=== PATIENT | female | born 1955 | race Caucasian/White ===

== ENCOUNTER 2017-11-06 10:49 | Outpatient (CLI) | payer MEDICARE, MEDICAID, SELFPAY ==
[2017-11-06 11:24] LABS: Abs Immature Grans 0.01 k/cumm (0.0-0.09); Absolute Basophil Count 0.03 k/cumm (0.0-0.2); Absolute Eosinophil Count 0.11 k/cumm (0.0-0.7); Absolute Lymphocyte Count 1.47 k/cumm (1.2-3.4); Absolute Monocyte Count 0.36 k/cumm (0.11-0.7); Absolute Neutrophil Count 2.53 k/cumm (1.2-6.7); Basophils % 0.7; Eosinophils % 2.4; HCT 40.4 % (36.0-46.0); HGB 14.1 g/dL (12.0-15.5); Immature Grans % 0.2; Lymphocytes % 32.6; Mean Corp. HGB Concentration 34.9 g/dL (32.0-36.0); Mean Corpuscular Hemoglobin 35.5 pg (27.0-33.0); Mean Corpuscular Volume 101.8 fL (80-95); Mean Platelet Volume 8.1 fL (8.0-11.0); Neutrophils % 56.1; Platelet Count 237 x1000/uL (130-400); RBC 3.97 m/cumm (4.00-5.20); RBC Distribution Width 12.7 % (11.7-14.6); White Blood Cell Count 4.51 k/cumm (4.4-10.8)
[2017-11-06 12:22] LABS: ALT 20 U/L (12-78); AST 15 U/L (15-37); Albumin 3.5 g/dL (3.4-5.0); Alkaline Phosphatase 80 U/L (46-116); Anion Gap 6.2 mmol/L (3-11); BUN 8 mg/dL (7-18); Bilirubin, Total 0.4 mg/dL (0.2-1.0); CO2 30.8 mmol/L (21.0-32.0); CREATININE 0.75 mg/dL (0.55-1.02); Calcium 8.7 mg/dL (8.5-10.1); Chloride 103 mmol/L (98-107); Glucose 96 mg/dL (70-100); PHOSPHORUS 4.1 mg/dL (2.6-4.7); Sodium 140 mmol/L (136-145); Total Protein 7.1 g/dL (6.4-8.2)
[2017-11-08 08:46] LABS: CD3 93 % (62-87); CD4 10 % (35-63); CD8 84 % (10-35)
[2017-11-09 14:49] LABS: HIV-1 RNA Quantification <20 copies/mL (UNDECT)
== END 2017-11-06 11:09 ==
PROVIDERS: Nurse Practitioner Family; PCP Internal Medicine Sleep Medicine; Visit Provider Internal Medicine Infectious Disease
DX: B20 Human immunodeficiency virus [HIV] disease (principal); Z79.899 Other long term (current) drug therapy
CPT/HCPCS: 36415; 80053; 87536; 84100; 85025; 86359; 86360

== ENCOUNTER 2018-04-12 09:10 | Outpatient (CLI) | payer MEDICARE, MEDICAID, SELFPAY ==
[2018-04-12 10:02] LABS: Abs Immature Grans 0.02 k/cumm (0.0-0.09); Absolute Basophil Count 0.02 k/cumm (0.0-0.2); Absolute Eosinophil Count 0.11 k/cumm (0.0-0.7); Absolute Lymphocyte Count 1.29 k/cumm (1.2-3.4); Absolute Neutrophil Count 3.23 k/cumm (1.2-6.7); Basophils % 0.4; Eosinophils % 2.2; HCT 39.4 % (36.0-46.0); HGB 13.7 g/dL (12.0-15.5); Immature Grans % 0.4; Mean Corp. HGB Concentration 34.8 g/dL (32.0-36.0); Mean Corpuscular Hemoglobin 33.8 pg (27.0-33.0); Mean Corpuscular Volume 97.3 fL (80-95); Mean Platelet Volume 8.8 fL (8.0-11.0); Platelet Count 207 x1000/uL (130-400); RBC 4.05 m/cumm (4.00-5.20); RBC Distribution Width 11.9 % (11.7-14.6); White Blood Cell Count 4.97 k/cumm (4.4-10.8)
[2018-04-12 10:45] LABS: ALT 32 U/L (12-78); AST 37 U/L (15-37); Albumin 3.2 g/dL (3.4-5.0); Alkaline Phosphatase 72 U/L (46-116); Anion Gap 10.6 mmol/L (3-11); BUN 5 mg/dL (7-18); Bilirubin, Total 0.4 mg/dL (0.2-1.0); CO2 27.4 mmol/L (21.0-32.0); CREATININE 0.88 mg/dL (0.55-1.02); Chloride 98 mmol/L (98-107); Cholesterol 184 mg/dL (50-200); Glucose 95 mg/dL (70-100); HDL Cholesterol 49 mg/dL (40-60); LDL CHOLESTEROL 117 mg/dL (<100); Potassium 4.5 mmol/L (3.5-5.1); Sodium 136 mmol/L (136-145); Total Protein 7.5 g/dL (6.4-8.2); Triglyceride 78 mg/dL (30-150)
[2018-04-13 15:39] LABS: CD3 92 % (62-87); CD4 8 % (35-63); CD8 83 % (10-35)
[2018-04-16 15:27] LABS: HIV-1 RNA Quantification 89 copies/mL (UNDECT)
== END 2018-04-12 09:30 ==
PROVIDERS: PCP Internal Medicine Infectious Disease; Visit Provider Internal Medicine Infectious Disease
DX: B20 Human immunodeficiency virus [HIV] disease (principal); Z79.899 Other long term (current) drug therapy
CPT/HCPCS: 36415; 80053; 80061; 83721; 87536; 85025; 86359; 86360

== ENCOUNTER 2018-04-16 14:43 | Outpatient (CLI) | payer MEDICARE, MEDICAID, SELFPAY | END 2018-04-16 15:03 | PROVIDERS: PCP Internal Medicine Infectious Disease; Referring Provider Nurse Practitioner Family; Visit Provider Internal Medicine Infectious Disease | DX: B20 Human immunodeficiency virus [HIV] disease (principal); Z79.899 Other long term (current) drug therapy | CPT/HCPCS: 99215 ==

== ENCOUNTER 2018-06-20 00:47 | Outpatient (CLI) | payer MEDICARE, MEDICAID, SELFPAY ==
--- NOTE | 2018-06-20 13:09 | DI.MAMMO_ITS ---
SYMPTOMS/DIAGNOSIS: SCREENING, Z12.31 MAMMOGRAMS: Mammograms were interpreted according to the usual protocol including computer analysis with CAD system, tomosynthesis and C view imaging. The breast tissue is predominantly of fatty radiodensity. There is no mass. There are no suspicious calcifications and there has been no significant interval change when compared with prior images. SUMMARY: No evidence of malignancy, category 1. Yearly screening mammography is recommended. Breast density category A. MQSA ASSESSMENT OF FINDINGS: Negative. Category 1. Patient will receive a letter notifying them of these results. BI-RAD category A. The breasts are almost entirely fatty.
== END 2018-06-20 01:07 ==
PROVIDERS: PCP Nurse Practitioner; Visit Provider Nurse Practitioner
DX: Z12.31 Encounter for screening mammogram for malignant neoplasm of breast (principal)
CPT/HCPCS: 77063; 77067

== ENCOUNTER 2018-06-26 14:19 | Outpatient (REF) | payer MEDICARE, MEDICAID, SELFPAY ==
--- NOTE | 2018-06-26 13:30 | PAPFT_PTH ---
PATIENT: Josiane Pacheco LOC: [facility] U#:[id number] AGE/SX: 62/F ROOM: RE06/26/[address]: Sarah Alejo APRN : 1955 BED: DIS: 06/26/2018 SPEC #: [id number] RECD: 06/26/18 18:04 STATUS: IVANNA STAPLES #: [id number] STEPH: 06/26/18 13:[address]: Sarah Alejo DEPT: [facility] Cytology RECD BY: Meg Rivera Tissues: 1 - CX/ENDOCX FOR PAP SMEARS Procedures: PAP THIN PREP/UVM Screening HPV DNA PROBE Comments: [id number]
== END 2018-06-26 14:39 ==
LOC: LBN 14:19
PROVIDERS: PCP Nurse Practitioner; Visit Provider Nurse Practitioner
DX: Z12.4 Encounter for screening for malignant neoplasm of cervix (principal); Z11.51 Encounter for screening for human papillomavirus (HPV)
CPT/HCPCS: 88142; 87624

== ENCOUNTER → 2018-08-02 10:17 | Outpatient (BNVA) | payer MEDICARE, MEDICAID, SELFPAY | PROVIDERS: PCP Nurse Practitioner; Referring Provider Nurse Practitioner; Visit Provider Psychiatry & Neurology Neurology | DX: G40.119 Localization-related (focal) (partial) symptomatic epilepsy and epileptic syndromes with simple partial seizures, intractable, without status epilepticus (principal); R51 Headache; G43.109 Migraine with aura, not intractable, without status migrainosus; G44.40 Drug-induced headache, not elsewhere classified, not intractable; G47.00 Insomnia, unspecified | CPT/HCPCS: 99205; 99215 ==

== ENCOUNTER 2018-09-19 09:23 | Outpatient (CLI) | payer MEDICARE, MEDICAID, SELFPAY ==
[2018-09-19 10:12] LABS: HCT 40.4 % (36.0-46.0); HGB 14.5 g/dL (12.0-15.5); Mean Corp. HGB Concentration 35.9 g/dL (32.0-36.0); Mean Corpuscular Hemoglobin 35.2 pg (27.0-33.0); Mean Corpuscular Volume 98.1 fL (80-95); Mean Platelet Volume 9.2 fL (8.0-11.0); Platelet Count 121 x1000/uL (130-400); RBC 4.12 m/cumm (4.00-5.20); RBC Distribution Width 12.3 % (11.7-14.6); White Blood Cell Count 3.28 k/cumm (4.4-10.8)
[2018-09-19 10:29] LABS: Absolute Neutrophil Count 1.54 k/cumm (1.2-6.7); Atypical Lymphocytes % 3
[2018-09-19 10:30] LABS: Absolute Basophil Count 0.03 k/cumm (0.0-0.2); Absolute Eosinophil Count 0.03 k/cumm (0.0-0.7); Absolute Lymphocyte Count 1.41 k/cumm (1.2-3.4); Absolute Monocyte Count 0.26 k/cumm (0.11-0.7); Diff Comment Manual Differential; RBC Morphology Normal
[2018-09-19 11:05] LABS: ALT 74 U/L (12-78); AST 56 U/L (15-37); Albumin 3.6 g/dL (3.4-5.0); Alkaline Phosphatase 73 U/L (46-116); Anion Gap 10.5 mmol/L (3-11); BUN 9 mg/dL (7-18); Bilirubin, Total 0.5 mg/dL (0.2-1.0); CO2 24.5 mmol/L (21.0-32.0); CREATININE 0.85 mg/dL (0.55-1.02); Calculated LDL 100 mg/dL; Chloride 99 mmol/L (98-107); Cholesterol 180 mg/dL (50-200); Glucose 96 mg/dL (70-100); HDL Cholesterol 70 mg/dL (40-60); Potassium 4.3 mmol/L (3.5-5.1); Sodium 134 mmol/L (136-145); Total Protein 7.1 g/dL (6.4-8.2); Triglyceride 53 mg/dL (30-150)
[2018-09-19 11:24] LABS: Calcium 8.6 mg/dL (8.5-10.1)
[2018-09-20 16:17] LABS: HIV-1 RNA Quantification 3109 copies/mL (UNDECT)
[2018-09-21 07:41] LABS: CD3 92 % (62-87); CD4 5 % (35-63); CD8 85 % (10-35)
== END 2018-09-19 09:43 ==
PROVIDERS: PCP Nurse Practitioner; Referring Provider Nurse Practitioner Family; Visit Provider Internal Medicine Infectious Disease
DX: B20 Human immunodeficiency virus [HIV] disease (principal); Z79.899 Other long term (current) drug therapy
CPT/HCPCS: 36415; 80053; 80061; 83721; 87536; 85025; 86359; 86360

== ENCOUNTER 2018-09-24 09:49 | Outpatient (CLI) | payer MEDICARE, MEDICAID, SELFPAY | END 2018-09-24 10:09 | PROVIDERS: PCP Nurse Practitioner; Referring Provider Nurse Practitioner Family; Visit Provider Internal Medicine Infectious Disease | DX: B20 Human immunodeficiency virus [HIV] disease (principal); Z79.899 Other long term (current) drug therapy | CPT/HCPCS: 99215 ==

== ENCOUNTER 2018-10-01 08:41 | Outpatient (CLI) | payer MEDICARE, MEDICAID, SELFPAY ==
[2018-10-06 15:35] LABS: Emitricitabine RESIST; HIV-1 Genotypic PR-RT Drug Res INTERP; Lopinavir and Ritonavir SUSC; Tipranavir andRitonavir SUSC
== END 2018-10-01 09:01 ==
PROVIDERS: PCP Nurse Practitioner; Visit Provider Nurse Practitioner Family
DX: B20 Human immunodeficiency virus [HIV] disease (principal); Z79.899 Other long term (current) drug therapy
CPT/HCPCS: 36415; 87901

== ENCOUNTER 2018-10-15 11:06 | Outpatient (CLI) | payer MEDICARE, MEDICAID, SELFPAY | END 2018-10-15 11:26 | PROVIDERS: PCP Nurse Practitioner; Referring Provider Nurse Practitioner Family; Visit Provider Nurse Practitioner Family | DX: B20 Human immunodeficiency virus [HIV] disease (principal); Z79.899 Other long term (current) drug therapy; R13.10 Dysphagia, unspecified | CPT/HCPCS: 99215 ==

== ENCOUNTER → 2018-11-15 14:09 | Outpatient (BNVA) | payer MEDICARE, MEDICAID, SELFPAY | PROVIDERS: PCP Nurse Practitioner; Visit Provider Psychiatry & Neurology Neurology | DX: G40.119 Localization-related (focal) (partial) symptomatic epilepsy and epileptic syndromes with simple partial seizures, intractable, without status epilepticus (principal); G43.109 Migraine with aura, not intractable, without status migrainosus; G44.40 Drug-induced headache, not elsewhere classified, not intractable; G31.84 Mild cognitive impairment of uncertain or unknown etiology | CPT/HCPCS: 99215 ==

== ENCOUNTER 2019-03-27 10:53 | Outpatient (CLI) | payer MEDICARE, MEDICAID, SELFPAY ==
[2019-03-27 11:36] LABS: Absolute Basophil Count 0.01 k/cumm (0.0-0.2); Absolute Eosinophil Count 0.06 k/cumm (0.0-0.7); Absolute Lymphocyte Count 1.04 k/cumm (1.2-3.4); Absolute Monocyte Count 0.22 k/cumm (0.11-0.7); Absolute Neutrophil Count 1.63 k/cumm (1.2-6.7); Basophils % 0.3; HGB 14.3 g/dL (12.0-15.5); Lymphocytes % 35.1; Mean Corp. HGB Concentration 34.9 g/dL (32.0-36.0); Mean Corpuscular Volume 100.2 fL (80-95); Mean Platelet Volume 8.9 fL (8.0-11.0); Monocytes % 7.4; Neutrophils % 55.2; Platelet Count 128 x1000/uL (130-400); RBC 4.09 m/cumm (4.00-5.20); RBC Distribution Width 13.3 % (11.7-14.6); White Blood Cell Count 2.96 k/cumm (4.4-10.8)
[2019-03-27 12:41] LABS: ALT 33 U/L (14-59); AST 31 U/L (15-37); Albumin 3.5 g/dL (3.4-5.0); Alkaline Phosphatase 65 U/L (46-116); Anion Gap 8.1 mmol/L (3-11); BUN 9 mg/dL (7-18); Bilirubin, Total 0.5 mg/dL (0.2-1.0); CO2 26.9 mmol/L (21.0-32.0); CREATININE 0.94 mg/dL (0.55-1.02); Calcium 8.6 mg/dL (8.5-10.1); Chloride 105 mmol/L (98-107); Glucose 108 mg/dL (74-106); Sodium 140 mmol/L (136-145); Total Protein 6.6 g/dL (6.4-8.2)
[2019-03-28 15:56] LABS: HIV-1 RNA Quantification 3939 copies/mL (Undetected)
[2019-03-28 16:52] LABS: CD3 92 % (62-87); CD4 6 % (35-63); CD8 85 % (10-35)
== END 2019-03-27 11:13 ==
PROVIDERS: PCP Nurse Practitioner; Visit Provider Internal Medicine Infectious Disease
DX: B20 Human immunodeficiency virus [HIV] disease (principal); Z79.899 Other long term (current) drug therapy
CPT/HCPCS: 36415; 80053; 87536; 85025; 86359; 86360

== ENCOUNTER 2019-04-01 09:45 | Outpatient (CLI) | payer MEDICARE, MEDICAID, SELFPAY | END 2019-04-01 10:05 | PROVIDERS: PCP Nurse Practitioner; Referring Provider Nurse Practitioner Family; Visit Provider Internal Medicine Infectious Disease | DX: B20 Human immunodeficiency virus [HIV] disease (principal); Z79.899 Other long term (current) drug therapy | CPT/HCPCS: 99215 ==

== ENCOUNTER → 2019-04-22 14:52 | Outpatient (BNVA) | payer MEDICARE, MEDICAID, SELFPAY | PROVIDERS: PCP Nurse Practitioner; Referring Provider Nurse Practitioner; Visit Provider Psychiatry & Neurology Neurology | DX: G40.119 Localization-related (focal) (partial) symptomatic epilepsy and epileptic syndromes with simple partial seizures, intractable, without status epilepticus (principal); G43.109 Migraine with aura, not intractable, without status migrainosus; G44.40 Drug-induced headache, not elsewhere classified, not intractable; G47.00 Insomnia, unspecified; G31.84 Mild cognitive impairment of uncertain or unknown etiology | CPT/HCPCS: 99214 ==

== ENCOUNTER 2019-08-29 02:12 | Outpatient (CLI) | payer MEDICARE, MEDICAID, SELFPAY ==
[2019-08-29 10:07] LABS: Absolute Basophil Count 0.01 k/cumm (0.0-0.2); Absolute Eosinophil Count 0.04 k/cumm (0.0-0.7); Absolute Lymphocyte Count 1.26 k/cumm (1.2-3.4); Absolute Monocyte Count 0.22 k/cumm (0.11-0.7); Absolute Neutrophil Count 2.41 k/cumm (1.2-6.7); Basophils % 0.3; HCT 39.1 % (36.0-46.0); HGB 13.4 g/dL (12.0-15.5); Mean Corp. HGB Concentration 34.3 g/dL (32.0-36.0); Mean Corpuscular Hemoglobin 34.8 pg (27.0-33.0); Mean Corpuscular Volume 101.6 fL (80-95); Mean Platelet Volume 9.7 fL (8.0-11.0); Monocytes % 5.6; Neutrophils % 61.1; Platelet Count 136 x1000/uL (130-400); RBC 3.85 m/cumm (4.00-5.20); RBC Distribution Width 13.4 % (11.7-14.6); White Blood Cell Count 3.94 k/cumm (4.4-10.8)
[2019-08-29 11:07] LABS: ALT 32 U/L (14-59); AST 47 U/L (15-37); Albumin 3.3 g/dL (3.4-5.0); Alkaline Phosphatase 69 U/L (46-116); Anion Gap 11.1 mmol/L (3-11); BUN 6 mg/dL (7-18); Bilirubin, Total 0.5 mg/dL (0.2-1.0); CO2 24.9 mmol/L (21.0-32.0); CREATININE 1.04 mg/dL (0.55-1.02); Calcium 8.9 mg/dL (8.5-10.1); Chloride 105 mmol/L (98-107); Estimated GFR 53.69 (mL/min/1.73m2); Glucose 95 mg/dL (74-106); Potassium 3.8 mmol/L (3.5-5.1); Sodium 141 mmol/L (136-145); Total Protein 6.4 g/dL (6.4-8.2)
[2019-08-29 11:12] LABS: Vitamin D 25 Total 7.1 ng/ml (30-100)
[2019-08-29 11:13] LABS: Folate 2.6 ng/mL (8.6-20.0); TSH (W/Ref FT4) 2.06 uIU/mL (0.36-3.74); Vitamin B12 243 pg/mL (193-986)
[2019-08-31 12:11] LABS: CD3 90 % (62-87); CD4 4 % (35-63); CD8 86 % (10-35)
[2019-09-02 14:31] LABS: HIV 1 RNA Qualitative Detected (Undetected); HIV 1 RNA Quantitative 28814 copies/mL (Undetected)
[2019-09-03 09:11] LABS: Methylmalonic Acid 0.34 nmol/mL (<=0.40)
== END 2019-08-29 02:32 ==
PROVIDERS: Psychiatry & Neurology Neurology; PCP Nurse Practitioner; Visit Provider Nurse Practitioner Family
DX: B20 Human immunodeficiency virus [HIV] disease; Z79.899 Other long term (current) drug therapy; F32.9 Major depressive disorder, single episode, unspecified; G40.119 Localization-related (focal) (partial) symptomatic epilepsy and epileptic syndromes with simple partial seizures, intractable, without status epilepticus; G31.84 Mild cognitive impairment of uncertain or unknown etiology
CPT/HCPCS: 36415; 80053; 80186; 82306; 87536; 82607; 82746; 84443; 85025; 86359; 86360

== ENCOUNTER 2019-11-08 15:51 | Outpatient (CLI) | payer MEDICARE, MEDICAID, SELFPAY ==
--- NOTE | 2019-11-08 16:46 | CCCE_ITS ---
Date of service: 11/08/19 Time of Service: 15:46 Comprehensive Care Clinic Note Note: [facility] [address] [place] [address] [facility] Visit for Medical Follow Up Name: Josiane Pacheco Medical Record [id number] Date of : 1955 Primary Care Provider: MAURICIO Date of Service: 11/08/2019 SUBJECTIVE CC/ HPI: Josiane has been HIV positive since 1990 and on numerous medication regimens with switches done, not for resistance reasons, but interactions with her seizure medications. On a few occasions she has have drug resistance testing done due to an increasing viral load. There would be no resistances? and the assumption was that she was not taking the meds as prescribed. She says she has had years of difficulty swallowing pills, this is a long standing problem and has not been able to swallow the medications consistently once again for over a year. This severe dysphasia has been present since her craniotomy years ago done to help control a severe seizure disorder. She has seen GI and has had 2 esophageal dilatations done, both of which she feels made it worse. In 2017, Dr. Hopkins switched her medications from large tablets to smaller tablets (dolutegravir 50mg/d & tenofovir alafenamide 25 mg/d) and liquid ( lamuvadine 10mg/ml, 15 ml/d) combination. In the beginning she was able to take these and she had an undetectable viral load. For the past year her viral load has been increasing. Dr. Myers wants to switch her to an all liquid regimen but she needs to have blood work done prior to this. Special testing has been set up between [facility] lab and [facility] lab so processing of the specimens can be done properly. Josiane also needs an influenza vaccine administered today and she is up to date with other vaccines. ROS She states she is tired a lot of the time but otherwise feels well. She does not think she has lost any more weight. She denies fever, chills, night sweats, and anorexia. States she frequently vomits back up the pills and other food too ?if I don?t drink something first and wait to be sure it is going to go down. Then sometimes it comes back up anyway.? She also is having some ongoing weakness in her legs, denies falling. Allergies/Sensitivities: NKDA Current Medications: As in HPI and her seizure medications. She says she is starting an antidepressant through her PCP. Family History Update: Nothing new Immunization to be given today ? flu vaccine Health Maintenance: seeing PCP regularly now OBJECTIVE Weight: 171# at PCP on 10/30/2019, Temp: 98.0, Pulse: 78, Resp: 14, Blood Pressure: 122/78 General: Well appearing, moving with ease Skin: WD, clear Eyes: non icteric Psychiatric: - appearance: well kempt - eye contact: good - attitude: cooperative - speech: clear with usual halting aki - affect: normal - mood: depressed - memory: grossly intact - motor activity: no tremor, gait steady - orientation: intact - attention: good ASSESSMENT/PLAN HIV/AIDS ? inconsistent medication administration due to severe dysphagia - e sophageal stricture vs. impaired motility syndrome S/P craniotomy MD visit scheduled: will be in November but medication change may take place before that. Lab work ordered: HIV viral Load, Integrase Inhibitor genotype and tropism assay (to see if Maraviroc liquid can be taken) The [facility] lab has been contacted by the [facility] lab and knows the proper processing for these tests. Josiane has an appointment for 11/12/2019 at 2:30pm for the blood draw. [facility] is aware to be on the lookout for these samples to be packaged and sent to [place] and [place]. Provider of Care: Brittanie Pina, MSN, C[employer] ON DELIVERY CLERK
== END 2019-11-08 16:11 ==
PROVIDERS: PCP Nurse Practitioner; Visit Provider Nurse Practitioner Family
DX: B20 Human immunodeficiency virus [HIV] disease (principal); R13.10 Dysphagia, unspecified

== ENCOUNTER 2019-11-12 03:09 | Outpatient (CLI) | payer MEDICARE, MEDICAID, SELFPAY ==
[2019-11-14 15:27] LABS: HIV 1 RNA Qualitative Detected copies/mL (Undetected); HIV 1 RNA Quantitative 18437 copies/mL (Undetected)
[2019-11-27 09:48] LABS: Misc Referral (MAYO) See Comments
[2019-12-09 10:22] LABS: Activity of CCR5 antag anticp? No
== END 2019-11-12 03:29 ==
PROVIDERS: PCP Nurse Practitioner; Visit Provider Internal Medicine Infectious Disease
DX: B20 Human immunodeficiency virus [HIV] disease (principal)
CPT/HCPCS: 36415; 87536; 87906; 87999

== ENCOUNTER → 2019-12-17 09:50 | Outpatient (BNVA) | payer MEDICARE, MEDICAID, SELFPAY | PROVIDERS: PCP Nurse Practitioner; Referring Provider Nurse Practitioner; Visit Provider Psychiatry & Neurology Neurology | DX: G40.119 Localization-related (focal) (partial) symptomatic epilepsy and epileptic syndromes with simple partial seizures, intractable, without status epilepticus (principal); G43.109 Migraine with aura, not intractable, without status migrainosus; G44.40 Drug-induced headache, not elsewhere classified, not intractable; G47.00 Insomnia, unspecified; G31.84 Mild cognitive impairment of uncertain or unknown etiology; R13.10 Dysphagia, unspecified | CPT/HCPCS: 99214 ==

== ENCOUNTER → 2020-01-20 09:09 | Outpatient (BNVA) | payer MEDICARE, MEDICAID, SELFPAY | PROVIDERS: PCP Nurse Practitioner; Referring Provider Nurse Practitioner; Visit Provider Psychiatry & Neurology Neurology | DX: G40.119 Localization-related (focal) (partial) symptomatic epilepsy and epileptic syndromes with simple partial seizures, intractable, without status epilepticus (principal); G43.109 Migraine with aura, not intractable, without status migrainosus; G44.40 Drug-induced headache, not elsewhere classified, not intractable; G31.84 Mild cognitive impairment of uncertain or unknown etiology; R13.10 Dysphagia, unspecified; G47.00 Insomnia, unspecified | CPT/HCPCS: 99213; 99442 ==

== ENCOUNTER 2020-03-11 12:41 | Observation (INO) | payer MEDICARE, MEDICAID, SELFPAY ==
[2020-03-11] VITALS (18 sets, daily range): BP systolic 96–130; BP diastolic 60–91; PULSE 62–78; RESP 11–25; TEMP 36–37.5; O2SAT 94–100
--- NOTE | 2020-03-11 12:30 | RT.EKG_ITS ---
APPROVED REPORT Exam: Resting ECG Patient Location: E HR:68 bpm ECG Measurements Heart Rate 68 AXIS IL 146 P 38 QRSd 98 QRS 6 QT 422 T 46 QTc 450 Conclusion Sinus rhythm. Low voltage Nonspecific ST changes
--- NOTE | 2020-03-11 12:45 | DI.CT_ITS ---
EXAM: CT CHEST/ABD/PEL W CLINICAL HISTORY: Weakness, Cough, abd pain. TECHNIQUE: Imaging Protocol: Axial computed tomography images with coronal and sagittal reformatted images were created and reviewed CONTRAST MATERIAL: Intravenous: Omnipaque 350 Contrast volume:100 ml Oral: None COMPARISON: No exams were available for comparison FINDINGS: CHEST: LUNGS: No infiltrates nor pleural effusions. No ominous pulmonary nodules.. MEDIASTINUM: There is no hilar nor mediastinal adenopathy. Visualized thyroid unremarkable. CARDIAC: Heart size is normal. There is no pericardial effusion.Caliber of the thoracic aorta is wit hin normal limits. OSSEOUS: No significant osseous lesions.. ABDOMEN: There is no ascites. LIVER: There are no focal hepatic lesions nor dilatation of intrahepatic ducts. GALLBLADDER/BILIARY: Gallbladder surgically absent CBD is not dilated. PANCREAS: No evidence of pancreatic mass nor dilatation of the pancreatic duct. SPLEEN: Spleen is not enlarged. There are no intrasplenic lesions. Splenic and portal veins are hatfield nt. ADRENALS: There are no significant adrenal masses. KIDNEYS: Left kidney is unremarkable.. There is an exophytic cyst off the inferior pole of right kidn ey which measures 2.4 by 1.5 centimetres. ABDOMINAL AORTA: Abdominal aorta is not enlarged and there is no [id number]-[id number] adenopat hy. ABDOMINAL WALL/GI: No evidence of significant anterior abdominal wall hernia. No bowel obstruction. PELVIS: LYMPH NODES: There is no intrapelvic nor inguinal adenopathy. GI: There is evidence of right hemicolectomy.There is extensive sigmoid diverticulosis. There is also abnormal circumferential thickening of the rectosigmoid with wall thickness 1 centimeter. Either melia plastic versus inflammatory. This is over a length of bowel approximately 6 centimetres. URINARY BLADDER: There is air seen in the urinary bladder. REPRODUCTIVE: Age-appropriate OSSEOUS: No significant osseous lesions. There is degenerative anterolisthesis of L4 upon L5 by approximately 1 centimeter slippage anterior L 4 upon L5 IMPRESSION: 1. There has been previous right hemicolectomy. 2. There is abnormal thickening of the recto sigmoid wall over distance of approximately 6 centimeter s. This is in addition to extensive sigmoid diverticulosis. Possibly superimposed colitis pattern alka kelton neoplasm in addition to extensive diverticulosis. 3. Gallbladder surgically absent. Biliary tree is not dilated. 4. 2.4 centimeters cyst in the right kidney exophytic off the inferior pole. RADIATION DOSE DELIVERED: 851.67mGy.cm Total DLP DATA REPOSITORY: All CT scans at this facility are submitted to the National Radiology Data Registry (NRDR) Dose Index Registry (DIR) with the [employer] (ACR). RADIATION OPTIMIZATION: All CT scans at this facility use at least one of these dose optimization te chniques: automated exposure control; mA and/or kV adjustment per patient size (includes targeted exa ms where dose is matched to clinical indication); or iterative reconstruction.
--- NOTE | 2020-03-11 12:58 | ED.GENADUL_ITS ---
Discharge Plan Disposition Patient Disposition: [facility] INPATIENT Condition: Stable Discharge Details Clinical Impression: Electrolyte depletion, Pancytopenia, Colitis, acute Admit Date/Time: 03/11/20 15:24 Admit Provider: Fabio Curiel Attending Provider: Fabio Curiel Primary Care Provider: Sarah Alejo ED Provider: Bhumi Rodríguez Medical Decision Making 64-year-old female presents to the ED via EMS with a chief complaint of increased weakness, diarrhea and vomiting. She has progressive difficulty performing ADLs due to the weakness. Patient does have a past medical history of HIV, migraine, hyperlipidemia, esophageal strictures, depression, seizures and anxiety. Patient reports being incontinent of stool, watery diarrhea. She reports that her whole body hurts. She does endorse abdominal pain and knee pain. She states that she has intermittent shortness of breath and a cough with productive clarke phlegm. She denies being on any antibiotics in the last 3 months. On initial exam she is alert and oriented, she does appear sickly but nonseptic. 1330: Critical potassium level obtained from lab, serum Potassium is 2.7. CBC shows pancytopenia which has been new since last 6 months. Her white blood cell count is 2.11, RBCs 2.55 hemoglobin is 9.0, hematocrit 20.4 platelets are 110. Lactate is 1.6, sodium 140, potassium 2.7, anion gap 11.2 magnesium is 1.5 urine shows trace protein trace ketones and small bilirubin. No leukocytes or nitrites. Culture is pending at this time. 1 g magnesium and 20 mEq potassium ordered IV piggyback. Patient has received 1 L of lactated Ringer's and normal saline at 250 an hour to go with the potassium infusion. CT chest abdomen pelvis with contrast: IMPRESSION: 1. There has been previous right hemicolectomy. 2. There is abnormal thickening of the recto sigmoid wall over distance of approximately 6 centimeters. This is in addition to extensive sigmoid diverticulosis. Possibly superimposed colitis pattern versus neoplasm in addition to extensive diverticulosis. 3. Gallbladder surgically absent. Biliary tree is not dilated. 4. 2.4 centimeters cyst in the right kidney exophytic off the inferior pole. Discussed CT results with patient and plan for admission she verbalized understanding and is agreeable with the plan of care. She does not feel well enough at this time to go home. Only abdominal surgery that patient reports is a cholecystectomy. No history in medical records found for a colectomy. 1510: Hospitalist paged. 1520: Spoke with Dr. Curiel who agrees to accept patient for admission. Patient hemodynamically stable at the time of this dictation. HPI General Mode of arrival: EMS . Date/Time Provider Initiated Documentation: 03/11/20 12:43 . Limitations to Documentation: no limitations . Information obtained by: patient . HPI Narrative: 64-year-old female presents to the ED via EMS with a chief complaint of increased weakness, diarrhea and vomiting. She has progressive difficulty performing ADLs due to the weakness. Patient does have a past medical history of HIV, migraine, hyperlipidemia, esophageal strictures, depression, seizures and anxiety. Patient reports being incontinent of stool, watery diarrhea. She reports that her whole body hurts. She does endorse abdominal pain and knee pain. She states that she has intermittent shortness of breath and a cough with productive clarke phlegm. She denies being on any antibiotics in the last 3 months. On initial exam she is alert and oriented, she does appear sickly but nonseptic. Related Data Home Medications Medication Instructions Recorded Confirmed lamivudine 10 mg/mL oral solution 150 mg PO BID ml 01/20/20 03/11/20 multivitamin with iron 1 tab PO DAILY 01/20/20 03/11/20 omeprazole 20 mg capsule,delayed 20 mg PO DAILY 01/20/20 03/11/20 release sulfamethoxazole 200 10 ml PO DAILY ml 01/20/20 03/11/20 mg-trimethoprim 40 mg/5 mL oral suspension tenofovir alafenamide 25 mg tablet 25 mg PO DAILY 01/20/20 03/11/20 clonazepam 1 mg disintegrating 1 mg PO BID #60 tab NS 02/24/20 03/11/20 tablet hydroxyzine HCl 25 mg PO TID 03/11/20 03/11/20 lacosamide [Vimpat] 50 mg PO BID 03/11/20 03/11/20 Previous Rx's Medication Instructions Recorded clonazepam 1 mg disintegrating 1 mg PO BID #60 tab NS 02/24/20 tablet Allergies Allergy/AdvReac Type Severity Reaction Status Date / Time topiramate Allergy Intermediate rash, Verified 03/11/20 12:44 itching lamotrigine [From Lamictal] AdvReac Intermediate dizzy, Verified 03/11/20 12:44 double vision General Stated Complaint: Nausea/Vomit/Diar FANNY: 3 Review of Systems Narrative: Constitutional: alert and oriented, well groomed, thin body habitus, appears sickly. HEENT: Denies trauma, headaches, blurry vision, nasal discharge, sore throat, trouble swallowing. Chest: Denies chest pain, palpitations, irregular rhythm, hypertension. Respiratory: Denies hemoptysis. Positive shortness of breath and cough. GI: Denies constipation. Positive abdominal pain, nausea vomiting, incontinent of stool with diarrhea. : Denies dysuria, hematuria, flank pain, rectal bleeding. Neuro: Denies dizziness, blurry vision, syncope, headache or facial numbness. Hematologic: Denies easy bruising, intolerance to heat or cold, hair loss. [facility] Medical History Anxiety Chronic headache Colon polyposis Depression Focal epilepsy with impairment of consciousness, intractable Gastroesophageal reflux disease with esophagitis (02/10/12) LA grade D esophagitis Upper GI ednoscopy 06/23/15 at [facility] 07/31/15-[facility] upper GI endoscopy-benign appearing esophageal stenosis 01/14/20-Upper GI endoscopy-biopsies taken HH (hiatus hernia) (10/16/15) Dr Ramesh Johnson, [facility] 02/05/20 [facility] 4 cm by UGI Human immunodeficiency virus infection (02/26/90) Dr. Antony Myers, DO, [facility] Hx of meningitis Hyperlipidemia Hyperlipidemia (02/10/12) Insomnia Medication overuse headache Migraine headache with aura Pruritus Rosacea (07/17/12) dr lopez Seizures, generalized convulsive Temporal sclerosis Vitamin D deficiency Surgical History Colonoscopy - MAC (12/09/13) per Dr. Wren , hemorroids banded, 3 polyps biopsied Endoscopy (10/16/15) Dr Ramesh Johnson [facility] S/P brain surgery Family History Sister Headache Social History Smoking/Tobacco Use Status: Current every day Tobacco Type: cigarettes Tobacco: How many years used: 45 Smoking risk assessment performed?: Yes Alcohol Intake: former Details: 2-3 beers a week, when socializing Drug use: Never Substance use type: does not use Details: smokes 4 packs per week no alcohol for over 3 months Household members: none and other Details: Number of Children: 1 current occupation: disabled Sexually active: Yes Do you think of yourself as: straight/heterosexual What type of physical activity do you participate in: walking and weight lifting Seatbelt use: always Helmet use: Yes Drive intox or ride w/intox light truck driver: No Water heater temp set <120 deg: Yes Working smoke detector in home: Yes Fire extinguisher in home: Yes Carbon monox detector in home: Yes Firearms in home: No Do you feel safe at home: No Do you feel safe in your relationship?: Yes Additional Social history: lives alone on the 3rd floor - unable to navigate stairs due to weakness and legs hurt and are wobbly Exam Narrative Exam Narrative: Constitutional: Alert and oriented x3. Appears older than stated age. Skin body habitus. Appears dry and sickly. Head: Normocephalic, no trauma. Eyes: Pupils PERRLA, Red reflex noted, EOM's intact. Eyelids symmetrical without lesions, discharge, or swelling. ENT: Bilateral TM's WNL, External ear normal to inspection, no mastoid TTP, swelling, or erythema, Nasal turbinates WNL, no nasal discharge. Normal dentition, Posterior pharynx WNL, no exudate. Smooth tongue. No lesions. Chest: RRR, Normal S1, S2, distal pulses intact. Resp: Lungs clear to auscultation bilaterally, no wheezes, rales, or rhonchi. Abdomen: Soft, nondistended generalized tenderness all 4 quadrants. Musculoskeletal: Unable to assess gait. No focal neuro deficits noted. Skin: Capillary refill less than 2 sec. no edema noted to bilateral lower extremities. Neurologic: Cranial nerves II-XII intact. Alert and oriented x 3. DTR's intact. Hematologic/Lymphatic: No ecchymosis, no lymphadenopathy. Course Vital Signs Vital signs: Vital Signs Temperature 36.7 C 03/11/20 12:37 Pulse 78 03/11/20 12:37 Blood Pressure 113/69 03/11/20 12:37 Pulse Oximetry 100 03/11/20 12:37 Temperature 36.7 C 03/11/20 12:37 Temperature Source Skin 03/11/20 12:37 Pulse 78 03/11/20 12:37 Blood Pressure 113/69 03/11/20 12:37 Blood Pressure Position Supine 03/11/20 12:37 Pulse Oximetry 100 03/11/20 12:37 Oxygen Delivery Method Room Air 03/11/20 12:37 Oxygen Flow Rate 0 03/11/20 12:37 Pain Level 9 03/11/20 12:37 Procedures Stool Hemoccult Procedural Steps Taken: stool placed in appropriate test area, developer placed on stool and control areas and controls appropriately positive and negative Hemoccult result: negative
[2020-03-11] MEDS: Normal Saline Flush 10 ML SYR IVP ×2 (13:00→15:37)
[2020-03-11 13:04] LABS: Lactate 1.6 mmol/L (0.6-1.4)
[2020-03-11 13:06] LABS: Abs Immature Grans 0.01 10^3/uL (0.0-0.06); Absolute Eosinophil Count 0.01 10^3/uL (0.0-0.7); Absolute Lymphocyte Count 0.37 10^3/uL (1.2-3.4); Absolute Monocyte Count 0.17 10^3/uL (0.1-0.8); Absolute Neutrophil Count 1.55 10^3/uL (1.2-6.7); Eosinophils % 0.5; HCT 26.4 % (36.0-46.0); Immature Grans % 0.5; Lymphocytes % 17.5; MCH 35.3 pg (27.0-33.0); MCHC 34.1 % (32.0-36.0); MCV 103.5 fL (80-95); Monocytes % 8.1; Neutrophils % 73.4; Nucleated RBC 0 %; Platelet Count 110 10^3/uL (130-400); RBC 2.55 10^6/uL (3.93-5.22); RDW 17.1 % (11.7-14.6); RDW-SD 65.8 fL; WBC 2.11 10^3/uL (4.4-10.8)
[2020-03-11] MEDS: Lactated Ringers 1,000 ML 1000 ML IV (13:10)
[2020-03-11 13:25] LABS: ALT 20 U/L (14-59); AST 25 U/L (15-37); Albumin 2.5 g/dL (3.4-5.0); Alkaline Phosphatase 42 U/L (46-116); Anion Gap 11.2 mmol/L (3-11); BUN 10 mg/dL (7-18); Bilirubin, Total 0.6 mg/dL (0.2-1.0); CO2 26.8 mmol/L (21.0-32.0); CREATININE 0.94 mg/dL (0.55-1.02); Calcium 8.5 mg/dL (8.5-10.1); Chloride 102 mmol/L (98-107); Glucose 88 mg/dL (74-106); Magnesium 1.5 mg/dL (1.8-2.4); Sodium 140 mmol/L (136-145); Total Protein 5.7 g/dL (6.4-8.2)
[2020-03-11 13:29] LABS: Troponin I < 0.05 ng/mL (<0.06)
[2020-03-11 13:30] LABS: Potassium 2.7 mmol/L (3.5-5.1)
[2020-03-11] MEDS: Omnipaque 350 MG/ML 100 ML BTL IJ (13:51)
[2020-03-11 13:52] LABS: Bilirubin Small (Negative); Blood Negative (Negative); Clarity Clear (Clear); Glucose Negative (Negative); Ketones Trace mg/dL (Negative); Leukocyte Esterase Negative (Negative); Nitrite Negative (Negative); Specific Gravity 1.015 (1.005-1.025); Urobilinogen 0.2 EU/dL (Up TO 0.2)
[2020-03-11 13:59] LABS: Bacteria Few HPF (Negative); Casts Negative LPF (Negative); Crystals Negative HPF (Negative); Epithelial Cells Rare HPF (Negative); Mucus Trace (Negative); RBC 0-2 HPF (0-2)
[2020-03-11 14:00] LABS: C & S Indicated? Yes; WBC 0-2 HPF (0-5)
[2020-03-11] MEDS: Normal Saline - Diluent 50 ML VIAL IV (14:01)
[2020-03-11] MEDS: MAGNESIUM SULFATE 1 GM/100 ML BAG IVPB (14:25)
[2020-03-11] MEDS: Normal Saline 1,000 ML 1000 ML IV (14:30)
[2020-03-11] MEDS: POTASSIUM CHLORIDE 20 MEQ/100 ML BAG 50 MEQ IVPB (15:25)
--- NOTE | 2020-03-11 15:27 | W.PM.HP.N ---
Date of service: 03/11/20 Time of Service: 15:27 Assessment and Plan Assessment and plan (1) Electrolyte depletion: Status: Acute Assessment and plan: refer to observation. from GI losses. replete and follow stool sampling ordered surgical consult placed (2) Pancytopenia: Status: Acute Assessment and plan: new since August 2019. (3) Human immunodeficiency virus infection: Status: Acute Assessment and plan: continue home medication, after pharmacy review patient has not been filling prescription over the past month. is followed by Dr Antony Myers [phone] (4) Focal epilepsy with impairment of consciousness, intractable: Status: Chronic Assessment and plan: stable, continue home medication discussed with DR Curiel History of Present Illness History of Present Illness Chief Complaint: generalized weakness Narrative: presents to ED by EMS for months of chronic nausea, diarrhea and weakness worsening. work up shows hypokalemia, hypomagnesiumia, pancytopenia and CT shows thickening of the rectosigmoid. she is being referred to observation for electrolyte replacement Review of Systems All systems reviewed & are unremarkable except as noted in HPI and below Constitutional Constitutional: Reports anorexia, Reports malaise, Reports poor appetite and Reports weakness ENT Ears, Nose, Mouth, and Throat: Reports dysphagia Cardiovascular Cardiovascular: Denies chest pain and Denies dyspnea Respiratory Respiratory: Denies cough and Denies dyspnea Gastrointestinal Gastrointestinal: Reports abdominal pain, Reports dysphagia, Reports diarrhea, Reports nausea and Reports vomiting Genitourinary Genitourinary: Reports difficulty voiding Integumentary/Breasts Skin/Breast: Denies rash Neurologic Neurologic: Reports weakness [facility] Medical History Anxiety Chronic headache Colon polyposis Depression Focal epilepsy with impairment of consciousness, intractable Gastroesophageal reflux disease with esophagitis (02/10/12) [place] grade D esophagitis [place]oscopy 06/23/15 [place] [facility] [place] [place] GI endoscopy-benign appearing esophageal stenosis 01/14/20-Upper GI endoscopy-biopsies taken HH (hiatus hernia) (10/16/15) Dr Ramesh Johnson, [facility] [place]05[place]20 [facility] [place] [facility] [place] 4 cm by UGI Human immunodeficiency virus infection (02/26/90) Dr. Antony Myers, DO, [facility] ID Hx of meningitis Hyperlipidemia Hyperlipidemia (02/10/12) Insomnia Medication overuse headache Migraine headache with aura Pruritus Rosacea (07/17/12) dr lopez Seizures, generalized convulsive Temporal sclerosis Vitamin D deficiency Surgical History Colonoscopy - MAC (12/09/13) per Dr. Wren , hemorroids banded, 3 polyps biopsied Endoscopy (10/16/15) Dr Ramesh Johnson [facility] [place] S/P brain surgery Family History Sister Headache Social History Smoking/Tobacco Use Status: Current every day Tobacco Type: cigarettes Tobacco: How many years used: 45 Smoking risk assessment performed?: Yes Alcohol Intake: former Details: 2-3 beers a week, when socializing Drug use: Never Substance use type: does not use Details: smokes 4 packs per week no alcohol for over 3 months Household members: none and other Details: Number of Children: 1 current occupation: disabled Sexually active: Yes Do you think of yourself as: straight/heterosexual What type of physical activity do you participate in: walking and weight lifting Seatbelt use: always Helmet use: Yes Drive intox or ride w/intox box truck 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: No Water heater temp set <120 deg: Yes Working smoke detector in home: Yes Fire extinguisher in home: Yes Carbon monox detector in home: Yes Firearms in home: No Do you feel safe at home: No Do you feel safe in your relationship?: Yes Additional Social history: lives alone on the 3rd floor - unable to navigate stairs due to weakness and legs hurt and are wobbly Meds Home Medications and Allergies Home Medications Medication Instructions Recorded Confirmed Type lamivudine 10 mg/mL oral solution 150 mg PO BID ml 01/20/20 03/11/20 History multivitamin with iron 1 tab PO DAILY 01/20/20 03/11/20 History omeprazole 20 mg capsule,delayed 20 mg PO DAILY 01/20/20 03/11/20 History release sulfamethoxazole 200 10 ml PO DAILY ml 01/20/20 03/11/20 History mg-trimethoprim 40 mg/5 mL oral suspension clonazepam 1 mg disintegrating 1 mg PO BID #60 tab NS 02/24/20 03/11/20 Rx tablet hydroxyzine HCl 25 mg PO TID 03/11/20 03/11/20 History lacosamide [Vimpat] 50 mg PO BID 03/11/20 03/11/20 History dolutegravir [Tivicay] 50 mg PO BID 03/12/20 03/12/20 History tenofovir alafenamide [Vemlidy] 25 mg PO DAILY 03/12/20 03/12/20 History Allergies Allergy/AdvReac Type Severity Reaction Status Date / Time topiramate Allergy Intermediate rash, Verified 03/11/20 12:44 itching lamotrigine [From Lamictal] AdvReac Intermediate dizzy, Verified 03/11/20 12:44 double vision Exam Const General: cooperative, comfortable, no acute distress, disheveled, frail appearing and ill appearing chronically Nutritional Appearance: average body habitus Orientation: alert, awake, oriented x3 and other (poor historian) [facility] Head: normal to inspection, normocephalic and atraumatic Resp Effort & Inspection: normal respiratory effort Auscultation: clear to auscultation bilaterally and diminished lung sounds bilaterally (bases) Cardio Rate: regular rate Rhythm: regular rhythm Heart Sounds: no murmurs GI Inspection: normal to inspection and non-distended Palpation: soft, not firm, no guarding, no masses, not rigid and tender in the RLQ and in the RUQ Auscultation: normal bowel sounds Skin General skin exam: rashes and/or lesions noted Neuro General: patient alert, patient awake, patient oriented x3, moves all extremities and no focal motor deficits Cranial Nerves: CN's II-XI intact bilaterally Extrem General: normal to inspection, full ROM and no pedal edema Results Labs Result diagrams: 03/13/20 06:14 03/13/20 06:14 Labs: Laboratory Results - last 24 hr 03/11/20 03/11/20 03/11/20 13:00 13:00 13:00 WBC 2.11 L RBC 2.55 L Hgb 9.0 L Hct 26.4 L MCV 103.5 H MCH 35.3 H MCHC 34.1 RDW 17.1 H Plt Count 110 L MPV 10.0 Immature Gran % 0.5 Neutrophils % 73.4 Lymphocytes % 17.5 Monocytes % 8.1 Eosinophils % 0.5 Basophils % 0.0 Nucleated RBC % 0 Absolute Neutrophils 1.55 Absolute Lymphocytes 0.37 L Absolute Monocytes 0.17 Absolute Eosinophils 0.01 Absolute Basophils 0.00 VBG Lactate 1.6 H Sodium 140 Potassium 2.7 L* Chloride 102 Carbon Dioxide 26.8 Anion Gap 11.2 H BUN 10 Creatinine 0.94 Estimated GFR/1.73 m2 >= 60.00 Glucose 88 Calcium 8.5 Magnesium 1.5 L Total Bilirubin 0.6 AST 25 ALT 20 Alkaline Phosphatase 42 L Troponin I < 0.05 Total Protein 5.7 L Albumin 2.5 L Urine Color Urine Clarity Urine pH Ur Specific [place] Urine Protein Urine Ketones Urine Blood Urine Nitrite Urine Bilirubin Urine Urobilinogen Ur Leukocyte Esterase Urine RBC Urine WBC Ur Epithelial Cells Urine Crystals Urine Bacteria Urine Casts Urine Mucus Ur Culture Indicated? Urine Glucose 03/11/20 13:40 WBC RBC Hgb Hct MCV MCH MCHC RDW Plt Count MPV Immature Gran % Neutrophils % Lymphocytes % Monocytes % Eosinophils % Basophils % Nucleated RBC % Absolute Neutrophils Absolute Lymphocytes Absolute Monocytes Absolute Eosinophils Absolute Basophils VBG Lactate Sodium Potassium Chloride Carbon Dioxide Anion Gap BUN Creatinine Estimated GFR/1.73 m2 Glucose Calcium Magnesium Total Bilirubin AST ALT Alkaline Phosphatase Troponin I Total Protein Albumin Urine Color Yellow Urine Clarity Clear Urine pH 6.0 Ur Specific [place] 1.015 Urine Protein Trace H Urine Ketones Trace H Urine Blood Negative Urine Nitrite Negative Urine Bilirubin Small H Urine Urobilinogen 0.2 Ur Leukocyte Esterase Negative Urine RBC 0-2 Urine WBC 0-2 Ur Epithelial Cells Rare Urine Crystals Negative Urine Bacteria Few Urine Casts Negative Urine Mucus Trace Ur Culture Indicated? Yes Urine Glucose Negative Last Vital Signs Temp 36.7 C 03/11/20 12:37 Pulse 78 03/11/20 12:37 BP 113/69 03/11/20 12:37 Pulse Ox 100 03/11/20 12:37 COVID-19 Screening Have you, or household traveled for leisure in last 14 days?: No Had IN PERSON contact w/suspected or confirmed C-19 person: No
[2020-03-11 15:57] LABS: Reticulocyte 2.4 % (0.5-2.4)
[2020-03-11 16:15] LABS: INR 1.1 (0.9-1.1); Prothrombin Time 10.7 sec (9.3-11.0)
[2020-03-11 16:56] LABS: Folate 3.5 ng/mL (8.6-20.0); Vitamin B12 387 pg/mL (193-986)
[2020-03-11 18:08] LABS: Troponin I < 0.05 ng/mL (<0.06)
[2020-03-11] MEDS: POTASSIUM CHLORIDE/D5-0.45NACL 1,000 ML 100 MEQ IV (18:31)
[2020-03-11 23:28] LABS: C Diff PCR Negative (Negative)
[2020-03-11 23:58] LABS: COVID-19 RT-PCR UVMMC Result Negative (Negative)
[2020-03-12] VITALS (8 sets, daily range): BP systolic 93–116; BP diastolic 65–79; PULSE 58–85; RESP 17–20; TEMP 35.5–37.4; O2SAT 96–99
--- NOTE | 2020-03-12 | DI.US_ITS ---
EXAM: US RENAL CLINICAL HISTORY: Evaluate exophytic renal cyst TECHNIQUE: Ultrasound performed using standard protocol. COMPARISON: CT CT CHEST/ABD/PEL W from 03/11/2020 FINDINGS: Renal ultrasound was performed to evaluate a homogeneous right lower pole renal mass measuring about 24 millimeters in diameter seen on prior CT of March 11. The attenuation of this lesion was appr oximately 40-50 Hounsfield units. On today's ultrasound examination, the mass is not ideally evaluated, internal echogenicity not exclu ded. The mass appears avascular as visualized. No other renal mass, hydronephrosis, or nephrolithia sis seen. Urinary bladder contains a Fofana catheter and is empty. IMPRESSION: Indeterminate ultrasound and CT findings regarding a hyperdense right lower pole renal mass, likely c yst. Neoplastic disease is not excluded and renal protocol MRI including pre and post contrast exami nation is recommended. DATA REPOSITORY:
--- NOTE | 2020-03-12 | DI.RAD_ITS ---
EXAM: XR KNEE LT 4V AP,LAT,ARACELIS,PAT CLINICAL HISTORY: Knee pain, frequent falls TECHNIQUE: COMPARISON: No exams were available for comparison FINDINGS: Five views were obtained. There may be a small knee joint effusion. Cartilaginous joint spaces appe ar fairly well maintained. Mild marginal osteophyte formation noted involving all 3 joints of the kn ee. IMPRESSION: Mild degenerative changes. Probable small joint effusion. RADIATION DOSE DELIVERED: Total DLP
[2020-03-12] MEDS: POTASSIUM CHLORIDE/D5-0.45NACL 1,000 ML 100 MEQ IV ×2 (04:21→19:48)
[2020-03-12 07:01] LABS: Absolute Eosinophil Count 0.03 10^3/uL (0.0-0.7); Absolute Lymphocyte Count 0.46 10^3/uL (1.2-3.4); Absolute Monocyte Count 0.14 10^3/uL (0.1-0.8); Absolute Neutrophil Count 1.25 10^3/uL (1.2-6.7); Eosinophils % 1.6; HCT 23.3 % (36.0-46.0); HGB 7.8 g/dL (11.2-15.7); Lymphocytes % 24.5; MCH 35.5 pg (27.0-33.0); MCHC 33.5 % (32.0-36.0); MCV 105.9 fL (80-95); MPV 10.9 fL (8.0-11.0); Monocytes % 7.4; Neutrophils % 66.5; Nucleated RBC 0 %; Platelet Count 103 10^3/uL (130-400); RDW 17.2 % (11.7-14.6); RDW-SD 66.4 fL
[2020-03-12 07:04] LABS: WBC 1.88 10^3/uL (4.4-10.8)
[2020-03-12 07:18] LABS: ALT 14 U/L (14-59); AST 18 U/L (15-37); Alkaline Phosphatase 33 U/L (46-116); Anion Gap 7.5 mmol/L (3-11); BUN 6 mg/dL (7-18); Bilirubin, Total 0.3 mg/dL (0.2-1.0); CO2 26.5 mmol/L (21.0-32.0); CREATININE 0.73 mg/dL (0.55-1.02); Calcium 7.5 mg/dL (8.5-10.1); Chloride 106 mmol/L (98-107); Glucose 109 mg/dL (74-106); Magnesium 1.9 mg/dL (1.8-2.4); Potassium 3.1 mmol/L (3.5-5.1); Sodium 140 mmol/L (136-145); Total Protein 4.5 g/dL (6.4-8.2)
[2020-03-12 07:22] LABS: Anisocytosis 1+; Diff Comment RBC Morph Reviewed; Macrocytosis 1+
--- NOTE | 2020-03-12 08:39 | PGE_ITS ---
Date of Service Date of service: 03/12/20 Time of Service: 08:40 Assessment and Plan Assessment and plan (1) Electrolyte depletion: Status: Acute Assessment and plan: Probably combination of poor nutrition and chronic GI losses. Potassium is only come up to 3.1 from 2.7 on admission. Magnesium is currently normal at 1.9. Started on Reglan to treat her postprandial nausea and vomiting. Also give her as needed Zofran. I requested surgical consult to evaluate her abnormal CT scan. (2) Pancytopenia: Status: Acute Assessment and plan: new since August 2019. Pancytopenia appears to be getting worse. White count is now down to 1880 and her ANC is 1250. SARS-CoV-2 PCR test was negative. I will obtain HIV viral load as I suspect that she has worsening of her HIV due to lack of her antiretroviral medications. (3) Human immunodeficiency virus infection: Status: Acute Assessment and plan: continue home medication is followed by Dr Antony Myers [phone] Myers this morning and discuss her case. We will also obtain an HIV viral load. Also check her CD4 count Qualifiers: HIV symptom status: symptomatic Qualified Code(s): B20 - Human immunodeficiency virus [HIV] disease (4) Focal epilepsy with impairment of consciousness, intractable: Status: Chronic Assessment and plan: stable, continue home medication (5) Abnormal CT of the abdomen: Status: Acute Assessment and plan: Patient has a 1 cm abnormal thickening of the rectosigmoid colon extends for about 6 cm. I have requested that her CT studies be sent to [facility] and I have called the transfer center to request a consult with Dr. Johan Ovalle her GI specialist. Consult has also been placed from our surgeons to review her findings and to evaluate her abdominal pain. (6) Renal cyst: Status: Acute Assessment and plan: CT scan of her abdomen pelvis identified 2.4 cm exophytic cyst off the inferior pole of the right kidney. I will get an ultrasound to try to clarify the cyst. (7) Weight loss: Status: Acute (8) Gastroesophageal reflux disease with esophagitis: Status: Acute Assessment and plan: We will place her on IV Protonix and transition over to oral PPI once she is able to tolerate an oral diet. Qualifiers: Esophagitis bleeding: without hemorrhage Qualified Code(s): K21.00 - Gastro-esophageal reflux disease with esophagitis, without bleeding (9) Diarrhea: Status: Acute Assessment and plan: Stool studies are pending at this time including stool pathogens however her lactoferrin test was negative. Stool for occult blood was negative. This may be a functional diarrhea or related to one of her medications. The other concern is that she may have colon cancer given the abnormal CT findings at the rectosigmoid junction. Qualifiers: Diarrhea type: unspecified type Qualified Code(s): R19.7 - Diarrhea, unspecified Subjective Subjective Interval history since last seen: Patient admitted last night for complaints of abdominal pain nausea and vomiting and diarrhea. Nausea and vomiting and diarrhea have been going on for at least a couple of months. Patient has a history of known esophageal strictures and underwent EGD with esophageal dilatation on February 05, [address] Johan Ovalle from [facility]. In spite of that she says she has not been able to keep down her medications which she feels is the cause for not being able to take her HIV antiretroviral medications. She is pancytopenic and CT scan of her abdomen pelvis yesterday allegedly shows evidence of a hemicolectomy although the patient denies a history of the same. Abdominal scars only show right upper quadrant scar consistent with her history of cholecystectomy. CT scan also allegedly shows 6 cm length of 1 cm thickening of the rectosigmoid colon. Patient's been having liquid bowel movements. Stool studies are pending at this time. Patient states she is having abdominal pain 8 out of 10 in severity although she looks at me rather calmly and is watching TV and does not appear to be in any distress. Her abdominal exam is fairly benign with normal active bowel sounds soft and nondistended abdomen with no rebound tenderness or guarding. Exam Narrative Exam Narrative: Middle-age female who appears to be older than her stated age sitting up in bed calmly watching TV. She is alert and oriented. Lungs are clear to auscultation Heart regular rate and rhythm Abdomen there is a scar in the right upper quadrant along the costal margin consistent with prior cholecystectomy. Abdomen is nondistended. Normal active bowel sounds. Minimal tenderness. When I asked her where it hurts she points all over her abdomen. There is no rebound tenderness and no guarding. Objective Last Vital Signs Temp 36.9 C 03/12/20 03:30 Pulse 68 03/12/20 07:11 Resp 18 03/12/20 03:30 BP 108/73 03/12/20 03:30 Pulse Ox 97 03/12/20 03:30 Laboratory Results - last 24 hr 03/11/20 03/11/20 03/11/20 13:00 13:00 13:00 WBC 2.11 L RBC 2.55 L Hgb 9.0 L Hct 26.4 L MCV 103.5 H MCH 35.3 H MCHC 34.1 RDW 17.1 H Plt Count 110 L MPV 10.0 Reticulocyte % (Auto) Immature Gran % 0.5 Neutrophils % 73.4 Lymphocytes % 17.5 Monocytes % 8.1 Eosinophils % 0.5 Basophils % 0.0 Nucleated RBC % 0 Absolute Neutrophils 1.55 Absolute Lymphocytes 0.37 L Absolute Monocytes 0.17 Absolute Eosinophils 0.01 Absolute Basophils 0.00 RBC Morphology Anisocytosis Macrocytosis PT INR VBG Lactate 1.6 H Sodium 140 Potassium 2.7 L* Chloride 102 Carbon Dioxide 26.8 Anion Gap 11.2 H BUN 10 Creatinine 0.94 Estimated GFR/1.73 m2 >= 60.00 Glucose 88 Calcium 8.5 Magnesium 1.5 L Total Bilirubin 0.6 AST 25 ALT 20 Alkaline Phosphatase 42 L Troponin I < 0.05 Total Protein 5.7 L Albumin 2.5 L Vitamin B12 Folate Urine Color Urine Clarity Urine pH Ur Specific [place] Urine Protein Urine Ketones Urine Blood Urine Nitrite Urine Bilirubin Urine Urobilinogen Ur Leukocyte Esterase Urine RBC Urine WBC Ur Epithelial Cells Urine Crystals Urine Bacteria Urine Casts Urine Mucus Ur Culture Indicated? Urine Glucose Stl C.difficile Tox PCR SARS-CoV-2 (PCR) Nasopharyn COVID-19 PCR Ref Test Perform Site Patient ABO/Rh Antibody Screen 03/11/20 03/11/20 03/11/20 13:00 13:00 13:00 WBC RBC Hgb Hct MCV MCH MCHC RDW Plt Count MPV Reticulocyte % (Auto) 2.4 Immature Gran % Neutrophils % Lymphocytes % Monocytes % Eosinophils % Basophils % Nucleated RBC % Absolute Neutrophils Absolute Lymphocytes Absolute Monocytes Absolute Eosinophils Absolute Basophils RBC Morphology Anisocytosis Macrocytosis PT 10.7 INR 1.1 VBG Lactate Sodium Potassium Chloride Carbon Dioxide Anion Gap BUN Creatinine Estimated GFR/1.73 m2 Glucose Calcium Magnesium Total Bilirubin AST ALT Alkaline Phosphatase Troponin I Total Protein Albumin Vitamin B12 387 Folate 3.5 L Urine Color Urine Clarity Urine pH Ur Specific [place] Urine Protein Urine Ketones Urine Blood Urine Nitrite Urine Bilirubin Urine Urobilinogen Ur Leukocyte Esterase Urine RBC Urine WBC Ur Epithelial Cells Urine Crystals Urine Bacteria Urine Casts Urine Mucus Ur Culture Indicated? Urine Glucose Stl C.difficile Tox PCR SARS-CoV-2 (PCR) Nasopharyn COVID-19 PCR Ref Test Perform Site Patient ABO/Rh Antibody Screen 03/11/20 03/11/20 03/11/20 13:40 15:25 15:45 WBC RBC Hgb Hct MCV MCH MCHC RDW Plt Count MPV Reticulocyte % (Auto) Immature Gran % Neutrophils % Lymphocytes % Monocytes % Eosinophils % Basophils % Nucleated RBC % Absolute Neutrophils Absolute Lymphocytes Absolute Monocytes Absolute Eosinophils Absolute Basophils RBC Morphology Anisocytosis Macrocytosis PT INR VBG Lactate Sodium Potassium Chloride Carbon Dioxide Anion Gap BUN Creatinine Estimated GFR/1.73 m2 Glucose Calcium Magnesium Total Bilirubin AST ALT Alkaline Phosphatase Troponin I Total Protein Albumin Vitamin B12 Folate Urine Color Yellow Urine Clarity Clear Urine pH 6.0 Ur Specific [place] 1.015 Urine Protein Trace H Urine Ketones Trace H Urine Blood Negative Urine Nitrite Negative Urine Bilirubin Small H Urine Urobilinogen 0.2 Ur Leukocyte Esterase Negative Urine RBC 0-2 Urine WBC 0-2 Ur Epithelial Cells Rare Urine Crystals Negative Urine Bacteria Few Urine Casts Negative Urine Mucus Trace Ur Culture Indicated? Yes Urine Glucose Negative Stl C.difficile Tox PCR SARS-CoV-2 (PCR) Negative Nasopharyn COVID-19 PCR Not Applicable Ref Test Perform Site [facility] lab Patient ABO/Rh O Positive Antibody Screen Negative 03/11/20 03/11/20 03/12/20 17:35 17:50 06:25 WBC RBC Hgb Hct MCV MCH MCHC RDW Plt Count MPV Reticulocyte % (Auto) Immature Gran % Neutrophils % Lymphocytes % Monocytes % Eosinophils % Basophils % Nucleated RBC % Absolute Neutrophils Absolute Lymphocytes Absolute Monocytes Absolute Eosinophils Absolute Basophils RBC Morphology Anisocytosis Macrocytosis PT INR VBG Lactate Sodium 140 Potassium 3.1 L Chloride 106 Carbon Dioxide 26.5 Anion Gap 7.5 BUN 6 L Creatinine 0.73 Estimated GFR/1.73 m2 >= 60.00 Glucose 109 H Calcium 7.5 L Magnesium 1.9 Total Bilirubin 0.3 AST 18 ALT 14 Alkaline Phosphatase 33 L Troponin I < 0.05 Total Protein 4.5 L Albumin 2.0 L Vitamin B12 Folate Urine Color Urine Clarity Urine pH Ur Specific [place] Urine Protein Urine Ketones Urine Blood Urine Nitrite Urine Bilirubin Urine Urobilinogen Ur Leukocyte Esterase Urine RBC Urine WBC Ur Epithelial Cells Urine Crystals Urine Bacteria Urine Casts Urine Mucus Ur Culture Indicated? Urine Glucose Stl C.difficile Tox PCR Negative SARS-CoV-2 (PCR) Nasopharyn COVID-19 PCR Ref Test Perform Site Patient ABO/Rh Antibody Screen 03/12/20 06:25 WBC 1.88 L* RBC 2.20 L Hgb 7.8 L Hct 23.3 L MCV 105.9 H MCH 35.5 H MCHC 33.5 RDW 17.2 H Plt Count 103 L MPV 10.9 Reticulocyte % (Auto) Immature Gran % 0.0 Neutrophils % 66.5 Lymphocytes % 24.5 Monocytes % 7.4 Eosinophils % 1.6 Basophils % 0.0 Nucleated RBC % 0 Absolute Neutrophils 1.25 Absolute Lymphocytes 0.46 L Absolute Monocytes 0.14 Absolute Eosinophils 0.03 Absolute Basophils 0.00 RBC Morphology See below Anisocytosis 1+ Macrocytosis 1+ PT INR VBG Lactate Sodium Potassium Chloride Carbon Dioxide Anion Gap BUN Creatinine Estimated GFR/1.73 m2 Glucose Calcium Magnesium Total Bilirubin AST ALT Alkaline Phosphatase Troponin I Total Protein Albumin Vitamin B12 Folate Urine Color Urine Clarity Urine pH Ur Specific [place] Urine Protein Urine Ketones Urine Blood Urine Nitrite Urine Bilirubin Urine Urobilinogen Ur Leukocyte Esterase Urine RBC Urine WBC Ur Epithelial Cells Urine Crystals Urine Bacteria Urine Casts Urine Mucus Ur Culture Indicated? Urine Glucose Stl C.difficile Tox PCR SARS-CoV-2 (PCR) Nasopharyn COVID-19 PCR Ref Test Perform Site Patient ABO/Rh Antibody Screen
[2020-03-12] MEDS: Normal Saline Flush 10 ML SYR IVP ×5 (08:52→16:20)
[2020-03-12] MEDS: Ketorolac 15 MG/ML VIAL IVP ×2 (08:52→15:26)
[2020-03-12] MEDS: Normal Saline 500 ML 30 ML IVPB (09:21)
[2020-03-12] MEDS: POTASSIUM CHLORIDE 20 MEQ/100 ML BAG 50 MEQ IVPB ×2 (09:22→11:26)
[2020-03-12] MEDS: Pantoprazole 40 MG VIAL IVP (09:44)
--- NOTE | 2020-03-12 10:00 | PT.INIE ---
Date of service: 03/12/20 Time of Service: 10:00 PT Notes Visit Reasons: HYPOKALEMIA, NAUSEA VOMITING Physical Therapy Inpatient Initial Evaluation Date: 03/12/2020 Referring Doctor: Fabio Jarrell MD PT Orders: PT CONSULT: Exacerbation of chronic cond Precautions: Fall. Standard universal precautions for HIV. Activity as tolerated. Patient Profile/Admitting Diagnosis: Josiane is a 65-year-old female who presented to the ED on 03/11/2020 with complaints of nausea, vomiting, and diarrhea associated with abdominal pain and increasing weakness resulting to difficulty with performing activities of daily living at home. She is diagnosed with electrolyte depletion, pansensitive cytopenia, HIV, focal epilepsy with impairment of consciousness, abdominal CT of the abdomen, renal cyst, weight loss, GERD, and diarrhea. PMHX: Medical History Anxiety Chronic headache Colon polyposis Depression Focal epilepsy with impairment of consciousness, intractable Gastroesophageal reflux disease with esophagitis (02/10/12) LA grade D esophagitis [place] [facility] [place] [place]-benign appearing esophageal stenosis 01/14/20-Upper GI endoscopy-biopsies taken HH (hiatus hernia) (10/16/15) [place] [facility] [place] [facility] [place] 4 [place] by [place]GI Human immunodeficiency virus infection (02/26/90) Dr. Antony Myers, , [facility] Hx of meningitis Hyperlipidemia Hyperlipidemia (02/10/12) Insomnia Medication overuse headache Migraine headache with aura Pruritus Rosacea (07/17/12) dr lopez Seizures, generalized convulsive Temporal sclerosis Vitamin D deficiency Surgical History Colonoscopy - MAC (12/09/13) per Dr. Wren , hemorroids banded, 3 polyps biopsied Endoscopy (10/16/15) Dr Ramesh Johnson [facility] [place] Social History/Home Situation: Lives alone on the third floor of an apartment building with 30 steps to enter with a rail on 1 side. Josiane has not been going out of the house and has had her downstairs neighbor help out with all her outdoor errands for the past 4 weeks due to increasing weakness. Has been using a long umbrella as her cane when she is ambulating inside the house. Equipment Owned/DME: None Subjective: Agreeable e to PT consult. Pleasant and cooperative. Complains of a 10/10 pain in the left knee with weight bearing. Reports abdominal and anal area pain at 6-7/10. States that she has been having diarrhea episodes since admission. Denies headache, chest pain, and dizziness throughout session. Objective: General Observation: Supine in bed. HIV in the right ureter. Bilateral TDS on. Antithromboembolic pumps on. Fofana catheter in place. Telemetry monitoring in place. Mental Status: Alert and oriented x4 Pain: 10 out of 10 pain in the left knee with weight bearing 6?7/10 pain in the abdominal and anal area ROM: Right Upper Extremity: Shoulder Flexion WFL. Shoulder abduction WFL. Elbow flexion WFL. Wrist flexion WFL. Opening and closing of hand WFL. Left Upper Extremity: Shoulder Flexion WFL. Shoulder abduction WFL. Elbow flexion WFL. Wrist flexion WFL. Opening and closing of hand WFL. Right Lower Extremity: Hip flexion WFL. Hip abduction WFL. Knee flexion WFL. Ankle dorsiflexion WFL. Ankle plantarflexion WFL. Left Lower Extremity: Hip flexion WFL. Hip abduction WFL. Knee flexion WFL. Ankle dorsiflexion WFL. Ankle plantarflexion WFL. Strength: Right Upper Extremity: Shoulder flexors 4-/5. Shoulder abductors 4-/5. Elbow flexors 4-/5. Elbow extensors 4-/5. Tube Washer strong. Left Upper Extremity: Shoulder flexors 4-/5. Shoulder abductors 4-/5. Elbow flexors 4-/5. Elbow extensors 4-/5. Tube Washer strong. Right Lower Extremity: Hip flexors 4-/5. Hip abductors 4-/5. Knee flexors 4-/5. Knee extensors 3+/5. Ankle dorsiflexors 4-/5. Ankle plantarflexors 4-/5. Left Lower Extremity: Hip flexors 4-/5. Hip abductors 4-/5. Knee flexors 4-/5. Knee extensors 3+/5. Ankle dorsiflexors 4-/5. Ankle plantarflexors 4-/5. Sensation: Intact as to pain and pressure on bilateral lower extremities. Bed Mobility/Transfers: Supine to sit SBA with HOB at 30 degrees Sit to supine contact-guard assist Sit to stand contact-guard assist Stand to sit contact-guard assist Bed to chair contact-guard assist Gait: Guided patient through level surface ambulation of up to 45 feet using a front wheeled walker with weightbearing as tolerated on bilateral lower extremities with contact-guard assist and IV pole management of PT with wheelchair follow of VICKI Vázquez. Josiane demonstrates minimal weightbearing placed on the left LE with just the toes touching the floor and the left heel elevated due to 10/10 pain complaint. Reports fatigue as well as abdominal and anal pain with movement and weight bearing. Balance: Static Sitting: Normal Dynamic Sitting: Normal Static Standing: Fair Dynamic Standing: Fair Special Tests: Mobility Limitations Standardized Measure [facility] AM-PAC 6 clicks Basic Mobility Inpatient Short Form: Raw Score: 14 CMS Score: 61% deficit Informed Consent/Education: Patient instructed in purpose of PT consult and plan of care. Assessment: Josiane demonstrates the need for the use of a front wheeled walker for all mobility ADL performance to offload the left knee and reduce fall risk, walking, impairment generalized weakness, and increased risk for falls which limited ability to thrive at home alone. She will benefit from chcf facility placement in order to gradually progress strength, balance, and activity tolerance prior to discharge to home. Patient presents with clinical signs and symptoms consistent with current/admitting diagnoses that have resulted to mobility limitations, gait instability, generalized weakness, and impairment of motor control as demonstrated by the following impairment level findings: 1. Decreased strength to B UE/LE major muscle groups 2. Impaired sitting/standing balance 3. Impaired activity tolerance 4. Easy fatigability 5. Left knee pain at 10/10 Impairments are contributing to the following functional limitations: 1. Increased dependence with transfers 2. Inability to safely ambulate without assistive device and physical assistance 3. Increase completion time for mobility ADL performance 4. Increased fall risk 5. Inability to negotiate steps alone safely Patient is assessed as a 51043 high complexity based on the following: History: 64 [id number] with impairment level findings, functional limitations, and past medical history as indicated above Examination: Demonstrable impairment in strength, balance, and mobility level with underlying impairments and functional limitations as documented above Presentation: Evolving Decision Makin high complexity Goals: Goals X1 week 1. Supine-Sit independent 2. Sit-Supine independent 3. Sit-Stand independent 4. Stand-Sit independent 5. Bed-Chair independent 6. Chair-Bed independent 7. Independent gait on level surface with use of front wheeled walker for at least 300 feet without report of pain nor dyspnea 8. Independent stair negotiation while holding onto unilateral rail plus SPC for at least 30 steps without report of pain nor dyspnea 9. Good static and dynamic standing balance/tolerance Plan of Care/Treatment Plan: 1-2x/day, 7 days/week x 1 week. Plan of care has been reviewed with the VAC PRESS OPERATOR providing the service under Physical Therapy direction. Initiate Physical Therapy intervention for strengthening, bed mobility, transfers, gait, stairs, balance training, use of assistive device. DISCHARGE RECOMMENDATIONS: Patient will benefit from chcf facility placement for continued skilled physical therapy services in order to progress mobility level, strength, and balance in preparation for a safe discharge to home. Will benefit from the use of a front wheeled walker. TREATMENT CODE/TIME: 69552 x 30 minutes, 24925 x 14 minutes beginning at 10:00 AM. Thank you for the opportunity to participate in the care of this patient. Satcy Dalal PT, DPT, CLT [facility] [place], [place]
--- NOTE | 2020-03-12 10:38 | PDOC.CMIN ---
- If Service Date Differs Date of service: 03/12/20 Time of Service: 10:59 Care Management Initial Assess REASON FOR HOSPITALIZATION:: Hypokalemia, N/V PAST MEDICAL HISTORY/PAST SURGICAL HISTORY:: Anxiety, Chronic headache, Colon polyposis, Depression, Focal epilepsy with impairment of consciousness, intractable, Gastroesophageal reflux disease with esophagitis, HH, Human immunodeficiency virus infection (02/26/90), Hx of meningitis, Insomnia, Medication overuse headache, Migraine headache with aura, Pruritus, Rosacea, Seizures, generalized convulsive, Temporal sclerosis, Vitamin D deficiency, Colonoscopy, Endoscopy, S/P brain surgery PREVIOUS FUNCTIONAL STATUS/SOCIAL/FAMILY SUPPORTS:: Josiane resides in [facility], in an apartment on the third floor. Due to increased weakness, she was unable to ambulate and came to the ED, she was admitted observation for electrolyte repletion. She has a neighbor who has been helping by bringing her food. She does not identify additional local natural supports. Josiane feels she will be able to return home, once she is back to baseline. CURRENT FUNCTIONAL STATUS:: Josiane was quite pleasant in interaction. She shared gratitude for her care and reported working with PT. She continues to feel weak at this time, but did state she was feeling better. She reported being agreeable to SNF short rehab stay prior to returning home and requested referral coordination with [facility] and the [facility]. ADVANCE DIRECTIVES:: None on file at [facility]. Has patient been provided with info about the portal/API?: Yes Did the patient sign up for the portal?: No CODE STATUS:: Full Code INSURANCE COVERAGE / FINANCIAL ISSUES:: [facility]. [facility] PRIMARY CARE PHYSICIAN:: Sarah Alejo POTENTIAL DISCHARGE NEEDS:: Evaluations for further needs, possible SNF placement. PATIENT/FAMILY EDUCATION NEEDS:: Review of discharge instructions, discuss Ask Me Three. ANTICIPATED BARRIERS TO DISCHARGE:: None identified. TRANSPORTATION:: TBD by mobility and disposition. PLAN:: Josiane continues to be closely monitored. She was evaluated by PT who recommended SNF placement. Due to observation status, [facility] will not cover SNF, but Josiane does have [facility] which will provide 30 days of rehab coverage, WHITNEY reviewed this information with Josiane. WHITNEY faxed referrals to [facility] and the [facility], at Josiane's request. WHITNEY continues to follow.
[2020-03-12] MEDS: Acetaminophen 325 MG TAB 650 MG PO ×2 (11:37→15:26)
[2020-03-12] MEDS: Metoclopramide 10 MG/2 ML VIAL IVP ×3 (11:38→22:33)
--- NOTE | 2020-03-12 12:26 | PHA.REVIEW ---
Pharmacy Admission Review - Admission Clinical Review (Last Reviewed 03/11/20 @ 13:02 by Bhumi Rodríguez) Diarrhea (Acute) Renal cyst (Acute) Abnormal CT of the abdomen (Acute) Electrolyte depletion (Acute) Pancytopenia (Acute) Colitis, acute (Acute) Weight loss (Acute) Gastroesophageal reflux disease with esophagitis (Acute 02/10/12) Human immunodeficiency virus infection (Acute 02/26/90) topiramate Allergy (Intermediate, Verified 03/11/20 12:44) rash, itching lamotrigine [From Lamictal] Adverse Reaction (Intermediate, Verified 03/11/20 12:44) dizzy, double vision Height 5 ft 6.54 in Weight 62.2 kg - Renal Dosing Renal Dosing: BUN 6 mg/dL (7-18) L 03/12/20 06:25 Creatinine 0.73 mg/dL (0.55-1.02) 03/12/20 06:25 Medications needing adjustments: Reviewed List of meds needing interventions: eCrCl 68.25 ml/min - Anticoagulation Anticoagulation: Hgb 7.8 g/dL (11.2-15.7) L 03/12/20 06:25 Hct 23.3 % (36.0-46.0) L 03/12/20 06:25 Plt Count 103 10^3/uL (130-400) L 03/12/20 06:25 INR 1.1 (0.9-1.1) 03/11/20 13:00 Creatinine 0.73 mg/dL (0.55-1.02) 03/12/20 06:25 DVT Prohphylaxis: N/A Therapeutic Anticoagulation: N/A - Opiate Usage Evaluate Pain Scale/Pains Meds: N/A - Relevant Labs Sodium 140 mmol/L (136-145) 03/12/20 06:25 Potassium 3.1 mmol/L (3.5-5.1) L 03/12/20 06:25 Chloride 106 mmol/L (98-107) 03/12/20 06:25 Magnesium 1.9 mg/dL (1.8-2.4) 03/12/20 06:25 Electrolytes, C-Reactive P, ESR: Reviewed (Potassium is being replaced with 40 meq IV plus 20meq PO TID) - DM Control DM Control: Glucose 109 mg/dL (74-106) H 03/12/20 06:25 Insulin Dosing: N/A - Heart Failure/FL Heart Failure/FL: Troponin I < 0.05 ng/mL (<0.06) 03/11/20 17:35 EF%, JOSE's, B-Blockers, Diuretics: Reviewed - BP Control BP Control: Blood Pressure 93/65 Blood Pressure 103/65 Blood Pressure 108/73 If elevated: Reviewed - Qtc Review If Elevated: Reviewed List meds needing interventions: QTc 450 on admission - IV to PO Switch IV Medications: Reviewed - Home Meds Home Med List reviewed: Intervened Relevent Home Meds Not ordered & why?: All ordered -- several are entered as pt's own as they are non-formulary but they have no been brought in yet, will keep checking with nursing; Much confusion about current HIV regimen... after speaking with patient's pharmacy directly she has not been filling her 3 HIV meds regularly since June of last year. Lamivudine LF 01/16/20 for 30 days, Vemlidy LF 07/25/19 for 30 days and Tividay last filled 07/24/19 for 30 days -- two of these were dc'd on her home med list but I reactivated them because it is more likely this is an issue of non-compliance and after reading most recent notes from her providers none of these were DC'd by them (typical HIV regimens include at least [address] Myers had plans to change her to completely liquid regimen but required blood work before this which was planned 11/12/19. Per pharmacy record there were no new scripts for HIV medications in liquid form sent to them, only the lamivudine filled on 01/12/20 prescribed by Brittanie Pina. - Current meds Current Medication Order Review: Reviewed (Ketorlac should be used with caution in patient's with low platelet counts -- spoke to both nursing and the ordering provider about this.) - Comments Comments/Follow Ups: Continue to monitor vitals, BMP, CBC, med changes
[2020-03-12] MEDS: Potassium Chloride Liquid 20 MEQ PKT PO ×2 (14:00→19:48)
[2020-03-12] MEDS: Multivitamin TAB 1 TAB PO (14:03)
[2020-03-12] MEDS: Thiamine 100 MG TAB PO (14:03)
--- NOTE | 2020-03-12 14:32 | CHAPLAIN ---
Josiane was in bed when I visited. She was very soft spoken. She thanked me for introducing myself to her. She said she has not family to be in touch with. I will continue to visit.
[2020-03-12] MEDS: Ondansetron 4 MG/2 ML VIAL IVP (15:27)
--- NOTE | 2020-03-12 16:46 | SCONE_ITS ---
Date of service: 03/12/20 Time of Service: 16:47 Assessment and Plan Assessment and plan (1) Diarrhea: Status: Acute Qualifiers: Diarrhea type: unspecified type Qualified Code(s): R19.7 - Diarrhea, unspecified (2) Pancytopenia: Status: Acute (3) Esophagitis determined by biopsy: Status: Chronic (4) Gastroesophageal reflux disease with esophagitis: Status: Acute Qualifiers: Esophagitis bleeding: without hemorrhage Qualified Code(s): K21.00 - Gastro-esophageal reflux disease with esophagitis, without bleeding (5) HH (hiatus hernia): Status: Acute (6) Human immunodeficiency virus infection: Status: Acute Qualifiers: HIV symptom status: symptomatic Qualified Code(s): B20 - Human immunodeficiency virus [HIV] disease (7) Nicotine dependence: Status: Acute (8) Tubular adenoma of colon: Status: Acute (9) Colon polyposis: Status: Chronic (10) Anal fissure: Status: Chronic (11) Dysphagia: Status: Chronic (12) Depression: Status: Chronic Qualifiers: Depression Type: unspecified Qualified Code(s): F32.9 - Major depressive disorder, single episode, unspecified (13) Esophageal stricture: Status: Acute (14) Weight loss: Status: Acute (15) Diverticula of colon: Status: Acute (16) Colonic thickening: Status: Acute Assessment and plan: -I did review her CT today. I also reviewed her previous colonoscopies. Her CT says that she has had a right hemicolectomy. Dr. Wren did not mention any prior history of the right hemicolectomy in her notes and at the time of colonoscopy in 2013 she still had her ileocecal valve. I did look through her chart [facility] and from what I can see from [facility] in the re is no mention of any right hemicolectomy. If this is true as she no longer has an ileocecal valve, is that she is going to have functional diarrhea, and have multiple bowel movements a day especially after eating that we had the of the looser consistency. -I did review her CT. She certainly could have some type of malignant process. Sure her last colonoscopy was 2013. She was was never been repeat in 2019. She has a history of noncompliance. She also has severe depression and other social issues that compromise her care. Her last colonoscopy was done at [facility] and she had no problems with anesthesia. - Her lactoferrin and C. difficile are negative. Stool cultures are pending. She does have HIV and is very noncompliant with her medication. So have her having some unusual type of infection could certainly be possible. - Unfortunately her white count and had absolute neutrophil count were exceedingly low right now. Whether this is from her not taking her RV meds or because of lab absorption is undetermined at this time. CD for count is pending. Currently it is not safe for her to have a colonoscopy. - I did discuss this with Dr. Moisés altamirano. She has been seeing GI down to [facility] now. And I did review their notes and they said they would scope her on an outpatient basis when she is more stable, and when her white count has improved. History of Present Illness Narrative: I did review the pt chart and d/w the case w/ Dr. Curiel Pt does have a Hx of HIV. She has not been taking her retrovirals due to N/V. So this may impact her WBC/CD4 #'s. (CD4 is pd at this time) please see labs in [facility]. I did review the results of her EGD Dr. Ovalle on 01/14/20. She has a hiatal hernia, Esophagitis (active esophagitis on Bx) and duodenitis. Moderate distal esophageal stenosis that was dilated to 15mm. I did reviewed her notes from her ID Dr at [facility] from 10/21/19. There is question if she is taking her retroviral triad b/c of the swallowing issues. When she was seeing ID [place] [facility], they questioned compliance b/c of the wild types of virus noted. Compliance and follow through, as well depression/transportation have been significant barriers to care for her. Notes from Dr. Shedlon reviewed as well. Her last CE w/ Dr. Wren was in 2013 adn she did have Adenomatous polyps. She was suppose to have had a repeat CE in 2019. She did not follow up from that. - FOB was neg/Lactoferrin was neg. Stool cults are pd. C. diff was neg. CHEST: LUNGS: No infiltrates nor pleural effusions. No ominous pulmonary nodules.. MEDIASTINUM: There is no hilar nor mediastinal adenopathy. Visualized thyroid unremarkable. CARDIAC: Heart size is normal. There is no pericardial effusion.Caliber of the thoracic aorta is within normal limits. OSSEOUS: No significant osseous lesions.. ABDOMEN: There is no ascites. LIVER: There are no focal hepatic lesions nor dilatation of intrahepatic ducts. GALLBLADDER/BILIARY: Gallbladder surgically absent CBD is not dilated. PANCREAS: No evidence of pancreatic mass nor dilatation of the pancreatic duct. SPLEEN: Spleen is not enlarged. There are no intrasplenic lesions. Splenic and portal veins are patent. ADRENALS: There are no significant adrenal masses. KIDNEYS: Left kidney is unremarkable.. There is an exophytic cyst off the inferior pole of right kidney which measures 2.4 by 1.5 centimetres. ABDOMINAL AORTA: Abdominal aorta is not enlarged and there is no [id number] adenopathy. ABDOMINAL WALL/GI: No evidence of significant anterior abdominal wall hernia. No bowel obstruction. PELVIS: LYMPH NODES: There is no intrapelvic nor inguinal adenopathy. GI: There is evidence of right hemicolectomy.There is extensive sigmoid diverticulosis. There is also abnormal circumferential thickening of the rectosigmoid with wall thickness 1 centimeter. Either neoplastic versus inflammatory. This is over a length of bowel approximately 6 centimetres. URINARY BLADDER: There is air seen in the urinary bladder. REPRODUCTIVE: Age-appropriate OSSEOUS: No significant osseous lesions. There is degenerative anterolisthesis of L4 upon L5 by approximately 1 centimeter slippage anterior L4 upon L5 IMPRESSION: 1. There has been previous right hemicolectomy. 2. There is abnormal thickening of the recto sigmoid wall over distance of approximately 6 centimeters. This is in addition to extensive sigmoid diverticulosis. Possibly superimposed colitis pattern versus neoplasm in addition to extensive diverticulosis. 3. Gallbladder surgically absent. Biliary tree is not dilated. 4. 2.4 centimeters cyst in the right kidney exophytic off the inferior pole. fter informed consent was obtained, the patient was taken to the endoscopy suite and placed in left decubitus position, monitors were applied, and a time-out was done. The patient was then placed under MAC anesthesia, and once sedated and comfortable, the colonoscope was introduced and retroflexed. Internal hemor rhoids were noted. The scope was straightened and slowly advanced to the cecum. There was moderate diverticulosis of the sigmoid and descending colon. The scope was advanced all the way to the cecum. The taenia and appendiceal orifice were identified. The scope was then slowly retracted into the ascending colon where two polyps were identified and removed with forceps. The scope was retracted into the rectum where another polyp was identified and removed with forceps. The scope was then removed. The anoscope was introduced and the two larger hemorrhoids were banded. Consults Consult date: 03/12/20 Requesting physician: Fabio Curiel [facility] Medical History Anxiety Chronic headache Colon polyposis Depression Focal epilepsy with impairment of consciousness, intractable Gastroesophageal reflux disease with esophagitis (02/10/12) LA grade D esophagitis [place] GI [place]oscopy 06/23/15 [place] [facility] [place] [place] GI endoscopy-benign appearing esophageal stenosis 01/14/20-Upper GI endoscopy-biopsies taken HH (hiatus hernia) (10/16/15) Dr Ramesh Johnson, [facility] 02/05/20 [facility] Endo 4 cm by UGI Human immunodeficiency virus infection (02/26/90) Dr. Antony Myers, DO, [facility] ID Hx of meningitis Hyperlipidemia Hyperlipidemia (02/10/12) Insomnia Medication overuse headache Migraine headache with aura Pruritus Rosacea (07/17/12) dr lopez Seizures, generalized convulsive Temporal sclerosis Vitamin D deficiency Surgical History Colonoscopy - MAC (12/09/13) per Dr. Wren , hemorroids banded, 3 polyps biopsied Endoscopy (10/16/15) Dr Ramesh Johnson [facility] [place] brain surgery Family History Sister Headache Social History Smoking/Tobacco Use Status: Current every day Tobacco Type: cigarettes Tobacco: How many years used: 45 Smoking risk assessment performed?: Yes Alcohol Intake: former Details: 2-3 beers a week, when socializing Drug use: Never Substance use type: does not use Details: smokes 4 packs per week no alcohol for over 3 months Household members: none and other Details: Number of Children: 1 current occupation: disabled Sexually active: Yes Do you think of yourself as: straight/heterosexual What type of physical activity do you participate in: walking and weight lifting Seatbelt use: always Helmet use: Yes Drive intox or ride w/intox clamp truck driver: No Water heater temp set <120 deg: Yes Working smoke detector in home: Yes Fire extinguisher in home: Yes Carbon monox detector in home: Yes Firearms in home: No Do you feel safe at home: No Do you feel safe in your relationship?: Yes Additional Social history: lives alone on the 3rd floor - unable to navigate stairs due to weakness and legs hurt and are wobbly Results Last Vital Signs Temp 36.5 C 03/12/20 15:37 Pulse 67 03/12/20 15:37 Resp 18 03/12/20 15:37 BP 110/74 03/12/20 15:37 Pulse Ox 96 03/12/20 15:37 Labs Result diagrams: 03/12/20 06:25 03/12/20 06:25 Labs: Laboratory Results - last 24 hr 03/11/20 03/11/20 03/11/20 13:00 15:45 15:56 WBC RBC Hgb Hct MCV MCH MCHC RDW Plt Count MPV Immature Gran % Neutrophils % Lymphocytes % Monocytes % Eosinophils % Basophils % Nucleated RBC % Absolute Neutrophils Absolute Lymphocytes Absolute Monocytes Absolute Eosinophils Absolute Basophils RBC Morphology Anisocytosis Macrocytosis Sodium Potassium Chloride Carbon Dioxide Anion Gap BUN Creatinine Estimated GFR/1.73 m2 Glucose Calcium Magnesium Total Bilirubin AST ALT Alkaline Phosphatase Troponin I Total Protein Albumin Vitamin B12 387 Folate 3.5 L Stl C.difficile Tox PCR SARS-CoV-2 (PCR) Negative Nasopharyn COVID-19 PCR Not Applicable Pathology Consult Spec Cancelled Ref Test Perform Site [place] [facility] 03/11/20 03/11/20 03/12/20 17:35 17:50 06:25 WBC RBC Hgb Hct MCV MCH MCHC RDW Plt Count MPV Immature Gran % Neutrophils % Lymphocytes % Monocytes % Eosinophils % Basophils % Nucleated RBC % Absolute Neutrophils Absolute Lymphocytes Absolute Monocytes Absolute Eosinophils Absolute Basophils RBC Morphology Anisocytosis Macrocytosis Sodium 140 Potassium 3.1 L Chloride 106 Carbon Dioxide 26.5 Anion Gap 7.5 BUN 6 L Creatinine 0.73 Estimated GFR/1.73 m2 >= 60.00 Glucose 109 H Calcium 7.5 L Magnesium 1.9 Total Bilirubin 0.3 AST 18 ALT 14 Alkaline Phosphatase 33 L Troponin I < 0.05 Total Protein 4.5 L Albumin 2.0 L Vitamin B12 Folate Stl C.difficile Tox PCR Negative SARS-CoV-2 (PCR) Nasopharyn COVID-19 PCR Pathology Consult Spec Ref Test Perform Site 03/12/20 06:25 WBC 1.88 L* RBC 2.20 L Hgb 7.8 L Hct 23.3 L MCV 105.9 H MCH 35.5 H MCHC 33.5 RDW 17.2 H Plt Count 103 L MPV 10.9 Immature Gran % 0.0 Neutrophils % 66.5 Lymphocytes % 24.5 Monocytes % 7.4 Eosinophils % 1.6 Basophils % 0.0 Nucleated RBC % 0 Absolute Neutrophils 1.25 Absolute Lymphocytes 0.46 L Absolute Monocytes 0.14 Absolute Eosinophils 0.03 Absolute Basophils 0.00 RBC Morphology See below Anisocytosis 1+ Macrocytosis 1+ Sodium Potassium Chloride Carbon Dioxide Anion Gap BUN Creatinine Estimated GFR/1.73 m2 Glucose Calcium Magnesium Total Bilirubin AST ALT Alkaline Phosphatase Troponin I Total Protein Albumin Vitamin B12 Folate Stl C.difficile Tox PCR SARS-CoV-2 (PCR) Nasopharyn COVID-19 PCR Pathology Consult Spec Ref Test Perform Site
--- NOTE | 2020-03-12 17:23 | W.PALLCONSUL ---
History of Present Illness History of Present Illness Chief Complaint: help with goals of care in pt with pancytopenia and poss colon cancer Narrative: I was asked to meet with Josiane by Dr Curiel, hospitalist. He is trying to verify that she wants to pursue her 2 newly identified problems of pancytopenia and a suspicious lesion in her colon. She is weak, in bed, nauseated. She does not feel well. She has known HIV with AIDS. Her white count has been dropping x several months. She now has low platelets and low H/H. Imaging showed thickening of her rectum. She sees Brittanie Pina, [employer] and Dr Myers, Infectious Disease from [facility] to treat her HIV/AIDS. She sees GI, Dr Ovalle, at [facility] to treat her GI issues, including a recent esophageal stricture stretching. She is VERY worried about her weight loss of 70 lbs or more in the last year. This is unintentional. Consults Consult date: 03/12/20 Requesting physician: Fabio Curiel Assessment and Plan Assessment and plan (1) Palliative care patient: Status: Chronic Assessment and plan: will continue to follow once she gets home again (2) Abnormal CT of the abdomen: Status: Chronic Assessment and plan: wants to pursue any potential cancers aggressively (3) Pancytopenia: Status: Acute Assessment and plan: could be due to her end-stage HIV./AIDS needs hematology work up (4) Weight loss: Status: Chronic Assessment and plan: severe could be due to AIDS could be due to suspected cancer (5) Human immunodeficiency virus infection: Status: Chronic Assessment and plan: CD4 count <50 not absorbing her HIV medications well ID worried about her they have been working with her for years and she has never been this ill unclear if she would qualify for aggressive treatment of any kind Qualifiers: HIV symptom status: symptomatic Qualified Code(s): B20 - Human immunodeficiency virus [HIV] disease (6) Full code status: Status: Chronic (7) Goals of care, counseling/discussion: Status: Acute Assessment and plan: Josiane was very clear that she wants full treatment, as aggressive as possible not ready to consider comfort measures or hospice (8) Chronic diarrhea: Status: Chronic Assessment and plan: concerning for being linked colon cancer or to a chronic infection linked to her HIV NEEDS FURTHER WORK UP bloody, per pt Review of Systems Narrative: Constitutional: alert and oriented, thin body habitus, appears sickly. HEENT: Denies trauma, headaches, blurry vision, nasal discharge, sore throat, trouble swallowing. Chest: Denies chest pain, palpitations, irregular rhythm, hypertension. Respiratory: Denies hemoptysis. Positive shortness of breath and cough. GI: Denies constipation. Positive abdominal pain, nausea vomiting, incontinent of stool with diarrhea. : Denies dysuria, hematuria, flank pain, rectal bleeding. Neuro: Denies dizziness, blurry vision, syncope, headache or facial numbness. Hematologic: easy bruising, Constitutional Constitutional: Reports fatigue Psychiatric Psychiatric: Reports depression, Reports difficulty concentrating and Reports anhedonia Endocrine Endocrine: Reports fatigue Hematologic/Lymphatic Hematologic/Lymphatic: Reports easy bruising [facility] Medical History (Updated 03/15/20 @ 17:36 by Josiane Ovalle MD) Anxiety Chronic diarrhea stool reported as either bloody or black in color Chronic headache Colon polyposis Depression Focal epilepsy with impairment of consciousness, intractable Full code status wants aggressive treatment for all health issues Gastroesophageal reflux disease with esophagitis (02/10/12) LA grade D esophagitis Upper GI ednoscopy 06/23/15 at [facility] 07/31/15-[facility] upper GI endoscopy-benign appearing esophageal stenosis 01/14/20-Upper GI endoscopy-biopsies taken Goals of care, counseling/discussion wants aggressive care would want chemo and surgery HH (hiatus hernia) (10/16/15) Dr Ramesh Johnson, [facility] 02/05/20 [facility] [place]o 4 cm by UGI Human immunodeficiency virus infection (02/26/90) Dr. Antony Myers, , [facility] ID Hx of meningitis Hyperlipidemia Hyperlipidemia (02/10/12) Insomnia Medication overuse headache Migraine headache with aura Palliative care patient Pruritus Rosacea (07/17/12) dr lopez Seizure disorder treated with craniotomy Seizures, generalized convulsive Temporal sclerosis Vitamin D deficiency Surgical History Colonoscopy - MAC (12/09/13) per Dr. Wren , hemorroids banded, 3 polyps biopsied Endoscopy (10/16/15) Dr Ramesh Johnson [facility] S/P brain surgery Family History (Updated 03/15/20 @ 17:30 by Josiane Ovalle MD) Sister Headache Family estrangement Mother , age 87 from lung cancer Lung cancer Father Parent-child estrangement nec Son Parent-child estrangement nec Social History (Updated 03/15/20 @ 17:33 by Josiane Ovalle MD) Smoking/Tobacco Use Status: Current every day Tobacco Type: cigarettes Tobacco: How many years used: 45 Smoking risk assessment performed?: Yes Alcohol Intake: former Year quit: 2019 Counseling provided: provider counseling Details: 2-3 beers a week, when socializing Drug use: Never Substance use type: does not use Details: smokes 4 packs per week no alcohol for over 3 months Caregiver/Support person: No Household members: none Housing: apartment Number of Children: 1 Education Level: high school Do you need help understanding health information?: Always current occupation: disabled Sexually active: Yes Do you think of yourself as: straight/heterosexual What is your relationship status?: How often do you talk on the phone with friends or family?: never How often do you get together with friends or relatives?: never Panel score (0-1 are the most socially isolated patients): 0 What type of physical activity do you participate in: none, sedentary lifestyle and additional Details: too weak to walk Feb 2020 Special kingsley needs: No Agree to transfusion: Yes Seatbelt use: always Helmet use: Yes Drive intox or ride w/intox mobile lounge driver or operator: No Water heater temp set <120 deg: Yes Working smoke detector in home: Yes Fire extinguisher in home: Yes Carbon monox detector in home: Yes Firearms in home: No In current or past relationships, have you been: made to feel afraid Do you feel safe at home: No Do you feel safe in your relationship?: Yes Additional Social history: lives alone on the 3rd floor - unable to navigate stairs due to weakness and legs hurt and are wobbly cut off from son and sister; father unknown no friends she can list as DPOA Exam Const General: cooperative, comfortable, no acute distress, frail appearing and ill appearing chronically Nutritional Appearance: average body habitus Orientation: alert, awake, oriented x3 and other (poor historian) HENMT Head: normal to inspection, normocephalic and atraumatic Resp Effort & Inspection: normal respiratory effort Auscultation: clear to auscultation bilaterally and diminished lung sounds bilaterally (bases) Cardio Rate: regular rate Rhythm: regular rhythm Heart Sounds: no murmurs GI Inspection: normal to inspection and non-distended Palpation: soft, not firm, no guarding, no masses, not rigid and tender in the RLQ and in the RUQ Auscultation: normal bowel sounds Skin General skin exam: rashes and/or lesions noted Neuro General: patient alert, patient awake, patient oriented x3, moves all extremities and no focal motor deficits Cranial Nerves: CN's II-XI intact bilaterally Extrem General: normal to inspection, full ROM and no pedal edema Psych Mental Status: mental status grossly normal Speech and Movement: speech and movement normal Mood: congruent mood Affect: normal affect Results Last Vital Signs Temp 97.7 F 03/12/20 15:37 Pulse 67 03/12/20 15:37 Resp 18 03/12/20 15:37 BP 110/74 03/12/20 15:37 Pulse Ox 96 03/12/20 15:37 Labs Result diagrams: 03/13/20 06:14 03/13/20 06:14 Labs: Laboratory Results - last 24 hr 03/11/20 03/11/20 03/11/20 15:45 15:56 17:35 WBC RBC Hgb Hct MCV MCH MCHC RDW Plt Count MPV Immature Gran % Neutrophils % Lymphocytes % Monocytes % Eosinophils % Basophils % Nucleated RBC % Absolute Neutrophils Absolute Lymphocytes Absolute Monocytes Absolute Eosinophils Absolute Basophils RBC Morphology Anisocytosis Macrocytosis Sodium Potassium Chloride Carbon Dioxide Anion Gap BUN Creatinine Estimated GFR/1.73 m2 Glucose Calcium Magnesium Total Bilirubin AST ALT Alkaline Phosphatase Troponin I < 0.05 Total Protein Albumin Stl C.difficile Tox PCR SARS-CoV-2 (PCR) Negative Nasopharyn COVID-19 PCR Not Applicable Pathology Consult Spec Cancelled Ref Test Perform Site [place] [facility] 03/11/20 03/12/20 03/12/20 17:50 06:25 06:25 WBC 1.88 L* RBC 2.20 L Hgb 7.8 L Hct 23.3 L MCV 105.9 H MCH 35.5 H MCHC 33.5 RDW 17.2 H Plt Count 103 L MPV 10.9 Immature Gran % 0.0 Neutrophils % 66.5 Lymphocytes % 24.5 Monocytes % 7.4 Eosinophils % 1.6 Basophils % 0.0 Nucleated RBC % 0 Absolute Neutrophils 1.25 Absolute Lymphocytes 0.46 L Absolute Monocytes 0.14 Absolute Eosinophils 0.03 Absolute Basophils 0.00 RBC Morphology See below Anisocytosis 1+ Macrocytosis 1+ Sodium 140 Potassium 3.1 L Chloride 106 Carbon Dioxide 26.5 Anion Gap 7.5 BUN 6 L Creatinine 0.73 Estimated GFR/1.73 m2 >= 60.00 Glucose 109 H Calcium 7.5 L Magnesium 1.9 Total Bilirubin 0.3 AST 18 ALT 14 Alkaline Phosphatase 33 L Troponin I Total Protein 4.5 L Albumin 2.0 L Stl C.difficile Tox PCR Negative SARS-CoV-2 (PCR) Nasopharyn COVID-19 PCR Pathology Consult Spec Ref Test Perform Site
[2020-03-12] MEDS: Protein Nutritional Supplement 16 GM 1 OUNCE PACKET PO (19:47)
[2020-03-12] MEDS: Folic Acid 1 MG TAB PO (19:48)
[2020-03-13] MEDS: Ketorolac 15 MG/ML VIAL IVP ×2 (00:24→09:38)
[2020-03-13] MEDS: Ondansetron 4 MG/2 ML VIAL IVP ×2 (00:24→09:38)
[2020-03-13 03:22] VITALS: BP 103/68; PULSE 64; RESP 18; TEMP 36; O2SAT 96
[2020-03-13] MEDS: POTASSIUM CHLORIDE/D5-0.45NACL 1,000 ML 100 MEQ IV (05:21)
[2020-03-13 06:27] LABS: Abs Immature Grans 0.01 10^3/uL (0.0-0.06); Absolute Basophil Count 0.01 10^3/uL (0.0-0.2); Absolute Eosinophil Count 0.03 10^3/uL (0.0-0.7); Absolute Lymphocyte Count 0.47 10^3/uL (1.2-3.4); Absolute Monocyte Count 0.11 10^3/uL (0.1-0.8); Basophils % 0.4; Eosinophils % 1.1; HCT 27.2 % (36.0-46.0); Immature Grans % 0.4; Lymphocytes % 17.2; MCH 35.6 pg (27.0-33.0); MCHC 33.1 % (32.0-36.0); MCV 107.5 fL (80-95); MPV 10.6 fL (8.0-11.0); Neutrophils % 76.9; Nucleated RBC 0 %; RBC 2.53 10^6/uL (3.93-5.22); RDW 17.4 % (11.7-14.6); WBC 2.73 10^3/uL (4.4-10.8)
[2020-03-13 06:43] LABS: ALT 19 U/L (14-59); AST 23 U/L (15-37); Albumin 2.4 g/dL (3.4-5.0); Alkaline Phosphatase 41 U/L (46-116); Anion Gap 6.6 mmol/L (3-11); BUN 10 mg/dL (7-18); Bilirubin, Total 0.5 mg/dL (0.2-1.0); CO2 24.4 mmol/L (21.0-32.0); CREATININE 0.78 mg/dL (0.55-1.02); Calcium 7.7 mg/dL (8.5-10.1); Chloride 108 mmol/L (98-107); Glucose 110 mg/dL (74-106); Potassium 4.3 mmol/L (3.5-5.1); Sodium 139 mmol/L (136-145); Total Protein 5.4 g/dL (6.4-8.2)
[2020-03-13 07:05] LABS: Anisocytosis 1+; Diff Comment Agrees w/ Instrument; Macrocytosis 1+; Platelet Count 114 10^3/uL (130-400); Poikilocytes 1+
[2020-03-13 07:22] VITALS: BP 103/66; PULSE 76; RESP 17; TEMP 36.6; O2SAT 92
[2020-03-13] MEDS: Normal Saline Flush 10 ML SYR IVP ×3 (08:56→09:39)
[2020-03-13] MEDS: Metoclopramide 10 MG/2 ML VIAL IVP (08:56)
[2020-03-13] MEDS: Folic Acid 1 MG TAB PO (08:57)
[2020-03-13] MEDS: Multivitamin TAB 1 TAB PO (08:57)
[2020-03-13] MEDS: Thiamine 100 MG TAB PO (08:57)
[2020-03-13] MEDS: Pantoprazole 40 MG VIAL IVP (08:57)
[2020-03-13] MEDS: Acetaminophen 325 MG TAB 650 MG PO (09:38)
--- NOTE | 2020-03-13 10:24 | DSE_ITS ---
Date of service: 03/13/20 Time of Service: 10:24 DS: Diagnosis Discharge Diagnosis (1) Electrolyte depletion: Status: Acute (2) Pancytopenia: Status: Acute (3) Human immunodeficiency virus infection: Status: Acute (4) Focal epilepsy with impairment of consciousness, intractable: Status: Chronic Discharge Plan Disposition Patient Disposition: SNF (LEVEL 1) [facility] Condition: Stable Discharge Details Reason For Visit: HYPOKALEMIA, NAUSEA VOMITING Admit Date/Time: 03/11/20 15:24 Admit Provider: Fabio Sigala Attending Provider: Fabio Sigala Primary Care Provider: Sarah Alejo Hospital Course Hospital Course: Patient was admitted after presenting to the ED for complaints of abdominal pain nausea and vomiting and diarrhea. Nausea and vomiting and diarrhea have been going on for at least a couple of months. She was found to have hypokalemia and hypomagnesemia which were repleted. Patient has a history of known esophageal strictures and underwent EGD with esophageal dilatation on February 05, [address] Johan Ovalle from [facility]. In spite of that she says she has not been able to keep down her medications which she feels is the cause for not being able to take her HIV antiretroviral medications, which she has not filled since December. She is pancytopenic and CT scan of her abdomen pelvis yesterday allegedly shows evidence of a hemicolectomy although the patient denies a history of the same. Abdominal scars only show right upper quadrant scar consistent with her history of cholecystectomy. CT scan also allegedly shows 6 cm length of 1 cm thickening of the rectosigmoid colon. Her case was discussed with with her infectious diseases provider, Dr Myers, who recommended checking viral load which is still pending. also she should be ref erred outpatient to GI for further workup regarding CT findings. she also had a renal ultrasound which does recommend MRI follow up. IMPRESSION: Indeterminate ultrasound and CT findings regarding a hyperdense right lower pole renal mass, likely cyst. Neoplastic disease is not excluded and renal protocol MRI including pre and post contrast examination is recommended. Her electrolytes has been replaced. She remains too weak to safely return home and case management has secured a bed at [facility] and rehab for further rehabilitation. discussed with DR Sigala. Home Meds and New Rx's Prescriptions: New Phlexy-Vits Packet 1 oz PO TID Qty: 0 RF: 0 thiamine mononitrate (vit B1) [Vitamin B-1 (mononitrate)] 100 mg Tablet 100 mg PO DAILY 30 Days Qty: 30 RF: 0 potassium chloride 20 mEq Packet 20 meq PO DAILY Qty: 30 RF: 0 folic acid 1 mg Tablet 1 mg PO BID Qty: 60 RF: 0 Continued lamivudine 10 mg/mL solution 150 mg PO BID RF: 0 multivitamin with iron Tablet 1 tab PO DAILY RF: 0 omeprazole 20 mg capsule,delayed release(DR/EC) 20 mg PO DAILY RF: 0 clonazepam 1 mg tablet,disintegrating 1 mg PO BID Qty: 60 RF: 0 hydroxyzine HCl 10 mg/5 mL solution 25 mg PO TID RF: 0 Vimpat 10 mg/mL solution 50 mg PO BID RF: 0 Vemlidy 25 mg tablet 25 mg PO DAILY RF: 0 Tivicay 50 mg tablet 50 mg PO BID RF: 0 Discontinued sulfamethoxazole-trimethoprim [Sulfatrim] 200-40 mg/5 mL suspension 10 ml PO DAILY RF: 0 Discharge Instructions Instructions: Hypokalemia (DC), AIDS (DC) Additional Instructions: take all medication as prescribed. routine rehabilitation schedule Stand Alone Forms: Nursing Discharge Form Referrals: Sarah Alejo NP [Primary Care Provider] - (on discharge from rehab) Antony Myers DO [OSTEOPATHIC DOCTOR] - (on discharge from rehab ) Activity:: Activity as Tolerated Equipment/Supplies:: Walker Diet:: As Tolerated Discharge Orders Discharge Orders: Discharge Order (Routine); Ordered 03/13/20 Ordered By: Suri Ballard DS: Summary Status at Discharge Functional status at discharge: uses cane/walker Overall status at discharge: patient is not back to baseline Mental Status: mental status grossly normal Speech and Movement: speech and movement normal Mood: congruent mood Affect: normal affect Exam Const General: cooperative, comfortable, no acute distress, frail appearing and ill appearing chronically Nutritional Appearance: average body habitus Orientation: alert, awake, oriented x3 and other (poor historian) HENUT Head: normal to inspection, normocephalic and atraumatic Resp Effort & Inspection: normal respiratory effort Auscultation: clear to auscultation bilaterally and diminished lung sounds bilaterally (bases) Cardio Rate: regular rate Rhythm: regular rhythm Heart Sounds: no murmurs GI Inspection: normal to inspection and non-distended Palpation: soft, not firm, no guarding, no masses, not rigid and tender in the RLQ and in the RUQ Auscultation: normal bowel sounds Skin General skin exam: rashes and/or lesions noted Neuro General: patient alert, patient awake, patient oriented x3, moves all extremities and no focal motor deficits Cranial Nerves: CN's II-XI intact bilaterally Extrem General: normal to inspection, full ROM and no pedal edema Psych Mental Status: mental status grossly normal Speech and Movement: speech and movement normal Mood: congruent mood Affect: normal affect DS: Data Vitals/I&O Vitals and I&O: Vital Signs Temperature 36.6 C 03/13/20 07:22 Temperature Source Tympanic 03/13/20 07:22 Pulse 76 03/13/20 07:22 Pulse Rhythm Regular 03/13/20 01:09 Pulse 78 03/11/20 16:01 Respiratory Rate 17 03/13/20 07:22 Respiratory Effort Non-Labored 03/13/20 01:09 Respiratory Depth Normal 03/13/20 01:09 Respiratory Pattern Normal 03/13/20 01:09 Blood Pressure 103/66 03/13/20 07:22 Blood Pressure Mean 73 03/11/20 16:01 Blood Pressure Position Supine 03/11/20 12:37 Pulse Oximetry 92 03/13/20 07:22 Oxygen Delivery Method Room Air 03/13/20 07:22 Oxygen Flow Rate 0 03/13/20 07:22 Pain Level 9 03/13/20 09:38 Comment 03/12/20 11:32 Intake & Output 03/12/20 03/12/20 03/13/20 11:59 23:59 11:59 Intake Total 2077.500 / 3705.833 1628.333 / 3705.833 1155 / 1155 Output Total 450 / 725 275 / 725 425 / 425 Balance 1627.500 / 2980.833 1353.333 / 2980.833 730 / 730 Intake: IV 1657.500 / 2925.833 1268.333 / 2925.833 955 / 955 Oral 420 / 780 360 / 780 200 / 200 Output: Urine 450 / 725 275 / 725 425 / 425 Other: Urine Color Straw Straw Light Deidre Light Deidre Urine Appearance Clear Cloudy Sediment Stool Occult Blood Negative Positive Stool Size Small Small Stool Characteristics Soft Liquid Liquid Black Brown Data Completed and Pending Labs on day of discharge: Labs from last 24 hours 03/13/20 03/13/20 03/12/20 06:14 06:14 10:45 WBC 2.73 L D RBC 2.53 L Hgb 9.0 L Hct 27.2 L MCV 107.5 H MCH 35.6 H MCHC 33.1 RDW 17.4 H Plt Count 114 L MPV 10.6 Immature Gran % 0.4 Neutrophils % 76.9 Lymphocytes % 17.2 Monocytes % 4.0 Eosinophils % 1.1 Basophils % 0.4 Nucleated RBC % 0 Absolute Neutrophils 2.10 Absolute Lymphocytes 0.47 L Absolute Monocytes 0.11 Absolute Eosinophils 0.03 Absolute Basophils 0.01 RBC Morphology See below Poikilocytosis 1+ Anisocytosis 1+ Macrocytosis 1+ Sodium 139 Potassium 4.3 D Chloride 108 H Carbon Dioxide 24.4 Anion Gap 6.6 BUN 10 Creatinine 0.78 Estimated GFR/1.73 m2 >= 60.00 Glucose 110 H Calcium 7.7 L Total Bilirubin 0.5 AST 23 ALT 19 Alkaline Phosphatase 41 L Total Protein 5.4 L Albumin 2.4 L % CD3 Cells Pending % CD4 Cells Pending Absolute CD4 Count Pending % CD8 Cells Pending Pathology Consult Spec 03/12/20 03/11/20 06:25 15:56 WBC RBC Hgb Hct MCV MCH MCHC RDW Plt Count MPV Immature Gran % Neutrophils % Lymphocytes % Monocytes % Eosinophils % Basophils % Nucleated RBC % Absolute Neutrophils Absolute Lymphocytes Absolute Monocytes Absolute Eosinophils Absolute Basophils RBC Morphology Poikilocytosis Anisocytosis Macrocytosis Sodium Potassium Chloride Carbon Dioxide Anion Gap BUN Creatinine Estimated GFR/1.73 m2 Glucose Calcium Total Bilirubin AST ALT Alkaline Phosphatase Total Protein Albumin % CD3 Cells % CD4 Cells Absolute CD4 Count % CD8 Cells Pathology Consult Spec Cancelled Preliminary micro results at discharge 03/11/20 13:40 Urine Culture - Preliminary Urine - Reflex from [facility] Medical History Anxiety Chronic headache Colon polyposis Depression Focal epilepsy with impairment of consciousness, intractable Gastroesophageal reflux disease with esophagitis (02/10/12) LA grade D esophagitis Upper GI ednoscopy 06/23/15 at [facility] 07/31/15-[facility] upper GI endoscopy-benign appearing esophageal stenosis 01/14/20-Upper GI endoscopy-biopsies taken HH (hiatus hernia) (10/16/15) Dr Ramesh Johnson, [facility] 02/05/[place] [facility] [place] 4 cm by UGI Human immunodeficiency virus infection (02/26/90) Dr. Antony Myers, DO, [facility] ID Hx of meningitis Hyperlipidemia Hyperlipidemia (02/10/12) Insomnia Medication overuse headache Migraine headache with aura Pruritus Rosacea (07/17/12) dr lopez Seizures, generalized convulsive Temporal sclerosis Vitamin D deficiency Surgical History Colonoscopy - MAC (12/09/13) per Dr. Wren , hemorroids banded, 3 polyps biopsied Endoscopy (10/16/15) Dr Ramesh Jonhson [facility] S/P brain surgery Family History Sister Headache Social History Smoking/Tobacco Use Status: Current every day Tobacco Type: cigarettes Tobacco: How many years used: 45 Smoking risk assessment performed?: Yes Alcohol Intake: former Details: 2-3 beers a week, when socializing Drug use: Never Substance use type: does not use Details: smokes 4 packs per week no alcohol for over 3 months Household members: none and other Details: Number of Children: 1 current occupation: disabled Sexually active: Yes Do you think of yourself as: straight/heterosexual What type of physical activity do you participate in: walking and weight lifting Seatbelt use: always Helmet use: Yes Drive intox or ride w/intox regional dedicated truck driver: No Water heater temp set <120 deg: Yes Working smoke detector in home: Yes Fire extinguisher in home: Yes Carbon monox detector in home: Yes Firearms in home: No Do you feel safe at home: No Do you feel safe in your relationship?: Yes Additional Social history: lives alone on the 3rd floor - unable to navigate stairs due to weakness and legs hurt and are wobbly
[2020-03-13 11:30] VITALS: BP 116/71; PULSE 66; RESP 16; TEMP 36.4; O2SAT 99
--- NOTE | 2020-03-13 11:41 | CMDISCH_ITS ---
LACE Index Scoring Tool - Questions: Length of Stay (in days): 2 Acuity (Admit via E.D.?): Yes Comorbidities: AIDS E.D. Visits: 1 - Answers: Total Score: 11 Risk of Readmission: High Risk Care Management Discharge Reason for Hospitalization: Hypokalemia, N/V Discharge Plan: Josiane will be discharged to [facility] for a short rehab stay prior to returning home. She will transport via the facility's W/C van. [facility] will manage her further needs. Patient/Family Education Needs: Review discharge instructions, discuss Ask Me Three. Services Needed at Discharge: Senior Living Facility ([facility])
--- NOTE | 2020-03-13 12:49 | PT.INDS ---
Date of service: 03/13/20 Time of Service: 12:49 PT Notes Visit Reasons: HYPOKALEMIA, NAUSEA VOMITING Physical Therapy Inpatient Discharge Summary Date: 03/13/2020 Date of service: 03/12/2020 only This is a clinical summary of care provided on the duration of dates listed above. No charge was made in the completion of this documentation. Referring Doctor: Fabio Jarrell MD PT Orders: PT CONSULT: Exacerbation of chronic cond Precautions: Fall. Standard universal precautions for HIV. Activity as tolerated. Patient Profile/Admitting Diagnosis: Josiane is a 65-year-old female who presented to the ED on 03/11/2020 with complaints of nausea, vomiting, and diarrhea associated with abdominal pain and increasing weakness resulting to difficulty with performing activities of daily living at home. She is diagnosed with electrolyte depletion, pansensitive cytopenia, HIV, focal epilepsy with impairment of consciousness, abdominal CT of the abdomen, renal cyst, weight loss, GERD, and diarrhea. PMHX: Medical History Anxiety Chronic headache Colon polyposis Depression Focal epilepsy with impairment of consciousness, intractable Gastroesophageal reflux disease with esophagitis (02/10/12) LA grade D esophagitis Upper GI ednoscopy 06/23/15 at [facility] 07/31/15-[facility] upper GI endoscopy-benign appearing esophageal stenosis 01/14/20-Upper GI endoscopy-biopsies taken HH (hiatus hernia) (10/16/15) Dr Ramesh Johnson, [facility] 02/05/20 [facility] [place] 4 cm by UGI Human immunodeficiency virus infection (02/26/90) Dr. Antony Myers, DO, [facility] ID Hx of meningitis Hyperlipidemia Hyperlipidemia (02/10/12) Insomnia Medication overuse headache Migraine headache with aura Pruritus Rosacea (07/17/12) dr lopez Seizures, generalized convulsive Temporal sclerosis Vitamin D deficiency Surgical History Colonoscopy - MAC (12/09/13) per Dr. Wren , hemorroids banded, 3 polyps biopsied Endoscopy (10/16/15) Dr Ramesh Johnson [facility] S/P brain surgery Social History/Home Situation: Lives alone on the third floor of an apartment building with 30 steps to enter with a rail on 1 side. Josiane has not been going out of the house and has had her downstairs neighbor help out with all her outdoor errands for the past 4 weeks due to increasing weakness. Has been using a long umbrella as her cane when she is ambulating inside the house. Equipment Owned/DME: None Subjective: NT. See most recent BILLET INSPECTOR notes. Objective: General Observation: NT. See most recent BILLET INSPECTOR notes. Mental Status: NT. See most recent BILLET INSPECTOR notes. Pain: NT. See most recent BILLET INSPECTOR notes. ROM: Right Upper Extremity: Shoulder Flexion WFL. Shoulder abduction WFL. Elbow flexion WFL. Wrist flexion WFL. Opening and closing of hand WFL. Left Upper Extremity: Shoulder Flexion WFL. Shoulder abduction WFL. Elbow flexion WFL. Wrist flexion WFL. Opening and closing of hand WFL. Right Lower Extremity: Hip flexion WFL. Hip abduction WFL. Knee flexion WFL. Ankle dorsiflexion WFL. Ankle plantarflexion WFL. Left Lower Extremity: Hip flexion WFL. Hip abduction WFL. Knee flexion WFL. Ankle dorsiflexion WFL. Ankle plantarflexion WFL. Strength: Right Upper Extremity: Shoulder flexors 4-/5. Shoulder abductors 4-/5. Elbow flexors 4-/5. Elbow extensors 4-/5. Heavy Duty Truck Mechanic strong. Left Upper Extremity: Shoulder flexors 4-/5. Shoulder abductors 4-/5. Elbow flexors 4-/5. Elbow extensors 4-/5. Heavy Duty Truck Mechanic strong. Right Lower Extremity: Hip flexors 4-/5. Hip abductors 4-/5. Knee flexors 4-/5. Knee extensors 3+/5. Ankle dorsiflexors 4-/5. Ankle plantarflexors 4-/5. Left Lower Extremity: Hip flexors 4-/5. Hip abductors 4-/5. Knee flexors 4-/5. Knee extensors 3+/5. Ankle dorsiflexors 4-/5. Ankle plantarflexors 4-/5. Sensation: Intact as to pain and pressure on bilateral lower extremities. Bed Mobility/Transfers: Supine to sit SBA with HOB at 30 degrees Sit to supine contact-guard assist Sit to stand contact-guard assist Stand to sit contact-guard assist Bed to chair contact-guard assist Gait: Guided patient through level surface ambulation of up to 45 feet using a front wheeled walker with weightbearing as tolerated on bilateral lower extremities with contact-guard assist and IV pole management of PT with wheelchair follow of VICKI Vázquez. Josiane demonstrates minimal weightbearing placed on the left LE with just the toes touching the floor and the left heel elevated due to 10/10 pain complaint. Reports fatigue as well as abdominal and anal pain with movement and weight bearing. Balance: Static Sitting: Normal Dynamic Sitting: Normal Static Standing: Fair Dynamic Standing: Fair Assessment: Josiane continues to demonstrate the need for the use of a front wheeled walker for all mobility ADL performance to offload the left knee and reduce fall risk, walking, impairment generalized weakness, and increased risk for falls which limited ability to thrive at home alone. She will benefit from shelter facility placement in order to gradually progress strength, balance, and activity tolerance prior to discharge to home. Patient continues to present with clinical signs and symptoms consistent with current/admitting diagnoses that have resulted to mobility limitations, gait instability, generalized weakness, and impairment of motor control as demonstrated by the following impairment level findings: 1. Decreased strength to B UE/LE major muscle groups 2. Impaired sitting/standing balance 3. Impaired activity tolerance 4. Easy fatigability 5. Left knee pain at 10/10 Impairments are continuing to contribute to the following functional limitations: 1. Increased dependence with transfers 2. Inability to safely ambulate without assistive device and physical assistance 3. Increase completion time for mobility ADL performance 4. Increased fall risk 5. Inability to negotiate steps alone safely Goals: Goals X1 week 1. Supine-Sit independent NOT MET 2. Sit-Supine independent NOT MET 3. Sit-Stand independent NOT MET 4. Stand-Sit independent NOT MET 5. Bed-Chair independent NOT MET 6. Chair-Bed independent NOT MET 7. Independent gait on level surface with use of front wheeled walker for at least 300 feet without report of pain nor dyspnea NOT MET 8. Independent stair negotiation while holding onto unilateral rail plus SPC for at least 30 steps without report of pain nor dyspnea NOT MET 9. Good static and dynamic standing balance/tolerance NOT MET DISCHARGE RECOMMENDATIONS: Patient will benefit from shelter facility placement for continued skilled physical therapy services in order to progress mobility level, strength, and balance in preparation for a safe discharge to home. Will benefit from the use of a front wheeled walker. TREATMENT CODE/TIME: [place] Thank you for the opportunity to participate in the care of this patient. Stacy Dalal PT, DPT, CLT [facility] [place], [place]
[2020-03-16 15:00] LABS: HIV 1 RNA Qualitative Detected copies/mL (Undetected); HIV 1 RNA Quantitative 10069 copies/mL (Undetected)
[2020-03-16 16:11] LABS: CD3 86 % (62-87); CD4 6 % (35-63); CD8 81 % (10-35)
== END 2020-03-13 12:46 | disposition skilled nursing facility (03) ==
LOC: ER 15:46 → MS 16:19
PROVIDERS: Nurse Practitioner Acute Care; Admitting Provider Internal Medicine; Emergency Provider Registered Nurse Emergency; PCP Nurse Practitioner; Visit Provider Internal Medicine
DX: E87.6 Hypokalemia (principal); D61.818 Other pancytopenia; R19.7 Diarrhea, unspecified; K64.8 Other hemorrhoids; K63.5 Polyp of colon; R53.1 Weakness; G43.909 Migraine, unspecified, not intractable, without status migrainosus; E78.5 Hyperlipidemia, unspecified; K22.2 Esophageal obstruction; F32.9 Major depressive disorder, single episode, unspecified; F41.9 Anxiety disorder, unspecified; B20 Human immunodeficiency virus [HIV] disease; E55.9 Vitamin D deficiency, unspecified; G40.119 Localization-related (focal) (partial) symptomatic epilepsy and epileptic syndromes with simple partial seizures, intractable, without status epilepticus; E83.42 Hypomagnesemia; R93.3 Abnormal findings on diagnostic imaging of other parts of digestive tract; R63.4 Abnormal weight loss; Z68.21 Body mass index [BMI] 21.0-21.9, adult; K21.00 Gastro-esophageal reflux disease with esophagitis, without bleeding; K57.30 Diverticulosis of large intestine without perforation or abscess without bleeding; Z98.0 Intestinal bypass and anastomosis status; Z11.52 Encounter for screening for COVID-19
CPT/HCPCS: 36415; 74177; 76770; 80053; 86850; 86900; 86901; 87493; 87505; 87536; 93005; 96361; 96365; 96367; 97163; 97530; 99217; 99220; 99233; 99255; 99285; U0003; 71260; 73564; 81003; 81015; 82270; 82607; 82746; 83605; 83630; 83735; 84484; 85025; 85045; 85610; 86359; 86360; 87086; 93010; 99218; 99226; G0378; J1885; J2405; J2765; J3475; J3480; J3490

== ENCOUNTER 2020-03-13 17:54 | Outpatient (REF) | payer MEDICARE, MEDICAID, SELFPAY ==
[2020-03-16 12:50] LABS: COVID-19 RT-PCR UVMMC Result Negative (Negative)
== END 2020-03-13 18:14 ==
LOC: LBN 17:54
PROVIDERS: PCP Nurse Practitioner; Visit Provider Nurse Practitioner Adult Health
DX: Z11.52 Encounter for screening for COVID-19 (principal)
CPT/HCPCS: U0003

== ENCOUNTER 2020-03-14 18:52 | Outpatient (REF) | payer MEDICARE, MEDICAID, SELFPAY ==
[2020-03-14 19:38] LABS: Absolute Basophil Count 0.01 10^3/uL (0.0-0.2); Absolute Eosinophil Count 0.05 10^3/uL (0.0-0.7); Absolute Monocyte Count 0.16 10^3/uL (0.1-0.8); Absolute Neutrophil Count 1.97 10^3/uL (1.2-6.7); Basophils % 0.3; Eosinophils % 1.6; HCT 30.1 % (36.0-46.0); HGB 9.7 g/dL (11.2-15.7); Lymphocytes % 31.3; MCH 35.4 pg (27.0-33.0); MCHC 32.2 % (32.0-36.0); MCV 109.9 fL (80-95); MPV 10.8 fL (8.0-11.0); Neutrophils % 61.8; Nucleated RBC 0 %; Platelet Count 138 10^3/uL (130-400); RBC 2.74 10^6/uL (3.93-5.22); RDW 17.5 % (11.7-14.6); WBC 3.19 10^3/uL (4.4-10.8)
[2020-03-14 19:46] LABS: Anion Gap 5.2 mmol/L (3-11); BUN 8 mg/dL (7-18); CO2 26.8 mmol/L (21.0-32.0); CREATININE 0.89 mg/dL (0.55-1.02); Calcium 8.4 mg/dL (8.5-10.1); Chloride 107 mmol/L (98-107); Glucose 74 mg/dL (74-106); Magnesium 1.9 mg/dL (1.8-2.4); Potassium 4.5 mmol/L (3.5-5.1); Sodium 139 mmol/L (136-145)
[2020-03-14 19:56] LABS: Diff Comment RBC Morph Reviewed
[2020-03-14 19:57] LABS: Macrocytosis 2+
== END 2020-03-14 19:12 ==
LOC: LBN 18:52
PROVIDERS: PCP Nurse Practitioner; Visit Provider Family Medicine
DX: D72.9 Disorder of white blood cells, unspecified (principal)
CPT/HCPCS: 80048; 83735; 85025

== ENCOUNTER → 2020-03-24 07:55 | Outpatient (BNVA) | payer MEDICARE, MEDICAID, SELFPAY | PROVIDERS: PCP Family Medicine; Referring Provider Nurse Practitioner; Visit Provider Psychiatry & Neurology Neurology | DX: G40.119 Localization-related (focal) (partial) symptomatic epilepsy and epileptic syndromes with simple partial seizures, intractable, without status epilepticus (principal); G43.109 Migraine with aura, not intractable, without status migrainosus; G44.40 Drug-induced headache, not elsewhere classified, not intractable; G31.84 Mild cognitive impairment of uncertain or unknown etiology; R13.10 Dysphagia, unspecified; G47.00 Insomnia, unspecified | CPT/HCPCS: 99443 ==

== ENCOUNTER 2020-03-27 16:30 | Outpatient (REF) | payer MEDICARE, MEDICAID, SELFPAY ==
[2020-03-27 18:41] LABS: Abs Immature Grans 0.01 10^3/uL (0.0-0.06); Absolute Basophil Count 0.02 10^3/uL (0.0-0.2); Absolute Eosinophil Count 0.05 10^3/uL (0.0-0.7); Absolute Lymphocyte Count 1.23 10^3/uL (1.2-3.4); Absolute Neutrophil Count 2.72 10^3/uL (1.2-6.7); Basophils % 0.5; Eosinophils % 1.2; HCT 32.1 % (36.0-46.0); HGB 10.4 g/dL (11.2-15.7); Immature Grans % 0.2; Lymphocytes % 28.4; MCH 35.3 pg (27.0-33.0); MCHC 32.4 % (32.0-36.0); MCV 108.8 fL (80-95); MPV 9.6 fL (8.0-11.0); Monocytes % 6.9; Neutrophils % 62.8; Nucleated RBC 0 %; Platelet Count 238 10^3/uL (130-400); RBC 2.95 10^6/uL (3.93-5.22); RDW 14.9 % (11.7-14.6); RDW-SD 60.1 fL; WBC 4.33 10^3/uL (4.4-10.8)
[2020-03-27 18:53] LABS: Anion Gap 4.2 mmol/L (3-11); BUN 14 mg/dL (7-18); CO2 28.8 mmol/L (21.0-32.0); CREATININE 0.7 mg/dL (0.55-1.02); Calcium 8.8 mg/dL (8.5-10.1); Chloride 104 mmol/L (98-107); Glucose 90 mg/dL (74-106); Potassium 4.1 mmol/L (3.5-5.1); Sodium 137 mmol/L (136-145)
== END 2020-03-27 16:50 ==
LOC: LBN 16:30
PROVIDERS: PCP Family Medicine; Visit Provider Nurse Practitioner
DX: B20 Human immunodeficiency virus [HIV] disease (principal); D61.818 Other pancytopenia
CPT/HCPCS: 80048; 85025

== ENCOUNTER 2020-04-29 15:20 | Outpatient (CLI) | payer MEDICARE, MEDICAID, SELFPAY ==
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
== END 2020-04-29 15:21 | disposition home or self-care (01) ==
LOC: CCC 15:29
PROVIDERS: PCP Nurse Practitioner; Visit Provider Nurse Practitioner Family
DX: B20 Human immunodeficiency virus [HIV] disease (principal); R41.82 Altered mental status, unspecified; G40.909 Epilepsy, unspecified, not intractable, without status epilepticus; Z79.899 Other long term (current) drug therapy; R63.4 Abnormal weight loss
CPT/HCPCS: 99214

== ENCOUNTER → 2020-06-02 08:38 | Outpatient (BNVA) | payer MEDICARE, MEDICAID, SELFPAY | PROVIDERS: PCP Nurse Practitioner; Referring Provider Family Medicine; Visit Provider Psychiatry & Neurology Neurology | DX: G40.119 Localization-related (focal) (partial) symptomatic epilepsy and epileptic syndromes with simple partial seizures, intractable, without status epilepticus (principal); G43.109 Migraine with aura, not intractable, without status migrainosus; G31.84 Mild cognitive impairment of uncertain or unknown etiology; R13.10 Dysphagia, unspecified; G47.00 Insomnia, unspecified; B20 Human immunodeficiency virus [HIV] disease | CPT/HCPCS: 99215 ==

== ENCOUNTER 2020-06-10 12:27 | Outpatient (CLI) | payer MEDICARE, MEDICAID, SELFPAY ==
--- NOTE | 2020-06-10 13:29 | CCCE_ITS ---
Date of service: 06/10/20 Time of Service: 12:40 Comprehensive Care Clinic Note Note: [facility] [address] [place] [address] [facility] Visit for Medical Follow Up Name: Josiane Pacheco Medical Record [id number] Date of : 1955 Primary Care Provider: Sarah Alejo NP, KIM Date of Service: 06/10/2020 SUBJECTIVE CC: Home visit for advanced AIDS w wasting, weight loss and diarrhea, blood draw for specialty testing and medication adherence concerns HPI: Josiane states she has been feeling markedly improved now that she has been eating regularly for well over a month now and has gained 10 more pounds since I last saw her about 5 -6 weeks ago. She states she has a little better appetite and has been eating 3 meals a day, some of the [id number] food and some she is cooking herself. She prepares fish and vegetables for herself most nights. She has been weighing herself daily and this morning was 148#, about 10# more than she was when I last saw her. She states she has not missed any of her medication doses for over a month and agrees to have her blood drawn for a HIV PCR viral load and CD4 % and absolute count as requested by her ID specialist, Dr. Myers. She also said that if the results indicated she needed further studies, she felt she may be strong enough to go to the hospital lab for it but if not that I could return to draw more blood if needed. She stated that having Dr. Ovalle of palliative care and I visit her and expressing care for her wellbeing is good for her mental health. She recently saw her neurologist in [facility] and has an appointment with her PCP next week for a check in and to request her neurological care be returned [place] [facility] as she wants to see Dr. Hughes again even though it will mean a longer RCT ride for appointments. She has not run out of her anti-seizure medication and is measuring it with a medicine cup to get the exact amount/dose. ROS Constitutional: Improving energy ? she went for a 2 block walk yesterday, ?It was slow but felt good?; appetite is better, sleep OK. Weight is up which makes her feel ?less hollow?. Skin: Denies rash Head: Denies trauma, head pain Eyes: Denies visual disturbance, has reading glasses Ear/Nose/Throat: Negative Mouth/Teeth: Needs dental Neck: No pain or stiffness CV: Denies chest pain, pressure, palpitations Respiratory: Some smokers cough in the morning, denies dyspnea, hemoptysis GI: No N/V/D/C ? so happy the diarrhea has resolved and not returned, nor rectal bleeding : Negative Musculoskeletal: Denies joint or back pain Endocrine: No polyuria, polydipsia; heat or cold intolerance Lymphatic: Has not noted any enlarged nodes Hematologic: No unusual bleeding, bruising Immunologic: CD4 count is very low 0 last measured 26 - risk for OI Psychiatric: Denies worsening of Anxiety & Depression ? actually feel this is better, bought herself a new air-fryer and is happy with how it cooks ? ?This works great and lifts my spirits. My old one was too big and I could never use it. It also looked like Katina Gallagher?s head.? No SI/HI Allergies/Sensitivities: NKDA Current Medications: Clonazepam 1 mg bid dolutegravir 50 mg daily hydroxyzine 25 mg bid lamuvidine 10 mg/ml solution ? 15 ml bid meloxicam 7.5 mg daily prn sulfamethoxazole-trimethoprim 200-40/ml suspension ? 10 ml daily tenofovir alafenamide 25 mg daily Vimpat 200mg bid Medical / Surgical History Update: No return to ER, no readmit to hospital, had 1st Maderna Covid Vaccine on 06/08/20 and has second scheduled for 07/01/20 Psychiatric History Update: Anxiety less prominent, depression seems improved, feels more engaged in life Social History Update: her 6 yo next door neighbor brings her ?gifts? every day ? usually something she has colored. ?This really lifts my spirits.? Employment: Disabled Health Insurance: Medicare/Medicaid Substance Use: Tobacco: smokes a ?few? cigarettes a day ETOH: none Drug Use: none Family History Update: Nothing new, still hopes to hear from her son one day. Immunization Needed? UTD Health Maintenance: Sees PCP regularly OBJECTIVE Weight: 148#, Temp: 97.4, Pulse: 88, Respirations: 16, Blood Pressure: 118/70 General: AINAD, her face has filled out and eyes are not so sunken, posture is upright Skin: clear, good turgor Head: NCAT Eyes: non-icteric Lungs: clear CV: RRR, No MCRG Psychiatric: - appearance: well kempt - eye contact: good - attitude: cooperative - speech: clear, coherent, normal pressure - affect: normal - mood: euthymic - memory: intact ? 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 Advanceed AIDS w wasting syndrome which has improved and actually may have gained some muscle. AIDS diarrhea has resolved and she is eating regularly and has gained weight. No change in her medications. Will ask the RD to contact her to concratualte her and reinforce her good choices for food. She is swallowing so much better since her esophageal dilitation by GI at [facility]. 2. Seizure disorder on medication with no further seizures this month. Discuss the switch back to [facility] w her PCP where she says she thinks she will be heard better. 3. - Keep 2nd Maderna vaccine appointment in June. MD visit scheduled: for June clinic Lab work ordered: HIV, RNA, PCR Quantitative and a CD4 immunodeficiency panel Provider of Care: Brittanie Pina, MSN, PRODUCE TEAM LEAD
== END 2020-06-10 12:28 | disposition home or self-care (01) ==
LOC: CCC 12:30
PROVIDERS: PCP Nurse Practitioner; Visit Provider Nurse Practitioner Family
DX: B20 Human immunodeficiency virus [HIV] disease (principal); Z79.899 Other long term (current) drug therapy; R64 Cachexia; R19.7 Diarrhea, unspecified
CPT/HCPCS: 36415; 99214

== ENCOUNTER 2020-06-10 15:24 | Outpatient (REF) | payer MEDICARE, MEDICAID, SELFPAY ==
[2020-06-10 13:46] LABS: Abs Immature Grans 0.01 10^3/uL (0.0-0.06); Absolute Basophil Count 0.04 10^3/uL (0.0-0.2); Absolute Eosinophil Count 0.06 10^3/uL (0.0-0.7); Absolute Lymphocyte Count 2.15 10^3/uL (1.2-3.4); Absolute Monocyte Count 0.47 10^3/uL (0.1-0.8); Absolute Neutrophil Count 2.48 10^3/uL (1.2-6.7); Basophils % 0.8; Eosinophils % 1.2; HCT 40.5 % (36.0-46.0); HGB 13.8 g/dL (11.2-15.7); Immature Grans % 0.2; Lymphocytes % 41.3; MCH 34.3 pg (27.0-33.0); MCHC 34.1 % (32.0-36.0); MCV 100.7 fL (80-95); MPV 9.1 fL (8.0-11.0); Neutrophils % 47.5; Nucleated RBC 0 %; Platelet Count 167 10^3/uL (130-400); RBC 4.02 10^6/uL (3.93-5.22); RDW 11.8 % (11.7-14.6); RDW-SD 43.8 fL; WBC 5.21 10^3/uL (4.4-10.8)
[2020-06-11 14:51] LABS: HIV 1 RNA Qualitative Detected copies/mL (Undetected); HIV 1 RNA Quantitative 1007 copies/mL (Undetected)
[2020-06-11 17:24] LABS: CD3 90 % (62-87); CD4 8 % (35-63); CD8 82 % (10-35)
== END 2020-06-10 15:25 | disposition home or self-care (01) ==
LOC: LBN 15:24
PROVIDERS: PCP Nurse Practitioner; Visit Provider Internal Medicine Infectious Disease
DX: B20 Human immunodeficiency virus [HIV] disease (principal); Z79.899 Other long term (current) drug therapy
CPT/HCPCS: 87536; 85025; 86359; 86360

== ENCOUNTER 2020-08-26 16:06 | Outpatient (CLI) | payer MEDICARE, MEDICAID, SELFPAY ==
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
== END 2020-08-26 16:07 | disposition home or self-care (01) ==
LOC: CCC 16:07
PROVIDERS: PCP Nurse Practitioner; Visit Provider Nurse Practitioner Family
DX: B20 Human immunodeficiency virus [HIV] disease (principal); Z79.899 Other long term (current) drug therapy; F32.9 Major depressive disorder, single episode, unspecified
CPT/HCPCS: 99215

== ENCOUNTER → 2020-09-07 08:12 | Outpatient (BNVA) | payer MEDICARE, MEDICAID, SELFPAY | PROVIDERS: PCP Nurse Practitioner; Referring Provider Nurse Practitioner; Visit Provider Psychiatry & Neurology Neurology | DX: R69 Illness, unspecified (principal) ==

== ENCOUNTER 2020-10-28 09:24 | Outpatient (CLI) | payer MEDICARE, MEDICAID, SELFPAY ==
--- NOTE | 2020-10-28 13:13 | W.CCNOTE ---
Date of service: 10/28/20 Time of Service: 10:00 Comprehensive Care Clinic Note Note: [facility] [address] [place] [address] [facility] of [facility] Visit for Medical Follow Up Name: Josiane Pacheco Medical Record M [id number] Date of : 1955 Primary Care Provider: Elly Alejo NP Date of Service: 10/28/2020 SUBJECTIVE CC: This is a Home Visit medical Follow Up for HIV/Advanced AIDS w recent H/O weight loss and wasting. Josiane is qualified for the Moderna 3rd shot booster based on her immuno-compromised status and her last injection to complete the initial 2 injection series was greater than 28 days ago. Moderna #1 inj ? 06/08/2020, #2 inj ? 07/06/2020 HPI: Josiane has been taking her medications regularly and has had no return of the dysphasia that for so long interfered with her swallowing medications without having them not pass through her esophagus and eventually she would vomit them up. She had the same issue with food and over 2018 and 2019 she had about a 100# weight loss and developed profound AIDS wasting due to extremely low T cell count and chronic diarrhea. Her lowest CD4 was 27 w a WBC% of 6 eight months ago. Since then she had a dilatation of her esophagus which has helped tremendously. She has gained some weight back and feels good at her current weight. She says she is eating well balanced meals. She has not missed any of her HIV medications this past month nor for a few months now. She is due to have blood work this month and she says she will be going to the lab next week after she sees her PCP at [facility] by the hospital. Last month she returned to [facility] for her Seizure disorder care with Dr. Wills. She says she feels more comfortable in his care. She has not missed taking any of her seizure medications as well. She denies any seizure activity since this past winter. She had blood work done at [facility] after her visit with Dr. Wills and we will get those results. ROS Constitutional: ?Pretty good? energy, ?ok? appetite, sleep the same ?as it has been for years?. Weight is stable now. Skin: Denies new rash, Has some fungal spots on her arms without change Head: Denies trauma, head pain Eyes: Denies visual disturbance, has reading glasses Ear/Nose/Throat: Negative Mouth/Teeth: Behind on dental care since Covid Neck: No pain or stiffness CV: Denies chest pain, pressure, palpitations Respiratory: Some smokers cough in the morning, denies dyspnea, hemoptysis GI: No N/V/D/C or rectal bleeding : Negative Musculoskeletal: Some achy joint & back pain ? nothing new Endocrine: No polyuria, polydipsia; heat or cold intolerance Lymphatic: Has not noted any enlarged nodes Hematologic: No unusual bleeding, bruising Immunologic: Severely compromised, due for CD4 and Viral Load labs Psychiatric: Some worsening Anxiety/ Depression due to her displeasure with her apartment in a building that has poor maintenance, denies SI/HI Allergies/Sensitivities: NKDA Current Medications: Vimpat, hydroxyzine, clonazepam, dolutegravir, lamuvidine, tenoforvir alafenamide, sulfamethoxzole-trimethaprim Medical / Surgical History Update: Neurology care now at [facility] ? no change in medications. Had both of the initial Moderna Covid vaccine and today due for the 3rd one for a booster. Psychiatric History Update: Has had worsening concerns about her living situation now not only because the apartment building is in disrepair but she has learned that no one in the other 9 apartments in the building are vaccinated. Social History Update: Would like to move but the housing situation now is tight. Employment: Disabled Health Insurance: Medicare/Medicaid ? both active Substance Use: Tobacco: 4-5 cigarettes/day ETOH: Denies any Drug Use: Some pot Family History Update: Nothing new Immunization Needed? Covid booster Health Maintenance: Seeing her PCP next week. She has been UTD w screenings OBJECTIVE Weight: 160# Temp: 97.8 Pulse: 78 Respirations: 16 Blood Pressure: 110/80 General: AINAD, Gait strong and steady Skin: She has a scatter of pin head size white crusty cutaneous lesions on her arms, no erythema Eyes: non icteric, pupils 5mm round w symmetry Gait strong and steady going up and down stairs and on the flat No edema No tremor Psychiatric: - appearance: well groomed - eye contact: good - attitude: cooperative - speech: normal with less hesitations than usual - affect: appropriate - mood: euthymic, mildly anxious - memory: short term intact, extermination supervisor intact - motor activity: normal - orientation: intact - attention: intact ASSESSMENT/PLAN HIV/AIDS - AIDS Wasting resolving, a encouraging sign that her immune status is improving - weight stabilizing as well - Josiane is to continue the HIV medications as she has been taking them on a daily basis and will get follow up lab work done next week after her PCP visit. Continue her well balanced diet and daily exercise is encouraged. I think she would get out more and be more active in another living setting such as the [facility] and we discussed this today. She will contemplate all this. MD visit scheduled: November 20, 2020 Lab work ordered: today to have done within the next couple weeks for - CD4 and HIV PCR Viral Load HM - She needs the Moderna Covid booster as she fits the profile of an immuno-compromised patient. Today we drove to the [facility] in [place] where she had it administered. She will let her PCP know this was done. Provider of Care: Brittanie Pina, MSN, BILLET HEATER OPERATOR
== END 2020-10-28 09:25 | disposition home or self-care (01) ==
LOC: CCC 09:27
PROVIDERS: PCP Nurse Practitioner; Visit Provider Nurse Practitioner Family
DX: B20 Human immunodeficiency virus [HIV] disease (principal); Z79.899 Other long term (current) drug therapy; R64 Cachexia
CPT/HCPCS: 99215

== ENCOUNTER 2020-12-28 14:01 | Outpatient (CLI) | payer MEDICARE, MEDICAID, SELFPAY ==
--- NOTE | 2020-12-29 14:46 | W.CCNOTE ---
Date of service: 12/28/20 Time of Service: 14:00 Comprehensive Care Clinic Note Note: [facility] [address] [place] [address] [facility] of [facility] Visit for Medical Follow Up Name: Josiane Pacheco Medical Record# [id number] Date of : 1955 Primary Care Provider: Elly Alejo NP Date of Service: 12/28/2020 SUBJECTIVE CC: Home Visit for F/U, Risk Reduction, Immunization administration and blood draw. HPI: Josiane has advanced AIDS and earlier this year had 4 months of pronounced daily diarrhea, wasting and a CD4 count of 24 with a high detectable viral load because she had not been able to consistently swallow the HIV medications due to esophageal dysfunction. She was hospitalized for this as she had a 70# weight loss and was failing to thrive. She was rehydrated and had electrolyte replacement as well as an appointment with GI at [facility] where she had an esophageal dilatation. Since that time she has been able to consistently swallow all of her medications. She had lapse in the availability of the HIV meds due to an error at the pharmacy as Dr. Myers had electronically sent over refills for her HIV medications at the end of September but the pharmacy did not find these when she was due in October and she went without medication for about 10 days. She restarted them about 5-6 weeks ago and has not missed any since. She is also taking her anti-seizure medication as ordered and saw Dr. Wills last week at [facility]. After that appointment she had lab work drawn, the results of which are not available to this provider. She states that all last week she had some watery diarrhea but it resolved and she had no other symptoms with it including not feeling like she had fever. She had the third in the Moderna SARS CoV2 vaccine series for those who are severely immunocompromised and that was back in August. She would be due to get a booster soon. ROS Constitutional: Fair energy, appetite is back to being good after last week not wanting to eat much due to stimulating diarrhea every time she would eat, sleep is unchanged. Weight is stable as she does not think she has lost any weight. Skin: Denies rash Head: Denies trauma, head pain Eyes: Denies visual disturbance, has reading glasses Ear/Nose/Throat: Negative Mouth/Teeth: UTD w dental Neck: No pain or stiffness CV: Denies chest pain, pressure, palpitations Respiratory: Some smokers cough in the morning, denies dyspnea, hemoptysis GI: No N/V/D/C or rectal bleeding now that last week?s diarrhea has resolved. : Negative Musculoskeletal: Denies joint or back pain Endocrine: No polyuria, polydipsia; heat or cold intolerance Lymphatic: Has not noted any enlarged nodes Hematologic: No unusual bleeding, bruising Immunologic: CD4 count has been below 200 for a long time and she is at risk for OI Psychiatric: Suffers some Anxiety & Depression but it is better this week Allergies/Sensitivities: NKDA Current Medications: clonazepam 1mg po bid ? Neuro dolutegravir (Tivacay) 50 mg po daily hydroxyzine 25 mg po bid ? Neuro lamivudine (Epivir) 10mg/ml take 15 cc po bid meloxicam 7.5 mg po daily prn pain - PCP sulfamethoxazole-trimethoprim (Bactrim) 200mg-40mg/5ml take 10 cc po daily tenofovir alafenomide (Vemlidy) 25 mg po daily lacosamide (Vimpat) 200 mg po q 12 hours - Neuro Medical / Surgical History Update: Rare breakthrough seizure lately. She is happy to be getting her neurology care at [facility] with Dr. Wills, who she says knows her well. Psychiatric History Update: Feeling less Depressed this week since the diarrhea has resolved. Social History Update: Still in the third floor apartment and says she will still move if an apartment comes available for her to move. It is difficult due to Covid. Employment: Disabled Health Insurance: Medicare and Medicaid Substance Use: Tobacco: smoking a few cigarettes a day she says ETOH: None Drug Use: rare pot Family History Update: Nothing new Immunization Needed? Flu vaccine and sign up for the Covid Booster Health Maintenance: UTD w PCP OBJECTIVE Weight: 160# Temp: 97.5 Pulse: 78 Respirations: 16 Blood Pressure: 124/70 General: WDWNL, AINAD, answered the door with no delay of difficulty Skin: W/D, no rash or lesions noted Head: NCAT Eyes: non icteric Ears, Nose, Mouth: NE due to masking Teeth: NE Neck: Supple, Thyroid non palp, no swelling Chest: Full, equal expansion, Lungs clear on all lobes CV: RRR, No MCRG, extremity pulses 2/4 w symmetry Abdomen: NABS, ND, NT, No OGM or masses felt, No Bruits : NE Neuro: Gait strong and steady, No tics or tremor, Strength 5/5 all extremities, DTRs 2/4 Lymphatic: No palpable enlarged nodes Ortho: FROM all joints w/o swelling or erythema Psychiatric: - appearance: well groomed - eye contact: good - attitude: cooperative - speech: normal - affect: appropriate - mood: euthymic - memory: short term intact, buttermaker continuous churn intact - self-perception: WNL - motor activity: normal - orientation: intact - attention: intact - thought process: logical - thought content: normal - perceptions: WNL - judgement: intact - insight: good ASSESSMENT/PLAN 1. HIV/AIDS ? has been back to taking the medications consistently for over a month and so the blood work drawn today should reflect the current status of her viral load and CD4 count. No change in medications to this date. She is not eligible for the new injectable HIV medication due to such buttermaker continuous churn detectible viral load. At some point if her viral load remained undetectable for the needed amount of time, perhaps she could be a candidate although she would need some oral medications as well. She is encouraged to ask Dr. Myers about this next visit with him. 2. Wasting Syndrome ? She has gained weight and maintained it even with last week?s recurrent bout of diarrhea. She is encouraged to continue the regular diet and stay hydrated. 3. Health maintenance ? Flu vaccine administered today IM in her left arm w/o adverse reaction of observation for 20 minutes due the visit. She is encouraged to call her pharmacy and schedule a Covid booster shot which she says she will do. MD visit scheduled: January Lab work ordered: CBCD, CMP, CD4, PCR Provider of Care: Brittanie Pina, MSN, VIRTUALIZATION ARCHITECT
== END 2020-12-28 14:02 | disposition home or self-care (01) ==
LOC: CCC 12-29 14:03
PROVIDERS: PCP Nurse Practitioner; Visit Provider Nurse Practitioner Family
DX: B20 Human immunodeficiency virus [HIV] disease (principal); R64 Cachexia; Z79.899 Other long term (current) drug therapy
CPT/HCPCS: 99203

== ENCOUNTER 2020-12-28 15:57 | Outpatient (REF) | payer MEDICARE, MEDICAID, SELFPAY ==
[2020-12-28 20:01] LABS: Abs Immature Grans 0.01 10^3/uL (0.0-0.06); Absolute Basophil Count 0.03 10^3/uL (0.0-0.2); Absolute Eosinophil Count 0.14 10^3/uL (0.0-0.7); Absolute Lymphocyte Count 1.17 10^3/uL (1.2-3.4); Absolute Monocyte Count 0.37 10^3/uL (0.1-0.8); Absolute Neutrophil Count 2.54 10^3/uL (1.2-6.7); Basophils % 0.7; Eosinophils % 3.3; HCT 39.4 % (36.0-46.0); HGB 13.1 g/dL (11.2-15.7); Immature Grans % 0.2; Lymphocytes % 27.5; MCH 34.3 pg (27.0-33.0); MCHC 33.2 % (32.0-36.0); MCV 103.1 fL (80-95); MPV 8.9 fL (8.0-11.0); Monocytes % 8.7; Neutrophils % 59.6; Nucleated RBC 0 %; Platelet Count 207 10^3/uL (130-400); RBC 3.82 10^6/uL (3.93-5.22); RDW 13.1 % (11.7-14.6); RDW-SD 49.7 fL; WBC 4.26 10^3/uL (4.4-10.8)
[2020-12-28 20:15] LABS: ALT 35 U/L (14-59); AST 30 U/L (15-37); Albumin 3.5 g/dL (3.4-5.0); Alkaline Phosphatase 75 U/L (46-116); Anion Gap 8.5 mmol/L (3-11); BUN 12 mg/dL (7-18); Bilirubin, Total 0.2 mg/dL (0.2-1.0); CO2 27.5 mmol/L (21.0-32.0); CREATININE 1.1 mg/dL (0.55-1.02); Calcium 8.7 mg/dL (8.5-10.1); Chloride 107 mmol/L (98-107); Estimated GFR 50.17 (mL/min/1.73m2); Glucose 71 mg/dL (74-106); Potassium 4.6 mmol/L (3.5-5.1); Sodium 143 mmol/L (136-145); Total Protein 6.9 g/dL (6.4-8.2)
[2020-12-30 15:42] LABS: 4/8 Ratio 0.07 (>=0.90); Absolute CD3 1133 Cells/uL (840-2,669); Absolute CD8 1052 Cells/uL (154-1,097); CD3 90 % (56-84); CD4 6 % (31-64); CD8 83 % (9-39)
[2020-12-31 14:50] LABS: HIV 1 RNA Qualitative Detected copies/mL (Undetected); HIV 1 RNA Quantitative 56400 copies/mL (Undetected)
== END 2020-12-28 15:58 | disposition home or self-care (01) ==
LOC: LBN 15:57
PROVIDERS: PCP Nurse Practitioner; Visit Provider Nurse Practitioner Family
DX: B20 Human immunodeficiency virus [HIV] disease (principal); Z79.899 Other long term (current) drug therapy
CPT/HCPCS: 80053; 87536; 85025; 86359; 86360

== ENCOUNTER 2021-02-16 17:19 | Outpatient (REF) | payer MEDICARE, MEDICAID, SELFPAY ==
[2021-02-18 14:21] LABS: HIV 1 RNA Qualitative Detected copies/mL (Undetected); HIV 1 RNA Quantitative 25 copies/mL (Undetected)
== END 2021-02-16 17:20 | disposition home or self-care (01) ==
LOC: LBN 17:19
PROVIDERS: PCP Nurse Practitioner; Visit Provider Nurse Practitioner Family
DX: B20 Human immunodeficiency virus [HIV] disease (principal); Z79.899 Other long term (current) drug therapy
CPT/HCPCS: 87536

== ENCOUNTER 2021-03-31 15:13 | Outpatient (REF) | payer MEDICARE, MEDICAID, SELFPAY ==
[2021-03-31 16:02] LABS: ALT 28 U/L (14-59); AST 21 U/L (15-37); Albumin 3.7 g/dL (3.4-5.0); Alkaline Phosphatase 75 U/L (46-116); Anion Gap 12.4 mmol/L (3-11); BUN 11 mg/dL (7-18); Bilirubin, Total 0.3 mg/dL (0.2-1.0); CO2 24.6 mmol/L (21.0-32.0); Chloride 103 mmol/L (98-107); Glucose 75 mg/dL (74-106); Potassium 4.4 mmol/L (3.5-5.1); Sodium 140 mmol/L (136-145); Total Protein 7.5 g/dL (6.4-8.2)
[2021-03-31 16:05] LABS: Abs Immature Grans 0.01 10^3/uL (0.0-0.06); Absolute Basophil Count 0.05 10^3/uL (0.0-0.2); Absolute Eosinophil Count 0.07 10^3/uL (0.0-0.7); Absolute Monocyte Count 0.36 10^3/uL (0.1-0.8); Absolute Neutrophil Count 2.43 10^3/uL (1.2-6.7); Eosinophils % 1.4; HCT 40.6 % (36.0-46.0); HGB 13.7 g/dL (11.2-15.7); Immature Grans % 0.2; Lymphocytes % 41.8; MCH 34.9 pg (27.0-33.0); MCHC 33.7 % (32.0-36.0); MCV 103.6 fL (80-95); MPV 8.4 fL (8.0-11.0); Monocytes % 7.2; Neutrophils % 48.4; Nucleated RBC 0 %; Platelet Count 222 10^3/uL (130-400); RBC 3.92 10^6/uL (3.93-5.22); RDW 13.2 % (11.7-14.6); RDW-SD 50.7 fL; WBC 5.02 10^3/uL (4.4-10.8)
[2021-04-02 14:24] LABS: 4/8 Ratio 0.07 (>=0.90); Absolute CD3 2165 Cells/uL (840-2,669); Absolute CD8 2015 Cells/uL (154-1,097); CD3 90 % (56-84); CD4 6 % (31-64); CD8 84 % (9-39)
[2021-04-05 15:01] LABS: HIV 1 RNA Qualitative Detected copies/mL (Undetected); HIV 1 RNA Quantitative <20 copies/mL (Undetected)
== END 2021-03-31 15:14 | disposition home or self-care (01) ==
LOC: LBN 15:13
PROVIDERS: PCP Nurse Practitioner; Visit Provider Nurse Practitioner Family
DX: B20 Human immunodeficiency virus [HIV] disease (principal); Z79.899 Other long term (current) drug therapy
CPT/HCPCS: 80053; 87536; 85025; 86359; 86360

== ENCOUNTER 2021-07-12 13:53 | Outpatient (REF) | payer OTHER, MEDICAID, SELFPAY ==
[2021-07-12 15:43] LABS: Abs Immature Grans 0.02 10^3/uL (0.0-0.06); Absolute Basophil Count 0.04 10^3/uL (0.0-0.2); Absolute Lymphocyte Count 1.75 10^3/uL (1.2-3.4); Absolute Monocyte Count 0.36 10^3/uL (0.1-0.8); Absolute Neutrophil Count 2.98 10^3/uL (1.2-6.7); Basophils % 0.8; Eosinophils % 1.9; HCT 38.6 % (36.0-46.0); HGB 13.3 g/dL (11.2-15.7); Immature Grans % 0.4; Lymphocytes % 33.3; MCH 34.1 pg (27.0-33.0); MCHC 34.5 % (32.0-36.0); MCV 99 fL (80-95); Monocytes % 6.9; Neutrophils % 56.7; Platelet Count 176 10^3/uL (130-400); RDW 11.8 % (11.7-14.6); RDW-SD 42.4 fL; WBC 5.25 10^3/uL (4.4-10.8)
[2021-07-12 16:06] LABS: ALT 38 U/L (14-59); AST 38 U/L (15-37); Albumin 4.1 g/dL (3.4-5.0); Alkaline Phosphatase 66 U/L (46-116); Anion Gap 10.9 mmol/L (3-11); BUN 9 mg/dL (7-18); Bilirubin, Total 0.4 mg/dL (0.2-1.0); CO2 24.1 mmol/L (21.0-32.0); CREATININE 1.1 mg/dL (0.55-1.02); Calcium 8.7 mg/dL (8.5-10.1); Chloride 103 mmol/L (98-107); Estimated GFR 50.17 (mL/min/1.73m2); Glucose 83 mg/dL (74-106); Potassium 4.7 mmol/L (3.5-5.1); Sodium 138 mmol/L (136-145); Total Protein 7.8 g/dL (6.4-8.2)
[2021-07-13 15:13] LABS: 4/8 Ratio 0.08 (>=0.90); Absolute CD3 1802 Cells/uL (840-2,669); Absolute CD8 1664 Cells/uL (154-1,097); CD3 90 % (56-84); CD4 7 % (31-64); CD8 83 % (9-39)
[2021-07-15 15:14] LABS: HIV 1 RNA Qualitative Undetected copies/mL (Undetected)
== END 2021-07-12 13:54 | disposition home or self-care (01) ==
LOC: LBN 13:53
PROVIDERS: PCP Nurse Practitioner; Visit Provider Nurse Practitioner Family
DX: B20 Human immunodeficiency virus [HIV] disease (principal); Z79.899 Other long term (current) drug therapy
CPT/HCPCS: 80053; 87536; 85025; 86359; 86360

== ENCOUNTER 2022-01-12 14:50 | Outpatient (CLI) | payer OTHER, MEDICAID, SELFPAY | END 2022-01-12 14:51 | disposition home or self-care (01) | LOC: CCC 01-13 14:53 | PROVIDERS: PCP Nurse Practitioner; Visit Provider Nurse Practitioner Family ==

== ENCOUNTER 2022-01-12 17:29 | Outpatient (REF) | payer OTHER, MEDICAID, SELFPAY ==
[2022-01-12 17:15] LABS: Absolute Basophil Count 0.06 10^3/uL (0.0-0.2); Absolute Eosinophil Count 0.13 10^3/uL (0.0-0.7); Absolute Monocyte Count 0.27 10^3/uL (0.1-0.8); Absolute Neutrophil Count 1.94 10^3/uL (1.2-6.7); Basophils % 1.6; Eosinophils % 3.5; HCT 40.6 % (36.0-46.0); HGB 14.1 g/dL (11.2-15.7); Lymphocytes % 35.1; MCH 36.4 pg (27.0-33.0); MCHC 34.7 % (32.0-36.0); MCV 105 fL (80-95); MPV 8.7 fL (8.0-11.0); Monocytes % 7.3; Neutrophils % 52.5; Platelet Count 169 10^3/uL (130-400); RBC 3.87 10^6/uL (3.93-5.22); RDW 13.7 % (11.7-14.6); RDW-SD 52.7 fL
[2022-01-12 17:26] LABS: ALT 37 U/L (14-59); AST 30 U/L (15-37); Albumin 3.7 g/dL (3.4-5.0); Alkaline Phosphatase 56 U/L (46-116); Anion Gap 7.6 mmol/L (3-11); BUN 11 mg/dL (7-18); Bilirubin, Total 0.4 mg/dL (0.2-1.0); CO2 27.4 mmol/L (21.0-32.0); CREATININE 1.2 mg/dL (0.55-1.02); Chloride 103 mmol/L (98-107); Estimated GFR 50.55 (mL/min/1.73m2); Glucose 88 mg/dL (74-106); Potassium 4.3 mmol/L (3.5-5.1); Sodium 138 mmol/L (136-145); Total Protein 7.3 g/dL (6.4-8.2)
[2022-01-14 13:46] LABS: Absolute CD3 1289 Cells/uL (840-2669); Absolute CD8 1155 Cells/uL (154-1097); CD3 87 % (56-84); CD4 8 % (31-64); CD8 78 % (9-39)
[2022-01-17 12:33] LABS: HIV 1 RNA Qualitative Undetected copies/mL (Undetected)
--- NOTE | 2022-01-19 13:28 | CCCE_ITS ---
Date of service: 01/12/22 Time of Service: 14:00 Comprehensive Care Clinic Note Note: [facility] [address] [place], [place]? [address] [facility] of [facility] Visit for Medical Follow Up Name: Josiane Pacheco ? Medical Record [id number] Date of :? 1955? Primary Care Provider:Jayda Alejo Date of Service: 01/12/2022 SUBJECTIVE CC: HOME VISIT ? F/U for HIV/AIDS w H/O wasting unable to swallow pills. After a series of esophageal dilatations she has been able to take the antiretroviral meds regularly and states she has not missed any medication doses. She is overdue for blood work as she was unsuccessful in getting to the hospital lab for blood draw. She has not had a flu shot yet not the next Covid Booster and we will discuss this today. HPI: Josiane has been feeling physically well and is taking her medications regularly. She has not missed any doses. She has mail order pharmacy services through [facility] specialty pharmacy. She has a 4 dose a day weekly pill box and uses it to fill up 2 weeks? worth of medications. She is glad for it because it keeps her on track. She has all her other medications and has not missed any of those either. She has not had any seizure activity. She will be seeing Dr. Wills, her neurologist, early next month. She has not seen her PCP as of late. Josiane is more depressed again due to isolation, feeling persecuted and ripped off by her neighbors and feeling like she can?t move because there is such a shortage of housing and she says ?I have a place?. She admits she is surrounded by ?drug dealers and thieves? who steal her packages when she orders anything. The post man will not come up the steps because of the neighbor?s drug activity. She does have her meds delivered to her door on the third floor. Her nurse case manager from [facility] has been out sick for 2 months and recently contacted her stating she was going to get her a [place] from [employer] for her Thanksgiving. Josiane says she has no one to have Thanksgiving with and remembers when long ago [place] [employer] would have Thanksgiving dinner for the people they served and also other social activities. Since the pandemic a lot of in person social activities have still not resumed. ROS Constitutional: denies fever, chills, night sweats, states she is frequently lethargic from inactivity ? she sits and watches TV a lot, appetite is good and she has gained a lot of weight, sleep is disturbed for a number of reasons ? mostly her noisy down stairs neighbor. Weight is up above 200# - back to what it was before she had acute weight loos 2 years ago due to AIDS wasting w diarrhea for which she was admitted. Skin: Denies rash Head: Denies trauma, head pain ? last head trauma was with seizure over 4 months ago Eyes: Denies visual disturbance, has reading glasses Ear/Nose/Throat: Negative Mouth/Teeth: Needs dental work as she has some fractured teeth from seizures in the past. States she has no cavities. Has DCAP but no appointments w dental. Neck: No pain or stiffness CV: Denies chest pain, pressure, palpitations Respiratory: Some smokers cough in the morning, denies dyspnea, hemoptysis GI: No N/V/D/C or rectal bleeding : Negative Musculoskeletal: Some joint and back pain without swelling Endocrine: No polyuria, polydipsia; heat or cold intolerance Lymphatic: Has not noted any enlarged nodes Hematologic: No unusual bleeding, bruising Immunologic: CD4 count has been in the single digits in the past and last was in the 130s w a undetectable VL, + risk of OI and takes the liquid Bactrim Neurological: No seizures for over 4 months, Denies tics or tremor Psychiatric: Has some Anxiety, + Depression, some SI stating she wishes ?it was over? but has not plan nor any weapons, denies HI. Allergies/Sensitivities: NKDA Current Medications: dolutegravir 50 mg bid (bid due to anti-seizure meds may lower levels) 3TC 150 mg bid TAF 25 mg daily Bactrim Suspension 10cc daily for PJP prophylaxis Other meds: Neuro- Clonazepam 1 mg bid ? seizure prevention hydroxyzine 25 mg bid Vimpat 200mg q 12 hours PCP- Meloxicam 7.5 mg / day prn Medical / Surgical History Update: Nothing new ? She thinks she had Covid when the pandemic first started as the cause of her weight loss and diarrhea but she was very immunocompromised at the time consistent with AIDS wasting and an 80# weight loss which she has gained back no that she is back on antiretroviral meds and last blood draw her viral load was undetectable with an increase in her CD4 T cells to 137 from a low of 27 Psychiatric History Update: States she is feel like she wants to give up but commits to continuing to take her medications. Does not have counseling or psych care and does not feel her PCPs office helps her. They do have behavioral health through the PCP but the question is would Josiane accept this. It may be worth the PCP asking if she would with an offer to connect her. Social History Update: Isolated. She would do better if she could move to a [facility] living situation like [facility]. Employment:? No Health Insurance: Medicare, Medicaid, [employer] Substance Use: ? Tobacco: smoke some each day - <1/2 ppd ? ETOH: Denies ? Drug Use: Denies Family History Update: ?Nothing new Immunization Needed? Yes influenza vaccine and the newest Covid Booster Health Maintenance: UTD OBJECTIVE Temp: 97.6, Pulse: 100, Respirations: 14, Blood Pressure: 124/74 General: ?WDWNL ? Obese at this point and says she is over 200#, AINAD Skin: ?W/D, no rash or lesions noted Head: ?NCAT Eyes: non icteric Ears, Nose, Mouth: NE due to masking Teeth: Good repair, no erythema or gingival swelling or tenderness noted Neck: Supple, Thyroid non palp, no swelling/crepitus Chest: Full, equal expansion, Lungs clear on all lobes CV: RRR, No MCRG, extremity pulses 2/4 w symmetry Abdomen: NABS, ND, NT, No OGM or masses felt, No Bruits : NE Neuro: Gait strong and steady, No tics or tremor, Strength 5/5 all extremities, DTRs 2/4 Lymphatic: No palpable enlarged nodes Ortho: FROM all joints w/o swelling or erythema Psychiatric: - appearance: well groomed, - eye contact: ?fair - attitude: cooperative - speech: normal for her with a slight halting at times (since S/P craniotomy) - affect: ?flat - mood: depressed - memory: short term intact, extermination supervisor intact - self-perception: WNL - motor activity: normal - orientation: intact - attention: intact - thought process: logical - thought content: normal - perceptions: WNL, no evidence of hallucinations - judgement: intact - insight: ?good ASSESSMENT/PLAN MD visit scheduled: February 07, 2022 Lab work ordered: ?Drawn today for CBCD, CMP, Lipids, HIV PCR quantitative CD4 count absolute and percent Home visit in 1-2 weeks to administer Flu vaccine and take Josiane for a Covid Booster at [facility]. Provider of Care:? Brittanie Pina, MSN, HAIR DESIGNER
== END 2022-01-12 17:30 | disposition home or self-care (01) ==
LOC: LBN 17:29
PROVIDERS: PCP Nurse Practitioner; Visit Provider Nurse Practitioner Family
DX: B20 Human immunodeficiency virus [HIV] disease (principal); Z79.899 Other long term (current) drug therapy
CPT/HCPCS: 80053; 87536; 85025; 86359; 86360

== ENCOUNTER 2022-04-06 10:24 | Outpatient (CLI) | payer OTHER, MEDICAID, SELFPAY | END 2022-04-06 10:25 | disposition home or self-care (01) | LOC: CCC 10:27 | PROVIDERS: PCP Nurse Practitioner; Visit Provider Nurse Practitioner Family | DX: B20 Human immunodeficiency virus [HIV] disease (principal); Z79.899 Other long term (current) drug therapy; F32.A Depression, unspecified | CPT/HCPCS: 99214 ==

== ENCOUNTER 2022-04-06 12:58 | Outpatient (REF) | payer OTHER, MEDICAID, SELFPAY ==
[2022-04-06 13:21] LABS: Abs Immature Grans 0.02 10^3/uL (0.0-0.06); Absolute Basophil Count 0.08 10^3/uL (0.0-0.2); Absolute Eosinophil Count 0.15 10^3/uL (0.0-0.7); Absolute Lymphocyte Count 3.28 10^3/uL (1.2-3.4); Absolute Monocyte Count 0.47 10^3/uL (0.1-0.8); Absolute Neutrophil Count 3.47 10^3/uL (1.2-6.7); Basophils % 1.1; HCT 47.8 % (36.0-46.0); HGB 16.4 g/dL (11.2-15.7); Immature Grans % 0.3; Lymphocytes % 43.9; MCH 36.1 pg (27.0-33.0); MCHC 34.3 % (32.0-36.0); MCV 105 fL (80-95); MPV 8.8 fL (8.0-11.0); Monocytes % 6.3; Neutrophils % 46.4; Platelet Count 220 10^3/uL (130-400); RBC 4.54 10^6/uL (3.93-5.22); RDW 12.6 % (11.7-14.6); RDW-SD 48.8 fL; WBC 7.47 10^3/uL (4.4-10.8)
[2022-04-06 13:45] LABS: ALT 27 U/L (14-59); AST 23 U/L (15-37); Albumin 3.8 g/dL (3.4-5.0); Alkaline Phosphatase 67 U/L (46-116); Anion Gap 11.1 mmol/L (3-11); BUN 7 mg/dL (7-18); Bilirubin, Total 0.4 mg/dL (0.2-1.0); CO2 27.9 mmol/L (21.0-32.0); CREATININE 1.3 mg/dL (0.55-1.02); Calcium 9.3 mg/dL (8.5-10.1); Chloride 103 mmol/L (98-107); Estimated GFR 45.92 (mL/min/1.73m2); Glucose 95 mg/dL (74-106); Potassium 3.8 mmol/L (3.5-5.1); Sodium 142 mmol/L (136-145); Total Protein 7.6 g/dL (6.4-8.2)
[2022-04-07 13:06] LABS: 4/8 Ratio 0.07 (>=0.90); Absolute CD3 3319 Cells/uL (840-2669); CD3 90 % (56-84); CD4 6 % (31-64); CD8 83 % (9-39)
[2022-04-07 14:42] LABS: HIV 1 RNA Qualitative Detected copies/mL (Undetected); HIV 1 RNA Quantitative 88 copies/mL (Undetected)
== END 2022-04-06 12:59 | disposition home or self-care (01) ==
LOC: LBN 12:58
PROVIDERS: PCP Nurse Practitioner; Visit Provider Nurse Practitioner Family
DX: B20 Human immunodeficiency virus [HIV] disease (principal); Z79.899 Other long term (current) drug therapy
CPT/HCPCS: 80053; 87536; 85025; 86359; 86360

== ENCOUNTER 2022-07-27 10:59 | Outpatient (REF) | payer OTHER, MEDICAID, SELFPAY ==
[2022-07-28 11:44] LABS: HIV 1 RNA Qualitative Detected copies/mL (Undetected); HIV 1 RNA Quantitative 1280 copies/mL (Undetected)
== END 2022-07-27 11:00 | disposition home or self-care (01) ==
LOC: LBN 10:59
PROVIDERS: PCP Nurse Practitioner; Visit Provider Nurse Practitioner Family
DX: B20 Human immunodeficiency virus [HIV] disease (principal); Z79.899 Other long term (current) drug therapy
CPT/HCPCS: 87536

== ENCOUNTER 2022-07-27 11:32 | Outpatient (CLI) | payer OTHER, MEDICAID, SELFPAY ==
--- NOTE | 2022-07-27 11:38 | CCCE_ITS ---
Comprehensive Care Clinic Note Note: [facility] [address] [place]? [address] [facility]] of [facility] Visit for Medical Follow Up Name: Josiane Pacheco ? Date of :? 1955? Primary Care Provider: [facility] Hernandez Date of Service: - HOME VISIT SUBJECTIVE CC: Home Visit ? status check for 2 consecutive cancelled in person visits and blood draw for HIV pcr Viral Load HPI: Josiane is seen today for a status check as she has cancelled 2 visits in a row, although las one on July 21, she did not recall cancelling and was waiting for a phone call. This was an appointment that was scheduled to be in the office for a weight check, vital signs and a brief physical along with a Zoom telehealth visit with Dr. Myers. She called and told me she did not think she needed to come in, that she had appointments at [facility] and would be available for an appointment with [facility]] in the summer. She apparently did not recall this. It had been reported to this office that she did purchase ETOH at least on occasion and she does have a H/O ETOH heavy consumption in the past denying it is a problem now. She has mentioned that her finances are tight now that some of the extra Covid money has been reduced. She states that she has been taking her medications as RX?d and has not missed any. She has not had seizure activity recently ? ?Not like the past?. She is seeing Dr. Wills at [facility] neurology. There have been no changes in her medications. She is using the pills box to keep track. ROS Constitutional: denies fever, chills, night sweats. She thinks she has gained some more weight. Skin: Denies rash Head: Denies trauma, head pain Eyes: Denies visual disturbance, has reading glasses Ear/Nose/Throat: Negative Mouth/Teeth: Complains bitterly about the state of her teeth and she cannot get any ting done with them. She was advised to have them removed and has been resistant to that. Neck: No pain or stiffness CV: Denies chest pain, pressure, palpitations Respiratory: denies dyspnea, hemoptysis GI: She is having some increasing S&S of reoccurring esophageal stricture. No N/V/D/C or rectal bleeding : Negative Musculoskeletal: Denies joint and back pain Endocrine: No polyuria, polydipsia; heat or cold intolerance Lymphatic: Has not noted any enlarged nodes Hematologic: No unusual bleeding, bruising Immunologic: Her last HIV RNA PCR QUANT was 88. The CD4 was 228 with a % of 6. Neurological: No seizures. Denies tics or tremor Psychiatric: She admit to being depressed and isolating not trusting others. She has had numerous opportunities to move from the 3rd floor apartment in a building with drug activity and stealing of mail, packages and other items. She denies HI/SI but does state if she became homeless she would ?find a gun? but no plans of such things now. She is making friends on line in a music group but does not give out personal information. Allergies/Sensitivities: NKDA Current Medications: lamuvadine solution 10mg/1ml ? 150mg (15 ml) bid Tivicay 50 mg tab ? 1 tab bid Vemlidy 25 mg tab ? 1 tab daily sulfamethoxazole/trimethoprim 200mg/40mg/5ml ? 400/80mg (10 ml) daily Neuro meds: Vimpat 10mg/1ml ? 150mg (15 ml) bid clonazepam 1 mg tab ? 1 tab bid hydroxyzine 10mg/5ml ? 12.5 ml (125 mg) tid prn anxiety Medical / Surgical History Update: Nothing new Psychiatric History Update: Does not see a counselor or psychiatric provider. Social History Update: Lives in a 3rd floor apartment that makes it difficult for her to get groceries up the steps, etc. The building has issues but she says the roof does not leak anymore. She does not want to move although she has had numerous offers to help her get better housing. She gets meals on wheels. She could call [facility] to transport her not only to medical appointments but also for grocery and pharmacy shopping. Employment: Disabled Health Insurance: Medicare and Medicaid, [place] Substance Use: ? Tobacco: smokes about ? ppd ? ETOH: Denies but there are reports of purchases of ETOH ? Drug Use: Denies, says rare some pot Family History Update: ?Nothing new. No contact with her son. Immunization Needed? In the fall Health Maintenance: Has an appt with her PCP OBJECTIVE Weight: 214# Height: 5?6? Temp: 97.8, Pulse: 80, Respirations: 14, Blood Pressure: 118/70 General: ?WDWNL Skin: ?W/D, no rash or lesions noted Head: ?NCAT Eyes: non icteric Ears, Nose, Mouth: clear Teeth: Good repair, no erythema or gingival swelling or tenderness noted Neck: Supple, Thyroid non palp, no swelling/crepitus Chest: Full, equal expansion, Lungs clear on all lobes CV: RRR, No MCRG, extremity pulses 2/4 w symmetry Abdomen: NABS, ND, NT, No OGM or masses felt, No Bruits : NE Neuro: Gait strong and steady, No tics or tremor, Strength 5/5 all extremities, DTRs 2/4 Lymphatic: No palpable enlarged nodes Ortho: FROM all joints w/o swelling or erythema Psychiatric: Mood depressed, affect at time buoyant when talking of some health maintenance visits coming up that she is planning to keep ? mammograms, etc. ASSESSMENT/PLAN MD visit scheduled: 08/08/22 @ 1:30 pm at clinic in person Lab work ordered: Drawn today is a HIV RNA PCR Quantitative and if over 1000 copies, reflex to genotypic testing She has an appointment with her PCP soon and will discuss her depression and isolation. I will also mention this to her test case developer who states she has tried to contact Josiane but never gets a return call. Provider of Care:? Brittanie Pina, MSN, SAND CLEANING MACHINE OPERATOR
== END 2022-07-27 11:33 | disposition home or self-care (01) ==
LOC: CCC 11:36
PROVIDERS: PCP Nurse Practitioner; Visit Provider Nurse Practitioner Family
DX: B20 Human immunodeficiency virus [HIV] disease (principal); Z79.899 Other long term (current) drug therapy; F32.A Depression, unspecified
CPT/HCPCS: 99213

== ENCOUNTER 2022-10-25 18:35 | Outpatient (REF) | payer OTHER, MEDICAID, SELFPAY ==
[2022-10-25 16:34] LABS: Abs Immature Grans 0.01 10^3/uL (0.0-0.06); Absolute Basophil Count 0.02 10^3/uL (0.0-0.2); Absolute Eosinophil Count 0.01 10^3/uL (0.0-0.7); Absolute Lymphocyte Count 1.76 10^3/uL (1.2-3.4); Absolute Monocyte Count 0.19 10^3/uL (0.1-0.8); Absolute Neutrophil Count 1.63 10^3/uL (1.2-6.7); Basophils % 0.6; Eosinophils % 0.3; HCT 33.7 % (36.0-46.0); HGB 11.7 g/dL (11.2-15.7); Immature Grans % 0.3; Lymphocytes % 48.6; MCH 37.3 pg (27.0-33.0); MCHC 34.7 % (32.0-36.0); MCV 107 fL (80-95); MPV 10.4 fL (8.0-11.0); Monocytes % 5.2; Platelet Count 105 10^3/uL (130-400); RBC 3.14 10^6/uL (3.93-5.22); RDW 12.6 % (11.7-14.6); RDW-SD 48.5 fL; WBC 3.62 10^3/uL (4.4-10.8)
[2022-10-25 16:58] LABS: ALT 50 U/L (14-59); AST 53 U/L (15-37); Alkaline Phosphatase 60 U/L (46-116); Anion Gap 9.4 mmol/L (3-11); BUN 7 mg/dL (7-18); Bilirubin, Total 0.8 mg/dL (0.2-1.0); CO2 27.6 mmol/L (21.0-32.0); Calcium 7.7 mg/dL (8.5-10.1); Chloride 106 mmol/L (98-107); Estimated GFR 62.52 (mL/min/1.73m2); GGT 81 U/L (5-55); Glucose 98 mg/dL (74-106); LDH 180 U/L (81-234); Magnesium 1.1 mg/dL (1.8-2.4); PHOSPHORUS < 2.0 mg/dL (2.6-4.7); Sodium 143 mmol/L (136-145); Total Protein 6.6 g/dL (6.4-8.2)
[2022-10-25 17:26] LABS: Diff Comment RBC Morph Reviewed
[2022-10-25 17:27] LABS: Microcytosis 1+
[2022-10-25 17:45] LABS: Potassium 2.9 mmol/L (3.5-5.1)
[2022-10-26 14:36] LABS: 4/8 Ratio 0.06 (>=0.90); Absolute CD3 1652 Cells/uL (840-2669); Absolute CD8 1554 Cells/uL (154-1097); CD3 90 % (56-84); CD4 5 % (31-64); CD8 84 % (9-39)
== END 2022-10-25 18:36 | disposition home or self-care (01) ==
LOC: LBN 18:35
PROVIDERS: PCP Nurse Practitioner; Visit Provider Nurse Practitioner Family
DX: B20 Human immunodeficiency virus [HIV] disease (principal); Z79.899 Other long term (current) drug therapy
CPT/HCPCS: 80053; 82977; 83615; 83735; 84100; 85025; 86359; 86360

== ENCOUNTER 2022-11-02 13:15 | Outpatient (CLI) | payer OTHER, MEDICAID, SELFPAY ==
--- NOTE | 2022-11-02 13:22 | W.CCNOTE ---
Comprehensive Care Clinic Note Note: [facility] [address] [place]? [address] [facility] of [facility] Visit for Medical Follow Up Name: Josiane Pacheco ? Date of : 1955 ? Primary Care Provider: [facility] Date of Service: 11/02/2022 SUBJECTIVE CC: Home visit for status check and go over blood work. HPI: Josiane cancelled last week's in person visit here at [facility] as she had a F/U visit with her Neurologist, Dr. Wills, @ [facility] and was also hoping to be able to see GI as she is once again having intermittent dysphagia and some of the HIV meds are not going down. This has been going on for over a month. She says she has only been able to eat soft foods and does not think she has lost weight but now is having diarrhea. She also has a red dot rash on her arms and legs. She says she is increasingly depressed, hates where she lives because of all the drug users and dealers around her and wishes she had moved before the pandemic. (Note she did not want to move then to [facility] or another assisted situation) ROS Constitutional: Feels fatigued a lot of the time, some loss of appetite, sleep. Weight is perhaps up. Skin: C/O a ?red dot? rash on her arms. Legs and trunk Head: Denies trauma, head pain Eyes: Denies visual disturbance, has reading glasses Ear/Nose/Throat: Negative Mouth/Teeth: C/O needing dental work as she has lost some teeth Neck: No pain or stiffness CV: Denies chest pain, pressure, palpitations Respiratory: Some smokers cough in the morning, denies dyspnea, hemoptysis GI: Denies nausea but will have some vomiting up food and pills with cocking due to esophageal strictures having returned, + diarrhea, denies rectal bleeding : Negative Musculoskeletal: Denies joint pain has some back pain Endocrine: No polyuria, polydipsia; heat or cold intolerance Lymphatic: Has not noted any enlarged nodes Hematologic: Denies bleeding such as epistaxis, has had some increased bruising Immunologic: snf AIDS w CD4 below 200 Neurological: Has had 2 seizures and attributes this to not swallowing all her pills Psychiatric: + Anxiety, Depression, has had wished to be but denies active suicidal planning Allergies/Sensitivities: NKDA Current HIV Medications: lamuvadine solution 10mg/1ml ? 150 mg (15 ml) bid Tivicay (dolutegravir) 50 mg tab daily Vemlidy (tenofovir alafenamide) 25 mg tab daily sulfamethozole/trimethoprim 200 mg/40 mg/ 5 ml ? 400/80 mg (10ml) daily Neurology medications Vimpat 10 mg/1 ml ? 150 mg (15 ml) bid Clonazepam 1 mg tab bid Hydroxyzine 10 mg/ 5 ml ? 12.5 ml (125 mg) tid prn anxiety Medical / Surgical History Update: Needs [facility] follow up and esophageal dilatation Psychiatric History Update: Does not see a counselor, or have depression Tx. Social History Update: Remains very isolated Employment: Disabled Health Insurance: Medicare and Medicaid Substance Use: ? Tobacco: Some smoking cigarettes ? ETOH: Says she has not had ETOH for some weeks now ? Drug Use: Denies Family History Update: ?Nothing new, still no contact with her son Immunization Needed? Will need flu and next generation Covid immunization Health Maintenance: Is up to date with her PCP OBJECTIVE Height: 5? 6? Weight: 210# Temp: 97.9, Pulse: 76, Respirations: 14, Blood Pressure: 104/70 General: ?Obese, WDWNL, AINAD Skin: ?W/D, petechial type rash noted on arms and thighs Head: ?NCAT Eyes: non icteric Neck: Supple, Thyroid non palp, no swelling/crepitus Chest: Full, equal expansion, Lungs clear on all lobes CV: RRR, No MCRG, extremity pulses 2/4 w symmetry Abdomen: NABS, ND, NT, No OGM noted ? abdomen obese : NE Neuro: Gait strong and steady, No tics or tremor, Strength 5/5 all extremities, DTRs 2/4 Lymphatic: No palpable enlarged nodes Ortho: FROM all joints w/o swelling or erythema Psychiatric: - appearance: well groomed - eye contact: ?fair - attitude: cooperative - speech: normal for her with some interrupted hesitations ? nothing new, no slurring - affect: restricted - mood: depressed, anxious, irritable, tearful at times - memory: short term intact, parts counterman intact - self-perception: mostly WNL, some self-deprecating - motor activity: normal - orientation: intact - attention: intact - thought process: logical - thought content: normal - perceptions: WNL - judgement: seemingly intact, perhaps some impaired minimally - insight: fair ASSESSMENT/PLAN MD visit scheduled: For Clinic Lab work ordered: ?HIV 1 RNA, PRC Quantitative w reflex to genotypic testing - to be drawn 11/07/22. Provider of Care:? Brittanie Pina, MSN, NAILING MACHINE OPERATOR AUTOMATIC Discussed resules of Lab work drawn 10/25/22: (Results also faxed to Dr. Myers with above note.) WBC 3.62, platelets 105, K+ 2.9, Ca+ 7.7, PO4 <2, Mg 1.1, AST 53, ALT 50, GGT 81, Albumin 3.0.??CD4 86 w a % of 5, HIV 1 RNA, PCR was not done due to Lab mishandling and needs to be redrawn with a reflex to genotypic testing. Scheduled for 11/07/22 @ 11am for home visit redraw. I think she is a good candidate for IM HIV medication but her viral load needs to be undetectable to start it. Spoke with Dr. Wills who will discuss esophageal dilatation w Dr. Cordova of GI at [facility] Inpatient?
== END 2022-11-02 13:16 | disposition home or self-care (01) ==
LOC: CCC 13:19
PROVIDERS: PCP Nurse Practitioner; Visit Provider Nurse Practitioner Family
DX: B20 Human immunodeficiency virus [HIV] disease (principal); Z79.899 Other long term (current) drug therapy; R21 Rash and other nonspecific skin eruption; R19.7 Diarrhea, unspecified; R11.10 Vomiting, unspecified
CPT/HCPCS: 99214

== ENCOUNTER 2022-11-07 15:16 | Outpatient (REF) | payer OTHER, MEDICAID, SELFPAY ==
[2022-11-07 14:15] LABS: Iron 162 ug/dL (50-170); Total Iron Binding Capacity 219 ug/dL (250-450); Transferrin Sat 74 % (15-50)
[2022-11-17 10:09] LABS: HIV 1 RNA Qualitative Detected (Undetected)
[2022-11-17 10:10] LABS: HIV 1 RNA Quantitative 65200 (Undetected); HIV-1 group M subtype B
[2022-11-17 10:11] LABS: Atazanavir + Ritonavir SUSC; Darunavir + Ritonavir SUSC; Doravirine SUSC; Fosamprenavir + Ritonavir SUSC; Indinavir + Ritonavir SUSC; Lopinavir + Ritonavir SUSC
[2022-11-17 10:12] LABS: Bictegravir SUSC; Cabotegravir SUSC; Dolutegravir SUSC; Elvitegravir SUSC; Raltegravir SUSC; Saquinavir + Ritonavir SUSC; Tipranavir + Ritonavir SUSC
[2022-11-17 10:13] LABS: HIV Genotypic Drug Resistance INTERP
[2022-11-17 10:14] LABS: HIV RNA copies/mL <30 days = See Comments
== END 2022-11-07 15:17 | disposition home or self-care (01) ==
LOC: LBN 15:16
PROVIDERS: PCP Nurse Practitioner; Visit Provider Nurse Practitioner Family
DX: B20 Human immunodeficiency virus [HIV] disease (principal); Z79.899 Other long term (current) drug therapy
CPT/HCPCS: 87536; 83540; 83550; 87901

== ENCOUNTER 2022-11-16 13:07 | Outpatient (CLI) | payer OTHER, MEDICAID, MEDICARE, SELFPAY ==
--- NOTE | 2022-11-16 14:04 | W.CCNOTE ---
Comprehensive Care Clinic Note Note: [facility] [address] [place]? [address] [facility]3] of [facility] Visit for Medical Follow Up Name: Josiane Pacheco ? Medical Record [id number] Date of :? 1955? 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 She says she has not had a seizure this week. She tell me that Dr. Cordova has scheduled an endoscopic procedure for her this coming 11/22/22, and will do a dilatation of her esophagus based on his findings. She is in the process of securing a ride with [employer]. She continues to have diarrhea although it has slowed a little today. Her K+ was 2.9 on recent lab work and KCL liquid was ordered. She started is yesterday and is tolerating it and keeping it down. A repeat set of electrolytes will be done in 2 weeks. She is back to taking the Bactrim liquid daily once her low T cell count was reported. She had been above 200 for a time and stopped it. They are now in the 80?s with a viral load of over 65,000. It is critical that she be able to swallow the HIV medications as well as her anti-seizure medication. Since we had a conversation with Dr. Wills and he said she may crush her Vimpat tabs, she has been trying to do so without much success as she does not have a pill ceramics instructor. One will be provided for her through this clinic. It is stressed to her to take all her medications to stop seizures so she does not have one during the procedure on Monday. She thinks she will be able to do this now that they can be crushed. ROS Constitutional: Easily fatigued, loss of appetite, interrupted sleep. Weight down but she does not feel like she has lost weight. Skin: + on arms, trunk and legs, no much puretic Head: Denies trauma, Has an intermittent frontal area Pressure headache. Eyes: Denies visual disturbance, has reading glasses Ear/Nose/Throat: +Rhinorrhea ? clear, frequent nose blowing, Mouth/Teeth: Missing teeth and needs dental attention at some point Neck: No pain or stiffness CV: Denies chest pain or pressure, gets palpitations with exertion Respiratory: Some smokers cough in the morning, + dyspnea w exertion, frequently will have to sit down if she does stair climbing, denies hemoptysis GI: + N/V/D, no rectal bleeding : Mild burning with urination, no frequency, thinks she is urinating lower amount given her PO fluid intake Musculoskeletal: Denies joint or back pain Endocrine: No polyuria, polydipsia; Has both heat and cold intolerance Lymphatic: Has not noted any enlarged nodes Hematologic: No unusual bleeding, bruising Immunologic: CD4 count has been below 200 numerous times and is again, + risk for OI Psychiatric: + Anxiety, Depression, Denies SI/HI Allergies/Sensitivities: NKDA Current Medications: (reconciliation done today ? she is not consistently keeping these down other than the liquids. lamuvdine solution 10 mg/ 1 ml ? 15 ml (150 mg) po bid Tivicay (dolutegravir) 50 mg po daily Vemlidy (tenofovir alafenamide) 25 mg po daily Sulfametethozole 200 mg/40 mg/5 ml ? 400/800 mg (1o ml) daily KCL liquid 200 meq po bid ? started yesterday 11/15/2022 Neurology meds lacosamide (Vimpat) 100 mg q AM, 200mg q PM Clonazepam 1 mg bid Hydroxizine 10 mg/ 5 ml ? 12.5 ml (125 mg) tid prn anxiety meloxicam 7.5 mg bid Medical / Surgical History Update: She now has an appointment at [facility] for endoscopic exam 11/22/22 Psychiatric History Update: Chronic depression ? today she says she feels more hopeful Social History Update: Wants to move and will work with social research assistant to accomplish this, hopefully before winter Employment:? Disabled Health Insurance: [facility], Medicare and Medicaid Substance Use: ? Tobacco: few cigarettes a day ? ETOH: Denies now ? Drug Use: Never Family History Update: ?Nothing new Immunization Needed? She is UTD at present and will need flu and Covid booster in November Health Maintenance: UTD w PCP OBJECTIVE Height: 5?6?Weight: 200 Temp:99.5 F ?Pulse: 110 Respirations: 14 @ rest ? Blood Pressure: 104/70, Ambulatory SAO2% 93, @ rest is 94% General: ?WDWNL, Ambulatory w dyspnea and slight audible wheeze Skin: ?W/D, nodular, fungal type rash on arms, trunk and legs, no petechial rash noted today Head: ?NCAT Eyes: non icteric Ears, Nose, Mouth: NE due to masking Sinuses: Tender frontal facial sinus area w/o boggy feel, maxillary neg. Teeth: NE Neck: Supple, Thyroid non palp, no swelling/crepitus Chest: Full, equal expansion, some scattered wheezes on expiration and diminished breath sounds in the right base CV: RRR, No MCRG, extremity pulses 2/4 w symmetry Abdomen: NABS, ND, NT, No OGM or masses felt, No Bruits : NE Neuro: Gait strong and steady, No tics or tremor, Strength 5/5 all extremities, DTRs 2/4 Lymphatic: No palpable enlarged nodes Ortho: FROM all joints w/o swelling or erythema Psychiatric: - appearance: well groomed - eye contact: fair - attitude: cooperative - speech: normal for her usual aki - affect: appropriate - mood: depressed - memory: short term intact, rat exterminator intact - self-perception: WNL - motor activity: normal - orientation: intact - attention: intact - thought process: logical - thought content: normal - perceptions: WNL - judgement: intact - insight: good ASSESSMENT/PLAN MD visit scheduled: 11/21/22 @ 10:30 am, [facility] - 11/22/22 Lab work ordered: ?UTD at present, will be due for electrolytes check in 2 weeks, awaiting HIV1 genotypic testing results. Provider of Care:? Brittanie Pina, MSN, ANTHROPOLOGIST
== END 2022-11-16 13:08 | disposition home or self-care (01) ==
LOC: CCC 13:11
PROVIDERS: PCP Nurse Practitioner; Visit Provider Nurse Practitioner Family
DX: B20 Human immunodeficiency virus [HIV] disease (principal); Z79.899 Other long term (current) drug therapy; E88.89 Other specified metabolic disorders
CPT/HCPCS: 99214

== ENCOUNTER 2022-12-06 14:31 | Outpatient (REF) | payer OTHER, MEDICAID, MEDICARE, SELFPAY ==
[2022-12-06 15:45] LABS: Anion Gap 8.3 mmol/L (3-11); CO2 27.7 mmol/L (21.0-32.0); Chloride 107 mmol/L (98-107); Potassium 4.2 mmol/L (3.5-5.1); Sodium 143 mmol/L (136-145)
== END 2022-12-06 14:32 | disposition home or self-care (01) ==
LOC: LBN 14:31
PROVIDERS: PCP Nurse Practitioner; Visit Provider Nurse Practitioner Family
DX: B20 Human immunodeficiency virus [HIV] disease (principal); E87.6 Hypokalemia; Z79.899 Other long term (current) drug therapy
CPT/HCPCS: 80051

== ENCOUNTER 2023-01-25 14:12 | Outpatient (REF) | payer OTHER, MEDICAID, MEDICARE, SELFPAY ==
[2023-01-25 15:07] LABS: MCV 107 fL (80-95); MPV 11.6 fL (8.0-11.0); RBC 1.88 10^6/uL (3.93-5.22); RDW 18.1 % (11.7-14.6); RDW-SD 67.3 fL
[2023-01-25 15:40] LABS: ALT 40 U/L (14-59); AST 47 U/L (15-37); Albumin 3.3 g/dL (3.4-5.0); Alkaline Phosphatase 54 U/L (46-116); Anion Gap 11.5 mmol/L (3-11); BUN 23 mg/dL (7-18); Bilirubin, Total 1.5 mg/dL (0.2-1.0); CO2 25.5 mmol/L (21.0-32.0); CREATININE 1.4 mg/dL (0.55-1.02); Calcium 9.1 mg/dL (8.5-10.1); Chloride 98 mmol/L (98-107); Estimated GFR 41.75 (mL/min/1.73m2); Glucose 120 mg/dL (74-106); Potassium 3.3 mmol/L (3.5-5.1); Sodium 135 mmol/L (136-145); Total Protein 6.7 g/dL (6.4-8.2)
--- NOTE | 2023-01-25 15:47 | CCCE_ITS ---
Comprehensive Care Clinic Note Note: [facility] [address] [place]? [address] [facility] of [facility] Visit for Medical Follow Up Name: Josiane Pacheco ? Medical Record [id number] Date of : 1955 ? Primary Care Provider: [facility] Date of Service: 01/25/2023 SUBJECTIVE CC: ?This is a home visit status check and blood draw for 3 month CD4 and HIV Viral Load check after restarting her HIV antivirals after having the esophageal dilatation done at the end of October. HPI: After restarting all of her medications, Josiane was able to swallow them without vomiting and this continued for a few weeks. Unfortunately Josiane again started to have vomiting with swallowing, even water, in a little over a month ago and did not reach out to let any of her providers know this was reoccurring. She states she has not been able to keep many of the doses of her medications down. And is eating very little stating, ?I know I?m losing weight but my scale is broken.? She is having trouble getting to the grocery store but the drug sto re delivers to her. She also is C/O dizziness with extended standing. She fell 2 days ago hitting her coffee table and bruising her left hand and right knee. She does not describe loss of consciousness nor seizure activity. She does not think she has had a seizure. She says she has F/U with her neurologist, Dr. Wills, on 02/28/23. Some of her anti-seizure meds are staying down but not all the time. ROS Constitutional: Diminished energy & appetite, restless sleep. Weight loss and signs of wasting with ?I?m losing muscle?. Skin: Denies rash but skin is dry Head: Denies head trauma, off and on headaches Eyes: Denies visual disturbance Ear/Nose/Throat: C/O lots of mucus Mouth/Teeth: has tooth loss and dental gum disease Neck: No pain or stiffness CV: Denies chest pain, pressure, palpitations Respiratory: Some smokers cough in the morning, denies dyspnea, hemoptysis GI: ?+ N/V/D, denies rectal bleeding but her stool is watery black at times then orange in color the rest of the time : Negative Musculoskeletal: Has rib tenderness to touch since fall 2 days ago Endocrine: No polyuria Lymphatic: Has not noted any enlarged nodes Hematologic: + ease of bruising, C/O black stool diarrhea off and on Immunologic: + AIDS & CD4 count was down in September (see obj) Psychiatric: periods of Anxiety, + chronic Depression, sometimes thinks she would be better ? no active SI Allergies/Sensitivities: NKDA Current Medications: (many she is not keeping down) lamuvidine solution 10 mg/ 1 ml ? 15 ml (150 mg) po Tivicay )dolutegravir) 50 mg po Vemlidy (tenofovir alafenamide_ 25 mg po daily Sulfametethozole 200mg/40mg/5ml ? 10 ML daily to = 400/800 mg KCL 200meq liquid po daily Neuro meds lacosamide (Vimpat) 100mg q AM, 200 mg q PM Clonazepam 1mg bid Hydroxizine 10 mg/ 5 ml ? 12.5 ml (125) tid prn anxiety meloxicam 7.5 mg bid Medical / Surgical History Update: She had her fourth esophageal [place] [facility] [place] was able to swallow well for a few weeks until the stricture symptoms returned. Psychiatric History Update: Chronic depression remains Social History Update: No change, she is isolated, on a list for an apartment at [facility] and other elderly apartment housing but housing now is very tight Employment:? Disabled Health Insurance: [employer] [place], Medicaid, Medicare A&B Substance Use: ? Tobacco: smoker ? ETOH: Denies now ? Drug Use: Denies, has smoker MJ in the past to control vomiting Family History Update: ?Nothing new Immunization Needed? YES ? went to [facility] for flu and Covid vaccine and told she didn?t have an appointment, her insurance provided transportation and the ride took her home. After home for a few minutes, [facility] called stating she did have an appointment and could come back. Too late, the ride was gone. OBJECTIVE Weight: her scale is broken, Temp: 98.1, Pulse: 92, Respirations: 14, Blood Pressure: 120/80 both sitting and standing, 104/60 p 2 min General: pale, cachectic in appearance, muscle wasting in arms and legs Skin: ?W/D, no rash or lesions noted, turgor fair Head: ?NCAT Eyes: non icteric Ears, Nose, Mouth: NE due to masking Teeth: NE Neck: Supple, Thyroid non palp, no swelling/crepitus Chest: Chest wall tenderness with palpation anterior left lower ribs, movement with symmetry with expansion, Full, equal expansion, Lungs clear on all lobes CV: RRR, No MCRG, extremity pulses 2/4 w symmetry Abdomen: NABS, ND, NT, No OGM or masses felt, No Bruits : NE Neuro: Gait slow but strong and steady, No tics or tremor Lymphatic: No palpable enlarged nodes Ortho: FROM all joints w/o swelling or erythema Psychiatric: - appearance: well groomed - eye contact: good - attitude: cooperative - speech: normal - affect: appropriate - mood: depressed - memory: short term intact, vessel slagman intact - self-perception: @ times self-deprecating - motor activity: normal - orientation: intact - attention: intact - thought process: logical - thought content: normal - perceptions: WNL ASSESSMENT/PLAN HIV/AIDS - wasting N/V/D MD visit scheduled: 02/13/2023 Lab work ordered: ?CBCD, CMP, CD4 immunodeficiency panel, HIV RNA PCR Quantitative Provider of Care:? Brittanie Pina, MSN, UPHOLSTERY CUTTER Lab results of 2022: ? 04/06/22 ? 07/27/22? 10/25/22? 12/06/22 H&H? 16.4/47.8? 14.9/46/1? 11.7/33.7 WBC? 7.47? 6.78? 3.62 CD4 absolute 228? 236? 86 CD4%? 6? 7? 5 HIV VL? 88? 1280? 65,200 K+? 3.8? 2.9? 4.2
[2023-01-25 18:53] LABS: Absolute Eosinophil Count 0.03 10^3/uL (0.0-0.7); Absolute Lymphocyte Count 1.12 10^3/uL (1.2-3.4); Absolute Monocyte Count 0.08 10^3/uL (0.1-0.8); Atypical Lymphocytes % 2
[2023-01-25 18:54] LABS: Diff Comment Diff Reviewed
[2023-01-25 18:55] LABS: Anisocytosis 1+; Hypochromasia 2+; Macrocytosis 2+; Polychromasia Present
[2023-01-25 19:10] LABS: Absolute Neutrophil Count 0.41 10^3/uL (1.2-6.7); WBC 1.64 10^3/uL (4.4-10.8)
[2023-01-25 19:12] LABS: Platelet Count 61 10^3/uL (130-400)
[2023-01-25 22:14] LABS: HCT 20.2 % (36.0-46.0)
[2023-01-26 13:15] LABS: HIV 1 RNA Qualitative Detected copies/mL (Undetected); HIV 1 RNA Quantitative 867 copies/mL (Undetected)
[2023-01-27 11:41] LABS: 4/8 Ratio 0.04 (>=0.90); Absolute CD3 1176 Cells/uL (840-2669); Absolute CD8 1133 Cells/uL (154-1097); CD3 93 % (56-84); CD4 4 % (31-64); CD8 89 % (9-39)
== END 2023-01-25 14:13 | disposition home or self-care (01) ==
LOC: LBN 14:12
PROVIDERS: PCP Nurse Practitioner; Visit Provider Nurse Practitioner Family
DX: B20 Human immunodeficiency virus [HIV] disease (principal)
CPT/HCPCS: 80053; 87536; 85025; 86359; 86360

== ENCOUNTER 2023-01-25 14:21 | Outpatient (CLI) | payer OTHER, MEDICAID, SELFPAY | END 2023-01-25 14:22 | disposition home or self-care (01) | LOC: CCC 14:39 | PROVIDERS: PCP Nurse Practitioner; Visit Provider Nurse Practitioner Family | DX: B20 Human immunodeficiency virus [HIV] disease (principal); Z79.899 Other long term (current) drug therapy; R11.2 Nausea with vomiting, unspecified; R19.7 Diarrhea, unspecified; I95.1 Orthostatic hypotension | CPT/HCPCS: 99214 ==

== ENCOUNTER 2023-04-12 17:58 | Outpatient (REF) | payer OTHER, MEDICAID, SELFPAY ==
[2023-04-13 12:16] LABS: HIV 1 RNA Qualitative Detected copies/mL (Undetected); HIV 1 RNA Quantitative <20 copies/mL (Undetected)
== END 2023-04-12 17:59 | disposition home or self-care (01) ==
LOC: LBN 17:58
PROVIDERS: PCP Nurse Practitioner; Visit Provider Nurse Practitioner Family
DX: B20 Human immunodeficiency virus [HIV] disease (principal); Z79.899 Other long term (current) drug therapy
CPT/HCPCS: 87536

== ENCOUNTER 2023-06-26 13:12 | Outpatient (CLI) | payer OTHER, MEDICAID, SELFPAY ==
--- NOTE | 2023-06-26 13:17 | CCCE_ITS ---
Comprehensive Care Clinic Note Note: Josiane is here today for follow up for starting a new HIV medication regimen with Carbenuva injectable on May 29, 2023 after achieving an undetectable HIV viral load so this could be started. Today she has received the second in the double injection doses and from here will go to every 8 week injections. She has had no adverse side effects and states that the injection areas were sore for a few days and after this she had no uncomfortable sensations in the bilateral vent gluteus. She states over all she is feeling well. She ia able to swallow her other medications and has not missed any doses. She is eating regularly and is maintaining her weight. She has not had any febrile illness since last month and the diarrhea is minimal. She is not vomiting. She has a rare cigarette and is not drinking ETOH. ROS: Denies fever, chills, night sweats, rash, sleep disturbance, dusphagia, N/V/D, swelling, cough or dyspnea and is maintaining her weight. She denies recent seizure activity. There have been no changes in her other medications and she had F/U w her neurologist this month and he was pleased with her progress. Psychiatric: She states she has not had anxiety this past month and feels her chronic depression is remaining better now that she is not vomiting every day. She remains lonely without family contact amd living alone in her apartment in a building that isolates her. We discussed again moving and she continues to contemplate this as perhaps a better option for her but there is housing shortages and she knows she will have to wait for housing to open up. She denies HI/SI. OBJ: VS: 98.2, 78, 14, 124,70, weight 204# AINAD, gait strong and steady Skin clear EYES: Nonicteric ENT: Clear, uvula midline LUNGS: Clear in all lobes CV: RRR, No MCRG Abd: Obese, soft ND, NT, No palpable OGM Neuro: No tremor, tics LE w/o edema Psych Mood euthymic, Affect normal, eye contact good A/P HIV/AIDS w H/O wasting and very low T cell count w OIs due to esophageal stricture and inability to consistently swallow pills and keep them down. A F/U phone check in will be made jessica week or so. She is to call or go to the ER if she has any adverse reaction. Continue the Carbenuva injections as ordered and F/U in 2 months with blood work and MD visit as well as 3rd in the Carbenuva series. Brittanie Pina FRAME SAMPLE AND PATTERN SUPERVISOR
== END 2023-06-26 13:13 | disposition home or self-care (01) ==
LOC: CCC 13:14
PROVIDERS: PCP Nurse Practitioner; Visit Provider Nurse Practitioner Family
DX: B20 Human immunodeficiency virus [HIV] disease (principal); Z79.899 Other long term (current) drug therapy
CPT/HCPCS: 99214

== ENCOUNTER 2023-07-31 15:09 | Outpatient (REF) | payer OTHER, MEDICAID, SELFPAY ==
[2023-07-31 18:58] LABS: Abs Immature Grans 0.01 10^3/uL (0.0-0.06); Absolute Basophil Count 0.08 10^3/uL (0.0-0.2); Absolute Eosinophil Count 0.12 10^3/uL (0.0-0.7); Absolute Lymphocyte Count 1.99 10^3/uL (1.2-3.4); Absolute Monocyte Count 0.29 10^3/uL (0.1-0.8); Basophils % 1.7 %; Eosinophils % 2.6 %; HCT 39.7 % (36.0-46.0); HGB 13.5 g/dL (11.2-15.7); Immature Grans % 0.2 %; Lymphocytes % 43.4 %; MCH 38.8 pg (27.0-33.0); MCV 114 fL (80-95); MPV 8.6 fL (8.0-11.0); Monocytes % 6.3 %; Neutrophils % 45.8 %; Platelet Count 253 10^3/uL (130-400); RBC 3.48 10^6/uL (3.93-5.22); RDW 14.6 % (11.7-14.6); RDW-SD 62.4 fL; WBC 4.59 10^3/uL (4.4-10.8)
[2023-07-31 19:41] LABS: Diff Comment RBC Morph Reviewed; Macrocytosis 2+
--- NOTE | 2023-08-02 13:05 | CCCE_ITS ---
Comprehensive Care Clinic Note Note: Name: Josiane Pacheco ?Medical Record [id number] Date of : 1955 ?PCP: [facility] Date of Service: 07/31/2023 SUBJECTIVE CC: ?This is a home visit status check and blood draw for 2 month CD4 and HIV Viral Load check after the start of injectable HIV antivirals, Cabanuva (Cabotegravir & Rilpivirine), on 05/29/2023. She had an undetectable HIV viral load after a restart of the oral HIV antivirals, lamuvidine solution 10 mg/ 1 ml ? 15 ml (150 mg) po, Tivicay (dolutegravir) 50 mg po, & Vemlidy (tenofovir alafenamide) [TAF] 25 mg po daily after having the esophageal dilatation done at the end of October,. Prior to the repeat procedure, she was unable to swallow any of her medications consistently and her VL increased to 65,200 w a drop in her CD4 from 228 in 03/2022 to 86 in 09/2022.She had restarted PCP prophylaxis then w Sulfametethozole 200mg/40mg/5ml ? 10 ML daily to = 400/800 mg. HPI: This home visit is for a status check in her home environment and a blood draw as it is now 1 month after the second injections of the Cabanuva administered on 06/26/23 in both vent gluteus muscles. Josiane states that she had n o adverse reaction to this set of injections just like when she had the first set on 05/29/23. She had soreness in the muscle for about 3 days but this was not interfering. She continues to take her other medications as prescribed and is not having any swallowing difficulty reoccurring. She is not able to get out to do shopping and is having some assistance from her neighbors. She also says that [employer] is bringing her mid-day meals. [facility] sends her food cards. ROS Constitutional: Still fatigues easily but over all states her energy level is ok as well as appetite, sleep is always restless but she is not being awakened with diarrhea. Skin: Denies rash but skin is dry Head: Denies head trauma, rarely has an off and on headache Eyes: Denies visual disturbance Ear/Nose/Throat: C/O lots of mucus Mouth/Teeth: has tooth loss and dental gum disease Neck: No pain or stiffness CV: Denies chest pain, pressure, palpitations Respiratory: Some smokers cough in the morning, denies dyspnea, hemoptysis GI: ?No N/V, rare D : Negative Musculoskeletal: Bruised her left knee during a seizure a few weeks ago Endocrine: No polyuria Lymphatic: Has not noted any enlarged nodes Hematologic: + ease of bruising which is not new Immunologic: + AIDS ? assisted Psychiatric: periods of Anxiety, + chronic Depression, no active SI Allergies/Sensitivities: NKDA Current Medications: Cabotegravir 600mg/3ml IM vent gluteal Rilpivirine 900mg/3ml IM vent gluteal Sulfametethozole 200mg/40mg/5ml ? 10 ML daily to = 400/800 mg KCL 200meq liquid po daily Neuro meds lacosamide (Vimpat) 100mg q AM, 200 mg q PM Clonazepam 1mg bid Hydroxizine 10 mg/ 5 ml ? 12.5 ml (125) tid prn anxiety meloxicam 7.5 mg bid Medical / Surgical History Update: She had her fourth [place] [facility] [place] was able to swallow well for a few weeks until the stricture symptoms returned. This was then repeated in December, and she has had patent esophageal function since. Psychiatric History Update: Chronic depression remains Social History Update: No change, she is isolated, on a list for an apartment at [facility] and other elderly apartment housing but housing now is very tight and she says she is satisfied staying where she is for now. Employment:? Disabled Health Insurance: [employer], Medicaid, Medicare A&B Substance Use: ? Tobacco: smoker ? ETOH: Denies now ? Drug Use: Denies, has smoked MJ in the past to control vomiting Family History Update: ?Nothing new Immunization Needed? YES ?in the fall OBJECTIVE Weight: her scale is broken, Temp: 98.8, Pulse: 82, Respirations: 16, Blood Pressure: 108/70 General: remains pale, AINAD, no cachectic appearance remains Skin: W/D, no rash or lesions noted, turgor good Head:?NCAT Eyes: non icteric Ears, Nose, Mouth: clear Teeth: Missing many teeth Neck: Supple, Thyroid non palp, no swelling/crepitus Chest: movement with symmetry with expansion, Full, equal expansion Lungs: clear on all lobes CV: RRR, No MCRG, extremity pulses 2/4 w symmetry Abdomen: NABS, ND, NT, No OGM or masses felt, No Bruits : NE Neuro: Gait slow but strong and steady, No tics or tremor Lymphatic: No palpable enlarged nodes Ortho: FROM all joints w/o swelling or erythema Psychiatric: - appearance: well groomed - eye contact: good - attitude: cooperative - speech: normal - affect: appropriate - mood: depressed - memory: short term intact, rodent exterminator intact - self-perception: @ times self-deprecating - motor activity: normal - orientation: intact - attention: intact - thought process: logical - thought content: normal - perceptions: WNL ASSESSMENT/PLAN HIV/AIDS - wasting N/V/DNext administration of IM Carbenuva due the end of July and she will remain on an eight week cycle at this point as long as the HIV Viral Load is remaining undetectable. MD visit scheduled: Monday, August. Blood drawn from left antecubital - Lab work ordered: ?CBCD, CD4 immunodeficiency panel, HIV RNA PCR Quantitative. Provider of Care:? Brittanie Pina, MSN, PRECISION ASSEMBLY INSPECTOR
[2023-08-03 11:47] LABS: HIV 1 RNA Qualitative Detected copies/mL (Undetected); HIV 1 RNA Quantitative <20 copies/mL (Undetected)
== END 2023-07-31 15:10 | disposition home or self-care (01) ==
LOC: LBN 15:09
PROVIDERS: PCP Nurse Practitioner; Referring Provider Internal Medicine Infectious Disease; Visit Provider Nurse Practitioner Family
DX: B20 Human immunodeficiency virus [HIV] disease (principal)
CPT/HCPCS: 87536; 85025; 86359; 86360

== ENCOUNTER 2023-10-25 13:00 | Outpatient (CLI) | payer OTHER, MEDICAID, SELFPAY ==
--- NOTE | 2023-10-25 13:42 | W.CCNOTE ---
Comprehensive Care Clinic Note Note: Josiane Pacheco, 1955, has a home visit today and F/U of HIV/AIDS and injections of Cabenuva (Cabotegravir 600mg/3ml extended release/Rilpivirine 900mg/3ml extended release). HPI: ROS: PMH: PSH: Allergies: Medications: Social HX: OBJ: A/P: 1. HIV/AIDS doing well with the injectable ART and has had a sustained undetectable viral load. WIll be due for lab work in 2 months and F/U with DR. Myers. 2. Esophageal stricture with multiple reoccurrences after dilatation by [facility]. Symptoms have abated with the most recent one on
== END 2023-10-25 13:01 | disposition home or self-care (01) ==
LOC: CCC 13:41
PROVIDERS: PCP Nurse Practitioner; Visit Provider Nurse Practitioner Family
DX: B20 Human immunodeficiency virus [HIV] disease (principal); Z79.899 Other long term (current) drug therapy
CPT/HCPCS: 99214

== ENCOUNTER 2023-12-04 15:09 | Outpatient (CLI) | payer OTHER, MEDICAID, SELFPAY ==
--- NOTE | 2023-12-04 15:12 | W.CCNOTE ---
Comprehensive Care Clinic Note Note: 12/04/2023 HOME VISIT XXXXX
== END 2023-12-04 15:10 | disposition home or self-care (01) ==
LOC: CCC 15:10
PROVIDERS: PCP Nurse Practitioner; Visit Provider Nurse Practitioner Family
DX: B20 Human immunodeficiency virus [HIV] disease (principal); Z79.899 Other long term (current) drug therapy
CPT/HCPCS: 99214

== ENCOUNTER 2023-12-04 16:26 | Outpatient (REF) | payer OTHER, MEDICAID, SELFPAY ==
--- OUTSIDE RECORDS SUMMARY | 2023-12-04 16:28 | XMS_ITS | Clinical Summary ---
Author Organization [facility] Address [facility] [place] [address] Care Team Providers Care Livestock Auctioneer Name Role Phone Melo Sarah Nancy MUNGUIA Primary Care Provider [phone] Allergies Active Allergy Reactions Criticality Noted Date Comments Lamotrigine 12/05/2012 Per patient very dizzy, double vision, and hard to keep walking. Topiramate Itching Medications Medication Sig Dispensed Refills Start Date End Date Status cyanocobalamin, Vitamin B-12, (Vitamin B-12) 1,000 mcg tablet Take 1 tablet by mouth Daily at Noon. 01/12/2023 Active Cabenuva 600 mg/3 mL- 900 mg/3 mL IM injection Inject 6 mLs into the muscle Every 8 Weeks. 07/03/2023 Active lacosamide (Vimpat) 200 mg tabletIndications:Parti al epilepsy with impairment of consciousness, intractable Take 1 tablet by mouth 2 times daily. 60 tablet 5 09/14/2023 Active clonazePAM (KlonoPIN) 1 mg disintegrating tabletIndications:Parti al epilepsy with impairment of consciousness, intractable,Anxiety disorder, unspecified type Take 1 tablet by mouth 2 times daily. 60 tablet 5 10/02/2023 Active meloxicam (Mobic) 7.5 mg tablet Take 1 tablet by mouth 2 times daily as needed for Pain. 180 tablet 1 10/02/2023 Active hydrOXYzine (Atarax) 10 mg/5 mL SolutionIndications:Par tial epilepsy with impairment of consciousness, intractable,Anxiety disorder, unspecified type Take 5 mLs by mouth 3 times daily. 450 mL 5 10/02/2023 Active Active Problems Problem Noted Date Diagnosed Date AIDS 09/08/2020 Anxiety 09/08/2020 Bacterial pneumonia 09/08/2020 Dysphagia 09/08/2020 Family estrangement 09/08/2020 Electrolyte depletion 09/08/2020 Herpes zoster 09/08/2020 History of alcohol abuse 09/08/2020 Prolapsed external hemorrhoids 09/08/2020 Renal cyst 09/08/2020 Status post cholecystectomy 09/08/2020 Status post colonoscopy with polypectomy 021 Subdural hematoma without coma 09/08/2020 Vitamin D deficiency 09/08/2020 Migraine with aura 09/08/2020 Dermatitis 03/07/2017 Pruritus 03/07/2017 ETOH abuse 04/11/2016 Overview (04/11/2016): intermittent Now in remission Colon polyps 04/11/2016 Overview (04/11/2016): Has had colonoscopy Elevated liver enzymes 04/11/2016 Overview (04/11/2016): Attributed to medications and alcohol. Doing well at present Hiatal hernia 10/16/2015 Gastro-esophageal reflux disease with esophagiti s 06/30/2015 Overview (04/11/2016): Has had dilatation of stricture Nicotine dependence 10/15/2013 Fissure in ano 07/12/2013 Overview (04/11/2016): Treated topically Hemorrhoids 07/12/2013 Rosacea 07/17/2012 Hyperlipidemia 02/10/2012 Migraine 04/25/2011 Overview (04/11/2016): Chronic headaches of various kinds, never fully controlled. Multiple imaging studies of the brain and lumbar punctures unrevealing Obesity 04/25/2011 Depression, recurrent 04/25/2011 HIV disease 05/28/2010 Dyslipidemia 05/28/2010 Partial epilepsy with impair ment of consciousness, intractable 05/18/2010 Overview (04/11/2016): Intractable epilepsy. Status post temporal lobectomy with persistent seizures. Tubular adenoma of colon 05/08/2010 Encounters Date Type Department Care Team Description 10/02/2023 [place] [address] Satya Wills MD Partial epilepsy with impairment of consciousness, intractable; Anxiety disorder, unspecified type 10/02/2023 Refill Neurology [place] [facility] [place] [address] Satya Wills MD 10/02/2023 [place] [address] Satya Wills MD Partial epilepsy with impairment of consciousness, intractable; Anxiety disorder, unspecified type 09/28/2023 11:48 AM EDT Anesthesia [place] [address] Ruben Gregory MD Hartmann, Patrick R, MD 09/28/2023 11:00 AM EDT - 09/28/2023 11:30 AM EDT [place] [address] Johan Ovalle MD EGD, UPPER GI ENDOSCOPY (WRVU 2.09) 09/28/2023 9:38 AM EDT - 09/28/2023 1:34 PM EDT Hospital En[place] [address] Johan Ovalle MD Discharge Disposition: Home 09/14/2023 [place] [address] Satya Wills MD Partial epilepsy with impairment of consciousness, intractable 09/07/2023 [place] [address] Serena Lopez 09/04/2023 1:00 PM EDT Office Visit [place]rology [place] [facility] [place] [address] Satya Wills MD Partial epilepsy with impairment of consciousness, intractable; Esophageal stricture 09/04/2023 8:41 AM EDT - 09/04/2023 11:59 PM EDT Hospital Encounter Laboratory [place] [address] Discharge Disposition: Home 09/04/2023 Travel from Last 3 Months Immunizations Name Administration Dates Next Due Hepatitis B Unspecified Formulation 12/25/2002,0 06/17/2002 Influenza PF, Split 02/28/2016,03/28/2014 Influenza Quadrivalent, Pres ervative Free (6-35 Mos) 10/06/2016 Influenza Vaccine, Whole 12/16/2009,12/29,12/25/2005,02/15,12/25/2002 Pneumococcal Conjugate (Prevnar 13) 03/02/2012 Pneumococcal Polysaccharide (Pneumovax 23) 09/16/2009,02/27/2003 Tdap 10/03/2008 Social History Tobacco Use Types Packs/Day Years Used Date Smoking Tobacco: Former Cigarettes Q uit: 08/27/1987 Smokeless Tobacco: Never Tobacco Cessation:Counseling Given: Not Answered Comments:occasionally Alcohol Use Standard Drinks/Week Comments Not Currently 0 (1 standard drink = 0.6 oz pur e alcohol) occasionally Overall Financial Resource Strain (CARDIA) Answe r Date Recorded How hard is it for you to pa y for the very basics like food, housing, medical care, and heating? Somewhat hard 10/24/2022 Hunger Vital Sign Answer Date Recorded Within the past 12 months, y ou worried that your food would run out before you got the money to buy more. Often true 10/25/19 23 Ran Out of Food in the Last Year Not on file 10/24/2022 PRAPARE - Transportation Answer Date Re corded In the past 12 months, has l ack of transportation kept you from medical appointments or from getting medications? Yes 09/28 In the past 12 months, has l ack of transportation kept you from meetings, work, or from getting things needed for daily living? Yes 10/24/2022 Housing Stability Vital Sign Answer Gerardo e Recorded In the last 12 months, was t here a time when you were not able to pay the mortgage or rent on time? No 10/24/2022 In the last 12 months, how many places have you lived? 1 10/24/2022 In the last 12 months, was t here a time when you did not have a steady place to sleep or slept in a snf (including now)? No 10/24/2022 Education Answer Date Recorded What is the highest level of school you have completed or the highest degree you have received? Some college, no degree 10/24/2022 Sex and Gender Information Value Date Recorded Sex Assigned at Not on file Gender Identity Not on file Sexual Orientation Not on file Last Filed Vital Signs Vital Sign Reading Time Taken Comments Blood Pressure 126/90 09/28/2023 12:50 PM EDT Pulse 68 09/28/2023 10:04 AM EDT Temperature 36 ??C (96.8 ??F) 03/03/2023 12:05 PM EST Respiratory Rate 18 09/28/2023 12:50 PM EDT Oxygen Saturation 92% 09/28/2023 12:55 PM EDT Inhaled Oxygen Concentration - - Weight 81.6 kg (180 lb) 09/04/2023 12:33 PM EDT Height 168.9 cm (5' 6.5) 03/02/2023 3:11 PM EST Body Mass Index 28.62 03/02/2023 3:11 PM EST Plan of Treatment Upcoming Encounters Date Type Department Care Team (Late st Contact Info) Description 03/06/2024 1:30 PM EST [place] [address] Satya Wills MD [facility] [place] [address] Health Maintenance Due Date Last Done Comments CT Colonography 1955 FIT DNA 1955 FIT 1955 Sigmoidoscopy 1955 Meningococcal ACWY Vaccine ( 1 - Risk 2-dose series) 08/04/1959 Zoster vaccine (1 of 2) 1976 Breast Cancer Share Decision Needed 1997 Advance Directive 2012 Chlamydia Screening 03/04/2014 03/04/2013 Gonorrhea Screening 03/04/2014 03/04/2013 Breast Cancer screening 09/12/2015 09/11/2013, 06/14 HPV test 03/04/2016 03/04/2013, 03/02/2012 PAP Smear 03/04/2016 03/04/2013, 05/2012, 08/11/2010 Syphilis Screening 12/13/2016 12/14/2015, 1 , 03/02/2012, Additional history exists Tetanus/Diphtheria/Pertussis Vaccines (2 - Td or Tdap) 10/03/2018 10/03/2008 Bone Density Scan 2022 Pneumoccocal Vaccine: 65+ (4 of 4 - PPSV23 or PCV20) 2022 03/02/2012, 09/16/2009, 02/27/2003 Colonoscopy 04/21/2023 04/21/2020, 03/31, 04/28/2010 (See prior EHR), Additional history exists Colorectal Cancer Screening 04/21/2023 Covid-19 Vaccine (2022-2 4 season) 2023 07/06/2020, 06/08/2020 Influenza (Flu) vaccine (1 o f 1 - Influenza standard series) 10/29/2023 10/06/2016, 02/28/2016, 03/28/2014, Additional history exists Diabetes Screening (HgbA1C o r Glucose) 09/03/2026 09/04/2023, 10/24/2022, 04/20/2022, Additional history exists Sigmoidoscopy (10 year) with FIT yearly 04/21/2030 04/21/2020, 04/21/2020 Hepatitis B Screening Completed 07/15/2014 , 02/08/2013, 02/08/2013 Hepatitis C Screening Completed 07/15/2014, 013 Procedures Procedure Name Priority Date/Time Associated Diagnosis Comments Up Gi Endoscopy, Dilatn W Guide (60937) 09/28/2023 11:50 AM EDT Peptic stricture of esophagus Upper GI Endoscopy, Diagnostic (14135) 09/28/2023 11:50 AM EDT Peptic stricture of esophagus UPPER GI ENDOSCOPY Routine 09/28/2023 11 :36 AM EDT [facility] SINGH TEST-SINGH Routine 09/04/2023 2 :28 PM EDT SCAN, PERIPHERAL BLOOD Routine 09/04/2023 2:28 PM EDT DIFFERENTIAL, AUTOMATED Routine 09/04/2023 2:28 PM EDT Partial epilepsy with impairment of consciousness, intractable HEMOGRAM Routine 09/04/2023 2:28 PM EDT Partial epilepsy with impairment of consciousness, intractable HEPATIC FUNCTION PANEL Routine 09/04/2023 2:28 PM EDT Partial epilepsy with impairment of consciousness, intractable BASIC METABOLIC PANEL Routine 09/04/2023 2:28 PM EDT Partial epilepsy with impairment of consciousness, intractable CBC (WITH DIFF) Routine 09/04/2023 2:28 PM EDT Partial epilepsy with impairment of consciousness, intractable LACOSAMIDE LEVEL Routine 09/04/2023 2:28 PM EDT Partial epilepsy with impairment of consciousness, intractable MISCELLANEOUS LAB REQUEST Routine 09/04/2023 2:28 PM EDT Partial epilepsy with impairment of consciousness, intractable COLONOSCOPY Routine 04/21/2020 12:22 PM EST SYPHILIS ANTIBODY SCREEN WITH REFLEX Routine 12/14/2015 12:18 PM EDT Human immunodeficiency virus (HIV) disease HEPATITIS B SURFACE ANTIGEN Routine 07/15/2014 12:14 PM EDT Human immunodeficiency virus (HIV) disease Transaminitis HEPATITIS C ANTIBODY Routine 07/15/2014 12:14 PM EDT Human immunodeficiency virus (HIV) disease Transaminitis MAMMO SCREENING CAD BILATERAL Routine 09/11/2013 1:35 PM EDT GC/CHLAM Routine 03/04/2013 4:00 PM EST Screening examination for sexually transmitted disease PHOTOGRAPHIC REPRODUCTION TECHNICIAN MOLECULAR GENETICS REPORT Routine 03/04/2013 2:15 PM EST PHOTOGRAPHIC REPRODUCTION TECHNICIAN CYTOLOGY FINAL REPORT Routine 03/04/2013 2:15 PM EST from Last 3 Months or Most Recently Relevant to Health Maintenance Results * UPPER GI ENDOSCOPY (09/28/2023 11:36 AM EDT) Pathologist [facility] UPPER GI ENDOSCOPY [facility] Endoscopy Procedure Date: 09/28/2023 11:36 AM ? Patient Name: Josiane Pacheco ? Date of : 1955 ? Age: 68 ? Order #: [id number] ? Instrument Name: [id number] ? Procedure: ? Upper GI endoscopy Indications: ? Dysphagia, dilation of recurrent ? esophageal strictures Providers: ? Johan Ovalle MD, Emerita ? Willy Matthews, Mary Ellen ? Marlyn Goodrich Referring : ?Sarah Alejo Medicines: ? Monitored Anesthesia Care Procedure: ? The procedure, indications, ? benefits, risks and alternatives ? were explained to the patient. ? Specifically discussed were ? potential complications including, ? but not limited to, bleeding, ? perforation, infection, missing a ? cancer, and adverse medication ? reactions. The Endoscope was ? introduced through the mouth, and ? advanced to the second part of ? duodenum The upper GI endoscopy was ? accomplished without difficulty. ? The patient tolerated the procedure ? well. ? Findings: ? A few benign-appearing, intrinsic moderate ? stenoses/rings were found throughout the entire ? esophagus. The stenoses were traversed with tightest ? at the GE Jct with mild resistance. A guidewire was ? placed and the scope was withdrawn. Dilation was ? performed with a Savary dilator with mild resistance ? at 11 mm. Subsequent dilations were done at 12.8mm ? and 14mm. Followup exam showed multiple rents in the ? esophagus. ? A small hiatal hernia was present. ? The exam of the stomach was otherwise normal. ? Localized mildly erythematous mucosa without active ? bleeding and with no stigmata of bleeding was found ? in the duodenal bulb. ? Moderate Sedation: ? Not applicable - See Anesthesia documentation Impression: ?- Benign-appearing esophageal ? stenoses. Dilated to 14 mm. ? - Small hiatal hernia. ? - Erythematous duodenopathy. ? - No specimens collected. Recommendation: ?- Repeat upper endoscopy PRN for ? retreatment. ? - Consider PPI therapy given ? duodenopathy and esophagal ? strictures. ? - The attending physician listed ? above was present for the entire ? procedure. ? Attending Participation: ? I was present and participated during the entire ? procedure, including non-baldwin portions. ? __ Johan Ovalle MD 09/28/2023 12:38:37 PM This report has been signed electronically. Number of Addenda: 0 Note Initiated On: 09/28/2023 11:36 AM PROVATION 09/28/2023 11:3 6 AM EDT Sarah Alejo CLIENT TECHNICAL PROFESSIONAL GENERAL SURGICAL ORD ERABLES PROVATION * Miscellaneous Lab request (09/04/2023 2:28 PM EDT) Label Request received in lab. [facility] Blood 09/04/2023 2:28 PM EDT 09/04/2023 2:42 PM EDT Narrative Resulting Agency Comment Spec In Lab Satya Wills MD LAB SEND OUT ORDERAB LES [facility] [place] [address] * [facility] Singh Test-Singh (09/04/2023 2:28 PM EDT) Misc Singh Test ? Result ? Flag ??Unit ?? RefValue ------- Clonazepam and Metabolite, S ??Clonazepam ? 11 ? ng/mL ?Reporting Limit: 2.0 ng/mL ?Synonym(s): Klonopin(R) ?Therapeutic range: 10-75 ng/mL. ?Toxic: Greater than 100 ng/mL. ?Analysis by High Performance Liquid Chromatography/ ?Tandem Mass Spectrometry (LC-MS/MS) ??7-Amino Clonazepam ? 15 ? ng/mL ?Reporting Limit: 5.0 ng/mL ?Synonym(s): Clonazepam Metabolite ?Plasma concentrations following chronic therapy with 6 ?mg/day of Clonazepam: 20-140 ng/mL. ?Analysis by High Performance Liquid Chromatography/ ?Tandem Mass Spectrometry (LC-MS/MS) ?This test was developed and its performance ?characteristics determined by [facility]. ??It has not ?been cleared or approved by the US Food and Drug ?Administration. ?Digital data review may have taken place remotely by ?qualified [facility] staff utilizing a secure VPN connection ?for some or all of the reported results. This is in ?accordance with and follows CLIA regulations. ?Test Performed by: ?[facility] ?[address] ?[place] ??[id number] [facility] Blood Venous Draw / Unknown 09/04/2023 2:28 PM EDT 09/20/2023 2:52 PM EDT Narrative Resulting Agency Comment Spec In Lab Satya Wills MD LAB SEND OUT ORDERAB LES [facility] [place] [address] * Lacosamide Level (09/04/2023 2:28 PM EDT) Lacosamide Level (JUNE) 4.5 1.0 - 10.0 mcg/mL [facility] Comment: ADDITIONAL INFORMATION This test was developed and its performance characteristics determined by [facility] in a manner consistent with CLIA requirements. This test has not been cleared or approved by the U.S. Food and Drug Administration. Test Performed by: [facility] - [address] [address] Global Safety Officer: Lorri Kate Ph.D.; CLIA# [id number] Blood 09/04/2023 2:28 PM EDT 09/05/2023 8:40 AM EDT Narrative Resulting Agency Comment Spec In Lab Satya Wills MD LAB SEND OUT ORDERAB LES [facility] [place] [address] * Scan, Peripheral Blood (09/04/2023 2:28 PM EDT) Pathologist [facility] Plat estimate Normal [facility] RBC Morphology Abnormal [facility] Macrocyte 6-10 /HPF [facility] Blood 09/04/2023 2:28 PM EDT 09/04/2023 2:55 PM EDT Narrative Resulting Agency Comment Spec In Lab Satya Wills MD HEMATOLOGY ORDERABLE S [facility] [place] [address] * (ABNORMAL) Hemogram (09/04/2023 2:28 PM EDT) [facility] White Blood Cell 4.7 4.0 - 9.5 x10(3)/mc L [facility] Red Blood Cell 3.68(L) 4.00 - 5.21 x10(6)/mc L [facility] Hemoglobin 14.3 11.7 - 15.5 g/dL [facility] Hematocrit 40.4 35.7 - 45.8 % [facility] Mean Cell Volume 109.8(H) 82.6 - 94.4 fL [facility] Mean Cell Hemoglobin 38.9(H) 27.1 - 32.0 pg [facility] Mean Cell Hemoglobin Concentration 35.4(H) 31.7 - 35.0 g/dL [facility] Platelet 224 145 - 357 x10(3)/mc L [facility] RDW Standard Deviation 59.6(H) 37.0 - 46.0 fL [facility] RDW coefficient of variation 14.6(H) 11.5 - 14.1 % [facility] Mean Platelet Volume 8.6 7.6 - 12.9 fL [facility] NRBC% auto 0.0 % [facility] NRBC Absolute 0.000 0.000 - 0.000 x10(3)/ L [facility] Blood 09/04/2023 2:28 PM EDT 09/04/2023 2:55 PM EDT Narrative Resulting Agency Comment Spec In Lab Satya Wills MD HEMATOLOGY ORDERABLE S Performing Organization Address City/State/[facility] Co de Phone Number [facility] [place] [address] * Differential, Automated (09/04/2023 2:28 PM EDT) Neutrophil % 44.2 % [facility] Neutrophil Absolute 2.07 1.70 - 6.10 x10(3)/[facility] Lymph % 45.5 % [facility] Lymphocytes Abs 2.1 0.9 - 3.2 x10(3)/[facility] Monocyte % 6.2 % [facility] Monocyte Abs 0.3 0.3 - 0.9 x10(3)/[facility] Eos % 2.6 % [facility] Eosinophils Abs 0.1 0.0 - 0.4 x10(3)/[facility] Basophil % 1.3 % [facility] Baso Absolute 0.1 0.0 - 0.1 x10(3)/[facility] Immature Gran % 0.20 % [facility] Comment: Immature granulocytes(IG's)percentage and absolute count will include metamyelocytes, myelocytes, and promyelocytes. Blood smears from CBCs yielding IG's will be scanned manually for concordance. If this scan disagrees with the automated IG or if promyelocytes are noted, a manual differential will be performed. Immature Gran Absolute 0.01 0.00 - 0.04 x10(3)/mcL [facility] Blood 09/04/2023 2:28 PM EDT 09/04/2023 2:55 PM EDT Narrative Resulting Agency Comment Spec In Lab Satya Wills MD HEMATOLOGY ORDERABLE S Performing Organization Address [facility] Co de Phone Number [facility] [place] [address] * (ABNORMAL) Hepatic Function Panel (09/04/2023 2:28 PM EDT) Pathologist [facility] Protein, Total 7.6 6.1 - 8.0 g/dL [facility] Albumin 4.1 3.2 - 5.2 g/dL [facility] Aspartate Aminotransferase 36(H) 0 - 30 unit/L [facility] Alanine Aminotransferase 17 0 - 30 unit/L [facility] Alkaline Phosphatase 78 35 - 105 unit/L [facility] Bilirubin, Total 0.5 0.2 - 1.3 mg/dL [facility] Bilirubin, Direct 0.1 0.0 - 0.3 mg/dL [facility] Blood 09/04/2023 2:28 PM EDT 09/04/2023 2:55 PM EDT Narrative Resulting Agency Comment Spec In Lab Satya Wills MD CHEMISTRY ORDERABLES Performing Organization Address [facility] Co de Phone Number [facility] [place] [address] * Basic Metabolic Panel (non-fasting) (09/04/2023 2:28 PM EDT) Pathologist [facility] Glucose 88 65 - 199 mg/dL [facility] Comment:Diabetes: >=200 mg/d L plus symptoms Blood Urea Nitrogen 9 8 - 18 mg/dL [facility] Creatinine 0.97 0.70 - 1.20 mg/dL [facility] Sodium 139 135 - 145 mmol/L [facility] Potassium 3.9 3.5 - 5.0 mmol/L [facility] Comment: Please note: ??Patients with WBC >100,000 may have falsely elevated Potassium levels. ??For accurate Potassium quantification in these patients send serum separator tube (gold top) for subsequent determinations. ??Contact the Clinical Chemistry Laboratory if there are any questions. Chloride 101 98 - 107 mmol/L [facility] Carbon Dioxide 25 22 - 31 mmol/L [facility] Anion Gap 13 5 - 15 mmol/L [facility] Calcium 9.5 8.5 - 10.5 mg/dL [facility] Est Glomerular Filtration Rate 64 >=60 mL/min/1. 73 m?? [facility] Comment: This patient's estimated GFR was calculated using the 2020 CKD-EPI equation. The estimated GFR can vary from the measured GFR by up to 30% in the absence of rapidly changing kidney function. Assessment of the estimated GFR is not appropriate when creatinine concentrations are rapidly changing. For clinical situations in which a more precise estimate of GFR is necessary, consider alternative methods of GFR estimation such as a 24-hour urine creatinine clearance. Assignment of CKD stage 1-5 for patients with an eGFR near the transition point between stages may be based on clinical assessment of muscle mass and symptoms in addition to eGFR. Blood 09/04/2023 2:28 PM EDT 09/04/2023 2:55 PM EDT Narrative Resulting Agency Comment Spec In Lab Satya Wills MD CHEMISTRY ORDERABLES [facility] [place] [address] * COLONOSCOPY (04/21/2020 12:22 PM EST) [facility] Signature COLONOSCOPY [facility] Endoscopy Procedure Date: 04/21/2020 12:22 PM ? Patient Name: Josiane Pacheco ? Date of : 1955 ? Age: 64 ? Order #: [id number] ? Instrument Name: [id number] ? Procedure: ? Colonoscopy Indications: ? High risk colon cancer surveillance: ? Personal history of colonic polyps Providers: ? Antony Cordova MD, Juan Calloway ? Kait Blanchard, ? Wastewater Analyst Lab Analyst Referring : ?Sarah Alejo Medicines: ? Monitored Anesthesia Care Complications: ? No immediate complications. Procedure: ? Pre-Anesthesia Assessment: ? - Prior to the procedure, a History ? and Physical was performed, and ? patient medications and allergies ? were reviewed. The patient is ? competent. The risks and benefits of ? the procedure and the sedation ? options and risks were discussed with ? the patient. All questions were ? answered and informed consent was ? obtained. Patient identification and ? proposed procedure were verified by ? the physician in the pre-procedure ? area. Mental Status Examination: ? alert and oriented. Airway ? Examination: normal oropharyngeal ? airway and neck mobility. Respiratory ? Examination: clear to auscultation. ? CV Examination: normal. Prophylactic ? Antibiotics: The patient does not ? require prophylactic antibiotics. ? Prior Anticoagulants: The patient has ? taken no previous anticoagulant or ? antiplatelet agents. ASA Grade ? Assessment: III - A patient with ? severe systemic disease. After ? reviewing the risks and benefits, the ? patient was deemed in satisfactory ? condition to undergo the procedure. ? The anesthesia plan was to use ? monitored anesthesia care (MAC). ? Immediately prior to administration ? of medications, the patient was ? re-assessed for adequacy to receive ? sedatives. The heart rate, ? respiratory rate, oxygen saturations, ? blood pressure, adequacy of pulmonary ? ventilation, and response to care ? were monitored throughout the ? procedure. The physical status of the ? patient was re-assessed after the ? procedure. ? The procedure, indications, benefits, ? risks and alternatives were explained ? to the patient. Specifically ? discussed were potential ? complications including, but not ? limited to, bleeding, perforation, ? infection, missing a cancer, and ? adverse medication reactions. The ? patient was placed in the left ? lateral decubitus position, and a ? digital rectal exam was performed. ? The Colonoscope was inserted in the ? anus and under direct visualization, ? advanced to the cecum, identified by ? appendiceal orifice and ileocecal ? valve. Careful inspection was made as ? the colonoscope was withdrawn. The ? colonoscopy was performed without ? difficulty. The patient tolerated the ? procedure well. The quality of the ? bowel preparation was good. ? Findings: ? The perianal and digital rectal examinations were ? normal. ? Six sessile polyps were found in the descending ? colon, transverse colon and ascending colon. The ? polyps were 3-5 mm in size. These polyps were removed ? with a cold snare. Resection and retrieval were ? complete. Withdrawal time 17 minutes. ? Moderate Sedation: ? Not applicable - See Anesthesia documentation Impression: ?- Six 3-5 mm polyps in the descending ? colon, in the transverse colon and in ? the ascending colon, removed with a ? cold snare. Resected and retrieved. Recommendation: ?- Await pathology results to ? determine surveillance interval ? Attending Participation: ? I was present and participated during the entire ? procedure, including non-baldwin portions. ? ___ Antony Cordova MD 04/21/2020 1:30:21 PM This report has been signed electronically. Number of Addenda: 0 Note Initiated On: 04/21/2020 12:22 PM PROVATION 04/21/2020 12:2 2 PM EST Sarah Alejo APRN GENERAL SURGICAL ORD ERABLES PROVATION * Syphilis Antibody, IgG (12/14/2015 12:18 PM EDT) Syphilis IgG Neg Neg [facility] Blood specimen (specimen) 12/14/2015 12:18 PM EDT 12/15/2015 8:01 AM EDT Narrative Resulting Agency Comment Spec In Lab Drew Heaton MD CHEMISTRY ORDERABLES Performing Organization Address City/[facility] Co de Phone Number [facility] [place] [address] * Hepatitis C Antibody (07/15/2014 12:14 PM EDT) Hepatitis C Antibody Negative Negative [facility] Blood specimen (specimen) 07/15/2014 12:14 PM EDT 07/15/2014 12:21 PM EDT Narrative Resulting Agency Comment Spec In Lab Drew Heaton MD CHEMISTRY ORDERABLES Performing Organization Address [facility] de Phone Number CHIARA CLIFFORD * Hepatitis B Surface Antigen (07/15/2014 12:14 PM EDT) Hepatitis B Surface Antigen Negative Negative CHIARA CLIFFORD Blood specimen (specimen) 07/15/2014 12:14 PM EDT 07/15/2014 12:21 PM EDT Narrative Resulting Agency Comment Spec In Lab Drew Heaton MD CHEMISTRY ORDERABLES Performing Organization Address [facility] Co de Phone Number CHIARA CLIFFORD * Mammo digital bilateral Screening with CAD (09/11/2013 1:35 PM EDT) Anatomical Region Laterality Modality Breast Bilateral Mammography 09/11/2013 1:35 PM EDT Narrative 09/12/2013 11:18 AM EDT Reason for Exam: Screening ?? Technique: Craniocaudal (CC) and Medio-lateral Oblique (MLO) views of both breasts obtained with direct digital capture. ?? The exam was evaluated by CAD version 8.3.17. ?? Findings: ?? This is a negative mammogram (ACR Category 1). There is a stable fibroglandular pattern without significant change from prior studies. There is no mammographic evidence of cancer. The breasts are predominately fatty. ?? CONCLUSION: This is a NEGATIVE mammogram (ACR Category 1). ?? Routine screening mammography is recommended with the frequency dependent upon the patients age and breast cancer risk factors. ?? A letter has been sent to this patient by the breast imaging center. Procedure Note Ramesh Alvarado MD - 09/12/2013 Reason for Exam: Screening Technique: Craniocaudal (CC) and Medio-lateral Oblique (MLO) views of both breasts obtained with direct digital capture. The exam was evaluated by CAD version 8.3.17. Findings: This is a negative mammogram (ACR Category 1). There is a stablefibroglandular pattern without significant change from prior studies. There is no mammographic evidence of cancer. The breasts are predominately fatty. CONCLUSION: This is a NEGATIVE mammogram (ACR Category 1). Routine screening mammography is recommended with the frequency dependentupon the patients age and breast cancer risk factors. A letter has been sent to this patient by the breast imaging center. Drew Heaton MD IMG MAMMO ORDERABLES * GC/Chlam (03/04/2013 4:00 PM EST) Pathologist [facility] GC Gene Amp Negative Negative CERNER MILLENNIUM Comment: The only FDA approved specimen types for this assay are cervix, vagina, urethra and urine. ??The sensitivity and specificity of the assay for other specimen types has not been determined. GC Source Cervical CERNER MILLENNIUM Chlamydia Gene Amp Negative Negative CERNER MILLENNIUM Comment: The only FDA approved specimen types for this assay are cervix, vagina, urethra and urine. ??The sensitivity and specificity of the assay for other specimen types has not been determined. Chlm Source Cervical CERNER MILLENNIUM Specimen of unknown material (specimen) 03/04/2013 4:00 PM EST 03/04/2013 4:00 PM EST Narrative Resulting Agency Comment Spec In Lab Serena Rangel MD MICROBIOLOGY - GENE [facility] ORDERABLES [facility] * PHOTOGRAPHIC REPRODUCTION TECHNICIAN Molecular Genetics Report (03/04/2013 2:15 PM EST) Pathologist [facility] PHOTOGRAPHIC REPRODUCTION TECHNICIAN Molecular Genetics Report ? [facility] ? Provider: ?? LICHA ORELLANA ?? Pt. Name: ?? JOSIANE PACHECO ? Acc #: ?[id number] ?Pt. ? Col Date: ?? 03/04/2013 ?/Sex: ?1955,(57 years),Female ? Rec Date: ?? 03/04/2013 ?LOC: ?5L ? MOLECULAR GENETIC STUDIES ? ---REPORT OF DNA ANALYSIS--- ? Rashad Wilton?? HPV test ? NEGATIVE for high-risk HPV *. ? It is recommended that patients with ASCUS cytology and a negative test for ? high-risk HPV undergo further evaluation according to current practice ? guidelines. ??* Testing negative for high risk HPV means that the specimen ? is negative for the following 14 types tested: ??types 16, 18, 31, 33, 35, ? 39, 45, 51, 52, 56, 58, 59, 66, and 68. ??The test is not intended to detect ? low risk HPV types. ? Specimen: HPV Testing - Cytology Liquid Based Prep ? Reviewed by: ??Elizabeth Pro ? A ? NANY Cerv-Endocerv LBP ? B ? HPVDO Do HPV Testing ? ``` ? Verified date: ??03/06/13 ??ABH ? Verified by: ?Lab Review, Molecular Genetics ? (Electronic Signature) CHIARA CLIFFORD 03/04/2013 2:15 PM EST Licha Orellana CLIENT TECHNICAL PROFESSIONAL PATHOLOGY/CYTOLOGY ORDERABLES CHIARA SEBASTIANIUM * Industrial Cafeteria Manager Cytology Final Report (03/04/2013 2:15 PM EST) Industrial Cafeteria Manager Cytology Final Report ? [facility] ? Provider: ?? LICHA ORELLANA ?? Pt. Name: ?? JOSIANE PACHECO ? Acc #: ?[id number] ?Pt. ? Col Date: ?? 03/04/2013 ?/Sex: ?1955,(57 years),Female ? Rec Date: ?? 03/04/2013 ?LOC: ?5L ? CYTOPATHOLOGY: ??PHOTOGRAPHIC REPRODUCTION TECHNICIAN ? ---Adequacy--- ? Specimen submitted is satisfactory for evaluation. ??No endocervical ? component present . ? Note: ??Initial cross-sectional studies suggested that JACQUELINE cells were more ? commonly identified when an endocervical component was present, however ? subsequent longitudinal studies fail to show that women lacking an ? endocervical component in a Pap smear are at increased risk for JACQUELINE. ? ---Cytopathologic Diagnosis--- ? NORMAL ? Negative for Intraepithelial Lesion or Malignancy (NILM). ? 03/07/13 ?? Screened by: ??SLA ? 03/07/13 ?? Verified by: ??JOHNIE Multani(ASCP), Brittanie Santiago ? Floral Design Teacher ? ---Comment--- ? Predominance of coccobacilli consistent with shift in vaginal shine. ? Please also see concurrent HPV test result. ? ---Clinical Information--- ? HPV Option: ? Concurrent HPV ? Preparation: ?Liquid Based Pap ? Specimen Source: ?Cervical Endocervical LBP ? LMP: ?molasses preparer ? Hormones?: ?No ? Hysterectomy?: ?No ?: ?No ?: ?No ? I.U.D.?: ?No ? Pelvic Radiation: ? No ? Prior PHOTOGRAPHIC REPRODUCTION TECHNICIAN Therapy?: ? No ? Hist Abnl Pap/Biopsy?: ??Yes, history of previous abnormal Pap ? Hist of HPV Vaccine?: ?? No ? Hist of Smoking?: ? Yes ? Hist of LUANNE exposure?: ??No ? Clinical Data, Significant Therapy and Clinical Impression: ?_ ? [facility] ? Provider: ?? LICHA ORELLANA ?? Pt. Name: ?? JOSIANE PACHECO ? Acc #: ?[id number] ?Pt. ? Col Date: ?? 03/04/2013 ?/Sex: ?1955,(57 years),Female ? Rec Date: ?? 03/04/2013 ?LOC: ?5L ? CYTOPATHOLOGY: ??PHOTOGRAPHIC REPRODUCTION TECHNICIAN ? This Pap Test has been evaluated with the assistance of the ThinPrep Pap ? Test Imaging System. ? Note: ? The Pap test is a screening test for cervical cancer with an inherent ? false-negative rate dependent upon several variables. ??For further ? information please contact the [facility]. ? Reference: ??Geetha BOLAÑOS. ??Publications Editor of Pap Smear Results. ??In: ? Keenan BS, James HH, ed. ??The Pap Smear. ??[place]: ??Shaw, 2002: ? 71-77. CHIARA ARAYAENNIUM 03/04/2013 2:15 PM EST Licha Orellana CLIENT TECHNICAL PROFESSIONAL PATHOLOGY/CYTOLOGY ORDERABLES CHIARA SEBASTIANIUM from Last 3 Months or Most Recently Relevant to Health Maintenance Advance Directives * Full Code (Latest Code Status on File) Date Activated Date Inactivated Comments 01/08/2016 9:11 AM 01/08/2016 1:17 PM Question Answer Comments Does patient have capacity to make decision: Yes Care Teams Livestock Auctioneer Relationship Specialty Start Date End Date Sarah Alejo APRN [address] [place] [address] PCP - General Internal Medicine 11/06/19
--- OUTSIDE RECORDS SUMMARY | 2023-12-04 16:28 | XMS_ITS | Encounter Summary ---
Author Organization [facility] Address [facility] [place] [address] Care Team Providers Care Deputy Director Of Nursing Name Role Phone Sarah Alejo EZRA Primary Care Provider [phone] Reason for Visit * Reason Onset Date Comments Medication Refill 10/02/2023 Encounter Details Date Type Department Care Team (Late st Contact Info) Description 10/02/2023 [place] [address] Satya Wills MD [facility] [place] [address] Partial epilepsy with impairment of consciousness, intractable; Anxiety disorder, unspecified type Social History Tobacco Use Types Packs/Day Years Used Date Smoking Tobacco: Former Cigarettes Q uit: 08/27/1987 Smokeless Tobacco: Never Comments:occasionally Alcohol Use Standard Drinks/Week Comments Not [...] place to sleep or slept in a retirement (including now)? No 10/24/2022 Education Answer Date Recorded What is the highest level of school you have completed or the highest degree you have received? Some college, no degree 10/24/2022 Sex and Gender Information Value Date Recorded Sex Assigned at Not on file Gender Identity Not on file Sexual Orientation Not on file documented as of this encounter Miscellaneous Notes * Telephone Encounter - Kaylan Verde CMA - 10/02/2023 12:41 PM EDT Prescription Renewal Request Name: Josiane Pacheco : 1955 Prescription(s) Requested: Requested Prescriptions Pending Prescriptions Disp Refills hydrOXYzine (Atarax) 10 mg/5 mL Solution 450 mL 5 Sig: Take 5 mLs by mouth 3 times daily. Date of Encounter last in This Dept (If need an appointment send to secretaries to schedule): 09/04/2023 with Satya Wills MD Next Encounter in This Dept: 03/06/2024 with Satya Wills MD Date of Last Refill (for each medication): hydrOXYzine (Atarax) 10 mg/5 mL Solution Take 5 mLs by mouth 3 times daily. Dispense: 473 mL, Refills: 5 ordered 03/02/2023 Status of request: Pended Allergies Allergen Reactions Lamictal [Lamotrigine] Per patient very dizzy, double vision, and hard to keep walking. Topiramate Itching Kaylan Verde CMA 10/02/23 12:42 PM * Telephone Encounter - Sheri Candelario - 10/02/2023 8:16 AM EDT Call Center / Manager Chemistry Message Prescription Refill Request Clinical [place] message Provider patient sees in Clinic: Dr. Wills Caller and relationship (if other than patient-full name): Josiane Pacheco Call back Number: [phone] Ok to leave a message: Yes. Any issues needing to be addressed prior to medication refill? (ex: dose increase, not at pharmacy): No. Name of Med: hydrOXYzine (Atarax) solution Strength of Pills: 10 mg/5 mL Dosing Directions: as prescribed. How Patient is Currently Taking Medication: Take 5 mLs by mouth 3 times daily. 30 or 90 Day Supply: 90 day supply Pharmacy: [id number] Last Appointment: 09/04/2023 Next Appointment: 03/06/2024 Is Patient out of Medication?: YES. Thank you. 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
--- OUTSIDE RECORDS SUMMARY | 2023-12-04 16:28 | XMS_ITS | Encounter Summary ---
Author Organization [facility] Address [facility] [place] [address] Care Team Providers Care Parasitologist Name Role Phone Sarah Alejo EZRA Primary Care Provider [phone] Reason for Visit * Reason Onset Date Comments Medication Refill 10/02/2023 Encounter Details Date Type Department Care Team (Late st Contact Info) Description 10/02/2023 [place] [address] Satya Wills MD [facility] [place] [address] Social History Tobacco Use Types Packs/Day Years [...] place to sleep or slept in a residential (including now)? No 10/24/2022 Education Answer Date [...] Encounter - Kaylan Verde CMA - 10/02/2023 12:38 PM EDT Prescription Renewal Request Name: Josiane Pacheco : 1955 Prescription(s) Requested: Requested Prescriptions Pending Prescriptions Disp Refills meloxicam (Mobic) 7.5 mg tablet 180 tablet 1 Sig: Take 1 tablet by mouth 2 times daily as needed for Pain. Date of Encounter last in This Dept (If need an appointment send to secretaries to schedule): 09/04/2023 with Satya Wills MD Next Encounter in This Dept: 03/06/2024 with Satya Wills MD Date of Last Refill (for each medication): meloxicam (Mobic) 7.5 mg tablet Take 1 tablet by mouth 2 times daily as needed for Pain. Dispense: 60 tablet, Refills: 5 ordered 03/02/2023 Status of request: Pended Allergies Allergen Reactions Lamictal [Lamotrigine] Per patient very dizzy, double vision, and hard to keep walking. Topiramate Itching Kaylan Verde CMA 10/02/23 12:38 PM * Telephone Encounter - Sheri Candelario - 10/02/2023 8:12 AM EDT Call Center / [employer] Message Prescription Refill Request Clinical [place] message Provider patient sees in Clinic: Dr. Wills Caller and relationship (if other than patient-full name): Josiane Pacheco Call back Number: [phone] Ok to leave a message: Yes Any issues needing to be addressed prior to medication refill? (ex: dose increase, not at pharmacy): No. Name of Med: meloxicam (Mobic) tablet Strength of Pills: 7.5 mg Dosing Directions: Take 1 tablet by mouth 2 times daily as needed for Pain. How Patient is Currently Taking Medication: as prescribed 30 or 90 Day Supply: 90 day supply Pharmacy: [id number] Last Appointment: 09/04/2023 Next Appointment: 03/06/2024 Is Patient out of Medication?: YES. Thank you. documented in this encounter Plan of Treatment Upcoming Encounters Date Type Department Care Team (Late st Contact Info) Description 03/06/2024 1:30 PM EST [place] [address] Satya Wills MD [facility] [place] [address] documented as of this encounter Visit Diagnoses Not on filedocumented in this encounter Care Teams Parasitologist Relationship Specialty Start Date End Date Sarah Alejo APRN [address] [place] [address] PCP - General Internal Medicine 11/06/19 documented as of this encounter
--- OUTSIDE RECORDS SUMMARY | 2023-12-04 16:28 | XMS_ITS | Encounter Summary ---
Author Organization [facility] [place] [address] Care Team Providers Care Endodontic Assistant Name Role Phone Sarah Alejo EZRA Primary Care Provider [phone] Reason for Visit * Auth/Cert (Routine) Specialty Diagnoses / Procedures Referred By Jin t Referred To Contact Diagnoses Peptic stricture of esophagus dysphagia with stricture; Repeat upper endoscopy PRN for retreatment Procedures PRO UPPER GI ENDOSCOPY, DIAGNOSTIC PRO UP GI ENDOSCOPY, DILATN W GUIDE PRO UP GI ENDOSCOPY, BALL DIL, 30MM PRO UPPER GI ENDOSCOPY, BIOPSY PRO UP GI ENDOSCOPY, REMV TUMOR, SNARE PRO ANES, UGI ENDOSCOPY NOS EGD, UPPER GI ENDOSCOPY (WRVU 2.09) Johan Ovalle MD [facility] [place] [address] [facility] Referral ID Status Reason Start Date Expiration Date Visits Re quested Visits Authorized [id number] 1 1 Encounter Details Date Type Department Care Team (Latest Contact Info) Description 09/28/2023 9:38 AM EDT - 09/28/2023 1:34 PM EDT Hospital En[place] [address] Johan Ovalle MD [facility] [place] [address] Discharge Disposition: Home Social History Tobacco Use Types Packs/Day Years [...] place to sleep or slept in a fdc (including now)? No 10/24/2022 Education Answer Date Recorded What is the highest level of school you have completed or the highest degree you have received? Some college, no degree 10/24/2022 Sex and Gender Information Value Date Recorded Sex Assigned at Not on file Gender Identity Not on file Sexual Orientation Not on file documented as of this encounter Last Filed Vital Signs Vital Sign Reading Time Taken Comments Blood Pressure 126/90 09/28/2023 12:50 PM EDT Pulse 68 09/28/2023 10:04 AM EDT Temperature - - Respiratory Rate 18 09/28/2023 12:50 PM EDT Oxygen Saturation 92% 09/28/2023 12:55 PM EDT Inhaled Oxygen Concentration - - Weight - - Height - - Body Mass Index - - documented in this encounter Discharge Instructions * Discharge Instructions* Marleny Bhatt LPN - 09/28/2023 12:17 PM EDT Esophageal Dilation: What to Expect at Home Your Recovery After you have esophageal dilation, you will be able to go home after your doctor or nurse checks to make sure you are not having any problems. This care sheet gives you a general idea about how long it will take for you to recover. But each person recovers at a different pace. Follow the steps below to get better as quickly as possible. How can you care for yourself at home? Activity Rest as much as you need to after you go home. You should be able to go back to your usual activities the day after the procedure. Diet Follow your doctor's directions for eating after the procedure. Clear Liquids Soft Diet Drink plenty of fluids (unless your doctor has told you not to). Do not drink alcohol. Medicines Your doctor will tell you if and when you can restart your medicines. He or she will also give you instructions about taking any new medicines. If you take aspirin or some other blood thinner, ask your doctor if and when to start taking it again. Make sure that you understand exactly what your doctor wants you to do. If you have a sore throat the day after the procedure, use an [id number]-[id number] spray to numb your throat. Sucking on throat lozenges and gargling with warm salt water may also help relieve your symptoms. Follow-up care is a baldwin part of your treatment and safety. Be sure to make and go to all appointments, and call your doctor if you are having problems. It's also a good idea to know your test resultsand keep a list of the medicines you take. Other instructions For your safety, do not drive or operate machinery until the day after your test. Do not sign legal documents or make major decisions until the day after your test. The anesthesia can make it hard for you to fully understand what you are agreeing to. Additional Information for Sedation Patients For patients who received sedation: You may have received medications before and/or during your procedure which effects your judgement and reaction time. Do not drive, operate machinery, drink alcoholic beverages or make important decisions for 24 hours. Be careful on stairs as you may be unsteady on your feet. Do not smoke if you are alone. IV site: Slight redness or tenderness is normal, you can use a warm compress if you would like. If tenderness and/or redness increase or if foul drainage occurs, please contact your Doctor. Please call [phone] before 8pm Mon-Fri with problems, questions or concerns. If you call after 8pm or on weekends, call the Hospital at [phone] and ask to speak to the Tool Repairer geospatial information scientist and the scalper operator will contact that person for you. When should you call for help? Call [phone] anytime you think you may need emergency care. For example, call if: You passed out (lost consciousness). You have trouble breathing. Your stools are maroon or very bloody. Call your doctor now or seek immediate medical care if: You have new or worse belly pain. You have a fever. You haveLI blood in your stools. You are sick to your stomach and cannot drink fluids. You cannot pass stools or gas. You have pain that does not get better after you take pain medicine. Watch closely for changes in your health, and be sure to contact your doctor if: Your throat still hurts after a day or two. You do not get better as expected. Where can you learn more? Visit our health information library at [email or web address] You can also view health information on [employer], your personal patient account. Log in or sign uptoday. Enter J014 in the search box to learn more about Esophageal Dilation: What to Expect at Home. Current as of: October 07, 2018Content Version: 12.4 ?? [id number] [employer]. Care instructions adapted under license by [facility]. If you have questions about a medical condition or this instruction, always ask your healthcare professional. [employer] disclaims any warranty or liability for your use of this information. documented in this encounter Medications at Time of Discharge Medication Sig Dispensed Refills Start Date End Date Cabenuva 600 mg/3 mL- 900 mg/3 mL IM injection Inject 6 mLs into the muscle Every 8 Weeks. 07/03/2023 lacosamide (Vimpat) 200 mg tabletIndications:Partial epilepsy with impairment of consciousness, intractable Take 1 tablet by mouth 2 times daily. 60 tablet 5 09/14/2023 cyanocobalamin, Vitamin B-12, (Vitamin B-12) 1,000 mcg tablet Take 1 tablet by mouth Daily at Noon. 01/12/2023 hydrOXYzine (Atarax) 10 mg/5 mL SolutionIndications:Partia l epilepsy with impairment of consciousness, intractable,Anxiety disorder, unspecified type Take 5 mLs by mouth 3 times daily. 473 mL 5 03/02/2023 10/02/2023 clonazePAM (KlonoPIN) 1 mg disintegrating tabletIndications:Partial epilepsy with impairment of consciousness, intractable,Anxiety disorder, unspecified type Take 1 tablet by mouth 2 times daily. 60 tablet 5 03/02/2023 10/02/2023 meloxicam (Mobic) 7.5 mg tablet Take 1 tablet by mouth 2 times daily as needed for Pain. 60 tablet 5 03/02/2023 10/02/2023 documented as of this encounter Progress Notes * Cherry Bell RN - 09/28/2023 1:09 PM EDT Patient alert and oriented, vital signs stable. Reviewed discharge instructions; patient and familyverbalized understanding. Copy of instruction sheet with contact numbers for questions/concerns. Pain assessment documented. Patient escorted out of department via wheelchair with family. * Linda Teague RN - 09/14/2023 3:51 PM EDT Left for a call back x1 Past Medical History: Cardiac History NA Diabetic History NA SARAH NA COPD/severe asthma NA Any concerns with the ability to lie flat with or without breathing difficulty Home Oxygen NA Psychological Anxiety, depression Co-morbidities partial epilepsy, Fissure in Ano, Gerd , colon polyps, Aids Dysphagia , H/O alcohol abuse, Renal cyst adenoma of colon Current height and weight see chat BMI > 40 [] IV Drug Abuse Alcohol drinks/week: Recommend IVCS or Anesthesia: MAC Review med instructions for procedure Anesthesia education If the patient is unable to self-consent, plan of action: Name of the person who can consent Phone number if person not present on the day of the procedure documented in this encounter H&P Notes * Marlyn Felipe MD - 09/28/2023 11:51 AM EDT Gastroenterology and Hepatology Pre-Procedure History and Physical Exam Procedure: EGD: Indication: benign esophageal stricture Patient Active Problem List Diagnosis Code Partial epilepsy with impairment of consciousness, intractable G40.219 HIV disease B20 Dyslipidemia E78.5 Migraine G43.909 Obesity E66.9 Depression, recurrent F33.9 Fissure in ano K60.2 Hemorrhoids K64.9 Gastro-esophageal reflux disease with esophagitis K21.00 ETOH abuse F10.10 Colon polyps K63.5 Elevated liver enzymes R74.8 Dermatitis L30.9 Pruritus L29.9 AIDS B20 Anxiety F41.9 Bacterial pneumonia J15.9 Dysphagia R13.10 Family estrangement Z63.5 Electrolyte depletion E87.8 Hiatal hernia K44.9 Herpes zoster B02.9 History of alcohol abuse F10.11 Hyperlipidemia E78.5 Nicotine dependence F17.200 Prolapsed external hemorrhoids K64.4 Renal cyst N28.1 Rosacea L71.9 Status post cholecystectomy Z90.49 Status post colonoscopy with polypectomy Z98.890 Subdural hematoma without coma S06.5XAA Tubular adenoma of colon D12.6 Vitamin D deficiency E55.9 Migraine with aura G43.109 EXAM: HEENT: Airway examined, oropharynx clear LUNGS: Clear to auscultation HEART: Regular rate and rhythm, normal S1, S2 ABDOMEN: Normal bowel sounds, soft, non tender, non distended, A/P Proceed with the planned endoscopic procedure. ASA 3 - Patient with moderate systemic disease with functional limitations Sedation Plan: anesthesia Risks and benefits of the procedure explained to the patient. Consent signed. documented in this encounter Plan of Treatment Upcoming Encounters Date Type Department Care Team (Late st Contact Info) Description 03/06/2024 1:30 PM EST [place] [id number] Satya Wills MD [facility] [place] [address] documented as of this encounter Procedures Procedure Name Priority Date/Time Associated Diagnosis Comments Up Gi Endoscopy, Dilatn W Guide (66241) 09/28/2023 11:50 AM EDT Peptic stricture of esophagus Upper GI Endoscopy, Diagnostic ([id number]) 09/28/2023 11:50 AM EDT Peptic stricture of esophagus UPPER GI ENDOSCOPY Routine 09/28/2023 11 :36 AM EDT documented in this encounter Results * UPPER GI ENDOSCOPY (09/28/2023 11:36 AM EDT) [facility] Signature UPPER GI ENDOSCOPY [facility] Endoscopy Procedure Date: 09/28/2023 11:36 AM ? Patient Name: Josiane Pacheco ? Date of : 1955 ? Age: 68 ? Order #: [id number] ? Instrument Name: [id number] ? Procedure: ? Upper GI endoscopy Indications: ? Dysphagia, dilation of recurrent ? esophageal strictures Providers: ? Johan Ovalle MD, Emerita ? Willy Matthews Autumn ? Marlyn Goodrich MD: ?Sarah Alejo Medicines: ? Monitored Anesthesia Care [...] were traversed with tightest ? at the Jct with mild resistance. A guidewire was [...] 09/28/2023 11:3 6 AM EDT Sarah Alejo APRN GENERAL SURGICAL ORD ERABLES Performing Organization Address City/State/[facility] Co de Phone Number [employer] documented in this encounter Visit Diagnoses Not on filedocumented in this encounter Administered Medications Inactive Administered Medications - up to 3 most recent administrations Medication Order MAR Action Action Date Dose Rate Site lactated ringers infusion 100 mL/hr, Intravenous, CONTINUOUS, Starting on Terra 09/28/23 at 1015, Until Terra 09/28/23 at 1309, Endoscopy (Day of Procedure) Restarted 09/28/2023 11:49 AM EDT New Bag 09/28/2023 10:21 AM EDT 100 mL/hr 100 mL/hr documented in this encounter Active and Recently Administered Medications Times are shown in EDT. Continuous Medication Order 09/26/2023 09/27/2023 09/28/2023 lactated ringers infusion (CANCELED) 100 mL/hr, Intravenous, CONTINUOUS, Starting on Terra 09/28/23 at 1015, Until Terra 09/28/23 at 1309, Endoscopy (Day of Procedure) 1021 (New Bag - Prov ider: Wendy Miranda RN)1148 (Paused - Provider: Deepti Gordon CRNA - Comment: Switch to gravity)1149 (Restarted - Provider: Deepti Gordon CRNA)1212 (Stopped - Provider: Deepti Gordon CRNA) documented in this encounter Care Teams Endodontic Assistant Relationship Specialty Start Date End Date Sarah Alejo APRN [address] [place] [address] PCP - General Internal Medicine 11/06/19 documented as of this encounter
--- OUTSIDE RECORDS SUMMARY | 2023-12-04 16:28 | XMS_ITS | Encounter Summary ---
Author Organization [facility] [place] [address] Care Team Providers Care Journalism Professor Name Role Phone Sarah Alejo EZRA Primary Care Provider [phone] Reason for Visit * Auth/Cert (Routine) Specialty Diagnoses / Procedures Referred By Jin hernandez Referred To Contact Diagnoses Peptic stricture of esophagus dysphagia with stricture; Repeat upper endoscopy PRN for retreatment Procedures PRO UPPER GI ENDOSCOPY, DIAGNOSTIC PRO UP GI ENDOSCOPY, DILATN W GUIDE PRO UP GI ENDOSCOPY, BALL DIL, 30MM PRO UPPER GI ENDOSCOPY, BIOPSY PRO UP GI ENDOSCOPY, REMV TUMOR, SNARE PRO ANES, UGI ENDOSCOPY NOS EGD, UPPER GI ENDOSCOPY (WRVU 2.09) Johan Ovalle MD [facility] [place] [address] [facility] Referral ID Status Reason Start Date Expiration Date Visits Re quested Visits Authorized [id number] 1 1 Encounter Details Date Type Department Care Team (Late st Contact Info) Description 09/28/2023 11:48 AM EDT Anesthesia Event [place] [address] Ruben Gregory MD [facility] [place] [address] Evan Trammell MD [facility] [place] [address] Anesthesia Record Procedure Summary Procedure Name Responsible Anesthesiologist Anesthesia Start Time Anesthesia Stop Time EGD, UPPER GI ENDOSCOPY (WRVU 2.09) (Trunk) Ruben Gregory MD 09/28/23 1148 09/28/23 1216 Events Date Time Event Comment 09/28/2023 1111 1148 AN Verify 1148 Start 1148 An Start Data 1148 Break/Relief In I assumed ca re for Break Relief before which we: 1. Identified the patient 2. Identified the responsible provider(s) 3. Reviewed the pertinent medical history 4. Discussed the surgical plan and course 5. Reviewed intra-op anesthesia management and issues during anesthesia 6. Set expectations for the relief (and/or post-procedure) period 7. Allowed opportunity for questions and acknowledgement of understanding Kareem Simon CRNA 1153 An Induction 1153 Anesthesia Ready 1212 an stop data 1216 Recovery or ICU Handoff Lida ent care was transferred to the destination unit staff after review of the patient's medical history, current anesthetic/surgical status and plan, according to the Provider Handoff Checklist. 1216 Stop Meds Name Total lidocaine IV 100 mg propofoL 140 mg propofol INF 248.88 mg dexmedeTOMIDine 4 mcg/mL 8 mcg lactated ringers infusion 400 mL * Agents Name O2 * Blood No blood administrations on file. Lines, Drains, and Airways Type Details Placement Removal PIV 09/28/23; 1020; [id number]-ght-rhjsxa catheter system; 20 gauge; median cubital vein (antecubital fossa), left; US Not Used; Wendy Valenzuela RN; distraction; 1; cephalic vein (lateral side of arm), right; 09/28/23; 1257 09/28/23 1020 by Wendy Miranda RN 09/28/23 1257 by Cherry Bell RN documented in this encounter Social History Tobacco Use Types Packs/Day Years [...] place to sleep or slept in a penitentiary (including now)? No 10/24/2022 Education Answer Date Recorded What is the highest level of school you have completed or the highest degree you have received? Some college, no degree 10/24/2022 Sex and Gender Information Value Date Recorded Sex Assigned at Not on file Gender Identity Not on file Sexual Orientation Not on file documented as of this encounter OR Notes * Anesthesia Postprocedure Evaluation - Ruben Gregory MD - 09/28/2023 7:29 PM EDT Department of Anesthesiology Post-procedure Note Patient: Josiane Pacheco Procedure Summary Date: 09/28/23 Room / Location: [facility] ENDO 2 / [facility]OSCOPY Anesthesia Start: 1148 Anesthesia Stop: 1216 Procedures: EGD, UPPER GI ENDOSCOPY (WRVU 2.09) (Trunk) EGD-ESOPHOGEAL DILATATION OVER GUIDE WIRE (WRVU 2.91) Diagnosis: Peptic stricture of esophagus (dysphagia with stricture; Repeat upper endoscopy PRN for retreatment) Surgeons: Johan Ovalle MD Responsible Provider: Ruben Gregory MD Anesthesia Type: MAC ASA Status: 3 All Anesthesia Providers: Anesthesiologist: Ruben Gregory MD WAX PATTERN REPAIRER: Deepti Gordon CRNA Vitals Value Taken Time BP 126/90 09/28/23 1250 Temp Pulse Resp 18 09/28/23 1250 SpO2 92 % 09/28/23 1255 Pain Level 0 08/01/24 1255 Patient Location: PACU/[facility] Level of Consciousness: Conscious but Sleepy Pain Management: Satisfactory Analgesia PONV: None Cardiovascular Status: At Baseline Respiratory Status: At Baseline Postoperative Fluid Status: Intravascular EUvolemia Possible Anesthetic Complications: NONE apparent at time of evaluation Final Primary Anesthesia Type: MAC (The anesthetic type performed was the same as planned.) Comments: * Anesthesia Preprocedure Evaluation - Ruben Gregory MD - 09/28/2023 11:00 AM EDT Images from the original note were not included. Pre-Anesthesia Evaluation for: Josiane Pacheco a 68 y.o. female. Procedure(s): EGD, [facility] Patient Active Problem List Diagnosis Date Noted ??? HIV disease 05/28/2010 ??? AIDS 09/08/2020 ??? Anxiety 09/08/2020 ??? Bacterial pneumonia 09/08/2020 ??? Dysphagia 09/08/2020 ??? Family estrangement 09/08/2020 ??? Electrolyte depletion 09/08/2020 ??? Herpes zoster 09/08/2020 ??? History of alcohol abuse 09/08/2020 ??? Prolapsed external hemorrhoids 09/08/2020 ??? Renal cyst 09/08/2020 ??? Status post cholecystectomy 09/08/2020 ??? Status post colonoscopy with polypectomy 09/08/2020 ??? Subdural hematoma without coma 09/08/2020 ??? Vitamin D deficiency 09/08/2020 ??? Migraine with aura 09/08/2020 ??? Dermatitis 03/07/2017 ??? Pruritus 03/07/2017 ??? ETOH abuse 04/11/2016 ??? Colon polyps 04/11/2016 ??? Elevated liver enzymes 04/11/2016 ??? Hiatal hernia 10/16/2015 ??? Gastro-esophageal reflux disease with esophagitis 06/30/2015 ??? Nicotine dependence 10/15/2013 ??? Fissure in ano 07/12/2013 ??? Hemorrhoids 07/12/2013 ??? Rosacea 07/17/2012 ??? Hyperlipidemia 02/10/2012 ??? Migraine 04/25/2011 ??? Obesity 04/25/2011 ??? Depression, recurrent 04/25/2011 ??? Dyslipidemia 05/28/2010 ??? Partial epilepsy with impairment of consciousness, intractable 05/18/2010 ??? Tubular adenoma of colon 05/08/2010 Past Medical History: Diagnosis Date ??? HIV disease 05/28/2010 Past Surgical History: Procedure Laterality Date ??? PRO COLONOSCOPY, DIAGNOSTIC N/A 04/21/2020 COLONOSCOPY, DIAGNOSTIC performed by Antony Cordova MD at [facility] ENDOSCOPY ??? PRO ESOPHAGOSCOPY RIGID TRANSORAL BALLOON DILATION N/A 07/31/2015 ESOPHAGOSCOPY, TRANSORAL; WITH BALLOON DILATION <30MM performed by Ramesh Johnson MD at [facility] ENDOSCOPY ??? PRO ESOPHAGOSCOPY RIGID TRANSORAL BALLOON DILATION N/A 10/16/2015 ESOPHAGOSCOPY, TRANSORAL; WITH BALLOON DILATION <30MM performed by Ramesh Johnson MD at [facility] ENDOSCOPY ??? PRO UP GI ENDOSCOPY, BALL DIL, 30MM N/A 01/08/2016 EGD,WITH DILATION ESOPHAGUS WITH BALLOON,< 30 MM performed by Ramesh Johnson MD at [facility] ENDOSCOPY ??? PRO UP GI ENDOSCOPY, BALL DIL, 30MM N/A 01/14/2020 EGD,WITH DILATION ESOPHAGUS WITH BALLOON,< 30 MM (WRVU 2.77) performed by Johan Ovalle MD at [facility] ENDOSCOPY ??? PRO UP GI ENDOSCOPY, BALL DIL, 30MM N/A 02/05/2020 EGD,WITH DILATION ESOPHAGUS WITH BALLOON,< 30 MM (WRVU 2.77) performed by Johan Ovalle MD at [facility] ENDOSCOPY ??? PRO UP GI ENDOSCOPY, BALL DIL, 30MM N/A 04/21/2020 EGD,WITH DILATION ESOPHAGUS WITH BALLOON,< 30 MM (WRVU 2.77) performed by Antony Cordova [facility] ENDOSCOPY ??? PRO UP GI ENDOSCOPY, BALL DIL, 30MM N/A 11/22/2022 EGD,WITH DILATION ESOPHAGUS WITH BALLOON,< 30 MM (WRVU 2.67) performed by Antony Cordova [facility] ENDOSCOPY ??? PRO UP GI ENDOSCOPY, DILATN W GUIDE N/A 03/03/2023 EGD-ESOPHOGEAL DILATATION OVER GUIDE WIRE (WRVU 2.91) performed by Madan Sheth MD at [facility] ENDOSCOPY ??? PRO UPPER GI ENDOSCOPY, BIOPSY N/A 10/16/2015 UPPER GASTROINTESTINAL ENDOSCOPY,WITH BIOPSY SINGLE OR MULTIPLE performed by Ramesh Johnson MD at [facility] ENDOSCOPY ??? PRO UPPER GI ENDOSCOPY, BIOPSY N/A 01/08/2016 EGD WITH BIOPSY performed by Ramesh Johnson MD at [facility] ENDOSCOPY ??? PRO UPPER GI ENDOSCOPY, BIOPSY N/A 01/14/2020 EGD WITH BIOPSY (WRVU 2.49) performed by Johan Ovalle MD at [facility] ENDOSCOPY ??? PRO UPPER GI ENDOSCOPY, BIOPSY N/A 03/03/2023 EGD WITH BIOPSY (WRVU 2.39) performed by Madan Sheth MD at [facility] ENDOSCOPY ??? PRO UPPER GI ENDOSCOPY, DIAGNOSTIC N/A 06/23/2015 EGD, UPPER GI ENDOSCOPY performed by Dejan Sykes MD at [facility] ENDOSCOPY Social History Tobacco Use ??? Smoking status: Former Current packs/day: 0.00 Types: Cigarettes Quit date: 08/27/1987 Years since quittin.1 ??? Smokeless tobacco: Never ??? Tobacco comments: occasionally Substance Use Topics ??? Alcohol use: Not Currently Comment: occasionally Social History Substance and Sexual Activity Drug Use No Allergies Allergen Reactions ??? Lamictal [Lamotrigine] Per patient very dizzy, double vision, and hard to keep walking. ??? Topiramate Itching Medications: MAR and/or home medications have been reviewed. Physical Exam: Preprocedure Vitals Current as of 09/28/23 1100 BP: 138/73 Pulse: 68 Resp: SpO2: 96 Temp: Height: Weight: BMI: IBW: Last edited 09/28/23 1004 by AA Airway Assessment: Mallampati: II TM distance: >3 FB Neck ROM: limited Cardiovascular Assessment: Rhythm: regular Rate: normal Pulmonary Assessment: breath sounds clear to auscultation Dental Assessment: Misc Assessment: Last Filed Perioperative Cognitive Screening None Anesthesia Plan: ASA 3 MAC, with a(n) intravenous induction Addendum 09/28/2023 (MD Bri): 68yo for EGD. Mult comorbid. No intervl change. Prior natural airway procedures w/o issue Region - Other Informed Consent: Anesthetic plan and risks discussed with patient. Plan discussed with WAX PATTERN REPAIRER. Anesthesia Screening documented in this encounter Plan of Treatment Upcoming Encounters Date Type Department Care Team (Late st Contact Info) Description 03/06/2024 1:30 PM EST Office [place] [address] Satya Wills MD [facility] [place] [address] documented as of this encounter Visit Diagnoses Not on filedocumented in this encounter Administered Medications Inactive Administered Medications - up to 3 most recent administrations Medication Order MAR Action Action Date Dose Rate Site dexmedeTOMIDine (Precedex) (4 mcg/mL) bolus injection (Anesthsia) Intravenous, PRN, Starting on Terra 09/28/23 at 1156, Until Terra 09/28/23 at 1216, Anesthesia Intra-op, Routine Given 09/28/2023 11:56 AM EDT 8 mcg lactated ringers infusion 100 mL/hr, Intravenous, CONTINUOUS, Starting on Terra 09/28/23 at 1015, Until Terra 09/28/23 at 1309, Endoscopy (Day of Procedure) Restarted 09/28/2023 11:49 AM EDT New Bag 09/28/2023 10:21 AM EDT 100 mL/hr 100 mL/hr lidocaine (pf) (Xylocaine) (20 mg/mL) 2% injection syringe Intravenous, PRN, Starting on Terra 8 at 1153, Until Terra 8 at 1216, Anesthesia Intra-op, Routine Given 09/28/2023 11:53 AM EDT 100 mg propofoL (Diprivan) (10 mg/mL) infusion Intravenous, CONTINUOUS PRN, Starting on Terra 09/28/23 at 1153, Until Terra 09/28/23 at 1216, Anesthesia Intra-op, Routine Rate/Dose Change 09/28/2023 12:01 PM EDT 200 mcg/kg/min 97.92 mL/hr Rate/Dose Change 09/28/2023 11:58 AM EDT 150 mcg/kg/min 73 .44 mL/hr New Bag 09/28/2023 11:53 AM EDT 200 mcg/kg/min 97.92 mL /hr propofoL (Diprivan) 10 mg/mL bolus injection (Anesthesia) Intravenous, PRN, Starting on Terra 09/28/23 at 1153, Until Terra 09/28/23 at 1216, Anesthesia Intra-op Given 09/28/2023 11:56 AM EDT 70 mg Given 09/28/2023 11:53 AM EDT 70 mg documented in this encounter Care Teams Journalism Professor Relationship Specialty Start Date End Date Sarah Alejo APRN [address] [place] [address] PCP - General Internal Medicine 11/06/19 documented as of this encounter
--- OUTSIDE RECORDS SUMMARY | 2023-12-04 16:28 | XMS_ITS | Encounter Summary ---
Author Organization [facility] Address [facility] [place] [address] Care Team Providers Care Legal Recovery Specialist Name Role Phone Sarah Alejo EZRA Primary Care Provider [phone] Encounter Details Date Type Department Care Team (Late st Contact Info) Description 09/14/2023 Orders [place] [address] Satya Wills MD [facility] [place] [place] [address] Partial epilepsy with impairment of consciousness, intractable Social History Tobacco Use Types Packs/Day Years [...] place to sleep or slept in a [facility] (including now)? No 10/24/2022 Education Answer Date Recorded What is the highest level of school you have completed or the highest degree you have received? Some college, no degree 10/24/2022 Sex and Gender Information Value Date Recorded Sex Assigned at Not on file Gender Identity Not on file Sexual Orientation Not on file documented as of this encounter Progress Notes * Satya Wills MD - 09/14/2023 1:02 PM EDT Neurology attending I spoke to the patient. Lacosamide level is relatively low at 4.5. I recommended increasing the dose from 200, 100 mg to 200 mg twice daily. I am rewriting the prescription. Satya Wills MD Professor of neurology, [employer] at [facility] Department of Neurology, [address] Pager: [phone], #[phone] Email: [email or web address] documented in this encounter Plan of Treatment Upcoming Encounters Date Type Department Care Team (Late st Contact Info) Description 03/06/2024 1:30 PM EST [place] [address] Satya Wills MD [facility] [place] [address] documented as of this encounter Visit Diagnoses Diagnosis Partial epilepsy with impairment of consciousness, intractable Localization-related (focal) (partial) epilepsy and epileptic syndromes with complex partial seizures, with intractable epilepsy documented in this encounter Care Teams Legal Recovery Specialist Relationship Specialty Start Date End Date Sarah Alejo, EZRA [address] [place] [address] PCP - General Internal Medicine 11/06/19 documented as of this encounter
--- OUTSIDE RECORDS SUMMARY | 2023-12-04 16:28 | XMS_ITS | Encounter Summary ---
Author Organization [facility] [place] [address] Care Team Providers Care Integration Assistant Name Role Phone Sarah Alejo EZRA Primary Care Provider [phone] Reason for Visit * Auth/Cert (Routine) Specialty [...] GI ENDOSCOPY (WRVU 2.09) Johan Ovalle MD [facility] [place] [address] [facility] Referral ID Status Reason Start Date Expiration Date Visits Re quested Visits Authorized [id number] 1 1 Encounter Details Date Type Department Care Team (Late st Contact Info) Description 09/28/2023 11:00 AM EDT - 09/28/2023 11:30 AM EDT [place] [address] Johan Ovalle MD [facility] [place] [address] EGD, UPPER GI ENDOSCOPY (WRVU 2.09) Social History Tobacco Use Types Packs/Day Years [...] place to sleep or slept in a prison (including now)? No 10/24/2022 Education Answer Date [...] Sign Reading Time Taken Comments Blood Pressure 138/73 09/28/2023 10:04 AM EDT Pulse 68 09/28/2023 10:04 AM EDT Temperature - - Respiratory Rate - - Oxygen Saturation 96% 09/28/2023 10:04 AM EDT Inhaled Oxygen Concentration - - Weight [...] the day after the procedure, use an xkuv-alj-nitrmqz spray to numb your throat. Sucking on [...] occurs, please contact your Doctor. Please call [phone] before 8pm Mon-Fri with problems, questions or concerns. If you call after 8pm or on weekends, call the Hospital at [phone] and ask to speak to the Licensed Nuclear Control Room Operator completion supervisor and the paper cup machine operator will contact that person for you. When should you call for help? Call 1 anytime you think you may need emergency [...] more? Visit our health information library at [email or web address] You can also view health information on [employer], your personal patient account. Log in or sign uptoday. Enter J014 in the search box to learn more about Esophageal Dilation: What to Expect at Home. Current as of: October 07, 2018Content Version: 12.4 ?? 0160-3001 [employer]. Care instructions adapted under license by [facility]. If you have questions about a medical condition or this instruction, always ask your healthcare professional. [employer] disclaims any warranty or liability for your [...] 1:30 PM EST [place] [address] Satya Wills MD [facility] [place] [address] documented as of this encounter Procedures Procedure Name Priority Date/Time Associated Diagnosis Comments Up Gi Endoscopy, Dilatn W Guide (52854) 09/28/2023 11:50 AM EDT Peptic stricture of esophagus Upper GI Endoscopy, Diagnostic (41412) 09/28/2023 11:50 AM EDT Peptic stricture of esophagus UPPER GI ENDOSCOPY Routine 09/28/2023 11 :36 AM EDT documented in this encounter Results * UPPER GI ENDOSCOPY (09/28/2023 11:36 AM EDT) [facility] Signature UPPER GI ENDOSCOPY [facility] Endoscopy Procedure Date: 09/28/2023 11:36 AM ? Patient Name: Josiane Pacheco ? Date of : 1955 ? Age: 68 ? Order #: [id number] ? Instrument Name: [id number] ? Procedure: ? Upper GI endoscopy Indications: [...] Alejo APRN GENERAL SURGICAL ORD ERABLES [employer] documented in this encounter Visit Diagnoses Diagnosis Peptic stricture of esophagus Stricture and stenosis of esophagus documented in this encounter Administered Medications Inactive Administered [...] CRNA) documented in this encounter Care Teams Integration Assistant Relationship Specialty Start Date End Date Sarah Alejo APRN [address] [place] [address] PCP - General Internal Medicine 11/06/19 documented as of this encounter
--- OUTSIDE RECORDS SUMMARY | 2023-12-04 16:28 | XMS_ITS | Encounter Summary ---
Author Organization [facility] Address [facility] [place] [address] Care Team Providers Care Certified Physician Assistant Name Role Phone Sarah Alejo EZRA Primary Care Provider [phone] Reason for Visit * Reason Onset Date Comments Medication Refill 10/02/2023 Encounter Details Date Type Department Care Team (Late st Contact Info) Description 10/02/2023 [place] [address] Satya Wills MD [facility] [place] [address] Partial epilepsy with impairment of consciousness, intractable; [...] encounter Miscellaneous Notes * Telephone Encounter - Alicia Velez RN - 10/02/2023 9:23 AM EDT Prescription Renewal Request Name: Josiane Pacheco : 1955 Prescription(s) Requested: Requested Prescriptions Pending Prescriptions Disp Refills clonazePAM (KlonoPIN) 1 mg disintegrating tablet 60 tablet 5 Sig: Take 1 tablet by mouth 2 times daily. Date of Last Encounter: 09/04/23 She had a temporal lobectomy for refractory epilepsy but from reliable descriptions she has continued to have complex partial seizures, and larger ones, probably secondarily generalized that cause falls and injuries. As noted earlier, we failed on 2 occasions in spite of extensive inpatient video- EEG recording to capture any seizures since she had surgery. This was in spite of taking her off of all antiepileptic medication. Next Encounter: 03/06/2024 Date of Last Refill: 03/02/23 Medication category requirements (labs etc): n/a Status of request: Pended Allergies Allergen Reactions Lamictal [Lamotrigine] Per patient very dizzy, double vision, and hard to keep walking. Topiramate Itching Alicia Velez RN 10/02/23 9:24 AM * Telephone Encounter - Sheri Candelario - 10/02/2023 8:07 AM EDT Call Center / [facility] Message Prescription Refill Request Clinical Mdm Sr message Provider patient sees in Clinic: Dr. Wills Caller and relationship (if other than patient-full name): Josiane Pacheco Call back Number: [phone] Ok to leave a message: Yes Any issues needing to be addressed prior to medication refill? (ex: dose increase, not at pharmacy): No. Name of Med: clonazePAM (KlonoPIN) disintegrating tablet Strength of Pills: 1 mg Dosing Directions: Take 1 tablet by mouth 2 times daily. How Patient is Currently Taking Medication: as prescribed 30 or 90 Day Supply: 90 day supply Pharmacy: [id number] Last Appointment: 09/04/2023 Next Appointment: 03/06/2024 Is Patient out of Medication?: YES. Thank you. documented in this encounter Plan of Treatment Upcoming Encounters Date Type Department Care Team (Late st Contact Info) Description 03/06/2024 1:30 PM EST [place] [address] Sayta Wills MD [facility] [place] [place] [address] documented as of this encounter Visit Diagnoses Diagnosis Partial epilepsy with impairment of consciousness, intractable Localization-related (focal) (partial) epilepsy and epileptic syndromes with complex partial seizures, with intractable epilepsy Anxiety disorder, unspecified type documented in this encounter Care Teams Certified Physician Assistant Relationship Specialty Start Date End Date Sarah Alejo APRN [address] [place] [address] PCP - General Internal Medicine 11/06/19 documented as of this encounter
--- OUTSIDE RECORDS SUMMARY | 2023-12-04 16:29 | XMS_ITS | Encounter Summary ---
Author Organization [facility] Address [facility] [place] [address] Care Team Providers Care Weaving Instructor Name Role Phone Sarah Alejo Nancy MUNGUIA Primary Care Provider [phone] Encounter Details Date Type Department Care Team (Late st Contact Info) Description 10/24/2022 2:30 PM EDT [place] [id number] Satya Wills MD [facility] [place] [address] Depression, recurrent; Partial epilepsy with impairment of consciousness, intractable Social History Tobacco Use Types Packs/Day Years Used Date Smoking Tobacco: Light Smoker Cigarettes Last attempted t o quit: 01/02/1985 Smokeless Tobacco: Never Comments:occasionally Alcohol Use Standard Drinks/Week Comments Yes 0 (1 standard drink = 0.6 oz [...] place to sleep or slept in a chcf (including now)? No 10/24/2022 Education Answer Date [...] Sign Reading Time Taken Comments Blood Pressure 125/78 10/24/2022 2:13 PM EDT Pulse 90 10/24/2022 2:13 PM EDT Temperature - - Respiratory Rate - - Oxygen Saturation - - Inhaled Oxygen Concentration - - Weight 89.8 kg (198 lb) 10/24/2022 2:13 PM EDT Height 168.9 cm (5' 6.5) 10/24/2022 2:13 PM EDT Body Mass Index 31.48 10/24/2022 2:13 PM EDT documented in this encounter Progress Notes * Satya Wills MD - 10/24/2022 2:30 PM EDT Neurology clinic note Chief Complaint: Epilepsy. History or Present Illness: The patient is seen in followup today. She came by herself to clinic As noted earlier The patient is a 45-year-old, right-handed woman. She thinks she has a normal and early development. She had Japanese measles at 5 months with high fever. This was associated with generalized tonic-clonic convulsions. She then started to have what sounded like complex partial seizures at about the age of 5 years. She describes being aware of an aura of kalyan vu, and then having loss of consciousness. She also describes sometimes having a sensation in her throat. She does not describe any lateralized hemisensory or adrien-motor symptoms. She complains of occasional tinnitus associated with the seizures, but does not describe any change in vision. She says that witnesses have described generalized tonic-clonicconvulsive seizures, as well as less severe ones with stiffening only. She does not give any clear account of automatisms. Initially seizures were happening about once every 2 weeks. She thinks that frequency has not changed much over the years, It is unclear whether she is having generalized seizures or severe complex partial seizures. She is a somewhat vague historian. She says she sometimes wakes up with her tongue b itten, and is sometimes incontinent. It sounds as though most of the convulsive seizures are happening at night, the complex partial ones more in the daytime. The patient has been evaluated with MRI scan which shows equivocal right mesial temporal sclerosis.EEG was reported to show right temporal slowing. The patient has been previously treated with phenobarbital, Dilantin, Tegretol, Topamax, Depakote. None of these really control her seizures. She was subsequently on a combination of Lamictal, Keppra, and Klonopin. In 2006 because she had refractory epilepsy, with some improvement but not seizure control on medications she was evaluated for epilepsy surgery. 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 After her viral load was 0, and her CSF was normal, she received a right temporal lobectomy. 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 Following right temporal lobectomy, unfortunately she continued to have seizures after the surgery although they are somewhat less frequent than before. We attempted to record more seizures, but in spite of 2 rounds of inpatient video EEG monitoring off all antiepileptic medication no seizures werecaptured. However, she suffered injuries from seizures at home, and her son gave a convincing description of witnessed complex partial and secondarily generalized seizure activity. As of 2016 additional medication adjustments have not been particularly helpful. More recently we have tried Aptiom, Vimpat and clobazam. She had an allergic reaction to clobazam. She was then lost to follow-up here and received care locally in [facility]. In 2020 the patient returned for neurological F/U at [facility]. She reported ongoing seizure activity with mostly nocturnal events happening every few weeks to months. She has sustained numerous injuries including a subdural hematoma. She continues to be treated for HIV infection with somewhat variable viral loads in [place]. She says her headaches are doing quite well with meloxicam. I arrange for her to be placed on a combination of lacosamide and clonazepam and on that she reports feelingbetter and having fewer seizures. In the last few months it seems that she has had about 1 event per month although the exact count is uncertain As of 2021 the patient appeared to be doing better. Dr. Myers who follows her for HIV infection at [facility] reported improved adherence with medication, decreased viral load and better mood. She is, as usual, vague about her seizure history, but denies having had serious accidents or injuries. It is not certain how frequently she is having minor events. She was on clonazepam and lacosamide, but something went wrong with the lacosamide prescription where they would no longer fill it in liquid form,and there was some breakdown in communication such that I was not aware of this problem, and so shehas not been taking it. She has had 3 seizures in the last few months. Her leg cramps are better improved hydration using tonic water. She is not complaining of difficulty with swallowing, which she did in the past Interval history: As of 2022 the patient is doing about the same. It seems that she has a major seizure every few months. She says she is adherent to her medications, but Vimpat level at her last visit was quite low. HIV infection seems to be doing quite well, but she is complaining of a rash.. She says she has not been drinking any significant amount of alcohol. She describes more difficultyswallowing. She would like to get another endoscopy. She continues to live by herself in [place]. Past medical history: Patient Active Problem List Diagnosis HIV disease AIDS Anxiety Bacterial pneumonia Dysphagia Family estrangement Electrolyte depletion Herpes zoster History of alcohol abuse Prolapsed external hemorrhoids Renal cyst Status post cholecystectomy Status post colonoscopy with polypectomy Subdural hematoma without coma Vitamin D deficiency Migraine with aura Dermatitis Pruritus ETOH abuse intermittent Now in remission Colon polyps Has had colonoscopy Elevated liver enzymes Attributed to medications and alcohol. Doing well at present Hiatal hernia Gastro-esophageal reflux disease with esophagitis Has had dilatation of stricture Nicotine dependence Fissure in ano Treated topically Hemorrhoids Rosacea Hyperlipidemia Migraine Chronic headaches of various kinds, never fully controlled. Multiple imaging studies of the brain and lumbar punctures unrevealing Obesity Depression Dyslipidemia Partial epilepsy with impairment of consciousness, intractable Intractable epilepsy. Status post temporal lobectomy with persistent seizures. Tubular adenoma of colon Review of systems: She is eating all right following esophageal dilatation. Sleep is disturbed by her bad dreams. Bowel and bladder function are unremarkable. Physical Examination: BP 125/78 (BP Location (NBP): Right arm, Patient Position: Sitting, BP Cuff Sizes: Adult (25-34 cm)) Pulse 90 Ht 168.9 cm (5' 6.5) Wt 89.8 kg (198 lb) LMP 11/26/2010 BMI 31.48 kg/m?? Head, eyes, ears, nose, and throat were normal. Lungs are noteworthy for some wheezing. Heart was normal. Extremities were unremarkable. There seem to be a variety of skin lesions including atopic dermatitis, what looked like viral warts, and some acneiform versus cellulitic lesions on the face. Her mood was good and her speech was normal. In 2020 she scored 29/30 on MMSE. At baseline her speech is little slow, and slightly pressured but I think it is normal for her. There was minimal external deviation of the right eye as previously noted. Cranial nerves were otherwise unremarkable. Strength was normal. There is some tightness of oral and oropharyngeal musculature giving her tightness around the mouth and slightly strained speech. Cerebellar coordination remains mildly impaired with somewhat abnormal rebound, that appears a little worse on the left. Reflexes were brisk, 2+. Babinski sign was previously absent. Sensation was normal to touch, and graphesthesia. Pin sensation appeared normal, but vibration sense was somewhat diminished at the ankles. Her gait was stable. Medications: Current Outpatient Medications Medication Sig Dispense Refill lacosamide (VIMPAT) 200 mg Tablet Take 1 tablet by mouth nightly. 30 tablet 5 lacosamide (Vimpat) 100 mg Tablet Take 1 tablet by mouth every morning. 30 tablet 5 clonazePAM (KlonoPIN) 1 mg Tablet, Rapid Dissolve Take 1 tablet by mouth 2 times daily. 60 tablet 5 folic acid (Folvite) 1 mg Tablet Take 1 tablet by mouth daily. 100 tablet 3 meloxicam (MOBIC) 7.5 mg Tablet Take 1 tablet by mouth 2 times daily as needed for Pain. 60 tablet 5 hydrOXYzine (Atarax) 10 mg/5 mL Solution Take 5 mLs by mouth 3 times daily. 473 mL 5 Multivitamins with Iron Tablet Take 1 tablet by mouth Daily. tenofovir alafenamide (Vemlidy) 25 mg Tablet Take 1 tablet by mouth daily. 30 tablet 0 dolutegravir (Tivicay) 50 mg Tablet Twice a day lamiVUDine (Epivir) 150 mg/15 mL Solution Take 150 mg by mouth 2 times daily. No current facility-administered medications for this visit. Laboratory Studies: Blood tests unremarkable in 2020 Lacosamide Level Hepatic Function Panel Basic Metabolic Panel (non-fasting) CBC (with Diff) TSH T4 Total Vitamin B12 Lyme IgG & IgM Antibody Hemogram Differential, Automated Lab tests unremarkable in 2020 except for borderline B12 level Procedures Basic Metabolic Panel (non-fasting) Hepatic Function Panel CBC (with Diff) Lacosamide Level Hemogram Differential, Automated Orders Placed This Encounter Procedures Hepatic Function Panel Basic Metabolic Panel (non-fasting) CBC (with Diff) Lacosamide Level Impression: The patient appears to be doing about the same 1. She had a temporal lobectomy for refractory epilepsy but from reliable descriptions she has continued to have complex partial seizures, and larger ones, probably secondarily generalized that causefalls and injuries. As noted earlier, we failed on 2 occasions in spite of extensive inpatient video- EEG recording to capture any seizures since she had surgery. This was in spite of taking her off of all antiepileptic medication. There was some doubt in my mind as to whether all the events that she was having were epileptic, although her son's description was very convincing. It is also possible that some of her seizures wererelated to alcohol withdrawal. She now seems to be having 1 seizure every few months, perhaps more when she misses medications. I recommended that she try increasing the dose of lacosamide from 100 mg twice daily to 100, 200 mg. I am making no other change. Her blood level of lacosamide was very low at her last visit. I am repeating that today. 2. Headaches seem somewhat improved . She is needing less meloxicam. I would do nothing further. 3. She does appear to have a peripheral neuropathy that now appears to be stable. Her vitamin B12 level was borderline. I recommended that she take 1 mg by mouth daily. I also recommended that she continue drinking 16 ounces of tonic water nightly for nocturnal cramps. She is noncompliant with vitamin B12, saying she has difficulty swallowing the pills. 4. Psychiatrically she looks somewhat better today, with less pressured speech and also somewhat more organized in her thinking. She scored 29/30 on the MMSE in 2021. 5. With regard to medical issues, she is complaining of increased dysphagia to the point that it isinterfering with medication adherence. She had abnormal upper endoscopy with esophagitis and rings requiring dilatation, and colonoscopy with colon polyps. I will speak with Dr. Cordova who did the procedure to decide how this should be handled. She has several different types of skin lesions, and I decided to put this on hold, as she is seeing Brittanie Pina APRN tomorrow, and I will defer to her in this regard. Thank you for this consultation. I will see her back in 6 months or sooner as needed. Satya Wills MD Department [place] [address] Pager: [phone], #[phone] Email: [email or web address]: Sarah Cordova documented in this encounter Plan of Treatment Upcoming Encounters Date Type Department Care Team (Late st Contact Info) Description 03/06/2024 1:30 PM EST [place] [phone] Satya Wills MD [facility] [place] [address] documented as of this encounter Procedures Procedure Name Priority Date/Time Associated Diagnosis Comments LACOSAMIDE LEVEL Routine 10/24/2022 3:48 PM EDT Partial epilepsy with impairment of consciousness, intractable HEMOGRAM Routine 10/24/2022 3:48 PM EDT Partial epilepsy with impairment of consciousness, intractable DIFFERENTIAL, AUTOMATED Routine 10/24/2022 3:48 PM EDT Partial epilepsy with impairment of consciousness, intractable CBC (WITH DIFF) Routine 10/24/2022 3:48 PM EDT Partial epilepsy with impairment of consciousness, intractable VITAMIN B12 Routine 10/24/2022 3:48 PM EDT Depression, recurrent Partial epilepsy with impairment of consciousness, intractable HEPATIC FUNCTION PANEL Routine 10/24/2022 3:48 PM EDT Partial epilepsy with impairment of consciousness, intractable BASIC METABOLIC PANEL Routine 10/24/2022 3:48 PM EDT Partial epilepsy with impairment of consciousness, intractable documented in this encounter Results * Differential, Automated (10/24/2022 3:48 PM EDT) Neutrophil % Clotted [facility] Comment: Specimen clotted. Corrected from 45.1 % [NA] on 10/24/22 17:09:22 EDT by Robe Oquendo. Neutrophil Absolute Clotted 1.70 - 6.10 [facility] Comment: Specimen clotted. Corrected from 2.28 x10(3)/mcL on 10/24/22 17:09:22 EDT by Robe Oquendo. Lymph % Clotted [facility] Comment: Specimen clotted. Corrected from 48.0 % [NA] on 10/24/22 17:09:22 EDT by Robe Oquendo. Lymphocytes Abs Clotted 0.9 - 3.2 [facility] Comment: Specimen clotted. Corrected from 2.4 x10(3)/mcL on 10/24/22 17:09:22 EDT by Robe Oquendo. Monocyte % Clotted [facility] Comment: Specimen clotted. Corrected from 5.9 % [NA] on 10/24/22 17:09:22 EDT by Robe Oquendo. Monocyte Abs Clotted 0.3 - 0.9 [facility] Comment: Specimen clotted. Corrected from 0.3 x10(3)/mcL on 10/24/22 17:09:22 EDT by Robe Oquendo. Eos % Clotted [facility] Comment: Specimen clotted. Corrected from 0.4 % [NA] on 10/24/22 17:09:22 EDT by Robe Oquendo. Eosinophils Abs Clotted 0.0 - 0.4 [facility] Comment: Specimen clotted. Corrected from 0.0 x10(3)/mcL on 10/24/22 17:09:22 EDT by Robe Oquendo. Basophil % Clotted [facility] Comment: Specimen clotted. Corrected from 0.4 % [NA] on 10/24/22 17:09:22 EDT by Robe Oquendo. Baso Absolute Clotted 0.0 - 0.1 [facility] Comment: Specimen clotted. Corrected from 0.0 x10(3)/mcL on 10/24/22 17:09:22 EDT by Robe Oquendo. Immature Gran % Clotted [facility] Comment: Immature granulocytes(IG's)percentage and absolute count will include metamyelocytes, myelocytes, and promyelocytes. Blood smears from CBCs yielding IG's will be scanned manually for concordance. If this scan disagrees with the automated IG or if promyelocytes are noted, a manual differential will be performed. Specimen clotted. Immature granulocytes(IG's)percentage and absolute count will include metamyelocytes, myelocytes, and promyelocytes. Blood smears from CBCs yielding IG's will be scanned manually for concordance. If this scan disagrees with the automated IG or if promyelocytes are noted, a manual differential will be performed. Corrected from 0.20 % [NA] on 10/24/22 17:09:22 EDT by Robe Oquendo. Immature Gran Absolute Clotted 0.00 - 0.04 [facility] Comment: Specimen clotted. Corrected from 0.01 x10(3)/mcL on 10/24/22 17:09:22 EDT by Robe Oquendo. Blood 10/24/2022 3:48 PM EDT 10/24/2022 3:52 PM EDT Narrative Resulting Agency Comment Spec In Lab Satya Wills MD HEMATOLOGY ORDERABLE S [facility] [place] [address] * Hemogram (10/24/2022 3:48 PM EDT) White Blood Cell Clotted 4.0 - 9.5 [facility] Comment: Specimen clotted. Corrected from 5.1 x10(3)/mcL on 10/24/22 17:09:22 EDT by Robe Oquendo. Red Blood Cell Clotted 4.00 - 5.21 [facility] Comment: Specimen clotted. Corrected from 3.45 x10(6)/mcL [LOW] on 10/24/22 17:09:22 EDT by Robe Oquendo. Hemoglobin Clotted 11.7 - 15.5 [facility] Comment: Specimen clotted. Corrected from 12.9 g/dL on 10/24/22 17:09:22 EDT by Robe Oquendo. Hematocrit Clotted 35.7 - 45.8 [facility] Comment: Specimen clotted. Corrected from 37.7 % on 10/24/22 17:09:22 EDT by Robe Oquendo. Mean Cell Volume Clotted 82.6 - 94.4 [facility] Comment: Specimen clotted. Corrected from 109.3 fL [HI] on 10/24/22 17:09:22 EDT by Robe Oquendo. Mean Cell Hemoglobin Clotted 27.1 - 32.0 [facility] Comment: Specimen clotted. Corrected from 37.4 pg [HI] on 10/24/22 17:09:22 EDT by Robe Oquendo. Mean Cell Hemoglobin Concentration Clotted 31.7 - 35.0 [facility] Comment: Specimen clotted. Corrected from 34.2 g/dL on 10/24/22 17:09:22 EDT by Robe Oquendo. Platelet Clotted 145 - 357 [facility] Comment: Specimen clotted. Corrected from 92 x10(3)/mcL [LOW] on 10/24/22 17:09:22 EDT by Robe Oquendo. RDW Standard Deviation Clotted 37.0 - 46.0 [facility] Comment: Specimen clotted. Corrected from 49.1 fL [HI] on 10/24/22 17:09:22 EDT by Robe Oquendo. RDW coefficient of variation Clotted 11.5 - 14.1 [facility] Comment: Specimen clotted. Corrected from 12.7 % on 10/24/22 17:09:22 EDT by Robe Oquendo. Mean Platelet Volume Clotted 7.6 - 12.9 [facility] Comment: Specimen clotted. Corrected from 9.9 fL on 10/24/22 17:09:22 EDT by Robe Oquendo. NRBC% auto Clotted [facility] Comment: Specimen clotted. Corrected from 0.0 % [NA] on 10/24/22 17:09:22 EDT by Robe Oquendo. NRBC Absolute Clotted 0.000 - 0.000 [facility] Comment: Specimen clotted. Corrected from 0.000 x10(3)/mcL on 10/24/22 17:09:22 EDT by Robe Oquendo. Blood 10/24/2022 3:48 PM EDT 10/24/2022 3:52 PM EDT Narrative Resulting Agency Comment Spec In Lab Satya Wills MD HEMATOLOGY ORDERABLE S Performing Organization Address City/[facility]/ZIP Co de Phone Number [facility] [place] [address] * Vitamin B12 (10/24/2022 3:48 PM EDT) Vitamin B12 484 232 - 1,245 pg/mL [facility] Blood 10/24/2022 3:48 PM EDT 10/24/2022 3:52 PM EDT Narrative Resulting Agency Comment Spec In Lab Satya Wills MD CHEMISTRY ORDERABLES Performing Organization Address City/[facility]/ZIP Co de Phone Number [facility] [place] [address] * Lacosamide Level (10/24/2022 3:48 PM EDT) Lacosamide Level (JUNE) 1.7 1.0 - 10.0 mcg/mL [facility] Comment: ADDITIONAL INFORMATION This test was developed and its performance characteristics determined by [facility] in a manner consistent with CLIA requirements. This test has not been cleared or approved by the U.S. Food and Drug Administration. Test Performed by: [facility] [address] [place] [address] Tape Deck Installer: Willy Khan M.D. Ph.D.; CLIA# [id number] Blood 10/24/2022 3:48 PM EDT 10/25/2022 11:16 AM EDT Narrative Resulting Agency Comment Spec In Lab Satya Wills MD LAB SEND OUT ORDERAB LES [facility] [place] [address] * (ABNORMAL) Basic Metabolic Panel (non-fasting) (10/24/2022 3:48 PM EDT) Glucose 108 65 - 199 mg/dL [facility] Comment:Diabetes: >=200 mg/d L plus symptoms Blood Urea Nitrogen 7(L) 8 - 18 mg/dL [facility] Creatinine 0.91 0.70 - 1.20 mg/dL [facility] Sodium 147(H) 135 - 145 mmol/L [facility] Potassium 3.3(L) 3.5 - 5.0 mmol/L [facility] Comment: Please note: ??Patients with WBC >100,000 may have falsely elevated Potassium levels. ??For accurate Potassium quantification in these patients send serum separator tube (gold top) for subsequent determinations. ??Contact the Clinical Chemistry Laboratory if there are any questions. Chloride 108(H) 98 - 107 mmol/L [facility] Carbon Dioxide 25 22 - 31 mmol/L [facility] Anion Gap 14 5 - 15 mmol/L [facility] Calcium 8.4(L) 8.5 - 10.5 mg/dL [facility] Est Glomerular Filtration Rate 70 >=60 mL/min/1. 73 m?? [facility] Comment: This patient's estimated GFR was [...] and symptoms in addition to eGFR. Blood 10/24/2022 3:48 PM EDT 10/24/2022 3:51 PM EDT Narrative Resulting Agency Comment Spec In Lab Satya Wills MD CHEMISTRY ORDERABLES Performing Organization Address [facility] Co de Phone Number [facility] [place] [address] * (ABNORMAL) Hepatic Function Panel (10/24/2022 3:48 PM EDT) Protein, Total 7.2 6.1 - 8.0 g/dL [facility] Albumin 3.9 3.2 - 5.2 g/dL [facility] Aspartate Aminotransferase 68(H) 0 - 30 unit/L [facility] Alanine Aminotransferase 51(H) 0 - 30 unit/L [facility] Alkaline Phosphatase 63 35 - 105 unit/L [facility] Bilirubin, Total 0.9 0.2 - 1.3 mg/dL [facility] Bilirubin, Direct 0.4(H) 0.0 - 0.3 mg/dL [facility] Blood 10/24/2022 3:48 PM EDT 10/24/2022 3:51 PM EDT Narrative Resulting Agency Comment Spec In Lab Satya Wills MD CHEMISTRY ORDERABLES Performing Organization Address [facility] Co de Phone Number [facility] [place] [address] documented in this encounter Visit Diagnoses Diagnosis Depression, recurrent Major depressive disorder, recurrent episode, unspecified Partial epilepsy with impairment of consciousness, intractable Localization-related (focal) (partial) epilepsy and epileptic syndromes with complex partial seizures, with intractable epilepsy documented in this encounter Care Teams Weaving Instructor Relationship Specialty Start Date End Date Sarah Alejo, OUTSIDE SALES [address] [place] [address] PCP - General Internal Medicine 11/06/19 documented as of this encounter
--- OUTSIDE RECORDS SUMMARY | 2023-12-04 16:29 | XMS_ITS | Encounter Summary ---
Author Organization Formerly [facility] [place] [address] Care Team Providers Care Dewer Name Role Phone Sarah Alejo EZRA Primary Care Provider [phone] Reason for Visit * Auth/Cert (Routine) Specialty Diagnoses / Procedures Referred By Jin t Referred To Contact Diagnoses Dysphagia, oral phase dysphagia Procedures PRO UPPER GI ENDOSCOPY, DIAGNOSTIC PRO UPPER GI ENDOSCOPY, BIOPSY PRO UP GI ENDOSCOPY, REMV TUMOR, SNARE PRO ANESTH, UGI ENDOSCOPY NOS PRO UP GI ENDOSCOPY, BALL DIL, 30MM EGD, UPPER GI ENDOSCOPY (WRVU 2.09) Antony Cordova MD [facility] [place] [address] [facility] Referral ID Status Reason Start Date Expiration Date Visits Re quested Visits Authorized [id number] 1 1 Encounter Details Date Type Department Care Team (Late st Contact Info) Description 11/22/2022 11:49 AM EDT Anesthesia [place] [phone] Yevgeniy Pacheco MD [facility] [place] [address] Anesthesia Record Procedure Summary Procedure Name Responsible Anesthesiologist Anesthesia Start Time Anesthesia Stop Time EGD,WITH DILATION ESOPHAGUS WITH BALLOON,< 30 MM (WRVU 2.67) (Trunk) Yevgeniy Pacheco MD 11/22/22 1149 11/22/22 1204 Events Date Time Event Comment 11/22/2022 0807 1149 AN Verify 1149 Start 1149 An Start Data 1152 An Induction 1152 Anesthesia Ready 1204 an stop data 1204 Recovery or ICU Handoff Lida ent care was transferred to the destination unit staff after review of the patient's medical history, current anesthetic/surgical status and plan, according to the Provider Handoff Checklist. 1204 Stop Meds Name Total Propofol 50 mg Propofol INF 161.64 mg lactated ringers infusion 400 mL * Agents Name O2 Air N2O O2 Auxiliary Flowmeter 1 * Blood No blood administrations on file. Lines, Drains, and Airways Type Details Placement Removal (RETIRED) Peripheral IV Line - Single Lumen 11/22/22; 1153; median cubital vein (antecubital fossa), left; 22 gauge; 11/22/22; 1256 11/22/22 1153 by Willy Bragg CRNA 11/22/22 1256 by Juan Blanchard RN documented in this encounter Social History [...] OR Notes * Anesthesia Postprocedure Evaluation - Yevgeniy Pacheco MD - 11/22/2022 12:19 PM EDT Department of Anesthesiology Post-procedure Note Patient: Josiane Pacheco Procedure Summary Date: 11/22/22 Room / Location: [facility] ENDO 2 / [facility] ENDOSCOPY Anesthesia Start: 1149 Anesthesia Stop: 1204 Procedure: EGD,WITH DILATION ESOPHAGUS WITH BALLOON,< 30 MM (WRVU 2.67) (Trunk) Diagnosis: Oral phase dysphagia (dysphagia) Surgeons: Antony Cordova MD Responsible Provider: Yevgeniy Pacheco MD Anesthesia Type: MAC ASA Status: 3 All Anesthesia Providers: Anesthesiologist: Yevgeniy Pacheco MD STACKER DRIVER: Willy Bragg CRNA Vitals Value Taken Time BP Temp Pulse Resp SpO2 Pain Level Patient Location: PACU/[facility] Level of Consciousness: Awake and Alert Pain Management: Satisfactory Analgesia PONV: None Cardiovascular Status: At Baseline and Hemodynamically Stable Respiratory Status: At Baseline and Room Air Postoperative Fluid Status: Intravascular EUvolemia Possible Anesthetic Complications: NONE apparent at time of evaluation Final Primary Anesthesia Type: MAC (The anesthetic type performed was the same as planned.) Comments: Yevgeniy Pacheco MD * Anesthesia Preprocedure Evaluation - Yevgeniy Pacheco MD - 11/22/2022 8:00 AM EDT Images from the original note were not included. Pre-Anesthesia Evaluation for: Josiane Pacheco a 67 y.o. female. Procedure(s): EGD, UPPER GI ENDOSCOPY COLONOSCOPY, DIAGNOSTIC Patient Active Problem List Diagnosis ??? HIV disease ??? AIDS ??? Anxiety ??? Bacterial pneumonia ??? Dysphagia ??? Family estrangement ??? Electrolyte depletion ??? Herpes zoster ??? History of alcohol abuse ??? Prolapsed external hemorrhoids ??? Renal cyst ??? Status post cholecystectomy ??? Status post colonoscopy with polypectomy ??? Subdural hematoma without coma ??? Vitamin D deficiency ??? Migraine with aura ??? Dermatitis ??? Pruritus ??? ETOH abuse intermittent Now in remission ??? Colon polyps Has had colonoscopy ??? Elevated liver enzymes Attributed to medications and alcohol. Doing well at present ??? Hiatal hernia ??? Gastro-esophageal reflux disease with esophagitis Has had dilatation of stricture ??? Nicotine dependence ??? Fissure in ano Treated topically ??? Hemorrhoids ??? Rosacea ??? Hyperlipidemia ??? Migraine Chronic headaches of various kinds, never fully controlled. Multiple imaging studies of the brain and lumbar punctures unrevealing ??? Obesity ??? Depression ??? Dyslipidemia ??? Partial epilepsy with impairment of consciousness, intractable Intractable epilepsy. Status post temporal lobectomy with persistent seizures. ??? Tubular adenoma of colon Past Medical History: Diagnosis Date ??? HIV disease 05/28/2010 Past Surgical History: Procedure Laterality Date ??? PRO COLONOSCOPY, DIAGNOSTIC N/A 04/21/2020 COLONOSCOPY, DIAGNOSTIC performed by Antony Cordova MD at [facility] ENDOSCOPY ??? PRO ESOPHAGOSCOPY RIGID TRANSORAL BALLOON DILATION N/A 07/31/2015 ESOPHAGOSCOPY, TRANSORAL; WITH BALLOON DILATION <30MM performed by Ramesh Johnson MD at [facility] ENDOSCOPY ??? PRO ESOPHAGOSCOPY RIGID TRANSORAL BALLOON DILATION N/A 10/16/2015 ESOPHAGOSCOPY, TRANSORAL; WITH BALLOON DILATION <30MM performed by Ramesh Johnson MD at [facility] ENDOSCOPY ??? PRO UP GI ENDOSCOPY, BALL DIL, 30MM N/A 01/08/2016 EGD,WITH DILATION ESOPHAGUS WITH BALLOON,< 30 MM performed by Ramesh Johnson MD at [facility] ENDOSCOPY ??? PRO UP GI ENDOSCOPY, BALL DIL, 30MM N/A 01/14/2020 EGD,WITH DILATION ESOPHAGUS WITH BALLOON,< 30 MM (WRVU 2.77) performed by Johan Ovalle MD at [facility] ENDOSCOPY ??? PRO UP GI ENDOSCOPY, BALL DIL, 30MM N/A 02/05/2020 EGD,WITH DILATION ESOPHAGUS WITH BALLOON,< 30 MM (WRVU 2.77) performed by Johan Ovalle MD at [facility] ENDOSCOPY ??? PRO UP GI ENDOSCOPY, BALL DIL, 30MM N/A 04/21/2020 EGD,WITH DILATION ESOPHAGUS WITH BALLOON,< 30 MM (WRVU 2.77) performed by Antony Cordova MDat [facility] END[facility] ??? PRO UPPER GI ENDOSCOPY, BIOPSY N/A 10/16/2015 UPPER GASTROINTESTINAL ENDOSCOPY,WITH BIOPSY SINGLE OR MULTIPLE performed by Ramesh Johnson MD at [facility] END[facility]COPY ??? PRO UPPER GI ENDOSCOPY, BIOPSY N/A 01/08/2016 EGD WITH BIOPSY performed by Ramesh Johnson MD at [facility] ENDOSCOPY ??? PRO UPPER GI ENDOSCOPY, BIOPSY N/A 01/14/2020 EGD WITH BIOPSY (WRVU 2.49) performed by Johan Ovalle MD at [facility] ENDOSCOPY ??? PRO UPPER GI ENDOSCOPY, DIAGNOSTIC N/A 06/23/2015 EGD, UPPER GI ENDOSCOPY performed by Dejan Sykes MD at [facility] Social History Tobacco Use ??? Smoking status: Light Smoker Packs/day: 0.00 Years: 35.00 Pack years: 0.00 Types: Cigarettes Last attempt to quit: 01/03/2020 Years since quittin.8 ??? Smokeless tobacco: Never ??? Tobacco comments: occasionally Substance Use Topics ??? Alcohol use: Yes Comment: occasionally Social History Substance and Sexual Activity Drug Use No Allergies Allergen Reactions ??? Lamictal [Lamotrigine] Per patient very dizzy, double vision, and hard to keep walking. ??? Topiramate Itching Medications: MAR and/or home medications have been reviewed. Physical Exam: No data found. There is no height or weight on file to calculate BMI. Airway Assessment: Mallampati: II TM distance: >3 FB Neck ROM: full Cardiovascular Assessment: Rhythm: regular Rate: normal Pulmonary Assessment: breath sounds clear to auscultation Dental Assessment: Misc Assessment: Patient is wearing No contact(s). IV access: Peripheral line Anesthesia Plan: ASA 3 MAC, with a(n) intravenous induction 67-year-old 89.8 kg F with PMH: Elevated BMI: 31.48 kg/m??, seizure disorder (lacosamide, clonazepam), HIV (tenofovir, dolutegravir, lamivudine) patient presents here today for EGD. Allergies: Lamictal [lamotrigine], topiramate NPO status: Appropriate Plan: MAC, PIV x1, standard ASA monitors ?? Region - Other Informed Consent: Anesthetic plan and risks discussed with patient. Plan discussed with attending and STACKER DRIVER. Anesthesia Screening documented in this encounter Plan of Treatment Upcoming Encounters Date Type Department Care Team (Late st Contact Info) Description 03/06/2024 1:30 PM EST [place] [address] Satya Wills MD [facility] [place] [address] documented as of this encounter Visit Diagnoses Not on filedocumented in this encounter Administered Medications Inactive Administered Medications - up to 3 most recent administrations Medication Order MAR Action Action Date Dose Rate Site lactated ringers infusion 100 mL/hr, Intravenous, CONTINUOUS, Starting on Mon11/22/22 at 1115, Until Mon11/22/22 at 1257, Endoscopy (Intra-Procedure) New Bag 11/22/2022 11:52 AM EDT propofoL (Diprivan) (10 mg/mL) infusion Intravenous, CONTINUOUS PRN, Starting on Mon11/22/22 at 1152, Until Mon11/22/22 at 1204, Anesthesia Intra-op, Routine New Bag 11/22/2022 11:52 AM EDT 150 mcg/kg/min 80.82 mL/hr propofoL (Diprivan) 10 mg/mL bolus injection (Anesthesia) Intravenous, PRN, Starting on Mon11/22/22 at 1152, Until Mon11/22/22 at 1204, Anesthesia Intra-op Given 11/22/2022 11:52 AM EDT 50 mg documented in this encounter Care Teams Dewer Relationship Specialty Start Date End Date Sarah Alejo APRN [address] [place] [address] PCP - General Internal Medicine 11/06/19 documented as of this encounter
--- OUTSIDE RECORDS SUMMARY | 2023-12-04 16:29 | XMS_ITS | Encounter Summary ---
Author Organization [facility] Address [facility] [place] [address] Care Team Providers Care Director Broadcast Name Role Phone Sarah Alejo EZRA Primary Care Provider [phone] Reason for Visit * Reason Comments Medication Refill Encounter Details Date Type Department Care Team (Late st Contact Info) Description 04/07/2023 [place] [phone] Satya Wills MD [facility] [place] [address] Social History Tobacco Use Types Packs/Day Years [...] place to sleep or slept in a longterm (including now)? No 10/24/2022 Education Answer Date Recorded What is the highest level of school you have completed or the highest degree you have received? Some college, no degree 10/24/2022 Sex and Gender Information Value Date Recorded Sex Assigned at Not on file Gender Identity Not on file Sexual Orientation Not on file documented as of this encounter Plan of Treatment Upcoming Encounters Date Type Department Care Team (Late st Contact Info) Description 03/06/2024 1:30 PM EST [place] [address] Satya Wills MD [facility] [place] [address] documented as of this encounter Visit Diagnoses Not on filedocumented in this encounter Care Teams Director Broadcast Relationship Specialty Start Date End Date Sarah Alejo APRN [address] [place] [address] PCP - General Internal Medicine 11/06/19 documented as of this encounter
--- OUTSIDE RECORDS SUMMARY | 2023-12-04 16:29 | XMS_ITS | Encounter Summary ---
Author Organization [facility] Address [facility] [place] [address] Care Team Providers Care Commercial Review Appraiser Name Role Phone Sarah Alejo EZRA Primary Care Provider [phone] Encounter Details Date Type Department Care Team (Late st Contact Info) Description 02/08/2023 Telephone Gastroenterology at [facility] [place] [phone] Christine Arredondo, RN Social History Tobacco Use Types Packs/Day Years [...] place to sleep or slept in a halfway (including now)? No 10/24/2022 Education Answer Date [...] encounter Miscellaneous Notes * Telephone Encounter - Christine Arredondo, RN - 02/08/2023 9:09 AM EST Incoming VM from Brittanie Camarena NP at [facility] in [facility] requesting to speak with Dr Cordova regarding Josiane. States Josiane had an esophageal dilation in late October and a couple weeks after that showed signsof stricture again with vomiting and not being able to keep food or pills down. Josiane is now anemic with black watery stools, pink foamy vomiting Brittanie is hoping to discuss what should be done for Josiane with Dr Cordova, she can be reached at [phone] Forwarded documented in this encounter Plan of Treatment Upcoming Encounters Date Type Department Care Team (Late Contact Info) Description 03/06/2024 1:30 PM EST Office [place] [address] Satya Wills MD [facility] [place] [address] documented as of this encounter Visit Diagnoses Not on filedocumented in this encounter Care Teams Commercial Review Appraiser Relationship Specialty Start Date End Date Sarah Alejo APRN [address] [place] [address] PCP - General Internal Medicine 11/06/19 documented as of this encounter
--- OUTSIDE RECORDS SUMMARY | 2023-12-04 16:29 | XMS_ITS | Encounter Summary ---
Author Organization [facility] Address [facility] [place] [address] Care Team Providers Care Hand Bunch Maker Name Role Phone Sarah Alejo Nancy MUNGUIA Primary Care Provider [phone] Reason for Visit * Reason Onset Date Comments Prior Authorization 03/24/2023 Hydroxyzine Encounter Details Date Type Department Care Team (Late st Contact Info) Description 03/24/2023 [place] [phone] Delilah Balderrama, [facility] Prior Authorization (Hydroxyzine) Social History Tobacco Use Types Packs/Day Years [...] place to sleep or slept in a group home (including now)? No 10/24/2022 Education Answer Date [...] encounter Miscellaneous Notes * Telephone Encounter - Delilah Balderrama CMA - 03/24/2023 10:48 AM EST Submitted Date: Submitted Date: 03/24/23 PA Outcome: PA Approval Medication Prior Authorization Approval Approved: hydrOXYzine HCl 10MG/5ML syrup Case/Reference #: [id number] Approved. This drug has been approved under the Member's Medicare Part D benefit for HYDROXYZINE HCL Syrup 10MG/5ML. Approved quantity: 473 per 30 day(s). You may fill up to a 90 day supply except for those on Specialty Tier 5, which can be filled up to a 30 day supply. Please call the pharmacy to process the prescription claim. * Telephone Encounter - Delilah Balderrama CMA - 03/24/2023 8:18 AM EST PA Submitted Submitted Date: Date Submitted: 03/24/23 Medication Prior Authorization Patient: Josiane Pacheco Patient : 1955 Insurance Company: [employer] Sent via: Your[employer] Angel: [id number] Physician: Satya Wills MD Medication Requested: hydrOXYzine (Atarax) 10 mg/5 mL Solution Frequency/Sig: Take 5 mLs by mouth 3 times daily. Disp: 473 ml Refills: 5 Currently taking: yes If yes, how lon Diagnosis for this medication: Partial epilepsy with impairment of consciousness, 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]; Anxiety disorder, unspecified type [F41.9] Prior medications trialed in this patient: Medication: Hydroxyzine capsule Approx Dates: 9407-9175 Outcome/Adverse Reactions: Inadequate response Medication: Clobazam Approx Dates: 2013 Outcome/Adverse Reactions: Inadequate response Medication: Clonazepam Approx Dates: 2013-current Outcome/Adverse Reactions: Inadequate response Medication: Vimpat Approx Dates: 2020-current Outcome/Adverse Reactions: inadequate response Additional Notes: Allergies Lamictal [Lamotrigine] Not Specified 12/05/2012 Past Updates Per patient very dizzy, double vision, and hard to keep walking. Topiramate Itching documented in this encounter Plan of Treatment Upcoming Encounters Date Type Department Care Team (Late st Contact Info) Description 03/06/2024 1:30 PM EST Office [place] [address] Satya Wills MD [facility] [place] [address] documented as of this encounter Visit Diagnoses Not on filedocumented in this encounter Care Teams Hand Bunch Maker Relationship Specialty Start Date End Date Sarah Alejo APRN [address] [place] [address] PCP - General Internal Medicine 11/06/19 documented as of this encounter
--- OUTSIDE RECORDS SUMMARY | 2023-12-04 16:29 | XMS_ITS | Encounter Summary ---
Author Organization [facility] Address [facility] [place] [address] Care Team Providers Care Supervisor Composing Room Name Role Phone Sarah Alejo EZRA Primary Care Provider [phone] Reason for Visit * Reason Comments Medication Refill Encounter Details Date Type Department Care Team (Late st Contact Info) Description 04/06/2023 Refill [place] [phone] Satya Wills MD [facility] [place] [address] Social History Tobacco Use Types Packs/Day Years [...] as of this encounter Miscellaneous Notes * Addendum Note - Lakshmi Purcell RN - 04/07/2023 10:39 AM ESTAddended by: LAKSHMI PURCELL on: 04/07/2023 10:39 AM Modules accepted: Orders * Telephone Encounter - Lakshmi Purcell RN - 04/07/2023 10:36 AM EST Unable to reach pt, message left documented in this encounter Plan of Treatment Upcoming Encounters Date Type Department Care Team (Late st Contact Info) Description 03/06/2024 1:30 PM EST Office [place] [address] Satya Wills MD [facility] [address] documented as of this encounter Visit Diagnoses Not on filedocumented in this encounter Care Teams Supervisor Composing Room Relationship Specialty Start Date End Date Sarah Alejo APRN [address] [place] [address] PCP - General Internal Medicine 11/06/19 documented as of this encounter
--- OUTSIDE RECORDS SUMMARY | 2023-12-04 16:29 | XMS_ITS | Encounter Summary ---
Author Organization [facility] Address [facility] [place] [address] Care Team Providers Care Television Agent Name Role Phone Sarah Alejo APRN Primary Care Provider [phone] Encounter Details Date Type Department Care Team (Late st Contact Info) Description 02/08/2023 Telephone Gastroenterology at [facility] [place] [phone] Fley Tomlinson Social History Tobacco Use Types Packs/Day Years [...] encounter Miscellaneous Notes * Telephone Encounter - Fely Tomlinson - 02/08/2023 11:57 AM EST Josiane Layton Pacheco [id number] Diagnosis/Indication: dysphagia Please review patient chart to confirm if previous Endoscopy procedure was performed within system. If yes, take note of Anesthesia type used. If previous procedure found, and with MAC/propofol Anesthesia support was used, schedule this procedure with Anesthesia and skip the Anesthesia portion of questions. If not performed within system, not performed at all, or performed with IVCS, ask Anesthesia questions. SCHEDULING QUESTIONS (ask all patient these questions) Have you ever had a/an Upper Endoscopy before? Yes: Date 11/22/22 If yes, did you have any problems with the procedure (such as waking up during the procedure, pain or difficulties afterwards, etc.)? No What type of sedation was used: General Anesthesia Do you take any blood thinners or have you been diagnosed with a bleeding disorder that increases your risk of bleeding with procedures? No Do you have a Pacemaker or Defibrillator device? If yes, send pool message to Cardiology with patient information and date or procedure. No Are you a diabetic? If yes, call PCP/managing provider to discuss use of prep and any questions or concerns related to. No Do you take any iron supplements or vitamins that contain iron? No Do you have a preference regarding the gender of your provider? No ANESTHESIA QUESTIONS (YES to any question, please book with Anesthesia support) Have you ever been diagnosed with Pulmonary Hypertension and/or Congential Heart Disease? No Have you been diagnosed with A-Fib (atrial fibrillation) that is NOT being well controled with medications? No Have you ever had an allergic or adverse reaction to Fentanyl or Versed? No Have you had a problem with sedation or anesthesia? (Waking up during procedure, extreme confusion after, etc.) No Do you have a diagnosis of Obstructive Sleep Apnea that requires the use of a c- pap machine? No Do you use an oxygen tank at home? No Do you use a rescue inhaler more than twice per day? (COPD, severe asthma) No Do you experience breathing problems when you lay flat for a period of time? No Do you take prescription narcotic pain medications, including suboxone or methodone? No SCHEDULING CONFIRMATIONS: Please note any and all parts of your conversation with the patient here. We offer all new patients an opportunity to have an appointment with one of our associate care providers to learn more about your upcoming procedure, ask questions and get answers. These appointmentsare offered via telehealth. Would you be interested in scheduling this appointment? (Only ask if NEW referral patient; skip this question if [facility] provider ordered the procedure.) No Is there any other information or concerns you would like to us to share with your care team in relation to your upcoming scheduled procedure? No You must have a responsible libertarian who will drive you to your procedure, stay on campus for the entire duration of your procedure, and drive you home from your procedure. Who will likely be your regional driver for the procedure? *Please Verify the height and weight, and adjust if height and/or weight have changed* Estimated body mass index is 31.48 kg/m?? as calculated from the following: Height as of 11/22/22: 168.9 cm (5' 6.5). Weight as of 11/22/22: 89.8 kg (198 lb). *Patient must be scheduled for Anesthesia support if BMI is 40 or above* Height: 5'6 Weight: 180 BMI: 29 Age:67 y.o. documented in this encounter Plan of Treatment Upcoming Encounters Date Type Department Care Team (Late st Contact Info) Description 03/06/2024 1:30 PM EST [place] [address] Satya Wills MD [facility] [place] [address] documented as of this encounter Visit Diagnoses Not on filedocumented in this encounter Care Teams Television Agent Relationship Specialty Start Date End Date Sarah Alejo APRN [address] [place] [address] PCP - General Internal Medicine 11/06/19 documented as of this encounter
--- OUTSIDE RECORDS SUMMARY | 2023-12-04 16:29 | XMS_ITS | Encounter Summary ---
Author Organization [facility] Address [facility] [place] [address] Care Team Providers Care Legal Instruments Examiner Name Role Phone Sarah Alejo EZRA Primary Care Provider [phone] Reason for Referral * Consultation (Routine) - Authorized Specialty Diagnoses / Procedures Referred By Contnate t Referred To Contact Gastroenterology Diagnoses Diarrhea, unspecified type Dysphagia, unspecified type Bloating HIV infection, unspecified symptom status diarrhea/dysphagia/bloati ng / hx HIV Suhail Padilla MD [facility] [place] [address] [facility] [address] Referral ID Status Reason Start Date Expiration Date Visits Requested Visits Authorized [id number] Authorized Consult, Test & Treat 03/03/2023 03/02/2024 1 1 Encounter Details Date Type Department Care Team (Late st Contact Info) Description 03/03/2023 Orders [place] [address] Suhail Padilla MD [facility] [place] [address] Diarrhea, unspecified type; Dysphagia, unspecified type; Bloating; HIV infection, unspecified symptom status Social History Tobacco Use Types Packs/Day Years [...] place to sleep or slept in a jail (including now)? No 10/24/2022 Education Answer Date [...] 1:30 PM EST [place] [address] Satya Wills MD [facility] [place] [address] Scheduled Referrals Name Type Priority Associated Diagnoses Order Schedule Referral to Gastroenterology Outpatient Referral Routine Diarrhea, unspecified type Dysphagia, unspecified type Bloating HIV infection, unspecified symptom status Ordered: 03/03/2023 documented as of this encounter Visit Diagnoses Diagnosis Diarrhea, unspecified type Dysphagia, unspecified type Bloating Flatulence, eructation, and gas pain HIV infection, unspecified symptom status documented in this encounter Care Teams Legal Instruments Examiner Relationship Specialty Start Date End Date Sarah Alejo APRN [address] [place] [address] PCP - General Internal Medicine 11/06/19 documented as of this encounter
--- OUTSIDE RECORDS SUMMARY | 2023-12-04 16:29 | XMS_ITS | Encounter Summary ---
Author Organization [facility] Address [facility] [place] [address] Care Team Providers Care 3D Designer Name Role Phone Gina Alejoyce Nancy MUNGUIA Primary Care Provider [phone] Encounter Details Date Type Department Care Team (Late st Contact Info) Description 03/02/2023 3:00 PM EST [place] [address] Satya Wills MD [facility] [place] [address] Partial epilepsy with impairment of consciousness, intractable; Subdural hematoma without coma with loss of consciousness, sequela; Depression, recurrent; Partial epilepsy with impairment of consciousness, intractable; [...] place to sleep or slept in a alf (including now)? No 10/24/2022 Education Answer Date [...] Sign Reading Time Taken Comments Blood Pressure 127/78 03/02/2023 3:11 PM EST Pulse 105 03/02/2023 3:11 PM EST Temperature - - Respiratory Rate - - Oxygen Saturation 98% 03/02/2023 3:11 PM EST Inhaled Oxygen Concentration - - Weight 81.6 kg (180 lb) 03/02/2023 3:11 PM EST Height 168.9 cm (5' 6.5) 03/02/2023 3:11 PM EST Body Mass Index 28.62 03/02/2023 3:11 PM EST documented in this encounter Progress Notes * Satya Wills MD - 03/02/2023 3:00 PM EST Neurology clinic note Chief Complaint: Epilepsy. History or Present Illness: The patient is seen in followup today. She came by herself to clinic As noted earlier The patient is a 45-year-old, right-handed woman. She thinks she has a normal and early development. She had Uz[place] measles at 5 months with high fever. [...] follow-up here and received care locally in [facility]. In 2020 the patient returned for neurological F/U at [facility]. She reported ongoing seizure activity with mostly nocturnal events happening every few weeks to months. She has sustained numerous injuries including a subdural hematoma. She continues to be treated for HIV infection with somewhat variable viral loads in [place]. She says her headaches are doing quite [...] who follows her for HIV infection at [facility] reported improved adherence with medication, decreased [...] swallowing, which she did in the past As of 2022 the patient is doing about the same. It seems that she has a major seizure every few months. She says she is adherent to her medications, but Vimpat level at her last visit was quite low. HIV infection seems to be doing quite well, but she is complaining of a rash. She says she has not been drinking any significant amount of alcohol. She describes more difficulty swallowing. She would like to get another endoscopy. She continues to live by herself in [place]. Interval history: As situation remains quite complex She continues to have about 1 seizure per month. This is by her own account. She is living alone. There is doubt as to adherence with her medical regimen. She had an upper endoscopy and esophageal dilatation procedure a few months ago. However she is still complaining of dysphagia. I spoke with Brittanie Pina APRN who provides infectious disease care for the patient. The patient has been significantly anemic. She declined acute hospitalization. There is concern for bleeding source. She is going to get an upper endoscopy tomorrow. Past medical history: Patient Active Problem List [...] bladder function are unremarkable. Physical Examination: BP 127/78 (BP Location (NBP): Right arm, Patient Position: Sitting, BP Cuff Sizes: Adult (25-34 cm)) Pulse (!) 105 Ht 168.9 cm (5' 6.5) Wt 81.6 kg (180 lb) LMP 11/26/2010 SpO2 98% BMI 28.62 kg/m?? Head, eyes, ears, nose, and throat [...] (with Diff) Lacosamide Level Hemogram Differential, Automated No orders of the defined types were placed in this encounter. Impression: The patient appears to be doing [...] seems to be having 1 seizure every 1-2 months, perhaps more when she misses medications. Think she should stay on her present regimen. Owing to her recent severe anemia, I am not getting any blood tests here today. 2. Headaches seem somewhat improved . [...] 29/30 on the MMSE in 2021. 5. It is unclear why she is still anemic. She is going to get an upper endoscopy tomorrow. I will speak with Brittanie Pina APRN in follow-up. Thank you for this consultation. I will see her back in 6 months or sooner as needed. Satya Wills [place] [address] Pager: [phone], #[phone] Email: [email or web address] CC: Sarah Sheth documented in this encounter Plan of Treatment Upcoming Encounters Date Type Department Care Team (Late st Contact Info) Description 03/06/2024 1:30 PM EST [place] [address] Satya Wills MD [facility] [place] [address] documented as of this encounter Visit Diagnoses Diagnosis Partial epilepsy with impairment of consciousness, intractable Localization-related (focal) (partial) epilepsy and epileptic syndromes with complex partial seizures, with intractable epilepsy Subdural hematoma without coma with loss of consciousness, sequela Depression, recurrent Major depressive disorder, recurrent episode, unspecified Anxiety disorder, unspecified type documented in this encounter Care Teams 3D Designer Relationship Specialty Start Date End Date Sarah Alejo APRN [address] [address] PCP - General Internal Medicine 11/06/19 documented as of this encounter
--- OUTSIDE RECORDS SUMMARY | 2023-12-04 16:29 | XMS_ITS | Encounter Summary ---
Author Organization [facility] Address [place] [address] Care Team Providers Care District Gauger Name Role Phone Sarah Alejo APRN Primary Care Provider [phone] Encounter Details Date Type Department Care Team (Latest Contact Info) Description 04/20/2022 Travel Social History Tobacco Use Types Packs/Day Years Used Date Smoking Tobacco: Light Smoker Cigarettes Last attempted t o quit: 01/02/1985 Smokeless Tobacco: Never Comments:occasionally Alcohol Use Standard Drinks/Week Comments Yes 0 (1 standard drink = 0.6 oz pur e alcohol) occasionally Sex and Gender Information Value Date Recorded Sex Assigned at Not on file Gender Identity Not on file Sexual Orientation Not on file documented as of this encounter Plan of Treatment Upcoming Encounters Date Type Department Care Team (Late st Contact Info) Description 03/06/2024 1:30 PM EST [place] [address] Satya Wills MD [facility] [place] [address] documented as of this encounter Visit Diagnoses Not on filedocumented in this encounter Care Teams District Gauger Relationship Specialty Start Date End Date Sarah Alejo APRN [address] [place] [address] PCP - General Internal Medicine 11/06/19 documented as of this encounter
--- OUTSIDE RECORDS SUMMARY | 2023-12-04 16:29 | XMS_ITS | Encounter Summary ---
Author Organization [facility] Address [facility] [place] [address] Care Team Providers Care Coconut Jelly Roller Name Role Phone Gina Alejoyce Nancy MUNGUIA Primary Care Provider [phone] Reason for Visit * Reason Onset Date Comments Prior Authorization 03/16/2023 hydroxyzine Encounter Details Date Type Department Care Team (Late st Contact Info) Description 03/16/2023 [place] [address] Mary Jo Mixon LNA Prior Authorization (hydroxyzine) Social History Tobacco Use Types Packs/Day Years [...] encounter Miscellaneous Notes * Telephone Encounter - Deidre Crawford - 03/23/2023 9:45 PM EST Images from the original note were not included. THIS IS NOT A DENIAL OFF A PA. THIS IS A NEW YEAR NOTIFICATION THAT IT USE TO BE COVERED AND IS NO LONGER COVERED. NOW A PA WILL NEED TO BE STARTED TO TRY TO GET IT COVERED. * Telephone Encounter - Mary Jo Mixon LNA - 03/16/2023 1:05 PM EST Received denial letter for a hydroxyzine. PA not submitted by our department. See Media. documented in this encounter Plan of Treatment Upcoming Encounters Date Type Department Care Team (Late st Contact Info) Description 03/06/2024 1:30 PM EST [place] [address] Satya Wills MD [facility] [place] [address] documented as of this encounter Visit Diagnoses Not on filedocumented in this encounter Care Teams Coconut Jelly Roller Relationship Specialty Start Date End Date Sarah Alejo APRN [address] [place] [address] PCP - General Internal Medicine 11/06/19 documented as of this encounter
--- OUTSIDE RECORDS SUMMARY | 2023-12-04 16:29 | XMS_ITS | Encounter Summary ---
Author Organization [facility] Address [facility] [place] [address] Care Team Providers Care Academic Support Coordinator Name Role Phone MeloSarah APRN Primary Care Provider [phone] Encounter Details Date Type Department Care Team (Latest Contact Info) Description 10/24/2022 Travel Social History Tobacco Use Types Packs/Day [...] place to sleep or slept in a [place] facility (including now)? No 10/24/2022 Education Answer Date [...] 1:30 PM EST Office [place] [address] Satya Wills MD [facility] [place] [address] documented as of this encounter Visit Diagnoses Not on filedocumented in this encounter Care Teams Academic Support Coordinator Relationship Specialty Start Date End Date Sarah Alejo APRN [address] [place] [address] PCP - General Internal Medicine 11/06/19 documented as of this encounter
--- OUTSIDE RECORDS SUMMARY | 2023-12-04 16:29 | XMS_ITS | Encounter Summary ---
Author Organization [facility] Address [facility] [place] [address] Care Team Providers Care Light Armored Reconnaissance Officer Name Role Phone Sarah Alejo APRN Primary Care Provider [phone] Reason for Visit * Reason Onset Date Comments Medication Refill 03/23/2022 Encounter Details Date Type Department Care Team (Late st Contact Info) Description 03/23/2022 [place] [address] Satya Wills MD [facility] [place] [address] Partial epilepsy with impairment of consciousness, intractable; [...] encounter Miscellaneous Notes * Telephone Encounter - Davon Quan - 03/23/2022 9:26 AM EST Call Center / [place] Message Prescription Refill Request Clinical [place] message Provider patient sees in Clinic: Satya Wills Caller and relationship (if other than patient-full name): Patient Call back Number: [phone] Ok to leave a message: Yes Any issues needing to be addressed prior to medication refill? (ex: dose increase, not at pharmacy): [place] of Med: clonazePAM (KlonoPIN) 1 mg Tablet, Rapid Dissolve Strength of Pills: 1 mg Dosing Directions: 1 tablet by mouth 2 times daily How Patient is Currently Taking Medication: As prescribed 30 or 90 Day Supply: 90 Pharmacy: [id number] - [facility], [place] - [address] [facility] [facility] [address] [facility] [facility] [facility] [facility], [facility] [address] ?? Last Appointment: 10/18/21 Next Appointment: (IF CALL IS FROM PATIENT/FAMILY AND THERE IS NO FOLLOW UP SCHEDULED REVIEW CHART TO SEE WHEN APPOINTMENT IS NEEDED AND SCHEDULE BEFORE SENDING MESSAGE) 04/20/22 Is Patient out of Medication?: YES documented in this encounter Plan of Treatment Upcoming Encounters Date Type Department Care Team (Late st Contact Info) Description 03/06/2024 1:30 PM EST Office [place] [address] Satya Wills MD [facility] [place] [address] documented as of this encounter Visit Diagnoses Diagnosis Partial epilepsy with impairment of consciousness, intractable Localization-related (focal) (partial) epilepsy and epileptic syndromes with complex partial seizures, with intractable epilepsy Anxiety disorder, unspecified type documented in this encounter Care Teams Light Armored Reconnaissance Officer Relationship Specialty Start Date End Date Sarah Alejo APRN [address] [place] [address] PCP - General Internal Medicine 11/06/19 documented as of this encounter
--- OUTSIDE RECORDS SUMMARY | 2023-12-04 16:29 | XMS_ITS | Encounter Summary ---
Author Organization [facility] Address [facility] [place] [address] Care Team Providers Care In Home Baby Sitter Name Role Phone MeloShayye Nancy MUNGUIA Primary Care Provider [phone] Reason for Visit * Reason Onset Date Comments Medication Refill 10/26/2022 Encounter Details Date Type Department Care Team (Late st Contact Info) Description 10/26/2022 Refill Neurology at [facility] [place] [place] [address] Thuy Fagan V, RN Partial epilepsy with impairment of consciousness, intractable; [...] 1:30 PM EST Office [place] [address] Satya Wills MD [facility] [place] [address] documented as of this encounter Visit Diagnoses Diagnosis Partial epilepsy with impairment of consciousness, intractable Localization-related (focal) (partial) epilepsy and epileptic syndromes with complex partial seizures, with intractable epilepsy Anxiety disorder, unspecified type documented in this encounter Care Teams In Home Baby Sitter Relationship Specialty Start Date End Date Sraah Alejo APRN [address] [place] [address] PCP - General Internal Medicine 11/06/19 documented as of this encounter
--- OUTSIDE RECORDS SUMMARY | 2023-12-04 16:29 | XMS_ITS | Encounter Summary ---
Author Organization [facility] Address [facility] [place] [address] Care Team Providers Care Pompom Maker Name Role Phone Sarah Alejo EZRA Primary Care Provider [phone] Encounter Details Date Type Department Care Team (Late st Contact Info) Description 02/08/2023 Orders Only Gastroenterology at [facility] [place] [address] Antony Cordova MD [facility] [place] [address] Peptic stricture of esophagus Social History Tobacco Use Types Packs/Day Years [...] place to sleep or slept in a correction (including now)? No 10/24/2022 Education Answer Date [...] 1:30 PM EST Office [place] [address] Satya Wills MD [facility] [place] [address] Scheduled Orders Name Type Priority Associated Diagnoses Orde r Schedule ENDOSCOPY CASE REQUEST: EGD, UPPER GI ENDOSCOPY (WRVU 2.09) Procedures Routine Peptic stricture of esophagus Ordered: 02/08/2023 documented as of this encounter Visit Diagnoses Diagnosis Peptic stricture of esophagus Stricture and stenosis of esophagus documented in this encounter Care Teams Pompom Maker Relationship Specialty Start Date End Date Sarah Alejo APRN [address] [place] [address] PCP - General Internal Medicine 11/06/19 documented as of this encounter
--- OUTSIDE RECORDS SUMMARY | 2023-12-04 16:29 | XMS_ITS | Encounter Summary ---
Author Organization [facility] Address [facility] [place] [address] Care Team Providers Care Broadcasting Equipment Mechanic Name Role Phone Sarah Alejo APRN Primary Care Provider [phone] Reason for Visit * Reason Onset Date Comments Medication Refill 04/22/2022 Encounter Details Date Type Department Care Team (Late st Contact Info) Description 04/22/2022 [place] [address] Satya Wills MD [facility] [place] [address] Social History Tobacco Use Types Packs/Day Years [...] Miscellaneous Notes * Telephone Encounter - Deidre Hatch RN - 04/22/2022 9:19 AM EST PA denied, insurance requiring two different prescriptions documented in this encounter Plan of Treatment Upcoming Encounters Date Type Department Care Team (Late st Contact Info) Description 03/06/2024 1:30 PM EST Office [place] [address] Satya Wills MD [facility] [place] [address] documented as of this encounter Visit Diagnoses Not on filedocumented in this encounter Care Teams Broadcasting Equipment Mechanic Relationship Specialty Start Date End Date Sarah Alejo APRN [address] [place] [address] PCP - General Internal Medicine 11/06/19 documented as of this encounter
--- OUTSIDE RECORDS SUMMARY | 2023-12-04 16:29 | XMS_ITS | Encounter Summary ---
Author Organization [facility] Address [facility] [place] [address] Care Team Providers Care Leather Polisher Name Role Phone Sarah Alejo EZRA Primary Care Provider [phone] Encounter Details Date Type Department Care Team (Late st Contact Info) Description 02/08/2023 Telephone [place] [address] Antony Cordova MD [facility] [place] [address] Social History Tobacco Use Types Packs/Day Years [...] place to sleep or slept in a [facility] (including now)? No 10/24/2022 Education Answer Date [...] encounter Miscellaneous Notes * Telephone Encounter - Antony Cordova MD - 02/08/2023 10:23 AM EST I spoke with her PCP today. Weeks of vomiting and dysphagia. HCT is 20. Will have her try and come for an EGD. documented in this encounter Plan of Treatment Upcoming Encounters Date Type Department Care Team (Late st Contact Info) Description 03/06/2024 1:30 PM EST Office [place] [address] Satya Wills MD [facility] [place] [address] documented as of this encounter Visit Diagnoses Not on filedocumented in this encounter Care Teams Leather Polisher Relationship Specialty Start Date End Date Sarah Alejo APRN [address] [place] [address] PCP - General Internal Medicine 11/06/19 documented as of this encounter
--- OUTSIDE RECORDS SUMMARY | 2023-12-04 16:29 | XMS_ITS | Encounter Summary ---
Author Organization [facility] Address [facility] [place] [address] Care Team Providers Care Hospice Volunteer Name Role Phone MeloSarah APRN Primary Care Provider [phone] Encounter Details Date Type Department Care Team (Latest Contact Info) Description 09/04/2023 8:41 AM EDT - 09/04/2023 11:59 PM EDT Hospital Encounter Laboratory [facility] [place] [address] Discharge Disposition: Home Social History Tobacco Use [...] place to sleep or slept in a [facility] (including now)? No 10/24/2022 Education Answer Date Recorded What is the highest level of school you have completed or the highest degree you have received? Some college, no degree 10/24/2022 Sex and Gender Information Value Date Recorded Sex Assigned at Not on file Gender Identity Not on file Sexual Orientation Not on file documented as of this encounter Medications at Time of Discharge Medication Sig Dispensed Refills Start Date End Date Cabenuva 600 mg/3 mL- 900 mg/3 mL IM injection Inject 6 mLs into the muscle Every 8 Weeks. 07/03/2023 cyanocobalamin, Vitamin B-12, (Vitamin B-12) 1,000 mcg [...] for Pain. 60 tablet 5 03/02/2023 10/02/2023 lacosamide (Vimpat) 100 mg tabletIndications:Partial epilepsy with impairment of consciousness, intractable Take 1 tablet by mouth daily. 30 tablet 5 03/02/2023 09/14/2023 lacosamide (Vimpat) 200 mg tabletIndications:Partial epilepsy with impairment of consciousness, intractable Take 1 tablet by mouth nightly. 30 tablet 5 03/02/2023 09/14/2023 documented as of this encounter Plan of Treatment Upcoming Encounters Date Type Department Care Team (Late st Contact Info) Description 03/06/2024 1:30 PM EST [place] [address] Satya Wills MD [facility] [place] [address] documented as of this encounter Visit Diagnoses Not on filedocumented in this encounter Care Teams Hospice Volunteer Relationship Specialty Start Date End Date Sarah Alejo APRN [address] [place] [address] PCP - General Internal Medicine 11/06/19 documented as of this encounter
--- OUTSIDE RECORDS SUMMARY | 2023-12-04 16:29 | XMS_ITS | Encounter Summary ---
Author Organization [facility] Address [facility] [place] [address] Care Team Providers Care Drawstring Knotter Name Role Phone Sarah Alejo Nancy MUNGUIA Primary Care Provider [phone] Reason for Visit * Auth/Cert (Routine) Specialty Diagnoses / Procedures Referred By Jin t Referred To Contact Diagnoses Dysphagia, unspecified dysphagia Procedures PRO UPPER GI ENDOSCOPY, DIAGNOSTIC PRO UPPER GI ENDOSCOPY, BIOPSY PRO UP GI ENDOSCOPY, REMV TUMOR, SNARE PRO ANES, UGI ENDOSCOPY NOS EGD, UPPER GI ENDOSCOPY (WRVU 2.09) Antony Cordova MD [facility] [address] [facility] Referral ID Status Reason Start Date Expiration Date Visits Re quested Visits Authorized [id number] 1 1 Encounter Details Date Type Department Care Team (Latest Contact Info) Description 03/03/2023 11:54 AM EST - 03/03/2023 2:33 PM EST Hospital En[place] [address] Madan Sheth MD [facility] [place] [address] Discharge Disposition: Home Social History Tobacco Use [...] Sign Reading Time Taken Comments Blood Pressure 119/65 03/03/2023 2:10 PM EST Pulse 84 03/03/2023 12:05 PM EST Temperature 36 ??C (96.8 ??F) 03/03/2023 12:05 PM EST Respiratory Rate 18 03/03/2023 2:10 PM EST Oxygen Saturation 97% 03/03/2023 2:10 PM EST Inhaled Oxygen Concentration - - Weight 77.1 kg (170 lb) 03/03/2023 12:05 PM EST Height - - Body Mass Index 27.03 03/02/2023 3:11 PM EST documented in this encounter Discharge Instructions * Discharge Instructions* Zeynep Piedra RN - 03/03/2023 2:00 PM EST Upper GI Endoscopy: What to Expect at Home Your Recovery You will be able to go home after your doctor or nurse checks to make sure you are not having any problems. You may have to stay overnight if you had treatment during the test. You may have a sore throat fora day or two after the test. This care sheet gives you a general idea about what to expect after the test. How can you care for yourself at home? Activity Rest when you feel tired. You can do your normal activities when it feels okay to do so. Diet Follow your doctor's directions for eating. Unless your doctor has told you not to, drink plenty of fluids. This helps to replace the fluids that were lost during the prep. Do not drink alcohol. Medicines Your doctor will tell you if and when you can restart your medicines. He or she will also give you instructions about taking any new medicines. If you take blood thinners, such as warfarin (Coumadin), clopidogrel (Plavix), or aspirin, be sure to talk to your doctor. He or she will tell you if and when to start taking those medicines again. Make sure that you understand exactly what your doctor wants you to do. If polyps were removed or a biopsy was done during the test, your doctor may tell you not to take aspirin or other anti-inflammatory medicines for a few days. These include ibuprofen (Advil, Motrin) and naproxen (Aleve). If you have a sore throat the day after the procedure, use an fzme-cbw-hrvlupa spray to numb your throat. Sucking on throat lozenges and gargling with warm salt water may also help relieve your symptoms. Other instructions For your safety, do not drive or operate machinery until the medicine wears off and you can think clearly. Your doctor may tell you not to drive or operate machinery until the day after your test. Do not sign legal documents or make major decisions until the medicine wears off and you can think clearly. The anesthesia can make it hard for [...] you may be unsteady on your feet. You may eat a regular diet as tolerated. Do not smoke if you are alone. IV site: Slight redness or tenderness is normal, you can use a warm compress if you would like. If tenderness and/or redness increase or if foul drainage occurs, please contact your Doctor. Please call [phone] before 8pm Mon-Fri with problems, questions or concerns. If you call after 8pm or on weekends, call the Hospital at [phone] and ask to speak to the [employer] Business [employer] Developer monogram machine operator and the microfiche camera operator will contact that person for you. When should you call for help? Call [phone] anytime you think you may need emergency care. For example, call if: You passed out (lost consciousness). You pass maroon or bloody stools. You have trouble breathing. Call your doctor now or seek immediate medical care if: You have pain that does not get better after you take pain medicine. You are sick to your stomach or cannot drink fluids. You have new or worse belly pain. You have blood in your stools. You have a fever. You cannot pass stools or gas. Watch closely for changes in your health, and be sure to contact your doctor if you have any problems. Where can you learn more? [facility] View your After Visit Summary and more online at [email or web address] If you would like to provide feedback about your hospital experience, please call the Office of Patient and Family Relations at . If you have received this After Visit Summary in error, please immediately return it in person to the department, or notify the [facility] Privacy Office by calling toll free at between the hours of 8AM and 5PM to arrange for our retrieval of the documents at no cost to you. Content Version: 12.2 ?? 5951-4654 [employer]. Care instructions adapted under license by [facility]. If you have questions about a medical condition or this instruction, always ask your healthcare professional. [employer] disclaims any warranty or liability for your use of this information.Upper GI Endoscopy: What to Expect at Home Your Recovery You will be able to go home after your doctor or nurse checks to make sure you are not having any problems. You may have to stay overnight if you had treatment during the test. You may have a sore throat fora day or two after the test. This care sheet gives you a general idea about what to expect after the test. How can you care for yourself at home? Activity Rest when you feel tired. You can do your normal activities when it feels okay to do so. Diet Follow your doctor's directions for eating. Unless your doctor has told you not to, drink plenty of fluids. This helps to replace the fluids that were lost during the prep. Do not drink alcohol. Medicines Your doctor will tell you if and when you can restart your medicines. He or she will also give you instructions about taking any new medicines. If you take blood thinners, such as warfarin (Coumadin), clopidogrel (Plavix), or aspirin, be sure to talk to your doctor. He or she will tell you if and when to start taking those medicines again. Make sure that you understand exactly what your doctor wants you to do. If polyps were removed or a biopsy was done during the test, your doctor may tell you not to take aspirin or other anti-inflammatory medicines for a few days. These include ibuprofen (Advil, Motrin) and naproxen (Aleve). If you have a sore throat the day after the procedure, use an dtwg-qfo-ycdzibk spray to numb your throat. Sucking on throat lozenges and gargling with warm salt water may also help relieve your symptoms. Other instructions For your safety, do not drive or operate machinery until the medicine wears off and you can think clearly. Your doctor may tell you not to drive or operate machinery until the day after your test. Do not sign legal documents or make major decisions until the medicine wears off and you can think clearly. The anesthesia can make it hard for [...] you may be unsteady on your feet. You may eat a regular diet as tolerated. Do not smoke if you are alone. IV site: Slight redness or tenderness is normal, you can use a warm compress if you would like. If tenderness and/or redness increase or if foul drainage occurs, please contact your Doctor. Please call [phone] before 8pm Mon-Fri with problems, questions or concerns. If you call after 8pm or on weekends, call the Hospital at [phone] and ask to speak to the [employer] Business Intelligence Developer monogram machine operator and the microfiche camera operator will contact that person for you. When should you call for help? Call 911 anytime you think you may need emergency care. For example, call if: You passed out (lost consciousness). You pass maroon or bloody stools. You have trouble breathing. Call your doctor now or seek immediate medical care if: You have pain that does not get better after you take pain medicine. You are sick to your stomach or cannot drink fluids. You have new or worse belly pain. You have blood in your stools. You have a fever. You cannot pass stools or gas. Watch closely for changes in your health, and be sure to contact your doctor if you have any problems. Where can you learn more? [facility] View your After Visit Summary and more online at [email or web address] If you would like to provide feedback about your hospital experience, please call the Office of Patient and Family Relations at . If you have received this After Visit Summary in error, please immediately return it in person to the department, or notify the [facility] Privacy Office by calling toll free at between the hours of 8AM and 5PM to arrange for our retrieval of the documents at no cost to you. Content Version: 12.2 ?? 5434-7133 [employer]ined. Care instructions adapted under license by [facility]. If you have questions about a medical condition or this instruction, always ask your healthcare professional. [employer] disclaims any warranty or liability for your use of this information. documented in this encounter Medications at Time of Discharge Medication Sig Dispensed Refills Start Date End Date cyanocobalamin, Vitamin B-12, (Vitamin B-12) 1,000 mcg tablet Take 1 tablet by mouth Daily at Noon. 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 473 mL 5 03/02/2023 10/02/2023 clonazePAM (KlonoPIN) 1 mg disintegrating tabletIndications:Partial epilepsy with impairment of consciousness, intractable,Anxiety disorder, unspecified type Take 1 tablet by mouth 2 times daily. 60 tablet 03/02/2023 10/02/2023 meloxicam (Mobic) 7.5 mg tablet [...] mouth nightly. 30 tablet 5 03/02/2023 09/14/2023 potassium chloride (Kayciel) 20 mEq/15 mL Liquid Take 10 mEq by mouth daily. 11/14/2022 09/04/2023 sulfamethoxazole-trimetho prim (Bactrim) 200-40 mg/5 mL Suspension Take 10 mLs by mouth daily. 11/08/2022 09/04/2023 folic acid (Folvite) 1 mg Tablet Take 1 tablet by mouth daily. 100 tablet 3 04/20/2022 04/07/2023 tenofovir alafenamide (Vemlidy) 25 mg Tablet Take 1 tablet by mouth daily. 30 tablet 04/20/2021 09/04/2023 dolutegravir (Tivicay) 50 mg Tablet Twice a day 08/02/2018 09/04/2023 lamiVUDine (Epivir) 150 mg/15 mL Solution Take 150 mg by mouth 2 times daily. 09/04/2023 documented as of this encounter H&P Notes * Suhail Padilla MD - 03/03/2023 12:56 PM EST Gastroenterology and Hepatology Pre-Procedure History and Physical Exam Procedure: EGD, dilatation Indication: benign esophageal stricture Patient Active Problem [...] G43.109 EXAM: HEENT: Airway examined, oropharynx clear Mallampati Score: per anesthesia LUNGS: Clear to auscultation HEART: Regular rate and rhythm, normal S1, S2 ABDOMEN: Normal bowel sounds, soft, non tender, non distended A/P: Proceed with the planned endoscopic procedure. ASA 3 - Patient with moderate systemic disease with functional limitations Sedation Plan: anesthesia Risks and benefits of the procedure explained to the patient. Consent form signed and included in the patient's chart. Suhail Padilla MD Advanced Endoscopy Fellow Gastroenterology & Hepatology documented in this encounter Miscellaneous Notes * Op Note - Madan Sheth MD - 03/03/2023 1:28 PM EST Operative Note Patient Name: Josiane Pacheco : [id number] MR#: [id number] Case Date: 03/03/2023 Surgeon: Surgeon(s) and Role: * Madan Sheth MD - Primary Procedure(s): EGD-ESOPHOGEAL DILATATION OVER GUIDE WIRE (WRVU 2.91) EGD WITH BIOPSY (WRVU 2.39) Please see Provation report for details. documented in this encounter Plan of Treatment Upcoming Encounters Date Type Department Care Team (Late st Contact Info) Description 03/06/2024 1:30 PM EST [place] [address] Satya Wills MD [facility] [place] [address] documented as of this encounter Procedures Procedure Name Priority Date/Time Associated Diagnosis Comments SPECIMEN TO PATHOLOGY Routine 03/03/2023 1:45 PM EST SURGICAL PATHOLOGY REPORT Routine 03/03/2023 1:36 PM EST Upper Gi Endoscopy, Biopsy ([id number]) 03/03/2023 1:19 PM EST Peptic stricture of esophagus Up Gi Endoscopy, Dilatn W Guide ([id number]) 03/03/2023 1:19 PM EST Peptic stricture of esophagus UPPER GI ENDOSCOPY Routine 03/03/2023 1: 08 PM EST documented in this encounter Results * Specimen to Pathology (03/03/2023 1:45 PM EST) AP Specimen 03/03/2023 1:45 PM EST 03/03/2023 1:45 PM EST Narrative [facility] - 03/03/2023 1:45 PM EST Specimen requisition ordered. ??Separate Pathology report to follow Madan Sheth MD PATHOLOGY/CYTOLOGY O RDERABLES [facility] [place] [address] * Surgical Pathology Report (03/03/2023 1:36 PM EST) Final Diagnosis [id number] ? Location: 4T; EA06; A The signing pathologist has (i) examined the relevant preparation(s) for the specimen(s) and (ii) rendered or confirmed the diagnosis(es). . ?Surgical Pathology DIAGNOSIS Mid esophagus r/o EoE, biopsy (Multiple): Esophageal squamous mucosa with reactive changes. Electronically signed by: ?Leonard HALL, Meghana Verified: ??03/14/2023 19:21 ??Pathologist Performed at: ??-[facility] Dept. of Pathology, [place] [address] Dentofacial Orthopedics Dentist: Seth Denis MD, FCAP, ??CLIA Certificate: [id number] SPECIMEN(S) SUBMITTED A - mid esophagus r/o EoE, biopsy (Multiple) CLINICAL INFORMATION 67-year-old female with dysphagia SPECIMEN PROCESSING A - Labeled/Fixativ e: Mid esophagus rule out EOE, formalin. Quantity/Size: Fragments, 0.2 to 0.3 cm. Tissue Description: Soft, wispy, argueta-white tissues. Sections/Proces sing: Submitted in toto ??in 1 cassette labeled A1. ??pps 03/14/2023 7:21 PM EST [facility] GI Biopsy 03/03/2023 1:36 PM EST 03/03/2023 1:36 PM EST Madan Sheth MD PATHOLOGY/CYTOLOGY O RDERABLES [facility] [place] [address] [facility] [place] [address] * UPPER GI ENDOSCOPY (03/03/2023 1:08 PM EST) UPPER GI ENDOSCOPY [facility] Endoscopy ___ Procedure Date: 03/03/2023 1:08 PM ? Patient Name: Josiane Pacheco ? Date of : 1955 ? Age: 67 ? Order #: [id number] ? Instrument Name: [id number] ? ___ Procedure: ? Upper GI endoscopy Indications: ? Dysphagia, esophageal strictured ? dilated to 12 mm 10/2022 Providers: ? Suhail Jewell ? Emerita Padilla James A. ? Daniel Referring MD: ?Sarah Alejo Medicines: ? Propofol per Anesthesia Complications: ? No immediate complications. ___ Procedure: ? Pre-Anesthesia Assessment: ? - Prior to the procedure, a History ? and Physical was performed, and ? patient medications and allergies ? were reviewed. The patient is ? competent. The risks and benefits ? of the procedure and the sedation ? options and risks were discussed ? with the patient. All questions ? were answered and informed consent ? was obtained. Patient ? identification and proposed ? procedure were verified by the ? physician in the pre-procedure ? area. Mental Status Examination: ? alert and oriented. Airway ? Examination: normal oropharyngeal ? airway and neck mobility. ? Respiratory Examination: clear to ? auscultation. CV Examination: ? normal. Prophylactic Antibiotics: ? The patient does not require ? prophylactic antibiotics. Prior ? Anticoagulants: The patient has ? taken no anticoagulant or ? antiplatelet agents. ASA Grade ? Assessment: III - A patient with ? severe systemic disease. After ? reviewing the risks and benefits, ? the patient was deemed in ? satisfactory condition to undergo ? the procedure. The anesthesia plan ? was to use monitored anesthesia ? care (MAC). Immediately prior to ? administration of medications, the ? patient was re-assessed for ? adequacy to receive sedatives. The ? heart rate, respiratory rate, ? oxygen saturations, blood pressure, ? adequacy of pulmonary ventilation, ? and response to care were monitored ? throughout the procedure. The ? physical status of the patient was ? re-assessed after the procedure. ? The procedure, indications, ? benefits, risks and alternatives ? were explained to the patient. ? Specifically discussed were ? potential complications including, ? but not limited to, bleeding, ? perforation, infection, missing a ? cancer, and adverse medication ? reactions. The Endoscope was ? introduced through the mouth, and ? advanced to the second part of ? duodenum The patient tolerated the ? procedure well. ? Findings: ? Mild but diffuse narrowing of the proximal through ? mid esophageal lumen with subtle mucosal rings. A ? more significant benign appearing stenosis was ? encountered in the distal esophagus traversed after ? dilation. A guidewire was placed and the scope was ? withdrawn. Dilation was performed with a Savary ? dilator with moderate resistance at 12.8 mm. ? Biopsies were taken with a cold forceps in the mid ? esophagus for histology. ? Esophagogastric landmarks were identified: the Z-line ? was found at 39 cm, the gastroesophageal junction was ? found at 39 cm and the site of hiatal narrowing was ? found at 41 cm from the incisors. ? A 2 cm hiatal hernia was present. ? The examined duodenum was normal. ? Moderate Sedation: ? Not applicable - See Anesthesia documentation Impression: ?- Mild diffuse narrowing of the ? esophageal lumen with a more ? significant stenosis encountered in ? the distal esophagus, traversed ? after Savary dilation to 12.8 mm ? - 2 cm hiatal hernia. ? - Normal examined duodenum. ? - Biopsies were taken with a cold ? forceps for histology in the mid ? esophagus. Recommendation: ?- Discharge patient to home. ? - Resume previous diet. ? - Await pathology results. ? - Repeat upper endoscopy PRN for ? retreatment. ? Procedure Code(s): ? --- Professional --- ? 58835, Esophagogastroduode noscopy, ? flexible, transoral; with insertion ? of guide wire followed by passage ? of dilator(s) through esophagus ? over guide wire ? 75682, 59, ? Esophagogastroduode noscopy, ? flexible, transoral; with biopsy, ? single or multiple Diagnosis Code(s): ? --- Professional --- ? R13.10, Dysphagia, unspecified ? K44.9, Diaphragmatic hernia without ? obstruction or gangrene ? K22.2, Esophageal obstruction CPT copyright 202 [employer]. All rights reserved. The codes documented in this report are preliminary and upon interdisciplinary professor review may be revised to meet current compliance requirements. Attending Participation: ? I was present and participated during the entire ? procedure, including non-baldwin portions. ? Madan Sheth, 03/03/2023 2:01:13 PM Number of Addenda: 0 Note Initiated On: 03/03/2023 1:08 PM PROVATION 03/03/2023 1:08 PM EST Sarah Alejo APRN GENERAL SURGICAL ORD ERABLES [employer]ATION documented in this encounter Visit Diagnoses Not on filedocumented in this encounter Administered Medications Inactive Administered Medications - up to 3 most recent administrations Medication Order MAR Action Action Date Dose Rate Site lactated ringers infusion 100 mL/hr, Intravenous, CONTINUOUS, Starting on Mon03/03/23 at 1230, Until Mon03/03/23 at 1425, Endoscopy (Day of Procedure) Restarted 03/03/2023 1:52 PM EST New Bag 03/03/2023 12:30 PM EST 100 mL/hr 100 mL/hr documented in this encounter Active and Recently Administered Medications Times are shown in EST. Continuous Medication Order 03/01/2023 03/02/2023 03/03/2023 lactated ringers infusion (CANCELED) 100 mL/hr, Intravenous, CONTINUOUS, Starting on Mon03/03/23 at 1230, Until Mon03/03/23 at 1425, Endoscopy (Day of Procedure) 1230 (New Bag - Prov ider: Shannen Stokes RN)1351 (Paused - Provider: Willy Bragg CRNA - Comment: Switch to gravity)1352 (Restarted - Provider: Willy Bragg CRNA) documented in this encounter Care Teams Drawstring Knotter Relationship Specialty Start Date End Date Sarah Alejo APRN [address] [facility] [place] [address] PCP - General Internal Medicine 11/06/19 documented as of this encounter
--- OUTSIDE RECORDS SUMMARY | 2023-12-04 16:29 | XMS_ITS | Encounter Summary ---
Author Organization [facility] Address [facility] [place] [address] Care Team Providers Care Counselor Manager Name Role Phone Sarah Alejo EZRA Primary Care Provider [phone] Reason for Visit * Auth/Cert (Routine) Specialty Diagnoses / Procedures Referred By Jin t Referred To Contact Diagnoses Dysphagia, oral phase dysphagia Procedures PRO UPPER GI ENDOSCOPY, DIAGNOSTIC PRO UPPER GI ENDOSCOPY, BIOPSY PRO UP GI ENDOSCOPY, REMV TUMOR, SNARE PRO ANESTH, UGI ENDOSCOPY NOS PRO UP GI ENDOSCOPY, BALL DIL, 30MM EGD, UPPER GI ENDOSCOPY (WRVU 2.09) Antony Cordova MD [facility] [place] [address] [facility] Referral ID Status Reason Start Date Expiration Date Visits Re quested Visits Authorized [id number] 1 1 Encounter Details Date Type Department Care Team (Latest Contact Info) Description 11/22/2022 10:19 AM EDT - 11/22/2022 1:47 PM EDT Hospital En[place] [address] Antony Cordova MD [facility] [place] [address] Discharge Disposition: Home Social History Tobacco Use [...] place to sleep or slept in a custodial (including now)? No 10/24/2022 Education Answer Date [...] Sign Reading Time Taken Comments Blood Pressure 140/106 11/22/2022 12:50 PM EDT Pulse 92 11/22/2022 11:00 AM EDT Temperature 36.5 ??C (97.7 ??F) 11/22/2022 11:00 AM E DT Respiratory Rate 18 11/22/2022 12:50 PM EDT Oxygen Saturation 97% 11/22/2022 12:50 PM EDT Inhaled Oxygen Concentration - - Weight 89.8 kg (198 lb) 11/22/2022 11:00 AM EDT Height 168.9 cm (5' 6.5) 11/22/2022 11:00 AM ED T Body Mass Index 31.48 11/22/2022 11:00 AM EDT documented in this encounter Discharge Instructions * Discharge Instructions* Zeynep Piedra, RN - 11/22/2022 12:23 PM EDT Upper GI Endoscopy: What to Expect at [...] the day after the procedure, use an [id number] spray to numb your throat. Sucking on [...] occurs, please contact your Doctor. Please call [phone] before 8pm Mon-Fri with problems, questions or concerns. If you call after 8pm or on weekends, call the Hospital at [phone] and ask to speak to the Director Service application technician and the brake machine operator will contact that person for you. When should you call for help? Call [phone] anytime you think you may need emergency [...] any problems. Where can you learn more? [facility] View your After Visit Summary and more online at [email or web address] If you would like to provide feedback about your hospital experience, please call the Office of Patient and Family Relations at . If you have received this After Visit Summary in error, please immediately return it in person to the department, or notify the [facility] Privacy Office by calling toll free at between the hours of 8AM and 5PM to arrange for our retrieval of the documents at no cost to you. Content Version: 12.2 ?? [id number] [email or web address]. Care instructions adapted under license by [facility]. If you have questions about a medical condition or this instruction, always ask your healthcare professional. [employer] disclaims any warranty or liability for your use of this information. documented in this encounter Medications at Time of Discharge Medication Sig Dispensed Refills Start Date End Date potassium chloride (Kayciel) 20 mEq/15 mL Liquid Take 10 mEq by mouth daily. 11/14/2022 09/04/2023 sulfamethoxazole-trimetho prim (Bactrim) 200-40 mg/5 mL Suspension Take 10 mLs by mouth daily. 11/08/2022 09/04/2023 lacosamide (Vimpat) 200 mg tabletIndications:Partial epilepsy with impairment of consciousness, intractable Take 1 tablet by mouth nightly. 30 tablet 5 10/26/2022 03/02/2023 lacosamide (Vimpat) 100 mg tabletIndications:Partial epilepsy with impairment of consciousness, intractable Take 1 tablet by mouth every morning. 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 473 mL 5 10/26/2022 03/02/2023 clonazePAM (KlonoPIN) 1 mg disintegrating tabletIndications:Partial epilepsy with impairment of consciousness, intractable,Anxiety disorder, unspecified type Take 1 tablet by mouth 2 times daily. 60 tablet 5 10/26/2022 03/02/2023 meloxicam (Mobic) 7.5 mg tablet Take 1 tablet by mouth 2 times daily as needed for Pain. 60 tablet 5 10/26/2022 03/02/2023 folic acid (Folvite) 1 mg Tablet Take [...] as of this encounter H&P Notes * Antony Cordova MD - 11/22/2022 11:45 AM EDT PROBLEM LIST Patient Active Problem List Diagnosis Code Partial epilepsy with impairment of consciousness, intractable G40.219 HIV disease B20 Dyslipidemia E78.5 Migraine G43.909 Obesity E66.9 Depression F32.A Fissure in ano K60.2 Hemorrhoids K64.9 Gastro-esophageal [...] D deficiency E55.9 Migraine with aura G43.109 HISTORY OF PRESENT ILLNESS Josiane Pacheco is a 67 y.o. y/o who presents for EGD for dysphagia - has a history of hiatal herniaand has had a dilation in the past. MEDICATIONS No current facility-administered medications on file prior to encounter. Current Outpatient Medications on File Prior to Encounter Medication Sig Dispense Refill potassium chloride (Kayciel) 20 mEq/15 mL Liquid Take 10 mEq by mouth daily. sulfamethoxazole-trimethoprim (Bactrim) 200-40 mg/5 mL Suspension Take 10 mLs by mouth daily. lacosamide (Vimpat) 200 mg tablet Take 1 tablet by mouth nightly. 30 tablet 5 lacosamide (Vimpat) 100 mg tablet Take 1 tablet by mouth every morning. 30 tablet 5 hydrOXYzine (Atarax) 10 mg/5 mL Solution Take 5 mLs by mouth 3 times daily. 473 mL 5 clonazePAM (KlonoPIN) 1 mg disintegrating tablet Take 1 tablet by mouth 2 times daily. 60 tablet 5 meloxicam (Mobic) 7.5 mg tablet Take 1 tablet by mouth 2 times daily as needed for Pain. 60 tablet 5 folic acid (Folvite) 1 mg Tablet Take 1 tablet by mouth daily. 100 tablet 3 tenofovir alafenamide (Vemlidy) 25 mg Tablet Take 1 tablet by mouth daily. 30 tablet 0 dolutegravir (Tivicay) 50 mg Tablet Twice a day lamiVUDine (Epivir) 150 mg/15 mL Solution Take 150 mg by mouth 2 times daily. [DISCONTINUED] Multivitamins with Iron Tablet Take 1 tablet by mouth Daily. PHYSICAL EXAM: Blood pressure 120/90, pulse 92, temperature 36.5 ??C (97.7 ??F), resp. rate 20, height 168.9 cm (5' 6.5), weight 89.8 kg (198 lb), last menstrual period 11/26/2010, SpO2 95 %. GEN: Alert, cooperative. Pleasant. In NAD MP I ASA II HEENT: No oropharyngeal lesions. Neck supple. No masses. Thyroid symmetric LUNGS: CTAB CARD: RRR without m/g/r RECENT LABS No results found for this or any previous visit (from the past 24 hour(s)). ASSESSMENT AND PLAN Josiane Pacheco is a 67 y.o. y/o who presents for endoscopic evaluation. Risks extensively discussedincluding bleeding, infection, reaction to anesthesia, perforation, pancreatitis (if applicable), bile duct injury (if applicable), missing a cancer (if applicable) and/or other unforseen complication. Consent signed and patient well informed of the risks of the procedure. documented in this encounter Plan of Treatment Upcoming Encounters Date Type Department Care Team (Late st Contact Info) Description 03/06/2024 1:30 PM EST [place] [address] Satya Wills MD [facility] [address] [place]UROLOG[place] [address] documented as of this encounter Procedures Procedure Name Priority Date/Time Associated Diagnosis Comments Up Gi Endoscopy, Paul Blake, 30Mm ([id number]) 11/22/2022 11:53 AM EDT Oral phase dysphagia UPPER GI ENDOSCOPY Routine 11/22/2022 11 :41 AM EDT documented in this encounter Results * UPPER GI ENDOSCOPY (11/22/2022 11:41 AM EDT) Pathologist [facility] UPPER GI ENDOSCOPY [facility] Endoscopy Procedure Date: 11/22/2022 11:41 AM ? Patient Name: Josiane Pacheco ? Date of : 1955 ? Age: 67 ? Order #: [id number] ? Instrument Name: [id number] ? Procedure: ? Upper GI endoscopy Indications: ? Dysphagia Providers: ? Antony Cordova MD, Rafael Flowers. ? MEIR Leon, Alessia Harris Referring : ?Sarah Alejo Medicines: ? Monitored [...] the mouth, and ? advanced to the third part of ? duodenum The upper GI endoscopy was ? accomplished without difficulty. ? The patient tolerated the procedure ? well. ? Findings: ? The esophagus had a lead-pipe appearance to the ? distal esophagus where there was a 1 cm peptic ? stricture superior to a 2 cm hiatal hernia. This was ? a dilated with a 10-11-12 cm TTS balloon with a rent ? present following dilation. ? The stomach was normal with the exception of mild ? portal hypertensive gastropathy. ? The examined duodenum was normal. ? Moderate Sedation: ? Not applicable - See Anesthesia documentation Impression: ?- Peptic stricture - dilated Recommendation: ?- Follow expectantly ? - Start Prilosec OTC 20 mg daily ? Attending Participation: ? I personally performed the entire procedure. ? ___ Antony Cordova MD 11/22/2022 12:08:55 PM This report has been signed electronically. Number of Addenda: 0 Note Initiated On: 11/22/2022 11:41 AM PROVATION 11/22/2022 11:4 1 AM EDT Sarah Alejo APRN GENERAL SURGICAL ORD ERABLES [employer]OVATION documented in this encounter Visit Diagnoses Not on filedocumented in this encounter Active and Recently Administered Medications Times are shown in EDT. Continuous Medication Order 11/20/2022 11/21/2022 11/22/2022 lactated ringers infusion (CANCELED) 100 mL/hr, Intravenous, CONTINUOUS, Starting on Mon11/22/22 at 1115, Until Tu11/22/22 at 1257, Endoscopy (Intra-Procedure) 1152 (New Bag - Prov ider: Willy F Bragg, REEL STRIPPER)1203 (Anesthesia Volume Adjustment - Provider: Willy Bragg CRNA) documented in this encounter Care Teams Counselor Manager Relationship Specialty Start Date End Date Sarah Alejo, SOUND CONTROLLER [address] [place] [address] PCP - General Internal Medicine 11/06/19 documented as of this encounter
--- OUTSIDE RECORDS SUMMARY | 2023-12-04 16:29 | XMS_ITS | Encounter Summary ---
Author Organization [facility] Address [facility] [place] [address] Care Team Providers Care Clergy Member Name Role Phone MeloSarah APRN Primary Care Provider [phone] Encounter Details Date Type Department Care Team (Latest Contact Info) Description 03/02/2023 Travel Social History Tobacco Use Types Packs/Day [...] place to sleep or slept in a half-way (including now)? No 10/24/2022 Education Answer Date [...] 1:30 PM EST Office [place] [address] Satya Wills MD [facility] [place] [address] documented as of this encounter Visit Diagnoses Not on filedocumented in this encounter Care Teams Clergy Member Relationship Specialty Start Date End Date Sarah Alejo APRN [address] [place] [address] PCP - General Internal Medicine 11/06/19 documented as of this encounter
--- OUTSIDE RECORDS SUMMARY | 2023-12-04 16:29 | XMS_ITS | Encounter Summary ---
Author Organization [facility] Address [facility] [place] [address] Care Team Providers Care Shanker Out Name Role Phone Sarah Alejo APRN Primary Care Provider [phone] Encounter Details Date Type Department Care Team (Late st Contact Info) Description 04/20/2022 10:00 AM EST Office [place] [address] Satya Wills MD [facility] [place] [address] Partial epilepsy with impairment of consciousness, intractable; Subdural hematoma without coma with loss of consciousness, sequela; Partial epilepsy with impairment of consciousness, intractable; [...] Sign Reading Time Taken Comments Blood Pressure 120/90 04/20/2022 9:55 AM EST Pulse 76 04/20/2022 9:55 AM EST Temperature - - Respiratory Rate - - Oxygen Saturation - - Inhaled Oxygen Concentration - - Weight 91.6 kg (202 lb) 04/20/2022 9:55 AM EST Height 168.9 cm (5' 6.5) 04/20/2022 9:55 AM EST Body Mass Index 32.12 04/20/2022 9:55 AM EST documented in this encounter Patient Instructions * Patient Instructions* Satya Wills MD - 04/20/2022 10:00 AM EST I think you are doing about the same overall I am not sure we can fully control seizures but I think it is reasonable to try and increase the dose of lacosamide (Vimpat) so that you will take 1 pill in the morning and 2 pills at night. I have rewritten all your prescriptions to the new pharmacy Please continue all the medications that are currently on your list Please get blood test done here today. I would like to see you back in 6 months or sooner if necessary. Satya Wills MD Professor of neurology, [employer] at [facility] Department of Neurology, [address] Pager: [phone], #[phone] Email: [email or web address] documented in this encounter Progress Notes * Satya Wills MD - 04/20/2022 10:00 AM EST Neurology clinic note Chief Complaint: Epilepsy. History or Present Illness: The patient is seen in followup today. She came by herself to clinic As noted earlier The patient is a 45-year-old, right-handed woman. She thinks she has a normal and early development. She had Maltese measles at 5 months with high fever. [...] follow-up here and received care locally in [facility]. In 2020 the patient returned for neurological F/U at [facility]. She reported ongoing seizure activity with mostly nocturnal events happening every few weeks to months. She has sustained numerous injuries including a subdural hematoma. She continues to be treated for HIV infection with somewhat variable viral loads in [place]. She says her headaches are doing quite [...] who follows her for HIV infection at [facility] reported improved adherence with medication, decreased viral [...] She says she is adherent to her medications. HIV infection seems to be doing quite well. She says she has not been drinking any significant amount of alcohol. She continues to live by herself in [place]. Past medical history: Patient Active Problem List Diagnosis ??? HIV [...] persistent seizures. ??? Tubular adenoma of colon Review of systems: She is eating all right following esophageal dilatation. Sleep is disturbed by her bad dreams. Bowel and bladder function are unremarkable. Physical Examination: BP 120/90 (BP Location (NBP): Right arm, Patient Position: Sitting, BP Cuff Sizes: Adult (25-34 cm)) Pulse 76 Ht 168.9 cm (5' 6.5) Wt 91.6 kg (202 lb) LMP 11/26/2010 BMI 32.12 kg/m?? Head, eyes, ears, nose, and throat were normal. Lungs are noteworthy for some wheezing. Heart was normal. Extremities were unremarkable. Various skin lesions noted previously have largely resolved Her mood was good and her speech [...] Current Outpatient Medications Medication Sig Dispense Refill ??? Multivitamins with Iron Tablet Take 1 tablet by mouth Daily. ??? tenofovir alafenamide (Vemlidy) 25 mg Tablet Take 1 tablet by mouth daily. 30 tablet 0 ??? dolutegravir (Tivicay) 50 mg Tablet Twice a day ??? lamiVUDine (Epivir) 150 mg/15 mL Solution Take 150 mg by mouth 2 times daily. ??? clonazePAM (KlonoPIN) 1 mg Tablet, Rapid Dissolve Take 1 tablet by mouth 2 times daily. 60 tablet 5 ??? cyanocobalamin, Vitamin B-12, (Vitamin B-12) 1,000 mcg Tablet Take 1 tablet by mouth daily. 100tablet 3 ??? folic acid (Folvite) 1 mg Tablet Take 1 tablet by mouth daily. 100 tablet 3 ??? lacosamide (Vimpat) 100 mg Tablet Take 1 pill in a.m. and 2 pills in p.m. 90 tablet 5 ??? meloxicam (MOBIC) 7.5 mg Tablet Take 1 tablet by mouth 2 times daily as needed for Pain. 60 tablet 5 ??? hydrOXYzine (Atarax) 10 mg/5 mL Solution Take 5 mLs by mouth 3 times daily. 473 mL 5 No current facility-administered medications for this visit. Laboratory Studies: Blood tests unremarkable in 2020 ??? Lacosamide Level ??? Hepatic Function Panel ??? Basic Metabolic Panel (non-fasting) ??? CBC (with Diff) ??? TSH ??? T4 Total ??? Vitamin B12 ? ? Lyme IgG & IgM Antibody ??? Hemogram ??? Differential, Automated Lab tests unremarkable in 2020 except for borderline B12 level Procedures ??? Basic Metabolic Panel (non-fasting) ??? Hepatic Function Panel ??? CBC (with Diff) ??? Lacosamide Level ??? Hemogram ??? Differential, Automated Impression: The patient appears to be doing reasonably well 1. She had a temporal lobectomy for [...] mg. I am making no other change. 2. Headaches seem somewhat improved . She is needing less meloxicam. I would do nothing further. 3. She does appear to have a peripheral neuropathy that now appears to be stable. Her vitamin B12 level was borderline. I recommended that she take 1 mg by mouth daily. I also recommended that she continue drinking 16 ounces of tonic water nightly for nocturnal cramps. 4. Psychiatrically she looks somewhat better today, with less pressured speech and also somewhat more organized in her thinking. She scored 29/30 on the MMSE in 2021. 5. Other medical issues including the HIV infection and the esophagitis with esophageal stricture appear stable at present. Thank you for this consultation. I will see her back in 6 months or sooner as needed. Satya Wills MD [place] [address] Pager: [phone], #[phone] Email: [email or web address] CC: Sarah Myers documented in this encounter Plan of Treatment Upcoming Encounters Date Type Department Care Team (Late st Contact Info) Description 03/06/2024 1:30 PM EST Office [place] [address] Satya Wills MD [facility] [place] [address] documented as of this encounter Procedures Procedure Name Priority Date/Time Associated Diagnosis Comments HC VENIPUNCTURE Routine 04/20/2022 11:49 AM EST Partial epilepsy with impairment of consciousness, intractable Anxiety disorder, unspecified type HEMOGRAM Routine 04/20/2022 11:49 AM EST Partial epilepsy with impairment of consciousness, intractable Anxiety disorder, unspecified type DIFFERENTIAL, AUTOMATED Routine 04/20/2022 11:49 AM EST Partial epilepsy with impairment of consciousness, intractable Anxiety disorder, unspecified type HC CBC,PLT & AUTO DIFF Routine 04/20/2022 11:49 AM EST Partial epilepsy with impairment of consciousness, intractable Anxiety disorder, unspecified type HC THYROID STIMULATING HORMONE, SERUM Routine 04/20/2022 11:49 AM EST Partial epilepsy with impairment of consciousness, intractable Anxiety disorder, unspecified type HC TOTAL T4 Routine 04/20/2022 11:49 AM EST Partial epilepsy with impairment of consciousness, intractable Anxiety disorder, unspecified type HC VITAMIN B12 SERUM Routine 04/20/2022 11:49 AM EST Partial epilepsy with impairment of consciousness, intractable Anxiety disorder, unspecified type HEPATIC FUNCTION PANEL Routine 04/20/2022 11:49 AM EST Partial epilepsy with impairment of consciousness, intractable Anxiety disorder, unspecified type BASIC METABOLIC PANEL Routine 04/20/2022 11:49 AM EST Partial epilepsy with impairment of consciousness, intractable Anxiety disorder, unspecified type documented in this encounter Results * Differential, Automated (04/20/2022 11:49 AM EST) Neutrophil % 47.5 % [facility] Neutrophil Absolute 2.23 1.70 - 6.10 x10(3)/[facility] Lymph % 42.9 % [facility] Lymphocytes Abs 2.0 0.9 - 3.2 x10(3)/[facility] Monocyte % 6.2 % [facility] Monocyte Abs 0.3 0.3 - 0.9 x10(3)/[facility] Eos % 2.1 % [facility] Eosinophils Abs 0.1 0.0 - 0.4 x10(3)/[facility] Basophil % 1.1 % [facility] Baso Absolute 0.0 0.0 - 0.1 x10(3)/[facility] Immature Gran % 0.20 % [facility] Comment: Immature granulocytes(IG's)percentage and absolute count will include metamyelocytes, myelocytes, and promyelocytes. Blood smears from CBCs yielding IG's will be scanned manually for concordance. If this scan disagrees with the automated IG or if promyelocytes are noted, a manual differential will be performed. Immature Gran Absolute 0.01 0.00 - 0.04 x10(3)/mcL [facility] Blood 04/20/2022 11:4 9 AM EST 04/20/2022 11:56 AM EST Narrative Resulting Agency Comment Spec In Lab Satya Wills MD HEMATOLOGY ORDERABLE S Performing Organization Address City/[facility]/ZIP Co de Phone Number [facility] [place] [address] * (ABNORMAL) Hemogram (04/20/2022 11:49 AM EST) White Blood Cell 4.7 4.0 - 9.5 x10(3)/mc L [facility] Red Blood Cell 4.07 4.00 - 5.21 x10(6)/mc L [facility] Hemoglobin 14.7 11.7 - 15.5 g/dL [facility] Hematocrit 42.1 35.7 - 45.8 % [facility] Mean Cell Volume 103.4(H) 82.6 - 94.4 fL [facility] Mean Cell Hemoglobin 36.1(H) 27.1 - 32.0 pg [facility] Mean Cell Hemoglobin Concentration 34.9 31.7 - 35.0 g/dL [facility] Platelet 132(L) 145 - 357 x10(3)/mc L [facility] RDW Standard Deviation 48.1(H) 37.0 - 46.0 fL [facility] RDW coefficient of variation 12.8 11.5 - 14.1 % [facility] Mean Platelet Volume 8.5 7.6 - 12.9 fL [facility] NRBC% auto 0.0 % [facility] NRBC Absolute 0.000 0.000 - 0.000 x10(3)/mc L [facility] Blood 04/20/2022 11:4 9 AM EST 04/20/2022 11:56 AM EST Narrative Resulting Agency Comment Spec In Lab Satya Wills MD HEMATOLOGY ORDERABLE S Performing Organization Address City/[facility]/ZIP Co de Phone Number [facility] [place] [address] * T4 Total (04/20/2022 11:49 AM EST) T4 Total 5.4 5.3 - 11.6 mcg/dL [facility] Comment: Reference Interval (mcg/dL): Females: ??First Trimester: 6.3-13.5 ??Second Trimester: 7.1-14.3 ??Third Trimester: 6.9-14.1 Blood 04/20/2022 11:4 9 AM EST 04/20/2022 11:56 AM EST Narrative Resulting Agency Comment Spec In Lab Satya Wills MD CHEMISTRY ORDERABLES [facility] [place] [address] * TSH (04/20/2022 11:49 AM EST) Thyroid Stimulating Hormone 2.72 0.27 - 4.20 mcIU/mL [facility] Comment: Reference Interval (mcIU/mL): Females: ??First Trimester: 0.23-3.88 ??Second Trimester: 0.22-3.90 ??Third Trimester: 0.44-4.66 Blood 04/20/2022 11:4 9 AM EST 04/20/2022 11:56 AM EST Narrative Resulting Agency Comment Spec In Lab Satya Wills MD CHEMISTRY ORDERABLES Performing Organization Address City/[facility]/ZIP Co de Phone Number [facility] [place] [address] * Vitamin B12 (04/20/2022 11:49 AM EST) Vitamin B12 283 232 - 1,245 pg/mL [facility] Blood 04/20/2022 11:4 9 AM EST 04/20/2022 11:56 AM EST Narrative Resulting Agency Comment Spec In Lab Satya Wills MD CHEMISTRY ORDERABLES [facility] [place] [address] * (ABNORMAL) Lacosamide Level (04/20/2022 11:49 AM EST) Lacosamide Level (JUNE) <0.5(L) 1.0 - 10.0 mcg/mL [facility] Comment: ADDITIONAL INFORMATION This test was developed and its performance characteristics determined by [facility] in a manner consistent with CLIA requirements. This test has not been cleared or approved by the U.S. Food and Drug Administration. Test Performed by: [facility] [address] [place] [address] School Bus Driver/Teacher Assistant: Willy Khan M.D. Ph.D.; CLIA# [id number] Blood 04/20/2022 11:4 9 AM EST 04/20/2022 2:48 PM EST Narrative Resulting Agency Comment Spec In Lab Satya Wills MD LAB SEND OUT ORDERAB LES [facility] [place] [address] * Basic Metabolic Panel (non-fasting) (04/20/2022 11:49 AM EST) Glucose 90 65 - 199 mg/dL [facility] Comment:Diabetes: >=200 mg/d L plus symptoms Blood Urea Nitrogen 8 8 - 18 mg/dL [facility] Creatinine 0.86 0.70 - 1.20 mg/dL [facility] Sodium 140 135 - 145 mmol/L [facility] Potassium 4.0 3.5 - 5.0 mmol/L [facility] Comment: Please note: ??Patients with WBC >100,000 may have falsely elevated Potassium levels. ??For accurate Potassium quantification in these patients send serum separator tube (gold top) for subsequent determinations. ??Contact the Clinical Chemistry Laboratory if there are any questions. Chloride 105 98 - 107 mmol/L [facility] Carbon Dioxide 22 22 - 31 mmol/L [facility] Anion Gap 13 5 - 15 mmol/L [facility] Calcium 8.8 8.5 - 10.5 mg/dL [facility] Est Glomerular Filtration Rate 75 >=60 mL/min/1. 73 m?? [facility] Comment: This patient's estimated GFR [...] and symptoms in addition to eGFR. Blood 04/20/2022 11:4 9 AM EST 04/20/2022 11:56 AM EST Narrative Resulting Agency Comment Spec In Lab Satya Wills MD CHEMISTRY ORDERABLES Performing Organization Address [facility] Co de Phone Number [facility] [place] [address] * (ABNORMAL) Hepatic Function Panel (04/20/2022 11:49 AM EST) Protein, Total 6.8 6.1 - 8.0 g/dL [facility] Albumin 4.1 3.2 - 5.2 g/dL [facility] Aspartate Aminotransferase 46(H) 0 - 30 unit/L [facility] Alanine Aminotransferase 37(H) 0 - 30 unit/L [facility] Alkaline Phosphatase 53 35 - 105 unit/L [facility] Bilirubin, Total 0.4 0.2 - 1.3 mg/dL [facility] Bilirubin, Direct 0.1 0.0 - 0.3 mg/dL [facility] Blood 04/20/2022 11:4 9 AM EST 04/20/2022 11:56 AM EST Narrative Resulting Agency Comment Spec In Lab Satya Wills MD CHEMISTRY ORDERABLES Performing Organization Address City/[facility]/ZIP Co de Phone Number [facility] [place] [address] documented in this encounter Visit Diagnoses Diagnosis Partial epilepsy with impairment of consciousness, intractable Localization-related (focal) (partial) epilepsy and epileptic syndromes with complex partial seizures, with intractable epilepsy Subdural hematoma without coma with loss of consciousness, sequela Anxiety disorder, unspecified type documented in this encounter Care Teams Shanker Out Relationship Specialty Start Date End Date Sarah Alejo APRN [address] [place] [address] PCP - General Internal Medicine 11/06/19 documented as of this encounter
--- OUTSIDE RECORDS SUMMARY | 2023-12-04 16:29 | XMS_ITS | Encounter Summary ---
Author Organization [facility] Address [facility] [place] [address] Care Team Providers Care Continuous Process Tanner Rotary Drum Name Role Phone Gina Alejoyce Nancy MUNGUIA Primary Care Provider [phone] Encounter Details Date Type Department Care Team (Late st Contact Info) Description 09/07/2023 Telephone Gastroenterology at [facility] [place] [id number] Serena Lopez Social History Tobacco Use Types Packs/Day Years [...] place to sleep or slept in a fci (including now)? No 10/24/2022 Education Answer Date [...] encounter Miscellaneous Notes * Telephone Encounter - Serena Lopez - 09/07/2023 1:28 PM EDT Josiane Kinjal Junior [id number] Diagnosis/Indication: Dysphagia, esophageal strictured Please review patient chart to confirm if [...] had a/an Upper Endoscopy before? Yes: Date 03/03/23 If yes, did you have any problems with the procedure (such as waking up during the procedure, pain or difficulties afterwards, etc.)? No What type of sedation was used: General Anesthesia (ASK ONLY FOR COLONOSCOPY PROCEDURES) Are you aware, or have you ever been told that you had a poor prep or failed prep with a previous colonoscopy? No If yes, assign the Extended MiraLAX Prep (ASK ONLY FOR COLONOSCOPY PROCEDURES) Do you have an ongoing history of constipation? (E.g., hard stools, >2 days without a bowel movement, straining or difficulty passing stool) No If yes, assign the Extended MiraLAX Prep Do you take any blood thinners or have you been diagnosed with a bleeding disorder that increases your risk of bleeding with procedures? No Do you have a Pacemaker or Defibrillator device? If yes, send pool message to Cardiology with patient information and date or procedure. No Do you have diabetes? If yes, call PCP/managing provider to discuss use of prep and any questions or concerns related to. No If yes, assign the Extended MiraLAX Prep Do you take any iron supplements or [...] a period of time? No Do you regularly take prescription opioid pain medications on a daily basis? (Includes oxycodone, Percocet, Suboxone, methadone, etc.) Yes Clonazepam If yes, assign the Extended MiraLAX Prep SCHEDULING CONFIRMATIONS: Please note any and all [...] NEW referral patient; skip this question if DH GI provider ordered the procedure.) No Is there any other information or concerns you would like to us to share with your care team in relation to your upcoming scheduled procedure? No You must have a responsible democrat who will drive you to your procedure, stay on campus for the entire duration of your procedure, and drive you home from your procedure. Who will likely be your otr refrigerated cdl truck driver for the procedure? Please Verify the height and weight, and adjust if height and/or weight have changed Estimated body mass index is 28.62 kg/m?? as calculated from the following: Height as of 03/02/23: 168.9 cm (5' 6.5). Weight as of 09/04/23: 81.6 kg (180 lb). Age:68 y.o. documented in this encounter Plan of Treatment Upcoming Encounters Date Type Department Care Team (Late st Contact Info) Description 03/06/2024 1:30 PM EST Office [place] [address] Satya Wills MD [facility] [place] [address] documented as of this encounter Visit Diagnoses Not on filedocumented in this encounter Care Teams Continuous Process Tanner Rotary Drum Relationship Specialty Start Date End Date Sarah Alejo APRN [address] [place] [address] PCP - General Internal Medicine 11/06/19 documented as of this encounter
--- OUTSIDE RECORDS SUMMARY | 2023-12-04 16:29 | XMS_ITS | Encounter Summary ---
Author Organization [facility] Address [facility] [place] [address] Care Team Providers Care Tool Filer Hand Name Role Phone Sarah Alejo EZRA Primary Care Provider [phone] Encounter Details Date Type Department Care Team (Late st Contact Info) Description 11/15/2022 Orders Only Gastroenterology at [facility] [place] [address] Antony Cordova MD [facility] [place] [address] Oral phase dysphagia Social History Tobacco Use Types Packs/Day Years [...] 1:30 PM EST Office [place] [address] Satya Wills MD [facility] [place] [address] Scheduled Orders Name Type Priority Associated Diagnoses Orde r Schedule ENDOSCOPY CASE REQUEST: EGD, UPPER GI ENDOSCOPY (WRVU 2.09) Procedures Routine Oral phase dysphagia Ordered: 11/15/2022 documented as of this encounter Visit Diagnoses Diagnosis Oral phase dysphagia Dysphagia, oral phase documented in this encounter Care Teams Tool Filer Hand Relationship Specialty Start Date End Date Sarah Alejo APRN [address] [facility] [place] [place] [address] PCP - General Internal Medicine 11/06/19 documented as of this encounter
--- OUTSIDE RECORDS SUMMARY | 2023-12-04 16:29 | XMS_ITS | Encounter Summary ---
Author Organization [facility] Address [facility] [place] [address] Care Team Providers Care Compliance Advisor Name Role Phone Sarah Alejo EZRA Primary Care Provider [phone] Reason for Visit * Auth/Cert (Routine) Specialty Diagnoses / Procedures Referred By Jin t Referred To Contact Diagnoses Dysphagia, unspecified dysphagia Procedures PRO UPPER GI ENDOSCOPY, DIAGNOSTIC PRO UPPER GI ENDOSCOPY, BIOPSY PRO UP GI ENDOSCOPY, REMV TUMOR, SNARE PRO ANES, UGI ENDOSCOPY NOS EGD, UPPER GI ENDOSCOPY (WRVU 2.09) Antony Cordova MD [facility] [place] [address] [facility] Referral ID Status Reason Start Date Expiration Date Visits Re quested Visits Authorized [id number] 1 1 Encounter Details Date Type Department Care Team (Late st Contact Info) Description 03/03/2023 1:17 PM EST Anesthesia [place] [address] Domo Shrestha MD [facility] [place] [address] Hector Aguiar MD [facility] [place] [address] Anesthesia Record Procedure Summary Procedure Name Responsible Anesthesiologist Anesthesia Start Time Anesthesia Stop Time EGD-ESOPHOGEAL DILATATION OVER GUIDE WIRE (WRVU 2.91) (Trunk) Domo Shrestha MD 03/03/23 1317 03/03/23 1354 Events Date Time Event Comment 03/03/2023 1227 1317 Start 1317 An Start Data 1317 An Induction 1320 Anesthesia Ready 1331 AN Verify 1354 an stop data 1354 Recovery or ICU Handoff Lida ent care was transferred to the destination unit staff after review of the patient's medical history, current anesthetic/surgical status and plan, according to the Provider Handoff Checklist. 1354 Stop Meds Name Total Midazolam 2 mg fentaNYL 100 mcg IV Lidocaine 50 mg Propofol 50 mg Propofol INF 339.24 mg lactated ringers infusion 600 mL * Agents Name O2 Air N2O O2 Auxiliary Flowmeter 1 * Blood No blood administrations on file. Lines, Drains, and Airways Type Details Placement Removal PIV 03/03/23; 1222; [id number] catheter system; 22 gauge; median cubital vein (antecubital fossa), left; k heidi; 03/03/23; 1426 03/03/23 1222 by Shannen Stokes RN 03/03/23 1426 by Zeynep Piedra RN documented in this encounter Social History [...] OR Notes * Anesthesia Postprocedure Evaluation - Domo Shrestha MD - 03/03/2023 2:04 PM EST Department of Anesthesiology Post-procedure Note Patient: Josiane Pacheco Procedure Summary Date: 03/03/23 Room / Location: [facility] ENDO 3 / [facility] ENDOSCOPY Anesthesia Start: 1317 Anesthesia Stop: 1354 Procedures: EGD-ESOPHOGEAL DILATATION OVER GUIDE WIRE (WRVU 2.91) (Trunk) EGD WITH BIOPSY (WRVU 2.39) (Trunk) Diagnosis: Peptic stricture of esophagus (dysphagia) Surgeons: Madan Sheth MD Responsible Provider: Domo Shrestha MD Anesthesia Type: MAC ASA Status: 3 All Anesthesia Providers: Anesthesiologist: Domo Shrestha MD MASTER SCHEDULER: Willy Bragg CRNA Vitals Value Taken Time BP 125/74 03/03/23 1400 Temp Pulse Resp 18 03/03/23 1350 SpO2 99 % 03/03/23 1404 Pain Level 0 03/03/23 1350 Vitals shown include unfiled device data. Patient Location: PACU/[facility] Level of Consciousness: Awake and Alert Pain Management: Satisfactory Analgesia PONV: None Cardiovascular Status: At Baseline Respiratory Status: At Baseline Postoperative Fluid Status: Intravascular EUvolemia Possible Anesthetic Complications: NONE apparent at time of evaluation Final Primary Anesthesia Type: MAC (The anesthetic type performed was the same as planned.) Comments: * Anesthesia Preprocedure Evaluation - Domo Shrestha MD - 03/02/2023 8:40 PM EST Pre-Anesthesia Evaluation for: Josiane Pacheco a 67 y.o. female. Procedure(s): EGD, UPPER GI ENDOSCOPY (WRVU 2.09) Patient Active Problem List Diagnosis Date [...] DIAGNOSTIC performed by Antony Cordova MD at [facility] ENDOSCOPY ??? PRO ESOPHAGOSCOPY RIGID TRANSORAL BALLOON DILATION N/A 07/31/2015 ESOPHAGOSCOPY, TRANSORAL; WITH BALLOON DILATION <30MM performed by Ramesh Johnson MD at [facility] ENDOSCOPY ??? PRO ESOPHAGOSCOPY RIGID TRANSORAL BALLOON DILATION N/A 10/16/2015 ESOPHAGOSCOPY, TRANSORAL; WITH BALLOON DILATION <30MM performed by Ramesh Johnson MD at [facility] ENDOSCOPY ??? PRO UP GI ENDOSCOPY, BALL DIL, 30MM N/A 01/08/2016 EGD,WITH DILATION ESOPHAGUS WITH BALLOON,< 30 MM performed by Ramesh Johnson MD at [facility] ENDOSCOPY ??? PRO UP GI ENDOSCOPY, BALL DIL, 30MM N/A 01/14/2020 EGD,WITH DILATION ESOPHAGUS WITH BALLOON,< 30 MM (WRVU 2.77) performed by Johan Ovalle MD at [facility] ENDOSCOPY ??? PRO UP GI ENDOSCOPY, BALL DIL, 30MM N/A 02/05/2020 EGD,WITH DILATION ESOPHAGUS WITH BALLOON,< 30 MM (WRVU 2.77) performed by Johan Ovalle MD at [facility] ENDOSCOPY ??? PRO UP GI ENDOSCOPY, BALL DIL, 30MM N/A 04/21/2020 EGD,WITH DILATION ESOPHAGUS WITH BALLOON,< 30 MM (WRVU 2.77) performed by Antony Cordova [facility] ENDOSCOPY ??? PRO UP GI ENDOSCOPY, BALL DIL, 30MM N/A 11/22/2022 EGD,WITH DILATION ESOPHAGUS WITH BALLOON,< 30 MM (WRVU 2.67) performed by Antony Cordova [facility] ENDOSCOPY ??? PRO UPPER GI ENDOSCOPY, BIOPSY N/A 10/16/2015 UPPER GASTROINTESTINAL ENDOSCOPY,WITH BIOPSY SINGLE OR MULTIPLE performed by Ramesh Johnson MD at [facility] ENDOSCOPY ??? PRO UPPER GI ENDOSCOPY, BIOPSY N/A 01/08/2016 EGD WITH BIOPSY performed by Ramesh Johnson MD at [facility] ENDOSCOPY ??? PRO UPPER GI ENDOSCOPY, BIOPSY N/A 01/14/2020 EGD WITH BIOPSY (WRVU 2.49) performed by Johan Ovalle MD at [facility] ENDOSCOPY ??? PRO UPPER GI ENDOSCOPY, DIAGNOSTIC N/A 06/23/2015 EGD, UPPER GI ENDOSCOPY performed by Dejan Sykes MD at [facility] ENDOSCOPY Social History Tobacco Use ??? Smoking status: Former Packs/day: 0.00 Years: 35.00 Additional pack years: 0.00 Total pack years: 0.00 Types: Cigarettes Quit date: 08/26/2022 Years since quittin.5 ??? Smokeless tobacco: Never ??? Tobacco comments: occasionally Substance Use Topics ??? Alcohol use: Not Currently Comment: occasionally Social History Substance and Sexual Activity Drug Use No Allergies Allergen Reactions ??? Lamictal [Lamotrigine] Per patient very dizzy, double vision, and hard to keep walking. ??? Topiramate Itching Medications: MAR and/or home medications have been reviewed. Physical Exam: Preprocedure Vitals Current as of 03/02/232039 No BP, pulse, respiration, SpO2, or temperature recorded. Height: Weight: BMI: IBW: Airway Assessment: Mallampati: II TM distance: >3 FB Neck ROM: full Cardiovascular Assessment: Rhythm: regular Rate: normal Pulmonary Assessment: (+) decreased breath sounds Dental Assessment: Comment: Multiple missing teeth Misc Assessment: Last Filed Perioperative Cognitive Screening None Anesthesia Plan: ASA 3 MAC, with a(n) intravenous induction 67 y.o. 82kg female smoker with HIV on ART, HLD, intractible epilepsy s/p temporal lobectomy, GERD,EtOH abuse scheduled for upper endoscopy. Poor dentition Anesthetic History: Tolerated propofol for EGD without issue 10/2022 Allergies reviewed Labs reviewed NPO Status: Appropriate Anesthetic Plan: Propofol MAC Standard ASA monitoring Adequate PIV access Hector Aguiar MD 03/02/2023 Region - Other Informed Consent: Anesthetic plan and risks discussed with patient. Plan discussed with MASTER SCHEDULER. Anesthesia Screening documented in this encounter Plan of Treatment Upcoming Encounters Date Type Department Care Team (Late st Contact Info) Description 03/06/2024 1:30 PM EST Office [place] [address] Satya Wills MD [facility] [place] [address] documented as of this encounter Visit Diagnoses Not on filedocumented in this encounter Administered Medications Inactive Administered Medications - up to 3 most recent administrations Medication Order MAR Action Action Date Dose Rate Site fentaNYL (pf) (50 mcg/mL) multi-dose injection Intravenous, PRN, Starting on Mon03/03/23 at 1340, Until Mon03/03/23 at 1354, Anesthesia Intra-op, Routine Given 03/03/2023 1:40 PM EST 50 mcg Given 03/03/2023 1:34 PM EST 50 mcg lactated ringers infusion 100 mL/hr, Intravenous, CONTINUOUS, Starting on Mon03/03/23 at 1230, Until Mon03/03/23 at 1425, Endoscopy (Day of Procedure) Restarted 03/03/2023 1:52 PM EST New Bag 03/03/2023 12:30 PM EST 100 mL/hr 100 mL/hr lidocaine (pf) (Xylocaine) (20 mg/mL) 2% injection syringe Intravenous, PRN, Starting on Mon03/03/23 at 1318, Until Mon03/03/23 at 1354, Anesthesia Intra-op, Routine Given 03/03/2023 1:18 PM EST 50 mg midazolam (pf) (Versed) (1 mg/mL) multi-dose injection Intravenous, PRN, Starting on Mon03/03/23 at 1318, Until Mon03/03/23 at 1354, Anesthesia Intra-op, Routine Given 03/03/2023 1:18 PM EST 2 mg propofoL (Diprivan) (10 mg/mL) infusion Intravenous, CONTINUOUS PRN, Starting on Mon03/03/23 at 1318, Until Mon03/03/23 at 1354, Anesthesia Intra-op, Routine Rate/Dose Change 03/03/2023 1:39 PM EST 100 mcg/kg/min 46.26 mL/hr New Bag 03/03/2023 1:18 PM EST 200 mcg/kg/min 92.52 mL/ hr propofoL (Diprivan) 10 mg/mL bolus injection (Anesthesia) Intravenous, PRN, Starting on Mon03/03/23 at 1318, Until Mon03/03/23 at 1354, Anesthesia Intra-op Given 03/03/2023 1:18 PM EST 50 mg documented in this encounter Care Teams Compliance Advisor Relationship Specialty Start Date End Date Melo, Sarah A, CANE P[employer]ER [address] [address] PCP - General Internal Medicine 11/06/19 documented as of this encounter
--- OUTSIDE RECORDS SUMMARY | 2023-12-04 16:29 | XMS_ITS | Encounter Summary ---
Author Organization [facility] Address [facility] [place] [address] Care Team Providers Care Car Stower Name Role Phone Sarah Alejo APRN Primary Care Provider [phone] Encounter Details Date Type Department Care Team (Late st Contact Info) Description 11/16/2022 Telephone Gastroenterology at [facility] [place] [place] [phone] Fely Tomlinson Social History Tobacco Use Types Packs/Day [...] * Telephone Encounter - Fely Tomlinson - 11/16/2022 9:36 AM EDT Josiane Layton Pacheco [id number] Diagnosis/Indication: dysphagia Please review patient chart to [...] had a/an Upper Endoscopy before? Yes: Date 04/21/20 If yes, did you have any problems [...] iron supplements or vitamins that contain iron? Yes Multi Do you have a preference regarding the gender of your provider? Yes Art ANESTHESIA QUESTIONS (YES to any question, please [...] NEW referral patient; skip this question if [facility] provider ordered the procedure.) No Is there any other information or concerns you would like to us to share with your care team in relation to your upcoming scheduled procedure? No You must have a responsible constitution party who will drive you to your procedure, stay on campus for the entire duration of your procedure, and drive you home from your procedure. Who will likely be your otr flatbed driver for the procedure? *Please Verify the height and weight, and adjust if height and/or weight have changed* Estimated body mass index is 31.48 kg/m?? as calculated from the following: Height as of 10/24/22: 168.9 cm (5' 6.5). Weight as of 10/24/22: 89.8 kg (198 lb). *Patient must be scheduled for Anesthesia support if BMI is 40 or above* Age:67 y.o. documented in this encounter Plan of Treatment Upcoming Encounters Date Type Department Care Team (Late st Contact Info) Description 03/06/2024 1:30 PM EST Office [place] [address] Satya Wills MD [facility] [place] [address] documented as of this encounter Visit Diagnoses Not on filedocumented in this encounter Care Teams Car Stower Relationship Specialty Start Date End Date Sarah Alejo APRN [address] [address] PCP - General Internal Medicine 11/06/19 documented as of this encounter
--- OUTSIDE RECORDS SUMMARY | 2023-12-04 16:29 | XMS_ITS | Encounter Summary ---
Author Organization [facility] [place] [address] Care Team Providers Care Seamless Tube Drawer Name Role Phone Sarah Alejo EZRA Primary Care Provider [phone] Reason for Visit * Auth/Cert (Routine) Specialty Diagnoses / Procedures Referred By Jin t Referred To Contact Diagnoses Dysphagia, oral phase dysphagia Procedures PRO UPPER GI ENDOSCOPY, DIAGNOSTIC PRO UPPER GI ENDOSCOPY, BIOPSY PRO UP GI ENDOSCOPY, REMV TUMOR, SNARE PRO ANESTH, UGI ENDOSCOPY NOS PRO UP GI ENDOSCOPY, BALL DIL, 30MM EGD, UPPER GI ENDOSCOPY (WRVU 2.09) Antony Cordova MD [facility] [place] [address] [facility] Referral ID Status Reason Start Date Expiration Date Visits Re quested Visits Authorized [id number] 1 1 Encounter Details Date Type Department Care Team (Late st Contact Info) Description 11/22/2022 11:45 AM EDT - 11/22/2022 12:15 PM EDT Surgery [place] [address] Antony Cordova MD [facility] [place] [address] EGD,WITH DILATION ESOPHAGUS WITH BALLOON,< 30 MM (WRVU 2.67) Social History Tobacco Use Types Packs/Day Years [...] Sign Reading Time Taken Comments Blood Pressure 116/54 11/22/2022 12:10 PM EDT Pulse 92 11/22/2022 11:00 AM EDT Temperature 36.5 ??C (97.7 ??F) 11/22/2022 11:00 AM E DT Respiratory Rate 18 11/22/2022 12:10 PM EDT Oxygen Saturation 100% 11/22/2022 12:15 PM EDT Inhaled Oxygen Concentration - - [...] the day after the procedure, use an icsa-swd-jiissqk spray to numb your throat. Sucking on [...] occurs, please contact your Doctor. Please call [phone] before 8pm Mon-Fri with problems, questions or concerns. If you call after 8pm or on weekends, call the Hospital at [phone] and ask to speak to the Car Electronics Installer education diagnostician and the positive printer operator will contact that person for you. When should you call for help? Call [phone] anytime you think you may need emergency [...] any problems. Where can you learn more? [facility] View your After Visit Summary and more online at [email or web address] If you would like to provide feedback about your hospital experience, please call the Office of Patient and Family Relations at . If you have received this After Visit Summary in error, please immediately return it in person to the department, or notify the [facility] Privacy Office by calling toll free at between the hours of 8AM and 5PM to arrange for our retrieval of the documents at no cost to you. Content Version: 12.2 ?? 4723-2330 [employer]. Care instructions adapted under license by [facility]. If you have questions about a medical condition or this instruction, always ask your healthcare professional. [employer] disclaims any warranty or liability for your [...] 1:30 PM EST Office [place] [phone] Satya Wills MD [facility] [place] [address] documented as of this encounter Procedures Procedure Name Priority Date/Time Associated Diagnosis Comments Up Gi Endoscopy, Paul Blake, 30Mm ([id number]) 11/22/2022 11:53 AM EDT Oral phase dysphagia UPPER GI ENDOSCOPY Routine 11/22/2022 11 :41 AM EDT documented in this encounter Results * UPPER GI ENDOSCOPY (11/22/2022 11:41 AM EDT) Pathologist [facility] UPPER GI ENDOSCOPY [facility] Endoscopy Procedure Date: 11/22/2022 11:41 AM ? Patient Name: Josiane Pacheco ? N: [id number] ? Date of : 1955 ? Age: 67 ? Order #: [id number] ? Instrument Name: [id number] ? Procedure: ? Upper GI endoscopy Indications: ? Dysphagia Providers: ? Antony Cordova MD, Rafael Flowers. ? MEIR Leon, Alessia Kaminski MD: ?Sarah Alejo Medicines: ? Monitored Anesthesia [...] documented in this encounter Visit Diagnoses Diagnosis Oral phase dysphagia Dysphagia, oral phase documented in this encounter Active and Recently Administered Medications Times are shown in EDT. Continuous Medication Order 11/20/2022 11/21/2022 11/22/2022 lactated ringers infusion (CANCELED) 100 mL/hr, Intravenous, CONTINUOUS, Starting on Mon11/22/22 at 1115, Until Mon11/22/22 at 1257, Endoscopy (Intra-Procedure) 1152 (New Bag - Prov ider: Willy Bragg CRNA)1203 (Anesthesia Volume Adjustment - Provider: Willy Bragg CRNA) documented in this encounter Care Teams Seamless Tube Drawer Relationship Specialty Start Date End Date Sarah Alejo APRN [address] [place] [address] PCP - General Internal Medicine 11/06/19 documented as of this encounter
--- OUTSIDE RECORDS SUMMARY | 2023-12-04 16:29 | XMS_ITS | Encounter Summary ---
Author Organization [facility] Address [facility] [place] [address] Care Team Providers Care Patient Transporter Name Role Phone Sarah Alejo APRN Primary Care Provider [phone] Reason for Visit * Reason Onset Date Comments Prior Authorization 04/20/2022 Lacosamide 1 00MG tablets Encounter Details Date Type Department Care Team (Late st Contact Info) Description 04/20/2022 [place] [phone] Mary Ann Strong CMA Prior Authorization (Lacosamide 100MG tablets) Social History Tobacco Use Types Packs/Day Years [...] encounter Miscellaneous Notes * Telephone Encounter - Gem Rob CMA - 04/21/2022 3:57 PM ESTSummary: Denial - Lacosamide Images from the original note were not included. PA Outcome: PA Denial [place] [address] DENIED: lacosamide (Vimpat) 100 mg Tablet Case/Reference #: [id number] Additional Information from Insurance: Please see reason for denial below. Denial letter in media tab. * Telephone Encounter - Gem Rob CMA - 04/21/2022 7:29 AM EST Faxed to [facility] at [phone] * Telephone Encounter - Gem Rob CMA - 04/21/2022 7:25 AM ESTSummarvalentin: GABBI additional information Images from the original note were not included. 04/20/2022 Neurology note: * Telephone Encounter - Mary Ann Strong CMA - 04/20/2022 1:24 PM EST Medication Prior Authorization Patient: Josiane Pacheco Patient : 1955 Insurance Company: [employer] Sent via: [facility] Angel: BEEGBGHG Physician: Satya Wills MD Medication Requested: lacosamide (Vimpat) 100 mg Tablet Frequency/Sig: Take 1 pill in a.m. and 2 pills in p.m. Disp: 90 Refills: 5 Currently taking: yes If yes, how lon Diagnosis for this medication: Partial epilepsy with impairment of consciousness, intractable G40.219 Prior medications trialed in this patient: Medication: clobazam Approx Dates: 2013 Outcome/Adverse Reactions: Inadequate response Medication: lamotrigine Approx Dates: 6749-0421 Outcome/Adverse Reactions: Inadequate response Additional Notes: documented in this encounter Plan of Treatment Upcoming Encounters Date Type Department Care Team (Late st Contact Info) Description 03/06/2024 1:30 PM EST [place] [address] Satya Wills MD [facility] [place] [address] documented as of this encounter Visit Diagnoses Not on filedocumented in this encounter Care Teams Patient Transporter Relationship Specialty Start Date End Date Sarah Alejo APRN [address] [address] PCP - General Internal Medicine 11/06/19 documented as of this encounter
--- OUTSIDE RECORDS SUMMARY | 2023-12-04 16:29 | XMS_ITS | Encounter Summary ---
Author Organization [facility] [place] [address] Care Team Providers Care Assistant Professor Of Music Name Role Phone Sarah Alejo EZRA Primary Care Provider [phone] Reason for Visit * Auth/Cert (Routine) Specialty Diagnoses / Procedures Referred By Jin t Referred To Contact Diagnoses Dysphagia, unspecified dysphagia Procedures PRO UPPER GI ENDOSCOPY, DIAGNOSTIC PRO UPPER GI ENDOSCOPY, BIOPSY PRO UP GI ENDOSCOPY, REMV TUMOR, SNARE PRO ANES, UGI ENDOSCOPY NOS EGD, UPPER GI ENDOSCOPY (WRVU 2.09) Antony Cordova MD [facility] [place] [address] RUST Referral ID Status Reason Start Date Expiration Date Visits Re quested Visits Authorized [id number] 1 1 Encounter Details Date Type Department Care Team (Late st Contact Info) Description 03/03/2023 1:00 PM EST - 03/03/2023 1:30 PM EST [place] [address] Madan Sheth MD [facility] [place] [address] EGD-ESOPHOGEAL DILATATION OVER GUIDE WIRE (WRVU 2.91) Social History Tobacco Use Types Packs/Day Years [...] place to sleep or slept in a long-term (including now)? No 10/24/2022 Education Answer Date [...] Sign Reading Time Taken Comments Blood Pressure 141/93 03/03/2023 12:05 PM EST Pulse 84 03/03/2023 12:05 PM EST Temperature 36 ??C (96.8 ??F) 03/03/2023 12:05 PM EST Respiratory Rate 18 03/03/2023 12:05 PM EST Oxygen Saturation 98% 03/03/2023 12:05 PM EST Inhaled Oxygen Concentration - - [...] the day after the procedure, use an gymg-ahs-etonqwd spray to numb your throat. Sucking on [...] occurs, please contact your Doctor. Please call [phone] before 8pm Mon-Fri with problems, questions or concerns. If you call after 8pm or on weekends, call the Hospital at [phone] and ask to speak to the Chiropractic Physician loom control chain builder and the seaming machine operator will contact that person for you. When should you call for help? Call [phone] anytime you think you may need emergency [...] any problems. Where can you learn more? [facility] View your After Visit Summary and more online at [email or web address] If you would like to provide feedback about your hospital experience, please call the Office of Patient and Family Relations at . If you have received this After Visit Summary in error, please immediately return it in person to the department, or notify the [facility] Privacy Office by calling toll free at between the hours of 8AM and 5PM to arrange for our retrieval of the documents at no cost to you. Content Version: 12.2 ?? [phone] [employer]. Care instructions adapted under license by [facility]. If you have questions about a medical condition or this instruction, always ask your healthcare professional. [employer] disclaims any warranty or liability for your [...] the day after the procedure, use an ztom-bnw-gripsja spray to numb your throat. Sucking on [...] occurs, please contact your Doctor. Please call [phone] before 8pm Mon-Fri with problems, questions or concerns. If you call after 8pm or on weekends, call the Hospital at [phone] and ask to speak to the Chiropractic Physician loom control chain builder and the seaming machine operator will contact that person for you. When should you call for help? Call [phone] anytime you think you may need emergency [...] any problems. Where can you learn more? [facility] View your After Visit Summary and more online at [email or web address] If you would like to provide feedback about your hospital experience, please call the Office of Patient and Family Relations at . If you have received this After Visit Summary in error, please immediately return it in person to the department, or notify the [facility] Privacy Office by calling toll free at between the hours of 8AM and 5PM to arrange for our retrieval of the documents at no cost to you. Content Version: 12.2 ?? [phone] [employer]. Care instructions adapted under license by [facility]. If you have questions about a medical condition or this instruction, always ask your healthcare professional. [employer] disclaims any warranty or liability for your [...] Sheth MD - 03/03/2023 1:28 PM EST DH Operative Note Patient Name: Josiane SULTANA: [id number] MR#: [id number] Case Date: 03/03/2023 Surgeon: Surgeon(s) and Role: * Madan Sheth MD - Primary Procedure(s): EGD-ESOPHOGEAL DILATATION OVER GUIDE WIRE (WRVU 2.91) EGD WITH BIOPSY (WRVU 2.39) Please see Provation report for details. documented in this encounter Plan of Treatment Upcoming Encounters Date Type Department Care Team (Late st Contact Info) Description 03/06/2024 1:30 PM EST [place] [address] Satya Wills MD [facility] [place] [address] documented as of this encounter Procedures Procedure Name Priority Date/Time Associated Diagnosis Comments SPECIMEN TO PATHOLOGY Routine 03/03/2023 1:45 PM EST SURGICAL PATHOLOGY REPORT Routine 03/03/2023 1:36 PM EST Upper Gi Endoscopy, Biopsy (17422) 03/03/2023 1:19 PM EST Peptic stricture of esophagus Up Gi Endoscopy, Dilatn W Guide (50914) 03/03/2023 1:19 PM EST Peptic stricture of esophagus UPPER GI ENDOSCOPY Routine 03/03/2023 1: 08 PM EST documented in this encounter Results * Specimen to Pathology (03/03/2023 1:45 PM EST) AP Specimen 03/03/2023 1:45 PM EST 03/03/2023 1:45 PM EST Narrative [facility] - 03/03/2023 1:45 PM EST Specimen requisition ordered. ??Separate Pathology report to follow Madan Sheth MD PATHOLOGY/CYTOLOGY O RDERABLES [facility] [place] [address] * Surgical Pathology Report (03/03/2023 1:36 PM EST) Final Diagnosis [id number] ? Location: 4T; EA06; A The signing pathologist has (i) examined the relevant preparation(s) for the specimen(s) and (ii) rendered or confirmed the diagnosis(es). . ?Surgical Pathology DIAGNOSIS Mid esophagus r/o EoE, biopsy (Multiple): Esophageal squamous mucosa with reactive changes. Electronically signed by: ?Meghana Valle MD Verified: ??03/14/2023 19:21 ??Pathologist Performed at: ??-[facility] Dept. of Pathology, [place] [address] Senior Strategy Analyst: Seth Denis MD, FCAP, ??CLIA Certificate: [id number] SPECIMEN(S) SUBMITTED A - mid esophagus r/o EoE, biopsy (Multiple) CLINICAL INFORMATION 67-year-old female with dysphagia SPECIMEN PROCESSING A - Labeled/Fixativ e: Mid esophagus rule out EOE, formalin. Quantity/Size: Fragments, 0.2 to 0.3 cm. Tissue Description: Soft, wispy, argueta-white tissues. Sections/Proces sing: Submitted in toto ??in 1 cassette labeled A1. ??pps 03/14/2023 7:21 PM EST [facility] GI Biopsy 03/03/2023 1:36 PM EST 03/03/2023 1:36 PM EST Madan Sheht MD PATHOLOGY/CYTOLOGY O RDERABLES [facility] [place] [id number] [facility] [place] [address] * UPPER GI ENDOSCOPY (03/03/2023 1:08 PM EST) UPPER GI ENDOSCOPY [facility] Endoscopy ___ Procedure Date: 03/03/2023 1:08 PM ? Patient Name: Josiane Pacheco ? Date of : 1955 ? Age: 67 ? Order #: [id number] ? Instrument Name: [id number] ? ___ Procedure: ? Upper GI endoscopy Indications: ? Dysphagia, esophageal strictured ? dilated to 12 mm 10/2022 Providers: ? Madan M. Domenic, Suhail S. ? Emerita Padilla James A. ? Daniel [...] Procedure Code(s): ? --- Professional --- ? 17285, Esophagogastroduode noscopy, ? flexible, transoral; with insertion ? of guide wire followed by passage ? of dilator(s) through esophagus ? over guide wire ? 05584, 59, ? Esophagogastroduode noscopy, ? flexible, transoral; with biopsy, ? single or multiple Diagnosis Code(s): ? --- Professional --- ? R13.10, Dysphagia, unspecified ? K44.9, Diaphragmatic hernia without ? obstruction or gangrene ? K22.2, Esophageal obstruction CPT copyright 202 [employer]. All rights reserved. The codes documented in this report are preliminary and upon vehicle sales professional review may be revised to meet current [...] CRNA) documented in this encounter Care Teams Assistant Professor Of Music Relationship Specialty Start Date End Date Sarah Alejo APRN [address] [place] [address] PCP - General Internal Medicine 11/06/19 documented as of this encounter
--- OUTSIDE RECORDS SUMMARY | 2023-12-04 16:29 | XMS_ITS | Encounter Summary ---
Author Organization [facility] Address [facility] [place] [address] Care Team Providers Care Fire Operations Forester Name Role Phone Sarah Alejo Nancy MUNGUIA Primary Care Provider [phone] Reason for Visit * Reason Onset Date Comments Prior Authorization 01/03/2023 lacosamide ( Vimpat) 100 mg tablet Encounter Details Date Type Department Care Team (Late st Contact Info) Description 01/03/2023 [place] [phone] Diamond Waller CMA Prior Authorization (lacosamide (Vimpat) 100 mg tablet) Social History Tobacco Use Types Packs/Day Years [...] place to sleep or slept in a fpc (including now)? No 10/24/2022 Education Answer Date [...] encounter Miscellaneous Notes * Telephone Encounter - Diamond Waller CMA - 01/03/2023 2:24 PM EST Summary: PA not required Images from the original note were not included. Submitted Date: 01/03/2023 PA Outcome: PA Not Needed Per [employer] Medicare insurance: No PA required at this time. Medication:Lacosamide 100MG tablets Angel # [id number] Case # [id number] * Telephone Encounter - Diamond Waller CMA - 01/03/2023 2:17 PM EST Summary: PA PA Submitted Submitted Date: Date Submitted: 01/03/2023 Medication Prior Authorization Patient: Josiane Pacheco Patient : 1955 Insurance Company: [employer] Medicare Sent via: [facility] Angel: [id number] Physician: Satya Wills MD Medication Requested: lacosamide (Vimpat) 100 mg tablet Frequency/Sig: Take 1 tablet by mouth daily AND 2 tablets nightly Disp: 90 Refills: 5 Currently taking: yes If yes, how lon Diagnosis for this medication: Partial epilepsy with impairment of consciousness, 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] Prior medications trialed in this patient: Medication: Atarax 10mg/5mL Approx Dates: 11/2019-current Outcome/Adverse Reactions: Inadequate response Medication: Clonazepam 1mg Approx Dates: 04/2010-current Outcome/Adverse Reactions: Inadequate response Medication: Lamictal 200mg Approx Dates: 04/2010-02/2013 Outcome/Adverse Reactions: Inadequate response Additional Notes: documented in this encounter Plan of Treatment Upcoming Encounters Date Type Department Care Team (Late st Contact Info) Description 03/06/2024 1:30 PM EST [place] [address] Satya Wills MD [facility] [place] [address] documented as of this encounter Visit Diagnoses Not on filedocumented in this encounter Care Teams Fire Operations Forester Relationship Specialty Start Date End Date Sarah Alejo APRN [address] [place] [address] PCP - General Internal Medicine 11/06/19 documented as of this encounter
--- OUTSIDE RECORDS SUMMARY | 2023-12-04 16:29 | XMS_ITS | Encounter Summary ---
Author Organization [facility] Address [facility] [place] [address] Care Team Providers Care Plastics Fabrication Supervisor Name Role Phone Sarah Alejo EZRA Primary Care Provider [phone] Reason for Referral * Consultation (Routine) - Authorized Specialty Diagnoses / Procedures Referred By Jin hernandez Referred To Contact Gastroenterology Diagnoses Esophageal stricture Patient needs repeat esophageal dilatation procedure. ??Has been seen here before Satya Wills MD [facility] [place] [address] [facility] Endoscopy [address] [place] [address] Referral ID Status Reason Start Date Expiration Date Visits Requested Visits Authorized [id number] Authorized Consult, Test & Treat 09/04/2023 09/03/2024 1 1 Encounter Details Date Type Department Care Team (Late st Contact Info) Description 09/04/2023 1:00 PM EDT [place] [address] Satya Wills MD [facility] [place] [address] Partial epilepsy with impairment of consciousness, intractable; Esophageal stricture Social History Tobacco Use Types Packs/Day Years [...] place to sleep or slept in a senior care (including now)? No 10/24/2022 Education Answer Date [...] Sign Reading Time Taken Comments Blood Pressure 122/76 09/04/2023 12:33 PM EDT Pulse 71 09/04/2023 12:33 PM EDT Temperature - - Respiratory Rate - - Oxygen Saturation 95% 09/04/2023 12:33 PM EDT Inhaled Oxygen Concentration - - Weight 81.6 kg (180 lb) 09/04/2023 12:33 PM EDT Height - - Body Mass Index 28.62 03/02/2023 3:11 PM EST documented in this encounter Patient Instructions * Patient Instructions* Satya Wills MD - 09/04/2023 1:00 PM EDT I think you are doing about the same overall I am not sure we can fully control seizures. Please get blood test done here today. Based on the numbers we can try to adjust your doses of medication. I will call you after we have the results and we will renew your prescriptions on that basis I would like to see you back in 6 months or sooner if necessary. Satya Wills MD Professor of neurology, [employer] at [facility] Department of Neurology, [address] Pager: [phone], #[phone] Email: [email or web address] documented in this encounter Progress Notes * Satya Wills MD - 09/04/2023 1:00 PM EDT Neurology clinic note Chief Complaint: Epilepsy. History or Present Illness: The patient is seen in followup today. She came by herself to clinic As noted earlier The patient is a 45-year-old, right-handed woman. She thinks she has a normal and early development. She had Portuguese measles at 5 months with high fever. [...] follow-up here and received care locally in [facility]. In 2020 the patient returned for neurological F/U at [facility]. She reported ongoing seizure activity with mostly nocturnal events happening every few weeks to months. She has sustained numerous injuries including a subdural hematoma. She continues to be treated for HIV infection with somewhat variable viral loads in [place]. She says her headaches are doing quite [...] who follows her for HIV infection at [facility] reported improved adherence with medication, decreased viral [...] She continues to live by herself in [place]. Interval history: As situation remains quite complex She continues to have about 1 seizure per month. This is by her own account. She is living alone. There is doubt as to adherence with her medical regimen. She has been switched over to monthly injections for her anti-HIV regimen She had an upper endoscopy and esophageal dilatation procedure a few months ago. However she is still complaining of dysphagia. I spoke with Brittanie Pina APRN who provides infectious disease care for the patient. The patient has been significantly anemic. She declined acute hospitalization. There is concern for bleeding source. She had upper endoscopy that showed esophageal stricture but no obvious bleeding source. Past medical history: Patient Active Problem List [...] adenoma of colon Review of systems: She was eating all right following esophageal dilatation, but complains of symptoms again. Sleep isdisturbed by her bad dreams. Bowel and bladder function are unremarkable. Physical Examination: BP 122/76 Pulse 71 Wt 81.6 kg (180 lb) LMP 11/26/2010 SpO2 95% BMI 28.62 kg/m?? Head, eyes, ears, nose, and throat were normal. Lungs are noteworthy for some wheezing. Heart was normal. Extremities were unremarkable. There seem to be a variety of skin lesions including atopic dermatitis, what looked like viral warts, and some acneiform versus cellulitic lesions on the face. Her mood was good and her speech was normal. In 2021 she scored 29/30 on MMSE. At baseline [...] Current Outpatient Medications Medication Sig Dispense Refill Cabenuva 600 mg/3 mL- 900 mg/3 mL IM injection Inject 6 mLs into the muscle Every 8 Weeks. hydrOXYzine (Atarax) 10 mg/5 mL Solution Take 5 mLs by mouth 3 times daily. 473 mL 5 clonazePAM (KlonoPIN) 1 mg disintegrating tablet Take 1 tablet by mouth 2 times daily. 60 tablet 5 meloxicam (Mobic) 7.5 mg tablet Take 1 tablet by mouth 2 times daily as needed for Pain. 60 tablet 5 lacosamide (Vimpat) 100 mg tablet Take 1 tablet by mouth daily. 30 tablet 5 lacosamide (Vimpat) 200 mg tablet Take 1 tablet by mouth nightly. 30 tablet 5 cyanocobalamin, Vitamin B-12, (Vitamin B-12) 1,000 mcg tablet Take 1 tablet by mouth Daily at Noon. No current facility-administered medications for this visit. [...] Panel (non-fasting) CBC (with Diff) Lacosamide Level Miscellaneous Lab request Referral to Gastroenterology Impression: The patient appears to be doing [...] perhaps more when she misses medications. I am checking blood tests here today. We may want to increase the dose of lacosamide. 2. Headaches seem somewhat improved . She uses meloxicam occasionally. I do not know if it is contributing to GI bleeding. I would do nothing further. 3. She does appear to have a peripheral neuropathy that now appears to be stable. Her vitamin B12 level was borderline. I also recommended that she continue drinking 16 ounces of tonic water nightly for nocturnal cramps. 4. Psychiatrically she looks somewhat better today, with less pressured speech and also somewhat more organized in her thinking. She scored 29/30 on the MMSE in 2021. 5. She continues to complain of difficulties with swallowing. I am referring her back to GI. She may well need more esophageal dilatation Thank you for this consultation. I will see her back in 6 months or sooner as needed. Satya Wills MD [place] [address] Pager: [phone], #[phone] Email: [email or web address] CC: Sarah Sheth documented in this encounter Plan of Treatment Upcoming Encounters Date Type Department Care Team (Late st Contact Info) Description 03/06/2024 1:30 PM EST [place] [id number] Satya Wills MD [facility] [place] [address] Scheduled Referrals Name Type Priority Associated Diagnoses Order Schedule Referral to Gastroenterology Outpatient Referral Routine Esophageal stricture Ordered: 09/04/2023 documented as of this encounter Procedures Procedure Name Priority Date/Time Associated Diagnosis Comments MISCELLANEOUS LAB REQUEST Routine 09/04/2023 2:28 PM EDT Partial epilepsy with impairment of consciousness, intractable [facility] TEST-SIMPSON Routine 09/04/2023 2 :28 PM EDT LACOSAMIDE LEVEL Routine 09/04/2023 2:28 PM EDT Partial epilepsy with impairment of consciousness, intractable SCAN, PERIPHERAL BLOOD Routine 2:28 PM EDT HEMOGRAM Routine 09/04/2023 2:28 PM EDT Partial epilepsy with impairment of consciousness, intractable DIFFERENTIAL, AUTOMATED Routine 09/04/2023 2:28 PM EDT Partial epilepsy with impairment of consciousness, intractable CBC (WITH DIFF) Routine 09/04/2023 2:28 PM EDT Partial epilepsy with impairment of consciousness, intractable HEPATIC FUNCTION PANEL Routine 2:28 PM EDT Partial epilepsy with impairment of consciousness, intractable BASIC METABOLIC PANEL Routine 09/04/2023 2:28 PM EDT Partial epilepsy with impairment of consciousness, intractable documented in this encounter Results * [facility] Test-[place] (09/04/2023 2:28 PM EDT) [facility] Test ? Result ? Flag ??Unit ?? [...] developed and its performance ?characteristics determined by [facility]. ??It has not ?been cleared or approved by the US Food and Drug ?Administration. ?Digital data review may have taken place remotely by ?qualified [facility] staff utilizing a secure VPN connection ?for some or all of the reported results. This is in ?accordance with and follows CLIA regulations. ?Test Performed by: ?[facility] ?[address] ?[place] ??[id number] [facility] Blood Venous Draw / Unknown 09/04/2023 2:28 PM EDT 09/20/2023 2:52 PM EDT Narrative Resulting Agency Comment Spec In Lab Satya Wills MD LAB SEND OUT ORDERAB LES Performing Organization Address City/[facility]/ZIP Co de Phone Number [facility] [place] [address] * Scan, Peripheral Blood (09/04/2023 2:28 PM EDT) Pathologist [facility] Plat estimate Normal [facility] RBC Morphology Abnormal [facility] Macrocyte 6-10 /HPF [facility] Blood 09/04/2023 2:28 PM EDT 09/04/2023 2:55 PM EDT Narrative Resulting Agency Comment Spec In Lab Satya Wills MD HEMATOLOGY ORDERABLE S Performing Organization Address City/[facility]/ZIP Co de Phone Number [facility] [place] [address] * Differential, Automated (09/04/2023 2:28 PM EDT) Pathologist [facility] Neutrophil % 44.2 % [facility] Neutrophil Absolute 2.07 1.70 - 6.10 x10(3)/mcL [facility] Lymph % 45.5 % [facility] Lymphocytes Abs 2.1 0.9 - 3.2 x10(3)/[facility] Monocyte % 6.2 % [facility] Monocyte Abs 0.3 0.3 - 0.9 x10(3)/[facility] Eos % 2.6 % [facility] Eosinophils Abs 0.1 0.0 - 0.4 x10(3)/[facility] Basophil % 1.3 % [facility] Baso Absolute 0.1 0.0 - 0.1 x10(3)/[facility] Immature Gran % 0.20 % [facility] Comment: Immature granulocytes(IG's)percentage and absolute count will include metamyelocytes, myelocytes, and promyelocytes. Blood smears from CBCs yielding IG's will be scanned manually for concordance. If this scan disagrees with the automated IG or if promyelocytes are noted, a manual differential will be performed. Immature Gran Absolute 0.01 0.00 - 0.04 x10(3)/[facility] Blood 09/04/2023 2:28 PM EDT 09/04/2023 2:55 PM EDT Narrative Resulting Agency Comment Spec In Lab Satya Wills MD HEMATOLOGY ORDERABLE S Performing Organization Address City/State/[facility] Co de Phone Number [facility] [place] [address] * (ABNORMAL) Hemogram (09/04/2023 2:28 PM EDT) White Blood Cell 4.7 4.0 - 9.5 x10(3)/mc L [facility] Red Blood Cell 3.68(L) 4.00 - 5.21 x10(6)/mc L [facility] Hemoglobin 14.3 11.7 - 15.5 g/dL [facility] Hematocrit 40.4 35.7 - 45.8 % [facility] Mean Cell Volume 109.8(H) 82.6 - 94.4 fL [facility] Mean Cell Hemoglobin 38.9(H) 27.1 - 32.0 pg [facility] Mean Cell Hemoglobin Concentration 35.4(H) 31.7 - 35.0 g/dL [facility] Platelet 224 145 - 357 x10(3)/mc L [facility] RDW Standard Deviation 59.6(H) 37.0 - 46.0 fL [facility] RDW coefficient of variation 14.6(H) 11.5 - 14.1 % [facility] Mean Platelet Volume 8.6 7.6 - 12.9 fL [facility] NRBC% auto 0.0 % [facility] NRBC Absolute 0.000 0.000 - 0.000 x10(3)/mc L [facility] Blood 09/04/2023 2:28 PM EDT 09/04/2023 2:55 PM EDT Narrative Resulting Agency Comment Spec In Lab Satya Wills MD HEMATOLOGY ORDERABLE S Performing Organization Address City/[facility]/ZIP Co de Phone Number [facility] [place] [address] * Miscellaneous Lab request (09/04/2023 2:28 PM EDT) Label Request received in lab. [facility] Blood 09/04/2023 2:28 PM EDT 09/04/2023 2:42 PM EDT Narrative Resulting Agency Comment Spec In Lab Satya Wills MD LAB SEND OUT ORDERAB LES [facility] [place] [address] * Lacosamide Level (09/04/2023 2:28 PM EDT) Lacosamide Level (JUNE) 4.5 1.0 - 10.0 mcg/mL [facility] Comment: ADDITIONAL INFORMATION This test was developed and its performance characteristics determined by [facility] in a manner consistent with CLIA requirements. This test has not been cleared or approved by the U.S. Food and Drug Administration. Test Performed by: [facility] [address] [place] [address] Clinical Provider Trainer: Lorri Kate Ph.D.; CLIA# [id number] Blood 09/04/2023 2:28 PM EDT 09/05/2023 8:40 AM EDT Narrative Resulting Agency Comment Spec In Lab Satya Wills MD LAB SEND OUT ORDERAB LES [facility] [place] [address] * Basic Metabolic Panel (non-fasting) (09/04/2023 2:28 PM EDT) [facility] Glucose 88 65 - 199 mg/dL [facility] Comment:Diabetes: >=200 mg/d L plus symptoms Blood Urea Nitrogen 9 8 - 18 mg/dL [facility] Creatinine 0.97 0.70 - 1.20 mg/dL [facility] Sodium 139 135 - 145 mmol/L [facility] Potassium 3.9 3.5 - 5.0 mmol/L [facility] Comment: Please note: ??Patients with WBC >100,000 may have falsely elevated Potassium levels. ??For accurate Potassium quantification in these patients send serum separator tube (gold top) for subsequent determinations. ??Contact the Clinical Chemistry Laboratory if there are any questions. Chloride 101 98 - 107 mmol/L [facility] Carbon Dioxide 25 22 - 31 mmol/L [facility] Anion Gap 13 5 - 15 mmol/L [facility] Calcium 9.5 8.5 - 10.5 mg/dL [facility] Est Glomerular Filtration Rate 64 >=60 mL/min/1. 73 m?? [facility] Comment: This patient's estimated [...] In Lab Satya Wills MD CHEMISTRY ORDERABLES [facility] [place] [address] * (ABNORMAL) Hepatic Function Panel (09/04/2023 2:28 PM EDT) Protein, Total 7.6 6.1 - 8.0 g/dL [facility] Albumin 4.1 3.2 - 5.2 g/dL [facility] Aspartate Aminotransferase 36(H) 0 - 30 unit/L [facility] Alanine Aminotransferase 17 0 - 30 unit/L [facility] Alkaline Phosphatase 78 35 - 105 unit/L [facility] Bilirubin, Total 0.5 0.2 - 1.3 mg/dL [facility] Bilirubin, Direct 0.1 0.0 - 0.3 mg/dL [facility] Blood 09/04/2023 2:28 PM EDT 09/04/2023 2:55 PM EDT Narrative Resulting Agency Comment Spec In Lab Satya Wills MD CHEMISTRY ORDERABLES [facility] [place] [place] [address] documented in this encounter Visit Diagnoses Diagnosis Partial epilepsy with impairment of consciousness, intractable Localization-related (focal) (partial) epilepsy and epileptic syndromes with complex partial seizures, with intractable epilepsy Esophageal stricture Stricture and stenosis of esophagus documented in this encounter Care Teams Plastics Fabrication Supervisor Relationship Specialty Start Date End Date Sarah Alejo APRN [address] [place] [place] [address] PCP - General Internal Medicine 11/06/19 documented as of this encounter
--- OUTSIDE RECORDS SUMMARY | 2023-12-04 16:29 | XMS_ITS | Encounter Summary ---
Author Organization [facility] Address [facility] [place] [address] Care Team Providers Care Seconds Inspector Name Role Phone Sarah Alejo EZRA Primary Care Provider [phone] Reason for Visit * Reason Onset Date Comments Medication Refill 01/03/2023 Encounter Details Date Type Department Care Team (Late st Contact Info) Description 01/03/2023 [place] [address] Satya Wills MD [facility] [place] [address] Partial epilepsy with impairment of consciousness, intractable [...] Telephone Encounter - Alicia Velez RN - 01/03/2023 12:34 PM EST Prescription Renewal Request Name: Josiane Pacheco : 1955 Prescription(s) Requested: Requested Prescriptions Pending Prescriptions Disp Refills lacosamide (Vimpat) 100 mg tablet 90 tablet 5 Sig: Take 1 tablet by mouth daily AND 2 tablets nightly. Date of Last Encounter: 10/24/22 I recommended that she try increasing the dose of lacosamide from 100 mg twice daily to 100, 200 mg. I am making no other change. Her blood level of lacosamide was very low at her last visit. I am repeating that today. Next Encounter: 03/02/2023 Date of Last Refill: 10/26/22 Medication category requirements (labs etc): n/a Status of request: Pended Allergies Allergen Reactions Lamictal [Lamotrigine] Per patient very dizzy, double vision, and hard to keep walking. Topiramate Itching Alicia Velez RN 01/03/23 12:40 PM documented in this encounter Plan of Treatment Upcoming Encounters Date Type Department Care Team (Late st Contact Info) Description 03/06/2024 1:30 PM EST [place] [address] Satya Wills MD [facility] [place] [address] documented as of this encounter Visit Diagnoses Diagnosis Partial epilepsy with impairment of consciousness, intractable Localization-related (focal) (partial) epilepsy and epileptic syndromes with complex partial seizures, with intractable epilepsy documented in this encounter Care Teams Seconds Inspector Relationship Specialty Start Date End Date Sarah Alejo APRN [address] [facility] [place] [address] PCP - General Internal Medicine 11/06/19 documented as of this encounter
--- OUTSIDE RECORDS SUMMARY | 2023-12-04 16:29 | XMS_ITS | Encounter Summary ---
Author Organization [facility] Address [facility] [place] [address] Care Team Providers Care Kitchen Steward Name Role Phone MeloSarah APRN Primary Care Provider [phone] Encounter Details Date Type Department Care Team (Latest Contact Info) Description 09/04/2023 Travel Social History Tobacco Use Types Packs/Day [...] 1:30 PM EST Office [place] [address] Satya Wills MD [facility] [place] [address] documented as of this encounter Visit Diagnoses Not on filedocumented in this encounter Care Teams Kitchen Steward Relationship Specialty Start Date End Date Sarah Alejo APRN [address] [place] [address] PCP - General Internal Medicine 11/06/19 documented as of this encounter
--- OUTSIDE RECORDS SUMMARY | 2023-12-04 16:30 | XMS_ITS | Encounter Summary ---
Author Organization [facility] Address [facility] [place] [address] Care Team Providers Care Diesel Mechanic Apprentice Name Role Phone Sarah Alejo APRN Primary Care Provider [phone] Encounter Details Date Type Department Care Team (Latest Contact Info) Description 04/20/2021 Travel Social History Tobacco Use Types Packs/Day [...] 1:30 PM EST [place] [address] Satya Wills MD [facility] [place] [address] documented as of this encounter Visit Diagnoses Not on filedocumented in this encounter Care Teams Diesel Mechanic Apprentice Relationship Specialty Start Date End Date Sarah Alejo APRN [address] [place] [address] PCP - General Internal Medicine 11/06/19 documented as of this encounter
--- OUTSIDE RECORDS SUMMARY | 2023-12-04 16:30 | XMS_ITS | Encounter Summary ---
Author Organization [facility] Address [facility] [place] [address] Care Team Providers Care Auto Painter Helper Name Role Phone Sarah Alejo EZRA Primary Care Provider [phone] Encounter Details Date Type Department Care Team (Late st Contact Info) Description 12/13/2019 Telephone [facility]ology at [facility] [place] [address] Nikky Carr Social History Tobacco Use Types Packs/Day Years Used Date Smoking Tobacco: Every Day Cigarettes Smokeless Tobacco: Never Comments:3-4/ day Alcohol Use Standard Drinks/Week Comments No 0 (1 standard drink = 0.6 oz pur e alcohol) Sex and Gender Information Value Date Recorded Sex Assigned at Not on file Gender Identity Not on file Sexual Orientation Not on file documented as of this encounter Miscellaneous Notes * Telephone Encounter - Nikky Carr - 12/13/2019 1:45 PM EDT Josiane Pacheco [id number] Diagnosis/Indication: dyspgahia with Weight Loss, hx of esophageal stenosis 1. Have you ever had a/an Upper Endoscopy before? Yes: Date 12/2015 If yes, did you have any problems with the procedure? No What type of sedation was used: General Anesthesia 2. Do you take any Blood Thinners? No 3. Do you have a Pacemaker or Defibrillator device? No 4. Are you a diabetic? No 5. Do you have any Allergies to Eggs, Latex or Medications? Yes: E-DH 6. Do you take any Oral Iron Supplements (Including multi-vitamins)? Yes (Multivitamin) 7. Do you have a history of three or more abdominal surgeries? No 8. Have you had a problem with sedation or anesthesia? No 9. Do you have a c-pap machine or oxygen tank? Neither 10. Do you take prescription narcotic pain medications, including suboxone or methodone? No 11. Do you have a preference regarding the gender of your provider? No Preference 12. Is there any other information you would like to give us to aid in scheduling? No 13. Say to patient: You must have a responsible green party who will drive you to your procedure, stay [place] for the entire duration of your procedure, and drive you home from your procedure? *Please Verify the height and weight, and adjust if height and/or weight have changed* Estimated body mass index is 30.94 kg/m?? as calculated from the following: Height as of 07/13/16: 168.9 cm (5' 6.5). Weight as of 07/13/16: 88.3 kg (194 lb 9.6 oz). *Delete if not needed* Height: 5' 6.5 Weight: 150 BMI: 23.8 Age:64 y.o. documented in this encounter Plan of Treatment Upcoming Encounters Date Type Department Care Team (Late st Contact Info) Description 03/06/2024 1:30 PM EST Office [place] [address] Satya Wills MD [facility] [place] [address] documented as of this encounter Visit Diagnoses Not on filedocumented in this encounter Care Teams Auto Painter Helper Relationship Specialty Start Date End Date Sarah Alejo APRN [address] [place] [address] PCP - General Internal Medicine 11/06/19 documented as of this encounter
--- OUTSIDE RECORDS SUMMARY | 2023-12-04 16:30 | XMS_ITS | Encounter Summary ---
Author Organization [facility] Address [facility] [place] [address] Care Team Providers Care Clean Rice Broker Name Role Phone Sarah Alejo APRN Primary Care Provider [phone] Encounter Details Date Type Department Care Team (Late st Contact Info) Description 12/09/2019 Telephone [place] [phone] Deidre Escobar, [place] Social History Tobacco Use Types Packs/Day Years [...] Miscellaneous Notes * Telephone Encounter - Deidre Escobar - 12/09/2019 2:34 PM EDT documented in this encounter Plan of Treatment Upcoming Encounters Date Type Department Care Team (Late st Contact Info) Description 03/06/2024 1:30 PM EST Office [place] [address] Satya Wills MD [facility] [address] documented as of this encounter Visit Diagnoses Not on filedocumented in this encounter Care Teams Clean Rice Broker Relationship Specialty Start Date End Date Sarah Alejo, SHAPER MACHINE HAND [address] [place] [address] PCP - General Internal Medicine 11/06/19 documented as of this encounter
--- OUTSIDE RECORDS SUMMARY | 2023-12-04 16:30 | XMS_ITS | Encounter Summary ---
Author Organization [facility] Address [facility] [place] [address] Care Team Providers Care Promotions Executive Producer Name Role Phone Sarah Alejo APRN Primary Care Provider [phone] Encounter Details Date Type Department Care Team (Latest Contact Info) Description 02/05/2020 1:32 PM EST - 02/05/2020 4:21 PM EST Hospital Encounter [place] [phone] Johan Ovalle MD [facility] [place] [address] Discharge Disposition: Home Social History Tobacco Use Types Packs/Day Years Used Date Smoking Tobacco: Former Cigarettes Q uit: 01/02/1985 Smokeless Tobacco: Never Comments:3-4/ day Alcohol Use Standard Drinks/Week Comments Yes 1 (1 standard drink = 0.6 oz pur e alcohol) Sex and Gender Information Value Date Recorded Sex Assigned at Not on file Gender Identity Not on file Sexual Orientation Not on file documented as of this encounter Last Filed Vital Signs Vital Sign Reading Time Taken Comments Blood Pressure 116/80 02/05/2020 3:55 PM EST Pulse 67 02/05/2020 3:24 PM EST Temperature 36.3 ??C (97.4 ??F) 02/05/2020 1:47 PM ES T Respiratory Rate 18 02/05/2020 3:45 PM EST Oxygen Saturation 98% 02/05/2020 3:55 PM EST Inhaled Oxygen Concentration - - Weight - - Height - - Body Mass Index - - documented in this encounter Discharge Instructions * Patient Instructions* Johan Ovalle MD - 02/05/2020 3:43 PM EST Please see Recommendations in the Provation procedure report which is documented in the procedural note in E-DH. * Attachments The following attachments cannot be sent through Care Everywhere. * EGD (UPPER ENDOSCOPY): POST-OP (SAUDI ARABIAN) documented in this encounter Medications at Time of Discharge Medication Sig Dispensed Refills Start Date End Date Multivitamins with Iron Tablet Take 1 tablet by mouth Daily. 01/20/2020 11/22/2022 dolutegravir (Tivicay) 50 mg Tablet Twice a day 08/02/2018 09/04/2023 Lacosamide 10 mg/mL Solution Take 50 mg by mouth 2 times daily. 09/08/2020 lamiVUDine (Epivir) 150 mg/15 mL Solution Take 150 mg by mouth 2 times daily. 09/04/2023 hydrOXYzine (Atarax) 10 mg/5 mL Solution Take 25 mg by mouth 3 times daily. 09/29/2020 sulfamethoxazole-trimet hoprim (Sulfatrim) 200-40 mg/5 mL Suspension Take 10 mLs by mouth daily. 09/08/2020 clonazePAM (KlonoPIN) 1 mg Tablet, Rapid Dissolve Take 1 mg by mouth 2 times daily as needed. 09/08/2020 omeprazole (PriLOSEC) 20 mg Capsule, Delayed Release(E.C.) Take 1 capsule by mouth daily. 30 capsule 3 01/14/2020 09/08/2020 documented as of this encounter H&P Notes * Kimberly Parikh MD - 02/05/2020 1:47 PM EST Patient Name: Josiane Pacheco Patient Age: 64 y.o. Birthdate: 1955 Admit date: 02/05/2020 Attending Physician: Johan Ovalle MD PROBLEM LIST Patient Active Problem List Diagnosis Code ??? Partial epilepsy with impairment of consciousness, intractable G40.219 ??? HIV disease B20 ??? Dyslipidemia E78.5 ??? Migraine G43.909 ??? Obesity E66.9 ??? Depression F32.9 ??? Fissure in ano K60.2 ??? Hemorrhoids K64.9 ??? Gastro-esophageal reflux disease with esophagitis K21.00 ??? ETOH abuse F10.10 ??? Colon polyps K63.5 ??? Elevated liver enzymes R74.8 ??? Dermatitis L30.9 ??? Pruritus L29.9 HISTORY OF PRESENT ILLNESS Josiane Pacheco is a 64 y.o. woman with PMHx of GERD, HLD who presents for EGD for dilation. MEDICATIONS No current facility-administered medications on file prior to encounter. Current Outpatient Medications on File Prior to Encounter Medication Sig Dispense Refill ??? Lacosamide 10 mg/mL Solution Take 50 mg by mouth 2 times daily. ??? lamiVUDine (Epivir) 150 mg/15 mL Solution Take 150 mg by mouth 2 times daily. ??? hydrOXYzine (Atarax) 10 mg/5 mL Solution Take 25 mg by mouth 3 times daily. ??? sulfamethoxazole-trimethoprim (Sulfatrim) 200-40 mg/5 mL Suspension Take 10 mLs by mouth daily. ??? clonazePAM (KlonoPIN) 1 mg Tablet, Rapid Dissolve Take 1 mg by mouth 2 times daily as needed. ??? omeprazole (PriLOSEC) 20 mg Capsule, Delayed Release(E.C.) Take 1 capsule by mouth daily. 30 capsule 3 PHYSICAL EXAM: Last menstrual period 11/26/2010. GEN: Alert, cooperative. Pleasant. In NAD MP I ASA II HEENT: NCAT. Neck supple. LUNGS: Breathing comfortably on RA ABD: soft, NT/ND RECENT LABS No results found for this or any previous visit (from the past 24 hour(s)). ASSESSMENT AND PLAN Josiane Pacheco is a 64 y.o. y/o who presents for endoscopic evaluation. Risks extensively discussedincluding bleeding, infection, reaction to anesthesia, perforation, pancreatitis (if applicable), bile duct injury (if applicable), missing a cancer (if applicable) and/or other unforseen complication. Consent signed and patient well informed of the risks of the procedure. documented in this encounter Miscellaneous Notes * Op Note - Johan Ovalle MD - 02/05/2020 3:43 PM EST [facility] Operative Note Patient Name: Josiane Pacheco : [id number] MR#: [id number] Case Date: 02/05/2020 Surgeon: Surgeon(s) and Role: * Johan Ovalle MD - Primary * Kimberly Parikh MD - Fellow Preoperative diagnosis: Repeat upper endoscopy in 2 weeks for retreatment. Vasquez Postoperative diagnosis: * No post-op diagnosis entered * Procedure(s) (LRB): EGD,WITH DILATION ESOPHAGUS WITH BALLOON,< 30 MM (WRVU 2.77) (N/A) Anesthesia: MAC Full procedure note is documented under the Procedure section of eDH. documented in this encounter Plan of Treatment Upcoming Encounters Date Type Department Care Team (Late st Contact Info) Description 03/06/2024 1:30 PM EST Office [place] [address] Satya Wills MD [facility] [place] [address] documented as of this encounter Procedures Procedure Name Priority Date/Time Associated Diagnosis Comments Up Gi Endoscopy, Paul Blake, 30Mm ([id number]) 02/05/2020 2:51 PM EST Repeat upper endoscopy in 2 weeks for retreatment. Vasquez UPPER GI ENDOSCOPY Routine 02/05/2020 12 :37 PM EST documented in this encounter Results * UPPER GI ENDOSCOPY (02/05/2020 12:37 PM EST) UPPER GI ENDOSCOPY [facility] Endoscopy Procedure Date: 02/05/2020 12:37 PM ? Patient Name: Josiane Pacheco ? Date of : 1955 ? Age: 64 ? Order #: [id number] ? Instrument Name: [id number] ? Procedure: ? Upper GI endoscopy Indications: ? For therapy of esophageal stenosis Providers: ? Johan Ovalle MD, Kimberly Parikh, ? Juan Delatorre ? Daniel Referring : ?Sarah Cruz. Melo Medicines: ? Monitored Anesthesia Care Complications: ? No immediate complications. Procedure: ? Pre-Anesthesia Assessment: ? - Largo Protocol: ? - Pre-procedure Verification: Prior ? to the procedure, the patient's ? identity was verified by full name, ? date of and medical record ? number. The patient's identity was ? verified on all pertinent medical ? records, including History and ? Physical, nursing assessment and ? pre-anesthesia assessment. Also prior ? to the procedure, a History and ? Physical was performed, and patient ? medications, allergies and ? sensitivities were reviewed. The ? patient's tolerance of previous ? anesthesia was reviewed. The risks ? and benefits of the procedure and the ? sedation options and risks were ? discussed with the patient. All ? questions were answered and informed ? consent was obtained. ? - Marking: The endoscopic procedure ? was visually marked on a patient ? wrist band delineating the patient ? name, proposed procedure and ? endoscopist's initials. ? - Time-Out: Prior to the start of the ? procedure, the patient's ? identification, proposed procedure, ? accurate signed consent, correctly ? labeled images and records, and need ? for prophylactic antibiotics were ? verified by the physician, the nurse, ? the tool designer apprentice and the geotechnical field technician in ? the procedure room. ? The procedure, indications, benefits, ? risks and alternatives were explained ? to the patient. Specifically ? discussed were potential ? complications including, but not ? limited to, bleeding, perforation, ? infection, missing a cancer, and ? adverse medication reactions. The ? Endoscope was introduced through the ? mouth, and advanced to the second ? part of duodenum. The patient ? tolerated the procedure well. The ? upper GI endoscopy was accomplished ? without difficulty. The patient ? tolerated the procedure well. ? Findings: ? Benign-appearing, intrinsic moderate stenosis was ? found secondary to series of rings/webs from 25-36 cm ? with spontaneous mucosal sloughing. There wasn't much ? resistance to scope passage until the GE junction. ? The stenosis could not be traversed with the scope ? initially. The stenosis was traversed after dilation. ? A TTS dilator was passed through the scope. Dilation ? with a 12-13.5-15 mm balloon dilator was performed to ? 15 mm. There was an expected mucosal disruption ? without evidence of a perforation. ? A 4 cm hiatal hernia was present. ? The entire examined stomach was normal. ? Mild inflammation characterized by erythema was found ? in the duodenal bulb. ? The second portion of the duodenum was normal. ? Moderate Sedation: ? Not applicable - See Anesthesia documentation Impression: ?- Moderate distal esophageal stenosis ? secondary to a series of rings/webs ? s/p balloon dilation to 15mm. ? - 4 cm hiatal hernia. ? - Mild duodenitis. Recommendation: ?- Clear liquid diet today then ? advance to soft diet as tolerated. ? - Repeat EGD in 6 months or sooner ? prn. ? - The attending physician listed ? above was present for the entire ? procedure. ? Procedure Code(s): ?? --- Professional --- ? 02050, Esophagogastroduod enoscopy, ? flexible, transoral; with ? transendoscopic balloon dilation of ? esophagus (less than 30 mm diameter) Diagnosis Code(s): ?? --- Professional --- ? K22.2, Esophageal obstruction ? K29.80, Duodenitis without bleeding ? --- Technical --- ? K22.2, Esophageal obstruction ? K29.80, Duodenitis without bleeding CPT copyright 2019 [employer]. All rights reserved. The codes documented in this report are preliminary and upon chemistry quality control technician review may be revised to meet current compliance requirements. Attending Participation: ? I was present and participated during the entire ? procedure, including non-baldwin portions. ? _ Johan Ovalle MD 02/05/2020 3:42:45 PM This report has been signed electronically. Number of Addenda: 0 Note Initiated On: 02/05/2020 12:37 PM PROVATION 02/05/2020 12:3 7 PM EST Sarah Alejo APRN GENERAL SURGICAL ORD ERABLES PROVATION documented in this encounter Visit Diagnoses Not on filedocumented in this encounter Administered Medications Inactive Administered Medications - up to 3 most recent administrations Medication Order MAR Action Action Date Dose Rate Site lactated ringers infusion 100 mL/hr, Intravenous, CONTINUOUS, Starting on Mon02/05/20 at 1400, Until Mon02/05/20 at 1601, Endoscopy (Day of Procedure) New Bag 02/05/2020 2:12 PM EST 100 mL/hr 100 mL/hr documented in this encounter Active and Recently Administered Medications Times are shown in EST. Continuous Medication Order 02/03/2020 02/04/2020 02/05/2020 lactated ringers infusion (CANCELED) 100 mL/hr, Intravenous, CONTINUOUS, Starting on Mon02/05/20 at 1400, Until Mon02/05/20 at 1601, Endoscopy (Day of Procedure) 1412 (New Bag - Prov ider: Gene Nieves RN)1517 (Anesthesia Volume Adjustment - Provider: Kait Murguia CRNA) documented in this encounter Care Teams Promotions Executive Producer Relationship Specialty Start Date End Date Sarah Alejo APRN [address] [place] [address] PCP - General Internal Medicine 11/06/19 documented as of this encounter
--- OUTSIDE RECORDS SUMMARY | 2023-12-04 16:30 | XMS_ITS | Encounter Summary ---
Author Organization [facility] [place] [address] Care Team Providers Care Boot Turner Name Role Phone Sarah Alejo APRN Primary Care Provider [phone] Encounter Details Date Type Department Care Team (Late Contact Info) Description 04/06/2020 Telephone [place] [address] Alem Manuel Social History Tobacco Use Types Packs/Day Years [...] encounter Miscellaneous Notes * Telephone Encounter - Alem Manuel - 04/06/2020 3:12 PM EST Called pt to schedule a procedure. No answer so left a vm. If pt calls back please put to me. documented in this encounter Plan of Treatment Upcoming Encounters Date Type Department Care Team (Late st Contact Info) Description 03/06/2024 1:30 PM EST Office [place] [address] Satya Wills MD [facility] [place] [place] [address] documented as of this encounter Visit Diagnoses Not on filedocumented in this encounter Care Teams Boot Turner Relationship Specialty Start Date End Date Sarah Alejo, EZRA [address] [address] PCP - General Internal Medicine 11/06/19 documented as of this encounter
--- OUTSIDE RECORDS SUMMARY | 2023-12-04 16:30 | XMS_ITS | Encounter Summary ---
Author Organization [facility] Address [facility] [place] [address] Care Team Providers Care Seo Coordinator Name Role Phone Sarah Alejo APRN Primary Care Provider [phone] Encounter Details Date Type Department Care Team (Late st Contact Info) Description 01/14/2020 12:11 PM EST Anesthesia Event [place] [address] Noe Phipps MD [facility] [place] [address] Sierra Red CRNA [facility] [place] [address] Anesthesia Record Procedure Summary Procedure Name Responsible Anesthesiologist Anesthesia Start Time Anesthesia Stop Time EGD WITH BIOPSY (WRVU 2.39) (Trunk) Noe Phipps MD 01/14/20 1211 01/14/20 1245 Events Date Time Event Comment 01/14/2020 1211 1211 AN Verify 1211 Start 1211 An Start Data 1215 An Induction 1221 Anesthesia Ready 1245 an stop data 1245 Recovery or ICU Handoff Lida ent care was transferred to the destination unit staff after review of the patient's medical history, current anesthetic/surgical status and plan, according to the Provider Handoff Checklist. 1245 Stop Meds Name Total IV Lidocaine 60 mg Propofol 40 mg Propofol INF 211.37 mg Dexmedetomidine 4 mcg lactated ringers infusion 800 mL * Agents Name O2 Air N2O O2 Auxiliary Flowmeter 1 * Blood No blood administrations on file. Lines, Drains, and Airways Type Details Placement Removal (RETIRED) Peripheral IV Line - Single Lumen 01/14/20; 1058; median cubital vein (antecubital fossa), left; aist-bhf-svxlup catheter system; 22 gauge; Ester Cisse RN; appears comfortable; no longer indicated; 01/14/20; 1332 01/14/20 1058 by Gene Nieves RN 01/14/20 1332 by Rafael Leon RN documented in this encounter Social History [...] OR Notes * Anesthesia Postprocedure Evaluation - Noe Phipps MD - 01/14/2020 2:50 PM EST Department of Anesthesiology Post-procedure Note Patient: Josiane Pacheco Procedure Summary Date: 01/14/20 Room / Location: [facility] END[facility] 3 / [facility] Anesthesia Start: 1211 Anesthesia Stop: 1245 Procedures: EGD WITH BIOPSY (WRVU 2.49) (N/A Trunk) EGD,WITH DILATION ESOPHAGUS WITH BALLOON,< 30 MM (WRVU 2.77) (N/A ) Diagnosis: (Gastro-esophageal reflux disease with esophagitis, Esophageal obstruction) Surgeon: Johan Ovalle MD Responsible Provider: Noe Phipps MD Anesthesia Type: MAC ASA Status: 3 All Anesthesia Providers: Anesthesiologist: Noe Phipps MD CAFETERIA FOOD SERVER: Sierra Red CRNA Vitals Value Taken Time BP 98/68 01/14/20 1310 Temp Pulse Resp 19 01/14/20 1310 SpO2 100 % 01/14/20 1318 Pain Level 0 01/14/20 1310 Vitals shown include unvalidated device data. Patient Location: PACU/[facility] Level of Consciousness: Awake and Alert Pain Management: Satisfactory Analgesia PONV: None Cardiovascular Status: At Baseline and Hemodynamically Stable Respiratory Status: At Baseline and Room Air Postoperative Fluid Status: Intravascular EUvolemia Possible Anesthetic Complications: NONE apparent at time of evaluation Final Primary Anesthesia Type: MAC (The anesthetic type performed was the same as planned.) Comments: * Anesthesia Preprocedure Evaluation - Noe Phipps MD - 01/14/2020 7:31 AM EST Images from the original note were not included. Pre-Anesthesia Evaluation for: Josiane Pacheco a 64 y.o. female. Procedure(s): EGD, UPPER GI ENDOSCOPY Patient Active Problem List Diagnosis ??? HIV disease ??? Dermatitis ??? Pruritus ??? ETOH abuse intermittent Now in remission ??? Colon polyps Has had colonoscopy ??? Elevated liver enzymes Attributed to medications and alcohol. Doing well at present ??? Gastro-esophageal reflux disease with esophagitis Has had dilatation of stricture ??? Fissure in ano Treated topically ??? Hemorrhoids ??? Migraine Chronic headaches of various kinds, never fully controlled. Multiple imaging studies of the brain and lumbar punctures unrevealing ??? Obesity ??? Depression ??? Dyslipidemia ??? Partial epilepsy with impairment of consciousness, intractable Intractable epilepsy. Status post temporal lobectomy with persistent seizures. Past Medical History: Diagnosis Date ??? HIV disease 05/28/2010 Past Surgical History: Procedure Laterality Date ??? PRO ESOPHAGOSCOPY RIGID TRANSORAL BALLOON DILATION N/A 07/31/2015 ESOPHAGOSCOPY, TRANSORAL; WITH BALLOON DILATION <30MM performed by Ramesh Johnson MD at [facility] ENDOSCOPY ??? PRO ESOPHAGOSCOPY RIGID TRANSORAL BALLOON DILATION N/A 10/16/2015 ESOPHAGOSCOPY, TRANSORAL; WITH BALLOON DILATION <30MM performed by Ramesh Johnson MD at [facility] END[facility]COPY ??? PRO UP GI ENDOSCOPY, BALL DIL, 30MM N/A 01/08/2016 EGD,WITH DILATION ESOPHAGUS WITH BALLOON,< 30 MM performed by Ramesh Johnson MD at [facility] END[facility]COPY ??? PRO UPPER GI ENDOSCOPY, BIOPSY N/A 10/16/2015 UPPER GASTROINTESTINAL ENDOSCOPY,WITH BIOPSY SINGLE OR MULTIPLE performed by Ramesh Johnson MD at [facility] END[facility]COPY ??? PRO UPPER GI ENDOSCOPY, BIOPSY N/A 01/08/2016 EGD WITH BIOPSY performed by Ramesh Johnson MD at [facility] END[facility]COPY ??? PRO UPPER GI ENDOSCOPY, DIAGNOSTIC N/A 06/23/2015 EGD, UPPER GI ENDOSCOPY performed by Dejan Sykes MD at [facility] Social History Tobacco Use ??? Smoking status: Current Every Day Smoker Packs/day: 0.00 Years: 35.00 Pack years: 0.00 Types: Cigarettes ??? Smokeless tobacco: Never Used ??? Tobacco comment: 3-4/ day Substance Use Topics ??? Alcohol use: No Social History Substance and Sexual Activity Drug [...] >3 FB Neck ROM: full Cardiovascular Assessment: system normal Pulmonary Assessment: unlabored breathing Dental Assessment: - normal exam Misc Assessment: IV access: Peripheral line Anesthesia Plan: ASA 3 MAC, with a(n) intravenous induction 64 year old woman with a PMH of obesity, HLD, seizures, HIV, GERD and depression who presents for EGD for f/u from previous dilations Tolerated prior procedure with propofol sedation. Allergy: -- Lamictal (Lamotrigine) -- Per patient very dizzy, double vision, and hard to keep walking. -- Topiramate -- Itching BP Readings from Last 3 Encounters: 07/13/16 : 140/90 04/11/16 : 155/82 03/14/16 : 137/83 Labs: Lab Results Component Value Date WBC 4.32 (ExtL) 09/02/2016 HGB 13.4 09/02/2016 HCT 37.2 09/02/2016 MCV 100.8 (ExtH) 09/02/2016 PLATELET 145 09/02/2016 Lab Results Component Value Date NA 133 (ExtL) 09/02/2016 K 3.5 09/02/2016 CL 98 09/02/2016 CO2 23 09/02/2016 BUN 7 09/02/2016 CREATININE 0.75 09/02/2016 GLUCOSE 96 03/14/2016 CALCIUM 8.6 09/02/2016 ESTGFR >60 03/14/2016 Lab Results Component Value Date ALT 42 09/02/2016 AST 39 (ExtH) 09/02/2016 ALKPHOS 64 09/02/2016 BILITOT 0.37 09/02/2016 BILIDIR 0.1 03/14/2016 ALBUMIN 3.8 09/02/2016 PROT 7.8 09/02/2016 Lab Results Component Value Date TSH 2.56 08/27/2014 TT4 5.4 11/10/2015 No results found for: HA1C Glucose Lvl Date Value Ref Range Status 03/14/2016 96 65 - 199 mg/dL Final Comment: Diabetes: >=200 mg/dL plus symptoms NPO >4 METS No active GERD Plan: MAC with PIV access and standard ASA monitors. The patient was informed of the risks, benefits and alternatives of anesthesia. These risks included, but were not limited to, post-operative nausea and/or vomiting, pain, sore throat, dental/lip trauma, and other rare but serious complications such as major organ damage, awareness, severe allergicreactions, position-related nerve injuries, corneal abrasion/blindness and need blood transfusions.All questions were sought and answered. Consent was signed and placed in chart. Region - Other Informed Consent: Anesthetic plan and risks discussed with patient. Plan discussed with CAFETERIA FOOD SERVER. PAT Clinic Note documented in this encounter Plan of Treatment Upcoming Encounters Date Type Department Care Team (Late st Contact Info) Description 03/06/2024 1:30 PM EST Office [place] [address] Satya Wills MD [facility] [place] [place] [address] documented as of this encounter Visit Diagnoses Not on filedocumented in this encounter Administered Medications Inactive Administered Medications - up to 3 most recent administrations Medication Order MAR Action Action Date Dose Rate Site dexmedetomidine (PRECEDEX) injection PRN, Starting on Mon01/14/20 at 1221, Until Mon01/14/20 at 1245, Anesthesia Intra-op, Routine Given 01/14/2020 12:21 PM EST 4 mcg lidocaine (PF) (XYLOCAINE) 100 mg/5 mL (2 %) injection PRN, Starting on Mon01/14/20 at 1215, Until Mon01/14/20 at 1245, Anesthesia Intra-op, Routine Given 01/14/2020 12:15 PM EST 60 mg propofoL (Diprivan) 10 mg/mL bolus injection (Anesthesia) PRN, Starting on Mon01/14/20 at 1215, Until Mon01/14/20 at 1245, Anesthesia Intra-op Given 01/14/2020 12:15 PM EST 40 mg propofoL (Diprivan) infusion CONTINUOUS PRN, Starting on Mon01/14/20 at 1216, Until Mon01/14/20 at 1245, Anesthesia Intra-op, Routine New Bag 01/14/2020 12:16 PM EST 175 mcg/kg/min 70.5 mL/hr documented in this encounter Care Teams Seo Coordinator Relationship Specialty Start Date End Date Sarah Alejo, EZRA [address] [address] PCP - General Internal Medicine 11/06/19 documented as of this encounter
--- OUTSIDE RECORDS SUMMARY | 2023-12-04 16:30 | XMS_ITS | Encounter Summary ---
Author Organization [facility] Address [facility] [place] [address] Care Team Providers Care Barrel Roller Operator Name Role Phone Sarah Alejo EZRA Primary Care Provider [phone] Encounter Details Date Type Department Care Team (Latest Contact Info) Description 01/14/2020 1:46 PM EST - 01/14/2020 11:59 PM EST Hospital Encounter XRay at [address] [place] [address] Kimberly Parikh MD [facility] [place] [address] Chronic cough Discharge Disposition: Home Social History Tobacco Use [...] Sig Dispensed Refills Start Date End Date dolutegravir (Tivicay) 50 mg Tablet Twice a [...] 01/14/2020 09/08/2020 documented as of this encounter Plan of Treatment Upcoming Encounters Date Type Department Care Team (Late st Contact Info) Description 03/06/2024 1:30 PM EST [place] [address] Satya Wills MD [facility] [place] [address] documented as of this encounter Procedures Procedure Name Priority Date/Time Associated Diagnosis Comments XR CHEST PA AND LATERAL Routine 01/14/2020 2:19 PM EST Chronic cough documented in this encounter Results * XR Chest PA & Lateral (Generic) (01/14/2020 2:19 PM EST) Anatomical Region Laterality Modality Chest N/A Digital Radiogra phy Impressions 01/14/2020 3:29 PM EST No active cardiopulmonary bulge identified. If symptoms continue, with concern for radiographically occult pathology, consider more sensitive evaluation with CT. I have personally reviewed the image(s) and the resident's interpretation and agree with the findings, Vero Levin MD at 01/14/2020 3:29 PM Thank you for letting us participate in the care of this patient. For questions regarding this report, please contact the number below. ? Electronically signed by: Vero Levin MD, [facility] ([phone]), at 01/14/2020 3:29 PM Narrative 01/14/2020 3:29 PM EST EXAMINATION: XR CHEST PA AND LATERAL (GENERIC) CLINICAL HISTORY: Chronic cough TECHNIQUE: PA and lateral views of the chest COMPARISON: X-ray chest 06/09/2008 FINDINGS: Bilateral lungs are clear. Sharply marginated faint circular opacity projecting over the upper right hemithorax on the frontal view is consistent with a lead attachment site on the anterior chest wall, visible on the lateral projection. The cardiac silhouette, esperanza, pleura and pulmonary vasculature are within normal limits. No acute osseous process. Procedure Note Vero Levin MD - 01/14/2020 EXAMINATION: XR CHEST PA AND LATERAL (GENERIC) CLINICAL HISTORY: Chronic cough TECHNIQUE: PA and lateral views of the chest COMPARISON: X-ray chest 06/09/2008 FINDINGS: Bilateral lungs are clear. Sharply marginated faint circular opacityprojecting over the upper right hemithorax on the frontal view is consistent with alead attachment site on the anterior chest wall, visible on the lateralprojection. The cardiac silhouette, esperanza, pleura and pulmonary vasculature are withinnormal limits. No acute osseous process. IMPRESSION No active cardiopulmonary bulge identified. If symptoms continue, withconcern for radiographically occult pathology, consider more sensitive evaluationwith CT. I have personally reviewed the image(s) and the resident's interpretationand agree with the findings, Vero Levin MD at 01/14/2020 3:29 PM Thank you for letting us participate in the care of this patient. Forquestions regarding this report, please contact the number below. Electronically signed by: Vero Levin MD, [facility]([phone]), at 01/14/2020 3:29 PM Kimberly Parikh MD IMG DX ORDERABLES documented in this encounter Visit Diagnoses Diagnosis Chronic cough Cough documented in this encounter Care Teams Barrel Roller Operator Relationship Specialty Start Date End Date Sarah Alejo APRN [address] [place] [address] PCP - General Internal Medicine 11/06/19 documented as of this encounter
--- OUTSIDE RECORDS SUMMARY | 2023-12-04 16:30 | XMS_ITS | Encounter Summary ---
Author Organization [facility] Address [facility] [place] [address] Care Team Providers Care Rail Transportation Operator Name Role Phone Sarah Alejo APRN Primary Care Provider [phone] Encounter Details Date Type Department Care Team (Late st Contact Info) Description 02/05/2020 2:30 PM EST - 02/05/2020 3:30 PM EST Surgery [place] [phone] Johan Ovalle MD [facility] [place] [address] EGD,WITH DILATION ESOPHAGUS WITH BALLOON,< 30 MM [...] Sign Reading Time Taken Comments Blood Pressure 118/86 02/05/2020 3:30 PM EST Pulse 67 02/05/2020 3:24 PM EST Temperature 36.3 ??C (97.4 ??F) 02/05/2020 1:47 PM ES T Respiratory Rate 18 02/05/2020 3:30 PM EST Oxygen Saturation 99% 02/05/2020 3:30 PM EST Inhaled Oxygen Concentration - - [...] Care Everywhere. * EGD (UPPER ENDOSCOPY): POST-OP (PARAGUAYAN) documented in this encounter Medications at Time [...] Ovalle MD - 02/05/2020 3:43 PM EST [facility] [place] Patient Name: Josiane Pacheco : [id number] MR#: [id number] Case Date: 02/05/2020 Surgeon: Surgeon(s) and Role: [...] 1:30 PM EST Office [place] [address] Satya Wills MD [facility] [place] [address] documented as of this encounter Procedures Procedure Name Priority Date/Time Associated Diagnosis Comments Up Gi Endoscopy, Ball Dil, 30Mm ([id number]) 02/05/2020 2:51 PM EST Repeat upper endoscopy in 2 weeks for retreatment. Vasquez UPPER GI ENDOSCOPY Routine 02/05/2020 12 :37 PM EST documented in this encounter Results * UPPER GI ENDOSCOPY (02/05/2020 12:37 PM EST) UPPER GI ENDOSCOPY [facility] Endoscopy Procedure Date: 02/05/2020 12:37 PM ? Patient Name: Josiane Pacheco ? Date of : 1955 ? Age: 64 ? Order #: [id number] ? Instrument Name: [id number] ? Procedure: ? Upper GI endoscopy Indications: ? For therapy of esophageal stenosis Providers: ? Johan Ovalle MD, Kimberly Parikh, ? Juan Delatorre ? Daniel Kaminski MD: ?Sarah Alejo Medicines: ? Monitored Anesthesia Care Complications: ? No immediate complications. Procedure: ? Pre-Anesthesia Assessment: ? - Tippo Protocol: ? - Pre-procedure Verification: Prior ? [...] by the physician, the nurse, ? the nurse administrator and the x ray electronics wiring technician in ? the procedure room. ? [...] Procedure Code(s): ?? --- Professional --- ? 18253, Esophagogastroduod enoscopy, ? flexible, transoral; with ? transendoscopic balloon dilation of ? esophagus (less than 30 mm diameter) Diagnosis Code(s): ?? --- Professional --- ? K22.2, Esophageal obstruction ? K29.80, Duodenitis without bleeding ? --- Technical --- ? K22.2, Esophageal obstruction ? K29.80, Duodenitis without bleeding CPT copyright 2019 [employer]. All rights reserved. The codes documented in this report are preliminary and upon director of workforce development review may be revised to meet current compliance requirements. Attending Participation: ? I was present and participated during the entire ? procedure, including non-baldwin portions. ? _ Johan R Vasquez, MD 02/05/2020 3:42:45 PM This report has [...] CRNA) documented in this encounter Care Teams Rail Transportation Operator Relationship Specialty Start Date End Date Sarah Alejo APRN [address] [place] [address] PCP - General Internal Medicine 11/06/19 documented as of this encounter
--- OUTSIDE RECORDS SUMMARY | 2023-12-04 16:30 | XMS_ITS | Encounter Summary ---
Author Organization [facility] Address [facility] [place] [address] Care Team Providers Care Medical Secretary Teacher Name Role Phone Sarah Alejo EZRA Primary Care Provider [phone] Encounter Details Date Type Department Care Team (Latest Contact Info) Description 04/21/2020 10:20 AM EST - 04/21/2020 2:21 PM EST Hospital Encounter [place] [address] Antony Codrova MD [facility] [place] [address] Discharge Disposition: Home Social History Tobacco Use Types Packs/Day Years Used Date Smoking Tobacco: Former Cigarettes Q uit: 01/02/1985 Smokeless Tobacco: Never Comments:3-4/ day Alcohol Use Standard Drinks/Week Comments Not Currently 0 (1 standard drink = 0.6 oz pur e alcohol) Sex and Gender Information Value Date Recorded Sex Assigned at Not on file Gender Identity Not on file Sexual Orientation Not on file documented as of this encounter Last Filed Vital Signs Vital Sign Reading Time Taken Comments Blood Pressure 104/68 04/21/2020 2:00 PM EST Pulse 85 04/21/2020 10:41 AM EST Temperature 36.3 ??C (97.4 ??F) 04/21/2020 10:[address] Respiratory Rate 18 04/21/2020 2:00 PM EST Oxygen Saturation 99% 04/21/2020 2:00 PM EST Inhaled Oxygen Concentration - - Weight 61.2 kg (135 lb) 04/21/2020 10:41 AM EST Height - - Body Mass Index 21.46 01/14/2020 10:48 AM EST documented in this encounter Discharge Instructions * Attachments The following attachments cannot be sent through Care Everywhere. * EGD (Upper Endoscopy): Post-op (Maltese) * Colonoscopy: Post-op (Maltese) documented in this encounter Medications at Time of Discharge Medication Sig Dispensed Refills Start Date End Date Multivitamins with Iron Tablet Take 1 tablet by mouth Daily. 01/20/2020 11/22/2022 dolutegravir (Tivicay) 50 mg Tablet Twice a day 08/02/2018 09/04/2023 UNABLE TO FIND Med Name: vemlidy 25mg once daily 12/15/2020 UNABLE TO FIND Med Name: tivicay 50mg twice daily 09/08/2020 meloxicam (MOBIC) 7.5 mg Tablet Take 7.5 mg by mouth daily. 10/18/2021 folic acid (Folvite) 1 mg Tablet Take 1 mg by mouth daily. 04/20/2022 Lacosamide 10 mg/mL Solution Take 50 mg [...] H&P Notes * Kimberly Parikh MD - 04/21/2020 12:24 PM EST Patient Name: Josiane Pacheco Patient Age: 64 y.o. Birthdate: 1955 Admit date: 04/21/2020 Attending Physician: Antony Cordova MD PROBLEM LIST Patient Active Problem List [...] ILLNESS Josiane Pacheco is a 64 y.o. with hx of HIV, depression, GERD who presents for EGD/colo for esophageal dilation and polyp surveillance. MEDICATIONS No current facility-administered medications on file prior to encounter. Current Outpatient Medications on File Prior to Encounter Medication Sig Dispense Refill ??? UNABLE TO FIND Med Name: vemlidy 25mg once daily ??? UNABLE TO FIND Med Name: tivicay 50mg twice daily ??? meloxicam (MOBIC) 7.5 mg Tablet Take 7.5 mg by mouth daily. ??? folic acid (Folvite) 1 mg Tablet Take 1 mg by mouth daily. ??? Lacosamide 10 mg/mL Solution Take 50 mg by mouth 2 times daily. ??? lamiVUDine (Epivir) 150 mg/15 mL Solution Take 150 mg by mouth 2 times daily. ??? hydrOXYzine (Atarax) 10 mg/5 mL Solution Take 25 mg by mouth 3 times daily. ??? clonazePAM (KlonoPIN) 1 mg Tablet, Rapid Dissolve Take 1 mg by mouth 2 times daily as needed. ??? omeprazole (PriLOSEC) 20 mg Capsule, Delayed Release(E.C.) Take 1 capsule by mouth daily. 30 capsule 3 ??? sulfamethoxazole-trimethoprim (Sulfatrim) 200-40 mg/5 mL Suspension Take 10 mLs by mouth daily. PHYSICAL EXAM: Blood pressure 149/85, pulse 85, temperature 36.3 ??C (97.4 ??F), temperature source Temporal, weight 61.2 kg (135 lb), last menstrual period 11/26/2010, SpO2 98 %. GEN: Alert, cooperative. Pleasant. In NAD MP I ASA II HEENT: NCAT. NEck supple. LUNGS: breathing comfortably on RA ABD: soft, NT/ND RECENT [...] 1:30 PM EST [place] [address] Satya Wills MD [facility] [place] [address] documented as of this encounter Procedures Procedure Name Priority Date/Time Associated Diagnosis Comments SPECIMEN TO PATHOLOGY Routine 04/21/2020 1:32 PM EST SPECIMEN TO PATHOLOGY Routine 04/21/2020 1:32 PM EST SPECIMEN TO PATHOLOGY Routine 04/21/2020 1:32 PM EST SURGICAL PATHOLOGY REPORT Routine 04/21/2020 1:17 PM EST Colonoscopy, Diagnostic ([id number]) 04/21/2020 12:37 PM EST For therapy of esophageal stenosis Can you set her up for outpatient EGD/colo in next few weeks for n/v/diarrhea and abnormal CT scan? Up Gi Endoscopy, Paul Blake, 30Mm ([id number]) 04/21/2020 12:37 PM EST For therapy of esophageal stenosis Can you set her up for outpatient EGD/colo in next few weeks for n/v/diarrhea and abnormal CT scan? COLONOSCOPY Routine 04/21/2020 12:22 PM EST UPPER GI ENDOSCOPY Routine 04/21/2020 12 :21 PM EST documented in this encounter Results * Specimen to Pathology (04/21/2020 1:32 PM EST) AP Specimen 04/21/2020 1:32 PM EST 04/21/2020 1:32 PM EST Narrative [facility] - 04/21/2020 1:32 PM EST Specimen requisition ordered. ??Separate Pathology report to follow Antony Cordova MD PATHOLOGY/CYTOLOGY ORDERABLES Performing Organization Address City/[facility]/[place] [address] * Specimen to Pathology (04/21/2020 1:32 PM EST) AP Specimen 04/21/2020 1:32 PM EST 04/21/2020 1:32 PM EST Narrative [facility] - 04/21/2020 1:32 PM EST Specimen requisition ordered. ??Separate Pathology report to follow Antony Cordova MD PATHOLOGY/CYTOLOGY ORDERABLES Performing Organization Address [facility]/[place] [address] * Specimen to Pathology (04/21/2020 1:32 PM EST) AP Specimen 04/21/2020 1:32 PM EST 04/21/2020 1:32 PM EST Narrative [facility] - 04/21/2020 1:32 PM EST Specimen requisition ordered. ??Separate Pathology report to follow Antony Cordova MD PATHOLOGY/CYTOLOGY ORDERABLES Performing Organization Address City/[facility]/[place] [address] * Surgical Pathology Report (04/21/2020 1:17 PM EST) Final Diagnosis [id number] ? Location: 4T; EA09; A The signing pathologist has (i) examined the relevant preparation(s) for the specimen(s) and (ii) rendered or confirmed the diagnosis(es). . ?Surgical Pathology DIAGNOSIS A - Ascending colon, ?? polypectomy: Fragments of tubular adenoma(s). B - Transverse colon, polypectomy: Fragments of tubular adenoma(s). C - Descending colon, polypectomy: Tubular adenoma. [id number] Electronically signed by: ??Guille HALL PhD, Cheryl Verified: ??04/27/2020 ?Pathologist Performed at: ??-[facility] [place], [place], [place] SPECIMEN(S) SUBMITTED A - ascending colon polyps, excision (3) B - transverse colon polyps, excision (2) C - descending colon polyp, excision (1) CLINICAL INFORMATION 64 year-old female/EGD/colon oscopy for esophageal dilation and polyp surveillance SPECIMEN PROCESSING A - Labeled/Fixative : Ascending colon polyps, formalin. Quantity/Size: ??Five, 0.4-1.2 cm. Tissue Description: Soft, irregular to polypoid argueta-pink tissue fragments with colonic debris. Sections/Process ing: Entirely submitted in 5 cassettes as follows: ?A1-A5: ??Individually submitted fragments, the larger fragments inked and sectioned B - Labeled/Fixative : Transverse colon polyps, formalin. Quantity/Size: ??Two, averaging 0.6 cm. Tissue Description: Soft argueta-pink tissue fragments. Sections/Process ing: Entirely submitted in 2 cassettes as follows: ?B1: ??Single fragment, inked and bisected ?B2: ??Single fragment, inked and trisected C - Labeled/Fixative : Descending colon polyp, formalin. Quantity/Size: Single, 0.3 cm. Tissue Description: Soft, argueta-pink tissue. Sections/Process ing: Submitted en toto ??in 1 cassette labeled C1. ??caroline 04/27/2020 3:51 PM [facility] GI Biopsy 04/21/2020 1:17 PM EST 04/21/2020 1:17 PM EST GI Biopsy 04/21/2020 1:17 PM EST 04/21/2020 1:17 PM EST GI Biopsy 04/21/2020 1:17 PM EST 04/21/2020 1:17 PM EST Antony Cordova MD PATHOLOGY/CYTOLOGY ORDERABLES [facility] [place] [address] * COLONOSCOPY (04/21/2020 12:22 PM EST) COLONOSCOPY [facility] Endoscopy Procedure Date: 04/21/2020 12:22 PM ? Patient Name: Josiane aPcheco ? Date of : 1955 ? Age: 64 ? Order #: [id number] ? Instrument Name: -[id number] ? Procedure: ? Colonoscopy Indications: ? High risk colon cancer surveillance: ? Personal history of colonic polyps Providers: ? Antony Cordova MD, Juan Calloway ? Kait Blanchard, ? Glass Blowing Lathe Operator Referring MD: ?Sarah Wagner: ? Monitored Anesthesia Care Complications: ? No [...] APRN GENERAL SURGICAL ORD ERABLES PROVATION * UPPER GI ENDOSCOPY (04/21/2020 12:21 PM EST) UPPER GI ENDOSCOPY [facility] Endoscopy Procedure Date: 04/21/2020 12:21 PM ? Patient Name: Josiane Pacheco ? Date of : 1955 ? Age: 64 ? Order #: [id number] ? Instrument Name: [id number] ? Procedure: ? Upper GI endoscopy Indications: ? Dysphagia Providers: ? Antony Cordova MD, Juan Calloway ? Kait Blanchard, ? Glass Blowing Lathe Operator Referring MD: ?Sarah Alejo Medicines: ? Monitored Anesthesia [...] the ? mouth, and advanced to the third part ? of duodenum. The patient tolerated ? the procedure well. The upper GI ? endoscopy was accomplished without ? difficulty. The patient tolerated the ? procedure well. ? Findings: ? The esophagus had a crepe paper appearance throughout ? its entire length. There was some narrowing at the ? distal esophagus with 2-3 rings present, although the ? scope was able to be advanced to the stomach. We ? decided to dilate using the TTS dilator and dilated ? from 12-13.5-15 mm without difficulty and with ? several mucosal rents following dilation. There was a ? 2 cm hiatal hernia from 39-41 cm. ? The stomach was normal. ? The duodenum was normal. ? Moderate Sedation: ? Not applicable - See Anesthesia documentation Impression: ?- Crepe per esophagus with distal ? wrings s/p dilation to 15 mm. Recommendation: ?- Follow expectantly ? - Continue Protonix ? Attending Participation: ? I was present and participated during the entire ? procedure, including non-baldwin portions. ? ___ Antony Cordova MD 04/21/2020 1:01:08 PM This report has been signed electronically. Number of Addenda: 0 Note Initiated On: 04/21/2020 12:21 PM PROVATION 04/21/2020 12:2 1 PM EST Sarah Alejo APRN GENERAL SURGICAL ORD ERABLES [employer]OVATION documented in this encounter Visit Diagnoses Not on filedocumented in this encounter Active and Recently Administered Medications Care Teams Medical Secretary Teacher Relationship Specialty Start Date End Date Sarah Alejo APRN [address] [place] [address] PCP - General Internal Medicine 11/06/19 documented as of this encounter
--- OUTSIDE RECORDS SUMMARY | 2023-12-04 16:30 | XMS_ITS | Encounter Summary ---
Author Organization [facility] Address [facility] [place] [address] Care Team Providers Care Electrician Station Assistant Name Role Phone Sarah Alejo EZRA Primary Care Provider [phone] Encounter Details Date Type Department Care Team (Late st Contact Info) Description 04/07/2020 Telephone [facility]ology at [facility] [place] [address] Alem Manuel Social History Tobacco Use Types [...] * Telephone Encounter - Alem Manuel - 04/07/2020 10:10 AM EST Josiane Pacheco [id number] Diagnosis/Indication: [place] 1. Have you ever had a/an Colonoscopy before? Yes: Date In [facility] yrs ago If yes, did you have any problems with the procedure? No What type of sedation was used: Other: Unknown 2. Do you take any Blood Thinners? No 3. Do you have a Pacemaker or Defibrillator device? No 4. Are you a diabetic? No 5. Do you have any Allergies to Eggs, Latex or Medications? No 6. Do you take any Oral Iron Supplements (Including multi-vitamins)? No 7. Do you have a history of three or more abdominal surgeries? No 8. Have you had a problem with sedation or anesthesia? No 9. Do you have a c-pap machine or oxygen tank? Neither 10. Do you take prescription narcotic pain medications, including suboxone or methodone? Yes 11. Do you have a preference regarding the gender of your provider? No Preference 12. Is there any other information you would like to give us to aid in scheduling? No 13. Say to patient: You must have a responsible libertarian who will drive you to your procedure, stay oncampus for the entire duration of your procedure, and drive you home from your procedure? *Please Verify the height and weight, and adjust if height and/or weight have changed* Estimated body mass index is 23.53 kg/m?? as calculated from the following: Height as of 01/14/20: 168.9 cm (5' 6.5). Weight as of 01/14/20: 67.1 kg (148 lb). *Delete if not needed* Height: 5'6 Weight: 130 BMI: 21 Age:64 y.o. documented in this encounter Plan of Treatment Upcoming Encounters Date Type Department Care Team (Late st Contact Info) Description 03/06/2024 1:30 PM EST Office [place] [address] Satya Wills MD [facility] [place] [address] documented as of this encounter Visit Diagnoses Not on filedocumented in this encounter Care Teams Electrician Station Assistant Relationship Specialty Start Date End Date Sarah Alejo APRN [address] [place] [address] PCP - General Internal Medicine 11/06/19 documented as of this encounter
--- OUTSIDE RECORDS SUMMARY | 2023-12-04 16:30 | XMS_ITS | Encounter Summary ---
Author Organization [facility] Address [facility] [place] [address] Care Team Providers Care Barrel Washer Machine Name Role Phone Sarah Alejo APRN Primary Care Provider [phone] Encounter Details Date Type Department Care Team (Late st Contact Info) Description 01/14/2020 11:45 AM EST - 01/14/2020 12:15 PM EST [place] [id number] Johan Ovalle MD [facility] [place] [address] EGD WITH BIOPSY (WRVU 2.39) Social History Tobacco Use Types Packs/Day Years [...] Sign Reading Time Taken Comments Blood Pressure 132/80 01/14/2020 10:48 AM EST Pulse 76 01/14/2020 10:48 AM EST Temperature 36.1 ??C (97 ??F) 01/14/2020 10:48 AM EST Respiratory Rate 18 01/14/2020 10:48 AM EST Oxygen Saturation 99% 01/14/2020 10:48 AM EST Inhaled Oxygen Concentration - - Weight 67.1 kg (148 lb) 01/14/2020 10:48 AM EST Height 168.9 cm (5' 6.5) 01/14/2020 10:48 AM ESTEPHANIA T Body Mass Index 23.53 01/14/2020 10:48 AM EST documented in this encounter Discharge Instructions * Discharge Instructions* Rafael eLon RN - 01/14/2020 12:45 PM EST Upper GI Endoscopy: What to [...] home? Activity Rest when you feel tired. ?? You can do your normal activities when it feels okay to do so. Diet ?? Follow your doctor's directions for eating. ?? Unless your doctor has told you not to, drink plenty of fluids. This helps to replace the fluidsthat were lost during the prep. ?? Do not drink alcohol. Medicines ?? Your doctor will tell you if and when you can restart your medicines. He or she will also give you instructions about taking any new medicines. ?? If you take blood thinners, such as warfarin (Coumadin), clopidogrel (Plavix), or aspirin, be sure to talk to your doctor. He or she will tell you if and when to start taking those medicines again. Make sure that you understand exactly what your doctor wants you to do. ?? If polyps were removed or a biopsy was done during the test, your doctor may tell you not to take aspirin or other anti-inflammatory medicines for a few days. These include ibuprofen (Advil, Motrin) and naproxen (Aleve). ?? If you have a sore throat the day after the procedure, use an [id number]-bnx-[id number] spray to numb your throat. Sucking on throat lozenges and gargling with warm salt water may also help relieve your symptoms. Other instructions ?? For your safety, do not drive or operate machinery until the medicine wears off and you can think clearly. Your doctor may tell you not to drive or operate machinery until the day after your test. ?? Do not sign legal documents or make major decisions until the medicine wears off and you can think clearly. The anesthesia can make it hard for you to fully understand what you are agreeing to. Additional Information for Sedation Patients For patients who received sedation: ?? You may have received medications before and/or during your procedure which effects your judgement and reaction time. ?? Do not drive, operate machinery, drink alcoholic beverages or make important decisions for 24 hours. ?? Be careful on stairs as you may be unsteady on your feet. ?? You may eat a regular diet as tolerated. ?? Do not smoke if you are alone. ?? IV site: Slight redness or tenderness is normal, you can use a warm compress if you would like. If tenderness and/or redness increase or if foul drainage occurs, please contact your Doctor. Please call [phone] before 8pm Mon-Fri with problems, questions or concerns. If you call after 8pm or on weekends, call the Hospital at [phone] and ask to speak to the Stereoptic Pro[employer]ographer administrative assistant receptionist and the curling machine operator will contact that person for you. When should you call for help? Call [phone] anytime you think you may need emergency care. For example, call if: ?? You passed out (lost consciousness). ?? You pass maroon or bloody stools. ?? You have trouble breathing. Call your doctor now or seek immediate medical care if: ?? You have pain that does not get better after you take pain medicine. ?? You are sick to your stomach or cannot drink fluids. ?? You have new or worse belly pain. ?? You have blood in your stools. ?? You have a fever. ?? You cannot pass stools or gas. Watch closely for changes in your health, and be sure to contact your doctor if you have any problems. Where can you learn more? [facility]- View your After Visit Summary and more online at [email or web address] If you would like to provide feedback about your hospital experience, please call the Office of Patient and Family Relations at . If you have received this After Visit Summary in error, please immediately return it in person to the department, or notify the [facility] Privacy Office by calling toll free at between the hours of 8AM and 5PM to arrange for our retrieval of the documents at no cost to you. Content Version: 12.2 ?? [phone] [employer]. Care instructions adapted under license by [facility]. If you have questions about a medical condition or this instruction, always ask your healthcare professional. [employer] disclaims any warranty or liability for your use of this information. * Patient Instructions* Johan Ovalle MD - 01/14/2020 1:10 PM EST Please see Recommendations in the Provation procedure report which is documented in the procedural note in [facility]. documented in this encounter Medications at Time [...] H&P Notes * Kimberly Parikh MD - 01/14/2020 12:01 PM EST Patient Name: Josiane Pacheco Patient Age: 64 y.o. Birthdate: 1955 Admit date: 01/14/2020 Attending Physician: Johan Ovalle MD PROBLEM LIST [...] a 64 y.o. woman with PMHx of HIV, HLD, GERD who presents for EGD with dilatation. MEDICATIONS No current facility-administered medications on file [...] mouth 2 times daily as needed. ??? [DISCONTINUED] clonazePAM (KLONOPIN) 1 mg Tablet TAKE 1 TABLET BY MOUTH EVERY MORNING AND 2 TABLETS EVERY EVENING. (Patient taking differently: 2 times daily.) 90 tablet 5 ??? [DISCONTINUED] triamcinolone (KENALOG) 0.1 % Cream Apply to itchy skin all over body twice daily 453.6 g 1 ??? [DISCONTINUED] hydrOXYzine (VISTARIL) 25 mg Capsule take 1 capsule by mouth twice a day. 60 capsule 5 ??? [DISCONTINUED] abacavir-lamiVUDine (EPZICOM) 600-300 mg Tablet take 1 tablet by mouth once daily 30 tablet 1 ??? [DISCONTINUED] REYATAZ 300 mg Capsule take 1 capsule by mouth once daily 30 capsule 1 ??? [DISCONTINUED] meloxicam (MOBIC) 7.5 mg Tablet take 1 tablet by mouth daily as needed. 30 tablet 5 ??? [DISCONTINUED] lacosamide (VIMPAT) 200 mg Tablet take 1 tablet by mouth twice a day. 60 tablet 5 ??? [DISCONTINUED] VIREAD 300 mg Tablet take 1 tablet by mouth once daily 30 tablet 5 ??? [DISCONTINUED] RITONAVIR 100 mg Tablet take 1 tablet by mouth once daily 30 tablet 5 ??? [DISCONTINUED] eslicarbazepine (APTIOM) 400 mg Tablet Take 2 tablets (800MG) by mouth once daily. 60 tablet 11 ??? [DISCONTINUED] darunavir (PREZISTA) 800 mg Tablet Take 1 tablet by mouth daily. 30 tablet 3 ??? [DISCONTINUED] PHENADOZ [address] 25 mg rectally as needed. Reported on ??? [DISCONTINUED] hydrocortisone 2.5 % Cream Apply topically 2 times daily. 30 g 3 ??? [DISCONTINUED] naproxen sodium (ANAPROX) 550 mg Tablet Take 550 mg by mouth 2 times daily as needed. ??? [DISCONTINUED] prochlorperazine (COMPAZINE) 10 mg Tablet Take 1 tablet by mouth 3 times daily as needed. 15 tablet 3 ??? [DISCONTINUED] albuterol (PROVENTIL HFA;VENTOLIN HFA) 90 mcg/Actuation inhaler Inhale 2 puffs into the lungs every 4 hours as needed. Use with spacer ??? [DISCONTINUED] polyethylene glycol (MIRALAX) 17 gram/dose powder Take 17 g by mouth as needed. ??? [DISCONTINUED] Multivitamins with Iron Tab Take 1 tablet by mouth daily. 30 tablet 11 PHYSICAL EXAM: Blood pressure 132/80, pulse 76, temperature 36.1 ??C (97 ??F), temperature source Temporal, resp. rate 18, height 168.9 cm (5' 6.5), weight 67.1 kg (148 lb), last menstrual period 11/26/2010, SpO2 99 %. GEN: Alert, cooperative. Pleasant. In NAD MP I ASA II HEENT: NCAT. Neck supple. LUNGS: Breathing comfortably on RA ABD: Soft, NT/ND RECENT LABS No results found for this or any previous visit (from the past 24 hour(s)). ASSESSMENT AND PLAN Josiane M Pacheco is a 64 y.o. y/o who presents for endoscopic evaluation. Risks extensively discussedincluding bleeding, infection, reaction to anesthesia, perforation, pancreatitis (if applicable), bile duct injury (if applicable), missing a cancer (if applicable) and/or other unforseen complication. Consent signed and patient well informed of the risks of the procedure. documented in this encounter Miscellaneous Notes * Op Note - Johan Ovalle MD - 01/14/2020 1:09 PM EST [facility] Operative Note Patient Name: Josiane Pacheco : [id number] MR#: [id number] Case Date: 01/14/2020 Surgeon: Surgeon(s) and Role: * Johan Ovalle MD - Primary * Kimberly Parikh MD - Fellow Preoperative diagnosis: Gastro-esophageal reflux disease with esophagitis, Esophageal obstruction Postoperative diagnosis: * No post-op diagnosis entered * Procedure(s) (LRB): EGD WITH BIOPSY (WRVU 2.49) (N/A) EGD,WITH DILATION ESOPHAGUS WITH BALLOON,< 30 MM (WRVU 2.77) (N/A) Anesthesia: MAC Full procedure note is documented under the Procedure section of eD. documented in this encounter Plan of Treatment Upcoming Encounters Date Type Department Care Team (Late st Contact Info) Description 03/06/2024 1:30 PM EST [place] [phone] Satya Wills MD [facility] [place] [address] documented as of this encounter Procedures Procedure Name Priority Date/Time Associated Diagnosis Comments SPECIMEN TO PATHOLOGY Routine 01/14/2020 12:33 PM EST SURGICAL PATHOLOGY REPORT Routine 01/14/2020 12:31 PM EST Up Gi Endoscopy, Ball Dil, 30Mm ([id number]) 01/14/2020 12:11 PM EST Gastro-esophageal reflux disease with esophagitis, Esophageal obstruction Upper Gi Endoscopy, Biopsy ([id number]) 01/14/2020 12:11 PM EST Gastro-esophageal reflux disease with esophagitis, Esophageal obstruction UPPER GI ENDOSCOPY Routine 01/14/2020 11 :55 AM EST documented in this encounter Results * XR [...] report, please contact the number below. ? Narrative 01/14/2020 3:29 PM EST EXAMINATION: XR [...] this report, please contact the number below. Kimberly Parikh MD IMG DX ORDERABLES * Specimen to Pathology (01/14/2020 12:33 PM EST) AP Specimen 01/14/2020 12:3 3 PM EST 01/14/2020 12:34 PM EST Narrative [facility] - 01/14/2020 12:34 PM EST Specimen requisition ordered. ??Separate Pathology report to follow Johan Ovalle MD PATHOLOGY/CYTOLOGY O RDERABLES [facility] [place] [address] * Surgical Pathology Report (01/14/2020 12:31 PM EST) Final Diagnosis [id number] ? Location: 4T; EA10; A The signing pathologist has (i) examined the relevant preparation(s) for the specimen(s) and (ii) rendered or confirmed the diagnosis(es). . ?Surgical Pathology DIAGNOSIS Esophagus, ??biopsy: - ??Active esophagitis with neutrophils and increased lymphocytes. Electronically signed by: ??Tre Jose MD Verified: ??01/21/2020 ?Pathologist Performed at: ??-[facility] Dept. of [place]ology, [place], [place] SPECIMEN(S) SUBMITTED A - esophagus r/o eoe or other, biopsy (Multiple) CLINICAL INFORMATION Esophageal strictures SPECIMEN PROCESSING A - Labeled/Fixativ e: Esophagus R/O EOE or other, formalin. Quantity/Size: Four, 0.2-0.4 cm. Tissue Description: Soft, pink-white tissues. Sections/Proces sing: Submitted en toto ??in 1 cassette labeled A1. ??ajw 01/21/2020 3:19 PM EST [facility] GI Biopsy 01/14/2020 12:3 1 PM EST 01/14/2020 12:31 PM EST Johan Ovalle MD PATHOLOGY/CYTOLOGY O RDERABLES [facility] [place] [address] * UPPER GI ENDOSCOPY (01/14/2020 11:55 AM EST) UPPER GI ENDOSCOPY [facility] Endoscopy Procedure Date: 01/14/2020 11:55 AM ? Patient Name: Josiane Pacheco ? Date of : 1955 ? Age: 64 ? Order #: [id number] ? Instrument Name: [id number] ? Procedure: ? Upper GI endoscopy Indications: ? Dysphagia Providers: ? Johan Ovalle MD, Christine Arredondo, ? Aviva Story, Vp Legal Affairs, ? Kimberly Kaminski MD: ?Sarah Alejo Medicines: ? Monitored Anesthesia Care Complications: ? No immediate complications. Procedure: ? Pre-Anesthesia Assessment: ? - [place] Protocol: ? - Pre-procedure Verification: Prior ? [...] by the physician, the nurse, ? the well service floorperson and the electronics engineering technician in ? the procedure room. ? [...] well. ? Findings: ? Benign-appearing, intrinsic moderate stenoses as a ? series of rings/webs was found 34-36 cm from the ? incisors. The stenoses were traversed after dilation. ? A TTS dilator was passed through the scope. Dilation ? with a 12-13.5-15 mm balloon dilator was performed to ? 12 mm with mucosal disruption post dilation with self ? limited bleeding. Biopsies were taken with a cold ? forceps for histology from the mid-esophagus to rule ? out EOE. ? A 4 cm hiatal hernia was present. ? Inflammation characterized by erosions and erythema ? was found in the gastric antrum. ? The examined duodenum was normal. ? Moderate Sedation: ? Not applicable - See Anesthesia documentation Impression: ?- Moderate distal esophageal stenoses ? as a series of rings/webs-s/p balloon ? dilation to 12mm with mucosal ? disruption. This may represent ? EOE-biopsies taken. ? - 4cm hiatal hernia. Recommendation: ?- Repeat upper endoscopy in 2 weeks ? for retreatment. ? - Start omeprazole 20 mg daily. ? - Await pathology results. ? - The attending physician listed ? above was present for the entire ? procedure. ? Procedure Code(s): ?? --- Professional --- ? 10336, Esophagogastroduod enoscopy, ? flexible, transoral; with ? transendoscopic balloon dilation of ? esophagus (less than 30 mm diameter) Diagnosis Code(s): ?? --- Professional --- ? K22.2, Esophageal obstruction ? K29.70, Gastritis, unspecified, ? without bleeding ? R13.10, Dysphagia, unspecified CPT copyright 2019 [employer]. All rights reserved. The codes documented in this report are preliminary and upon midlevel provider review may be revised to meet current compliance requirements. Attending Participation: ? I was present and participated during the entire ? procedure, including non-baldwin portions. ? _ Johan Ovalle MD 01/14/2020 1:13:56 PM This report has been signed electronically. Number of Addenda: 0 Note Initiated On: 01/14/2020 11:55 AM PROVATION 01/14/2020 11:5 5 AM EST Sarah Alejo APRN GENERAL SURGICAL ORD ERABLES [employer]OVATION documented in this encounter Visit Diagnoses Not on filedocumented in this encounter Administered Medications Inactive Administered Medications - up to 3 most recent administrations Medication Order MAR Action Action Date Dose Rate Site lactated ringers infusion 100 mL/hr, Intravenous, CONTINUOUS, Starting on Mon01/14/20 at 1100, Until Mon01/14/20 at 1334, Endoscopy (Day of Procedure) New Bag 01/14/2020 11:05 AM EST 100 mL/hr 100 mL/hr documented in this encounter Active and Recently Administered Medications Times are shown in EST. Continuous Medication Order 01/12/2020 01/13/2020 01/14/2020 lactated ringers infusion (CANCELED) 100 mL/hr, Intravenous, CONTINUOUS, Starting on Mon01/14/20 at 1100, Until Mon01/14/20 at 1334, Endoscopy (Day of Procedure) 1105 (New Bag - Prov ider: Gene Nieves RN)1245 (Stopped - Provider: Yevgeniy Sandoval CRNA) documented in this encounter Care Teams Barrel Washer Machine Relationship Specialty Start Date End Date Sarah Alejo APRN [address] [place] [address] PCP - General Internal Medicine 11/06/19 documented as of this encounter
--- OUTSIDE RECORDS SUMMARY | 2023-12-04 16:30 | XMS_ITS | Encounter Summary ---
Author Organization [facility] Address [facility] [place] [address] Care Team Providers Care Skate Hop Name Role Phone Sarah Alejo CONTACT WORKER Primary Care Provider + [phone] Reason for Visit * Consultation (Routine) - Closed Specialty Diagnoses / Procedures Referred By Jin hernandez Referred To Contact Neurology Diagnoses Epilepsy, unspecified, not intractable, without status epilepticus Migraine with aura, not intractable, without status migrainosus Sarah Alejo, EZRA [address] [place] [address] [facility] Neurology [address] [place] [phone] Referral ID Status Reason Start Date Expiration Date V isits Requested Visits Authorized [id number] Closed Consult, Test & Treat Connection Center PCP Updated and/or Approved 06/22/2020 06/22/2021 6 6 Encounter Details Date Type Department Care Team (Late st Contact Info) Description 09/08/2020 1:00 PM EDT Office [place] [phone] [facility] [place] [address] Partial epilepsy with impairment of [...] Sign Reading Time Taken Comments Blood Pressure 128/94 09/08/2020 12:45 PM EDT Pulse 65 09/08/2020 12:45 PM EDT Temperature - - Respiratory Rate - - Oxygen Saturation - - Inhaled Oxygen Concentration - - Weight 76.7 kg (169 lb) 09/08/2020 12:45 PM EDT Height 167.6 cm (5' 6) 09/08/2020 12:45 PM EDT reported Body Mass Index 27.28 09/08/2020 12:45 PM EDT documented in this encounter Patient Instructions * Patient Instructions* Satya Wills MD - 09/08/2020 1:00 PM EDT It is not really clear what is going on with your seizures. It seems that you are having them every few weeks to months Your doses of antiepileptic medication labs and when I last saw you. I would like to check blood levels today and then decide what to do. I will my nurse will call you next week when we have the results of that test done today You may continue to use the meloxicam as needed for headache I would like to see you back in about 3 months or sooner if necessary Satya Wills MD Department [place] [address] Email: [email or web address] documented in this encounter Progress Notes * Satya Wills MD - 09/08/2020 1:00 PM EDT Neurology clinic note Chief Complaint: Epilepsy. History or Present Illness: The patient is seen in followup today. She came by herself to clinic As noted earlier The patient is a 45-year-old, right-handed woman. She thinks she has a normal and early development. She had English measles at 5 months with high fever. [...] clobazam. She had an allergic reaction to clobazam Interval history: The patient was lost to follow-up for several years and was seen locally in [place]. She reports ongoing seizure activity with mostly nocturnal events happening every few weeks to months. Joannahas sustained numerous injuries including a subdural hematoma. She continues to be treated for HIV infection with somewhat variable viral loads in [place]. She says her headaches are doing quite well with meloxicam. Past medical history: Patient Active Problem List [...] bladder function are unremarkable. Physical Examination: BP (!) 128/94 Pulse 65 Ht 167.6 cm (5' 6) Comment: reported Wt 76.7 kg (169 lb) LMP 11/26/2010 BMI 27.28 kg/m?? Head, eyes, ears, nose, and throat were normal. Lungs are noteworthy for some wheezing. Heart was normal. Extremities were unremarkable. Various lesions noted previously have largely resolved Her mood was good and her speech was normal. She scored 29/30 on MMSE. At baseline her speech is little slow, and slightly pressured but I think it is normal for her. There was minimal external deviation of the right eye as previously noted. Cranial nerves were otherwise unremarkable. Strength was normal. There is some tightness of oral and oropharyngeal musculature giving her tightness around the mouth and slightly strained speech. Coordination remains mildly impaired. Reflexes were brisk, 2+. Babinski sign was previously absent but not checked today. Sensation was normal to touch vibration and graphesthesia. Her gait was stable. Medications: Current Outpatient Medications Medication Sig Dispense Refill ??? clonazePAM (KlonoPIN) 1 mg Tablet, Rapid Dissolve Take 1 tablet by mouth 2 times daily. 60 tablet 5 ??? dolutegravir (Tivicay) 50 mg Tablet Twice a day ??? UNABLE TO FIND Med Name: vemlidy 25mg once daily ??? meloxicam (MOBIC) 7.5 mg Tablet Take 7.5 mg by mouth daily. ??? lamiVUDine (Epivir) 150 mg/15 mL Solution Take 150 mg by mouth 2 times daily. ??? hydrOXYzine (Atarax) 10 mg/5 mL Solution Take 25 mg by mouth 3 times daily. ??? Lacosamide (Vimpat) 10 mg/mL Solution 10 ml (=100 mg ) twice a day. 465 mL 5 ??? folic acid (Folvite) 1 mg Tablet Take 1 mg by mouth daily. No current facility-administered medications for this visit. Laboratory Studies: Orders Placed This Encounter Procedures ??? Lacosamide Level ??? Hepatic Function Panel ??? Basic Metabolic Panel (non-fasting) ??? CBC (with Diff) ??? TSH ??? T4 Total ??? Vitamin B12 ? ? Lyme IgG & IgM Antibody ??? Hemogram ??? Differential, Automated Impression: The situation is rather puzzling and unsatisfactory. 1. She had a temporal lobectomy for [...] of her seizures wererelated to alcohol withdrawal. At present I am uncertain as to what should be done with her antiepileptic regimen. There is therapy is alone and in combination have not worked. I am tracking lacosamide level today. I think the simplest and most reasonable measure at present is to increase the dose based on the level. I will speak with her next week. 2. Headaches seem somewhat improved on meloxicam. I would do nothing further. 4. Psychiatrically she looks somewhat better today, with less pressured speech and also somewhat more organized in her thinking. She scored 29/30 on the MMSE. 5. Other medical issues including the HIV infection and the esophagitis appears stable at present. Thank you for this consultation. I will see her back in 3 monthsor sooner as needed. Satya Wills MD Department [place] [address] Pager: [phone], #[phone] Email: [email or web address] CC: Sarah Myers documented in this encounter Plan of Treatment Upcoming Encounters Date Type Department Care Team (Late st Contact Info) Description 03/06/2024 1:30 PM EST Office [place] [address] [facility] [place] [address] documented as of this encounter Procedures Procedure Name Priority Date/Time Associated Diagnosis Comments HC VENIPUNCTURE Routine 09/08/2020 2:51 PM EDT Partial epilepsy with impairment of consciousness, intractable HC PCH LACOSAMIDE Routine 09/08/2020 2:5 1 PM EDT Partial epilepsy with impairment of consciousness, intractable HEMOGRAM Routine 09/08/2020 2:51 PM EDT Partial epilepsy with impairment of consciousness, intractable DIFFERENTIAL, AUTOMATED Routine 09/08/2020 2:51 PM EDT Partial epilepsy with impairment of consciousness, intractable HC CBC,PLT & AUTO DIFF Routine 09/08/2020 2:51 PM EDT Partial epilepsy with impairment of consciousness, intractable HC THYROID STIMULATING HORMONE, SERUM Routine 09/08/2020 2:51 PM EDT Partial epilepsy with impairment of consciousness, intractable Anxiety disorder, unspecified type HC TOTAL T4 Routine 09/08/2020 2:51 PM EDT Partial epilepsy with impairment of consciousness, intractable Anxiety disorder, unspecified type HC VITAMIN B12 SERUM Routine 09/08/2020 2:51 PM EDT Partial epilepsy with impairment of consciousness, intractable HEPATIC FUNCTION PANEL Routine 09/08/2020 2:51 PM EDT Partial epilepsy with impairment of consciousness, intractable BASIC METABOLIC PANEL Routine 09/08/2020 2:51 PM EDT Partial epilepsy with impairment of consciousness, intractable documented in this encounter Results * Differential, Automated (09/08/2020 2:51 PM EDT) Neutrophil % 54.5 % [facility] Neutrophil Absolute 2.74 1.70 - 6.10 x10(3)/[facility] Lymph % 34.9 % [facility] Lymphocytes Abs 1.8 0.9 - 3.2 x10(3)/[facility] Monocyte % 7.8 % [facility] Monocyte Abs 0.4 0.3 - 0.9 x10(3)/[facility] Eos % 2.2 % [facility] Eosinophils Abs 0.1 0.0 - 0.4 x10(3)/[facility] Basophil % 0.4 % [facility] Baso Absolute 0.0 0.0 - 0.1 x10(3)/[facility] Immature Gran % 0.20 % [facility] Comment: Immature granulocytes(IG's)percentage and absolute count will include metamyelocytes, myelocytes, and promyelocytes. Blood smears from CBCs yielding IG's will be scanned manually for concordance. If this scan disagrees with the automated IG or if promyelocytes are noted, a manual differential will be performed. Immature Gran Absolute 0.01 0.00 - 0.04 x10(3)/[facility] Blood 09/08/2020 2:51 PM EDT 09/08/2020 3:17 PM EDT Narrative Resulting Agency Comment Spec In Lab Satya Wills MD HEMATOLOGY ORDERABLE S [facility] [place] [address] * (ABNORMAL) Hemogram (09/08/2020 2:51 PM EDT) White Blood Cell 5.0 4.0 - 9.5 x10(3)/mc L [facility] Red Blood Cell 3.87(L) 4.00 - 5.21 x10(6)/mc L [facility] Hemoglobin 13.2 11.7 - 15.5 gm/dL [facility] Hematocrit 39.0 35.7 - 45.8 % [facility] Mean Cell Volume 100.8(H) 82.6 - 94.4 fL [facility] Mean Cell Hemoglobin 34.1(H) 27.1 - 32.0 pg [facility] Mean Cell Hemoglobin Concentration 33.8 31.7 - 35.0 gm/dL [facility] Platelet 220 145 - 357 x10(3)/mc L [facility] RDW Standard Deviation 50.2(H) 37.0 - 46.0 fL [facility] RDW coefficient of variation 13.3 11.5 - 14.1 % [facility] Mean Platelet Volume 8.6 7.6 - 12.9 fL [facility] NRBC% auto 0.0 % [facility] NRBC Absolute 0.000 0.000 - 0.000 x10(3)/mc L [facility] Blood 09/08/2020 2:51 PM EDT 09/08/2020 3:17 PM EDT Narrative Resulting Agency Comment Spec In Lab Satya Wills MD HEMATOLOGY ORDERABLE S Performing Organization Address City/[facility]/ZIP Co de Phone Number [facility] [place] [address] * Lyme IgG & IgM Antibody (09/08/2020 2:51 PM EDT) Lyme Antibody Neg Neg [facility] Blood 09/08/2020 2:51 PM EDT 09/08/2020 11:32 PM EDT Narrative Resulting Agency Comment Spec In Lab Satya Wills MD IMMUNOLOGY ORDERABLE S Performing Organization Address City/[facility]/ZIP Co de Phone Number [facility] [place] [address] * Vitamin B12 (09/08/2020 2:51 PM EDT) Vitamin B12 275 232 - 1,245 pg/mL [facility] Blood 09/08/2020 2:51 PM EDT 09/08/2020 3:17 PM EDT Narrative Resulting Agency Comment Spec In Lab Satya Wills MD CHEMISTRY ORDERABLES Performing Organization Address City/[facility]/ZIP Co de Phone Number [facility] [place] [address] * T4 Total (09/08/2020 2:51 PM EDT) T4 Total 5.5 5.3 - 11.6 mcg/dL [facility] Comment: Reference Range: Females: First Trimester: 6.2-13.3 mcg/dL Second Trimester: 7.0-14.7 mcg/dL Third Trimester: 7.0-14.7 mcg/dL Blood 09/08/2020 2:51 PM EDT 09/08/2020 3:17 PM EDT Narrative Resulting Agency Comment Spec In Lab Satya Wills MD CHEMISTRY ORDERABLES Performing Organization Address [facility] Co de Phone Number [facility] [place] [address] * TSH (09/08/2020 2:51 PM EDT) Thyroid Stimulating Hormone 2.26 0.27 - 4.20 mcIU/mL [facility] Blood 09/08/2020 2:51 PM EDT 09/08/2020 3:17 PM EDT Narrative Resulting Agency Comment Spec In Lab Satya Wills MD CHEMISTRY ORDERABLES Performing Organization Address [facility] Co de Phone Number [facility] [place] [address] * Basic Metabolic Panel (non-fasting) (09/08/2020 2:51 PM EDT) Glucose 94 65 - 199 mg/dL [facility] Comment:Diabetes: >=200 mg/d L plus symptoms Blood Urea Nitrogen 14 8 - 18 mg/dL [facility] Creatinine 0.91 0.70 - 1.20 mg/dL [facility] Sodium 142 135 - 145 mmol/L [facility] Potassium 4.1 3.5 - 5.0 mmol/L [facility] Comment: Please note: ??Patients with WBC >100,000 may have falsely elevated Potassium levels. ??For accurate Potassium quantification in these patients send serum separator tube (gold top) for subsequent determinations. ??Contact the Clinical Chemistry Laboratory if there are any questions. Chloride 104 98 - 107 mmol/L [facility] Carbon Dioxide 25 22 - 31 mmol/L [facility] Anion Gap 13 5 - 15 mmol/L [facility] Calcium 9.6 8.5 - 10.5 mg/dL [facility] Est Glomerular Filtration Rate 67 >=60 mL/min/1. 73 m?? [facility] Comment: This patient? s estimated glomerular filtration rate (eGFR) is between 67 mL/min/1.73 m2 (patients with less muscle mass) and 78 mL/min/1.73 m2 (patients with more muscle mass) as determined by the CKD-EPI equation. Assessment of eGFR is not appropriate when creatinine concentrations are rapidly changing. For clinical decisions where creatinine clearance will affect therapy, a 24-hour urine creatinine clearance may be advised. Assignment of CKD stage 1 - 5 for patients with an eGFR near the transition point between stages may be based on clinical assessment of muscle mass and symptoms in addition to eGFR. Blood 09/08/2020 2:51 PM EDT 09/08/2020 3:17 PM EDT Narrative Resulting Agency Comment Spec In Lab Satya Wills MD CHEMISTRY ORDERABLES [facility] [place] [address] * Hepatic Function Panel (09/08/2020 2:51 PM EDT) Protein, Total 7.7 6.1 - 8.0 gm/dL [facility] Albumin 4.5 3.2 - 5.2 gm/dL [facility] Aspartate Aminotransferase 24 0 - 30 unit/L [facility] Alanine Aminotransferase 16 0 - 30 unit/L [facility] Alkaline Phosphatase 70 35 - 105 unit/L [facility] Bilirubin, Total 0.4 0.2 - 1.3 mg/dL [facility] Bilirubin, Direct 0.1 0.0 - 0.3 mg/dL [facility] Blood 09/08/2020 2:51 PM EDT 09/08/2020 3:17 PM EDT Narrative Resulting Agency Comment Spec In Lab Satya Wills MD CHEMISTRY ORDERABLES Performing Organization Address [facility] Co de Phone Number [facility] [place] [address] * Lacosamide Level (09/08/2020 2:51 PM EDT) Lacosamide Level (JUNE) 5.7 1.0 - 10.0 mcg/mL [facility] Comment: ADDITIONAL INFORMATION This test was developed and its performance characteristics determined by [facility] in a manner consistent with CLIA requirements. This test has not been cleared or approved by the U.S. Food and Drug Administration. Test Performed by: [facility] [place] [address] Management Sme: Willy Khan M.D. Ph.D.; CLIA# [id number] Blood 09/08/2020 2:51 PM EDT 09/09/2020 8:20 AM EDT Narrative Resulting Agency Comment Spec In Lab Satya Wills MD LAB SEND OUT ORDERAB LES Performing Organization Address City/[facility]/ZIP Co de Phone Number [facility] [place] [address] documented in this encounter Visit Diagnoses Diagnosis Partial epilepsy with impairment of consciousness, intractable Localization-related (focal) (partial) epilepsy and epileptic syndromes with complex partial seizures, with intractable epilepsy Anxiety disorder, unspecified type documented in this encounter Care Teams Skate Hop Relationship Specialty Start Date End Date Sarah Alejo APRN [address] [place] [address] PCP - General Internal Medicine 11/06/19 documented as of this encounter
--- OUTSIDE RECORDS SUMMARY | 2023-12-04 16:30 | XMS_ITS | Encounter Summary ---
Author Organization [facility] Address [facility] [place] [address] Care Team Providers Care Varnish Finisher Name Role Phone Sarah Alejo APRN Primary Care Provider [phone] Encounter Details Date Type Department Care Team (Late st Contact Info) Description 04/20/2021 10:00 AM EST [place] [address] Satya Wills MD [facility] [place] [address] Partial epilepsy with impairment of consciousness, intractable; Subdural hematoma without coma with loss of consciousness, sequela Social History Tobacco Use Types Packs/Day Years [...] Sign Reading Time Taken Comments Blood Pressure 134/84 04/20/2021 9:54 AM EST Pulse 85 04/20/2021 9:54 AM EST Temperature - - Respiratory Rate - - Oxygen Saturation - - Inhaled Oxygen Concentration - - Weight 82.6 kg (182 lb) 04/20/2021 9:54 AM EST Height 168.9 cm (5' 6.5) 04/20/2021 9:54 AM EST Body Mass Index 28.94 04/20/2021 9:54 AM EST documented in this encounter Patient Instructions * Patient Instructions* Satya Wills MD - 04/20/2021 10:39 AM EST I think you are doing reasonably well, Seizure control appears improved. Your neurological exam is substantially normal. You do have a relatively mild peripheral neuropathy, that is to say damage to the nerves in your legs. This could be part of your underlying HIV illness, but could also be a side effect of some of the medications you have been on over of the years At this point I recommend that you take vitamin B12 1 pill daily. It is a small easily swallowed pill that can also be crushed. For cramps at night I suggest you take tonic water. Drink 16 ounces nightly. Be sure to get the bottle with the yellow label that contains some quinine. It says so on the label in small print. I would like to see you back in 6 months or sooner if necessary. Satya Wills MD Professor of neurology, [facility] [employer] [facility] Department of Neurology, [address] Pager: [phone], #[phone] Email: [email or web address] documented in this encounter Progress Notes * Satya Wills MD - 04/20/2021 10:00 AM EST Neurology clinic note Chief [...] follow-up here and received care locally in [facility]. In 2020 the patient returned for neurological F/U at [facility]. She reported ongoing seizure activity with mostly nocturnal events happening every few weeks to months. She has sustained numerous injuries including a subdural hematoma. She continues to be treated for HIV infection with somewhat variable viral loads in [place]. She says her headaches are doing quite well with meloxicam. I arrange for her to be placed on a combination of lacosamide and clonazepam and on that she reports feelingbetter and having fewer seizures. In the last few months it seems that she has had about 1 event per month although the exact count is uncertain Interval history: As of 2021 the patient appears to be doing better. [facility] improved adherence with medication, decreased viral load and better mood. She is, as usual, vague about her seizure history, but unlike at previous visits denies having had serious accidents or injuries. It is not certain how frequently she is having minor events. She remains on clonazepam and lacosamide. She does complain of leg cramps at night, and is concerned about peripheral neuropathy. She is not complaining of difficulty with swallowing, which she did in the past Past medical history: Patient Active Problem List [...] bladder function are unremarkable. Physical Examination: BP 134/84 Pulse 85 Ht 168.9 cm (5' 6.5) Wt 82.6 kg (182 lb) LMP 11/26/2010 BMI 28.94 kg/m?? Head, eyes, ears, nose, and throat [...] Outpatient Medications Medication Sig Dispense Refill ??? hydrOXYzine (Atarax) 10 mg/5 mL Solution Take 12.5 mLs by mouth 3 times daily. 1125 mL 3 ??? Lacosamide (Vimpat) 10 mg/mL Solution 15 ml (=150 mg ) twice a day. 465 mL 5 ??? clonazePAM (KlonoPIN) 1 mg Tablet, Rapid Dissolve Take 1 tablet by mouth 2 times daily. 60 tablet 5 ??? dolutegravir (Tivicay) 50 mg Tablet Twice a day ??? meloxicam (MOBIC) 7.5 mg Tablet Take 7.5 mg by mouth daily. ??? folic acid (Folvite) 1 mg Tablet Take 1 mg by mouth daily. ??? lamiVUDine (Epivir) 150 mg/15 mL Solution Take 150 mg by mouth 2 times daily. ??? tenofovir alafenamide (Vemlidy) 25 mg Tablet Take 25 mg by mouth daily. 30 tablet 0 No current facility-administered medications for this visit. [...] Impression: The patient appears to be doing well the better 1. She had a temporal lobectomy for [...] withdrawal. She now seems to be having about 1 event per month, but seems to have had fewer in the last several months.. At present I think we should leave things alone. The level of the torsemide is in the therapeutic range. She has been intolerant of other medications in the past. If seizures causing accidental injury recur, I would give consideration to a trial of the new antiepileptic drug cenobamate. I 2. Headaches seem somewhat improved . She is needing less meloxicam. I would do nothing further. 3. She does appear to have a peripheral neuropathy that is perhaps a little worse than before. Her vitamin B12 level was borderline. I recommended that she take 1 mg by mouth daily. This is a very small pill that can be easily kraft or swallowed. I also recommended that she drink 15 ounces of tonicwater nightly for nocturnal cramps. 4. Psychiatrically she looks somewhat better today, with less pressured speech and also somewhat more organized in her thinking. She scored 29/30 on the MMSE a few months ago. 5. Other medical issues including the HIV infection and the esophagitis with esophageal stricture appear stable at present. Thank you for this consultation. I will see her back in 6 months or sooner as needed. Satya Wills [place] [address] Pager: [phone], #[phone] Email: [email or web address] CC: Sarah Myers documented in this encounter Plan of Treatment Upcoming Encounters Date Type Department Care Team (Late st Contact Info) Description 03/06/2024 1:30 PM EST Office Visit Neurology at [place] [phone] Satya Wills MD [facility] [place] [address] documented as of this encounter Visit Diagnoses Diagnosis Partial epilepsy with impairment of consciousness, intractable Localization-related (focal) (partial) epilepsy and epileptic syndromes with complex partial seizures, with intractable epilepsy Subdural hematoma without coma with loss of consciousness, sequela documented in this encounter Care Teams Varnish Finisher Relationship Specialty Start Date End Date Sarah Alejo APRN [address] [place] [address] PCP - General Internal Medicine 11/06/19 documented as of this encounter
--- OUTSIDE RECORDS SUMMARY | 2023-12-04 16:30 | XMS_ITS | Encounter Summary ---
Author Organization [facility] Address [facility] [place] [address] Care Team Providers Care Survey And Mapping Technician Name Role Phone Sarah Alejo APRN Primary Care Provider [phone] Encounter Details Date Type Department Care Team (Late st Contact Info) Description 04/21/2020 12:37 PM EST Anesthesia [place] [phone] Crow Kilgore MD [facility] [place] [address] Anesthesia Record Procedure Summary Procedure Name Responsible Anesthesiologist Anesthesia Start Time Anesthesia Stop Time EGD,WITH DILATION ESOPHAGUS WITH BALLOON,< 30 MM (WRVU 2.67) (Trunk) Crow Kilgore MD 04/21/20 1237 04/21/20 1332 Events Date Time Event Comment 04/21/2020 1137 1237 AN Verify 1237 Start 1237 An Start Data 1241 An Induction 1241 Anesthesia Ready 1332 an stop data 1332 Recovery or ICU Handoff Lida ent care was transferred to the destination unit staff after review of the patient's medical history, current anesthetic/surgical status and plan, according to the Provider Handoff Checklist. 1332 Stop Meds Name Total IV Lidocaine 100 mg Propofol 150 mg Propofol INF 394.74 mg Lactated Ringers 650 mL * Agents Name O2 Air N2O O2 Auxiliary Flowmeter 1 * Blood No blood administrations on file. Lines, Drains, and Airways Type Details Placement Removal (RETIRED) Peripheral IV Line - Single Lumen 04/21/20; 1056; median cubital vein (antecubital fossa), left; 22 gauge; P [place]; distraction, intradermal injection; median vein (underside of arm), right; 04/21/20; 1406 04/21/20 1056 by Ester Cisse RN 04/21/20 1406 by Gene Nieves RN documented in this encounter Social History [...] OR Notes * Anesthesia Postprocedure Evaluation - Crow Kilgore MD - 04/21/2020 2:58 PM EST Department of Anesthesiology Post-procedure Note Patient: Josiane Pacheco Procedure Summary Date: 04/21/20 Room / Location: [facility] ENDO 2 / [facility] ENDOSCOPY Anesthesia Start: 1237 Anesthesia Stop: 1332 Procedures: EGD,WITH DILATION ESOPHAGUS WITH BALLOON,< 30 MM (WRVU 2.77) (N/A Trunk) COLONOSCOPY, DIAGNOSTIC (N/A Trunk) Diagnosis: (For therapy of esophageal stenosis) (Can you set her up for outpatient EGD/colo in next few weeks for n/v/diarrhea and abnormal CT scan?) Surgeons: Antony Cordova MD Responsible Provider: Crow Kilgore MD Anesthesia Type: MAC ASA Status: 3 All Anesthesia Providers: Anesthesiologist: Crow Kilgore MD BOND MANAGER: Madan Moore CRNA Vitals Value Taken Time BP 104/68 04/21/20 1400 Temp Pulse Resp 18 04/21/20 1400 SpO2 99 % 04/21/20 1401 Pain Level 0 04/21/20 1400 Vitals shown include unvalidated device data. Patient Location: PACU/[facility] Level of Consciousness: Awake and Alert Pain Management: Satisfactory Analgesia PONV: None Cardiovascular Status: At Baseline Respiratory Status: At Baseline Postoperative Fluid Status: Intravascular EUvolemia Possible Anesthetic Complications: NONE apparent at time of evaluation Final Primary Anesthesia Type: MAC (The anesthetic type performed was the same as planned.) Comments: * Anesthesia Preprocedure Evaluation - Crow Kilgore MD - 04/21/2020 11:29 AM EST Images from the original note [...] <30MM performed by Ramesh Johnson MD at [facility] ENDOSCOPY ??? PRO ESOPHAGOSCOPY RIGID TRANSORAL BALLOON DILATION N/A 10/16/2015 ESOPHAGOSCOPY, TRANSORAL; WITH BALLOON DILATION <30MM performed by Ramesh Johnson MD at [facility] ENDOSCOPY ??? PRO UP GI ENDOSCOPY, BALL DIL, 30MM N/A 01/08/2016 EGD,WITH DILATION ESOPHAGUS WITH BALLOON,< 30 MM performed by Ramesh Johnson MD at [facility] ENDOSCOPY ??? PRO UP GI ENDOSCOPY, BALL DIL, 30MM N/A 01/14/2020 EGD,WITH DILATION ESOPHAGUS WITH BALLOON,< 30 MM (WRVU 2.77) performed by Johan Ovalle MD at [facility] ENDOSCOPY ??? PRO UP GI ENDOSCOPY, BALL DIL, 30MM N/A 02/05/2020 EGD,WITH DILATION ESOPHAGUS WITH BALLOON,< 30 MM (WRVU 2.77) performed by Johan Ovalle MD at [facility] ENDOSCOPY ??? PRO UPPER GI ENDOSCOPY, BIOPSY N/A 10/16/2015 UPPER GASTROINTESTINAL ENDOSCOPY,WITH BIOPSY SINGLE OR MULTIPLE performed by Ramesh Johnson MD at [facility] ENDOSCOPY ??? PRO UPPER GI ENDOSCOPY, BIOPSY N/A 01/08/2016 EGD WITH BIOPSY performed by Ramesh Johnson MD at [facility] ENDOSCOPY ??? PRO UPPER GI ENDOSCOPY, BIOPSY N/A 01/14/2020 EGD WITH BIOPSY (WRVU 2.49) performed by Johan Ovalle MD at [facility] ENDOSCOPY ??? PRO UPPER GI ENDOSCOPY, DIAGNOSTIC N/A 06/23/2015 EGD, UPPER GI ENDOSCOPY performed by Dejan Sykes MD at [facility] ENDOSCOPY Social History Tobacco Use ??? Smoking status: Former Smoker Packs/day: 0.00 Years: 35.00 Pack years: 0.00 Types: Cigarettes Quit date: 01/03/2020 Years since quittin.2 ??? Smokeless tobacco: Never Used ??? Tobacco comment: 3-4/ day Substance Use Topics ??? Alcohol use: Not Currently Social History Substance and Sexual Activity Drug Use No Allergies Allergen Reactions ??? Lamictal [Lamotrigine] Per patient very dizzy, double vision, and hard to keep walking. ??? Topiramate Itching Medications: MAR and/or home medications have been reviewed. Physical Exam: Patient Vitals for the past 24 hrs: Temp Pulse BP SpO2 O2 Device 04/21/20 1041 36.3 ??C (97.4 ??F) 85 149/85 98 % RA Body mass index is 21.46 kg/m??. Weight: 61.2 kg (135 lb) Airway Assessment: Mallampati: II TM distance: >3 FB Neck ROM: full Cardiovascular Assessment: Rhythm: regular Rate: normal Pulmonary Assessment: breath sounds clear to auscultation Dental Assessment: Misc Assessment: Patient is wearing No contact(s). IV access: Peripheral line Anesthesia Plan: ASA 3 MAC, with a(n) intravenous induction 64 year old woman with a PMH of HLD, seizures, HIV, GERD and depression, previous esophageal dilations who presents for EGD for workup N/V. NPO ?? Region - Other Informed Consent: Anesthetic plan and risks discussed with patient. Plan discussed with attending. PAT Clinic Note documented in this encounter Plan of Treatment Upcoming Encounters Date Type Department Care Team (Late st Contact Info) Description 03/06/2024 1:30 PM EST [place] [address] Satya Wills MD [facility] [place] [address] documented as of this encounter Visit Diagnoses Not on filedocumented in this encounter Administered Medications Inactive Administered Medications - up to 3 most recent administrations Medication Order MAR Action Action Date Dose Rate Site lactated ringers infusion Intravenous, CONTINUOUS PRN, Starting on Mon04/21/20 at 1237, Until Mon04/21/20 at 1332, Anesthesia Intra-op New Bag 04/21/2020 12:37 PM EST lidocaine (pf) (Xylocaine) (20 mg/mL) 2% injection syringe Intravenous, PRN, Starting on Mon04/21/20 at 1241, Until 04/21/20 at 1332, Anesthesia Intra-op, Routine Given 04/21/2020 12:41 PM EST 100 mg propofoL (Diprivan) 10 mg/mL bolus injection (Anesthesia) Intravenous, PRN, Starting on Mon04/21/20 at 1241, Until 04/21/20 at 1332, Anesthesia Intra-op Given 04/21/2020 12:41 PM EST 150 mg propofoL (Diprivan) infusion Intravenous, CONTINUOUS PRN, Starting on Mon04/21/20 at 1241, Until 04/21/20 at 1332, Anesthesia Intra-op, Routine New Bag 04/21/2020 12:41 PM EST 150 mcg/kg/min 55.08 mL/hr documented in this encounter Care Teams Survey And Mapping Technician Relationship Specialty Start Date End Date Sarah Alejo APRN [address] [place] [address] PCP - General Internal Medicine 9/9/20 documented as of this encounter
--- OUTSIDE RECORDS SUMMARY | 2023-12-04 16:30 | XMS_ITS | Encounter Summary ---
Author Organization [facility] Address [facility] [place] [address] Care Team Providers Care Baler Name Role Phone Sarah Alejo APRN Primary Care Provider [phone] Encounter Details Date Type Department Care Team (Late st Contact Info) Description 09/11/2020 [place] [address] [facility] [place] [address] Social History Tobacco Use Types Packs/Day Years [...] encounter Miscellaneous Notes * Telephone Encounter - Joellen Ho RN - 09/11/2020 3:23 PM EDT Spoke to patient. Made aware that per Dr. Wills: Please give this patient a call, and tell her to increase her dose of lacosamide from 100 mg twice daily to 150 mg twice daily. ??She uses the liquid, so she should increase from 10 mL to 15 mL twice a day. ??I can see her back in a couple of months. Patient advised to call back after 1 week to give update. Patient was able to repeat back instructions. Patient advised to call for any other concerns. Patient in agreement and verbalized understanding of the plan. documented in this encounter Plan of Treatment Upcoming Encounters Date Type Department Care Team (Late st Contact Info) Description 03/06/2024 1:30 PM EST [place] [address] [facility] [place] [address] documented as of this encounter Visit Diagnoses Not on filedocumented in this encounter Care Teams Baler Relationship Specialty Start Date End Date Sarah Alejo APRN [address] [place] [address] PCP - General Internal Medicine 11/06/19 documented as of this encounter
--- OUTSIDE RECORDS SUMMARY | 2023-12-04 16:30 | XMS_ITS | Encounter Summary ---
Author Organization [facility] Address [facility] [place] [address] Care Team Providers Care Manufacturing Engineer Machining Name Role Phone Sarah Alejo APRN Primary Care Provider [phone] Encounter Details Date Type Department Care Team (Late st Contact Info) Description 12/15/2020 5:00 PM EDT [place] [phone] Satya Wills MD [facility] [place] [address] Partial epilepsy with impairment of consciousness, intractable; [...] Sign Reading Time Taken Comments Blood Pressure - - Pulse - - Temperature - - Respiratory Rate - - Oxygen Saturation - - Inhaled Oxygen Concentration - - Weight 78 kg (172 lb) 12/15/2020 5:05 PM EDT Height 158.8 cm (5' 2.5) 12/15/2020 5:05 PM EDT Body Mass Index 30.96 12/15/2020 5:05 PM EDT documented in this encounter Patient Instructions * Patient Instructions* Satya Wills MD - 12/15/2020 5:00 PM EDT I think you are doing reasonably well. Seizure control seems somewhat better than before, with fewer side effects of medications At this point I do not see basis for making any change in your medications. Please get blood test done here today. After we have the results of blood tests, if any adjustmentsneed to be made in your medications my office will contact you My office will contact you for follow-up appointment in about 3 months. Please call with any problems in the meantime. Satya Wills MD Professor of neurology, [employer] at [facility] Department of Neurology, [address] Pager: [phone], #[phone] Email: [email or web address] documented in this encounter Progress Notes * Satya Wills MD - 12/15/2020 5:00 PM EDT Neurology clinic note Chief Complaint: Epilepsy. History or Present Illness: The patient is seen in followup today. She came by herself to clinic As noted earlier The patient is a 45-year-old, right-handed woman. She thinks she has a normal and early development. She had [place] measles at 5 months with high fever. [...] received care locally in [facility]. Interval history: In 2020 the patient returned for neurological catheter [facility]. She reported ongoing seizure activity with mostly nocturnal events happening every few weeks to months. She has sustained numerous injuries including a subdural hematoma. She continues to be treated for HIV infection with somewhat variable viral loads in [place]. She says her headaches are doing quite well with meloxicam. I arrange for her to be placed on a combination of lacosamide and clonazepam and on that she reports feeling better and having fewer seizures. In the last few months it seems that she has had about 1event per month although the exact count is uncertain Past medical history: Patient Active Problem List [...] and bladder function are unremarkable. Physical Examination: Ht 158.8 cm (5' 2.5) Wt 78 kg (172 lb) LMP 11/26/2010 BMI 30.96 kg/m?? Head, eyes, ears, nose, and throat [...] not checked today. Sensation was normal to touch, vibration and graphesthesia. Her gait was stable. [...] IgM Antibody ??? Hemogram ??? Differential, Automated Orders Placed This Encounter Procedures ??? Basic Metabolic Panel (non-fasting) ??? Hepatic Function Panel ??? CBC (with Diff) ??? Lacosamide Level ??? Hemogram ??? Differential, Automated Impression: The situation remains rather puzzling and unsatisfactory. 1. She had [...] to be having about 1 event per month. At present I think we should leave things alone. I am checking the level of lacosamide today. Depending on the numbers we may wish to increase the dose a little. 2. Headaches seem somewhat improved on meloxicam. [...] I will see her back in 3 months or sooner as needed. Satya Wills [place] [address] Pager: [phone], #[phone] Email: [email or web address] CC: Sarah Myers documented in this encounter Plan of Treatment Upcoming Encounters Date Type Department Care Team (Late st Contact Info) Description 03/06/2024 1:30 PM EST [place] [address] Satya Wills MD [facility] [place] [address] documented as of this encounter Procedures Procedure Name Priority Date/Time Associated Diagnosis Comments HC PCH LACOSAMIDE Routine 12/15/2020 5:4 5 PM EDT Partial epilepsy with impairment of consciousness, intractable HEMOGRAM Routine 12/15/2020 5:45 PM EDT Partial epilepsy with impairment of consciousness, intractable DIFFERENTIAL, AUTOMATED Routine 12/15/2020 5:45 PM EDT Partial epilepsy with impairment of consciousness, intractable HC CBC,PLT & AUTO DIFF Routine 12/15/2020 5:45 PM EDT Partial epilepsy with impairment of consciousness, intractable HEPATIC FUNCTION PANEL Routine 12/15/2020 5:45 PM EDT Partial epilepsy with impairment of consciousness, intractable BASIC METABOLIC PANEL Routine 12/15/2020 5:45 PM EDT Partial epilepsy with impairment of consciousness, intractable documented in this encounter Results * Differential, Automated (12/15/2020 5:45 PM EDT) Neutrophil % 47.7 % [facility] Neutrophil Absolute 2.70 1.70 - 6.10 x10(3)/[facility] Lymph % 38.6 % [facility] Lymphocytes Abs 2.2 0.9 - 3.2 x10(3)/[facility] Monocyte % 11.6 % [facility] Monocyte Abs 0.7 0.3 - 0.9 x10(3)/[facility] Eos % 1.2 % [facility] Eosinophils Abs 0.1 0.0 - 0.4 x10(3)/[facility] Basophil % 0.5 % [facility] Baso Absolute 0.0 0.0 - 0.1 x10(3)/[facility] Immature Gran % 0.40 % [facility] Comment: Immature granulocytes(IG's)percentage and absolute count will include metamyelocytes, myelocytes, and promyelocytes. Blood smears from CBCs yielding IG's will be scanned manually for concordance. If this scan disagrees with the automated IG or if promyelocytes are noted, a manual differential will be performed. Immature Gran Absolute 0.02 0.00 - 0.04 x10(3)/[facility] Blood 12/15/2020 5:45 PM EDT 12/15/2020 6:45 PM EDT Narrative Resulting Agency Comment Spec In Lab Satya Wills MD HEMATOLOGY ORDERABLE S [facility] [place] [address] * (ABNORMAL) Hemogram (12/15/2020 5:45 PM EDT) White Blood Cell 5.7 4.0 - 9.5 x10(3)/mc L [facility] Red Blood Cell 4.31 4.00 - 5.21 x10(6)/mc L [facility] Hemoglobin 14.9 11.7 - 15.5 g/dL [facility] Hematocrit 43.6 35.7 - 45.8 % [facility] Mean Cell Volume 101.2(H) 82.6 - 94.4 fL [facility] Mean Cell Hemoglobin 34.6(H) 27.1 - 32.0 pg [facility] Mean Cell Hemoglobin Concentration 34.2 31.7 - 35.0 g/dL [facility] Platelet 199 145 - 357 x10(3)/[facility] RDW Standard Deviation 47.0(H) 37.0 - 46.0 [facility] RDW coefficient of variation 12.6 11.5 - 14.1 % [facility] Mean Platelet Volume 9.4 7.6 - 12.9 fL [facility] NRBC% auto 0.0 % [facility] NRBC Absolute 0.000 0.000 - 0.000 x10(3)/ L [facility] Blood 12/15/2020 5:45 PM EDT 12/15/2020 6:45 PM EDT Narrative Resulting Agency Comment Spec In Lab Satya Wills MD HEMATOLOGY ORDERABLE S [facility] [place] [address] * Lacosamide Level (12/15/2020 5:45 PM EDT) Pathologist [facility] Lacosamide Level (JUNE) 5.6 1.0 - 10.0 mcg/mL [facility] Comment: ADDITIONAL INFORMATION This test was developed and its performance characteristics determined by [facility] in a manner consistent with CLIA requirements. This test has not been cleared or approved by the U.S. Food and Drug Administration. Test Performed by: [facility] [address] [place] [address] Tax Attorney: Willy Khan M.D. Ph.D.; CLIA# [id number] Blood 12/15/2020 5:45 PM EDT 12/16/2020 9:27 AM EDT Narrative Resulting Agency Comment Spec In Lab Satya Wills MD LAB SEND OUT ORDERAB LES Performing Organization Address City/[facility]/ZIP Co de Phone Number [facility] [place] [address] * (ABNORMAL) Hepatic Function Panel (12/15/2020 5:45 PM EDT) Protein, Total 8.2(H) 6.1 - 8.0 g/dL [facility] Albumin 4.7 3.2 - 5.2 g/dL [facility] Aspartate Aminotransferase 45(H) 0 - 30 unit/L [facility] Alanine Aminotransferase 37(H) 0 - 30 unit/L [facility] Alkaline Phosphatase 101 35 - 105 unit/L [facility] Bilirubin, Total 0.5 0.2 - 1.3 mg/dL [facility] Bilirubin, Direct 0.1 0.0 - 0.3 mg/dL [facility] Blood 12/15/2020 5:45 PM EDT 12/15/2020 6:45 PM EDT Narrative Resulting Agency Comment Spec In Lab Satya Wills MD CHEMISTRY ORDERABLES Performing Organization Address City/[facility]/ZIP Co de Phone Number [facility] [place] [address] * (ABNORMAL) Basic Metabolic Panel (non-fasting) (12/15/2020 5:45 PM EDT) Glucose 95 65 - 199 mg/dL [facility] Comment:Diabetes: >=200 mg/d L plus symptoms Blood Urea Nitrogen 12 8 - 18 mg/dL [facility] Creatinine 1.07 0.70 - 1.20 mg/dL [facility] Sodium 139 135 - 145 mmol/L [facility] Potassium 4.0 3.5 - 5.0 mmol/L [facility] Comment: Please note: ??Patients with WBC >100,000 may have falsely elevated Potassium levels. ??For accurate Potassium quantification in these patients send serum separator tube (gold top) for subsequent determinations. ??Contact the Clinical Chemistry Laboratory if there are any questions. Chloride 100 98 - 107 mmol/L [facility] Carbon Dioxide 26 22 - 31 mmol/L [facility] Anion Gap 13 5 - 15 mmol/L [facility] Calcium 9.9 8.5 - 10.5 mg/dL [facility] Est Glomerular Filtration Rate 55(L) >=60 mL/min/1. 73 m?? [facility] Comment: This patient? s estimated glomerular filtration rate (eGFR) is between 55 mL/min/1.73 m2 (patients with less muscle mass) and 64 mL/min/1.73 m2 (patients with more muscle mass) [...] and symptoms in addition to eGFR. Blood 12/15/2020 5:45 PM EDT 12/15/2020 6:45 PM EDT Narrative Resulting Agency Comment Spec In Lab Satya M Thadani MD CHEMISTRY ORDERABLES [facility] [place] [address] documented in this encounter Visit Diagnoses Diagnosis Partial epilepsy with impairment of consciousness, intractable Localization-related (focal) (partial) epilepsy and epileptic syndromes with complex partial seizures, with intractable epilepsy Subdural hematoma without coma with loss of consciousness, sequela documented in this encounter Care Teams Manufacturing Engineer Machining Relationship Specialty Start Date End Date Sarah Alejo, PARK AIDE [address] [place] [address] PCP - General Internal Medicine 11/06/19 documented as of this encounter
--- OUTSIDE RECORDS SUMMARY | 2023-12-04 16:30 | XMS_ITS | Encounter Summary ---
Author Organization [facility] Address [facility] [place] [address] Care Team Providers Care Social Work Instructor Name Role Phone Sarah Alejo APRN Primary Care Provider [phone] Reason for Visit * Reason Comments Medication Refill Encounter Details Date Type Department Care Team (Late Contact Info) Description 10/02/2021 [place] [phone] Satya Wills MD [facility] [place] [address] Partial epilepsy with impairment of consciousness, intractable; [...] 1:30 PM EST [place] [address] Satya Wills MD [facility] [place] [address] documented as of this encounter Visit Diagnoses Diagnosis Partial epilepsy with impairment of consciousness, intractable Localization-related (focal) (partial) epilepsy and epileptic syndromes with complex partial seizures, with intractable epilepsy Anxiety disorder, unspecified type documented in this encounter Care Teams Social Work Instructor Relationship Specialty Start Date End Date Sarah Alejo APRN [address] [place] [address] PCP - General Internal Medicine 11/06/19 documented as of this encounter
--- OUTSIDE RECORDS SUMMARY | 2023-12-04 16:30 | XMS_ITS | Encounter Summary ---
Author Organization [facility] Address [facility] [place] [address] Care Team Providers Care Sales Property Manager Name Role Phone Sarah Alejo APRN Primary Care Provider [phone] Reason for Visit * Reason Onset Date Comments Medication Refill 09/29/2020 Encounter Details Date Type Department Care Team (Late st Contact Info) Description 09/29/2020 Ref[place] [address] Satya Wills MD [facility] [place] [address] Social History Tobacco Use Types Packs/Day Years [...] encounter Miscellaneous Notes * Telephone Encounter - Donna Ascencio CMA - 09/29/2020 5:52 PM EDT Surescript request for : hydroxyzine 10 mg/5mL Last rx: 01/14/20 Quantity: 12.5 Refills: Historic From last note: hydrOXYzine (Atarax) 10 mg/5 mL Solution Take 25 mg by mouth 3 times daily. Last appt:09/08/20 Next appt: 12/15/20 documented in this encounter Plan of Treatment Upcoming Encounters Date Type Department Care Team (Late st Contact Info) Description 03/06/2024 1:30 PM EST Office [place] [address] Satya Wills MD [facility] [place] [address] documented as of this encounter Visit Diagnoses Not on filedocumented in this encounter Care Teams Sales Property Manager Relationship Specialty Start Date End Date Sarah Alejo APRN [address] [facility] [address] [place] [address] PCP - General Internal Medicine 11/06/19 documented as of this encounter
--- OUTSIDE RECORDS SUMMARY | 2023-12-04 16:30 | XMS_ITS | Encounter Summary ---
Author Organization [facility] Address [facility] [place] [address] Care Team Providers Care Water Server Name Role Phone Sarah Alejo APRN Primary Care Provider [phone] Encounter Details Date Type Department Care Team (Late st Contact Info) Description 03/12/2020 Telephone [place] [address] Johan Ovalle MD [facility] [place] [address] Social History Tobacco Use Types Packs/Day Years [...] encounter Miscellaneous Notes * Telephone Encounter - Johan Ovalle MD - 03/12/2020 9:37 AM EST In local ED with several months of n/v and diarrhea. CT shows rectosigmoid thickening. Has hx of polyps, last colos 2010 and 2013. Will arrange outpatient EGD/colonoscopy. documented in this encounter Plan of Treatment Upcoming Encounters Date Type Department Care Team (Late st Contact Info) Description 03/06/2024 1:30 PM EST [place] [address] Satya Wills MD [facility] [place] [address] documented as of this encounter Visit Diagnoses Not on filedocumented in this encounter Care Teams Water Server Relationship Specialty Start Date End Date Sarah Alejo APRN [address] [place] [address] PCP - General Internal Medicine 11/06/19 documented as of this encounter
--- OUTSIDE RECORDS SUMMARY | 2023-12-04 16:30 | XMS_ITS | Encounter Summary ---
Author Organization [facility] Address [facility] [place] [address] Care Team Providers Care Metal Extrusion Supervisor Name Role Phone Sarah Alejo APRN Primary Care Provider [phone] Encounter Details Date Type Department Care Team (Latest Contact Info) Description 01/14/2020 10:30 AM EST - 01/14/2020 1:50 PM EST Hospital Encounter [place] [phone] Johan Ovalle MD [facility] [place] [address] Chronic cough Discharge Disposition: Home Social History [...] Sign Reading Time Taken Comments Blood Pressure 98/68 01/14/2020 1:10 PM EST Pulse 76 01/14/2020 10:48 AM EST Temperature 36.1 ??C (97 ??F) 01/14/2020 10:48 AM EST Respiratory Rate 19 01/14/2020 1:10 PM EST Oxygen Saturation 100% 01/14/2020 1:10 PM EST Inhaled Oxygen Concentration - - Weight 67.1 kg (148 lb) 01/14/2020 10:48 AM EST Height 168.9 cm (5' 6.5) 01/14/2020 10:48 AM ES T Body Mass Index 23.53 01/14/2020 10:48 AM EST documented in this encounter Discharge Instructions * Discharge Instructions* Rafael Leon RN - 01/14/2020 12:45 PM EST Upper [...] the day after the procedure, use an hmmk-jzz-moygbgy spray to numb your throat. Sucking on [...] occurs, please contact your Doctor. Please call [phone] before 8pm Mon-Fri with problems, questions or concerns. If you call after 8pm or on weekends, call the Hospital at [phone] and ask to speak to the [employer] paper cone machine operator and the processing operator will contact that person for you. When should you call for help? Call 230 anytime you think you may need emergency [...] any problems. Where can you learn more? [facility] View your After Visit Summary and more online at [email or web address] If you would like to provide feedback about your hospital experience, please call the Office of Patient and Family Relations at . If you have received this After Visit Summary in error, please immediately return it in person to the department, or notify the [facility] Privacy Office by calling toll free at between the hours of 8AM and 5PM to arrange for our retrieval of the documents at no cost to you. Content Version: 12.2 ?? [id number] [employer]. Care instructions adapted under license by [facility]. If you have questions about a medical condition or this instruction, always ask your healthcare professional. [employer] disclaims any warranty or liability for your [...] Ovalle MD - 01/14/2020 1:09 PM EST [facility] Operative Note Patient Name: Josiane Pacheco : [id number] MR#: [id number] Case Date: 01/14/2020 Surgeon: Surgeon(s) and Role: [...] 1:30 PM EST [place] [phone] Satya Wills MD [facility] [place] [address] documented as of this encounter Procedures Procedure Name Priority Date/Time Associated Diagnosis Comments SPECIMEN TO PATHOLOGY Routine 01/14/2020 12:33 PM EST SURGICAL PATHOLOGY REPORT Routine 01/14/2020 12:31 PM EST Up Gi Endoscopy, Ball Dil, 30Mm ([id number]) 01/14/2020 12:11 PM EST Gastro-esophageal reflux disease with esophagitis, Esophageal obstruction Upper Gi Endoscopy, Biopsy ([id number]) 01/14/2020 12:11 PM EST Gastro-esophageal reflux disease [...] ? Electronically signed by: Vero Levin MD, [facility] ([phone]), at 01/14/2020 3:29 PM Narrative 01/14/2020 3:29 [...] the number below. Electronically signed by: Vero Leivn MD, [facility]([phone]), at 01/14/2020 3:29 PM Kimberly Parikh MD IMG DX ORDERABLES * Specimen to Pathology (01/14/2020 12:33 PM EST) AP Specimen 01/14/2020 12:3 3 PM EST 01/14/2020 12:34 PM EST Narrative [facility] - 01/14/2020 12:34 PM EST Specimen requisition ordered. ??Separate Pathology report to follow Johan Ovalle MD PATHOLOGY/CYTOLOGY O RDERABLES [facility] [place] [place] [address] * Surgical Pathology Report (01/14/2020 12:31 PM EST) Final Diagnosis [id number] ? Location: 4T; EA10; A The signing pathologist has (i) examined the relevant preparation(s) for the specimen(s) and (ii) rendered or confirmed the diagnosis(es). . ?Surgical Pathology DIAGNOSIS Esophagus, ??biopsy: - ??Active esophagitis with neutrophils and increased lymphocytes. Electronically signed by: ??Tre Jose MD Verified: ??01/21/2020 ?Pathologist Performed at: ??-[facility] Dept. of Pathology, [place], [place] SPECIMEN(S) SUBMITTED A - esophagus r/o eoe or other, biopsy (Multiple) CLINICAL INFORMATION Esophageal strictures SPECIMEN PROCESSING A - Labeled/Fixativ e: Esophagus R/O EOE or other, formalin. Quantity/Size: Four, 0.2-0.4 cm. Tissue Description: Soft, pink-white tissues. Sections/Proces sing: Submitted en toto ??in 1 cassette labeled A1. ??ajw 01/21/2020 3:19 PM EST [facility] GI Biopsy 01/14/2020 12:3 1 PM EST 01/14/2020 12:31 PM EST Johan Ovalle MD PATHOLOGY/CYTOLOGY O RDERABLES [facility] [place] [place] [address] * UPPER GI ENDOSCOPY (01/14/2020 11:55 AM EST) UPPER GI ENDOSCOPY [facility] Endoscopy Procedure Date: 01/14/2020 11:55 AM ? Patient Name: Josiane Pacheco ? Date of : 1955 ? Age: 64 ? Order #: [id number] ? Instrument Name: [id number] ? Procedure: ? Upper GI endoscopy Indications: ? Dysphagia Providers: ? Johan Ovalle MD, Christine Arredondo, ? Aviva Story, Brokerage Purchase And Sale Clerk, ? Kimberly Kaminski MD: ?Sarah Alejo Medicines: ? Monitored Anesthesia Care Complications: ? No immediate complications. Procedure: ? Pre-Anesthesia Assessment: ? - [place] Protocol: ? - Pre-procedure Verification: Prior ? [...] by the physician, the nurse, ? the project scientist and the welding technician in ? the procedure room. ? [...] Procedure Code(s): ?? --- Professional --- ? 73207, Esophagogastroduod enoscopy, ? flexible, transoral; with ? transendoscopic balloon dilation of ? esophagus (less than 30 mm diameter) Diagnosis Code(s): ?? --- Professional --- ? K22.2, Esophageal obstruction ? K29.70, Gastritis, unspecified, ? without bleeding ? R13.10, Dysphagia, unspecified CPT copyright 2019 [employer]. All rights reserved. The codes documented in this report are preliminary and upon mine production engineer review may be revised to meet current [...] encounter Visit Diagnoses Diagnosis Chronic cough Cough Chronic cough Cough documented in this encounter Administered Medications Inactive [...] CRNA) documented in this encounter Care Teams Metal Extrusion Supervisor Relationship Specialty Start Date End Date Sarah Alejo APRN [address] [place] [address] PCP - General Internal Medicine 11/06/19 documented as of this encounter
--- OUTSIDE RECORDS SUMMARY | 2023-12-04 16:30 | XMS_ITS | Encounter Summary ---
Author Organization [facility] Address [facility] [place] [address] Care Team Providers Care Chief Marketing Officer Name Role Phone Sarah Alejo EZRA Primary Care Provider [phone] Encounter Details Date Type Department Care Team (Late st Contact Info) Description 04/21/2020 12:00 PM EST - 04/21/2020 1:00 PM EST Surgery [place] [phone] Antony Cordova MD [facility] [place] [address] EGD,WITH DILATION ESOPHAGUS WITH BALLOON,< 30 MM [...] Sign Reading Time Taken Comments Blood Pressure 149/85 04/21/2020 10:41 AM EST Pulse 85 04/21/2020 10:41 AM EST Temperature 36.3 ??C (97.4 ??F) 04/21/2020 10:[address] Respiratory Rate - - Oxygen Saturation 98% 04/21/2020 10:41 AM EST Inhaled Oxygen Concentration - - Weight 61.2 kg (135 lb) 04/21/2020 10:41 AM EST Height - - Body Mass Index 21.46 01/14/2020 10:48 AM EST documented in this encounter Discharge Instructions * Attachments The following attachments cannot be sent through Care Everywhere. * EGD (Upper Endoscopy): Post-op (Gibraltarian) * Colonoscopy: Post-op (Gibraltarian) documented in this encounter Medications at Time [...] 1:30 PM EST Office [place] [address] Satya Wills MD [facility] [place] [address] documented as of this encounter Procedures Procedure Name Priority Date/Time Associated Diagnosis Comments SPECIMEN TO PATHOLOGY Routine 04/21/2020 1:32 PM EST SPECIMEN TO PATHOLOGY Routine 04/21/2020 1:32 PM EST SPECIMEN TO PATHOLOGY Routine 04/21/2020 1:32 PM EST SURGICAL PATHOLOGY REPORT Routine 04/21/2020 1:17 PM EST Colonoscopy, Diagnostic ([id number]) 04/21/2020 12:37 PM EST For therapy of esophageal stenosis Can you set her up for outpatient EGD/colo in next few weeks for n/v/diarrhea and abnormal CT scan? Up Gi Endoscopy, Paul Blake, 30Mm ([id number]) 04/21/2020 12:37 PM EST For therapy of [...] PM EST 04/21/2020 1:32 PM EST Narrative [facility] - 04/21/2020 1:32 PM EST Specimen requisition ordered. ??Separate Pathology report to follow Antony Cordova MD PATHOLOGY/[place] [address] * Specimen to Pathology (04/21/2020 1:32 PM EST) AP Specimen 04/21/2020 1:32 PM EST 04/21/2020 1:32 PM EST Narrative [facility] - 04/21/2020 1:32 PM EST Specimen requisition ordered. ??Separate Pathology report to follow Antony Cordova MD PATHOLOGY/CYTOLOGY ORDERABLES Performing Organization Address City/[facility]/[place] [address] * Specimen to Pathology (04/21/2020 1:32 PM EST) AP Specimen 04/21/2020 1:32 PM EST 04/21/2020 1:32 PM EST Narrative [facility] - 04/21/2020 1:32 PM EST Specimen requisition ordered. ??Separate Pathology report to follow Antony Cordova MD PATHOLOGY/CYTOLOGY ORDERABLES Performing Organization Address City/[facility]/[place] [address] * Surgical Pathology Report (04/21/2020 1:17 PM EST) Final Diagnosis [id number] ? Location: 4T; EA09; A The signing [...] PhD, Cheryl Verified: ??04/27/2020 ?Pathologist Performed at: ??-[facility] Dept. of Pathology, [place], [place] SPECIMEN(S) SUBMITTED A - ascending colon [...] cassette labeled C1. ??caroline 04/27/2020 3:51 PM EST [facility] GI Biopsy 04/21/2020 1:17 PM EST 04/21/2020 1:17 PM EST GI Biopsy 04/21/2020 1:17 PM EST 04/21/2020 1:17 PM EST GI Biopsy 04/21/2020 1:17 PM EST 04/21/2020 1:17 PM EST Antony Cordova MD PATHOLOGY/CYTOLOGY ORDERABLES Performing Organization Address [facility]/State/ZIP Co de Phone Number [facility] [place] [place] [address] * COLONOSCOPY (04/21/2020 12:22 PM EST) COLONOSCOPY [facility] Endoscopy Procedure Date: 04/21/2020 12:22 PM ? Patient Name: Josiane Pacheco ? Date of : 1955 ? Age: 64 ? Order #: [id number] ? Instrument Name: -[id number] ? Procedure: ? Colonoscopy Indications: ? High risk colon cancer surveillance: ? Personal history of colonic polyps Providers: ? Antony Cordova MD, Juan Calloway ? Kait Blanchard, ? Scrum Master Referring MD: ?Sarah Alejo Medicines: ? Monitored [...] 12:21 PM EST) UPPER GI ENDOSCOPY [facility] Endoscopy Procedure Date: 04/21/2020 12:21 PM ? Patient Name: Josiane Pacheco ? Date of : 1955 ? Age: 64 ? Order #: [id number] ? Instrument Name: [id number] ? Procedure: ? Upper GI endoscopy Indications: ? Dysphagia Providers: ? Antony Cordova MD, Juan Calloway ? Kait Blanchard, ? Scrum Master Referring : ?Sarah Alejo Medicines: ? Monitored [...] Active and Recently Administered Medications Care Teams Chief Marketing Officer Relationship Specialty Start Date End Date Sarah Alejo APRN [address] [place] [address] PCP - General Internal Medicine 11/06/19 documented as of this encounter
--- OUTSIDE RECORDS SUMMARY | 2023-12-04 16:30 | XMS_ITS | Encounter Summary ---
Author Organization [facility] Address [facility] [place] [address] Care Team Providers Care Director Community Health Nursing Name Role Phone Bryce Dobbins DO Primary Care Provider [phone] Encounter Details Date Type Department Care Team (Late st Contact Info) Description 12/07/2017 [place] [address] Nikky Nguyễn Social History Tobacco Use Types Packs/Day Years [...] 1:30 PM EST [place] [address] Satya Wills MD [facility] [place] [address] documented as of this encounter Visit Diagnoses Not on filedocumented in this encounter Care Teams Director Community Health Nursing Relationship Specialty Start Date End Date Bryce Dobbins DO PCP - General General Internal Medicine 01/23/1711/04 documented as of this encounter
--- OUTSIDE RECORDS SUMMARY | 2023-12-04 16:30 | XMS_ITS | Encounter Summary ---
Author Organization [facility] Address [facility] [place] [address] Care Team Providers Care Newspaper Photojournalist Name Role Phone Sarah Alejo APRN Primary Care Provider [phone] Encounter Details Date Type Department Care Team (Late st Contact Info) Description 10/18/2021 3:30 PM EDT Office [place] [phone] Satya Wills MD [facility] [place] [address] Partial epilepsy with impairment of consciousness, intractable; [...] Sign Reading Time Taken Comments Blood Pressure 151/84 10/18/2021 3:07 PM EDT Pulse 68 10/18/2021 3:07 PM EDT Temperature - - Respiratory Rate - - Oxygen Saturation - - Inhaled Oxygen Concentration - - Weight 90.7 kg (200 lb) 10/18/2021 3:07 PM EDT Height 168.9 cm (5' 6.5) 10/18/2021 3:07 PM EDT Body Mass Index 31.8 10/18/2021 3:07 PM EDT documented in this encounter Patient Instructions * Patient Instructions* Satya Wills MD - 10/18/2021 3:30 PM EDT I think you are doing about the same I need you to go back on Vimpat as your principal seizure medication. I have rewritten the prescription in a form that I hope will be paid for If it is not paid for, please call me personally. I do not know what went wrong when you called theoffice Please continue the medications that are currently on your list I would like to see you back in 6 months or sooner if necessary. Satya Wills MD Professor of neurology, [employer] [employer] at [facility] Department of Neurology, [address] Pager: [phone], #[phone] Email: [email or web address] documented in this encounter Progress Notes * Satya Wills MD - 10/18/2021 3:30 PM EDT Neurology clinic note Chief Complaint: Epilepsy. History or Present Illness: The patient is seen in followup today. She came by herself to clinic As noted earlier The patient is a 45-year-old, right-handed woman. She thinks she has a normal and early development. She had Georgian measles at 5 months with high fever. [...] follow-up here and received care locally in [facility]. In 2020 the patient returned for neurological F/U at [facility]. She reported ongoing seizure activity with mostly nocturnal events happening every few weeks to months. She has sustained numerous injuries including a subdural hematoma. She continues to be treated for HIV infection with somewhat variable viral loads in [place]. She says her headaches are doing quite [...] [facility] adherence with [facility], decreased viral load and better mood. She is, as usual, vague about her seizure history, but denies having had serious accidents or injuries. It is not certain how frequently she is having minor events. She was on clonazepam and lacosamide, but something went wrong with the lacosamide prescription where they would no longer fill it in liquid form, and there was some breakdown in communication such that I was not aware of this problem, and so she has not been taking it. She has had 3 seizures in the last few months. Her leg cramps are better improved hydration using tonic water She is not complaining of difficulty with [...] bladder function are unremarkable. Physical Examination: BP 151/84 Pulse 68 Ht 168.9 cm (5' 6.5) Wt 90.7 kg (200 lb) LMP 11/26/2010 BMI 31.80 kg/m?? Head, eyes, ears, nose, and throat [...] 2 times daily. 60 tablet 5 ??? Multivitamins with Iron Tablet Take 1 tablet by mouth Daily. ??? tenofovir alafenamide (Vemlidy) 25 mg Tablet Take 1 tablet by mouth daily. 30 tablet 0 ??? cyanocobalamin, Vitamin B-12, (Vitamin B-12) 1,000 mcg Tablet Take 1 tablet by mouth daily. 100tablet 3 ??? dolutegravir (Tivicay) 50 mg Tablet Twice a day ??? lamiVUDine (Epivir) 150 mg/15 mL Solution Take 150 mg by mouth 2 times daily. ??? hydrOXYzine (Atarax) 10 mg/5 mL Solution Take 12.5 mLs by mouth 3 times daily. 1125 mL 5 ??? lacosamide (Vimpat) 100 mg Tablet Take 1 tablet by mouth 2 times daily. 60 tablet 5 ??? meloxicam (MOBIC) 7.5 mg Tablet Take 1 tablet by mouth daily. 30 tablet 11 ??? folic acid (Folvite) 1 mg Tablet [...] be having about 1 event per month, perhaps more when she misses medications. I am trying to get her back on her regular prescription of lacosamide. I have given her my personalcell phone #[phone] to call if she cannot get it. There is only so much I can do regarding breakdowns of communication in the office. 2. Headaches seem somewhat improved . She [...] on the MMSE a few months ago. It is somewhat bizarre that she allowed herself to run out of essential antiepileptic medication, but a large part of that problem may have been with me and my office. 5. Other medical issues including the HIV infection and the esophagitis with esophageal stricture appear stable at present. Thank you for this consultation. I will see her back in 6 months or sooner as needed. Satya Wills MD [place] [address] Pager: [phone], #[phone] Email: [email or web address] CC: Sarah Myers documented in this encounter Plan of Treatment Upcoming Encounters Date Type Department Care Team (Late st Contact Info) Description 03/06/2024 1:30 PM EST Office [place] [address] Satya Wills MD [facility] [place] [address] documented as of this encounter Visit Diagnoses Diagnosis Partial epilepsy with impairment of consciousness, intractable Localization-related (focal) (partial) epilepsy and epileptic syndromes with complex partial seizures, with intractable epilepsy Anxiety disorder, unspecified type documented in this encounter Care Teams Newspaper Photojournalist Relationship Specialty Start Date End Date Sarah Alejo APRN [address] [place] [address] PCP - General Internal Medicine 11/06/19 documented as of this encounter
--- OUTSIDE RECORDS SUMMARY | 2023-12-04 16:30 | XMS_ITS | Encounter Summary ---
Author Organization [facility] Address [facility] [place] [address] Care Team Providers Care Government Professor Name Role Phone Sarah Alejo APRN Primary Care Provider [phone] Reason for Visit * Reason Onset Date Comments Medication Refill 10/13/2020 Encounter Details Date Type Department Care Team (Late st Contact Info) Description 10/13/2020 [place] [phone] Satya Wills MD [facility] [place] [address] Social History Tobacco Use Types Packs/Day Years [...] 1:30 PM EST [place] [address] Satya Wills MD [facility] [place] [address] documented as of this encounter Visit Diagnoses Not on filedocumented in this encounter Care Teams Government Professor Relationship Specialty Start Date End Date Sarah Alejo APRN [address] [place] [address] PCP - General Internal Medicine 11/06/19 documented as of this encounter
--- OUTSIDE RECORDS SUMMARY | 2023-12-04 16:30 | XMS_ITS | Encounter Summary ---
Author Organization [facility] Address [facility] [place] [address] Care Team Providers Care Geological Technical Officer Name Role Phone Sarah Alejo APRN Primary Care Provider [phone] Reason for Visit * Reason Comments Medication Refill Encounter Details Date Type Department Care Team (Late st Contact Info) Description 01/30/2022 Refill [place] [phone] Satya Wills MD [facility] [place] [address] Partial epilepsy with impairment of consciousness, intractable; [...] Telephone Encounter - Deidre Hatch RN - 02/01/2022 11:10 AM EST Surescript request for : hydroxazine Last rx: 10/18/2021 Quantity: Refills: 5 From last note: She had a temporal lobectomy for refractory epilepsy but from reliable descriptionsshe has continued to have complex partial seizures, and larger ones, probably secondarily generalized that cause falls and injuries. As noted earlier, we failed on 2 occasions in spite of extensive inpatient video- EEG recording to capture any seizures since she had surgery. This was in spite of taking her off of all antiepileptic medication. ?? There was some doubt in my mind as to whether all the events that she was having were epileptic, although her son's description was very convincing. It is also possible that some of her seizures wererelated to alcohol withdrawal. She now seems to be having about 1 event per month, perhaps more when she misses medications. ?? I am trying to get her back on her regular prescription of lacosamide. I have given her my personalcell phone #[phone] to call if she cannot get it. There is only so much I can do regarding breakdowns of communication in the office. Last appt: 10/18/2021 Next appt: 04/20/2021 documented in this encounter Plan of Treatment Upcoming Encounters Date Type Department Care Team (Late st Contact Info) Description 03/06/2024 1:30 PM EST Office Visit [place] [address] Satya Wills MD [facility] [place] [address] documented as of this encounter Visit Diagnoses Diagnosis Partial epilepsy with impairment of consciousness, intractable Localization-related (focal) (partial) epilepsy and epileptic syndromes with complex partial seizures, with intractable epilepsy Anxiety disorder, unspecified type documented in this encounter Care Teams Geological Technical Officer Relationship Specialty Start Date End Date Sarah Alejo APRN [address] [place] [address] PCP - General Internal Medicine 11/06/19 documented as of this encounter
--- OUTSIDE RECORDS SUMMARY | 2023-12-04 16:30 | XMS_ITS | Encounter Summary ---
Author Organization [facility] Address [facility] [place] [address] Care Team Providers Care Soil Science Technical Officer Name Role Phone Sarah Alejo APRN Primary Care Provider [phone] Reason for Visit * Reason Comments Medication Refill Encounter Details Date Type Department Care Team (Late Contact Info) Description 09/27/2018 Refill [place] [phone] Drew Heaton MD [facility] [place] [address] Human immunodeficiency virus (HIV) disease Social History Tobacco Use Types Packs/Day Years [...] 1:30 PM EST Office [place] [address] Satya Wills MD [facility] [place] [address] documented as of this encounter Visit Diagnoses Diagnosis Human immunodeficiency virus (HIV) disease Human immunodeficiency virus [HIV] disease documented in this encounter Care Teams Soil Science Technical Officer Relationship Specialty Start Date End Date Sarah Alejo APRN [address] [place] [address] PCP - General Internal Medicine 11/06/19 documented as of this encounter
--- OUTSIDE RECORDS SUMMARY | 2023-12-04 16:30 | XMS_ITS | Encounter Summary ---
Author Organization [facility] Address [facility] [place] [address] Care Team Providers Care Plating And Point Assembly Supervisor Name Role Phone Sarah Alejo APRN Primary Care Provider [phone] Encounter Details Date Type Department Care Team (Late st Contact Info) Description 02/05/2020 2:52 PM EST Anesthesia Event [place] [address] Noe Phipps MD [facility] [place] [address] Kait Honeycutt CRNA [facility] DR ANESTHES[place]OLOGY [place] [address] Anesthesia Record Procedure Summary Procedure Name Responsible Anesthesiologist Anesthesia Start Time Anesthesia Stop Time EGD,WITH DILATION ESOPHAGUS WITH BALLOON,< 30 MM (WRVU 2.67) (Trunk) Noe Phipps MD 02/05/20 1452 02/05/20 1523 Events Date Time Event Comment 02/05/2020 1408 1452 AN Verify 1452 Start 1452 An Start Data 1456 An Induction 1457 Anesthesia Ready 1500 Procedure Start 1511 Procedure Stop 1517 an stop data 1522 Recovery or ICU Handoff Lida ent care was transferred to the destination unit staff after review of the patient's medical history, current anesthetic/surgical status and plan, according to the Provider Handoff Checklist. 1523 Stop Meds Name Total IV Lidocaine 60 mg Propofol 50 mg Propofol INF 201.3 mg Dexmedetomidine 12 mcg lactated ringers infusion 800 mL * Agents Name O2 Air N2O O2 Auxiliary Flowmeter 1 * Blood No blood administrations on file. Lines, Drains, and Airways Type Details Placement Removal (RETIRED) Peripheral IV Line - Single Lumen 02/05/20; 1411; median cubital vein (antecubital fossa), left; [id number] catheter system; 22 gauge; Fabio Nieves RN; tolerated well, appears comfortable; 1; median vein (underside of arm), right; no longer indicated; 02/05/20; 1600 02/05/20 1411 by Gene Nieves RN 02/05/20 1600 by Antony Zamarripa RN documented in this encounter Social History [...] Postprocedure Evaluation - Noe Phipps MD - 02/05/2020 9:52 PM EST Department of Anesthesiology Post-procedure Note Patient: Josiane Pacheco Procedure Summary Date: 02/05/20 Room / Location: [facility] 2 / [facility] Anesthesia Start: 1452 Anesthesia Stop: 1523 Procedure: EGD,WITH DILATION ESOPHAGUS WITH BALLOON,< 30 MM (WRVU 2.77) (N/A Trunk) Diagnosis: (Repeat upper endoscopy in 2 weeks for retreatment. Vasquez) Surgeon: Johan Ovalle MD Responsible Provider: Noe Phipps MD Anesthesia Type: MAC ASA Status: 3 All Anesthesia Providers: Anesthesiologist: Noe Phipps MD TALENT ACQUISITION LEAD: Kait Mruguia CRNA Vitals Value Taken Time BP 116/80 02/05/20 1555 Temp Pulse 67 02/05/20 1524 Resp 18 02/05/20 1545 SpO2 98 % 02/05/20 1556 Pain Level 0 02/05/20 1545 Vitals shown include unvalidated device data. Patient Location: PACU/[facility] Level of Consciousness: Awake and Alert Pain [...] Preprocedure Evaluation - Noe Phipps MD - 02/05/2020 8:39 AM EST Images from the original note [...] <30MM performed by Ramesh Johnson MD at [facility] ??? PRO ESOPHAGOSCOPY RIGID TRANSORAL BALLOON DILATION N/A 10/16/2015 ESOPHAGOSCOPY, TRANSORAL; WITH BALLOON DILATION <30MM performed by Ramesh Johnson MD at [facility] ??? PRO UP GI ENDOSCOPY, BALL DIL, 30MM N/A 01/08/2016 EGD,WITH DILATION ESOPHAGUS WITH BALLOON,< 30 MM performed by Ramesh Johnson MD at [facility] ??? PRO UP GI ENDOSCOPY, BALL DIL, 30MM N/A 01/14/2020 EGD,WITH DILATION ESOPHAGUS WITH BALLOON,< 30 MM (WRVU 2.77) performed by Johan Ovalle MD at [facility] ??? PRO UPPER GI ENDOSCOPY, BIOPSY N/A 10/16/2015 UPPER GASTROINTESTINAL ENDOSCOPY,WITH BIOPSY SINGLE OR MULTIPLE performed by Ramesh Johnson MD at [facility] ??? PRO UPPER GI ENDOSCOPY, BIOPSY N/A 01/08/2016 EGD WITH BIOPSY performed by Ramesh Johnson MD at [facility] ??? PRO UPPER GI ENDOSCOPY, BIOPSY N/A 01/14/2020 EGD WITH BIOPSY (WRVU 2.49) performed by Johan Ovalle MD at [facility] ??? PRO UPPER GI ENDOSCOPY, DIAGNOSTIC N/A 06/23/2015 EGD, UPPER GI ENDOSCOPY performed by Dejan Sykes MD at [facility] Social History Tobacco Use ??? Smoking status: Former Smoker Packs/day: 0.00 Years: 35.00 Pack years: 0.00 Types: Cigarettes Quit date: 01/03/2020 Years since quittin.0 ??? Smokeless tobacco: Never Used ??? Tobacco comment: 3-4/ day Substance Use Topics ??? Alcohol use: Yes Alcohol/week: 1.0 standard drinks Types: 1 Cans of beer per week Social History Substance and Sexual Activity Drug [...] PMH of HLD, seizures, HIV, GERD and depression who presents for EGD for f/u from previous dilations Tolerated prior procedure with propofol sedation. Allergy: -- Lamictal (Lamotrigine) -- Per patient very dizzy, double vision, and hard to keep walking. -- Topiramate -- Itching BP Readings from Last 3 Encounters: 07/13/16 : 140/90 02/13/17 : 155/82 03/14/16 : 137/83 Labs: Lab [...] risks discussed with patient. Plan discussed with TALENT ACQUISITION LEAD. PAT Clinic Note documented in this encounter Plan of Treatment Upcoming Encounters Date Type Department Care Team (Late st Contact Info) Description 03/06/2024 1:30 PM EST Office [place] [address] Satya Wills MD [facility] [place] [address] documented as of this encounter Visit Diagnoses Not on filedocumented in this encounter Administered Medications Inactive Administered Medications - up to 3 most recent administrations Medication Order MAR Action Action Date Dose Rate Site dexmedetomidine (Precedex) (4 mcg/mL) bolus injection (Anesthsia) PRN, Starting on Mon02/05/20 at 1502, Until Mon02/05/20 at 1524, Anesthesia Intra-op, Routine Given 02/05/2020 3:04 PM EST 6 mcg Given 02/05/2020 3:02 PM EST 6 mcg lidocaine (pf) (Xylocaine) (20 mg/mL) 2% injection syringe PRN, Starting on Mon02/05/20 at 1456, Until Mon02/05/20 at 1524, Anesthesia Intra-op, Routine Given 02/05/2020 2:56 PM EST 60 mg propofoL (Diprivan) 10 mg/mL bolus injection (Anesthesia) PRN, Starting on Mon02/05/20 at 1456, Until Mon02/05/20 at 1524, Anesthesia Intra-op Given 02/05/2020 2:56 PM EST 50 mg propofoL (Diprivan) infusion CONTINUOUS PRN, Starting on Mon02/05/20 at 1456, Until Mon02/05/20 at 1524, Anesthesia Intra-op, Routine New Bag 02/05/2020 2:56 PM EST 200 mcg/kg/min 80.5 mL/hr documented in this encounter Care Teams Plating And Point Assembly Supervisor Relationship Specialty Start Date End Date Sarah Alejo, COMPLIANCE AIDE [address] [address] PCP - General Internal Medicine 11/06/19 documented as of this encounter
--- OUTSIDE RECORDS SUMMARY | 2023-12-04 16:30 | XMS_ITS | Encounter Summary ---
Author Organization [facility] Address [facility] [place] [address] Care Team Providers Care Mirror Fabrication Supervisor Name Role Phone Sarah Alejo APRN Primary Care Provider [phone] Reason for Visit * Reason Comments Medication Refill Encounter Details Date Type Department Care Team (Late Contact Info) Description 04/10/2021 [place] [phone] Satya Wills MD [facility] [place] [address] Social History Tobacco Use Types Packs/Day Years [...] 1:30 PM EST Office [place] [phone] Satya Wills MD [facility] [place] [address] documented as of this encounter Visit Diagnoses Not on filedocumented in this encounter Care Teams Mirror Fabrication Supervisor Relationship Specialty Start Date End Date Sarah Alejo APRN [address] [address] PCP - General Internal Medicine 11/06/19 documented as of this encounter
--- OUTSIDE RECORDS SUMMARY | 2023-12-04 16:30 | XMS_ITS | Encounter Summary ---
Author Organization [facility] Address [facility] [place] [address] Care Team Providers Care Automatic Shirring Machine Operator Name Role Phone Sarah Alejo APRN Primary Care Provider [phone] Reason for Visit * Reason Onset Date Comments Medication Refill 03/09/2021 Encounter Details Date Type Department Care Team (Late st Contact Info) Description 03/09/2021 Ref[place] [address] Satya Wills MD [facility] [place] [address] Social History Tobacco Use Types Packs/Day Years [...] encounter Miscellaneous Notes * Telephone Encounter - Zeynep Syed RN - 03/09/2021 2:13 PM EST Rx line request for renewal of medications Meds due or soon due for renewal Hydroxyzine ( last rx 11/17 1 mo and 3 RF) lacosamide ( last rx 08/2020 1 mo and 5 RF) Clonazepam (last rx 08/2020 1 mo and 5 RF0 Last appt 11/2020 FUV due now - no pending appts - msg to trade union secretary documented in this encounter Plan of Treatment Upcoming Encounters Date Type Department Care Team (Late st Contact Info) Description 03/06/2024 1:30 PM EST Office [place] [address] Satya Wills MD [facility] [place] [place] [address] documented as of this encounter Visit Diagnoses Not on filedocumented in this encounter Care Teams Automatic Shirring Machine Operator Relationship Specialty Start Date End Date Sarah Alejo APRN [address] [facility] [place] [address] PCP - General Internal Medicine 11/06/19 documented as of this encounter
--- OUTSIDE RECORDS SUMMARY | 2023-12-04 16:30 | XMS_ITS | Encounter Summary ---
Author Organization [facility] Address [facility] [place] [address] Care Team Providers Care Blending Tank Tender Name Role Phone Sarah Alejo APRN Primary Care Provider [phone] Reason for Visit * Reason Onset Date Comments Medication Refill 11/06/2020 Encounter Details Date Type Department Care Team (Late st Contact Info) Description 11/06/2020 [place] [address] Satya Wills MD [facility] [place] [address] Social History Tobacco Use Types Packs/Day Years [...] Telephone Encounter - Joellen Ho RN - 11/06/2020 12:16 PM EDT Hydroxyzine rx updated for 30 day supply. Prescription request sent to Dr. Wills for approval. * Telephone Encounter - Jenelle Carr - 11/06/2020 11:03 AM EDT Call Center / Mold Laminator Message Prescription Refill Request Clinical Mold Laminator message Provider patient sees in Clinic: Elma Caller and relationship (if other than patient-full name): Self Call back Number: [phone] Ok to leave a message: yes Any issues needing to be addressed prior to medication refill? (ex: dose increase, not at pharmacy): Pharmacy is giving you enough for about 6 days, patient is running out quickly. Name of Med: hydrOXYzine (Atarax) 10 mg/5 mL Solution Strength of Pills: 25 mg Dosing Directions: Take 12.5 mLs by mouth 3 times daily. How Patient is Currently Taking Medication: Take 12.5 mLs by mouth 3 times daily. 30 or 90 Day Supply: 90 Pharmacy: [facility] [place], [place] Last Appointment: 09/25/2020 Next Appointment: (IF CALL IS FROM PATIENT/FAMILY AND THERE IS NO FOLLOW UP SCHEDULED REVIEW CHART TO SEE WHEN APPOINTMENT IS NEEDED AND SCHEDULE BEFORE SENDING MESSAGE) 12/15/2020 Is Patient out of Medication?: yes documented in this encounter Plan of Treatment Upcoming Encounters Date Type Department Care Team (Late st Contact Info) Description 03/06/2024 1:30 PM EST Office [place] [address] Satya Wills MD [facility] [place] [address] documented as of this encounter Visit Diagnoses Not on filedocumented in this encounter Care Teams Blending Tank Tender Relationship Specialty Start Date End Date Sarah Alejo APRN [address] [place] [address] PCP - General Internal Medicine 11/06/19 documented as of this encounter
--- OUTSIDE RECORDS SUMMARY | 2023-12-04 16:30 | XMS_ITS | Encounter Summary ---
Author Organization [facility] Address [facility] [place] [address] Care Team Providers Care Area Director Name Role Phone Sarah Alejo EZRA Primary Care Provider [phone] Reason for Visit * Reason Onset Date Comments Other 09/18/2020 Encounter Details Date Type Department Care Team (Late st Contact Info) Description 09/18/2020 [place] [address] Satya Wills MD [facility] [place] [address] Other Social History Tobacco Use Types Packs/Day Years [...] encounter Miscellaneous Notes * Telephone Encounter - Jenelle Carr Sendy - 09/18/2020 1:28 PM EDT Call Center / [facility] Message - General Issue Call Provider patient sees in Clinic: Elma Caller and relationship (if other than patient-full name): Self Call back number: [phone] Ok to leave a message: yes Reason for call: Patient called to let us know that she's been feeling good after the medication change so far, and has not had any seizures. FYI. Disposition of Call (choose one and remove others): ??? Routine Message sent to the Nurse: X Nurse/[facility] contacted via: Message: y Call: y Pager: n documented in this encounter Plan of Treatment Upcoming Encounters Date Type Department Care Team (Late st Contact Info) Description 03/06/2024 1:30 PM EST [place] [address] Satya Wills MD [facility] [place] [place] [address] documented as of this encounter Visit Diagnoses Not on filedocumented in this encounter Care Teams Area Director Relationship Specialty Start Date End Date Sarah Alejo APRN [address] [place] [address] PCP - General Internal Medicine 11/06/19 documented as of this encounter
--- OUTSIDE RECORDS SUMMARY | 2023-12-04 16:30 | XMS_ITS | Encounter Summary ---
Author Organization [facility] Address [facility] [place] [address] Care Team Providers Care Business Insurance Agent Name Role Phone Sarah Alejo APRN Primary Care Provider [phone] Reason for Visit * Reason Onset Date Comments Medication Refill 09/01/2021 Encounter Details Date Type Department Care Team (Late st Contact Info) Description 09/01/2021 [place] [address] Satya Wills MD [facility] [place] [place] [address] Partial epilepsy with impairment of consciousness, intractable; [...] encounter Miscellaneous Notes * Telephone Encounter - Maxine Austin - 09/01/2021 12:40 PM EDT Call Center / Printing Press Machinist Message Prescription Refill Request Clinical Marsing message Provider patient sees in Clinic: Satya Wills MD Caller and relationship (if other than patient-full name): Josiane Call back Number: [phone] Ok to leave a message: yes Any issues needing to be addressed prior to medication refill? (ex: dose increase, not at pharmacy): she would like to change this from the liquid to the tablets since the insurance company will not pay for the liquid but will pay for the tablets. Name of Med: Lacosamide (Vimpat) 10 mg/mL Solution Strength of Pills: 10 mg Dosing Directions: 15 ml ??(=150 mg ) twice a day How Patient is Currently Taking Medication: by mouth 30 or 90 Day Supply: Pharmacy: [facility] Last Appointment: 04/20/21 Next Appointment: (IF CALL IS FROM PATIENT/FAMILY AND THERE IS NO FOLLOW UP SCHEDULED REVIEW CHART TO SEE WHEN APPOINTMENT IS NEEDED AND SCHEDULE BEFORE SENDING MESSAGE) 10/18/21 Is Patient out of Medication?: yes Call Center / Printing Press Machinist Message Prescription Refill Request Clinical Marsing message Provider patient sees in Clinic: Satya Wills MD Caller and relationship (if other than patient-full name): Josiane Call back Number: [phone] Ok to leave a message: yes Any issues needing to be addressed prior to medication refill? (ex: dose increase, not at pharmacy): Name of Med: clonazePAM (KlonoPIN) 1 mg Tablet, Rapid Dissolve Strength of Pills: 1 mg Dosing Directions: Take 1 tablet by mouth 2 times daily How Patient is Currently Taking Medication: by mouth 30 or 90 Day Supply: Pharmacy: [facility] Last Appointment: 04/20/21 Next Appointment: (IF CALL IS FROM PATIENT/FAMILY AND THERE IS NO FOLLOW UP SCHEDULED REVIEW CHART TO SEE WHEN APPOINTMENT IS NEEDED AND SCHEDULE BEFORE SENDING MESSAGE) 10/18/21 Is Patient out of Medication?: no Call Center / Printing Press Machinist Message Prescription Refill Request Clinical Marsing message Provider patient sees in Clinic: Satya Wills MD Caller and relationship (if other than patient-full name): Josiane Call back Number: [phone] Ok to leave a message: yes Any issues needing to be addressed prior to medication refill? (ex: dose increase, not at pharmacy): Name of Med: hydrOXYzine (Atarax) 10 mg/5 mL Solution Strength of Pills: 10 mg/5 mL Dosing Directions: Take 12.5 mLs by mouth 3 times daily How Patient is Currently Taking Medication: by mouth 30 or 90 Day Supply: Pharmacy: [facility] Last Appointment: 04/20/21 Next Appointment: (IF CALL IS FROM PATIENT/FAMILY AND THERE IS NO FOLLOW UP SCHEDULED REVIEW CHART TO SEE WHEN APPOINTMENT IS NEEDED AND SCHEDULE BEFORE SENDING MESSAGE) 10/18/21 Is Patient out of Medication?: no documented in this encounter Plan of Treatment Upcoming Encounters Date Type Department Care Team (Late st Contact Info) Description 03/06/2024 1:30 PM EST [place] [address] Satya Wills MD 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
--- OUTSIDE RECORDS SUMMARY | 2023-12-04 16:30 | XMS_ITS | Encounter Summary ---
Author Organization [facility] Address [facility] [place] [address] Care Team Providers Care City Carrier Name Role Phone Sarah Alejo EZRA Primary Care Provider [phone] Encounter Details Date Type Department Care Team (Late st Contact Info) Description 01/16/2020 Telephone Gastroenterology at [facility] [place] [address] Alem Manuel Social History Tobacco Use Types [...] * Telephone Encounter - Alem Manuel - 01/16/2020 3:47 PM EST Josiane Pacheco [id number] Diagnosis/Indication: EGD 1. Have you ever had a/an Upper Endoscopy before? Yes: Date 01/14/20 If yes, did you have any problems [...] as of 01/14/20: 67.1 kg (148 lb). Age:64 y.o. documented in this encounter Plan of Treatment Upcoming Encounters Date Type Department Care Team (Late st Contact Info) Description 03/06/2024 1:30 PM EST Office [place] [address] Satya Wills MD [facility] [place] [address] documented as of this encounter Visit Diagnoses Not on filedocumented in this encounter Care Teams City Carrier Relationship Specialty Start Date End Date Sarah Alejo APRN [address] [place] [address] PCP - General Internal Medicine 11/06/19 documented as of this encounter
--- OUTSIDE RECORDS SUMMARY | 2023-12-04 16:30 | XMS_ITS | Encounter Summary ---
Author Organization [facility] [place] [address] Care Team Providers Care Tester Operator Helper Name Role Phone Sarah Alejo MILL HAND PLATE MILL Primary Care Provider [phone] Encounter Details Date Type Department Care Team (Late Contact Info) Description 03/11/2020 Ancillary Procedure Radiology Library at [facility], [place], [facility] [place] [facility] [address] Sarah Alejo, MILL HAND PLATE MILL [address], [place] [id number] Social History Tobacco Use Types Packs/Day Years [...] 1:30 PM EST [place] [address] Satya Wills MD [facility] [place] [address] documented as of this encounter Procedures Procedure Name Priority Date/Time Associated Diagnosis Comments FILM LIBRARY STORAGE ONLY CT CHEST ABDOMEN PELVIS Routine 03/11/2020 12:00 AM EST documented in this encounter Results * Film Library- Storage Only CT Chest Abdomen Pelvis (03/11/2020 12:00 AM EST) Narrative BRIDGET - 03/12/2020 9:47 AM EST This exam is auto-finalizing. It's purpose is for storage only. Sarah Alejo APRN IMG FILM LIBRARY ORD ERABLES [place], [place] documented in this encounter Visit Diagnoses Not on filedocumented in this encounter Care Teams Tester Operator Helper Relationship Specialty Start Date End Date Sarah Alejo APRN [address] [place] [address] PCP - General Internal Medicine 11/06/19 documented as of this encounter
--- OUTSIDE RECORDS SUMMARY | 2023-12-04 16:30 | XMS_ITS | Encounter Summary ---
Author Organization [facility] [place] [address] Care Team Providers Care Server Systems Administrator Name Role Phone Sarah Alejo APRN Primary Care Provider [phone] Encounter Details Date Type Department Care Team (Late Contact Info) Description 12/09/2019 Telephone [place] [address] [facility] Escobar, [facility] Social History Tobacco Use Types Packs/Day Years [...] Telephone Encounter - Deidre Escobar - 12/09/2019 2:41 PM EDT Called to schedule EGD needs parker left VM documented in this encounter Plan of Treatment Upcoming Encounters Date Type Department Care Team (Late st Contact Info) Description 03/06/2024 1:30 PM EST [place] [address] Satya Wills MD [facility] [place] [address] documented as of this encounter Visit Diagnoses Not on filedocumented in this encounter Care Teams Server Systems Administrator Relationship Specialty Start Date End Date Sarah Alejo, EZRA [address] [place] [address] PCP - General Internal Medicine 11/06/19 documented as of this encounter
--- OUTSIDE RECORDS SUMMARY | 2023-12-04 16:31 | XMS_ITS | Encounter Summary ---
Author Organization Formerly [facility], [facility] Address [facility] [place] [address] Care Team Providers Care Frothing Machine Operator Name Role Phone Husam Rosas MD Primary Care Provider [phone] Encounter Details Date Type Department Care Team (Late st Contact Info) Description 01/08/2016 10:00 AM EST - 01/08/2016 10:30 AM EST [place] [phone] Ramesh Johnson MD [facility] [place] [address] EGD WITH BIOPSY (WRVU 2.39) Social History Tobacco Use Types Packs/Day Years Used Date Smoking Tobacco: Every Day Cigarettes Smokeless Tobacco: Never Comments:1 a week Alcohol Use Standard Drinks/Week Comments No 0 (1 standard drink = 0.6 oz pur e alcohol) occasional Sex and Gender Information Value Date Recorded Sex Assigned at Not on file Gender Identity Not on file Sexual Orientation Not on file documented as of this encounter Last Filed Vital Signs Vital Sign Reading Time Taken Comments Blood Pressure 136/77 01/08/2016 9:15 AM EST Pulse 75 01/08/2016 9:15 AM EST Temperature - - Respiratory Rate 16 01/08/2016 9:15 AM EST Oxygen Saturation 95% 01/08/2016 9:15 AM EST Inhaled Oxygen Concentration - - Weight - - Height - - Body Mass Index - - documented in this encounter Discharge Instructions * Discharge Instructions* Camila Theodore RN - 01/08/2016 10:47 AM EST UPPER GI ENDOSCOPY WHAT TO EXPECT AFTER THE PROCEDURE After the test you may feel a little more gassy or bloated than usual, this is normal. ACTIVITY Because of the sedation that you received Your judgement and reaction time are affected ?? Go home and rest quietly for the remainder of the day. You may resume your normal activities tomorrow. ?? Change from one position to the next slowly. You may lose your balance unexpectedly Be careful on stairs, as you may be unsteady on your feet. FOR THE NEXT 24 HRS ?? DO NOT DRIVE OR OPERATE ANY MACHINERY ?? DO NOT DRINK ALCOHOLIC BEVERAGES ?? DO NOT SIGN LEGAL DOCUMENTS ?? If you are a smoker: DO NOT SMOKE WHILE YOU ARE ALONE Diet ?? Start by eating small portions of foods that ordinarily will not upset your stomach. Be gentle with what you choose to start with. ?? Drink plenty of fluids ( unless otherwise told not to) Medications You may have a mild sore throat. Ice chips, popsicles, over the counter throat lozenges or spray may help numb your throat. This procedure should not cause a fever. IV SITE-- slight redness or tenderness is normal, you can use warm compresses if you get concerned.If the tenderness +/or redness increases or foul drainage and a red streak occurs, please contact your PCP immediately. WHEN SHOULD YOU CALL FOR HELP? Call 911 anytime you think that you need emergency care. For example, call if: You passed out (lost consciousness). You cough up blood. You vomit blood or what looks like coffee grounds. You pass maroon or very bloody stools. Call your healthcare provider or seek immediate medical attention if: You have trouble swallowing. You have belly pain. Your stools are black or tarlike or have streaks of blood. You are sick to your stomach or cannot keep fluids down. Watch closely for changes in your health, and be sure to contact your doctor IF Your throat still hurts after a day or two You do not get better as expected. Monday-Monday Same Day Endo [phone] [id number]-[id number] Otherwise contact [phone] and ask to speak to the tattoo artist environmental programs manager Follow-up care is a baldwin part of your treatment and safety. Be sure to make and go to all appointments, and call your doctor if you are having problems. Instructions have been reviewed and patient expresses understanding documented in this encounter Medications at Time of Discharge Medication Sig Dispensed Refills Start Date End Date PHENADOZ [address] 25 mg rectally as needed. Reported on 07/13/2016 0 06/01/2015 01/14/2020 hydrOXYzine (VISTARIL) 25 mg Capsule take 1 capsule by mouth twice a day 60 capsule 5 10/12/2015 05/16/2016 meloxicam (MOBIC) 7.5 mg Tablet take 1 tablet by mouth daily 30 tablet 5 10/12/2015 04/07/2016 EPZICOM 600-300 mg TabletIndications:Human immunodeficiency virus (HIV) disease take 1 tablet by mouth daily 30 tablet 5 10/12/2015 03/14/2016 clonazePAM (KLONOPIN) 1 mg Tablet TAKE 1 TABLET BY MOUTH EVERY MORNING AND 2 TABLETS EVERY EVENING 90 tablet 5 08/17/2015 02/07/2016 VIMPAT 200 mg Tablet TAKE 1 TABLET BY MOUTH 2 TIMES A DAY 60 tablet 5 08/10/2015 02/07/2016 darunavir (PREZISTA) 800 mg TabletIndications:HIV disease Take 1 tablet by mouth daily. 30 tablet 3 07/08/2015 02/08/2016 omeprazole (PRILOSEC) 20 mg Capsule, Delayed Release(E.C.)Indications :Gastro-esophageal reflux disease with esophagitis,S/P balloon dilatation of esophageal stricture Take 2 capsules by mouth daily. 60 capsule 11 06/30/2015 06/29/2016 APTIOM 400 mg Tablet take 2 tablets (800MG) by mouth once daily 60 tablet 11 04/13/2015 04/07/2016 triamcinolone (KENALOG) 0.1 % OintmentIndications:Derm atitis Apply to affected areas on the trunk and extremities twice a day as needed for itching. 454 g 1 03/06/2015 03/07/2017 hydrocortisone 2.5 % Cream Apply topically 2 times daily. 30 g 3 02/10/2015 01/14/2020 naproxen sodium (ANAPROX) 550 mg Tablet Take 550 mg by mouth 2 times daily as needed. 01/14/2020 prochlorperazine (COMPAZINE) 10 mg TabletIndications:Drug-i nduced nausea and vomiting Take 1 tablet by mouth 3 times daily as needed. 15 tablet 3 03/28/2014 01/14/2020 albuterol (PROVENTIL HFA;VENTOLIN HFA) 90 mcg/Actuation inhaler Inhale 2 puffs into the lungs every 4 hours as needed. Use with spacer 01/14/2020 polyethylene glycol (MIRALAX) 17 gram/dose powder Take 17 g by mouth as needed. 01/14/2020 Multivitamins with Iron TabIndications:HIV disease Take 1 tablet by mouth daily. 30 tablet 11 06/04/2010 01/14/2020 documented as of this encounter H&P Notes * Ramesh Johnson MD - 01/08/2016 10:09 AM EST Gastroenterology and Hepatology Pre-Procedure History and Physical Exam Procedure: EGD: Indication: esophageal stricture dilate Patient Active Problem List Diagnosis Code ??? Localization-related (focal) (partial) epilepsy and epileptic syndromes with complex partial seizures, with intractable epilepsy G40.219 ??? HIV disease B20 ??? Dyslipidemia E78.5 ??? Migraine G43.909 ??? Obesity E66.9 ??? Depression F32.9 ??? Fissure in ano K60.2 ??? Hemorrhoids K64.9 ??? Gastro-esophageal reflux disease with esophagitis K21.0 EXAM: HEENT: Airway examined, oropharynx clear Mallampati Score: II (soft palate, uvula, fauces visible) LUNGS: Clear to auscultation HEART: Regular rate [...] 1:30 PM EST [place] [address] Satya Wills MD [facility] [place] [address] documented as of this encounter Procedures Procedure Name Priority Date/Time Associated Diagnosis Comments SURGICAL PATHOLOGY REPORT Routine 01/08/2016 10:40 AM EST SPECIMEN TO PATHOLOGY Routine 01/08/2016 10:40 AM EST EGD,WITH DILATION ESOPHAGUS WITH BALLOON,< 30 MM (WRVU 2.67) 01/08/2016 10:20 AM EST 8 week repeat EGD for retreatment Dilation EGD WITH BIOPSY (WRVU 2.39) 01/08/2016 10:20 AM EST 8 week repeat EGD for retreatment Dilation UPPER GI ENDOSCOPY Routine 01/08/2016 10 :14 AM EST documented in this encounter Results * Surgical Pathology Report (01/08/2016 10:40 AM EST) Final Diagnosis [id number] ?Location: 4T; EA09; A The signing pathologist has (i) examined the relevant preparation(s) for the specimen(s) and (ii) rendered or confirmed the diagnosis(es). . ? Addendum ADDENDUM DISCUSSION Negative for H. pylori on immunostain. Electronically signed by: ??Meghana Valle MD Verified: ??01/18/2016 ?Pathologist ?Surgical Pathology DIAGNOSIS Antrum, ??biopsy: Gastric antral mucosa with active chronic inflammation, focal erosion, and reactive epithelial changes. Immunostain of H. pylori will be performed and the result will be reported in an addendum. Electronically signed by: ??Meghana Valle MD Verified: ??01/12/2016 ?Pathologist ADDITIONAL STUDIES Immunohistochemistry Studies: Formalin-fixed, paraffin-embedded tissue sections are studied using the polymer technique with appropriate positive and negative controls. ?These IHC studies provide the pathologist with adjunctive diagnostic information. Antibody specificity has been verified by testing antibodies on a series of in-house tissues with known immunohistochemical performance characteristics. The clinical interpretation of any antibody positive staining or its absence is evaluated within the context of clinical presentation, morphology, histopathological criteria and other diagnostic tests. Block ? Antibody ?Result (Positive/Negative) A1 ? H. pylori ?Will be performed and the result will be ? reported in an addendum. CLINICAL INFORMATION Specimen Submitted: A - Superficial linear erosions antrum Clinical History: Gastritis Clinical Diagnosis: Same SPECIMEN PROCESSING A - Labeled/Fixative: Superficial linear erosions antrum, formalin. Quantity/Size: Four, 0.3-0.6 cm. Tissue Description: ??Soft, sanabria-white tissue ??. Sections/Processing: (T1) ??ejr 01/18/2016 9:33 AM EST [facility] GI Biopsy 01/08/2016 10:4 0 AM EST 01/08/2016 10:40 AM EST Ramesh Johnson MD PATHOLOGY/CYTOLOGY O NANCY Performing Organization Address [facility] Co de Phone Number [facility] [place] [address] * Specimen to Pathology (surgical or derm) (01/08/2016 10:40 AM EST) AP Specimen 01/08/2016 10:4 0 AM EST 01/08/2016 10:40 AM EST Narrative [facility] - 01/08/2016 10:40 AM EST Specimen requisition ordered. ??Separate Pathology report to follow Ramesh Johnson MD PATHOLOGY/CYTOLOGY O NANCY Performing Organization Address [facility] Co [place] [address] * UPPER GI ENDOSCOPY (01/08/2016 10:14 AM EST) UPPER GI ENDOSCOPY [facility] Endoscopy ___ Procedure Date: 01/08/2016 10:14 AM ? Patient Name: Annie Pacheco ? Date of : 1955 ? Age: 60 ? Order #: [id number] ? Instrument Name: [id number] ? ___ Procedure: ? Upper GI endoscopy Indications: ? Dysphagia, H/o esophageal stenosis, ? sx improved after dilation to 16 mm ? in September 2015 Providers: ? Ramesh Johnson MD, Nikki York, ? RN, Paty Kaminski MD: ?Husam Rosas MD Medicines: ? Propofol per Anesthesia Complications: ? No immediate complications. ___ Procedure: ? The procedure, indications, benefits, ? risks [...] ? procedure well. ? Findings: ? The Z-line was regular and was found 38 cm from the ? incisors. ? A mild Schatzki ring (acquired) was found at the ? gastroesophageal junction. A TTS dilator was passed ? through the scope. Dilation with a 16-17 mm balloon ? (to a maximum balloon size of 17 mm) dilator was ? performed. ? This created a confined mucosal disruption (dilation) ? Hiatal hernia from 38-40 cm. ? Localized moderate inflammation characterized by ? linear erosions was found in the gastric antrum. ? Biopsies were taken with a cold forceps for histology. ? The examined duodenum was normal. ? Impression: ?- Z-line regular, 38 cm from the ? incisors. ? - Mild Schatzki ring. Dilated. ? - Gastritis. Biopsied. ? - Normal examined duodenum. Recommendation: ?- Await pathology results. ? Dilate PRN ? Continue bid PPI ? Attending Participation: ? I personally performed the entire procedure. ? Ramesh Johnson MD 01/08/2016 10:49:12 AM This report has been signed electronically. Number of Addenda: 0 Note Initiated On: 01/08/2016 10:14 AM PROVATION 01/08/2016 10:1 4 AM EST Husam Rosas MD GENERAL SURGICAL ORDERABLES PROVATION documented in this encounter Visit Diagnoses Not on filedocumented in this encounter Active and Recently Administered Medications Times are shown in EST. Continuous Medication Order 01/06/2016 01/07/2016 01/08/2016 lactated ringers infusion (CANCELED) 100 mL/hr, Intravenous, CONTINUOUS, Starting on Mon01/08/16 at 0930, Until Mon01/08/16 at 1107, Endoscopy (Day of Procedure) 1021 (New Bag - Prov ider: Tyrese Mendoza CRNA) documented in this encounter Care Teams Frothing Machine Operator Relationship Specialty Start Date End Date Husam Rosas MD [address] [facility] [address] [place] [address] PCP - General 01/19/10 01/22/17 documented as of this encounter
--- OUTSIDE RECORDS SUMMARY | 2023-12-04 16:31 | XMS_ITS | Encounter Summary ---
Author Organization [facility] [address] Care Team Providers Care Director Of Aviation Name Role Phone Husam Rosas MD Primary Care Provider [phone] Reason for Visit * Reason Onset Date Comments Medication Refill 11/03/2016 Encounter Details Date Type Department Care Team (Late Contact Info) Description 11/03/2016 Ref[place] [address] Satya Wills MD [facility] [place] [address] Social History Tobacco Use Types Packs/Day Years [...] 1:30 PM EST Office [place] [address] Satya Wills MD [facility] [place] [address] documented as of this encounter Visit Diagnoses Not on filedocumented in this encounter Care Teams Director Of Aviation Relationship Specialty Start Date End Date Husam Rosas MD [address] [place] [address] PCP - General 01/19/10 01/22/17 documented as of this encounter
--- OUTSIDE RECORDS SUMMARY | 2023-12-04 16:31 | XMS_ITS | Encounter Summary ---
Author Organization [facility] [place] [address] Care Team Providers Care Technical Project Coordinator Name Role Phone Husam Rosas MD Primary Care Provider [phone] Encounter Details Date Type Department Care Team (Late st Contact Info) Description 10/06/2016 Telephone [place] [id number] Fely Wong RN [facility] [place] [address] Social History Tobacco Use Types Packs/Day Years [...] Miscellaneous Notes * Telephone Encounter - Fely Wong RN - 10/06/2016 12:18 PM EDT Multiple phone messages left for Josiane Wanting to check in on her Follow up on ER visit (very highETOH levels), worries about adherence and that she needs labs done Will await call back documented in this encounter Plan of Treatment Upcoming Encounters Date Type Department Care Team (Late st Contact Info) Description 03/06/2024 1:30 PM EST Office [place] [address] Satya Wills MD [facility] [place] [address] documented as of this encounter Visit Diagnoses Not on filedocumented in this encounter Care Teams Technical Project Coordinator Relationship Specialty Start Date End Date Husam Rosas MD [address] [place] [address] PCP - General 01/19/10 01/22/17 documented as of this encounter
--- OUTSIDE RECORDS SUMMARY | 2023-12-04 16:31 | XMS_ITS | Encounter Summary ---
Author Organization [facility] [place] [address] Care Team Providers Care Golf Course Assistant Name Role Phone Husam Rosas MD Primary Care Provider [phone] Encounter Details Date Type Department Care Team (Late st Contact Info) Description 07/14/2016 Telephone [place] [address] Giuliana Fofana LICSW [facility] [place] [address] Social History Tobacco Use Types Packs/Day Years [...] encounter Miscellaneous Notes * Telephone Encounter - Giuliana Barrera LICSW - 07/14/2016 8:54 AM EDT TELEPHONE MESSAGE: This marketing copywriter attempted to reach pt by phone to follow up after encounter yesterday concerning to marketing copywriter for SI. In voicemail message left for pt this morning, marketing copywriter advised of care and concern for pt, and confirmed that marketing copywriter will attempt to reach pt again Monday morning as planned. Cargo Supervisor reminded pt of emergency services contact available to her, an information card marketing copywriter gave to pt yesterday. ALONSO Graham 07/14/16 8:55 documented in this encounter Plan of Treatment Upcoming Encounters Date Type Department Care Team (Late st Contact Info) Description 03/06/2024 1:30 PM EST [place] [address] Satya Wills MD [facility] [address] NEUROLOGY [place] [address] documented as of this encounter Visit Diagnoses Not on filedocumented in this encounter Care Teams Golf Course Assistant Relationship Specialty Start Date End Date Husam Rosas MD [address] [place] [address] PCP - General 01/19/10 01/22/17 documented as of this encounter
--- OUTSIDE RECORDS SUMMARY | 2023-12-04 16:31 | XMS_ITS | Encounter Summary ---
Author Organization [facility] Address [facility] [place] [address] Care Team Providers Care Macaroni Maker Name Role Phone Sarah Alejo APRN Primary Care Provider [phone] Reason for Visit * Reason Comments Medication Refill Encounter Details Date Type Department Care Team (Late Contact Info) Description 02/07/2016 [place]ill [place] [address] Drew Heaton MD [facility] [address] [place] [address] Human immunodeficiency virus (HIV) disease Social History [...] 1:30 PM EST [place] [address] Satya Wills MD [facility] [place] [address] documented as of this encounter Visit Diagnoses Diagnosis Human immunodeficiency virus (HIV) disease Human immunodeficiency virus [HIV] disease documented in this encounter Care Teams Macaroni Maker Relationship Specialty Start Date End Date Sarah Alejo APRN [address] [place] [address] PCP - General Internal Medicine 11/06/19 documented as of this encounter
--- OUTSIDE RECORDS SUMMARY | 2023-12-04 16:31 | XMS_ITS | Encounter Summary ---
Author Organization [facility] Address [facility] [place] [address] Care Team Providers Care Servicenow Administrator Developer Name Role Phone Husam Rosas MD Primary Care Provider [phone] Encounter Details Date Type Department Care Team (Latest Contact Info) Description 07/13/2016 3:30 PM EDT Office Visit Infectious Disease at [facility] [address] Drew Heaton MD [facility] [place] [address] Human immunodeficiency virus (HIV) disease (Primary Dx) Social History Tobacco Use Types Packs/Day Years [...] as of this encounter Progress Notes * Drew Heaton MD - 07/13/2016 3:30 PM EDT This is a scheduled appointment for an HIV infected woman last seen by me in clinic four months ago. At that time she had been doing unusually well for a number of months (viral load undetectable twice in a row), but more recently she has had an emotionally challenging time subsequent to the of her mother; and as a result she is now poorly adherent to therapy. She does though say that she hasn't resumed drinking alcohol. She had undergone two dilatations of gastric stricture in the summerof 2015 and her problem with vomiting remains dramatically improved. Last menstrual period 11/26/2010. Overweight woman in no apparent distress, though with flat affect. NC/AT. EOMI. Skin with diffuse rash, scattered excoriated papules, but better than previously. Throat benign. Heart RRR no m/r/g. Lungs CTA. Abdomen benign. Neuro. grossly nonfocal. Assessment and Plan: 1. HIV. She continues a long term acute care registered nurse pattern of brief periods of relatively suppressed HIV with longerperiods of increased viral loads during which time she claimed excellent adherence but with resistance tests showing no mutations. Most recently in 9079-2054 her viral load had remained +/-20k and her CD4 had been dropping,actually into the AIDS range. We had been challenged to engage Josiane in better understanding this, but it now seems that the problem at least in part had been problems keeping the pills down because of the gastric stricture, though also clearly challenged by alcohol use. I will thus recheck CD4 and PCR this week (she doesn't have time today so will do locally with orders I have provided) and every 3-4 months (given prior poor adherence) and base further decisions thereon. 2. Adherence. She previously stated that she has been 100% adherent, though today admits to poor adherence - I reinforced the importance of resuming better adherence, especially given her AIDS range CD4. 3. Chemoprophylaxis. None previously indicated by CD4, but she will need Bactrim if repeat CD4 today is still low. 4. Immunoprophylaxis. Up to date. 5. Risk reduction. Not sexually active since last seen - she has previously said that she is alwayssafe. 6. Seizure disorder/headaches. She is under the care of Dr. Wills. 7. Psychiatric. Her mood is down again secondary to the of her mother. She did meet Alix Dixon at the end of the clinic today. 8. 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 Pap smear February 2013 was normal and will try to reschedule to coordinate with next appointment (was to happen at prior appointments, but didn't get scheduled). 9. Obesity. Not addressed today. 10. Hyperlipidemia. Not addressed today. 11. Smoking. Had stopped smoking in February, but resumed and was barely contemplative about stopping at my last appointment. She did though stop over the holidays, 2013 in conjunction with [facility] but again started and doesn't feel that she can address this at this time. 12. Rectal bleeding. Better after treatment with nitroglycerin, and now s/p banding in December 2013. 13. General health care. Mammogram February 2014. Colonoscopy 04/28/10 revealed multiple polyps and repeat in December 2013 revealed three - f/u in ? Years. She also underwent hemorrhoid banding at the same time.. 14. Transaminitis. Significantly worse in 2012, but it turns out she was drinking fairly significantly and normalized when she stopped; but now consistently markedly abnormal. Recheck of HBV sAg and HCV Ab negative in 2014 so it would seem most likely this is ethanol. Recheck today now that she says she has markedly reduced alcohol use. 15. Rash. Improved. 16. Odynophagia/gastric stricture. Much improved after dilatation. 25 minutes [id number] time spent with the patient, 20 minutes of which was in discussion and counseling. Follow-up in 3-4 months. documented in this encounter Plan of Treatment Upcoming Encounters Date Type Department Care Team (Late st Contact Info) Description 03/06/2024 1:30 PM EST [place] [address] Satya Wills MD [facility] [place] [address] documented as of this encounter Visit Diagnoses Diagnosis Human immunodeficiency virus (HIV) disease- Primary Human immunodeficiency virus [HIV] disease documented in this encounter Care Teams Servicenow Administrator Developer Relationship Specialty Start Date End Date Husam Rosas MD [address] [place] [address] PCP - General 01/19/10 01/22/17 documented as of this encounter
--- OUTSIDE RECORDS SUMMARY | 2023-12-04 16:31 | XMS_ITS | Encounter Summary ---
Author Organization [facility] [place] [address] Care Team Providers Care Tobacco Cloth Reclaimer Name Role Phone Husam Rosas MD Primary Care Provider [phone] Encounter Details Date Type Department Care Team (Late Contact Info) Description 07/14/2016 Telephone [place] [address] Giuliana Fofana LICSW [facility] [place] [address] Social History Tobacco Use Types Packs/Day Years [...] Telephone Encounter - Giuliana Barrera LICSW - 07/15/2016 10:29 AM EDT BEHAVIORAL HEALTH CONSULT/ TELEPHONE MESSAGE: This senior underwriter retrieved a voicemail message from pt left after 3pm, very garbled, slurred, and difficult to decipher. Pt did say that she really needs to speak w senior underwriter. Facilities Locator and pt previously agreed to phone call the morning of 07/15. ALONSO Graham 07/15/16 10:31 documented in this encounter Plan of Treatment Upcoming Encounters Date Type Department Care Team (Late st Contact Info) Description 03/06/2024 1:30 PM EST Office [place] [address] Satya Wills MD [facility] [address] [place] [address] documented as of this encounter Visit Diagnoses Not on filedocumented in this encounter Care Teams Tobacco Cloth Reclaimer Relationship Specialty Start Date End Date Husam Rosas MD [address] [facility] [place] [address] PCP - General 01/19/10 01/22/17 documented as of this encounter
--- OUTSIDE RECORDS SUMMARY | 2023-12-04 16:31 | XMS_ITS | Encounter Summary ---
Author Organization [facility] Address [facility] [place] [address] Care Team Providers Care Cyber Security Consultant Name Role Phone Husam Rosas MD Primary Care Provider [phone] Reason for Visit * Reason Comments Medication Refill Encounter Details Date Type Department Care Team (Late st Contact Info) Description 02/07/2016 [place] [id number] Satya Wills MD [facility] [place] [address] Social History Tobacco Use Types Packs/Day Years [...] encounter Miscellaneous Notes * Telephone Encounter - Jose Delgado RN - 02/08/2016 11:56 AM EST Script faxed to the pharmacy. Jose * Telephone Encounter - Jose Delgado RN - 02/08/2016 9:08 AM EST Pharmacy requesting medication refill for patient. Last appt 11/17 Next appt 04/11 documented in this encounter Plan of Treatment Upcoming Encounters Date Type Department Care Team (Late st Contact Info) Description 03/06/2024 1:30 PM EST Office [place] [address] Satya Wills MD [facility] [place] [address] documented as of this encounter Visit Diagnoses Not on filedocumented in this encounter Care Teams Cyber Security Consultant Relationship Specialty Start Date End Date Husam Rosas MD [address] [place] [address] PCP - General 01/19/10 01/22/17 documented as of this encounter
--- OUTSIDE RECORDS SUMMARY | 2023-12-04 16:31 | XMS_ITS | Encounter Summary ---
Author Organization [facility] [place] [address] Care Team Providers Care Software Quality Assurance Engineer Name Role Phone Husam Rosas MD Primary Care Provider [phone] Encounter Details Date Type Department Care Team (Late st Contact Info) Description 07/18/2016 Telephone [place] [address] Giuliana Fofana LICSW [facility] [place] [address] Social History Tobacco Use Types Packs/Day Years [...] Telephone Encounter - Giuliana Barrera LICSW - 07/18/2016 4:12 PM EDT BEHAVIORAL HEALTH CONSULT/ Telephone message: This policy writer sales attempted to reach pt by phone, but could only leave message, expressing concern for ptand eagerness to connect. Recycling Coordinator gave contact info and days/times available to reach, and said that policy writer sales will attempt to reach pt again in the week. ALONSO Graham 07/18/16 16:13 documented in this encounter Plan of Treatment Upcoming Encounters Date Type Department Care Team (Late st Contact Info) Description 03/06/2024 1:30 PM EST [place] [address] Satya Wills MD [facility] [place] [address] documented as of this encounter Visit Diagnoses Not on filedocumented in this encounter Care Teams Software Quality Assurance Engineer Relationship Specialty Start Date End Date Husam Rosas MD [address] [facility] [place] [address] PCP - General 01/19/10 01/22/17 documented as of this encounter
--- OUTSIDE RECORDS SUMMARY | 2023-12-04 16:31 | XMS_ITS | Encounter Summary ---
Author Organization [facility] [place] [address] Care Team Providers Care Deep Sea Diver Name Role Phone Husam Rosas MD Primary Care Provider [phone] [phone] Encounter Details Date Type Department Care Team (Late st Contact Info) Description 04/08/2016 Telephone Infectious Disease at [facility] [place] [address] Suzie Mars RN Social History Tobacco Use Types Packs/Day Years Used Date Smoking Tobacco: Former Cigarettes Smokeless Tobacco: Never Comments:quit around 2015 Alcohol Use Standard Drinks/Week Comments No 0 (1 standard drink = 0.6 oz pur e alcohol) occasional Sex and Gender Information Value Date Recorded Sex Assigned at Not on file Gender Identity Not on file Sexual Orientation Not on file documented as of this encounter Miscellaneous Notes * Telephone Encounter - Suzie Mars RN - 04/08/2016 4:09 PM EST TC to Shayla on 03/30/16 to relay most recent labs. She was very happy to hear the news that she was undetectable. She had previously told me when I had seen her at her clinic visit that we were all going to be pleasantly surprised. At that visit I introduced her to ALONSO Graham. When I spoke to Shayla she was slightly slurring her words; expressing great concern over her family bickering over her mother, who was hospitalized in [place]; shayla feeling she should make arrangements to take a bus to [place] to visit her mom and to straighten this family out Today Shayla calls me to ask for her most recent labs; she had no recollection that I had called on 03/30/16 with lab results. Speech clear today, no slurring today Alix GUPTA had called Shayla last week ; Shayla was very grateful for this and found Alix's advice quite helpful. Shayla did not get on the bus to [place]; she did tell herself she was not at fault for her messed up family and that Shayla can not fixed the patterns and cycles that have been in place for many years . Shayla is proud she is learning new skills documented in this encounter Plan of Treatment Upcoming Encounters Date Type Department Care Team (Late st Contact Info) Description 03/06/2024 1:30 PM EST Office [place] [address] Satya Wills MD [facility] [place] [address] documented as of this encounter Visit Diagnoses Not on filedocumented in this encounter Care Teams Deep Sea Diver Relationship Specialty Start Date End Date Husam Rosas MD [address] [facility] [place] [address] PCP - General 01/19/10 01/22/17 documented as of this encounter
--- OUTSIDE RECORDS SUMMARY | 2023-12-04 16:31 | XMS_ITS | Encounter Summary ---
Author Organization [facility] [place] [address] Care Team Providers Care Manager Battery Name Role Phone Husam Rosas MD Primary Care Provider [phone] [phone] Reason for Visit * Reason Onset Date Comments Medical Care Coordination 09/29/2016 Encounter Details Date Type Department Care Team (Late st Contact Info) Description 09/29/2016 Telephone [place] [address] Alida Francisco, RN Medical Care Coordination Social History Tobacco Use Types Packs/Day Years [...] encounter Miscellaneous Notes * Telephone Encounter - Alida Francisco RN - 09/29/2016 9:07 AM EDT Call placed to patient to discuss over due lab test. We have received CBC and CMP. Spoke with [facility].They have no recent HIV or CD4 results. Call placed to Josiane. Message left asking her to complete those test at [facility] with slips mailed to her on 08/31 by Shireen or to please have labs drawn prior to 10/17appointment with Dr Heaton documented in this encounter Plan of Treatment Upcoming Encounters Date Type Department Care Team (Late st Contact Info) Description 03/06/2024 1:30 PM EST [place] [address] Satya Wills MD [facility] [place] [address] documented as of this encounter Visit Diagnoses Not on filedocumented in this encounter Care Teams Manager Battery Relationship Specialty Start Date End Date Husam Rosas MD [address] [place] [address] PCP - General 01/19/10 01/22/17 documented as of this encounter
--- OUTSIDE RECORDS SUMMARY | 2023-12-04 16:31 | XMS_ITS | Encounter Summary ---
Author Organization [facility] Address [facility] [place] [address] Care Team Providers Care Color Mixer Name Role Phone Husam Rosas MD Primary Care Provider [phone] Reason for Visit * Reason Comments Medication Refill Encounter Details Date Type Department Care Team (Late Contact Info) Description 01/08/2016 Ref[place] [address] [facility] [place] [address] HIV disease; Human immunodeficiency virus (HIV) disease Social History [...] 1:30 PM EST [place] [address] [facility] [place] [address] documented as of this encounter Visit Diagnoses Diagnosis HIV disease Human immunodeficiency virus [HIV] disease Human immunodeficiency virus (HIV) disease Human immunodeficiency virus [HIV] disease documented in this encounter Care Teams Color Mixer Relationship Specialty Start Date End Date Husam Rosas MD [address] [place] [address] PCP - General 01/19/10 01/22/17 documented as of this encounter
--- OUTSIDE RECORDS SUMMARY | 2023-12-04 16:31 | XMS_ITS | Encounter Summary ---
Author Organization [facility] Address [facility] [place] [address] Care Team Providers Care Solidworks Drafter Name Role Phone Husam Rosas MD Primary Care Provider [phone] Encounter Details Date Type Department Care Team (Late st Contact Info) Description 04/11/2016 2:00 PM EST Office [place] [address] Satya Wills MD [facility] [place] [address] Gastro-esophageal reflux disease with esophagitis; Fissure in ano; ETOH abuse; Elevated liver enzymes; Partial epilepsy with impairment of consciousness, intractable [...] Sign Reading Time Taken Comments Blood Pressure 155/82 04/11/2016 1:36 PM EST Pulse 68 04/11/2016 1:36 PM EST Temperature - - Respiratory Rate - - Oxygen Saturation - - Inhaled Oxygen Concentration - - Weight 82.6 kg (182 lb) 04/11/2016 1:36 PM EST r eported Height 168.9 cm (5' 6.5) 04/11/2016 1:36 PM EST reported Body Mass Index 28.94 04/11/2016 1:36 PM EST documented in this encounter Patient Instructions * Patient Instructions* Satya Wills MD - 04/11/2016 2:00 PM EST I think you're doing reasonably well. Seizure control is not complete but probably as good as we can achieve now For headaches you may occasionally use the meloxicam, but not more than 2 days in a week. Also you should make an appointment to see Dr. Allen . Otherwise you appear to be in good health. I would like to see you back in about 3 months, and we will coordinate that with infectious disease Satya Wills MD Department of Neurology [facility] [address], [place] [address] Pager: [phone], #[phone] Email: [email or web address] documented in this encounter Progress Notes * Satya Wills MD - 04/11/2016 2:00 PM EST Neurology clinic note Chief Complaint: Epilepsy. History or Present Illness: The patient is seen in followup today. 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 She continued to have seizures after the surgery although they are somewhat less frequent than before. Interval history: The patient seems to be doing reasonably well. 1. She was apparently seizure-free for several months on the combination of lacosamide and Aptiom, but then reported that she is having seizures. She appears to be having nocturnal convulsive events about once every 2 months.. She thinks she is still getting auras with a gastric/thoracic sensation. 2. She continues to have daily chronic headaches with daily sharp shooting pains on the right, and intermittent nausea she was seen in headache clinic by Dr. Allen who did Botox injections. The patientseems somewhat improved 3. She developed new skin lesions all over her arms the cause of which is at present unclear. She was seen in dermatology and no specific diagnosis was established. She is better with some triamcinolone cream, but skin lesions are still apparent. 4. She has had esophageal dilatation with improvement in swallowing. 5. Says she is compliant with her medications including anti-HIV medications and denies alcohol abuse Past medical history: Patient Active Problem List Diagnosis Code ??? 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 HIV disease 042 ??? Dyslipidemia 272.4 ??? Migraine 346.90 ??? Obesity 278.00 ??? Depression 311 ??? Fissure in ano 565.0 ??? Hemorrhoids 455.6 Review of systems: She is eating all right. Sleep is disturbed by her bad dreams. Bowel and bladder function are unremarkable. Physical Examination: Ht 168.9 cm (5' 6.5) Comment: reported Wt 90 kg (198 lb 6.4 oz) LMP 11/26/2010 BMI 31.54 kg/m2 Head, eyes, ears, nose, and throat were normal. Lungs are noteworthy for some wheezing. Heart was normal. Extremities were noteworthy for lesions on her arms that are scaling papules with exacerbation by excoriation. This is less apparent than before Her mood was good and her speech was normal. At baseline her speech is little slow, and slightly pressured but I think it is normal for her. There was minimal external deviation of the right eye as previously noted. Cranial nerves were otherwise unremarkable. Strength was normal. There is some tightness of oral and oropharyngeal musculature giving her tightness around the mouth and slightly strained speech. Coordination remains mildly impaired. Reflexes were brisk. Sensation was normal. Her gait was stable. Medications: Current Outpatient Prescriptions Medication Sig Dispense Refill ??? abacavir-lamiVUDine (EPZICOM) 600-300 mg Tablet take 1 tablet by mouth daily 30 tablet 5 ??? eslicarbazepine (APTIOM) 400 mg Tablet Take 2 tablets (800MG) by mouth once daily. 60 tablet 11 ??? meloxicam (MOBIC) 7.5 mg Tablet take 1 tablet by mouth daily as needed. 30 tablet 5 ??? clonazePAM (KLONOPIN) 1 mg Tablet TAKE 1 TABLET BY MOUTH EVERY MORNING AND 2 TABLETS EVERY EVENING 90 tablet 5 ??? VIMPAT 200 mg Tablet take 1 tablet by mouth twice a day 60 tablet 5 ??? darunavir (PREZISTA) 800 mg Tablet Take 1 tablet by mouth daily. 30 tablet 3 ??? VIREAD 300 mg Tablet take 1 tablet by mouth once daily 30 tablet 5 ??? RITONAVIR 100 mg Tablet take 1 tablet by mouth once daily 30 tablet 5 ??? PHENADOZ [address] 25 mg rectally as needed. 0 ??? hydrOXYzine (VISTARIL) 25 mg Capsule take 1 capsule by mouth twice a day 60 capsule 5 ??? omeprazole (PRILOSEC) 20 mg Capsule, Delayed Release(E.C.) Take 2 capsules by mouth daily. 60 capsule 11 ??? triamcinolone (KENALOG) 0.1 % Ointment Apply to affected areas on the trunk and extremities twice a day as needed for itching. 454 g 1 ??? hydrocortisone 2.5 % Cream Apply topically 2 times daily. 30 g 3 ??? naproxen sodium (ANAPROX) 550 mg Tablet Take 550 mg by mouth 2 times daily as needed. ??? prochlorperazine (COMPAZINE) 10 mg Tablet Take 1 tablet by mouth 3 times daily as needed. 15 tablet 3 ??? albuterol (PROVENTIL HFA;VENTOLIN HFA) 90 mcg/Actuation inhaler Inhale 2 puffs into the lungs every 4 hours as needed. Use with spacer ??? polyethylene glycol (MIRALAX) 17 gram/dose powder Take 17 g by mouth as needed. ??? Multivitamins with Iron Tab Take 1 tablet by mouth daily. 30 tablet 11 No current facility-administered medications for this visit. Laboratory Studies: None today. Recently CBC chemistry and liver profile are normal. HIV load is essentially 0. CD 4 count is satisfactory Impression: The patient is doing reasonably well at the moment. 1. She had a temporal lobectomy for refractory epilepsy but she continued to have complex partial seizures, and larger ones that caused falls and injuries. As noted earlier, we [...] of her seizures wererelated to alcohol withdrawal. The trial of clobazam unfortunately resulted in an allergic reaction. She did not tolerate a re-trial of Lamictal. On a combination of Aptiom, Vimpat and Klonopin she seems to be doing better with seizures substantially controlled. As I don't know what is really going on, I'm not going to make any changes. Anticonvulsant levels have been in a low therapeutic range. 2. Headaches seem somewhat improved with Botox injection. I would defer to Dr. Allen with regard to headache management.. 3. The skin rash remains mysterious. It seems better with steroid cream, but is still quite obviouson her arms.. 4. Psychiatrically she looks somewhat better today, with less pressured speech and also somewhat more organized in her thinking. 5. Other medical issues appear to be stable. She is swallowing better since her esophageal dilatation. She has careful follow-up in ID here with Dr. hernandez Thank you for this consultation. I will see her back in 3-6 months in coordination with ID, or sooner as needed. Satya Wills MD [place] [address] Pager: [phone], #[phone] Email: [email or web address] cc: ROSA Allen MD documented in this encounter Plan of Treatment Upcoming Encounters Date Type Department Care Team (Late st Contact Info) Description 03/06/2024 1:30 PM EST Office [place] [address] Satya Wills MD [facility] [place] [address] documented as of this encounter Visit Diagnoses Diagnosis Gastro-esophageal reflux disease with esophagitis Reflux esophagitis Fissure in ano Anal fissure ETOH abuse Alcohol abuse, unspecified Elevated liver enzymes Nonspecific elevation of levels of transaminase or lactic acid dehydrogenase (LDH) Partial epilepsy with impairment of consciousness, intractable Localization-related (focal) (partial) epilepsy and epileptic syndromes with complex partial seizures, with intractable epilepsy documented in this encounter Care Teams Solidworks Drafter Relationship Specialty Start Date End Date Husam Rosas MD [address] [place] [address] PCP - General 01/19/10 01/22/17 documented as of this encounter
--- OUTSIDE RECORDS SUMMARY | 2023-12-04 16:31 | XMS_ITS | Encounter Summary ---
Author Organization [facility] Address [facility] [place] [address] Care Team Providers Care Resolution Manager Name Role Phone Husam Rosas MD Primary Care Provider [phone] Reason for Visit * Reason Onset Date Comments Medication Refill 02/08/2016 Encounter Details Date Type Department Care Team (Late st Contact Info) Description 02/08/2016 Refill [place] [address] Drew Heaton MD [facility] [address] [place] [address] HIV disease Social History Tobacco Use Types Packs/Day [...] encounter Miscellaneous Notes * Telephone Encounter - Rubina Bray RN - 02/08/2016 10:09 AM EST Atazanavir was changed to darunavir in 06/2015. Per pharmacy, both were dispensed in 07/2015 then atazanavir was continued. Spoke with Dr. Heaton. Stop atazanavir and re-start darunavir. Phone message left for pt. Pt needs to reschedule today's appt also. Will follow up. documented in this encounter Plan of Treatment Upcoming Encounters Date Type Department Care Team (Late st Contact Info) Description 03/06/2024 1:30 PM EST Office [place] [address] Satya Wills MD [facility] [place] [address] documented as of this encounter Visit Diagnoses Diagnosis HIV disease Human immunodeficiency virus [HIV] disease documented in this encounter Care Teams Resolution Manager Relationship Specialty Start Date End Date Husam Rosas MD [address] [place] [address] PCP - General 01/19/10 01/22/17 documented as of this encounter
--- OUTSIDE RECORDS SUMMARY | 2023-12-04 16:31 | XMS_ITS | Encounter Summary ---
Author Organization [facility] [place] [address] Care Team Providers Care Automatic Print Developer Name Role Phone Husam Rosas MD Primary Care Provider [phone] Reason for Visit * Reason Onset Date Comments Medication Refill 08/05/2016 Encounter Details Date Type Department Care Team (Late Contact Info) Description 08/05/2016 [place] [address] Satya Wills MD [facility] [place] [address] HIV disease Social History Tobacco Use Types [...] 1:30 PM EST Office [place] [address] Satya Wills MD [facility] [place] [address] documented as of this encounter Visit Diagnoses Diagnosis HIV disease Human immunodeficiency virus [HIV] disease documented in this encounter Care Teams Automatic Print Developer Relationship Specialty Start Date End Date Husam Rosas MD [address] [address] PCP - General 01/19/10 01/22/17 documented as of this encounter
--- OUTSIDE RECORDS SUMMARY | 2023-12-04 16:31 | XMS_ITS | Encounter Summary ---
Author Organization [facility] [place] [address] Care Team Providers Care Nursing Program Director Name Role Phone Husam Rosas MD Primary Care Provider [phone] Reason for Visit * Reason Comments Medication Refill Encounter Details Date Type Department Care Team (Late Contact Info) Description 02/07/2016 Ref[place] [address] Jayla Angel APRN [facility] [place] [address] Social History Tobacco Use Types Packs/Day Years [...] encounter Miscellaneous Notes * Telephone Encounter - Shannen Thurston RN - 02/08/2016 11:59 AM EST rx faxed to pharmacy after provider signature. documented in this encounter Plan of Treatment Upcoming Encounters Date Type Department Care Team (Late Contact Info) Description 03/06/2024 1:30 PM EST Office [place] [address] Satya Wills MD [facility] [place] [address] documented as of this encounter Visit Diagnoses Not on filedocumented in this encounter Care Teams Nursing Program Director Relationship Specialty Start Date End Date Husam Rosas MD [address] [facility] [facility] [facility] [address] [place] [address] PCP - General 01/19/10 01/22/17 documented as of this encounter
--- OUTSIDE RECORDS SUMMARY | 2023-12-04 16:31 | XMS_ITS | Encounter Summary ---
Author Organization [facility] Address [facility] [place] [address] Care Team Providers Care Petroleum Transport Driver Name Role Phone Husam Rosas MD Primary Care Provider [phone] Reason for Visit * Reason Onset Date Comments Other 02/10/2016 Encounter Details Date Type Department Care Team (Late st Contact Info) Description 02/10/2016 [place]phone [place] [address] Alicia Allen MD [facility] [place] [address] Other Social History Tobacco Use Types Packs/Day [...] encounter Miscellaneous Notes * Telephone Encounter - Elva Monroe RN - 02/10/2016 2:29 PM EST Called and spoke with patient and let her know that Dr. Allen could see her on Monday for a follow upappointment. I also let her know twice that Dr. Allen is booking out very far and it may be difficultto rescheduled for a time in the near future. Patient states she understands this but does not wantto come on Monday. I again told her that we are booking out really far and just wanted to make sureshe was aware of this before simply cancelling her appointment. She states she understands. * Telephone Encounter - Elva Monroe RN - 02/10/2016 1:30 PM EST Please call patient back immediately and suggest she keep her apt for follow up with Dr. Aleln to review her tx plan. She doesn't have to have botox if she decides not to. * Telephone Encounter - Althea Heaton - 02/10/2016 1:09 PM EST Reason for call: patient called. She cancelled her appointment on Monday for Botox. She has a very bad cold but she also feels the botox is not working for her. She wanted Dr. Allen to know. documented in this encounter Plan of Treatment Upcoming Encounters Date Type Department Care Team (Late st Contact Info) Description 03/06/2024 1:30 PM EST Office [place] [address] Satya Wills MD [facility] [place] [address] documented as of this encounter Visit Diagnoses Not on filedocumented in this encounter Care Teams Petroleum Transport Driver Relationship Specialty Start Date End Date Husam Rosas MD [address] [place] [address] PCP - General 01/19/10 01/22/17 documented as of this encounter
--- OUTSIDE RECORDS SUMMARY | 2023-12-04 16:31 | XMS_ITS | Encounter Summary ---
Author Organization [facility] Address [facility] [place] [address] Care Team Providers Care Machine Silver Stripper Name Role Phone Husam Rosas MD Primary Care Provider [phone] Encounter Details Date Type Department Care Team (Late st Contact Info) Description 07/21/2016 Telephone [place] [address] Fely Wong RN [facility] [place] [address] Social History Tobacco Use Types Packs/Day Years [...] Telephone Encounter - Fely Wong RN - 07/21/2016 11:40 AM EDT Several phone messages left for Shayla to follow up on her last donald tiwt Dr. Heaton She was to have gotten labs done in her community after. Also received word from her case finisher that she is worried about Shayla. Says she has talked to herseveral times when Shayla's speech was quite slurred and she was concerned about her. [facility] documented in this encounter Plan of Treatment Upcoming Encounters Date Type Department Care Team (Late st Contact Info) Description 03/06/2024 1:30 PM EST [place] [address] Satya Wills MD [facility] [place] [address] documented as of this encounter Visit Diagnoses Not on filedocumented in this encounter Care Teams Machine Silver Stripper Relationship Specialty Start Date End Date Husam Rosas MD [address] [place] [address] PCP - General 01/19/10 01/22/17 documented as of this encounter
--- OUTSIDE RECORDS SUMMARY | 2023-12-04 16:31 | XMS_ITS | Encounter Summary ---
Author Organization [facility] Address [facility] [place] [address] Care Team Providers Care Dishroom Attendant Name Role Phone Husam Rosas MD Primary Care Provider [phone] Encounter Details Date Type Department Care Team (Late st Contact Info) Description 10/24/2016 Telephone [place] [address] Fely Wong, RN [facility] [place] [address] Social History Tobacco Use Types Packs/Day Years [...] Telephone Encounter - Fely Wong RN - 10/24/2016 11:47 AM EDT Folow up phone call with Josiane We had talked briefly last week and she had questions about transferring all her medical care to [place], [place]. Her speech is slow, soft and at times, but not always, has some slurring. (some of this is present at baseline) I told her I was not aware of Infectious Disease specialty services there. She was having difficulty in the conversation and we agreed to talk alter. Today she reports that she has started the process to transfer medical records. SHe thinks that Dr. Desai will be her PCP. She intends to call (and has number) the [facility], with Dr. Josiane Hopkins for her HIV specialty care She will look into neurology referrals. She describes several issues that have led her to this. She doesn't feel like she gets answers to her questions (including wanting to talk about risk of alzheimers because both parents had it). That at her last appt with both Elma and Sudarshan she had to wait for a long time before the provider came it. She relates that she relies on [facility] for transport and when she is delayed it causes otherpeople to wait what she feels like unreasonable about of time for her, both the drivers and other patients who are being transported. She feels that appts get scheduled and changed and then letter come with a different time/date and it is confusing. She is upset that the police were called to check on her and she needed to spend the night in [facility] because she was intoxicated and they didn't think she was safe at home alone. The fact that she is alone is upsetting to her. She does not want to talk to the mental health provider, she doesn't find it helpful. Transport to appts is difficult. She has not been getting much support from [facility] (though I know that the case management director tisha tried to reach out to her and has been in touch with our office about concerns). She says they only get in touch during re-enrollment. A: Josiane was very clear about her disappointments and frustration with they system and would like toget care elsewhere.. Her voice was slurred, quiet and hard to understand at time, but she was articulating a consistent message. She agrees to let us know if she is not going to keep her 12/09 appts. With Florentin Heaton and Elma. She is handling release of records through [facility] office. documented in this encounter Plan of Treatment Upcoming Encounters Date Type Department Care Team (Late st Contact Info) Description 03/06/2024 1:30 PM EST Office [place] [address] Satya Wills MD [facility] [address] documented as of this encounter Visit Diagnoses Not on filedocumented in this encounter Care Teams Dishroom Attendant Relationship Specialty Start Date End Date Husam Rosas MD [address] [place] [address] PCP - General 01/19/10 01/22/17 documented as of this encounter
--- OUTSIDE RECORDS SUMMARY | 2023-12-04 16:31 | XMS_ITS | Encounter Summary ---
Author Organization [facility] Address [facility] [place] [address] Care Team Providers Care Costume Rental Clerk Name Role Phone Bryce Dobbins Primary Care Provider [phone] Encounter Details Date Type Department Care Team (Latest Contact Info) Description 03/07/2017 9:27 PM EST - 03/07/2017 11:59 PM EST Hospital [place] [id number] Discharge Disposition: Home Social History Tobacco Use [...] Sig Dispensed Refills Start Date End Date triamcinolone (KENALOG) 0.1 % Cream Apply to itchy skin all over body twice daily 453.6 g 1 03/07/2017 01/14/2020 hydrOXYzine (VISTARIL) 25 mg Capsule take 1 capsule by mouth twice a day. 60 capsule 5 11/03/2016 01/14/2020 abacavir-lamiVUDine (EPZICOM) 600-300 mg TabletIndications:Human immunodeficiency virus (HIV) disease take 1 tablet by mouth once daily 30 tablet 1 10/06/2016 01/14/2020 REYATAZ 300 mg CapsuleIndications:Human immunodeficiency virus (HIV) disease take 1 capsule by mouth once daily 30 capsule 1 10/06/2016 01/14/2020 meloxicam (MOBIC) 7.5 mg Tablet take 1 tablet by mouth daily as needed. 30 tablet 5 10/05/2016 01/14/2020 lacosamide (VIMPAT) 200 mg Tablet take 1 tablet by mouth twice a day. 60 tablet 5 08/05/2016 01/14/2020 clonazePAM (KLONOPIN) 1 mg Tablet TAKE 1 TABLET BY MOUTH EVERY MORNING AND 2 TABLETS EVERY EVENING. 90 tablet 5 08/05/2016 01/14/2020 VIREAD 300 mg TabletIndications:HIV disease take 1 tablet by mouth once daily 30 tablet 5 07/07/2016 01/14/2020 RITONAVIR 100 mg TabletIndications:HIV disease take 1 tablet by mouth once daily 30 tablet 5 07/07/2016 01/14/2020 eslicarbazepine (APTIOM) 400 mg Tablet Take 2 tablets (800MG) by mouth once daily. 60 tablet 11 04/07/2016 01/14/2020 darunavir (PREZISTA) 800 mg TabletIndications:HIV disease Take 1 tablet by mouth daily. 30 tablet 3 02/08/2016 01/14/[address] 25 mg rectally as needed. Reported on 07/13/2016 0 06/01/2015 01/14/2020 hydrocortisone 2.5 % Cream Apply topically 2 times daily. 30 g 3 02/10/2015 01/14/2020 naproxen sodium (ANAPROX) 550 mg Tablet Take 550 mg by mouth 2 times daily as needed. 01/14/2020 prochlorperazine (COMPAZINE) 10 mg TabletIndications:Drug-in duced nausea and vomiting Take 1 tablet by [...] 06/04/2010 01/14/2020 documented as of this encounter Plan of Treatment Upcoming Encounters Date Type Department Care Team (Late st Contact Info) Description 03/06/2024 1:30 PM EST Office [place] [address] Satya Wills MD [facility] [place] [address] documented as of this encounter Procedures Procedure Name Priority Date/Time Associated Diagnosis Comments SURGICAL PATHOLOGY REPORT Routine 03/07/2017 12:00 PM EST documented in this encounter Results * Surgical Pathology Report (03/07/2017 12:00 PM EST) Final Diagnosis [id number] ? Location: OPW The signing pathologist has (i) examined the relevant preparation(s) for the specimen(s) and (ii) rendered or confirmed the diagnosis(es). . ?Surgical Pathology DIAGNOSIS Skin, left arm, punch ?? biopsy: ?Ulcer with mixed inflammation (see discussion). Electronically signed by: ??Kwesi HALL, PhD, [place] Verified: ??03/13/2017 ?Dermatopatholo gist Performed at: ??-[facility] Dept. of Pathology, [place], [place] DISCUSSION The biopsy shows an ulcer with mixed infiltrate of neutrophils, lymphocytes and rare esoinophils. The presence of rare eosinophils raises the possibility of underlying ??hypersensitivi ty reaction with excoriation but the number of eosinopils is sparse. ?? Overall the etiology of ulcer is not clear in the biopsy. ??Clinicopatholo gic correlation is recommended. ADDITIONAL STUDIES Special stains are performed. ?? Block ? Stain ?Result ( Positive / Negative ) ??A1 ?PAS/F ? Negative for fungi CLINICAL INFORMATION Specimen Submitted: A - Skin, L arm Clinical History: Pruritic generalized dermatitis x6 months in HIV patient Clinical Diagnosis: Symptomatic dermatitis versus? Referring Identifier: ?? (not provided) SPECIMEN PROCESSING A - Labeled/Fixative : patient ??'s name and MRN, ??formalin. Quantity/Size: Single, ??0.4 cmdiameter; excised to ??0.4 cm . Tissue Description: Punch biopsy of ??wrinkled, white skin and subcutaneous tissue. Sections/Process ing: Bisected. (T1) ??shb 03/13/2017 3:11 PM EST [facility] SPECIMEN FROM SKIN / Unknown 03/07/2017 12:00 PM EST 03/07/2017 12:00 PM EST Alexis Teixeira MD PATHOLOGY/CYTOLOGY O NANCY [facility] [place] [address] documented in this encounter Visit Diagnoses Not on filedocumented in this encounter Care Teams Costume Rental Clerk Relationship Specialty Start Date End Date Bryce Dobbins DO PCP - General General Internal Medicine 01/23/1711/04 documented as of this encounter
--- OUTSIDE RECORDS SUMMARY | 2023-12-04 16:31 | XMS_ITS | Encounter Summary ---
[facility] [place] [address] Care Team Providers Care Hand Splitter Name Role Phone Husam Rosas MD Primary Care Provider [phone] Encounter Details Date Type Department Care Team (Late st Contact Info) Description 08/04/2016 Telephone [place] [address] Rachna Liang RN Social History Tobacco Use Types Packs/Day [...] encounter Miscellaneous Notes * Telephone Encounter - Rachna Liang RN - 08/04/2016 9:29 AM EDT Patient calls the office leaving a message on the RN voicemail requesting a prescription from Dr. Sykes for her Omeprazole. Unable to reach patient by phone, left message on voicemail asking patient to request this renewal from her PCP as she has not seen anyone in our clinic, has only been seen for procedures in Endoscopy. documented in this encounter Plan of Treatment Upcoming Encounters Date Type Department Care Team (Late st Contact Info) Description 03/06/2024 1:30 PM EST [place] [address] Satya Wills MD [facility] [place] [address] documented as of this encounter Visit Diagnoses Not on filedocumented in this encounter Care Teams Hand Splitter Relationship Specialty Start Date End Date Husam Rosas MD [address] [facility] [place] [address] PCP - General 01/19/10 01/22/17 documented as of this encounter
--- OUTSIDE RECORDS SUMMARY | 2023-12-04 16:31 | XMS_ITS | Encounter Summary ---
Author Organization [facility] [place] [address] Care Team Providers Care Research Group Director Name Role Phone Husam Rosas MD Primary Care Provider [phone] Encounter Details Date Type Department Care Team (Latest Contact Info) Description 07/13/2016 Unscheduled Encounter [place] [address] Giuliana Fofana, [facility] [place] [address] Individual counseling encounter Social History Tobacco Use Types Packs/Day [...] as of this encounter Progress Notes * Giuliana Barrera, [facility] - 07/13/2016 4:49 PM EDT BEHAVIORAL HEALTH CONSULT: This grant writer met briefly w pt in exam room following office visit w Dr. Heaton. Discussed last contact (phone), and pt said she'd left further messages for grant writer, but that writerdidn't respond. Molding Sander said that grant writer had attempted to reach her multiple times to no avail, but apologized for missed contact. Pt presented w flat affect saying she's never felt this before; I'm not myself. When asked about SI, but said, this may sound bad, but I wouldn't tell you. Molding Sander acknowledged pt must be in a great amount of pain and normalized despair and thoughts she may be having. Pt amenable to phone contact/follow up w grant writer this July 15 between 8-12. Molding Sander asked if pt had or would consider admission to the hospital; pt referenced previous hospitalization 25 years ago, and said she wouldn't besure how she would get to the hospital, then identified someone who could get her there if needed. Molding Sander gave pt emergency information card and said they would come get her if she decided she neededto come to the hospital, and that she would be helped while inpatient. Pt exhibited flat response, and spoke of disappointment in [facility]: I called to see if they could help me, but they never got back to me. I guess they don't care about patients any more. Pt said she was looking forward to getting home and said she needed to get to hallway, as she is uncertain who is comingto transport her today. Pt asked if grant writer could schedule next ID appointment for her, but grant writer said she could not. Molding Sander will follow up w pt Mon.July 15 morning by phone. ALONSO Graham 07/13/16 16:57 documented in this encounter Plan of Treatment Upcoming Encounters Date Type Department Care Team (Late st Contact Info) Description 03/06/2024 1:30 PM EST [place] [address] Satya Wills MD [facility] [place] [address] documented as of this encounter Visit Diagnoses Diagnosis Individual counseling encounter documented in this encounter Care Teams Research Group Director Relationship Specialty Start Date End Date Husam Rosas MD [address] [place] [address] PCP - General 01/19/10 01/22/17 documented as of this encounter
--- OUTSIDE RECORDS SUMMARY | 2023-12-04 16:31 | XMS_ITS | Encounter Summary ---
Author Organization [facility] Address [facility] [place] [address] Care Team Providers Care Cost Control Supervisor Name Role Phone Husam Rosas MD Primary Care Provider [phone] [phone] Reason for Visit * Reason Comments Medication Refill Encounter Details Date Type Department Care Team (Late Contact Info) Description 03/08/2016 Refill [place] [address] Drew Heaton MD [facility] DR [place] [address] Human immunodeficiency virus (HIV) disease Social History [...] 1:30 PM EST [place] [address] Satya Wills MD [facility] [place] [address] documented as of this encounter Visit Diagnoses Diagnosis Human immunodeficiency virus (HIV) disease Human immunodeficiency virus [HIV] disease documented in this encounter Care Teams Cost Control Supervisor Relationship Specialty Start Date End Date Husam Rosas MD [address] [place] [address] PCP - General 01/19/10 01/22/17 documented as of this encounter
--- OUTSIDE RECORDS SUMMARY | 2023-12-04 16:31 | XMS_ITS | Encounter Summary ---
Author Organization [facility] [place] [address] Care Team Providers Care Stock Room Manager Name Role Phone Husam Rosas MD Primary Care Provider [phone] Reason for Visit * Reason Onset Date Comments Follow-up 03/11/2016 Encounter Details Date Type Department Care Team (Late st Contact Info) Description 03/11/2016 Telephone Infectious [place] [address] Rubina Bray, RN Follow-up Social History Tobacco Use Types Packs/Day Years [...] Telephone Encounter - Rubina Bray RN - 03/11/2016 5:17 PM EST Received an alert from [facility] due to the interaction between Reyataz and omeprazole. Reyataz was changed to darunavir in 06/2015 but script for Reyataz was renewed on 03/08/2016. Called pharmacy. They dispensed the darunavir in 01/2016 and then two days ago they dispensed the Reyataz. Again script was canceled. Called pt. She recognized the error and said she did not take the Reyataz. She will take the Reyataz back to the pharmacy and meat pickler the darunavir. Please note. Pt's voice was very slurred on the phone. documented in this encounter Plan of Treatment Upcoming Encounters Date Type Department Care Team (Late st Contact Info) Description 03/06/2024 1:30 PM EST Office Visit [place] [address] Satya Wills MD [facility] [place] [address] documented as of this encounter Visit Diagnoses Not on filedocumented in this encounter Care Teams Stock Room Manager Relationship Specialty Start Date End Date Husam Rosas MD [address] [place] [address] PCP - General 01/19/10 01/22/17 documented as of this encounter
--- OUTSIDE RECORDS SUMMARY | 2023-12-04 16:31 | XMS_ITS | Encounter Summary ---
Author Organization [facility] Address [facility] [place] [address] Care Team Providers Care Photovoltaic Solar Cell Designer Name Role Phone Husam Rosas MD Primary Care Provider [phone] [phone] Reason for Visit * Reason Onset Date Comments Other 07/14/2016 Encounter Details Date Type Department Care Team (Late st Contact Info) Description 07/14/2016 Telephone [place] [phone] Satya Wills MD [facility] [place] [address] Other Social History Tobacco Use Types Packs/Day [...] Telephone Encounter - Jose Delgado RN - 07/15/2016 8:48 AM EDT Returned call to patient, her speech was very slurred and incoherent. I asked if she had been drinking, her answer was incoherent. The message said she had fallen hit the table eye was swollen. Reviewed with Dr. Wills per his suggestion, I called [facility] PD to check on the patient. Dispatchconfirmed they would be sending someone to check on the patient. Jose WORLEY * Telephone Encounter - Althea Heaton David - 07/14/2016 3:27 PM EDT Caller: Josiane Best time to reach caller: After 230 pm (if not red arrow message) - Informed caller that if the nurse does not call back by the end of the day they will be called tomorrow AM Best number to reach caller: [phone] Reason for call: patient called. Last night she had a seizure. She lost conscienceness. She lost control of her bladder. She hurt the side of her eye. Right below her eye is swollen because she hit the table. Please call to discuss. documented in this encounter Plan of Treatment Upcoming Encounters Date Type Department Care Team (Late st Contact Info) Description 03/06/2024 1:30 PM EST Office [place] [address] Satya Wills MD [facility] [place] [address] documented as of this encounter Visit Diagnoses Not on filedocumented in this encounter Care Teams Photovoltaic Solar Cell Designer Relationship Specialty Start Date End Date Husam Rosas MD [address] [place] [address] PCP - General 01/19/10 01/22/17 documented as of this encounter
--- OUTSIDE RECORDS SUMMARY | 2023-12-04 16:31 | XMS_ITS | Encounter Summary ---
Author Organization [facility] [place] [address] Care Team Providers Care Excelsior Machine Feeder Name Role Phone Husam Rosas MD Primary Care Provider [phone] [phone] Reason for Visit * Reason Onset Date Comments Medication Refill 10/05/2016 Encounter Details Date Type Department Care Team (Late st Contact Info) Description 10/05/2016 [place] [address] Satya Wills MD [facility] [place] [address] Social History Tobacco Use Types Packs/Day Years [...] Telephone Encounter - Jose Delgado RN - 10/05/2016 10:40 AM EDT Pharmacy requesting medication refill for patient. Last appt 07/10 Next appt 10/17 documented in this encounter Plan of Treatment Upcoming Encounters Date Type Department Care Team (Late st Contact Info) Description 03/06/2024 1:30 PM EST [place] [address] Satya Wills MD [facility] [place] [address] documented as of this encounter Visit Diagnoses Not on filedocumented in this encounter Care Teams Excelsior Machine Feeder Relationship Specialty Start Date End Date Husam Rosas MD [address] [facility] [place] [address] PCP - General 01/19/10 01/22/17 documented as of this encounter
--- OUTSIDE RECORDS SUMMARY | 2023-12-04 16:31 | XMS_ITS | Encounter Summary ---
Author Organization [facility] Address [facility] [place] [address] Care Team Providers Care Kiosk Sales Representative Name Role Phone Husam Rosas MD Primary Care Provider [phone] [phone] Reason for Visit * Reason Comments Medication Refill Encounter Details Date Type Department Care Team (Late Contact Info) Description 10/04/2016 Ref[place] [address] Drew Heaton MD [facility] [place] [address] Human immunodeficiency virus (HIV) disease Social History [...] 1:30 PM EST [place] [address] Satya Wills MD [facility] [place] [address] documented as of this encounter Visit Diagnoses Diagnosis Human immunodeficiency virus (HIV) disease Human immunodeficiency virus [HIV] disease documented in this encounter Care Teams Kiosk Sales Representative Relationship Specialty Start Date End Date Husam Rosas MD [address] [place] [address] PCP - General 01/19/10 01/22/17 documented as of this encounter
--- OUTSIDE RECORDS SUMMARY | 2023-12-04 16:31 | XMS_ITS | Encounter Summary ---
Author Organization [facility] Address [facility] [place] [address] Care Team Providers Care Jackspooler Name Role Phone Husam Rosas MD Primary Care Provider [phone] [phone] Encounter Details Date Type Department Care Team (Latest Contact Info) Description 01/08/2016 9:00 AM EST - 01/08/2016 11:17 AM EST Hospital Encounter [place] [address] Ramesh Johnson MD [facility] [place] [address] Discharge Disposition: Home Social History Tobacco Use [...] 16 01/08/2016 9:15 AM EST Oxygen Saturation 96% 01/08/2016 10:45 AM EST Inhaled Oxygen Concentration - - [...] better as expected. Monday-Monday Same Day Endo [phone] [id number] Otherwise contact [phone] and ask to speak to the procurement clerk regional director Follow-up care is a [place] part of [...] 1:30 PM EST Office [place] [address] Satya Wills MD [facility] [place] [address] documented as of this encounter Procedures Procedure [...] Report (01/08/2016 10:40 AM EST) Final Diagnosis [id number] ?Location: ; 09; A The signing pathologist has (i) examined [...] Sections/Processing: (T1) ??ejr 01/18/2016 9:33 AM EST [facility] GI Biopsy 01/08/2016 10:4 0 AM EST 01/08/2016 10:40 AM EST Ramesh Johnson MD PATHOLOGY/CYTOLOGY O NANCY Performing Organization Address [facility] Co de Phone Number [place] [address] * Specimen to Pathology (surgical or derm) (01/08/2016 10:40 AM EST) AP Specimen 01/08/2016 10:4 0 AM EST 01/08/2016 10:40 AM EST Narrative [facility] - 01/08/2016 10:40 AM EST Specimen requisition ordered. ??Separate Pathology report to follow Ramesh Johnson MD PATHOLOGY/CYTOLOGY O NANCY Performing Organization Address City/[facility]/ZIP Co de Phone Number [place] [address] * UPPER GI ENDOSCOPY (01/08/2016 10:14 AM EST) UPPER GI ENDOSCOPY [facility] Endoscopy ___ Procedure Date: 01/08/2016 10:14 AM ? Patient Name: Josiane Pacheco ? Date of : 1955 ? Age: 60 ? Order #: [id number] ? Instrument Name: [id number] ? ___ Procedure: ? Upper GI endoscopy [...] CRNA) documented in this encounter Care Teams Jackspooler Relationship Specialty Start Date End Date Husam Rosas MD [address] [place] [address] PCP - General 01/19/10 01/22/17 documented as of this encounter
--- OUTSIDE RECORDS SUMMARY | 2023-12-04 16:31 | XMS_ITS | Encounter Summary ---
Author Organization [facility] [place] [address] Care Team Providers Care Drywall Taper Helper Name Role Phone Husam Rosas MD Primary Care Provider [phone] [phone] Encounter Details Date Type Department Care Team (Late st Contact Info) Description 09/05/2016 External Results [place] [address] Alida Francisco, RN Social History Tobacco Use Types Packs/Day [...] 1:30 PM EST [place] [address] Satya Wills MD [facility] [place] [address] documented as of this encounter Procedures Procedure Name Priority Date/Time Associated Diagnosis Comments EXTERNAL LAB CMP RESULTS [facility] Routine 09/02/2016 CBC (WITH DIFF) Routine 09/02/2016 ETHANOL LEVEL Routine 09/02/2016 documented in this encounter Results * (ABNORMAL) CBC (with Diff) (09/02/2016) White Blood Cell 4.32(ExtL) Red Blood Cell 3.69 Hemoglobin 13.4 Hematocrit 37.2 Mean Cell Volume 100.8(ExtH ) Mean Cell Hemoglobin 36.3(ExtH) Platelet 145 Blood specimen (specimen) 09/02/2016 Historical Provider HEMATOLOGY ORDERA BLES * Ethanol Level (09/02/2016) Ethanol 215.6 mg/dl Blood specimen (specimen) 09/02/2016 Historical Provider CHEMISTRY ORDERAB LES * (ABNORMAL) CMP External Results - [facility] (09/02/2016) Glucose 87 Blood Urea Nitrogen 7 Creatinine 0.75 Sodium 133(ExtL) Potassium 3.5 Chloride 98 Carbon Dioxide 23 Calcium 8.6 Protein, Total 7.8 Albumin 3.8 Aspartate Aminotransferase 39(ExtH) Alanine Aminotransferase 42 Alkaline Phosphatase 64 Bilirubin, Total 0.37 09/02/2016 Historical Provider POINT OF CARE WILTON T ORDERABLES documented in this encounter Visit Diagnoses Not on filedocumented in this encounter Care Teams Drywall Taper Helper Relationship Specialty Start Date End Date Husam Rosas MD [address] [place] [address] PCP - General 01/19/10 01/22/17 documented as of this encounter
--- OUTSIDE RECORDS SUMMARY | 2023-12-04 16:31 | XMS_ITS | Encounter Summary ---
Author Organization [facility] Address [facility] [place] [address] Care Team Providers Care Financial Compliance Examiner Name Role Phone Husam Rosas MD Primary Care Provider [phone] Encounter Details Date Type Department Care Team (Late st Contact Info) Description 01/08/2016 10:21 AM EST Anesthesia Event [place] [address] Leif Calderon MD [facility] [place] [address] Anesthesia Record Procedure Summary Procedure Name Responsible Anesthesiologist Anesthesia Start Time Anesthesia Stop Time EGD WITH BIOPSY (WRVU 2.39) (Trunk) Leif Calderon MD 01/08/16 1021 01/08/16 1041 Events Date Time Event Comment 01/08/2016 0951 1021 AN Verify 1021 Start 1021 An Start Data 1024 An Induction 1041 Stop 1041 an stop data 1041 Recovery or ICU Handoff Lida ent care was transferred to the destination unit staff after review of the patient's medical history, current anesthetic/surgical status and plan, according to the Provider Handoff Checklist. Meds Name Total IV Lidocaine 40 mg Propofol 150 mg Propofol INF 198.24 mg lactated ringers infusion 0 mL * Agents Name O2 * Blood No blood administrations on file. Lines, Drains, and Airways Type Details Placement Removal (RETIRED) Peripheral IV Line - Single Lumen 01/08/16; 0958; metacarpal vein (top of hand), right; 22 gauge; metacarpal vein (top of hand), right; 06/12/17 (Auto removal via utility); 09 (Auto removal via utility) 01/08/16 0958 by Linda Pantoja RN 06/12/17 0921 by [employer] ([employer]), User documented in this encounter Social History Tobacco [...] OR Notes * Anesthesia Postprocedure Evaluation - Leif Calderon - 01/09/2016 10:12 AM EST [facility] [place]esthesiology Post-procedure Note Patient: Josiane Pacheco Procedure Summary Date Anesthesia Start Anesthesia Stop Room / Location 01/08/16 1021 1041 [facility] 6 / [facility] Procedure Diagnosis Surgeon Responsible Provider EGD WITH BIOPSY (N/A Trunk); EGD,WITH DILATION ESOPHAGUS WITH BALLOON,< 30 MM (N/A ) (8 week repeat EGD for retreatment ; Dilation) Ramesh Johnson MD [place], [place], MD All Anesthesia Providers: Anesthesiologist: Leif Calderon MD SHREDDING MACHINE KNIFE CHANGER: Tyrese Mendoza CRNA Last (1hr) Vitals: BP Temp Pulse Resp SpO2 Patient Location: PACU/[facility] Level of Consciousness: Awake and Alert Pain Management: Satisfactory Analgesia PONV: None Cardiovascular Status: At Baseline Respiratory Status: At Baseline Postoperative Fluid Status: Intravascular EUvolemia Possible Anesthetic Complications: NONE apparent at time of evaluation Final Primary Anesthesia Type: MAC (The anesthetic type performed was the same as planned.) Comments: * Anesthesia Preprocedure Evaluation - Leif Calderon - 01/08/2016 9:50 AM EST Pre-Anesthesia Evaluation for: Josiane Pacheco a 60 y.o. female. Procedure(s): EGD, UPPER GI ENDOSCOPY Patient Active Problem List Diagnosis ??? Gastro-esophageal reflux disease with esophagitis ??? Fissure in ano ??? Hemorrhoids ??? Migraine ??? Obesity ??? Depression ??? HIV disease ??? Dyslipidemia ??? Localization-related (focal) (partial) epilepsy and epileptic syndromes with complex partial seizures, with intractable epilepsy Past Medical History Diagnosis Date ??? HIV disease 05/28/2010 Past Surgical History Procedure Laterality Date ??? Pro upper gi endoscopy, diagnostic N/A 06/23/2015 EGD, UPPER GI ENDOSCOPY performed by Dejan Sykes MD at [facility] ENDOSCOPY ??? Pro esophagoscopy rigid transoral balloon dilation N/A 07/31/2015 ESOPHAGOSCOPY, TRANSORAL; WITH BALLOON DILATION <30MM performed by Ramesh Johnson MD at [facility] ENDOSCOPY ??? Pro upper gi endoscopy, biopsy N/A 10/16/2015 UPPER GASTROINTESTINAL ENDOSCOPY,WITH BIOPSY SINGLE OR MULTIPLE performed by Ramesh Johnson MD at [facility] ENDOSCOPY ??? Pro esophagoscopy rigid transoral balloon dilation N/A 10/16/2015 ESOPHAGOSCOPY, TRANSORAL; WITH BALLOON DILATION <30MM performed by Ramesh Johnson MD at [facility] ENDOSCOPY Social History Substance Use Topics ??? Smoking status: Current Every Day Smoker Packs/day: 0.00 Years: 35.00 Types: Cigarettes ??? Smokeless tobacco: Never Used Comment: 1 a week ??? Alcohol use No Comment: occasional History Drug Use No Allergies Allergen Reactions ??? Lamictal [Lamotrigine] Per patient very dizzy, double vision, and hard to keep walking. ??? Topiramate Itching Medications: MAR and/or home medications have been reviewed. Physical Exam: Vitals: 01/08/16 0915 BP: 136/77 Pulse: 75 Resp: 16 There is no height or weight on file to calculate BMI. Airway Assessment: Mallampati: II TM distance: >3 FB Neck ROM: full Cardiovascular Assessment: Pulmonary Assessment: Dental Assessment: - normal exam Misc Assessment: IV access: Peripheral line Anesthesia Plan: ASA 3 MAC, with a(n) intravenous induction 60 y/o woman with a PMH of obesity, HLD, seizures, GERD and depression who presents for EGD for f/ufrom dilation in 07/2015 and 09/2015. Sz HIV positive Tolerated prior procedure with propofol sedation. Plan for MAC. Region - Other Informed Consent: Anesthetic plan and risks discussed with patient. Plan discussed with SHREDDING MACHINE KNIFE CHANGER. PAT Staff Note documented in this encounter Plan of Treatment Upcoming Encounters Date Type Department Care Team (Late st Contact Info) Description 03/06/2024 1:30 PM EST Office [place] [address] Satya Wills MD [facility] [place] [address] documented as of this encounter Visit Diagnoses Not on filedocumented in this encounter Administered Medications Inactive Administered Medications - up to 3 most recent administrations Medication Order MAR Action Action Date Dose Rate Site lactated ringers infusion 100 mL/hr, Intravenous, CONTINUOUS, Starting on Mon01/08/16 at 0930, Until Mon01/08/16 at 1107, Endoscopy (Day of Procedure) New Bag 01/08/2016 10:21 AM EST lidocaine (PF) (XYLOCAINE) 100 mg/5 mL (2 %) injection PRN, Starting on Mon01/08/16 at 1024, Until Mon01/08/16 at 1050, Anesthesia Intra-op, Routine Given 01/08/2016 10:24 AM EST 40 mg propofol (DIPRIVAN) 10 mg/mL bolus injection (Anesthesia) PRN, Starting on Mon01/08/16 at 1024, Until Mon01/08/16 at 1049, Anesthesia Intra-op Given 01/08/2016 10:28 AM EST 50 mg Given 01/08/2016 10:25 AM EST 50 mg Given 01/08/2016 10:24 AM EST 50 mg propofol (DIPRIVAN) infusion CONTINUOUS PRN, Starting on Mon01/08/16 at 1024, Until Mon01/08/16 at 1050, Anesthesia Intra-op, Routine New Bag 01/08/2016 10:24 AM EST 200 mcg/kg/min 99.1 mL/hr documented in this encounter Care Teams Financial Compliance Examiner Relationship Specialty Start Date End Date Husam Rosas MD [address] [place] [address] PCP - General 01/19/10 01/22/17 documented as of this encounter
--- OUTSIDE RECORDS SUMMARY | 2023-12-04 16:31 | XMS_ITS | Encounter Summary ---
Author Organization [facility] [place] [address] Care Team Providers Care Cashier Payments Received Name Role Phone Husam Rosas MD Primary Care Provider [phone] Reason for Visit * Reason Onset Date Comments Medication Refill 05/16/2016 Encounter Details Date Type Department Care Team (Late Contact Info) Description 05/16/2016 [place] [address] Satya Wills MD [facility] [place] [address] Social History Tobacco Use Types Packs/Day Years [...] 1:30 PM EST Office [place] [address] Satya Wills MD [facility] [place] [address] documented as of this encounter Visit Diagnoses Not on filedocumented in this encounter Care Teams Cashier Payments Received Relationship Specialty Start Date End Date Husam Rosas MD [address] [place] [address] PCP - General 01/19/10 01/22/17 documented as of this encounter
--- OUTSIDE RECORDS SUMMARY | 2023-12-04 16:31 | XMS_ITS | Encounter Summary ---
Author Organization [facility] [place] [address] Care Team Providers Care Conveyor System Dispatcher Name Role Phone Husam Rosas MD Primary Care Provider [phone] Encounter Details Date Type Department Care Team (Late st Contact Info) Description 07/20/2016 Telephone [place] [address] [facility] [place] [address] Social History Tobacco Use Types Packs/Day Years [...] Telephone Encounter - Giuliana Barrera LICSW - 07/20/2016 3:17 PM EDT BEHAVIORAL HEALTH CONSULT/ telephone message: This typewriter aligner again attempted to reach pt by phone but could only leave message. Farm Crew Leader left contact information and encouraged pt to call her as indicated. ALONSO Graham 07/20/16 15:19 documented in this encounter Plan of Treatment Upcoming Encounters Date Type Department Care Team (Late st Contact Info) Description 03/06/2024 1:30 PM EST [place] [address] Satya Wills MD [facility] [place] [place] [address] documented as of this encounter Visit Diagnoses Not on filedocumented in this encounter Care Teams Conveyor System Dispatcher Relationship Specialty Start Date End Date Husam Rosas MD [address] [place] [address] PCP - General 01/19/10 01/22/17 documented as of this encounter
--- OUTSIDE RECORDS SUMMARY | 2023-12-04 16:31 | XMS_ITS | Encounter Summary ---
[facility] Address [facility] [place] [address] Care Team Providers Care Centralized Traffic Control Operator Name Role Phone Sarah Alejo APRN Primary Care Provider [phone] Reason for Visit * Reason Comments Medication Refill Encounter Details Date Type Department Care Team (Late Contact Info) Description 01/02/2017 Refill [place] [address] Drew Heaton MD [facility] [place] [address] HIV disease; Human immunodeficiency virus (HIV) disease [...] 1:30 PM EST [place] [phone] Satya Wills MD [facility] [place] [address] documented as of this encounter Visit Diagnoses Diagnosis HIV disease Human immunodeficiency virus [HIV] disease Human immunodeficiency virus (HIV) disease Human immunodeficiency virus [HIV] disease documented in this encounter Care Teams Centralized Traffic Control Operator Relationship Specialty Start Date End Date Sarah Alejo, PHOTO SPECIALIST [address] [place] [address] PCP - General Internal Medicine 11/06/19 documented as of this encounter
--- OUTSIDE RECORDS SUMMARY | 2023-12-04 16:31 | XMS_ITS | Encounter Summary ---
Author Organization [facility] [place] [address] Care Team Providers Care Pipe Line Inspector Name Role Phone Husam Rosas MD Primary Care Provider [phone] Encounter Details Date Type Department Care Team (Late st Contact Info) Description 07/15/2016 Telephone [place] [address] Giuliana Fofana LICSW [facility] [place] [address] Social History Tobacco Use Types Packs/Day Years [...] Encounter - Giuliana Barrera LICSW - 07/15/2016 10:34 AM EDT BEHAVIORAL HEALTH CONSULT: telephone message This technical writer attempted to reach pt at 10:30am today as previously scheduled, but could only leave message w technical writer contact information and best day/time to reach technical writer; technical writer advised that technical writer will attempt to reach pt again 07/18 if no contact today. Map Maker reminded pt of psychiatric emergency card w number on it that technical writer gave to pt earlier this week, and encouraged pt to call if necessar y. ALONSO Graham 07/15/16 10:36 documented in this encounter Plan of Treatment Upcoming Encounters Date Type Department Care Team (Late st Contact Info) Description 03/06/2024 1:30 PM EST Office [place] [address] Satya Wills MD [facility] [place] [address] documented as of this encounter Visit Diagnoses Not on filedocumented in this encounter Care Teams Pipe Line Inspector Relationship Specialty Start Date End Date Husam Rosas MD [address] [place] [address] PCP - General 01/19/10 01/22/17 documented as of this encounter
--- OUTSIDE RECORDS SUMMARY | 2023-12-04 16:31 | XMS_ITS | Encounter Summary ---
Author Organization [facility] Address [facility] [place] [address] Care Team Providers Care Navy Seal Name Role Phone Husam Rosas MD Primary Care Provider [phone] Reason for Visit * Reason Comments Follow-up Encounter Details Date Type Department Care Team (Latest Contact Info) Description 03/14/2016 12:00 PM EST Office Visit [place] [address] Drew Heaton MD [facility] [place] [address] Human immunodeficiency virus (HIV) disease (Primary Dx); Chronic abdominal pain Social History Tobacco Use Types Packs/Day Years [...] Sign Reading Time Taken Comments Blood Pressure 137/83 03/14/2016 12:20 PM EST Pulse 95 03/14/2016 12:20 PM EST Temperature 36.3 ??C (97.3 ??F) 03/14/2016 1 2:20 PM EST Respiratory Rate 20 03/14/2016 12:2 0 PM EST Oxygen Saturation - - Inhaled Oxygen Concentration - - Weight 82.9 kg (182 lb 12.8 oz) 017 12:20 PM EST Height - - Body Mass Index 29.06 11/18/2015 3:23 PM EDT documented in this encounter Progress Notes * rDew Heaton MD - 03/14/2016 12:00 PM EST This is a scheduled appointment for an HIV infected woman last seen by me in clinic three months ago, since when she has continued to do welol. Prior to the last appointment in October of 2015 she had undergone two dilatations of gastric stricture and her problem with vomiting is dramatically improved; and has thus been much more adherent to ART. Seizures are also much less frequent. She has also much reduced alcohol use. Last menstrual period 11/26/2010. Overweight woman in no apparent distress. NC/AT. EOMI. Skin with diffuse rash, scattered excoriated papules, but better than previously. Throat benign. Heart RRR no m/r/g. Lungs CTA. Abdomen benign. Neuro. grossly nonfocal. Baseline Data Serologies/Screening: Monitoring HIV DX: CDQ : 12/31/2010 Family Planning: Routine nutritional eval: Ophtho exam: Dental eval: Adherence score: Hep A IgG: Hep B sAb: 02/08/2013 Neg Hep B cAb: (IgG): Hep B sA07/15/2014 Neg eAg: eAb: DNA PCR: Hep C Ig07/15/2014 Neg Genotype: Viral load: Anyt hx rx? : Y/N free text dates AFP: U/S: Liver Study: Toxo Ig12/14/2015 Pos CMV Ig12/14/2015 Pos RPR Titers: 12/31/2010 03/05/2008 10/31/2003 PPD: 03/02/2012 neg CXR: Rx status: Cervical pap: 03/04/2013 Normal 03/02/2012 Normal 08/11/2010 Normal Vag colpo: Last pelvic: [employer] exam: 05/27/2009 Anal pap: Rectal colpo: CD4: 03/14/2016 12/14/2015 152 10 11/10/2015 85 8 Chris: 03/14/2016 VL: 03/14/2016 12/14/2015 <20 11/10/2015 22,948 Max VL: 04/30/2003 28,700 Resist assays: 02/08/2013 no resistance mutations 07/26/2011 no resistance mutations 10/01/2010 no resistance Weights: 12/31/2010 97.977 12/16/2009 91.17 05/27/2009 83.91 Lipids: Total chol: 01/16/2009 207 LDL: 01/16/2009 115 HDL: 01/16/2009 68 Tri01/16/2009 121 Vaccines Influenza: 02/28/2016 Pneumovax: 09/16/2009 08/17/2001 Td: Tdap: 10/03/2008 HepA: HepB 20: 12/25/2002 HepB 40: HPV: Twinrix: Assessment and Plan: 1. HIV. She continues a group home pattern of brief periods of relatively suppressed HIV with longerperiods of increased viral loads during which time she claims excellent adherence but with resistance tests showing no mutations. Most recently in 3370-1996 her viral load had remained +/-20k and herCD4 had been dropping,actually into the AIDS range. We have been challenged to engage Josiane in better understanding this, but it now seems that the problem at least in part has been problems keeping the pills down because of the gastric stricture. I will thus recheck CD4 and PCR today and every 3-4 months (given prior poor adherence) and base further decisions thereon. 2. Adherence. She regularly states that she has been 100% adherent, and I reinforced the importanceof remaining so, but - as above - this clearly was far from accurate. 3. Chemoprophylaxis. None previously indicated by CD4, but she will need Bactrim if repeat CD4 today is still low. 4. Immunoprophylaxis. Up to date including flu vaccine locally. 5. Risk reduction. Not sexually active since last seen - she has previously said that she is alwayssafe. 6. Seizure disorder/headaches. She is under the care of Dr. Wills. 7. Psychiatric. Her mood is significantly better. She did meet Alix Barrera at the end of the clinic today. 8. Abnormal pap smear/educational advisor. Pap smear February 2013 was normal and will reschedule to coordinate withnext appointment (was to happen at the last appointment, but didn't get scheduled). 9. Obesity. Not addressed today. 10. Hyperlipidemia. Not addressed today. 11. Smoking. Had stopped smoking in February, but resumed and was barely contemplative about stopping at my last appointment. She did though stop over the holidays, 2013 [facility] but again started and doesn't feel that [...] stricture. Much improved after dilatation. 25 minutes [id number] time spent with the patient, 20 minutes of which was in discussion and counseling. Follow-up in 3-4 months. documented in this encounter Plan of Treatment Upcoming Encounters Date Type Department Care Team (Late st Contact Info) Description 03/06/2024 1:30 PM EST [place] [address] Satya Wills MD [facility] [place] [address] documented as of this encounter Procedures Procedure Name Priority Date/Time Associated Diagnosis Comments CD4 Routine 03/14/2016 1:07 PM EST Human immunodeficiency virus (HIV) disease HEMOGRAM Routine 03/14/2016 1:07 PM EST Human immunodeficiency virus (HIV) disease DIFFERENTIAL, AUTOMATED Routine 03/14/2016 1:07 PM EST Human immunodeficiency virus (HIV) disease HIV-1 RNA, QUANTITATIVE, PCR Routine 03/14/2016 1:07 PM EST Human immunodeficiency virus (HIV) disease CBC (WITH DIFF) Routine 03/14/2016 1:07 PM EST Human immunodeficiency virus (HIV) disease LIPASE Routine 03/14/2016 1:07 PM EST Chronic abdominal pain COMPREHENSIVE METABOLIC PANEL Routine 03/14/2016 1:07 PM EST Human immunodeficiency virus (HIV) disease documented in this encounter Results * Differential, Automated (03/14/2016 1:07 PM EST) Neutrophil % 48.4 % [facility] Neutrophil Absolute 2.10 1.70 - 6.10 x10(3)/[facility] Lymph % 39.9 % [facility] Lymphocytes Abs 1.7 0.9 - 3.2 x10(3)/[facility] Monocyte % 8.5 % [facility] Monocyte Abs 0.4 0.3 - 0.9 x10(3)/[facility] Eos % 2.3 % [facility] Eosinophils Abs 0.1 0.0 - 0.4 x10(3)/[facility] Basophil % 0.7 % [facility] Baso Absolute 0.0 0.0 - 0.1 x10(3)/[facility] Immature Gran % 0.20 % [facility] Comment: Immature granulocytes(IG's)percentage and absolute count will include metamyelocytes, myelocytes, and promyelocytes. Blood smears from CBCs yielding IG's will be scanned manually for concordance. If this scan disagrees with the automated IG or if promyelocytes are noted, a manual differential will be performed. Immature Gran Absolute 0.01 0.00 - 0.04 x10(3)/[facility] Blood specimen (specimen) 03/14/2016 1:07 PM EST 03/14/2016 1:23 PM EST Narrative Resulting Agency Comment Spec In Lab Drew Heaton MD HEMATOLOGY ORDERABLE S [facility] [place] [address] * (ABNORMAL) Hemogram (03/14/2016 1:07 PM EST) White Blood Cell 4.3 4.0 - 9.5 x10(3)/[facility] Red Blood Cell 4.30 4.00 - 5.21 x10(6)/[facility] Hemoglobin 15.2 11.7 - 15.5 gm/dL [facility] Hematocrit 43.3 35.7 - 45.8 % [facility] Mean Cell Volume 100.7(H) 82.6 - 94.4 fL [facility] Mean Cell Hemoglobin 35.3(H) 27.1 - 32.0 pg [facility] Mean Cell Hemoglobin Concentration 35.1(H) 31.7 - 35.0 gm/dL [facility] Platelet 166 145 - 357 x10(3)/[facility] RDW Standard Deviation 45.8 37.0 - 46.0 [facility] RDW coefficient of variation 12.2 11.5 - 14.1 % [facility] Mean Platelet Volume 8.7 7.6 - 12.9 [facility] NRBC% auto 0.0 % [facility] NRBC Absolute 0.000 0.000 - 0.000 x10(3)/[facility] Blood specimen (specimen) 03/14/2016 1:07 PM EST 03/14/2016 1:23 PM EST Narrative Resulting Agency Comment Spec In Lab Drew Heaton MD HEMATOLOGY ORDERABLE S [facility] [place] [address] * Lipase (03/14/2016 1:07 PM EST) Lipase 37 0 - 60 unit/L [facility] Blood specimen (specimen) 03/14/2016 1:07 PM EST 03/14/2016 1:23 PM EST Narrative Resulting Agency Comment Spec In Lab Drew Heaton MD CHEMISTRY ORDERABLES [facility] [place] [address] * (ABNORMAL) Comprehensive metabolic panel (non-fasting) (03/14/2016 1:07 PM EST) Glucose 96 65 - 199 mg/dL [facility] Comment:Diabetes: >=200 mg/d L plus symptoms Blood Urea Nitrogen 14 8 - 18 mg/dL [facility] Creatinine 0.85 0.70 - 1.20 mg/dL [facility] Comment: Please note that the pediatric reference intervals supplied above were not validated at [facility]. Results from pediatric patients should be interpreted in conjunction to the patient's age, height and muscle mass. Sodium 139 135 - 145 mmol/L [facility] Potassium 4.3 3.5 - 5.0 mmol/L [facility] Comment: Please note: ??Patients with WBC >100,000 may have falsely elevated Potassium levels. ??For accurate Potassium quantification in these patients send serum separator tube (gold top) for subsequent determinations. ??Contact the Clinical Chemistry Laboratory if there are any questions. Chloride 99 98 - 107 mmol/L [facility] Carbon Dioxide 25 22 - 31 mmol/L [facility] Anion Gap 15 5 - 15 mmol/L [facility] Calcium 10.0 8.5 - 10.5 mg/dL [facility] Protein, Total 8.3(H) 6.1 - 8.0 gm/dL [facility] Albumin 4.6 3.2 - 5.2 gm/dL [facility] Aspartate Aminotransferase 20 0 - 30 unit/L [facility] Alanine Aminotransferase 12 0 - 30 unit/L [facility] Alkaline Phosphatase 59 40 - 104 unit/L [facility] Bilirubin, Total 0.7 0.2 - 1.3 mg/dL [facility] Bilirubin, Direct 0.1 0.0 - 0.3 mg/dL [facility] Est Glomerular Filtration Rate >60 >=60 [facility] Comment: This estimated GFR (eGFR) value was calculated using the MDRD equation which has been validated on patients between the ages of 18 and 70. The MDRD should not be used to assess kidney function in patients < 18 years of age or in patients with extremes of body mass, or in patients with acute kidney failure. This value should be multiplied by 1.2 for patients. For further information please copy and paste the following links into your internet browser. http://InstaGIS/DHnkdep [email or web address]://[email or web address] Blood specimen (specimen) 03/14/2016 1:07 PM EST 03/14/2016 1:23 PM EST Narrative Resulting Agency Comment Spec In Lab Drew Heaton MD CHEMISTRY ORDERABLES [facility] [place] [address] * HIV-1 RNA, quantitative, PCR (03/14/2016 1:07 PM EST) HIV Viral Load Result (Qualitative) * RESULT: <20 copies/mL * (but detected) INDICATION FOR STUDY: HIV-1 Infection ANALYSIS: A real time PCR amplification assay was performed on extracted viral RNA for the purpose of quantification. SAMPLE: serum/plasma (1.0 mL minimum) METHOD: ORLIN?? AmpliPrep / ORLIN?? TaqMan?? HIV-1 Test v.2.0 LINEAR RANGE: 20 copies/mL ? 10,000,000 copies/mL plasma NOTE: The ORLIN?? AmpliPrep / ORLIN?? TaqMan?? HIV-1 Test v.2.0 has been approved by the U.S. Food and Drug Administration. Robert Fuentes, Ph.D. Director, Molecular Pathology [facility] Comment: [VERIFIED DATE]03.21.16 Verified By:Kiara Miranda (Electronic Signature) Blood specimen (specimen) 03/14/2016 1:07 PM EST 03/17/2016 9:09 AM EST Narrative Resulting Agency Comment Spec In Lab Drew Heaton MD MOLECULAR ORDERABLES Performing Organization Address City/[facility]/ZIP Co de Phone Number [facility] [place] [address] * (ABNORMAL) CD4 (03/14/2016 1:07 PM EST) CD3% 91(H) 55 - 82 % [facility] CD3 ABS 1,562 731 - 2,438 /[facility] LAB[facility] CD 4% 10(L) 35 - 61 % [facility] CD 4ABS 169(L) 503 - 1,736 /[facility] Comment: This assay is a dual platform determination. ??The PERCENTAGE of lymphocytes bearing the CD3 and CD4 antigens is determined using flow cytometry immunophenotyping. ??The ABSOULTE COUNT of CD3- and CD4-lymphocytes is determined by multiplying the percentages by the absolute lymphocyte count obtained from the concurrent CBC. Note that information about other lymphocyte subsets can only be inferred from the results of this test. ??If indicated, results for other subsets (percentage and absolute counts) may be obtained by ordering additional alternative tests, as outlined in the Laboratory Handbook: *CD19 B-cell count by flow cytometry *T-cell lymphocyte subsets by flow cytometry (CD3, CD4, CD8) * Lymphocyte subsets by flow cytometry (CD3, CD4, CD8, CD19, CD16+56) White Blood Cell 4.3 4.0 - 9.5 x10(3)/[facility] Lymph % 39.9 % [facility] Lymphocytes Abs 1.7 0.9 - 3.2 x10(3)/[facility] Blood specimen (specimen) 03/14/2016 1:07 PM EST 03/14/2016 1:23 PM EST Narrative Resulting Agency Comment Spec In Lab Drew Heaton MD HEMATOLOGY ORDERABLE S Performing Organization Address City/[facility]/ZIP Co de Phone Number [facility] [place] [address] documented in this encounter Visit Diagnoses Diagnosis Human immunodeficiency virus (HIV) disease- Primary Human immunodeficiency virus [HIV] disease Chronic abdominal pain Abdominal pain, unspecified site documented in this encounter Care Teams Navy Seal Relationship Specialty Start Date End Date uHsam Rosas MD [address] [place] [address] PCP - General 01/19/10 01/22/17 documented as of this encounter
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
--- OUTSIDE RECORDS SUMMARY | 2023-12-04 16:31 | XMS_ITS | Encounter Summary ---
Author Organization [facility] Address [facility] [place] [address] Care Team Providers Care Housekeeping Worker Name Role Phone Sarah Alejo APRN Primary Care Provider [phone] Reason for Visit * Reason Comments Medication Refill Encounter Details Date Type Department Care Team (Late Contact Info) Description 12/03/2016 Refill [place] [phone] Drew Heaton MD [facility] [place] [address] Human immunodeficiency virus (HIV) disease Social History [...] 1:30 PM EST [place] [address] Satya Wills MD [facility] [place] [place] [address] documented as of this encounter Visit Diagnoses Diagnosis Human immunodeficiency virus (HIV) disease Human immunodeficiency virus [HIV] disease documented in this encounter Care Teams Housekeeping Worker Relationship Specialty Start Date End Date Sarah Alejo APRN [address] [place] [address] PCP - General Internal Medicine 11/06/19 documented as of this encounter
--- OUTSIDE RECORDS SUMMARY | 2023-12-04 16:31 | XMS_ITS | Encounter Summary ---
Author Organization [facility] [address] Care Team Providers Care Consumer Advocate Name Role Phone Bryce Dobbins DO Primary Care Provider [phone] Encounter Details Date Type Department Care Team (Late st Contact Info) Description 03/14/2017 Telephone Dermatology at [address] [phone] Riri Pack LPN Social History Tobacco Use Types Packs/Day Years [...] encounter Miscellaneous Notes * Telephone Encounter - Riri Pack LPN - 03/14/2017 10:46 AM EST Nurse reviewed biopsy results with patient; 03/07/17 left arm, punch biopsy; non- specific, no infection/no cancer. Rash is better. It's itchy but not bad. Cream is working good. Nurse encouraged patient to call office in two weeks with update. If any changes for the worse call sooner. Patient agrees with plan and confirmed will update in two weeks. documented in this encounter Plan of Treatment Upcoming Encounters Date Type Department Care Team (Late st Contact Info) Description 03/06/2024 1:30 PM EST [place] [phone] Satya Wills MD [facility] [place] [address] documented as of this encounter Visit Diagnoses Not on filedocumented in this encounter Care Teams Consumer Advocate Relationship Specialty Start Date End Date Bryce Dobbins DO PCP - General General Internal Medicine 01/23/1711/04 documented as of this encounter
--- OUTSIDE RECORDS SUMMARY | 2023-12-04 16:31 | XMS_ITS | Encounter Summary ---
Author Organization [facility] Address [facility] [place] [address] Care Team Providers Care Electrical Parts Reconditioner Name Role Phone Husam Rosas MD Primary Care Provider [phone] Reason for Referral * High Dollar Medication (Routine) - Specialty Diagnoses / Procedures Referred By Contac t Referred To Contact Neurology Diagnoses Chronic migraine without aura with status migrainosus, not intractable Procedures Auth Request for Medication Alicia Allen MD [facility] [place] [address] [facility] [address] [place] [address] Referral ID Status Reason Start Date Expiration Date V isits Requested Visits Authorized [id number] Consult, Test & Treat 01/22/2016 01/21/2017 4 4 Encounter Details Date Type Department Care Team (Late st Contact Info) Description 01/22/2016 Orders [place] [phone] Alicia Allen MD [facility] [place] [place] [address] Chronic migraine without aura with status migrainosus, not intractable Social History Tobacco Use Types Packs/Day [...] 1:30 PM EST Office [place] [address] Satya Wills MD [facility] [place] [place] [address] documented as of this encounter Visit Diagnoses Diagnosis Chronic migraine without aura with status migrainosus, not intractable Chronic migraine without aura, without mention of intractable migraine with status migrainosus documented in this encounter Care Teams Electrical Parts Reconditioner Relationship Specialty Start Date End Date Husam Rosas MD [address] [place] [address] PCP - General 01/19/10 01/22/17 documented as of this encounter
--- OUTSIDE RECORDS SUMMARY | 2023-12-04 16:31 | XMS_ITS | Encounter Summary ---
Author Organization [facility] Address [facility] [place] [address] Care Team Providers Care Scientific Editor Name Role Phone Bryce Dobbins DO Primary Care Provider [phone] Reason for Visit * Reason Comments Skin Check * Consultation (Routine) - Closed Specialty Diagnoses / Procedures Referred By Contac t Referred To Contact Dermatology Diagnoses Please evaluate and make treatment recommendations for dry and scaling skin with punctate white lesions that are very pruritic. Bryce Dobbins DO [address] [place] [address] Alexis Teixeira MD [address] [place] [address], [place] [address] Referral ID Status Reason Start Date Expiration Date V isits Requested Visits Authorized [id number] Closed Consult, Test & Treat [facility] 01/24/2017 01/24/2018 1 1 Encounter Details Date Type Department Care Team (Late st Contact Info) Description 03/07/2017 8:45 AM EST Office Visit Dermatology at [address] [address] Alexis Teixeira MD [address] [place] [address], [facility] [place], [place] [id number] Dermatitis; Pruritus Social History Tobacco Use Types Packs/Day Years [...] as of this encounter Progress Notes * Alexis Teixeira MD - 03/07/2017 8:45 AM EST PROBLEM: 1. Pruritus. 2. History of HIV positive. Josiane follows up after last seeing me in 06/2012 for rosacea. For the last 6 months she has been having problems with diffuse itching on the arms and legs. She lives alone in an apartment where she has been for about the last year. She wonders whether this could be a reaction to dust mites. She says the water in her apartment comes out at times brown. She lives in [facility]. None of her acquaintances have any itching. She states that a woman in an apartment next to her is also itching. She states there has been no change in her medications. Everything is stable, unchanged since her last visit. There has been no change in her medications for more than a year. She has no history of atopy, no history of allergies to cats, dogs, pollens, hay fever, and/or asthma. 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 The patient has used Morris butter as an emollient cream. Physical examination reveals a pleasant 61-year-old woman who has diffuse pruritus and excoriations widely over the arms and the legs. There are no scabetic lesions on the dorsal hands or in the finger web spaces. There is relative sparing of the chest and back and the face, although she complains of itching in her ears. A/P: Diffuse generalized pruritus in an HIV-positive woman of 6 months' duration. a. Today, punch biopsy obtained from the left arm. b. Check CMP and CBC. c. Begin triamcinolone 0.1% cream, apply on a b.i.d. basis to affected skin. One-pound jar dispensed with 1 refill. This will be called into [facility] [facility] in [facility]. d. We will notify the patient of biopsy results in 1 week. Suture removal at her request will be done by the patient herself in 10-14 days. e. May need to consider a prophylactic course of ivermectin or permethrin cream. f. May also need to recommend more aggressive emolliation therapy with CeraVe cream. NOTE: Half an hour was spent with patient, more than half in counseling. documented in this encounter Plan of Treatment Upcoming Encounters Date Type Department Care Team (Late st Contact Info) Description 03/06/2024 1:30 PM EST Office Visit [place] [address] Satya Wills MD [facility] [place] [address] documented as of this encounter Visit Diagnoses Diagnosis Dermatitis Contact dermatitis and other eczema, due to unspecified cause Pruritus Unspecified pruritic disorder documented in this encounter Care Teams Scientific Editor Relationship Specialty Start Date End Date Bryce Dobbins DO PCP - General General Internal Medicine 01/23/1711/04 documented as of this encounter
--- OUTSIDE RECORDS SUMMARY | 2023-12-04 16:31 | XMS_ITS | Encounter Summary ---
Author Organization [facility] [place] [address] Care Team Providers Care Trip Motor Operator Name Role Phone Husam Rosas MD Primary Care Provider [phone] Reason for Visit * Reason Comments Medication Refill Encounter Details Date Type Department Care Team (Late Contact Info) Description 04/07/2016 Refill [place] [address] Drew Heaton MD [facility] [place] [address] Human immunodeficiency virus (HIV) disease Social History [...] Telephone Encounter - Suzie Mars RN - 04/07/2016 5:01 PM EST Clarissa Hodge in [facility] called to request a new prescription for Epzicom and Reyataz; will forwardprescription to Dr Heaton documented in this encounter Plan of Treatment Upcoming Encounters Date Type Department Care Team (Late Contact Info) Description 03/06/2024 1:30 PM EST [place] [phone] Satya Wills MD [facility] [place] [address] documented as of this encounter Visit Diagnoses Diagnosis Human immunodeficiency virus (HIV) disease Human immunodeficiency virus [HIV] disease documented in this encounter Care Teams Trip Motor Operator Relationship Specialty Start Date End Date Husam Rosas MD [address] [facility] [place] [address] PCP - General 01/19/10 01/22/17 documented as of this encounter
--- OUTSIDE RECORDS SUMMARY | 2023-12-04 16:31 | XMS_ITS | Encounter Summary ---
Author Organization [facility] Address [facility] [place] [address] Care Team Providers Care Revising Clerk Name Role Phone Husam Rosas MD Primary Care Provider [phone] Reason for Visit * Reason Comments Medication Refill Encounter Details Date Type Department Care Team ([facility] Contact Info) Description 07/06/2016 Ref[place] [phone] Drew Heaton MD [facility] [place] [address] HIV disease Social History Tobacco Use Types [...] 1:30 PM EST [place] [address] Satya Wills MD [facility] [place] [address] documented as of this encounter Visit Diagnoses Diagnosis HIV disease Human immunodeficiency virus [HIV] disease documented in this encounter Care Teams Revising Clerk Relationship Specialty Start Date End Date Husam Rosas MD [address] [facility] [place] [address] PCP - General 01/19/10 01/22/17 documented as of this encounter
--- OUTSIDE RECORDS SUMMARY | 2023-12-04 16:31 | XMS_ITS | Encounter Summary ---
Author Organization [place] [address] Care Team Providers Care Whiteprinting Machine Operator Name Role Phone Husam Rosas MD Primary Care Provider [phone] Reason for Visit * Reason Onset Date Comments Medication Refill 04/07/2016 Encounter Details Date Type Department Care Team (Late Contact Info) Description 04/07/2016 [place] [address] Satya Wills MD [facility] [place] [place] [address] Social History Tobacco Use Types Packs/Day Years [...] 1:30 PM EST [place] [address] Satya Wills MD [facility] [place] [place] [address] documented as of this encounter Visit Diagnoses Not on filedocumented in this encounter Care Teams Whiteprinting Machine Operator Relationship Specialty Start Date End Date Husam Rosas MD [address] [place] [address] PCP - General 01/19/10 01/22/17 documented as of this encounter
--- OUTSIDE RECORDS SUMMARY | 2023-12-04 16:31 | XMS_ITS | Encounter Summary ---
Author Organization [facility] Address [facility] [place] [address] Care Team Providers Care Civil Clerk Name Role Phone Husam Rosas MD Primary Care Provider [phone] Encounter Details Date Type Department Care Team (Late st Contact Info) Description 07/13/2016 2:30 PM EDT [place] [address] Satya Wills MD [facility] [place] [address] Partial symptomatic epilepsy with complex partial seizures, intractable, without status epilepticus Social History Tobacco Use Types Packs/Day Years [...] Sign Reading Time Taken Comments Blood Pressure 140/90 07/13/2016 1:56 PM EDT Pulse 78 07/13/2016 1:56 PM EDT Temperature - - Respiratory Rate - - Oxygen Saturation - - Inhaled Oxygen Concentration - - Weight 88.3 kg (194 lb 9.6 oz) 07/13/2016 1:56 P M EDT Height 168.9 cm (5' 6.5) 07/13/2016 1:56 PM EDT reported Body Mass Index 30.94 07/13/2016 1:56 PM EDT documented in this encounter Progress Notes * Satya Wills MD - 07/13/2016 2:30 PM EDT Neurology clinic note Chief [...] they are somewhat less frequent than before. She was apparently seizure-free for several months on the combination of lacosamide and Aptiom, seth reported that she is having seizures. She appears to be having nocturnal convulsive events about once every 2 months.. She thinks she is still getting auras with a gastric/thoracic sensation. She developed new skin lesions all over her arms the cause of which is at present unclear. She was seen in dermatology and no specific diagnosis was established. She is better with some triamcinolonecream, but skin lesions are still apparent. She continues to have daily chronic headaches with daily sharp shooting pains on the right, and intermittent nausea Interval history: The patient has had a very stressful time because her mother , and going to a quadruple with her sister she was not able to attend the 1. Owing to recent stresses she has had more than her usual number of seizures in the last few months. She thinks she may have had several in a month. 2. Headaches remain problematic. 5. She says she is compliant with her medications including anti-HIV medications and denies alcoholabuse. Past medical history: Patient Active Problem List [...] bladder function are unremarkable. Physical Examination: BP 140/90 (BP Location (NBP): Left arm, Patient Position: Sitting, BP Cuff Sizes: Adult (25-34 cm)) Pulse 78 Ht 168.9 cm (5' 6.5) Comment: reported Wt 88.3 kg (194 lb 9.6 oz) LMP 11/26/2010 BMI 30.94 kg/m2 Head, eyes, ears, nose, and throat [...] I think it is normal for her. she is more depressed than usual. There was minimal external deviation of the [...] facility-administered medications for this visit. Laboratory Studies: To be done in ID clinic Impression: The patient is doing somewhat worse at the moment. 1. She had a [...] combination of Aptiom, Vimpat and Klonopin she seemed to be doing better with seizures substantially controlled. As I don't know what is really going on, I'm not going to make anychanges. the present exacerbation of seizures seems related to stresses associated with her mother's . I will wait for things to settle down before reassessing the situation 2. Headaches seemed somewhat improved with Botox injection, but she has not followed through with this. I would do nothing further at this time 3. The skin rash remains mysterious. It seems better with steroid cream, 4. Psychiatrically she looks bad today, At that time to stand up and given what she describes with regard to her mother's . 5. Other medical issues appear to be stable. She is swallowing better since her esophageal dilatation. She has careful follow-up in ID here with Dr. Heaton Thank you for this consultation. I will see her back in 3-6 months in coordination with ID, or sooner as needed. Satya Wills MD Department [place] [address] Pager: [phone], #[phone] Email: [email or web address] cc: ROSA Allen MD documented in this encounter Plan of Treatment Upcoming Encounters Date Type Department Care Team (Late st Contact Info) Description 03/06/2024 1:30 PM EST [place] [address] Satya Wills MD [facility] [place] [address] documented as of this encounter Visit Diagnoses Diagnosis Partial symptomatic epilepsy with complex partial seizures, intractable, without status epilepticus documented in this encounter Care Teams Civil Clerk Relationship Specialty Start Date End Date Husam Rosas MD [address] [place] [address] PCP - General 01/19/10 01/22/17 documented as of this encounter
--- OUTSIDE RECORDS SUMMARY | 2023-12-04 16:31 | XMS_ITS | Encounter Summary ---
Author Organization [facility] Address [facility] [place] [address] Care Team Providers Care Water Softener Servicer And Installer Name Role Phone Bryce Dobbins DO Primary Care Provider [phone] Encounter Details Date Type Department Care Team (Late st Contact Info) Description 03/07/2017 Refill Dermatology at [address] [place] [address] Riri Pack, RCP Social History Tobacco Use Types Packs/Day Years [...] 1:30 PM EST Office [place] [address] Satya Wills MD [facility] [place] [address] documented as of this encounter Visit Diagnoses Not on filedocumented in this encounter Care Teams Water Softener Servicer And Installer Relationship Specialty Start Date End Date Bryce Dobbins DO PCP - General General Internal Medicine 01/23/1711/04 documented as of this encounter
--- OUTSIDE RECORDS SUMMARY | 2023-12-04 16:31 | XMS_ITS | Encounter Summary ---
Author Organization [facility] Address [facility] [place] [address] Care Team Providers Care Taxation Consultant Name Role Phone Husam Rosas MD Primary Care Provider [phone] Reason for Visit * Reason Onset Date Comments Follow-up 08/31/2016 Encounter Details Date Type Department Care Team (Late st Contact Info) Description 08/31/2016 Telephone Infectious Disease at [facility] [place] [address] Rubina Bray, RN Follow-up Social History Tobacco [...] Telephone Encounter - Rubina Bray RN - 08/31/2016 5:47 PM EDT Called pt to follow up on lab orders. Dr. Heaton ordered labs on 07/13/2016 and pt did not have labs drawn. Pt's speech was very slurred on the phone today and it was very hard to follow the conversation. She said that she was very angry with [facility]. She has a long ride to [facility], there are long waits and then she has only a few minutes with the doctors, and she doesn't get the answers she needs. When I asked her about what answers she was seeking she could not tell me clearly tell me what they were. Pt did say she may have gotten the labs drawn on 07/14/2016 at [facility] in [facility]. Called and requested the results ([phone]). Pt did agree to have labs drawn if there were no results at [facility]. Will mail her a the lab orders. documented in this encounter Plan of Treatment Upcoming Encounters Date Type Department Care Team (Late st Contact Info) Description 03/06/2024 1:30 PM EST [place] [address] Satya Wills MD [facility] [place] [address] documented as of this encounter Visit Diagnoses Not on filedocumented in this encounter Care Teams Taxation Consultant Relationship Specialty Start Date End Date Husam Rosas MD [address] [place] [address] PCP - General 01/19/10 01/22/17 documented as of this encounter
--- OUTSIDE RECORDS SUMMARY | 2023-12-04 16:32 | XMS_ITS | Encounter Summary ---
Author Organization [facility] Address [facility] [place] [address] Care Team Providers Care Assistant Professor Of German Name Role Phone Husam Rosas MD Primary Care Provider [phone] Encounter Details Date Type Department Care Team (Late Contact Info) Description 06/30/2015 Orders [place] [address] Dejan Sykes MD [facility] [place] [address] Gastro-esophageal reflux disease with esophagitis; S/P balloon dilatation of esophageal stricture Social History Tobacco Use Types Packs/Day Years Used Date Smoking Tobacco: Former Cigarettes Smokeless Tobacco: Never Alcohol Use Standard Drinks/Week Comments Yes 0 (1 standard drink = 0.6 oz pur e alcohol) occasional Sex and Gender Information Value Date Recorded Sex Assigned at Not on file Gender Identity Not on file Sexual Orientation Not on file documented as of this encounter Progress Notes * Dejan Sykes MD - 06/30/2015 7:17 PM EDT Waiting to hear back from ID team re: PPI with Atazanavir. I have sent a prescription for Omeprazole 40 mg (once daily in AM before breakfast) for now. Ideally would be twice daily while we pursue serial EGD with balloon dilation but risk of interaction and reduced effectiveness with Atazanavir is high. Dejan Sykes MD [facility] Gastroenterology documented in this encounter Plan of Treatment Upcoming Encounters Date Type Department Care Team (Late Contact Info) Description 03/06/2024 1:30 PM EST Office [place] [address] Satya Wills MD [facility] [place] [address] documented as of this encounter Visit Diagnoses Diagnosis Gastro-esophageal reflux disease with esophagitis Reflux esophagitis S/P balloon dilatation of esophageal stricture Other postprocedural status documented in this encounter Care Teams Assistant Professor Of German Relationship Specialty Start Date End Date Husam Rosas MD [address] [facility] [address] PCP - General 01/19/10 01/22/17 documented as of this encounter
--- OUTSIDE RECORDS SUMMARY | 2023-12-04 16:32 | XMS_ITS | Encounter Summary ---
Author Organization [facility] Address [facility] [place] [address] Care Team Providers Care Public Health Officer Name Role Phone Husam Rosas MD Primary Care Provider [phone] Reason for Visit * Reason Onset Date Comments Medication Refill 07/07/2015 Encounter Details Date Type Department Care Team (Late st Contact Info) Description 07/07/2015 Refill [place] [address] Drew Heaton MD [facility] [place] [address] HIV disease Social History Tobacco Use Types [...] Telephone Encounter - Suzie Mars RN - 07/07/2015 4:45 PM EDT Josiane returned telephone call today; recently seen by Dr Abimael Sykes in GI who asked about adding PPI as Josiane taking atazanavir Dr Heaton will prescribe darunavir 800 mg once daily and delete atazanavir We have been waiting to hear from Josiane to discuss with her She agrees, although does state confusion about all meds (brand name vs generic name) Reviewed all HIV meds and how to take; will forward prescription request to Dr Sudarshan Joshua mainly focused the conversation on discomfort during recent procedure; she didn't feel she hadadequate sedation; This is being addressed by for next procedure, scheduled for early July. Josiane states she is relieved to know this documented in this encounter Plan of Treatment Upcoming Encounters Date Type Department Care Team (Late st Contact Info) Description 03/06/2024 1:30 PM EST Office [place] [address] Satya Wills MD [facility] [place] [address] documented as of this encounter Visit Diagnoses Diagnosis HIV disease Human immunodeficiency virus [HIV] disease documented in this encounter Care Teams Public Health Officer Relationship Specialty Start Date End Date Husam Rosas MD [address] [place] [address] PCP - General 01/19/10 01/22/17 documented as of this encounter
--- OUTSIDE RECORDS SUMMARY | 2023-12-04 16:32 | XMS_ITS | Encounter Summary ---
Author Organization [facility] [place] [address] Care Team Providers Care Wire Steward Name Role Phone Husam Rosas MD Primary Care Provider [phone] Reason for Referral * Consultation (Routine) - Closed Specialty Diagnoses / Procedures Referred By iJn hernandez Referred To Contact Gastroenterology Diagnoses Dysphagia, unspecified type Mitch Neal MD [facility] [place] [address] [facility] Endoscopy [address] [place] [address] Referral ID Status Reason Start Date Expiration Date V isits Requested Visits Authorized [id number] Closed Consult, Test & Treat 06/01/2015 05/31/2016 1 1 Encounter Details Date Type Department Care Team (Late st Contact Info) Description 06/01/2015 8:30 AM EDT [place] [phone] Mitch Neal MD [facility] [place] [address] Partial symptomatic epilepsy with complex partial seizures, intractable, without status epilepticus; Dysphagia, unspecified type Social History Tobacco Use Types Packs/Day Years Used Date Smoking Tobacco: Some Days Cigarettes 0.5 35 Smokeless Tobacco: Never Alcohol Use Standard Drinks/Week Comments Yes 0 (1 standard drink = 0.6 oz pur e alcohol) occasional Sex and Gender Information Value Date Recorded Sex Assigned at Not on file Gender Identity Not on file Sexual Orientation Not on file documented as of this encounter Last Filed Vital Signs Vital Sign Reading Time Taken Comments Blood Pressure 148/88 06/01/2015 8:25 AM EDT Pulse 70 06/01/2015 8:25 AM EDT Temperature - - Respiratory Rate - - Oxygen Saturation - - Inhaled Oxygen Concentration - - Weight 90.7 kg (200 lb) 06/01/2015 8:25 AM EDT Height 168.9 cm (5' 6.5) 06/01/2015 8:25 AM EDT Body Mass Index 31.8 06/01/2015 8:25 AM EDT documented in this encounter Patient Instructions * Patient Instructions* Mitch Neal MD - 06/01/2015 9:40 AM EDT I will arrange for you to be seen in infectious diseases and gastroenterology. Seizures are doing about the same. Please stay on the same medications. We will see you back in 3 months. Mitch Neal [place] [address] Pager: [phone], #[phone] Email: [email or web address] documented in this encounter Progress Notes * Mitch Neal MD - 06/01/2015 9:13 AM EDT Neurology clinic note Chief Complaint: Epilepsy. [...] less frequent than before. Interval history: The picture is very confusing. 1. She was apparently seizure-free for several months on the combination of lacosamide and Aptiom, but now reports that she is having seizures. However the evidence for this is somewhat unclear. She has had some unexplained injuries. Seizures have not been observed. 2. She continues to have daily chronic headaches with daily sharp shooting pains on the right, and intermittent nausea she was seen in headache clinic by Dr. Allen who attempted Botox injections and prescribed naproxen and hydroxyzine for symptomatic relief as well as basis and the nightmares. It is uncertain whether this has had an impact. 3. She developed new skin lesions all over her arms the cause of which is at present unclear. She was seen in dermatology and no specific diagnosis was established. She is better with some triamcinolone cream. 4. She continues to complain about difficulty with swallowing. 5. She has had somewhat in irregular follow-up in infectious diseases, owing to difficulty with keeping appointments, and there is concern that she may not be compliant with her anti-HIV regimen Past medical history: Patient Active Problem List [...] bladder function are unremarkable. Physical Examination: BP 148/88 mmHg Pulse 70 Ht 168.9 cm (5' 6.5) Wt 90.719 kg (200 lb) BMI 31.80 kg/m2 LMP 11/26/2010 Head, eyes, ears, nose, and throat were normal. Her throat is somewhat erythematous Lungs are noteworthy for some wheezing. Heart was normal. Extremities were noteworthy for lesions on her arms that are erythematous papules with exacerbationby excoriation. It looks now more like atopic dermatitis Her mood was good and her speech [...] Current Outpatient Prescriptions Medication Sig Dispense Refill ? ? clonazePAM (KLONOPIN) 1 mg Tablet Take 1 tab by mouth in am & 2 tabs in pm on daily 90 tablet 5 ??? lacosamide (VIMPAT) 200 mg Tablet Take 1 tablet by mouth 2 times daily. 60 tablet 5 ??? RITONAVIR 100 mg Tablet TAKE 1 TABLET BY MOUTH ONCE A DAY 30 tablet 5 ??? VIREAD 300 mg Tablet take 1 tablet by mouth once daily 30 tablet 5 ??? meloxicam (MOBIC) 7.5 mg Tablet take 1 tablet by mouth once daily 30 tablet 5 ??? hydrOXYzine (VISTARIL) 25 mg Capsule take 1 capsule by mouth twice a day 60 capsule 5 ??? REYATAZ 300 mg Capsule take 1 capsule by mouth once daily 30 capsule 5 ??? EPZICOM 600-300 mg Tablet TAKE 1 TABLET BY MOUTH DAILY 30 tablet 5 ??? naproxen sodium (ANAPROX) 550 mg Tablet Take 550 mg by mouth 2 times daily as needed. ??? prochlorperazine (COMPAZINE) 10 mg Tablet Take 1 tablet by mouth 3 times daily as needed. 15 tablet 3 ??? eslicarbazepine (APTIOM) 800 mg Tablet Take 800 mg by mouth daily. 30 tablet 11 ??? albuterol (PROVENTIL HFA;VENTOLIN HFA) 90 mcg/Actuation inhaler Inhale 2 puffs into the lungs every 4 hours as needed. Use with spacer ??? polyethylene glycol (MIRALAX) 17 gram/dose powder Take 17 g by mouth as needed. ??? Multivitamins with Iron Tab Take 1 tablet by mouth daily. 30 tablet 11 ??? hydrocortisone 2.5 % Cream Apply topically 2 times daily. 30 g 3 No current facility-administered medications for this visit. Laboratory Studies: None today Impression: The situation is puzzling and unsatisfactory. 1. She had a [...] combination of Aptiom, Vimpat and Klonopin she was seizure free for some monthsbut now appears to have relapsed. As I don't know what really going on, I'm not going to make any changes. Anticonvulsant levels have been in a low therapeutic range 2. Headaches are still not doing well. We have not done well with multiple attempts at prophylacticand symptomatic treatment. I am inclined to just leave her on hydroxyzine and meloxicam for now. She will have a follow-up appointment with Dr. Allen. An initial round of Botox injections and trial of prazozin and does not seem to have produced much improvement. 3. The skin rash remains mysterious. It seems better with steroid cream. 4. Psychiatrically she looks somewhat better today, with less pressured speech and also somewhat more organized in her thinking. 5. I did not address the infectious disease issues today but will arrange a follow-up appointment with Dr. hernandez and ID. 6. She says she is having a lot of difficulty swallowing and there had been discussion in the past about arranging for upper endoscopy, and I'm working on that. We will try to coordinate this with her follow-up visits here. Thank you for this consultation. I will see her back in 3 months, and we will coordinate with the ID clinic. Mitch Neal MD Department [place] [address] Pager: [phone], #[phone] Email: [email or web address] cc: ROSA Allen MD documented in this encounter Miscellaneous Notes * Addendum Note - Mitch Neal MD - 06/01/2015 9:46 AM EDTAddended by: MITCH NEAL on: 06/01/2015 09:46 AM Modules accepted: Orders documented in this encounter Plan of Treatment Upcoming Encounters Date Type Department Care Team (Late st Contact Info) Description 03/06/2024 1:30 PM EST [place] [address] Mitch Neal MD [facility] [place] [address] Scheduled Referrals Name Type Priority Associated Diagnoses Order Schedule Referral to Gastroenterology Outpatient Referral Routine Dysphagia, unspecified type Ordered: 06/01/2015 documented as of this encounter Visit Diagnoses Diagnosis Partial symptomatic epilepsy with complex partial seizures, intractable, without status epilepticus Dysphagia, unspecified type documented in this encounter Care Teams Wire Steward Relationship Specialty Start Date End Date Husam Rosas MD [address] [place] [address] PCP - General 01/19/10 01/22/17 documented as of this encounter
--- OUTSIDE RECORDS SUMMARY | 2023-12-04 16:32 | XMS_ITS | Encounter Summary ---
Author Organization [facility] Address [facility] [place] [address] Care Team Providers Care Purification Director Name Role Phone Husam Rosas MD Primary Care Provider [phone] Reason for Visit * Reason Comments Medication Refill Encounter Details Date Type Department Care Team (Late Contact Info) Description 07/12/2015 Refill [place] [phone] [facility] [place] [address] HIV disease Social History Tobacco Use Types [...] Telephone Encounter - Suzie Mars RN - 07/13/2015 3:09 PM EDT [facility] in [facility] sends a request for prescription renewal for Viread and ritonavir. Will forward request to Dr Heaton. documented in this encounter Plan of Treatment Upcoming Encounters Date Type Department Care Team (Late Contact Info) Description 03/06/2024 1:30 PM EST [place] [address] [facility] [place] [address] documented as of this encounter Visit Diagnoses Diagnosis HIV disease Human immunodeficiency virus [HIV] disease documented in this encounter Care Teams Purification Director Relationship Specialty Start Date End Date Husam Rosas MD [address] [place] [address] PCP - General 01/19/10 01/22/17 documented as of this encounter
--- OUTSIDE RECORDS SUMMARY | 2023-12-04 16:32 | XMS_ITS | Encounter Summary ---
Author Organization [facility] Address [facility] [place] [address] Care Team Providers Care Customer Solutions Supervisor Name Role Phone Husam Rosas MD Primary Care Provider [phone] Encounter Details Date Type Department Care Team (Latest Contact Info) Description 10/16/2015 1:14 PM EDT - 10/16/2015 3:14 PM EDT Hospital Encounter [place] [address] Ramesh Johnson MD [facility] [place] [address] Discharge Disposition: Home Social History Tobacco Use Types Packs/Day Years Used Date Smoking Tobacco: Former Cigarettes Smokeless Tobacco: Never Alcohol Use Standard Drinks/Week Comments No 0 (1 standard drink = 0.6 oz pur e alcohol) occasional Sex and Gender Information Value Date Recorded Sex Assigned at Not on file Gender Identity Not on file Sexual Orientation Not on file documented as of this encounter Last Filed Vital Signs Vital Sign Reading Time Taken Comments Blood Pressure 160/45 10/16/2015 2:20 PM EDT Pulse 89 10/16/2015 2:20 PM EDT Temperature - - Respiratory Rate 16 10/16/2015 2:20 PM EDT Oxygen Saturation 96% 10/16/2015 2:20 PM EDT Inhaled Oxygen Concentration - - Weight - - Height - - Body Mass Index - - documented in this encounter Discharge Instructions * Discharge Instructions* Kumar Skinner RN - 10/16/2015 2:24 PM EDT You may have received medication before and/or during your procedure which effects judgement and reaction time. Do not drive, operate machinery, drink alcoholic beverages, or make important decisions for 24 hours. Be careful on stairs, as you may be unsteady on your feet. You may eat a regular diet as tolerated. Do not smoke if you are alone. IV site -- slight redness or tenderness is normal. You may use a warm compress. If tenderness and redness increases or foul drainage occurs please contact your M.D. Please call [phone] before 5 pm with problems, questions or concerns. After 5pm call [phone] and ask to speak with the federal mediator corporate vp advertising & online. Discharge instructions reviewed with patient who expresses understanding. * Attachments The following attachments cannot be sent through Care Everywhere. * EGD (UPPER ENDOSCOPY) : POST-OP (MACEDONIAN) * ESOPHAGEAL DILATION : POST-OP (MACEDONIAN) documented in this encounter Medications at Time [...] 1 tablet by mouth daily 30 tablet 10/12/2015 04/07/2016 EPZICOM 600-300 mg TabletIndications:Human immunodeficiency virus (HIV) disease take 1 tablet by mouth daily 30 tablet 5 10/12/2015 03/14/2016 REYATAZ 300 mg Capsule Take 1 capsule by mouth daily. 0 09/12/2015 11/09/2015 clonazePAM (KLONOPIN) 1 mg Tablet TAKE 1 TABLET BY MOUTH EVERY MORNING AND 2 TABLETS EVERY EVENING 90 tablet 5 08/17/2015 02/07/2016 VIMPAT 200 mg Tablet TAKE 1 TABLET BY MOUTH 2 TIMES A DAY 60 tablet 08/10/2015 02/07/2016 VIREAD 300 mg TabletIndications:HIV disease take 1 tablet by mouth once daily 30 tablet 5 07/14/2015 01/08/2016 RITONAVIR 100 mg TabletIndications:HIV disease take 1 tablet by mouth once daily 30 tablet 07/14/2015 01/08/2016 darunavir (PREZISTA) 800 mg TabletIndications:HIV disease Take [...] H&P Notes * Ramesh Johnson MD - 10/16/2015 1:42 PM EDT Gastroenterology and Hepatology Pre-Procedure History and Physical Exam Procedure: EGD: Indication: dilation stricture Patient Active Problem List Diagnosis Code ??? [...] Proceed with the planned endoscopic procedure. ASA 2 - Patient with mild systemic disease with no functional limitations Sedation Plan: moderate (conscious sedation) Risks and benefits of the procedure explained to the patient. Consent signed. documented in this encounter Plan of Treatment Upcoming Encounters Date Type Department Care Team (Late st Contact Info) Description 03/06/2024 1:30 PM EST [place] [address] Satya Wills MD [facility] [place] [address] documented as of this encounter Procedures Procedure Name Priority Date/Time Associated Diagnosis Comments SURGICAL PATHOLOGY REPORT Routine 10/16/2015 2:20 PM EDT SPECIMEN TO PATHOLOGY Routine 10/16/2015 2:20 PM EDT ESOPHAGOSCOPY, TRANSORAL; WITH BALLOON DILATION <30MM (WRVU 3.07) 10/16/2015 1:59 PM EDT Repeat EGD 1-2 months repeat dilation per bensen CONSULT UPPER GASTROINTESTINAL ENDOSCOPY,WITH BIOPSY SINGLE OR MULTIPLE (WRVU 2.39) 10/16/2015 1:59 PM EDT Repeat EGD 1-2 months repeat dilation per bensen CONSULT UPPER GI ENDOSCOPY Routine 10/16/2015 1: 48 PM EDT documented in this encounter Results * Surgical Pathology Report (10/16/2015 2:20 PM EDT) Final Diagnosis [id number] ? Location: 4T; EA07; A The signing pathologist has (i) examined the relevant preparation(s) for the specimen(s) and (ii) rendered or confirmed the diagnosis(es). . ?Surgical Pathology DIAGNOSIS Esophagus, ??biopsy: Active chronic nonspecific esophagitis with scattered apoptotic keratinocytes. No intraepithelial eosinophil is identified. GMS stain is negative. Electronically signed by: ??Seth Denis MD Verified: ??10/23/2015 ?Pathologist ADDITIONAL STUDIES Immunohistochemistry Studies: Formalin-fixed, paraffin-embedded [...] Block ? Antibody ?Result (Positive/Negative) A1 ? HSV1 ?Negative ? HSV2 ?Negative CLINICAL INFORMATION Specimen Submitted: A - Bx of esophagus Clinical History: Patient with history of severe esophagitis now on treatment, superficial sloughing of esophageal mucosa Clinical Diagnosis: Rule out EoE SPECIMEN PROCESSING A - Labeled/Fixative: BX of esophagus, formalin. Quantity/Size: Four, ranging from 0.1-0.5 cm. Tissue Description: Polypoid to partially flattened argueta soft tissues. Sections/Processing: (T1) ??shb 10/23/2015 8:30 AM EDT [facility] GI Biopsy 10/16/2015 2:20 PM EDT 10/16/2015 2:20 PM EDT Ramesh Johnson MD PATHOLOGY/CYTOLOGY O NANCY Performing Organization Address [facility] [place] [address] * Specimen to Pathology (surgical or derm) (10/16/2015 2:20 PM EDT) AP Specimen 10/16/2015 2:20 PM EDT 10/16/2015 2:20 PM EDT Narrative [facility] - 10/16/2015 2:20 PM EDT Specimen requisition ordered. ??Separate Pathology report to follow Ramesh Johnson MD PATHOLOGY/CYTOLOGY O NANCY Performing Organization Address [facility] [place] [address] * UPPER GI ENDOSCOPY (10/16/2015 1:48 PM EDT) UPPER GI ENDOSCOPY [facility] Endoscopy Procedure Date: 10/16/2015 1:48 PM ? Patient Name: Josiane Pacheco ? N: [id number] ? Date of : 1955 ? Age: 60 ? Order #: [id number] ? Instrument Name: [id number] ? Procedure: ? Upper GI endoscopy Indications: ? H/o severe esophagitis and stenosis, ? now on PPI, f/u dilation # 2. last ? dilated to 14 mm Providers: ? Ramesh Johnson MD, Alexy Garcia, ? RN, Kristine Machado RN Referring : ?Husam Rosas MD Medicines: ? Propofol per Anesthesia Complications: ? No immediate complications. Procedure: ? The procedure, indications, benefits, ? [...] the ? procedure well. ? Findings: ? A small hiatus hernia was present from 39-41 cm. ? The Z-line was regular and was found 39 cm from the ? incisors. ? One moderate benign-appearing, intrinsic stenosis was ? found 34 to 39 cm from the incisors. This measured 5 ? cm (in length) and was traversed without resistance. ? A TTS dilator was passed through the scope. Dilation ? with a 14-16 mm balloon (to a maximum balloon size of ? 16 mm) dilator was performed. The dilation site was ? examined and showed moderate improvement in luminal ? narrowing. There was a confined mucosal disruption. ? There was no esophagitis, there was however ? superficial sloughing of the mucosa throughout ? esophagus. This was biopsied to r/o EoE ? The stomach was normal. ? The examined duodenum was normal. ? Impression: ?- Small hiatus hernia. ? - Z-line regular, 39 cm from the ? incisors. ? - Benign-appearing 5 cm esophageal ? stenosis involving distal esophagus. ? Dilated to 16 mm. ? Superficial mucosal sloughing of ? mucosa biopsied ? - Normal stomach. ? - Normal examined duodenum. ? - No specimens collected. Recommendation: ?- Await pathology results. ? - Repeat the upper endoscopy in 8 ? weeks for retreatment. ? Continue Bid PPI ? __ Ramesh Johnson MD 10/16/2015 2:24:56 PM This report has been signed electronically. Number of Addenda: 0 Note Initiated On: 10/16/2015 1:48 PM PROVATION 10/16/2015 1:48 PM EDT Husam Rosas MD GENERAL SURGICAL ORDERABLES PROVATION documented in this encounter Visit Diagnoses Not on filedocumented in this encounter Administered Medications Inactive Administered Medications - up to 3 most recent administrations Medication Order MAR Action Action Date Dose Rate Site lactated ringers infusion 100 mL/hr, Intravenous, CONTINUOUS, Starting on Mon10/16/15 at 1345, Until Mon10/16/15 at 1456, Endoscopy (Day of Procedure) New Bag 10/16/2015 1:59 PM EDT New Bag 10/16/2015 1:45 PM EDT 100 mL/hr 100 mL/hr documented in this encounter Active and Recently Administered Medications Times are shown in EDT. Continuous Medication Order 10/14/2015 10/15/2015 10/16/2015 lactated ringers infusion (CANCELED) 100 mL/hr, Intravenous, CONTINUOUS, Starting on Mon10/16/15 at 1345, Until Mon10/16/15 at 1456, Endoscopy (Day of Procedure) 1345 (New Bag - Prov ider: Linda Pantoja RN)1359 (New Bag - Provider: Deidre Bhatt CRNA)1416 (Stopped - Provider: Deidre Bhatt CRNA) documented in this encounter Care Teams Customer Solutions Supervisor Relationship Specialty Start Date End Date Husam Rosas MD [address] [place] [address] PCP - General 01/19/10 01/22/17 documented as of this encounter
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
--- OUTSIDE RECORDS SUMMARY | 2023-12-04 16:32 | XMS_ITS | Encounter Summary ---
Author Organization [facility] Address [facility] [address] Care Team Providers Care Liaison Inspection Laboratory Assistant Name Role Phone Husam Rosas MD Primary Care Provider [phone] [phone] Encounter Details Date Type Department Care Team (Late st Contact Info) Description 07/31/2015 2:30 PM EDT - 07/31/2015 3:00 PM EDT [place] [address] Ramesh Johnson MD [facility] [place] [address] ESOPHAGOSCOPY, TRANSORAL; WITH BALLOON DILATION <30MM (WRVU 3.07) Social History Tobacco Use Types Packs/Day Years [...] Sign Reading Time Taken Comments Blood Pressure 122/74 07/31/2015 3:47 PM EDT Pulse 81 07/31/2015 3:47 PM EDT Temperature - - Respiratory Rate 18 07/31/2015 3:47 PM EDT Oxygen Saturation 96% 07/31/2015 3:47 PM EDT Inhaled Oxygen Concentration - - Weight - - Height - - Body Mass Index - - documented in this encounter Discharge Instructions * Attachments The following attachments cannot be sent through Care Everywhere. * EGD (UPPER ENDOSCOPY) : POST-OP (KYRGYZ) documented in this encounter Medications at Time of Discharge Medication Sig Dispensed Refills Start Date End Date PHENADOZ [address] 25 mg rectally as needed. Reported on 07/13/2016 0 06/01/2015 01/14/2020 VIREAD 300 mg TabletIndications:HIV disease take 1 tablet by mouth once daily 30 tablet 5 07/14/2015 01/08/2016 RITONAVIR 100 mg TabletIndications:HIV disease take 1 tablet by mouth once daily 30 tablet 5 07/14/2015 01/08/2016 darunavir (PREZISTA) 800 mg TabletIndications:HIV disease Take 1 tablet by mouth daily. 30 tablet 3 07/08/2015 02/08/2016 omeprazole (PRILOSEC) 20 mg Capsule, Delayed Release(E.C.)Indications :Gastro-esophageal reflux disease with esophagitis,S/P balloon dilatation of esophageal stricture Take 2 capsules by mouth daily. 60 capsule 11 06/30/2015 06/29/2016 hydrOXYzine (VISTARIL) 25 mg Capsule take 1 capsule by mouth twice a day 60 capsule 5 05/13/2015 10/10/2015 meloxicam (MOBIC) 7.5 mg Tablet take 1 tablet by mouth once daily 30 tablet 5 05/13/2015 10/10/2015 APTIOM 400 mg Tablet take 2 tablets (800MG) by mouth once daily 60 tablet 11 04/13/2015 04/07/2016 abacavir-lamiVUDine (EPZICOM) 600-300 mg TabletIndications:Human immunodeficiency virus (HIV) disease Take 1 tablet by mouth daily. 30 tablet 5 04/13/2015 10/10/2015 triamcinolone (KENALOG) 0.1 % OintmentIndications:Derm atitis Apply to affected areas on the trunk and extremities twice a day as needed for itching. 454 g 1 03/06/2015 03/07/2017 clonazePAM (KLONOPIN) 1 mg Tablet Take 1 tab by mouth in am & 2 tabs in pm on daily 90 tablet 5 02/10/2015 08/15/2015 lacosamide (VIMPAT) 200 mg Tablet Take 1 tablet by mouth 2 times daily. 60 tablet 5 02/10/2015 08/08/2015 hydrocortisone 2.5 % Cream Apply topically 2 [...] H&P Notes * Ramesh Johnson MD - 07/31/2015 2:57 PM EDT Gastroenterology and Hepatology Pre-Procedure History and Physical Exam Procedure: EGD: Indication: dilation peptic stricture Patient Active Problem List Diagnosis Code [...] disease with no functional limitations Sedation Plan: anesthesia Risks and benefits of the procedure explained to the patient. Consent signed. documented in this encounter Plan of Treatment Upcoming Encounters Date Type Department Care Team (Late st Contact Info) Description 03/06/2024 1:30 PM EST [place] [address] Satya Wills MD [facility] [place] [address] documented as of this encounter Procedures Procedure Name Priority Date/Time Associated Diagnosis Comments SURGICAL PATHOLOGY REPORT Routine 07/31/2015 3:44 PM EDT SPECIMEN TO PATHOLOGY Routine 07/31/2015 3:44 PM EDT ESOPHAGOSCOPY, TRANSORAL; WITH BALLOON DILATION <30MM (WRVU 3.07) 07/31/2015 3:08 PM EDT Repeat EGD 3-4 weeks from 06/23/15 for retreatment with balloon dilation and with Anesthesia to allow for dilation and biopsies.-per Onel CONSULT UPPER GI ENDOSCOPY Routine 07/31/2015 3: 02 PM EDT documented in this encounter Results * Surgical Pathology Report (07/31/2015 3:44 PM EDT) Final Diagnosis [id number] ? Location: 4T; 06; A The signing pathologist has (i) examined the relevant preparation(s) for the specimen(s) and (ii) rendered or confirmed the diagnosis(es). . ?Surgical Pathology DIAGNOSIS Esophagus, ??biopsy: - Active esophagitis with increased lymphocytes ?(see Note). Note: Immunohistochemistry for CD4 and CD8 lymphocytes was evaluated for final diagnosis. 08/03/15 AAY 08/04/15 Verified by: ? Tre Jose MD ?Pathologist ?(Electronic Signature) The attending pathologist whose signature appears on this report has reviewed all diagnostic slides and has edited the gross and/or microscopic portion of the report in rendering the final pathologic diagnosis. ADDITIONAL STUDIES Immunohistochemistry Studies: Formalin-fixed, paraffin-embedded tissue [...] Block ? Antibody ?Result (Positive/Negative) A1 ? CD4 and CD8 ?CD8-predominant intraepithelial lymphocytes CLINICAL INFORMATION Specimen Submitted: A - Bx of esophagus Clinical History: Patient with esophageal Ring, rule out EOE Clinical Diagnosis: Same SPECIMEN PROCESSING A - Labeled/Fixative: Biopsy of esophagus, formalin. Quantity/Size: Three, 0.2 x 0.1 cm. Tissue Description: Soft, argueta-pink tissue, wispy. Sections/Processing: (T1) ??pps 08/04/2015 3:13 PM EDT [facility] GI Biopsy 07/31/2015 3:44 PM EDT 07/31/2015 3:44 PM EDT Ramesh Johnson MD PATHOLOGY/CYTOLOGY O NANCY Performing Organization Address [facility] Co de Phone Number [facility] [place] [address] * Specimen to Pathology (surgical or derm) (07/31/2015 3:44 PM EDT) AP Specimen 07/31/2015 3:44 PM EDT 07/31/2015 3:44 PM EDT Narrative [facility] - 07/31/2015 3:44 PM EDT Specimen requisition ordered. ??Separate Pathology report to follow Ramesh Johnson MD PATHOLOGY/CYTOLOGY O NANCY Performing Organization Address [facility]/State/ZIP Co de Phone Number [facility] [address] * UPPER GI ENDOSCOPY (07/31/2015 3:02 PM EDT) UPPER GI ENDOSCOPY [facility] Endoscopy Patient Name: Annie Pacheco ? Procedure Date: 07/31/2015 3:02 PM ? Date of : 1955 ? Age: 59 ? Order #: [id number] ? Procedure: ? Upper GI endoscopy Indications: ? Dysphagia, Pt with known esophageal ? stricture and severe esophagitis, now ? on PPI, f/u EGD and dilation Providers: ? Ramesh Johnson MD, Darrell Bates, ? RN, Vy Kaminski MD: ?Husam Rosas MD Medicines: ? [...] ? procedure well. ? Findings: ? The esophagitis has healed. ? One moderate benign-appearing, intrinsic stenosis was ? found 36 to 39 cm from the incisors. This measured 3 ? cm (in length) and was traversed with mild ? resistance. Passing the scope dilated it slightly. A ? TTS dilator was passed through the scope. Dilation ? with a 12-14 mm balloon (to a maximum balloon size of ? 14 mm) dilator was performed. This dilated the ? stenosis creating a confined mucosal disruption. ? Biopsies were taken with a cold forceps for histology ? of the mid esophagus. Estimated blood loss was ? minimal. ? The stomach was normal. ? The examined duodenum was normal. ? Impression: ?- Benign-appearing esophageal ? stenosis. Dilated to 14 mm. ? Esophagus Biopsied. ? - Normal stomach. ? - Normal examined duodenum. Recommendation: ?- Repeat the upper endoscopy in 1-2 ? months repeat dilation ? Continue PPI ? __ Ramesh Johnson MD 07/31/2015 3:36:39 PM This report has been signed electronically. Number of Addenda: 0 Note Initiated On: 07/31/2015 3:02 PM PROVATION 07/31/2015 3:02 PM EDT Husam Rosas MD GENERAL SURGICAL ORDERABLES PROVATION documented in this encounter Visit Diagnoses Not on filedocumented in this encounter Administered Medications Inactive Administered Medications - up to 3 most recent administrations Medication Order MAR Action Action Date Dose Rate Site ondansetron (ZOFRAN) injection 4 mg 4 mg, Intravenous, EVERY 8 HOURS PRN, Starting on 07/31/15 at 1549, Until Mon07/31/15 at 1622, Nausea, Endoscopy (Recovery-Hospital Unit) Given 07/31/2015 3:50 PM EDT 4 mg documented in this encounter Active and Recently Administered Medications Times are shown in EDT. PRN Medication Order 07/29/2015 07/30/2015 07/31/2015 ondansetron (ZOFRAN) injection 4 mg (CANCELED) 4 mg, Intravenous, EVERY 8 HOURS PRN, Starting on 07/31/15 at 1549, Until 07/31/15 at 1622, Nausea, Endoscopy (Recovery-Hospital Unit) 1550 (Given - Provid er: Rafael Leon RN) documented in this encounter Care Teams Liaison Inspection Laboratory Assistant Relationship Specialty Start Date End Date Husam Rosas MD [address] [place] [address] PCP - General 01/19/10 01/22/17 documented as of this encounter
--- OUTSIDE RECORDS SUMMARY | 2023-12-04 16:32 | XMS_ITS | Encounter Summary ---
Author Organization [facility] Address [facility] [place] [address] Care Team Providers Care Staffing Branch Manager Name Role Phone Husam Rosas MD Primary Care Provider [phone] Encounter Details Date Type Department Care Team (Latest Contact Info) Description 12/14/2015 11:00 AM EDT Office Visit Infectious Disease at [facility] [place] [address] Drew Heaton MD [facility] [place] [address] Human immunodeficiency virus (HIV) disease (Primary Dx); HIV disease Social History Tobacco Use Types [...] Sign Reading Time Taken Comments Blood Pressure 126/85 12/14/2015 11:07 AM EDT Pulse 71 12/14/2015 11:07 AM EDT Temperature 36.8 ??C (98.3 ??F) 12/14/2015 11:07 AM E DT Respiratory Rate 20 12/14/2015 11:07 AM EDT Oxygen Saturation - - Inhaled Oxygen Concentration - - Weight 82.6 kg (182 lb) 12/14/2015 11:07 AM EDT Height - - Body Mass Index 28.94 11/18/2015 3:23 PM EDT documented in this encounter Progress Notes * Drew Heaton MD - 12/14/2015 11:00 AM EDT This is a scheduled appointment for an HIV infected woman last seen by me in clinic nine months ago, since when she has done better. She has now undergone two dilatations of gastric styricture and her problem with vomiting is much improved; and has thus been much more adherent to ART. Seizures are also much less frequent. She has also much reduced alcohol use. Blood pressure 126/85, pulse 71, temperature 36.8 ??C (98.3 ??F), resp. rate 20, weight 82.6 kg (182 lb), last menstrual period 11/26/2010. Overweight woman in no apparent distress. NC/AT. EOMI. Skin with diffuse rash, scattered excoriated papules, but better than previously. Throat benign. Heart RRR no m/r/g. Lungs CTA. Abdomen benign. Neuro. grossly nonfocal. Baseline Data Serologies/Screening: Monitoring HIV DX: /1990 CDQ : 12/31/2010 Family Planning: Routine nutritional eval: Ophtho exam: Dental eval: Adherence score: Hep A IgG: Hep B sAb: 02/08/2013 Neg Hep B cAb: (IgG): Hep B sA07/15/2014 Neg eAg: eAb: DNA PCR: Hep C Ig07/15/2014 Neg Genotype: Viral load: Anyt hx rx? : Y/N free text dates AFP: U/S: Liver Study: Toxo IgG: CMV IgG: RPR Titers: 12/31/2010 03/05/2008 10/31/2003 PPD: 03/02/2012 neg CXR: Rx status: Cervical pap: 03/04/2013 Normal 03/02/2012 Normal 08/11/2010 Normal Vag colpo: Last pelvic: [place] exam: 05/27/2009 Anal pap: Rectal colpo: CD4: 12/14/2015 11/10/2015 85 8 02/10/2015 195 8 Chris: 12/14/2015 VL: 12/14/2015 11/10/2015 22,948 02/10/2015 18,582 Max VL: 04/30/2003 28,700 Resist assays: 02/08/2013 no resistance mutations 07/26/2011 no resistance mutations 10/01/2010 no resistance Weights: 12/31/2010 97.977 12/16/2009 91.17 05/27/2009 83.91 Lipids: Total chol: 01/16/2009 207 LDL: 01/16/2009 115 HDL: 01/16/2009 68 Tri01/16/2009 121 Vaccines Influenza: 11/27/2014 Pneumovax: 09/16/2009 08/17/2001 Td: Tdap: 10/03/2008 HepA: 04/06/2001 HepB 20: 12/25/2002 HepB 40: HPV: Twinrix: Assessment and Plan: 1. HIV. She continues a penitentiary pattern of brief periods of relatively suppressed HIV with longerperiods of increased viral loads during which time she claims excellent adherence but with resistance tests showing no mutations. Most recently her viral load has remained +/-20k and her CD4 has beendropping, now even farther into the AIDS range. We have been challenged to engage Josiane in better understanding this, but it now seems that the problem at least in part has been problems keepoing the pills down because of the gastric stricture. I will thus check CD4, PCR and genotype and base further decisions thereon. 2. Adherence. She regularly states that she is been 100% adherent, and I reinforced the importance of remaining so, but - as above - this clearly is far from accurate. 3. Chemoprophylaxis. None previously indicated by CD4, but she will need Bactrim if repeat CD4 today is still low. 4. Immunoprophylaxis. Up to date save declines flu vaccine. 5. Risk reduction. Not sexually active since last seen - she has previously said that she is alwayssafe. 6. Seizure disorder/headaches. She is under the care of Dr. Wills. 7. Psychiatric. Her mood is significantly better. 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 Pap smear February 2013 was normal and [...] the holidays, 2013 in conjunction with neighboring tennants but again started and doesn't feel that [...] 16. Odynophagia/gastric stricture. Much improved after dilatation. 30 minutes [id number] time spent with the patient, 20 minutes of which was in discussion and counseling. Follow-up in 2 months. documented in this encounter Plan of Treatment Upcoming Encounters Date Type Department Care Team (Late st Contact Info) Description 03/06/2024 1:30 PM EST Office [place] [address] Satya Wills MD [facility] [place] [address] Pending Results Name Type Priority Associated Diagnoses Date /Time HIV-1 RNA, quantitative, PCR Lab Routine Human immunodeficiency virus (HIV) disease 12/14/2015 12:34 PM EDT Scheduled Orders Name Type Priority Associated Diagnoses Orde r Schedule CBC (with Diff) Lab Routine Human immunodeficiency virus (HIV) disease Expected: 12/14/2015 (Approximate), Expires: 01/13/2016 HIV-1 RNA, quantitative, PCR Lab Routine Human immunodeficiency virus (HIV) disease Expected: 12/14/2015 (Approximate), Expires: 01/13/2016 Comprehensive metabolic panel (non-fasting) Lab Routine Human immunodeficiency virus (HIV) disease Expected: 12/14/2015 (Approximate), Expires: 01/13/2016 documented as of this encounter Procedures Procedure Name Priority Date/Time Associated Diagnosis Comments HIV QUANT Routine 12/14/2015 12:18 PM EDT HIV disease SCAN, PERIPHERAL BLOOD Routine 12/14/2015 12:18 PM EDT CD4 Routine 12/14/2015 12:18 PM EDT HIV disease HEMOGRAM Routine 12/14/2015 12:18 PM EDT HIV disease DIFFERENTIAL, AUTOMATED Routine 12/14/2015 12:18 PM EDT HIV disease SYPHILIS ANTIBODY SCREEN WITH REFLEX Routine 12/14/2015 12:18 PM EDT Human immunodeficiency virus (HIV) disease HIV-1 RNA, QUANTITATIVE, PCR Routine 12/14/2015 12:18 PM EDT HIV disease TOXOPLASMA ANTIBODY, IGG Routine 12/14/2015 12:18 PM EDT Human immunodeficiency virus (HIV) disease CMV ANTIBODY, IGG Routine 12/14/2015 12: 18 PM EDT Human immunodeficiency virus (HIV) disease CBC (WITH DIFF) Routine 12/14/2015 12:18 PM EDT HIV disease COMPREHENSIVE METABOLIC PANEL Routine 12/14/2015 12:18 PM EDT HIV disease documented in this encounter Results * Scan, Peripheral Blood (12/14/2015 12:18 PM EDT) Pathologist [facility] Plat estimate Normal [facility] RBC Morphology Abnormal [facility] Macrocyte 1-5 /HPF [facility] Blood specimen (specimen) 12/14/2015 12:18 PM EDT 12/14/2015 12:32 PM EDT Narrative Resulting Agency Comment Spec In Lab Drew Heaton MD HEMATOLOGY ORDERABLE S [facility] [place] [address] * HIV Quant (12/14/2015 12:18 PM EDT) HIV Viral Load Result (Qualitative) * RESULT: <20 copies/mL * (But Detected) INDICATION FOR STUDY: HIV-1 Infection ANALYSIS: A [...] Administration. Robert Fuentes, Ph.D. Director, Molecular Pathology [facility] Comment: [VERIFIED DATE]12.17.15 Verified By:Paty Kaur (Electronic Signature) Blood specimen (specimen) 12/14/2015 12:18 PM EDT 12/16/2015 11:16 AM EDT Narrative Resulting Agency Comment Spec In Lab Drew Heaton MD HEMATOLOGY ORDERABLE S [facility] [place] [address] * Differential, Automated (12/14/2015 12:18 PM EDT) Neutrophil % 45.5 % [facility] Neutrophil Absolute 1.77 1.70 - 6.10 x10(3)/[facility] Lymph % 41.1 % [facility] Lymphocytes Abs 1.6 0.9 - 3.2 x10(3)/[facility] Monocyte % 7.7 % [facility] Monocyte Abs 0.3 0.3 - 0.9 x10(3)/[facility] Eos % 4.4 % [facility] Eosinophils Abs 0.2 0.0 - 0.4 x10(3)/[facility] Basophil % 1.0 % [facility] Baso Absolute 0.0 0.0 - 0.1 x10(3)/[facility] Immature Gran % 0.30 % [facility] Comment: Immature granulocytes(IG's)percentage and absolute count will include metamyelocytes, myelocytes, and promyelocytes. Blood smears from CBCs yielding IG's will be scanned manually for concordance. If this scan disagrees with the automated IG or if promyelocytes are noted, a manual differential will be performed. Immature Gran Absolute 0.01 0.00 - 0.04 x10(3)/[facility] Blood specimen (specimen) 12/14/2015 12:18 PM EDT 12/14/2015 12:32 PM EDT Narrative Resulting Agency Comment Spec In Lab Drew Heaton MD HEMATOLOGY ORDERABLE S [facility] [place] [address] * (ABNORMAL) Hemogram (12/14/2015 12:18 PM EDT) White Blood Cell 3.9(L) 4.0 - 9.5 x10(3)/[facility] Red Blood Cell 4.08 4.00 - 5.21 x10(6)/ L [facility] Hemoglobin 14.2 11.7 - 15.5 gm/dL [facility] Hematocrit 40.0 35.7 - 45.8 % [facility] Mean Cell Volume 98.0(H) 82.6 - 94.4 fL [facility] Mean Cell Hemoglobin 34.8(H) 27.1 - 32.0 pg [facility] Mean Cell Hemoglobin Concentration 35.5(H) 31.7 - 35.0 gm/dL [facility] Platelet 197 145 - 357 x10(3)/ L [facility] RDW Standard Deviation 44.4 37.0 - 46.0 fL [facility] RDW coefficient of variation 12.2 11.5 - 14.1 % [facility] Mean Platelet Volume 9.4 7.6 - 12.9 fL [facility] NRBC% auto 0.0 % [facility] NRBC Absolute 0.000 0.000 - 0.000 x10(3)/mc L [facility] Blood specimen (specimen) 12/14/2015 12:18 PM EDT 12/14/2015 12:32 PM EDT Narrative Resulting Agency Comment Spec In Lab Drew Heaton MD HEMATOLOGY ORDERABLE S [facility] [place] [address] * (ABNORMAL) Comprehensive metabolic panel (non-fasting) (12/14/2015 12:18 PM EDT) Glucose 97 65 - 199 mg/dL [facility] Comment:Diabetes: >=200 mg/d L plus symptoms Blood Urea Nitrogen 7(L) 8 - 18 mg/dL [facility] Creatinine 0.81 0.70 - 1.20 mg/dL [facility] Comment: Please note that the pediatric reference intervals supplied above were not validated at [facility] [place], [place]. Results from pediatric patients should be interpreted in conjunction to the patient's age, height and muscle mass. Sodium 135 135 - 145 mmol/L [facility] Potassium 3.8 3.5 - 5.0 mmol/L [facility] Comment: Please note: ??Patients with WBC >100,000 may have falsely elevated Potassium levels. ??For accurate Potassium quantification in these patients send serum separator tube (gold top) for subsequent determinations. ??Contact the Clinical Chemistry Laboratory if there are any questions. Chloride 98 98 - 107 mmol/L [facility] Carbon Dioxide 21(L) 22 - 31 mmol/L [facility] Anion Gap 16(H) 5 - 15 mmol/L [facility] Calcium 10.5 8.5 - 10.5 mg/dL [facility] Protein, Total 8.2(H) 6.1 - 8.0 gm/dL [facility] Albumin 4.5 3.2 - 5.2 gm/dL [facility] Aspartate Aminotransferase 42(H) 0 - 30 unit/L [facility] Alanine Aminotransferase 31(H) 0 - 30 unit/L [facility] Alkaline Phosphatase 55 40 - 104 unit/L [facility] Bilirubin, Total 0.6 0.2 - 1.3 mg/dL [facility] Bilirubin, Direct 0.2 0.0 - 0.3 mg/dL [facility] Est Glomerular Filtration Rate >60 >=60 [facility] Comment: This estimated GFR (eGFR) value [...] the following links into your internet browser. [email or web address] Blood specimen (specimen) 12/14/2015 12:18 PM EDT 12/14/2015 12:32 PM EDT Narrative Resulting Agency Comment Spec In Lab Drew Heaton MD CHEMISTRY ORDERABLES [facility] [place] [address] * (ABNORMAL) CD4 (12/14/2015 12:18 PM EDT) CD3% 90(H) 55 - 82 % [facility] CD3 ABS 1,435 731 - 2,438 /[facility] CD 4% 10(L) 35 - 61 % [facility] CD 4ABS 152(L) 503 - 1,736 /[facility] Comment: This assay is a [...] CD4, CD8, CD19, CD16+56) White Blood Cell 3.9(L) 4.0 - 9.5 x10(3)/[facility] Lymph % 41.1 % [facility] Lymphocytes Abs 1.6 0.9 - 3.2 x10(3)/[facility] Blood specimen (specimen) 12/14/2015 12:18 PM EDT 12/14/2015 12:32 PM EDT Narrative Resulting Agency Comment Spec In Lab Drew Heaton MD HEMATOLOGY ORDERABLE S [facility] [place] [address] * Syphilis Antibody, IgG (12/14/2015 12:18 PM EDT) Syphilis IgG Neg Neg [facility] Blood specimen (specimen) 12/14/2015 12:18 PM EDT 12/15/2015 8:01 AM EDT Narrative Resulting Agency Comment Spec In Lab Drew Heaton MD CHEMISTRY ORDERABLES Performing Organization Address City/[facility]/ZIP Co de Phone Number [facility] [place] [address] * (ABNORMAL) CMV Antibody, IgG (12/14/2015 12:18 PM EDT) CMV IgG Pos(A) Neg [facility] Blood specimen (specimen) 12/14/2015 12:18 PM EDT 12/15/2015 8:01 AM EDT Narrative Resulting Agency Comment Spec In Lab Drew Heaton MD IMMUNOLOGY ORDERABLE S [facility] [place] [address] * (ABNORMAL) Toxoplasma Antibody, IgG (12/14/2015 12:18 PM EDT) Toxoplasma Antibody IgG Pos(A) Neg [facility] Blood specimen (specimen) 12/14/2015 12:18 PM EDT 12/15/2015 8:01 AM EDT Narrative Resulting Agency Comment Spec In Lab Drew Heaton MD IMMUNOLOGY ORDERABLE S Performing Organization Address City/[facility] Co de Phone Number [facility] [place] [address] documented in this encounter Visit Diagnoses Diagnosis Human immunodeficiency virus (HIV) disease- Primary Human immunodeficiency virus [HIV] disease HIV disease Human immunodeficiency virus [HIV] disease documented in this encounter Care Teams Staffing Branch Manager Relationship Specialty Start Date End Date Husam Rosas MD [address] [place] [address] PCP - General 01/19/10 01/22/17 documented as of this encounter
--- OUTSIDE RECORDS SUMMARY | 2023-12-04 16:32 | XMS_ITS | Encounter Summary ---
Author Organization [facility] Address [facility] [place] [address] Care Team Providers Care Financial Reporting Director Name Role Phone Husam Rosas MD Primary Care Provider [phone] Reason for Visit * Reason Comments Migraine Encounter Details Date Type Department Care Team (Late st Contact Info) Description 06/01/2015 11:30 AM EDT Office [place] [phone] Alicia Allen MD [facility] [place] [address] Chronic migraine without aura with status migrainosus, [...] Time Taken Comments Blood Pressure 148/88 06/01/2015 8:31 AM EDT Pulse 70 06/01/2015 8:31 AM EDT Temperature - - Respiratory Rate - - Oxygen Saturation - - Inhaled Oxygen Concentration - - Weight 90.7 kg (200 lb) 06/01/2015 8:31 AM EDT Height 167.6 cm (5' 6) 06/01/2015 8:31 AM EDT Body Mass Index 32.28 06/01/2015 8:31 AM EDT documented in this encounter Patient Instructions * Patient Instructions* Alicia Allen MD - 06/01/2015 11:32 AM EDT Images from the original note were not included. Office Number: (Jeanne - Lavina) Clinic nurse number for most issues and prescription refills (Kareem) (Zoraida) (Elva) Please call for refills when you have one month left on your medication, we have 48 hours from the time you call to get the medication refill placed. Please call the clinic rather then using [employer] or e-mail, as the communication is better [...] sodium 550mg twice a day as needed - For rescue Phenergan 25mg -50mg suppository Tests: MRI brain with and without contrast Follow-up with Dr. Allen in 12 weeks for Botox Clinic [facility] Migraine Headache: After Your Visit Your Care Instructions Migraines are painful, throbbing headaches that often start on one side of the head. They may causenausea and vomiting and make you sensitive to light, sound, or smell. Without treatment, migraines can last from 4 hours to a few days. Medicines can help prevent migraines or stop them after they have started. Your doctor can help you find which ones work best for you. Follow-up care is a baldwin part of your treatment and safety. Be sure to make and go to all appointments, and call your doctor if you are having problems. It's also a good idea to know your test resultsand keep a list of the medicines you take. How can you care for yourself at home? ?? Do not drive if you have taken a prescription pain medicine. ?? Rest in a quiet, dark room until your headache is gone. Close your eyes, and try to relax or go to sleep. Don't watch TV or read. ?? Put a cold, moist cloth or cold pack on the painful area for 10 to 20 minutes at a time. Put a thin cloth between the cold pack and your skin. ?? Use a warm, moist towel or a heating pad set on low to relax tight shoulder and neck muscles. ?? Have someone gently massage your neck and shoulders. ?? Take your medicines exactly as prescribed. Call your doctor if you think you are having a problem with your medicine. You will get more details on the specific medicines your doctor prescribes. ?? Be careful not to take pain medicine more often than the instructions allow. You could get worseor more frequent headaches when the medicine wears off. To prevent migraines ?? Keep a headache diary so you can figure out what triggers your headaches. Avoiding triggers may help you prevent headaches. Record when each headache began, how long it lasted, and what the pain was like. (Was it throbbing, aching, stabbing, or dull?) Write down any other symptoms you had with the headache, such as nausea, flashing lights or dark spots, or sensitivity to bright light or loud noise. Note if the headache occurred near your period. List anything that might have triggered the headache. Triggers may include certain foods (chocolate, cheese, wine) or odors, smoke, bright light, stress, or lack of sleep. ?? If your doctor has prescribed medicine for your migraines, take it as directed. You may have medicine that you take only when you get a migraine and medicine that you take all the time to help prevent migraines. ?? If your doctor has prescribed medicine for when you get a headache, take it at the first sign ofa migraine, unless your doctor has given you other instructions. ?? If your doctor has prescribed medicine to prevent migraines, take it exactly as prescribed. Callyour doctor if you think you are having a problem with your medicine. ?? Find healthy ways to deal with stress. Migraines are most common during or right after stressfultimes. Take time to relax before and after you do something that has caused a migraine in the past. ?? Try to keep your muscles relaxed by keeping good posture. Check your jaw, face, neck, and shoulder muscles for tension. Try to relax them. When you sit at a desk, change positions often. And make sure to stretch for 30 seconds each hour. ?? Get plenty of sleep and exercise. ?? Eat meals on a regular schedule. Avoid foods and drinks that often trigger migraines. These include chocolate, alcohol (especially red wine and port), aspartame, monosodium glutamate (MSG), and some additives found in foods (such as hot dogs, mcgovern, cold cuts, aged cheeses, and pickled foods). ?? Limit caffeine. Don't drink too much coffee, tea, or soda. But don't quit caffeine suddenly. That can also give you migraines. ?? Do not smoke or allow others to smoke around you. If you need help quitting, talk to your doctorabout stop-smoking programs and medicines. These can increase your chances of quitting for good. ?? If you are taking control pills or hormone therapy, talk to your doctor about whether theyare triggering your migraines. When should you call for help? Call 911 anytime you think you may need emergency care. For example, call if: ?? You have signs of a stroke. These may include: ?? Sudden numbness, paralysis, or weakness in your face, arm, or leg, especially on only one side of your body. ?? Sudden vision changes. ?? Sudden trouble speaking. ?? Sudden confusion or trouble understanding simple statements. ?? Sudden problems with walking or balance. ?? A sudden, severe headache that is different from past headaches. Call your doctor now or seek immediate medical care if: ?? You have new or worse nausea and vomiting. ?? You have a new or higher fever. ?? Your headache gets much worse. Watch closely for changes in your health, and be sure to contact your doctor if: ?? You are not getting better after 2 days (48 hours). Where can you learn more? Visit our health information library at [email or web address] Technologiesinfo You can also view health information on [email or web address], your personal patient account. Log in or sign up today. Enter U690 in the search box to learn more about Migraine Headache: After Your Visit. ?? 1482-2002 [employer]. Care instructions adapted under license by [facility]. This care instruction is for use with your licensed healthcare professional. If you have questions about a medical condition or this instruction, always ask your healthcare professional. [employer] disclaims any warranty or liability for your use of this information. Content Version: 10.4.414149; Current as of: May 08, 2013 documented in this encounter Progress Notes * Alicia Allen MD - 06/01/2015 10:46 AM EDT Neurology Headache Clinic Follow-up Patient Name: Josiane Pacheco Patient ID: Josiane Pacheco is a 59 y.o. right handed female with PMH HIV, [...] epileptic seizures. She was diagnosed in [place] with petit mall seizures the progress to grand mal seizures later in life. 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 In college the patient recalls that her [...] the preempt protocol 08/27/[address] Alejandro Waters (SE itching) Lamictal for seizures Naproxen sodium Vistaril Percocet Tylenol ASA Excedrin Migraine Vistaril - SE palpitations, dizziness Prazosin SE dizziness Current Medications: Naproxen sodium No h/o renal stones Has h/o asthma Interval History: Patient had single Botox injection 08/28/2015 per the PREEMPT protocol She left in January without getting her injections She is returning to f/u today after Dr. Wills's evaluation int epilepsy clinic Patient reports that she was unable to make her ride stay in January She reports that she does have 2-3 DINERO days free per week Then she will have a DINERO in the morning when she is waking up or when she is sitting around She has associated Nausea vomiting, photophobia and phonophobia occasionally feel like my scalp is shrinking She is not taking the Vistaril because she had Palpitations - dizziness as well as shortness of breath therefore she is not taking the medication any more She is taking the naproxen sodium once a day - when having DINERO It can take away the DINERO for a while She has not received the recommended phenergan suppositories She has not been keeping a DINERO calender recently - has in the past She reports no change in DINERO after first set of Botox injections but did nt get the second set of injections due to care/ride trouble Patient missed her MRI brain appt in October 2014 TSH is normal and reported above Medications: Current Outpatient Prescriptions Medication Sig Dispense Refill ??? hydrOXYzine (VISTARIL) 25 mg Capsule take 1 capsule by mouth twice a day 60 capsule 5 ??? meloxicam (MOBIC) 7.5 mg Tablet take 1 tablet by mouth once daily 30 tablet 5 ??? APTIOM 400 mg Tablet take 2 tablets (800MG) by mouth once daily 60 tablet 11 ??? abacavir-lamiVUDine (EPZICOM) 600-300 mg Tablet Take 1 tablet by mouth daily. 30 tablet 5 ??? atazanavir (REYATAZ) 300 mg Capsule Take 1 capsule by mouth daily. 30 capsule 5 ??? triamcinolone (KENALOG) 0.1 % Ointment Apply to affected areas on the trunk and extremities twice a day as needed for itching. 454 g 1 ? ? clonazePAM (KLONOPIN) 1 mg Tablet Take 1 tab by mouth in am & 2 tabs in pm on daily 90 tablet 5 ??? lacosamide (VIMPAT) 200 mg Tablet Take 1 tablet by mouth 2 times daily. 60 tablet 5 ??? hydrocortisone 2.5 % Cream Apply topically 2 times daily. 30 g 3 ??? RITONAVIR 100 mg Tablet TAKE 1 TABLET BY MOUTH ONCE A DAY 30 tablet 5 ??? VIREAD 300 mg Tablet take 1 tablet by mouth once daily 30 tablet 5 ??? naproxen sodium (ANAPROX) [...] facility-administered medications for this visit. Physical Exam: Filed Vitals: 06/01/15 0831 BP: 148/88 Pulse: 70 Constitutional: Patient of apparent stated age, no [...] Assessment and Plan: Josiane Pacheco is a 59 y.o. right handed female with PMH HIV, HIV meningitis, epilepsy s/p right temporal lobectomy 11/2006( by Dr. Ryan), anxiety, depression, asthma with DINERO that are most consistent with a chronic migraine without aura. Patient is continuing to have very frequent headaches, reports to 3 headache free days per week. She is not been maintaining a journal. I've asked her to maintain a headache calendar to keep better accounted for her headaches. During the course of evaluation she contradicts herself many times and at times says that she has a daily headache. It is unclear if the first set of Botox injections was helpful, however we need to set of injections 12 weeks apart to determine whether or not this is ineffective course of management. The dosing is cumulative and may not help the first time she gets it. I would like to repeat these injections today. Patient to sign a new consent form and is agreeable to this. For mild to moderate headache symptoms I recommend that she continues using naproxen sodium.For severe exacerbations and rescue she will have Phenergan suppositories available. She reports that she was not able to obtain them last time. I'm sending a new prescription.DHE is contraindicated in this patient with her anti-viral regimen. We can consider the use of Thorazine suppositories in the future depending on how her headaches respond to the above management. We also discussed the importance of addressing psychiatric co-morbidities in the management of headaches. If anxiety, depression and PTSD are not being appropriately managed then it makes the headaches more difficult if not impossible to manage. She is no longer taking the prazosin for her nightmares. She reports that she has not made plans to have a psychiatry evaluation. She has a psychiatry referral pending. I think this would be a very useful evaluation for her. She also never underwent the MRI brain that I recommended when I first met her. She had hip appointment scheduled in October did not show up. Patient appeared surprised when I told her about this during the clinic appointment. I will reorder the imaging to rule out other secondary causes for her headache. # Chronic Migraine without aura - Keep Headache diary - MRI brain with and without contrast - External Psychiatry referral - Prazosin for the management of nightmares - For Headache Prevention: Botox Injection now and every 3 months - For mild to moderate DINERO Naproxen sodium 550mg twice a day as needed Vistaril 25mg twice a day as needed - For rescue Phenergan 25mg -50mg suppository Follow-up with Dr. Allen in 12 weeks for Botox clinic Alicia Allen MD [facility] Neurology This note was created using [employer] speech recognition software. Please pardon any errors. documented in this encounter Procedure Notes * Alicia Allen MD - 06/01/2015 11:24 AM EDTAssociated Order(s): CHEMODENERVATION, MEDICAL Neurology Procedure note Date: 06/01/2015 Patient: Josiane Pacheco : 1955 Procedure: Botox injections (PREEMPT protocol) Indications: Chronic Migraine without aura Date Procedure MIDAS 08/27/2014 Botox # 1 80, 85/90 DINERO days and 7/10 intensity 06/01/2015 Botox # 1 5, 60/90 Dinero days, 7/10 Intensity Risk and benefits were explained to the patient Written consent was obtained - 06/01/2015 Time out was preformed OnabotulinumtoxinA was reconstituted with 0.9% NaCl to create a dilution of 5 units per 0.1mL. Each injection site was sterilized with 70% isopropyl alcohol. Injections were administered with a 30 gauge, 1/2 needle. Injections administered as follows and performed bilaterally with injections split equally except for procerus: 20 units divided between 4 sites in the frontalis muscle, 10 units divided between 2 sites in the banking consultant muscles, 5 units into 1 site in the procerus muscle, 40 units divided between 8 sites in the temporalis muscles, 30 units divided between 6 sites in the suboccipital region, 20 units divided between 4 sites in the cervical paraspinal musculature, and 30 units divided between 6 sites in the trapezii. Total units used= 155. Total injection sites=31. Patient was injected with 155 units and 45 units were wasted/disgarded The patient tolerated the procedure without any immediate complications. Alicia Allen MD [facility] Neurology Migraine Disability Assessment # of days in [...] social / leisure activities because of DINERO 5 Total 5 MIDAS grade (use total of Q1 to 5) I: 0-5, little to no disability II: 6-10, mild disability III: 11-20, moderate disability IV: 21+, severe disability A. # of days in the last 3 months with a DINERO (count each day if DINERO lasted > 1 day) 60 B. Average DINERO intensity (0-10) 7 documented in this encounter Plan of Treatment Upcoming Encounters Date Type Department Care Team (Late st Contact Info) Description 03/06/2024 1:30 PM EST Office [place] [address] Satya Wills MD [facility] [place] [address] documented as of this encounter Procedures Procedure Name Priority Date/Time Associated Diagnosis Comments CHEMODENERVATION, MEDICAL Routine 06/01/2015 11:29 AM EDT documented in this encounter Results * Chemodenervation, medical (06/01/2015 11:29 AM EDT) Narrative Alicia Allen MD - 06/01/2015 11:29 AM EDT Alicia Allen MD ? 06/01/2015 11:29 AM Neurology Procedure note Date: 06/01/2015 Patient: Josiane Pacheco : ??1955 Procedure: Botox injections (PREEMPT protocol) Indications: Chronic Migraine without aura Date ??Procedure ?? MIDAS 08/27/2014 Botox # 1 ?? 80, 85/90 DINERO days and 7/10 intensity ? 06/01/2015 ??Botox # 1 ??5, 60/90 Dinero days, 7/10 Intensity ?? Risk and benefits were explained to the patient Written consent was obtained - 06/01/2015 Time out was preformed OnabotulinumtoxinA was reconstituted with 0.9% NaCl to create a dilution of 5 units per 0.1mL. Each injection site was sterilized with 70% isopropyl alcohol. Injections were administered with a 30 gauge, 1/2 needle. Injections administered as follows and performed bilaterally with injections split equally except for procerus: 20 units divided between 4 sites in the frontalis muscle, 10 units divided between 2 sites in the banking consultant muscles, 5 units into 1 site in the procerus muscle, 40 units divided between 8 sites in the temporalis muscles, 30 units divided between 6 sites in the suboccipital region, 20 units divided between 4 sites in the cervical paraspinal musculature, and 30 units divided between 6 sites in the trapezii. Total units used= 155. Total injection sites=31. Patient was injected with 155 units and 45 units were wasted/disgarded The patient tolerated the procedure without any immediate complications. Alicia Allen MD [facility] Neurology Migraine Disability Assessment # of days in [...] social / leisure activities because of DINERO 5 Total 5 MIDAS grade (use total of Q1 to 5) I: 0-5, little to no disability II: 6-10, mild disability III: 11-20, moderate disability IV: 21+, severe disability A. # of days in the last 3 months with a DINERO (count each day if DINERO lasted > 1 day) 60 B. Average DINERO intensity (0-10) 7 Alicia Allen MD PROCEDURE/MINOR SURG ICAL ORDERABLES documented in this encounter Visit Diagnoses Diagnosis Chronic migraine [...] 200 Units, Intramuscular, ONCE, 1 dose, On Mon06/01/15 at 1145, For Chronic Migraine - PREEMPT Trial, Routine Given 06/01/2015 11:29 AM EDT 200 Units documented in this encounter Care Teams Financial Reporting Director Relationship Specialty Start Date End Date Husam Rosas MD [address] [place] [address] PCP - General 01/19/10 01/22/17 documented as of this encounter
--- OUTSIDE RECORDS SUMMARY | 2023-12-04 16:32 | XMS_ITS | Encounter Summary ---
Author Organization [facility] Address [facility] [place] [address] Care Team Providers Care Boiler Operator Name Role Phone Husam Rosas MD Primary Care Provider [phone] Reason for Visit * Reason Onset Date Comments Medication Refill 08/25/2015 Encounter Details Date Type Department Care Team (Late st Contact Info) Description 08/25/2015 Telephone [place] [address] Drew Heaton MD [facility] [place] [address] Medication Refill Social History Tobacco Use Types Packs/Day Years [...] Telephone Encounter - Suzie Mars RN - 08/27/2015 10:58 AM EDT TC to Josiane today to let her know of MD appointment with Dr Heaton on 10/16/15 at 1 PM and to also lether know this may need to be changed. She is aware orders have been placed for labs and will have these drawn on 09/01/15 when in for a procedure. We have canceled the 09/04/15 donald't at her request * Telephone Encounter - Suzie Mars RN - 08/25/2015 5:00 PM EDT Josiane would like to cancel September [address] Heaton and reschedule for October 15, the sameday she is having a procedure. Dr Heaton will put her in his schedule for 1 PM on the . Josiane will be here on August 31 for another service and will have labs (ordered by Dr Heaton) on that day documented in this encounter Plan of Treatment Upcoming Encounters Date Type Department Care Team (Late st Contact Info) Description 03/06/2024 1:30 PM EST [place] [phone] Satya Wills MD [facility] [place] [address] documented as of this encounter Results * (ABNORMAL) CD4 (12/14/2015 12:18 PM EDT) CD3% 90(H) 55 - 82 % [facility] CD3 ABS 1,435 731 - 2,438 /[facility] CD 4% 10(L) 35 - 61 % [facility] CD 4ABS 152(L) 503 - 1,736 /[facility] Comment: This assay is a dual [...] White Blood Cell 3.9(L) 4.0 - 9.5 x10(3)/[facility] Lymph % 41.1 % [facility] Lymphocytes Abs 1.6 0.9 - 3.2 x10(3)/[facility] Blood specimen (specimen) 12/14/2015 12:18 PM EDT 12/14/2015 12:32 PM EDT Narrative Resulting Agency Comment Spec In Lab Drew Heaton MD HEMATOLOGY ORDERABLE S [facility] [place] [address] * (ABNORMAL) Comprehensive metabolic panel (non-fasting) (12/14/2015 12:18 PM EDT) Glucose 97 65 - 199 mg/dL [facility] Comment:Diabetes: >=200 mg/d L plus symptoms Blood Urea Nitrogen 7(L) 8 - 18 mg/dL [facility] Creatinine 0.81 0.70 - 1.20 mg/dL [facility] Comment: Please note that the pediatric reference intervals supplied above were not validated at [facility]. Results from pediatric patients should be interpreted in conjunction to the patient's age, height and muscle mass. Sodium 135 135 - 145 mmol/L [facility] Potassium 3.8 3.5 - 5.0 mmol/L [facility] Comment: Please note: ??Patients with WBC >100,000 may have falsely elevated Potassium levels. ??For accurate Potassium quantification in these patients send serum separator tube (gold top) for subsequent determinations. ??Contact the Clinical Chemistry Laboratory if there are any questions. Chloride 98 98 - 107 mmol/L [facility] Carbon Dioxide 21(L) 22 - 31 mmol/L [facility] Anion Gap 16(H) 5 - 15 mmol/L [facility] Calcium 10.5 8.5 - 10.5 mg/dL [facility] Protein, Total 8.2(H) 6.1 - 8.0 gm/dL [facility] Albumin 4.5 3.2 - 5.2 gm/dL [facility] Aspartate Aminotransferase 42(H) 0 - 30 unit/L [facility] Alanine Aminotransferase 31(H) 0 - 30 unit/L [facility] Alkaline Phosphatase 55 40 - 104 unit/L [facility] Bilirubin, Total 0.6 0.2 - 1.3 mg/dL [facility] Bilirubin, Direct 0.2 0.0 - 0.3 mg/dL [facility] Est Glomerular Filtration Rate >60 >=60 [facility] Comment: This estimated GFR (eGFR) [...] the following links into your internet browser. [email or web address] Blood specimen (specimen) 12/14/2015 12:18 PM EDT 12/14/2015 12:32 PM EDT Narrative Resulting Agency Comment Spec In Lab Drew Heaton MD CHEMISTRY ORDERABLES Performing Organization Address City/State/[facility] Co de Phone Number [facility] [place] [address] documented in this encounter Visit Diagnoses Diagnosis HIV disease Human immunodeficiency virus [HIV] disease documented in this encounter Care Teams Boiler Operator Relationship Specialty Start Date End Date Husam Rosas MD [address] [place] [address] PCP - General 01/19/10 01/22/17 documented as of this encounter
--- OUTSIDE RECORDS SUMMARY | 2023-12-04 16:32 | XMS_ITS | Encounter Summary ---
Author Organization [facility] [place] [address] Care Team Providers Care Train Operations Manager Name Role Phone Husam Rosas MD Primary Care Provider +1 -[phone] Encounter Details Date Type Department Care Team (Late Contact Info) Description 04/01/2015 Telephone Dermatology at [facility] [address] [place] [address] Idris Guevara MD [address] [facility] [place] [address] Social History Tobacco Use Types Packs/Day Years [...] encounter Miscellaneous Notes * Telephone Encounter - Josie Kline LPN - 04/01/2015 4:02 PM EST error documented in this encounter Plan of Treatment Upcoming Encounters Date Type Department Care Team (Late Contact Info) Description 03/06/2024 1:30 PM EST [place] [address] Satya Wills MD [facility] [place] [address] documented as of this encounter Visit Diagnoses Not on filedocumented in this encounter Care Teams Train Operations Manager Relationship Specialty Start Date End Date Husam Rosas MD [address] [place] [address] PCP - General 01/19/10 01/22/17 documented as of this encounter
--- OUTSIDE RECORDS SUMMARY | 2023-12-04 16:32 | XMS_ITS | Encounter Summary ---
Author Organization [facility] Address [facility] [place] [address] Care Team Providers Care Education Instructor Name Role Phone Husam Rosas MD Primary Care Provider +1 -[phone] Encounter Details Date Type Department Care Team (Late st Contact Info) Description 06/01/2015 [place] [address] April Lambert Social History Tobacco Use Types Packs/Day Years [...] 1:30 PM EST [place] [address] Satya Wills MD [facility] [place] [address] documented as of this encounter Visit Diagnoses Not on filedocumented in this encounter Care Teams Education Instructor Relationship Specialty Start Date End Date Husam Rosas MD [address] [place] [address] PCP - General 01/19/10 01/22/17 documented as of this encounter
--- OUTSIDE RECORDS SUMMARY | 2023-12-04 16:32 | XMS_ITS | Encounter Summary ---
Author Organization [facility] Address [facility] [place] [address] Care Team Providers Care Senior Production Planner Name Role Phone Husam Rosas MD Primary Care Provider +1 [phone] Reason for Visit * Reason Comments Medication Refill Encounter Details Date Type Department Care Team (Late Contact Info) Description 08/15/2015 [place] [address] Satya Wills MD [facility] [place] [place] [address] Social History Tobacco Use Types Packs/Day Years [...] 1:30 PM EST Office [place] [address] Satya Wills MD [facility] [place] [place] [address] documented as of this encounter Visit Diagnoses Not on filedocumented in this encounter Care Teams Senior Production Planner Relationship Specialty Start Date End Date Husam Rosas MD [address] [place] [address] PCP - General 01/19/10 01/22/17 documented as of this encounter
--- OUTSIDE RECORDS SUMMARY | 2023-12-04 16:32 | XMS_ITS | Encounter Summary ---
Author Organization [facility] Address [facility] [place] [address] Care Team Providers Care Merchandising Execution Manager Name Role Phone Husam Rosas MD Primary Care Provider +1 -[phone] Reason for Visit * Reason Comments Medication Refill Encounter Details Date Type Department Care Team (Late Contact Info) Description 10/10/2015 Refill [place] [address] Drew Heaton MD [facility] [place] [address] Human immunodeficiency virus (HIV) disease Social History [...] 1:30 PM EST [place] [address] Satya Wills MD [facility] [place] [address] documented as of this encounter Visit Diagnoses Diagnosis Human immunodeficiency virus (HIV) disease Human immunodeficiency virus [HIV] disease documented in this encounter Care Teams Merchandising Execution Manager Relationship Specialty Start Date End Date Husam Rosas MD [address] [place] [address] PCP - General 01/19/10 01/22/17 documented as of this encounter
--- OUTSIDE RECORDS SUMMARY | 2023-12-04 16:32 | XMS_ITS | Encounter Summary ---
Author Organization [facility] Address [facility] [place] [address] Care Team Providers Care Sales Account Manager Name Role Phone Husam Rosas MD Primary Care Provider +1 -[phone] Reason for Visit * Reason Comments Medication Refill Encounter Details Date Type Department Care Team ([facility] Contact Info) Description 11/09/2015 Refill Infectious Disease at [facility] [place] [address] Drew Heaton MD [facility] DR [place] [address] Human immunodeficiency virus (HIV) disease Social History [...] Telephone Encounter - Fely Wong RN - 11/09/2015 10:33 AM EDT PHone call to shayla She needs refill of atazanavir She agrees to getting labs done in [facility] tomorrow. Will schedule her with Dr. Heaton for 12/13 at 11:00 She understands that we won't be able to renew meds for more than this month if she doesn't get labs done. Has had many family stressors. documented in this encounter Plan of Treatment Upcoming Encounters Date Type Department Care Team (Late st Contact Info) Description 03/06/2024 1:30 PM EST [place] [address] Satya Wills MD [facility] [place] [address] documented as of this encounter Visit Diagnoses Diagnosis Human immunodeficiency virus (HIV) disease Human immunodeficiency virus [HIV] disease documented in this encounter Care Teams Sales Account Manager Relationship Specialty Start Date End Date Husam Rosas MD [address] [place] [address] PCP - General 01/19/10 01/22/17 documented as of this encounter
--- OUTSIDE RECORDS SUMMARY | 2023-12-04 16:32 | XMS_ITS | Encounter Summary ---
Author Organization [facility] Address [facility] [place] [address] Care Team Providers Care Heel Varnisher Name Role Phone Husam Rosas MD Primary Care Provider +1 -[phone] Reason for Visit * Reason Comments Botox Injection Encounter Details Date Type Department Care Team (Late st Contact Info) Description 09/11/2015 1:30 PM EDT Office [place] [address] Alicia Allen MD [facility] [place] [address] Chronic migraine without aura with status migrainosus, [...] Sign Reading Time Taken Comments Blood Pressure 139/88 09/11/2015 1:18 PM EDT Pulse 88 09/11/2015 1:18 PM EDT Temperature - - Respiratory Rate - - Oxygen Saturation - - Inhaled Oxygen Concentration - - Weight 88.5 kg (195 lb) 09/11/2015 1:18 PM EDT Height 168.9 cm (5' 6.5) 09/11/2015 1:18 PM EDT Body Mass Index 31 09/11/2015 1:18 PM EDT documented in this encounter Procedure Notes * Alicia Allen MD - 09/11/2015 1:30 PM EDTAssociated Order(s): CHEMODENERVATION, MEDICAL Neurology Procedure note Date: 09/11/2015 Patient: Josiane Pacheco : 1955 Procedure: Botox injections (PREEMPT protocol) Indications: Chronic Migraine without aura Date Procedure MIDAS 08/27/2014 Botox # 1 80, 85/90 DINERO days and 7/10 intensity 06/01/2015 Botox # 1 5, 60/90 Dinero days, 7/10 Intensity 09/11/2015 Botox # 2 75, 40/90 DINERO days, 9/10 DINERO intensity Patient reports that the Botox is working - she feels that the headaches are less frequent Still has really bad headaches that she is laying down with She reports that she can not take the Phenergan suppositories Will have her call when she needs rescue and we can try to arrange with PCP for Toradol and or Phenergan injections Risk and benefits were explained to the [...] units divided between 2 sites in the software test automation engineer muscles, 5 units into 1 site in [...] without any immediate complications. Alicia Allen MD [facility] [place] Migraine Disability Assessment # of days in the past 3 months 1. Missed work / school because of DINERO 0 2. Productivity at work / school reduced by > half because of DINERO (do not count days from Q.1) 0 3. Did not do housework because of DINERO 30 4. Productivity in household work reduced by > half because of DINERO (do not count days from Q.3) 30 5. Missed family / social / leisure activities because of DINERO 15 Total 75 MIDAS grade (use total of Q1 to 5) I: 0-5, little to no disability II: 6-10, mild disability III: 11-20, moderate disability IV: 21+, severe disability A. # of days in the last 3 months with a DINERO (count each day if DINERO lasted > 1 day) 40 B. Average DINERO intensity (0-10) 9 documented in this encounter Plan of Treatment Upcoming Encounters Date Type Department Care Team (Late st Contact Info) Description 03/06/2024 1:30 PM EST Office [place] [address] Satya Wills MD [facility] [place] [address] documented as of this encounter Procedures Procedure Name Priority Date/Time Associated Diagnosis Comments CHEMODENERVATION, MEDICAL Routine 09/11/2015 1:49 PM EDT documented in this encounter Results * Chemodenervation, medical (09/11/2015 1:49 PM EDT) Narrative Alicia Allen MD - 09/11/2015 1:49 PM EDT Alicia Allen MD ? 09/11/2015 ??1:49 PM Neurology Procedure note Date: 09/11/2015 Patient: Josiane Pacheco : ??1955 Procedure: Botox injections (PREEMPT protocol) Indications: Chronic Migraine without aura Date ??Procedure ?? MIDAS 08/27/2014 Botox # 1 ?? 80, 85/90 DINERO days and 7/10 intensity ? 06/01/2015 ??Botox # 1 ??5, 60/90 Dinero days, 7/10 Intensity ?? 09/11/2015 ??Botox # 2 ??75, 40/90 DINERO days, 9/10 DINERO intensity ?? Patient reports that the Botox is working - she feels that the headaches are less frequent Still has really bad headaches that she is laying down with She reports that she can not take the Phenergan suppositories Will have her call when she needs rescue and we can try to arrange with PCP for Toradol and or Phenergan injections Risk and benefits were explained to the [...] units divided between 2 sites in the software test automation engineer muscles, 5 units into 1 site in [...] without any immediate complications. Alicia Allen MD [facility] [place] Neurology Migraine Disability Assessment # of days in the past 3 months 1. Missed work / school because of DINERO 0 2. Productivity at work / school reduced by > half because of DINERO (do not count days from Q.1) 0 3. Did not do housework because of DINERO 30 4. Productivity in household work reduced by > half because of DINERO (do not count days from Q.3) 30 5. Missed family / social / leisure activities because of DINERO 15 Total 75 MIDAS grade (use total of Q1 to 5) I: 0-5, little to no disability II: 6-10, mild disability III: 11-20, moderate disability IV: 21+, severe disability A. # of days in the last 3 months with a DINERO (count each day if DINERO lasted > 1 day) 40 B. Average DINERO intensity (0-10) 9 Alicia Allen MD PROCEDURE/MINOR SURG ICAL ORDERABLES [...] 200 Units, Intramuscular, ONCE, 1 dose, On Mon09/11/15 at 1400, Routine Given 09/11/2015 1:50 PM EDT 200 Units documented in this encounter Care Teams Heel Varnisher Relationship Specialty Start Date End Date Husam Rosas MD [address] [place] [address] PCP - General 01/19/10 01/22/17 documented as of this encounter
--- OUTSIDE RECORDS SUMMARY | 2023-12-04 16:32 | XMS_ITS | Encounter Summary ---
Author [facility] Address [facility] [place] [address] Care Team Providers Care Torch Solderer Name Role Phone Husam Rosas MD Primary Care Provider +1 -[phone] Encounter Details Date Type Department Care Team (Late st Contact Info) Description 07/31/2015 3:07 PM EDT Anesthesia [place] [address] Charles Lawson MD [facility] [place] [address] Heath Ladd CRNA [facility] [place] [address] Anesthesia Record Procedure Summary Procedure Name Responsible Anesthesiologist Anesthesia Start Time Anesthesia Stop Time ESOPHAGOSCOPY, TRANSORAL; WITH BALLOON DILATION <30MM (WRVU 3.07) (Trunk) Charles Lawson MD 07/31/15 1507 07/31/15 1532 Events Date Time Event Comment 07/31/2015 1407 1506 AN Verify 1507 Start 1507 An Start Data 1511 An Induction 1511 Anesthesia Ready 1530 an stop data 1532 an stop data 1532 Recovery or ICU Handoff Lida ent care was transferred to the destination unit staff after review of the patient's medical history, current anesthetic/surgical status and plan, according to the Provider Handoff Checklist. 1532 Stop Meds Name Total IV Lidocaine 100 mg Propofol 120 mg * Agents Name O2 * Blood No blood administrations on file. Lines, Drains, and Airways Type Details Placement Removal (RETIRED) Peripheral IV Line - Single Lumen 07/31/15; 1304; median vein right (underside of arm); atwz-gee-wzqjpk catheter system; 22 gauge, 1 in length; intradermal injection; 07/31/15; 1622 07/31/15 1304 by Brittanie Juarez RN 07/31/15 1622 by Rafael Leon RN documented in this [...] OR Notes * Anesthesia Postprocedure Evaluation - Charles Lawson MD - 07/31/2015 5:17 PM EDT [facility] [place] Department of Anesthesiology Post-procedure Note Patient: Josiane Pacheco Procedure Summary Date Anesthesia Start Anesthesia Stop Room / Location 07/31/15 1507 1532 [facility] 6 / [facility] Procedure Diagnosis Surgeon Responsible Provider ESOPHAGOSCOPY, TRANSORAL; WITH BALLOON DILATION <30MM (N/A Trunk) (Repeat EGD 3- 4 weeks from 06/23/15 for retreatment with balloon dilation and with Anesthesia to allow for dilation and biopsies.-per Onel; CONSULT) Ramesh Johnson MD Nguyen, Tung T, MD All Anesthesia Providers: Anesthesiologist: Charles Lawson MD INTERNAL COMBUSTION ENGINE ASSEMBLER: Heath Ladd CRNA Last (1hr) Vitals: BP Temp Pulse Resp SpO2 Patient Location: [facility] Level of Consciousness: Awake and Alert Pain Management: Satisfactory Analgesia PONV: None Cardiovascular Status: At Baseline Respiratory Status: At Baseline Postoperative Fluid Status: Intravascular EUvolemia Possible Anesthetic Complications: NONE apparent at time of evaluation Final Primary Anesthesia Type: MAC (The anesthetic type performed was the same as planned.) Comments: * Anesthesia Preprocedure Evaluation - Charles Lawson MD - 07/31/2015 12:56 PM EDT Images from the original note were not included. Pre-Anesthesia Evaluation for: Josiane Pacheco a 59 y.o. female. Procedure(s): EGD, UPPER GI ENDOSCOPY [...] ENDOSCOPY performed by Dejan Sykes MD at [facility] History Substance Use Topics ??? Smoking status: Former Smoker Packs/day: 0.00 Years: 35.00 ??? Smokeless tobacco: Never Used ??? Alcohol use: Yes Comment: occasional History Drug Use No Allergies Allergen Reactions ??? Lamictal [Lamotrigine] Per patient very dizzy, double vision, and hard to keep walking. ??? Topiramate Itching Medications: MAR and/or home medications have been reviewed. Physical Exam: Vitals: 07/31/15 1253 BP: 123/86 Pulse: 76 Resp: 18 There is no height or weight on file to calculate BMI. Airway Assessment: Mallampati: II TM distance: >3 FB Neck ROM: full Cardiovascular Assessment: Rhythm: regular Rate: normal Pulmonary Assessment: breath sounds clear to auscultation Dental Assessment: Misc Assessment: Patient is wearing No contact(s). IV access: Peripheral line Anesthesia Plan: ASA 3 MAC, with a(n) intravenous induction Attending NOTE Brief HPI: 59 y.o. with gerd/dysphagia to OR for egd Patient Active Problem List: Epilepsy : last seizure 10 days ago, gets seizures about twice/month, no recent medication changes HIV disease Dyslipidemia Obesity Depression GERD / esophagitis METS:>4 Cardiac Symptoms: denies LABS: Lab Results Component Value Date HGB 15.5 02/10/2015 PLATELET 116 (L) 02/10/2015 NA 142 02/10/2015 NA 142 02/10/2015 K 4.0 02/10/2015 K 4.0 02/10/2015 CREATININE 0.73 02/10/2015 CREATININE 0.73 02/10/2015 Type and Screen: No results found for: ABORH Past anesthetic problems: denies Last anesthetic record (on eDH): none NPO status: Reviewed and appropriate Anesthetic Plan: MAC Monitoring: Standard ASA monitors Region - Other Informed Consent: Anesthetic plan and risks discussed with patient. PAT Staff Note documented in this encounter Plan of Treatment Upcoming Encounters Date Type Department Care Team (Late st Contact Info) Description 03/06/2024 1:30 PM EST [place] [address] Satya Wills MD [facility] [place] [address] documented as of this encounter Visit Diagnoses Not on filedocumented in this encounter Administered Medications Inactive Administered Medications - up to 3 most recent administrations Medication Order MAR Action Action Date Dose Rate Site lidocaine (PF) (XYLOCAINE) 100 mg/5 mL (2 %) injection PRN, Starting on Mon07/31/15 at 1511, Until Mon07/31/15 at 1637, Anesthesia Intra-op, Routine Given 07/31/2015 3:11 PM EDT 100 mg propofol (DIPRIVAN) 10 mg/mL bolus injection (Anesthesia) PRN, Starting on Mon07/31/15 at 1511, Until Mon07/31/15 at 1637, Anesthesia Intra-op Given 07/31/2015 3:13 PM EDT 40 mg Given 07/31/2015 3:11 PM EDT 80 mg documented in this encounter Care Teams Torch Solderer Relationship Specialty Start Date End Date Husam Rosas MD [address] [place] [address] PCP - General 01/19/10 01/22/17 documented as of this encounter
--- OUTSIDE RECORDS SUMMARY | 2023-12-04 16:32 | XMS_ITS | Encounter Summary ---
Author Organization [facility] [place] [address] Care Team Providers Care District Sales Coordinator Name Role Phone Husam Rosas MD Primary Care Provider +1 -[phone] Encounter Details Date Type Department Care Team (Late Contact Info) Description 07/07/2015 Telephone [place] [address] Suzie Mars RN Social History Tobacco Use [...] Encounter - Suzie Mars RN - 07/07/2015 5:00 PM EDT Encounter opened in error documented in this encounter Plan of Treatment Upcoming Encounters Date Type Department Care Team (Late st Contact Info) Description 03/06/2024 1:30 PM EST Office [place] [address] Satya Wills MD [facility] [place] [address] documented as of this encounter Visit Diagnoses Not on filedocumented in this encounter Care Teams District Sales Coordinator Relationship Specialty Start Date End Date Husam Rosas MD [address] [place] [address] PCP - General 01/19/10 01/22/17 documented as of this encounter
--- OUTSIDE RECORDS SUMMARY | 2023-12-04 16:32 | XMS_ITS | Encounter Summary ---
Author Organization [facility] Address [facility] [place] [address] Care Team Providers Care Leather Carver Name Role Phone Husam Rosas MD Primary Care Provider +1 -[phone] Reason for Visit * Reason Comments Medication Refill Encounter Details Date Type Department Care Team (Late Contact Info) Description 08/08/2015 [place] [address] Satya Wills MD [facility] [place] [address] Social History Tobacco Use Types Packs/Day Years [...] Office [place] [address] Satya Wills MD [facility] [place] [address] documented as of this encounter Visit Diagnoses Not on filedocumented in this encounter Care Teams Leather Carver Relationship Specialty Start Date End Date Husam Rosas MD [address] [place] [address] PCP - General 01/19/10 01/22/17 documented as of this encounter
--- OUTSIDE RECORDS SUMMARY | 2023-12-04 16:32 | XMS_ITS | Encounter Summary ---
Author Organization [facility] Address [facility] [place] [address] Care Team Providers Care Fashion Design Professor Name Role Phone Husam Rosas MD Primary Care Provider +1 -[phone] Reason for Visit * Reason Comments Medication Refill Encounter Details Date Type Department Care Team ([facility] Contact Info) Description 04/13/2015 [place] [address] Satya Wills MD [facility] [place] [address] Social History Tobacco Use Types Packs/Day Years [...] Upcoming Encounters Date Type Department Care Team ([facility] Contact Info) Description 03/06/2024 1:30 PM EST Office [place] [address] Satya Wills MD [facility] [place] [address] documented as of this encounter Visit Diagnoses Not on filedocumented in this encounter Care Teams Fashion Design Professor Relationship Specialty Start Date End Date Husam Rosas MD [address] [place] [address] PCP - General 01/19/10 01/22/17 documented as of this encounter
--- OUTSIDE RECORDS SUMMARY | 2023-12-04 16:32 | XMS_ITS | Encounter Summary ---
Author Organization [facility] Address [facility] [place] [address] Care Team Providers Care Investigative Writer Name Role Phone Husam Rosas MD Primary Care Provider +1 [phone] Encounter Details Date Type Department Care Team (Latest Contact Info) Description 07/31/2015 12:29 PM EDT - 07/31/2015 4:46 PM EDT Hospital En[place] [phone] Ramesh Johnson MD [facility] [place] [address] Discharge Disposition: Home Social History Tobacco Use [...] Everywhere. * EGD (UPPER ENDOSCOPY) : POST-OP (MONTENEGRIN) documented in this encounter Medications at Time [...] 1:30 PM EST Office [place] [address] Satya Wills MD [facility] [place] [address] documented as of this encounter Procedures Procedure [...] Report (07/31/2015 3:44 PM EDT) Final Diagnosis [id number] ? Location: 4T; 06; A The signing [...] Sections/Processing: (T1) ??pps 08/04/2015 3:13 PM EDT [facility] GI Biopsy 07/31/2015 3:44 PM EDT 07/31/2015 3:44 PM EDT Ramesh Johnson MD PATHOLOGY/CYTOLOGY O NANCY Performing Organization Address [facility] Co de Phone Number [facility] [place] [address] * Specimen to Pathology (surgical or derm) (07/31/2015 3:44 PM EDT) AP Specimen 07/31/2015 3:44 PM EDT 07/31/2015 3:44 PM EDT Narrative [facility] - 07/31/2015 3:44 PM EDT Specimen requisition ordered. ??Separate Pathology report to follow Ramesh Johnson MD PATHOLOGY/CYTOLOGY O NANCY Performing Organization Address [facility] Co de Phone Number [place] [address] * UPPER GI ENDOSCOPY (07/31/2015 3:02 PM EDT) UPPER GI ENDOSCOPY [facility] Endoscopy Patient Name: Annie Pacheco ? Procedure Date: 07/31/2015 3:02 PM ? Date of : 1955 ? Age: 59 ? Order #: [id number] ? Procedure: ? Upper GI endoscopy Indications: [...] EDT Husam Rosas MD GENERAL SURGICAL ORDERABLES Performing Organization Address City/State/[facility] Co de Phone Number [employer] documented in this encounter Visit Diagnoses Not on filedocumented in this encounter Administered Medications Inactive Administered Medications - up to 3 most recent administrations Medication Order MAR Action Action Date Dose Rate Site ondansetron (ZOFRAN) injection 4 mg 4 mg, Intravenous, EVERY 8 HOURS PRN, Starting on Mon07/31/15 at 1549, Until Mon07/31/15 at 1622, Nausea, Endoscopy (Recovery-Hospital Unit) Given 07/31/2015 3:50 PM EDT 4 mg documented in this encounter Active and Recently Administered Medications Times are shown in EDT. PRN Medication Order 07/29/2015 07/30/2015 07/31/2015 ondansetron (ZOFRAN) injection 4 mg (CANCELED) 4 mg, Intravenous, EVERY 8 HOURS PRN, Starting on Mon07/31/15 at 1549, Until 07/31/15 at 1622, Nausea, Endoscopy (Recovery-Hospital Unit) 1550 (Given - Provid er: Rafael Leon RN) documented in this encounter Care Teams Investigative Writer Relationship Specialty Start Date End Date Husam Rosas MD [address] [place] [address] PCP - General 01/19/10 01/22/17 documented as of this encounter
--- OUTSIDE RECORDS SUMMARY | 2023-12-04 16:32 | XMS_ITS | Encounter Summary ---
Author Organization [facility] Address [facility] [place] [address] Care Team Providers Care Quill Fixer Name Role Phone Husam Rosas MD Primary Care Provider +1 [phone] Reason for Visit * Reason Comments Medication Refill Encounter Details Date Type Department Care Team ([facility] Contact Info) Description 12/09/2015 Ref[place] [phone] Drew Heaton MD [facility] [place] [address] Human immunodeficiency virus (HIV) disease Social History [...] Upcoming Encounters Date Type Department Care Team ([facility] Contact Info) Description 03/06/2024 1:30 PM EST [place] [address] Satya Wills MD [facility] [place] [address] documented as of this encounter Visit Diagnoses Diagnosis Human immunodeficiency virus (HIV) disease Human immunodeficiency virus [HIV] disease documented in this encounter Care Teams Quill Fixer Relationship Specialty Start Date End Date Husam Rosas MD [address] [address] PCP - General 01/19/10 01/22/17 documented as of this encounter
--- OUTSIDE RECORDS SUMMARY | 2023-12-04 16:32 | XMS_ITS | Encounter Summary ---
Author Organization [facility] Address [facility] [place] [address] Care Team Providers Care Pipe Straightener Name Role Phone Husam Rosas MD Primary Care Provider [phone] [phone] Encounter Details Date Type Department Care Team (Late st Contact Info) Description 06/23/2015 8:55 AM EDT - 06/23/2015 1:37 PM EDT Hospital Encounter Gastroenterology at [facility] [place] [address] Dejan Sykes MD [facility] [place] [address] Discharge Disposition: Home Social History Tobacco Use [...] Sign Reading Time Taken Comments Blood Pressure 132/71 06/23/2015 12:09 PM EDT Pulse 76 06/23/2015 12:09 PM EDT Temperature - - Respiratory Rate 16 06/23/2015 12:09 PM EDT Oxygen Saturation 94% 06/23/2015 12:09 PM EDT Inhaled Oxygen Concentration - - Weight - - Height - - Body Mass Index - - documented in this encounter Discharge Instructions * Discharge Instructions* Kumar Skinner, MEIR - 06/23/2015 12:10 PM EDT You may have received medication [...] occurs please contact your M.D. Please call [phone] before 5 pm with problems, questions or concerns. After 5pm call [phone] and ask to speak with the human resources operations manager education department chair. Discharge instructions reviewed with patient who expresses understanding. * Attachments The following attachments cannot be sent through Care Everywhere. * EGD (UPPER ENDOSCOPY) : POST-OP (GREEK) documented in this encounter Medications at Time [...] mouth daily. 30 tablet 5 04/13/2015 10/10/2015 atazanavir (REYATAZ) 300 mg CapsuleIndications:Human immunodeficiency virus (HIV) disease Take 1 capsule by mouth daily. 30 capsule 5 04/13/2015 07/07/2015 triamcinolone (KENALOG) 0.1 % OintmentIndications:Derm atitis Apply [...] times daily. 30 g 3 02/10/2015 01/14/2020 RITONAVIR 100 mg TabletIndications:HIV disease TAKE 1 TABLET BY MOUTH ONCE A DAY 30 tablet 5 01/13/2015 07/12/2015 VIREAD 300 mg TabletIndications:HIV disease take 1 tablet by mouth once daily 30 tablet 5 01/13/2015 07/12/2015 naproxen sodium (ANAPROX) 550 mg Tablet Take [...] as of this encounter H&P Notes * Dejan Sykes MD - 06/23/2015 11:04 AM EDT Patient Name: Josiane Pacheco Patient Age: 59 y.o. Birthdate: 1955 Admit date: 06/23/2015 Attending Physician: Dejan Sykes MD Gastroenterology & Hepatology Pre-Procedure History and Physical Planned Procedure: EGD: Indication: dysphagia, regurgitation Patient Active Problem List Diagnosis Code ??? 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 HIV disease B20 ??? Dyslipidemia E78.5 ??? Migraine G43.909 ??? Obesity E66.9 ??? Depression F32.9 ??? Fissure in ano K60.2 ??? Hemorrhoids K64.9 Medications: Reviewed in EDH Allergies Allergen Reactions ??? Lamictal [Lamotrigine] Per patient very dizzy, double vision, and hard to keep walking. ??? Topiramate Itching Social History/Family History: Reviewed in EDH. No changes Exam: Filed Vitals: 06/23/15 1008 BP: 152/87 Pulse: 78 GEN: NAD, AAOX3 HEENT: NC/AT dryMM, anicteric Chest: CTAB Heart: RRR, nl s1, s2 Abdomen: normal bowel sounds, soft, non tender Assessment and Plan: Proceed with EGD: ASA Grade: ASA 2 - Patient with mild systemic disease with no functional limitations Mallampati: I (soft palate, uvula, fauces, tonsillar pillars visible) Sedation plan: Moderate Conscious sedation Risks and benefits of the procedure were discussed with the patient. Consent has been signed. documented in this encounter Plan of Treatment Upcoming Encounters Date Type Department Care Team (Late st Contact Info) Description 03/06/2024 1:30 PM EST Office [place] [address] Satya Wills MD [facility] [place] [place] [address] documented as of this encounter Procedures Procedure Name Priority Date/Time Associated Diagnosis Comments EGD, UPPER GI ENDOSCOPY (WRVU 2.09) 06/23/2015 11:21 AM EDT dysphagia UPPER GI ENDOSCOPY Routine 06/23/2015 10 :45 AM EDT documented in this encounter Results * UPPER GI ENDOSCOPY (06/23/2015 10:45 AM EDT) UPPER GI ENDOSCOPY [facility] Endoscopy Patient Name: Josiane Pacheco ? Procedure Date: 06/23/2015 10:45 AM ? Date of : 1955 ? Age: 59 ? Order #: [id number] ? Procedure: ? Upper GI endoscopy Indications: ? Dysphagia, Suspected esophageal reflux Providers: ? Kristine Garrison ? MEIR Machado, Tarun Lunsford, ? Subgrade Roller Operator, Kailyn Chatman Referring MD: ?Husam Rosas MD Medicines: ? Midazolam 6 mg IV, Fentanyl 250 ? micrograms IV Complications: ? No immediate complications. Procedure: ? [...] proposed procedure were verified by ? the physician, the nurse and the ? psychiatric technician in the pre-procedure area ? in the procedure room. Mental Status ? Examination: normal. Airway ? Examination: normal oropharyngeal ? airway and neck mobility. Respiratory ? Examination: clear to auscultation. ? CV Examination: normal. Prophylactic ? Antibiotics: The patient does not ? require prophylactic antibiotics. ? Prior Anticoagulants: The patient has ? taken no previous anticoagulant or ? antiplatelet agents. ASA Grade ? Assessment: II - A patient with mild ? systemic disease. After reviewing the ? risks and benefits, the patient was ? deemed in satisfactory condition to ? undergo the procedure. The anesthesia ? plan was to use moderate sedation / ? analgesia (conscious sedation). ? Immediately prior to administration ? of [...] well. The upper GI ? endoscopy was performed with moderate ? difficulty due to ineffective ? sedation. Successful completion of ? the procedure was aided by increasing ? the dose of sedation medication. The ? patient tolerated the procedure. ? Findings: ? LA Grade D (one or more mucosal breaks involving at ? least 75% of esophageal circumference) esophagitis ? with no bleeding was found 34 to 39 cm from the ? incisors. ? A benign-appearing, intrinsic moderate ? (circumferential scarring or stenosis; an endoscope ? may pass) stenosis measuring 3 cm (in length) x 8 mm ? (inner diameter) was found 36 to 39 cm from the ? incisors and was traversed with the endoscope but ? required some pressure to pass the endoscope. This ? caused a partial dilation at the GE junction with two ? superficial mucosal rents from passage of the ? endoscope alone. No further dilation with a balloon ? was attempted. ? The entire examined stomach was normal. ? The examined duodenum was normal. ? Impression: ?- LA Grade D esophagitis. This was ? biopsied as the patient was not ? adequately sedated and there was ? already dilation with mucosal rents ? at the GE junction. ? - Benign-appearing esophageal ? stricture. Will need biopsies at ? subsequent endoscopy. ? - Normal stomach. ? - Normal examined duodenum. ? - No specimens collected. Recommendation: ?- Follow an antireflux regimen. This ? includes: ? - Do not lie down for at least 3 to 4 ? hours after meals. ? - Raise the head of the bed 4 to 6 ? inches. ? - Decrease excess weight. ? - Avoid citrus juices and other ? acidic foods, alcohol, chocolate, ? mints, coffee and other caffeinated ? beverages, carbonated beverages, ? fatty and fried foods. ? - Avoid tight-fitting clothing. ? - Avoid cigarettes and other tobacco ? products. ? - Use a proton pump inhibitor (such ? as Prilosec/Nexium) PO BID (oral acid ? keith before breakfast and dinner). ? - Repeat the upper endoscopy in 3-4 ? weeks for retreatment (EGD with ? balloon dilation) with Monitored ? Anesthesia Care for adequate sedation ? to allow for dilation and biopsies ? given ineffective moderate conscious ? sedation . ? - Soft diet, liquids, chew food very ? well. ? Attending Participation: ? I personally performed the entire procedure. ? _ Dejan Onel, 06/23/2015 12:54 PM Number of Addenda: 0 Note Initiated On: 06/23/2015 10:45 AM [place]ATION 06/23/2015 10:4 5 AM EDT Husam Rosas MD GENERAL SURGICAL ORDERABLES [employer] documented in this encounter Visit Diagnoses Not on filedocumented in this encounter Administered Medications Inactive Administered Medications - up to 3 most recent administrations Medication Order MAR Action Action Date Dose Rate Site lactated ringers infusion 100 mL/hr, Intravenous, CONTINUOUS, Starting on Mon06/23/15 at 1115, Until Mon06/23/15 at 1303, Endoscopy (Day of Procedure) New Bag 06/23/2015 11:15 AM EDT 100 mL/hr 100 mL/hr documented in this encounter Active and Recently Administered Medications Times are shown in EDT. Continuous Medication Order 06/21/2015 06/22/2015 06/23/2015 lactated ringers infusion (CANCELED) 100 mL/hr, Intravenous, CONTINUOUS, Starting on e 06/23/15 at 1115, Until 06/23/15 at 1303, Endoscopy (Day of Procedure) 1115 (New Bag - Prov ider: Linda Pantoja RN) PRN Medication Order 06/21/2015 06/22/2015 06/23/2015 fentaNYL 50 mcg/mL multi-dose injection (CANCELED) ONCE PRN, Starting on Mon06/23/15 at 1131, Until Mon06/23/15 at 1303, Intra-Operative (Intra-Procedure), Routine 1131 (Given - Provid er: Kristine Machado RN)1134 (Given - Provider: Kristine Machado RN)1136 (Given - Provider: Kristine Machado RN)1139 (Given - Provider: Kristine Machado RN)1142 (Given - Provider: Kristine Machado RN)1145 (Given - Provider: Kristine Machado RN) midazolam (PF) (VERSED) 1 mg/mL multi-dose injection (CANCELED) ONCE PRN, Starting on Mon06/23/15 at 1131, Until Mon06/23/15 at 1303, Intra-Operative (Intra-Procedure), Routine 1131 (Given - Provid er: Kristine Machado RN)1134 (Given - Provider: Kristine Machado RN)1136 (Given - Provider: Kristine Machado RN)1139 (Given - Provider: Kristine Machado RN)1142 (Given - Provider: Kristine Machado RN)1145 (Given - Provider: Kristine Machado RN)1150 (Given - Provider: Kristine Machado RN) documented in this encounter Care Teams Pipe Straightener Relationship Specialty Start Date End Date Husam Rosas MD [address] [place] [address] PCP - General 01/19/10 01/22/17 documented as of this encounter
--- OUTSIDE RECORDS SUMMARY | 2023-12-04 16:32 | XMS_ITS | Encounter Summary ---
Author Organization [facility] Address [facility] [place] [address] Care Team Providers Care Pattern Room Attendant Name Role Phone Husam Rosas MD Primary Care Provider [phone] [phone] Reason for Visit * Reason Onset Date Comments Medication Refill 04/13/2015 Encounter Details Date Type Department Care Team (Late Contact Info) Description 04/13/2015 Refill [place] [address] Drew Heaton MD [facility] [place] [address] Human immunodeficiency virus (HIV) disease Social History [...] Telephone Encounter - Suzie Mars RN - 04/13/2015 1:17 PM EST Clarissa Hodge in [facility] sends a request for renewal prescriptions for reyataz, epzicom I did call the pharmacy to determine if refills needed for ritonavir, and Viread (both have 3 refills) I will forward request to Dr Heaton documented in this encounter Plan of Treatment Upcoming Encounters Date Type Department Care Team (Late Contact Info) Description 03/06/2024 1:30 PM EST Office [place] [address] Satya Wills MD [facility] [place] [address] documented as of this encounter Visit Diagnoses Diagnosis Human immunodeficiency virus (HIV) disease Human immunodeficiency virus [HIV] disease documented in this encounter Care Teams Pattern Room Attendant Relationship Specialty Start Date End Date Husam Rosas MD [address] [address] PCP - General 01/19/10 01/22/17 documented as of this encounter
--- OUTSIDE RECORDS SUMMARY | 2023-12-04 16:32 | XMS_ITS | Encounter Summary ---
Author Organization [facility] Address [facility] [place] [address] Care Team Providers Care Agile Test Lead Name Role Phone Husam Rosas MD Primary Care Provider [phone] [phone] Encounter Details Date Type Department Care Team (Late st Contact Info) Description 10/09/2015 9:30 AM EDT Office [place] [address] Satya Wills MD [facility] [place] [place] [address] Partial symptomatic epilepsy with complex partial seizures, [...] Sign Reading Time Taken Comments Blood Pressure 117/84 10/09/2015 9:42 AM EDT Pulse 81 10/09/2015 9:42 AM EDT Temperature - - Respiratory Rate - - Oxygen Saturation - - Inhaled Oxygen Concentration - - Weight 90 kg (198 lb 6.4 oz) 10/09/2015 9:42 AM EDT Height 168.9 cm (5' 6.5) 10/09/2015 9:42 AM EDT reported Body Mass Index 31.54 10/09/2015 9:42 AM EDT documented in this encounter Progress Notes * Satya Wills MD - 10/09/2015 9:30 AM EDT Neurology clinic note Chief Complaint: [...] then reported that she is having seizures. However the evidence for this is somewhat unclear. She had some unexplained injuries. Seizures have not been observed. At present she says that she has not had a major motor seizure for some time. She thinks she is still getting auras with a gastric/thoracic sensation. 2. She continues to have daily chronic headaches with daily sharp shooting pains on the right, and intermittent nausea she was seen in headache clinic by Dr. Allen who is doing Botox injections. The patient seems somewhat improved 3. She developed new skin lesions all over her arms the cause of which is at present unclear. She was seen in dermatology and no specific diagnosis was established. She is better with some triamcinolone cream, but skin lesions are still apparent. 4. She continues to complain about difficulty with swallowing, and escape scheduled for a GI evaluation with upper endoscopy. 5. Says she is compliant with her [...] Dispense Refill ??? REYATAZ 300 mg Capsule Take 1 capsule by mouth daily. 0 ??? clonazePAM (KLONOPIN) 1 mg Tablet TAKE [...] by mouth daily. 60 capsule 11 ??? hydrOXYzine (VISTARIL) 25 mg Capsule take [...] by mouth daily. 30 tablet 5 ??? triamcinolone (KENALOG) 0.1 % Ointment [...] by mouth daily. 30 tablet 11 ??? promethazine (PHENERGAN) [address] 1-2 suppositories rectally every 6 hours as needed (Nausea with headache). (Patient not taking: Reported on 10/09/2015) 15 suppository 5 No current facility-administered medications for this [...] substantially controlled. As I don't know what really going on, I'm not going to make any changes. Anticonvulsant levels have been in a low therapeutic range. 2. Headaches seem somewhat improved with Botox injection. I would defer to Dr. lAlen with regard to headache management.. 3. The skin rash remains mysterious. It seems better with steroid cream, but is still quite obviouson her arms and chest.. 4. Psychiatrically she looks somewhat better today, with less pressured speech and also somewhat more organized in her thinking. 5. I did not address the infectious disease issues today, except inquired about medication compliance, but she has a follow-up appointment with Dr. Heaton in [place]. 6. She is going to get an upper endoscopy here soon. Thank you for this consultation. I will see her back in 6 months, or sooner as needed. Satya Wills MD [place] [address] Pager: [phone], #[phone] Email: [email or web address] cc: ROSA Allen MD documented in this encounter Plan of Treatment Upcoming Encounters Date Type Department Care Team (Late st Contact Info) Description 03/06/2024 1:30 PM EST Office [place] [address] Satya Wills MD [facility] [place] [place] [address] documented as of this encounter Visit Diagnoses Diagnosis Partial symptomatic epilepsy with complex partial seizures, intractable, without status epilepticus documented in this encounter Care Teams Agile Test Lead Relationship Specialty Start Date End Date Husam Rosas MD [address] [place] [address] PCP - General 01/19/10 01/22/17 documented as of this encounter
--- OUTSIDE RECORDS SUMMARY | 2023-12-04 16:32 | XMS_ITS | Encounter Summary ---
Author Organization [facility] [place] [address] Care Team Providers Care Associate Juvenile Court Judge Name Role Phone Husam Rosas MD Primary Care Provider [phone] [phone] Reason for Visit * Reason Onset Date Comments Medication Refill 08/10/2015 Encounter Details Date Type Department Care Team (Late Contact Info) Description 08/10/2015 [place] [address] Sada Hurtado CMA Medication Refill Social History Tobacco Use Types [...] encounter Miscellaneous Notes * Telephone Encounter - Sada Hurtado CMA - 08/10/2015 4:31 PM EDT New RX for Vimpat 200 MG tablets faxed to requested pharmacy, [id number] [place], [place] - [address] [facility]. documented in this encounter Plan of Treatment Upcoming Encounters Date Type Department Care Team (Late Contact Info) Description 03/06/2024 1:30 PM EST [place] [address] Satya Wills MD [facility] [place] [address] documented as of this encounter Visit Diagnoses Not on filedocumented in this encounter Care Teams Associate Juvenile Court Judge Relationship Specialty Start Date End Date Husam Rosas MD [address] [address] PCP - General 01/19/10 01/22/17 documented as of this encounter
--- OUTSIDE RECORDS SUMMARY | 2023-12-04 16:32 | XMS_ITS | Encounter Summary ---
Author Organization [facility] [place] [address] Care Team Providers Care Pickling Solution Maker Name Role Phone Husam Rosas MD Primary Care Provider [phone] [phone] Reason for Visit * Reason Onset Date Comments Medication Refill 08/17/2015 Encounter Details Date Type Department Care Team (Late Contact Info) Description 08/17/2015 [place] [address] Sada Hurtado CMA Medication Refill [...] Telephone Encounter - Sada Hurtado CMA - 08/17/2015 3:08 PM EDT New RX for Klonopin 1 Mg tablets faxed to requested pharmacy, [id number] [place], [place] - [address] [place] [address]. documented in this encounter Plan of Treatment Upcoming Encounters Date Type Department Care Team (Late Contact Info) Description 03/06/2024 1:30 PM EST [place] [address] Satya Wills MD [facility] [place] [address] documented as of this encounter Visit Diagnoses Not on filedocumented in this encounter Care Teams Pickling Solution Maker Relationship Specialty Start Date End Date Husam Rosas MD [address] [address] PCP - General 01/19/10 01/22/17 documented as of this encounter
--- OUTSIDE RECORDS SUMMARY | 2023-12-04 16:32 | XMS_ITS | Encounter Summary ---
Author Organization [facility] Address [facility] [place] [address] Care Team Providers Care Waterproofing Supervisor Name Role Phone Husam Rosas MD Primary Care Provider [phone] [phone] Reason for Visit * Reason Comments Dermatitis * Consultation (Routine) - Closed Specialty Diagnoses / Procedures Referred By Contac t Referred To Contact Dermatology Diagnoses Partial symptomatic epilepsy with complex partial seizures, intractable, without status epilepticus Satya Wills MD [facility] [place] [address] [facility] Dermatology [address] [place] [address] Referral ID Status Reason Start Date Expiration Date V isits Requested Visits Authorized [id number] Closed Consult, Test & Treat 02/10/2015 02/10/2016 1 1 Encounter Details Date Type Department Care Team (Late st Contact Info) Description 03/06/2015 2:00 PM EST Office Visit Dermatology at [facility] [address] [place] [address] Idris Guevara MD [address] [facility] [address] Dermatitis (Primary Dx) Social History Tobacco Use Types [...] on file documented as of this encounter Patient Instructions * Patient Instructions* Meg Hinds - 03/06/2015 2:14 PM EST Post-Biopsy Wound Care Instructions You have just had a skin biopsy. Wound care will be important to prevent infection and minimize scarring. ??? If there are sutures, do not get the wound soaking wet - e.g., immersed in a bath or swimming pool - for 96 hours. ??? Return to clinic for suture removal in 14 days. ??? Keep the wound clean. You may wash the wound with soapy water running over the wound. Do not scrub. ??? Apply antibiotic ointment - e.g., polysporin, neosporin, bacitracin or bactroban - or clean vaseline to the wound and cover with a bandaid 1-2 times a day. ??? Keep the wound dressed this way 24h a day until healed - typically 7-14 days, though healing times may vary depending on the size of the wound and the location. ??? Do not let the wound scab over or dry up, which may delay wound healing and more likely producea more apparent scar than will already be formed. ??? The site may be itchy for up to several weeks. ??? If you notice redness spreading out from the wound, thick white or yellow drainage, increased swelling, tenderness at the wound or have any other questions or problems about the biopsy, please contact the clinic immediately. If you have any questions, please contact the clinic during the day at . In the case of urgency after 5PM and on weekends, please call the hospital number and ask for the Program Or Project Administrator dirt contractor. Pathology results may take 5-14 days depending on the number of stains that must be performed. If you do not hear back within 3 weeks of the biopsy, contact the clinic nurse or front office developer during normal business hours for the results. documented in this encounter Progress Notes * Deborah Kline LPN - 04/03/2015 2:24 PM AGUILARQuick Note: Left message for patient to call clinic, ask for Deborah * Deborah Kline LPN - 04/01/2015 4:06 PM AGUILARQuick Note: Spoke to patient regarding pathology results. She states her arms are improving with triamcinolone though she has a hard time reaching to apply it everywhere as she lives alone. I went through her med list and it is accurate with the exception of: albuterol, used prn rarely, compazine used prn rarely, and she has not yet started vipmat. She has used Tide laundry detergent for about 25 years, Ivory soap also been using for several years, and Gold Sanders Ultra moisturizer. I talked with her brieflyabout patch testing and she is not against it, though she has concerns because she [place] far away. I told her I would speak with Dr. Guevara and we would get back to her to discuss the next steps. * Meg Hinds - 03/06/2015 3:25 PM EST Images from the original note were not included. Figure A Photos obtained and charted with patient's consent for documentation purposes. * Deborah Kline LPN - 03/06/2015 1:35 PM EST Patient is established to this clinic, but new to me. Chief Complaint: rash f/u - worsening History of Present Illness Josiane Pacheco is a 59 y.o. female with a history of severely pruritic red, scaly dermatitis that started on the right arm and spread to the trunk and extremities. No known triggers. No new medications in the last year. Taken naproxen for years. Currently using hydrocortisone 2% who reports worsening. Never been treated or biopsied. History of HIV. Interval Changes in Medications and Medical, Surgical Family, and Social Histories Since Last Visit07/09/2012: No significant and pertinent interval changes. Allergies Allergies Allergen Reactions ??? Lamictal [Lamotrigine] Per patient very dizzy, double vision, and hard to keep walking. ??? Topiramate Itching Medications clonazePAM (KLONOPIN) 1 mg Tablet; lacosamide (VIMPAT) 200 mg Tablet; hydrocortisone 2.5 % Cream; RITONAVIR 100 mg Tablet; VIREAD 300 mg Tablet; meloxicam (MOBIC) 7.5 mg Tablet; hydrOXYzine (VISTARIL) 25 mg Capsule; REYATAZ 300 mg Capsule; EPZICOM 600-300 mg Tablet; naproxen sodium (ANAPROX) 550 mg Tablet; prochlorperazine (COMPAZINE) 10 mg Tablet; eslicarbazepine (APTIOM) 800 mg Tablet albuterol (PROVENTIL HFA;VENTOLIN HFA) 90 mcg/Actuation inhaler; polyethylene glycol (MIRALAX) 17 gram/dose powder; Multivitamins with Iron Tab Social History Tobacco use - Current smoker Alcohol use - Occasionally Review of Systems Significant for no fevers, chills, night sweats, or fatigue and no other pertinent and acute changes in constitutional, other skin, HEENT, gastrointestinal, respiratory, musculoskeletal, allergy/immunology systems upon specific queries. Examination Standby: Meg Hinds, Clinical Scribe Pain 0/10. Mood is appropriate. Well developed, well-nourished in no apparent distress, alert and oriented to time, person, place and situation. Skin Type: II. Examination of the head - including the scalp, face, ears, nose, eyelids - neck, chest, abdomen, back, axillae, upper extremities and thighs/legs significant for the following: ?? Diffuse, pink, slightly lichenified plaques with hemorrhagic crusted papules on the dorsum/sun-exposed forearms and distal arms (stops at wrist); hemorrhagic crusted papules or eroded papules and pink papules on the back, sun-exposed chest, legs/ankles; pink patches on the knees and ankles. No involvement of the hands, palms and soles. Normal nail plates. Spares volar wrists ?? Red patch on the sun-exposed face Procedure DELVIN testing of the skin scraping was negative for HIFi and Scabies Punch Procedure Discussed with patient diagnostic options, including the risks and benefits of observation, empirictreatment, and biopsy, including but not limited to recurrence, cosmesis (scar, dyspigmentation, scar spread), pain, keloid/hypertrophic scar, bleeding, infection, hematoma, nerve damage, and bruising. Patient verbally understands and elects biopsy. Allergies See above or Breast Feeding Denies Defibrillator or Pacemaker No Time Out Performed: Full Name, , and site(s) confirmed with patient Procedure (s) A. Punch Location (s) A. Right forearm Pre-Operative Diagnosis A. ACD v photo drug v drug v psoriasis v scabies Anesthesia: 1% lidocaine+1:100,000 epinephrine Sterile Prep Alcohol Lesion biopsied with punch technique using a 4 mm punch. Wound edges approximated with simple interrupted 5-0 prolene. <1ml blood loss. No complications. Specimen(s): Placed in formalin and sent to Pathology for histologic examination. Post-op care: Vaseline, Pressure Dressing Post-operative pain: 0/10 Assessment and Plan Dermatitis Wound care instructions provided. No soaking baths or swimming for 96h. Wound care: Vaseline or antibiotic ointment, bandaid every 12-24h. Remove sutures in 14 days Counseled: Ddx ACD v photo drug v drug v psoriasis v scabies; negative for HIFi and Scabies. Proceeded with biopsy at Patient's request. Counseled biopsy to identify etiology, and removal options. Handout given. Plan based on pathology results. Patient can be reached at [phone] and results may be left on voicemail. Start Triamcinolone 0.1% ointment D - 1 lb jar, R - 1; bid prn itching to trunk and extremities Counseled: risks of topical steroids, including but not limited to atrophy, dyspigmentation. Continue Hydroxyzine q6h prn itching. Discontinue Hydrocortisone cream Follow-up: Based on pathology results. Suture removal in 14 days. Patient will be contacted by telephone (see above). She will call with questions or concerns, or if changes/symptoms in new or existing lesions develop. I am documenting this encounter acting as the scribe for and in the presence of Dr. Guevara: DEBORAH CARRION LPN and Meg Hinds, Clinical Scribe I performed the above scribed service and agree with the accuracy of the documentation in this encounter. Idris Guevara MD FAAD Section of Dermatology [facility] documented in this encounter Plan of Treatment Upcoming Encounters Date Type Department Care Team (Late st Contact Info) Description 03/06/2024 1:30 PM EST [place] [address] Satya Wills MD [facility] [place] [address] documented as of this encounter Procedures Procedure Name Priority Date/Time Associated Diagnosis Comments SPECIMEN TO PATHOLOGY (NON-OR) Routine 03/06/2015 3:04 PM EST Dermatitis SURGICAL PATHOLOGY REPORT Routine 03/06/2015 3:04 PM EST documented in this encounter Results * Surgical Pathology Report (03/06/2015 3:04 PM EST) Final Diagnosis [id number] ?Location: [facility] The signing pathologist has (i) examined the relevant preparation(s) for the specimen(s) and (ii) rendered or confirmed the diagnosis(es). . ?Surgical Pathology DIAGNOSIS Skin, right forearm, punch biopsy: - SPONGIOTIC DERMATITIS WITH EOSINOPHILS (SEE DISCUSSION) 03/09/15 BJM 03/09/15 Verified by: ? Mohini HALL, [place] ?Dermatopatholog ist ?(Electronic Signature) The attending pathologist whose signature appears on this report has reviewed all diagnostic slides and has edited the gross and/or microscopic portion of the report in rendering the final pathologic diagnosis. DISCUSSION The biopsy reveals spongiosis with a brisk accompanying superficial dermal perivascular lymphocytic infiltrate. Scattered eosinophils are identified. These changes could be compatible with clinically considered allergic contact dermatitis or a photoallergic photosensitivity eruption induced by an exogenous agent. The findings provide less support for psoriasis. PASd staining fails to reveal fungal organisms and deep step- leveled sections real no features to support mite infestation. CLINICAL INFORMATION Specimen Submitted: A - Skin, right forearm, Punch, (1) Clinical History: 59 year-old with HIV with no new medications and four month history of dermatitis. Diffuse pink slightly lichenified plaques and hemorrhagic crusted papules and erosions on the dorsum forearms and distal arms (stops at wrist); hemorrhagic crusted papules on the arms and dorsum forearms, lower extremities, and back; pink poorly demarcated patches on the knees; spares volar wrist, hands and feet. Scabies and tinea prep negative. Clinical Diagnosis: Photodrug/contact vs. drug vs. ACD vs. psoriasis vs. scabies SPECIMEN PROCESSING A - Labeled/Fixative: Right forearm, formalin. Quantity/Size: Single, 0.4 cm punch. Tissue Description: Punch of pale argueta-white skin. Sections/Processi ng: Dissected. (T1) ??pps 03/09/2015 6:50 PM EST [facility] SPECIMEN FROM SKIN / Unknown 03/06/2015 3:04 PM EST 03/06/2015 3:04 PM EST Idris Guevara MD PATHOLOGY/CYTOLOGY O NANCY Performing Organization Address [facility] Co de Phone Number [facility] [place] [address] * Specimen to Pathology (NON-OR) (03/06/2015 3:04 PM EST) AP Specimen 03/06/2015 3:04 PM EST 03/06/2015 6:17 PM EST Narrative [facility] 6[facility]17 PM EST Specimen requisition ordered. ??Separate Pathology report to follow Resulting Agency Comment Spec In Lab Idris Guevara MD PATHOLOGY/CYTOLOGY O NANCY Performing Organization Address [facility] Co de Phone Number [facility] documented in this encounter Visit Diagnoses Diagnosis Dermatitis- Primary Contact dermatitis and other eczema, due to unspecified cause documented in this encounter Care Teams Waterproofing Supervisor Relationship Specialty Start Date End Date Husam Rosas MD [address] [place] [address] PCP - General 01/19/10 01/22/17 documented as of this encounter
--- OUTSIDE RECORDS SUMMARY | 2023-12-04 16:32 | XMS_ITS | Encounter Summary ---
Author Organization [facility] Address [facility] [address] Care Team Providers Care Gun Number Name Role Phone Husam Rosas MD Primary Care Provider [phone] [phone] Reason for Visit * Reason Comments Medication Refill Encounter Details Date Type Department Care Team ([facility] Contact Info) Description 05/13/2015 [place] [address] Satya Wills MD [facility] [place] [address] Social History Tobacco Use Types Packs/Day Years [...] Upcoming Encounters Date Type Department Care Team ([facility] Contact Info) Description 03/06/2024 1:30 PM EST [place] [address] Satya Wills MD [facility] [place] [address] documented as of this encounter Visit Diagnoses Not on filedocumented in this encounter Care Teams Gun Number Relationship Specialty Start Date End Date Husam Rosas MD [address] [place] [address] PCP - General 01/19/10 01/22/17 documented as of this encounter
--- OUTSIDE RECORDS SUMMARY | 2023-12-04 16:32 | XMS_ITS | Encounter Summary ---
Author Organization [facility] Address [facility] [place] [address] Care Team Providers Care Market Research Senior Project Manager Name Role Phone Husam Rosas MD Primary Care Provider +1 [phone] Encounter Details Date Type Department Care Team (Late st Contact Info) Description 10/16/2015 2:30 PM EDT - 10/16/2015 3:00 PM EDT [place] [address] Ramesh Johnson MD [facility] [place] [address] UPPER GASTROINTESTINAL ENDOSCOPY,WITH BIOPSY SINGLE OR MULTIPLE (WRVU 2.39) Social History Tobacco Use Types [...] occurs please contact your M.D. Please call [phone] before 5 pm with problems, questions or concerns. After 5pm call [phone] and ask to speak with the children's book author optimization specialist. Discharge instructions reviewed with patient who expresses understanding. * Attachments The following attachments cannot be sent through Care Everywhere. * EGD (UPPER ENDOSCOPY) : POST-OP (TRINIDADIAN) * ESOPHAGEAL DILATION : POST-OP (TRINIDADIAN) documented in this encounter Medications at Time [...] A DAY 60 tablet 5 08/10/2015 02/07/2016 VIREAD 300 mg TabletIndications:HIV disease [...] 1:30 PM EST [place] [address] Satya Wills MD [facility] [place] [address] documented as of this encounter Procedures Procedure [...] Report (10/16/2015 2:20 PM EDT) Final Diagnosis [id number] ? Location: 4T; EA07; A The signing [...] Sections/Processing: (T1) ??shb 10/23/2015 8:30 AM EDT [facility] GI Biopsy 10/16/2015 2:20 PM EDT 10/16/2015 2:20 PM EDT Ramesh Johnson MD PATHOLOGY/CYTOLOGY O NANCY Performing Organization Address City/[facility] [place] [address] * Specimen to Pathology (surgical or derm) (10/16/2015 2:20 PM EDT) AP Specimen 10/16/2015 2:20 PM EDT 10/16/2015 2:20 PM EDT Narrative [facility] - 10/16/2015 2:20 PM EDT Specimen requisition ordered. ??Separate Pathology report to follow Ramesh Johnson MD PATHOLOGY/CYTOLOGY O NANCY Performing Organization Address City/[facility] [place] [address] * UPPER GI ENDOSCOPY (10/16/2015 1:48 PM EDT) UPPER GI ENDOSCOPY [facility] Endoscopy Procedure Date: 10/16/2015 1:48 PM ? Patient Name: Josiane Pacheco ? N: [id number] ? Date of : 1955 ? Age: 60 ? Order #: [id number] ? Instrument Name: [id number] ? Procedure: ? Upper GI endoscopy Indications: ? H/o severe esophagitis and stenosis, ? now on PPI, f/u dilation # 2. last ? dilated to 14 mm Providers: ? Ramesh Johnson MD, Alexy Garcia, ? RN, Kristine Machado RN Referring MD: ?Husam Rosas MD Medicines: ? Propofol [...] CRNA) documented in this encounter Care Teams Market Research Senior Project Manager Relationship Specialty Start Date End Date Husam Rosas MD [address] [place] [address] PCP - General 01/19/10 01/22/17 documented as of this encounter
--- OUTSIDE RECORDS SUMMARY | 2023-12-04 16:32 | XMS_ITS | Encounter Summary ---
Author Organization [facility] Address [facility] [place] [address] Care Team Providers Care Department Of Mathematics Chair Name Role Phone Husam Rosas MD Primary Care Provider +1 [phone] Encounter Details Date Type Department Care Team (Late st Contact Info) Description 06/23/2015 10:30 AM EDT - 06/23/2015 11:30 AM EDT Surgery [place] [phone] Dejan Sykes MD [facility] DR [place]STRO[place] [address] EGD, UPPER GI ENDOSCOPY (WRVU 2.09) Social [...] Sign Reading Time Taken Comments Blood Pressure 124/60 06/23/2015 11:30 AM EDT Pulse 66 06/23/2015 11:30 AM EDT Temperature - - Respiratory Rate 20 06/23/2015 11:30 AM EDT Oxygen Saturation 96% 06/23/2015 11:30 AM EDT Inhaled Oxygen Concentration - - Weight - - Height - - Body Mass Index - - documented in this encounter Discharge Instructions * Discharge Instructions* Kumar Skinner RN - 06/23/2015 12:10 PM EDT You may [...] occurs please contact your M.D. Please call [phone] before 5 pm with problems, questions or concerns. After 5pm call [phone] and ask to speak with the tunneller saxophone assembler. Discharge instructions reviewed with patient who expresses [...] 1:30 PM EST [place] [address] Satya Wills MD [facility] DR [place]OLOG[place] [address] documented as of this encounter Procedures Procedure Name Priority Date/Time Associated Diagnosis Comments EGD, UPPER GI ENDOSCOPY (WRVU 2.09) 06/23/2015 11:21 AM EDT dysphagia UPPER GI ENDOSCOPY Routine 06/23/2015 10 :45 AM EDT documented in this encounter Results * UPPER GI ENDOSCOPY (06/23/2015 10:45 AM EDT) [facility] Signature UPPER GI ENDOSCOPY [facility] Endoscopy Patient Name: Josiane Pacheco ? Procedure Date: 06/23/2015 10:45 AM ? Date of : 1955 ? Age: 59 ? Order #: [id number] ? Procedure: ? Upper GI endoscopy Indications: ? Dysphagia, Suspected esophageal reflux Providers: ? Kristine Garrison ? MEIR Machado, Tarun Lunsford, ? Diesel Powerplant Supervisor, Kailyn Chatman Referring : ?Husam Rosas MD Medicines: ? Midazolam 6 [...] the physician, the nurse and the ? plastics technician in the pre-procedure area ? in [...] MD GENERAL SURGICAL ORDERABLES Performing Organization Address City/State/[facility] Co de Phone Number [employer] documented in this encounter Visit Diagnoses Not on filedocumented in this encounter Administered Medications Inactive Administered Medications - up to 3 most recent administrations Medication Order MAR Action Action Date Dose Rate Site fentaNYL 50 mcg/mL multi-dose injection ONCE PRN, Starting on Mon06/23/15 at 1131, Until Mon06/23/15 at 1303, Intra-Operative (Intra-Procedure), Routine Given 06/23/2015 11:45 AM EDT 25 mcg Given 06/23/2015 11:42 AM EDT 50 mcg Given 06/23/2015 11:39 AM EDT 50 mcg lactated ringers infusion 100 mL/hr, Intravenous, CONTINUOUS, Starting on e 06/23/15 at 1115, Until Mon06/23/15 at 1303, Endoscopy (Day of Procedure) New Bag 06/23/2015 11:15 AM EDT 100 mL/hr 100 mL/hr midazolam (PF) (VERSED) 1 mg/mL multi-dose injection ONCE PRN, Starting on e 06/23/15 at 1131, Until Mon06/23/15 at 1303, Intra-Operative (Intra-Procedure), Routine Given 06/23/2015 11:50 AM EDT 0.5 mg Given 06/23/2015 11:45 AM EDT 1 mg Given 06/23/2015 11:42 AM EDT 1 mg documented in this encounter Active and Recently Administered Medications Times are shown in EDT. Continuous Medication Order 06/21/2015 06/22/2015 06/23/2015 lactated ringers infusion (CANCELED) 100 mL/hr, Intravenous, CONTINUOUS, Starting on Mon06/23/15 at 1115, Until Mon06/23/15 at 1303, Endoscopy (Day of Procedure) 1115 [...] RN) documented in this encounter Care Teams Department Of Mathematics Chair Relationship Specialty Start Date End Date Husam Rosas MD [address] [place] [address] PCP - General 01/19/10 01/22/17 documented as of this encounter
--- OUTSIDE RECORDS SUMMARY | 2023-12-04 16:32 | XMS_ITS | Encounter Summary ---
Author Organization [facility] Address [facility] [place] [address] Care Team Providers Care Senior Sas Developer Name Role Phone Husam Rosas MD Primary Care Provider [phone] [phone] Reason for Visit * Reason Onset Date Comments Medication Refill 03/27/2015 Encounter Details Date Type Department Care Team (Late Contact Info) Description 03/27/2015 Refill [place] [address] Drew Heaton MD [facility] [place] [address] Nicotine dependence, uncomplicated, unspecified nicotine product type Social History Tobacco Use Types Packs/Day [...] Telephone Encounter - Suzie Mars RN - 03/27/2015 1:22 PM EST Josiane requests a smoking patch; I have attempted to reach Josiane by phone, but no response and no return call (x2) Discussed with Dr Heaton; he will order 21 mg patches for a two week period of time I will continue to try to reach Josiane to discuss her strategy for quitting; assess readiness, provide resources documented in this encounter Plan of Treatment Upcoming Encounters Date Type Department Care Team (Late Contact Info) Description 03/06/2024 1:30 PM EST Office [place] [address] Satya Wills MD [facility] [place] [address] documented as of this encounter Visit Diagnoses Diagnosis Nicotine dependence, uncomplicated, unspecified nicotine product type documented in this encounter Care Teams Senior Sas Developer Relationship Specialty Start Date End Date Husam Rosas MD [address] [place] [address] PCP - General 01/19/10 01/22/17 documented as of this encounter
--- OUTSIDE RECORDS SUMMARY | 2023-12-04 16:32 | XMS_ITS | Encounter Summary ---
Author Organization Formerly [facility] Address [facility] [place] [address] Care Team Providers Care Editor Managing Newspaper Name Role Phone Husam Rosas MD Primary Care Provider +1 [phone] Encounter Details Date Type Department Care Team (Late st Contact Info) Description 10/16/2015 1:59 PM EDT Anesthesia [place] [address] Crow Gama MD [facility] [place] [address] Deidre Bhatt CRNA [facility] [place] [address] Anesthesia Record Procedure Summary Procedure Name Responsible Anesthesiologist Anesthesia Start Time Anesthesia Stop Time UPPER GASTROINTESTINAL ENDOSCOPY,WITH BIOPSY SINGLE OR MULTIPLE (WRVU 2.39) (Trunk) Crow Gama MD 10/16/15 1359 10/16/15 1416 Events Date Time Event Comment 10/16/2015 1335 1359 AN Verify 1359 Start 1359 An Start Data 1403 An Induction 1403 Anesthesia Ready 1416 an stop data 1416 Recovery or ICU Handoff Lida ent care was transferred to the destination unit staff after review of the patient's medical history, current anesthetic/surgical status and plan, according to the Provider Handoff Checklist. 1416 Stop Meds Name Total Propofol 140 mg Propofol INF 108 mg lactated ringers infusion 200 mL * Agents Name O2 * Blood No blood administrations on file. Lines, Drains, and Airways Type Details Placement Removal (RETIRED) Peripheral IV Line - Single Lumen 10/16/15; 1400; metacarpal vein left (top of hand); 24 gauge; 10/16/15; 1456 10/16/15 1400 by Linda Pantoja RN 10/16/15 1456 by Kumar Skinner RN documented in this encounter Social History [...] Notes * Anesthesia Postprocedure Evaluation - Crow Gama MD - 10/16/2015 2:35 PM EDT [facility] Department of Anesthesiology Post-procedure Note Patient: Josiane Pacheco Procedure Summary Date Anesthesia Start Anesthesia Stop Room / Location 10/16/15 1359 1416 [facility] 6 / [facility] Procedure Diagnosis Surgeon Responsible Provider UPPER GASTROINTESTINAL ENDOSCOPY,WITH BIOPSY SINGLE OR MULTIPLE (N/A Trunk); ESOPHAGOSCOPY, TRANSORAL; WITH BALLOON DILATION <30MM (N/A Esophagus) (Repeat EGD 1-2 months repeat dilation per Arelis) Ramesh Johnson MD Pouliot, Ryan C, MD All Anesthesia Providers: Anesthesiologist: Crow Gama MD STEEL BOX TOE INSERTER: Deidre Bhatt CRNA Last (1hr) Vitals: BP 160/45 (10/16/15 1420) Temp Pulse 89 (10/16/15 1420) Resp 16 (10/16/15 1420) SpO2 96 % (10/16/15 1420) Patient Location: PACU/[facility] Level of Consciousness: Awake and Alert Pain Management: Satisfactory Analgesia PONV: None Cardiovascular Status: Hemodynamically Stable and At Baseline Respiratory Status: Room Air and At Baseline Postoperative Fluid Status: Intravascular EUvolemia Possible Anesthetic Complications: NONE apparent at time of evaluation Final Primary Anesthesia Type: MAC (The anesthetic type performed was the same as planned.) Comments: * Anesthesia Preprocedure Evaluation - Crow Gama MD - 10/16/2015 7:37 AM EDT Pre-Anesthesia Evaluation for: Josiane Pacheco a 60 [...] ENDOSCOPY performed by Dejan Sykes MD at [facility] ??? Pro esophagoscopy rigid transoral balloon dilation N/A 07/31/2015 ESOPHAGOSCOPY, TRANSORAL; WITH BALLOON DILATION <30MM performed by Ramesh Johnson MD at [facility] Social History Substance Use Topics ??? Smoking status: Former Smoker Packs/day: 0.00 Years: 35.00 Types: Cigarettes ??? Smokeless tobacco: Never Used ??? Alcohol use Yes Comment: occasional History Drug Use No Allergies Allergen Reactions ??? Lamictal [Lamotrigine] Per patient very dizzy, double vision, and hard to keep walking. ??? Topiramate Itching Medications: MAR and/or home medications have been reviewed. Physical Exam: There were no vitals filed for this visit. There is no height or weight on [...] presents for EGD for f/ufrom dilation in 07/2015. Tolerated prior procedure with propofol sedation. Plan for MAC. Region - Other Informed Consent: Anesthetic plan and risks discussed with patient. Plan discussed with STEEL BOX TOE INSERTER. PAT Staff Note documented in this encounter Plan of Treatment Upcoming Encounters Date Type Department Care Team (Late st Contact Info) Description 03/06/2024 1:30 PM EST Office [place] [address] Satya Wills MD [facility] [place] [address] documented as of this encounter Visit Diagnoses [...] 1:45 PM EDT 100 mL/hr 100 mL/hr propofol (DIPRIVAN) 10 mg/mL bolus injection (Anesthesia) PRN, Starting on Mon10/16/15 at 1403, Until Mon10/16/15 at 1416, Anesthesia Intra-op Given 10/16/2015 2:05 PM EDT 40 mg Given 10/16/2015 2:03 PM EDT 100 mg propofol (DIPRIVAN) infusion CONTINUOUS PRN, Starting on Mon10/16/15 at 1403, Until Mon10/16/15 at 1416, Anesthesia Intra-op, Routine New Bag 10/16/2015 2:03 PM EDT 150 mcg/kg/m in 81 mL/hr documented in this encounter Care Teams Editor Managing Newspaper Relationship Specialty Start Date End Date Husam Rosas MD [address] [place] [address] PCP - General 01/19/10 01/22/17 documented as of this encounter
--- OUTSIDE RECORDS SUMMARY | 2023-12-04 16:32 | XMS_ITS | Encounter Summary ---
Author Organization [facility] Address [facility] [place] [address] Care Team Providers Care Event Attendant Name Role Phone Husam Rosas MD Primary Care Provider [phone] [phone] Reason for Visit * Reason Comments Medication Refill Encounter Details Date Type Department Care Team (Late Contact Info) Description 10/10/2015 [place] [address] Satya Wills MD [facility] [place] [address] Social History Tobacco Use Types Packs/Day Years [...] 1:30 PM EST [place] [address] Satya Wills MD [facility] [place] [address] documented as of this encounter Visit Diagnoses Not on filedocumented in this encounter Care Teams Event Attendant Relationship Specialty Start Date End Date Husam Rosas MD [address] [place] [address] PCP - General 01/19/10 01/22/17 documented as of this encounter
--- OUTSIDE RECORDS SUMMARY | 2023-12-04 16:32 | XMS_ITS | Encounter Summary ---
Author Organization Formerly [facility] [place] [address] Care Team Providers Care Sap Fico Architect Name Role Phone Husam Rosas MD Primary Care Provider [phone] [phone] Encounter Details Date Type Department Care Team (Late Contact Info) Description 11/17/2015 External Results [place] [address] Drew Heaton MD [facility] [place] [address] Social History Tobacco Use Types Packs/Day Years [...] 1:30 PM EST [place] [address] Satya Wills MD [facility] [place] [address] documented as of this encounter Procedures Procedure Name Priority Date/Time Associated Diagnosis Comments EXTERNAL LAB CBC CMP THYROID RESULTS PANEL Routine 11/10/2015 EXTERNAL LAB INFECTIOUS DISEASE RESULTS PANEL Routine 11/10/2015 documented in this encounter Results * (ABNORMAL) CBC / CMP / Thyroid External Results (11/10/2015) Sodium 141(Exter nal Lab) 137 - 147 Potassium 3.6 3.4 - 5.3 Chloride 103 99 - 108 Carbon Dioxide 27 22 - 29 Blood Urea Nitrogen 12(Plastic Design Applier al Lab) Creatinine 0.63 Glucose 90 Calcium 9.0 8.7 - 10.7 Protein, Total 7.2 6.4 - 8.2 Albumin 3.6 3.5 - 5.0 Bilirubin, Total 1.26 Alkaline Phosphatase 56 Aspartate Aminotransferase 35 13 - 35 Alanine Aminotransferase 28 7 - 35 T4 Total 5.4 11/10/2015 Historical Provider EXTERNAL LAB PARUL CHAVARRIA * (ABNORMAL) Infectious Disease External Results (11/10/2015) White Blood Cell 2.61(Exter nal Lab) Hemoglobin 13.9 12.0 - 16.0 Hematocrit 39.9 36.0 - 46.0 Platelet 145 CD 4% 8 HIV Viral Load Result (Qualitative) 22,948 11/10/2015 Historical Provider POINT OF CARE WILTON T ORDERABLES documented in this encounter Visit Diagnoses Not on filedocumented in this encounter Care Teams Sap Fico Architect Relationship Specialty Start Date End Date Husam Rosas MD [address] [place] [address] PCP - General 01/19/10 01/22/17 documented as of this encounter
--- OUTSIDE RECORDS SUMMARY | 2023-12-04 16:32 | XMS_ITS | Encounter Summary ---
Author Organization Formerly [facility] Address [facility] [place] [address] Care Team Providers Care Assurance Analyst Name Role Phone Husam Rosas MD Primary Care Provider [phone] [phone] Encounter Details Date Type Department Care Team (Latest Contact Info) Description 03/06/2015 11:00 AM EST Office Visit Infectious Disease at [facility] [place] [address] Drew Heaton MD [facility] [place] [address] Human immunodeficiency virus (HIV) disease (Primary Dx) [...] Sign Reading Time Taken Comments Blood Pressure 143/83 03/06/2015 10:55 AM EST Pulse 71 03/06/2015 10:55 AM EST Temperature 36.7 ??C (98.1 ??F) 03/06/2015 10:[address] Respiratory Rate - - Oxygen Saturation 98% 03/06/2015 10:55 AM EST Inhaled Oxygen Concentration - - Weight 95.7 kg (211 lb) 03/06/2015 10:55 AM EST Height 168.9 cm (5' 6.5) 03/06/2015 10:55 AM ES T Body Mass Index 33.55 03/06/2015 10:55 AM EST documented in this encounter Progress Notes * Drew Heaton MD - 03/06/2015 11:23 AM EST This is a scheduled appointment for an HIV infected woman last seen by me in clinic seven months ago, since when she has had a tough time in many ways. She has been very stressed by her move to a [facility] [place], operated by [facility] in July; and complains now primarily of a diffuse pruritic rash, difficulty swallowing both solid and liquid, and intermittent vomiting. She also continues to have occasional seizures. Blood pressure 143/83, pulse 71, temperature 36.7 ??C (98.1 ??F), temperature source Oral, height 168.9 cm (5' 6.5), weight 95.709 kg (211 lb), last menstrual period 11/26/2010, SpO2 98 %. Overweight woman in no apparent distress. NC/AT. EOMI. Skin with diffuse rash, worst on her arms - multiple excoriated papules. Throat benign. Heart RRR no m/r/g. Lungs CTA. Abdomen benign. Neuro. grossly nonfocal. aBaseline Data Serologies/Screening: Monitoring HIV DX: /1990 CDQ : 12/31/2010 Family Planning: Routine nutritional eval: Ophtho exam: Dental eval: 12/25/2012 Adherence score: 10/22/2009 16 Hep A IgG: Hep B sAb: 02/08/2013 [...] Normal 08/11/2010 Normal Vag colpo: Last pelvic: [employer] Sander exam: 05/27/2009 Anal pap: Rectal colpo: CD4: 02/10/2015 195 8 07/15/2014 235 10 03/28/2014 248 10 Chris: 06/04/2010 82 VL: 02/10/2015 18,582 07/15/2014 28,213 03/28/2014 7,328 Max VL: 04/30/2003 28,700 Resist assays: 02/08/2013 no resistance mutations 07/26/2011 no resistance mutations 10/01/2010 no resistance Weights: 12/31/2010 97.977 12/16/2009 91.17 05/27/2009 83.91 Lipids: Total chol: 01/16/2009 207 LDL: 01/16/2009 115 HDL: 01/16/2009 68 Tri01/16/2009 121 Vaccines Influenza: 11/27/2014 Pneumovax: 09/16/2009 08/17/2001 Td: Tdap: 10/03/2008 HepA: 02/17/2000 HepB 20: 12/25/2002 HepB 40: HPV: Twinrix: Assessment and Plan: 1. HIV. 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 Most recently her viral load has remained +/-20k and her CD4 has beendropping, now again into the AIDS range. We have been challenged to engage Josiane in better understanding this, and she is now most preoccupied with the rash and difficulty swallowing. I will thus defer any changes for the moment while we try to address these problems. 2. Adherence. She regularly states that she is been 100% adherent, and I reinforced the importance of remaining so, but - as above - this clearly is far from accurate. 3. Chemoprophylaxis. None indicated by CD4. 4. Immunoprophylaxis. Up to date. 5. Risk reduction. Not sexually active since last seen - she has previously said that she is alwayssafe. 6. Seizure disorder/headaches. She is under the care of Dr. Wills. 7. Psychiatric. Her mood is down again. She is again seeing a therapist. 8. 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 Pap smear February 2013 was normal will reschedule to coordinate with next appointment (was to happen at the last appointment, but didn't get scheduled). 9. Obesity. Not addressed today. 10. Hyperlipidemia. Not addressed today. 11. Smoking. Had stopped smoking in February, but resumed and was barely contemplative about stopping at my last appointment. She did though stop over the holidays, 2013 [facility] but has again started and doesn't feel that she can address this until she is feeling better. 12. Rectal bleeding. Better after treatment with [...] of HBV sAg and HCV Ab negative at last appointment; so it would seem most likely this is ethanol. 15. Rash. She has an appointment in Dermatology today. 16. Odynophagia. We discussed referral to GI for possible endoscopy, but she would like to defer for a couple of months and coordinate with a future appointment. I wondered about thrush, but don't see any in her mouth today. 30 minutes [id number] time spent with the patient, 20 minutes of which was in discussion and counseling. Follow-up in 3-4 months. documented in this encounter Plan of Treatment Upcoming Encounters Date Type Department Care Team (Late st Contact Info) Description 03/06/2024 1:30 PM EST Office [place] [address] Satya Wills MD [facility] [place] [place] [address] documented as of this encounter Visit Diagnoses Diagnosis Human immunodeficiency virus (HIV) disease- Primary Human immunodeficiency virus [HIV] disease documented in this encounter Care Teams Assurance Analyst Relationship Specialty Start Date End Date Husam Rosas MD [address] [place] [address] PCP - General 01/19/10 01/22/17 documented as of this encounter
--- OUTSIDE RECORDS SUMMARY | 2023-12-04 16:33 | XMS_ITS | Encounter Summary ---
Author Organization [facility] [place] [address] Care Team Providers Care Oyster Picker Name Role Phone Husam Rosas MD Primary Care Provider [phone] [phone] Reason for Visit * Reason Comments Medication Refill Encounter Details Date Type Department Care Team (Late Contact Info) Description 10/19/2013 Refill [place] [address] Drew Heaton MD [facility] [place] [address] HIV (human immunodeficiency virus infection) (Primary Dx) Social History Tobacco Use Types Packs/Day Years Used Date Smoking Tobacco: Some Days Cigarettes 0.3 35 Smokeless Tobacco: Never Alcohol Use Standard Drinks/Week Comments No 0 (1 standard drink = 0.6 oz pur e alcohol) Currently going to AA Sex and Gender Information Value Date Recorded Sex Assigned at Not on file Gender Identity Not on file Sexual Orientation Not on file documented as of this encounter Miscellaneous Notes * Telephone Encounter - Suzie Mars RN - 10/21/2013 11:46 AM EDT Clarissa Hodge in [facility] called to request renewal prescriptions for reyataz and epzicom; request forwarded to Dr. Heaton documented in this encounter Plan of Treatment Upcoming Encounters Date Type Department Care Team ([facility] Contact Info) Description 03/06/2024 1:30 PM EST Office [place] [address] Satya Wills MD [facility] [place] [address] documented as of this encounter Visit Diagnoses Diagnosis HIV (human immunodeficiency virus infection)- Primary Asymptomatic human immunodeficiency virus (HIV) infection status documented in this encounter Care Teams Oyster Picker Relationship Specialty Start Date End Date Husam Rosas MD [address] [facility] [place] [address] PCP - General 01/19/10 01/22/17 documented as of this encounter
--- OUTSIDE RECORDS SUMMARY | 2023-12-04 16:33 | XMS_ITS | Encounter Summary ---
Author Organization [facility] Address [facility] [place] [address] Care Team Providers Care Fish Machine Feeder Name Role Phone Husam Rosas MD Primary Care Provider [phone] [phone] Reason for Visit * Reason Comments Medication Refill Encounter Details Date Type Department Care Team (Late Contact Info) Description 01/18/2014 Refill [place] [address] Drew Heaton MD [facility] [place] [address] HIV disease; HIV (human immunodeficiency virus infection) Social History Tobacco Use Types Packs/Day Years Used Date Smoking Tobacco: Some Days Cigarettes Smokeless Tobacco: Never Alcohol Use Standard [...] 1:30 PM EST Office [place] [address] Satya Wills MD [facility] [place] [address] documented as of this encounter Visit Diagnoses Diagnosis HIV disease Human immunodeficiency virus [HIV] disease documented in this encounter Care Teams Fish Machine Feeder Relationship Specialty Start Date End Date Husam Rosas MD [address] [place] [address] PCP - General 01/19/10 01/22/17 documented as of this encounter
--- OUTSIDE RECORDS SUMMARY | 2023-12-04 16:33 | XMS_ITS | Encounter Summary ---
Author Organization [facility] Address [facility] [place] [address] Care Team Providers Care Scoop Operator Name Role Phone Husam Rosas MD Primary Care Provider [phone] [phone] Reason for Visit * Reason Comments Medication Refill Encounter Details Date Type Department Care Team (Late st Contact Info) Description 11/13/2013 [place] [address] Satya Wills MD [facility] [place] [address] Social History Tobacco Use Types Packs/Day Years [...] Telephone Encounter - Jose Delgado RN - 11/14/2013 8:49 AM EDT Script approved and mailed to the patient Jose * Telephone Encounter - Jose Delgado RN - 11/13/2013 11:16 AM EDT Pharmacy request for medication refill for patient. Thanks Jose WORLEY documented in this encounter Plan of Treatment Upcoming Encounters Date Type Department Care Team (Late st Contact Info) Description 03/06/2024 1:30 PM EST [place] [address] Satya Wills MD [facility] [place] [address] documented as of this encounter Visit Diagnoses Not on filedocumented in this encounter Care Teams Scoop Operator Relationship Specialty Start Date End Date Husam Rosas MD [address] [facility] [place] [address] PCP - General 01/19/10 01/22/17 documented as of this encounter
--- OUTSIDE RECORDS SUMMARY | 2023-12-04 16:33 | XMS_ITS | Encounter Summary ---
Author Organization Formerly [facility] [place] [address] Care Team Providers Care Currency Machine Operator Name Role Phone Husam Rosas MD Primary Care Provider [phone] [phone] Encounter Details Date Type Department Care Team (Late st Contact Info) Description 10/14/2013 Telephone [facility]ious Disease at [facility] [place] [address] Suzie Mars, RN Social History Tobacco Use Types Packs/Day [...] Miscellaneous Notes * Telephone Encounter - Suzie Mars, MEIR - 10/14/2013 12:00 PM EDT TC from Josiane this morning; many complaints, but details difficult to determine- she touched on manytopics- my son doesn't like me; no one explained menopause; having more seizures; head hurts so bad, mouth twitching since 19 yo, occasional vomiting throat sore constantly tired Speech was clear, but rambling; tied one thought together with carole (and) Josiane has started to take her medications in the morning; thinks she is vomiting less, but still hastrouble swallowing feeling sad that relationship with son is strained; We made a plan that Josiane would go back to bed this morning and try to catch up on rest; she would then make a list of all complaints and contact her PCP office to schedule a physical to start to address some of above complaints documented in this encounter Plan of Treatment Upcoming Encounters Date Type Department Care Team (Late st Contact Info) Description 03/06/2024 1:30 PM EST [place] [address] Satya Wills MD [facility] [place] [address] documented as of this encounter Visit Diagnoses Not on filedocumented in this encounter Care Teams Currency Machine Operator Relationship Specialty Start Date End Date Husam Rosas MD [address] [place] [address] PCP - General 01/19/10 01/22/17 documented as of this encounter
--- OUTSIDE RECORDS SUMMARY | 2023-12-04 16:33 | XMS_ITS | Encounter Summary ---
Author Organization [facility] Address [facility] [place] [address] Care Team Providers Care Student Finance Specialist Name Role Phone Husam Rosas MD Primary Care Provider +1 [phone] Encounter Details Date Type Department Care Team (Late st Contact Info) Description 09/29/2014 Telephone Infectious Disease at [facility] [place] [place] [address] Suzie Mars RN Social History Tobacco Use [...] Telephone Encounter - Suzie Mars RN - 09/29/2014 2:12 PM EDT Reviewed note from Katherine Olsen RN written in response to a phone call from Josiane when I was away last week. I had been leaving messages for Josiane to contact me related to a lab she was supposed to have drawn when she was down here for Neuro visit for migraine work- up on 08/27/14. Josiane did not have this lab drawn and has not responded to my phone calls. I left another message today; also sent her a lab slip for VL to be drawn at local hospital Consistently states she is taking medications with maybe a few missed pills here and there; states she does not understand why her VL continues to climb VL 07/15/14 28,213 03/28/14 7,328 12/09/13 66 In the past, I have discussed this with Josiane and stated it appears she may have missed more doses than she is remembering; Josiane vehemently states she has not missed medications documented in this encounter Plan of Treatment Upcoming Encounters Date Type Department Care Team (Late st Contact Info) Description 03/06/2024 1:30 PM EST [place] [address] Satya Wills MD [facility] [place] [address] documented as of this encounter Visit Diagnoses Not on filedocumented in this encounter Care Teams Student Finance Specialist Relationship Specialty Start Date End Date Husam Rosas MD [address] [place] [address] PCP - General 01/19/10 01/22/17 documented as of this encounter
--- OUTSIDE RECORDS SUMMARY | 2023-12-04 16:33 | XMS_ITS | Encounter Summary ---
Author Organization [facility] Address [facility] [place] [address] Care Team Providers Care Car Rental Clerk Name Role Phone Husam Rosas MD Primary Care Provider [phone] [phone] Reason for Visit * Reason Onset Date Comments Triage 09/01/2014 pt call to danna Allen Encounter Details Date Type Department Care Team (Late st Contact Info) Description 09/01/2014 Telephone [place] [phone] Alicia Allen MD [facility] [place] [address] Triage (pt call to update Dr. Allen) Social History Tobacco Use Types Packs/Day Years [...] encounter Miscellaneous Notes * Telephone Encounter - Luis E Ruiz RN - 09/02/2014 8:51 AM EDT Placed call to with Dr. Allen's input with respect to prazosin. No answer left detailed message for patient on identified voice mail. * Telephone Encounter - Alicia Allen MD - 09/01/2014 3:57 PM EDT Sounds reasonable. We discussed the SE of orthostatic hypotension as a SE of the Prazosin during our appt I will see her at f/u Alicia Allen MD [facility] Neurology * Telephone Encounter - Luis E Ruiz RN - 09/01/2014 2:28 PM EDT Patient calling to give an update at the request of Dr. Allen: Patient is a poor historian reports the following: no reaction after the botox and ONB on 08/27/14 but went to bed and woke up on 08/28/14 with a terrible headache for a couple of days then went away. Patient reports a headache of 3/10 located eyes and forehead states it's not that bad. Patient last took the prazosin last night and will not be taking it again she states it makes me dizzy and I can't see straight and I don't want to getup in the morning. The prazosin was not started until the evening of 08/28/14 because the pharmacy had to order the medication for the patient. Patient also stated that Dr. Allen wanted her to talk to a psychiatrist but she is not at the point where she wants to do that yet. Plan: Implementation Advisor will forward message to Dr. Allen for review and any further recommendations. Implementation Advisor will call patient with recommendations. Patient expressed verbal understanding and agreement with plan. documented in this encounter Plan of Treatment Upcoming Encounters Date Type Department Care Team (Late st Contact Info) Description 03/06/2024 1:30 PM EST Office [place] [address] Satya Wills MD [facility] [place] [address] documented as of this encounter Visit Diagnoses Not on filedocumented in this encounter Care Teams Car Rental Clerk Relationship Specialty Start Date End Date Husam Rosas MD [address] [place] [address] PCP - General 01/19/10 01/22/17 documented as of this encounter
--- OUTSIDE RECORDS SUMMARY | 2023-12-04 16:33 | XMS_ITS | Encounter Summary ---
Author Organization [facility] Address [facility] [place] [address] Care Team Providers Care Vp Information Technology Name Role Phone Husam Rosas MD Primary Care Provider [phone] Reason for Visit * Reason Onset Date Comments Medication Refill 01/05/2015 Encounter Details Date Type Department Care Team (Late st Contact Info) Description 01/05/2015 Telephone [place] [phone] Drew Heaton MD [facility] [place] [address] Medication Refill Social History Tobacco Use Types [...] Telephone Encounter - Suzie Mars RN - 01/05/2015 3:13 PM EST Josiane called today; she states she is worried about diabetes; I reviewed labs and reassured her the last random glucose in June was WNL She is also complaining of trouble swallowing and states well, I've smoked since I was 17, so I'm worried the swallowing problem is because of my smoking Josiane has an donald't with Dr Heaton on 01/28/15 coordinated with an appointment with Dr Wills; she would like to have labs drawn at her home hospital before that appointment and requests that I send labreqs to [facility]. Discussed with Dr Heaton and will send reqs for CBC, CD4, CMP, T4, VL Speech slow and measured; some slurring of words with volume of speech falling off, so I could not hear her at times. documented in this encounter Plan of Treatment Upcoming Encounters Date Type Department Care Team (Late st Contact Info) Description 03/06/2024 1:30 PM EST [place] [address] Satya Wills MD [facility] [place] [address] documented as of this encounter Results * T4 Total (02/10/2015 4:58 PM EST) T4 Total 5.2 5.1 - 10.8 mcg/dL CERNER MILLENNIUM Comment: Reference Range: [facility] Blood: ??6.9-14.4 mcg/dL Females: ??7.2-14.2 mcg/dL Pediatric ranges: ??Interpret with caution-ranges have not been verified Blood specimen (specimen) 02/10/2015 4:58 PM EST 02/10/2015 5:09 PM EST Narrative Resulting Agency Comment Spec In Lab Drew Heaton MD CHEMISTRY ORDERABLES CERNER MILLENNIUM * (ABNORMAL) CD4 (02/10/2015 4:58 PM EST) CD3% 94(H) 55 - 82 % CERNER MILLENNIUM CD3 ABS 2,243 731 - 2,438 /mcl CERNER MILLENNIUM CD 4% 8(L) 35 - 61 % CERNER MILLENNIUM CD 4ABS 195(L) 503 - 1,736 /mcl CERNER MILLENNIUM Comment: This assay is a dual platform [...] CD4, CD8, CD19, CD16+56) White Blood Cell 4.5 4.0 - 10.0 x10(3)/mcL CERNER MILLENNIUM Lymph % 53.2 % CERNER MILLENNIUM Lymphocytes Abs 2.4 1.0 - 3.6 x10(3)/mcL CERNER MILLENNIUM Blood specimen (specimen) 02/10/2015 4:58 PM EST 02/10/2015 5:09 PM EST Narrative Resulting Agency Comment Spec In Lab Drew Heaton MD HEMATOLOGY ORDERABLE S CERNER MILLENNIUM * (ABNORMAL) Comprehensive metabolic panel (non-fasting) (02/10/2015 4:58 PM EST) [facility] Glucose 92 65 - 199 mg/dL CERNER MILLENNIUM Comment:Diabetes: >=200 mg/d L plus symptoms Blood Urea Nitrogen 12 8 - 18 mg/dL CERNER MILLENNIUM Creatinine 0.73 0.70 - 1.20 mg/dL CERNER MILLENNIUM Comment: Please note that the pediatric reference intervals supplied above were not validated at [facility]. Results from pediatric patients should be interpreted in conjunction to the patient's age, height and muscle mass. Sodium 142 135 - 145 mmol/L CERNER MILLENNIUM Potassium 4.0 3.5 - 5.0 mmol/L CERNER MILLENNIUM Comment: Please note: ??Patients with WBC >100,000 may have falsely elevated Potassium levels. ??For accurate Potassium quantification in these patients send serum separator tube (gold top) for subsequent determinations. ??Contact the Clinical Chemistry Laboratory if there are any questions. Chloride 102 98 - 107 mmol/L CERNER MILLENNIUM Carbon Dioxide 24 22 - 31 mmol/L CERNER MILLENNIUM Anion Gap 16(H) 5 - 15 mmol/L CERNER MILLENNIUM Calcium 9.2 8.5 - 10.5 mg/dL CERNER MILLENNIUM Protein, Total 7.6 6.1 - 8.0 gm/dL CERNER MILLENNIUM Albumin 4.4 3.2 - 5.2 gm/dL CERNER MILLENNIUM Aspartate Aminotransferase 120(H) 0 - 30 unit/L CERNER MILLENNIUM Alanine Aminotransferase 130(H) 0 - 30 unit/L CERNER MILLENNIUM Alkaline Phosphatase 78 40 - 104 unit/L CERNER MILLENNIUM Bilirubin, Total 0.6 0.2 - 1.3 mg/dL CERNER MILLENNIUM Bilirubin, Direct 0.2 0.0 - 0.3 mg/dL CERNER MILLENNIUM Est Glomerular Filtration Rate >60 >=60 CERNER MILLENNIUM Comment: This estimated GFR (eGFR) value was [...] the following links into your internet browser. http://Addictive/DHnkdep [email or web address]/[email or web address] Blood specimen (specimen) 02/10/2015 4:58 PM EST 02/10/2015 5:09 PM EST Narrative Resulting Agency Comment Spec In Lab Drew Heaton MD CHEMISTRY ORDERABLES CERJANIYA CLIFFORD documented in this encounter Visit Diagnoses Diagnosis HIV disease Human immunodeficiency virus [HIV] disease Thyroid dysfunction Unspecified disorder of thyroid documented in this encounter Care Teams Vp Information Technology Relationship Specialty Start Date End Date Husam Rosas MD [address] [place] [address] PCP - General 01/19/10 01/22/17 documented as of this encounter
--- OUTSIDE RECORDS SUMMARY | 2023-12-04 16:33 | XMS_ITS | Encounter Summary ---
Author Organization [facility] Address [facility] [place] [address] Care Team Providers Care Mechanical Maintenance Foreman Name Role Phone Husam Rosas MD Primary Care Provider [phone] [phone] Encounter Details Date Type Department Care Team (Late st Contact Info) Description 09/26/2014 Telephone Infectious Disease at [facility] [place] [phone] Katherine Olsen RN Social History Tobacco Use Types Packs/Day [...] encounter Miscellaneous Notes * Telephone Encounter - Katherine Olsen, MEIR - 09/26/2014 3:51 PM EDT Call from Josiane who requested explanation of recent labs. She had many questions about other labworkshe wanted done which pertained to her neurologist, Dr. Wills. I asked her to speak with his office to see about getting that done. She seemed to have a difficult time focusing on our conversation.She was unhappy about her VL being increased. She says, everyone is saying it is my fault that my VL went up. I've been taking my pills. We discussed the possible reasons for an unsuppressed viral load. She does admit to missing a very few doses months ago. She will call Dr. Wills's office and I encouraged Josiane to call her nurse Suzie, who is on vacation, on Monday if she has further questions. She agreed. documented in this encounter Plan of Treatment Upcoming Encounters Date Type Department Care Team (Late st Contact Info) Description 03/06/2024 1:30 PM EST [place] [address] Satya Wills MD [facility] [place] [address] documented as of this encounter Visit Diagnoses Not on filedocumented in this encounter Care Teams Mechanical Maintenance Foreman Relationship Specialty Start Date End Date Husam Rosas MD [address] [place] [address] PCP - General 01/19/10 01/22/17 documented as of this encounter
--- OUTSIDE RECORDS SUMMARY | 2023-12-04 16:33 | XMS_ITS | Encounter Summary ---
Author Organization [facility] Address [facility] [place] [address] Care Team Providers Care Engineering Analyst Name Role Phone Husam Rosas MD Primary Care Provider +1 [phone] Reason for Visit * Reason Comments Follow-up Encounter Details Date Type Department Care Team (Latest Contact Info) Description 11/27/2013 2:45 PM EDT Follow-[place] [address] Drew Heaton MD [facility] [place] [address] Human immunodeficiency virus (HIV) disease (Primary Dx); Seizure disorder; Encounter for therapeutic drug level monitoring Discharge Disposition: Home Social History Tobacco Use Types Packs/Day Years Used Date Smoking Tobacco: Some Days Cigarettes Smokeless Tobacco: Never Alcohol Use Standard Drinks/Week Comments No 0 (1 standard drink = 0.6 oz pur e alcohol) Currently going to Sex and Gender Information Value Date Recorded Sex Assigned at Not on file Gender Identity Not on file Sexual Orientation Not on file documented as of this encounter Last Filed Vital Signs Vital Sign Reading Time Taken Comments Blood Pressure 136/88 11/27/2013 2:49 PM EDT Pulse 76 11/27/2013 2:49 PM EDT Temperature 36.8 ??C (98.3 ??F) 11/27/2013 2:49 PM ED T Respiratory Rate 16 11/27/2013 2:49 PM EDT Oxygen Saturation - - Inhaled Oxygen Concentration - - Weight 88.9 kg (196 lb) 11/27/2013 2:49 PM EDT Height - - Body Mass Index 31.16 09/11/2013 3:02 PM EDT documented in this encounter Progress Notes * Drew Heaton MD - 11/27/2013 2:55 PM EDT This is a scheduled appointment for an HIV infected woman last seen by me in clinic three months ago, since when she has actually continued to do well save that she did experience significant trauma (hit head, bit tongue) when she suffered a generalized seizure one week ago. She also complains of siva pruritic rash on her right arm that has been present for some number of months. Blood pressure 136/88, pulse 76, temperature 36.8 ??C (98.3 ??F), resp. rate 16, weight 88.905 kg (196 lb), last menstrual period 11/26/2010. Overweight woman in no apparent distress. NC/AT. EOMI. Skin without rash save for right arm with multiple small nodules with excoriations. Throat benign. Heart RRR no m/r/g. Lungs CTA. Abdomen benign. Neuro. grossly nonfocal. Baseline Data Serologies/Screening: Monitoring HIV DX: /1990 CDQ : 12/31/2010 Family Planning: Routine nutritional eval: Ophtho exam: Dental eval: Adherence score: Hep A IgG: Hep B sAb: 02/08/2013 Neg Hep B cAb: (IgG): Hep B sA02/08/2013 Neg eAg: eAb: DNA PCR: Hep C Ig02/08/2013 Neg Genotype: Viral load: Anyt hx rx? : Y/N free text dates AFP: U/S: Liver Study: Toxo IgG: CMV IgG: RPR Titers: 12/31/2010 03/05/2008 10/31/2003 PPD: 03/02/2012 neg CXR: Rx status: Cervical pap: 03/04/2013 Normal 03/02/2012 Normal 08/11/2010 Normal Vag colpo: Last pelvic: Candy [employer] exam: 05/27/2009 Anal pap: Rectal colpo: CD4: 11/27/2013 09/11/2013 286 10 06/12/2013 296 11 Chris: 11/27/2013 VL: 11/27/2013 09/11/2013 5480 06/12/2013 59 Max VL: 04/30/2003 28,700 Resist assays: 02/08/2013 no resistance mutations 07/26/2011 no resistance mutations 10/01/2010 no resistance Weights: 12/31/2010 97.977 12/16/2009 91.17 05/27/2009 83.91 Lipids: Total chol: 01/16/2009 207 LDL: 01/16/2009 115 HDL: 01/16/2009 68 Tri01/16/2009 121 Vaccines Influenza: 01/27/2013 Pneumovax: 09/16/2009 08/17/2001 Td: Tdap: 10/03/2008 HepA: HepB 20: 12/25/2002 HepB 40: HPV: Twinrix: Assessment and Plan: 1. HIV. Was doing well on current regimen after addition of tenofovir, but with persistent elevatedviral load, unremarkable genotype in February, and most recently again in January 2013. When seen in December 2010 she had again been on the correct regimen for 6 months and had a viral load down to 332, but this was again elevated to 19k in May 2011, followed by 1,518 6 weeks later after adherence counselling and then 627 in September but then persistently high since then (most recently 5480in August 2013). Phenotype 10/01/10 was again without resistance, as was a genotype in January 2013. Labs for safety and efficacy every 3-4 months (including today) as long as all goes well. I remain very perplexed by this and have been unable to sort out adherence issues -but happily her nausea and vomiting are now much better, so repeat today and base further plans thereon. 2. Adherence. She states that she has been 100% adherent since last seen, and I reinforced the importance of remaining so. 3. Chemoprophylaxis. None indicated by CD4. 4. Immunoprophylaxis. Up to date, save needs flu vaccine. 5. Risk reduction. Not sexually since last seen - she has previously said that she is always safe. 6. Seizure disorder/headaches. She is under the care of Dr. Wills, who she is seeing today. 7. Psychiatric. Her mood is decent. She is again seeing a therapist. 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 Pap smear February 2013 was normal. 9. Obesity. Not addressed today. 10. Hyperlipidemia. Not addressed today. 11. Smoking. Had stopped smoking in February, but is now still smoking. I previously strongly encouraged her to again try stopping and we explored her ambivalnce. Her main drivers' cash clerk to stop is cost so we previously explored how much she would save should she stop; while her main challenge is that her friend Neo smokes. Again addressed by me today, but she remains no more than somewhat contemplative about plans - possibly working with a group of smoking friends on cessation. 12. Rectal bleeding. Better after treatment with nitroglycerin. 13. General health care. Mammogram February 2012 - repeated today. Colonoscopy 04/28/10 revealed multiple polyps so plan was to repeat in three years (2013), which she has scheduled locally. 14. Transaminitis. Significantly worse in 2012, but it turns out she was drinking fairly significantly and has now stopped and they were normal at the last appointment - repeat twice annually. 15. Rash. Unclear to me what this is, so I have suggested that she obtain referral to local Dermatology from Dr. Rosas. Given her relatively low CD4 this could be German scabies, though that It is largely isolated to her one arm would be somewhat unusual. 30 minutes [id number] time spent with the patient, 20 minutes of which was in discussion and counseling about management of HIV. Follow-up in 3-4 months, coordinated with Dr. Wills. documented in this encounter Plan of Treatment Upcoming Encounters Date Type Department Care Team (Late st Contact Info) Description 03/06/2024 1:30 PM EST [place] [address] Satya Wills MD [facility] [place] [address] documented as of this encounter Procedures Procedure Name Priority Date/Time Associated Diagnosis Comments HIV QUANT Routine 11/27/2013 3:26 PM EDT Human immunodeficiency virus (HIV) disease LACOSAMIDE LEVEL Routine 11/27/2013 3:26 PM EDT Seizure disorder Encounter for therapeutic drug level monitoring CD4 Routine 11/27/2013 3:26 PM EDT Human immunodeficiency virus (HIV) disease HEMOGRAM Routine 11/27/2013 3:26 PM EDT Human immunodeficiency virus (HIV) disease DIFFERENTIAL, AUTOMATED Routine 11/27/2013 3:26 PM EDT Human immunodeficiency virus (HIV) disease SYPHILIS ANTIBODY SCREEN WITH REFLEX Routine 11/27/2013 3:26 PM EDT Human immunodeficiency virus (HIV) disease HIV-1 RNA, QUANTITATIVE, PCR Routine 11/27/2013 3:26 PM EDT Human immunodeficiency virus (HIV) disease CBC (WITH DIFF) Routine 11/27/2013 3:26 PM EDT Human immunodeficiency virus (HIV) disease documented in this encounter Results * HIV Quant (11/27/2013 3:26 PM EDT) Pathologist [facility] HIV Viral Load Result (Qualitative) * RESULT: 66 copies/mL * INDICATION FOR STUDY: HIV-1 Infection ANALYSIS: A [...] Administration. Robert Fuentes, Ph.D. Director, Molecular Pathology [facility] Comment: [VERIFIED DATE]12.09.13 Verified By:Fely Werner I (Electronic Signature) Blood specimen (specimen) 11/27/2013 3:26 PM EDT 12/02/2013 8:47 AM EDT Narrative Resulting Agency Comment Spec In Lab Drew Heaton MD HEMATOLOGY ORDERABLE S [facility] * Differential, Automated (11/27/2013 3:26 PM EDT) [facility] Neutrophil % 46.3 34.0 - 71.0 % CERNER MILLENNIUM Neutrophil Absolute 2.66 1.50 - 6.30 x10(3)/mcL CERNER MILLENNIUM Lymph % 43.5 19.0 - 53.0 % CERNER MILLENNIUM Lymphocytes Abs 2.5 1.0 - 3.6 x10(3)/mcL CERNER MILLENNIUM Monocyte % 9.1 4.0 - 13.0 % CERNER MILLENNIUM Monocyte Abs 0.5 0.2 - 1.0 x10(3)/mcL CERNER MILLENNIUM Eos % 0.9 0.0 - 7.0 % CERNER MILLENNIUM Eosinophils Abs 0.0 0.0 - 0.5 x10(3)/mcL CERNER MILLENNIUM Basophil % 0.2 0.0 - 2.0 % CERNER MILLENNIUM Baso Absolute 0.0 0.0 - 0.2 x10(3)/mcL CERNER MILLENNIUM Immature Gran % 0.00 0.00 - 0.66 % CERNER MILLENNIUM Comment: Immature granulocytes(IG's)percentage and absolute count will include metamyelocytes, myelocytes, and promyelocytes. Blood smears from CBCs yielding IG's will be scanned manually for concordance. If this scan disagrees with the automated IG or if promyelocytes are noted, a manual differential will be performed. Immature Gran Absolute 0.00 0.00 - 0.05 x10(3)/mcL CERNER MILLENNIUM Blood specimen (specimen) 11/27/2013 3:26 PM EDT 11/27/2013 3:45 PM EDT Narrative Resulting Agency Comment Spec In Lab Drew Heaton MD HEMATOLOGY ORDERABLE S CHIARA ARAYAENNIUM * (ABNORMAL) Hemogram (11/27/2013 3:26 PM EDT) White Blood Cell 5.7 4.0 - 10.0 x10(3)/mc L CERNER MILLENNIUM Red Blood Cell 4.09 3.93 - 5.22 x10(6)/mc L CERNER MILLENNIUM Hemoglobin 14.8 11.2 - 15.7 gm/dL CERNER MILLENNIUM Hematocrit 41.5 34.0 - 45.0 % CERNER MILLENNIUM Mean Cell Volume 101.5(H) 79.0 - 94.0 fL CERNER MILLENNIUM Mean Cell Hemoglobin 36.2(H) 26.6 - 32.2 pg CERNER MILLENNIUM Mean Cell Hemoglobin Concentration 35.7 32.0 - 36.5 gm/dL CERNER MILLENNIUM Platelet 189 145 - 370 x10(3)/mc L CERNER MILLENNIUM RDW Standard Deviation 49.9(H) 35.0 - 46.0 fL CERNER MILLENNIUM RDW coefficient of variation 13.6 10.9 - 14.4 % CERNER MILLENNIUM Mean Platelet Volume 9.3 9.0 - 12.0 fL CERNER MILLENNIUM Blood specimen (specimen) 11/27/2013 3:26 PM EDT 11/27/2013 3:45 PM EDT Narrative Resulting Agency Comment Spec In Lab Drew Heaton MD HEMATOLOGY ORDERABLE S Performing Organization Address City/[facility]/ZIP Co de Phone Number CHIARA SEBASTIANIUM * (ABNORMAL) Lacosamide Level (11/27/2013 3:26 PM EDT) Lacosamide Level (JUNE) 12.1(H) 1.0 - 10.0 mcg/mL CERNER MILLENNIUM Comment: Test Performed by: [place] [address] Band Aid Machine Operator: Meg Beasley, Ph.D. Blood specimen (specimen) 11/27/2013 3:26 PM EDT 11/28/2013 8:28 AM EDT Narrative Resulting Agency Comment Spec In Lab Drew Heaton MD LAB SEND OUT ORDERAB LES CHIARA CLIFFORD * Syphilis Antibody, IgG (11/27/2013 3:26 PM EDT) Syphilis IgG Neg Neg CERNER MILLENNIUM Blood specimen (specimen) 11/27/2013 3:26 PM EDT 11/28/2013 6:35 AM EDT Narrative Resulting Agency Comment Spec In Lab Drew Heaton MD CHEMISTRY ORDERABLES CERJANIYA ARAYAENNIUM * (ABNORMAL) CD4 (11/27/2013 3:26 PM EDT) CD3% 93(H) 55 - 82 % CERNER MILLENNIUM CD3 ABS 2316 731 - 2438 /mcl CERNER MILLENNIUM CD 4% 10(L) 35 - 61 % CERNER MILLENNIUM CD 4ABS 249(L) 503 - 1736 /mcl CERNER MILLENNIUM Comment: This assay is [...] CD4, CD8, CD19, CD16+56) White Blood Cell 5.7 4.0 - 10.0 x10(3)/mcL CERNER MILLENNIUM Lymph % 43.5 19.0 - 53.0 % CERNER MILLENNIUM Lymphocytes Abs 2.5 1.0 - 3.6 x10(3)/mcL CERNER MILLENNIUM Blood specimen (specimen) 11/27/2013 3:26 PM EDT 11/27/2013 3:45 PM EDT Narrative Resulting Agency Comment Spec In Lab Drew Heatno MD HEMATOLOGY ORDERABLE S CHIARA SEBASTIANIUM documented in this encounter Visit Diagnoses Diagnosis Human immunodeficiency virus (HIV) disease- Primary Human immunodeficiency virus [HIV] disease Seizure disorder Unspecified epilepsy without mention of intractable epilepsy Encounter for therapeutic drug level monitoring Encounter for therapeutic drug monitoring documented in this encounter Care Teams Engineering Analyst Relationship Specialty Start Date End Date Husam Rosas MD [address] [place] [address] PCP - General 01/19/10 01/22/17 documented as of this encounter
--- OUTSIDE RECORDS SUMMARY | 2023-12-04 16:33 | XMS_ITS | Encounter Summary ---
Author Organization [facility], Located Within [facility] [place] [address] Care Team Providers Care Bottom Turner Name Role Phone Husam Rosas MD Primary Care Provider [phone] [phone] Encounter Details Date Type Department Care Team (Latest Contact Info) Description 02/10/2015 4:30 PM EST Laboratory Appointment Lab [address] [place] [phone] HIV disease; Thyroid dysfunction; Partial symptomatic epilepsy with complex partial seizures, [...] 1:30 PM EST [place] [phone] Satya Wills MD [facility] [place] [address] Pending Results Name Type Priority Associated Diagnoses Date /Time HIV-1 RNA, quantitative, PCR Lab Routine HIV disease 02/10/2015 4:42 PM EST documented as of this encounter Procedures Procedure Name Priority Date/Time Associated Diagnosis Comments MISCELLANEOUS LAB REQUEST Routine 02/10/2015 4:58 PM EST Partial symptomatic epilepsy with complex partial seizures, intractable, without status epilepticus HIV QUANT Routine 02/10/2015 4:58 PM EST HIV disease [facility] Routine 02/10/2015 4:58 PM EST LACOSAMIDE LEVEL Routine 02/10/2015 4:58 PM EST CD4 Routine 02/10/2015 4:58 PM EST HIV disease HEMOGRAM Routine 02/10/2015 4:58 PM EST Partial symptomatic epilepsy with complex partial seizures, intractable, without status epilepticus DIFFERENTIAL, AUTOMATED Routine 02/10/2015 4:58 PM EST HIV disease HIV-1 RNA, QUANTITATIVE, PCR Routine 02/10/2015 4:58 PM EST HIV disease SEDIMENTATION RATE Routine 02/10/2015 4: 58 PM EST Partial symptomatic epilepsy with complex partial seizures, intractable, without status epilepticus CBC (WITH DIFF) Routine 02/10/2015 4:58 PM EST Partial symptomatic epilepsy with complex partial seizures, intractable, without status epilepticus CBC (WITH DIFF) Routine 02/10/2015 4:58 PM EST HIV disease T4 TOTAL Routine 02/10/2015 4:58 PM EST Thyroid dysfunction HEPATIC FUNCTION PANEL Routine 5 4:58 PM EST Partial symptomatic epilepsy with complex partial seizures, intractable, without status epilepticus COMPREHENSIVE METABOLIC PANEL Routine 02/10/2015 4:58 PM EST HIV disease BASIC METABOLIC PANEL Routine 02/10/2015 4:58 PM EST Partial symptomatic epilepsy with complex partial seizures, intractable, without status epilepticus documented in this encounter Results * [facility] (02/10/2015 4:58 PM EST) [facility]LEX[facility] 2 [facility] Comment: FLEXITEST 2 TESTS RESULTS--------UNITS--REF. RANGE--- Eslicarbazepine ?14.0 ? mcg/mL ? No established therapeutic range; individual patient ? concentrations should be evaluated in context of ? patient's clinical condition or prior concentration. ? Trough plasma levels following doses of 400 - ? 2400 mg/day, averaged 2 - 28 mcg/mL. Maximum plasma ? concentrations following 2400 mg/day dosages averaged ? 55 mcg/mL. Test performed by: ? [employer] ? [address] ? [place] [address] ? Phone: ??[phone] ? [phone] Navjot Gomez M.D., FCAP., [employer]ched [employer] Processor Test Reported by [employer], [facility], [address] [place] [address] Evan Currie M.D., Ph.D., Director of Laboratories , [place] [id number] Specimen of unknown material (specimen) Other / Unknown 02/10/2015 4:58 PM EST 02/11/2015 11:42 AM EST Narrative Resulting Agency Comment Spec In Lab Satya Wills MD LAB SEND OUT ORDERAB LES [facility] CLIFFORD * Lacosamide Level (02/10/2015 4:58 PM EST) Lacosamide Level (JUNE) 2.2 1.0 - 10.0 mcg/mL [facility] CLIFFORD Comment: Test Performed by: [place] [address] [employer]ched [employer] Processor: Meg Cordova, Ph.D. Blood specimen (specimen) Venous Draw / Unknown 02/10/2015 4:58 PM EST 02/11/2015 8:43 AM EST Narrative Resulting Agency Comment Spec In Lab Satya Wills MD LAB SEND OUT ORDERAB LES CERJANIYA ARAYAENNIUM * (ABNORMAL) Hemogram (02/10/2015 4:58 PM EST) White Blood Cell 4.5 4.0 - 10.0 x10(3)/mc L [facility] MILLENNIUM Red Blood Cell 4.19 3.93 - 5.22 x10(6)/mc L [facility] MILLENNIUM Hemoglobin 15.5 11.2 - 15.7 gm/dL [facility] MILLENNIUM Hematocrit 42.7 34.0 - 45.0 % [facility]ERNER MILLENNIUM Mean Cell Volume 101.9(H) 79.0 - 94.0 fL [facility] MILLENNIUM Mean Cell Hemoglobin 37.0(H) 26.6 - 32.2 pg [facility] MILLENNIUM Mean Cell Hemoglobin Concentration 36.3 32.0 - 36.5 gm/dL [facility]ERNER MILLENNIUM Platelet 116(L) 145 - 370 x10(3)/mc L [facility] MILLENNIUM RDW Standard Deviation 49.9(H) 35.0 - 46.0 fL [facility] MILLENNIUM RDW coefficient of variation 13.3 10.9 - 14.4 % [facility] MILLENNIUM Mean Platelet Volume 10.0 9.0 - 12.0 fL [facility] MILLENNIUM Blood specimen (specimen) 02/10/2015 4:58 PM EST 02/10/2015 5:09 PM EST Narrative Resulting Agency Comment Spec In Lab Satya Wills MD HEMATOLOGY ORDERABLE S [facility] CLIFFORD * HIV Quant (02/10/2015 4:58 PM EST) HIV Viral Load Result (Qualitative) * RESULT: 42664 copies/mL * INDICATION FOR STUDY: HIV-1 Infection [...] Administration. Robert Fuentes, Ph.D. Director, Molecular Pathology [facility] Comment: [VERIFIED DATE]02.13.15 Verified By:Constance Hightower (Electronic Signature) Blood specimen (specimen) 02/10/2015 4:58 PM EST 02/12/2015 1:14 PM EST Narrative Resulting Agency Comment Spec In Lab Drew Heaton MD HEMATOLOGY ORDERABLE S [facility] MILLENNIUM * Differential, Automated (02/10/2015 4:58 PM EST) Neutrophil % 39.0 % [facility] MILLENNIUM Neutrophil Absolute 1.76 1.50 - 6.30 x10(3)/mcL [facility] MILLENNIUM Lymph % 53.2 % [facility]ERNER MILLENNIUM Lymphocytes Abs 2.4 1.0 - 3.6 x10(3)/mcL [facility]ERN[facility] MILLENNIUM Monocyte % 6.9 % CERNER MILLENNIUM Monocyte Abs 0.3 0.2 - 1.0 x10(3)/mcL [facility] MILLENNIUM Eos % 0.7 % [facility]ERNER MILLENNIUM Eosinophils Abs 0.0 0.0 - 0.5 x10(3)/mcL [facility] MILLENNIUM Basophil % 0.0 % [facility]ERNER MILLENNIUM Baso Absolute 0.0 0.0 - 0.2 x10(3)/mcL [facility] MILLENNIUM Immature Gran % 0.20 % [facility]ERN ER MILLENNIUM Comment: Immature granulocytes(IG's)percentage and absolute count will include metamyelocytes, myelocytes, and promyelocytes. Blood smears from CBCs yielding IG's will be scanned manually for concordance. If this scan disagrees with the automated IG or if promyelocytes are noted, a manual differential will be performed. Immature Gran Absolute 0.01 0.00 - 0.05 x10(3)/mcL [facility] Blood specimen (specimen) 02/10/2015 4:58 PM EST 02/10/2015 5:09 PM EST Narrative Resulting Agency Comment Spec In Lab Drew Heaton MD HEMATOLOGY ORDERABLE S Performing Organization Address [facility] Co de Phone Number [facility] * Miscellaneous Lab request (02/10/2015 4:58 PM EST) Label Request received in lab. [facility] Blood specimen (specimen) 02/10/2015 4:58 PM EST 02/10/2015 5:09 PM EST Narrative Resulting Agency Comment Spec In Lab Satya Wills MD LAB SEND OUT ORDERAB LES Performing Organization Address [facility] Co de Phone Number [facility] * Sedimentation rate (02/10/2015 4:58 PM EST) Sedimentation Rate Automated 10 0 - 20 mm/hr [facility] Blood specimen (specimen) 02/10/2015 4:58 PM EST 02/10/2015 5:09 PM EST Narrative Resulting Agency Comment Spec In Lab Satya Wills MD HEMATOLOGY ORDERABLE S Performing Organization Address [facility] Co de Phone Number [facility] * (ABNORMAL) Basic Metabolic Panel (non-fasting) (02/10/2015 4:58 PM EST) Glucose 92 65 - 199 mg/dL [facility] Comment:Diabetes: >=200 mg/d L plus symptoms Blood Urea Nitrogen 12 8 - 18 mg/dL [facility] Creatinine 0.73 0.70 - 1.20 mg/dL [facility] Comment: Please note that the pediatric reference intervals supplied above were not validated at [facility]. Results from pediatric patients should be interpreted [...] 9.2 8.5 - 10.5 mg/dL CERNER MILLENNIUM Est Glomerular Filtration Rate [...] the following links into your internet browser. [email or web address] Blood specimen (specimen) 02/10/2015 4:58 PM EST 02/10/2015 5:09 PM EST Narrative Resulting Agency Comment Spec In Lab Satya Wills MD CHEMISTRY ORDERABLES [facility] * (ABNORMAL) Hepatic Function Panel (02/10/2015 4:58 PM EST) Protein, Total 7.6 6.1 - 8.0 gm/dL [facility] MILLENNIUM Albumin 4.4 3.2 - 5.2 gm/dL [facility] MILLENNIUM Aspartate Aminotransferase 120(H) 0 - 30 unit/L [facility] MILLENNIUM Alanine Aminotransferase 130(H) 0 - 30 unit/L [facility] MILLENNIUM Alkaline Phosphatase 78 40 - 104 unit/L [facility] MILLENNIUM Bilirubin, Total 0.6 0.2 - 1.3 mg/dL [facility] MILLENNIUM Bilirubin, Direct 0.2 0.0 - 0.3 mg/dL [facility]ILLENNI[facility] Blood specimen (specimen) 02/10/2015 4:58 PM EST 02/10/2015 5:09 PM EST Narrative Resulting Agency Comment Spec In Lab Satya Wills MD CHEMISTRY ORDERABLES Performing Organization Address [facility] de Phone Number [facility] QUIANA[facility] * T4 Total (02/10/2015 4:58 PM EST) T4 Total 5.2 5.1 - 10.8 mcg/dL [facility] Comment: Reference Range: Cord Blood: ??6.9-14.4 mcg/dL Females: ??7.2-14.2 mcg/dL Pediatric ranges: ??Interpret with caution-ranges have not been verified Blood specimen (specimen) 02/10/2015 4:58 PM EST 02/10/2015 5:09 PM EST Narrative Resulting Agency Comment Spec In Lab Drew Heaton MD CHEMISTRY ORDERABLES Performing Organization Address [facility] de Phone Number CERJANIYA ARAYAENNIUM * (ABNORMAL) CD4 (02/10/2015 4:58 PM EST) [...] metabolic panel (non-fasting) (02/10/2015 4:58 PM EST) [facility] Glucose 92 65 - 199 mg/dL [facility] MILLENNIUM Comment:Diabetes: >=200 mg/d L plus symptoms Blood Urea Nitrogen 12 8 - 18 mg/dL [facility] MILLENNIUM Creatinine 0.73 0.70 - 1.20 mg/dL [facility] MILLENNIUM Comment: Please note that the pediatric reference intervals supplied above were not validated at [facility]. Results from pediatric patients should be interpreted [...] the following links into your internet browser. [email or web address] Blood specimen (specimen) 02/10/2015 4:58 PM EST 02/10/2015 5:09 PM EST Narrative Resulting Agency Comment Spec In Lab Drew Heaton MD CHEMISTRY ORDERABLES [facility] documented in this encounter Visit Diagnoses Diagnosis HIV disease Human immunodeficiency virus [HIV] disease Thyroid dysfunction Unspecified disorder of thyroid Partial symptomatic epilepsy with complex partial seizures, intractable, without status epilepticus documented in this encounter Care Teams Bottom Turner Relationship Specialty Start Date End Date Husam Rosas MD [address] [place] [address] PCP - General 01/19/10 01/22/17 documented as of this encounter
--- OUTSIDE RECORDS SUMMARY | 2023-12-04 16:33 | XMS_ITS | Encounter Summary ---
Author Organization [facility] [place] [address] Care Team Providers Care Travel Med Surg Rn Name Role Phone Husam Rosas MD Primary Care Provider [phone] [phone] Encounter Details Date Type Department Care Team ([facility] st Contact Info) Description 09/26/2013 Telephone Infectious Disease at [facility] [place] [phone] Suzie Mars RN Social History Tobacco Use [...] Telephone Encounter - Suzie Mars RN - 09/26/2013 4:37 PM EDT TC to Josiane to discuss her most recent labs; Josiane claims to be taking all medications regularly; shedoes mention that she is waking up at 4 am about twice a week with a coughing spell that then leadsto vomiting; she has noticed some orange color, which she states looks like the Epzicom. She takes her meds in the evening, around 930 or 10 Denies nausea; states she does not miss any dose of medications after I told her VL elevated and my concerns she may be vomiting her meds , she stated it was not as often as twice a week Josiane agrees to keep a diary documenting the times she vomits She will start to take he HIV meds in the AM documented in this encounter Plan of Treatment Upcoming Encounters Date Type Department Care Team (Late st Contact Info) Description 03/06/2024 1:30 PM EST [place] [address] Satya Wills MD [facility] [place] [address] documented as of this encounter Visit Diagnoses Not on filedocumented in this encounter Care Teams Travel Med Surg Rn Relationship Specialty Start Date End Date Husam Rosas MD [address] [place] [address] PCP - General 01/19/10 01/22/17 documented as of this encounter
--- OUTSIDE RECORDS SUMMARY | 2023-12-04 16:33 | XMS_ITS | Encounter Summary ---
Author Organization [facility] Address [facility] [place] [address] Care Team Providers Care Incinerator Plant Laborer Name Role Phone Husam Rosas MD Primary Care Provider [phone] [phone] Reason for Visit * Reason Onset Date Comments Prior Authorization 04/15/2014 [employer] APPRO CELINE 04/15/14- 02/26/15 Encounter Details Date Type Department Care Team (Late st Contact Info) Description 04/15/2014 [place] [phone] Satya Wills MD [facility] [place] [address] Prior Authorization ([employer] APPROVED 04/15/14- 02/26/15) Social History Tobacco Use Types Packs/Day Years [...] Miscellaneous Notes * Telephone Encounter - Fely Harry LNA - 04/15/2014 1:05 PM EST [employer] APPROVED 04/15/14- 02/26/15 REF # [id number] * Telephone Encounter - Fely Harry LNA - 04/15/2014 8:54 AM EST [employer] FOR [employer] FAXED INSURANCE: [employer] documented in this encounter Plan of Treatment Upcoming Encounters Date Type Department Care Team (Late st Contact Info) Description 03/06/2024 1:30 PM EST [place] [address] Satya Wills MD [facility] [place] [address] documented as of this encounter Visit Diagnoses Not on filedocumented in this encounter Care Teams Incinerator Plant Laborer Relationship Specialty Start Date End Date Husam Rosas MD [address] [place] [address] PCP - General 01/19/10 01/22/17 documented as of this encounter
--- OUTSIDE RECORDS SUMMARY | 2023-12-04 16:33 | XMS_ITS | Encounter Summary ---
Author Organization [facility] Address [facility] [place] [address] Care Team Providers Care Insurance Job Titles Name Role Phone Husam Rosas MD Primary Care Provider +1 [phone] Reason for Visit * Reason Comments Medication Refill Encounter Details Date Type Department Care Team ([facility] Contact Info) Description 11/17/2014 [place] [address] Satya Wills MD [facility] [place] [address] Social History Tobacco Use Types Packs/Day Years [...] Upcoming Encounters Date Type Department Care Team ([facility] Contact Info) Description 03/06/2024 1:30 PM EST Office [place] [address] Satya Wills MD [facility] [place] [place] [address] documented as of this encounter Visit Diagnoses Not on filedocumented in this encounter Care Teams Insurance Job Titles Relationship Specialty Start Date End Date Husam Rosas MD [address] [place] [address] PCP - General 01/19/10 01/22/17 documented as of this encounter
--- OUTSIDE RECORDS SUMMARY | 2023-12-04 16:33 | XMS_ITS | Encounter Summary ---
Author Organization [facility] Address [facility] [place] [address] Care Team Providers Care Dispute Resolution Specialist Name Role Phone Husam Rosas MD Primary Care Provider [phone] [phone] Reason for Visit * Reason Onset Date Comments Medication Refill 08/12/2014 Encounter Details Date Type Department Care Team (Late st Contact Info) Description 08/12/2014 [place] [phone] Drew Heaton MD [facility] [address] INFECTIOUS [place] [address] HIV disease Social History Tobacco Use Types [...] 1:30 PM [place] [address] Satya Wills MD [facility] [address] NEUROLOGY [place] [address] Pending Results Name Type Priority Associated Diagnoses Date /Time HIV-1 RNA, quantitative, PCR Lab Routine HIV disease 02/10/2015 4:42 PM EST Scheduled Orders Name Type Priority Associated Diagnoses Orde r Schedule HIV-1 RNA, quantitative, PCR Lab Routine HIV disease Expected: 08/12/2014 (Approximate), Expires: 08/13/2015 documented as of this encounter Visit Diagnoses Diagnosis HIV disease Human immunodeficiency virus [HIV] disease documented in this encounter Care Teams Dispute Resolution Specialist Relationship Specialty Start Date End Date Husam Rosas MD [address] [place] [address] PCP - General 01/19/10 01/22/17 documented as of this encounter
--- OUTSIDE RECORDS SUMMARY | 2023-12-04 16:33 | XMS_ITS | Encounter Summary ---
Author Organization [facility]ly [facility] [place] [address] Care Team Providers Care Rn Acute Dialysis Name Role Phone Husam Rosas MD Primary Care Provider [phone] [phone] Encounter Details Date Type Department Care Team (Late st Contact Info) Description 11/27/2013 3:15 PM EDT [place] [phone] Satya Wills MD [facility] [place] [address] Epilepsy (Primary Dx) Discharge Disposition: Home Social History Tobacco Use [...] Sign Reading Time Taken Comments Blood Pressure 127/80 11/27/2013 3:37 PM EDT Pulse 80 11/27/2013 3:37 PM EDT Temperature - - Respiratory Rate - - Oxygen Saturation - - Inhaled Oxygen Concentration - - Weight 88.9 kg (196 lb) 11/27/2013 3:37 PM EDT Height 168.9 cm (5' 6.5) 11/27/2013 3:37 PM EDT Body Mass Index 31.16 11/27/2013 3:37 PM EDT documented in this encounter Patient Instructions * Patient Instructions* Satya Wills MD - 11/27/2013 4:23 PM EDT It seems that seizures show worsening, and you have had a rather severe seizure I would like to start Aptiom, a new medication that you have not been on before, in addition to what you're already taking. It may take some time to get this authorized, as with any new medication All the usual warning apply of side effects including dizziness lightheadedness and rash. Your blood tests today so far look good but not everything is back. After you have been on the medication for a month, please call. We can go up on the dose. I would like to see you back in 2 months. Satya Wills MD Department [place] [address] Pager: [phone], #[phone] Email: [email or web address] documented in this encounter Progress Notes * Satya Wills MD - 11/27/2013 4:15 PM EDT Chief Complaint: Epilepsy. History or Present Illness: [...] somewhat less frequent than before. Interval history: She is doing rather better. She stopped taking Lamictal, and felt better. Her skin was also better. She continues to have daily chronic headaches with daily sharp shooting pains on the right, and nausea, about once a week. She still complains of poor sleep. Seizure control appeared improved, however, she recently had a severe seizure with falling, cuttingher head,and bruising her arm. She thinks she may have had a few smaller ones as well. medical history: Patient Active Problem List Diagnosis Code ??? 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 HIV disease 042 ??? Dyslipidemia 272.4 ??? Migraine 346.90 ??? Obesity 278.00 ??? Depression 311 ??? Fissure in ano 565.0 ??? Hemorrhoids 455.6 Review of systems: She is eating all right. Sleep is disturbed her bad dreams. Bowel and bladder function are unremarkable. Physical Examination: BP 127/80 Pulse 80 Ht 168.9 cm (5' 6.5) Wt 88.905 kg (196 lb) BMI 31.16 kg/m2 LMP 11/26/2010 Head, eyes, ears, nose, and throat were normal,except for a significant contusion on the left side of the head Lungs are clear. Heart was normal. Extremities were unremarkable, except for a pruritic rash and bruising of the right arm. Her mood was good and her speech was normal. At baseline her speech is little slow, and slightly pressured but I think it is normal for her. There was minimal external deviation of the right eye as previously noted. It seems to be getting better. Cranial nerves were otherwise unremarkable. Strength was normal. There is some tightness of oral and oropharyngeal musculature giving her tightness around the mouth and slightly strained speech. This is a little more noticeable than before Coordination remains mildly impaired. Reflexes were brisk. Sensation was normal. Her gait was stable. Medications: Current Outpatient Prescriptions Medication Sig Dispense Refill ? ? clonazePAM (KLONOPIN) 1 mg tablet Take 1 tab by mouth in am & 2 tabs in pm on daily 90 tablet 5 ??? VIREAD 300 mg tablet take 1 tablet by mouth once daily 30 tablet 5 ??? RITONAVIR 100 mg tablet take 1 tablet by mouth once daily 30 tablet 5 ??? hydrOXYzine (VISTARIL) 25 mg capsule take 1 capsule by mouth twice a day 60 capsule 3 ??? meloxicam (MOBIC) 7.5 mg tablet take 1 tablet by mouth once daily 30 tablet 3 ??? VIMPAT 200 mg Tab take 1 tablet by mouth twice a day 60 tablet 5 ??? atazanavir (REYATAZ) 300 mg capsule Take 1 capsule by mouth daily. 30 capsule 5 ??? abacavir-lamiVUDine (EPZICOM) 600-300 mg per tablet Take 1 tablet by mouth daily. 30 tablet 5 ??? albuterol (PROVENTIL HFA;VENTOLIN HFA) 90 mcg/Actuation inhaler Inhale 2 puffs into the lungs every 4 hours as needed. Use with spacer ??? polyethylene glycol (MIRALAX) 17 gram/dose powder Take 17 g by mouth 2 times daily. ??? Multivitamins with Iron Tab Take 1 tablet by mouth daily. 30 tablet 11 ??? prochlorperazine (COMPAZINE) 10 mg tablet Take 10 mg by mouth 3 times daily as needed. ??? [DISCONTINUED] nitroGLYcerin 0.2% Oint Place 1 Application rectally 3 times daily. 30 g 3 Laboratory Studies: Blood tests ordered by Dr. Heaton today Impression: The situation remains rather unsatisfactory 1. She is probably still having complex partial Seizures,and recently had one of the large ones that were causing falls and injuries. As noted earlier, we have failed on 2 occasions in spite of extensive inpatient video- EEG recording to capture any seizures since she had surgery. This was in spiteof taking her off of all antiepileptic medication. There is some doubt in my mind as to whether allthe events that she is now having are epileptic, although her son's description was very convincing. It is also possible that some of her seizures were related to alcohol withdrawal. She denies drinking for the past yearThe trial of clobazam unfortunately resulted in an allergic reaction and she isback on the combination of Vimpat and Klonopin.in view of recent seizure causing injury, I am goingto start her on the new antiepileptic drug Aptiom which is related carbamazepine without being a significant enzyme inducer 2. Headaches are still not doing well. We have not done well with multiple attempts at prophylacticand symptomatic treatment. I am inclined to just leave her on hydroxyzine and meloxicam for now. 3. Other medical problems include irritable bowel syndrome, hemorrhoids, and the chronic HIV infection. Those appear to be stable. 4. Psychiatrically she seems to be doing well. She still getting counseling. Her mood seems better.She has friends in the community and says that she gets out of the house for walks. Her son visit regularly. Thank you for this consultation. I will see her back in 2-3 months, on the same day as her followup with infectious disease. Satya Wills MD [place] [address] Pager: [phone], #[phone] Email: [email or web address]: ROSA ROSAS MD documented in this encounter Plan of Treatment Upcoming Encounters Date Type Department Care Team (Late st Contact Info) Description 03/06/2024 1:30 PM EST Office [place] [address] Satya Wills MD [facility] [place] [address] documented as of this encounter Visit Diagnoses Diagnosis Epilepsy- Primary Unspecified epilepsy without mention of intractable epilepsy documented in this encounter Care Teams Rn Acute Dialysis Relationship Specialty Start Date End Date Husam Rosas MD [address] [place] [address] PCP - General 01/19/10 01/22/17 documented as of this encounter
--- OUTSIDE RECORDS SUMMARY | 2023-12-04 16:33 | XMS_ITS | Encounter Summary ---
Author Organization [facility] [place] [address] Care Team Providers Care Structural Steel Erector Name Role Phone Husam Rosas MD Primary Care Provider [phone] [phone] Reason for Visit * Reason Comments Medication Refill Encounter Details Date Type Department Care Team ([facility] Contact Info) Description 05/18/2014 [place] [address] Satya Wills MD [facility] [place] [place] [address] Social History Tobacco Use Types Packs/Day Years [...] Upcoming Encounters Date Type Department Care Team ([facility] Contact Info) Description 03/06/2024 1:30 PM EST Office [place] [address] Satya Wills MD [facility] [place] [address] documented as of this encounter Visit Diagnoses Not on filedocumented in this encounter Care Teams Structural Steel Erector Relationship Specialty Start Date End Date Husam Rosas MD [address] [place] [address] PCP - General 01/19/10 01/22/17 documented as of this encounter
--- OUTSIDE RECORDS SUMMARY | 2023-12-04 16:33 | XMS_ITS | Encounter Summary ---
Author Organization [facility] [place] [address] Care Team Providers Care Boiler Operator Helper Name Role Phone Husam Rosas MD Primary Care Provider [phone] [phone] Reason for Visit * Reason Onset Date Comments Medication Refill 09/05/2014 Encounter Details Date Type Department Care Team (Late Contact Info) Description 09/05/2014 [place] [address] Satya Wills MD [facility] [place] [address] Social History Tobacco Use Types Packs/Day Years [...] 1:30 PM EST [place] [address] Satya Wills MD [facility] [place] [address] documented as of this encounter Visit Diagnoses Not on filedocumented in this encounter Care Teams Boiler Operator Helper Relationship Specialty Start Date End Date Husam Rosas MD [address] [facility] [place] [address] PCP - General 01/19/10 01/22/17 documented as of this encounter
--- OUTSIDE RECORDS SUMMARY | 2023-12-04 16:33 | XMS_ITS | Encounter Summary ---
Author Organization [facility] Address [facility] [place] [address] Care Team Providers Care Car Storer Name Role Phone Husam Rosas MD Primary Care Provider [phone] [phone] Reason for Visit * Reason Comments Medication Refill Encounter Details Date Type Department Care Team ([facility] Contact Info) Description 05/12/2014 [place] [address] Satya Wills MD [facility] [place] [address] Social History Tobacco Use Types Packs/Day Years [...] Upcoming Encounters Date Type Department Care Team ([facility] Contact Info) Description 03/06/2024 1:30 PM EST Office [place] [address] Satya Wills MD [facility] [place] [address] documented as of this encounter Visit Diagnoses Not on filedocumented in this encounter Care Teams Car Storer Relationship Specialty Start Date End Date Husam Rosas MD [address] [place] [address] PCP - General 01/19/10 01/22/17 documented as of this encounter
--- OUTSIDE RECORDS SUMMARY | 2023-12-04 16:33 | XMS_ITS | Encounter Summary ---
Author Organization [facility] [place] [address] Care Team Providers Care Recording Studio Setup Worker Name Role Phone Husam Rosas MD Primary Care Provider [phone] [phone] Encounter Details Date Type Department Care Team (Late st Contact Info) Description 05/13/2014 [place] [phone] Yesika Nuñez LPN Social History Tobacco Use Types Packs/Day [...] encounter Miscellaneous Notes * Telephone Encounter - Yesika Nuñez LPN - 05/13/2014 8:21 AM EDT Vimpat rx faxed to Clarissa Hodge @ [phone] documented in this encounter Plan of Treatment Upcoming Encounters Date Type Department Care Team (Late st Contact Info) Description 03/06/2024 1:30 PM EST [place] [phone] Satya Wills MD [facility] [address] documented as of this encounter Visit Diagnoses Not on filedocumented in this encounter Care Teams Recording Studio Setup Worker Relationship Specialty Start Date End Date Husam Rosas MD [address] [place] [address] PCP - General 01/19/10 01/22/17 documented as of this encounter
--- OUTSIDE RECORDS SUMMARY | 2023-12-04 16:33 | XMS_ITS | Encounter Summary ---
Author Organization [facility] Address [facility] [place] [address] Care Team Providers Care Cap Machine Operator Name Role Phone Husam Rosas MD Primary Care Provider [phone] [phone] Reason for Visit * Reason Comments Other Encounter Details Date Type Department Care Team (Late st Contact Info) Description 09/02/2014 [place] [phone] Alicia Allen MD [facility] [place] [address] Social History Tobacco Use Types Packs/Day Years [...] Telephone Encounter - Zeynep Syed RN - 09/03/2014 6:26 PM EDT Call placed to pt and reviewed that sed rate is normal, TSH is normal, T 4 is slightly low and Dr. Allen would like this repeated. Pt concerned about the findings and is agreeable to repeat T4 level. Stressed to pt not to worry at this point - need to repeat the test to see if it still is abnormal and then address accordingly. Pt will go to local hospital lab either Monday or Monday this week for repeat lab. This note and recent labs faxed to PCP * Telephone Encounter - Zeynep Syed RN - 09/03/2014 12:35 PM EDT Left VM asking for call back * Telephone Encounter - Alicia Allen MD - 09/02/2014 4:20 PM EDT Please call patient and let her know that this lab is abnormal, please arrange for repeat T4 level and also send PCP a note what we are doing. Thank you Alicia Allen MD [facility] [place] These results are mildly abnormal but acceptable. I would like you to have a repeat T4 level drawn. If the repeat is low, I would recommend thyroid replacement which may help with your headaches. TSH Result Value Ref Range TSH 2.56 0.27 - 4.20 mcIU/mL T4 TOTAL Result Value Ref Range T4, total 4.3 (*) 5.1 - 10.8 mcg/dL SEDIMENTATION RATE Result Value Ref Range Sed Rate 9 0 - 20 mm/hr documented in this encounter Plan of Treatment Upcoming Encounters Date Type Department Care Team (Late st Contact Info) Description 03/06/2024 1:30 PM EST [place] [address] Satya Wills MD [facility] [place] [address] documented as of this encounter Visit Diagnoses Diagnosis Abnormal blood test Other nonspecific findings on examination of blood Migraine, unspecified, without mention of intractable migraine without mention of status migrainosus Unspecified hypothyroidism documented in this encounter Care Teams Cap Machine Operator Relationship Specialty Start Date End Date Husam Rosas MD [address] [place] [address] PCP - General 01/19/10 01/22/17 documented as of this encounter
--- OUTSIDE RECORDS SUMMARY | 2023-12-04 16:33 | XMS_ITS | Encounter Summary ---
Author Organization [facility] [place] [address] Care Team Providers Care Psychiatric Rn Name Role Phone Husam Rosas MD Primary Care Provider [phone] [phone] Encounter Details Date Type Department Care Team (Late st Contact Info) Description 03/04/2014 Tele[place] [phone] Clifton Low MD [facility] [place] [address] Social History Tobacco Use Types Packs/Day Years [...] Telephone Encounter - Yesika Nuñez LPN - 03/04/2014 9:08 AM EST Klonopin rx called into preferred pharmacy documented in this encounter Plan of Treatment Upcoming Encounters Date Type Department Care Team (Late st Contact Info) Description 03/06/2024 1:30 PM EST Office [place] [phone] Satya Wills MD [facility] [place] [address] documented as of this encounter Visit Diagnoses Not on filedocumented in this encounter Care Teams Psychiatric Rn Relationship Specialty Start Date End Date Husam Rosas MD [address] [place] [address] PCP - General 01/19/10 01/22/17 documented as of this encounter
--- OUTSIDE RECORDS SUMMARY | 2023-12-04 16:33 | XMS_ITS | Encounter Summary ---
Author Organization [facility] Address [facility] [place] [address] Care Team Providers Care Crusher Supervisor Name Role Phone Husam Rosas MD Primary Care Provider [phone] [phone] Reason for Visit * Reason Comments Medication Refill Encounter Details Date Type Department Care Team (Late Contact Info) Description 11/16/2013 [place] [address] Satya Wills MD [facility] [place] [address] Social History Tobacco Use Types Packs/Day Years [...] 1:30 PM EST [place] [address] Satya Wills MD [facility] [place] [address] documented as of this encounter Visit Diagnoses Not on filedocumented in this encounter Care Teams Crusher Supervisor Relationship Specialty Start Date End Date Husam Rosas MD [address] [place] [address] PCP - General 01/19/10 01/22/17 documented as of this encounter
--- OUTSIDE RECORDS SUMMARY | 2023-12-04 16:33 | XMS_ITS | Encounter Summary ---
Author Organization [facility] Address [facility] [place] [address] Care Team Providers Care Sweatband Flanger Name Role Phone Husam Rosas MD Primary Care Provider +1 [phone] Reason for Visit * Reason Comments Follow-up Encounter Details Date Type Department Care Team (Latest Contact Info) Description 03/28/2014 10:30 AM EST Follow-[place] [address] Drew Heaton MD [facility] [place] [address] Human immunodeficiency virus (HIV) disease (Primary Dx); Drug-induced nausea and vomiting; Need for prophylactic vaccination and inoculation against influenza Discharge Disposition: Home Social History Tobacco Use [...] Sign Reading Time Taken Comments Blood Pressure 138/85 03/28/2014 10:29 AM EST Pulse 67 03/28/2014 10:29 AM EST Temperature 36.6 ??C (97.9 ??F) 03/28/2014 10:[address] Respiratory Rate 16 03/28/2014 10:29 AM EST Oxygen Saturation - - Inhaled Oxygen Concentration - - Weight 87.5 kg (193 lb) 03/28/2014 10:29 AM EST Height - - Body Mass Index 30.68 11/27/2013 3:37 PM EDT documented in this encounter Progress Notes * Drew Heaton MD - 03/28/2014 10:37 AM EST This is a scheduled appointment for an HIV infected woman last seen by me in clinic three months ago, since when she has actually continued to do well, including with minimal seizures. The pruritic rash on her right arm present at the last appointment resolved spontaneously. Blood pressure 138/85, pulse 67, temperature 36.6 ??C (97.9 ??F), resp. rate 16, weight 87.544 kg (193 lb), last menstrual period 11/26/2010. Overweight woman in no apparent distress. NC/AT. EOMI. Skin without rash. Throat benign. Heart RRR no m/r/g. Lungs CTA. Abdomen benign. Neuro. grossly nonfocal. aBaseline Data Serologies/Screening: Monitoring HIV DX: //1990 CDQ : 12/31/2010 Family Planning: Routine nutritional [...] Normal 08/11/2010 Normal Vag colpo: Last pelvic: [facility] exam: 05/27/2009 Anal pap: Rectal colpo: CD4: 03/28/2014 11/27/2013 249 10 09/11/2013 286 10 Chris: 03/28/2014 VL: 03/28/2014 11/27/2013 66 09/11/2013 5480 Max VL: 04/30/2003 28,700 Resist assays: 02/08/2013 no resistance mutations 07/26/2011 no resistance mutations 10/01/2010 no resistance Weights: 12/31/2010 97.977 12/16/2009 91.17 05/27/2009 83.91 Lipids: Total chol: 01/16/2009 207 LDL: 01/16/2009 115 HDL: 01/16/2009 68 Tri01/16/2009 121 Vaccines Influenza: 03/28/2014 Pneumovax: 09/16/2009 08/17/2001 Td: Tdap: 10/03/2008 HepA: 12/02/1997 HepB 20: 12/25/2002 HepB 40: HPV: Twinrix: [...] issues -but happily her nausea and vomiting remain much better and HIV viral load at the last appointment was remarkably low, so repeat today and base further plans thereon. 2. Adherence. She states that she has been 100% adherent since last seen, and I reinforced the importance of remaining so. 3. Chemoprophylaxis. None indicated by CD4. 4. Immunoprophylaxis. Up to date, including flu vaccine today. 5. Risk reduction. Not sexually active since last seen - she has previously said that she is alwayssafe. 6. Seizure disorder/headaches. She is under the care of Dr. Wills, who she is seeing today. 7. Psychiatric. Her mood is quite good. She is again seeing a therapist. 8. Abnormal pap smear/molded goods operator. Pap smear February 2013 was normal will reschedule to coordinate with next appointment. 9. Obesity. Not addressed today. 10. Hyperlipidemia. Not addressed today. 11. Smoking. Had stopped smoking in February, but resumed and was barely contemplative about stopping at my last appointment. She did though stop over the holidays in conjunction with neighboringtennants and has remained tobacco free since then! I strongly reinforced h health benefits of this and she does hope to be able to maintain this. 12. Rectal bleeding. Better after treatment with nitroglycerin, and now s/p banding in December 2013. 13. General health care. Mammogram February 2012 - repeated today. Colonoscopy 04/28/10 revealed multiple polyps and repeat in December 2013 revealed three - f/u in ? Years. She also underwent hemorrhoid banding at the same time.. 14. Transaminitis. Significantly worse in 2012, but it turns out she was drinking fairly significantly and has now stopped and they were normal at the last appointment - repeat twice annually. 15. Rash. Resolved. 30 minutes [id number] time spent with the patient, 20 minutes of which was in discussion and counseling about management of HIV. Follow-up in 3-4 months, coordinated with Dr. Wills. documented in this encounter Plan of Treatment Upcoming Encounters Date Type Department Care Team (Late st Contact Info) Description 03/06/2024 1:30 PM EST [place] [address] Satya Wills MD [facility] [place] [address] documented as of this encounter Procedures Procedure Name Priority Date/Time Associated Diagnosis Comments HIV QUANT Routine 03/28/2014 11:23 AM EST Human immunodeficiency virus (HIV) disease CD4 Routine 03/28/2014 11:23 AM EST Human immunodeficiency virus (HIV) disease HEMOGRAM Routine 03/28/2014 11:23 AM EST Human immunodeficiency virus (HIV) disease DIFFERENTIAL, AUTOMATED Routine 03/28/2014 11:23 AM EST Human immunodeficiency virus (HIV) disease HIV-1 RNA, QUANTITATIVE, PCR Routine 03/28/2014 11:23 AM EST Human immunodeficiency virus (HIV) disease CBC (WITH DIFF) Routine 03/28/2014 11:23 AM EST Human immunodeficiency virus (HIV) disease COMPREHENSIVE METABOLIC PANEL Routine 03/28/2014 11:23 AM EST Human immunodeficiency virus (HIV) disease documented in this encounter Results * HIV Quant (03/28/2014 11:23 AM EST) [facility] HIV Viral Load Result (Qualitative) * RESULT: 7328 copies/mL * INDICATION FOR STUDY: HIV-1 Infection [...] Administration. Robert Fuentes, Ph.D. Director, Molecular Pathology [facility] SEBASTIANI[facility] Comment: [VERIFIED DATE]04.01.14 Verified By:Fely Werner I (Electronic Signature) Blood specimen (specimen) 03/28/2014 11:23 AM EST 03/31/2014 10:45 AM EST Narrative Resulting Agency Comment Spec In Lab Drew Heaton MD HEMATOLOGY ORDERABLE S [facility] QUIANAENNIUM * Differential, Automated (03/28/2014 11:23 AM EST) [facility] Neutrophil % 51.5 % CERNER MILLENNIUM Neutrophil Absolute 3.36 1.50 - 6.30 x10(3)/mcL CERNER MILLENNIUM Lymph % 39.9 % CERNER MILLENNIUM Lymphocytes Abs 2.6 1.0 - 3.6 x10(3)/mcL CERNER MILLENNIUM Monocyte % 7.5 % CERNER MILLENNIUM Monocyte Abs 0.5 0.2 - 1.0 x10(3)/mcL CERNER MILLENNIUM Eos % 0.8 % CERNER MILLENNIUM Eosinophils Abs 0.0 0.0 - 0.5 x10(3)/mcL CERNER MILLENNIUM Basophil % 0.3 % CERNER MILLENNIUM Baso Absolute 0.0 0.0 - 0.2 x10(3)/mcL CERNER MILLENNIUM Immature Gran % 0.00 % CERN ER MILLENNIUM Comment: Immature granulocytes(IG's)percentage and absolute count will include metamyelocytes, myelocytes, and promyelocytes. Blood smears from CBCs yielding IG's will be scanned manually for concordance. If this scan disagrees with the automated IG or if promyelocytes are noted, a manual differential will be performed. Immature Gran Absolute 0.00 0.00 - 0.05 x10(3)/mcL CERNER MILLENNIUM Blood specimen (specimen) 03/28/2014 11:23 AM EST 03/28/2014 11:33 AM EST Narrative Resulting Agency Comment Spec In Lab Drew Heaton MD HEMATOLOGY ORDERABLE S CERNER MILLENNIUM * (ABNORMAL) Hemogram (03/28/2014 11:23 AM EST) White Blood Cell 6.5 4.0 - 10.0 x10(3)/mc L CERNER MILLENNIUM Red Blood Cell 4.48 3.93 - 5.22 x10(6)/mc L CERNER MILLENNIUM Hemoglobin 15.3 11.2 - 15.7 gm/dL CERNER MILLENNIUM Hematocrit 44.3 34.0 - 45.0 % CERNER MILLENNIUM Mean Cell Volume 98.9(H) 79.0 - 94.0 fL CERNER MILLENNIUM Mean Cell Hemoglobin 34.2(H) 26.6 - 32.2 pg CERNER MILLENNIUM Mean Cell Hemoglobin Concentration 34.5 32.0 - 36.5 gm/dL CERNER MILLENNIUM Platelet 131(L) 145 - 370 x10(3)/mc L CERNER MILLENNIUM RDW Standard Deviation 52.4(H) 35.0 - 46.0 fL CERNER MILLENNIUM RDW coefficient of variation 14.6(H) 10.9 - 14.4 % CERNER MILLENNIUM Mean Platelet Volume 9.7 9.0 - 12.0 fL CERNER MILLENNIUM Blood specimen (specimen) 03/28/2014 11:23 AM EST 03/28/2014 11:33 AM EST Narrative Resulting Agency Comment Spec In Lab Drew Heaton MD HEMATOLOGY ORDERABLE S CERNER MILLENNIUM * (ABNORMAL) Comprehensive metabolic panel (non-fasting) (03/28/2014 11:23 AM EST) Glucose 96 60 - 199 mg/dL CERNER MILLENNIUM Comment:Diabetes: >=200 mg/d L plus symptoms Blood Urea Nitrogen 13 8 - 18 mg/dL CERNER MILLENNIUM Creatinine 0.83 0.70 - 1.20 mg/dL CERNER MILLENNIUM Comment: Please note that the pediatric reference intervals supplied above were not validated at [facility]. Results from pediatric patients should be interpreted in conjunction to the patient's age, height and muscle mass. Sodium 140 135 - 145 mmol/L CERNER MILLENNIUM Potassium 4.7 3.5 - 5.0 mmol/L CERNER MILLENNIUM Comment: Please note: ??Patients with WBC >100,000 may have falsely elevated Potassium levels. ??For accurate Potassium quantification in these patients send serum separator tube (gold top) for subsequent determinations. ??Contact the Clinical Chemistry Laboratory if there are any questions. Chloride 102 98 - 107 mmol/L CERNER MILLENNIUM Carbon Dioxide 26 22 - 31 mmol/L CERNER MILLENNIUM Anion Gap 12 5 - 15 mmol/L CERNER MILLENNIUM Calcium 9.8 8.5 - 10.5 mg/dL CERNER MILLENNIUM Protein, Total 8.0 6.4 - 8.3 gm/dL CERNER MILLENNIUM Albumin 4.4 3.2 - 5.2 gm/dL CERNER MILLENNIUM Aspartate Aminotransferase 78(H) 0 - 30 unit/L CERNER MILLENNIUM Alanine Aminotransferase 76(H) 0 - 30 unit/L CERNER MILLENNIUM Alkaline Phosphatase 74 40 - 104 unit/L CERNER MILLENNIUM Bilirubin, Total 2.1(H) 0.2 - 1.3 mg/dL CERNER MILLENNIUM Bilirubin, Direct 0.3 0.0 - 0.3 mg/dL CERNER MILLENNIUM Est [...] the following links into your internet browser. [email or web address] Blood specimen (specimen) 03/28/2014 11:23 AM EST 03/28/2014 11:32 AM EST Narrative Resulting Agency Comment Spec In Lab Drew Heaton MD CHEMISTRY ORDERABLES CERNER MILLENNIUM * (ABNORMAL) CD4 (03/28/2014 11:23 AM EST) CD3% 92(H) 55 - 82 % CERNER MILLENNIUM CD3 ABS 2,379 731 - 2,438 /mcl CERNER MILLENNIUM CD 4% 10(L) 35 - 61 % CERNER MILLENNIUM CD 4ABS 248(L) 503 - 1,736 /mcl CERNER MILLENNIUM Comment: [...] CD4, CD8, CD19, CD16+56) White Blood Cell 6.5 4.0 - 10.0 x10(3)/mcL CERNER MILLENNIUM Lymph % 39.9 % CERNER MILLENNIUM Lymphocytes Abs 2.6 1.0 - 3.6 x10(3)/mcL CHIARA ARAYAMIKAYLA Blood specimen (specimen) 03/28/2014 11:23 AM EST 03/28/2014 11:32 AM EST Narrative Resulting Agency Comment Spec In Lab Drew Heaton MD HEMATOLOGY ORDERABLE S [facility] CLIFFORD documented in this encounter Visit Diagnoses Diagnosis Human immunodeficiency virus (HIV) disease- Primary Human immunodeficiency virus [HIV] disease Drug-induced nausea and vomiting Nausea with vomiting Need for prophylactic vaccination and inoculation against influenza documented in this encounter Care Teams Sweatband Flanger Relationship Specialty Start Date End Date Husam Rosas MD [address] [facility] [place] [address] PCP - General 01/19/10 01/22/17 documented as of this encounter
--- OUTSIDE RECORDS SUMMARY | 2023-12-04 16:33 | XMS_ITS | Encounter Summary ---
Author Organization [facility] Address [facility] [place] [address] Care Team Providers Care Tube Machine Operator Name Role Phone Husam Rosas MD Primary Care Provider [phone] [phone] Reason for Visit * Reason Comments Medication Refill Encounter Details Date Type Department Care Team (Late Contact Info) Description 10/11/2014 [place] [phone] Drew Heaton MD [facility] [place] [address] Human immunodeficiency virus (HIV) disease Social History [...] 1:30 PM EST [place] [address] Satya Wills MD [facility] [place] [address] documented as of this encounter Visit Diagnoses Diagnosis Human immunodeficiency virus (HIV) disease Human immunodeficiency virus [HIV] disease documented in this encounter Care Teams Tube Machine Operator Relationship Specialty Start Date End Date Husam Rosas MD [address] [place] [address] PCP - General 01/19/10 01/22/17 documented as of this encounter
--- OUTSIDE RECORDS SUMMARY | 2023-12-04 16:33 | XMS_ITS | Encounter Summary ---
Author Organization [facility] [place] [address] Care Team Providers Care Manager Of Corporate Name Role Phone Husam Rosas MD Primary Care Provider +1 -[phone] Reason for Visit * Reason Onset Date Comments Medication Refill 11/26/2014 Encounter Details Date Type Department Care Team (Late Contact Info) Description 11/26/2014 [place] [phone] Sada Hurtado CMA Medication Refill Social History [...] Telephone Encounter - Sada Hurtado CMA - 11/26/2014 10:16 AM EDT RX for VIMPAT faxed to requested pharmacy. documented in this encounter Plan of Treatment Upcoming Encounters Date Type Department Care Team (Late st Contact Info) Description 03/06/2024 1:30 PM EST Office [place] [phone] Satay Wills MD [facility] [place] [address] documented as of this encounter Visit Diagnoses Not on filedocumented in this encounter Care Teams Manager Of Corporate Relationship Specialty Start Date End Date Husam Rosas MD [address] [place] [address] PCP - General 01/19/10 01/22/17 documented as of this encounter
--- OUTSIDE RECORDS SUMMARY | 2023-12-04 16:33 | XMS_ITS | Encounter Summary ---
Author Organization [facility] Address [facility] [place] [address] Care Team Providers Care Facility Maintenance Worker Name Role Phone Husam Rosas MD Primary Care Provider +1 -[phone] Reason for Visit * Reason Comments Medication Refill Encounter Details Date Type Department Care Team (Late Contact Info) Description 07/22/2014 Refill [place] [phone] Drew Heaton MD [facility] [place] [address] Human immunodeficiency virus (HIV) disease Social History [...] 1:30 PM EST [place] [address] [facility] [place] [place] [address] documented as of this encounter Visit Diagnoses Diagnosis Human immunodeficiency virus (HIV) disease Human immunodeficiency virus [HIV] disease documented in this encounter Care Teams Facility Maintenance Worker Relationship Specialty Start Date End Date Husam Rosas MD [address] [place] [address] PCP - General 01/19/10 01/22/17 documented as of this encounter
--- OUTSIDE RECORDS SUMMARY | 2023-12-04 16:33 | XMS_ITS | Encounter Summary ---
Author Organization [facility] [place] [address] Care Team Providers Care Insulation Sprayer Name Role Phone Husam Rosas MD Primary Care Provider +1 -[phone] Reason for Visit * Reason Onset Date Comments Medication Refill 03/03/2014 Encounter Details Date Type Department Care Team (Late Contact Info) Description 03/03/2014 [place] [address] Clifton Low MD [facility] [place] [address] Social History Tobacco Use Types Packs/Day Years [...] 1:30 PM EST Office [place] [address] Satya Wills MD [facility] [place] [address] documented as of this encounter Visit Diagnoses Not on filedocumented in this encounter Care Teams Insulation Sprayer Relationship Specialty Start Date End Date Husam Rosas MD [address] [place] [address] PCP - General 01/19/10 01/22/17 documented as of this encounter
--- OUTSIDE RECORDS SUMMARY | 2023-12-04 16:33 | XMS_ITS | Encounter Summary ---
Author Organization [facility] Address [facility] [place] [address] Care Team Providers Care Dental Mold Maker Name Role Phone Husam Rosas MD Primary Care Provider +1 -[phone] Reason for Visit * Reason Comments Medication Refill Encounter Details Date Type Department Care Team ([facility] Contact Info) Description 11/25/2014 [place] [address] Satya Wills MD [facility] [place] [address] Social History Tobacco Use Types Packs/Day Years [...] Upcoming Encounters Date Type Department Care Team ([facility] Contact Info) Description 03/06/2024 1:30 PM EST [place] [address] Satya Wills MD [facility] [place] [address] documented as of this encounter Visit Diagnoses Not on filedocumented in this encounter Care Teams Dental Mold Maker Relationship Specialty Start Date End Date Husam Rosas MD [address] [place] [address] PCP - General 01/19/10 01/22/17 documented as of this encounter
--- OUTSIDE RECORDS SUMMARY | 2023-12-04 16:33 | XMS_ITS | Encounter Summary ---
Author Organization [facility] Address [facility] [place] [address] Care Team Providers Care Time Lock Expert Name Role Phone Husam Rosas MD Primary Care Provider +1 [phone] Encounter Details Date Type Department Care Team (Latest Contact Info) Description 08/27/2014 2:37 PM EDT - 08/27/2014 11:59 PM EDT Hospital [place] [phone] Alicia Allen MD [facility] [place] [address] Chronic migraine without aura with status migrainosus, not intractable; Hypothyroidism, unspecified Discharge Disposition: Home Social History Tobacco Use [...] Sig Dispensed Refills Start Date End Date naproxen sodium (ANAPROX) 550 mg Tablet Take 550 mg by mouth 2 times daily as needed. 0 prazosin (MINIPRESS) 2 mg Capsule Take 1 capsule by mouth nightly. 60 capsule 3 08/27/2014 5 promethazine (PHENERGAN) [address] 1-2 suppositories rectally every 6 hours as needed (Nausea with headache). 15 suppository 5 08/27/2014 5 VIREAD 300 mg TabletIndications:HIV disease take 1 tablet by mouth once daily 30 tablet 5 07/28/2014 5 RITONAVIR 100 mg TabletIndications:Amelia n immunodeficiency virus (HIV) disease take 1 tablet by mouth once daily 30 tablet 5 07/22/2014 5 hydrOXYzine (VISTARIL) 25 mg Capsule take 1 capsule by mouth twice a day 60 capsule 5 05/19/2014 5 VIMPAT 200 mg Tablet TAKE 1 TABLET BY MOUTH TWICE A DAY 60 tablet 5 05/12/2014 5 REYATAZ 300 mg CapsuleIndications:Hum an immunodeficiency virus (HIV) disease TAKE 1 CAPSULE BY MOUTH DAILY 30 capsule 5 04/16/2014 5 EPZICOM 600-300 mg TabletIndications:Amelia n immunodeficiency virus (HIV) disease TAKE 1 TABLET BY MOUTH DAILY 30 tablet 5 04/16/2014 5 prochlorperazine (COMPAZINE) 10 mg TabletIndications:Drug -induced nausea and vomiting Take 1 tablet by mouth 3 times daily as needed. 15 tablet 3 03/28/2014 0 clonazePAM (KLONOPIN) 1 mg Tablet Take 1 tab by mouth in am & 2 tabs in pm on daily 90 tablet 5 03/03/2014 5 albuterol (PROVENTIL HFA;VENTOLIN HFA) 90 mcg/Actuation inhaler Inhale 2 puffs into the lungs every 4 hours as needed. Use with spacer 0 polyethylene glycol (MIRALAX) 17 gram/dose powder Take 17 g by mouth as needed. 0 Multivitamins with Iron TabIndications:HIV disease Take 1 tablet by mouth daily. 30 tablet 11 06/04/2010 0 documented as of this encounter Plan of Treatment Upcoming Encounters Date Type Department Care Team (Late st Contact Info) Description 03/06/2024 1:30 PM EST [place] [address] Satya Wills MD [facility] [place] [address] documented as of this encounter Procedures Procedure Name Priority Date/Time Associated Diagnosis Comments SEDIMENTATION RATE Routine 08/27/2014 2: 44 PM EDT Chronic migraine without aura with status migrainosus, not intractable Hypothyroidism, unspecified TSH Routine 08/27/2014 2:44 PM EDT Chronic migraine without aura with status migrainosus, not intractable Hypothyroidism, unspecified T4 TOTAL Routine 08/27/2014 2:44 PM EDT Chronic migraine without aura with status migrainosus, not intractable Hypothyroidism, unspecified documented in this encounter Results * Sedimentation rate (08/27/2014 2:44 PM EDT) Pathologist [facility] Sedimentation Rate Automated 9 0 - 20 mm/hr [facility] Blood specimen (specimen) 08/27/2014 2:44 PM EDT 08/27/2014 3:02 PM EDT Narrative Resulting Agency Comment Spec In Lab Alicia Allen MD HEMATOLOGY ORDERABLE S Performing Organization Address City/[facility] Co de Phone Number [facility] * (ABNORMAL) T4 Total (08/27/2014 2:44 PM EDT) Pathologist [facility] T4 Total 4.3(L) 5.1 - 10.8 mcg/dL [facility] Comment: Reference Range: Linneus Cord Blood: ??6.9-14.4 mcg/dL Females: ??7.2-14.2 mcg/dL Pediatric ranges: ??Interpret with caution-ranges have not been verified Blood specimen (specimen) 08/27/2014 2:44 PM EDT 08/27/2014 3:02 PM EDT Narrative Resulting Agency Comment Spec In Lab Alicia Allen MD CHEMISTRY ORDERABLES Performing Organization Address City/[facility] Co de Phone Number [facility] * TSH (08/27/2014 2:44 PM EDT) Pathologist [facility] Thyroid Stimulating Hormone 2.56 0.27 - 4.20 mcIU/mL [facility] CLIFFORD Blood specimen (specimen) 08/27/2014 2:44 PM EDT 08/27/2014 3:02 PM EDT Narrative Resulting Agency Comment Spec In Lab Alicia Allen MD CHEMISTRY ORDERABLES [facility] CLIFFORD documented in this encounter Visit Diagnoses Diagnosis Chronic migraine without aura with status migrainosus, not intractable Chronic migraine without aura, without mention of intractable migraine with status migrainosus Hypothyroidism, unspecified documented in this encounter Care Teams Time Lock Expert Relationship Specialty Start Date End Date Husam Rosas MD [address] [place] [address] PCP - General 01/19/10 01/22/17 documented as of this encounter
--- OUTSIDE RECORDS SUMMARY | 2023-12-04 16:33 | XMS_ITS | Encounter Summary ---
Author Organization [facility] Address [facility] [place] [address] Care Team Providers Care Agricultural Engineering Technician Name Role Phone Husam Rosas MD Primary Care Provider [phone] [phone] Reason for Visit * Reason Comments Medication Refill Encounter Details Date Type Department Care Team (Late Contact Info) Description 01/13/2015 Refill [place] [phone] Drew Heaton MD [facility] [address] HIV disease Social History Tobacco Use Types [...] Telephone Encounter - Suzie Mars RN - 01/13/2015 11:08 AM EST [facility] in [facility] sends a request for renewal prescriptions for ritonavir and Viread; will forward request to Dr Heaton documented in this encounter Plan of Treatment Upcoming Encounters Date Type Department Care Team (Late Contact Info) Description 03/06/2024 1:30 PM EST Office [place] [address] Satya Wills MD [facility] [place] [address] documented as of this encounter Visit Diagnoses Diagnosis HIV disease Human immunodeficiency virus [HIV] disease documented in this encounter Care Teams Agricultural Engineering Technician Relationship Specialty Start Date End Date Husam Rosas MD [address] [facility] [place] [place] [address] PCP - General 01/19/10 01/22/17 documented as of this encounter
--- OUTSIDE RECORDS SUMMARY | 2023-12-04 16:33 | XMS_ITS | Encounter Summary ---
Author Organization [facility] Address [facility] [place] [address] Care Team Providers Care Casting And Pasting Supervisor Name Role Phone Husam Rosas MD Primary Care Provider [phone] Reason for Visit * Reason Comments Medication Refill Encounter Details Date Type Department Care Team (Late Contact Info) Description 07/27/2014 [place] [id number] Drew Heaton MD [facility] [place] [address] HIV disease Social History Tobacco Use Types [...] Telephone Encounter - Suzie Mars RN - 07/28/2014 10:32 AM EDT Request received from Clarissa Hodge in [facility] for renewal prescription for Viread; will forward Kika documented in this encounter Plan of Treatment Upcoming Encounters Date Type Department Care Team (Late Contact Info) Description 03/06/2024 1:30 PM EST [place] [address] Satya Wills MD [facility] [place] [address] documented as of this encounter Visit Diagnoses Diagnosis HIV disease Human immunodeficiency virus [HIV] disease documented in this encounter Care Teams Casting And Pasting Supervisor Relationship Specialty Start Date End Date Husam Rosas MD [address] [place] [address] PCP - General 01/19/10 01/22/17 documented as of this encounter
--- OUTSIDE RECORDS SUMMARY | 2023-12-04 16:33 | XMS_ITS | Encounter Summary ---
Author Organization [facility] Address [facility] [place] [address] Care Team Providers Care Woodwind Reeds Cutter Name Role Phone Husam Rosas MD Primary Care Provider [phone] Encounter Details Date Type Department Care Team (Latest Contact Info) Description 07/15/2014 11:30 AM EDT Follow-Up Infectious Disease at [facility] [place] [address] Drew Heaton MD [facility] [address] [place] [address] Human immunodeficiency virus (HIV) disease (Primary Dx); Transaminitis Discharge Disposition: Home Social History Tobacco Use [...] Sign Reading Time Taken Comments Blood Pressure 120/84 07/15/2014 11:34 AM EDT Pulse 85 07/15/2014 11:34 AM EDT Temperature 36.9 ??C (98.4 ??F) 07/15/2014 11:34 AM E DT Respiratory Rate 16 07/15/2014 11:34 AM EDT Oxygen Saturation - - Inhaled Oxygen Concentration - - Weight 91.4 kg (201 lb 9.6 oz) 07/15/2014 11:34 AM EDT Height - - Body Mass Index 32.05 03/28/2014 11:28 AM EST documented in this encounter Progress Notes * Drew Heaton MD - 07/15/2014 11:31 AM EDT This is a scheduled appointment for an HIV infected woman last seen by me in clinic four months ago, since when she has actually continued to do well, including with minimal seizures, save for stressabout planned move to a new apartment in July. Blood pressure 120/84, pulse 85, temperature 36.9 ??C (98.4 ??F), resp. rate 16, weight 91.445 kg (201 lb 9.6 oz), last menstrual period 11/26/2010. Overweight woman in [...] Hep B cAb: (IgG): Hep B sA07/15/2014 eAg: eAb: DNA PCR: Hep C Ig07/15/2014 Genotype: Viral load: Anyt hx rx? : Y/N free text dates AFP: U/S: Liver Study: Toxo IgG: CMV IgG: RPR Titers: 12/31/2010 03/05/2008 10/31/2003 PPD: 03/02/2012 neg CXR: Rx status: Cervical pap: 03/04/2013 Normal 03/02/2012 Normal 08/11/2010 Normal Vag colpo: Last pelvic: [employer]ist exam: 05/27/2009 Anal pap: Rectal colpo: CD4: 07/15/2014 03/28/2014 248 10 11/27/2013 249 10 Chris: 07/15/2014 VL: 07/15/2014 03/28/2014 7328 11/27/2013 66 Max VL: 04/30/2003 28,700 Resist assays: 02/08/2013 [...] again seeing a therapist. 8. Abnormal pap smear/forming operator. Pap smear February 2013 was normal will reschedule to coordinate with next appointment (was to happen for today, but didn't get scheduled). 9. Obesity. Not addressed today. 10. Hyperlipidemia. Not addressed today. 11. Smoking. Had stopped smoking in February, but resumed and was barely contemplative about stopping at my last appointment. She did though stop over the holidays, 2013 in conjunction with neighboring tennants but has again started and doesn't feel that she can address this until she is in hernew appointment. 12. Rectal bleeding. Better after treatment with [...] and has now stopped and they were then normal, but abnormal at last appointment. Recheck today as well as HBV sAg and HCV Ab. 30 minutes [id number] time spent with the patient, 20 minutes of which was in discussion and counseling about management of HIV. Follow-up in 3-4 months, coordinated with Dr. Wills. documented in this encounter Miscellaneous Notes * Addendum Note - Gracia Nava - 07/15/2014 12:07 PM EDTAddended by: GRACIA NAVA on: 07/15/2014 12:07 PM Modules accepted: Orders documented in this encounter Plan of Treatment Upcoming Encounters Date Type Department Care Team (Late st Contact Info) Description 03/06/2024 1:30 PM EST [place] [address] Satya Wills MD [facility] [place] [address] documented as of this encounter Procedures Procedure Name Priority Date/Time Associated Diagnosis Comments HIV QUANT Routine 07/15/2014 12:14 PM EDT Human immunodeficiency virus (HIV) disease NUCLEATED RED BLOOD CELLS Routine 07/15/2014 12:14 PM EDT CD4 Routine 07/15/2014 12:14 PM EDT Human immunodeficiency virus (HIV) disease HEMOGRAM Routine 07/15/2014 12:14 PM EDT Human immunodeficiency virus (HIV) disease DIFFERENTIAL, AUTOMATED Routine 07/15/2014 12:14 PM EDT Human immunodeficiency virus (HIV) disease HEPATITIS C ANTIBODY Routine 07/15/2014 12:14 PM EDT Human immunodeficiency virus (HIV) disease Transaminitis HIV-1 RNA, QUANTITATIVE, PCR Routine 07/15/2014 12:14 PM EDT Human immunodeficiency virus (HIV) disease HEPATITIS B SURFACE ANTIGEN Routine 07/15/2014 12:14 PM EDT Human immunodeficiency virus (HIV) disease Transaminitis CBC (WITH DIFF) Routine 07/15/2014 12:14 PM EDT Human immunodeficiency virus (HIV) disease COMPREHENSIVE METABOLIC PANEL Routine 07/15/2014 12:14 PM EDT Human immunodeficiency virus (HIV) disease Transaminitis documented in this encounter Results * Nucleated Red Blood Cells (07/15/2014 12:14 PM EDT) NRBC% auto 0.0 % [facility] NRBC Absolute 0.000 0.000 - 0.012 x10(3)/mcL [facility] Blood specimen (specimen) 07/15/2014 12:14 PM EDT 07/15/2014 12:21 PM EDT Narrative Resulting Agency Comment Spec In Lab Drew Heaton MD HEMATOLOGY ORDERABLE S [facility] * HIV Quant (07/15/2014 12:14 PM EDT) HIV Viral Load Result (Qualitative) * RESULT: 27998 copies/mL * INDICATION FOR STUDY: HIV-1 Infection [...] Administration. Robert Fuentes, Ph.D. Director, Molecular Pathology [facility] Comment: [VERIFIED DATE]07.17.14 Verified By:Shelia Liang (Electronic Signature) Blood specimen (specimen) 07/15/2014 12:14 PM EDT 07/16/2014 9:43 AM EDT Narrative Resulting Agency Comment Spec In Lab Drew Heaton MD [facility]EMATOLOGY ORDERABLE S [facility] * Differential, Automated (07/15/2014 12:14 PM EDT) Neutrophil % 50.1 % [facility] Neutrophil Absolute 2.73 1.50 - 6.30 x10(3)/mcL [facility] Lymph % 44.0 % [facility] Lymphocytes Abs 2.4 1.0 - 3.6 x10(3)/mcL [facility] Monocyte % 5.3 % [facility] Monocyte Abs 0.3 0.2 - 1.0 x10(3)/mcL [facility] Eos % 0.4 % [facility] Eosinophils Abs 0.0 0.0 - 0.5 x10(3)/mcL [facility] Basophil % 0.2 % [facility] Baso Absolute 0.0 0.0 [...] 0.05 x10(3)/mcL [facility] Blood specimen (specimen) 07/15/2014 12:14 PM EDT 07/15/2014 12:21 PM EDT Narrative Resulting Agency Comment Spec In Lab Drew Heaton MD HEMATOLOGY ORDERABLE S [facility] * (ABNORMAL) Hemogram (07/15/2014 12:14 PM EDT) White Blood Cell 5.4 4.0 - 10.0 x10(3)/mc L [facility] Red Blood Cell 4.32 3.93 - 5.22 x10(6)/mc L [facility] Hemoglobin 15.8(H) 11.2 - 15.7 gm/dL [facility] Hematocrit 42.8 34.0 - 45.0 % [facility] Mean Cell Volume 99.1(H) 79.0 - 94.0 fL [facility] Mean Cell Hemoglobin 36.6(H) 26.6 - 32.2 pg [facility] Mean Cell Hemoglobin Concentration 36.9(H) 32.0 - 36.5 gm/dL [facility] Platelet 146 145 - 370 x10(3)/mc L [facility] RDW Standard Deviation 46.8(H) 35.0 - 46.0 fL [facility] RDW coefficient of variation 12.9 10.9 - 14.4 % [facility] Mean Platelet Volume 9.7 9.0 - 12.0 fL [facility] Blood specimen (specimen) 07/15/2014 12:14 PM EDT 07/15/2014 12:21 PM EDT Narrative Resulting Agency Comment Spec In Lab Drew Heaton MD HEMATOLOGY ORDERABLE S [facility] * Hepatitis B Surface Antigen (07/15/2014 12:14 PM EDT) Hepatitis B Surface Antigen Negative Negative [facility] Blood specimen (specimen) 07/15/2014 12:14 PM EDT 07/15/2014 12:21 PM EDT Narrative Resulting Agency Comment Spec In Lab Drew Heaton MD CHEMISTRY ORDERABLES [facility] * Hepatitis C Antibody (07/15/2014 12:14 PM EDT) Pathologist [facility] Hepatitis C Antibody Negative Negative [facility] Blood specimen (specimen) 07/15/2014 12:14 PM EDT 07/15/2014 12:21 PM EDT Narrative Resulting Agency Comment Spec In Lab Drew Heaton MD CHEMISTRY ORDERABLES Performing Organization Address [facility] Co de Phone Number [facility] * (ABNORMAL) Comprehensive metabolic panel (non-fasting) (07/15/2014 12:14 PM EDT) [facility] Glucose 89 60 - 199 mg/dL [facility] Comment:Diabetes: >=200 mg/d L plus symptoms Blood Urea Nitrogen 5(L) 8 - 18 mg/dL [facility] Creatinine 0.80 0.70 - 1.20 mg/dL [facility] Comment: Please note that the pediatric reference intervals supplied above were not validated at [facility]. Results from pediatric patients should be interpreted in conjunction to the patient's age, height and muscle mass. Sodium 141 135 - 145 mmol/L [facility] Potassium 4.0 3.5 - 5.0 mmol/L [facility] Comment: Please note: ??Patients with WBC >100,000 may have falsely elevated Potassium levels. ??For accurate Potassium quantification in these patients send serum separator tube (gold top) for subsequent determinations. ??Contact the Clinical Chemistry Laboratory if there are any questions. Chloride 102 98 - 107 mmol/L [facility] Carbon Dioxide 21(L) 22 - 31 mmol/L [facility] Anion Gap 18(H) 5 - 15 mmol/L [facility] Calcium 9.2 8.5 - 10.5 mg/dL [facility] Protein, Total 7.8 6.1 - 8.0 gm/dL [facility] Albumin 4.2 3.2 - 5.2 gm/dL [facility] Aspartate Aminotransferase 54(H) 0 - 30 unit/L [facility] Alanine Aminotransferase 46(H) 0 - 30 unit/L [facility] Alkaline Phosphatase 88 40 - 104 unit/L [facility] Bilirubin, Total 0.4 0.2 - 1.3 mg/dL [facility] Bilirubin, Direct 0.1 0.0 - 0.3 mg/dL [facility] Est [...] the following links into your internet browser. [email or web address] [email or web address] Blood specimen (specimen) 07/15/2014 12:14 PM EDT 07/15/2014 12:21 PM EDT Narrative Resulting Agency Comment Spec In Lab Drew Heaton MD CHEMISTRY ORDERABLES [facility] * (ABNORMAL) CD4 (07/15/2014 12:14 PM EDT) CD3% 91(H) 55 - 82 % [facility] CD3 ABS 2,160 731 - 2,438 /mcl [facility] CD 4% 10(L) 35 - 61 % [facility] CD 4ABS 235(L) 503 - 1,736 /mcl [facility] Comment: [...] CD4, CD8, CD19, CD16+56) White Blood Cell 5.4 4.0 - 10.0 x10(3)/mcL [facility] Lymph % 44.0 % [facility] Lymphocytes Abs 2.4 1.0 - 3.6 x10(3)/mcL [facility] Blood specimen (specimen) 07/15/2014 12:14 PM EDT 07/15/2014 12:21 PM EDT Narrative Resulting Agency Comment Spec In Lab Drew Heaton MD HEMATOLOGY ORDERABLE S [facility] documented in this encounter Visit Diagnoses Diagnosis Human immunodeficiency virus (HIV) disease- Primary Human immunodeficiency virus [HIV] disease Transaminitis Nonspecific elevation of levels of transaminase or lactic acid dehydrogenase (LDH) documented in this encounter Care Teams Woodwind Reeds Cutter Relationship Specialty Start Date End Date Husam Rosas MD [address] [place] [address] PCP - General 01/19/10 01/22/17 documented as of this encounter
--- OUTSIDE RECORDS SUMMARY | 2023-12-04 16:33 | XMS_ITS | Encounter Summary ---
Author Organization [facility] Address [facility] [place] [address] Care Team Providers Care Hob Mill Operator Name Role Phone Husam Rosas MD Primary Care Provider [phone] Reason for Referral * Psychiatric (Routine) - Closed Specialty Diagnoses / Procedures Referred By Jin t Referred To Contact Diagnoses Chronic migraine without aura with status migrainosus, not intractable Alicia Allen MD [facility] [place] [address] Referral ID Status Reason Start Date Expiration Date V isits Requested Visits Authorized [id number] Closed Consult, Test & Treat 08/27/2014 02/23/2015 3 3 Reason for Visit * Reason Comments Headache Encounter Details Date Type Department Care Team (Late st Contact Info) Description 08/27/2014 12:45 PM EDT [place] [address] CLINIC, Alicia Holcomb MD [facility] [place] [address] Chronic migraine without aura with status migrainosus, not intractable (Primary Dx); Hypothyroidism, unspecified Discharge Disposition: Home Social History [...] Sign Reading Time Taken Comments Blood Pressure 132/82 08/27/2014 12:57 PM EDT Pulse 75 08/27/2014 12:57 PM EDT Temperature - - Respiratory Rate - - Oxygen Saturation - - Inhaled Oxygen Concentration - - Weight 91.6 kg (202 lb) 08/27/2014 12:57 PM EDT Height 168.9 cm (5' 6.5) 08/27/2014 12:57 PM ED T per patient Body Mass Index 32.12 08/27/2014 12:57 PM EDT documented in this encounter Patient Instructions * Patient Instructions* Alicia Allen MD - 08/27/2014 1:44 PM EDT Office Number: ([facility] - [place]) Clinic nurse number (for most issues) (Chantel) For Prescription Refills: (Kareem) Please call for refills when you have one month left on your medication, we have 48 hours from the time you call to get the medication refill placed. Please call the clinic rather then using [employer] or e-mail, as the communication is better in real time. Thank you and I look forward to working with you. Book: Conquering Headache (on ebay) Arian/ Can/Paz (editors) the 5th or 6th edition Keep your Calendar and bring them to your appointment please. Diagnosis: Chronic Migraine with and without aura For Headache Prevention: Botox Injection now and every 3 months For Nightmares Prazosin 2mg at bedtime Watch for side effects of orthostatic hypotension/low blood pressure - a sudden drop in your blood pressure in the morning, you may feel lightheaded or off balance. Sit up on the edge of the bed and get up slowly after taking this medication. If you have symptoms of low blood pressure please call the office and we will modify your regimen.. - For mild to moderate DINERO Naproxen sodium 550mg twice a day as needed Vistaril 25mg twice a day as needed - For rescue Phenergan 25mg -50mg suppository Tests: MRI brain with and without contrast LABS: Thyroid function studies Follow-up with Dr. Allen in 8-10 weeks Please call Zoraida at on Monday09/01/2014 If you get the voicemail Please leave your name, that you received bilateral occipital nerve blocks on 08/27/2014 Please let us know if there has been a changed your headache frequency, % improvement. Note any side effects and let us know if you require a call back Thank you documented in this encounter Progress Notes * Alicia Allen MD - 08/27/2014 1:01 PM EDT Neurology Headache Clinic Initial Consultation Patient name: Josiane Pacheco Date of : 1955 PCP: HUSAM ROSAS MD CC: Headache We have been asked to see Josiane Pacheco in consultation by Satya Wills for her c/o Headaches in our capacity as Headache Medicine Specialist. HPI: Josiane Pacheco is a 59 y.o. right handed female with PMH HIV, HIV meningitis, epilepsy s/p right temporal lobectomy 11/2006( by Dr. Ryan), anxiety, depression, asthma is presenting for evaluation and management of her headaches. Patient reports that she has been having headaches of long as she can remember, but they got worse following her surgery in November 2006. Currently she is having a daily headache that varies in location can be unilateral in the temporal region or bilateral in the frontal region. She reports both a throbbing quality to the headache pain as well as jabs and jolts. Patient denies any symptoms of aura; sparkles, zig-zags, black spots or tunneling of his vision. Patient does report that she cannot bilateral tearing of the eyes and rhinorrhea with her headaches. There is no positional component to her headaches. There are no symptoms of jaw claudication or changes in vision. She can get blurring of the vision during the peak of her [...] to epileptic seizures. She was diagnosed in [place] with petit mall seizures the progress to grand mal seizures later in life. 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 In college the patient recalls [...] see any abnormal enhancement currently. Ref. Range 03/17/2010 12:08 TSH Latest Range: 0.27-4.20 mcIU/mL 1.08 Contraception: 2 years no menstrual cycle No hormone replacement Medications tried: Topamax (SE itching) Lamictal for seizures Naproxen sodium Vistaril Percocet Tylenol ASA Excedrin Migraine Current Medications: Naproxen sodium Vistaril Treatments not tried: Botox No h/o renal stones Has h/o asthma Past Medical History: Past Medical History Diagnosis Date ??? HIV disease 05/28/2010 Medications: Current Outpatient Prescriptions on File Prior to Visit Medication Sig Dispense Refill ??? VIREAD 300 mg Tablet take 1 [...] twice a day 60 capsule 5 ??? VIMPAT 200 mg Tablet TAKE 1 TABLET BY MOUTH TWICE A DAY 60 tablet 5 ??? REYATAZ 300 mg Capsule TAKE 1 CAPSULE BY MOUTH DAILY 30 capsule 5 ??? EPZICOM 600-300 mg Tablet TAKE 1 TABLET BY MOUTH DAILY 30 tablet 5 ??? prochlorperazine (COMPAZINE) 10 mg Tablet Take 1 tablet by mouth 3 times daily as needed. 15 tablet 3 ??? eslicarbazepine (APTIOM) 800 mg Tablet Take 800 mg by mouth daily. 30 tablet 11 ? ? clonazePAM (KLONOPIN) 1 mg Tablet Take 1 tab by mouth in am & 2 tabs in pm on daily 90 tablet 5 ??? albuterol (PROVENTIL HFA;VENTOLIN HFA) 90 mcg/Actuation inhaler Inhale 2 puffs into the lungs every 4 hours as needed. Use with spacer ??? polyethylene glycol (MIRALAX) 17 gram/dose powder Take 17 g by mouth as needed. ??? Multivitamins with Iron Tab Take 1 tablet by mouth daily. 30 tablet 11 No current facility-administered medications on file prior to visit. Allergy: Allergies Allergen Reactions ??? Lamictal [Lamotrigine] Per patient very dizzy, double vision, and hard to keep walking. ??? Topiramate Itching Family History: History reviewed. No pertinent family history. Social History: On disability Has a 27 y/o boy - he has headaches Smoking - cut back EtOH none Denies drug use Review of systems: Constitutional: No fevers or chills Eyes: No vision changes, no diplopia, no blurry vision ENT: No rhinorrhea or pharyngitis, no meningismus CV: No chest pain or palpitations Resp: No cough, no shortness of breath GI: No nausea, vomiting, diarrhea or constipation : No dysuria, no incontinence Heme: No bleeding or bruising Endo: No diabetes or thyroid disease Neuro: See HPI Psych: No depression, normal sleep [x] Review of systems otherwise negative Physical Exam: Filed Vitals: 08/27/14 1257 BP: 132/82 Pulse: 75 HEENT: oral mucosa moist, no thrush, no carotid bruits, no thyromegaly, no lymphadenopathy Bilateral occipital nerve tenderness to palpation Heart: RRR S1S2 no murmur Lungs: CTAB symmetric expansion Abd: soft, nontender, nondistended Ext: no edema, adequate pulses Neuro exam: MSE: alert, oriented to person, place, time, situation, follows simple and complex commands, speechfluent with no dysarthria CN: PERRL, no nystagmus, EOMI, visual gautam intact to confrontation, facial sensation intact, no facial droop or asymmetry, tongue protrudes midline, uvula and palate elevate symmetrically, trap symmetric strength bilaterally Fundoscopic examination: crisp optic cups, no AV nicking, venous pulsations b/l Motor: RUE 5/5 throughout LUE 5/5 throughout RLE 5/5 throughout LLE 5/5 throughout Normal bulk and tone No pronator drift Reflexes 1+ bilat biceps, brachioradialis, triceps 1+ bilat patella, achilles Sensation: intact light touch Coordination: intact finger nose finger no dysmetria, no tremor Gait: normal stride and arm swing,Negative romberg. Labs: No results found for this or any previous visit (from the past 24 hour(s)). Diagnostic Tests and Imaging: MRI brain 2008 reviewed - documented above Assessment and plan: Josiane Pacheco is a 59 y.o. right handed female with PMH HIV, HIV meningitis, epilepsy s/p right temporal lobectomy 11/2006( by Dr. Ryan), anxiety, depression, asthma is presenting for evaluation and management of her headaches. Patient's headaches are consistent with a chronic migraine without aura. Patient has a daily headache and has no medication overuse headache component from her history. She is taking no ifud-dht-cjrbiov medications, narcotics and opiate medications. We discussed the importance of avoiding these medications. Patient has had an no recent workup for her headaches therefore I recommend a repeat MRI brain with and without contrast as well as laboratory evaluation with TSH, T4 and ESR. I do not suspect assist arteritis she is over 50 years old therefore we will check. For the management of her chronic migraines are recommend Botox injections. She has failed management with topiramate in the past due to the side effect of itching. Her insurance does not require a prior authorization therefore I will perform the procedure today. She also has a severe headache today with occipital nerve tenderness therefore I will also perform an occipital nerve block bilaterally. She should continue her use of naproxen sodium and Vistaril for management of mild to moderate headache symptoms Phenergan suppositories for rescue. DHE is contraindicated in this patient with her anti-viral regimen. We can consider the use of Thorazine suppositories in the future depending on how her headaches respond to the above management. Patient is also complaining of nightmares. She does not have a formal diagnosis of PTSD, however has nightmares related to previous experiences. I recommend prazosin 2 mg daily at bedtime for the management of these nightmares - We discussed side effects of orthostatic hypotension and the importance of sitting on the bed before rising in the morning. We also discussed the importance of good psychiatric management of comorbidities in the management of both headache and epilepsy. Patient has not seen her therapist in over 5 years. I recommend that she get her name on a waiting list for local psychiatric care and I will also look into the embedded psychiatry clinic here in Neurology. I have asked the patient to call back on Monday and let us know how the occipital nerve blocks are working for her and if she is having any side effects from the prazosin. . Patient will maintain a headache diary, I recommend the book Conquering Headache (on ebay) Arian/ Can/Paz (editors) the 5th or 6th edition # Chronic Migraine without aura - Keep Headache diary - Labs: TSH, T4, ESr - MRI brain with and without contrast - External Psychiatry referral Consider imbedded Psychiatry clinic in Neuro - if there is availability - Prazosin for the management of nightmares - For Headache Prevention: Botox Injection now and every 3 months - For mild to moderate DINERO Naproxen sodium 550mg twice a day as needed Vistaril 25mg twice a day as needed - For rescue Phenergan 25mg -50mg suppository Follow-up with Dr. Allen in 8-10 weeks Alicia Allen MD [facility] Neurology This note was created using Spiration speech recognition software. Please pardon any errors. documented in this encounter Procedure Notes * Alicia Allen MD - 08/27/2014 2:16 PM EDTAssociated Order(s): NERVE BLOCK - OCCIPITAL Procedure Note Procedure: Bilateral Greater Occipital Nerve Blocks Indication: Headache with occipital/cervical tenderness Consent: Indication, risks, benefits, and alternatives discussed with patient, including risk of bleeding, infection, permanent numbness, and medication reaction. Consent signed by patient Location: The greater occipital nerve was located by first palpating the mastoid and midline occipital ridge. The nerve was palpated at 2/3 the distance to the occipital ridge. It was coincident withmaximal tenderness Medication: 50/50 mixture of 1% lidocaine and 0.25% bupivacaine Technique: The area was cleansed with 2 alcohol swabs while using clear gloves. Using a 3 cc syringe and a 25 guage 5/8 inch needle, 3 cc of the medication mixture was injected into multiple tissue planes in the area around each greater occipital nerve. Prior to each injection the plunger was drawnback to ensure that the needle was not in a blood vessel. The patient tolerated the procedure well. Complications: None Blood loss: <1 cc Alicia Allen MD [facility] Neurology * Alicia Allen MD - 08/27/2014 2:14 PM EDTAssociated Order(s): CHEMODENERVATION, MEDICAL Neurology Procedure note Date: 08/27/2014 Patient: Josiane Pacheco : 1955 Procedure: Botox injections (PREEMPT protocol) Indications: Chronic Migraine without aura Date Procedure MIDAS 08/27/2014 Botox # 1 80, 85/90 DINERO days and 7/10 intensity Risk and benefits were explained to the patient and consent was obtained. Time out was preformed OnabotulinumtoxinA was reconstituted [...] units divided between 2 sites in the acute care nurse practitioner muscles, 5 units into 1 site in [...] any immediate complications. Alicia Allen MD [facility] Neurology Headache Fellow Migraine Disability Assessment # of days in [...] DINERO (do not count days from Q.3) 40 5. Missed family / social / leisure activities because of DINERO 10 Total 80 MIDAS grade (use total of Q1 to 5) I: 0-5, little to no disability II: 6-10, mild disability III: 11-20, moderate disability IV: 21+, severe disability A. # of days in the last 3 months with a DINERO (count each day if DINERO lasted > 1 day) 85 B. Average DINERO intensity (0-10) 7 documented in this encounter Plan of Treatment Upcoming Encounters Date Type Department Care Team (Late st Contact Info) Description 03/06/2024 1:30 PM EST [place] [id number] Satya Wills MD [facility] [place] [address] Scheduled Referrals Name Type Priority Associated Diagnoses Orde r Schedule Referral to Psychiatry Outpatient Referral Routine Chronic migraine without aura with status migrainosus, not intractable Ordered: 08/27/2014 documented as of this encounter Procedures Procedure Name Priority Date/Time Associated Diagnosis Comments CHEMODENERVATION, MEDICAL Routine 08/27/2014 2:39 PM EDT Chronic migraine without aura with status migrainosus, not intractable NERVE BLOCK - OCCIPITAL Routine 08/27/2014 2:39 PM EDT Chronic migraine without aura with status migrainosus, not intractable documented in this encounter Results * Sedimentation rate (08/27/2014 2:44 PM EDT) Sedimentation Rate Automated 9 0 - 20 mm/hr [facility] Blood specimen (specimen) 08/27/2014 2:44 PM EDT 08/27/2014 3:02 PM EDT Narrative Resulting Agency Comment Spec In Lab Alicia Allen MD HEMATOLOGY ORDERABLE S [facility] * (ABNORMAL) T4 Total (08/27/2014 2:44 PM EDT) T4 Total 4.3(L) 5.1 - 10.8 mcg/dL [facility] Comment: Reference Range: Cord Blood: ??6.9-14.4 mcg/dL Females: ??7.2-14.2 mcg/dL Pediatric ranges: ??Interpret with caution-ranges have not been verified Blood specimen (specimen) 08/27/2014 2:44 PM EDT 08/27/2014 3:02 PM EDT Narrative Resulting Agency Comment Spec In Lab Alicia Allen MD CHEMISTRY ORDERABLES Performing Organization Address City/State/[facility] Co de Phone Number CHIARA CLIFFORD * TSH (08/27/2014 2:44 PM EDT) Thyroid Stimulating Hormone 2.56 0.27 - 4.20 mcIU/mL [facility]IARA CLIFFORD Blood specimen (specimen) 08/27/2014 2:44 PM EDT 08/27/2014 3:02 PM EDT Narrative Resulting Agency Comment Spec In Lab Alicia Allen MD CHEMISTRY ORDERABLES Performing Organization Address [facility] Co de Phone Number CHIARA CLIFFORD * NERVE BLOCK - OCCIPITAL (08/27/2014 2:39 PM EDT) Narrative Alicia Allen MD - 08/27/2014 2:39 PM EDT Alicia Allen MD ? 08/27/2014 ??2:39 PM Procedure Note Procedure: Bilateral Greater Occipital Nerve Blocks Indication: Headache with occipital/cervical tenderness Consent: Indication, risks, benefits, and alternatives discussed with patient, including risk of bleeding, infection, permanent numbness, and medication reaction. ??Consent signed by patient Location: The greater occipital nerve was located by first palpating the mastoid and midline occipital ridge. ??The nerve was palpated at 2/3 the distance to the occipital ridge. ??It was coincident with maximal tenderness Medication: 50/50 mixture of 1% lidocaine and 0.25% bupivacaine Technique: The area was cleansed with 2 alcohol swabs while using clear gloves. ??Using a 3 cc syringe and a 25 guage 5/8 inch needle, 3 cc of the medication mixture was injected into multiple tissue planes in the area around each greater occipital nerve. ?? Prior to each injection the plunger was drawn back to ensure that the needle was not in a blood vessel. ??The patient tolerated the procedure well. Complications: None Blood loss: <1 cc Alicia Allen MD [facility] Neurology Alicia Allen MD NEUROLOGY ORDERABLES * Chemodenervation, medical (08/27/2014 2:39 PM EDT) Narrative Alicia Allen MD - 08/27/2014 2:39 PM EDT Alicia Allen MD ? 08/27/2014 ??2:39 PM Neurology Procedure note Date: 08/27/2014 Patient: Josiane Pacheco : ??1955 Procedure: Botox injections (PREEMPT protocol) Indications: Chronic Migraine without aura Date ??Procedure ?? MIDAS 08/27/2014 Botox # 1 ?? 80, 85/90 DINERO days and 7 intensity ?? Risk and benefits were explained to the patient and consent was obtained. Time out was preformed OnabotulinumtoxinA was reconstituted [...] units divided between 2 sites in the acute care nurse practitioner muscles, 5 units into 1 site in [...] any immediate complications. Alicia Allen MD [facility] Neurology Headache Fellow Migraine Disability Assessment # of days in [...] DINERO (do not count days from Q.3) 40 5. Missed family / social / leisure activities because of DINERO 10 Total 80 MIDAS grade (use total of Q1 to 5) I: 0-5, little to no disability II: 6-10, mild disability III: 11-20, moderate disability IV: 21+, severe disability A. # of days in the last 3 months with a DINERO (count each day if DINERO lasted > 1 day) 85 B. Average DINERO intensity (0-10) 7 Alicia Allen MD PROCEDURE/MINOR SURG ICAL ORDERABLES documented in this encounter Visit Diagnoses Diagnosis Chronic migraine without aura with status migrainosus, not intractable- Primary Chronic migraine without aura, without mention of intractable migraine with status migrainosus Hypothyroidism, unspecified documented in this encounter Administered Medications Inactive Administered Medications - up to 3 most recent administrations Medication Order MAR Action Action Date Dose Rate Site botulinum toxin type A (BOTOX) injection 155 Units 155 Units, Intramuscular, ONCE, 1 dose, On Mon08/27/14 at 1415, For Chronic Migraine - PREEMPT Trial, Routine Given 08/27/2014 2:13 PM EDT 155 Units BUpivacaine (PF) (MARCAINE) 0.25 % (2.5 mg/mL) injection 3 mg 3 mg, Subcutaneous, ONCE, 1 dose, On Mon08/27/14 at 1415, Routine Given 08/27/2014 2:14 PM EDT 3 mg lidocaine (XYLOCAINE) 10 mg/mL (1 %) injection 3 mg 3 mg, Subcutaneous, ONCE, 1 dose, On Mon08/27/14 at 1415, Routine Given 08/27/2014 2:14 PM EDT 3 mg documented in this encounter Care Teams Hob Mill Operator Relationship Specialty Start Date End Date Husam Rosas MD [address] [place] [address] PCP - General 01/19/10 01/22/17 documented as of this encounter
--- OUTSIDE RECORDS SUMMARY | 2023-12-04 16:33 | XMS_ITS | Encounter Summary ---
Author Organization [facility] [place] [address] Care Team Providers Care Relief Map Modeler Name Role Phone Husam Rosas MD Primary Care Provider [phone] [phone] Encounter Details Date Type Department Care Team (Late st Contact Info) Description 03/28/2014 11:15 AM EST Follow-[place] [address] Satya Wills MD [facility] [place] [address] Partial symptomatic epilepsy with complex partial seizures, intractable, without status epilepticus Discharge Disposition: Home Social History Tobacco Use [...] Sign Reading Time Taken Comments Blood Pressure 141/85 03/28/2014 11:28 AM EST Pulse 65 03/28/2014 11:28 AM EST Temperature - - Respiratory Rate - - Oxygen Saturation - - Inhaled Oxygen Concentration - - Weight 87.5 kg (193 lb) 03/28/2014 11:28 AM EST Height 168.9 cm (5' 6.5) 03/28/2014 11:28 AM ES T Body Mass Index 30.68 03/28/2014 11:28 AM EST documented in this encounter Patient Instructions * Patient Instructions* Satya Wills MD - 03/28/2014 11:52 AM EST I think you're doing reasonably well. Seizure control seems better. I would like to increase the dose of the new medication, Aptiom, up to 800 mg daily. I'm sending jesisca prescription for the 800 mg pills Please keep everything else the same I would like to see you in 3 months, and we will coordinate that with Dr. Heaton, and I will arrangefor you to be seen by a new headache specialist to see if she can come up with anything else Satya Wills MD [place] [address] Pager: [phone], #[phone] Email: [email or web address] documented in this encounter Progress Notes * Satya Wills MD - 03/28/2014 11:43 AM EST Chief Complaint: Epilepsy. History or Present Illness: [...] history: She is doing rather better. She had only 2 minor seizures after starting treatment with Aptiom. She is sleeping better. She continues to have daily chronic headaches with daily sharp shooting pains on the right, and nausea, about once a week. medical history: Patient Active Problem List Diagnosis [...] bladder function are unremarkable. Physical Examination: BP 141/85 Pulse 65 Ht 168.9 cm (5' 6.5) Wt 87.544 kg (193 lb) BMI 30.69 kg/m2 LMP 11/26/2010 Head, eyes, ears, nose, and throat were normal. Lungs are clear. Heart was normal. Extremities were unremarkable Her mood was good and her speech [...] Outpatient Prescriptions Medication Sig Dispense Refill ??? prochlorperazine (COMPAZINE) 10 mg Tablet Take 1 tablet by mouth 3 times daily as needed. 15 tablet 3 ? ? clonazePAM (KLONOPIN) 1 mg Tablet Take 1 tab by mouth in am & 2 tabs in pm on daily 90 tablet 5 ??? RITONAVIR 100 mg Tablet TAKE 1 TABLET BY MOUTH ONCE DAILY 30 tablet 5 ??? tenofovir (VIREAD) 300 mg Tablet Take 1 tablet by mouth daily. 30 tablet 5 ??? hydrOXYzine (VISTARIL) 25 mg Capsule take 1 capsule by mouth twice a day 60 capsule 5 ??? meloxicam (MOBIC) 7.5 mg Tablet take 1 tablet by mouth once daily 30 tablet 5 ??? VIMPAT 200 mg Tablet TAKE 1 TABLET BY MOUTH TWICE A DAY 60 tablet 5 ??? REYATAZ 300 mg Capsule take 1 capsule by mouth once daily 30 capsule 5 ??? EPZICOM 600-300 mg Tablet take 1 tablet by mouth once daily 30 tablet 5 ??? albuterol (PROVENTIL HFA;VENTOLIN HFA) 90 mcg/Actuation inhaler Inhale 2 puffs into the lungs every 4 hours as needed. Use with spacer ??? polyethylene glycol (MIRALAX) 17 gram/dose powder Take 17 g by mouth 2 times daily. ??? Multivitamins with Iron Tab Take 1 tablet by mouth daily. 30 tablet 11 ??? eslicarbazepine (APTIOM) 800 mg Tablet Take 800 mg by mouth daily. 30 tablet 11 No current facility-administered medications for this visit. Laboratory Studies: Blood tests ordered by Dr. Heaton today Impression: The situation remains rather unsatisfactory 1. She is probably still having complex partial seizures, and larger ones cause falls and injuries.As noted earlier, we have failed on 2 occasions in spite of extensive inpatient video- EEG recording to capture any seizures since she had surgery. This was in spite of taking her off of all antiepileptic medication. There is some doubt in my mind as to whether all the events that she is now having are epileptic, although her son's description was very convincing. It is also possible that some of her seizures were related to alcohol withdrawal. She denies drinking for the past year. The trial of clobazam unfortunately resulted in an allergic reaction. She did not tolerate a re-trial of Lamictal. She is back on the combination of Vimpat and Klonopin, and the addition of Aptiom seems helpful. I am increasing the dose to 800 mg daily. 2. Headaches are still not doing well. We have not done well with multiple attempts at prophylacticand symptomatic treatment. I am inclined to just leave her on hydroxyzine and meloxicam for now. I am requesting a consultation from Dr. Allen in headache clinic. 3. Other medical problems include irritable bowel [...] months, and we will coordinate with the headache clinic and the ID clinic. Satya Wills MD [place] [address] Pager: [phone], #[phone] Email: [email or web address] cc: ROSA ROSAS MD documented in this encounter Plan of Treatment Upcoming Encounters Date Type Department Care Team (Late st Contact Info) Description 03/06/2024 1:30 PM EST Office Visit [place] [address] Satya Wills MD [facility] [place] [address] documented as of this encounter Visit Diagnoses Diagnosis Partial symptomatic epilepsy with complex partial seizures, intractable, without status epilepticus documented in this encounter Care Teams Relief Map Modeler Relationship Specialty Start Date End Date Husam Rosas MD [address] [place] [address] PCP - General 01/19/10 01/22/17 documented as of this encounter
--- OUTSIDE RECORDS SUMMARY | 2023-12-04 16:33 | XMS_ITS | Encounter Summary ---
Author Organization [facility] Address [facility] [place] [address] Care Team Providers Care Baseball Winder Name Role Phone Husam Rosas MD Primary Care Provider [phone] [phone] Encounter Details Date Type Department Care Team (Late st Contact Info) Description 08/12/2014 Notes Only Infectious [facility] [place] [phone] Suzie Mars, RN Social History Tobacco Use [...] as of this encounter Progress Notes * Suzie Mars, RN - 08/12/2014 1:34 PM EDT After several attempts, able to reach Josiane to further discuss most recent labs and plan of care. VLon 07/15/14 was 28,213. Josiane had previously admitted she may have missed a few doses because of the stress of neighbors and her recent move to a new apartment Josiane is settling into new apartment; identifying local resources for groceries, AA meetings, other needs She has an appointment at [facility] on 08/[facility]/14 with neurology for migraine workup and, at that time, willhave a repeat VL; order placed in e- for VL Discussed with Josiane most recent labs would indicate she is missing doses of ART. well, I could have missed a few, especially that big orange one (Epzicom) She further states the pills become lodged in her throat and she starts coughing and vomiting, which I have been complaining of for more than a year Josiane states she vomits 2-3x/week, always in the charly.; she takes her pills in the morning, spaced out by 1/2 hour to one hour, Epzicom first at 10 AM. I told her meds would be absorbed by charly on this schedule, but she states she sees orange specs in the vomitus. Josiane states she is sometimes afraid to eat, especially in charly. As food also gets stuck; feels like throat is closing; pills land in there sideways; in general, not feeling well Will discuss with Dr. Heaton documented in this encounter Plan of Treatment Upcoming Encounters Date Type Department Care Team (Late st Contact Info) Description 03/06/2024 1:30 PM EST Office [place] [address] Satya Wills MD [facility] [place] [address] documented as of this encounter Visit Diagnoses Not on filedocumented in this encounter Care Teams Baseball Winder Relationship Specialty Start Date End Date Husam Rosas MD [address] [place] [address] PCP - General 01/19/10 01/22/17 documented as of this encounter
--- OUTSIDE RECORDS SUMMARY | 2023-12-04 16:33 | XMS_ITS | Encounter Summary ---
Author Organization [facility] Address [facility] [place] [address] Care Team Providers Care Shingle Shearing Machine Operator Name Role Phone Husam Rosas MD Primary Care Provider [phone] [phone] Reason for Visit * Reason Onset Date Comments Medication Problem 04/01/2014 pharmacy unab le to obtain 800 mg tablet of Aptiom Encounter Details Date Type Department Care Team (Late st Contact Info) Description 04/01/2014 [place] [phone] Satya Wills MD [facility] [place] [address] Medication Problem (pharmacy unable to obtain 800 mg tablet of Aptiom) Social History Tobacco Use Types Packs/Day Years [...] encounter Miscellaneous Notes * Telephone Encounter - Josiane BlankKENDRA - 04/03/2014 9:20 AM EST That is fine with me. The problem has been that the insurers are refusing, for the most part, to okay more than 30 pills a month and I wanted her on 800 mg daily. Uzma Hernadez 04/03/14 at 9:21 am Follow up call placed to Clarissa Hodge to inform the pharmacist that Dr Wills Says it's okay with the pt taking two 400 mg tablets of aptiom since the 800 mg tablets are on back order.Dr Wills wants to make sure the insurance company will pay for 2 tablets per day. Pharmacist confirmed with me that the claim did go through.The pharmacist tells me that she isn't sure that the company is making 800 mg tablets anymore. * Telephone Encounter - Josiane Blank LPN - 04/01/2014 3:18 PM EST Reason for call: [facility] calls to inform Dr Wills that they are unable to obtain 800 mg tablets of Aptiom. Is it okay to substitute two 400 mg tablets instead? Plan: Forwarding to Dr Wills for his review and recommendation. documented in this encounter Plan of Treatment Upcoming Encounters Date Type Department Care Team (Late st Contact Info) Description 03/06/2024 1:30 PM EST [place] [address] Satya Wills MD [facility] [place] [address] documented as of this encounter Visit Diagnoses Not on filedocumented in this encounter Care Teams Shingle Shearing Machine Operator Relationship Specialty Start Date End Date Husam Rosas MD [address] [place] [address] PCP - General 01/19/10 01/22/17 documented as of this encounter
--- OUTSIDE RECORDS SUMMARY | 2023-12-04 16:33 | XMS_ITS | Encounter Summary ---
Author Organization [facility] [place] [address] Care Team Providers Care Operator Supply Name Role Phone Husam Rossa MD Primary Care Provider [phone] [phone] Encounter Details Date Type Department Care Team (Late Contact Info) Description 12/19/2013 Telephone [place] [phone] Suzie Mars RN Social History Tobacco Use [...] Telephone Encounter - Suzie Mars RN - 12/19/2013 4:45 PM EDT TC to Josiane to review most recent labs; she will check with Dr. Wills's office about slightly elevated lacosamide level Josiane had a colonoscopy on 12/09/13 up in [facility]; she also had a hemorrhoidectomy at that time; two polyps removed Viral load 66; the lowest level in some time; Josiane thinks it is because she is taking her pills earlier in the day and staying upright after taking; she previously took meds just before sleep, they would get stuck in her throat and she would often vomit during the night documented in this encounter Plan of Treatment Upcoming Encounters Date Type Department Care Team (Late st Contact Info) Description 03/06/2024 1:30 PM EST Office [place] [address] Satya Wills MD [facility] [place] [address] documented as of this encounter Visit Diagnoses Not on filedocumented in this encounter Care Teams Operator Supply Relationship Specialty Start Date End Date Husam Rosas MD [address] [place] [address] PCP - General 01/19/10 01/22/17 documented as of this encounter
--- OUTSIDE RECORDS SUMMARY | 2023-12-04 16:33 | XMS_ITS | Encounter Summary ---
Author Organization [facility] Address [facility] [place] [address] Care Team Providers Care Program Strategist Name Role Phone Husam Rosas MD Primary Care Provider [phone] [phone] Encounter Details Date Type Department Care Team (Late st Contact Info) Description 07/15/2014 12:15 PM EDT [place] [phone] Satya Wills MD [facility] [place] [address] Localization-related (focal) (partial) epilepsy and epileptic syndromes with complex partial seizures, with intractable epilepsy Discharge Disposition: Home Social History Tobacco Use [...] Sign Reading Time Taken Comments Blood Pressure 136/78 07/15/2014 12:23 PM EDT Pulse 85 07/15/2014 12:23 PM EDT Temperature - - Respiratory Rate - - Oxygen Saturation - - Inhaled Oxygen Concentration - - Weight 91 kg (200 lb 9.6 oz) 07/15/2014 12:23 PM EDT Height 168.9 cm (5' 6.5) 07/15/2014 12 :23 PM EDT per patient Body Mass Index 31.89 07/15/2014 12:23 PM EDT documented in this encounter Patient Instructions * Patient Instructions* Satya Wills MD - 07/15/2014 1:07 PM EDT I think you're doing quite well. Seizures appear to be controlled. Your neurological exam is normal. I must admit I do not have any further ideas for headache treatment, but you are scheduled to see Dr. Allen in the headache clinic on August 27. Please stay on the same medications. I would like to see you back in 3 months and we will coordinate this with the infectious diseases clinic. Satya Wills MD [place] [address] Pager: [phone], #[phone] Email: [email or web address] documented in this encounter Progress Notes * Satya Wills MD - 07/15/2014 12:58 PM EDT Neurology clinic note Chief Complaint: [...] history: She is doing rather better. She thinks she has had no seizures in the past 3 months on a combination of Vimpat and Aptiom She is sleeping better. She continues to have daily chronic headaches with daily sharp shooting pains on the right, and nausea, about once a week. Past medical history: Patient Active Problem List [...] bladder function are unremarkable. Physical Examination: BP 136/78 Pulse 85 Ht 168.9 cm (5' 6.5) Wt 90.992 kg (200 lb 9.6 oz) BMI 31.90 kg/m2 [facility] Head, eyes, ears, nose, and throat were [...] Outpatient Prescriptions Medication Sig Dispense Refill ??? meloxicam (MOBIC) 7.5 mg Tablet take [...] ??? eslicarbazepine (APTIOM) 800 mg Tablet Take 400 mg by mouth Bid. 30 tablet 11 ? ? clonazePAM (KLONOPIN) [...] Studies: Blood tests ordered by Dr. Heaton today, CBC chemistry and liver profiles unremarkable Impression: The situation seems improved 1. She had a temporal lobectomy for [...] combination of Aptiom, Vimpat and Klonopin she has been seizure free for some months. I am inclined to make no change. 2. Headaches are still not doing well. We have not done well with multiple attempts at prophylacticand symptomatic treatment. I am inclined to just leave her on hydroxyzine and meloxicam for now. She has an appointment in August to see Dr. Allen in headache clinic. 3. Other medical problems include irritable bowel syndrome, hemorrhoids, and the chronic HIV infection. Those appear to be stable. 4. Psychiatrically she seems to be doing well. She still getting counseling. Her mood seems better.She has friends in the community and says that she gets out of the house for walks. Her son visit regularly. she is going to move to a different department soon Thank you for this consultation. I will see her back in 3 months, and we will coordinate with the ID clinic. Satya Wills MD [place] [address] Pager: [phone], #[phone] Email: [email or web address] cc: ROSA ROSAS MD documented in this encounter Plan of Treatment Upcoming Encounters Date Type Department Care Team (Late st Contact Info) Description 03/06/2024 1:30 PM EST [place] [address] [address]ya Wills MD [facility] [place] [address] documented as of this encounter Visit Diagnoses Diagnosis Localization-related (focal) (partial) epilepsy and epileptic syndromes with complex partial seizures, with intractable epilepsy documented in this encounter Care Teams Program Strategist Relationship Specialty Start Date End Date Husam Rosas MD [address] [facility] [place] [address] PCP - General 01/19/10 01/22/17 documented as of this encounter
--- OUTSIDE RECORDS SUMMARY | 2023-12-04 16:33 | XMS_ITS | Encounter Summary ---
Author Organization [facility] [place] [address] Care Team Providers Care Wood Tile Installer Name Role Phone Husam Rosas MD Primary Care Provider [phone] [phone] Reason for Visit * Reason Onset Date Comments Medication Refill 09/08/2014 Encounter Details Date Type Department Care Team (Late st Contact Info) Description 09/08/2014 [place] [phone] Sada Hurtado CMA Medication Refill Social History [...] Telephone Encounter - Sada Hurtado CMA - 09/08/2014 9:38 AM EDT Rx for Klonopin faxed to pharmacy. documented in this encounter Plan of Treatment Upcoming Encounters Date Type Department Care Team (Late st Contact Info) Description 03/06/2024 1:30 PM EST [place] [phone] Satya Wills MD [facility] [place] [address] documented as of this encounter Visit Diagnoses Not on filedocumented in this encounter Care Teams Wood Tile Installer Relationship Specialty Start Date End Date Husam Rosas MD [address] [place] [address] PCP - General 01/19/10 01/22/17 documented as of this encounter
--- OUTSIDE RECORDS SUMMARY | 2023-12-04 16:33 | XMS_ITS | Encounter Summary ---
Author Organization [facility] Address [facility] [place] [address] Care Team Providers Care Agricultural Purchasing Agent Name Role Phone Husam Rosas MD Primary Care Provider [phone] [phone] Reason for Visit * Reason Comments Medication Refill Encounter Details Date Type Department Care Team (Late Contact Info) Description 11/18/2013 [place] [address] Satya Wills MD [facility] [place] [place] [address] Social History Tobacco Use Types Packs/Day Years [...] 1:30 PM EST Office [place] [address] Satya Wills MD [facility] [place] [place] [address] documented as of this encounter Visit Diagnoses Not on filedocumented in this encounter Care Teams Agricultural Purchasing Agent Relationship Specialty Start Date End Date Husam Rosas MD [address] [place] [address] PCP - General 01/19/10 01/22/17 documented as of this encounter
--- OUTSIDE RECORDS SUMMARY | 2023-12-04 16:33 | XMS_ITS | Encounter Summary ---
Author Organization [facility] Address [facility] [place] [address] Care Team Providers Care Business Coordinator Name Role Phone Husam Rosas MD Primary Care Provider [phone] Reason for Referral * Consultation (Routine) - Closed Specialty Diagnoses / Procedures Referred By Contac t Referred To Contact Dermatology Diagnoses Partial symptomatic epilepsy with complex partial seizures, intractable, without status epilepticus Satya Wills MD [facility] [place] [address] [facility] [address] [place] [address] Referral ID Status Reason Start Date Expiration Date V isits Requested Visits Authorized [id number] Closed Consult, Test & Treat 02/10/2015 02/10/2016 1 1 Encounter Details Date Type Department Care Team (Late st Contact Info) Description 02/10/2015 3:00 PM EST Office [place] [address] Satya Wills MD [facility] [place] [address] Partial symptomatic epilepsy with complex partial seizures, [...] Sign Reading Time Taken Comments Blood Pressure 147/87 02/10/2015 2:46 PM EST Pulse 75 02/10/2015 2:46 PM EST Temperature - - Respiratory Rate - - Oxygen Saturation - - Inhaled Oxygen Concentration - - Weight 90.7 kg (200 lb) 02/10/2015 2:46 PM EST Height 168.9 cm (5' 6.5) 02/10/2015 2:46 PM EST Body Mass Index 31.8 02/10/2015 2:46 PM EST documented in this encounter Patient Instructions * Patient Instructions* Satya Wills MD - 02/10/2015 3:49 PM EST It is not clear what is going on. Obviously I'm disturbed by the worsening of seizures. I do not have a good explanation for the skin lesions. I doubt it is a drug rash. I suspect it is in some way related to HIV infection. I will have you seen in dermatology as soon as possible possibly on the same day that you come to see Dr. heaton in infectious disease. Dr. Allen will see you today for the headaches. Please get blood tests done here today before he leaves. Satya Wills MD Department of Neurology [address] [address], [place] [address] Pager: [phone], #[phone] Email: [email or web address] documented in this encounter Progress Notes * Satya Wills MD - 02/10/2015 3:22 PM EST Neurology clinic note Chief Complaint: [...] this has had an impact. 3. She has developed new skin lesions all over her arms the cause of which is at present unclear. Past medical history: Patient Active Problem List [...] bladder function are unremarkable. Physical Examination: BP 147/87 mmHg Pulse 75 Ht 168.9 cm (5' 6.5) Wt 90.719 kg (200 lb) BMI 31.80 kg/m2 LMP 11/26/2010 Head, eyes, ears, nose, and throat were normal. Lungs are clear. Heart was normal. Extremities were noteworthy for lesions on her arms that are hypoactive erythematous papules with exacerbation by excoriation. It looks to me like molluscum contagiosum and/or eczema Her mood was good and her speech [...] Studies: Orders Placed This Encounter Procedures ??? Hepatic Function Panel ??? Basic Metabolic Panel (non-fasting) ??? CBC (with Diff) ??? Sedimentation rate ??? Miscellaneous Lab request ??? Miscellaneous Lab request ??? Referral to Dermatology Impression: The situation is puzzling and unsatisfactory. [...] free for some monthsbut now appears to be lapsed. As I don't know what really going on, I'm not going to make any changes. I'm checking anticonvulsant drug levels. 2. Headaches are still not doing well. We have not done well with multiple attempts at prophylacticand symptomatic treatment. I am inclined to just leave her on hydroxyzine and meloxicam for now. She will have a follow-up appointment with Dr. Allen. An initial round of Botox injections and trial of prazozin and does not seem to have produced much improvement. 3. I do not know what is going on with her arms. It looks to me like a viral skin condition possibly molluscum contagiosum exacerbated by excoriations and possibly eczema. I am going to make a referral to dermatology. They may be able to see her on the same day that she comes here in February for her appointment in infectious diseases with Dr. Heaton. In the meantime I'm putting her on some hydrocortisone cream. 4. Psychiatrically she looks somewhat worse to me, more pressured and also more disorganized in herthinking Thank you for this consultation. I will see her back in 3 months, and we will coordinate with the ID clinic. Satya Wills MD [place] [address] Pager: [phone], #[phone] Email: [email or web address] cc: ROSA Allen MD documented in this encounter Plan of Treatment Upcoming Encounters Date Type Department Care Team (Late st Contact Info) Description 03/06/2024 1:30 PM EST Office [place] [address] Satya Wills MD [facility] [place] [address] Scheduled Referrals Name Type Priority Associated Diagnoses Orde r Schedule Referral to Dermatology Outpatient Referral Routine Partial symptomatic epilepsy with complex partial seizures, intractable, without status epilepticus Ordered: 02/10/2015 documented as of this encounter Results * Miscellaneous Lab request (02/10/2015 4:58 PM EST) Label Request received in lab. [facility] Blood specimen (specimen) 02/10/2015 4:58 PM EST 02/10/2015 5:09 PM EST Narrative Resulting Agency Comment Spec In Lab Satya Wills MD LAB SEND OUT ORDERAB LES Performing Organization Address City/[facility] Co de Phone Number [facility] * Sedimentation rate (02/10/2015 4:58 PM EST) Sedimentation Rate Automated 10 0 - 20 mm/hr [facility] Blood specimen (specimen) 02/10/2015 4:58 PM EST 02/10/2015 5:09 PM EST Narrative Resulting Agency Comment Spec In Lab Satya Wills MD HEMATOLOGY ORDERABLE S Performing Organization Address [facility] Co de Phone Number [facility] * (ABNORMAL) Basic Metabolic Panel (non-fasting) (02/10/2015 4:58 PM EST) Glucose 92 65 - 199 mg/dL [facility] Comment:Diabetes: >=200 mg/d L plus symptoms Blood Urea Nitrogen 12 8 - 18 mg/dL [facility] Creatinine 0.73 0.70 - 1.20 mg/dL [facility] Comment: Please note that the pediatric reference intervals supplied above were not validated at [facility]. Results from pediatric patients should be interpreted [...] the following links into your internet browser. [email or web address] Blood specimen (specimen) 02/10/2015 4:58 PM EST [...] Direct 0.2 0.0 - 0.3 mg/dL CERNER QUIANAENNIUM Blood specimen (specimen) 02/10/2015 4:58 PM EST 02/10/2015 5:09 PM EST Narrative Resulting Agency Comment Spec In Lab Satya Wills MD CHEMISTRY ORDERABLES Performing Organization Address City/State/[facility] Co de Phone Number CHIARA CLIFFORD documented in this encounter Visit Diagnoses Diagnosis Partial symptomatic epilepsy with complex partial seizures, intractable, without status epilepticus documented in this encounter Care Teams Business Coordinator Relationship Specialty Start Date End Date Husam Rosas MD [address] [place] [address] PCP - General 01/19/10 01/22/17 documented as of this encounter
--- OUTSIDE RECORDS SUMMARY | 2023-12-04 16:33 | XMS_ITS | Encounter Summary ---
Author Organization [facility] [place] [address] Care Team Providers Care Fire Equipment Inspector Helper Name Role Phone Husam Rosas MD Primary Care Provider [phone] Reason for Visit * Reason Comments Medication Refill Encounter Details Date Type Department Care Team (Late st Contact Info) Description 04/16/2014 Ref[place] [phone] Drew Heaton MD [facility] [place] [address] Human immunodeficiency virus (HIV) disease Social History [...] Telephone Encounter - Fely Wong RN - 04/16/2014 10:18 AM EST Last appt end of February VL 7300. Adherence issues remain a concern. Suzie Mars RN has been working on this. documented in this encounter Plan of Treatment Upcoming Encounters Date Type Department Care Team (Late st Contact Info) Description 03/06/2024 1:30 PM EST [place] [phone] Satya Wills MD [facility] [place] [address] documented as of this encounter Visit Diagnoses Diagnosis Human immunodeficiency virus (HIV) disease Human immunodeficiency virus [HIV] disease documented in this encounter Care Teams Fire Equipment Inspector Helper Relationship Specialty Start Date End Date Husam Rosas MD [address] [place] [address] PCP - General 01/19/10 01/22/17 documented as of this encounter
--- OUTSIDE RECORDS SUMMARY | 2023-12-04 16:34 | XMS_ITS | Encounter Summary ---
Author Organization [facility] [place] [address] Care Team Providers Care Town Manager Name Role Phone Husam Rosas MD Primary Care Provider [phone] Encounter Details Date Type Department Care Team (Late st Contact Info) Description 06/12/2013 2:15 PM EDT [place] [phone] Satya Wills MD [facility] [place] [address] Epilepsy (Primary Dx) Discharge Disposition: Home Social [...] Sign Reading Time Taken Comments Blood Pressure 132/78 06/12/2013 2:43 PM EDT Pulse 67 06/12/2013 2:43 PM EDT Temperature - - Respiratory Rate - - Oxygen Saturation - - Inhaled Oxygen Concentration - - Weight 88.9 kg (196 lb) 06/12/2013 2:43 PM EDT Height 168.9 cm (5' 6.5) 06/12/2013 2:43 PM EDT Body Mass Index 31.16 06/12/2013 2:43 PM EDT documented in this encounter Patient Instructions * Patient Instructions* Satya Wills MD - 06/12/2013 4:51 PM EDT I think you're doing reasonably well. Please stay on the same medications for seizure and headache control. I am sorry that you had the allergic reaction to clobazam. it seems to be clearing up. I would makeno change in medications at present. I would like to see you back in 3 months. Satya Wills MD [place] [address] Pager: [phone], #[phone] Email: [email or web address] documented in this encounter Progress Notes * Satya Wills MD - 06/12/2013 2:54 PM EDT Chief Complaint: Epilepsy. History or [...] frequent than before. Interval history: She is about the same. She stopped taking Lamictal, and feels better. Her skin is also better. She continues to have daily chronic headaches with daily sharp shooting pains on the right, and nausea, about once a week. She still complains of poor sleep. She is continuing to have seizures. These happen about once a month. I last saw her, we attempted acrossover from Klonopin to the new antiepileptic drug clobazam. Unfortunately this resulted in allergic reaction with rash. She is now back on Klonopin. She remains on Vimpat. The combination is agreeing with her quite well medical history: Patient Active Problem List Diagnosis Code ??? 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 HIV disease 042 ??? Dyslipidemia 272.4 ??? Migraine 346.90 ??? Obesity 278.00 ??? Depression 311 Review of systems: She is eating all right. Sleep is disturbed her bad dreams . Bowel and bladder function are unremarkable. Physical Examination: BP 132/78 Pulse 67 Ht 168.9 cm (5' 6.5) Wt 88.905 kg (196 lb) BMI 31.16 kg/m2 LMP 11/26/2010 Head, eyes, ears, nose, and throat were normal, Lungs are clear. Heart was normal. Extremities were unremarkable. Her mood was good and her speech was normal. At baseline her speech is little slow, and slightly pressured but I think it is normal for her. There was minimal external deviation of the right eye as previously noted. It seems to be getting better. Cranial nerves were otherwise unremarkable. Strength was normal. Coordination remains mildly impaired. Reflexes were brisk. Sensation was normal. Her gait was stable. Medications: Current Outpatient Prescriptions Medication Sig Dispense Refill ??? VIMPAT 200 mg Tab take 1 tablet by mouth twice a day 60 tablet 5 ??? atazanavir (REYATAZ) 300 mg capsule Take 1 capsule by mouth daily. 30 capsule 5 ??? abacavir-lamiVUDine (EPZICOM) 600-300 mg per tablet Take 1 tablet by mouth daily. 30 tablet 5 ? ? clonazePAM (KLONOPIN) 1 mg tablet Take 1 tab by mouth in am & 2 tabs in pm on daily 90 tablet 5 ??? meloxicam (MOBIC) 7.5 mg tablet take 1 tablet by mouth once daily 30 tablet 3 ??? hydrOXYzine (VISTARIL) 25 mg capsule take 1 capsule by mouth twice a day 60 capsule 3 ??? VIREAD 300 mg tablet take 1 tablet by mouth once daily 30 tablet 5 ??? ritonavir (RITONAVIR) 100 mg tablet Take 1 tablet by mouth daily. Please dispense tablets 30 tablet 11 ??? albuterol (PROVENTIL HFA;VENTOLIN [...] mouth 3 times daily as needed. ??? Laboratory Studies: None today Impression: The situation is stable, but seizures persist. 1. She is probably still having complex partial and secondary generalized seizures. She stopped Lamictal and felt better. I am inclined to do nothing different at present. As noted earlier, we have failed on 2 occasions in spite of extensive inpatient video- EEG recording to capture any seizures since she had surgery. This was in spite of taking her off of all antiepileptic medication. There is some doubt in my mind as to whether all the events that she is now having are epileptic, although mau's description was very convincing. The trial of clobazam unfortunately resulted in an allergic reaction now, and she is back on the combination of Vimpat and Klonopin 2. Headaches are still not doing well. We have not done well with multiple attempts at prophylacticand symptomatic treatment. I am inclined to just leave her on hydroxyzine and meloxicam for now. 3. Other medical problems include irritable bowel syndrome, hemorrhoids, and the chronic HIV infection. Those appear to be stable. Thank you for this consultation. I will see her back in 3 months, on the same day as her followup with infectious disease. Satya Wills MD [place] [address] Pager: [phone], #[phone] Email: [email or web address] cc: ROSA ROSAS MD documented in this encounter Plan of Treatment Upcoming Encounters Date Type Department Care Team (Late st Contact Info) Description 03/06/2024 1:30 PM EST Office [place] [address] Satya Wills MD [facility] [place] [address] documented as of this encounter Visit Diagnoses Diagnosis Epilepsy- Primary Unspecified epilepsy without mention of intractable epilepsy documented in this encounter Care Teams Town Manager Relationship Specialty Start Date End Date Husam Rosas MD [address] [place] [address] PCP - General 01/19/10 01/22/17 documented as of this encounter
--- OUTSIDE RECORDS SUMMARY | 2023-12-04 16:34 | XMS_ITS | Encounter Summary ---
Author Organization [facility] [place] [address] Care Team Providers Care Seismic Engineer Name Role Phone Husam Rosas MD Primary Care Provider [phone] Reason for Visit * Reason Onset Date Comments Follow-up 02/21/2013 Encounter Details Date Type Department Care Team (Late st Contact Info) Description 02/21/2013 Telephone Infectious Disease at [facility] [place] [phone] Rubina Bray RN Follow-up Social History Tobacco Use Types [...] Telephone Encounter - Rubina Bray RN - 02/21/2013 4:48 PM EST Returned pt's call. She said she was returning Charlene Latham RN call. She thought it was about lab results. Reviewed lab results including: Platelet slightly decrease at 121,000 LFT improved but still slightly elevated AST 55, ALT 66 CD4 stable at 294/10%, HIV rna 23,828, genotype pending Pt appeared surprised that her viral load was not still undetectable. When I reviewed past results with her, it has been significantly high since 2008. Pt reports that she has been doing well taking her meds. She could name her current meds (Epzicon, Viread, Reyataz, Norvir). She said she uses a pill box and takes them consistently before bed. Pt's speech was slow and pressured and maybe a little slurred. She said that she was not too bad today, maybe a little tired from the holidays. She volunteered that she was not drinking and was attending more meetings. Told pt that i would let her nurse know that we spoke. documented in this encounter Plan of Treatment Upcoming Encounters Date Type Department Care Team (Late st Contact Info) Description 03/06/2024 1:30 PM EST Office [place] [address] Satya Wills MD [facility] [place] [address] documented as of this encounter Visit Diagnoses Not on filedocumented in this encounter Care Teams Seismic Engineer Relationship Specialty Start Date End Date Husam Rosas MD [address] [place] [address] PCP - General 01/19/10 01/22/17 documented as of this encounter
--- OUTSIDE RECORDS SUMMARY | 2023-12-04 16:34 | XMS_ITS | Encounter Summary ---
Author Organization [facility] Address [facility] [place] [address] Care Team Providers Care Type Inspector Name Role Phone Husam Rosas MD Primary Care Provider [phone] [phone] Encounter Details Date Type Department Care Team (Late st Contact Info) Description 09/11/2012 Telephone Infectious Disease at [facility] [place] [address] Suzie Mars RN Social History Tobacco Use [...] Telephone Encounter - Suzie Mars RN - 09/11/2012 2:50 PM EDT Josiane calls today to report a myriad of unrelated medical complaints, including rectal bleeding, sometimes with BM's and sometimes without any bowel activity; she has had a 32 # weight loss over a twomonth period (confusing story of intentional vs unintentional weight loss);vomiting of clear yellowliquid; chest hurting r/t cough; skin lesions (different from most recent derm issues in e- ); andseizures during the day (reports she self-reduced her lamictal dosage for unclear reasons). Josiane has not had any alcohol for more than 3 mo ; she attends one AA meeting a day and sometimes two meetings a day. She is spending less time with her neighbor, Neo (who drinks heavily). She has not been involved with [employer] as she has not felt a connection with the [facility] front office specialist. Josiane had previously had a relationship with Cristine, but Cristine recently had a baby and is currently not working at [employer]. Consequently, Josiane describes herself as lonely and without a connection to anyone who knows of her HIV diagnosis. I suggested Josiane seek mental health services from the local count includes the [facility] mental health service organization or a private provider she had previously been seeing. Josiane reluctant to do so because her mother has told her they will commit me if they knowhow crazy I am. I assured Josiane no one would commit her, but did encourage her to seek mental health services to deal with loneliness and other issues r/t her HIV. A&P: Encouraged Josiane to write a list of all complaints and contact her PCP to help sort through all issues. She has seen Dr Hermosillo in the past for rectal bleeding; should be re-assessed. Also encouraged Josiane to contact Dr. Wills's office to discuss increase in daytime seizure activity and lamictal dosing Follow-up donald't with Dr. Sudarshan adrian. documented in this encounter Plan of Treatment Upcoming Encounters Date Type Department Care Team (Late st Contact Info) Description 03/06/2024 1:30 PM EST Office [place] [address] Satya Wills MD [facility] [place] [address] documented as of this encounter Visit Diagnoses Not on filedocumented in this encounter Care Teams Type Inspector Relationship Specialty Start Date End Date Husam Rosas MD [address] [place] [address] PCP - General 01/19/10 01/22/17 documented as of this encounter
--- OUTSIDE RECORDS SUMMARY | 2023-12-04 16:34 | XMS_ITS | Encounter Summary ---
Author Organization [facility] Address [facility] [place] [address] Care Team Providers Care Montessori Program Director Name Role Phone Husam Rosas MD Primary Care Provider [phone] Reason for Visit * Reason Onset Date Comments Other 11/08/2012 Encounter Details Date Type Department Care Team (Late st Contact Info) Description 11/08/2012 [place] [phone] Satya Wlils MD [facility] [place] [address] Other Social History Tobacco Use Types Packs/Day [...] encounter Miscellaneous Notes * Telephone Encounter - Satya Wills MD - 11/09/2012 3:11 PM EDT Neurology Attending Noted that she stopped lamictal.OK So long as she stays on Vimpat and Klonopin. Will see how she does Satya Wills * Addendum Note - Annie Zaragoza LPN - 11/09/2012 3:09 PM EDTAddended by: ANNIE ZARAGOZA on: 11/09/2012 03:09 PM Modules accepted: Orders * Telephone Encounter - Annie ZaragozaKENDRA - 11/09/2012 3:02 PM EDT Follow up call: I spoke to the pt who reports to me that she stopped taking her lamictal about 1 week ago because she says it made her dizzy and sometimes she would vomit. (See Note from 11/02/12) Pt is convinced the Lamictal is the cause of her symptoms. Pt's remarks were tangential and vague. Pt will see her PCP 11/16/[address] Wills on 12/05/[address] Suarez to be aware. Plan: I informed the pt that I would forward her message to Dr Wills. Pt was agreeable with this plan. * Telephone Encounter - Annie ZaragozaKENDRA - 11/09/2012 8:19 AM EDT 11/09/12 at 8:20 am Follow up call placed to patient. I asked the pt to return my call to discuss her issues with Lamdary. * Telephone Encounter - Lizzie Lynch - 11/08/2012 2:25 PM EDT Patient calls to speak with Annie regarding her Lamictal as she is not taking it. Pt feels it is causing her to many problems. Please call her back. documented in this encounter Plan of Treatment Upcoming Encounters Date Type Department Care Team (Late st Contact Info) Description 03/06/2024 1:30 PM EST [place] [address] Satya Wills MD [facility] [place] [address] documented as of this encounter Visit Diagnoses Not on filedocumented in this encounter Care Teams Montessori Program Director Relationship Specialty Start Date End Date Husam Rosas MD [address] [place] [address] PCP - General 01/19/10 01/22/17 documented as of this encounter
--- OUTSIDE RECORDS SUMMARY | 2023-12-04 16:34 | XMS_ITS | Encounter Summary ---
Author Organization [facility] Address [facility] [place] [address] Care Team Providers Care Helmet Hat Sweatband Puncher Name Role Phone Husam Rosas MD Primary Care Provider [phone] Encounter Details Date Type Department Care Team (Late st Contact Info) Description 10/18/2012 Telephone Infectious Disease at [facility] [place] [id number] Suzie Mars RN Social History Tobacco Use [...] Telephone Encounter - Suzie Mars RN - 10/18/2012 1:36 PM EDT S. I don't want to , of course I am taking my meds. Too many people are counting on me. I feel so good about myself now that I've lost weight. Everything is going so well O. TC to Josiane [place] [address]; CD4 217; CMP abn. Reviewed HIV medications with Josiane; she is taking four meds daily and states she never misses a dose; a telephone call to [facility]pharmacy earlier this week confirms Josiane has filled all four meds (Epzicom, reyataz, Viread, ritonavir) once a month for 6 months (this is as far back as we checked). Josiane states she had 1/2 glass of beer on Sep.29 and had nothing to drink in the 3 months prior to that date. She is attending an AA meeting once a day; has re- connected with Luis, someone she met in AA. While Luis is not her sponsor, he is a good source of support for principles of AA. Luis is trying to find her another sponsor. A&P: Josiane's labs remain abnormal despite her reports of medication compliance and abstinence from alcohol; the pharmacy refill schedule supports Josiane's claim she is taking all meds Josiane will call if any i problems documented in this encounter Plan of Treatment Upcoming Encounters Date Type Department Care Team (Late st Contact Info) Description 03/06/2024 1:30 PM EST [place] [address] Satya Wills MD [facility] [place] [address] documented as of this encounter Visit Diagnoses Not on filedocumented in this encounter Care Teams Helmet Hat Sweatband Puncher Relationship Specialty Start Date End Date Husam Rosas MD [address] [place] [address] PCP - General 01/19/10 01/22/17 documented as of this encounter
--- OUTSIDE RECORDS SUMMARY | 2023-12-04 16:34 | XMS_ITS | Encounter Summary ---
Author Organization [facility] Address [facility] [place] [address] Care Team Providers Care Perfumer Name Role Phone Husam Rosas MD Primary Care Provider [phone] Reason for Visit * Reason Comments Follow-up Encounter Details Date Type Department Care Team (Late st Contact Info) Description 07/12/2013 9:30 AM EDT Follow-Up [place] [id number] Andrew Ortega MD [facility] [place] [address] Fissure in ano (Primary Dx); Hemorrhoids Discharge Disposition: Home Social History Tobacco Use [...] Sign Reading Time Taken Comments Blood Pressure 131/92 07/12/2013 9:14 AM EDT Pulse 81 07/12/2013 9:14 AM EDT Temperature 36.5 ??C (97.7 ??F) 07/12/2013 9:14 AM ED T Respiratory Rate 16 07/12/2013 9:14 AM EDT Oxygen Saturation 96% 07/12/2013 9:14 AM EDT Inhaled Oxygen Concentration - - Weight 91.9 kg (202 lb 9.6 oz) 07/12/2013 9:14 A M EDT Height - - Body Mass Index 32.21 06/12/2013 2:43 PM EDT documented in this encounter Progress Notes * Yeimy Kong PA - 07/12/2013 2:13 PM EDT COLON & RECTAL SURGERY Follow-Up Office Visit Interval History: Josiane Pacheco is a 57 y.o. female with a past medical history of HIV disease on HAART, seizure disorder status post right temporal lobectomy, neoplastic colonic polyps, COPD and fissure in ano (s/p botulinum toxin chemical sphincterotomy in April 2008 (Dr. Hermosillo)) who presents today for evaluation of anal bleeding and pain with defecation. The patient was last seen in our clinic by Dr. Ortega in an2010 for similar symptoms, at which time proctoscopic examination to a distance of 25 cm wasnormal, and anoscopic examination revealed enlarged internal hemorrhoids/redundant rectal mucosa inthe right anterior, right posterior, and left lower quadrants. There was no evidence of an anal fissure. Given the patient's existing troubles with minor incontinence, and the possibility of surgicalexcision exacerbating those troubles, she elected for diet modification with a daily fiber supplement to try to bring symptoms under control. She has not returned to our clinic since that time. She returns now due to recurrence of symptoms. The patient reports that she initially did well after adding the daily fiber supplement to her diet. She continued to have occasional bleeding since her last visit, but it was much less in frequency and amount. Over the past 9 or 10 months, however, symptoms have become progressively more troublesome with more frequent bright red anal bleeding and sharp pain at the outlet with BMs. No new health problems have arisen. HIV has been well controlled, and the patient has been compliant with her HAART regimen. Appetite is good, but she has been refraining from eating due to the fear of pain that accompanies BM. She moves her bowels about 5 times a day, but this decreases to once every other day or so if she does not take Miralax. She takes Miralax once or twice a week. Stool consistency varies from loose and watery to very firm. The pain following BM tends to be much worse with looser stool. Sharp pain at the outlet with every BM lasts for 10-15 minutes following. Blood on the paper with almost every BM. She endorses urgency, as well as incontinence to loose stool once every other month. No prolapse. She endorses leakage and seepage from the rectum between BMs. No peristomal skin irritation. She is unable to discriminate between stool and gas frequently. No change in urinary habits (stress incontinence at baseline), no dysuria, no hematuria. Patient reports that her last colonoscopy was 2 years ago, with a few small benign polyps removed. Current Outpatient Prescriptions on File Prior to Visit Medication Sig Dispense Refill ??? VIMPAT 200 [...] by mouth 3 times daily as needed. Allergies Allergen Reactions ??? Lamictal (Lamotrigine) Per patient very dizzy, double vision, and hard to keep walking. ??? Topiramate Itching Physical Exam: Blood pressure 131/92, pulse 81, temperature 36.5 ??C (97.7 ??F), resp. rate 16, weight 91.9 kg (202 lb 9.6 oz), last menstrual period 11/26/2010, SpO2 96.00%. Inspection of the perineum reveals pristine perianal skin, with the exception of some small skin tags at the outlet. Anal examination reveals resting tone to be within normal limits; squeeze/augmentation was slightly diminished. RICK was negative for mass, ulceration or fluctuance, but was reported by patient to be intensely painful just inside the outlet in the anterior position. A time-out was conducted just before the start of the procedure to verify the correct patient and procedure, procedure location, and all relevant critical information. Anoscopic examination reveals enlarge internal hemorrhoids/redundant rectal mucosa in the right anterior, right posterior, and left lateral quadrants. There is a small superficial fissure in ano in the anterior midline of the anal mucosa, palpation of which was reported bythe patient to reproduce her symptom of pain. Impression: 1. Fissure in ano, anterior midline 2. Enlarged internal hemorrhoids Plan: Examination today confirms the presence of an anterior midline fissure in ano, which is the source of the patient's intense pain. There are also several enlarged hemorrhoids, and these may be adding to the patient's bleeding, but not her pain as there is no evidence of thrombosis. I believe the bleeding the patient is experiencing is related to both the internal hemorrhoids and the fissure.We recommend a regimen of daily fiber supplement such as Metamucil to help keep stool soft and bulky and easy to pass, as well as sitz baths 3-4 times a day for 10-15 minutes at a time to aid in healing. The patient was also prescribed topical nitroglycerin to be applied directly to the fissure TID. We believe treatment of the fissure with these measures may also provide relief of the hemorrhoid troubles. We will plan to have the patient RTC in 6 weeks for follow-up evaluation. If she continuesto have troubles with fissure at that time, we will plan to discuss the next steps in treatment, namely Botox injection versus fistulotomy. If the fissure is healed by that time, but the patient continues to have troubles with bleeding, we will reevaluate her for treatment measures for the hemorrhoids, most likely rubber band ligation. If her HIV disease remains well controlled, this should pose no barrier to the available treatment options. Will schedule a followup visit to see us in six weeks. Patient seen, examined and discussed with Dr. Andrew Ortega, and this note reflects our close collaboration and agreement. Yeimy Kong PA-C Division of Colon & Rectal Surgery [facility] [phone] C[facility] PCP: HUSAM ROSAS MD documented in this encounter Plan of Treatment Upcoming Encounters Date Type Department Care Team (Late st Contact Info) Description 03/06/2024 1:30 PM EST Office [place] [address] [facility] [place] [address] documented as of this encounter Visit Diagnoses Diagnosis Fissure in ano- Primary Anal fissure Hemorrhoids Unspecified hemorrhoids without mention of complication documented in this encounter Care Teams Perfumer Relationship Specialty Start Date End Date Husam Rosas MD [address] [place] [address] PCP - General 01/19/10 01/22/17 documented as of this encounter
--- OUTSIDE RECORDS SUMMARY | 2023-12-04 16:34 | XMS_ITS | Encounter Summary ---
Author Organization [facility] Address [facility] [place] [address] Care Team Providers Care Emt B Name Role Phone Husam Rosas MD Primary Care Provider [phone] [phone] Reason for Visit * Reason Comments Follow-up nursing assessment Encounter Details Date Type Department Care Team (Latest Contact Info) Description 02/08/2013 10:30 AM EST Follow-Up Infectious Disease at [facility] [place] [address] Drew Heaton MD [facility] [place] [address] Human immunodeficiency virus (HIV) disease (Primary Dx); CAH (chronic active hepatitis) Discharge Disposition: Home Social History Tobacco Use [...] Sign Reading Time Taken Comments Blood Pressure 131/81 02/08/2013 10:35 AM EST Pulse 72 02/08/2013 10:35 AM EST Temperature 36.9 ??C (98.5 ??F) 02/08/2013 10:[address] Respiratory Rate 16 02/08/2013 10:35 AM EST Oxygen Saturation - - Inhaled Oxygen Concentration - - Weight 89.1 kg (196 lb 8 oz) 02/08/2013 10:35 AM EST Height - - Body Mass Index 31.24 12/05/2012 1:11 PM EDT documented in this encounter Progress Notes * Drew Heaton MD - 02/08/2013 11:00 AM EST This is a scheduled appointment for an HIV infected woman last seen by me in clinic four months ago, since when she has continued to have a somewhat tough time. She complains of new pelvic pain, as well as ongoing rectal pain and bleeding, as well as several seizures in the last few weeks.. Blood pressure 131/81, pulse 72, temperature 36.9 ??C (98.5 ??F), resp. rate 16, weight 89.132 kg (196 lb 8 oz). Overweight woman in no apparent distress. NC/AT. EOMI. Skin without rash. Throat benign. Heart RRR no m/r/g. Lungs CTA. Abdomen benign. Neuro. grossly nonfocal. Baseline Data Serologies/Screening: Monitoring HIV DX: //1990 CDQ : 12/31/2010 Family Planning: Routine nutritional eval: Ophtho exam: Dental eval: Adherence score: Hep A IgG: Hep B sAb: 02/08/2013 Hep B cAb: (IgG): Hep B sA02/08/2013 eAg: eAb: DNA PCR: Hep C Ig02/08/2013 Genotype: Viral load: Anyt hx rx? : Y/N free text dates AFP: U/S: Liver Study: Toxo IgG: CMV IgG: RPR Titers: 12/31/2010 03/05/2008 10/31/2003 PPD: 03/02/2012 neg CXR: Rx status: Cervical pap: 03/02/2012 Normal 08/11/2010 Normal 05/27/2009 Normal Vag colpo: Last pelvic: Motor Vehicle Technician exam: 05/27/2009 Anal pap: Rectal colpo: CD4: 02/08/2013 10/05/2012 217 10 05/30/2012 264 10 Chris: 02/08/2013 VL: 02/08/2013 10/05/2012 16,303 05/30/2012 22,187 Max VL: 04/30/2003 28,700 Resist assays: 02/08/2013 07/26/2011 no resistance mutations 10/01/2010 no resistance Weights: 12/31/2010 97.977 12/16/2009 91.17 05/27/2009 83.91 Lipids: Total chol: 01/16/2009 207 LDL: 01/16/2009 115 HDL: 01/16/2009 68 Tri01/16/2009 121 Vaccines Influenza: 01/27/2013 Pneumovax: 09/16/2009 08/17/2001 Td: Tdap: 10/03/2008 HepA: 11/15/2002 HepB 20: 12/25/2002 HepB 40: HPV: Twinrix: Assessment and Plan: 1. HIV. Was doing well on current regimen after addition of tenofovir, but with persistent elevatedviral load, unremarkable genotype in February, and h/o not taking RTV. When seen in December 2010 she had again been on the correct regimen for 6 months and had a viral load down to 332, but thiswas again elevated to 19k in May 2011, followed by 1,518 6 weeks later after adherence counselling and then 627 in September and then 14,000 in February of this year, 22,000 in May, and 16,000 in September. Phenotype 10/01/10 was again without resistance, but unfortunately genotype was not obtained in September as planned. Labs for safety and efficacy every 3-4 months (including today) as long as all goes well, along with genotype today. I have been very perplexed by this and have been unable to sort out adherence issues - if PCR again elevated we will pursue this further with her pharmacies again. 2. Adherence. She states that she has been 100% adherent since last seen, and I reinforced the importance of remaining so. 3. Chemoprophylaxis. Started on Bactrim in February 2010 given CD4<200. 4. Immunoprophylaxis. Up to date, including flu vaccine locally. 5. Risk reduction. Not sexually since last seen - she has previously said that she is always safe. 6. Seizure disorder/headaches. She is under the care of Dr. Wills. 7. Psychiatric. Her mood is decent. She is again seeing a therapist. 8. Abnormal pap smear/gyro compass tester. Pap smear February 2012 was normal. Scheduled for Gym appointment for newpelvic pain. 9. Obesity. Not addressed today. 10. Hyperlipidemia. Not addressed today. 11. Smoking. Had stopped smoking in February, but is now still smoking. I previously strongly encouraged her to again try stopping and we explored her ambivalnce. 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 Not addressed by me today, but Suzie Mars saw her after me to address. 12. Rectal bleeding. Seen Dr. Hermosillo. Colonoscopy unremarkable. To schedule an appointment for surgical banding, but wants to sort out the Gym issues first. 13. General health care. Mammogram February 2012. Colonoscopy 04/28/10 revealed multiple polyps so will repeat in three years (2013). 14. Transaminitis. Significantly worse at last appointment, but it turns out she was drinking fairly significantly and has now stopped - repeat today, along with HBV and HCV serologies. 30 minutes [id number] time spent with the patient, 20 minutes of which was in discussion and counseling about management of HIV. Follow-up in 3-4 months. documented in this encounter Plan of Treatment Upcoming Encounters Date Type Department Care Team (Late st Contact Info) Description 03/06/2024 1:30 PM EST Office [place] [address] Satya Wills MD [facility] [place] [address] documented as of this encounter Procedures Procedure Name Priority Date/Time Associated Diagnosis Comments HIV QUANT Routine 02/08/2013 11:46 AM EST Human immunodeficiency virus (HIV) disease HIV 1 GENOTYPING Routine 02/08/2013 11:4 6 AM EST Human immunodeficiency virus (HIV) disease CD4 Routine 02/08/2013 11:46 AM EST Human immunodeficiency virus (HIV) disease DIFFERENTIAL, AUTOMATED Routine 02/08/2013 11:46 AM EST HEPATITIS C ANTIBODY Routine 02/08/2013 11:46 AM EST Human immunodeficiency virus (HIV) disease CAH (chronic active hepatitis) HIV-1 RNA, QUANTITATIVE, PCR Routine 02/08/2013 11:46 AM EST Human immunodeficiency virus (HIV) disease HEPATITIS B SURFACE ANTIBODY Routine 02/08/2013 11:46 AM EST Human immunodeficiency virus (HIV) disease CAH (chronic active hepatitis) HEPATITIS B SURFACE ANTIGEN Routine 02/08/2013 11:46 AM EST Human immunodeficiency virus (HIV) disease CAH (chronic active hepatitis) CBC (WITH DIFF) Routine 02/08/2013 11:46 AM EST Human immunodeficiency virus (HIV) disease COMPREHENSIVE METABOLIC PANEL Routine 02/08/2013 11:46 AM EST Human immunodeficiency virus (HIV) disease CAH (chronic active hepatitis) documented in this encounter Results * Differential, Automated (02/08/2013 11:46 AM EST) Neutrophil % 53.0 34.0 - 71.0 % [facility]ERNER MILLENNIUM Neutrophil Absolute 4.15 1.50 - 6.30 x10(3)/mcL [facility]ERN[facility] MILLENNIUM Lymph % 39.4 19.0 - 53.0 % CERNER MILLENNIUM Lymphocytes Abs 3.1 1.0 - 3.6 x10(3)/mcL CERNER MILLENNIUM Monocyte % 6.9 4.0 - 13.0 % CERNER MILLENNIUM Monocyte Abs 0.5 0.2 - 1.0 x10(3)/mcL CERNER MILLENNIUM Eos % 0.5 0.0 - 7.0 % CERNER MILLENNIUM Eosinophils Abs 0.0 0.0 - 0.5 x10(3)/mcL CERNER MILLENNIUM Basophil % 0.1 0.0 - 2.0 % CERNER MILLENNIUM Baso Absolute 0.0 0.0 - 0.2 x10(3)/mcL [facility]ERN[facility] MILLENNIUM Immature Gran % 0.10 0.00 - 0.66 % [facility] MILLENNI[facility] Comment: Immature granulocytes(IG's)percentage and absolute count will include metamyelocytes, myelocytes, and promyelocytes. Blood smears from CBCs yielding IG's will be scanned manually for concordance. If this scan disagrees with the automated IG or if promyelocytes are noted, a manual differential will be performed. Immature Gran Absolute 0.01 0.00 - 0.05 x10(3)/mcL [facility] Blood specimen (specimen) 02/08/2013 11:46 AM EST 02/08/2013 11:55 AM EST Drew Haeton MD HEMATOLOGY ORDERABLE S Performing Organization Address [facility] Phone Number [facility] * HIV Quant (02/08/2013 11:46 AM EST) [facility] HIV Viral Load Result (Qualitative) * RESULT: 58437 copies/mL * INDICATION FOR STUDY: HIV-1 Infection [...] Administration. Robert Fuentes, Ph.D. Director, Molecular Pathology [facility] Comment: [VERIFIED DATE]02.18.13 Verified By:Cherry Gomez (Electronic Signature) Blood specimen (specimen) 02/08/2013 11:46 AM EST 02/15/2013 8:35 AM EST Narrative Resulting Agency Comment Spec In Lab Drew Heaton MD HEMATOLOGY ORDERABLE S Performing Organization Address [facility] Phone Number [facility] * Hepatitis C Antibody (02/08/2013 11:46 AM EST) [facility] Hepatitis C Antibody Negative Negative [facility] Comment: Please note that as of 10/02/2012, the testing methodology for this assay has changed. However there is no change in the interpretation of the results. Blood specimen (specimen) 02/08/2013 11:46 AM EST 02/08/2013 11:55 AM EST Narrative Resulting Agency Comment Spec In Lab Drew Heaton MD CHEMISTRY ORDERABLES Performing Organization Address [facility] de Phone Number [facility] * Hepatitis B Surface Antigen (02/08/2013 11:46 AM EST) [facility] Hepatitis B Surface Antigen Negative Negative [facility] Comment: Please note that as of 10/02/2012, the testing methodology for this assay has changed. However there is no change in the interpretation of the results. Blood specimen (specimen) 02/08/2013 11:46 AM EST 02/08/2013 11:55 AM EST Narrative Resulting Agency Comment Spec In Lab Drew Heaton MD CHEMISTRY ORDERABLES Performing Organization Address [facility] Phone Number [facility] * Hepatitis B Surface Antibody (02/08/2013 11:46 AM EST) [facility] Hepatitis B Surface Antibody Negative [facility] Comment: Please note that as of 10/02/2012, the testing methodology for this assay has changed. However there is no change in the interpretation of the results. Expected Results: Vaccinated: Positive Unvaccinated: Negative Please note: A positive result for this assay is consistent with a concentration of anti-HBs antibodies >10mIU/ml, which indicates that anti-HBs antibodies have been detected at levels consistent with protective immunity against HBV infection. Blood specimen (specimen) 02/08/2013 11:46 AM EST 02/08/2013 11:55 AM EST Narrative Resulting Agency Comment Spec In Lab Drew Heaton MD CHEMISTRY ORDERABLES Performing Organization Address [facility] de Phone Number [facility] * (ABNORMAL) Comprehensive metabolic panel (non-fasting) (02/08/2013 11:46 AM EST) [facility] Glucose 86 60 - 199 mg/dL [facility] Comment:Diabetes: >=200 mg/d L plus symptoms Blood Urea Nitrogen 13 8 - 18 mg/dL [facility] Creatinine 0.93 0.70 - 1.20 mg/dL [facility] Comment: Please note that the pediatric reference intervals supplied above were not validated at [facility]. Results from pediatric patients should be interpreted in conjunction to the patient's age, height and muscle mass. Sodium 138 135 - 145 mmol/L [facility]ERN[facility] MILLENNIUM Potassium 3.8 3.5 - 5.0 mmol/L [facility] Comment: Please note: ??Patients with WBC >100,000 may have falsely elevated Potassium levels. ??For accurate Potassium quantification in these patients send serum separator tube (gold top) for subsequent determinations. ??Contact the Clinical Chemistry Laboratory if there are any questions. Chloride 98 98 - 107 mmol/L CERNER MILLENNIUM Carbon Dioxide 24 22 - 31 mmol/L [facility]ERN[facility] MILLENNIUM Anion Gap 16(H) 5 - 15 mmol/L [facility]ERN[facility] MILLENNIUM Calcium 9.9 8.5 - 10.5 mg/dL [facility]ERN[facility] MILLENNIUM Protein, Total 8.5(H) 6.4 - 8.3 gm/dL [facility]ERN[facility] MILLENNIUM Albumin 4.5 3.2 - 5.2 gm/dL [facility]ERN[facility] MILLENNIUM Aspartate Aminotransferase 55(H) 0 - 30 unit/L CERN[facility] MILLENNIUM Alanine Aminotransferase 66(H) 0 - 30 unit/L CERNER MILLENNIUM Alkaline Phosphatase 59 40 - 104 unit/L CERNER MILLENNIUM Bilirubin, Total 4.4(H) 0.2 - 1.3 mg/dL [facility] MILLENNIUM Bilirubin, Direct 0.5(H) 0.0 - 0.3 mg/dL CERNER MILLENNIUM Est [...] the following links into your internet browser. http://www.nkdep.nih.gov/lab-evaluation.shtml http://www.kidney.org/professionals/ Blood specimen (specimen) 02/08/2013 11:46 AM EST 02/08/2013 11:55 AM EST Narrative Resulting Agency Comment Spec In Lab Drew Heaton MD CHEMISTRY ORDERABLES [facility] * HIV 1 Genotyping (02/08/2013 11:46 AM EST) HIV-1 Genotype Test ?Result ??Flag ??Unit ??RefValue --------- HIV-1 Genotypic Drug ?INTERP ??Resistance, P Interpretation of following results: RESIST= Resistant SUSC= No evidence of resistance LA= Possible resistance IE= Insufficient evidence ??Reverse Transcriptase ?Mutations No relevant mutations detected. ??Abacavir ?SUSC ??Didanosine ?SUSC ??Lamivudine/Emtr icitabine ?SUSC ??Stavudine ? SUSC ??Tenofovir ? SUSC ??Zidovudine ?SUSC ??Efavirenz ? SUSC ??Etravirine ?SUSC ??Nevirapine ?SUSC ??Rilpivirine ? SUSC ??Protease Mutations No relevant mutations detected. ??Atazanavir ?SUSC ??Atazanavir with Ritonavir ? SUSC ??Darunavir with Ritonavir ?SUSC ??Fosamprenavir ? SUSC ??Fosamprenavir with Ritonavir ??SUSC ??Indinavir ? SUSC ??Indinavir with Ritonavir ?SUSC ??Lopinavir with Ritonavir ?SUSC ??Nelfinavir ?SUSC ??Saquinavir with Ritonavir ? SUSC ??Tipranavir with Ritonavir ? SUSC Testing was performed by RT-PCR and DNA sequencing method (Scaled Agile HIV-1 Genotyping Kit; [employer] and results were based on steward/stewardess club car's most recent FDA-approved interpretive guidelines. Results obtained by different assay methods should not be used interchangeably. Test Performed by: [place] [address] Certified Wellness Program Coordinator: Greg Frazier III, M.D. [facility] Blood specimen (specimen) 02/08/2013 11:46 AM EST 02/18/2013 3:53 PM EST Narrative Resulting Agency Comment Spec In Lab Drew Heaton MD LAB SEND OUT ORDERAB LES [facility] ARAYAENNIUM * (ABNORMAL) CD4 (02/08/2013 11:46 AM EST) CD3% 93(H) 55 - 82 % CERNER MILLENNIUM CD3 ABS 2866(H) 731 - 2438 /mcl CERNER MILLENNIUM CD 4% 10(L) 35 - 61 % CERNER MILLENNIUM CD 4ABS 294(L) 503 - 1736 /mcl [facility] Comment: [...] flow cytometry (CD3, CD4, CD8, CD19, CD16+56) Blood specimen (specimen) 02/08/2013 11:46 AM EST 02/08/2013 11:55 AM EST Narrative Resulting Agency Comment Spec In Lab Drew Heaton MD HEMATOLOGY ORDERABLE S CERNER MILLENNIUM * (ABNORMAL) CBC (with Diff) (02/08/2013 11:46 AM EST) White Blood Cell 7.8 4.0 - 10.0 x10(3)/mc L CERNER MILLENNIUM Red Blood Cell 4.54 3.93 - 5.22 x10(6)/mc L CERNER MILLENNIUM Hemoglobin 16.1(H) 11.2 - 15.7 gm/dL CERNER MILLENNIUM Hematocrit 45.6(H) 34.0 - 45.0 % CERNER MILLENNIUM Mean Cell Volume 100.4(H) 79.0 - 94.0 fL CERNER MILLENNIUM Mean Cell Hemoglobin 35.5(H) 26.6 - 32.2 pg CERNER MILLENNIUM Mean Cell Hemoglobin Concentration 35.3 32.0 - 36.5 gm/dL CERNER MILLENNIUM Platelet 121(L) 145 - 370 x10(3)/mc L CERNER MILLENNIUM RDW Standard Deviation 47.2(H) 35.0 - 46.0 fL CERNER MILLENNIUM RDW coefficient of variation 13.0 10.9 - 14.4 % CERNER MILLENNIUM Mean Platelet Volume 10.2 9.0 - 12.0 fL [facility] Blood specimen (specimen) 02/08/2013 11:46 AM EST 02/08/2013 11:55 AM EST Narrative Resulting Agency Comment Spec In Lab Drew Heaton MD HEMATOLOGY ORDERABLE S [facility] CLIFF[facility] documented in this encounter Visit Diagnoses Diagnosis Human immunodeficiency virus (HIV) disease- Primary Human immunodeficiency virus [HIV] disease CAH (chronic active hepatitis) Other chronic hepatitis documented in this encounter Care Teams Emt B Relationship Specialty Start Date End Date Husam Rosas MD [address] [facility] [place] [address] PCP - General 01/19/10 01/22/17 documented as of this encounter
--- OUTSIDE RECORDS SUMMARY | 2023-12-04 16:34 | XMS_ITS | Encounter Summary ---
Author Organization [facility] [place] [address] Care Team Providers Care Sawmill Production Worker Name Role Phone Husam Rosas MD Primary Care Provider [phone] [phone] Reason for Visit * Reason Comments Dermatitis Encounter Details Date Type Department Care Team (Late st Contact Info) Description 07/09/2012 2:15 PM EDT Office Visit Dermatology [address] [facility] [address] [place] [address] Alexis Teixeira MD [address] [place] [address] RD, [place] [address] Rosacea (Primary Dx) Social History Tobacco Use Types [...] Progress Notes * Alexis Teixeira MD - 07/09/2012 2:46 PM EDT Problem: Facial dermatitis. Josiane is a 56-year-old, HIV-positive woman who for the last two months has had a facial rash. It cline and stings. She states that she looks like Andrew Estes when it is bad. The patient states that she grew up in [place]. She has had a fair amount of sun over the years and she would also like to have a general skin checkup. She was given initially metronidazole 0.05% cream and used it for a month and a half, but it tended to sting and burn and did not really seem to help that much. She then started using ketoconazole 2% cream and found that this also would sting and burn, and very shortly after starting it, things did start to improve. Physical examination reveals a pleasant 56-year-old whose facial findings today are, by her report, much less impressive than just a few short weeks ago. She has erythematous papules on the glabellar area, the nose, and the cheeks in a rosaceiform pattern. She has seborrheic keratoses present on her back, stucco keratosis present widely over the arms. Assessment and Plan: 1. Rosacea, erythematous, papular, facial. a. Recommended trial of metronidazole 0.05% lotion; hopefully the lotion will be less irritating for her, and 30 mL was dispensed with three refills. Apply b.i.d. until burning and stinging and dermatitic findings are controlled; then use once a day on a preventative basis. b. Discussed the etiology of rosacea. 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 c. I recommended avoiding hot, spicy foods. Triggering factors could also include a glass of wine or alcohol, significant heat/sun exposure. Avoid these if possible. d. The patient's current soap does not seem to irritate or bother her skin; may continue with her antibacterial soap product. e. The patient knows it will take about a month and a half to achieve control, and then taper down to daily applications. f. I discussed with the patient that I suspect that the metronidazole really is largely to thank for her facial improvement, not the ketoconazole, as it really does take two and a half months to see improvement with this treatment. 2. Seborrheic keratoses, back; and stucco keratoses, arms and legs. a. Patient reassured about benign lesions. b. No treatment necessary. c. Return to the clinic here p.r.n. Copy: Husam Rosas M.D. documented in this encounter Plan of Treatment Upcoming Encounters Date Type Department Care Team (Late st Contact Info) Description 03/06/2024 1:30 PM EST Office Visit Neurology at [place] [phone] Satya Wills MD [facility] [place] [address] documented as of this encounter Visit Diagnoses Diagnosis Rosacea- Primary documented in this encounter Care Teams Sawmill Production Worker Relationship Specialty Start Date End Date Husam Rosas MD [address] [facility] [place] [address] PCP - General 01/19/10 01/22/17 documented as of this encounter
--- OUTSIDE RECORDS SUMMARY | 2023-12-04 16:34 | XMS_ITS | Encounter Summary ---
Author Organization [facility] [place] [address] Care Team Providers Care Sign Designer Name Role Phone Husam Rosas MD Primary Care Provider [phone] [phone] Reason for Visit * Reason Comments Medication Refill Encounter Details Date Type Department Care Team (Late Contact Info) Description 04/05/2013 [place] [phone] Jayla Angel APRN [facility] [place] [address] Social History Tobacco Use Types Packs/Day Years [...] 1:30 PM EST Office [place] [phone] Satya Wills MD [facility] [place] [address] documented as of this encounter Visit Diagnoses Not on filedocumented in this encounter Care Teams Sign Designer Relationship Specialty Start Date End Date Husam Rosas MD [address] [place] [address] PCP - General 01/19/10 01/22/17 documented as of this encounter
--- OUTSIDE RECORDS SUMMARY | 2023-12-04 16:34 | XMS_ITS | Encounter Summary ---
Author Organization [facility] Address [facility] [place] [address] Care Team Providers Care Director Regulatory Affairs Name Role Phone Husam Rosas MD Primary Care Provider [phone] [phone] Reason for Visit * Reason Comments Medication Refill Encounter Details Date Type Department Care Team ([facility] Contact Info) Description 08/17/2012 Ref[place] [phone] Drew Heaton MD [facility] DR [place] [address] Social History Tobacco Use Types Packs/Day Years [...] Upcoming Encounters Date Type Department Care Team ([facility] Contact Info) Description 03/06/2024 1:30 PM EST [place] [address] Satya Wills MD [facility] [place] [address] documented as of this encounter Visit Diagnoses Not on filedocumented in this encounter Care Teams Director Regulatory Affairs Relationship Specialty Start Date End Date Husam Rosas MD [address] [place] [address] PCP - General 01/19/10 01/22/17 documented as of this encounter
--- OUTSIDE RECORDS SUMMARY | 2023-12-04 16:34 | XMS_ITS | Encounter Summary ---
Author Organization [facility] Address [facility] [place] [address] Care Team Providers Care Processing Supervisor Name Role Phone Husam Rosas MD Primary Care Provider [phone] Encounter Details Date Type Department Care Team (Late st Contact Info) Description 06/24/2013 Telephone Infectious Disease at [facility] [place] [phone] Suzie Mars RN Social History Tobacco Use [...] Telephone Encounter - Suzie Mars RN - 06/24/2013 2:41 PM EDT TC to Josiane to give her the most recent lab results; Speech was slow, minimal slurring; telling many stories - thoughts all over the place; I just didn't want to tell you, Suzie, that I was self-medicating. I still think about it, but I am not drinking now. When it got so cold I just didn't go out to my AA meetings I didn't want to go out and get my medications on time (admits 3-4 days would go by without picking up meds) my son doesn't like me any more. He has a better family now (girl friend's family) ; dreading Mother's Day;- crying so much about how much son yelled at her (he brought up how much Josiane drank when he was younger) Problem-solved with Josiane; offered suggestions for coping. Walking in eves. ; attends AA meetings Write a letter to son for Mother's Day on what it means to Josiane to be a mom; share memories Forgive and move on Volunteer to serve a dinner on Mother's Day Go to a movie Josiane said she could consider some of these suggestions; she struggles day to day with many issues Josiane able to tell me which medications she is taking and how often; takes all HIV meds in the charly.;consistent timing; often wakes at 0300 with nausea; eats crax for relief Wants to stay with this charly plan Josiane reports increased rectal bleeding from hemorrhoids; very afraid to make appointment with Dr. Ortega; [facility] can provide transportation; role playing over the phone on how to word the request; Josiane no longer participates with [employer] [facility] ; she doesn't trust that her privacy is protected.- encouraged to re- engage with [facility] for support and transportation Josiane not interested in smoking cessation at this time; in fact, she thinks she is smoking more; currently one pack every 3-4 days Concentrating hard on not drinking and this is where she wants to put her effort. documented in this encounter Plan of Treatment Upcoming Encounters Date Type Department Care Team (Late st Contact Info) Description 03/06/2024 1:30 PM EST [place] [address] Satya Wills MD [facility] [place] [address] documented as of this encounter Visit Diagnoses Not on filedocumented in this encounter Care Teams Processing Supervisor Relationship Specialty Start Date End Date Husam Rosas MD [address] [place] [address] PCP - General 01/19/10 01/22/17 documented as of this encounter
--- OUTSIDE RECORDS SUMMARY | 2023-12-04 16:34 | XMS_ITS | Encounter Summary ---
Author Organization [facility] Address [facility] [place] [address] Care Team Providers Care Space Physicist Name Role Phone Husam Rosas MD Primary Care Provider [phone] Reason for Visit * Reason Comments Medication Refill Encounter Details Date Type Department Care Team (Late Contact Info) Description 10/16/2012 [place] [address] Satya Wills MD [facility] [place] [address] Social History Tobacco Use Types Packs/Day Years [...] 1:30 PM EST [place] [address] Satya Wills MD [facility] [place] [address] documented as of this encounter Visit Diagnoses Not on filedocumented in this encounter Care Teams Space Physicist Relationship Specialty Start Date End Date Husam Rosas MD [address] [place] [address] PCP - General 01/19/10 01/22/17 documented as of this encounter
--- OUTSIDE RECORDS SUMMARY | 2023-12-04 16:34 | XMS_ITS | Encounter Summary ---
Author Organization [facility] [place] [address] Care Team Providers Care Keno Writer Name Role Phone Husam Rosas MD Primary Care Provider [phone] Reason for Visit * Reason Comments Medication Refill Encounter Details Date Type Department Care Team (Late Contact Info) Description 02/12/2013 Refill [place] [phone] Drew Heaton MD [facility] [place] [address] HIV (human immunodeficiency virus infection) (Primary Dx) [...] Telephone Encounter - Suzie Mars RN - 02/12/2013 5:07 PM EST Request received for renewal of Viread to be sent to Clarissa Hodge in [facility]; prescription sent toDr. Heaton for signature documented in this encounter Plan of Treatment Upcoming Encounters Date Type Department Care Team (Late Contact Info) Description 03/06/2024 1:30 PM EST Office [place] [phone] Satya Wills MD [facility] [place] [address] documented as of this encounter Visit Diagnoses Diagnosis HIV (human immunodeficiency virus infection)- Primary Asymptomatic human immunodeficiency virus (HIV) infection status documented in this encounter Care Teams Keno Writer Relationship Specialty Start Date End Date Husam Rosas MD [address] [place] [address] PCP - General 01/19/10 01/22/17 documented as of this encounter
--- OUTSIDE RECORDS SUMMARY | 2023-12-04 16:34 | XMS_ITS | Encounter Summary ---
Author Organization [facility] [place] [address] Care Team Providers Care Sales Effectiveness Manager Name Role Phone Husam Rosas MD Primary Care Provider [phone] Encounter Details Date Type Department Care Team (Late st Contact Info) Description 12/05/2012 12:45 PM EDT [place] [phone] Satya Wills MD [facility] [place] [address] Epilepsy (Primary Dx) Discharge Disposition: Home Social [...] Sign Reading Time Taken Comments Blood Pressure 128/76 12/05/2012 1:11 PM EDT Pulse 73 12/05/2012 1:11 PM EDT Temperature - - Respiratory Rate - - Oxygen Saturation - - Inhaled Oxygen Concentration - - Weight 89.2 kg (196 lb 9.6 oz) 12/05/2012 1:11 P M EDT Height 168.9 cm (5' 6.5) 12/05/2012 1:11 PM EDT Body Mass Index 31.26 12/05/2012 1:11 PM EDT documented in this encounter Patient Instructions * Patient Instructions* Satya Wills MD - 12/05/2012 2:21 PM EDT I think you're doing quite well. Seizure control seems about the same, and I'm glad you're feeling better off the Lamictal. Please make no change at this time. Habits you back in 2 months Satya Wills MD [place] [address] Pager: [phone], #[phone] Email: [email or web address] documented in this encounter Progress Notes * Satya Wills MD - 12/05/2012 1:52 PM EDT Chief Complaint: Epilepsy. History or [...] a week. She still complains of poor sleep medical history: Patient Active Problem List Diagnosis Code ??? 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 HIV disease 042 ??? Dyslipidemia 272.4 ??? Migraine 346.90 ??? Obesity 278.00 ??? Depression 311 Review of systems: She has lost a fair amount of weight, she says intentionally. Sleep is disturbed her bad dreams . Bowel and bladder function are unremarkable. Physical Examination: BP 128/76 Pulse 73 Ht 168.9 cm (5' 6.5) Wt 89.177 kg (196 lb 9.6 oz) BMI 31.26 kg/m2 Head, eyes, ears, nose, and throat were normal, Lungs are clear. Heart was normal. Extremities were unremarkable. Her mood was good and her speech was normal. There was minimal external deviation of the right eye as previously noted. It seems to be getting better. Cranial nerves were otherwise unremarkable. Strength was normal. Coordination remains mildly impaired. Reflexes were brisk. Sensation was normal. Her gait was stable. Medications: Current Outpatient Prescriptions Medication Sig Dispense Refill ??? hydrOXYzine (VISTARIL) 25 mg capsule take 1 capsule by mouth twice a day 60 capsule 5 ??? abacavir-lamiVUDine (EPZICOM) 600-300 mg per tablet Take 1 tablet by mouth daily. 30 tablet 5 ??? atazanavir (REYATAZ) 300 mg capsule Take 1 capsule by mouth daily. 30 capsule 5 ??? clonAZEpam (KLONOPIN) 1 mg tablet take 1 tablet by mouth every morning and 2 every evening 90 tablet 5 ??? tenofovir (VIREAD) 300 mg tablet Take 1 tablet by mouth daily. 30 tablet 5 ??? ritonavir (RITONAVIR) 100 mg tablet Take 1 tablet by mouth daily. Please dispense tablets 30 tablet 11 ??? VIMPAT 200 mg Tab take 1 tablet by mouth twice a day 60 tablet 5 ??? meloxicam (MOBIC) 7.5 mg tablet take 1 tablet by mouth once daily 30 tablet 11 ??? albuterol (PROVENTIL HFA;VENTOLIN [...] by mouth 3 times daily as needed. Laboratory Studies: None today CBC chemistry and liver profile normal at her last visit Impression: The situation is stable. She is probably still having complex partial and secondary generalized seizures. I think we have done most of what we can at the moment with regard to medical management. She stopped Lamictal, without telling me, and it seems without a deterioration in seizure control. I am inclined to do nothing different at present. Clobazam would be the next logical choice, as a replacement for Klonopin. As noted earlier, we have failed on 2 occasions in spite of extensive inpatient video- EEG recording to capture any seizures since she had surgery. This was in spite of taking her off of all antiepileptic medication. There is some doubt in my mind as to whether all the events that she is now having are ep ileptic, although her son's description was very convincing. 2. Headaches are still not doing well. We have not done well with multiple attempts at prophylacticand symptomatic treatment. I am inclined to just leave her on meloxicam for now. 3. Other medical problems include irritable bowel syndrome, hemorrhoids, and the chronic HIV infection. Those appear to be stable. Thank you for this consultation. I will see her back in 2 months, on the same day as her followup with infectious disease. Satya Wills MD [place] [address] Pager: [phone], #[phone] Email: [email or web address] cc: ROSA ROSAS MD documented in this encounter Plan of Treatment Upcoming Encounters Date Type Department Care Team (Late st Contact Info) Description 03/06/2024 1:30 PM EST [place] [address] Satya Wills MD [facility] [place] [address] documented as of this encounter Visit Diagnoses Diagnosis Epilepsy- Primary Unspecified epilepsy without mention of intractable epilepsy documented in this encounter Care Teams Sales Effectiveness Manager Relationship Specialty Start Date End Date Husam Rosas MD [address] [place] [address] PCP - General 01/19/10 01/22/17 documented as of this encounter
--- OUTSIDE RECORDS SUMMARY | 2023-12-04 16:34 | XMS_ITS | Encounter Summary ---
Author Organization [facility] Address [facility] [place] [address] Care Team Providers Care Preschool Special Education Teacher Name Role Phone Husam Rosas MD Primary Care Provider [phone] Reason for Visit * Reason Comments Medication Refill Encounter Details Date Type Department Care Team (Late Contact Info) Description 04/05/2013 [place] [address] Satya Wills MD [facility] [place] [address] Social History Tobacco Use Types Packs/Day Years [...] 1:30 PM EST [place] [address] Satya Wills MD [facility] [place] [address] documented as of this encounter Visit Diagnoses Not on filedocumented in this encounter Care Teams Preschool Special Education Teacher Relationship Specialty Start Date End Date Husam Rosas MD [address] [place] [address] PCP - General 01/19/10 01/22/17 documented as of this encounter
--- OUTSIDE RECORDS SUMMARY | 2023-12-04 16:34 | XMS_ITS | Encounter Summary ---
Author Organization [facility] Address [facility] [place] [address] Care Team Providers Care Wood And Hardware Outfitter Name Role Phone Elias Rosas MD Primary Care Provider [phone] [phone] Reason for Visit * Reason Comments Gynecologic Exam last pap 03/02/12 WNL/ -HPV Encounter Details Date Type Department Care Team (Late st Contact Info) Description 03/04/2013 2:15 PM EST Office Visit Obstetrics [place] [phone] Licha Orellana APRN [facility] OBSTETRICS & [place] [address] Cervical cancer screening; Yeast infection; Acute UTI (urinary tract infection); Screening examination for sexually transmitted disease; Bacterial vaginosis Discharge Disposition: Home Social History Tobacco Use [...] Reading Time Taken Comments Blood Pressure 122/76 03/04/2013 2:03 PM EST Pulse - - Temperature - - Respiratory Rate - - Oxygen Saturation - - Inhaled Oxygen Concentration - - Weight 93.2 kg (205 lb 8 oz) 03/04/2013 2:03 PM EST Height 168.9 cm (5' 6.5) 03/04/2013 2:03 PM EST Body Mass Index 32.67 03/04/2013 2:03 PM EST documented in this encounter Progress Notes * Licha Orellana APRN - 03/04/2013 2:36 PM EST Josiane Pacheco [id number] ELIAS ROSAS MD 03/04/2013 Gynecologic Exam Josiane Pacheco is a 57 y.o. woman who presents today for an annual exam. 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 States that she feels dirty Hx of abnormal paps in distant past, no treatment needed, pap last year WNL with negative HPV Sexually active in 08/2012 with Neo- her old BF- he had had another partner as well. Consents to STIscreen today) No breast or bowel concerns/complaints. Did decline a rectal exam today- states has had some rectalbleeding and will talk to her PCP about it. Holidays are hard for her, this year her son came around a few times which helped. Health Maintenance: Mammogram 2011- due for one now- she will schedule for 03/2013, when she is at [facility] next time Past Medical History Diagnosis Date ??? HIV disease 05/28/2010 No past surgical history on file. Health Related Habits: Nonsmoker. Infrequent ETOH use. Social History: living alone at this time Family History: Mother: 84 and VERY active in [place]- still working with the government and driving Father: Siblings: Sister lives with her mother, she doesn't get along with her Outpatient Prescriptions Marked as Taking for the 03/04/13 encounter (Office Visit) with Licha Orellana APRN Medication Sig Dispense Refill ??? VIREAD 300 mg tablet take 1 tablet by mouth once daily 30 tablet 5 ??? VIMPAT 200 mg Tab take 1 tablet by mouth twice a day 60 tablet 5 ??? hydrOXYzine (VISTARIL) 25 mg [...] 2 every evening 90 tablet 5 ??? ritonavir (RITONAVIR) 100 mg tablet Take 1 tablet by mouth daily. Please dispense tablets 30 tablet 11 ??? meloxicam (MOBIC) 7.5 mg tablet take [...] mouth 3 times daily as needed. Allergies as of 03/04/2013 - Review Complete 03/04/2013 Allergen Reaction Noted ??? Lamictal (lamotrigine) 12/05/2012 ??? Topiramate Itching Physical Examination: BP 122/76 Ht 168.9 cm (5' 6.5) Wt 93.214 kg (205 lb 8 oz) BMI 32.67 kg/m2 LMP 11/26/2010 NAD. NC/AT. A&Ox3. Pleasant. Breasts: no dominant masses, no discharge, no lymphadenopathy Abdomen: soft, nontender, no organomegaly Pelvic External genitalia: no fusion noted, very red from above the clitoris to tonny labia minora . BSU: normal Vagina: normal with no lesions, posterior vaginal wall w/laxity, some prolapse noted. Cervix: no CMT, pink- anterior tucked high Uterus: R/V, normal size, shape and consistency Adnexa: nontender, no masses palpated Rectovaginal exam: declines Wet mount: +clue ++ whiff, 1 yeast seen , few WBCs, no trich seen Urine clean catch: +2 leuks, +nitrites Impression: -bacterial vaginosis -probable yeast infection -UTI Plan: Health Maintenance: Pap smear , GC and chlamydia done today. Reviewed BSE. Reinforcement re: positive health behaviors. Reviewed that BV is just an overgrowth, as well as the yeast. Very normal infections. Will treat with flagyl 500 mg 1 po bid for 7 days and diflucan 150 mg, 1 every 3 days for 3 doses. UTI-bactrim ds 1 po bid for 5 days, force fluids - to call if has fever >100 and/or develops lower back pain. documented in this encounter Plan of Treatment Upcoming Encounters Date Type Department Care Team (Late st Contact Info) Description 03/06/2024 1:30 PM EST [place] [address] Satya Wills MD [facility] [place] [address] documented as of this encounter Procedures Procedure Name Priority Date/Time Associated Diagnosis Comments GC/CHLAMYDIA Routine 03/04/2013 4:00 PM EST Screening examination for sexually transmitted disease GC/CHLAM Routine 03/04/2013 4:00 PM EST Screening examination for sexually transmitted disease YEAST CULTURE Routine 03/04/2013 3:59 PM EST Yeast infection URINE CULTURE Routine 03/04/2013 3:58 PM EST Acute UTI (urinary tract infection) CYTOPATHOLOGY GYNECOLOGICAL Routine 03/04/2013 3:06 PM EST Cervical cancer screening FINANCIAL COST ANALYST MOLECULAR GENETICS REPORT Routine 03/04/2013 2:15 PM EST FINANCIAL COST ANALYST CYTOLOGY FINAL REPORT Routine 03/04/2013 2:15 PM EST POCT URINE DIPSTICK Routine 03/04/2013 Acute UTI (urinary tract infection) documented in this encounter Results * GC/Chlam (03/04/2013 4:00 PM EST) GC Gene Amp Negative Negative [facility] Comment: The only FDA approved specimen types for this assay are cervix, vagina, urethra and urine. ??The sensitivity and specificity of the assay for other specimen types has not been determined. GC Source Cervical CERNER MILLENNIUM Chlamydia Gene Amp Negative Negative [facility] Comment: The only FDA approved specimen types for this assay are cervix, vagina, urethra and urine. ??The sensitivity and specificity of the assay for other specimen types has not been determined. Chlm Source Cervical [facility]IARA CLIFFORD Specimen of unknown material (specimen) 03/04/2013 4:00 PM EST 03/04/2013 4:00 PM EST Narrative Resulting Agency Comment Spec In Lab Serena Rangel MD MICROBIOLOGY - GENE RAL ORDERABLES [facility] * Yeast culture Vaginal (03/04/2013 3:59 PM EST) Yeast Culture ? Patient Name: JOSIANE PACHECO ?Ordered By: SERENA RANGEL ? MR#: [id number] ?LOC: ??5L ? /Sex: ??1955 (57 years), ? Female ? PROCEDURE: Yeast Culture ?SOURCE: Vaginal ? COLLECTED: 03/04/2013 15:59 ? STARTED: 03/04/2013 15:59 ? FINAL REPORT ? Final Report ? Verified:2013 08:04 ? No Yeast isolated ? PRELIMINARY REPORT ? Preliminary Report ? Verified:2013 07:55 ? No Yeast isolated to date ? CHIARA SEBASTIANIUM Vaginal 03/04/2013 3:59 PM EST 03/04/2013 3:59 PM EST Narrative Resulting Agency Comment Spec In Lab Serena Rangel MD MICROBIOLOGY - GENE RAL ORDERABLES [facility] * Urine culture Clean Catch Urine (03/04/2013 3:58 PM EST) Urine Culture ? Patient Name: JOSIANE PACHECO ?Ordered By: SERENA RANGEL ? MR#: [id number] ?LOC: ??5L ? /Sex: ??1955 (57 years), ? Female ? PROCEDURE: Urine Culture ?SOURCE: U CC ? COLLECTED: 03/04/2013 15:58 ? STARTED: 03/04/2013 15:58 ? FINAL REPORT ? Final Report ? Verified: 014 14:21 ? 10,000-49,000 cfu/ml mixed mucosal shine ? Note: Multiple bacterial morphotypes present. Suggest appropriate ? recollection with timely delivery to ? the laboratory, if clinically significant. ? [facility]IARA SEBASTIANIUM Urine specimen obtained by clean catch procedure (specimen) 03/04/2013 3:58 PM EST 03/04/2013 3:58 PM EST Narrative Resulting Agency Comment Spec In Lab Serena Rangel MD MICROBIOLOGY - GENE RAL ORDERABLES Performing Organization Address [facility] Co de Phone Number [facility] * Cytopathology Gynecological (03/04/2013 3:06 PM EST) AP Specimen 03/04/2013 3:06 PM EST 03/04/2013 3:06 PM EST Narrative [facility] - 03/04/2013 3:06 PM EST Specimen requisition ordered. ??Separate Pathology report to follow Serena Rangel MD PATHOLOGY/CYTOLOGY ORDERABLES Performing Organization Address [facility] Co de Phone Number [facility] * Senior Program Analyst Cytology Final Report (03/04/2013 2:15 PM EST) Senior Program Analyst Cytology Final Report ? [facility] ? Provider: ?? LICHA ORELLANA ?? Pt. Name: ?? JOSIANE PACHECO ? Acc #: ?[id number] ?Pt. ? Col Date: ?? 03/04/2013 ?/Sex: ?1955,(57 years),Female ? Rec Date: ?? 03/04/2013 ?LOC: ?5L ? CYTOPATHOLOGY: ??FINANCIAL COST ANALYST ? ---Adequacy--- ? Specimen submitted is satisfactory [...] 03/07/13 ?? Verified by: ??JOHNIE Multani(ASCP), Brittanie Mcghee - ? Manager Distribution ? ---Comment--- ? Predominance of coccobacilli consistent with shift in vaginal shine. ? Please also see concurrent HPV test result. ? ---Clinical Information--- ? HPV Option: ? Concurrent HPV ? Preparation: ?Liquid Based Pap ? Specimen Source: ?Cervical Endocervical LBP ? LMP: ?churn operator ? Hormones?: ?No ? Hysterectomy?: ?No ?: ?No ?: ?No ? I.U.D.?: ?No ? Pelvic Radiation: ? No ? Prior FINANCIAL COST ANALYST Therapy?: ? No ? Hist Abnl Pap/Biopsy?: ??Yes, history of previous abnormal Pap ? Hist of HPV Vaccine?: ?? No ? Hist of Smoking?: ? Yes ? Hist of LUANNE exposure?: ??No ? Clinical Data, Significant Therapy and Clinical Impression: ?_ ? [facility] ? Provider: ?? LICHA ORELLANA ?? Pt. Name: ?? JOSIANE PACHECO ? Acc #: ?[id number] ?Pt. ? Col Date: ?? 03/04/2013 ?/Sex: ?1955,(57 years),Female ? Rec Date: ?? 03/04/2013 ?LOC: ?5L ? CYTOPATHOLOGY: ??FINANCIAL COST ANALYST ? This Pap Test has been evaluated with the assistance of the ThinPrep Pap ? Test Imaging System. ? Note: ? The Pap test is a screening test for cervical cancer with an inherent ? false-negative rate dependent upon several variables. ??For further ? information please contact the [facility] Laboratory. ? Reference: ??Abally CS. ??Care Professional of Pap Smear Results. ??In: ? Keenan BS, James HH, ed. ??The Pap Smear. ??[place]: ??Shaw 2002: ? 71-77. [facility] 03/04/2013 2:15 PM EST Licha Orellana PHARMACY OPERATIONS MANAGER PATHOLOGY/CYTOLOGY ORDERABLES [facility] * FINANCIAL COST ANALYST Molecular Genetics Report (03/04/2013 2:15 PM EST) FINANCIAL COST ANALYST Molecular Genetics Report ? [facility] ? Provider: ?? LICHA ORELLANA ?? Pt. Name: ?? JOSIANE PACHECO ? Acc #: ?[id number] ?Pt. ? Col Date: ?? 03/04/2013 ?/Sex: [...] Cytology Liquid Based Prep ? Reviewed by: ??Shaw Ho, YONGMary ? A ? NANY Cerv-Endocerv LBP ? B ? HPVDO Do HPV Testing ? ``` ? Verified date: ??03/06/13 ??ABH ? Verified by: ?Lab Review, Molecular Genetics ? (Electronic Signature) [facility] 03/04/2013 2:15 PM EST Licha Orellana APRN PATHOLOGY/CYTOLOGY ORDERABLES [facility] * POCT urine dipstick (03/04/2013) POC Sp [place] 1.02 1.002 - 1.030 POC pH, UA 5 5.0 - 8.5 POC Leuk, UA 2+ Negative - Negative POC Nitrite, UA positive Negative - Negative POC Protein, UA negative Negative - Negative mg/dL POC Glucose, UA normal Normal - Normal mg/dL POC Ketone, UA negative Negative - Negative POC Urobil, UA normal 0.2 - 1.0 mg/dL POC Bili, UA negative Negative - Negative POC Blood, UA negative Negative - Negative sarah/uL Serena Rangel MD POINT OF CARE TEST ORDERABLES documented in this encounter Visit Diagnoses Diagnosis Cervical cancer screening Screening for malignant neoplasm of the cervix Yeast infection Other and unspecified mycoses Acute UTI (urinary tract infection) Urinary tract infection, site not specified Screening examination for sexually transmitted disease Screening examination for venereal disease Bacterial vaginosis Vaginitis and vulvovaginitis, unspecified documented in this encounter Care Teams Wood And Hardware Outfitter Relationship Specialty Start Date End Date Elias Rosas MD [address] [facility] [place] [address] PCP - General 01/19/10 01/22/17 documented as of this encounter
--- OUTSIDE RECORDS SUMMARY | 2023-12-04 16:34 | XMS_ITS | Encounter Summary ---
Author Organization [facility] Address [facility] [place] [address] Care Team Providers Care Risk And Compliance Analytics Director Name Role Phone Husam Rosas MD Primary Care Provider [phone] Reason for Visit * Reason Comments Medication Refill Encounter Details Date Type Department Care Team (Late Contact Info) Description 07/24/2013 [place] [address] Satya Wills MD [facility] [place] [address] Social History Tobacco Use Types Packs/Day Years [...] 1:30 PM EST [place] [address] Satya Wills MD [facility] [place] [place] [address] documented as of this encounter Visit Diagnoses Not on filedocumented in this encounter Care Teams Risk And Compliance Analytics Director Relationship Specialty Start Date End Date Husam Rosas MD [address] [place] [address] PCP - General 01/19/10 01/22/17 documented as of this encounter
--- OUTSIDE RECORDS SUMMARY | 2023-12-04 16:34 | XMS_ITS | Encounter Summary ---
Author Organization [facility] [place] [address] Care Team Providers Care Tax Services Professional Name Role Phone Husam Rosas MD Primary Care Provider [phone] Reason for Visit * Reason Comments Medication Refill Encounter Details Date Type Department Care Team (Late Contact Info) Description 12/10/2012 [place] [phone] Jayla Angel APRN [facility] [place] [address] Social History Tobacco Use Types Packs/Day Years [...] 1:30 PM EST [place] [phone] Satya Wills MD [facility] [place] [address] documented as of this encounter Visit Diagnoses Not on filedocumented in this encounter Care Teams Tax Services Professional Relationship Specialty Start Date End Date Husam Rosas MD [address] [place] [address] PCP - General 01/19/10 01/22/17 documented as of this encounter
--- OUTSIDE RECORDS SUMMARY | 2023-12-04 16:34 | XMS_ITS | Encounter Summary ---
Author Organization [facility] Address [facility] [place] [address] Care Team Providers Care Security Management Specialist Name Role Phone Husam Rosas MD Primary Care Provider [phone] Reason for Visit * Reason Comments Medication Refill Encounter Details Date Type Department Care Team (Late Contact Info) Description 08/09/2013 Refill Infectious Disease at [facility] [place] [address] Drew Heaton MD [facility] [place] [address] HIV (human immunodeficiency virus infection) (Primary Dx) [...] Telephone Encounter - Suzie Mars RN - 08/09/2013 12:22 PM EDT Clarissa Hodge in [facility] calls to request a renewal of Viread; will forward request to Dr. Sudarshan Joshua last seen in clinic on 06/02/13; scheduled to see Dr Heaton on 09/11/13 documented in this encounter Plan of Treatment Upcoming Encounters Date Type Department Care Team (Late Contact Info) Description 03/06/2024 1:30 PM EST [place] [address] Satya Wills MD [facility] [place] [address] documented as of this encounter Visit Diagnoses Diagnosis HIV (human immunodeficiency virus infection)- Primary Asymptomatic human immunodeficiency virus (HIV) infection status documented in this encounter Care Teams Security Management Specialist Relationship Specialty Start Date End Date Husam Rosas MD [address] [facility] [address] PCP - General 01/19/10 01/22/17 documented as of this encounter
--- OUTSIDE RECORDS SUMMARY | 2023-12-04 16:34 | XMS_ITS | Encounter Summary ---
Author Organization [facility] Address [facility] [place] [address] Care Team Providers Care Rig Superintendent Name Role Phone Husam Rosas MD Primary Care Provider [phone] Reason for Visit * Reason Onset Date Comments Follow-up 02/08/2013 annual HIV nsg u pdate Encounter Details Date Type Department Care Team (Late st Contact Info) Description 02/08/2013 Telephone [place] [phone] Suzie Jensen RN Follow-up (annual HIV nsg update) Social History Tobacco Use Types Packs/Day Years [...] Miscellaneous Notes * Telephone Encounter - Suzie Jensen RN - 02/08/2013 2:57 PM EST 02/08/2013 Nursing Assessment And Plan of Care HIV status: labs to be drawn today Patient understanding of disease: Adherence: States she has not missed any doses Substance Use Issues: States she is not currently drinking; has stopped AA meetings because too cold to walk to the meetings; does not feel she will start drinking without this support (in past, had been attending AA at least once daily) Cigarette smoking recently increased to one pk/day when she was visiting her son; since getting back home, down to 1/2 pk/day; States she is interested in quitting - doesn't like the smell and high cost; has been thinking about strategies and what will be best for her; has decided to cut back further, but probably not quit entirely; not interested in patches or other NRT ; advertisements on [employer] have been helpful in making her think about strategies; she has the [employer]. helpline number. Mental Health Status: denies depression, although discouraged she does not feel better physically Reproductive Intentions/Most Recent PAP: is scheduled with Desirae Rodriguez APRN on 03/04/2013; she is having lower pelvic pain; vaginal discharge with odor/cream colored; burning with urination; changingpanties 2-3xday. Denies risk for STI ; last intercourse two month ago with condom; these symptoms started one month ago Last PAP one year ago Risk Reduction: States she always uses condoms; not currently sexually active Relationships/DV/Family Issues/Support Systems: just spent 10 days visiting son in [place]; great visit Insurance Issues: Part D prescription coverage Employment/Financial: does not work; disability; finances tight, but manages Housing/Transportation: Apartment; does not drive; uses [facility] for transport to appointments Legal Concerns: Denies; tried to get a restraining order against Neo, but not successful; Neo callsher house 30x/day - not threatening, just annoying Dental Care: frightened by the dentist; she has been hearing ads for new dental services/assistance- will check with her dentist if he accepts DCAP Advance DIrectives: gave Josiane the Vt booklet; she was confusing will with advance directives; with better understanding, said she would consider; would name son as agent as her mother is now 81 Case Management: Health Promotion/Disease Prevention: smoking cessation; not willing to quit at this time , but giving it a lot of thought and paying attention to the television commercials Other Stressors: Old boyfriend, calls frequently but not abusive or threatening Assessment/Strengths/Challenges: keeps medical appointments; engages in care; labs don't always support medication adherence, but states she takes meds as prescribed. Plan/Patient Goals: Complete advance directives and smoking cessation seem like achievable goals; but many fears around dental care and this not likely to happen Other Providers: Case Management PCP Husam Rosas Pharmacy [facility] not engaged at this time SUZIE JENSEN RN documented in this encounter Plan of Treatment Upcoming Encounters Date Type Department Care Team (Late st Contact Info) Description 03/06/2024 1:30 PM EST [place] [address] Satya Wills MD [facility] [place] [address] documented as of this encounter Visit Diagnoses Not on filedocumented in this encounter Care Teams Rig Superintendent Relationship Specialty Start Date End Date Husam Rosas MD [address] [place] [address] PCP - General 01/19/10 01/22/17 documented as of this encounter
--- OUTSIDE RECORDS SUMMARY | 2023-12-04 16:34 | XMS_ITS | Encounter Summary ---
Author Organization [facility] [place] [address] Care Team Providers Care Vascular Sonographer Name Role Phone Husam Rosas MD Primary Care Provider [phone] [phone] Reason for Visit * Reason Comments Follow-up Encounter Details Date Type Department Care Team (Late st Contact Info) Description 08/21/2013 11:00 AM EDT Follow-Up [place] [id number] Yeimy Kong PA [address] [place] [address] Fissure in ano; Hemorrhoids Discharge Disposition: Home Social History Tobacco [...] Sign Reading Time Taken Comments Blood Pressure 135/79 08/21/2013 11:02 AM EDT Pulse 67 08/21/2013 11:02 AM EDT Temperature 37 ??C (98.6 ??F) 08/21/2013 11:02 AM EDT Respiratory Rate - - Oxygen Saturation 98% 08/21/2013 11:02 AM EDT Inhaled Oxygen Concentration - - Weight 91.2 kg (201 lb) 08/21/2013 11:02 AM EDT Height - - Body Mass Index 31.96 06/12/2013 2:43 PM EDT documented in this encounter Progress Notes * Yeimy Kong PA - 08/21/2013 11:24 AM EDT COLON & RECTAL SURGERY Follow-Up Office Visit Interval History: Josiane Pacheco is a 58 y.o. female with a past medical history of HIV disease on HAART, seizure disorder status post right temporal lobectomy, neoplastic colonic polyps, COPD and fissure in ano (s/p botulinum toxin chemical sphincterotomy in April 2008 (Dr. Hermosillo)) who returns to clinic today for f/u evaluation of fissure in ano and enlarged internal hemorrhoids diagnosed at her last visit with our clinic on 07/12/2013. At that visit, physical exam revealed an enlarged internal hemorrhoids/redundant rectal mucosa in the right anterior, right posterior, and left lateral quadrants. There was a small superficial fissure in ano in the anterior midline. The hemorrhoids were thought the most likelyculprit for the patient's bleeding, and the fissure was thought most likely to be causing her pain.She was prescribed a regimen of medical and lifestyle management. She returns today for follow-up evaluation. The patient reports that she has been doing fantastic since her last visit. No new health problems have arisen. No recent fevers or chills. Both the pain and the bleeding that prompted her last visithave fully resolved. She used the nitroglycerine ointment TID until symptoms subsided; no troubles with headache. She continues using Metamucil once to twice a day. She saw blood only once since her last visit, following a bout of diarrhea with about 10 BMs in a row, at least 2 weeks ago. No anorectal pain. She is moving her bowels typically 3/day, soft consistency. She reports occasional discomfort with BMs, but nowhere near like it was prior to her last visit. Physical Exam: Blood pressure 135/79, pulse 67, temperature 37 ??C (98.6 ??F), weight 91.173 kg (201 lb), last menstrual period 11/26/2010, SpO2 98.00%. Inspection of the perineum reveals pristine perianal skin, with the exception of some small skin tags at the outlet. Anal examination reveals resting tone to be within normal limits, as was squeeze/augmentation. RICK was negative for mass, ulceration, fluctuance or tenderness. A time-out was conducted just before the start of the procedure to verify the correct patient and procedure, procedure location, and all relevant critical information. Anoscopic examination reveals are of anterior midline fissure in ano to be well healed and non-tenderto palpation. Impression: 1. Fissure in ano, anterior midline 2. Enlarged internal hemorrhoids Plan: By patient's report and by physical exam, she appears well healed today from the perspective of the fissure. She likely still has the enlarged internal hemorrhoids, but they are asymptomatic and non-bleeding and therefore do not require further intervention at this time. I discussed with the patient the importance of maintaining a high fiber diet and a daily fiber supplement such as Metamucil to help keep stool soft and bulky and easy to pass, and the likelihood of recurrent troubles bothwith the bleeding from the hemorrhoids and the pain/possible bleeding of the fissure if she were todiscontinue the fiber. She expressed understanding. The patient is very pleased that her symptoms have resolved and that she does not need to go to surgery. She will contact us on an as needed basis should any of her symptoms recur, at which point we would be happy to see her for reevaluation. Yeimy Kong PA-C Division of Colon & Rectal Surgery [facility] [phone] Cc PCP: HUSAM ROSAS MD documented in this encounter Plan of Treatment Upcoming Encounters Date Type Department Care Team (Late st Contact Info) Description 03/06/2024 1:30 PM EST Office [place] [address] Satya Wills MD [facility] [place] [address] documented as of this encounter Visit Diagnoses Diagnosis Fissure in ano Anal fissure Hemorrhoids Unspecified hemorrhoids without mention of complication documented in this encounter Care Teams Vascular Sonographer Relationship Specialty Start Date End Date Husam Rosas MD [address] [place] [address] PCP - General 01/19/10 01/22/17 documented as of this encounter
--- OUTSIDE RECORDS SUMMARY | 2023-12-04 16:34 | XMS_ITS | Encounter Summary ---
Author Organization [facility] Address [facility] [place] [address] Care Team Providers Care Hop Farm Worker Name Role Phone Husam Rosas MD Primary Care Provider [phone] [phone] Reason for Visit * Reason Comments Follow-up Encounter Details Date Type Department Care Team (Latest Contact Info) Description 10/05/2012 11:00 AM EDT Follow-Up Infectious Disease at [facility] [place] [address] Drew Heaton MD [facility] [place] [address] Human immunodeficiency virus (HIV) disease (Primary Dx) Discharge Disposition: Home Social History [...] Sign Reading Time Taken Comments Blood Pressure 137/85 10/05/2012 11:07 AM EDT Pulse 77 10/05/2012 11:07 AM EDT Temperature 36.6 ??C (97.9 ??F) 10/05/2012 11:07 AM E DT Respiratory Rate 16 10/05/2012 11:07 AM EDT Oxygen Saturation 94% 10/05/2012 11:07 AM EDT Inhaled Oxygen Concentration - - Weight 89.8 kg (198 lb) 10/05/2012 11:07 AM EDT Height - - Body Mass Index 31.48 05/30/2012 1:15 PM EDT documented in this encounter Progress Notes * Drew Heaton MD - 10/05/2012 11:18 AM EDT This is a scheduled appointment for an HIV infected woman last seen by me in clinic four months ago, since when she has had a somewhat tough time. A month ago she called complaining of many problems,including nausea, diarrhea, blood in her stool, and lots of life stress. She was seen in the local ED and was told she had hemorrhoids. In general things have improved and she is largely back to baseline. She did have a seizure two days ago.. Blood pressure 137/85, pulse 77, temperature 36.6 ??C (97.9 ??F), resp. rate 16, weight 89.812 kg (198 lb), SpO2 94.00%. Overweight woman in no apparent distress. NC/AT. EOMI. Skin without rash save for diffuse erythema on face, sparing circumocular. Throat benign. Heart RRR no m/r/g. Lungs CTA. Abdomen benign. Neuro. grossly nonfocal. Baseline Data Serologies/Screening: Monitoring HIV DX: /1990 CDQ : 12/31/2010 Family Planning: Routine nutritional eval: Ophtho exam: Dental eval: 02/27/2011 Adherence score: Hep A IgG: Hep B sAb: 08/17/2001 Neg Hep B cAb: (IgG): Hep B sA08/17/2001 Neg eAg: eAb: DNA PCR: Hep C Ig09/12/2006 Neg Genotype: Viral load: Anyt hx rx? : Y/N free text dates AFP: U/S: Liver Study: Toxo IgG: CMV IgG: RPR Titers: 12/31/2010 03/05/2008 10/31/2003 PPD: 03/02/2012 neg CXR: Rx status: Cervical pap: 03/02/2012 Normal 08/11/2010 Normal 05/27/2009 Normal Vag colpo: Last pelvic: Receiving Weigher exam: 05/27/2009 Anal pap: Rectal colpo: CD4: 10/05/2012 05/30/2012 264 10 03/02/2012 199 10 Chris: 10/05/2012 VL: 10/05/2012 05/30/2012 22,187 03/02/2012 14,340 Max VL: 04/30/2003 28,700 Resist assays: 10/05/2012 07/26/2011 no resistance mutations 10/01/2010 no resistance Weights: 12/31/2010 97.977 12/16/2009 91.17 05/27/2009 83.91 Lipids: Total chol: 01/16/2009 207 LDL: 01/16/2009 115 HDL: 01/16/2009 68 Tri01/16/2009 121 Vaccines Influenza: 02/10/2012 Pneumovax: 09/16/2009 08/17/2001 Td: Tdap: 10/03/2008 HepA: 03/19/1998 HepB 20: 12/25/2002 HepB 40: HPV: Twinrix: [...] and then 14,000 in February of this year and 22,000 in May. Phenotype 10/01/10 was again without resistance. Labs for safety and efficacy every 3-4 [...] 2010 given CD4<200. 4. Immunoprophylaxis. Up to date. 5. Risk reduction. Last sexually active 4 months ago - she has previously said that she is always safe. 6. Seizure disorder/headaches. She is under the care of Drs. Wills. 7. Psychiatric. Her mood is decent. She is again seeing a therapist. 8. Abnormal pap smear. Pap smear February 2012 was normal. 9. Obesity. Not addressed today. 10. Hyperlipidemia. Not addressed today. 11. Smoking. Had stopped smoking in February, but is now still smoking a small number of cigarrettes. I previously strongly encouraged her to again try stopping and we explored her ambivalnce. Her main sales driver to stop is cost so we previously explored how much she would save should she stop; while her main challenge is that her friend Neo smokes. Not addressed today. 12. Abdominal pain/anorexia. Resolved. 13. Rectal bleeding. Seen Dr. Hermosillo. Colonoscopy unremarkable. We will refer her back given recurrence.. 14. General health care. Mammogram February 2012. Colonoscopy 04/28/10 revealed multiple polyps so will repeat in three years (2013). 15. Facial rash. Resolved. 16. Transaminitis. Significantly worse at last appointment, but it turns out she was drinking fairly significantly and has now stopped - repeat today. 30 minutes [id number] time spent with the patient, 20 minutes of which was in discussion and counseling about management of HIV. Follow-up in 3-4 months. documented in this encounter Miscellaneous Notes * Addendum Note - Kalee Colorado - 10/05/2012 12:03 PM EDTAddended by: KALEE COLORADO on: 10/05/2012 12:03 PM Modules accepted: Orders documented in this encounter Plan of Treatment Upcoming Encounters Date Type Department Care Team (Late st Contact Info) Description 03/06/2024 1:30 PM EST [place] [address] Satya Wills MD [facility] [place] [address] documented as of this encounter Procedures Procedure Name Priority Date/Time Associated Diagnosis Comments HIV QUANT Routine 10/05/2012 12:13 PM EDT Human immunodeficiency virus (HIV) disease HIV 1 GENOTYPING Routine 10/05/2012 12:1 3 PM EDT Human immunodeficiency virus (HIV) disease CD4 Routine 10/05/2012 12:13 PM EDT Human immunodeficiency virus (HIV) disease DIFFERENTIAL, AUTOMATED Routine 10/05/2012 12:13 PM EDT HIV-1 RNA, QUANTITATIVE, PCR Routine 10/05/2012 12:13 PM EDT Human immunodeficiency virus (HIV) disease CBC (WITH DIFF) Routine 10/05/2012 12:13 PM EDT Human immunodeficiency virus (HIV) disease COMPREHENSIVE METABOLIC PANEL Routine 10/05/2012 12:13 PM EDT Human immunodeficiency virus (HIV) disease documented in this encounter Results * Differential, Automated (10/05/2012 12:13 PM EDT) Neutrophil % 61.5 34.0 - 71.0 % CERNER MILLENNIUM Neutrophil Absolute 4.07 1.50 - 6.30 x10(3)/mcL CERNER MILLENNIUM Lymph % 31.3 19.0 - 53.0 % CERNER MILLENNIUM Lymphocytes Abs 2.1 1.0 - 3.6 x10(3)/mcL CERNER MILLENNIUM Monocyte % 6.2 4.0 - 13.0 % CERNER MILLENNIUM Monocyte Abs 0.4 0.2 - 1.0 x10(3)/mcL CERNER MILLENNIUM Eos % 0.6 0.0 - 7.0 % CERNER MILLENNIUM Eosinophils Abs 0.0 0.0 - 0.5 x10(3)/mcL CERNER MILLENNIUM Basophil % 0.2 0.0 - 2.0 % CERNER MILLENNIUM Baso Absolute 0.0 0.0 - 0.2 x10(3)/mcL CERNER MILLENNIUM Immature Gran % 0.20 0.00 - 0.66 % CERNER MILLENNIUM Comment: Immature granulocytes(IG's)percentage and absolute count will include metamyelocytes, myelocytes, and promyelocytes. Blood smears from CBCs yielding IG's will be scanned manually for concordance. If this scan disagrees with the automated IG or if promyelocytes are noted, a manual differential will be performed. Immature Gran Absolute 0.01 0.00 - 0.05 x10(3)/mcL CERNER MILLENNIUM Blood specimen (specimen) 10/05/2012 12:13 PM EDT 10/05/2012 12:19 PM EDT Drew Heaton MD HEMATOLOGY ORDERABLE S Performing Organization Address [facility] de Phone Number [facility] * HIV Quant (10/05/2012 12:13 PM EDT) Pathologist [facility] HIV Viral Load Result (Qualitative) * RESULT: 26418 copies/mL * INDICATION FOR STUDY: HIV-1 Infection ANALYSIS: A real time PCR amplification assay was performed on extracted viral RNA for the purpose of quantification. SAMPLE: serum/plasma (1.0 mL minimum) METHOD: ORLIN AmpliPrep / ORLIN TaqMan HIV-1 Test v.2.0 LINEAR RANGE: 20 copies/mL 10,000,000 copies/mL plasma NOTE: The ORLIN AmpliPrep / ORLIN TaqMan HIV-1 Test v.2.0 has been approved by the U.S. Food and Drug Administration. Robert Fuentes, Ph.D. Director, Molecular Pathology [facility] Comment: [VERIFIED DATE]10.08.12 Verified By:Cherry Gomez (Electronic Signature) Blood specimen (specimen) 10/05/2012 12:13 PM EDT 10/08/2012 8:46 AM EDT Narrative Resulting Agency Comment Spec In Lab Drew Heaton MD HEMATOLOGY ORDERABLE S Performing Organization Address [facility] de Phone Number [facility] * (ABNORMAL) Comprehensive metabolic panel (non-fasting) (10/05/2012 12:13 PM EDT) Pathologist [facility] Glucose 93 60 - 199 mg/dL [facility] Comment:Diabetes: >=200 mg/d L plus symptoms Blood Urea Nitrogen 7(L) 8 - 18 mg/dL [facility] Creatinine 0.86 0.70 - 1.20 mg/dL [facility] Comment: Please note that the pediatric reference intervals supplied above were not validated at [facility]. Results from pediatric patients should be interpreted [...] Laboratory if there are any questions. Chloride 103 98 - 107 mmol/L CERNER MILLENNIUM Carbon Dioxide 20(L) 22 - 31 mmol/L CERNER MILLENNIUM Anion Gap 15 5 - 15 mmol/L CERNER MILLENNIUM Calcium 9.6 8.5 - 10.5 mg/dL CERNER MILLENNIUM Protein, Total 7.6 6.4 - 8.3 gm/dL CERNER MILLENNIUM Albumin 4.2 3.2 - 5.2 gm/dL CERNER MILLENNIUM Aspartate Aminotransferase 104(H) 0 - 30 unit/L CERNER MILLENNIUM Alanine Aminotransferase 118(H) 0 - 30 unit/L CERNER MILLENNIUM Alkaline Phosphatase 57 40 - 104 unit/L CERNER MILLENNIUM Bilirubin, Total 4.3(H) 0.2 - 1.3 mg/dL CERNER MILLENNIUM Bilirubin, [...] internet browser. http://www.nkdep.nih.gov/lab-evaluation.shtml http://www.kidney.org/professionals/ Blood specimen (specimen) 10/05/2012 12:13 PM EDT 10/05/2012 12:19 PM EDT Narrative Resulting Agency Comment Spec In Lab Drew Heaton MD CHEMISTRY ORDERABLES CERNER MILLENNIUM * HIV 1 Genotyping (10/05/2012 12:13 PM EDT) Pathologist [facility] HIV-1 Genotype Test ?Result ??Flag ??Unit ??RefValue HIV-1 Genotypic Drug ?Unable to genotype ??Resistance, P This result may be due to low viral load, insufficient viral load information, presence of PCR inhibitors, and/or mutations in the PCR primer regions. Testing was performed by RT-PCR and DNA sequencing method (ilab HIV-1 Genotyping Kit; [employer] and results were based on sap technical developer's most recent FDA-approved interpretive guidelines. Results obtained by different assay methods should not be used interchangeably. Test Performed by: [place] [address] Trench Shovel Operator: Greg Frazier III, M.D. CHIARA CLIFFORD Blood specimen (specimen) 10/05/2012 12:13 PM EDT 10/12/2012 11:37 AM EDT Narrative Resulting Agency Comment Spec In Lab Drew Heaton MD LAB SEND OUT ORDERAB LES CHIARA CLIFFORD * (ABNORMAL) CD4 (10/05/2012 12:13 PM EDT) Pathologist [facility] CD3% 93(H) 55 - 82 % CHIARA ARAYAENNIUM CD3 ABS 9897 851 - 9708 /mcl CERNER MILLENNIUM CD 4% 10(L) 35 - 61 % CERNER MILLENNIUM CD 4ABS 217(L) 503 - 1736 /mcl CERNER MILLENNIUM Comment: [...] CD4, CD8, CD19, CD16+56) Blood specimen (specimen) 10/05/2012 12:13 PM EDT 10/05/2012 12:19 PM EDT Narrative Resulting Agency Comment Spec In Lab Drew Heaton MD HEMATOLOGY ORDERABLE S CERNER MILLENNIUM * (ABNORMAL) CBC (with Diff) (10/05/2012 12:13 PM EDT) White Blood Cell 6.6 4.0 - 10.0 x10(3)/mc L CERNER MILLENNIUM Red Blood Cell 4.49 3.93 - 5.22 x10(6)/mc L CERNER MILLENNIUM Hemoglobin 15.6 11.2 - 15.7 gm/dL CERNER MILLENNIUM Hematocrit 44.4 34.0 - 45.0 % CERNER MILLENNIUM Mean Cell Volume 98.9(H) 79.0 - 94.0 fL CERNER MILLENNIUM Mean Cell Hemoglobin 34.7(H) 26.6 - 32.2 pg CERNER MILLENNIUM Mean Cell Hemoglobin Concentration 35.1 32.0 - 36.5 gm/dL CERNER MILLENNIUM Platelet 115(L) 145 - 370 x10(3)/mc L CERNER MILLENNIUM RDW Standard Deviation 51.0(H) 35.0 - 46.0 fL CERNER MILLENNIUM RDW coefficient of variation 14.5(H) 10.9 - 14.4 % CERNER MILLENNIUM Mean Platelet Volume 10.0 9.0 - 12.0 fL CERNER MILLENNIUM Blood specimen (specimen) 10/05/2012 12:13 PM EDT 10/05/2012 12:19 PM EDT Narrative Resulting Agency Comment Spec In Lab Drew Heaton MD HEMATOLOGY ORDERABLE S [facility] documented in this encounter Visit Diagnoses Diagnosis Human immunodeficiency virus (HIV) disease- Primary Human immunodeficiency virus [HIV] disease documented in this encounter Care Teams Hop Farm Worker Relationship Specialty Start Date End Date Husam Rosas MD [address] [place] [address] PCP - General 01/19/10 01/22/17 documented as of this encounter
--- OUTSIDE RECORDS SUMMARY | 2023-12-04 16:34 | XMS_ITS | Encounter Summary ---
Author Organization [facility] Address [facility] [place] [address] Care Team Providers Care Vacuum Cleaner Assembler Name Role Phone Husam Rosas MD Primary Care Provider [phone] [phone] Reason for Visit * Reason Onset Date Comments Medication Refill 08/28/2013 Encounter Details Date Type Department Care Team (Late st Contact Info) Description 08/28/2013 [place] [address] Satya Wills MD [facility] [place] [address] Social History Tobacco Use Types Packs/Day Years [...] encounter Miscellaneous Notes * Telephone Encounter - Adalgisa Zaragoza RN - 08/29/2013 8:43 AM EDT Unable to locate clonazepam printed script on printer. Dr. Wills aware and instructed to phone prescription. Prescription phoned to pharmacy recorded line 08/29/13 at 8:44 am. * Telephone Encounter - Adalgisa Zaragoza RN - 08/28/2013 11:51 AM EDT Prescription generated for provider review and signature * Telephone Encounter - Carmel Rosario - 08/28/2013 11:26 AM EDT Name of Med: clonazepam Strength of Pills: 1 mg Dosing Directions: Take 1 tab by mouth in am & 2 tabs in pm on daily 30 or 90 Day: 30 day supply Pharmacy: [facility] [place], [place] - [address] [facility] Pharmacy Comments: -- Last Appointment:06/22/13 Next Appointment: 09/11/13 documented in this encounter Plan of Treatment Upcoming Encounters Date Type Department Care Team (Late st Contact Info) Description 03/06/2024 1:30 PM EST [place] [address] Satya Wills MD [facility] [place] [address] documented as of this encounter Visit Diagnoses Not on filedocumented in this encounter Care Teams Vacuum Cleaner Assembler Relationship Specialty Start Date End Date Husam Rosas MD [address] [place] [address] PCP - General 01/19/10 01/22/17 documented as of this encounter
--- OUTSIDE RECORDS SUMMARY | 2023-12-04 16:34 | XMS_ITS | Encounter Summary ---
Author Organization [facility] [place] [address] Care Team Providers Care Weight Recorder Name Role Phone Husam Rosas MD Primary Care Provider [phone] [phone] Reason for Visit * Reason Onset Date Comments Medication Refill 08/17/2012 Encounter Details Date Type Department Care Team (Late st Contact Info) Description 08/17/2012 Refill [place] [address] Drew Heaton MD [facility] INFECTIOUS [place] [address] HIV (human immunodeficiency virus infection) (Primary Dx); HIV disease Social History Tobacco [...] Telephone Encounter - Suzie Mars RN - 08/17/2012 12:46 PM EDT Josiane calls to request a renewal of ritonavir and Viread . New prescriptions e- faxed to Clarissa Hodge in [facility]. documented in this encounter Plan of Treatment Upcoming Encounters Date Type Department Care Team (Late st Contact Info) Description 03/06/2024 1:30 PM EST Office [place] [address] Satya Wills MD [facility] DR NEUROLOGY [place] [address] documented as of this encounter Visit Diagnoses Diagnosis HIV disease Human immunodeficiency virus [HIV] disease documented in this encounter Care Teams Weight Recorder Relationship Specialty Start Date End Date Husam Rosas MD [address] [place] [address] PCP - General 01/19/10 01/22/17 documented as of this encounter
--- OUTSIDE RECORDS SUMMARY | 2023-12-04 16:34 | XMS_ITS | Encounter Summary ---
Author Organization Formerly [facility] [place] [address] Care Team Providers Care Jewelry Department Supervisor Name Role Phone Husam Rosas MD Primary Care Provider [phone] [phone] Encounter Details Date Type Department Care Team (Late st Contact Info) Description 04/26/2013 10:15 AM EST [place] [id number] Satya Wills MD [facility] [place] [place] [address] Epilepsy (Primary Dx) Discharge Disposition: Home Social [...] Sign Reading Time Taken Comments Blood Pressure 130/75 04/26/2013 9:39 AM EST Pulse 76 04/26/2013 9:39 AM EST Temperature - - Respiratory Rate - - Oxygen Saturation - - Inhaled Oxygen Concentration - - Weight 94.4 kg (208 lb 3.2 oz) 04/26/2013 9:39 A M EST Height 168.9 cm (5' 6.5) 04/26/2013 9:39 AM EST Reported Body Mass Index 33.1 04/26/2013 9:39 AM EST documented in this encounter Patient Instructions * Patient Instructions* Satya Wills MD - 04/26/2013 10:54 AM EST It seems that the situation is about the same. You are continuing to have about one seizure per month. Her neurological exam is stable. At this point I would recommend a trial of Onfi (clobazam) as a new antiepileptic drug, replacing the Klonopin (clonazepam) At present you are taking Klonopin 1 pill in the morning and 2 at night. I would like to replace this with clobazam, doing a gnfx-gji-[id number] substitution. In the first week start to take 1 pill of clobazam at night and drop 1 pill of Klonopin at night. In the second week take 1 pill of clobazam in the morning and 1 pill at night, and drop the morning dose of Klonopin while continuing to take 1 pill at night. In the third week take clobazam 1 pill in the morning and 2 pills at night, and completely stop the Klonopin. If there are any problems, please call. I would like to see you next in May and we will coordinate this with your appointment with Dr. Heaton. Satya Wills MD Department [place] [address] Pager: [phone], #[phone] Email: [email or web address] documented in this encounter Progress Notes * Satya Wills MD - 04/26/2013 10:41 AM EST Chief Complaint: Epilepsy. History or [...] seizures. These happen about once a month. Most of nocturnal but they canhappen in the daytime. She wakes up with bruises on various parts of her body. She showed me some on her right arm today which probably came from accidentally hitting the bedside table. medical history: Patient Active Problem List Diagnosis Code ??? 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 HIV disease 042 ??? Dyslipidemia 272.4 ??? Migraine 346.90 ??? Obesity 278.00 ??? Depression 311 Review of systems: She is eating all right. Sleep is disturbed her bad dreams . Bowel and bladder function are unremarkable. Physical Examination: BP 130/75 Pulse 76 Ht 168.9 cm (5' 6.5) Wt 94.439 kg (208 lb 3.2 oz) BMI 33.10 kg/m2 LMP11/26/2010 Head, eyes, ears, nose, and throat were normal, Lungs are clear. Heart was normal. Extremities were unremarkable. Her mood was good and her speech was normal. At baseline her speech is little slow, and slightly pressured but I think it is normal for her There was minimal external deviation of the [...] twice a day 60 tablet 5 ??? abacavir-lamiVUDine (EPZICOM) 600-300 mg per tablet Take 1 tablet by mouth daily. 30 tablet 5 ??? atazanavir (REYATAZ) 300 mg capsule Take 1 capsule by mouth daily. 30 capsule 5 ??? ritonavir (RITONAVIR) 100 mg tablet [...] mouth 3 times daily as needed. ??? clobazam (ONFI) 10 mg tablet Take 1 pill in AM and 2 pills in PM. 90 tablet 5 Laboratory Studies: None today Impression: The situation is stable, but seizures persist. 1. She is probably still having complex partial and secondary generalized seizures. She stopped Lamictal, without telling me, and it seems without a deterioration in seizure control. I am inclined todo nothing different at present. As noted earlier, [...] epileptic, although her son's description was very convincing.I suggested a trial of clobazam, and she will replace the Klonopin with clobazam doing a pill for substitution over the next 2 weeks. She would end up on clobazam 10 mg in the morning and 20 [address] at night in place of the present dose of Klonopin 1 mg in the morning and 2 mg at night 2. Headaches are still not doing well. [...] disease. Satya Wills MD [place] [address] Pager: [phone], #[phone] Email: [email or web address] cc: ROSA ROSAS MD documented in this encounter Plan of Treatment Upcoming Encounters Date Type Department Care Team (Late st Contact Info) Description 03/06/2024 1:30 PM EST [place] [address] Satya Wills MD [facility] [place] [address] documented as of this encounter Visit Diagnoses Diagnosis Epilepsy- Primary Unspecified epilepsy without mention of intractable epilepsy documented in this encounter Care Teams Jewelry Department Supervisor Relationship Specialty Start Date End Date Husam Rosas MD [address] [place] [address] PCP - General 01/19/10 01/22/17 documented as of this encounter
--- OUTSIDE RECORDS SUMMARY | 2023-12-04 16:34 | XMS_ITS | Encounter Summary ---
Author Organization [facility] Address [facility] [place] [address] Care Team Providers Care Drying Room Operator Name Role Phone Husam Rosas MD Primary Care Provider [phone] [phone] Encounter Details Date Type Department Care Team (Late st Contact Info) Description 09/11/2013 1:09 PM EDT - 09/11/2013 11:59 PM EDT Hospital Encounter Mammography at [facility] [place] [phone] Social History Tobacco Use Types Packs/Day Years [...] Sig Dispensed Refills Start Date End Date clonazePAM (KLONOPIN) 1 mg tablet Take 1 tab by mouth in am & 2 tabs in pm on daily 90 tablet 5 08/28/2013 03/03/2014 VIREAD 300 mg tabletIndications:HIV (human immunodeficiency virus infection) take 1 tablet by mouth once daily 30 tablet 5 08/09/2013 01/20/2014 RITONAVIR 100 mg tabletIndications:Human immunodeficiency virus (HIV) disease take 1 tablet by mouth once daily 30 tablet 5 07/24/2013 01/18/2014 hydrOXYzine (VISTARIL) 25 mg capsule take 1 capsule by mouth twice a day 60 capsule 3 07/24/2013 11/16/2013 meloxicam (MOBIC) 7.5 mg tablet take 1 tablet by mouth once daily 30 tablet 3 07/24/2013 11/18/2013 VIMPAT 200 mg Tab take 1 tablet by mouth twice a day 60 tablet 5 05/29/2013 11/13/2013 atazanavir (REYATAZ) 300 mg capsuleIndications:Human immunodeficiency virus (HIV) disease Take 1 capsule by mouth daily. 30 capsule 5 05/01/2013 10/19/2013 abacavir-lamiVUDine (EPZICOM) 600-300 mg per tabletIndications:Human immunodeficiency virus (HIV) disease Take 1 tablet by mouth daily. 30 tablet 5 05/01/2013 10/19/2013 albuterol (PROVENTIL HFA;VENTOLIN HFA) 90 mcg/Actuation inhaler Inhale 2 puffs into the lungs every 4 hours as needed. Use with spacer 01/14/2020 polyethylene glycol (MIRALAX) 17 gram/dose powder Take 17 g by mouth as needed. 01/14/2020 Multivitamins with Iron TabIndications:HIV disease Take 1 tablet by mouth daily. 30 tablet 11 06/04/2010 01/14/2020 prochlorperazine (COMPAZINE) 10 mg tablet Take 10 mg by mouth 3 times daily as needed. 06/01/2010 03/28/2014 documented as of this encounter Plan of Treatment Upcoming Encounters Date Type Department Care Team (Late st Contact Info) Description 03/06/2024 1:30 PM EST [place] [address] Satya Wills MD [facility] [place] [address] documented as of this encounter Procedures Procedure Name Priority Date/Time Associated Diagnosis Comments MAMMO SCREENING CAD BILATERAL Routine 09/11/2013 1:35 PM EDT documented in this encounter Results * Mammo digital bilateral Screening with CAD [...] center. Drew Heaton MD IMG MAMMO ORDERABLES documented in this encounter Visit Diagnoses Not on filedocumented in this encounter Care Teams Drying Room Operator Relationship Specialty Start Date End Date Husam Rosas MD [address] [place] [address] PCP - General 01/19/10 01/22/17 documented as of this encounter
--- OUTSIDE RECORDS SUMMARY | 2023-12-04 16:34 | XMS_ITS | Encounter Summary ---
Author Organization [facility] Address [facility] [place] [address] Care Team Providers Care Cloth Shrinker Name Role Phone Husam Rosas MD Primary Care Provider [phone] [phone] Reason for Visit * Reason Onset Date Comments Medication Refill 05/01/2013 Encounter Details Date Type Department Care Team (Late Contact Info) Description 05/01/2013 Refill Infectious [place] [address] Drew Heaton MD [facility] [place] [address] Human immunodeficiency virus (HIV) disease (Primary Dx) [...] Telephone Encounter - Suzie Mars RN - 05/01/2013 2:56 PM EST Josiane calls to ask for renewal prescriptions for reyataz and Epzicom, to be sent to [facility] in [place], [place]; will forward request to Dr. Heaton documented in this encounter Plan of Treatment Upcoming Encounters Date Type Department Care Team (Late Contact Info) Description 03/06/2024 1:30 PM EST Office [place] [address] Satya Wills MD [facility] [place] [address] documented as of this encounter Visit Diagnoses Diagnosis Human immunodeficiency virus (HIV) disease- Primary Human immunodeficiency virus [HIV] disease documented in this encounter Care Teams Cloth Shrinker Relationship Specialty Start Date End Date Husam Rosas MD [address] [place] [address] PCP - General 01/19/10 01/22/17 documented as of this encounter
--- OUTSIDE RECORDS SUMMARY | 2023-12-04 16:34 | XMS_ITS | Encounter Summary ---
Author Organization [facility] Address [facility] [place] [address] Care Team Providers Care Lead Solutions Architect Name Role Phone Husam Rosas MD Primary Care Provider [phone] [phone] Reason for Visit * Reason Onset Date Comments Other 10/10/2012 Pharmacy did not recieve medication Encounter Details Date Type Department Care Team (Late st Contact Info) Description 10/10/2012 Telephone [place] [phone] Satya Wills MD [facility] [place] [address] Other (Pharmacy did not recieve medication) Social History Tobacco Use Types Packs/Day Years [...] Miscellaneous Notes * Telephone Encounter - Josiane Blank LPN - 10/10/2012 12:09 PM EDT Follow up call: I spoke to pt to inform her that I did leave a voicemail on the pharmacy's message line for a new klonopin script at 11:04 am today. I called the pharmacy. The staff told me that theyhave been so busy that they are just now taking off the messages. They will get script ready MARISELA. * Telephone Encounter - Bri Pena - 10/10/2012 12:02 PM EDT Patient has called today to report that the pharmacy says they never received the medication below.Please re-send to the pharmacy . Patient has requested that it be faxed. clonAZEpam (KLONOPIN) 1 mg tablet 90 tablet 5 10/09/2012 Sig: take 1 tablet by mouth every morning and 2 every evening Class: Phone In KEVNI: No Authorizing Provider: Satya Wills MD [facility] documented in this encounter Plan of Treatment Upcoming Encounters Date Type Department Care Team (Late st Contact Info) Description 03/06/2024 1:30 PM EST Office Visit [place] [address] Satya Wills MD [facility] [place] [address] documented as of this encounter Visit Diagnoses Not on filedocumented in this encounter Care Teams Lead Solutions Architect Relationship Specialty Start Date End Date Husam Rosas MD [address] [place] [address] PCP - General 01/19/10 01/22/17 documented as of this encounter
--- OUTSIDE RECORDS SUMMARY | 2023-12-04 16:34 | XMS_ITS | Encounter Summary ---
Author Organization [facility] Address [facility] [place] [address] Care Team Providers Care Floodplain Manager Name Role Phone Husam Rosas MD Primary Care Provider [phone] [phone] Reason for Visit * Reason Comments Follow-up Encounter Details Date Type Department Care Team (Latest Contact Info) Description 09/11/2013 2:15 PM EDT Follow-[place] [phone] CLINIC, Drew Foley MD [facility] [place] [address] Human immunodeficiency virus (HIV) disease (Primary Dx) [...] Sign Reading Time Taken Comments Blood Pressure 122/91 09/11/2013 1:55 PM EDT Pulse 91 09/11/2013 1:55 PM EDT Temperature 36.9 ??C (98.4 ??F) 09/11/2013 1:55 PM ED T Respiratory Rate 16 09/11/2013 1:55 PM EDT Oxygen Saturation - - Inhaled Oxygen Concentration - - Weight 88.5 kg (195 lb) 09/11/2013 1:55 PM EDT Height - - Body Mass Index 31 06/12/2013 2:43 PM EDT documented in this encounter Progress Notes * Drew Heaton MD - 09/11/2013 2:20 PM EDT This is a scheduled appointment for an HIV infected woman last seen by me in clinic three months ago, since when she has actually continued to do well. The seizures remain remarkably improved - she can't remember the last time she had a generalized seizure.. Blood pressure 122/91, pulse 91, temperature 36.9 ??C (98.4 ??F), resp. rate 16, weight 88.451 kg (195 lb), last menstrual period 11/26/2010. Overweight woman [...] Normal 08/11/2010 Normal Vag colpo: Last pelvic: Geomagnetician exam: 05/27/2009 Anal pap: Rectal colpo: CD4: 09/11/2013 06/12/2013 296 11 02/08/2013 294 10 Chris: 09/11/2013 VL: 09/11/2013 06/12/2013 59 02/08/2013 23,828 Max VL: 04/30/2003 28,700 Resist assays: 02/08/2013 [...] then persistently high since then (most recently 23k in January 2013). Phenotype 10/01/10 was again without resistance, as was a genotype in January 2013. Labs for safety and efficacy every 3-4 months (including today) as long as all goes well. I was very perplexed by this and have been unable to sort out adherence issues -but happily the PCR was muchimproved last time. Thus repeat today and base further plans thereon. I will consider change of ARTfor her at next appointment if dolutegravir plus Epzicom coformulation has been approved 2. Adherence. She states that she has been 100% adherent since last seen, and I reinforced the importance of remaining so. 3. Chemoprophylaxis. None indicated by CD4. 4. Immunoprophylaxis. Up to date. 5. Risk reduction. Not sexually since last seen - she has previously said that she is always safe. 6. Seizure disorder/headaches. She is under the care of Dr. Wills. 7. Psychiatric. Her mood is decent. She is again seeing a therapist. 8. Abnormal pap smear/distribution associate. Pap smear February 2013 was normal. 9. Obesity. Not addressed today. 10. Hyperlipidemia. Not addressed today. 11. Smoking. Had stopped smoking in February, but is now still smoking. I previously strongly encouraged her to again try stopping and we explored her ambivalnce. Her main food service driver to stop is cost so we previously explored how much she would save should she stop; while her main challenge is that her friend Neo smokes. Again addressed by me today, and she is becoming somewhat contemplative aboutplans - possibly working with a group of smoking friends on cessation. 12. Rectal bleeding. Better after treatment with nitroglycerin. 13. General health care. Mammogram February 2012 - repeated today. Colonoscopy 04/28/10 revealed multiple polyps so plan was to repeat in three years (2013), so I will contact GI after the next visit ifshe hasn't yet heard from them. 14. Transaminitis. Significantly worse in 2012, but it turns out she was drinking fairly significantly and has now stopped and they were normal at the last appointment - repeat today. 30 minutes [id number] time spent with the patient, 20 minutes of which was in discussion and counseling about management of HIV. Follow-up in 3-4 months, coordinated with Dr. Wills. documented in this encounter Miscellaneous Notes * Addendum Note - Sudheer Stein - 09/11/2013 2:58 PM EDTAddended by: SUDHEER STEIN on: 09/11/2013 02:58 PM Modules accepted: Orders documented in this encounter Plan of Treatment Upcoming Encounters Date Type Department Care Team (Late st Contact Info) Description 03/06/2024 1:30 PM EST [place] [address] Satya Wills MD [facility] [place] [address] documented as of this encounter Procedures Procedure Name Priority Date/Time Associated Diagnosis Comments HIV QUANT Routine 09/11/2013 2:57 PM EDT Human immunodeficiency virus (HIV) disease CD4 Routine 09/11/2013 2:57 PM EDT Human immunodeficiency virus (HIV) disease HEMOGRAM Routine 09/11/2013 2:57 PM EDT Human immunodeficiency virus (HIV) disease DIFFERENTIAL, AUTOMATED Routine 09/11/2013 2:57 PM EDT Human immunodeficiency virus (HIV) disease HIV-1 RNA, QUANTITATIVE, PCR Routine 09/11/2013 2:57 PM EDT Human immunodeficiency virus (HIV) disease CBC (WITH DIFF) Routine 09/11/2013 2:57 PM EDT Human immunodeficiency virus (HIV) disease COMPREHENSIVE METABOLIC PANEL Routine 09/11/2013 2:57 PM EDT Human immunodeficiency virus (HIV) disease documented in this encounter Results * HIV Quant (09/11/2013 2:57 PM EDT) Pathologist [facility] [place] HIV Viral Load Result (Qualitative) * RESULT: 5480 copies/mL * INDICATION FOR STUDY: HIV-1 Infection [...] Administration. Robert Fuentes, Ph.D. Director, Molecular Pathology [facility] Comment: [VERIFIED DATE]09.17.13 Verified By:Constance Hightower (Electronic Signature) Blood specimen (specimen) 09/11/2013 2:57 PM EDT 09/16/2013 11:58 AM EDT Narrative Resulting Agency Comment Spec In Lab Drew Heaton MD HEMATOLOGY ORDERABLE S [facility] * Differential, Automated (09/11/2013 2:57 PM EDT) Pathologist [facility] [place] Neutrophil % 48.0 34.0 - 71.0 % [facility] Neutrophil Absolute 3.07 1.50 - 6.30 x10(3)/mcL [facility] Lymph % 45.4 19.0 - 53.0 % [facility] Lymphocytes Abs 2.9 1.0 - 3.6 x10(3)/mcL [facility] Monocyte % 5.7 4.0 - 13.0 % [facility] Monocyte [...] 0.05 x10(3)/mcL [facility] Blood specimen (specimen) 09/11/2013 2:57 PM EDT 09/11/2013 3:09 PM EDT Narrative Resulting Agency Comment Spec In Lab Drew Heaton MD HEMATOLOGY ORDERABLE S [facility] * (ABNORMAL) Hemogram (09/11/2013 2:57 PM EDT) White Blood Cell 6.4 4.0 - 10.0 x10(3)/mc L [facility] Red Blood Cell 4.26 3.93 - 5.22 x10(6)/mc L [facility] Hemoglobin 15.3 11.2 - 15.7 gm/dL [facility] Hematocrit 43.2 34.0 - 45.0 % [facility]ILL[facility]NI[facility] Mean Cell Volume 101.4(H) 79.0 - 94.0 fL [facility] Mean Cell Hemoglobin 35.9(H) 26.6 - 32.2 pg [facility]NI[facility] Mean Cell Hemoglobin Concentration 35.4 32.0 - 36.5 gm/dL [facility] Platelet 157 145 - 370 x10(3)/mc L [facility] RDW Standard Deviation 46.1(H) 35.0 - 46.0 fL [facility] RDW coefficient of variation 12.6 10.9 - 14.4 % [facility]NI[facility] Mean Platelet Volume 9.9 9.0 - 12.0 fL [facility] Blood specimen (specimen) 09/11/2013 2:57 PM EDT 09/11/2013 3:09 PM EDT Narrative Resulting Agency Comment Spec In Lab Drew Heaton MD HEMATOLOGY ORDERABLE S [facility] * (ABNORMAL) Comprehensive metabolic panel (non-fasting) (09/11/2013 2:57 PM EDT) [facility] Glucose 92 60 - 199 mg/dL [facility]ILLENNI[facility] Comment:Diabetes: >=200 mg/d L plus symptoms Blood Urea Nitrogen 10 8 - 18 mg/dL [facility] Creatinine 1.01 0.70 - 1.20 mg/dL [facility] Comment: Please note that the pediatric reference intervals supplied above were not validated at [facility]. Results from pediatric patients should be interpreted in conjunction to the patient's age, height and muscle mass. Sodium 137 135 - 145 mmol/L [facility]ILL[facility]NI[facility] Potassium 4.5 3.5 - 5.0 mmol/L [facility] Comment: Please note: ??Patients with WBC >100,000 may have falsely elevated Potassium levels. ??For accurate Potassium quantification in these patients send serum separator tube (gold top) for subsequent determinations. ??Contact the Clinical Chemistry Laboratory if there are any questions. Chloride 100 98 - 107 mmol/L [facility]ILLENNI[facility] Carbon Dioxide 24 22 - 31 mmol/L [facility]ILL[facility] Anion Gap 13 5 - 15 mmol/L [facility] Calcium 9.7 8.5 - 10.5 mg/dL [facility] Protein, Total 7.9 6.4 - 8.3 gm/dL [facility] Albumin 4.0 3.2 - 5.2 gm/dL [facility]ILL[facility] Aspartate Aminotransferase 36(H) 0 - 30 unit/L [facility] Alanine Aminotransferase 35(H) 0 - 30 unit/L [facility] Alkaline Phosphatase 61 40 - 104 unit/L [facility] Bilirubin, Total 3.2(H) 0.2 - 1.3 mg/dL [facility] Bilirubin, Direct 0.4(H) 0.0 - 0.3 mg/dL [facility] MILLENNI[facility] Est Glomerular Filtration Rate 57(L) >=60 [facility]ILL[facility] Comment: This estimated GFR [...] the following links into your internet browser. [email or web address] Blood specimen (specimen) 09/11/2013 2:57 PM EDT 09/11/2013 3:09 PM EDT Narrative Resulting Agency Comment Spec In Lab Drew Heaton MD CHEMISTRY ORDERABLES [facility] * (ABNORMAL) CD4 (09/11/2013 2:57 PM EDT) CD3% 94(H) 55 - 82 % [facility] MILLENNI[facility] CD3 ABS 2734(H) 731 - 2438 /mcl [facility] CD 4% 10(L) 35 - 61 % [facility] MILLENNI[facility] CD 4ABS 286(L) 503 - 1736 /mcl [facility] Comment: [...] CD4, CD8, CD19, CD16+56) White Blood Cell 6.4 4.0 - 10.0 x10(3)/mcL [facility] Lymph % 45.4 19.0 - 53.0 % [facility] MILLENNI[facility] Lymphocytes Abs 2.9 1.0 - 3.6 x10(3)/mcL [facility] Blood specimen (specimen) 09/11/2013 2:57 PM EDT 09/11/2013 3:09 PM EDT Narrative Resulting Agency Comment Spec In Lab Drew Heaton MD HEMATOLOGY ORDERABLE S [facility] CLIFFORD documented in this encounter Visit Diagnoses Diagnosis Human immunodeficiency virus (HIV) disease- Primary Human immunodeficiency virus [HIV] disease documented in this encounter Care Teams Floodplain Manager Relationship Specialty Start Date End Date Husam Rosas MD [address] [place] [address] PCP - General 01/19/10 01/22/17 documented as of this encounter
--- OUTSIDE RECORDS SUMMARY | 2023-12-04 16:34 | XMS_ITS | Encounter Summary ---
Author Organization [facility] Address [facility] [place] [address] Care Team Providers Care Practice Or Student Teacher Name Role Phone Husam Rosas MD Primary Care Provider [phone] [phone] Reason for Visit * Reason Onset Date Comments Medication Refill 04/09/2013 Encounter Details Date Type Department Care Team (Late st Contact Info) Description 04/09/2013 [place] [address] Satya Wills MD [facility] [place] [address] Social History Tobacco Use Types Packs/Day Years [...] Telephone Encounter - Josiane Blank LPN - 04/09/2013 1:06 PM EST 04/09/13 at 1:06 pm I've left a voicemail for the pt's klonopin script on the pharmacist's message line as Dr Wills had already approved it. * Telephone Encounter - Josiane Blank LPN - 04/09/2013 11:12 AM EST Vistaril was sent electronically to pharmacy on 04/05/13. * Telephone Encounter - Josie Hagan - 04/09/2013 9:39 AM EST Name of Med: Clonopin Strength of Pills:1mg Dosing Directions: 1 tab in morning and 2 tabs at night 30 or 90 Day: 30 day Pharmacy: [facility] Last Appointment:02/08/13 Next Appointment:04/26/13 Name of Med: Hydroxizine Strength of Pills:25 mg Dosing Directions: 1 tab 2x per day 30 or 90 Day: 30 day Pharmacy: [facility] Last Appointment:02/08/13 Next Appointment:04/26/13 documented in this encounter Plan of Treatment Upcoming Encounters Date Type Department Care Team (Late st Contact Info) Description 03/06/2024 1:30 PM EST Office [place] [address] Satya Wills MD [facility] [place] [address] documented as of this encounter Visit Diagnoses Not on filedocumented in this encounter Care Teams Practice Or Student Teacher Relationship Specialty Start Date End Date Husam Rosas MD [address] [place] [address] PCP - General 01/19/10 01/22/17 documented as of this encounter
--- OUTSIDE RECORDS SUMMARY | 2023-12-04 16:34 | XMS_ITS | Encounter Summary ---
Author Organization [facility] Address [facility] [place] [address] Care Team Providers Care Tobacco Feeder Catcher Name Role Phone Husam Rosas MD Primary Care Provider +1 [phone] Reason for Visit * Reason Onset Date Comments Medication Refill 07/26/2013 Encounter Details Date Type Department Care Team (Late st Contact Info) Description 07/26/2013 [place] [phone] Satya Wills MD [facility] [place] [address] Social History Tobacco Use Types Packs/Day Years [...] encounter Miscellaneous Notes * Telephone Encounter - Anya Calix LPN - 07/26/2013 11:10 AM EDT Called Josiane at home number on file, . Discussed refill requests she called about today and the refills being done 07/24/13. Verbalized she ran out and did not call pharmacy before calling clinic for refill. Reiterated refills complete and at [facility]. Verbalized understanding of information provided. JULIA * Telephone Encounter - Carmel Rosario - 07/26/2013 10:33 AM EDT Name of Med: hydroxyzine Strength of Pills:25 mg Dosing Directions: take 1 capsule by mouth twice a day 30 or 90 Day: 30 day supply Pharmacy: [id number] [facility] [place] [address] [facility] Last Appointment:06/12/13 Next Appointment: 09/11/13 Name of Med: meloxicam Strength of Pills: 7.5 mg Dosing Directions: take 1 tablet by mouth once daily 30 or 90 Day: 30 day supply documented in this encounter Plan of Treatment Upcoming Encounters Date Type Department Care Team (Late st Contact Info) Description 03/06/2024 1:30 PM EST [place] [address] Satya Wills MD [facility] [place] [address] documented as of this encounter Visit Diagnoses Not on filedocumented in this encounter Care Teams Tobacco Feeder Catcher Relationship Specialty Start Date End Date Husam Rosas MD [address] [place] [address] PCP - General 01/19/10 01/22/17 documented as of this encounter
--- OUTSIDE RECORDS SUMMARY | 2023-12-04 16:34 | XMS_ITS | Encounter Summary ---
Author Organization [facility] Address [facility] [place] [address] Care Team Providers Care Front Office Secretary Name Role Phone Husam Rosas MD Primary Care Provider [phone] [phone] Reason for Visit * Reason Onset Date Comments Medication Refill 10/16/2012 Encounter Details Date Type Department Care Team (Late st Contact Info) Description 10/16/2012 Telephone [place] [phone] Drew Heaton MD [facility] [place] [address] Medication Refill Social History Tobacco Use Types [...] Telephone Encounter - Suzie Mars RN - 10/16/2012 5:34 PM EDT Attempted to contact Josiane to review most recent lab results; no answer; message left that I will call her on I did contact the [facility] to review fill history. Epzicom and reyataz filled 09/16/12. 08/20/12, 07/23/12, 06/18/12, 05/21/12 Viread and ritonavir filled 09/15/12,08/18/12,07/23/12, 06/22/12, 05/23/12, 04/25/12 * Telephone Encounter - Suzie Mars RN - 10/16/2012 5:21 PM EDT Clarissa Hodge in [facility] requests renewal prescriptions for Epzicom, and reyataz; scripts sent by e-script documented in this encounter Plan of Treatment Upcoming Encounters Date Type Department Care Team (Late st Contact Info) Description 03/06/2024 1:30 PM EST [place] [address] Satya Wills MD [facility] [place] [address] documented as of this encounter Visit Diagnoses Diagnosis Human immunodeficiency virus (HIV) disease- Primary Human immunodeficiency virus [HIV] disease documented in this encounter Care Teams Front Office Secretary Relationship Specialty Start Date End Date Husam Rosas MD [address] [place] [address] PCP - General 01/19/10 01/22/17 documented as of this encounter
--- OUTSIDE RECORDS SUMMARY | 2023-12-04 16:34 | XMS_ITS | Encounter Summary ---
Author Organization [facility] [place] [address] Care Team Providers Care Newspaper Subscription Solicitor Name Role Phone Husam Rosas MD Primary Care Provider [phone] [phone] Reason for Visit * Reason Comments Medication Refill Encounter Details Date Type Department Care Team (Late Contact Info) Description 08/08/2012 [place] [phone] Jayla Angel APRN [facility] [place] [address] Social History Tobacco Use Types Packs/Day Years [...] 1:30 PM EST [place] [phone] Satya Wills MD [facility] [place] [address] documented as of this encounter Visit Diagnoses Not on filedocumented in this encounter Care Teams Newspaper Subscription Solicitor Relationship Specialty Start Date End Date Husam Rosas MD [address] [place] [address] PCP - General 01/19/10 01/22/17 documented as of this encounter
--- OUTSIDE RECORDS SUMMARY | 2023-12-04 16:34 | XMS_ITS | Encounter Summary ---
Author Organization [facility] [place] [address] Care Team Providers Care Flute Grinder Name Role Phone Husam Rosas MD Primary Care Provider [phone] [phone] Encounter Details Date Type Department Care Team (Late st Contact Info) Description 09/11/2013 2:45 PM EDT [place] [phone] Satya Wills MD [facility] [place] [address] Epilepsy (Primary Dx) Discharge Disposition: Home Social [...] Time Taken Comments Blood Pressure 122/91 09/11/2013 3:02 PM EDT Pulse 91 09/11/2013 3:02 PM EDT Temperature - - Respiratory Rate - - Oxygen Saturation - - Inhaled Oxygen Concentration - - Weight 88.5 kg (195 lb) 09/11/2013 3:02 PM EDT Height 168.9 cm (5' 6.5) 09/11/2013 3:02 PM EDT Body Mass Index 31 09/11/2013 3:02 PM EDT documented in this encounter Patient Instructions * Patient Instructions* Satya Wills MD - 09/11/2013 3:28 PM EDT I think you're doing quite well. Seizure control appears to be improved. I am afraid we have not been able to control yourr headaches and insomnia particularly well Please stay on the same medications. I note the muscle spasm around the mouth, but I don't have a good treatment for it at the moment. There are drugs we could try, but while you're otherwise doing well I am reluctant to add anything Please call with any problems I will see you in November at a visit coordinated with Dr. Heaton. Satya Wills MD Department [place] [address] Pager: [phone], #[phone] Email: [email or web address] documented in this encounter Progress Notes * Satya Wills MD - 09/10/2013 11:34 PM EDT Chief Complaint: Epilepsy. History or [...] still complains of poor sleep. Seizure control appears improved. It is unclear how many minor seizures she is having, but she thinks they are few, and she has had not had any convulsive seizures that were causing her to fall out of bed and injure herself, for many months. Some of seizures she was having may have been alcohol related. She has stopped drinking for the past year medical history: Patient Active Problem List Diagnosis [...] and bladder function are unremarkable. Physical Examination: [facility] 11/26/2010 Head, eyes, ears, nose, and throat [...] times daily. 30 g 3 Laboratory Studies: Screening blood count chemistry liver profiles are unremarkable. He HIV viral load is very low at 59. CD4 count is somewhat low at 296 Impression: Seems to be doing rather better. 1. She is probably still having complex partial seizures, but she is no longer having large ones that were causing falls and injuries. She stopped Lamictal and felt better. As noted earlier, we have failed on [...] her seizures were related to alcohol withdrawal. The trial of clobazam unfortunately resulted in an allergic reaction and she is back on the combination of Vimpat and Klonopin. I am inclined to do nothing different at present. 2. Headaches are still not doing well. [...] disease. Satya Wills MD Department [place] [address] Pager: [phone], #[phone] Email: [email or web address] cc: ROSA ROSAS MD documented in this encounter Plan of Treatment Upcoming Encounters Date Type Department Care Team (Late st Contact Info) Description 03/06/2024 1:30 PM EST [place] [address] Satya Wills MD [facility] [place] [address] documented as of this encounter Visit Diagnoses Diagnosis Epilepsy- Primary Unspecified epilepsy without mention of intractable epilepsy documented in this encounter Care Teams Flute Grinder Relationship Specialty Start Date End Date Husam Rosas MD [address] [place] [address] PCP - General 01/19/10 01/22/17 documented as of this encounter
--- OUTSIDE RECORDS SUMMARY | 2023-12-04 16:34 | XMS_ITS | Encounter Summary ---
Author Organization [facility] Address [facility] [place] [address] Care Team Providers Care Transmission Worker Name Role Phone Husam Rosas MD Primary Care Provider [phone] [phone] Reason for Visit * Reason Onset Date Comments Prior Authorization 05/07/2013 ONFI APPROVE D 05/13/13-05/13/14 Encounter Details Date Type Department Care Team (Late st Contact Info) Description 05/07/2013 Telephone [place] [phone] Satya Wills MD [facility] [place] [address] Prior Authorization (ONFI APPROVED 05/13/13-05/13/14) Social History Tobacco Use Types Packs/Day Years [...] Miscellaneous Notes * Telephone Encounter - Deidre Horn - 05/14/2013 9:24 AM EDT ONFI APPROVED 05/13/13-05/13/14 [id number] * Telephone Encounter - Deidre Horn - 05/13/2013 9:23 AM EDT PA FOR ONFI FAXED TO [facility] * Telephone Encounter - Lesli Roldan - 05/07/2013 4:29 PM EDT Josiane received a letter in the mail stating that her clobazam is not covered by her insurance. She is on the Medicare Part A-B, D with [employer]. Medicare # [id number] Possible reference number from letter: [id number] The letter states that her doctor needs to call and explain why she needs to change medications from clonazepam to clobazam. Patient is just now finding out that she had [employer] as part of her coverage for her prescriptions. Phone number that was supplied on the letter to the appeals department: documented in this encounter Plan of Treatment Upcoming Encounters Date Type Department Care Team (Late st Contact Info) Description 03/06/2024 1:30 PM EST Office [place] [address] Satya Wills MD [facility] [place] [address] documented as of this encounter Visit Diagnoses Not on filedocumented in this encounter Care Teams Transmission Worker Relationship Specialty Start Date End Date Husam Rosas MD [address] [place] [address] PCP - General 01/19/10 01/22/17 documented as of this encounter
--- OUTSIDE RECORDS SUMMARY | 2023-12-04 16:34 | XMS_ITS | Encounter Summary ---
Author Organization [facility] [place] [address] Care Team Providers Care Day Care Assistant Name Role Phone Husam Rosas MD Primary Care Provider [phone] [phone] Encounter Details Date Type Department Care Team (Late st Contact Info) Description 10/24/2012 1:45 PM EDT [place] [phone] Satya Wills MD [facility] [place] [address] Epilepsy (Primary Dx) Discharge Disposition: Home Social [...] Sign Reading Time Taken Comments Blood Pressure 125/85 10/24/2012 1:37 PM EDT Pulse 66 10/24/2012 1:37 PM EDT Temperature - - Respiratory Rate - - Oxygen Saturation - - Inhaled Oxygen Concentration - - Weight 91.2 kg (201 lb) 10/24/2012 1:37 PM EDT Height 168.9 cm (5' 6.5) 10/24/2012 1:37 PM EDT Body Mass Index 31.96 10/24/2012 1:37 PM EDT documented in this encounter Patient Instructions * Patient Instructions* Satya Wills MD - 10/24/2012 2:29 PM EDT It seems that you're having more seizures. Please get blood tests done today to check antiepileptic drug levels Please increase the dose of Lamictal so that you would take 1-1/2 pills in the morning and 1-1/2 pills the evening. If you get dizzy please give a call. you could take one pill 3 times a day for the same total amount, but that may be harder to remember. I would like to see you back in 6 weeks. Satya Wills MD [place] [address] Pager: [phone], #[phone] Email: [email or web address] documented in this encounter Progress Notes * Satya Wills MD - 10/23/2012 10:40 PM EDT Chief Complaint: Epilepsy. History or Present Illness: The patient is seen in followup today. 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 She is about the same. She has 1-3 seizure/ month, mostly nocturnal. She has not had major accidents or injuries. She continues to have daily chronic headaches with daily sharp shooting pains on the right, and nausea about once a week. medical history: Patient Active Problem List Diagnosis Code ??? 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 HIV disease 042 ??? Dyslipidemia 272.4 ??? Migraine 346.90 ??? Obesity 278.00 ??? Depression 311 Review of systems: She has lost a fair amount of weight, she says intentionally. Sleep is disturbed her bad dreams which is worse than usual. Bowel and bladder function are unremarkable. Physical Examination: BP 125/85 Pulse 66 Ht 168.9 cm (5' 6.5) Wt 91.173 kg (201 lb) BMI 31.96 kg/m2 Head, eyes, ears, nose, and throat were normal, lungs are clear. Heart was normal. Extremities were unremarkable. Her mood was good and her speech was normal. There was minimal external deviation of the right eye as previously noted. It seems to be getting better. Cranial nerves were otherwise unremarkable. Strength was normal. Coordination remains mildly impaired. Reflexes were brisk. Sensation was normal. Her gait was stable. Medications: Current Outpatient Prescriptions Medication Status Sig Dispense Refill ??? lamoTRIgine (LAMICTAL) 200 mg tablet Active Take 1.5 tablets twice a day 90 tablet 6 ??? hydrOXYzine (VISTARIL) 25 mg capsule Active take 1 capsule by mouth twice a day 60 capsule 5 ??? abacavir-lamiVUDine (EPZICOM) 600-300 mg per tablet Active Take 1 tablet by mouth daily. 30 tablet 5 ??? atazanavir (REYATAZ) 300 mg capsule Active Take 1 capsule by mouth daily. 30 capsule 5 ??? clonAZEpam (KLONOPIN) 1 mg tablet Active take 1 tablet by mouth every morning and 2 every evening 90 tablet 5 ??? tenofovir (VIREAD) 300 mg tablet Active Take 1 tablet by mouth daily. 30 tablet 5 ??? ritonavir (RITONAVIR) 100 mg tablet Active Take 1 tablet by mouth daily. Please dispense tablets 30 tablet 11 ??? lamoTRIgine (LAMICTAL) 200 mg tablet Discontinued TAKE 1 1/2 TABLETS BY MOUTH IN THE MORNING AND 1 TABLET BY MOUTH IN THE EVENING 60 tablet 6 ??? VIMPAT 200 mg Tab Active take 1 tablet by mouth twice a day 60 tablet 5 ??? meloxicam (MOBIC) 7.5 mg tablet Active take 1 tablet by mouth once daily 30 tablet 11 ??? albuterol (PROVENTIL HFA;VENTOLIN HFA) 90 mcg/Actuation inhaler Active Inhale 2 puffs into the lungs every 4 hours as needed. Use with spacer ??? polyethylene glycol (MIRALAX) 17 gram/dose powder Active Take 17 g by mouth 2 times daily. ??? Multivitamins with Iron Tab Active Take 1 tablet by mouth daily. 30 tablet 11 ??? prochlorperazine (COMPAZINE) 10 mg tablet Active Take 10 mg by mouth 3 times daily as needed. ??? ketoconazole (NIZORAL) 2 % cream Discontinued Apply topically 2 times daily. 30 g 0 Laboratory Studies: He recently had unremarkable CBC chemistry and liver profiles. I am checking anticonvulsant levels today. Impression: The situation is stable. She is probably still having complex partial and secondary generalized seizures. I think we have done most of what we can at the moment with regard to medical management. I recommended increasing thedose of Lamictal up to 300 mg twice a day. As new drugs have become available, we can consider trying those. Cobazam would be the next logical choice. As noted earlier, we have failed on 2 occasions in spite of extensive inpatient video recording to capture any seizures since she had surgery. This was in spite of taking her off of all antiepileptic medication. There is some doubt in my mind as towhether all the events that she is now [...] I will see her back in 6 weeks.. Satya Wills MD Department [place] [address] Pager: [phone], #[phone] Email: [email or web address] cc: ROSA ROSAS MD documented in this encounter Miscellaneous Notes * Addendum Note - Tereza Walsh - 10/24/2012 2:52 PM EDTAddended by: TEREZA WALSH on: 10/24/2012 02:52 PM Modules accepted: Orders documented in this encounter Plan of Treatment Upcoming Encounters Date Type Department Care Team (Late st Contact Info) Description 03/06/2024 1:30 PM EST Office Visit Neurology at [place] [phone] Satya Wills MD [facility] [place] [address] documented as of this encounter Procedures Procedure Name Priority Date/Time Associated Diagnosis Comments MISCELLANEOUS LAB REQUEST Routine 10/24/2012 2:58 PM EDT Epilepsy LAMOTRIGINE LVL Routine 10/24/2012 2:58 PM EDT Epilepsy LACOSAMIDE LEVEL Routine 10/24/2012 2:58 PM EDT documented in this encounter Results * Lacosamide Level (10/24/2012 2:58 PM EDT) Lacosamide Level (JUNE) 9.0 mcg/mL [facility]UM Comment: Test Performed by: [facility]. [address] [place] [id number] Desmethyllacosamide Level 0.7 mcg/mL CERNER MILLENNIUM Comment: Expected concentrations of lacosamide in patients receiving recommended daily dosages: ??up to 15.0 ug/mL. Toxic range not established Test Performed by: [facility]. [address] [place] [id number] Blood specimen (specimen) 10/24/2012 2:58 PM EDT 10/24/2012 3:58 PM EDT Narrative Resulting Agency Comment Spec In Lab Satya Wills MD LAB SEND OUT ORDERAB LES [facility] * Miscellaneous Lab request (10/24/2012 2:58 PM EDT) Label Request received in lab. CERJANIYA MILLBRENDAIUM Specimen of unknown material (specimen) 10/24/2012 2:58 PM EDT 10/24/2012 3:04 PM EDT Satya Wills MD LAB SEND OUT ORDERAB LES CHIARA CLIFFORD * Lamotrigine Lvl (10/24/2012 2:58 PM EDT) Lamotrigine Lvl (JUNE) <0.2 2.5 - 15.0 mcg/mL CHIARA SEBASTIANIUM Comment: Test Performed by: [place] [address] Tomography Technologist: Greg Frazier III, M.D. Blood specimen (specimen) 10/24/2012 2:58 PM EDT 10/24/2012 3:58 PM EDT Narrative Resulting Agency Comment Spec In Lab Satya Wills MD LAB SEND OUT ORDERAB LES Performing Organization Address City/[facility]/ZIP Co de Phone Number CHIARA CLIFFORD documented in this encounter Visit Diagnoses Diagnosis Epilepsy- Primary Unspecified epilepsy without mention of intractable epilepsy documented in this encounter Care Teams Day Care Assistant Relationship Specialty Start Date End Date Husam Rosas MD [address] [place] [address] PCP - General 01/19/10 01/22/17 documented as of this encounter
--- OUTSIDE RECORDS SUMMARY | 2023-12-04 16:34 | XMS_ITS | Encounter Summary ---
Author Organization [facility] Address [facility] [place] [address] Care Team Providers Care Retail Specialist Name Role Phone Husam Rosas MD Primary Care Provider [phone] [phone] Reason for Visit * Reason Onset Date Comments Other 11/02/2012 Encounter Details Date Type Department Care Team (Late st Contact Info) Description 11/02/2012 [place] [phone] Kassidy Diallo MD [facility] [place] [place] [address] Other Social History Tobacco Use Types Packs/Day [...] encounter Miscellaneous Notes * Telephone Encounter - Joisane BlankKENDRA - 11/02/2012 10:19 AM EDT 11/02/12 at 10:19 am Follow up call: I spoke to the pt who tells me that she had missed many doses ofLamictal as she had been vomiting every day since before 10/16/12. She was seen by her PCP on 10/18/12 andpt tells me he didn't say too much. Her PCP didn't do any testing. She reports that a few days after that visit she was seen at her local ED. The doctor there gave her medication for nausea which made herorse. She is scheduledto see her PCP again on 11/16/12. Pt says she thought she had mentioned to Dr Diallo about the vomiting. Pt felt the Lamictal was the cause of her vomiting so she stopped taking it regularly. I pointed out to her that even though she stopped taking it, her vomiting continued. She agreed to start taking Lamictal as prescribed and will follow up with her PCP re: the nausea and vomiting. Pt was vague in her answers throughout our conversation. I told the pt that I would let Dr Diallo of our conversation. Would you give her a call. He lamictal level is zero and I suspect non- compliance. I spoke to her PCP already. Thanks, kassidy diallo documented in this encounter Plan of Treatment Upcoming Encounters Date Type Department Care Team (Late st Contact Info) Description 03/06/2024 1:30 PM EST Office [place] [address] Kassidy Diallo MD [facility] [place] [address] documented as of this encounter Visit Diagnoses Not on filedocumented in this encounter Care Teams Retail Specialist Relationship Specialty Start Date End Date Husam Rosas MD [address] [place] [address] PCP - General 01/19/10 01/22/17 documented as of this encounter
--- OUTSIDE RECORDS SUMMARY | 2023-12-04 16:34 | XMS_ITS | Encounter Summary ---
Author Organization [facility] Address [facility] [place] [address] Care Team Providers Care Steam Locomotive Firer/Fireman Name Role Phone Husam Rosas MD Primary Care Provider [phone] [phone] Reason for Visit * Reason Comments Follow-up Encounter Details Date Type Department Care Team (Latest Contact Info) Description 06/12/2013 1:45 PM EDT Follow-[place] [address] Drew Heaton MD [facility] [place] [address] Human immunodeficiency virus (HIV) disease (Primary Dx) [...] Reading Time Taken Comments Blood Pressure 139/88 06/12/2013 1:31 PM EDT Pulse 60 06/12/2013 1:31 PM EDT Temperature 36.7 ??C (98.1 ??F) 06/12/2013 1:31 PM ED T Respiratory Rate 20 06/12/2013 1:31 PM EDT Oxygen Saturation - - Inhaled Oxygen Concentration - - Weight 88.9 kg (196 lb) 06/12/2013 1:31 PM EDT Height - - Body Mass Index 31.16 04/26/2013 9:39 AM EST documented in this encounter Progress Notes * Drew Heaton MD - 06/12/2013 2:03 PM EDT This is a scheduled appointment for an HIV infected woman last seen by me in clinic four months ago, since when she has actually done well. The pelvic pain present at the last appointment resolved after treatment for BV and UTI. The seizures also sound somewhat improved.. Blood pressure 139/88, pulse 60, temperature 36.7 ??C (98.1 ??F), resp. rate 20, weight 88.905 kg (196 lb), last menstrual [...] Normal 05/27/2009 Normal Vag colpo: Last pelvic: Tank Officer exam: 05/27/2009 Anal pap: Rectal colpo: CD4: 06/12/2013 02/08/2013 294 10 10/05/2012 217 10 Chris: 06/12/2013 VL: 06/12/2013 02/08/2013 23,828 10/05/2012 16,303 Max VL: 04/30/2003 28,700 Resist assays: 02/08/2013 [...] as long as all goes well. I remainvery perplexed by this and have been unable to sort out adherence issues - if PCR again elevated wewill pursue this further with her pharmacies again. [...] again seeing a therapist. 8. Abnormal pap smear/instructor private. Pap smear February 2013 was normal. 9. Obesity. Not addressed today. 10. Hyperlipidemia. Not addressed today. 11. Smoking. Had stopped smoking in February, but is now still smoking. I previously strongly encouraged her to again try stopping and we explored her ambivalnce. Her main water taxi driver to stop is cost so we previously explored how much she would save should she stop; while her main challenge is that her friend Neo smokes. Again addressed by me today, but she remains barely contemplative about plans. 12. Rectal bleeding. Seen Dr. Hermosillo. Colonoscopy unremarkable. Has considered surgical banding, but not discussed by me today. 13. General health care. Mammogram February 2012. Colonoscopy 04/28/10 revealed multiple polyps so will repeat in three years (2013). 14. Transaminitis. Significantly worse at last appointment, but it turns out she was drinking fairly significantly and has now stopped - repeat today. 30 minutes [id number] time spent with the patient, 20 minutes of which was in discussion and counseling about management of HIV. Follow-up in 3-4 months. documented in this encounter Plan of Treatment Upcoming Encounters Date Type Department Care Team (Late st Contact Info) Description 03/06/2024 1:30 PM EST [place] [address] Satya Wills MD [facility] [place] [address] documented as of this encounter Procedures Procedure Name Priority Date/Time Associated Diagnosis Comments HIV QUANT Routine 06/12/2013 2:25 PM EDT Human immunodeficiency virus (HIV) disease CD4 Routine 06/12/2013 2:25 PM EDT Human immunodeficiency virus (HIV) disease DIFFERENTIAL, AUTOMATED Routine 06/12/2013 2:25 PM EDT HIV-1 RNA, QUANTITATIVE, PCR Routine 06/12/2013 2:25 PM EDT Human immunodeficiency virus (HIV) disease CBC (WITH DIFF) Routine 06/12/2013 2:25 PM EDT Human immunodeficiency virus (HIV) disease COMPREHENSIVE METABOLIC PANEL Routine 06/12/2013 2:25 PM EDT Human immunodeficiency virus (HIV) disease documented in this encounter Results * Differential, Automated (06/12/2013 2:25 PM EDT) Neutrophil % 45.1 34.0 - 71.0 % RUTNER MILLENNIUM Neutrophil Absolute 2.70 1.50 - 6.30 x10(3)/mcL CERNER MILLENNIUM Lymph % 46.2 19.0 - 53.0 % CERNER MILLENNIUM Lymphocytes Abs 2.8 1.0 - 3.6 x10(3)/mcL CERNER MILLENNIUM Monocyte % 7.2 4.0 - 13.0 % CERNER MILLENNIUM Monocyte Abs 0.4 0.2 - 1.0 x10(3)/[facility] CERNER MILLENNIUM Eos % 1.0 0.0 - 7.0 % CERNER MILLENNIUM Eosinophils Abs 0.1 0.0 - 0.5 x10(3)/mcL CERNER MILLENNIUM Basophil % 0.3 0.0 - 2.0 % CERNER MILLENNIUM Baso Absolute 0.0 0.0 - 0.2 x10(3)/mcL CERNER MILLENNIUM Immature Gran % 0.20 0.00 - 0.66 % CERJANIYA ARAYAENNIUM Comment: Immature granulocytes(IG's)percentage and absolute count will include metamyelocytes, myelocytes, and promyelocytes. Blood smears from CBCs yielding IG's will be scanned manually for concordance. If this scan disagrees with the automated IG or if promyelocytes are noted, a manual differential will be performed. Immature Gran Absolute 0.01 0.00 - 0.05 x10(3)/mcL CHIARA SEBASTIANIUM Blood specimen (specimen) 06/12/2013 2:25 PM EDT 06/12/2013 3:01 PM EDT Drew Heaton MD HEMATOLOGY ORDERABLE S [facility] CLIFFORD * HIV Quant (06/12/2013 2:25 PM EDT) HIV Viral Load Result (Qualitative) * RESULT: 59 copies/mL * INDICATION FOR STUDY: HIV-1 Infection [...] Administration. Robert Fuentes, Ph.D. Director, Molecular Pathology [facility] Comment: [VERIFIED DATE]06.17.13 Verified By:Constance Hightower (Electronic Signature) Blood specimen (specimen) 06/12/2013 2:25 PM EDT 06/12/2013 3:01 PM EDT Narrative Resulting Agency Comment Spec In Lab Drew Heaton MD HEMATOLOGY ORDERABLE S [facility] * (ABNORMAL) Comprehensive metabolic panel (non-fasting) (06/12/2013 2:25 PM EDT) Glucose 101 60 - 199 mg/dL [facility] Comment:Diabetes: >=200 mg/d L plus symptoms Blood Urea Nitrogen 9 8 - 18 mg/dL [facility] Creatinine 0.92 0.70 - 1.20 mg/dL [facility] Comment: Please note that the pediatric reference intervals supplied above were not validated at [facility]. Results from pediatric patients should be interpreted in conjunction to the patient's age, height and muscle mass. Sodium 142 135 - 145 mmol/L CERNER MILLENNIUM Potassium 4.2 3.5 - 5.0 mmol/L [facility] Comment: Please note: ??Patients with WBC >100,000 may have falsely elevated Potassium levels. ??For accurate Potassium quantification in these patients send serum separator tube (gold top) for subsequent determinations. ??Contact the Clinical Chemistry Laboratory if there are any questions. Chloride 103 98 - 107 mmol/L CERNER MILLENNIUM Carbon Dioxide 28 22 - 31 mmol/L CERNER MILLENNIUM Anion Gap 11 5 - 15 mmol/L CERNER MILLENNIUM Calcium 9.8 8.5 - 10.5 mg/dL CERNER MILLENNIUM Protein, Total 7.3 6.4 - 8.3 gm/dL CERNER MILLENNIUM Albumin 4.1 3.2 - 5.2 gm/dL CERNER MILLENNIUM Aspartate Aminotransferase 24 0 - 30 unit/L CERNER MILLENNIUM Alanine Aminotransferase 27 0 - 30 unit/L CERNER MILLENNIUM Alkaline Phosphatase 49 40 - 104 unit/L CERNER MILLENNIUM Bilirubin, Total 1.6(H) 0.2 - 1.3 mg/dL CERNER MILLENNIUM Bilirubin, [...] internet browser. http://www.nkdep.nih.gov/lab-evaluation.shtml http://www.kidney.org/professionals/ Blood specimen (specimen) 06/12/2013 2:25 PM EDT 06/12/2013 3:01 PM EDT Narrative Resulting Agency Comment Spec In Lab Drew Heaton MD CHEMISTRY ORDERABLES CERNER MILLENNIUM * (ABNORMAL) CD4 (06/12/2013 2:25 PM EDT) CD3% 93(H) 55 - 82 % CERNER MILLENNIUM CD3 ABS 2591(H) 731 - 2438 /mcl CERNER MILLENNIUM CD 4% 11(L) 35 - 61 % CERNER MILLENNIUM CD 4ABS 296(L) 503 - 1736 /mcl CERNER MILLENNIUM Comment: [...] CD4, CD8, CD19, CD16+56) Blood specimen (specimen) 06/12/2013 2:25 PM EDT 06/12/2013 3:01 PM EDT Narrative Resulting Agency Comment Spec In Lab Drew Heaton MD HEMATOLOGY ORDERABLE S CERNER MILLENNIUM * (ABNORMAL) CBC (with Diff) (06/12/2013 2:25 PM EDT) White Blood Cell 6.0 4.0 - 10.0 x10(3)/mc L CERNER MILLENNIUM Red Blood Cell 3.98 3.93 - 5.22 x10(6)/mc L CERNER MILLENNIUM Hemoglobin 14.1 11.2 - 15.7 gm/dL CERNER MILLENNIUM Hematocrit 40.9 34.0 - 45.0 % CERNER MILLENNIUM Mean Cell Volume 102.8(H) 79.0 - 94.0 fL CERNER MILLENNIUM Mean Cell Hemoglobin 35.4(H) 26.6 - 32.2 pg CERNER MILLENNIUM Mean Cell Hemoglobin Concentration 34.5 32.0 - 36.5 gm/dL CERNER MILLENNIUM Platelet 164 145 - 370 x10(3)/mc L CERNER MILLENNIUM RDW Standard Deviation 51.5(H) 35.0 - 46.0 fL CERNER MILLENNIUM RDW coefficient of variation 13.7 10.9 - 14.4 % CERNER MILLENNIUM Mean Platelet Volume 9.5 9.0 - 12.0 fL CERNER MILLENNIUM Blood specimen (specimen) 06/12/2013 2:25 PM EDT 06/12/2013 3:01 PM EDT Narrative Resulting Agency Comment Spec In Lab Drew Heaton MD HEMATOLOGY ORDERABLE S CERNER MILLENNIUM documented in this encounter Visit Diagnoses Diagnosis Human immunodeficiency virus (HIV) disease- Primary Human immunodeficiency virus [HIV] disease documented in this encounter Care Teams Steam Locomotive Firer/Fireman Relationship Specialty Start Date End Date Husam Rosas MD [address] [facility] [address] [address] PCP - General 01/19/10 01/22/17 documented as of this encounter
--- OUTSIDE RECORDS SUMMARY | 2023-12-04 16:34 | XMS_ITS | Encounter Summary ---
Author Organization [facility] Address [facility] [place] [address] Care Team Providers Care Field Map Technician Name Role Phone Husam Rosas MD Primary Care Provider [phone] [phone] Encounter Details Date Type Department Care Team (Late st Contact Info) Description 02/08/2013 11:15 AM EST [place] [phone] Satya Wills MD [facility] [place] [address] Epilepsy (Primary Dx) Discharge Disposition: Home Social [...] Time Taken Comments Blood Pressure 131/81 02/08/2013 12:05 PM EST Pulse 72 02/08/2013 12:05 PM EST Temperature - - Respiratory Rate - - Oxygen Saturation - - Inhaled Oxygen Concentration - - Weight 89.1 kg (196 lb 8 oz) 02/08/2013 12:05 PM EST Height 168.9 cm (5' 6.5) 02/08/2013 12:05 PM ES T Reported Body Mass Index 31.24 02/08/2013 12:05 PM EST documented in this encounter Progress Notes * Satya Wills MD - 02/08/2013 12:29 PM EST The patient cancelled. Satya Wills MD [place] [address] Pager: [phone], #[phone] Email: [email or web address] documented in this encounter Plan of Treatment Upcoming Encounters Date Type Department Care Team (Late st Contact Info) Description 03/06/2024 1:30 PM EST Office [place] [address] Satya Wills MD [facility] [place] [address] documented as of this encounter Visit Diagnoses Diagnosis Epilepsy- Primary Unspecified epilepsy without mention of intractable epilepsy documented in this encounter Care Teams Field Map Technician Relationship Specialty Start Date End Date Husam Rosas MD [address] [place] [address] PCP - General 01/19/10 01/22/17 documented as of this encounter
--- OUTSIDE RECORDS SUMMARY | 2023-12-04 16:34 | XMS_ITS | Encounter Summary ---
Author Organization [facility] [place] [address] Care Team Providers Care Dining Car Conductor Name Role Phone Husam Rosas MD Primary Care Provider [phone] [phone] Reason for Visit * Reason Comments Medication Refill Encounter Details Date Type Department Care Team (Late st Contact Info) Description 05/29/2013 [place] [address] Satya Wills MD [facility] [place] [address] Social History Tobacco Use Types Packs/Day Years [...] Miscellaneous Notes * Telephone Encounter - Alicia Vail RN - 05/29/2013 10:27 AM EDT Pt calls for refill of Vimpat through [facility] in [place], [place]. Last clinic visit: 04/26/2013 Next clinic visit: 06/12/2013 documented in this encounter Plan of Treatment Upcoming Encounters Date Type Department Care Team (Late st Contact Info) Description 03/06/2024 1:30 PM EST [place] [address] Satya Wills MD [facility] [place] [address] documented as of this encounter Visit Diagnoses Not on filedocumented in this encounter Care Teams Dining Car Conductor Relationship Specialty Start Date End Date Husam Rosas MD [address] [facility] [place] [address] PCP - General 01/19/10 01/22/17 documented as of this encounter
--- OUTSIDE RECORDS SUMMARY | 2023-12-04 16:34 | XMS_ITS | Encounter Summary ---
Author Organization [facility] Address [facility] [place] [address] Care Team Providers Care Mason Helper Name Role Phone Husam Rosas MD Primary Care Provider [phone] [phone] Reason for Visit * Reason Comments Medication Refill Encounter Details Date Type Department Care Team (Late Contact Info) Description 07/24/2013 Ref[place] [address] Drew Heaton MD [facility] DR INFECTIOUS [place] [address] Human immunodeficiency virus (HIV) disease (Primary Dx) [...] 1:30 PM EST [place] [phone] Satya Wills MD [facility] [place] [address] documented as of this encounter Visit Diagnoses Diagnosis Human immunodeficiency virus (HIV) disease- Primary Human immunodeficiency virus [HIV] disease documented in this encounter Care Teams Mason Helper Relationship Specialty Start Date End Date Husam Rosas MD [address] [place] [address] PCP - General 01/19/10 01/22/17 documented as of this encounter
--- OUTSIDE RECORDS SUMMARY | 2023-12-04 16:34 | XMS_ITS | Encounter Summary ---
Author Organization [facility] [place] [address] Care Team Providers Care Sharepoint Solutions Developer Name Role Phone Husam Rosas MD Primary Care Provider [phone] [phone] Reason for Visit * Reason Comments Medication Refill Encounter Details Date Type Department Care Team (Late st Contact Info) Description 10/09/2012 [place] [address] Jayla Angel APRN [facility] [place] [address] Social History Tobacco Use Types Packs/Day Years [...] Encounter - Josiane Blank LPN - 10/10/2012 11:04 AM EDT 10/10/12 I've left a voicemail message on the pharmacy's message line for the pt's klonopin script at 11:04 am. documented in this encounter Plan of Treatment Upcoming Encounters Date Type Department Care Team (Late Contact Info) Description 03/06/2024 1:30 PM EST Office [place] [address] Satya Wills MD [facility] [place] [address] documented as of this encounter Visit Diagnoses Not on filedocumented in this encounter Care Teams Sharepoint Solutions Developer Relationship Specialty Start Date End Date Husam Rosas MD [address] [place] [address] PCP - General 01/19/10 01/22/17 documented as of this encounter
--- OUTSIDE RECORDS SUMMARY | 2023-12-04 16:35 | XMS_ITS | Encounter Summary ---
Author Organization [facility] [place] [address] Care Team Providers Care Catalogue Clerk Name Role Phone Husam Rosas MD Primary Care Provider [phone] -[phone] Encounter Details Date Type Department Care Team ([facility] st Contact Info) Description 01/07/2011 Notes Only [facility]ious Disease at [facility] [place] [phone] Suzie Mars, RN Social History Tobacco Use Types Packs/Day Years Used Date Smoking Tobacco: Every Day Cigarettes 0.3 35 Smokeless Tobacco: Never Alcohol Use Standard Drinks/Week Comments Yes 0 (1 standard drink = 0.6 oz pur e alcohol) trying to quit Sex and Gender Information Value Date Recorded Sex Assigned at Not on file Gender Identity Not on file Sexual Orientation Not on file documented as of this encounter Progress Notes * Suzie Mars, RN - 01/07/2011 9:03 AM EST HRSA Screening HRSA screening completed on ___12/31/2010 DENTAL: seen in past year by Date: ___x__ not seen in past year Referral not needed needs referral ___x__ declines referral RISK REDUCTION __x___ no referral needed referral made (Partner Notification, SA, RR) referral declined SUBSTANCE USE SA score __6___ __x___ referral not indicated low score ___x___ already in care referral indicated/accepted referral declined MENTAL HEALTH MH Score __7____ ____ referral not indicated low score in care __x__ referral made (___Cristine from [facility] is working with Josiane to connect her to MH services ) ____ referral declined documented in this encounter Plan of Treatment Upcoming Encounters Date Type Department Care Team (Late st Contact Info) Description 03/06/2024 1:30 PM EST [place] [address] Satya Wills MD [facility] [place] [address] documented as of this encounter Visit Diagnoses Not on filedocumented in this encounter Care Teams Catalogue Clerk Relationship Specialty Start Date End Date Husam Rosas MD [address] [place] [address] PCP - General 01/19/10 01/22/17 documented as of this encounter
--- OUTSIDE RECORDS SUMMARY | 2023-12-04 16:35 | XMS_ITS | Encounter Summary ---
Author Organization [facility] Address [facility] [place] [address] Care Team Providers Care Belt Fixer Name Role Phone Elias Rosas MD Primary Care Provider +1 [phone] Reason for Visit * Reason Comments Gynecologic Exam last pap 08/11/10 WNL Encounter Details Date Type Department Care Team (Late st Contact Info) Description 03/02/2012 11:15 AM EST Office Visit Obstetrics [place] [phone] Licha Orellana APRN [facility] OBSTETRICS & [place] [address] Screening (Primary Dx) Discharge Disposition: Home Social History [...] Sign Reading Time Taken Comments Blood Pressure 118/78 03/02/2012 11:07 AM EST Pulse - - Temperature - - Respiratory Rate - - Oxygen Saturation - - Inhaled Oxygen Concentration - - Weight 103 kg (227 lb 1.6 oz) 03/02/2012 11:07 A M EST Height 168.9 cm (5' 6.5) 03/02/2012 11:07 AM ES T Body Mass Index 36.11 03/02/2012 11:07 AM EST documented in this encounter Progress Notes * Licha Orellana APRN - 03/02/2012 11:26 AM EST Josiane Pacheco [id number] ELIAS ROSAS MD 03/02/2012 Feel her cervix before putting in the speculum for pap Gynecologic Exam Josiane Pacheco is a 56 y.o. woman who presents today for an annual exam. ADMINISTRATIVE VOLUNTEER History: Menopausal for over one year now with no vaginal bleeding. Abnormal pap history in the past, all normal recently Not sexually active at this time. No breast, bladder, or bowel concerns/complaints. States her health has been good, depressed through the holidays, son did not visit, although he lives in a nearby town. Last attended her AA mting in 12/2011- did have some drinks at that time, but states that it didn'tfeel right and wasn't worth it. Health Maintenance: Mammogram 05/2011- normal Past Medical History Diagnosis Date ??? HIV disease 05/28/2010 History reviewed. No pertinent past surgical history. Health Related Habits: smoker. ETOH use as above Exercise: not much, likes to walk, would like to start spinning Social History: living alone at this time Family History: Mother: 82 and VERY active in [place]- still working with the government and driving Father: Siblings: Sister lives with her mother, she doesn't get along with her Outpatient Prescriptions Marked as Taking for the 03/02/12 encounter (Office Visit) with Licha Orellana APRN Medication Sig Dispense Refill ??? VIREAD 300 mg tablet take 1 tablet by mouth once daily 30 tablet 5 ??? VIMPAT 200 mg Tab take 1 tablet by mouth twice a day 60 tablet 5 ??? lamoTRIgine (LAMICTAL) 200 mg tablet Take by mouth. Take 1.5 in AM and 1 in PM 60 tablet 6 ??? abacavir-lamiVUDine (EPZICOM) 600-300 mg per tablet Take 1 tablet by mouth daily. 30 tablet 5 ??? atazanavir (REYATAZ) 300 mg capsule Take 1 capsule by mouth daily. 30 capsule 5 ??? sulfamethoxazole-trimethoprim (BACTRIM) 400-80 mg per tablet Take 1 tablet by mouth daily. 30 tablet 11 ??? hydrOXYzine (VISTARIL) 25 mg capsule take 1 capsule by mouth twice a day 60 capsule 5 ??? LYRICA 50 mg capsule take 1 capsule by mouth twice a day 60 capsule 5 ??? clonAZEpam (KLONOPIN) 1 mg tablet Take by mouth. one tab am, take 2 tabs at HS. 90 tablet 5 ??? Ritonavir (RITONAVIR) 100 mg Tab Take 100 mg by mouth daily. Please dispense tablets 30 tablet 11 ??? meloxicam (MOBIC) 7.5 mg tablet Take 1 tablet by mouth daily. 30 tablet 12 ??? albuterol (PROVENTIL HFA;VENTOLIN HFA) 90 mcg/Actuation inhaler Inhale 2 puffs into the lungs every 4 hours as needed. Use with spacer ??? polyethylene glycol (MIRALAX) 17 gram/dose powder Take 17 g by mouth 2 times daily. ??? hyoscyamine (LEVSIN) 0.125 mg tablet Take 0.125 mg by mouth 3 times daily as needed. ??? Multivitamins with Iron Tab Take 1 tablet by mouth daily. 30 tablet 11 ??? prochlorperazine (COMPAZINE) 10 mg tablet Take 10 mg by mouth 3 times daily as needed. Allergies as of 03/02/2012 - Review Complete 03/02/2012 Allergen Reaction Noted ??? Topiramate Itching Physical Examination: BP 118/78 Ht 168.9 cm (5' 6.5) Wt 103.012 kg (227 lb 1.6 oz) BMI 36.11 kg/m2 LMP 11/26/2010 NAD. NC/AT. A&Ox3. Pleasant. Breasts: no dominant masses, no discharge, no lymphadenopathy Abdomen: soft, nontender, no organomegaly Pelvic External genitalia: normal appearance, no fusion noted BSU: normal Vagina: normal with no lesions Cervix: no CMT, pink- anterior tucked behind her pubic bone. Uterus: A/V, normal size, shape and consistency Adnexa: nontender, no masses palpated Rectovaginal exam: normal tone, confirms above Impression: Normal fish protector exam Plan: Health Maintenance: Pap smear/HPV done today. Reviewed BSE. Reinforcement re: positive health behaviors. Do yearly paps 2/2 HIV status documented in this encounter Plan of Treatment Upcoming Encounters Date Type Department Care Team (Late st Contact Info) Description 03/06/2024 1:30 PM EST [place] [address] Satya Wills MD [facility] [place] [address] documented as of this encounter Procedures Procedure Name Priority Date/Time Associated Diagnosis Comments REPAIR MANAGER MOLECULAR GENETICS REPORT Routine 03/02/2012 1:58 PM EST REPAIR MANAGER CYTOLOGY FINAL REPORT Routine 03/02/2012 1:58 PM EST CYTOPATHOLOGY GYNECOLOGICAL Routine 03/02/2012 11:51 AM EST Screening documented in this encounter Results * REPAIR MANAGER Molecular Genetics Report (03/02/2012 1:58 PM EST) REPAIR MANAGER Molecular Genetics Report ? [facility] ? Provider: ?? LICHA ORELLANA ?? Pt. Name: ?? JOSIANE PACHECO ? Acc #: ?[id number] ?Pt. ? Col Date: ?? 03/02/2012 ?/Sex: ?1955,(56 years),Female ? Rec Date: ?? 03/02/2012 ?LOC: ?5L ? MOLECULAR GENETIC STUDIES ? ---REPORT OF DNA ANALYSIS--- ? Rashad Wilton HPV test ? NEGATIVE for high-risk HPV [...] Based Prep ? Reviewed by: ??[facility] ? A ?NANY Cerv-Endocerv LBP ? B ?HPVDO Do HPV Testing ? Verified date: ??03/09/12 ??ABH ? Verified by: ?Lab Review, Molecular Genetics ? (Electronic Signature) [facility] 03/02/2012 1:58 PM EST Licha Orellana BIBLE TEACHER PATHOLOGY/CYTOLOGY ORDERABLES Performing Organization Address City/State/[facility] Co de Phone Number [facility] * Building Drafter Cytology Final Report (03/02/2012 1:58 PM EST) Building Drafter Cytology Final Report ? [facility] ? Provider: ?? LICHA ORELLANA ?? Pt. Name: ?? HAYLEY JOSIANE Layton ? Acc #: ?[id number] ?Pt. ? Col Date: ?? 03/02/2012 ?/Sex: ?1955,(56 years),Female ? Rec Date: ?? 03/02/2012 ?LOC: ?5L ? CYTOPATHOLOGY: ??REPAIR MANAGER ? ---Adequacy--- ? Specimen submitted is satisfactory [...] for Intraepithelial Lesion or Malignancy (NILM). ? 03/06/12 ?? Screened by: ??SLA ? 03/06/12 ?? Verified by: ??Rangel CT(ASCP), Brittanie Mcghee - ? Aluminum Siding Installer ? ---Comment--- ? Predominance of coccobacilli consistent with shift in vaginal shine. ? HPV testing is ordered and result pending. ? ---Clinical Information--- ? HPV Option: ? Concurrent HPV ? Preparation: ?Liquid Based Pap ? Specimen Source: ?Cervical Endocervical LBP ? LMP: ?observation assistant ? Hormones?: ?No ? Hysterectomy?: ?No ?: ?No ?: ?No ? I.U.D.?: ?No ? Pelvic Radiation: ? No ? Prior REPAIR MANAGER Therapy?: ? No ? Hist Abnl Pap/Biopsy?: ??Yes, history of previous abnormal Pap ? Hist of HPV Vaccine?: ?? No ? Hist of Smoking?: ? Yes ? Hist of LUANNE exposure?: ??No ? Clinical Data, Significant Therapy and Clinical Impression: ? HIV + ? [facility] ? Provider: ?? LICHA ORELLANA ?? Pt. Name: ?? JOSIANE PACHECO ? Acc #: ?[id number] ?Pt. ? Col Date: ?? 03/02/2012 ?/Sex: ?1955,(56 years),Female ? Rec Date: ?? 03/02/2012 ?LOC: ?5L ? CYTOPATHOLOGY: ??REPAIR MANAGER ? This Pap Test has been evaluated with the assistance of the ThinPrep Pap ? Test Imaging System. ? Note: ? The Pap test is a screening test for cervical cancer with an inherent ? false-negative rate dependent upon several variables. ??For further ? information please contact the [facility]. ? Reference: ??Geetha CS. ??Environmental Health Nurse of Pap Smear Results. ??In: ? Keenan BS, James HH, ed. ??The Pap Smear. ??[place]: ??Shaw, 2002: ? 71-77. CHIARA CLIFFORD 03/02/2012 1:58 PM EST Licha Orellana BIBLE TEACHER PATHOLOGY/CYTOLOGY ORDERABLES HCIARA CLIFFORD * Cytopathology Gynecological (03/02/2012 11:51 AM EST) AP Specimen 03/02/2012 11:5 1 AM EST 03/02/2012 11:51 AM EST Narrative CHIARA CLIFFORD - 03/02/2012 11:51 AM EST Specimen requisition ordered. ??Separate Pathology report to follow Serena Rangel MD PATHOLOGY/CYTOLOGY ORDERABLES Performing Organization Address City/State/[facility] Phone Number [facility] documented in this encounter Visit Diagnoses Diagnosis Screening- Primary Screening for unspecified condition documented in this encounter Care Teams Belt Fixer Relationship Specialty Start Date End Date Elias Rosas MD [address] [place] [address] PCP - General 01/19/10 01/22/17 documented as of this encounter
--- OUTSIDE RECORDS SUMMARY | 2023-12-04 16:35 | XMS_ITS | Encounter Summary ---
Author Organization [facility] [place] [address] Care Team Providers Care In Store Marketing Associate Name Role Phone Husam Rosas MD Primary Care Provider +1 [phone] Encounter Details Date Type Department Care Team (Late st Contact Info) Description 11/18/2011 Orders Only Infectious Disease at [facility] [place] [address] Drew Heaton MD [facility] [place] [address] Healthcare maintenance (Primary Dx) Social History Tobacco Use Types [...] of this encounter Progress Notes * Suzie Mars RN - 11/18/2011 11:42 AM EDT Subjective: Patient ID: Josiane Pacheco is a 56 y.o. female. HPI Review of Systems Objective: Physical Exam Assessment and Plan: No problem-specific visit notes found for this encounter. Josiane coming in on 11/30/2011 to see neurology; she would like a flu shot when she comes in . Will set her up with an injection visit only documented in this encounter Plan of Treatment Upcoming Encounters Date Type Department Care Team (Late st Contact Info) Description 03/06/2024 1:30 PM EST [place] [address] Satya Wills MD [facility] [place] [address] documented as of this encounter Visit Diagnoses Diagnosis Healthcare maintenance- Primary Routine general medical examination at a health care facility documented in this encounter Care Teams In Store Marketing Associate Relationship Specialty Start Date End Date Husam Rosas MD [address] [facility] [place] [address] PCP - General 01/19/10 01/22/17 documented as of this encounter
--- OUTSIDE RECORDS SUMMARY | 2023-12-04 16:35 | XMS_ITS | Encounter Summary ---
Author Organization [facility] Address [facility] [place] [address] Care Team Providers Care Silk Spreader Name Role Phone Husam Rosas MD Primary Care Provider [phone] [phone] Reason for Visit * Reason Comments Medication Refill Encounter Details Date Type Department Care Team (Late Contact Info) Description 06/20/2012 [place] [phone] Satya Wills MD [facility] [place] [address] Seizures (Primary Dx) Social History Tobacco Use Types [...] 1:30 PM EST Office [place] [phone] Satya Wills MD [facility] [place] [address] documented as of this encounter Visit Diagnoses Diagnosis Seizures- Primary Other convulsions documented in this encounter Care Teams Silk Spreader Relationship Specialty Start Date End Date Husam Rosas MD [address] [place] [address] PCP - General 01/19/10 01/22/17 documented as of this encounter
--- OUTSIDE RECORDS SUMMARY | 2023-12-04 16:35 | XMS_ITS | Encounter Summary ---
Author Organization [facility] [place] [address] Care Team Providers Care Interior Plant Caretaker Name Role Phone Husam Rosas MD Primary Care Provider [phone] -[phone] Reason for Visit * Reason Comments Medication Refill Encounter Details Date Type Department Care Team (Late Contact Info) Description 12/26/2011 [place] [address] Satya Wills MD [facility] [place] [address] Social History Tobacco Use Types Packs/Day Years [...] 1:30 PM EST [place] [address] Satya Wills MD [facility] [place] [address] documented as of this encounter Visit Diagnoses Not on filedocumented in this encounter Care Teams Interior Plant Caretaker Relationship Specialty Start Date End Date Husam Rosas MD [address] [place] [address] PCP - General 01/19/10 01/22/17 documented as of this encounter
--- OUTSIDE RECORDS SUMMARY | 2023-12-04 16:35 | XMS_ITS | Encounter Summary ---
Author Organization [facility] [place] [address] Care Team Providers Care Grape Pruner Name Role Phone Husam Rosas MD Primary Care Provider +1 -[phone] Encounter Details Date Type Department Care Team (Late Contact Info) Description 03/31/2011 Abstract [place] [address] Satya Wills MD [facility] [place] [address] Social History Tobacco Use Types Packs/Day Years [...] PM EST Office [place] [address] Satya Wills MD [facility] [place] [address] documented as of this encounter Visit Diagnoses Not on filedocumented in this encounter Care Teams Grape Pruner Relationship Specialty Start Date End Date Husam Rosas MD [address] [place] [address] PCP - General 01/19/10 01/22/17 documented as of this encounter
--- OUTSIDE RECORDS SUMMARY | 2023-12-04 16:35 | XMS_ITS | Encounter Summary ---
Author Organization [facility] Address [facility] [place] [address] Care Team Providers Care Audio Visual Project Manager Name Role Phone Husam Rosas MD Primary Care Provider [phone] -[phone] Reason for Visit * Reason Comments Medication Refill Encounter Details Date Type Department Care Team (Late Contact Info) Description 04/23/2012 [place] [address] Satya Wills MD [facility] [place] [address] Social History Tobacco Use Types Packs/Day Years [...] 1:30 PM EST [place] [address] Satya Wills MD [facility] [place] [address] documented as of this encounter Visit Diagnoses Not on filedocumented in this encounter Care Teams Audio Visual Project Manager Relationship Specialty Start Date End Date Husam Rosas MD [address] [place] [address] PCP - General 01/19/10 01/22/17 documented as of this encounter
--- OUTSIDE RECORDS SUMMARY | 2023-12-04 16:35 | XMS_ITS | Encounter Summary ---
Author Organization [facility] Address [facility] [place] [address] Care Team Providers Care Feed Mill Manager Name Role Phone Husam Rosas MD Primary Care Provider +1 -[phone] Reason for Visit * Reason Comments Medication Refill Encounter Details Date Type Department Care Team (Late st Contact Info) Description 03/08/2011 [place] [address] Drew Heaton MD [facility] [place] [address] HIV (human immunodeficiency virus infection) (Primary Dx) [...] Telephone Encounter - Suzie Mars RN - 03/08/2011 3:32 PM EST Request for new viread prescription documented in this encounter Plan of Treatment Upcoming Encounters Date Type Department Care Team (Late st Contact Info) Description 03/06/2024 1:30 PM EST [place] [address] Satya Wills MD [facility] [place] [address] documented as of this encounter Visit Diagnoses Diagnosis HIV (human immunodeficiency virus infection)- Primary Asymptomatic human immunodeficiency virus (HIV) infection status documented in this encounter Care Teams Feed Mill Manager Relationship Specialty Start Date End Date Husam Rosas MD [address] [facility] [address] PCP - General 01/19/10 01/22/17 documented as of this encounter
--- OUTSIDE RECORDS SUMMARY | 2023-12-04 16:35 | XMS_ITS | Encounter Summary ---
Author Organization [facility] Address [facility] [place] [address] Care Team Providers Care Ripsaw Matcher Name Role Phone Husam Rosas MD Primary Care Provider [phone] [phone] Reason for Visit * Reason Comments Medication Refill Encounter Details Date Type Department Care Team (Late Contact Info) Description 10/26/2011 Ref[place] [address] Drew Heaton MD [facility] DR [place] [address] Human immunodeficiency virus (HIV) disease (Primary Dx) [...] 1:30 PM EST [place] [address] Satya Wills MD [facility] [place] [address] documented as of this encounter Visit Diagnoses Diagnosis Human immunodeficiency virus (HIV) disease- Primary Human immunodeficiency virus [HIV] disease documented in this encounter Care Teams Ripsaw Matcher Relationship Specialty Start Date End Date Husam Rosas MD [address] [place] [address] PCP - General 01/19/10 01/22/17 documented as of this encounter
--- OUTSIDE RECORDS SUMMARY | 2023-12-04 16:35 | XMS_ITS | Encounter Summary ---
Author Organization [facility] [place] [address] Care Team Providers Care Publishing Director Name Role Phone Husam Rosas MD Primary Care Provider +1 -[phone] Reason for Visit * Reason Onset Date Comments Medication Refill 09/27/2011 Encounter Details Date Type Department Care Team (Late Contact Info) Description 09/27/2011 [place] [address] Jayla Angel APRN [facility] [place] [address] Social History Tobacco Use Types Packs/Day Years [...] 1:30 PM [place] [address] Satya Wills MD [facility] [place] [address] documented as of this encounter Visit Diagnoses Not on filedocumented in this encounter Care Teams Publishing Director Relationship Specialty Start Date End Date Husam Rosas MD [address] [place] [address] PCP - General 01/19/10 01/22/17 documented as of this encounter
--- OUTSIDE RECORDS SUMMARY | 2023-12-04 16:35 | XMS_ITS | Encounter Summary ---
Author Organization [facility] [place] [address] Care Team Providers Care Lifestyle Coordinator Name Role Phone Husam Rosas MD Primary Care Provider [phone] [phone] Reason for Visit * Reason Onset Date Comments Medication Refill 08/17/2011 Encounter Details Date Type Department Care Team (Late st Contact Info) Description 08/17/2011 Telephone [place] [address] Drew Heaton MD [facility] [place] [address] Medication Refill Social History Tobacco Use Types [...] Telephone Encounter - Suzie Mars RN - 08/17/2011 10:59 AM EDT [facility] has been dispensing Norvir capsules instead of Norvir tablets as ordered. The pharmacy requests a new prescription documented in this encounter Plan of Treatment Upcoming Encounters Date Type Department Care Team (Late Contact Info) Description 03/06/2024 1:30 PM EST Office [place] [address] Satya Wills MD [facility] [place] [address] documented as of this encounter Visit Diagnoses Diagnosis HIV disease- Primary Human immunodeficiency virus [HIV] disease documented in this encounter Care Teams Lifestyle Coordinator Relationship Specialty Start Date End Date Husam Rosas MD [address] [place] [address] PCP - General 01/19/10 01/22/17 documented as of this encounter
--- OUTSIDE RECORDS SUMMARY | 2023-12-04 16:35 | XMS_ITS | Encounter Summary ---
Author Organization [facility] Address [facility] [place] [address] Care Team Providers Care Principal Cyber Engineer Name Role Phone Husam Rosas MD Primary Care Provider +1 [phone] Encounter Details Date Type Department Care Team (Late st Contact Info) Description 06/07/2012 Abstract [place] [address] Suzie Mars RN Social History Tobacco Use [...] EST [place] [address] Satya Wills MD [facility] [place] [address] documented as of this encounter Visit Diagnoses Not on filedocumented in this encounter Care Teams Principal Cyber Engineer Relationship Specialty Start Date End Date Husam Rosas MD [address] [place] [address] PCP - General 01/19/10 01/22/17 documented as of this encounter
--- OUTSIDE RECORDS SUMMARY | 2023-12-04 16:35 | XMS_ITS | Encounter Summary ---
Author Organization [facility] Address [facility] [place] [address] Care Team Providers Care Department Editor Name Role Phone Husam Rosas MD Primary Care Provider [phone] [phone] Reason for Visit * Reason Comments Medication Refill Encounter Details Date Type Department Care Team (Late Contact Info) Description 02/22/2012 Ref[place] [address] Drew Heaton MD [facility] [place] [address] HIV (human immunodeficiency virus infection) (Primary Dx) [...] Telephone Encounter - Suzie Mars RN - 02/22/2012 1:18 PM EST Request received to renew UICO,Incad Will send script to Clarissa Hodge in [facility] documented in this encounter Plan of Treatment Upcoming Encounters Date Type Department Care Team (Late Contact Info) Description 03/06/2024 1:30 PM EST [place] [address] Satya Wills MD [facility] [place] [address] documented as of this encounter Visit Diagnoses Diagnosis HIV (human immunodeficiency virus infection)- Primary Asymptomatic human immunodeficiency virus (HIV) infection status documented in this encounter Care Teams Department Editor Relationship Specialty Start Date End Date Hsuam Rosas MD [address] [place] [address] PCP - General 01/19/10 01/22/17 documented as of this encounter
--- OUTSIDE RECORDS SUMMARY | 2023-12-04 16:35 | XMS_ITS | Encounter Summary ---
Author Organization [facility] [place] [address] Care Team Providers Care Customer Service Operator Name Role Phone Husam Rosas MD Primary Care Provider +1 [phone] Reason for Visit * Reason Onset Date Comments Results 08/12/2011 Encounter Details Date Type Department Care Team (Late st Contact Info) Description 08/12/2011 Telephone Infectious Disease at [facility] [place] [phone] Esha Ren, RN Results Social History Tobacco Use Types Packs/Day Years [...] encounter Miscellaneous Notes * Telephone Encounter - Esha Ren, RN - 08/12/2011 1:55 PM EDT Telephone call Josiane Pacheco requesting lab results. We discussed her viral load and how it has gone down. I asked her why her viral load is better and she reports, it's probably because I'm taking my pills and have started exercising. She also reports that nausea and vomiting are part of the reasons that she hasn't been so adherent to her medications. I encouraged her to take her medications with a small snack. She reports that nausea and vomiting are related to headaches and she will consider starting a headache diary. Another reason that sheidentifies as a reason for poor adherence is that she forgets to take her refrigerated norvir capsules b/c she cannot keep them with the rest of her pills. She is being prescribed tablets but her pharmacy only distributes capsules. Josiane was also concerned about some fragile skin and also bumps on her skin. She admits that she hashad many serious sunburns in her earlier years and that she doesn't use sunscreen now. I encouragedher to speak with her PCP about possibly having a skin check (or else, if he would refer to dermatology). I also encouraged her to use sunscreen when outdoors. She also reports that her mood is down and she feels that she does not contribute to society. She denies suicidal ideations and that her reason for living is her 23 year old son with whom she has frequent telephone contact. I encouraged her to continue volunteering at [employer]. We discussed some positive outcomes that came about because of her and at the end of the conversation, she was more optimistic about her life. I encouraged her to continue working towards mental health counseling. Plan: 1) Improve adherence 2) Eat small snacks when taking medications 3) Headache diary 4) Sunscreen 5) Discuss with PCP about Skin Check or Dermatology consult 6) Mental health documented in this encounter Plan of Treatment Upcoming Encounters Date Type Department Care Team (Late st Contact Info) Description 03/06/2024 1:30 PM EST [place] [address] Satya Wills MD [facility] [place] [address] documented as of this encounter Visit Diagnoses Not on filedocumented in this encounter Care Teams Customer Service Operator Relationship Specialty Start Date End Date Husam Rosas MD [address] [place] [address] PCP - General 01/19/10 01/22/17 documented as of this encounter
--- OUTSIDE RECORDS SUMMARY | 2023-12-04 16:35 | XMS_ITS | Encounter Summary ---
Author Organization [facility] [place] [address] Care Team Providers Care College Dean Name Role Phone Husam Rosas MD Primary Care Provider +1 [phone] Encounter Details Date Type Department Care Team (Late Contact Info) Description 04/21/2011 [place] [address] Satya Wills MD [facility] [place] [address] Social History Tobacco Use Types Packs/Day Years [...] 1:30 PM EST [place] [address] Satya Wills MD [facility] [place] [address] documented as of this encounter Visit Diagnoses Not on filedocumented in this encounter Care Teams College Dean Relationship Specialty Start Date End Date Husam Rosas MD [address] [place] [address] PCP - General 01/19/10 01/22/17 documented as of this encounter
--- OUTSIDE RECORDS SUMMARY | 2023-12-04 16:35 | XMS_ITS | Encounter Summary ---
Author Organization [facility] [place] [address] Care Team Providers Care Alumni Relations Officer Name Role Phone Husam Rosas MD Primary Care Provider +1 [phone] Reason for Visit * Reason Onset Date Comments Medication Refill 04/06/2012 Encounter Details Date Type Department Care Team (Late st Contact Info) Description 04/06/2012 Refill [place] [phone] Jayla Angel APRN [facility] [place] [address] Social History Tobacco Use Types Packs/Day Years [...] Telephone Encounter - Josiane Blank LPN - 04/10/2012 10:32 AM EST 04/10/12 Follow up call: I called the pharmacy and left the klonopin script on the pharmacy message line at 10:33 am. * Telephone Encounter - Carrie Vides - 04/06/2012 12:31 PM EST Name of Med: Klonopin Strength of Pills: 1mg Dosing Directions: 1 tab in the AM and 2 tabs HS 30 or 90 Day: 30 Pharmacy: [id number] [place], [place] - [address] [place] [address] Last Appointment: 11/30/2011 Next Appointment: 05/30/2012 documented in this encounter Plan of Treatment Upcoming Encounters Date Type Department Care Team (Late st Contact Info) Description 03/06/2024 1:30 PM EST Office [place] [address] Satya Wills MD [facility] [place] [address] documented as of this encounter Visit Diagnoses Not on filedocumented in this encounter Care Teams Alumni Relations Officer Relationship Specialty Start Date End Date Husam Rosas MD [address] [place] [address] PCP - General 01/19/10 01/22/17 documented as of this encounter
--- OUTSIDE RECORDS SUMMARY | 2023-12-04 16:35 | XMS_ITS | Encounter Summary ---
Author Organization [facility] Address [facility] [place] [address] Care Team Providers Care Inventory Audit Clerk Name Role Phone Husam Rosas MD Primary Care Provider [phone] [phone] Reason for Visit * Reason Comments Medication Refill Encounter Details Date Type Department Care Team (Late st Contact Info) Description 03/28/2011 [place] [phone] Satya Wills MD [facility] [place] [address] Social History Tobacco Use Types Packs/Day Years [...] encounter Miscellaneous Notes * Telephone Encounter - Elodia Jaime LPN - 03/28/2011 12:09 PM EST Called into pharmacy Rx line. * Telephone Encounter - Elodia Jaime LPN - 03/28/2011 10:39 AM EST Last appointment: 10/01/10 Next scheduled appointment: 04/04/11 Medication Name: clonazepam 1 mg Dose: one am, 2 HS Date of Last Rx: 09/13/10 Amnt:90 # of Refills: 5 documented in this encounter Plan of Treatment Upcoming Encounters Date Type Department Care Team (Late st Contact Info) Description 03/06/2024 1:30 PM EST Office [place] [address] Satya Wills MD [facility] [place] [address] documented as of this encounter Visit Diagnoses Not on filedocumented in this encounter Care Teams Inventory Audit Clerk Relationship Specialty Start Date End Date Husam Rosas MD [address] [place] [address] PCP - General 01/19/10 01/22/17 documented as of this encounter
--- OUTSIDE RECORDS SUMMARY | 2023-12-04 16:35 | XMS_ITS | Encounter Summary ---
Author Organization [facility] Address [facility] [place] [address] Care Team Providers Care First Responder Name Role Phone Husam Rosas MD Primary Care Provider [phone] [phone] Reason for Visit * Reason Comments Medication Refill Encounter Details Date Type Department Care Team (Late Contact Info) Description 10/26/2011 [place] [address] Satya Wills MD [facility] [place] [address] Social History Tobacco Use Types Packs/Day Years [...] 1:30 PM EST Office [place] [address] Satya Wills MD [facility] [place] [address] documented as of this encounter Visit Diagnoses Not on filedocumented in this encounter Care Teams First Responder Relationship Specialty Start Date End Date Husam Rosas MD [address] [place] [address] PCP - General 01/19/10 01/22/17 documented as of this encounter
--- OUTSIDE RECORDS SUMMARY | 2023-12-04 16:35 | XMS_ITS | Encounter Summary ---
Author Organization [facility] Address [facility] [place] [address] Care Team Providers Care Flight Superintendent Name Role Phone Husam Rosas MD Primary Care Provider +1 [phone] Encounter Details Date Type Department Care Team (Late st Contact Info) Description 07/18/2011 Orders Only Infectious Disease at [facility] [place] [address] Drew Heaton MD [facility] [place] [address] HIV disease (Primary Dx) Social History Tobacco Use [...] Progress Notes * Suzie Mars RN - 07/18/2011 2:12 PM EDT Subjective: Patient ID: Josiane Pacheco is a 55 y.o. female. HPI Review of Systems Objective: Physical Exam Assessment and Plan: No problem-specific visit notes found for this encounter. TC to Clarissa Hodge in [facility] to check on refill history . Clarissa Hodge reports Josiane has not refilledritonavir since 11/11/2010 and no more refills on this prescription. A prescription with 11 refills written in December 2010, however, it was print instead of normal, and they evidently never received the script. Will send new script and ask Josiane to have HIV genotype at local facility prior to starting documented in this encounter Plan of Treatment Upcoming Encounters Date Type Department Care Team (Late st Contact Info) Description 03/06/2024 1:30 PM EST [place] [address] Satya Wills MD [facility] [place] [address] documented as of this encounter Results * HIV 1 Genotyping-[place] (07/26/2011 12:35 PM EDT) HIV-1 Genotype ? [place] ? Expected Test ? Result ??LO ??Units ??Values --------- HIV-1 Genotypic Drug ? INTERP ??Resistance, P Interpretation of following results: RESIST= Resistant SUSC= No evidence of resistance [place]= Possible resistance IE= Insufficient evidence ??Reverse Transcriptase ?Mutations No relevant mutations detected. ??Abacavir ? SUSC ??Didanosine ? SUSC ??Lamivudine/Emtr icitabine ? SUSC ??Stavudine ?SUSC ??Tenofovir ?SUSC ??Zidovudine ? SUSC ??Efavirenz ?SUSC ??Etravirine ? SUSC ??Nevirapine ? SUSC ??Protease Mutations No relevant mutations detected. ??Atazanavir ? SUSC ??Atazanavir with Ritonavir ?SUSC ??Darunavir with Ritonavir ? SUSC ??Fosamprenavir ?SUSC ??Fosamprenavir with Ritonavir ?? SUSC ??Indinavir ?SUSC ??Indinavir with Ritonavir ? SUSC ??Lopinavir with Ritonavir ? SUSC ??Nelfinavir ? SUSC ??Saquinavir with Ritonavir ?SUSC ??Tipranavir with Ritonavir ?SUSC ??Last viral load date ? 07/28/2011 ?(mm/dd/yyyy): ??Was last HIV-1 viral load >1, ??Yes ?000? Testing was performed by RT-PCR and DNA sequencing method ([employer] HIV-1 Genotyping Kit; [employer] and results were based on bonded strand operator's most recent FDA-approved interpretive guidelines. Results obtained by different assay methods should not be used interchangeably. Test Performed by: [place] [id number] Medical Claims Manager: Greg Frazier III, M.D. CERNER MILLENNIUM Blood specimen (specimen) 07/26/2011 12:35 PM EDT 07/29/2011 3:49 PM EDT Narrative Resulting Agency Comment Spec In Lab Drew Heaton MD LAB SEND OUT ORDERAB LES CHIARA CLIFFORD documented in this encounter Visit Diagnoses Diagnosis HIV disease- Primary Human immunodeficiency virus [HIV] disease documented in this encounter Care Teams Flight Superintendent Relationship Specialty Start Date End Date Husam Rosas MD [address] [place] [address] PCP - General 01/19/10 01/22/17 documented as of this encounter
--- OUTSIDE RECORDS SUMMARY | 2023-12-04 16:35 | XMS_ITS | Encounter Summary ---
Author Organization [facility] [place] [address] Care Team Providers Care Principal Data Architect Name Role Phone Husam Rosas MD Primary Care Provider [phone] [phone] Encounter Details Date Type Department Care Team (Late st Contact Info) Description 11/30/2011 2:45 PM EDT [place] [phone] Favian Brian APRN [facility] [place] [address] Epilepsy (Primary Dx) Discharge Disposition: Home Social [...] Sign Reading Time Taken Comments Blood Pressure 147/74 11/30/2011 2:45 PM EDT Pulse 76 11/30/2011 2:45 PM EDT Temperature - - Respiratory Rate - - Oxygen Saturation - - Inhaled Oxygen Concentration - - Weight 105 kg (231 lb 8 oz) 11/30/2011 2:45 PM E DT Height 168.9 cm (5' 6.5) 11/30/2011 2:45 PM EDT Body Mass Index 36.81 11/30/2011 2:45 PM EDT documented in this encounter Patient Instructions * Patient Instructions* Favian Brian APRN - 11/30/2011 3:57 PM EDT Increase Lamictal to 1.5 tablets in AM and 1 tablet in PM Call if seizures are no better Get your flu shot Last labs were improving. documented in this encounter Progress Notes * Favian Brian APRN - 11/30/2011 3:51 PM EDT Chief Complaint: Epilepsy; HIV infection History or Present Illness: The patient is seen in followup today. She is about the same. She has about three seizures since last being seen, mostly nocturnal. She has not had major accidents or injuries. She continues to have chronic daily headaches with sharp shooting pains on the right. They last all day and occur nearly every day. She denies photo/phonosensitivity but does have nausea and throbbing pain several times per week. She feels that meloxicam helps for her other pain more than her headaches but she is not interested in trying anything else at this point.. She continues to be depressed and does not want to see a counselor nor take anything for it. She has some friends that she talks to who are supportive. Seizure Control: QEpilepsy 11/30/2011 Last seizure was: Within past month Were seizures disabling? No Social Factors: Social Factors 11/30/2011 Considering No Review of Systems: Review of systems 11/30/2011 2. headache Often 3. rash Sometimes 4. unsteadiness Sometimes 5. upset stomach, nausea, vomiting Often 7. weight loss or gain Sometimes 10. dizziness Sometimes 12. trouble sleeping Often 13. difficulties concentrating Sometimes 14. feelings of aggression Rarely 16. thoughts about ending your life Rarely 17. palpitations or chest pains Sometimes 19. breathing problems Sometimes Outpatient prescriptions marked as taking for the 11/30/11 encounter (Office Visit) with FAVIAN BRIAN Medication Sig Dispense Refill ??? lamoTRIgine (LAMICTAL) 200 mg tablet Take [...] tabs at HS. 90 tablet 5 ??? tenofovir (VIREAD) 300 mg tablet Take 1 tablet by mouth daily. 30 tablet 5 ??? Ritonavir (RITONAVIR) 100 mg Tab Take 100 mg by mouth daily. Please dispense tablets 30 tablet 11 ??? VIMPAT 200 mg Tab take 1 tablet by mouth twice a day 60 tablet 5 ??? meloxicam (MOBIC) 7.5 mg tablet Take [...] by mouth 3 times daily as needed. Physical Examination: Blood pressure 147/74, pulse 76, height 168.9 cm (5' 6.5), weight 105.008 kg(231 lb 8 oz). Awake and alert. EOMs intact. No tremor noted. Her gait was stable. Laboratory Studies: She had a viral load done in late September which showed signs of improvement. Shestill has not gotten her medication levels done. Impression: The situation is stable. 1. She is probably still having complex partial and secondary generalized seizures. Will increase lamictal to 300mg in AM and 200mg in PM. She is agreeable to do that. 2. Headaches are still not doing well. Lyrica for prevention has been minimally helpful.She can continue to use hydroxyzine and compazine as needed. 3. Other medical problems include irritable bowel syndrome, hemorrhoids, and the chronic HIV infection. Those appear to be stable. 4. Depression- She seems to be doing a little better and has some good support systems in place. She does not want to do anything else. She will return for follow up with Dr. Wills in 6 months. documented in this encounter Plan of Treatment Upcoming Encounters Date Type Department Care Team (Late st Contact Info) Description 03/06/2024 1:30 PM EST [place] [address] Satya Wills MD [facility] [place] [address] documented as of this encounter Visit Diagnoses Diagnosis Epilepsy- Primary Unspecified epilepsy without mention of intractable epilepsy documented in this encounter Care Teams Principal Data Architect Relationship Specialty Start Date End Date Husam Rosas MD [address] [place] [address] PCP - General 01/19/10 01/22/17 documented as of this encounter
--- OUTSIDE RECORDS SUMMARY | 2023-12-04 16:35 | XMS_ITS | Encounter Summary ---
Author Organization [facility] Address [facility] [place] [address] Care Team Providers Care Campus Coordinator Name Role Phone Husam Rosas MD Primary Care Provider [phone] [phone] Encounter Details Date Type Department Care Team (Latest Contact Info) Description 07/26/2011 12:28 PM EDT - 07/26/2011 11:59 PM EDT Hospital [place] [phone] Drew Heaton MD [facility] [place] [address] HIV disease Discharge Disposition: Home Social History Tobacco Use [...] Sig Dispensed Refills Start Date End Date Ritonavir (RITONAVIR) 100 mg TabIndications:HIV disease Take 100 mg by mouth daily. 30 tablet 11 07/18/2011 08/17/2011 VIMPAT 200 mg TabIndications:Epilepsy take 1 tablet by mouth twice a day 60 tablet 5 07/08/2011 12/26/2011 lamoTRIgine (LAMICTAL) 200 mg tabletIndications:Epilepsy TAKE 1 TABLET BY MOUTH TWICE A DAY 60 tablet 6 06/21/2011 11/30/2011 meloxicam (MOBIC) 7.5 mg tablet Take 1 tablet by mouth daily. 30 tablet 12 04/25/2011 04/29/2012 EPZICOM 600-300 mg per tablet take 1 tablet by mouth once daily 30 tablet 5 04/21/2011 10/26/2011 REYATAZ 300 mg capsule take 1 capsule by mouth once daily 30 capsule 5 04/21/2011 10/26/2011 albuterol (PROVENTIL HFA;VENTOLIN HFA) 90 mcg/Actuation inhaler Inhale 2 puffs into the lungs every 4 hours as needed. Use with spacer 01/14/2020 polyethylene glycol (MIRALAX) 17 gram/dose powder Take 17 g by mouth as needed. 01/14/2020 clonAZEpam (KLONOPIN) 1 mg tablet Take by mouth. Take one tab am, take 2 tabs at HS. 90 tablet 5 03/28/2011 09/27/2011 pregabalin (LYRICA) 50 mg capsule Take by mouth. Take one pill twice a day 60 tablet 5 03/28/2011 10/07/2011 hydrOXYzine (VISTARIL) 25 mg capsule take 1 capsule by mouth twice a day 60 capsule 6 03/22/2011 10/26/2011 VIREAD 300 mg tabletIndications:HIV (human immunodeficiency virus infection) take 1 tablet by mouth once daily 30 tablet 5 03/08/2011 08/29/2011 sulfamethoxazole-trimethop rim (BACTRIM) 400-80 mg per tabletIndications:HIV disease Take 1 tablet by mouth daily. 30 tablet 11 10/01/2010 10/28/2011 hyoscyamine (LEVSIN) 0.125 mg tablet Take 0.125 mg by mouth 3 times daily as needed. 10/05/2012 Multivitamins with Iron TabIndications:HIV disease Take 1 tablet by mouth daily. 30 tablet 11 06/04/2010 01/14/2020 prochlorperazine (COMPAZINE) 10 mg tablet Take 10 mg by mouth 3 times daily as needed. 06/01/2010 03/28/2014 documented as of this encounter Plan of Treatment Upcoming Encounters Date Type Department Care Team (Late st Contact Info) Description 03/06/2024 1:30 PM EST Office [place] [address] Satya Wills MD [facility] [place] [address] documented as of this encounter Procedures Procedure Name Priority Date/Time Associated Diagnosis Comments HIV QUANT Routine 07/26/2011 12:35 PM EDT HIV 1 GENOTYPING Routine 07/26/2011 12:3 5 PM EDT HIV disease documented in this encounter Results * HIV QUANT (07/26/2011 12:35 PM EDT) Pathologist [facility] HIV Viral Load Result (Qualitative) * RESULT: 1518 copies/mL * INDICATION FOR STUDY: HIV-1 Infection [...] Robert Fuentes, Ph.D. Director, Molecular Pathology [facility] Comment: [VERIFIED DATE]07.28.11 Verified By:Brooke Lenz (Electronic Signature) Blood specimen (specimen) 07/26/2011 12:35 PM EDT 07/26/2011 3:55 PM EDT Narrative Resulting Agency Comment Spec In Lab Drew Heaton MD HEMATOLOGY ORDERABLE S [facility] * HIV 1 Genotyping-[place] (07/26/2011 12:35 PM EDT) Pathologist [facility] HIV-1 Genotype ? HI ? Expected Test ? Result ??LO ??Units ??Values --------- HIV-1 Genotypic Drug ? INTERP ??Resistance, P Interpretation of following results: RESIST= Resistant SUSC= No evidence of resistance OR= Possible resistance IE= Insufficient evidence ??Reverse Transcriptase [...] performed by RT-PCR and DNA sequencing method ([employer] HIV-1 Genotyping Kit; [employer] and results were based on carpet inspector's most recent FDA-approved interpretive guidelines. Results obtained by different assay methods should not be used interchangeably. Test Performed by: [place] [address] Customer Field Representative: Greg Frazier III, M.D. CHIARA SEBASTIANKIAH Blood specimen (specimen) 07/26/2011 12:35 PM EDT 07/29/2011 3:49 PM EDT Narrative Resulting Agency Comment Spec In Lab Drew Heaton MD LAB SEND OUT ORDERAB LES Performing Organization Address City/State/[facility] Co de Phone Number CHIARA CLIFFORD documented in this encounter Visit Diagnoses Diagnosis HIV disease Human immunodeficiency virus [HIV] disease documented in this encounter Care Teams Campus Coordinator Relationship Specialty Start Date End Date Husam Rosas MD [address] [place] [address] PCP - General 01/19/10 01/22/17 documented as of this encounter
--- OUTSIDE RECORDS SUMMARY | 2023-12-04 16:35 | XMS_ITS | Encounter Summary ---
Author Organization [facility] Address [facility] [place] [address] Care Team Providers Care Cd Mixer Helper Name Role Phone Husam Rosas MD Primary Care Provider [phone] [phone] Encounter Details Date Type Department Care Team (Late st Contact Info) Description 03/30/2011 12:10 PM EST - 03/30/2011 11:59 PM EST Hospital Encounter Ultrasound at [facility] [place] [phone] Social History Tobacco Use Types Packs/Day Years [...] Sig Dispensed Refills Start Date End Date clonAZEpam (KLONOPIN) 1 mg tablet Take by [...] once daily 30 tablet 5 03/08/2011 08/29/2011 VIMPAT 200 mg Tab take 1 tablet by mouth twice a day 60 tablet 5 01/01/2011 07/08/2011 Ritonavir (RITONAVIR) 100 mg TabIndications:HIV disease Take 100 mg by mouth daily. 30 tablet 11 12/31/2010 07/18/2011 lamoTRIgine (LAMICTAL) 200 mg tabletIndications:Epilepsy take 1 tablet by mouth twice a day 60 tablet 6 11/30/2010 06/21/2011 atazanavir (REYATAZ) 300 mg capsule Take 1 capsule by mouth daily. 30 capsule 5 11/02/2010 04/21/2011 abacavir-lamiVUDine (EPZICOM) 600-300 mg per tablet Take 1 tablet by mouth daily. 30 tablet 5 11/02/2010 04/21/2011 naproxen (NAPROSYN) 375 mg tablet Take by mouth. Take one pill twice a day as needed 60 tablet 11 10/01/2010 04/25/2011 sulfamethoxazole-trimethop rim (BACTRIM) 400-80 mg per tabletIndications:HIV [...] 1:30 PM EST [place] [address] Staya Wills MD [facility] [place] [address] documented as of this encounter Visit Diagnoses Not on filedocumented in this encounter Care Teams Cd Mixer Helper Relationship Specialty Start Date End Date Husam Rosas MD [address] [place] [address] PCP - General 01/19/10 01/22/17 documented as of this encounter
--- OUTSIDE RECORDS SUMMARY | 2023-12-04 16:35 | XMS_ITS | Encounter Summary ---
Author Organization [facility] [place] [address] Care Team Providers Care Director Of Partner Marketing Name Role Phone Husam Rosas MD Primary Care Provider [phone] Encounter Details Date Type Department Care Team (Late st Contact Info) Description 05/30/2012 1:45 PM EDT [place] [id number] Jayla Angel APRN [facility] [place] [address] Rash (Primary Dx); Epilepsy Discharge Disposition: Home Social History Tobacco Use [...] Sign Reading Time Taken Comments Blood Pressure 136/95 05/30/2012 1:15 PM EDT Pulse 75 05/30/2012 1:15 PM EDT Temperature - - Respiratory Rate - - Oxygen Saturation - - Inhaled Oxygen Concentration - - Weight 99.8 kg (220 lb) 05/30/2012 1:15 PM EDT Height 168.9 cm (5' 6.5) 05/30/2012 1:15 PM EDT Body Mass Index 34.98 05/30/2012 1:15 PM EDT documented in this encounter Patient Instructions * Patient Instructions* Jayla Angel APRN - 05/30/2012 2:30 PM EDT Reduce lyrica to 1 pill per day for 2 weeks then stop Ask Dr. Heaton about ketoconozole cream for the rash If headaches continue, we will try a prevention medication documented in this encounter Progress Notes * Jayla Angel APRN - 05/30/2012 2:35 PM EDT Chief Complaint: Epilepsy; HIV infection History or Present Illness: The patient is seen in followup today. She is about the same. She has had about two definite seizures since last being seen but these have not been nocturnal. She had another possible one because she found she was missing some time in a conversation. She has not had major accidents or injuries. She continues to have chronic daily headaches with sharp shooting pains on the right. The sharp pains last a minute or so but the regular headaches can last all day and occur nearly every day. She denies photo/phonosensitivity but does have nausea and throbbing pain several times per week. She has developed a rash on her face that is reddened and burning. No itching nor maculopapular qualities but more reddened skin. Her PCP gave her flagyl cream which she reports is nothelping. Outpatient Prescriptions Marked as Taking for the 05/30/12 encounter (Follow-Up) with Jayla Angel APRN Medication Sig Dispense Refill ??? Tjnwwvbk-Akwiyxnz-Ygu Subsal 250-500-262.4 mg Cmpk Take 0.75 % by mouth 2 times daily. ??? meloxicam (MOBIC) 7.5 mg tablet take 1 tablet by mouth once daily 30 tablet 11 ??? LYRICA 50 mg capsule take 1 capsule by mouth twice a day 60 capsule 5 ??? hydrOXYzine (VISTARIL) 25 mg capsule take 1 capsule by mouth twice a day 60 capsule 5 ??? abacavir-lamiVUDine (EPZICOM) 600-300 mg per tablet Take 1 tablet by mouth daily. 30 tablet 5 ??? atazanavir (REYATAZ) 300 mg capsule Take 1 capsule by mouth daily. 30 capsule 5 ? ? clonAZEpam (KLONOPIN) 1 mg tablet Take 1 tab in am & 2 tabs in pm on daily basis 90 tablet 5 ??? VIREAD 300 mg tablet take 1 tablet by mouth once daily 30 tablet 5 ??? VIMPAT 200 mg Tab take 1 tablet by mouth twice a day 60 tablet 5 ??? lamoTRIgine (LAMICTAL) 200 mg tablet Take by mouth. Take 1.5 in AM and 1 in PM 60 tablet 6 ??? sulfamethoxazole-trimethoprim (BACTRIM) 400-80 mg per tablet Take 1 tablet by mouth daily. 30 tablet 11 ??? Ritonavir (RITONAVIR) 100 mg Tab Take [...] mouth 3 times daily as needed. Physical Exam Blood pressure 136/95, pulse 75, height 168.9 cm (5' 6.5), weight 99.791 kg (220 lb). Awake and alert. EOMs intact. No tremor noted. She has a significant facial rash which is particularly worse around the eyes. It is not itchy but more painful with burning sensation. Her gait is steady. Mood is stable. Impression/Plan: The situation is stable. 1. She is still having complex partial seizures. She seems to have done a little better since we increased the lamictal. She does not feel that lyrica has helped at all and feels it has caused pedal edema. Will reduce to 50mg daily for 2 weeks then stop and then we can perhaps try zonegran. 2. Headaches are still not doing well. She can continue to use hydroxyzine and compazine as needed.Perhaps zonegran could be helpful for prevention. 3. Other medical problems include irritable bowel syndrome, hemorrhoids, and the chronic HIV infection. Those appear to be stable. 4. Depression- She seems to be doing a little better and has some good support systems in place. She does not want to do anything else. She will return for follow up with Dr. Wills in 3-4 months. documented in this encounter Plan of Treatment Upcoming Encounters Date Type Department Care Team (Late st Contact Info) Description 03/06/2024 1:30 PM EST Office [place] [address] Satya Wills MD [facility] [place] [address] documented as of this encounter Visit Diagnoses Diagnosis Rash- Primary Rash and other nonspecific skin eruption Epilepsy Unspecified epilepsy without mention of intractable epilepsy documented in this encounter Care Teams Director Of Partner Marketing Relationship Specialty Start Date End Date Husam Rosas MD [address] [place] [address] PCP - General 01/19/10 01/22/17 documented as of this encounter
--- OUTSIDE RECORDS SUMMARY | 2023-12-04 16:35 | XMS_ITS | Encounter Summary ---
Author Organization [facility] [place] [address] Care Team Providers Care End Packer Name Role Phone Husam Rosas MD Primary Care Provider [phone] Reason for Visit * Reason Onset Date Comments Medication Refill 10/28/2011 Encounter Details Date Type Department Care Team (Late Contact Info) Description 10/28/2011 Telephone Infectious [place] [phone] Drew Heaton MD [facility] [place] [address] Medication Refill Social History Tobacco Use Types [...] Telephone Encounter - Suzie Mars RN - 10/28/2011 1:06 PM EDT Josiane requests renewals for Epzicom, reyataz and bactrim documented in this encounter Plan of Treatment Upcoming Encounters Date Type Department Care Team (Late st Contact Info) Description 03/06/2024 1:30 PM EST Office [place] [phone] Satya Wills MD [facility] [place] [address] documented as of this encounter Visit Diagnoses Diagnosis Human immunodeficiency virus (HIV) disease Human immunodeficiency virus [HIV] disease HIV disease Human immunodeficiency virus [HIV] disease documented in this encounter Care Teams End Packer Relationship Specialty Start Date End Date Husam Rosas MD [address] [facility] [address] PCP - General 01/19/10 01/22/17 documented as of this encounter
--- OUTSIDE RECORDS SUMMARY | 2023-12-04 16:35 | XMS_ITS | Encounter Summary ---
Author Organization [facility] Address [facility] [place] [address] Care Team Providers Care Glove Cuffer Name Role Phone Husam Rosas MD Primary Care Provider [phone] Reason for Visit * Reason Comments Follow-up Encounter Details Date Type Department Care Team (Latest Contact Info) Description 06/15/2011 1:00 PM EDT Follow-[place] [address] Drew Heaton MD [facility] [place] [address] HIV disease (Primary Dx); HIV (human immunodeficiency virus infection); Transaminitis Discharge Disposition: Home Social History Tobacco [...] Sign Reading Time Taken Comments Blood Pressure 132/94 06/15/2011 12:54 PM EDT Pulse 88 06/15/2011 12:54 PM EDT Temperature 36.7 ??C (98.1 ??F) 06/15/2011 12:54 PM E DT Respiratory Rate 24 06/15/2011 12:54 PM EDT Oxygen Saturation 95% 06/15/2011 12:54 PM EDT Inhaled Oxygen Concentration - - Weight 98 kg (216 lb) 06/15/2011 12:54 PM EDT Height 168.9 cm (5' 6.5) 06/15/2011 12:54 PM ED T Body Mass Index 34.34 06/15/2011 12:54 PM EDT documented in this encounter Progress Notes * Drew Heaton MD - 06/15/2011 1:33 PM EDT This is a scheduled appointment for an HIV infected woman last seen by me in clinic five months ago, since when she has done well save for ongoing seizures (though still relatively less frequent thanusual). The recurrent cutaneous lesions present at the last appointment have resolved. Blood pressure 132/94, pulse 88, temperature 36.7 ??C (98.1 ??F), resp. rate 24, height 168.9 cm (5' 6.5), weight 97.977 kg (216 lb), SpO2 95.00%. Overweight woman in no apparent distress. NC/AT. [...] IgG: RPR Titers: 12/31/2010 03/05/2008 10/31/2003 PPD: CXR: Rx status: Cervical pap: 08/11/2010 Normal 05/27/2009 Normal 02/29/2008 Normal Vag colpo: Last pelvic: [employer] exam: 05/27/2009 Anal pap: Rectal colpo: CD4: 06/15/2011 12/31/2010 318 11 10/01/2010 189 10 Chris: 06/15/2011 VL: 06/15/2011 12/31/2010 332 10/01/2010 1,548 Max VL: 04/30/2003 28,700 Resist assays: 10/01/2010 no resistance 03/17/2010 no resistance 12/16/2009 V90I Weights: 12/31/2010 97.977 12/16/2009 91.17 05/27/2009 83.91 Lipids: Total chol: 01/16/2009 207 LDL: 01/16/2009 115 HDL: 01/16/2009 68 Tri01/16/2009 121 Vaccines Influenza: 12/16/2009 Pneumovax: 09/16/2009 08/17/2001 Td: Tdap: 10/03/2008 HepA: HepB 20: 12/25/2002 HepB 40: HPV: Twinrix: Assessment and Plan: 1. HIV. Was doing well on current regimen after addition of tenofovir, but with persistent elevatedviral load, unremarkable genotype in February, and h/o not taking RTV. When last seen she had again been on the correct regimen for 6 months and had a viral load down to 332, so will recheck viral load and additional safety labs today. Phenotype 10/01/10 was again without resistance. Labs for safety and efficacy every 3-4 months (including today) as long as all goes well. 2. Adherence. She states that she has been 100% adherent since last seen, and I reinforced the importance of remaining so. 3. Chemoprophylaxis. Started on Bactrim in February 2010 given CD4<200 - will stop if again today>200. 4. Immunoprophylaxis. Up to date. 5. Risk reduction. Not currently sexually active - she has previously said that she is always safe. 6. Seizure disorder/headaches. She is under the care of Drs. Wills. 7. Psychiatric. Her mood is decent. She is again seeing a therapist. 8. Abnormal pap smear. Pap smear 09/06 was normal. 9. Obesity. Not addressed today. 10. Hyperlipidemia. Not addressed today. 11. Smoking. Had stopped smoking in February, but is now smoking a small number of cigarrettes.I again strongly encouraged her to again try stopping. 12. Abdominal pain/anorexia. Resolved. 13. Rectal bleeding. Seen Dr. Hermosillo. Colonoscopy unremarkable. No recurrence. 14. General health care. Mammogram 05/06 normal - repeat today. Colonoscopy 03/09 revealed multiple polyps so will repeat in three years (2013). 15. Skin lesions. Resolved. 30 minutes whip-wo-gvua time spent with the patient, 20 minutes of which was in discussion and counseling about management of HIV. Follow-up in 3-4 months. documented in this encounter Plan of Treatment Upcoming Encounters Date Type Department Care Team (Late st Contact Info) Description 03/06/2024 1:30 PM EST Office [place] [address] Satya Wills MD [facility] [place] [address] documented as of this encounter Procedures Procedure Name Priority Date/Time Associated Diagnosis Comments HIV QUANT Routine 06/15/2011 1:55 PM EDT HIV disease QUANTIFERON-TB GOLD Routine 06/15/2011 1:55 PM EDT HIV (human immunodeficiency virus infection) CD4 Routine 06/15/2011 1:55 PM EDT HIV disease DIFFERENTIAL, AUTOMATED Routine 06/15/2011 1:55 PM EDT CBC (WITH DIFF) Routine 06/15/2011 1:55 PM EDT HIV disease HEPATIC FUNCTION PANEL Routine 06/15/2011 1:55 PM EDT HIV disease Transaminitis HIV-1 RNA, QUANTITATIVE, PCR Routine 06/15/2011 1:46 PM EDT HIV disease documented in this encounter Results * DIFFERENTIAL, AUTOMATED (06/15/2011 1:55 PM EDT) Neutrophil % 50.8 34.0 - 71.0 % [facility] Neutrophil Absolute 2.78 1.50 - 6.30 x10(3)/mcL [facility] Lymph % 42.2 19.0 - 53.0 % [facility] Lymphocytes Abs 2.3 1.0 - 3.6 x10(3)/mcL [facility] Monocyte % 5.9 4.0 - 13.0 % [facility] Monocyte Abs 0.3 0.2 - 1.0 x10(3)/mcL [facility] Eos % 0.5 0.0 - 7.0 % [facility] Eosinophils Abs 0.0 0.0 - 0.5 x10(3)/mcL [facility] Basophil % 0.4 0.0 - 2.0 % [facility] Baso Absolute 0.0 0.0 - 0.2 x10(3)/[facility] Gran % 0.20 0.00 - 0.66 % [facility] Comment: Immature granulocytes(IG's)percentage and absolute count will include metamyelocytes, myelocytes, and promyelocytes. Blood smears from CBCs yielding IG's will be scanned manually for concordance. If this scan disagrees with the automated IG or if promyelocytes are noted, a manual differential will be performed. Immature Gran Absolute 0.01 0.00 - 0.05 x10(3)/[facility] Blood specimen (specimen) 06/15/2011 1:55 PM EDT 06/15/2011 2:13 PM EDT Drew Heaton MD HEMATOLOGY ORDERABLE S [facility] * HIV QUANT (06/15/2011 1:55 PM EDT) Pathologist [facility] HIV Viral Load Result (Qualitative) * RESULT: [id number] copies/mL * INDICATION FOR STUDY: HIV-1 Infection [...] Administration. Robert Fuentes, Ph.D. Director, Molecular Pathology [facility] Comment: [VERIFIED DATE]06.16.11 Verified By:Brooke Lenz (Electronic Signature) Blood specimen (specimen) 06/15/2011 1:55 PM EDT 06/16/2011 8:06 AM EDT Narrative Resulting Agency Comment Spec In Lab Drew Heaton MD HEMATOLOGY ORDERABLE S Performing Organization Address City/[facility] Co de Phone Number [facility] * (ABNORMAL) Hepatic Function Panel (06/15/2011 1:55 PM EDT) Protein, Total 7.7 6.4 - 8.3 gm/dL [facility] Albumin 4.3 3.2 - 5.2 gm/dL [facility] Aspartate Aminotransferase 94(H) 0 - 30 unit/L [facility] Alanine Aminotransferase 111(H) 0 - 30 unit/L [facility] Alkaline Phosphatase 66 40 - 104 unit/L [facility] Bilirubin, Total 2.3(H) 0.2 - 1.3 mg/dL [facility] Bilirubin, Direct 0.5(H) 0.0 - 0.3 mg/dL [facility] Blood specimen (specimen) 06/15/2011 1:55 PM EDT 06/15/2011 2:13 PM EDT Narrative Resulting Agency Comment Spec In Lab Drew Heaton MD CHEMISTRY ORDERABLES Performing Organization Address [facility] Co de Phone Number [facility] * (ABNORMAL) CD4 (06/15/2011 1:55 PM EDT) CD3% 93(H) 55 - 82 % [facility] CD3 ABS 2156 731 - 2438 /mcl [facility] CD 4% 9(L) 35 - 61 % [facility] CD 4ABS 219(L) 503 - 1736 /mcl [facility] Comment: [...] CD4, CD8, CD19, CD16+56) Blood specimen (specimen) 06/15/2011 1:55 PM EDT 06/15/2011 2:13 PM EDT Narrative Resulting Agency Comment Spec In Lab Drew Heaton MD HEMATOLOGY ORDERABLE S Performing Organization Address City/State/[facility] Co de Phone Number [facility] * (ABNORMAL) CBC (with Diff) (06/15/2011 1:55 PM EDT) White Blood Cell 5.5 4.0 - 10.0 x10(3)/mc L [facility] Red Blood Cell 4.56 3.93 - 5.22 x10(6)/mc L [facility] Hemoglobin 15.8(H) 11.2 - 15.7 gm/dL [facility] Hematocrit 43.0 34.0 - 45.0 % [facility] Mean Cell Volume 94.3(H) 79.0 - 94.0 fL [facility] Mean Cell Hemoglobin 34.6(H) 26.6 - 32.2 pg [facility] Mean Cell Hemoglobin Concentration 36.7(H) 32.0 - 36.5 gm/dL [facility] Platelet 127(L) 145 - 370 x10(3)/mc L [facility] RDW Standard Deviation 41.1 35.0 - 46.0 fL [facility]ENNI[facility] RDW coefficient of variation 12.3 10.9 - 14.4 % [facility] Mean Platelet Volume 10.0 9.0 - 12.0 fL [facility] Blood specimen (specimen) 06/15/2011 1:55 PM EDT 06/15/2011 2:13 PM EDT Narrative Resulting Agency Comment Spec In Lab Drew Heaton MD HEMATOLOGY ORDERABLE S [facility] * QuantiFERON-TB Gold (06/15/2011 1:55 PM EDT) Quantiferon-TB Gold Negative Negative [facility] Comment: M. tuberculosis (TB) infection NOT likely A negative QuantiFERON-TB Gold IT result does not preclude the possibility of M. tuberculosis infection or tuberculosis disease: false negative results can be due to stage of infection (e.g., specimen obtained prior to the development of cellular immune response), co-morbid conditions which affect immune function, or other individual immunological factors. The performance of the QuantiFERON-TB Gold IT test has not been extensively evaluated with specimens from the following groups of individuals: 1. Individuals who have impaired or altered immune function such as those who have HIV infection or AIDS, those who have transplantation managed with immunosuppressive treatment or others who receive immunosuppressive drugs (e.g., corticosteroids, methotrexate, azathioprine, cancer chemotherapy), and those who have other clinical conditions: diabetes, silicosis, chronic renal failure, hematological disorders (e.g., leukemia and lymphomas), and other specific malignancies (e.g., carcinoma of the head or neck and lung). 2. Individuals younger than age 17 years. 3. women. As of 07-06-09 the QuantiFERON-TB Gold IT assay will be performed in the [facility] Reference [facility]. Please call , press 4; with questions. Blood specimen (specimen) 06/15/2011 1:55 PM EDT 06/16/2011 8:00 AM EDT Narrative Resulting Agency Comment Spec In Lab Drew Heaton MD CHEMISTRY ORDERABLES Performing Organization Address City/[facility] Co de Phone Number [facility] documented in this encounter Visit Diagnoses Diagnosis HIV disease- Primary Human immunodeficiency virus [HIV] disease Transaminitis Nonspecific elevation of levels of transaminase or lactic acid dehydrogenase (LDH) documented in this encounter Care Teams Glove Cuffer Relationship Specialty Start Date End Date Husam Rosas MD [address] [place] [address] PCP - General 01/19/10 01/22/17 documented as of this encounter
--- OUTSIDE RECORDS SUMMARY | 2023-12-04 16:35 | XMS_ITS | Encounter Summary ---
Author Organization [facility] [place] [address] Care Team Providers Care Medical Sociologist Name Role Phone Husam Rosas MD Primary Care Provider [phone] [phone] Reason for Visit * Reason Comments Follow-up Encounter Details Date Type Department Care Team (Latest Contact Info) Description 05/30/2012 2:45 PM EDT Follow-Up Infectious Disease at [facility] [place] [address] Drew Heaton MD [facility] [place] [address] Human immunodeficiency virus (HIV) disease (Primary Dx) [...] Sign Reading Time Taken Comments Blood Pressure 131/98 05/30/2012 2:51 PM EDT Pulse 73 05/30/2012 2:51 PM EDT Temperature - - Respiratory Rate 16 05/30/2012 2:51 PM EDT Oxygen Saturation - - Inhaled Oxygen Concentration - - Weight - - Height - - Body Mass Index - - documented in this encounter Progress Notes * Drew Heaton MD - 05/30/2012 3:22 PM EDT This is a scheduled appointment for an HIV infected woman last seen by me in clinic three months ago, since when she has done well save for ongoing seizures (though still relatively less frequent than usual) and worsening redness on face (for which she was started on metronidazole one week ago, without benefit to date). Blood pressure 131/98, pulse 73, resp. rate 16. Overweight woman in no apparent distress. NC/AT. EOMI. Skin without rash save for diffuse erythema on face, sparing circumocular. Throat benign. Heart RRR no m/r/g. Lungs CTA. Abdomen benign. Neuro. grossly nonfocal. Baseline Data Serologies/Screening: Monitoring HIV DX: CDQ : 12/31/2010 Family Planning: Routine nutritional eval: Ophtho exam: Dental eval: 11/11/2010 Adherence score: Hep A IgG: Hep B [...] Normal 05/27/2009 Normal Vag colpo: Last pelvic: 3Rd Pressman exam: 05/27/2009 Anal pap: Rectal colpo: CD4: 05/30/2012 03/02/2012 199 10 10/26/2011 249 12 Chris: 05/30/2012 VL: 05/30/2012 03/02/2012 14,340 10/26/2011 627 Max VL: 04/30/2003 28,700 Resist assays: 07/26/2011 no resistance mutations 10/01/2010 no resistance 03/17/2010 no resistance Weights: 12/31/2010 97.977 12/16/2009 91.17 [...] and then 14,000 in February of this year. Phenotype 10/01/10 was again withoutresistance. Labs for safety and efficacy every 3-4 months (including today) as long as all goes well. I have been very perplexed by this and have been unable to sort out adherence issues - if PCR again elevated we will pursue this further with her pharmacies. 2. Adherence. She states that she has been 100% adherent since last seen, and I reinforced the importance of remaining so. 3. Chemoprophylaxis. Started on Bactrim in February 2010 given CD4<200. 4. Immunoprophylaxis. Up to date. 5. Risk reduction. Last sexually active 2 weeks ago - she has previously said that [...] and we explored her ambivalnce. 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 Not addressed today. 12. Abdominal pain/anorexia. Resolved. 13. Rectal bleeding. Seen Dr. Hermosillo. Colonoscopy unremarkable. No recurrence. 14. General health care. Mammogram February 2012. Colonoscopy 04/28/10 revealed multiple polyps so will repeat in three years (2013). 15. Facial rash. Unclear etiology - she is scheduled to see Dermatology. 16. Transaminitis. Significantly worse today, so will need w/u starting with repeat hepatitis virusserologies with next labs. Quite possibly secondary to her many meds, but given that it is worse wedo need to pursue this. 30 minutes ecbi-pj-ohns time spent with the patient, 20 minutes of which was in discussion and counseling about management of HIV. Follow-up in 3-4 months. documented in this encounter Plan of Treatment Upcoming Encounters Date Type Department Care Team (Late st Contact Info) Description 03/06/2024 1:30 PM EST Office [place] [address] Satya Wills MD [facility] [place] [address] documented as of this encounter Procedures Procedure Name Priority Date/Time Associated Diagnosis Comments HIV QUANT Routine 05/30/2012 3:45 PM EDT Human immunodeficiency virus (HIV) disease CD4 Routine 05/30/2012 3:45 PM EDT Human immunodeficiency virus (HIV) disease DIFFERENTIAL, AUTOMATED Routine 05/30/2012 3:45 PM EDT HIV-1 RNA, QUANTITATIVE, PCR Routine 05/30/2012 3:45 PM EDT Human immunodeficiency virus (HIV) disease CBC (WITH DIFF) Routine 05/30/2012 3:45 PM EDT Human immunodeficiency virus (HIV) disease COMPREHENSIVE METABOLIC PANEL Routine 05/30/2012 3:45 PM EDT Human immunodeficiency virus (HIV) disease documented in this encounter Results * Differential, Automated (05/30/2012 3:45 PM EDT) Neutrophil % 44.6 34.0 - 71.0 % CERNER MILLENNIUM Neutrophil Absolute 2.63 1.50 - 6.30 x10(3)/mcL CERNER MILLENNIUM Lymph % 46.9 19.0 - 53.0 % CERNER MILLENNIUM Lymphocytes Abs 2.8 1.0 - 3.6 x10(3)/mcL CERNER MILLENNIUM Monocyte % 7.5 4.0 - 13.0 % CERNER MILLENNIUM Monocyte [...] Absolute 0.01 0.00 - 0.05 x10(3)/mcL CHIARA ARAYAENNIUM Blood specimen (specimen) 05/30/2012 3:45 PM EDT 05/30/2012 3:58 PM EDT Drew Heaton MD HEMATOLOGY ORDERABLE S CHIARA CLIFFORD * HIV Quant (05/30/2012 3:45 PM EDT) HIV Viral Load Result (Qualitative) * RESULT: 62944 copies/mL * INDICATION FOR STUDY: HIV-1 Infection [...] Pathology [facility] Comment: [VERIFIED DATE]06.01.12 Verified By:Constance Hightower (Electronic Signature) Blood specimen (specimen) 05/30/2012 3:45 PM EDT 05/30/2012 3:58 PM EDT Narrative Resulting Agency Comment Spec In Lab Drew Heaton MD [facility] * (ABNORMAL) Comprehensive metabolic panel (non-fasting) (05/30/2012 3:45 PM EDT) Glucose 97 60 - 199 mg/dL [facility] Comment:Diabetes: >=200 mg/d L plus symptoms Blood Urea Nitrogen 13 8 - 18 mg/dL CERNER MILLENNIUM Creatinine 0.95 0.70 - 1.20 mg/dL CERNER MILLENNIUM Comment: Please note that the pediatric reference intervals supplied above were not validated at [facility]. Results from pediatric patients should be interpreted in conjunction to the patient's age, height and muscle mass. Sodium 141 135 - 145 mmol/L CERNER MILLENNIUM Potassium 4.3 3.5 - 5.0 mmol/L CERNER MILLENNIUM Comment: Please note: ??Patients with WBC >100,000 may have falsely elevated Potassium levels. ??For accurate Potassium quantification in these patients send serum separator tube (gold top) for subsequent determinations. ??Contact the Clinical Chemistry Laboratory if there are any questions. Chloride 100 98 - 107 mmol/L CERNER MILLENNIUM Carbon Dioxide 30 22 - 31 mmol/L CERNER MILLENNIUM Anion Gap 11 5 - 15 mmol/L CERNER MILLENNIUM Calcium 9.9 8.5 - 10.5 mg/dL CERNER MILLENNIUM Protein, Total 8.2 6.4 - 8.3 gm/dL CERNER MILLENNIUM Albumin 4.4 3.2 - 5.2 gm/dL CERNER MILLENNIUM Aspartate Aminotransferase 160(H) 0 - 30 unit/L CERNER MILLENNIUM Alanine Aminotransferase 171(H) 0 - 30 unit/L CERNER MILLENNIUM Alkaline Phosphatase 62 40 - 104 unit/L CERNER MILLENNIUM Bilirubin, Total 2.8(H) 0.2 - 1.3 mg/dL CERNER MILLENNIUM Bilirubin, Direct 0.6(H) 0.0 - 0.3 mg/dL CERNER MILLENNIUM Est Glomerular Filtration Rate >60 >=60 CERNER MILLENNIUM Comment: The National Kidney Disease Education Program (NKDEP) has recommended all laboratories report estimated GFR (eGFR) along with plasma creatinine measurements to assist you with recognition of early kidney disease. Caveats: ??Plasma creatinine should be at steady-state (unchanged within the past week). For patients multiply eGFR by 1.2. The MDRD equation was developed using patients between the ages of 18 and 70 years. ?? The MDRD equation has not been validated for patients < 18 years of age and should not be used to assess renal function in the pediatric population. ??The MDRD eGFR equation will also overestimate the true GFR of patients above the age of 70. ??This overestimation is variable but increases with age. At present, NKDEP does NOT recommend using the MDRD equation for drug dosing purposes and pharmacists should continue to use their current dosing methods. In addition, numerical eGFR values greater than 60 ml/min/1.73 square meters should be treated as > 60, and not an exact number due to greater inaccuracies at these higher values. Per NKDEP, they classify normal renal function as any GFR >60ml/min/1.73 square meters; chronic kidney disease when GFR <60, and renal failure when GFR <15. ??This calculation may not be valid for patients with atypical muscle mass (very lean or obese), acute renal failure, and in patients with diabetic kidney disease. References: http://nkdep.nih.gov/resources/NKDEP_Suggestn4Labs_0606_508.pdf http://www.kidney.org/professionals/kls/pdf/faq_gfr.pdf Era K, Lavinia NA, Howard AK, Chris TS, Albert AD, Porter GURU. Relative performance of the MDRD and CKD-EPI equations for estimating glomerular filtration rate among patients with varied clinical presentations. Clin J Am Soc Nephrol;6:1963-72. Blood specimen (specimen) 05/30/2012 3:45 PM EDT 05/30/2012 3:58 PM EDT Narrative Resulting Agency Comment Spec In Lab Drew Heaton MD CHEMISTRY ORDERABLES Performing Organization Address [facility] de Phone Number CERJANIYA ARAYAENNIUM * (ABNORMAL) CD4 (05/30/2012 3:45 PM EDT) CD3% 94(H) 55 - 82 % CERNER MILLENNIUM CD3 ABS 2602(H) 731 - 2438 /mcl CERNER MILLENNIUM CD 4% 10(L) 35 - 61 % CERNER MILLENNIUM CD 4ABS 264(L) 503 - 1736 /mcl CERNER MILLENNIUM Comment: [...] CD4, CD8, CD19, CD16+56) Blood specimen (specimen) 05/30/2012 3:45 PM EDT 05/30/2012 3:58 PM EDT Narrative Resulting Agency Comment Spec In Lab Drew Heaton MD HEMATOLOGY ORDERABLE S Performing Organization Address [facility] de Phone Number CERJANIYA ARAYAENNIUM * (ABNORMAL) CBC (with Diff) (05/30/2012 3:45 PM EDT) White Blood Cell 5.9 4.0 - 10.0 x10(3)/mc L CERNER MILLENNIUM Red Blood Cell 4.61 3.93 - 5.22 x10(6)/mc L CERNER MILLENNIUM Hemoglobin 16.8(H) 11.2 - 15.7 gm/dL CERNER MILLENNIUM Hematocrit 47.8(H) 34.0 - 45.0 % CERNER MILLENNIUM Mean Cell Volume 103.7(H) 79.0 - 94.0 fL CERNER MILLENNIUM Mean Cell Hemoglobin 36.4(H) 26.6 - 32.2 pg CERNER MILLENNIUM Mean Cell Hemoglobin Concentration 35.1 32.0 - 36.5 gm/dL CERNER MILLENNIUM Platelet 122(L) 145 - 370 x10(3)/mc L CERNER MILLENNIUM RDW Standard Deviation 48.1(H) 35.0 - 46.0 fL CERNER MILLENNIUM RDW coefficient of variation 12.8 10.9 - 14.4 % CERNER MILLENNIUM Mean Platelet Volume 10.3 9.0 - 12.0 fL CERNER MILLENNIUM Blood specimen (specimen) 05/30/2012 3:45 PM EDT 05/30/2012 3:58 PM EDT Narrative Resulting Agency Comment Spec In Lab Drew Heaton MD HEMATOLOGY ORDERABLE S CHIARA CLIFFORD documented in this encounter Visit Diagnoses Diagnosis Human immunodeficiency virus (HIV) disease- Primary Human immunodeficiency virus [HIV] disease documented in this encounter Care Teams Medical Sociologist Relationship Specialty Start Date End Date Husam Rosas MD [address] [facility] [place] [address] PCP - General 01/19/10 01/22/17 documented as of this encounter
--- OUTSIDE RECORDS SUMMARY | 2023-12-04 16:35 | XMS_ITS | Encounter Summary ---
Author Organization [facility] Address [facility] [place] [address] Care Team Providers Care Candy Roller Name Role Phone Husam Rosas MD Primary Care Provider [phone] [phone] Reason for Visit * Reason Onset Date Comments Medication Refill 03/28/2011 Encounter Details Date Type Department Care Team (Late st Contact Info) Description 03/28/2011 [place] [address] Satya Wills MD [facility] [place] [address] Social History Tobacco Use Types Packs/Day Years [...] Telephone Encounter - Elodia Jaime LPN - 03/29/2011 9:43 AM EST Called into pharmacy Rx line * Telephone Encounter - Elodia Jaime LPN - 03/28/2011 3:09 PM EST Last appointment: 10/01/10 Next scheduled appointment: 04/04/11 Medication Name: Lyrica Dose:50 mg BID Date of Last Rx: 10/01/10 Amnt:60 # of Refills: 5 documented in this encounter Plan of Treatment Upcoming Encounters Date Type Department Care Team (Late st Contact Info) Description 03/06/2024 1:30 PM EST Office [place] [address] Satya Wills MD [facility] [place] [address] documented as of this encounter Visit Diagnoses Not on filedocumented in this encounter Care Teams Candy Roller Relationship Specialty Start Date End Date Husam Rosas MD [address] [place] [address] PCP - General 01/19/10 01/22/17 documented as of this encounter
--- OUTSIDE RECORDS SUMMARY | 2023-12-04 16:35 | XMS_ITS | Encounter Summary ---
Author Organization [facility] [place] [address] Care Team Providers Care Senior Bi Architect Name Role Phone Husam Rosas MD Primary Care Provider [phone] [phone] Encounter Details Date Type Department Care Team (Late st Contact Info) Description 07/26/2011 1:20 PM EDT [place] [phone] Favian Brian APRN [facility] [place] [address] Epilepsy (Primary Dx); High risk medication use Discharge Disposition: Home Social History Tobacco Use [...] Sign Reading Time Taken Comments Blood Pressure 130/89 07/26/2011 1:00 PM EDT Pulse 75 07/26/2011 1:00 PM EDT Temperature - - Respiratory Rate - - Oxygen Saturation - - Inhaled Oxygen Concentration - - Weight 98 kg (216 lb) 07/26/2011 1:00 PM EDT Height 168.9 cm (5' 6.5) 07/26/2011 1:00 PM EDT Body Mass Index 34.34 07/26/2011 1:00 PM EDT documented in this encounter Progress Notes * Favian Brian APRN - 07/26/2011 2:18 PM EDT Chief Complaint: Epilepsy; HIV infection History or Present Illness: The patient is seen in followup today. She is about the same. She has about one to two seizures per month, mostly nocturnal. She has not had major accidents or injuries. She continues to have chronic daily headaches with sharp shooting pains on the right. They last all day and occur nearly every day. She denies photo/phonosensitivity but does have nausea and throbbing pain several times per week. She does not take anything other than the daily meloxicam. She is rather depressed over the way that she feels on a daily basis. She admits that she has suicidal thoughts and said she would do herself in if she had a gun but reports that she does not have one and doesn't think she would be able to do it to herself. She does not want any medication for depression and does not see anyone for counseling and I strongly encouraged her to do so. Physical Examination: Blood pressure 130/89, pulse 75, height 168.9 cm (5' 6.5), weight 97.977 kg (216 lb). Skin with some raised red areas on the right forearm. It is itchy at times but she reportsthat she has had this for quite some time. Awake and alert. There was minimal external deviation of the right eye as previously noted. It seems to be getting better. Her gait was stable. Outpatient prescriptions marked as taking for the 07/26/11 encounter (Follow-Up) with FAVIAN BRIAN Medication Sig Dispense Refill ??? Ritonavir (RITONAVIR) 100 mg Tab Take 100 mg by mouth daily. 30 tablet 11 ??? VIMPAT 200 mg Tab take 1 tablet by mouth twice a day 60 tablet 5 ??? lamoTRIgine (LAMICTAL) 200 mg tablet TAKE 1 TABLET BY MOUTH TWICE A DAY 60 tablet 6 ??? meloxicam (MOBIC) 7.5 mg tablet Take 1 tablet by mouth daily. 30 tablet 12 ??? EPZICOM 600-300 mg per tablet take 1 tablet by mouth once daily 30 tablet 5 ??? REYATAZ 300 mg capsule take 1 capsule by mouth once daily 30 capsule 5 ??? albuterol (PROVENTIL HFA;VENTOLIN HFA) 90 mcg/Actuation inhaler Inhale 2 puffs into the lungs every 4 hours as needed. Use with spacer ??? polyethylene glycol (MIRALAX) 17 gram/dose powder Take 17 g by mouth 2 times daily. ??? clonAZEpam (KLONOPIN) 1 mg tablet Take by mouth. Take one tab am, take 2 tabs at HS. 90 tablet 5 ??? pregabalin (LYRICA) 50 mg capsule Take by mouth. Take one pill twice a day 60 tablet 5 ??? hydrOXYzine (VISTARIL) 25 mg capsule take 1 capsule by mouth twice a day 60 capsule 6 ??? VIREAD 300 mg tablet take 1 tablet by mouth once daily 30 tablet 5 ??? sulfamethoxazole-trimethoprim (BACTRIM) 400-80 mg per tablet Take 1 tablet by mouth daily. 30 tablet 11 ??? hyoscyamine (LEVSIN) 0.125 mg tablet Take 0.125 mg by mouth 3 times daily as needed. ??? Multivitamins with Iron Tab Take 1 tablet by mouth daily. 30 tablet 11 ??? prochlorperazine (COMPAZINE) 10 mg tablet Take 10 mg by mouth 3 times daily as needed. Laboratory Studies: She had a viral load done prior to this visit. I am giving her a requisition tohave labs done at a local lab including AED levels, metabolic panel and CBC. Impression: The situation is stable. 1. She is probably still having complex partial and secondary generalized seizures. 2. Headaches are still not doing well. Lyrica 50mg bid for prevention has been minimally helpful.She can continue to use hydroxyzine and compazine as needed. I will talk to Dr. Wills to see if there is any other preventative medications that could be used in combination with her other meds. 3. Other medical problems include irritable bowel syndrome, hemorrhoids, and the chronic HIV infection. Those appear to be stable. 4. Depression- I am concerned about her depression. She contracted with me not to harm herself. Shemay be willing to see someone for counseling. I urged her to do so. She does not want another medications for depression. She will return for follow up with Dr. Wills in 3 months. documented in this encounter Miscellaneous Notes * Miscellaneous - Esau, Horticultural Nursery Assistant - 07/28/2011 8:48 PM EDT documented in this encounter Plan of Treatment Upcoming Encounters Date Type Department Care Team (Late st Contact Info) Description 03/06/2024 1:30 PM EST [place] [address] Satya Wills MD [facility] [place] [address] documented as of this encounter Visit Diagnoses Diagnosis Epilepsy- Primary Unspecified epilepsy without mention of intractable epilepsy High risk medication use Encounter for long-term (current) use of other medications documented in this encounter Care Teams Senior Bi Architect Relationship Specialty Start Date End Date Husam Rosas MD [address] [place] [address] PCP - General 01/19/10 01/22/17 documented as of this encounter
--- OUTSIDE RECORDS SUMMARY | 2023-12-04 16:35 | XMS_ITS | Encounter Summary ---
Author Organization [facility] [place] [address] Care Team Providers Care Housekeeping/Laundry Supervisor Name Role Phone Husam Rosas MD Primary Care Provider [phone] [phone] Reason for Visit * Reason Comments Medication Refill Encounter Details Date Type Department Care Team (Late Contact Info) Description 06/21/2011 [place] [address] Satya Wills MD [facility] [place] [address] Epilepsy Social History Tobacco Use Types Packs/Day Years [...] 1:30 PM EST [place] [address] Satya Wills MD [facility] [place] [address] documented as of this encounter Visit Diagnoses Diagnosis Epilepsy Unspecified epilepsy without mention of intractable epilepsy documented in this encounter Care Teams Housekeeping/Laundry Supervisor Relationship Specialty Start Date End Date Husam Rosas MD [address] [place] [address] PCP - General 01/19/10 01/22/17 documented as of this encounter
--- OUTSIDE RECORDS SUMMARY | 2023-12-04 16:35 | XMS_ITS | Encounter Summary ---
Author Organization [facility] [place] [address] Care Team Providers Care Medical Insurance Claims Processor Name Role Phone Husam Rosas MD Primary Care Provider [phone] [phone] Reason for Visit * Reason Comments Medication Refill Encounter Details Date Type Department Care Team (Late Contact Info) Description 07/08/2011 [place] [address] Satya Wills MD [facility] [place] [address] Epilepsy Social History Tobacco Use Types Packs/Day [...] 1:30 PM EST [place] [address] Satya Wills MD [facility] [place] [address] documented as of this encounter Visit Diagnoses Diagnosis Epilepsy Unspecified epilepsy without mention of intractable epilepsy documented in this encounter Care Teams Medical Insurance Claims Processor Relationship Specialty Start Date End Date Husam Rosas MD [address] [place] [address] PCP - General 01/19/10 01/22/17 documented as of this encounter
--- OUTSIDE RECORDS SUMMARY | 2023-12-04 16:35 | XMS_ITS | Encounter Summary ---
Author Organization [facility] [place] [address] Care Team Providers Care Feather Shaper Name Role Phone Husam Rosas MD Primary Care Provider [phone] [phone] Reason for Visit * Reason Comments Medication Refill Encounter Details Date Type Department Care Team (Late st Contact Info) Description 04/23/2012 [place] [phone] Jayla Angel APRN [facility] [place] [address] Social History Tobacco Use Types Packs/Day Years [...] Telephone Encounter - Elodia Jaime LPN - 04/23/2012 2:30 PM EST Last appointment: 11/30/11 Next scheduled appointment: 05/31/11 Medication Name: vistaril 25 mg Dose: one bid Date of Last Rx: 10/26/11 Amnt: 60 # of Refills: 5 documented in this encounter Plan of Treatment Upcoming Encounters Date Type Department Care Team (Late st Contact Info) Description 03/06/2024 1:30 PM EST [place] [address] Satya Wills MD [facility] [place] [address] documented as of this encounter Visit Diagnoses Not on filedocumented in this encounter Care Teams Feather Shaper Relationship Specialty Start Date End Date Husam Rosas MD [address] [place] [address] PCP - General 01/19/10 01/22/17 documented as of this encounter
--- OUTSIDE RECORDS SUMMARY | 2023-12-04 16:35 | XMS_ITS | Encounter Summary ---
Author Organization [facility] [place] [address] Care Team Providers Care Aircraft Servicer Name Role Phone Husam Rosas MD Primary Care Provider +1 [phone] Encounter Details Date Type Department Care Team (Late st Contact Info) Description 07/15/2011 Telephone Infectious Disease at [facility] [place] [phone] Suzie Mars RN Social History Tobacco Use [...] Telephone Encounter - Suzie Mars RN - 07/15/2011 1:53 PM EDT TC to Josiane to discuss most recent labs. VL 19,378 (from 332 on 12/31/2010); Josiane swears she is taking her medications without fail and without error; she has a neighbor who checks in with her daily about taking meds. Josiane does acknowledge she is depressed and has thought of suicide; she states she would not do anything to harm herself because life insurance policy would not pay if cause of is d/t suicide.She also would not want her son to experience the loss of another parent. I'm not doing anyone a big service by being alive; Josiane does not have a plan for suicide and she state she is safe- son and insurance policy prevent her from harming herself. .Also contributing to Josiane's depression is that her son is drinking heavily, but denies he has a problem Josiane is no longer in therapy, mainly because her 82 year old mother advised her not to share all that personal information with a stranger. 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 I asked Josiane if her depression might be interfering with her ability to take meds and she vehemently denied this Josiane is drinking - more than I should; when asked to quantify that, she said she had one beer this week.; in the past she has had much more than that; no longer attending AA meetings because 3 ofher ex-boyfriends attend all the local AA meetings and she doesn't want to run into them. A&P: very concerned about Josiane's mental health; she is working to get back into counseling and has been trying to find a new counselor (with the help of Cristine from [facility]) Reason for increase in VL not clear documented in this encounter Plan of Treatment Upcoming Encounters Date Type Department Care Team (Late st Contact Info) Description 03/06/2024 1:30 PM EST Office [place] [address] Satya Wills MD [facility] [place] [address] documented as of this encounter Visit Diagnoses Not on filedocumented in this encounter Care Teams Aircraft Servicer Relationship Specialty Start Date End Date Husam Rosas MD [address] [place] [address] PCP - General 01/19/10 01/22/17 documented as of this encounter
--- OUTSIDE RECORDS SUMMARY | 2023-12-04 16:35 | XMS_ITS | Encounter Summary ---
Author Organization [facility] Address [facility] [place] [address] Care Team Providers Care Rough Carpenter Name Role Phone Husam Rosas MD Primary Care Provider +1 [phone] Reason for Visit * Reason Comments Seizures Encounter Details Date Type Department Care Team (Late st Contact Info) Description 04/25/2011 9:45 AM EST [place] [phone] Satya Wills MD [facility] [place] [address] Epilepsy (Primary Dx) Discharge Disposition: Home Social [...] Sign Reading Time Taken Comments Blood Pressure 150/90 04/25/2011 9:25 AM EST Pulse 74 04/25/2011 9:25 AM EST Temperature - - Respiratory Rate - - Oxygen Saturation - - Inhaled Oxygen Concentration - - Weight 102.1 kg (225 lb) 04/25/2011 9:25 AM EST reported Height 168.9 cm (5' 6.5) 04/25/2011 9:25 AM EST reported Body Mass Index 35.77 04/25/2011 9:25 AM EST documented in this encounter Patient Instructions * Patient Instructions* Satya Wills MD - 04/25/2011 11:07 AM EST I think you are doing reasonably well. Seizures seems table. Please continue the same medications. For headaches, please stop the Naproxen and try Mobic (meloxicam) one pill daily. You can take on hydroxyzine pill with the meloxicam and one more hydroxyzine later in the day for headache. I will see you back in 3 months. documented in this encounter Progress Notes * Satya Wills MD - 04/25/2011 10:56 AM EST Chief Complaint: Epilepsy. History or Present Illness: The patient is seen in followup today. She is about the same. She has about one Seizure/ months, mostly nocturnal. She has not had major accidents or injuries. She continues to have daily chronic headaches with daily sharp shooting pains on the right, and nausea about once a wek Physical Examination: BP 150/90 Pulse 74 Ht 168.9 cm (5' 6.5) Wt 102.059 kg (225 lb) BMI 35.77 kg/m2 LMP 11/26/2010 Head, eyes, ears, nose, and throat were normal, lungs are clear. There was minimal external deviation of the right eye as previously noted. It seems to be getting better. Cranial nerves were otherwise unremarkable. Strength was normal. Coordination iwa mildly impaired. Reflexes were brisk. Sensation was normal. Her gait was stable. Medications: Current outpatient prescriptions Medication Sig Dispense Refill ??? EPZICOM 600-300 mg per tablet take [...] twice a day 60 tablet 5 ??? Ritonavir (RITONAVIR) 100 mg Tab Take 100 mg by mouth daily. 30 tablet 11 ??? lamoTRIgine (LAMICTAL) 200 mg tablet take 1 tablet by mouth twice a day 60 tablet 6 ??? sulfamethoxazole-trimethoprim (BACTRIM) 400-80 mg per tablet Take 1 tablet by mouth daily. 30 tablet 11 ? hyoscyamine (LEVSIN) 0.125 mg tablet Take 0.125 mg by mouth 3 times daily as needed. ??? Multivitamins with Iron Tab Take 1 tablet by mouth daily. 30 tablet 11 ??? prochlorperazine (COMPAZINE) 10 mg tablet Take 10 mg by mouth 3 times daily as needed. ??? meloxicam (MOBIC) 7.5 mg tablet Take 1 tablet by mouth daily. 30 tablet 12 ??? lacosamide (VIMPAT) 200 mg Tab Take 1 tablet by mouth 2 times daily. Laboratory Studies: am not checking any today. Impression: The situation is stable. She is probably still having complex partial and secondary generalized seizures. I think we have done all we can at the moment with regard to medical management. I am inclined to make no change. As new drugs become available, we can consider trying those. As noted earlier, we have failed on 2 occasions in spite of extensive inpatient video recording to capture any seizures since she had surgery. There is some doubt in my mind as to whether all the events that she is now having are epileptic, although her son's description was very convincing. 2. Headaches are still not doing well. Keeping her on Lyrica 50mg bid for prevention has been somewhat helpful. I changed her from Naproxen to Meloxicam to see if it works any better. She can continue to use hydroxyzine and compazine as needed. 3. Other medical problems include irritable bowel syndrome, hemorrhoids, and the chronic HIV infection. Those appear to be stable. Thank you for this consultation. I will see her back in 3 months. Satya Wills MD cc: ROSA SALMON MD INFECTIOUS DISEASE HUSAM ROSAS MD [facility] [address] [place] [address] documented in this encounter Plan of Treatment Upcoming Encounters Date Type Department Care Team (Late st Contact Info) Description 03/06/2024 1:30 PM EST Office [place] [address] Satya Wills MD [facility] [place] [address] documented as of this encounter Visit Diagnoses Diagnosis Epilepsy- Primary Unspecified epilepsy without mention of intractable epilepsy documented in this encounter Care Teams Rough Carpenter Relationship Specialty Start Date End Date Husam Rosas MD [address] [place] [address] PCP - General 01/19/10 01/22/17 documented as of this encounter
--- OUTSIDE RECORDS SUMMARY | 2023-12-04 16:35 | XMS_ITS | Encounter Summary ---
Author Organization [facility] Address [facility] [place] [address] Care Team Providers Care Mosaic Layer Name Role Phone Husam Rosas MD Primary Care Provider [phone] [phone] Reason for Visit * Reason Comments Follow-up f/u u/s Encounter Details Date Type Department Care Team (Late st Contact Info) Description 03/30/2011 2:00 PM EST Follow-Up Obstetrics [place] [phone] CLINIC, Licha Yeager APRN [facility] OBSTETRICS [place] [address] Follow-up exam (Primary Dx) Discharge Disposition: Home Social History [...] Sign Reading Time Taken Comments Blood Pressure 130/78 03/30/2011 1:59 PM EST Pulse - - Temperature - - Respiratory Rate - - Oxygen Saturation - - Inhaled Oxygen Concentration - - Weight 102.8 kg (226 lb 11.2 oz) 03/30/2011 1:59 PM EST Height 168.9 cm (5' 6.5) 03/30/2011 1:59 PM EST Body Mass Index 36.04 03/30/2011 1:59 PM EST documented in this encounter Progress Notes * Licha Rodriguez APRN - 03/30/2011 2:25 PM EST Josiane is here to go over her TVUS report. It was initially ordered because she was having menses as often as 2 wks apart. That was last year. Now her cycles are infrequent, the last being in November. This pattern is more consistent with perimenopause. She had a visit with Ms. Glasgow who re scheduled the scan for her. The results were reviewed with her , the uterus has a thin stripe of 2mm and the ovaries are normal. She continues to experience hot flashes and some depression. She has gained some weight and would like to lose it. She is having some difficulty sleeping r/t th hot flashes. Plan: Normal scan- reassured Due for exam and pap in 07/2011 Will try to increase exercise, likes to swim, finds this relaxing. This may also be help her sleep better. documented in this encounter Plan of Treatment Upcoming Encounters Date Type Department Care Team (Late st Contact Info) Description 03/06/2024 1:30 PM EST [place] [address] Satya Wills MD [facility] [place] [address] documented as of this encounter Visit Diagnoses Diagnosis Follow-up exam- Primary Unspecified follow-up examination documented in this encounter Care Teams Mosaic Layer Relationship Specialty Start Date End Date Husam Rosas MD [address] [place] [address] PCP - General 01/19/10 01/22/17 documented as of this encounter
--- OUTSIDE RECORDS SUMMARY | 2023-12-04 16:35 | XMS_ITS | Encounter Summary ---
Author Organization [facility] [place] [address] Care Team Providers Care Tree Expert Name Role Phone Husam Rosas MD Primary Care Provider +1 [phone] Reason for Visit * Reason Comments Medication Refill Encounter Details Date Type Department Care Team (Late Contact Info) Description 10/07/2011 [place] [address] Satya Wills MD [facility] [place] [address] Social History Tobacco Use Types Packs/Day Years [...] 1:30 PM EST Office [place] [address] Satya Wills MD [facility] [place] [address] documented as of this encounter Visit Diagnoses Not on filedocumented in this encounter Care Teams Tree Expert Relationship Specialty Start Date End Date Husam Rosas MD [address] [place] [address] PCP - General 01/19/10 01/22/17 documented as of this encounter
--- OUTSIDE RECORDS SUMMARY | 2023-12-04 16:35 | XMS_ITS | Encounter Summary ---
Author Organization [facility] [place] [address] Care Team Providers Care Test Desk Trouble Locator Name Role Phone Husam Rosas MD Primary Care Provider +1 -[phone] Reason for Visit * Reason Onset Date Comments Medication Refill 08/29/2011 Encounter Details Date Type Department Care Team (Late Contact Info) Description 08/29/2011 Telephone [place] [phone] Drew Heaton MD [facility] [place] [address] Medication Refill Social History Tobacco Use Types [...] Telephone Encounter - Suzie Mars RN - 08/29/2011 12:57 PM EDT Josiane calls and tells me she needs a new prescription for Viread. Script sent to [facility] [place] [facility]. documented in this encounter Plan of Treatment Upcoming Encounters Date Type Department Care Team (Late Contact Info) Description 03/06/2024 1:30 PM EST Office [place] [phone] Satya Wills MD [facility] [place] [address] documented as of this encounter Visit Diagnoses Diagnosis HIV (human immunodeficiency virus infection)- Primary Asymptomatic human immunodeficiency virus (HIV) infection status documented in this encounter Care Teams Test Desk Trouble Locator Relationship Specialty Start Date End Date Husam Rosas MD [address] [place] [address] PCP - General 01/19/10 01/22/17 documented as of this encounter
--- OUTSIDE RECORDS SUMMARY | 2023-12-04 16:35 | XMS_ITS | Encounter Summary ---
Author Organization [facility] Address [facility] [place] [address] Care Team Providers Care Audiology Doctor Name Role Phone Husam Rosas MD Primary Care Provider +1 [phone] Reason for Visit * Reason Comments Medication Refill Encounter Details Date Type Department Care Team (Late Contact Info) Description 04/29/2012 [place] [address] Satya Wills MD [facility] [place] [address] Social History Tobacco Use Types Packs/Day Years [...] 1:30 PM EST Office [place] [address] Satya Wills MD [facility] [place] [address] documented as of this encounter Visit Diagnoses Not on filedocumented in this encounter Care Teams Audiology Doctor Relationship Specialty Start Date End Date Husam Rosas MD [address] [place] [address] PCP - General 01/19/10 01/22/17 documented as of this encounter
--- OUTSIDE RECORDS SUMMARY | 2023-12-04 16:35 | XMS_ITS | Encounter Summary ---
Author Organization [facility] Address [facility] [place] [address] Care Team Providers Care Seat Scooper Machine Name Role Phone Husam Rosas MD Primary Care Provider +1 -[phone] Reason for Visit * Reason Comments Follow-up Encounter Details Date Type Department Care Team (Late st Contact Info) Description 10/26/2011 3:45 PM EDT Follow-[place] [address] Drew Heaton MD [facility] [place] [address] HIV disease (Primary Dx); Tobacco abuse Discharge Disposition: Home Social History Tobacco Use [...] Sign Reading Time Taken Comments Blood Pressure 150/93 10/26/2011 3:33 PM EDT Pulse 70 10/26/2011 3:33 PM EDT Temperature - - Respiratory Rate 16 10/26/2011 3:33 PM EDT Oxygen Saturation 99% 10/26/2011 3:33 PM EDT Inhaled Oxygen Concentration - - Weight 98 kg (216 lb) 10/26/2011 3:33 PM EDT Height - - Body Mass Index 34.34 07/26/2011 1:00 PM EDT documented in this encounter Progress Notes * Drew Heaton MD - 10/26/2011 4:12 PM EDT This is a scheduled appointment for an HIV infected woman last seen by me in clinic four months ago, since when she has done well save for ongoing seizures (though still relatively less frequent thanusual). The recurrent cutaneous lesions present at the last appointment have resolved. Blood pressure 150/93, pulse 70, resp. rate 16, weight 97.977 kg (216 lb), SpO2 99.00%. Overweight woman in no apparent distress. NC/AT. [...] Normal 02/29/2008 Normal Vag colpo: Last pelvic: [employer] exam: 05/27/2009 Anal pap: Rectal colpo: CD4: 10/26/2011 12/31/2010 318 11 10/01/2010 189 10 Chris: 10/26/2011 VL: 10/26/2011 07/26/2011 1,518 06/15/2011 19,378 Max VL: 04/30/2003 28,700 Resist assays: 07/26/2011 [...] 332, but thiswas again elevated to 19k when last seen, followed by 1,518 6 weeks later after adherence counselling. Phenotype 10/01/10 was again without resistance. Labs [...] Abnormal pap smear. Pap smear 09/06 was normal - reschedule to coordinate with next appointment. 9. Obesity. Not addressed today. 10. Hyperlipidemia. Not addressed today. 11. Smoking. Had stopped smoking in February, but is now still smoking a small number of cigarrettes. I again strongly encouraged her to again try stopping and we explored her ambivalnce. Her main pedicab driver to stop is cost so we explored how much she would save should she stop. 12. Abdominal pain/anorexia. Resolved. 13. Rectal bleeding. Seen Dr. Hermosillo. Colonoscopy unremarkable. No recurrence. 14. General health care. Mammogram 06/15/11 normal - repeat today. Colonoscopy 04/28/10 revealed multiple polyps so will repeat in three years (2013). 15. Skin lesions. Resolved. 30 minutes [id number] time spent with the patient, 20 minutes of which was in discussion and counseling about management of HIV; and 5 minutes on smoking cessation. Follow-up in 3-4 months. documented in this encounter Plan of Treatment Upcoming Encounters Date Type Department Care Team (Late st Contact Info) Description 03/06/2024 1:30 PM EST [place] [address] Satya Wills MD [facility] [place] [address] documented as of this encounter Procedures Procedure Name Priority Date/Time Associated Diagnosis Comments HIV QUANT Routine 10/26/2011 4:46 PM EDT HIV disease CD4 Routine 10/26/2011 4:46 PM EDT HIV disease DIFFERENTIAL, AUTOMATED Routine 10/26/2011 4:46 PM EDT HIV-1 RNA, QUANTITATIVE, PCR Routine 10/26/2011 4:46 PM EDT HIV disease CBC (WITH DIFF) Routine 10/26/2011 4:46 PM EDT HIV disease COMPREHENSIVE METABOLIC PANEL Routine 10/26/2011 4:46 PM EDT HIV disease documented in this encounter Results * DIFFERENTIAL, AUTOMATED (10/26/2011 4:46 PM EDT) Neutrophil % 54.0 34.0 - 71.0 % [facility] Neutrophil Absolute 2.92 1.50 - 6.30 x10(3)/mcL [facility] Lymph % 39.7 19.0 - 53.0 % [facility] Lymphocytes Abs 2.2 1.0 - 3.6 x10(3)/mcL [facility] Monocyte % 5.7 4.0 - 13.0 % [facility] Monocyte Abs 0.3 0.2 - 1.0 x10(3)/mcL [facility] Eos % 0.4 0.0 - 7.0 % [facility] MILLENNIUM Eosinophils Abs 0.0 0.0 - 0.5 x10(3)/mcL [facility] Basophil % 0.2 0.0 - 2.0 % [facility] Baso Absolute 0.0 0.0 - 0.2 x10(3)/mcL [facility] Immature Gran % 0.00 0.00 - 0.66 % [facility] Comment: Immature granulocytes(IG's)percentage and absolute count will include metamyelocytes, myelocytes, and promyelocytes. Blood smears from CBCs yielding IG's will be scanned manually for concordance. If this scan disagrees with the automated IG or if promyelocytes are noted, a manual differential will be performed. Immature Gran Absolute 0.00 0.00 - 0.05 x10(3)/mcL [facility] Blood specimen (specimen) 10/26/2011 4:46 PM EDT 10/26/2011 4:49 PM EDT Drew Heaton MD HEMATOLOGY ORDERABLE S [facility] * HIV QUANT (10/26/2011 4:46 PM EDT) HIV Viral Load Result (Qualitative) * RESULT: 627 copies/mL * INDICATION FOR STUDY: HIV-1 Infection [...] Administration. Robert Fuentes, Ph.D. Director, Molecular Pathology [facility] Comment: [VERIFIED DATE]10.28.11 Verified By:Fely Werner I (Electronic Signature) Blood specimen (specimen) 10/26/2011 4:46 PM EDT 10/26/2011 4:49 PM EDT Narrative Resulting Agency Comment Spec In Lab Drew Heaton MD HEMATOLOGY ORDERABLE S [facility] * (ABNORMAL) Comprehensive metabolic panel (non-fasting) (10/26/2011 4:46 PM EDT) Glucose 95 60 - 199 mg/dL [facility] Comment:Diabetes: >=200 mg/d L plus symptoms Blood Urea Nitrogen 9 8 - 18 mg/dL [facility] Creatinine 1.05 0.70 - 1.20 mg/dL [facility] Comment: Please note that the pediatric reference intervals supplied above were not validated at [facility]. Results from pediatric patients should be interpreted in conjunction to the patient's age, height and muscle mass. Sodium 136 135 - 145 mmol/L [facility] Potassium 4.5 3.5 - 5.0 mmol/L [facility] Comment: Please note: ??Patients with WBC >100,000 may have falsely elevated Potassium levels. ??For accurate Potassium quantification in these patients send serum separator tube (gold top) for subsequent determinations. ??Contact the Clinical Chemistry Laboratory if there are any questions. Chloride 102 98 - 107 mmol/L [facility] Carbon Dioxide 22 22 - 31 mmol/L [facility] Anion Gap 12 5 - 15 mmol/L [facility] Calcium 9.3 8.5 - 10.5 mg/dL [facility] Protein, Total 7.3 6.4 - 8.3 gm/dL [facility] Albumin 4.3 3.2 - 5.2 gm/dL [facility] Aspartate Aminotransferase 54(H) 0 - 30 unit/L [facility] Alanine Aminotransferase 58(H) 0 - 30 unit/L [facility] Alkaline Phosphatase 62 40 - 104 unit/L [facility] Bilirubin, Total 2.9(H) 0.2 - 1.3 mg/dL [facility] Bilirubin, Direct 0.5(H) 0.0 - 0.3 mg/dL [facility] Est Glomerular Filtration Rate 55(L) >=60 [facility] Comment: The National Kidney [...] J Am Soc Nephrol;6:1963-72. Blood specimen (specimen) 10/26/2011 4:46 PM EDT 10/26/2011 4:49 PM EDT Narrative Resulting Agency Comment Spec In Lab Drew Heaton MD CHEMISTRY ORDERABLES [facility] * (ABNORMAL) CD4 (10/26/2011 4:46 PM EDT) CD3% 94(H) 55 - 82 % [facility] CLIFFORD CD3 ABS 2010 174 - 5572 /mcl [facility] CD 4% 12(L) 35 - 61 % [facility] MILLENNIUM CD [...] CD4, CD8, CD19, CD16+56) Blood specimen (specimen) 10/26/2011 4:46 PM EDT 10/26/2011 4:49 PM EDT Narrative Resulting Agency Comment Spec In Lab Drew Heaton MD HEMATOLOGY ORDERABLE S [facility] * (ABNORMAL) CBC (with Diff) (10/26/2011 4:46 PM EDT) White Blood Cell 5.4 4.0 - 10.0 x10(3)/mc L [facility] MILLENNI[facility] Red Blood Cell 4.45 3.93 - 5.22 x10(6)/mc L [facility] Hemoglobin 15.4 11.2 - 15.7 gm/dL [facility]ILL[facility]NI[facility] Hematocrit 43.9 34.0 - 45.0 % [facility] MILLENNIUM Mean Cell Volume 98.7(H) 79.0 - 94.0 fL [facility] MILLENNIUM Mean Cell Hemoglobin 34.6(H) 26.6 - 32.2 pg [facility] MILLENNIUM Mean Cell Hemoglobin Concentration 35.1 32.0 - 36.5 gm/dL [facility] MILLENNIUM Platelet 113(L) 145 - 370 x10(3)/mc L [facility]ILL[facility]NI[facility] RDW Standard Deviation 44.8 35.0 - 46.0 fL [facility] MILLENNIUM RDW coefficient of variation 12.4 10.9 - 14.4 % [facility] ARAYAENNIUM Mean Platelet Volume 10.2 9.0 - 12.0 fL [facility] ARAYAENNIUM Blood specimen (specimen) 10/26/2011 4:46 PM EDT 10/26/2011 4:49 PM EDT Narrative Resulting Agency Comment Spec In Lab Drew Heaton MD HEMATOLOGY ORDERABLE S [facility] CL[facility]ORD documented in this encounter Visit Diagnoses Diagnosis HIV disease- Primary Human immunodeficiency virus [HIV] disease Tobacco abuse Tobacco use disorder documented in this encounter Care Teams Seat Scooper Machine Relationship Specialty Start Date End Date Husam Rosas MD [address] [place] [address] PCP - General 01/19/10 01/22/17 documented as of this encounter
--- OUTSIDE RECORDS SUMMARY | 2023-12-04 16:35 | XMS_ITS | Encounter Summary ---
Author Organization [facility] [place] [address] Care Team Providers Care Precinct Commanding Officer Name Role Phone Husam Rosas MD Primary Care Provider +1 [phone] Reason for Visit * Reason Comments Medication Refill Encounter Details Date Type Department Care Team (Late Contact Info) Description 03/22/2011 [place] [address] Satya Wills MD [facility] DR NEUROLOGY [place] [address] Social History Tobacco Use Types Packs/Day Years [...] 1:30 PM EST [place] [address] Satya Wills MD [facility] NEUROLOGY [place] [address] documented as of this encounter Visit Diagnoses Not on filedocumented in this encounter Care Teams Precinct Commanding Officer Relationship Specialty Start Date End Date Husam Rosas MD [address] [place] [address] PCP - General 01/19/10 01/22/17 documented as of this encounter
--- OUTSIDE RECORDS SUMMARY | 2023-12-04 16:35 | XMS_ITS | Encounter Summary ---
Author Organization [facility]ly [facility], [facility] Address [facility] [place] [address] Care Team Providers Care Branch Account Executive Name Role Phone Husam Rosas MD Primary Care Provider +1 [phone] Reason for Visit * Reason Comments Medication Refill Encounter Details Date Type Department Care Team ([facility] Contact Info) Description 04/21/2011 Refill [place] [phone] Drew Heaton MD [facility] [address] [place] [address] Social History Tobacco Use Types Packs/Day Years [...] 1:30 PM EST Office [place] [address] Satya Wills MD [facility] [place] [address] documented as of this encounter Visit Diagnoses Not on filedocumented in this encounter Care Teams Branch Account Executive Relationship Specialty Start Date End Date Husam Rosas MD [address] [place] [address] PCP - General 01/19/10 01/22/17 documented as of this encounter
--- OUTSIDE RECORDS SUMMARY | 2023-12-04 16:35 | XMS_ITS | Encounter Summary ---
Author Organization [facility] [place] [address] Care Team Providers Care Protection Consultant Name Role Phone Husam Rosas MD Primary Care Provider [phone] [phone] Encounter Details Date Type Department Care Team (Late st Contact Info) Description 02/17/2011 1:45 PM EST Follow-Up [place] [phone] Sary Glasgow TOOL CRIB MANAGER [facility] [place] [address] Irregular menses (Primary Dx) Discharge Disposition: Home Social History [...] Sign Reading Time Taken Comments Blood Pressure 156/91 02/17/2011 1:53 PM EST Pulse 62 02/17/2011 1:53 PM EST Temperature 36.7 ??C (98 ??F) 02/17/2011 1:53 PM EST Respiratory Rate - - Oxygen Saturation - - Inhaled Oxygen Concentration - - Weight 98 kg (216 lb) 02/17/2011 1:53 PM EST Height 167.6 cm (5' 6) 02/17/2011 1:53 PM EST Body Mass Index 34.86 02/17/2011 1:53 PM EST documented in this encounter Progress Notes * Sary Glasgow, EZRA - 02/17/2011 2:36 PM EST Subjective: Patient ID: Josiane Pacheco is 55 y.o. woman who presents today for obstetrics gynecology md exam. Her last pap smear was08/07 which was normal. She has a remote hx of abnormal pap smear requiring no treatment and has hadsubsequent normals. Reviewed with Josiane pap smear guidelines, she does not need a pap smear today. Josiane was seen in August 07 by Desirae Rodriguez APRN in [facility] at that time Josiane had continued to complainof abnormal menses- an u/s was ordered for further evaluation, however Josiane had never scheduled theappointment. Josiane continues to complain of abnormal menses, with her LMP 11/27/10, she is concerned that she may be as she has had unprotected intercourse with an on again/off again partner. She has had hot flashes and night sweats. She usually uses condoms- but did not one time about 2 months ago. Reports her partner is HIV negative and tested annually. She also c/o bloating and cramping which is new the past month or so. No changes in bowels or bladder habits. BM tend to be loose. Josiane has not scheduled her mammogram yet, but would like to do that today as well. Josiane also reports feeling a little blue because of the winter and holidays. She has seen a therapist in the past and is considering re-connecting. No SI. Social History: Lives alone. Goes to AA almost daily. 23 yo son lives in [place]. HPI Review of Systems Objective: Physical Exam Urine for was negative Exam is otherwise deferred today. Assessment and Plan: Current outpatient prescriptions Medication Sig Dispense Refill ??? VIMPAT 200 mg Tab take 1 tablet by mouth twice a day 60 tablet 5 ??? Ritonavir (RITONAVIR) 100 mg Tab Take 100 mg by mouth daily. 30 tablet 11 ??? lamoTRIgine (LAMICTAL) 200 mg tablet take 1 tablet by mouth twice a day 60 tablet 6 ??? atazanavir (REYATAZ) 300 mg capsule Take 1 capsule by mouth daily. 30 capsule 5 ??? abacavir-lamiVUDine (EPZICOM) 600-300 mg per tablet Take 1 tablet by mouth daily. 30 tablet 5 ??? pregabalin (LYRICA) 50 mg capsule Take by mouth. Take one pill twice a day 60 tablet 5 ??? naproxen (NAPROSYN) 375 mg tablet Take by mouth. Take one pill twice a day as needed 60 tablet 11 ??? sulfamethoxazole-trimethoprim (BACTRIM) 400-80 mg per tablet Take 1 tablet by mouth daily. 30 tablet 11 ??? lacosamide (VIMPAT) 200 mg Tab Take 1 tablet by mouth 2 times daily. ??? hyoscyamine (LEVSIN) 0.125 mg tablet Take 0.125 mg by mouth 3 times daily as needed. ??? tenofovir (VIREAD) 300 mg tablet Take 1 tablet by mouth daily. 30 tablet 5 ??? clonAZEpam (KLONOPIN) 1 mg tablet Take by mouth. tAek 1 in AM and 2 at HS 90 tablet 5 ??? hydrOXYzine (VISTARIL) 25 mg capsule Take 1 capsule by mouth 2 times daily. 60 capsule 6 ??? Multivitamins with Iron Tab Take 1 tablet by mouth daily. 30 tablet 11 ??? prochlorperazine (COMPAZINE) 10 mg tablet Take 10 mg by mouth 3 times daily as needed. ??? albuterol (PROAIR HFA) 90 mcg/Actuation inhaler 2 puffs, Inh, Four times daily PRN ??? hyoscyamine (LEVSIN/SL) 0.125 mg SL tablet 0.125 MG = 1 Tablet(s), Sublingual, Three times daily PRN abdominal cramps ??? polyethylene glycol (MIRALAX) 17 gram/dose powder 1 capful in 8oz water, PO, Twice daily Topiramate Impression/Plan: Irregular menses: likely nelson-menopausal however recent bloating and cramping. Will schedule ordered u/s today and will have Josiane f/u with Desirae Rodriguez APRN after u/s to discuss results. Discussed with Josiane comfort measures/non-pharm. management of menopause sx. Elevated BP today- she will check in with her PCP office for repeat BP check. Feeling blue- encouraged her to reconnect/re-establish with therapist and utilize social supports, AA program. Discussion re: safer sex- using condoms 100%. Condoms given today. documented in this encounter Plan of Treatment Upcoming Encounters Date Type Department Care Team (Late st Contact Info) Description 03/06/2024 1:30 PM EST Office [place] [address] Satya Wills MD [facility] [place] [place] [address] Scheduled Orders Name Type Priority Associated Diagnoses Orde r Schedule POCT urine Point of Care Testing Routine Irregular menses Ordered: 02/17/2011 documented as of this encounter Visit Diagnoses Diagnosis Irregular menses- Primary Irregular menstrual cycle documented in this encounter Care Teams Protection Consultant Relationship Specialty Start Date End Date Husam Roass MD [address] [place] [address] PCP - General 01/19/10 01/22/17 documented as of this encounter
--- OUTSIDE RECORDS SUMMARY | 2023-12-04 16:35 | XMS_ITS | Encounter Summary ---
Author Organization [facility] Address [facility] [place] [address] Care Team Providers Care Template Clerk Name Role Phone Husam Rosas MD Primary Care Provider [phone] [phone] Encounter Details Date Type Department Care Team (Latest Contact Info) Description 06/15/2011 2:00 PM EDT - 06/15/2011 11:59 PM EDT Hospital [place] [id number] CLINIC, Serena Ware MD [facility] OBSTETRICS & [place] [address] Discharge Disposition: Home Social History Tobacco Use [...] Sig Dispensed Refills Start Date End Date meloxicam (MOBIC) 7.5 mg tablet Take 1 [...] a day 60 tablet 6 11/30/2010 06/21/2011 sulfamethoxazole-trimethop rim (BACTRIM) 400-80 mg per tabletIndications:HIV [...] 1:30 PM EST Office Visit Neurology at [facility] [place] [address] [facility] [place] [address] documented as of this encounter Procedures Procedure Name Priority Date/Time Associated Diagnosis Comments MAMMO SCREENING CAD BILATERAL Routine 06/15/2011 2:23 PM EDT documented in this encounter Results * MAMMO DIGITAL BILATERAL SCREENING WITH CAD (06/15/2011 2:23 PM EDT) Anatomical Region Laterality Modality Breast Bilateral Mammography 06/15/2011 2:23 PM EDT Narrative 06/17/2011 12:43 PM EDT BILATERAL MAMMOGRAPHY ?? REASON FOR EXAM: Screening ?? TECHNIQUE: Cranio-caudal (CC) and mediolateral oblique (MLO) views of both breasts obtained with direct digital capture. The exam was evaluated by CAD Version 8.3.17. ?? FINDINGS: This is a negative mammogram (ACR Category 1). There is a stable fibroglandular pattern without significant change as compared to prior studies. There is no mammographic evidence of cancer. ? The breasts are predominantly fatty. ? CONCLUSION ?? This is a NEGATIVE mammogram (ACR Category 1). Routine screening mammography is recommended with the frequency dependent on the patient's age and breast cancer risk factors. ?? A letter has been sent to this patient by [facility]. Procedure Note Ramesh Alvarado MD - 06/17/2011 BILATERAL MAMMOGRAPHY REASON FOR EXAM: Screening TECHNIQUE: Cranio-caudal (CC) and mediolateral oblique (MLO) views of both breasts obtained with direct digital capture. The exam was evaluated byCAD Version 8.3.17. FINDINGS: This is a negative mammogram (ACR Category 1). There is a stable fibroglandular pattern without significant change as compared to priorstudies. There is no mammographic evidence of cancer. The breasts are predominantly fatty. CONCLUSION This is a NEGATIVE mammogram (ACR Category 1). Routine screeningmammography is recommended with the frequency dependent on the patient's age and breastcancer risk factors. A letter has been sent to this patient by the [facility]. Serena Rangel MD IMG MAMMO ORDERABLE S documented in this encounter Visit Diagnoses Not on filedocumented in this encounter Care Teams Template Clerk Relationship Specialty Start Date End Date Husam Rosas MD [address] [place] [address] PCP - General 01/19/10 01/22/17 documented as of this encounter
--- OUTSIDE RECORDS SUMMARY | 2023-12-04 16:35 | XMS_ITS | Encounter Summary ---
Author Organization [facility] [place] [address] Care Team Providers Care Machine Rug Cleaner Name Role Phone Husam Rosas MD Primary Care Provider [phone] [phone] Reason for Visit * Reason Onset Date Comments Medication Refill 04/23/2012 Encounter Details Date Type Department Care Team (Late Contact Info) Description 04/23/2012 Telephone [place] [phone] Drew Heaton MD [facility] [place] [address] Medication Refill Social History Tobacco Use Types [...] Telephone Encounter - Suzie Mars RN - 04/23/2012 4:34 PM EST Josiane calls with request for renewal of Epzicom and reyataz. Scripts sent to Clarissa Hodge in [facility] documented in this encounter Plan of Treatment Upcoming Encounters Date Type Department Care Team (Late Contact Info) Description 03/06/2024 1:30 PM EST Office [place] [phone] Satya Wills MD [facility] [place] [address] documented as of this encounter Visit Diagnoses Diagnosis Human immunodeficiency virus (HIV) disease- Primary Human immunodeficiency virus [HIV] disease documented in this encounter Care Teams Machine Rug Cleaner Relationship Specialty Start Date End Date Husam Rosas MD [address] [place] [address] PCP - General 01/19/10 01/22/17 documented as of this encounter
--- OUTSIDE RECORDS SUMMARY | 2023-12-04 16:35 | XMS_ITS | Encounter Summary ---
Author Organization [facility] Address [facility] [place] [address] Care Team Providers Care Assistant To The Dean Name Role Phone Husam Rosas MD Primary Care Provider +1 -[phone] Reason for Visit * Reason Comments Follow-up Encounter Details Date Type Department Care Team (Late st Contact Info) Description 03/02/2012 9:30 AM EST Follow-Up Infectious Disease at [facility] [place] [address] Drew Heaton MD [facility] [place] [address] HIV infection (Primary Dx); Tobacco abuse Discharge Disposition: Home [...] Sign Reading Time Taken Comments Blood Pressure 140/86 03/02/2012 9:36 AM EST Pulse 60 03/02/2012 9:36 AM EST Temperature - - Respiratory Rate - - Oxygen Saturation 98% 03/02/2012 9:36 AM EST Inhaled Oxygen Concentration - - Weight 102.1 kg (225 lb) 03/02/2012 9:36 AM EST Height - - Body Mass Index 35.77 11/30/2011 2:45 PM EDT documented in this encounter Progress Notes * Drew Heaton MD - 03/02/2012 9:50 AM EST This is a scheduled appointment for an HIV infected woman last seen by me in clinic four months ago, since when she has done well save for ongoing seizures (though still relatively less frequent thanusual) and new redness on face. Blood pressure 140/86, pulse 60, weight 102.059 kg (225 lb), SpO2 98.00%. Overweight woman in no apparent distress. NC/AT. EOMI. Skin without rash save for erythema on cheeks. Throat benign. Heart RRR no m/r/g. Lungs [...] Normal 02/29/2008 Normal Vag colpo: Last pelvic: Piped Pocket Machine Operator exam: 05/27/2009 Anal pap: Rectal colpo: CD4: 03/02/2012 10/26/2011 249 12 12/31/2010 318 11 Chris: 03/02/2012 VL: 03/02/2012 10/26/2011 627 07/26/2011 1,518 Max VL: 04/30/2003 28,700 Resist assays: 07/26/2011 [...] after adherence counselling and then 627 in September. Phenotype 10/01/10 was again without resistance. Labs for safety and efficacy every 3-4 months (including today) as long as all goes well. 2. Adherence. She states that she has been 100% adherent since last seen, and I reinforced the importance of remaining so. 3. Chemoprophylaxis. Started on Bactrim in February 2010 given CD4<200 - will stop if again today>200. 4. Immunoprophylaxis. Up to date including Flu locally and Prevnar today. 5. Risk reduction. Last sexually active 2 weeks ago - she has previously said that she is always safe. 6. Seizure disorder/headaches. She is under the care of Drs. Wills. 7. Psychiatric. Her mood is decent. She is again seeing a therapist. 8. Abnormal pap smear. Pap smear 09/06 was normal - rescheduled for todayt. 9. Obesity. Not addressed today. 10. Hyperlipidemia. Not addressed today. 11. Smoking. Had stopped smoking in February, but is now still smoking a small number of cigarrettes. I again strongly encouraged her to again try stopping and we again explored her ambivalnce. Her main compressed air pile driver operator to stop is cost so we explored how much she would save should she stop; while her main challenge is that her friend Neo smokes. 12. Abdominal pain/anorexia. Resolved. 13. Rectal bleeding. Seen Dr. Hermosillo. Colonoscopy unremarkable. No recurrence. 14. General health care. Mammogram 06/15/11 normal - repeat today. Colonoscopy 04/28/10 revealed multiple polyps so will repeat in three years (2013). 15. Facial rash. Unclear etiology - she will contact her PCP if this persists. 30 minutes [id number] time spent with the patient, 20 minutes of which was in discussion and counseling about management of HIV; and 5 minutes on smoking cessation. Follow-up in 3-4 months. documented in this encounter Plan of Treatment Upcoming Encounters Date Type Department Care Team (Late st Contact Info) Description 03/06/2024 1:30 PM EST Office [place] [address] Satya Wills MD [facility] [place] [address] documented as of this encounter Procedures Procedure Name Priority Date/Time Associated Diagnosis Comments HIV QUANT Routine 03/02/2012 10:58 AM EST HIV infection QUANTIFERON-TB GOLD Routine 03/02/2012 1 0:58 AM EST HIV infection CD4 Routine 03/02/2012 10:58 AM EST HIV infection DIFFERENTIAL, AUTOMATED Routine 03/02/2012 10:58 AM EST SYPHILIS ANTIBODY SCREEN WITH REFLEX Routine 03/02/2012 10:58 AM EST HIV infection HIV-1 RNA, QUANTITATIVE, PCR Routine 03/02/2012 10:58 AM EST HIV infection CBC (WITH DIFF) Routine 03/02/2012 10:58 AM EST HIV infection COMPREHENSIVE METABOLIC PANEL Routine 03/02/2012 10:58 AM EST HIV infection documented in this encounter Results * Differential, Automated (03/02/2012 10:58 AM EST) Neutrophil % 42.9 34.0 - 71.0 % [facility] MILLENNIUM Neutrophil Absolute 1.76 1.50 - 6.30 x10(3)/mcL [facility] MILLENNIUM Lymph % 49.6 19.0 - 53.0 % CERN[facility] MILLENNIUM Lymphocytes Abs 2.0 1.0 - 3.6 x10(3)/mcL [facility] MILLENNIUM Monocyte % 6.1 4.0 - 13.0 % [facility] Monocyte Abs 0.2 0.2 - 1.0 x10(3)/[facility] Eos % 1.0 0.0 - 7.0 % [facility] Eosinophils Abs 0.0 0.0 - 0.5 x10(3)/[facility] Basophil % 0.2 0.0 - 2.0 % [facility] Baso Absolute 0.0 0.0 - 0.2 x10(3)/[facility] Immature Gran % 0.20 0.00 - 0.66 % [facility] Comment: Immature granulocytes(IG's)percentage and absolute count will include metamyelocytes, myelocytes, and promyelocytes. Blood smears from CBCs yielding IG's will be scanned manually for concordance. If this scan disagrees with the automated IG or if promyelocytes are noted, a manual differential will be performed. Immature Gran Absolute 0.01 0.00 - 0.05 x10(3)/[facility] Blood specimen (specimen) 03/02/2012 10:58 AM EST 03/02/2012 11:02 AM EST Drew Heaton MD HEMATOLOGY ORDERABLE S [facility] * HIV Quant (03/02/2012 10:58 AM EST) HIV Viral Load Result (Qualitative) * RESULT: [id number] copies/mL * INDICATION FOR STUDY: HIV-1 Infection [...] Molecular Pathology [facility] Comment: [VERIFIED DATE]03.07.12 Verified By:Paty Kaur (Electronic Signature) Blood specimen (specimen) 03/02/2012 10:58 AM EST 03/02/2012 11:02 AM EST Narrative Resulting Agency Comment Spec In Lab Drew Heaton MD HEMATOLOGY ORDERABLE S [facility] * QuantiFERON-TB Gold (03/02/2012 10:58 AM EST) Quantiferon-TB Gold Negative Negative [facility] Comment: Nil (IU/mL)= 0.14 TB Ag minus Nil (IU/mL)= 0.10 Mitogen minus Nil (IU/mL)=>10 M. tuberculosis (TB) infection NOT likely ?A negative specimen should have a TB Ag minus Nil value less than 0.35 IU/mL OR a TB Ag minus Nil greater than or equal to 0.35 IU/mL and in addition the TB Ag minus Nil value must be less than 25% of the Nil value. A negative specimen should have a Mitogen minus Nil value greater than or equal to 0.5 IU/mL. ?A negative QuantiFERON-TB Gold IT result does not preclude the possibility of M. tuberculosis infection or tuberculosis disease: false negative results can be due to stage of infection (e.g., specimen obtained prior to the development of cellular immune response), co-morbid conditions which affect immune function, or other individual immunological factors. ?The performance of the QuantiFERON-TB Gold IT test has not been extensively evaluated with specimens from the following groups of individuals: ?1. Individuals who have impaired or altered immune [...] of the head or neck and lung). ?2. Individuals younger than age 17 years. ?3. women. Note: Diagnosing or excluding tuberculosis disease, and assessing the probability of LTBI, require a combination of epidemiological, historical, medical, and diagnostic findings that should be taken into account when interpreting QuantiFERON-TB Gold results. Reference (http://www.cdc.gov/nchstp/tb/) Blood specimen (specimen) 03/02/2012 10:58 AM EST 03/05/2012 8:11 AM EST Narrative Resulting Agency Comment Spec In Lab Drew Heaton MD CHEMISTRY ORDERABLES Performing Organization Address [facility] de Phone Number [facility] * Syphilis Antibody, IgG (03/02/2012 10:58 AM EST) Pathologist [facility] Syphilis IgG Negative Negative [facility] MILLENNIUM Blood specimen (specimen) 03/02/2012 10:58 AM EST 03/02/2012 2:36 PM EST Narrative Resulting Agency Comment Spec In Lab Drew Heaton MD CHEMISTRY ORDERABLES Performing Organization Address [facility] de Phone Number [facility] * (ABNORMAL) Comprehensive metabolic panel (non-fasting) (03/02/2012 10:58 AM EST) [facility] Glucose 107 60 - 199 mg/dL CERNER MILLENNIUM Comment:Diabetes: >=200 mg/d L plus symptoms Blood Urea Nitrogen 11 8 - 18 mg/dL [facility] MILLENNIUM Creatinine 0.93 0.70 - 1.20 mg/dL [facility]ILL[facility]NI[facility] Comment: [...] questions. Chloride 104 98 - 107 mmol/L [facility] MILLENNIUM Carbon Dioxide 23 22 - 31 mmol/L [facility] MILLENNIUM Anion Gap 10 5 - 15 mmol/L [facility] MILLENNIUM Calcium 9.4 8.5 - 10.5 mg/dL [facility] MILLENNIUM Protein, Total 7.5 6.4 - 8.3 gm/dL [facility] MILLENNIUM Albumin 4.2 3.2 - 5.2 gm/dL [facility] MILLENNIUM Aspartate Aminotransferase 100(H) 0 - 30 unit/L [facility] MILLENNIUM Alanine Aminotransferase 103(H) 0 - 30 unit/L [facility] MILLENNIUM Alkaline Phosphatase 59 40 - 104 unit/L [facility]ERN[facility] MILLENNIUM Bilirubin, Total 3.9(H) 0.2 - 1.3 mg/dL CERNER MILLENNIUM Bilirubin, [...] J Am Soc Nephrol;6:1963-72. Blood specimen (specimen) 03/02/2012 10:58 AM EST 03/02/2012 11:02 AM EST Narrative Resulting Agency Comment Spec In Lab Drew Heaton MD CHEMISTRY ORDERABLES Performing Organization Address City/[facility]/ZIP Co de Phone Number [facility] * (ABNORMAL) CD4 (03/02/2012 10:58 AM EST) CD3% 93(H) 55 - 82 % CERNER MILLENNIUM CD3 ABS 1896 731 - 2438 /mcl CERN[facility] MILLENNIUM CD 4% 10(L) 35 - 61 % CERNER MILLENNIUM CD 4ABS 199(L) 503 - 1736 /mcl [facility] MILLENNIUM Comment: [...] CD4, CD8, CD19, CD16+56) Blood specimen (specimen) 03/02/2012 10:58 AM EST 03/02/2012 11:02 AM EST Narrative Resulting Agency Comment Spec In Lab Drew Heaton MD HEMATOLOGY ORDERABLE S [facility]ERJ[facility] * (ABNORMAL) CBC (with Diff) (03/02/2012 10:58 AM EST) White Blood Cell 4.1 4.0 - 10.0 x10(3)/mc L CERNER MILLENNIUM Red Blood Cell 4.30 3.93 - 5.22 x10(6)/mc L CERNER MILLENNIUM Hemoglobin 15.5 11.2 - 15.7 gm/dL CERNER MILLENNIUM Hematocrit 43.9 34.0 - 45.0 % CERNER MILLENNIUM Mean Cell Volume 102.1(H) 79.0 - 94.0 fL CERNER MILLENNIUM Mean Cell Hemoglobin 36.0(H) 26.6 - 32.2 pg CERNER MILLENNIUM Mean Cell Hemoglobin Concentration 35.3 32.0 - 36.5 gm/dL CERNER MILLENNIUM Platelet 100(L) 145 - 370 x10(3)/mc L CERNER MILLENNIUM RDW Standard Deviation 45.7 35.0 - 46.0 fL CERNER MILLENNIUM RDW coefficient of variation 12.4 10.9 - 14.4 % CERNER MILLENNIUM Mean Platelet Volume 10.5 9.0 - 12.0 fL CERNER MILLENNIUM Blood specimen (specimen) 03/02/2012 10:58 AM EST 03/02/2012 11:02 AM EST Narrative Resulting Agency Comment Spec In Lab Drew Heaton MD HEMATOLOGY ORDERABLE S [facility] documented in this encounter Visit Diagnoses Diagnosis HIV infection- Primary Asymptomatic human immunodeficiency virus (HIV) infection status Tobacco abuse Tobacco use disorder documented in this encounter Care Teams Assistant To The Dean Relationship Specialty Start Date End Date Husam Rosas MD [address] [place] [address] PCP - General 01/19/10 01/22/17 documented as of this encounter
--- OUTSIDE RECORDS SUMMARY | 2023-12-04 16:36 | XMS_ITS | Encounter Summary ---
Author Organization Formerly [facility] [place] [address] Care Team Providers Care Asphalt Plant Laborer Name Role Phone Husam Rosas MD Primary Care Provider [phone] Encounter Details Date Type Department Care Team (Late st Contact Info) Description 02/16/2010 [place] [address] Drew Heaton MD [facility] [place] [address] Social History Tobacco Use Types Packs/Day Years Used Date Smoking Tobacco: Never Assessed Sex and Gender Information Value Date Recorded Sex Assigned at Not on file Gender Identity Not on file Sexual Orientation Not on file documented as of this encounter Plan of Treatment Upcoming Encounters Date Type Department Care Team (Late Contact Info) Description 03/06/2024 1:30 PM EST [place] [address] Satya Wills MD [facility] [place] [address] documented as of this encounter Procedures Procedure Name Priority Date/Time Associated Diagnosis Comments HIV QUANT Routine 02/16/2010 5:12 PM EST documented in this encounter Results * REFLEX LAB-HIV QUANT (02/16/2010 5:12 PM EST) HIV Viral Load Result (Qualitative) RESULT: 1404 copies/mL INTERPRETATION: The result of this analysis are within the limits of detection of this assay. INDICATION FOR STUDY: HIV-1 Infection ANALYSIS: A real time PCR amplification assay was performed on extracted viral RNA for the purpose of quantification. SAMPLE: serum/plasma (1.0 mL minimum) METHOD: ORLIN AmpliPrep / ORLIN TaqMan HIV-1 Test LINEAR RANGE: 48 copies/mL 10,000,000 copies/mL plasma NOTE: The ORLIN AmpliPrep / ORLIN TaqMan HIV-1 Test has been approved by the U.S. Food and Drug Administration. Robert Fuentes, Ph.D. Director, Molecular Pathology CHAIRA CLIFFORD Comment: [VERIFIED DATE]02.18.10 Verified By:Fely Werner I (Electronic Signature) Blood specimen (specimen) 02/16/2010 5:12 PM EST 02/17/2010 2:37 PM EST Drew Heaton MD HEMATOLOGY ORDERABLE S Performing Organization Address City/State/[facility] Co de Phone Number [facility] documented in this encounter Visit Diagnoses Not on filedocumented in this encounter Care Teams Asphalt Plant Laborer Relationship Specialty Start Date End Date Husam Rosas MD [address] [place] [address] PCP - General 01/19/10 01/22/17 documented as of this encounter
--- OUTSIDE RECORDS SUMMARY | 2023-12-04 16:36 | XMS_ITS | Encounter Summary ---
Author Organization Replaced By [facility] Address [facility] [place] [address] Care Team Providers Care Corporate Compliance Manager Name Role Phone Husam Rosas MD Primary Care Provider [phone] Encounter Details Date Type Department Care Team (Late st Contact Info) Description 09/30/2010 Abstract [place] [address] Vy Stafford, RN Social History Tobacco Use Types Packs/Day Years Used Date Smoking Tobacco: Every Day Cigarettes 0.3 35 Alcohol Use Standard Drinks/Week Comments Not Asked 0 (1 standard drink = 0.6 oz pur e alcohol) Sex and Gender Information Value Date Recorded Sex Assigned at Not on file Gender Identity Not on file Sexual Orientation Not on file documented as of this encounter Plan of Treatment Upcoming Encounters Date Type Department Care Team (Late st Contact Info) Description 03/06/2024 1:30 PM EST Office [place] [address] Satya Wills MD [facility] [place] [address] documented as of this encounter Visit Diagnoses Not on filedocumented in this encounter Care Teams Corporate Compliance Manager Relationship Specialty Start Date End Date Husam Rosas MD [address] [place] [address] PCP - General 01/19/10 01/22/17 documented as of this encounter
--- OUTSIDE RECORDS SUMMARY | 2023-12-04 16:36 | XMS_ITS | Encounter Summary ---
Author Organization [facility] [place] [address] Care Team Providers Care Machine Skiver Name Role Phone Husam Rosas MD Primary Care Provider [phone] Reason for Visit * Reason Onset Date Comments Medication Refill 11/02/2010 Encounter Details Date Type Department Care Team (Late st Contact Info) Description 11/02/2010 Refill [place] [phone] Drew Heaton MD [facility] DR [place] [address] Social History Tobacco Use Types Packs/Day Years [...] Telephone Encounter - Suzie Mars RN - 11/02/2010 1:08 PM EDT Pharmacy requests new scripts for Epzicom and Reyetaz documented in this encounter Plan of Treatment Upcoming Encounters Date Type Department Care Team (Late st Contact Info) Description 03/06/2024 1:30 PM EST [place] [address] Satya Wills MD [facility] [place] [address] documented as of this encounter Visit Diagnoses Not on filedocumented in this encounter Care Teams Machine Skiver Relationship Specialty Start Date End Date Husam Rosas MD [address] [place] [address] PCP - General 01/19/10 01/22/17 documented as of this encounter
--- OUTSIDE RECORDS SUMMARY | 2023-12-04 16:36 | XMS_ITS | Encounter Summary ---
Author Organization [facility] [place] [address] Care Team Providers Care Transaction Coordinator Name Role Phone Husam Rosas MD Primary Care Provider [phone] Reason for Visit * Reason Comments Medication Refill Encounter Details Date Type Department Care Team (Late Contact Info) Description 11/30/2010 [place] [address] Satya Wills MD [facility] [place] [address] Epilepsy Social History Tobacco Use Types Packs/Day [...] 1:30 PM EST Office [place] [address] Satya Wills MD [facility] [place] [address] documented as of this encounter Visit Diagnoses Diagnosis Epilepsy Unspecified epilepsy without mention of intractable epilepsy documented in this encounter Care Teams Transaction Coordinator Relationship Specialty Start Date End Date Husam Rosas MD [address] [place] [address] PCP - General 01/19/10 01/22/17 documented as of this encounter
--- OUTSIDE RECORDS SUMMARY | 2023-12-04 16:36 | XMS_ITS | Encounter Summary ---
Author Organization [facility] Address [facility] [place] [address] Care Team Providers Care Substance Abuse Clinician Name Role Phone Husam Rosas MD Primary Care Provider [phone] Reason for Visit * Reason Onset Date Comments Medication Refill 06/28/2010 refill Encounter Details Date Type Department Care Team (Late st Contact Info) Description 06/28/2010 [place] [phone] Satya Wills MD [facility] [place] [address] Epilepsy (Primary Dx) Social History Tobacco Use Types [...] encounter Miscellaneous Notes * Telephone Encounter - Michelle Gamble - 06/28/2010 11:41 AM EDT zimpat 200 mg 2 x day [facility], [facility] [phone] documented in this encounter Plan of Treatment Upcoming Encounters Date Type Department Care Team (Late st Contact Info) Description 03/06/2024 1:30 PM EST [place] [phone] Satya Wills MD [facility] [place] [address] documented as of this encounter Visit Diagnoses Diagnosis Epilepsy- Primary Unspecified epilepsy without mention of intractable epilepsy documented in this encounter Care Teams Substance Abuse Clinician Relationship Specialty Start Date End Date Husam Rosas MD [address] [place] [address] PCP - General 01/19/10 01/22/17 documented as of this encounter
--- OUTSIDE RECORDS SUMMARY | 2023-12-04 16:36 | XMS_ITS | Encounter Summary ---
Author Organization [facility] Address [facility] [place] [address] Care Team Providers Care Facility Service Associate Name Role Phone Husam Rosas MD Primary Care Provider [phone] Reason for Visit * Reason Onset Date Comments Medication Refill 06/29/2010 needs refill Encounter Details Date Type Department Care Team (Late st Contact Info) Description 06/29/2010 [place] [address] Satya Wills MD [facility] [place] [address] Social History Tobacco Use Types Packs/Day Years [...] Telephone Encounter - Josiane Blank LPN - 06/29/2010 12:47 PM EDT I left voicemail on patient's phone letting her know that her lamictal script had been sent to the [facility] [place], [place] on June 08. She needs to check with her pharmacy. * Telephone Encounter - Michelle Gamble - 06/29/2010 12:27 PM EDT Lamictal 200 mg 1 tab 2 x day Clarissa Hodge [place], [place] [phone] documented in this encounter Plan of Treatment Upcoming Encounters Date Type Department Care Team (Late st Contact Info) Description 03/06/2024 1:30 PM EST [place] [address] Satya Wills MD [facility] [place] [address] documented as of this encounter Visit Diagnoses Not on filedocumented in this encounter Care Teams Facility Service Associate Relationship Specialty Start Date End Date Husam Rosas MD [address] [place] [address] PCP - General 01/19/10 01/22/17 documented as of this encounter
--- OUTSIDE RECORDS SUMMARY | 2023-12-04 16:36 | XMS_ITS | Encounter Summary ---
Author Organization [facility] Address [facility] [place] [address] Care Team Providers Care Apartment Property Manager Name Role Phone Sarah Alejo EZRA Primary Care Provider [phone] Encounter Details Date Type Department Care Team (Late st Contact Info) Description 09/15/2004 Orders [place] [address] Satya Wills MD [facility] [place] [address] Social History Tobacco Use Types Packs/Day Years Used Date Smoking Tobacco: Never Assessed Overall Financial Resource Strain (CARDIA) [place] r [...] in a longterm (including now)? No 10/24/2022 Sex and Gender Information Value Date Recorded Sex Assigned at Not on file Gender Identity Not on file Sexual Orientation Not on file documented as of this encounter Plan of Treatment Upcoming Encounters Date Type Department Care Team (Late st Contact Info) Description 03/06/2024 1:30 PM EST Office [place] [address] Satya Wills MD [facility] [place] [address] documented as of this encounter Procedures Procedure Name Priority Date/Time Associated Diagnosis Comments NON-TECHNICAL PUBLICATIONS WRITER FINAL REPORT Routine 09/15/2004 2:11 PM EDT documented in this encounter Results * Non-Communications Tower Technician Final Report (09/15/2004 2:11 PM EDT) Non-Communications Tower Technician Final Report [id number] ? Location: The signing pathologist has (i) examined the relevant preparation(s) for the specimen(s) and (ii) rendered or confirmed the diagnosis(es). . ? Pathology Non-Communications Tower Technician Cytology Final Report Clinical Information Specimen Source: ? Cerebrospinal Fluid, Lumbar Clinical History/Impressio n: ?? HIV infection. ??Chronic meningitis of unclear etiology. ??CI: R/O ALLERGY PHYSICIAN lymphoma. Gross Description: ?? Rec'd ??fresh, approx. 6 ml. total volume of ?? clear, colorless fluid. ?Total Prep - Cys 2. Interpretation Specimen submitted is satisfactory. Diagnosis Negative for Malignancy 09/18/04 ?Screened by: ? EAM ?Rescreened by: ?? WAW 09/20/04 ?Verified by: ? Ale Pulido MD ? Pathologist ? (Electronic Signature) Comment Rare benign lymphocytes. ??These findings correlate with the concurrent pereyra-giemsa stained smear [id number] reviewed by the hematopathologist jc CLIFFORD 09/15/2004 2:11 PM EDT Satya Wills MD PATHOLOGY/CYTOLOGY O RDERABLES Performing Organization Address City/State/[facility] Co de Phone Number [facility] documented in this encounter Visit Diagnoses Not on filedocumented in this encounter Care Teams Apartment Property Manager Relationship Specialty Start Date End Date Sarah Alejo, CANDLEMAKER [address] [place] [address] PCP - General Internal Medicine 11/06/19 documented as of this encounter
--- OUTSIDE RECORDS SUMMARY | 2023-12-04 16:36 | XMS_ITS | Encounter Summary ---
Author Organization [facility] Address [facility] [place] [address] Care Team Providers Care Slot Floor Person Name Role Phone Husam Rosas MD Primary Care Provider [phone] Reason for Visit * Reason Comments Follow-up Pt asked for a pregn dayron test Encounter Details Date Type Department Care Team (Late st Contact Info) Description 06/04/2010 11:30 AM EDT Follow-Up [place] [id number] Drew Heaton MD [facility] [place] [address] HIV disease; Late menses Discharge Disposition: Home Social History Tobacco Use Types Packs/Day Years Used Date Smoking Tobacco: Every Day Cigarettes 0.3 35 Tobacco Cessation:Ready to Q uit: Yes; Counseling Given: Yes Alcohol Use Standard Drinks/Week Comments Not Asked 0 (1 standard drink = 0.6 oz pur e alcohol) Sex and Gender Information Value Date Recorded Sex Assigned at Not on file Gender Identity Not on file Sexual Orientation Not on file documented as of this encounter Last Filed Vital Signs Vital Sign Reading Time Taken Comments Blood Pressure 112/67 06/04/2010 9:31 AM EDT Pulse 88 06/04/2010 9:31 AM EDT Temperature 37 ??C (98.6 ??F) 06/04/2010 9:31 AM EDT Respiratory Rate 14 06/04/2010 9:31 AM EDT Oxygen Saturation 98% 06/04/2010 9:31 AM EDT Inhaled Oxygen Concentration - - Weight 94.3 kg (208 lb) 06/04/2010 9:31 AM EDT Height - - Body Mass Index - - documented in this encounter Progress Notes * Drew Heaton MD - 06/04/2010 10:47 AM EDT This is a scheduled appointment for an HIV infected woman last seen by me in clinic three months ago, since when she has done well save for ongoing seizures and general ill feeling. Her period is a two months late. Labs: 03/17/10 CD4 177 (13%), 02/16/10 HIV PCR 4,193 Physical exam: Overweight woman in no apparent distress. NC/AT. EOMI. Skin without rash. Throat benign. Heart RRR no m/r/g. Lungs CTA. Abdomen benign. Neuro. grossly nonfocal. Assessment and Plan: 1. HIV. Was doing well on current regimen after addition of tenofovir, but with persistent elevatedviral load, unremarkable genotype in February, and h/o not taking RTV. She is now again on the correct regimen, so will recheck viral load and atazanavir drug concentration. Labs for safety and efficacy every 3-4 months (including today) as long as all goes well. 2. Adherence. She states that she has been 100% adherent since last seen, and I reinforced the importance of remaining so. 3. Chemoprophylaxis. Started on Bactrim in February given CD4<200. We will trial time off it, either with replacement or not based on CD4 today. 4. Immunoprophylaxis. Up to date, including flu vaccine. 5. Risk reduction. Intermittently sexually active - she says she is always safe. 6. Seizure disorder/headaches. She is under the care of Drs. Wills, with whom she has an appointment today. 7. Psychiatric. Her mood is decent. She is again seeing a therapist. 8. Abnormal pap smear. Pap smear 05/06 was normal - was scheduled today but has been rescheduled. 9. Obesity. Not addressed today. 10. Hyperlipidemia. Not addressed today. 11. Smoking. Had stopped smoking in February, but is now smoking a small number of cigarrettes.I strongly encouraged her to again try stopping. 12. Abdominal pain/anorexia. Resolved. 13. Rectal bleeding. Seen Dr. Hermosillo. Colonoscopy unremarkable. 14. General health care. Mammogram 05/06 normal. Colonoscopy 03/09 revealed multiple polyps so will repeat in three years (2013). 15. Missed period. Urine today. 25 minutes [id number] time spent with the patient, 15 minutes of which was in discussion and counseling about management of HIV. Follow-up in 3-4 months. documented in this encounter Plan of Treatment Upcoming Encounters Date Type Department Care Team (Late st Contact Info) Description 03/06/2024 1:30 PM EST Office [place] [address] Satya Wills MD [facility] [place] [address] Scheduled Orders Name Type Priority Associated Diagnoses Orde r Schedule Miscellaneous Lab request Lab Routine HIV disease Expected: 06/04/2010, Expires: 06/05/2011 documented as of this encounter Procedures Procedure Name Priority Date/Time Associated Diagnosis Comments URINE, QUALITATIVE Routine 06/04/2010 11:30 AM EDT Late menses [facility] Routine 06/04/2010 1 1:29 AM EDT HIV QUANT Routine 06/04/2010 11:19 AM EDT CD4 Routine 06/04/2010 11:19 AM EDT HIV disease DIFFERENTIAL, AUTOMATED Routine 06/04/2010 11:19 AM EDT CBC (WITH DIFF) Routine 06/04/2010 11:19 AM EDT HIV disease COMPREHENSIVE METABOLIC PANEL Routine 06/04/2010 11:19 AM EDT HIV disease HIV-1 RNA, QUANTITATIVE, PCR Routine 06/04/2010 11:11 AM EDT HIV disease documented in this encounter Results * (ABNORMAL) urine, qualitative (06/04/2010 11:30 AM EDT) Specific Gary Urine Non-automated 1.033(H) 1.002 - 1.030 CHIARA ARAYABRENDAKIAH Human Chorionic Gonadotropin Qualitative, Urine Negative [facility] Comment: If Specific Gary is less than 1.010, a negative result is obtained, and is still suspected, a repeat on a first morning specimen is recommended. Urine specimen (specimen) 06/04/2010 11:30 AM EDT 06/04/2010 11:36 AM EDT Drew Heaton MD URINE ORDERABLES CHIARA CLIFFORD * REFLEX LAB-[facility] TEST-[facility] (06/04/2010 11:29 AM EDT) Pathologist [facility] ? HI ? Expected Test ? Result ?LO ??Units ??Values ------ [facility] Test ??Test Name ?ATAZANAVIR ??Result ? SEE COMMENTS ??TIME/DATE, LAST DOSE ? 06/03/2010 ??2100 ??DOSE ? 300 MG PO QD ??ATAZANAVIR LEVEL ? 0.16 ??mcG/mL Oral atazanavir doses of 400 mg every 24 hours produce peak concentrations in the range of 1-10 mcg/mL approximately 2 to 2.5 hours post dose. ??Food increases the absorption of atazanavir. Trough concentrations appear to correlate with the efficacy of atazanavir. ??Several studies suggest that 24 hours after a dose of atazanavir, concentrations should exceed 0.15 mcg/mL. ??Twenty-four hour trough concentrations below 0.15 mcg/mL may suggest the need for more frequent doses or larger doses. ??For selected, treatment- experienced patients, trough of 0.85 mcg/mL or high may be needed. Such higher troughs also may be associated with increased bilirubin concentrations. ??Details may be found in the following article: ??CJ1 Fatimah Williamson et al. ??Updated guideline to perform TDM for antiretroviral agents. ??Review in Antiviral Therapy 2006; 3:4-14. If the time of the dose and the blood draw were not accurately recorded, accurate interpretation of the concentration is not possible. Please [phone] if additional information is needed COMMENT ?NO ADDITIONAL COMMENTS Test Performed by: [facility] ? [address] [place] [address] ? [place] [address] CERNER MILLENNIUM Blood specimen (specimen) 06/04/2010 11:29 AM EDT 06/04/2010 2:00 PM EDT Drew Heaton MD LAB SEND OUT ORDERAB LES CHIARA ARAYAENNIUM * (ABNORMAL) REFLEX LAB-A-DIFF (06/04/2010 11:19 AM EDT) Neutrophil % 69.0 34.0 - 71.0 % CERNER MILLENNIUM Neutrophil Absolute 2.33 1.50 - 6.30 x10(3)/mc L CERNER MILLENNIUM Lymph % 18.9(L) 19.0 - 53.0 % CERNER MILLENNIUM Lymphocytes Abs 0.6(L) 1.0 - 3.6 x10(3)/mc L CERNER MILLENNIUM Monocyte % 7.7 4.0 - 13.0 % CERNER MILLENNIUM Monocyte Abs 0.3 0.2 - 1.0 x10(3)/mc L CERNER MILLENNIUM Eos % 3.8 0.0 - 7.0 % [facility] Eosinophils Abs 0.1 0.0 - 0.5 x10(3)/mc L [facility] Basophil % 0.3 0.0 - 2.0 % [facility] Baso Absolute 0.0 0.0 - 0.2 x10(3)/mc L [facility] Immature Gran % 0.30 0.00 - 0.66 % [facility] Comment: Immature granulocytes(IG's)percentage and absolute count will include metamyelocytes, myelocytes, and promyelocytes. Blood smears from CBCs yielding IG's will be scanned manually for concordance. If this scan disagrees with the automated IG or if promyelocytes are noted, a manual differential will be performed. Immature Gran Absolute 0.01 0.00 - 0.05 x10(3)/mc L [facility] Blood specimen (specimen) 06/04/2010 11:19 AM EDT 06/04/2010 11:29 AM EDT Drew Heaton MD HEMATOLOGY ORDERABLE S [facility] * REFLEX LAB-HIV QUANT (06/04/2010 11:19 AM EDT) Pathologist [facility] HIV Viral Load Result (Qualitative) RESULT: 6252 copies/mL INTERPRETATION: The result of this analysis [...] Administration. Robert Fuentes, Ph.D. Director, Molecular Pathology [facility] Comment: [VERIFIED DATE]06.09.10 Verified By:Brooke Lenz (Electronic Signature) Blood specimen (specimen) 06/04/2010 11:19 AM EDT 06/04/2010 11:29 AM EDT Drew Heaton MD HEMATOLOGY ORDERABLE S CERNER MILLENNIUM * (ABNORMAL) Comprehensive metabolic panel (06/04/2010 11:19 AM EDT) Glucose 134 60 - 199 mg/dL CERNER MILLENNIUM Comment:Diabetes: >=200 mg/d L plus symptoms Blood Urea Nitrogen 16 8 - 18 mg/dL CERNER MILLENNIUM Creatinine 0.96 0.70 - 1.20 mg/dL CERNER MILLENNIUM Sodium 132(L) 135 - 145 mmol/L CERNER MILLENNIUM Potassium 3.1(L) 3.5 - 5.0 mmol/L CERNER MILLENNIUM Comment: Please note: ??Patients with WBC >100,000 may have falsely elevated Potassium levels. ??For accurate Potassium quantification in these patients send serum separator tube (gold top) for subsequent determinations. ??Contact the Clinical Chemistry Laboratory if there are any questions. Chloride 99 98 - 107 mmol/L CERNER MILLENNIUM Carbon Dioxide 21(L) 22 - 31 mmol/L CERNER MILLENNIUM Anion Gap 12 5 - 15 mmol/L CERNER MILLENNIUM Calcium 8.6 8.5 - 10.5 mg/dL CERNER MILLENNIUM Protein, Total 7.1 6.4 - 8.3 gm/dL CERNER MILLENNIUM Albumin 4.3 3.2 - 5.2 gm/dL CERNER MILLENNIUM Aspartate Aminotransferase 67(H) 0 - 30 unit/L [facility]ERNER MILLENNIUM Alanine Aminotransferase 59(H) 0 - 30 unit/L [facility]ERNER MILLENNIUM Alkaline Phosphatase 70 40 - 104 unit/L CERNER MILLENNIUM Bilirubin, Total 0.9 0.2 - 1.3 mg/dL CERNER MILLENNIUM Bilirubin, [...] at steady-state (unchanged within the past week). ??Patient age > = 18 years, and for Americans multiply eGFR by 1.2. At present, NKDEP does NOT recommend using [...] with diabetic kidney disease. References: http://nkdep.nih.gov/resources/NKDEP_Suggestn4Labs_0606_508.pdf http://www.kidney.org/professionals/kls/pdf/faq_gfr.pdf Blood specimen (specimen) 06/04/2010 11:19 AM EDT 06/04/2010 11:29 AM EDT Drew Heaton MD CHEMISTRY ORDERABLES CERNER MILLENNIUM * (ABNORMAL) CD4 (06/04/2010 11:19 AM EDT) CD3% 92(H) 55 - 82 % CERNER MILLENNIUM CD3 ABS 593(L) 731 - 2438 /mcl CERNER MILLENNIUM CD 4% 13(L) 35 - 61 % CERNER MILLENNIUM CD 4ABS 82(L) 503 - 1736 /mcl CERNER MILLENNIUM Comment: [...] CD4, CD8, CD19, CD16+56) Blood specimen (specimen) 06/04/2010 11:19 AM EDT 06/04/2010 11:29 AM EDT Drew Heaton MD HEMATOLOGY ORDERABLE S CERNER MILLENNIUM * (ABNORMAL) CBC (06/04/2010 11:19 AM EDT) White Blood Cell 3.4(L) 4.0 - 10.0 x10(3)/mc L CERNER MILLENNIUM Red Blood Cell 4.38 3.93 - 5.22 x10(6)/mc L CERNER MILLENNIUM Hemoglobin 14.6 11.2 - 15.7 gm/dL CERNER MILLENNIUM Hematocrit 41.0 34.0 - 45.0 % CERNER MILLENNIUM Mean Cell Volume 93.6 79.0 - 94.0 fL CERNER MILLENNIUM Mean Cell Hemoglobin 33.3(H) 26.6 - 32.2 pg CERNER MILLENNIUM Mean Cell Hemoglobin Concentration 35.6 32.0 - 36.5 gm/dL CERNER MILLENNIUM Platelet 88(L) 145 - 370 x10(3)/mc L CERNER MILLENNIUM RDW Standard Deviation 42.2 35.0 - 46.0 fL CERNER MILLENNIUM RDW coefficient of variation 12.4 10.9 - 14.4 % CERNER MILLENNIUM Mean Platelet Volume 10.3 9.0 - 12.0 fL CERNER MILLENNIUM Blood specimen (specimen) 06/04/2010 11:19 AM EDT 06/04/2010 11:29 AM EDT Drew Heaton MD HEMATOLOGY ORDERABLE S CERNER MILLENNIUM documented in this encounter Visit Diagnoses Diagnosis HIV disease Human immunodeficiency virus [HIV] disease Late menses Other disorder of menstruation and other abnormal bleeding from female genital tract documented in this encounter Care Teams Slot Floor Person Relationship Specialty Start Date End Date Husam Rosas MD [address] [place] [address] PCP - General 01/19/10 01/22/17 documented as of this encounter
--- OUTSIDE RECORDS SUMMARY | 2023-12-04 16:36 | XMS_ITS | Encounter Summary ---
Author Organization [facility] [place] [address] Care Team Providers Care Pharmacy Operations Specialist Name Role Phone Husam Rosas MD Primary Care Provider [phone] Encounter Details Date Type Department Care Team (Late Contact Info) Description 11/02/2010 Orders [place] [phone] Drew Heaton MD [facility] DR [place] [address] Social History Tobacco Use Types Packs/Day Years [...] 1:30 PM EST [place] [address] Satya Wills MD [facility] [place] [address] documented as of this encounter Visit Diagnoses Not on filedocumented in this encounter Care Teams Pharmacy Operations Specialist Relationship Specialty Start Date End Date Husam Rosas MD [address] [place] [address] PCP - General 01/19/10 01/22/17 documented as of this encounter
--- OUTSIDE RECORDS SUMMARY | 2023-12-04 16:36 | XMS_ITS | Encounter Summary ---
Author Organization [facility] Address [facility] [place] [address] Care Team Providers Care Geospatial Analyst Name Role Phone Husam Rosas MD Primary Care Provider [phone] Reason for Visit * Reason Onset Date Comments Advice Only 10/15/2010 Encounter Details Date Type Department Care Team (Late st Contact Info) Description 10/15/2010 [place] [phone] Cherry Roche MD [facility] [place] [address] Advice Only Social History Tobacco Use Types Packs/Day Years [...] encounter Miscellaneous Notes * Telephone Encounter - Cherry Roche - 10/15/2010 3:31 AM EDT TELEPHONE NOTE Date of call: 10/14/10 Time of call: 9pm Caller: patient Reason for call: She calls to report a generalized tonic clonic seizure 2 nights ago, of unclear duration but typical character per patient. States her last GTC seizure was in July. She was last evaluated by Elma on 10/01/10 with no changes in her medications at this time. She is currently managedon Vimpat and Lamictal. She states she took an extra Klonopin dose the night of the seizure. She end orses medication compliance. No recent fevers or illness. No recent trauma. States she still feels a bit fuzzy but is otherwise back to her baseline. Assessment and Plan: patient with a history of nocturnal seizures who continues to have breakthrough event, last 2 nights ago. No clear trigger in terms of febrile illness, trauma, or change in meds.Instructed patient to take 1/2 a 200mg mg Lamictal tablet tonight for an extra 100mg Lamictal coverage. She agreed to call Dr. Wills in the am to further discuss possible medication adjustment. documented in this encounter Plan of Treatment Upcoming Encounters Date Type Department Care Team (Late st Contact Info) Description 03/06/2024 1:30 PM EST [place] [address] Satya Wills MD [facility] [place] [address] documented as of this encounter Visit Diagnoses Not on filedocumented in this encounter Care Teams Geospatial Analyst Relationship Specialty Start Date End Date Husam Rosas MD [address] [place] [address] PCP - General 01/19/10 01/22/17 documented as of this encounter
--- OUTSIDE RECORDS SUMMARY | 2023-12-04 16:36 | XMS_ITS | Encounter Summary ---
Author Organization [facility] Address [facility] [place] [address] Care Team Providers Care Converter Supervisor Name Role Phone Sarah Alejo APRN Primary Care Provider [phone] Encounter Details Date Type Department Care Team (Late st Contact Info) Description 04/28/2010 Orders Only Gastroenterology at [facility] [address] Yolie Hermosillo MD [facility] [place] [address] Social History Tobacco Use Types Packs/Day Years [...] in a custodial (including now)? No 10/24/2022 Sex and Gender Information Value Date Recorded Sex Assigned at Not on file Gender Identity Not on file Sexual Orientation Not on file documented as of this encounter Plan of Treatment Upcoming Encounters Date Type Department Care Team (Late st Contact Info) Description 03/06/2024 1:30 PM EST [place] [address] Satya Wills MD [facility] [place] [address] documented as of this encounter Procedures Procedure Name Priority Date/Time Associated Diagnosis Comments SURGICAL PATHOLOGY REPORT Routine 04/28/2010 2:13 PM EST documented in this encounter Results * Surgical Pathology Report (04/28/2010 2:13 PM EST) Surgical Pathology Report [id number] ? Location: 4T The signing pathologist has (i) examined the relevant preparation(s) for the specimen(s) and (ii) rendered or confirmed the diagnosis(es). . ?Pathology Surgical Pathology Final Report Clinical Information Specimen Submitted: A - Polyp, ascending colon B - Polyp, transverse C - Polyp, prox descending D - Polyp, distal descending Clinical History: Pt with polyps on routine colo Clinical Diagnosis: F/U for polyps Gross Description A - Labeled/Fixativ e: Polyp ascending colon, formalin. Qty/Size/Weight : ?Ten, ranging from 0.2 cm to 0.4 cm in ?greatest dimension. Tissue Description: ?? Soft, argueta tissues. Sections/Proces sing: ??(T3) B - Labeled/Fixativ e: Polyp transverse, formalin. Qty/Size/Weight : ?Single, 0.3 x 0.2 x 0.1 cm. Tissue Description: ?? Soft, argueta tissue. Sections/Proces sing: ??(T1) C - Labeled/Fixativ e: Polyp prox descending, formalin. Qty/Size/Weight : ?Single, 0.4 x 0.3 x 0.25 cm. Tissue Description: ?? Soft, arugeta tissue. Sections/Proces sing: ??Bisected. ??(T1) D - Labeled/Fixativ e: Polyp distal descending, formalin. Qty/Size/Weight : ?Single, 0.3 x 0.3 x 0.15 cm. Tissue Description: ?? Soft, argueta-brown tissue. Sections/Proces sing: ??(T1) ??vms/CJL Microscopic Description Slides reviewed, microscopic description not recorded. Diagnosis Endoscopic biopsies - A. ??Tubular adenoma(s) (multiple fragments). B. ??Tubular adenoma. C. Tubular adenoma. D. Tubular adenoma. . Diagnosis CR-PX 04/30/10 AAS 04/30/10 Verified by: ? Adeel HALL, Seth Cruz ?Pathologist ?(Electronic Signature) The attending pathologist whose signature appears on this report has reviewed all diagnostic slides and has edited the gross and/or microscopic portion of the report in rendering the final pathologic diagnosis. [facility] 04/28/2010 2:13 PM EST Yolie Hermosillo MD PATHOLOGY/CYTOLOGY O RDERABLES [facility] documented in this encounter Visit Diagnoses Not on filedocumented in this encounter Care Teams Converter Supervisor Relationship Specialty Start Date End Date Sarah Alejo, SILK FOLDER [address] [place] [address] PCP - General Internal Medicine 11/06/19 documented as of this encounter
--- OUTSIDE RECORDS SUMMARY | 2023-12-04 16:36 | XMS_ITS | Encounter Summary ---
Author Organization [facility] [place] [address] Care Team Providers Care Integration Software Engineer Name Role Phone Husam Rosas MD Primary Care Provider +1 -[phone] Encounter Details Date Type Department Care Team (Late st Contact Info) Description 12/16/2009 [place] [address] Drew Heaton MD [facility] [place] [address] Social History Tobacco Use Types Packs/Day Years [...] PM EST Office [place] [id number] Satya Wills MD [facility] [place] [address] documented as of this encounter Procedures Procedure Name Priority Date/Time Associated Diagnosis Comments HIV QUANT Routine 12/16/2009 12:05 PM EDT HIV 1 GENOTYPING Routine 12/16/2009 12:0 5 PM EDT CD4 Routine 12/16/2009 12:05 PM EDT DIFFERENTIAL, AUTOMATED Routine 12/16/2009 12:05 PM EDT CBC (WITH DIFF) Routine 12/16/2009 12:05 PM EDT documented in this encounter Results * HIV 1 GENOTYPING-[place] (12/16/2009 12:05 PM EDT) HIV-1 Genotype ? HI ? Expected Test ? Result ??LO ??Units ??Values --------- HIV-1 Genotypic Drug ? INTERP ??Resistance, P Interpretation of following results: RESIST= Resistant SUSC= No evidence of resistance NE= Possible resistance IE= Insufficient evidence ??Reverse Transcriptase ?V90I mutation ?Mutations ??Abacavir ? SUSC ??Didanosine ? SUSC ??Lamivudine/Emtr icitabine ? SUSC ??Stavudine ?SUSC ??Tenofovir ?SUSC ??Zidovudine ? SUSC ??Efavirenz ?SUSC ??Etravirine ? SUSC ??Nevirapine ? SUSC ??Protease Mutations No relevant mutations detected ??Atazanavir ? SUSC ??Atazanavir with Ritonavir ?SUSC ??Darunavir with Ritonavir ? SUSC ??Fosamprenavir ?SUSC ??Fosamprenavir with Ritonavir ?? SUSC ??Indinavir ?SUSC ??Indinavir with Ritonavir ? SUSC ??Lopinavir with Ritonavir ? SUSC ??Nelfinavir ? SUSC ??Saquinavir with Ritonavir ?SUSC ??Tipranavir with Ritonavir ?SUSC Testing was performed by RT-PCR and DNA sequencing method ([employer] HIV-1 Genotyping Kit; [employer] and results were based on [facility]'s most recent FDA-approved interpretive guidelines. Results obtained by different assay methods should not be used interchangeably. Test Performed by: [facility] Dpt of Lab Med and Pathology [address] [place] [address] Carton Stamper: Greg Frazier III, M.D. CERNER MILLENNIUM Blood specimen (specimen) 12/16/2009 12:05 PM EDT 12/18/2009 4:20 PM EDT Drew Heaton MD LAB SEND OUT ORDERAB LES [facility] * REFLEX LAB-HIV QUANT (12/16/2009 12:05 PM EDT) Pathologist [facility] HIV Viral Load Result (Qualitative) RESULT: 1512 copies/mL INTERPRETATION: The result of this analysis [...] Administration. Robert Fuentes, Ph.D. Director, Molecular Pathology [facility] Comment: [VERIFIED DATE]12.18.09 Verified By:Brooke Lenz (Electronic Signature) Blood specimen (specimen) 12/16/2009 12:05 PM EDT 12/17/2009 9:13 AM EDT Drew Heaton MD HEMATOLOGY ORDERABLE S [facility] * (ABNORMAL) CD4 (12/16/2009 12:05 PM EDT) [facility] CD3% 89(H) 55 - 82 % [facility] CD3 ABS 1464 731 - 2438 /mcl [facility] CD 4% 14(L) 35 - 61 % CERNER MILLENNIUM CD 4ABS 231(L) 503 - 1736 /mcl [facility] Comment: This assay is a dual platform [...] CD4, CD8, CD19, CD16+56) Blood specimen (specimen) 12/16/2009 12:05 PM EDT 12/16/2009 12:31 PM EDT Drew Heaton MD HEMATOLOGY ORDERABLE S CERNER MILLENNIUM * REFLEX LAB-A-DIFF (12/16/2009 12:05 PM EDT) Neutrophil % 70.8 34.0 - 71.0 % CERNER MILLENNIUM Neutrophil Absolute 5.54 1.50 - 6.30 x10(3)/mcL CERNER MILLENNIUM Lymph % 21.2 19.0 - 53.0 % CERNER MILLENNIUM Lymphocytes Abs 1.7 1.0 - 3.6 x10(3)/mcL CERNER MILLENNIUM Monocyte % 7.0 4.0 - 13.0 % CERNER MILLENNIUM Monocyte Abs 0.6 0.2 - 1.0 x10(3)/mcL CERNER MILLENNIUM Eos % 0.4 0.0 - 7.0 % CERNER MILLENNIUM Eosinophils Abs 0.0 0.0 - 0.5 x10(3)/mcL CERNER MILLENNIUM Basophil % 0.3 0.0 - 2.0 % CERNER MILLENNIUM Baso Absolute 0.0 0.0 - 0.2 x10(3)/mcL CERNER MILLENNIUM Immature Gran % 0.30 0.00 - 0.66 % CERNER MILLENNIUM Comment: Immature granulocytes(IG's)percentage and absolute count will include metamyelocytes, myelocytes, and promyelocytes. Blood smears from CBC's yielding IG's will be scanned manually for concordance. If this scan disagrees with the automated IG or if promyelocytes are noted, a manual differential will be performed. Immature Gran Absolute 0.02 0.00 - 0.05 x10(3)/mcL CERNER MILLENNIUM Blood specimen (specimen) 12/16/2009 12:05 PM EDT 12/16/2009 12:31 PM EDT Drew Heaton MD HEMATOLOGY ORDERABLE S [facility] * (ABNORMAL) CBC (12/16/2009 12:05 PM EDT) White Blood Cell 7.8 4.0 - 10.0 x10(3)/mc L CERNER MILLENNIUM Red Blood Cell 4.46 3.93 - 5.22 x10(6)/mc L CERNER MILLENNIUM Hemoglobin 15.2 11.2 - 15.7 gm/dL CERNER MILLENNIUM Hematocrit 43.6 34.0 - 45.0 % CERNER MILLENNIUM Mean Cell Volume 97.8(H) 79.0 - 94.0 fL CERNER MILLENNIUM Mean Cell Hemoglobin 34.1(H) 26.6 - 32.2 pg CERNER MILLENNIUM Mean Cell Hemoglobin Concentration 34.9 32.0 - 36.5 gm/dL CERNER MILLENNIUM Platelet 171 145 - 370 x10(3)/mc L CERNER MILLENNIUM RDW Standard Deviation 42.2 35.0 - 46.0 fL CERNER MILLENNIUM RDW coefficient of variation 11.9 10.9 - 14.4 % CERNER MILLENNIUM Mean Platelet Volume 9.5 9.0 - 12.0 fL CERNER MILLENNIUM Blood specimen (specimen) 12/16/2009 12:05 PM EDT 12/16/2009 12:31 PM EDT Drew Heaton MD HEMATOLOGY ORDERABLE S [facility] documented in this encounter Visit Diagnoses Not on filedocumented in this encounter Care Teams Integration Software Engineer Relationship Specialty Start Date End Date Husam Rosas MD [address] [place] [address] PCP - General 01/19/10 01/22/17 documented as of this encounter
--- OUTSIDE RECORDS SUMMARY | 2023-12-04 16:36 | XMS_ITS | Encounter Summary ---
Author Organization [facility] Address [facility] [place] [address] Care Team Providers Care Assistant Credit Manager Name Role Phone Husam Rosas MD Primary Care Provider +1 -[phone] Encounter Details Date Type Department Care Team (Late st Contact Info) Description 03/17/2010 11:30 AM EST [place] [address] Drew Heaton MD [facility] [place] [address] Discharge Disposition: Home Social History Tobacco Use [...] 1:30 PM [place] [address] Satya Wills MD [facility] [place] [address] documented as of this encounter Procedures Procedure Name Priority Date/Time Associated Diagnosis Comments HIV QUANT Routine 03/17/2010 12:08 PM EST HIV 1 GENOTYPING Routine 03/17/2010 12:0 8 PM EST documented in this encounter Results * HIV 1 GENOTYPING-[place] (03/17/2010 12:08 PM EST) HIV-1 Genotype ? [place] ? Expected Test ? Result ??LO ??Units ??Values --------- HIV-1 Genotypic Drug ? INTERP ??Resistance, P Interpretation of following results: RESIST= Resistant SUSC= No evidence of resistance IN= Possible resistance IE= Insufficient evidence ??Reverse Transcriptase ?Mutations No relevant mutations detected ??Abacavir ? SUSC ??Didanosine ? SUSC ??Lamivudine/Emtr [...] performed by RT-PCR and DNA sequencing method ([employer] HIV-1 Genotyping Kit; [employer] and results were based on [facility]- 's most recent FDA-approved interpretive guidelines. Results obtained by different assay methods should not be used interchangeably. Test Performed by: [facility] Dpt of Lab Med and Pathology [address] [place] [address] Billposter: Greg Frazier III, M.D. [facility] Blood specimen (specimen) 03/17/2010 12:08 PM EST 03/17/2010 1:14 PM EST Drew Heaton MD LAB SEND OUT ORDERAB LES [facility] * REFLEX LAB-HIV QUANT (03/17/2010 12:08 PM EST) HIV Viral Load Result (Qualitative) RESULT: 4193 copies/mL INTERPRETATION: The result of this analysis [...] Administration. Robert Fuentes, Ph.D. Director, Molecular Pathology [facility] Comment: [VERIFIED DATE]03.19.10 Verified By:Constance Hightower (Electronic Signature) Blood specimen (specimen) 03/17/2010 12:08 PM EST 03/18/2010 11:09 AM EST Drew Heaton MD HEMATOLOGY ORDERABLE S [facility] documented in this encounter Visit Diagnoses Not on filedocumented in this encounter Care Teams Assistant Credit Manager Relationship Specialty Start Date End Date Husam Rosas MD [address] [place] [address] PCP - General 01/19/10 01/22/17 documented as of this encounter
--- OUTSIDE RECORDS SUMMARY | 2023-12-04 16:36 | XMS_ITS | Encounter Summary ---
Author Organization [facility] [place] [address] Care Team Providers Care Software Engineer Name Role Phone Husam Rosas MD Primary Care Provider [phone] -[phone] Reason for Visit * Reason Onset Date Comments Prior Authorization 10/04/2010 Encounter Details Date Type Department Care Team (Late Contact Info) Description 10/04/2010 [place] [address] Jayla Neumann RN [address] [address] Prior Authorization Social History Tobacco Use Types Packs/Day Years [...] encounter Miscellaneous Notes * Telephone Encounter - Jayla Neumann RN - 10/04/2010 9:38 AM EDT Prior Authorization Medication Lyrica 50 mg Insurance Co: [employer] D [phone] Pt ID #: [id number] Provider: Satya Wills Diagnosis: Epilepsy, migraine Approval : at least 10/09 Pharmacy: Clarissa [facility] [phone] documented in this encounter Plan of Treatment Upcoming Encounters Date Type Department Care Team (Late Contact Info) Description 03/06/2024 1:30 PM EST Office [place] [address] Satya Wills MD [facility] [place] [address] documented as of this encounter Visit Diagnoses Not on filedocumented in this encounter Care Teams Software Engineer Relationship Specialty Start Date End Date Husam Rosas MD [address] [place] [address] PCP - General 01/19/10 01/22/17 documented as of this encounter
--- OUTSIDE RECORDS SUMMARY | 2023-12-04 16:36 | XMS_ITS | Encounter Summary ---
Author Organization [facility] [address] Care Team Providers Care Flooring Machine Operator Name Role Phone Husam Rosas MD Primary Care Provider +1 -[phone] Encounter Details Date Type Department Care Team (Late st Contact Info) Description 09/09/2010 Abstract [place] [address] Manuela De Jesus RN Social History Tobacco Use Types Packs/Day [...] 1:30 PM EST [place] [address] Satya Wills MD [facility] [place] [address] documented as of this encounter Visit Diagnoses Not on filedocumented in this encounter Care Teams Flooring Machine Operator Relationship Specialty Start Date End Date Husam Rosas MD [address] [place] [address] PCP - General 01/19/10 01/22/17 documented as of this encounter
--- OUTSIDE RECORDS SUMMARY | 2023-12-04 16:36 | XMS_ITS | Encounter Summary ---
Author Organization [facility] [place] [address] Care Team Providers Care Jai Alai Player Name Role Phone Husam Rosas MD Primary Care Provider +1 -[phone] Encounter Details Date Type Department Care Team (Late Contact Info) Description 02/16/2010 4:30 PM EST Follow-[place] [address] Yolie Hermosillo MD [facility] [place] [address] Discharge Disposition: Home Social History Tobacco Use [...] 1:30 PM EST [place] [address] Satya Wills MD [facility] [place] [address] documented as of this encounter Visit Diagnoses Not on filedocumented in this encounter Care Teams Jai Alai Player Relationship Specialty Start Date End Date Husam Rosas MD [address] [place] [address] PCP - General 01/19/10 01/22/17 documented as of this encounter
--- OUTSIDE RECORDS SUMMARY | 2023-12-04 16:36 | XMS_ITS | Encounter Summary ---
Author Organization [facility] Address [facility] [place] [address] Care Team Providers Care Cd Storage And Materials Make Up Helper Name Role Phone Husam Rosas MD Primary Care Provider +1 -[phone] Encounter Details Date Type Department Care Team (Latest Contact Info) Description 02/16/2010 4:59 PM EST - 02/16/2010 11:59 PM EST Hospital [place] [address] Drew Heaton MD [facility] [place] [address] Discharge Disposition: Home Social History Tobacco Use [...] 1:30 PM [place] [address] Satya Wills MD [facility] [place] [address] documented as of this encounter Visit Diagnoses Not on filedocumented in this encounter Care Teams Cd Storage And Materials Make Up Helper Relationship Specialty Start Date End Date Husam Rosas MD [address] [place] [address] PCP - General 01/19/10 01/22/17 documented as of this encounter
--- OUTSIDE RECORDS SUMMARY | 2023-12-04 16:36 | XMS_ITS | Encounter Summary ---
Author Organization [facility] [place] [address] Care Team Providers Care Slider Assembler Name Role Phone Husam Rosas MD Primary Care Provider +1 -[phone] Encounter Details Date Type Department Care Team (Late Contact Info) Description 09/28/2010 [place] [address] Satya Wills MD [facility] [place] [address] Social History Tobacco Use Types Packs/Day Years [...] 1:30 PM EST Office [place] [address] Satya Wills MD [facility] [place] [place] [address] documented as of this encounter Visit Diagnoses Not on filedocumented in this encounter Care Teams Slider Assembler Relationship Specialty Start Date End Date Husam Rosas MD [address] [place] [id number] PCP - General 01/19/10 01/22/17 documented as of this encounter
--- OUTSIDE RECORDS SUMMARY | 2023-12-04 16:36 | XMS_ITS | Encounter Summary ---
Author Organization [facility] [place] [address] Care Team Providers Care Hot Car Charger Name Role Phone Husam Rosas MD Primary Care Provider +1 -[phone] Encounter Details Date Type Department Care Team (Late st Contact Info) Description 06/01/2010 [place] [address] Satya Wills MD [facility] [place] [address] Social History Tobacco Use Types Packs/Day Years [...] 1:30 PM [place] [address] Satya Wills MD [facility] [place] [address] documented as of this encounter Visit Diagnoses Not on filedocumented in this encounter Care Teams Hot Car Charger Relationship Specialty Start Date End Date Husam Rosas MD [address] [place] [address] PCP - General 01/19/10 01/22/17 documented as of this encounter
--- OUTSIDE RECORDS SUMMARY | 2023-12-04 16:36 | XMS_ITS | Encounter Summary ---
Author Organization [facility] Address [facility] [place] [address] Care Team Providers Care Conveyor Line Battery Charger Name Role Phone Husam Rosas MD Primary Care Provider [phone] Reason for Visit * Reason Comments Follow-up Encounter Details Date Type Department Care Team (Late st Contact Info) Description 12/31/2010 9:00 AM EDT Follow-[place] [address] Rosa Salmon MD [facility] [place] [address] HIV disease (Primary Dx); Pyoderma Discharge Disposition: Home Social History Tobacco Use [...] Sign Reading Time Taken Comments Blood Pressure 133/81 12/31/2010 8:47 AM EDT Pulse 76 12/31/2010 8:47 AM EDT Temperature 36.7 ??C (98.1 ??F) 12/31/2010 8:47 AM ED T Respiratory Rate 12 12/31/2010 8:47 AM EDT Oxygen Saturation 97% 12/31/2010 8:47 AM EDT Inhaled Oxygen Concentration - - Weight 98 kg (216 lb) 12/31/2010 8:47 AM EDT Height 168.9 cm (5' 6.5) 12/31/2010 8:47 AM EDT Body Mass Index 34.34 12/31/2010 8:47 AM EDT documented in this encounter Progress Notes * Rosa Salmon MD - 12/31/2010 10:40 AM EDT This is a scheduled appointment for an HIV infected woman last seen by me in clinic three months ago, since when she has done well save for ongoing seizures (though these have been less frequent thanusual) and for the last month recurrent cutaneous lesions - these start as vessicles up to an inch across, which then burst leaving an ulcer which resolve over many days; she has had these on hands, legs, arms and face. Blood pressure 133/81, pulse 76, temperature 36.7 ??C (98.1 ??F), temperature source Oral, resp. rate 12, height 168.9 cm (5' 6.5), weight 97.977 kg (216 lb), SpO2 97.00%. Overweight woman in no apparent distress. NC/AT. EOMI. Skin without rash but with 2 cm vessicle on right hand (base of 5th finger) and with multiple shallow, healing ulcers scattered on peripheries. Throat benign. Heart RRR no m/r/g. Lungs CTA. Abdomen benign. Neuro. grossly nonfocal. Labs: 10/01/2010 189 (10%), HIV PCR 1,548 Assessment and Plan: 1. HIV. Was doing well on current regimen after addition of tenofovir, but with persistent elevatedviral load, unremarkable genotype in February, and h/o not taking RTV. She has now again been on the correct regimen for 6 months, so will recheck viral load today. Phenotype 10/01/10 again withoutresistance. Labs for safety and efficacy every 3-4 months (including today) as long as all goes well. 2. Adherence. She states that she has been 100% adherent since last seen, and I reinforced the importance of remaining so. 3. Chemoprophylaxis. Started on Bactrim in February given CD4<200. 4. Immunoprophylaxis. Up to date. [...] recurrence. 14. General health care. Mammogram 05/06 normal. Colonoscopy 03/09 revealed multiple polyps so will repeat in three years (2013). 15. Skin lesions. Culture of nares today, with subsequent tx of SA if positive. If no response thenrefrral to Dermatology. 30 minutes rsim-py-cgas time spent with the patient, 20 minutes of which was in discussion and counseling about management of HIV. Follow-up in 3-4 months. documented in this encounter Plan of Treatment Upcoming Encounters Date Type Department Care Team (Late st Contact Info) Description 03/06/2024 1:30 PM EST Office [place] [address] Satya Wills MD [facility] [place] [address] documented as of this encounter Procedures Procedure Name Priority Date/Time Associated Diagnosis Comments MRSA CULTURE ([facility]/CGP/APD/NLH) Routine 12/31/2010 12:00 PM EDT Pyoderma HIV QUANT Routine 12/31/2010 10:19 AM EDT CD4 Routine 12/31/2010 10:19 AM EDT HIV disease DIFFERENTIAL, AUTOMATED Routine 12/31/2010 10:19 AM EDT SYPHILIS ANTIBODY SCREEN WITH REFLEX Routine 12/31/2010 10:19 AM EDT HIV disease CBC (WITH DIFF) Routine 12/31/2010 10:19 AM EDT HIV disease COMPREHENSIVE METABOLIC PANEL Routine 12/31/2010 10:19 AM EDT HIV disease HIV-1 RNA, QUANTITATIVE, PCR Routine 12/31/2010 10:13 AM EDT HIV disease documented in this encounter Results * Staph aureus/MRSA Culture Screen Nasal (12/31/2010 12:00 PM EDT) Staphylococcus Screening Culture ? Patient Name: ANNIE PACHECO ?Ordered By: ROSA SALMON ? MR#: [id number] ?LOC: ??5C ? /Sex: ??1955 (55 years), ? Female ? PROCEDURE: Staphylococcus Screening Culture ?SOURCE: Nasal ? COLLECTED: 12/31/2010 12:00 ? STARTED: 12/31/2010 12:21 ? FINAL REPORT ? Final Report ? Verified:01/03/20 11 12:09 ? No Staphylococcus aureus isolated ? PRELIMINARY REPORT ? Preliminary Report ? Verified:01/02/20 11 11:49 ? No Staphylococcus aureus isolated to date ? CERNER MILLENNIUM Specimen from nose (specimen) 12/31/2010 12:00 PM EDT 12/31/2010 12:20 PM EDT Rosa Salmon MD MICROBIOLOGY - GENER AL ORDERABLES CERJANIYA SEBASTIANIUM * DIFFERENTIAL, AUTOMATED (12/31/2010 10:19 AM EDT) Neutrophil % 49.0 34.0 - 71.0 % CERNER MILLENNIUM Neutrophil Absolute 3.58 1.50 - 6.30 x10(3)/mcL CERNER MILLENNIUM Lymph % 41.0 19.0 - 53.0 % CERNER MILLENNIUM Lymphocytes Abs 3.0 1.0 - 3.6 x10(3)/mcL CERNER MILLENNIUM Monocyte % 7.1 4.0 - 13.0 % CERNER MILLENNIUM Monocyte Abs 0.5 0.2 - 1.0 x10(3)/mcL CERNER MILLENNIUM Eos % 2.1 0.0 - 7.0 % CERNER MILLENNIUM Eosinophils Abs 0.2 0.0 - 0.5 x10(3)/mcL CERNER MILLENNIUM Basophil % 0.5 0.0 - 2.0 % CERNER MILLENNIUM Baso [...] 0.05 x10(3)/mcL CERNER MILLENNIUM Blood specimen (specimen) 12/31/2010 10:19 AM EDT 12/31/2010 10:25 AM EDT Rosa Salmon MD HEMATOLOGY ORDERABLE S CHIARA CLIFFORD * HIV QUANT (12/31/2010 10:19 AM EDT) HIV Viral Load Result (Qualitative) * RESULT: 332 copies/mL * INDICATION FOR STUDY: HIV-1 Infection [...] Administration. Robert Fuentes, Ph.D. Director, Molecular Pathology [facility] Comment: [VERIFIED DATE]01.05.11 Verified By:Fely Werner I (Electronic Signature) Blood specimen (specimen) 12/31/2010 10:19 AM EDT 01/04/2011 10:14 AM EST Rosa Salmon MD HEMATOLOGY ORDERABLE S Performing Organization Address [facility] [address]/[facility] de Phone Number [facility] * Syphilis Antibody, IgG (12/31/2010 10:19 AM EDT) Pathologist [facility] Syphilis IgG Negative Negative [facility] Blood specimen (specimen) 12/31/2010 10:19 AM EDT 01/03/2011 7:06 AM EST Rosa Salmon MD CHEMISTRY ORDERABLES Performing Organization Address [facility] [address]/[facility] de Phone Number [facility] * (ABNORMAL) Comprehensive metabolic panel (non-fasting) (12/31/2010 10:19 AM EDT) Pathologist [facility] Glucose 113 60 - 199 mg/dL [facility] Comment:Diabetes: >=200 mg/d L plus symptoms Blood Urea Nitrogen 9 8 - 18 mg/dL [facility] Creatinine 0.95 0.70 - 1.20 mg/dL [facility] Sodium 139 135 - 145 mmol/L [facility] Potassium 4.4 3.5 - 5.0 mmol/L [facility] Comment: Please note: ??Patients with WBC >100,000 may have falsely elevated Potassium levels. ??For accurate Potassium quantification in these patients send serum separator tube (gold top) for subsequent determinations. ??Contact the Clinical Chemistry Laboratory if there are any questions. Chloride 102 98 - 107 mmol/L CERNER MILLENNIUM Carbon Dioxide 28 22 - 31 mmol/L CERNER MILLENNIUM Anion Gap 9 5 - 15 mmol/L CERNER MILLENNIUM Calcium 10.0 8.5 - 10.5 mg/dL CERNER MILLENNIUM Protein, Total 7.6 6.4 - 8.3 gm/dL CERNER MILLENNIUM Albumin 4.6 3.2 - 5.2 gm/dL CERNER MILLENNIUM Aspartate Aminotransferase 40(H) 0 - 30 unit/L CERNER MILLENNIUM Alanine [...] past week). For patients multiply eGFR by 1.2.MDRD equation has not been validated for pediatric patients and is only valid for patients with age >= 18 years. At present, NKDEP does NOT recommend using [...] disease. References: http://nkdep.nih.gov/resources/NKDEP_Suggestn4Labs_0606_508.pdf http://www.kidney.org/professionals/kls/pdf/faq_gfr.pdf Blood specimen (specimen) 12/31/2010 10:19 AM EDT 12/31/2010 10:25 AM EDT Rosa Salmon MD CHEMISTRY ORDERABLES CERNER MILLENNIUM * (ABNORMAL) CBC (with Diff) (12/31/2010 10:19 AM EDT) White Blood Cell 7.3 4.0 - 10.0 x10(3)/mc L CERNER MILLENNIUM Red Blood Cell 4.47 3.93 - 5.22 x10(6)/mc L CERNER MILLENNIUM Hemoglobin 15.9(H) 11.2 - 15.7 gm/dL CERNER MILLENNIUM Hematocrit 45.0 34.0 - 45.0 % CERNER MILLENNIUM Mean Cell Volume 100.7(H) 79.0 - 94.0 fL CERNER MILLENNIUM Mean Cell Hemoglobin 35.6(H) 26.6 - 32.2 pg CERNER MILLENNIUM Mean Cell Hemoglobin Concentration 35.3 32.0 - 36.5 gm/dL CERNER MILLENNIUM Platelet 156 145 - 370 x10(3)/mc L CERNER MILLENNIUM RDW Standard Deviation 45.0 35.0 - 46.0 fL CERNER MILLENNIUM RDW coefficient of variation 12.4 10.9 - 14.4 % CERNER MILLENNIUM Mean Platelet Volume 9.8 9.0 - 12.0 fL CERNER MILLENNIUM Blood specimen (specimen) 12/31/2010 10:19 AM EDT 12/31/2010 10:25 AM EDT Rosa Salmon MD HEMATOLOGY ORDERABLE S CERNER MILLENNIUM * (ABNORMAL) CD4 (12/31/2010 10:19 AM EDT) CD3% 92(H) 55 - 82 % CERNER MILLENNIUM CD3 ABS 2763(H) 731 - 2438 /mcl CERNER MILLENNIUM CD 4% 11(L) 35 - 61 % CERNER MILLENNIUM CD 4ABS 318(L) 503 - 1736 /mcl CERNER MILLENNIUM Comment: [...] CD4, CD8, CD19, CD16+56) Blood specimen (specimen) 12/31/2010 10:19 AM EDT 12/31/2010 10:25 AM EDT Rosa Salmon MD HEMATOLOGY ORDERABLE S Performing Organization Address City/State/[facility] Co de Phone Number CHIARA CLIFFORD documented in this encounter Visit Diagnoses Diagnosis HIV disease- Primary Human immunodeficiency virus [HIV] disease Pyoderma Pyoderma, unspecified documented in this encounter Care Teams Conveyor Line Battery Charger Relationship Specialty Start Date End Date Husam Rosas MD [address] [place] [address] PCP - General 01/19/10 01/22/17 documented as of this encounter
--- OUTSIDE RECORDS SUMMARY | 2023-12-04 16:36 | XMS_ITS | Encounter Summary ---
Author Organization [facility] [place] [address] Care Team Providers Care Heel Seat Fitter Machine Name Role Phone Husam Rosas MD Primary Care Provider [phone] Reason for Visit * Reason Onset Date Comments Medication Refill 11/02/2010 Encounter Details Date Type Department Care Team (Late st Contact Info) Description 11/02/2010 [place] [id number] Drew Heaton MD [facility] [address] [place] [address] HIV (human immunodeficiency virus infection) (Primary Dx) [...] Encounter - Suzie Mars RN - 11/02/2010 2:11 PM EDT Pharmacy requests new prescription for Epzicom documented in this encounter Plan of Treatment Upcoming Encounters Date Type Department Care Team (Late st Contact Info) Description 03/06/2024 1:30 PM EST [place] [address] Satya Wills MD [facility] [place] [address] documented as of this encounter Visit Diagnoses Diagnosis HIV (human immunodeficiency virus infection)- Primary Asymptomatic human immunodeficiency virus (HIV) infection status documented in this encounter Care Teams Heel Seat Fitter Machine Relationship Specialty Start Date End Date Husam Rosas MD [address] [facility] [place] [place] [address] PCP - General 01/19/10 01/22/17 documented as of this encounter
--- OUTSIDE RECORDS SUMMARY | 2023-12-04 16:36 | XMS_ITS | Encounter Summary ---
Author Organization [facility] Address [facility] [place] [address] Care Team Providers Care Soil Sort Worker Name Role Phone Sarah Alejo EZRA Primary Care Provider [phone] Encounter Details Date Type Department Care Team (Late st Contact Info) Description 12/06/2006 Orders Only Neurosurgery at [facility] [place] [address] Ildefonso Ryan MD Social History Tobacco Use Types Packs/Day Years [...] place to sleep or slept in a detention (including now)? No 10/24/2022 Sex and Gender Information Value Date Recorded Sex Assigned at Not on file Gender Identity Not on file Sexual Orientation Not on file documented as of this encounter Plan of Treatment Upcoming Encounters Date Type Department Care Team (Late st Contact Info) Description 03/06/2024 1:30 PM EST Office Visit Neurology at [facility] [place] [address] Satya Wills MD [facility] [place] [address] documented as of this encounter Procedures Procedure Name Priority Date/Time Associated Diagnosis Comments SURGICAL PATHOLOGY REPORT Routine 12/06/2006 7:12 PM EDT documented in this encounter Results * Surgical Pathology Report (12/06/2006 7:12 PM EDT) Surgical Pathology Report [id number] ? Location: [facility]; [facility]; B The signing pathologist has (i) examined the relevant preparation(s) for the specimen(s) and (ii) rendered or confirmed the diagnosis(es). . ?Pathology Surgical Pathology Final Report Clinical Information Specimen Submitted: A - Anterio-Lateral Temporal lobe: Right brain B - Right amygdala: Right brain C - Hippocampus: Brain Clinical Diagnosis: Epilepsy Gross Description A - Labeled/Fixative: Anterolateral temporal lobe, right brain; fresh. Qty/Size/Weight: ?One, 4.0 x 3.0 x 1.5 cm. Tissue Description: ?? Piece of brain tissue with meningeal vessels, gyri, ?and sulci identified. ??Soft with identifiable clarke ?and white matter. Sections/Processing: ??Molding Manager cross sections submitted. ??(R3) B - Labeled/Fixative: Right amygdala, right brain; fresh. Qty/Size/Weight: ?One, 1.0 x 0.6 x 0.4 cm. Tissue Description: ?? Soft tissue. Sections/Processing: ??Bisected. ??(T1) C - Labeled/Fixative: Hippocampus, brain; fresh. Qty/Size/Weight: ?One, 2.5 x 1.1 x 0.8 cm. Tissue Description: ?? Soft, white tissue with focal hemorrhage. ??Sections ?show layers of white-brown tissue. Sections/Processing: ??The specimen is sectioned along long axis into seven ?sections. ??(T1) ??aje/HC Microscopic Description Specimen A consists of neocortex and subcortical white matter with widening of the sulci suggesting the possibility of cortical atrophy. ??No significant inflammation is identified in the specimen; specifically, no convincing examples of the microglial nodules often seen in HIV encephalopathy are identified. ??No other lesions or cytoarchitectural abnormalities, which would account for this patient's epilepsy, are identified in the specimen. ??A Bielschowsky's stain done because of the question of atrophy shows no histologic evidence of Alzheimer's disease. Specimen B consists of neuroglial tissue without any diagnostic cytoarchitectural or histologic abnormalities. Specimen C consists of hippocampus and adjacent neocortex with a dramatic loss of large pyramidal neurons throughout much of the hippocampus and some relative sparing in a region roughly corresponding to CA2. Immunohistochemistry Studies: Formalin-fixed, paraffin-embedded tissue sections are studied using the Avidin-Biotin Complex Technique with appropriate positive and negative controls. Block ? Antibody ?Result ( Positive / Negative ) A3 ? Leukocyte common antigen ?? Positive in scattered meningeal and ?perivascular lymphocytes B1 ? Leukocyte common antigen ?? Positive in scattered perivascular and . Microscopic Description ?intraparencymal lymphocytes; positive ?in microglia. ? GFAP ? Positive in reactive astrocytes These immunohistochemical studies provide ancillary information and are used only in conjunction with standard diagnostic procedures. An immunohistochemical stain for leucocyte common antigen highlights in scattered meningeal and perivascular lymphocytes in the neocortex (specimen A). In the amygdala (specimen B) that stain highlights a few perivascular and scattered intraparenchymal lymphocytes as well as numerous microglia. A stain for glial fibrillary acidic protein stains astrocytes with early reactive changes. However no convincing examples of microglial nodules are identified. Diagnosis A - Anterolateral temporal lobe: ?Neocortex and white matter, no specific diagnosis. B - Right amygdala: ?Neuroglial tissue, no specific diagnosis. 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 CR-0 12/11/06 G[facility]O 12/19/06 Verified by: ? C. Catarina Elizabeth MD, PhD ?Pathologist ?(Electronic Signature) The attending pathologist whose signature appears on this report has reviewed all diagnostic slides and has edited the gross and/or microscopic portion of the report in rendering the final pathologic diagnosis. Comment I understand that this patient has been followed here for many years for her HIV infection. The mild inflammatory changes seen in these specimens are not diagnostic of an early HIV encephalitis, but they are worrisome if there is good clinical evidence to support that diagnosis. [facility] 12/06/2006 7:12 PM EDT Ildefonso Ryan MD PATHOLOGY/CYTOLOGY O [facility] documented in this encounter Visit Diagnoses Not on filedocumented in this encounter Care Teams Soil Sort Worker Relationship Specialty Start Date End Date Sarah Alejo, ORTHOPAEDIC TECHNOLOGIST [address] [place] [address] PCP - General Internal Medicine 11/06/19 documented as of this encounter
--- OUTSIDE RECORDS SUMMARY | 2023-12-04 16:36 | XMS_ITS | Clinical Summary ---
Author Organization [facility] Address [address] [place] [address] Care Team Providers Care Flower Grader Name Role Phone Sarah Alejo AUDIO DIRECTOR Primary Care Provider [phone] Allergies No known active allergies Medications Medication Sig Dispensed Refills Start Date End Date Status clonazePAM (KLONOPIN) 1 mg tablet Take 1 mg by mouth 2 times daily. Active sulfamethoxazole-trime thoprim (BACTRIM) 200-40 mg/5 mL suspension Take 10 mL by mouth daily. 300 mL 11 10/21/2019 Active sulfamethoxazole-trime thoprim (BACTRIM) 200-40 mg/5 mL suspension Take 10 mL by mouth daily. 300 mL 5 10/21/2019 Active lacosamide (VIMPAT) 10 mg/mL oral solution Take 150 mg by mouth 2 times daily. Active hydrOXYzine (ATARAX) 10 mg/5 mL syrup Take 25 mg by mouth 3 times daily. PRN Anxiety Active Multivitamins with Iron tablet Take 1 Tablet by mouth daily. 01/20/2020 Active CYANOCOBALAMIN, VITAMIN B-12, ORAL Take by mouth. Ac tive potassium chloride (KAYCIEL) 20 mEq/15 mL oral solution Take 15 mL by mouth 2 times daily. 11/14/2022 Active cabotegravir-rilpiviri ne (CABENUVA) 600 mg/3 mL- 900 mg/3 mL injectable suspensionIndications: Symptomatic HIV infection (HCC-CMS) Inject 6 mL into the muscle every 8 weeks. 6 mL 7 07/03/2023 Active Active Problems Problem Noted Date Diagnosed Date HIV (human immunodeficiency virus infection) ( C-CMS) 05/15/2023 Encounters Date Type Department Care Team Description 10/10/2023 Specialty Pharmacy [facility] [address] [place], [place] [address] Michael Herrera Neris Refill Coordination Outreach for HIV 09/25/2023 9:30 EDT Telemedicine [facility] Infectious Disease - [address] [address] Antony Myers, AIDS (acquired immune deficiency syndrome) ([facility]) (Primary Dx) from Last 3 Months Immunizations Name Administration Dates Next Due Covid-19 mRNA Booster Vaccin e (MODERNA COVID-19 BOOSTER) PF 0.5 mL IM (18 yrs+) 10/28/2020 Covid-19 mRNA Vaccine (MODER NA COVID-19) PF 0.5 ml IM (12 yrs+) 07/06/2020,06/08/2020 Historical DTaP Vaccine, Unspecified 10/03/2008 Historical Hepatitis B Vacci ne, Unspecified 12/25/2002,06/17/2002 Historical Pneumococcal Vacc ine, Unspecified 09/16/2009 Influenza Vaccine Quad (AFLU FINA) PF 0.5 ml IM (3 yrs+) 11/11/2019,12/25/2018,10/06/2016,02/08,03/28/2014,11/16/2012,02/10/2012 ,12/16/2009,01/17/2007,12/25/2005,01/28,12/25/2002 Pneumococcal Conjugate Vacci ne 13-Valent (PCV13) (PREVNAR-13) 0.5 mL IM (6 wks+) 03/02/2012 Pneumococcal Polysaccharide (PPSV23) Vaccine (PNEUMOVAX-23) =>2YO SQ/IM 02/27/2003,12/25/2002 Td (Adult) 5 Lf Vaccine (TEN IVAC) Preservative Free =>7yo IM 06/14/2018 Social History Tobacco Use Types Packs/Day Years Used Date Smoking Tobacco: Every Day Cigarettes Smokeless Tobacco: Never Tobacco Cessation:Ready to Q uit: No; Counseling Given: Yes Alcohol Use Standard Drinks/Week Comments Yes 0 (1 standard drink = 0.6 oz pur e alcohol) 2 beers per week Interpersonal Safety Answer Date Record ed Physically Hurt Never 09/29/2019 Verbally Threaten Not on file 09/29/2019 Sex and Gender Information Value Date Recorded Sex Assigned at Not on file Gender Identity Not on file Sexual Orientation Not on file Obstetrics History Last Filed Vital Signs Vital Sign Reading Time Taken Comments Blood Pressure - - Pulse - - Temperature - - Respiratory Rate - - Oxygen Saturation - - Inhaled Oxygen Concentration - - Weight 87 kg (191 lb 12.8 oz) 03/29/2017 1432 ES T Height - - Body Mass Index - - Plan of Treatment Health Maintenance Due Date Last Done Comments Hepatitis C Screen 1955 RSV Immunization ( o r 60+ Years) (1 - 1-dose 60+ series) 2017 COVID-19 Vaccine (3 - Modern a risk series) 11/25/2020 10/28/2020, 07/06/2020, 06/08/2020 Fall Risk Screening [address] [place] [address] Josiane Pacheco Personal/Family Self [address] [place] [address] [address] [place] [address] Josiane Pacheco Personal/Family Self [address] [place] [address] [address] [place], [place] [address]Josiane Parry Personal/Family Self [address] [place] [address] [address] [place] [address]Josiane Parry Personal/Family Self [address] [place] [address] [address] [place] [address] Josiane Pacheco Personal/Family Self [address] [place] [address] [address] [place] [address] Josiane Pacheco Personal/Family Self [address] [place] [address] [place] [id number] Josiane Pacheco Personal/Family Self [address] [place] [address] Care Teams Flower Grader Relationship Specialty Start Date End Date Sarah Alejo NP [address] [place] [id number] PCP - General 09/20/18
--- OUTSIDE RECORDS SUMMARY | 2023-12-04 16:36 | XMS_ITS | Encounter Summary ---
Author Organization [facility] [place] [address] Care Team Providers Care Cmo & President Name Role Phone Husam Rosas MD Primary Care Provider +1 [phone] Encounter Details Date Type Department Care Team (Late st Contact Info) Description 03/17/2010 [place] [address] Drew Heaton MD [facility] [place] [address] Social History Tobacco Use Types Packs/Day Years [...] 1:30 PM EST [place] [phone] Satya Wills MD [facility] [place] [address] documented as of this encounter Procedures Procedure Name Priority Date/Time Associated Diagnosis Comments CD4 Routine 03/17/2010 12:08 PM EST DIFFERENTIAL, AUTOMATED Routine 03/17/2010 12:08 PM EST URINE, QUALITATIVE Routine 03/17/2010 12:08 PM EST CBC (WITH DIFF) Routine 03/17/2010 12:08 PM EST TSH Routine 03/17/2010 12:08 PM EST PHOSPHORUS Routine 03/17/2010 12:08 PM EST COMPREHENSIVE METABOLIC PANEL Routine 03/17/2010 12:08 PM EST documented in this encounter Results * (ABNORMAL) CD4 (03/17/2010 12:08 PM EST) CD3% 91(H) 55 - 82 % CERNER MILLENNIUM CD3 ABS 1219 731 - 2438 /mcl CERNER MILLENNIUM CD 4% 13(L) 35 - 61 % CERNER MILLENNIUM CD 4ABS 177(L) 503 - 1736 /mcl CERNER MILLENNIUM Comment: [...] CD4, CD8, CD19, CD16+56) Blood specimen (specimen) 03/17/2010 12:08 PM EST 03/17/2010 12:31 PM EST Drew Heaton MD HEMATOLOGY ORDERABLE S CHIARA CLIFFORD * TSH (03/17/2010 12:08 PM EST) Thyroid Stimulating Hormone 1.08 0.27 - 4.20 mcIU/mL CERNER MILLENNIUM Comment: Cord Blood Reference Range: ??0.35 23.00 uIU/mL Blood specimen (specimen) 03/17/2010 12:08 PM EST 03/17/2010 12:31 PM EST Drew Heaton MD CHEMISTRY ORDERABLES CERNER MILLENNIUM * (ABNORMAL) COMPREHENSIVE METABOLIC PANEL (NON-FASTING) (03/17/2010 12:08 PM EST) Glucose 128 <=199 mg/dL CERNER MILLENNIUM Comment:Diabetes: >=200 mg/d L plus symptoms Blood Urea Nitrogen 12 8 - 18 mg/dL CERNER MILLENNIUM Creatinine 0.71 0.70 - 1.20 mg/dL CERNER MILLENNIUM Sodium 137 135 - 145 mmol/L CERNER MILLENNIUM Potassium 3.6 3.5 - 5.0 mmol/L CERNER MILLENNIUM Comment: Please note: ??Patients with WBC >100,000 may have falsely elevated Potassium levels. ??For accurate Potassium quantification in these patients send serum separator tube (gold top) for subsequent determinations. ??Contact the Clinical Chemistry Laboratory if there are any questions. Chloride 108(H) 98 - 107 mmol/L CERNER MILLENNIUM Carbon Dioxide 24 22 - 31 mmol/L CERNER MILLENNIUM Anion Gap 5 5 - 15 mmol/L CERNER MILLENNIUM Calcium 8.8 8.5 - 10.5 mg/dL CERNER MILLENNIUM Protein, Total 6.3(L) 6.4 - 8.3 gm/dL CERNER MILLENNIUM Albumin 4.1 3.2 - 5.2 gm/dL CERNER MILLENNIUM Aspartate Aminotransferase 47(H) 0 - 30 unit/L CERNER MILLENNIUM Alanine Aminotransferase 50(H) 0 - 30 unit/L CERNER MILLENNIUM Alkaline Phosphatase 54 40 - 104 unit/L CERNER MILLENNIUM Bilirubin, [...] disease. References: http://nkdep.nih.gov/resources/NKDEP_Suggestn4Labs_0606_508.pdf http://www.kidney.org/professionals/kls/pdf/faq_gfr.pdf Blood specimen (specimen) 03/17/2010 12:08 PM EST 03/17/2010 12:31 PM EST Drew Heaton MD CHEMISTRY ORDERABLES Performing Organization Address [facility] de Phone Number [facility] * (ABNORMAL) PHOSPHORUS (03/17/2010 12:08 PM EST) Phosphorus 2.1(L) 2.5 - 4.5 mg/dL [facility] Blood specimen (specimen) 03/17/2010 12:08 PM EST 03/17/2010 12:31 PM EST Drew Heaton MD CHEMISTRY ORDERABLES Performing Organization Address [facility] de Phone Number [facility] * URINE, QUALITATIVE (03/17/2010 12:08 PM EST) Specific [place] Urine Non-automated 1.025 1.002 - 1.030 [facility] Human Chorionic Gonadotropin Qualitative, Urine Negative CERNER MILLENNIUM Comment: If Specific [place] is less than 1.010, a negative result is obtained, and is still suspected, a repeat on a first morning specimen is recommended. Urine specimen (specimen) 03/17/2010 12:08 PM EST 03/17/2010 12:34 PM EST Drew Heaton MD URINE ORDERABLES [facility] QUIANAENNIUM * REFLEX LAB-A-DIFF (03/17/2010 12:08 PM EST) Neutrophil % 54.1 34.0 - 71.0 % CERNER MILLENNIUM Neutrophil Absolute 1.91 1.50 - 6.30 x10(3)/mcL CERNER MILLENNIUM Lymph % 38.2 19.0 - 53.0 % CERNER MILLENNIUM Lymphocytes Abs 1.4 1.0 - 3.6 x10(3)/mcL CERNER MILLENNIUM Monocyte % 6.8 4.0 - 13.0 % CERNER MILLENNIUM Monocyte Abs 0.2 0.2 - 1.0 x10(3)/mcL CERNER MILLENNIUM Eos [...] are noted, a manual differential will be performed.v Immature Gran Absolute 0.00 0.00 - 0.05 x10(3)/mcL CERNER MILLENNIUM Blood specimen (specimen) 03/17/2010 12:08 PM EST 03/17/2010 12:31 PM EST Drew Heaton MD HEMATOLOGY ORDERABLE S CERNER MILLENNIUM * (ABNORMAL) CBC (03/17/2010 12:08 PM EST) White Blood Cell 3.5(L) 4.0 - 10.0 x10(3)/mc L CERNER MILLENNIUM Red Blood Cell 4.18 3.93 - 5.22 x10(6)/mc L CERNER MILLENNIUM Hemoglobin 14.4 11.2 - 15.7 gm/dL CERNER MILLENNIUM Hematocrit 41.0 34.0 - 45.0 % CERNER MILLENNIUM Mean Cell Volume 98.1(H) 79.0 - 94.0 fL CERNER MILLENNIUM Mean Cell Hemoglobin 34.4(H) 26.6 - 32.2 pg CERNER MILLENNIUM Mean Cell Hemoglobin Concentration 35.1 32.0 - 36.5 gm/dL CERNER MILLENNIUM Platelet 136(L) 145 - 370 x10(3)/mc L CERNER MILLENNIUM RDW Standard Deviation 44.7 35.0 - 46.0 fL CERNER MILLENNIUM RDW coefficient of variation 12.7 10.9 - 14.4 % CERNER MILLENNIUM Mean Platelet Volume 9.7 9.0 - 12.0 fL CERNER MILLENNIUM Blood specimen (specimen) 03/17/2010 12:08 PM EST 03/17/2010 12:31 PM EST Drew Heaton MD HEMATOLOGY ORDERABLE S CERJANIYA SEBASTIANIUM documented in this encounter Visit Diagnoses Not on filedocumented in this encounter Care Teams Cmo & President Relationship Specialty Start Date End Date Husam Rosas MD [address] [place] [address] PCP - General 01/19/10 01/22/17 documented as of this encounter
--- OUTSIDE RECORDS SUMMARY | 2023-12-04 16:36 | XMS_ITS | Encounter Summary ---
Author Organization [facility] [place] [address] Care Team Providers Care Lime Puller Name Role Phone Husam Rosas MD Primary Care Provider +1 [phone] Encounter Details Date Type Department Care Team (Late Contact Info) Description 09/28/2010 [place] [address] Satya Wills MD [facility] [place] [address] Social History Tobacco Use Types Packs/Day Years [...] 1:30 PM EST [place] [address] Satya Wills MD [facility] [place] [address] documented as of this encounter Visit Diagnoses Not on filedocumented in this encounter Care Teams Lime Puller Relationship Specialty Start Date End Date Husam Rosas MD [address] [place], [place] [id number] PCP - General 01/19/10 01/22/17 documented as of this encounter
--- OUTSIDE RECORDS SUMMARY | 2023-12-04 16:36 | XMS_ITS | Encounter Summary ---
Author Organization [facility] Address [facility] [place] [address] Care Team Providers Care Property Valuer Name Role Phone Husam Rosas MD Primary Care Provider +1 [phone] Reason for Visit * Reason Comments Seizures Headache Encounter Details Date Type Department Care Team (Late st Contact Info) Description 10/01/2010 8:45 AM EDT [place] [phone] Satya Wills MD [facility] [place] [address] Epilepsy (Primary Dx) Discharge Disposition: Home Social [...] Sign Reading Time Taken Comments Blood Pressure 123/87 10/01/2010 8:11 AM EDT Pulse 77 10/01/2010 8:11 AM EDT Temperature - - Respiratory Rate - - Oxygen Saturation - - Inhaled Oxygen Concentration - - Weight 98 kg (216 lb) 10/01/2010 8:11 AM EDT Height 168.9 cm (5' 6.5) 10/01/2010 8:11 AM EDT Body Mass Index 34.34 10/01/2010 8:11 AM EDT documented in this encounter Patient Instructions * Patient Instructions* Satya Wills MD - 10/01/2010 9:15 AM EDT I think you are doing reasonably well Seizure control is adequate and I would not change anything. For your headaches please continue the narosyn and hydroxyzine as needed. Please also start a trial of Lyrica one pil twice a day on a regular basis as a preventative. I will see you back in 6 months documented in this encounter Progress Notes * Satya Wills MD - 10/01/2010 9:23 AM EDT Chief Complaint: Epilepsy. History or Present Illness: The patient is seen in followup today. She is about the same. She had only one nocturnal seizure in the last two months. She has not had major accidents or injuries. She continues to have daily chronic headaches with daily severalsharp shooting pains on the right, and nausea about once a wek Physical Examination: Head, eyes, ears, nose, and throat were normal, lungs are clear. There was minimal external deviation of the right eye as previously noted. It seems to be getting better. Cranial nerves are otherwise unremarkable. Strength was normal. Coordination is mildly impaired. Reflexes were brisk. Sensation was normal. Her gait was stable. Medications: In electronic record Laboratory Studies: I am not checking any today. Impression: The situation is stable. 1. She is probably still having complex partial and secondary generalized seizures. I think we havedone all we can at the moment with [...] events that she is now having are epileptic,although her son's description was very convincing. 2. Headaches are still not doing well. Keeping her Naprosyn and Vistaril prn is I think, the best option, but I am adding Lyrica 50mg bid toher regimen for prevention. 3. Other medical problems include irritable bowel syndrome, hemorrhoids, and the chronic HIV infection. Those appear to be stable. She is going to see Dr. Salmon today. Thank you for this consultation. I will see her back in 6 months. cc: LUIS ALFREDO MONTERROSO MD GASTROENTEROLOGY ROSA SALMON MD INFECTIOUS DISEASE HUSAM ROSAS MD [facility] [address] [place] [address] documented in this encounter Miscellaneous Notes * Miscellaneous - Esau, Pattern Illustrator - 10/10/2010 3:35 AM EDT documented in this encounter Plan of Treatment Upcoming Encounters Date Type Department Care Team (Late st Contact Info) Description 03/06/2024 1:30 PM EST [place] [address] Satya Wills MD [facility] [place] [address] documented as of this encounter Visit Diagnoses Diagnosis Epilepsy- Primary Unspecified epilepsy without mention of intractable epilepsy documented in this encounter Care Teams Property Valuer Relationship Specialty Start Date End Date Husam Rosas MD [address] [facility] [place] [address] PCP - General 01/19/10 01/22/17 documented as of this encounter
--- OUTSIDE RECORDS SUMMARY | 2023-12-04 16:36 | XMS_ITS | Encounter Summary ---
Author Organization [facility] [place] [address] Care Team Providers Care Group Segment Consultant Name Role Phone Elias Rosas MD Primary Care Provider +1 [phone] Reason for Visit * Reason Comments Gynecologic Exam Encounter Details Date Type Department Care Team (Late st Contact Info) Description 08/11/2010 4:00 PM EDT Office Visit Obstetrics [place] [phone] Licha Orellana APRN [facility] [address] OBSTETRICS & [place] [address] Screening (Primary Dx); Abnormal bleeding in menstrual cycle; Annual physical exam Discharge Disposition: Home Social History Tobacco Use [...] Reading Time Taken Comments Blood Pressure 132/94 08/11/2010 3:52 PM EDT Pulse - - Temperature - - Respiratory Rate - - Oxygen Saturation - - Inhaled Oxygen Concentration - - Weight 98.2 kg (216 lb 9.6 oz) 08/11/2010 3:52 P M EDT Height 168.9 cm (5' 6.5) 08/11/2010 3:52 PM EDT Body Mass Index 34.44 08/11/2010 3:52 PM EDT documented in this encounter Progress Notes * Licha Orellana APRN - 08/11/2010 5:07 PM EDT Josiane Pacheco [id number] ELIAS ROSAS MD 08/11/2010 Good idea to feel her cervix before doing pap to help direct speculum Gynecologic Exam Josiane Pacheco is a 55 y.o. No obstetric history on file. woman who presents today for an annual exam. HEEL CASER History: LMP continues to come irregularly, sometimes every 2 weeks sometimes every two months. Last year referred for U/S but patient did not do it, discussed again today. Sexually active with Neo, her partner of 2-3 yrs, uses condoms consistently, but would like to end this relationship. No breast, or bowel concerns/complaints. Has noted an increase in RASHID, coughs daily and notes urine leakage of 4-5 times/day, not wearing pads,needs to change her underwear. Health Maintenance: Medical Hx: 1. seizure disorder-pt. states not under control at this time 2. HIV 3. depression 4. stress incontinence 5. Colon problems-being worked up in GI- pt. states benign polyps and anal fissures 6. Anxiety Past Surgical History: 1. cholecystectomy 2. hemorrhoidectomy 3. oral surgery 4. R crani temporal lobectomy Health Related Habits: Smoking 1 pk every 3 days. Drinking increased amounts of ETOH - beer- which is concerning to her. May drink 7 beers every other night. No drinks in the morning. Exercise: none recently, since flu 2 weeks ago. Social History: Lives alone [place] with her 20 yr old son Family History: not taken UNABLE TO FIND; lamoTRIgine (LAMICTAL) 200 mg tablet; Multivitamins with Iron Tab; prochlorperazine(COMPAZINE) 10 mg tablet; sulfamethoxazole-trimethoprim (BACTRIM DS) 800-160 mg per tablet; clonAZEpam (KLONOPIN) 1 mg tablet; atazanavir (REYATAZ) 300 mg capsule; abacavir-lamiVUDine (EPZICOM) 600-300 mg per tablet; albuterol (PROAIR HFA) 90 mcg/Actuation inhaler; naproxen (NAPROSYN) 375 mg tablet; hydrOXYzine (VISTARIL) 25 mg capsule tenofovir (VIREAD) 300 mg tablet; hyoscyamine (LEVSIN/SL) 0.125 mg SL tablet; polyethylene glycol (MIRALAX) 17 gram/dose powder; Lacosamide 200 mg Tab; ritonavir (NORVIR) 100 mg Tab tablet Allergies as of 08/11/2010 - Review Complete 08/11/2010 Allergen Reaction Noted ??? Topiramate Itching Physical Examination: BP 132/94 Ht 1.689 m (5' 6.5) Wt 98.249 kg (216 lb 9.6 oz) BMI 34.44 kg/m2 LMP 07/28/2010 NAD. NC/AT. A&Ox3. Pleasant. Skin: normal Thyroid: smooth, symmetrical Lungs: CTA tonny Hrt: RRR,no murmurs appreciated Breasts: no dominant masses, no discharge, no lymphadenopathy Abdomen: soft, nontender, no organomegaly Pelvic External genitalia: normal appearance, no fusion noted BSU: normal Vagina: normal with no lesions Cervix: no CMT, pink Uterus: A/V, normal size, shape and consistency Adnexa: nontender, no masses palpated Rectovaginal exam: normal tone, confirms above Impression: Normal custom seamstress exam RASHID bothersome Alcohol intake increasing Plan: 1. Health Maintenance: Pap smear done today. Reviewed BSE. Reinforcement re: positive health behaviors. 2. Supported her decision to attend AA meetings, really wants to eliminate alcohol from her daily life. Would also help her RASHID in a major way. 3. Irreg Bleeding- although probably perimenopausal related, needs a TVUS. Pt. To call when menses starts so we can schedule after her menses ends. 4. Needs mammogram- will order. 5. Patient feels that her partner, Neo, is not good for her, and is trying to end this relationship, encourage to get a csler to help her with these major changes that she is interested in pursuing. documented in this encounter Plan of Treatment Upcoming Encounters Date Type Department Care Team (Late st Contact Info) Description 03/06/2024 1:30 PM EST Office Visit [place] [address] Satya Wills MD [facility] [place] [address] Scheduled Orders Name Type Priority Associated Diagnoses Orde r Schedule Cytopathology Gynecological (not ) Lab Routine Screening Ordered: 08/11/2010 documented as of this encounter Procedures Procedure Name Priority Date/Time Associated Diagnosis Comments DOOR OPERATOR CYTOLOGY FINAL REPORT Routine 08/11/2010 6:30 PM EDT documented in this encounter Results * DOOR OPERATOR CYTOLOGY FINAL REPORT (08/11/2010 6:30 PM EDT) Sewage Screen Operator Cytology Final Report ? [facility] ? Provider: ?? LICHA ORELLANA ?? Pt. Name: ?? HAYLEY JOSIANE Kinjal ? Acc #: ?[id number] ?Pt. ? Col Date: ?? 08/11/2010 ? /Sex: ?1955,(55 years),Female ? Rec Date: ?? 08/11/2010 ? LOC: ?5L ? CYTOPATHOLOGY: ??DOOR OPERATOR ? ---Adequacy--- ? Specimen submitted is satisfactory. ? Endocervical component present. ? ---Cytopathologic Diagnosis--- ? NORMAL ? Negative for Intraepithelial Lesion or Malignancy (NILM). ? 08/13/10 ?? Screened by: ??DMG ? 08/13/10 ?? Verified by: ??Jaziel JETT(ASCP), Althea Gregg - Income Tax Return Preparer ? ---Clinical Information--- ? Hormones?: ?No ? Hysterectomy?: ?No ?: ?No ?: ?No ? I.U.D.?: ?No ? Pelvic Radiation: ? No ? Prior DOOR OPERATOR Therapy?: ? No ? Hist Abnl Pap/Biopsy?: ??No ? --- ? HPV Option: ? Reflex HPV ? Specimen Source: ?Cervical/LBP ? Preparation: ?Liquid Based Pap ? LMP: ?07/28/2010 ? --- ? Hist of HPV Vaccine?: ?? No ? Hist of Smoking?: ? No ? Hist of LUANNE exposure?: ??No ? Clinical Data, Significant Therapy and Clinical Impression: ?Dx: screening v82.9a ? This Pap Test has been evaluated with the assistance of the ThinPrep Pap ? Test Imaging System. ? Note: ? The Pap test is a screening test for cervical cancer with an inherent ? false-negative rate dependent upon several variables. ??For further ? information please contact the [facility] Laboratory. ? [facility] ? Provider: ?? LICHA ORELLANA ?? Pt. Name: ?? JOSIANE PACHECO ? Acc #: ?[id number] ?Pt. ? Col Date: ?? 08/11/2010 ? /Sex: ?1955,(55 years),Female ? Rec Date: ?? 08/11/2010 ? LOC: ?5L ? CYTOPATHOLOGY: ??DOOR OPERATOR ? Reference: ??Abendroth CS. ??Cryptographer of Pap Smear Results. ??In: ? Keenan BS, James HH, ed. ??The Pap Smear. ??[place]: ??Shaw, 2002: ? 71-77. [facility] 08/11/2010 6:30 PM EDT Licha Orellana FOOT SETTER PATHOLOGY/CYTOLOGY ORDERABLES CH[facility]SY [facility] documented in this encounter Visit Diagnoses Diagnosis Screening- Primary Screening for unspecified condition Abnormal bleeding in menstrual cycle Unspecified disorder of menstruation and other abnormal bleeding from female genital tract Annual physical exam Routine general medical examination at a health care facility documented in this encounter Care Teams Group Segment Consultant Relationship Specialty Start Date End Date Elias Rosas MD [address] [place] [address] PCP - General 01/19/10 01/22/17 documented as of this encounter
--- OUTSIDE RECORDS SUMMARY | 2023-12-04 16:36 | XMS_ITS | Encounter Summary ---
Author Organization [facility] [place] [address] Care Team Providers Care Adoption Agent Name Role Phone Husam Rosas MD Primary Care Provider +1 -[phone] Reason for Visit * Reason Onset Date Comments Medication Refill 09/13/2010 Encounter Details Date Type Department Care Team (Late Contact Info) Description 09/13/2010 [place] [address] Jayla Neumann, MEIR [address] [address] Social History Tobacco Use Types Packs/Day Years [...] 1:30 PM EST [place] [address] Satya Wills MD [facility] [place] [address] documented as of this encounter Visit Diagnoses Not on filedocumented in this encounter Care Teams Adoption Agent Relationship Specialty Start Date End Date Husam Rosas MD [address] [place] [address] PCP - General 01/19/10 01/22/17 documented as of this encounter
--- OUTSIDE RECORDS SUMMARY | 2023-12-04 16:36 | XMS_ITS | Encounter Summary ---
Author Organization [facility] [place] [address] Care Team Providers Care Zipper Ironer Name Role Phone Husam Rosas MD Primary Care Provider +1 -[phone] Encounter Details Date Type Department Care Team (Late st Contact Info) Description 04/28/2010 10:15 AM EST Procedure [place] [address] Yolie Hermosillo MD [facility] [place] [address] Social History Tobacco Use Types Packs/Day Years [...] 1:30 PM EST [place] [address] Satya Wills MD [facility] [place] [address] documented as of this encounter Visit Diagnoses Not on filedocumented in this encounter Care Teams Zipper Ironer Relationship Specialty Start Date End Date Husam Rosas MD [address] [place] [address] PCP - General 01/19/10 01/22/17 documented as of this encounter
--- OUTSIDE RECORDS SUMMARY | 2023-12-04 16:36 | XMS_ITS | Encounter Summary ---
Author Organization [facility] [place] [address] Care Team Providers Care Manager Resource Name Role Phone Husam Rosas MD Primary Care Provider +1 -[phone] Reason for Visit * Reason Onset Date Comments Medication Refill 11/02/2010 Encounter Details Date Type Department Care Team (Late st Contact Info) Description 11/02/2010 Refill [place] [address] Drew Heaton MD [facility] [address] [place] [address] Social History Tobacco Use Types Packs/Day Years [...] Encounter - Suzie Mars RN - 11/02/2010 1:32 PM EDT Pharmacy asking for refills of Epzicom and reyetaz documented in this encounter Plan of Treatment Upcoming Encounters Date Type Department Care Team (Late st Contact Info) Description 03/06/2024 1:30 PM EST Office [place] [address] Satya Wills MD [facility] [place] [address] documented as of this encounter Visit Diagnoses Not on filedocumented in this encounter Care Teams Manager Resource Relationship Specialty Start Date End Date Husam Rosas MD [address] [place] [address] PCP - General 01/19/10 01/22/17 documented as of this encounter
--- OUTSIDE RECORDS SUMMARY | 2023-12-04 16:36 | XMS_ITS | Encounter Summary ---
Author Organization [facility] [place] [address] Care Team Providers Care Saturator Tender Name Role Phone Husam Rosas MD Primary Care Provider +1 -[phone] Encounter Details Date Type Department Care Team (Late Contact Info) Description 03/17/2010 9:30 AM EST [place] [address] Satya Wills MD [facility] [place] [address] Discharge Disposition: Home Social History Tobacco Use [...] 1:30 PM EST [place] [address] Satya Wills MD [facility] [place] [address] documented as of this encounter Visit Diagnoses Not on filedocumented in this encounter Care Teams Saturator Tender Relationship Specialty Start Date End Date Husam Rosas MD [address] [place] [address] PCP - General 01/19/10 01/22/17 documented as of this encounter
--- OUTSIDE RECORDS SUMMARY | 2023-12-04 16:36 | XMS_ITS | Encounter Summary ---
Author Organization [facility] Address [facility] [place] [address] Care Team Providers Care Surgical Scheduler Name Role Phone Husam Rosas MD Primary Care Provider +1 -[phone] Encounter Details Date Type Department Care Team (Late st Contact Info) Description 11/02/2010 Orders [place] [address] Suzie Mars RN Social History Tobacco Use [...] EST Office [place] [address] Satya Wills MD [facility] [place] [address] documented as of this encounter Visit Diagnoses Not on filedocumented in this encounter Care Teams Surgical Scheduler Relationship Specialty Start Date End Date Husam Rosas MD [address] [place] [address] PCP - General 01/19/10 01/22/17 documented as of this encounter
--- OUTSIDE RECORDS SUMMARY | 2023-12-04 16:36 | XMS_ITS | Encounter Summary ---
Author Organization [facility] Address [facility] [place] [address] Care Team Providers Care Cisco Administrator Name Role Phone Sarah Alejo APRN Primary Care Provider [phone] Encounter Details Date Type Department Care Team (Late st Contact Info) Description 05/18/2006 Orders Only Infectious Disease at [facility] [place] [address] Drew Heaton MD [facility] [place] [address] Social History Tobacco Use Types Packs/Day Years [...] in a fci (including now)? No 10/24/2022 Sex and Gender Information Value Date Recorded Sex Assigned at Not on file Gender Identity Not on file Sexual Orientation Not on file documented as of this encounter Plan of Treatment Upcoming Encounters Date Type Department Care Team (Late st Contact Info) Description 03/06/2024 1:30 PM EST [place] [address] Satya Wills MD [facility] [place] [address] documented as of this encounter Procedures Procedure Name Priority Date/Time Associated Diagnosis Comments NON-COGNOS ADMINISTRATOR FINAL REPORT Routine 05/18/2006 3:51 PM EDT documented in this encounter Results * Non-Polymer Chemist Final Report (05/18/2006 3:51 PM EDT) Non-Polymer Chemist Final Report [id number] ? Location: The signing pathologist has (i) examined the relevant preparation(s) for the specimen(s) and (ii) rendered or confirmed the diagnosis(es). . ? Pathology Non-Polymer Chemist Cytology Final Report Clinical Information Specimen Source: ? 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 Gross Description: ?Rec'd fresh, approx. 6 ml. total volume of ?? clear, colorless fluid. ?Total Prep - ??Cys 2. Interpretation Specimen submitted is satisfactory. Diagnosis See Comment 05/22/06 ?Screened by: ? SLA ?Rescreened by: ?? EJG,EJG 05/22/06 ?Verified by: ? Modesto Tidwell MD ? Pathologist ? (Electronic Signature) Comment Mild leukocytosis - predominantly small lymphocytes. Microorganisms not noted. CHIARA CLIFFORD 05/18/2006 3:51 PM EDT Drew Heaton MD PATHOLOGY/CYTOLOGY O RDERABLES Performing Organization Address City/State/[facility] Co de Phone Number CHIARA CLIFFORD documented in this encounter Visit Diagnoses Not on filedocumented in this encounter Care Teams Cisco Administrator Relationship Specialty Start Date End Date Sarah Alejo, PARTS PICKER [address] [place] [address] PCP - General Internal Medicine 11/06/19 documented as of this encounter
--- OUTSIDE RECORDS SUMMARY | 2023-12-04 16:36 | XMS_ITS | Encounter Summary ---
Author Organization [facility] Address [facility] [address] [place] [address] Care Team Providers Care Champagne Maker Name Role Phone Sarah Alejo APRN Primary Care Provider [phone] Encounter Details Date Type Department Care Team (Late st Contact Info) Description 04/30/2008 Orders Only Gastroenterology at [facility] [place] [address] Yolie Hermosillo MD [facility] [place] [address] Social History Tobacco Use Types Packs/Day Years [...] 1:30 PM EST Office [place] [address] Satya Wills MD [facility] [place] [address] documented as of this encounter Procedures Procedure Name Priority Date/Time Associated Diagnosis Comments SURGICAL PATHOLOGY REPORT Routine 04/30/2008 3:55 PM EST documented in this encounter Results * Surgical Pathology Report (04/30/2008 3:55 PM EST) Surgical Pathology Report [id number] ? Location: 4T The signing pathologist has (i) examined the relevant preparation(s) for the specimen(s) and (ii) rendered or confirmed the diagnosis(es). . ?Pathology Surgical Pathology Final Report Clinical Information Specimen Submitted: A - Biopsies; Random Colon B - Polyp; Ascending Colon C - Polyp; Transverse Colon D - Polyp; Descending Colon E - Polyp; Sigmoid Colon Clinical History: Patient with HIV on HAART therapy with diarrhea. ??Normal mucosa, several polyps. Clinical Diagnosis: Screening/hemat ochezia Gross Description A - Labeled/Fixativ e: Random colon biopsies, formalin. Qty/Size/Weight : ?Five, averaging 0.3 x 0.3 x 0.2 cm. Tissue Description: ?? Soft, argueta tissues. Sections/Proces sing: ??(T1) B - Labeled/Fixativ e: Ascending colon polyp, formalin. Qty/Size/Weight : ?Four, ranging from 0.1 cm to 1.0 cm in greatest ?dimension. Tissue Description: ?? Three soft, argueta tissues and a red polyp. Sections/Proces sing: ??The polyp is inked black at the base and trisected. ?(B1) three smaller tissues; (B2) polyp, trisected. ?(T2) C - Labeled/Fixativ e: Transverse colon polyp, formalin. Qty/Size/Weight : ?Single, 0.7 x 0.4 x 0.3 cm. Tissue Description: ?? Soft, argueta-pink polyp. Sections/Proces sing: ??Polyp is inked black at the base and trisected. (T1) D - Labeled/Fixativ e: Polyp, descending colon, formalin. Qty/Size/Weight : ?Single, 1.0 x 0.8 x 0.6 cm. Tissue Description: ?? Soft, red polyp. Sections/Proces sing: ??Polyp is inked black at the base and trisected. (T1) E - Labeled/Fixativ e: Sigmoid colon polyp, formalin. Qty/Size/Weight : ?Two, averaging 0.2 x 0.2 x 0.1 cm. Tissue Description: ?? Soft, argueta tissues. Sections/Proces sing: ??(T1) ??vinayak/SNS Microscopic Description Slides reviewed, microscopic description not recorded. Diagnosis A - Random colon biopsies: ?Colonic mucosa within normal limits. B - Ascending colon polyp: ?Fragments of tubular adenoma. C - Transverse colon polyp: . Diagnosis ?Tubular adenoma. D - Descending colon polyp: ?Tubular adenoma (1.0cm). ?Cauterized base is focally positive for adenomatous epithelium. E - Sigmoid colon polyp: ?Mucosal prolapse polyp. ?There is no evidence of adenomatous change. CR-PX 05/01/08 VMS 05/01/08 Verified by: ? Hemanth HALL, Del ?Pathologist ?(Electronic Signature) The attending pathologist whose signature appears on this report has reviewed all diagnostic slides and has edited the gross and/or microscopic portion of the report in rendering the final pathologic diagnosis. [facility] 04/30/2008 3:55 PM EST Yolie Hermosillo MD PATHOLOGY/CYTOLOGY O RDERABLES Performing Organization Address [facility]/State/[facility] Co de Phone Number [facility] documented in this encounter Visit Diagnoses Not on filedocumented in this encounter Care Teams Champagne Maker Relationship Specialty Start Date End Date Sarah Alejo, SHANK FAKER [address] [address] PCP - General Internal Medicine 11/06/19 documented as of this encounter
--- OUTSIDE RECORDS SUMMARY | 2023-12-04 16:36 | XMS_ITS | Encounter Summary ---
[facility] [place] [address] Care Team Providers Care Preschool Education Director Name Role Phone Husam Rosas MD Primary Care Provider [phone] Reason for Visit * Reason Onset Date Comments Medication Refill 06/28/2010 Encounter Details Date Type Department Care Team (Late Contact Info) Description 06/28/2010 [place] [address] Satya Wills MD [facility] [place] [address] Epilepsy (Primary Dx) Social History Tobacco Use [...] 1:30 PM EST Office [place] [address] Satya Wills MD [facility] [place] [place] [address] documented as of this encounter Visit Diagnoses Diagnosis Epilepsy- Primary Unspecified epilepsy without mention of intractable epilepsy documented in this encounter Care Teams Preschool Education Director Relationship Specialty Start Date End Date Husam Rosas MD [address] [address] PCP - General 01/19/10 01/22/17 documented as of this encounter
--- OUTSIDE RECORDS SUMMARY | 2023-12-04 16:36 | XMS_ITS | Encounter Summary ---
Author Organization [facility] Address [facility] [place] [address] Care Team Providers Care Entry Level Software Engineer Name Role Phone Husam Rosas MD Primary Care Provider [phone] Encounter Details Date Type Department Care Team (Latest Contact Info) Description 04/28/2010 9:26 AM EST - 04/28/2010 1:30 PM EST Hospital Encounter [place] [id number] Luis Alfredo Monterroso MD [facility] [place] [address] Discharge Disposition: Home Social History Tobacco Use Types Packs/Day Years Used Date Smoking Tobacco: Never Assessed Sex and Gender Information Value Date Recorded Sex Assigned at Not on file Gender Identity Not on file Sexual Orientation Not on file documented as of this encounter Medications at Time of Discharge Medication Sig Dispensed Refills Start Date End Date clonAZEpam (KLONOPIN) 1 mg tablet 1mg in AM and 2mg qhs, PO, as directed 04/28/2010 09/13/2010 lamoTRIgine (LAMICTAL) 200 mg tablet 200 MG = 1 Tablet(s) PO Twice daily 04/28/2010 06/08/2010 hydrOXYzine (VISTARIL) 25 mg capsule 25 MG = 1 Capsule(s) PO Twice daily 04/28/2010 08/31/2010 tenofovir (VIREAD) 300 mg tablet 300 MG = 1 Tablet(s) PO Once daily 04/28/2010 09/14/2010 Multivitamins with Iron Tab 1 Tablet(s), PO, Once daily 04/28/2010 06/04/2010 documented as of this encounter Plan of Treatment Upcoming Encounters Date Type Department Care Team (Late st Contact Info) Description 03/06/2024 1:30 PM EST [place] [address] Satya Wills MD [facility] [place] [address] documented as of this encounter Procedures Procedure Name Priority Date/Time Associated Diagnosis Comments SURGICAL PATHOLOGY REPORT Routine 04/28/2010 2:13 PM EST documented in this encounter Results * PATHOLOGY SURGICAL PATHOLOGY FINAL REPORT (04/28/2010 2:13 PM EST) Surgical Pathology Report ? [facility] ? Provider: ?? LUIS ALFREDO MONTERROSO ? Pt. Name: ?? PACHECOANNIE Flores ? Acc #: ?[id number] ?Pt. ? Col Date: ?? 04/28/2010 ?/Sex: ?1955,(54 years),Female ? Rec Date: ?? 04/28/2010 ?LOC: ?4T ? SURGICAL PATHOLOGY ? ---Pathologic Diagnosis--- ? Endoscopic biopsies - ? A. Tubular adenoma(s) (multiple fragments). ? B. Tubular adenoma. ? C. Tubular adenoma. ? D. Tubular adenoma. ? CR-PX ? 04/30/10 ? AAS ? 04/30/10 Verified by: ? Seth Denis MD ? Pathologist ? (Electronic Signature) ? The attending pathologist whose signature appears on this report has ? reviewed all diagnostic slides and has edited the gross and/or ? microscopic portion of the report in rendering the final pathologic ? diagnosis. ? ---Microscopic Description--- ? Slides reviewed, microscopic description not recorded. ? ---Gross Description--- ? A - Labeled/Fixativ e: Polyp ascending colon, formalin. ? Qty/Size/Weight : ?Ten, ranging from 0.2 cm to 0.4 cm in ? greatest dimension. ? Tissue Description: ?? Soft, argueta tissues. ? Sections/Proces sing: ??(T3) ? B - Labeled/Fixativ e: Polyp transverse, formalin. ? Qty/Size/Weight : ?Single, 0.3 x 0.2 x 0.1 cm. ? Tissue Description: ?? Soft, argueta tissue. ? Sections/Proces sing: ??(T1) ? C - Labeled/Fixativ e: Polyp prox descending, formalin. ? Qty/Size/Weight : ?Single, 0.4 x 0.3 x 0.25 cm. ? Tissue Description: ?? Soft, argueta tissue. ? Sections/Proces sing: ??Bisected. ??(T1) ? D - Labeled/Fixativ e: Polyp distal descending, formalin. ? [facility] ? Provider: ?? LOC, LUIS ALFREDO ? Pt. Name: ?? ANNIE PACHECO ? Acc #: ?[id number] ?Pt. ? Col Date: ?? 04/28/2010 ?/Sex: ?1955,(54 years),Female ? Rec Date: ?? 04/28/2010 ?LOC: ?4T ? SURGICAL PATHOLOGY ? Qty/Size/Weight : ?Single, 0.3 x 0.3 x 0.15 cm. ? Tissue Description: ?? Soft, argueta-brown tissue. ? Sections/Proces sing: ??(T1) ??vms/CJL ? ---Clinical Information--- ? Specimen Submitted: ? A - Polyp, ascending colon ? B - Polyp, transverse ? C - Polyp, prox descending ? D - Polyp, distal descending ? Clinical History: ? Pt with polyps on routine colo ? Clinical Diagnosis: ? F/U for polyps CERNER MILLENNIUM 04/28/2010 2:13 PM EST Luis Alfredo Monterroso MD PATHOLOGY/CYTOLOGY O RDERABLES Performing Organization Address [facility]/State/[facility] Co de Phone Number CHIARA CLIFFORD documented in this encounter Visit Diagnoses Not on filedocumented in this encounter Care Teams Entry Level Software Engineer Relationship Specialty Start Date End Date Husam Rosas MD [address] [place] [address] PCP - General 01/19/10 01/22/17 documented as of this encounter
--- OUTSIDE RECORDS SUMMARY | 2023-12-04 16:36 | XMS_ITS | Encounter Summary ---
Author Organization [facility] Address [facility] [place] [address] Care Team Providers Care Nuclear Fuels Reclamation Engineer Name Role Phone Husam Rosas MD Primary Care Provider [phone] Reason for Visit * Reason Onset Date Comments Medication Refill 06/08/2010 NEEDS REFILL Encounter Details Date Type Department Care Team (Late st Contact Info) Description 06/08/2010 Ref[place] [address] Satya Wills MD [facility] [place] [place] [address] Epileptic seizures (Primary Dx) Social History Tobacco Use Types [...] * Telephone Encounter - Michelle Gamble - 06/08/2010 11:07 AM EDT LAMOTRIGINE 200 MG [facility] documented in this encounter Plan of Treatment Upcoming Encounters Date Type Department Care Team (Late st Contact Info) Description 03/06/2024 1:30 PM EST Office [place] [address] Satya Wills MD [facility] [place] [place] [address] documented as of this encounter Visit Diagnoses Diagnosis Epileptic seizures- Primary Unspecified epilepsy without mention of intractable epilepsy documented in this encounter Care Teams Nuclear Fuels Reclamation Engineer Relationship Specialty Start Date End Date Husam Rosas MD [address] [place] [address] PCP - General 01/19/10 01/22/17 documented as of this encounter
--- OUTSIDE RECORDS SUMMARY | 2023-12-04 16:36 | XMS_ITS | Encounter Summary ---
Author Organization [facility] Address [facility] [place] [address] Care Team Providers Care Wood Shop Teacher Name Role Phone Husam Rosas MD Primary Care Provider [phone] Reason for Visit * Reason Comments Follow-up Encounter Details Date Type Department Care Team (Late st Contact Info) Description 10/01/2010 9:30 AM EDT Follow-[place] [address] Drew Heaton MD [facility] [place] [address] HIV disease (Primary Dx) Discharge Disposition: Home Social [...] Reading Time Taken Comments Blood Pressure 132/78 10/01/2010 9:34 AM EDT Pulse 72 10/01/2010 9:34 AM EDT Temperature 36.7 ??C (98 ??F) 10/01/2010 9:34 AM EDT Respiratory Rate 14 10/01/2010 9:34 AM EDT Oxygen Saturation 97% 10/01/2010 9:34 AM EDT Inhaled Oxygen Concentration - - Weight 98 kg (216 lb) 10/01/2010 9:34 AM EDT Height 167.6 cm (5' 6) 10/01/2010 9:34 AM EDT Body Mass Index 34.86 10/01/2010 9:34 AM EDT documented in this encounter Progress Notes * Drew Heaton MD - 10/01/2010 6:19 PM EDT This is a scheduled appointment for an HIV infected woman last seen by me in clinic three months ago, since when she has done well save for ongoing seizures (though these have been less frequent thanusual). Blood pressure 132/78, pulse 72, temperature 36.7 ??C (98 ??F), temperature source Oral, resp. rate14, height 167.6 cm (5' 6), weight 97.977 kg (216 lb), SpO2 97.00%. Physical exam: Overweight woman in no apparent [...] regimen, so will recheck viral load and concomitant phenotype. Labs for safety and efficacy every3-4 months (including today) as long as all [...] so will repeat in three years (2013). 30 minutes [id number] time spent with the patient, 20 minutes of which was in discussion and counseling about management of HIV. Follow-up in 3-4 months. documented in this encounter Plan of Treatment Upcoming Encounters Date Type Department Care Team (Late st Contact Info) Description 03/06/2024 1:30 PM EST Office [place] [address] Satya Wills MD [facility] [place] [address] documented as of this encounter Procedures Procedure Name Priority Date/Time Associated Diagnosis Comments MISCELLANEOUS LAB REQUEST Routine 10/01/2010 10:55 AM EDT HIV disease HIV QUANT Routine 10/01/2010 10:55 AM EDT [facility] Routine 10/01/2010 1 0:55 AM EDT CD4 Routine 10/01/2010 10:55 AM EDT HIV disease DIFFERENTIAL, AUTOMATED Routine 10/01/2010 10:55 AM EDT CBC (WITH DIFF) Routine 10/01/2010 10:55 AM EDT HIV disease COMPREHENSIVE METABOLIC PANEL Routine 10/01/2010 10:55 AM EDT HIV disease HIV-1 RNA, QUANTITATIVE, PCR Routine 10/01/2010 10:40 AM EDT HIV disease documented in this encounter Results * REFLEX LAB-[facility] (10/01/2010 10:55 AM EDT) [facility] ? HI ? Expected Test ? Result ?LO ??Units ??Values ---- Phenosense GT ?SEE COMMENTS Testing is complete. Final copy has been faxed to the referring laboratory. Test Performed by: [facility] ? [address] ? [place] [address] CHIARA ARAYAENNIUM Blood specimen (specimen) 10/01/2010 10:55 AM EDT 10/07/2010 2:12 PM EDT Drew Heaton MD LAB SEND OUT ORDERAB LES CHIARA SEBASTIANIUM * REFLEX LAB-A-DIFF (10/01/2010 10:55 AM EDT) Neutrophil % 55.3 34.0 - 71.0 % CERNER MILLENNIUM Neutrophil Absolute 2.83 1.50 - 6.30 x10(3)/mcL CERNER MILLENNIUM Lymph % 35.9 19.0 - 53.0 % CERNER MILLENNIUM Lymphocytes Abs 1.8 1.0 - 3.6 x10(3)/mcL CERNER MILLENNIUM Monocyte % 5.3 4.0 - 13.0 % CERNER MILLENNIUM Monocyte Abs 0.3 0.2 - 1.0 x10(3)/mcL CERNER MILLENNIUM Eos % 3.1 0.0 - 7.0 % CERNER MILLENNIUM Eosinophils Abs 0.2 0.0 - 0.5 x10(3)/mcL CERNER MILLENNIUM Basophil % 0.4 0.0 - 2.0 % [facility] Baso Absolute 0.0 0.0 - 0.2 x10(3)/mcL [facility] Immature Gran % 0.00 0.00 - 0.66 % [facility] Comment: Immature granulocytes(IG's)percentage and absolute count will include metamyelocytes, myelocytes, and promyelocytes. Blood smears from CBCs yielding IG's will be scanned manually for concordance. If this scan disagrees with the automated IG or if promyelocytes are noted, a manual differential will be performed. Immature Gran Absolute 0.00 0.00 - 0.05 x10(3)/mcL [facility] Blood specimen (specimen) 10/01/2010 10:55 AM EDT 10/01/2010 11:03 AM EDT Drew Heaton MD HEMATOLOGY ORDERABLE S Performing Organization Address [facility] Co de Phone Number [facility] * REFLEX LAB-HIV QUANT (10/01/2010 10:55 AM EDT) Pathologist [facility] HIV Viral Load Result (Qualitative) * RESULT: 1548 copies/mL * INTERPRETATION: The result of this analysis are [...] Administration. Robert Fuentes, Ph.D. Director, Molecular Pathology [facility] Comment: [VERIFIED DATE]10.06.10 Verified By:Brooke Lenz (Electronic Signature) Blood specimen (specimen) 10/01/2010 10:55 AM EDT 10/05/2010 1:56 PM EDT Drew Heaton MD HEMATOLOGY ORDERABLE S Performing Organization Address City/[facility]/ZIP Co de Phone Number CHIARA SEBASTIANIUM * Miscellaneous Lab request (10/01/2010 10:55 AM EDT) Label Request received in lab. CERNER QUIANAENNIUM Blood specimen (specimen) 10/01/2010 10:55 AM EDT 10/01/2010 11:03 AM EDT Drew Heaton MD LAB SEND OUT ORDERAB LES CHIARA CLIFFORD * (ABNORMAL) Comprehensive metabolic panel (non-fasting) (10/01/2010 10:55 AM EDT) Glucose 97 60 - 199 mg/dL CERNER MILLENNIUM Comment:Diabetes: >=200 mg/d L plus symptoms Blood Urea Nitrogen 8 8 - 18 mg/dL CERNER MILLENNIUM Creatinine 0.78 0.70 - 1.20 mg/dL CERNER MILLENNIUM Sodium [...] questions. Chloride 105 98 - 107 mmol/L CERNER MILLENNIUM Carbon Dioxide 25 22 - 31 mmol/L CERNER MILLENNIUM Anion Gap 7 5 - 15 mmol/L CERNER MILLENNIUM Calcium 9.2 8.5 - 10.5 mg/dL CERNER MILLENNIUM Protein, Total 7.0 6.4 - 8.3 gm/dL CERNER MILLENNIUM Albumin 4.1 3.2 - 5.2 gm/dL CERNER MILLENNIUM Aspartate Aminotransferase 65(H) 0 - 30 unit/L CERNER MILLENNIUM Alanine Aminotransferase 70(H) 0 - 30 unit/L CERNER MILLENNIUM Alkaline Phosphatase 60 40 - 104 unit/L CERNER MILLENNIUM Bilirubin, Total 1.5(H) 0.2 - 1.3 mg/dL CERNER MILLENNIUM Bilirubin, [...] disease. References: http://nkdep.nih.gov/resources/NKDEP_Suggestn4Labs_0606_508.pdf http://www.kidney.org/professionals/kls/pdf/faq_gfr.pdf Blood specimen (specimen) 10/01/2010 10:55 AM EDT 10/01/2010 11:03 AM EDT Drew Heaton MD CHEMISTRY ORDERABLES CERNER MILLENNIUM * (ABNORMAL) CD4 (10/01/2010 10:55 AM EDT) CD3% 91(H) 55 - 82 % CERNER MILLENNIUM CD3 ABS 1668 731 - 2438 /mcl CERNER MILLENNIUM CD 4% 10(L) 35 - 61 % CERNER MILLENNIUM CD 4ABS 189(L) 503 - 1736 /mcl CERNER MILLENNIUM Comment: [...] CD4, CD8, CD19, CD16+56) Blood specimen (specimen) 10/01/2010 10:55 AM EDT 10/01/2010 11:03 AM EDT Drew Heaton MD HEMATOLOGY ORDERABLE S [facility] * (ABNORMAL) CBC (with Diff) (10/01/2010 10:55 AM EDT) White Blood Cell 5.1 4.0 - 10.0 x10(3)/mc L CERNER MILLENNIUM Red Blood Cell 4.30 3.93 - 5.22 x10(6)/mc L CERNER MILLENNIUM Hemoglobin 15.0 11.2 - 15.7 gm/dL CERNER MILLENNIUM Hematocrit 41.9 34.0 - 45.0 % CERNER MILLENNIUM Mean Cell Volume 97.4(H) 79.0 - 94.0 fL CERNER MILLENNIUM Mean Cell Hemoglobin 34.9(H) 26.6 - 32.2 pg CERNER MILLENNIUM Mean Cell Hemoglobin Concentration 35.8 32.0 - 36.5 gm/dL CERNER MILLENNIUM Platelet 141(L) 145 - 370 x10(3)/mc L CERNER MILLENNIUM RDW Standard Deviation 47.5(H) 35.0 - 46.0 fL CERNER MILLENNIUM RDW coefficient of variation 13.4 10.9 - 14.4 % CERNER MILLENNIUM Mean Platelet Volume 9.5 9.0 - 12.0 fL CERNER MILLENNIUM Blood specimen (specimen) 10/01/2010 10:55 AM EDT 10/01/2010 11:03 AM EDT Drew Heaton MD HEMATOLOGY ORDERABLE S Performing Organization Address City/State/[facility] Co de Phone Number [facility] documented in this encounter Visit Diagnoses Diagnosis HIV disease- Primary Human immunodeficiency virus [HIV] disease documented in this encounter Care Teams Wood Shop Teacher Relationship Specialty Start Date End Date Husam Rosas MD [address] [place] [address] PCP - General 01/19/10 01/22/17 documented as of this encounter
--- OUTSIDE RECORDS SUMMARY | 2023-12-04 16:36 | XMS_ITS | Encounter Summary ---
Author Organization [facility] [place] [address] Care Team Providers Care Coordinating Producer Name Role Phone Husam Rosas MD Primary Care Provider [phone] Reason for Visit * Reason Onset Date Comments Medication Refill 09/14/2010 Encounter Details Date Type Department Care Team (Late st Contact Info) Description 09/14/2010 Telephone Infectious [place] [address] Drew Heaton MD [facility] [place] [address] Medication Refill Social History Tobacco Use Types [...] Telephone Encounter - Suzie Mars RN - 09/14/2010 12:07 PM EDT Med renewal documented in this encounter Plan of Treatment Upcoming Encounters Date Type Department Care Team (Late st Contact Info) Description 03/06/2024 1:30 PM EST Office [place] [phone] Satya Wills MD [facility] [place] [address] documented as of this encounter Visit Diagnoses Diagnosis HIV (human immunodeficiency virus infection)- Primary Asymptomatic human immunodeficiency virus (HIV) infection status documented in this encounter Care Teams Coordinating Producer Relationship Specialty Start Date End Date Husam Rosas MD [address] [place] [address] PCP - General 01/19/10 01/22/17 documented as of this encounter
--- OUTSIDE RECORDS SUMMARY | 2023-12-04 16:36 | XMS_ITS | Encounter Summary ---
Author Organization [facility] [place] [address] Care Team Providers Care Endodontist Name Role Phone Husam Rosas MD Primary Care Provider [phone] Encounter Details Date Type Department Care Team (Late Contact Info) Description 09/28/2010 [place] [address] Satya Wills MD [facility] [address] [place] [address] Social History Tobacco Use Types Packs/Day Years [...] 1:30 PM EST Office [place] [address] Satya Wills MD [facility] [address] [place] [address] documented as of this encounter Visit Diagnoses Not on filedocumented in this encounter Care Teams Endodontist Relationship Specialty Start Date End Date Husam Rosas MD [address] [place], [place] [id number] PCP - General 01/19/10 01/22/17 documented as of this encounter
--- OUTSIDE RECORDS SUMMARY | 2023-12-04 16:36 | XMS_ITS | Encounter Summary ---
Author Organization [facility] Address [facility] [place] [address] Care Team Providers Care Publicity Expert Name Role Phone Husam Rosas MD Primary Care Provider [phone] Reason for Visit * Reason Comments Medication Refill Encounter Details Date Type Department Care Team (Late st Contact Info) Description 01/01/2011 [place] [phone] Satya Wills MD [facility] [place] [address] Social History Tobacco Use Types Packs/Day Years [...] Telephone Encounter - Elodia Jaime LPN - 01/03/2011 1:24 PM EST Signed Rx faxed to pharmacy * Telephone Encounter - Elodia Jaime LPN - 01/03/2011 10:10 AM EST Last appointment: 10/01/10 Next scheduled appointment: 04/04/11 Medication Name: Vimpat Dose:200 mg BID Date of Last Rx: 12/16/09 Amnt:60 # of Refills: 5 documented in this encounter Plan of Treatment Upcoming Encounters Date Type Department Care Team (Late st Contact Info) Description 03/06/2024 1:30 PM EST [place] [address] Satya Wills MD [facility] [place] [address] documented as of this encounter Visit Diagnoses Not on filedocumented in this encounter Care Teams Publicity Expert Relationship Specialty Start Date End Date Husam Rosas MD [address] [place] [address] PCP - General 01/19/10 01/22/17 documented as of this encounter
--- OUTSIDE RECORDS SUMMARY | 2023-12-04 16:36 | XMS_ITS | Encounter Summary ---
Author Organization [facility] Address [facility] [place] [address] Care Team Providers Care Protocol Manager Name Role Phone Sarah Alejo EZRA Primary Care Provider [phone] Encounter Details Date Type Department Care Team (Late st Contact Info) Description 04/27/2005 [place] [address] Satya Wills MD [facility] [place] [address] Social History Tobacco Use Types Packs/Day Years [...] in a alf (including now)? No 10/24/2022 Sex and Gender Information Value Date Recorded Sex Assigned at Not on file Gender Identity Not on file Sexual Orientation Not on file documented as of this encounter Plan of Treatment Upcoming Encounters Date Type Department Care Team (Late st Contact Info) Description 03/06/2024 1:30 PM EST [place] [address] Satya Wills MD [facility] [place] [address] documented as of this encounter Procedures Procedure Name Priority Date/Time Associated Diagnosis Comments NON-SOFTWARE DEVELOPMENT LEADER FINAL REPORT Routine 04/27/2005 10:57 AM EST documented in this encounter Results * Non-Agronomy Manager Final Report (04/27/2005 10:57 AM EST) Non-Agronomy Manager Final Report [id number] ? Location: The signing pathologist has (i) examined the relevant preparation(s) for the specimen(s) and (ii) rendered or confirmed the diagnosis(es). . ? Pathology Non-Agronomy Manager Cytology Final Report Clinical Information Specimen Source: ? 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 Gross Description: ?? Rec'd ??fresh, approx. 6 ml. total volume of ?? clear, colorless fluid. ?Total Prep - ??Cys 2. Interpretation Specimen submitted is satisfactory. Diagnosis Negative for Malignancy 04/29/05 ?Screened by: ? RSU ?Rescreened by: ?? WAW 05/02/05 ?Verified by: ? Ale Pulido MD ? Pathologist ? (Electronic Signature) Comment Rare poorly-preserved (due to lack of immediate fixation) white blood cells are present. CHIARA CLIFFORD 04/27/2005 10:5 7 AM EST Satya Wills MD PATHOLOGY/CYTOLOGY O RDERABLES Performing Organization Address City/State/[facility] Co de Phone Number CHIARA CLIFFORD documented in this encounter Visit Diagnoses Not on filedocumented in this encounter Care Teams Protocol Manager Relationship Specialty Start Date End Date Sarah Alejo APRN [address] [place] [address] PCP - General Internal Medicine 11/06/19 documented as of this encounter
--- OUTSIDE RECORDS SUMMARY | 2023-12-04 16:36 | XMS_ITS | Encounter Summary ---
Author Organization [facility] Address [facility] [place] [address] Care Team Providers Care Compliance Clerk Name Role Phone Husam Rosas MD Primary Care Provider [phone] Encounter Details Date Type Department Care Team (Late st Contact Info) Description 03/12/2010 9:45 AM EST Office [place] [address] Andrew Ortega MD [facility] [place] [address] Discharge Disposition: Home Social History Tobacco Use [...] 1:30 PM EST [place] [address] Satya Wills MD [facility] [place] [address] documented as of this encounter Visit Diagnoses Not on filedocumented in this encounter Care Teams Compliance Clerk Relationship Specialty Start Date End Date Husam Rosas MD [address] [place] [address] PCP - General 01/19/10 01/22/17 documented as of this encounter
--- OUTSIDE RECORDS SUMMARY | 2023-12-04 16:36 | XMS_ITS | Encounter Summary ---
Author Organization [facility] Address [facility] [place] [address] Care Team Providers Care Abatement Worker Name Role Phone Husam Rosas MD Primary Care Provider [phone] Reason for Visit * Reason Onset Date Comments Medication Refill 08/31/2010 NEEDS REFILL Encounter Details Date Type Department Care Team (Late st Contact Info) Description 08/31/2010 [place] [address] Satya Wills MD [facility] [place] [address] Social History Tobacco Use Types Packs/Day Years [...] * Telephone Encounter - Michelle Gamble - 08/31/2010 11:18 AM EDT Hydroxyzine 25 mg 1 cap 2 x day [facility], [place], [place] [phone] documented in this encounter Plan of Treatment Upcoming Encounters Date Type Department Care Team (Late st Contact Info) Description 03/06/2024 1:30 PM EST [place] [address] Satya Wills MD [facility] [place] [address] documented as of this encounter Visit Diagnoses Not on filedocumented in this encounter Care Teams Abatement Worker Relationship Specialty Start Date End Date Husam Rosas MD [address] [facility] [place] [address] PCP - General 01/19/10 01/22/17 documented as of this encounter
--- OUTSIDE RECORDS SUMMARY | 2023-12-04 16:37 | XMS_ITS | Encounter Summary ---
Author Organization [facility] Address [address] [place] [address] Care Team Providers Care Private Wealth Advisor Name Role Phone Sarah Alejo ASSOCIATE EMBALMER/FUNERAL DIRECTOR Primary Care Provider [phone] Encounter Details Date Type Department Care Team (Late st Contact Info) Description 04/06/2022 Lab Requisition [facility] Pathology & Laboratory Medicine - [facility] [address] [place] [address] Outr Resulting Lab, Provider Social History Tobacco Use Types Packs/Day Years Used Date Smoking Tobacco: Every Day Cigarettes Smokeless Tobacco: Never Alcohol Use Standard [...] as of this encounter Plan of Treatment Not on file documented as of this encounter Procedures Procedure Name Priority Date/Time Associated Diagnosis Comments T CELL SUBSETS Routine 04/06/2022 12:30 EST HIV 1 RNA QUANTITATION Routine 04/06/2022 12:30 EST documented in this encounter Results * (ABNORMAL) HIV 1 RNA QUANTITATION (04/06/2022 12:30 EST) HIV RNA Detection, Qual Detected( A) Undetected copies/mL 04/07/2022 14:37 EST [facility] HIV 1 RNA Quant 88(H) Undetected copies/mL 04/07/2022 14:37 EST [facility] Blood VENOUS BLOOD / Unknown 04/06/2022 12:30 EST 04/06/2022 21:45 EST Narrative [facility] - 04/07/2022 14:37 EST The quantification range of this assay is 20 IU/mL to 10,000,000 IU/mL. ??Testing was performed using the Diamond HIV test ([employer] with the diamond Voxware0 System. Provider Outr Resulting Lab CHEMISTRY & BLOOD GAS ORDERABLES Performing Organization Address [facility] Co de Phone Number [facility] [address] [place] [address] * (ABNORMAL) T CELL SUBSETS (04/06/2022 12:30 EST) % CD3 90(H) 56 - 84 % 04/07/2022 12:59 [facility] % CD4 6(L) 31 - 64 % 04/07/2022 12:59 [facility] % CD8 83(H) 9 - 39 % 04/07/2022 12:59 [facility] Absolute CD3 3,319(H) 840 - 2,669 Cells/uL 04/07/2022 12:59 [facility] Absolute CD4 228(L) 488 - 1,734 Cells/uL 04/07/2022 12:59 [facility] Absolute CD8 >2,243(H) 154 - 1,097 Cells/uL 04/07/2022 12:59 [facility] 4/8 Ratio 0.07(L) >=0.90 04/07/2022 12:59 [facility] Blood VENOUS BLOOD / Unknown 04/06/2022 12:30 EST 04/07/2022 8:14 EST Provider Outr Resulting Lab IMMUNOLOGY A ND SEROLOGY ORDERABLES Performing Organization Address [facility] Co de Phone Number [facility] [address] [place] [phone] documented in this encounter Visit Diagnoses Not on filedocumented in this encounter Care Teams Private Wealth Advisor Relationship Specialty Start Date End Date Sarah Alejo, CAROLE [address] [place] [address] PCP - General 09/20/18 documented as of this encounter
--- OUTSIDE RECORDS SUMMARY | 2023-12-04 16:37 | XMS_ITS | Encounter Summary ---
Author Organization [facility] Address [address] [place] [address] Care Team Providers Care Cable Former Name Role Phone Sarah Alejo CAFE OR RESTAURANT MANAGER Primary Care Provider [phone] Reason for Visit * Reason Onset Date Comments Follow-up 10/18/2021 Encounter Details Date Type Department Care Team (Late st Contact Info) Description 10/18/2021 Telephone [facility] Infectious Disease - [facility] [address] [place], [place] [address] Antony Myers, DO [address] [facility], [address] [place] [address] Follow-up Social History Tobacco Use Types Packs/Day [...] on file documented as of this encounter Ordered Prescriptions Prescription Sig Dispensed Refills Start Date End Da te tenofovir alafenamide (VEMLIDY) 25 mg tablet Take 1 Tablet by mouth daily. 90 Tablet 3 10/18/2021 10/13/2022 dolutegravir (TIVICAY) 50 mg tablet Take 1 Tablet by mouth 2 times daily. 180 Tablet 3 10/18/2021 10/13/2022 lamiVUDine (EPIVIR) 150 mg tablet Take 1 Tablet by mouth 2 times daily. 180 Tablet 3 10/18/2021 10/13/2022 documented in this encounter Miscellaneous Notes * Addendum Note - Kraig Mendoza RPH - 10/18/2021 1653 EDTAddended by: KRAIG MENDOZA on: 10/18/2021 16:53 Modules accepted: Orders * Telephone Encounter - Antony Myers DO - 10/18/2021 1636 EDT Pt needed new rx for dolutegravir 50 mg p.o. twice daily, 3TC 150 mg twice daily and TAF 25 mg daily sent to the [facility] pharmacy so that they can continue her mail order medications. documented in this encounter Plan of Treatment Not on file documented as of this encounter Visit Diagnoses Not on filedocumented in this encounter Discontinued Medications Medication Sig Discontinue Reason Start Date End Da te lamiVUDine (EPIVIR) 150 mg tabletIndications:AIDS (acquired immune deficiency syndrome) (HCC-CMS),Symptomatic HIV infection (HCC-CMS) Take 1 Tablet by mouth every 12 hours. Duplicate order 08/23/2021 10/18/2021 dolutegravir 50 mg tablet Take 1 Tab by mouth 2 times daily. Reorder 08/09/2017 10/18/2021 tenofovir alafenamide fumarate (VEMLIDY) 25 mg tablet Take 25 mg by mouth daily. Reorder 08/09/2017 10/18/2021 documented as of this encounter Orders Medications Ordered That Fredo ht Not Have Been Administered Count Last Ordered Date First Ordered Date dolutegravir (TIVICAY) tablet 50 mg 1 10/18 tenofovir alafenamide (VEMLI DY) tablet 25 mg 1 10/18/2021 documented in this encounter Care Teams Cable Former Relationship Specialty Start Date End Date Sarah Alejo NP [address] [place] [address] PCP - General 09/20/18 documented as of this encounter
--- OUTSIDE RECORDS SUMMARY | 2023-12-04 16:37 | XMS_ITS | Encounter Summary ---
Author Organization [facility] Address [address] [place] [address] Care Team Providers Care Geoscience Professor Name Role Phone Sarah Alejo CRO Primary Care Provider [phone] Encounter Details Date Type Department Care Team (Latest Contact Info) Description 01/16/2023 Specialty Pharmacy [facility] [address] [place], [place] [id number] Michael Herrera [facility] Refill Coordination Outreach (1 time occurrence) for HIV Social History Tobacco Use Types Packs/Day Years [...] on filedocumented in this encounter Care Teams Geoscience Professor Relationship Specialty Start Date End Date Sarah Alejo NP [address] [place] [address] PCP - General 09/20/18 documented as of this encounter
--- OUTSIDE RECORDS SUMMARY | 2023-12-04 16:37 | XMS_ITS | Encounter Summary ---
Author Organization [facility] Address [address] [place] [address] Care Team Providers Care Billing Rep Name Role Phone Gina Alejoyce Nancy ROCK LOADER Primary Care Provider [phone] Encounter Details Date Type Department Care Team (Late st Contact Info) Description 07/03/2023 Refill [facility] Infectious Disease - [facility] [address] [place], [place] [phone] Michael Herrera RPH Social History Tobacco Use Types Packs/Day Years [...] Dispensed Refills Start Date End Da te cabotegravir-rilpivirine (CABENUVA) 600 mg/3 mL- 900 mg/3 mL injectable suspensionIndications:Sympt omatic HIV infection (HCC-CMS) Inject 6 mL into the muscle every 8 weeks. 6 mL 7 07/03/2023 documented in this encounter Progress Notes * Michael Herrera RPH - 07/03/2023 0949 EDT Refill request received for injectable cabotegravir/rilpivirine (Cabenuva) from pharmacy. Refill request processed and sent electronically to patient's preferred pharmacy. Michael Herrera, PharmD Ambulatory Pharmacist [facility] Infectious Disease 07/03/2023 Med Orders Placed This Visit and Additions to the Medication List Medications cabotegravir-rilpivirine (CABENUVA) 600 mg/3 mL- 900 mg/3 mL injectable suspension Sig: Inject 6 mL into the muscle every 8 weeks. Dispense: 6 mL Refill: 7 SPRX. Ship to nurse Brittanie Pina, do not ship directly to patient. documented in this encounter Plan of Treatment Not on file documented as of this encounter Visit Diagnoses Diagnosis Symptomatic HIV infection ([facility]-CMS)- Primary Human immunodeficiency virus [HIV] disease documented in this encounter Discontinued Medications Medication Sig Discontinue Reason Start Date End Da te dolutegravir (TIVICAY) 50 mg tablet Take 1 Tablet by mouth 2 times daily. Alternate therapy 03/28/2023 07/03/2023 lamiVUDine (EPIVIR) 150 mg tablet Take 1 Tablet by mouth 2 times daily. Alternate therapy 03/28/2023 07/03/2023 tenofovir alafenamide (VEMLIDY) 25 mg tablet Take 1 Tablet by mouth daily. Alternate therapy 03/28/2023 07/03/2023 cabotegravir-rilpivirine (CABENUVA) 600 mg/3 mL- 900 mg/3 mL injectable suspensionIndications:Sym ptomatic HIV infection ([facility]) Inject 6 mL into the muscle every 4 weeks. Reorder 04/19/2023 07/03/2023 documented as of this encounter Care Teams Billing Rep Relationship Specialty Start Date End Date Sarah Alejo NP [address] [place] [address] PCP - General 09/20/18 documented as of this encounter
--- OUTSIDE RECORDS SUMMARY | 2023-12-04 16:37 | XMS_ITS | Encounter Summary ---
Author Organization [facility] Address [address] [place] [address] Care Team Providers Care Overage Shortage And Damage Clerk Name Role Phone Sarah Alejo STEAM TRAP WORKER Primary Care Provider [phone] Encounter Details Date Type Department Care Team (Latest Contact Info) Description 02/22/2023 Specialty Pharmacy [facility] [address] [place], [place] [address] Crow Silverman RPH Refill Coordination Outreach (1 time occurrence) for [...] on filedocumented in this encounter Care Teams Overage Shortage And Damage Clerk Relationship Specialty Start Date End Date Sarah Alejo NP [address] [place] [address] PCP - General 09/20/18 documented as of this encounter
--- OUTSIDE RECORDS SUMMARY | 2023-12-04 16:37 | XMS_ITS | Encounter Summary ---
Author Organization [facility] Address [address] [place] [address] Care Team Providers Care Lost Charge Card Clerk Name Role Phone Sarah Alejo Nancy CLINICAL QUALITY MANAGER Primary Care Provider [phone] Encounter Details Date Type Department Care Team (Late st Contact Info) Description 10/12/2022 Specialty Pharmacy [facility] - Main [place] [address] [place], [place] [address] Licha Chua, [facility] Social History Tobacco Use Types Packs/Day Years [...] as of this encounter Progress Notes * Niall Morris - 10/12/2022 1141 EDT Specialty Pharmacy Documentation Medication: Lamivudine, Vemlidy + Tivicay Clinic: HIV Reason for Encounter: Documentation Notes: Rx requested for all three medications Follow up date: 10/13/22 Follow up reason: outreach * Licha Dunlap - 10/12/2022 1141 EDT Still awaiting refills. documented in this encounter Plan of Treatment Not on file documented as of this encounter Visit Diagnoses Not on filedocumented in this encounter Care Teams Lost Charge Card Clerk Relationship Specialty Start Date End Date Sarah Alejo, CAROLE [address] [place] [address] PCP - General 09/20/18 documented as of this encounter
--- OUTSIDE RECORDS SUMMARY | 2023-12-04 16:37 | XMS_ITS | Encounter Summary ---
Author Organization [facility] Address [address] [place] [address] Care Team Providers Care Copy Editor Name Role Phone Sarah Alejo LONGWALL HEADGATE OPERATOR Primary Care Provider [phone] Encounter Details Date Type Department Care Team (Late st Contact Info) Description 06/03/2022 Specialty Pharmacy [facility] - Main [place] [address] [place], [place] [address] Licha Chua, [facility] Social History Tobacco Use Types Packs/Day Years [...] as of this encounter Progress Notes * Licha Dunlap - 06/03/2022 1619 EDT Specialty Pharmacy Documentation Medication: Tivicay, Vemlidy, Lamivudine Clinic: HIV Reason for Encounter: outreach Notes: RTS until 06/04 Follow up date: 06/06 Follow up reason: outreach documented in this encounter Plan of Treatment Not on file documented as of this encounter Visit Diagnoses Not on filedocumented in this encounter Care Teams Copy Editor Relationship Specialty Start Date End Date Sarah Alejo NP [address] [place] [address] PCP - General 09/20/18 documented as of this encounter
--- OUTSIDE RECORDS SUMMARY | 2023-12-04 16:37 | XMS_ITS | Encounter Summary ---
Author Organization [facility] Address [address] [place] [address] Care Team Providers Care Welder Helper Name Role Phone Sarah Alejo INSURANCE BROKER Primary Care Provider [phone] Encounter Details Date Type Department Care Team (Late st Contact Info) Description 09/08/2022 Specialty Pharmacy [facility] - Main [place] [address] [place], [place] [address] Licha Chua, [facility] Social History Tobacco Use Types Packs/Day [...] on filedocumented in this encounter Care Teams Welder Helper Relationship Specialty Start Date End Date Sarah Alejo NP [address] [place] [address] PCP - General 09/20/18 documented as of this encounter
--- OUTSIDE RECORDS SUMMARY | 2023-12-04 16:37 | XMS_ITS | Encounter Summary ---
Author Organization [facility] Address [address] [place] [address] Care Team Providers Care Assembler Insulator Name Role Phone Sarah Alejo CITY MAINTENANCE MANAGER Primary Care Provider Encounter Details Date Type Department Care Team (Late st Contact Info) Description 01/25/2023 Lab Requisition [facility] Pathology & Laboratory Medicine - [facility] [address] [place] [address] Outr Resulting Lab, Provider Social History Tobacco [...] Associated Diagnosis Comments T CELL SUBSETS Routine 01/25/2023 13:35 EST HIV 1 RNA QUANTITATION Routine 01/25/2023 13:35 EST documented in this encounter Results * (ABNORMAL) HIV 1 RNA QUANTITATION (01/25/2023 13:35 EST) HIV RNA Detection, Qual Detected( A) Undetected copies/mL 01/26/2023 13:10 EST [facility] HIV 1 RNA Quant 867(H) Undetected copies/mL 01/26/2023 13:10 [facility] Blood VENOUS BLOOD / Unknown 01/25/2023 13:35 EST 01/25/2023 22:10 EST Narrative [facility] - 01/26/2023 13:10 EST The quantification range of this assay is 20 IU/mL to 10,000,000 IU/mL. ??Testing was performed using the Diamond HIV test ([employer] with the diamond Oktogo0 System. Provider Outr Resulting Lab CHEMISTRY & BLOOD GAS ORDERABLES Performing Organization Address City/[facility] Co de Phone Number [facility] [address] [place] [address] * (ABNORMAL) T CELL SUBSETS (01/25/2023 13:35 EST) % CD3 93(H) 56 - 84 % 01/27/2023 11:36 [facility] % CD4 4(L) 31 - 64 % 01/27/2023 11:36 [facility] % CD8 89(H) 9 - 39 % 01/27/2023 11:36 [facility] Absolute CD3 1,176 840 - 2,669 Cells/uL 01/27/2023 11:36 [facility] Absolute CD4 50(L) 488 - 1,734 Cells/uL 01/27/2023 11:36 [facility] Absolute CD8 1,133(H) 154 - 1,097 Cells/uL 01/27/2023 11:36 [facility] 4/8 Ratio 0.04(L) >=0.90 01/27/2023 11:36 [facility] Blood VENOUS BLOOD / Unknown 01/25/2023 13:35 EST 01/25/2023 22:10 EST Provider Outr Resulting Lab IMMUNOLOGY A ND SEROLOGY ORDERABLES Performing Organization Address City/[facility]/ZIP Co de Phone Number [facility] [address] [place] [address] documented in this encounter Visit Diagnoses Not on filedocumented in this encounter Care Teams Assembler Insulator Relationship Specialty Start Date End Date Sarah Alejo, [address] [place] [address] PCP - General 09/20/18 documented as of this encounter
--- OUTSIDE RECORDS SUMMARY | 2023-12-04 16:37 | XMS_ITS | Encounter Summary ---
Author Organization [facility] Address [address] [place] [address] Care Team Providers Care Sas Etl Developer Name Role Phone Sarah Alejo SECTION GANG Primary Care Provider [phone] Encounter Details Date Type Department Care Team (Late st Contact Info) Description 11/28/2022 Orders Only [facility] Ambulatory Pharmacy - [facility] [address], [place] [address] Michael Herrera, [facility] Social History Tobacco Use Types Packs/Day [...] Diagnoses Not on filedocumented in this encounter Historical Medications * This list may reflect changes made after this encounter. Medication Sig Dispensed Refills Start Date End Date potassium chloride (KAYCIEL) 20 mEq/15 mL oral solution Take 15 mL by mouth 2 times daily. 11/14/2022 added in this encounter Care Teams Sas Etl Developer Relationship Specialty Start Date End Date Sarah Alejo NP [address] [place] [address] PCP - General 09/20/18 documented as of this encounter
--- OUTSIDE RECORDS SUMMARY | 2023-12-04 16:37 | XMS_ITS | Encounter Summary ---
Author Organization [facility] Address [address] [place] [address] Care Team Providers Care Product Operations Associate Name Role Phone Sarah Alejo PATCHER Primary Care Provider [phone] Encounter Details Date Type Department Care Team (Late st Contact Info) Description 11/12/2021 Specialty Pharmacy [facility] Ambulatory Pharmacy - [address] [place] [address], [place] [id number] Licha Chua, [facility] Social History Tobacco Use Types Packs/Day Years [...] as of this encounter Progress Notes * Elodia Almaguer - 11/12/2021 1522 EDT Specialty Pharmacy Documentation Medication: Lamivudine + Vemlidy + Tivicay Clinic: [facility] HIV Reason for Encounter: Outreach Notes: All 3 meds RTS until 11/14 Follow up date: 11/15/21 Follow up reason: Outreach * Christine Díaz - 11/12/2021 1522 EDT [facility] Specialty Pharmacy Delivery Information Hours: Monday-Monday 8:30am - 5:00pm *Pharmacist available electrical contractor 19/09 Delivery Service: [facility] Delivery Window: 10am - 2pm Date of Delivery: 11/24/2021 Tracking # : [id number] documented in this encounter Plan of Treatment Not on file documented as of this encounter Visit Diagnoses Not on filedocumented in this encounter Care Teams Product Operations Associate Relationship Specialty Start Date End Date Sarah Alejo NP [address] [place] [address] PCP - General 09/20/18 documented as of this encounter
--- OUTSIDE RECORDS SUMMARY | 2023-12-04 16:37 | XMS_ITS | Encounter Summary ---
Author Organization [facility] Address [address] [place] [address] Care Team Providers Care Currency Exchange Specialist Name Role Phone Sarah Alejo STONE CHIMNEY MASON Primary Care Provider [phone] Encounter Details Date Type Department Care Team (Late st Contact Info) Description 05/06/2022 Specialty Pharmacy [facility] Ambulatory Pharmacy - Main [place] [address] [place], [place] [address] Licha Chua, [facility] Social History Tobacco Use Types Packs/Day Years [...] filedocumented in this encounter Care Teams Currency Exchange Specialist Relationship Specialty Start Date End Date Sarah Alejo NP [address] [place] [address] PCP - General 09/20/18 documented as of this encounter
--- OUTSIDE RECORDS SUMMARY | 2023-12-04 16:37 | XMS_ITS | Encounter Summary ---
Author Organization [facility] Address [address] [place] [address] Care Team Providers Care Licensed Practical Nurse Instructor Name Role Phone MeloSarah METAL SPONGE MAKING MACHINE OPERATOR Primary Care Provider [phone] Reason for Visit * Reason Comments Follow-up Encounter Details Date Type Department Care Team (Late st Contact Info) Description 05/22/2023 10:00 EDT Telemedicine [facility] Infectious Disease - [address] [id number] Antony Myers, [address] [facility], [address] [place] [address] AIDS (acquired immune deficiency syndrome) ([facility]) (Primary Dx) Social History Tobacco Use Types [...] as of this encounter Progress Notes * Antony Myers DO - 05/22/2023 1000 EDT Images from the original note were not included. I spent a total of 55 minutes on the date of this encounter meeting with the patient and reviewing documentation/coordinating care as described in the above note. No procedures were performed at the time of the visit. Division of Infectious Disease Follow up/Progress Note 05/22/23 10:53 TELEMEDICINE VIDEO VISIT Today's visit was provided through telemedicine video conferencing: I have reviewed the appropriateness of using video technology with the patient with regards to today's visit. The location of the patient : Home (where patient lives) Patient location state: Visit Location State: [place] The location of the provider: Office Provider location state: Visit Location State: [place] The following people and their roles were present for today's visit: Appointment Provider: Antony Myers, DO Antony Myers, DO The concept of ???Telemedicine?? has been described to the patient.? Patient has been informed of the anticipated benefits and possible risks.? Patient understands the information provided regardingtelemedicine, has had the opportunity to ask questions about this information, and all questions have been answered to patient???s satisfaction. Patient consents for the use of telemedicine in his/her medical care and authorizes the transmission of any relevant medical information to providers and their staff involved in patient???s medical or mental health care. Patient understands that they maybe responsible for copays, deductible or coinsurance for this service. Pt has [employer] insurance so we cannot bill for this telehealth visit. Will code as [id number] HPI: Ms. Pacheco is a 67y.o. female with history significant for HIV/AIDS diagnosed 1990, recalcitrant seizure disorder, severe untreated depression and esophageal dysmotility/strictures who presentswith routine HIV follow up. We are trying to see her frequently to continue to work on the challenge of her adherence with her ART in the setting of her depression and esophageal dysmotility. With pharmacy assistance in facilitating mail order, direct home delivery, patient made a remarkable rebound in [id number]. However, due to return of esophageal strictures and poor adherence to all her meds, most recent Labs from Oct 2022 show HIV VL 65,200 and CD4 86 and repeat studies 01/25/2023 showed viral load 867, CD4 count 50 at 4% and more recent labs March 2023 showing HIV viral load <20. Pt had been on Dolutegravir 50mg BID, 3TC 150mg tablet BID and TAF 25 mg daily for years until May 2023 when patient successfully got her viral load undetectable and was transitioned to Cabenuva (planned for next week); She is also on bactrim suspension for PJP prophy As background: In the 2016 timeframe, patient transferred her care from [facility] ID clinic to the [facility] in [facility]. A lengthy review of ID notes from [facility] indicate that patient would frequently have viremia, genotypes always showed wild-type virus so it was presumed she just wasn't taking her meds. There is always a question over the years of significant alcohol use as well but that does not seem to be a problem in the last few years. Her main difficulty for years in adhering to her ART was swallowing difficulties. She is finally plugged back into GI at [facility] again which has been incredibly helpful as they have dilated her esophagus several times. At this point in time, patient states she has no problem swallowing any of her medic ations. After her brief admission to [facility] back in February 2020 for diarrhea and dehydration she transferredto a local SNF but unfortunately, she signed out AMA but globally is doing much better now. Returned to neurology at [facility] in 2020. Most recent visit in Nov 2020, the plan was to stay the course. Pt was reporting about 1 seizure per month which was improved/stable which resulted in pt falling on floor/contusion to her forehead. She does not drive a car. She remains without any social supports, lives alone, does not have transportation so relies on walking for groceries etc. and most interactions with [facility] recently have been home visits that Brittanie makes. When she started utilizing the mail order pharmacy [id number] time frame, and Brittanie continued makinghouse calls to draw blood, perform adherence checks etc., patient made a remarkable rebound. However, patient's overall health is taken a downturn in the past 6 months of 2022 and patient remains socially isolated, reluctant to engage in care, reluctant to advocate for herself etc. July 2022 update: Unfortunately, patient seems to have taken a downward turn again. It is always been a concern of ours but her esophageal strictures returned and she did not inform anyone so she went for a significant period of time not being able to tolerate her pills. It is unclear why she waitsuntil her visit with HIV providers for this to come to light. During July visit, she acknoledges she has good access to GI at [facility] to let them know this. October 2022 update: Unfortunately, patient never followed through making her appointment with GI. Her esophageal strictures have worsened which have interfered with taking all her medications (including antiseizure's). Labs confirm this as the patient has had remarkable drop in CD4 count and spike and HIV viral load. Patient was seen today with telehealth as her HIV nurse practitioner went to her house to help facilitate this visit. Patient admits to being off all my medications for several weeks now due to the esophageal strictures. With regards to her diarrhea, has been a chronic problem. She currently admits to having 3-4 watery stools daily. No blood, no abdominal pain. Of note, patient's diarrhea led to admission about 2 years ago. Trying to do an ID work-up considering her psychosocial situation has been a challenge. Differential diagnosis of diarrhea in the setting of AIDS is obviously quite extensive. December 2022 update: Brittanie made a home visit 01/25/2023 to draw blood. Patient appeared frail but was otherwise stable. Labs drawn on that day showed creatinine 1.4, potassium 3.3, AST 47, ALT 40, sodium 135, WBC 1.64, hematocrit 20.2, platelets 61. Due to these values, a hospitalist at [facility] called the patient that evening and recommended she come to the ER for admission etc. Patient refused. Hospitalist then called police for a wellness check and per the patient report, she sent the police away. January 2023 update: She continues to have chronic diarrhea which has been present for years. Her p.o. intake seems to be improved although it is always very frustrating to try to quantify exactly what percentage of her HIV medications she actually keeps down. April 2023 update: Now that VL < 20, will start Cabenuva May 2023. Past Medical History: Epilepsy with refractory seizures and required surgery for partial temporal lobectomy, followed neurology at [facility]. Cervical dysplasia Obesity HLD Esophageal stricture, requiring dilation x 2 in past at [facility], and again more recently in March 2020.. Herpes zoster 2011 Anal fissures ? Etoh abuse, this is always been a concern. Poor adherence with ART chronically, largely to 2 esophageal motility disorder and underlying depression. Severe, untreated depression Active smoker Past Surgical History: 2017 Craniotomy for seizures complicated by subdural hematoma Shira botox injections for headaches [place] x 4, last one at [facility] 2020 Epiglottis surgery x 3 Hemorrhoid banding 2014 Esophageal dilatation [facility] 2019, March 2020, Oct 2022, Feb 2023 Med list Oct 2022 No Known Allergies Social History Tobacco: 2 packs/week. Alcohol: After years of very heavy drinking, then years of denying use, it sounds like patient is drinking beer/wine again in the 2022 timeframe but difficult to quantify. Recreational drugs: Marijuana, last use about 2 months ago. Herbal:none Professional: Not working, suspect patient is on disability Relationships / Living Situation: Living alone, essentially no local support. Son is estranged. After years of Brittanie and I recommending patient change her apartment to get a safer, friendly in her environment, patient finally agreed in spring 2022 but she has failed to make the steps needed to change her environment. Sexual: Not currently sexually active Exercise: Limited Travel: From [place], went to [place] in , then went to [place] and now in [place]. [place] on vacation. Animal exposure: no pets PE weight: 270 pounds. Patient bright, interactive. Looks good via telehealth link today. February 2019 VL 3939 February 2019 CD4 63 at 6% August 2019 VL 28,000 August 2019 CD4 Feb VL 10,000 Feb 2020 CD4 23 June 2020 viral load 1007 May 2020 CD4 178 Dec 2020 VL 56,400 Dec 2020 CD4 Jan VL 23 Apr 2021 VL < 18 Apr 2021 CD4 145 June 2021 VL <16 Jul 2021 CD4 134 December 2021 viral load < 16 January 2022 CD4 count 120 March 2022 CD4 count 228 March 2022 viral load June viral load 1280 Oct 2022 CD4 86 Oct 2022 VL 65,200, genotype: no resistance genes December 2022 C4 50 at 10% December 2022 HIV viral load 867 March 2023 HIV VL < 20 Assessment and Plan: 1) HIV - ART: Dolutegravir 50mg po BID, 3TC 150 mg twice daily tablet, 25mg TAF daily, in the past, transition to Cabenuva planning for 29 May 2023 -Most recent CD4 count December 2022 50 at 10% -Most recent HIV VL Mar 2023 <20. - OI prophylaxis: Keep up liquid bactrim. - Compliance: Very poor secondary to esophageal strictures in the past 6 months - Sexual activity: None - HBV/HCV: Hep C Ab neg 2014, hep B surface ab neg/hep B surface ag neg. - PCM is at [facility] but patient has not been engaging in primary care which obviously is a detriment. Patient was scheduled for a new primary care provider at the [facility] butnow is trying to establish primary care at [facility]. -Follow-up in 1 month for HIV viral load early June 2023 we can hold off on CD4 count for a little while as I suspect it will take some time to recover. 2) Health maintenance - Colonoscopy: 2020 - Immunizations:Prevnar 13 in 2012, pneumovax 2009 and 2019. Tdap in 2019. Covid vaccine 2020 #3 and #4 all UTD. Patient will need to get flu/COVID boosters 2023. - Pap: Last pap May 2020, normal by report - Mammogram:In 2020, normal by report 3) Seizures that have been recalcitrant to medications and required a craniectomy-partial lobectomyat [facility] that was complicated by a postop bleed several years ago. She is now back with her original neurologist from [facility]. Having infrequent breakthrough seizures but they seem improved recently probably related to better adherence with her meds. Neurology plan for now is to stay the course. She does not drive a car. Follow up with neurology in [facility] as scheduled 28 February 2023 4) Depression, always will be her largest problem that has made all other clinical concerns difficult for her to manage. Patient does not follow-up with her primary care provider regarding depression. Brittanie and I continue to discuss with her the importance of eventually finding a new place to live,perhaps a alf type setting to improve patient's interactions with other people. 5) PCM, unfortunately, patient still indecisive about who and where she will get her primary care. Ideally, she chooses a primary care provider in [facility] as that is where her GI and neurology subspecialist are. 6) Active smoking, pt not interested in quitting now. 7) Esophageal strictures have been a massive hindrance to good adherence with Sz/HIV meds in past. Treated with esophageal dilatation several times in 2015 at [facility] and after a long hiatus of being lost to follow-up, she was dilated in January 2020 and again in March 2020 where were incredibly helpful but symptoms returned this spring 2022 and were readdressed with another esophageal dilatation in the October 2022 and February 2023 timeframe. Patient seems back on track but this short window of time has given us the opportunity to get her viral load undetectable and therefore we can transition to IM HIV medication. Patient has follow-up scheduled with [facility] GI in 2 months per her report. 8) Poor dentition, this has been a problem for years and is always been a challenge to get the patient into see a dentist. 9) Diarrhea, differential very broad and symptoms have been chronic, almost for years. No fevers orabdominal pain. Symptoms seem stable. 10) Severe anemia per PCM 11) Significant thrombocytopenia, differential broad. We will not bill for this visit because patient has [employer] insurance, and they will not cover telehealth visits today. Will code as [id number] Antony Myers DO Pager [phone] Currently employed: No Adherence counseling: Yes Linguistic services: No Patient with HIV (-) partner: Not applicable HIV (-) partner tested within the last 12 months: Not applicable Partner notification discussed: Not applicable Social History Social History Tobacco Use Smoking Status Current Every Day Smoker Packs/day: 0.50 Smokeless Tobacco Never Used Smoking cessation discussed: Yes Gonorrhea and chlamydia testing done in the past year: No, not sexually active in the past 12 mos Oral exam done at this visit: No Seen by dentist in the past year. No Referred to dentist at this visit: No Housing: Stable HIV risk reduction counseling: Yes Screened for mental health: Yes Screened for substance abuse: Yes Current substance use (used more than once in the past 12 months): Alcohol April 2023 update: documented in this encounter Plan of Treatment Not on file documented as of this encounter Visit Diagnoses Diagnosis AIDS (acquired immune deficiency syndrome) ([facility])- Primary Human immunodeficiency virus [HIV] disease documented in this encounter Care Teams Licensed Practical Nurse Instructor Relationship Specialty Start Date End Date Sarah Alejo NP [address] [place] [address] PCP - General 09/20/18 documented as of this encounter
--- OUTSIDE RECORDS SUMMARY | 2023-12-04 16:37 | XMS_ITS | Encounter Summary ---
Author Organization [facility] Address [address] [place] [address] Care Team Providers Care Associate Program Manager Name Role Phone Sarah Alejo READING TUTOR Primary Care Provider [phone] Encounter Details Date Type Department Care Team (Late st Contact Info) Description 02/11/2022 Specialty Pharmacy [facility] Ambulatory Pharmacy - Main [place] [address] [place], [place] [phone] Licha Chua, [facility] Social History Tobacco Use Types Packs/Day [...] as of this encounter Progress Notes * María Rivers - 02/11/2022 1122 EST [facility] Specialty Pharmacy Delivery Information Hours: Monday-Monday 8:30am - 5:00pm *Pharmacist available radiation protection specialist 19/09 Delivery Service: [facility] Delivery Window: 10am - 2pm Date of Delivery: 02/18/22 Tracking # : [id number] documented in this encounter Plan of Treatment Not on file documented as of this encounter Visit Diagnoses Not on filedocumented in this encounter Care Teams Associate Program Manager Relationship Specialty Start Date End Date Sarah Alejo, [address] [place] [address] PCP - General 09/20/18 documented as of this encounter
--- OUTSIDE RECORDS SUMMARY | 2023-12-04 16:37 | XMS_ITS | Encounter Summary ---
Author Organization [facility] Address [address] [place] [address] Care Team Providers Care Bag Worker Name Role Phone Sarah Alejo RESIDENTIAL LEASING MANAGER Primary Care Provider [phone] Encounter Details Date Type Department Care Team (Late st Contact Info) Description 01/13/2022 Lab Requisition [facility] Pathology & Laboratory Medicine - [facility] [address] [place] [address] Outr Resulting Lab, Provider Social History Tobacco [...] Associated Diagnosis Comments T CELL SUBSETS Routine 01/12/2022 16:50 EST HIV 1 RNA QUANTITATION Routine 01/12/2022 16:50 EST documented in this encounter Results * HIV 1 RNA QUANTITATION (01/12/2022 16:50 EST) HIV RNA Detection, Qual Undetected Undetected copies/mL 01/17/2022 12:28 EST [facility] Blood VENOUS BLOOD / Unknown 01/12/2022 16:50 EST 01/13/2022 16:49 EST Narrative [facility] - 01/17/2022 12:28 EST The quantification range of this assay is 20 IU/mL to 10,000,000 IU/mL. ??Testing was performed using the Diamond HIV test ([employer] with the diamond 6800 System. Provider Outr Resulting Lab CHEMISTRY & BLOOD GAS ORDERABLES Performing Organization Address [facility] Co de Phone Number [facility] [address] [place] [address] * (ABNORMAL) T CELL SUBSETS (01/12/2022 16:50 EST) % CD3 87(H) 56 - 84 % 01/14/2022 13:41 [facility] % CD4 8(L) 31 - 64 % 01/14/2022 13:41 [facility] % CD8 78(H) 9 - 39 % 01/14/2022 13:41 [facility] Absolute CD3 1,289 840 - 2,669 Cells/uL 01/14/2022 13:41 [facility] Absolute CD4 120(L) 488 - 1,734 Cells/uL 01/14/2022 13:41 [facility] Absolute CD8 1,155(H) 154 - 1,097 Cells/uL 01/14/2022 13:41 [facility] 4/8 Ratio 0.10(L) >=0.90 01/14/2022 13:41 [facility] Blood VENOUS BLOOD / Unknown 01/12/2022 16:50 EST 01/14/2022 9:03 EST Provider Outr Resulting Lab IMMUNOLOGY A ND SEROLOGY ORDERABLES Performing Organization Address [facility] Co de Phone Number [facility] [address] [place] [address] documented in this encounter Visit Diagnoses Not on filedocumented in this encounter Care Teams Bag Worker Relationship Specialty Start Date End Date Sarah Alejo, [address] [place] [address] PCP - General 09/20/18 documented as of this encounter
--- OUTSIDE RECORDS SUMMARY | 2023-12-04 16:37 | XMS_ITS | Encounter Summary ---
Author Organization [facility] Address [address] [place] [address] Care Team Providers Care Oven Equipment Repairer Name Role Phone Sarah Alejo LEAD OPERATOR Primary Care Provider Reason for Visit * Reason Comments Follow-up Encounter Details Date Type Department Care Team (Late st Contact Info) Description 09/25/2023 9:30 EDT Telemedicine [facility] Infectious Disease - [address] [id number] Antony Myers, [address] [facility], [address] [place] [address] AIDS (acquired immune deficiency syndrome) ([facility]) (Primary Dx) Social History Tobacco Use Types [...] Progress Notes * Antony Myers DO - 09/25/2023 0930 EDT Images from the original note were not included. I spent a total of 30 minutes on the date of this encounter meeting with the patient and reviewing documentation/coordinating care as described in the above note. No procedures were performed at the time of the visit. Division of Infectious Disease Follow up/Progress Note Telephone visit 09/25/23 9:35 The location of the patient : Home (where patient lives) Patient location state: Visit Location State: [place] The location of the provider: Office [place] Provider location state: Visit Location State: [place] The concept of ???Telemedicine?? has been described [...] copays, deductible or coinsurance for this service. HPI: Ms. Pacheco is a 68y.o. female with history significant for HIV/AIDS diagnosed [...] delivery, patient made a remarkable rebound in [phone]. However, due to return of esophageal strictures and poor adherence to all her meds, most recent Labs from Oct 2022 show HIV VL 65,200 and CD4 86 and repeat studies 01/25/2023 showed viral load 867, Dec 2022: CD4 count 50 at 4% and more recent labs July 2023 showing HIV viral load <20. Pt had been on Dolutegravir 50mg BID, 3TC 150mg tablet BID and TAF 25 mg daily for years until May 2023 when patient successfully got her viral load undetectable and was transitioned to Cabenuva She is also on bactrim suspension for PJP prophy As background: In the 2016 timeframe, patient transferred her care from [facility] ID clinic to the [facility] in [facility]. A lengthy review of ID notes from [facility] indicate that patient would frequently have viremia, [...] is finally plugged back into GI at [facility] again which has been incredibly helpful as they have dilated her esophagus several times. At this point in time, patient states she has no problem swallowing any of her medic ations. After her brief admission to [facility] back in February 2020 for diarrhea and dehydration she transferredto a local SNF but unfortunately, she signed out AMA but globally is doing much better now. Returned to neurology at [facility] in 2020. Most recent visit in Nov [...] for groceries etc. and most interactions with [facility] recently have been home visits that Brittanie makes. When she started utilizing the mail order pharmacy [phone] time frame, and Brittanie continued makinghouse calls [...] she has good access to GI at [facility] to let them know this. October 2022 [...] Due to these values, a hospitalist at [facility] called the patient that evening and recommended [...] < 20, will start Cabenuva May 2023. August 2023 update: Patient continues to struggle with esophageal stricture, she is scheduled for dilatation 28 September 2023 at [facility]. She also continues to have breakthrough seizures and will touchbases with neurology when she is down there. Unfortunately, patient is still not established a primary care provider. Otherwise, her diarrhea has resolved and she continues to really like IM ART Past Medical History: Epilepsy with refractory seizures and required surgery for partial temporal lobectomy, followed neurology at [facility]. Cervical dysplasia Obesity HLD Esophageal stricture, requiring dilation x 2 in past at [facility], and again more recently in March 2020.. Herpes zoster 2011 Anal fissures ? Etoh abuse, this is always been a concern. Poor adherence with ART chronically, largely to 2 esophageal motility disorder and underlying depression. Severe, untreated depression Active smoker Past Surgical History: 2017 Craniotomy for seizures complicated by subdural hematoma Shira botox injections for headaches [place] x 4, last one at [facility] 2020 Epiglottis surgery x 3 Hemorrhoid banding 2014 Esophageal dilatation [facility] 2019, March 2020, Oct 2022, Feb 2023, September 2023 Med list Oct 2022 No Known [...] get a safer, friendly in her environment, but it appears patient has made peace with her neighbors and seems to like her landlord as well. Sexual: Not currently sexually active Exercise: Limited Travel: From [place], went to college in , then went to [place] and now in [place]. [place] on vacation. Animal exposure: no pets PE weight: 170 pounds August 2023. February 2019 VL 3939 February 2019 CD4 [...] load 867 March 2023 HIV VL < 17 August 2023 VL < 20 Assessment and Plan: 1) HIV - ART: Dolutegravir 50mg po BID, 3TC 150 mg twice daily tablet, 25mg TAF daily, in the past, transition to Cabenuva 29 May 2023 -Most recent CD4 count December 2022 50 at 10% -Most recent HIV VL July 2023 <20. - OI prophylaxis: Keep up liquid bactrim. - Compliance: Very poor secondary to esophageal strictures but since transitioning to IM ART May 2023, perfect. - Sexual activity: None - HBV/HCV: Hep C Ab neg 2014, hep B surface ab neg/hep B surface ag neg. - PCM is at [facility] but patient has not been engaging in primary care which obviously is a detriment. Patient was scheduled for a new primary care provider at the [facility] butandre is trying to establish primary care at [facility] and has not followed through yet as of Sep 2023. - Pt due for CD4, will draw later this September when Brittanie makes home visit for next ART. 2) Health maintenance - Colonoscopy: 2020 - Immunizations:Prevnar 13 in 2012, pneumovax 2009 and 2019. Tdap in 2019. Covid vaccine 2020 #3 and #4 all UTD. Patient will need to get flu/COVID boosters fall 2023. - Pap: Last pap May 2020, normal by report - Mammogram:In 2020, normal by report 3) Seizures that have been recalcitrant to medications and required a craniectomy-partial lobectomyat [facility] that was complicated by a postop bleed several years ago. She is now back with her original neurologist from [facility]. Having breakthrough seizures. Neurology at [facility] has increased her doses of anti seizure meds. She does not drive a car. Follow up with neurology in [facility] September 2023 to let them know she continues to have seizures. 4) Depression, always will be her largest problem that has made all other clinical concerns difficult for her to manage. Patient does not follow-up with her primary care provider regarding depression. Brittanie and I continue to discuss with her the importance of eventually finding a new place to live,perhaps a intermediate type setting to improve patient's interactions with other people. 5) PCM, unfortunately, patient still indecisive about who and where she will get her primary care. Ideally, she chooses a primary care provider in [facility] as that is where her GI and neurology subspecialist are but she has not set this up yet. 6) Active smoking, pt not interested in quitting now. 7) Esophageal strictures have been a massive hindrance to good adherence with Sz/HIV meds in past. Treated with esophageal dilatation several times in 2015 at [facility] and after a long hiatus of being lost to follow-up, she was dilated in January 2020 and again in March 2020 where were incredibly helpful but symptoms returned this spring 2022 and were readdressed with another esophageal dilatation in the October 2022 and February 2023 timeframe. From an ID standpoint, this is less of a concern now as her ART has been transitioned to IM. Follow-up with [facility] GI, sees them in Sep for another dilatation. 8) Poor dentition, this has been a problem for years and is always been a challenge to get the patient into see a dentist. 9) Diarrhea in the past, differential very broad and symptoms have been chronic, almost for years. Much improved recently. 10) Anemia and thrombocytopenia has improved with new ART July 2023. WBC 4.59, H 13.5, plat 253 We will not bill for this visit because patient has [employer] insurance, and they will not cover telehealth visits today. Will code as [id number] Antony Myers DO Pager [phone] Currently employed: No Adherence counseling: Yes Linguistic [...] once in the past 12 months): Alcohol documented in this encounter Plan of Treatment Not on file documented as of this encounter Visit Diagnoses Diagnosis AIDS (acquired immune deficiency syndrome) ([facility])- Primary Human immunodeficiency virus [HIV] disease documented in this encounter Care Teams Oven Equipment Repairer Relationship Specialty Start Date End Date Sarah Alejo NP [address] [place] [id number] PCP - General 09/20/18 documented as of this encounter
--- OUTSIDE RECORDS SUMMARY | 2023-12-04 16:37 | XMS_ITS | Encounter Summary ---
Author Organization [facility] Address [address] [place] [address] Care Team Providers Care Well Treatment Offsider Name Role Phone Sarah Alejo Nancy SPANISH TRANSLATOR Primary Care Provider [phone] Encounter Details Date Type Department Care Team (Late st Contact Info) Description 10/18/2021 Specialty Pharmacy [facility] - [facility] [address], [place] [address] Licha Chua, [facility] Social History Tobacco Use Types Packs/Day Years [...] as of this encounter Progress Notes * Dary Ribera - 10/18/2021 0910 EDT Specialty Pharmacy Non-Outreach Documentation Medication: Tivicay, Lamivudine, Vemlidy Clinic: HIV Reason for Encounter: Outreach Notes: New RXs requested Follow up date: 10/18/21 Follow up reason: Outreach * Licha Dunlap - 10/18/2021 0910 EDT Specialty Pharmacy Non-Outreach Documentation Medication: Tivicay, Lamivudine, Vemlidy Clinic: HIV Reason for Encounter: outreach Notes: RTS until 10/21 (all meds) Follow up date: 10/21 Follow up reason: outreach * María Rivers - 10/18/2021 0910 EDT [facility] Specialty Pharmacy Delivery Information Hours: Monday-Monday 8:30am - 5:00pm *Pharmacist available flight control manager 19/09 Delivery Service: [facility] Delivery Window: 10am - 2pm Date of Delivery: 10/27/21 Tracking # : [id number] documented in this encounter Plan of Treatment Not on file documented as of this encounter Visit Diagnoses Not on filedocumented in this encounter Care Teams Well Treatment Offsider Relationship Specialty Start Date End Date Sarah Alejo NP [address] [place] [id number] PCP - General 09/20/18 documented as of this encounter
--- OUTSIDE RECORDS SUMMARY | 2023-12-04 16:37 | XMS_ITS | Encounter Summary ---
Author Organization [facility] Address [address] [place] [address] Care Team Providers Care Foreign Service Teacher Name Role Phone Sarah Alejo TRASH COLLECTOR Primary Care Provider [phone] Encounter Details Date Type Department Care Team (Latest Contact Info) Description 07/18/2023 Specialty Pharmacy [facility] [address] [place], [place] [address] Michael Herrera [facility] Refill Coordination Outreach for HIV Social History Tobacco Use Types [...] on filedocumented in this encounter Care Teams Foreign Service Teacher Relationship Specialty Start Date End Date Sarah Alejo NP [address] [place] [address] PCP - General 09/20/18 documented as of this encounter
--- OUTSIDE RECORDS SUMMARY | 2023-12-04 16:37 | XMS_ITS | Encounter Summary ---
Author Organization [facility] Address [address] [place] [address] Care Team Providers Care Centrifugal Separator Name Role Phone Sarah Alejo CANADIAN BACON TIER Primary Care Provider [phone] Encounter Details Date Type Department Care Team (Late st Contact Info) Description 12/19/2022 Specialty Pharmacy [facility] - [facility] [place] [address] [place], [place] [phone] Michael Herrera, [facility] Social History Tobacco Use Types [...] on filedocumented in this encounter Care Teams Centrifugal Separator Relationship Specialty Start Date End Date Sarah Alejo NP [address] [place] [id number] PCP - General 09/20/18 documented as of this encounter
--- OUTSIDE RECORDS SUMMARY | 2023-12-04 16:37 | XMS_ITS | Encounter Summary ---
Author Organization [facility] Address [address] [place] [address] Care Team Providers Care Diesel Mechanic Name Role Phone Sarah Alejo FRENCH TRANSLATOR Primary Care Provider [phone] Encounter Details Date Type Department Care Team (Late st Contact Info) Description 10/18/2021 Specialty Pharmacy [facility] - [facility] [place] [address] [place], [place] [address] Licha Chua, [facility] Social History Tobacco Use Types Packs/Day Years [...] Progress Notes * Dary Ribera - 10/18/2021 0926 EDT Opened in error documented in this encounter Plan of Treatment Not on file documented as of this encounter Visit Diagnoses Not on filedocumented in this encounter Care Teams Diesel Mechanic Relationship Specialty Start Date End Date Sarah Alejo NP [address] [place] [address] PCP - General 09/20/18 documented as of this encounter
--- OUTSIDE RECORDS SUMMARY | 2023-12-04 16:37 | XMS_ITS | Encounter Summary ---
Author Organization [facility] Address [address] [place] [address] Care Team Providers Care Bear Keeper Name Role Phone Sarah Alejo WASTE SPECIALIST Primary Care Provider [phone] Encounter Details Date Type Department Care Team (Late st Contact Info) Description 11/07/2022 Lab Requisition [facility] Pathology & Laboratory Medicine - [facility] [address] [place] [address] Outr Resulting Lab, Provider Social History Tobacco [...] Name Priority Date/Time Associated Diagnosis Comments HIV 1 GENOTYPIC DRUG RESISTANCE, P Today 11/07/2022 12:20 EDT HIV 1 QUANTITATION WITH REFLEX TO GENOTYPE Routine 11/07/2022 12:20 EDT documented in this encounter Results * HIV 1 GENOTYPIC DRUG RESISTANCE, P (11/07/2022 12:20 EDT) HIV 1 Genotypic Drug Resistance, P INTERP 11/16/2022 8:45 EDT [facility] Comment: Interpretation of results: ?? SUSC= Susceptible PLR= Potential low-level resistance LR= Low-level resistance IR= Intermediate resistance HR= High-level resistance HIV 1 group M subtype B 11/16/2022 8:45 EDT [facility] Nucleos(t)maddison RT mutations None 11/16/2022 8:45 EDT [facility] Reverse Transcriptase failed codons None 11/16/2022 8:45 EDT [facility] Abacavir [facility] 11/16/2022 8:45 EDT [facility] Didanosine [facility] 11/16/2022 8:45 EDT [facility] Emtricitabine [facility] 11/16/2022 8:45 EDT [facility] Lamivudine [facility] 11/16/2022 8:45 EDT [facility] Stavudine [facility] 11/16/2022 8:45 EDT [facility] Tenofovir [facility] 11/16/2022 8:45 EDT [facility] Zidovudine [facility] 11/16/2022 8:45 EDT [facility] Nonnucleoside RT mutations None 11/16/2022 8:45 EDT [facility] Doravirine [facility] 11/16/2022 8:45 EDT [facility] Efavirenz [facility] 11/16/2022 8:45 EDT [facility] Etravirine [facility] 11/16/2022 8:45 EDT [facility] Nevirapine [facility] 11/16/2022 8:45 EDT [facility] Rilpivirine [facility] 11/16/2022 8:45 EDT [facility] Protease Mutations None 11/16/2022 8:45 EDT [facility] Protease failed codons None 11/16/2022 8:45 EDT [facility] Atazanavir + Ritonavir [facility] 11/16/2022 8:45 EDT [facility] Darunavir + Ritonavir [facility] 11/16/2022 8:45 EDT [facility] Fosamprenavir + Ritonavir [facility] 11/16/2022 8:45 EDT [facility] Indinavir + Ritonavir [facility] 11/16/2022 8:45 EDT [facility] Lopinavir + Ritonavir [facility] 11/16/2022 8:45 EDT [facility] Nelfinavir [facility] 11/16/2022 8:45 EDT [facility] Saquinavir + Ritonavir [facility] [facility] 11/16/2022 8:45 EDT [facility] Tipranavir + Ritonavir [facility] [place] 11/16/2022 8:45 EDT [facility] Integrase mutations None 11/16/2022 8:45 EDT [facility] Integrase failed codons None 11/16/2022 8:45 EDT [facility] Bictegravir [facility] [place] [facility] 11/16/2022 8:45 EDT [facility] Cabotegravir [facility] 11/16/2022 8:45 EDT [facility] Dolutegravir [facility] 11/16/2022 8:45 EDT [facility] Elvitegravir [facility] 11/16/2022 8:45 EDT [facility] Raltegravir [facility] 11/16/2022 8:45 EDT [facility] HIV RNA level copies/mL <30 days 1000 to 1,000,000 11/16/2022 8:45 EDT [facility] Comment: ADDITIONAL INFORMATION Testing was performed using the FDA-approved, targeted next-generation sequencing-based [employer] SQ HIV-1 Genotyping Assay ([employer], [facility]), with the minimum variant detection frequency set at 5%. Actual ability to detect minor variants depends on viral load in the plasma specimen. Resistance interpretation was generated with the most current version of the [employer] HIV Drug Resistance Database (https://hivdb.[employer].edu/page/algorithm-updates/). Results obtained by different sequencing assay methods should not be used interchangeably. Test Performed by: [facility] [place] [address] Lan/Wan Engineer: Willy Khan M.D. Ph.D.; CLIA# [id number] Blood VENOUS BLOOD / Unknown 11/07/2022 12:20 EDT 11/10/2022 13:12 EDT Provider Outr Resulting Lab IMMUNOLOGY A ND SEROLOGY ORDERABLES [facility] [address] [place] [address] * (ABNORMAL) HIV 1 QUANTITATION WITH REFLEX TO GENOTYPE (11/07/2022 12:20 EDT) HIV 1 RNA Quant 65,200(H) Undetected copies/mL 11/10/2022 13:12 EDT [facility] HIV RNA Detection, Qual Detected( A) Undetected copies/mL 11/10/2022 13:12 EDT [facility] Blood VENOUS BLOOD / Unknown 11/07/2022 12:20 EDT 11/07/2022 21:16 EDT Narrative [facility] - 11/10/2022 13:12 EDT The quantification range of this assay is 20 IU/mL to 10,000,000 IU/mL. ??Testing was performed using the Diamond HIV test ([employer] with the diamond 6800 System. Provider Outr Resulting Lab MICROBIOLOGY - GENERAL ORDERABLES [facility] [address] [place] [address] documented in this encounter Visit Diagnoses Not on filedocumented in this encounter Care Teams Bear Keeper Relationship Specialty Start Date End Date Sarah Alejo NP [address] [place] [address] PCP - General 09/20/18 documented as of this encounter
--- OUTSIDE RECORDS SUMMARY | 2023-12-04 16:37 | XMS_ITS | Encounter Summary ---
Author Organization [facility] Address [address] [place] [address] Care Team Providers Care Product Development Manager Name Role Phone Sarah Alejo DRAFTER CARTOGRAPHIC Primary Care Provider [phone] Reason for Visit * Reason Comments Follow-up Encounter Details Date Type Department Care Team (Late st Contact Info) Description 11/22/2021 13:00 EDT Telemedicine [facility] Infectious Disease - [address] [phone] Antony Myers, DO [address] [facility], [address] [place] [address] AIDS (acquired immune deficiency syndrome) (HCC-CMS) (HCC) (Primary Dx) Social History Tobacco Use Types [...] Progress Notes * Antony Myers DO - 11/22/2021 1300 EDT Images from the original note were not included. I spent a total of 30 minutes on the date of this encounter meeting with the patient and reviewing documentation/coordinating care as described in the above note. No procedures were performed at the time of the visit. Division of Infectious Disease Follow up/Progress Note 11/22/21 13:42 TELEMEDICINE VIDEO VISIT Today's visit was provided through telemedicine video conferencing: The location of the patient : Pt came to [facility] The location of the provider: Office [place] The following staff and their role did participate in today's encounter visit: Antony Myers, DO The concept of ???Telemedicine?? [...] in patient???s medical or mental health care. HPI:??Ms.??Pacheco??is a 66y.o.??female??with history significant for HIV/AIDS??diagnosed 1990, recalcitrant seizure disorder, severe??untreated??depression??and esophageal dysmotility??who presents with routine HIV??follow up. ??We are trying to see her frequently to continue to work on the challenge of her adherence with her ART in the setting of her depression and esophageal dysmotility. ?? With pharmacy assistance in facilitating mail order, direct home delivery, patient has made a remarkable rebound in the past few months. ??Labs from June 2021 show CD4 count 134 and a viral load??<20. ?? Pt on Dolutegravir 50mg BID,??3TC 150mg tablet BID??and??TAF??25 mg??daily;??a regimen that was slected for the small size of tablets.?Dolutegravir is BID as her seizure medications may lower levels. ?She is also on??bactrim suspension for PJP prophy ? As background: ?? In the 2016 timeframe, patient transferred her care from [facility] ID clinic to the[facility].?A lengthy review of ID notes from [facility] indicate that patient would frequently have viremia, genotypes always showed wild-type virus so it was presumed she just wasn't taking her meds.?There is always aquestion over the years of significant alcohol use as well??but that does not seem to be a problem in the last few years. ?? Her main difficulty for years in adhering to her ART was swallowing difficulties.?She is??finally?plugged back into??GI at [facility] again which has been??incredibly??helpful??as they have dilated her esophagus several times.?At this point in time, patient states she has no problem swallowing an y of her medications. ?? After her brief admission to??[facility]??back in February 2020??for diarrhea and dehydration??she??transferred to a local SNF??but unfortunately,??she signed out AMA??but globally is doing much better now. ?? Returned to neurology at [facility]??in 2020. ??Most recent visit in Nov 2020, the plan was to stay the course. ??Pt was reporting about 1 seizure per month which was improved/stable which resulted??in pt falling on floor/contusion to her forehead.?She does not drive a car. ?She remains without any social supports, lives alone,??does not have transportation so relies on walking for groceries etc.??and most interactions with [facility] recently have been home visits that [place]. Since utilizing the mail order pharmacy and Brittanie going to her house for blood draws, adherence checks etc., patient has made a remarkable rebound.?Esophageal problems seem OK.??Patient made a phenomenal turnaround once her esophagitis was fixed and mail order pharmacy started delivering her ARTwithout any further gaps in care. ?? Unfortunately, it sounds like patient has had a viral respiratory infection syndrome over the past few days. She complains of cough and fevers as well as diffuse myalgias. Some GI complaints as well.In general, patient feels like she is getting better on her own and is reluctant to get additional work-up. ?? Review of Systems: 10-point review of systems is negative except as noted in the HPI. ?? Past Medical History: Epilepsy with refractory seizures and required surgery??for partial??temporal??lobectomy, followed??neurology at [facility]. Cervical dysplasia Obesity HLD Esophageal stricture, requiring dilation??x 2 in past at [facility], and again more recently??in 2020.. Herpes zoster 2011 Anal fissures ? Etoh abuse, this is always been a concern??based on prior notes??but she denies recent use. Poor adherence with ART??chronically, largely to 2 esophageal motility disorder??and underlying depression. Severe, untreated??depression Active smoker ? Past Surgical History:?? 2017??Craniotomy for seizures complicated by subdural hematoma Shira botox injections for headaches [place] x??4, last one at??[facility] 2020?? Epiglottis surgery x 3 Hemorrhoid banding 2014 Esophageal dilatation??[facility]??2019 and again in March 2020 ?? Current Outpatient Medications:??Updated Dec 2020 ?? No Known Allergies ?? Social History Tobacco:??2 packs/week Alcohol:??After years of denying use, patient does admit to having a beer now and then. Last drink was 2-3 weeks ago. Recreational drugs: Marijuana, last use about 2 months ago. Herbal:none Professional:??Not working, suspect patient is on disability Relationships / Living Situation:??Living alone,??essentially??no local support.?Son is estranged.?? After years of Brittanie and I recommending patient change her apartment to get a safer, friendly in her environment, patient finally agreed. Sexual:??Not currently sexually active Exercise:??Limited Travel:??From [place],??went to college in [place],??then went to [place] and now in [place]. ??[place] on vacation. ?? Animal exposure:??no pets ? Social History ? Socioeconomic History ??? Marital status: ? Spouse name: Not on file ??? Number of children: Not on file ??? Years of education: Not on file ??? Highest education level: Not on file Social Needs ??? Financial resource strain: Not on file ??? Food insecurity - worry: Not on file ??? Food insecurity - inability: Not on file ??? Transportation needs - medical: Not on file ??? Transportation needs - non-medical: Not on file Occupational History ??? Not on file Tobacco Use ??? Smoking status: Current Every Day Smoker ? Packs/day: 0.50 ??? Smokeless tobacco: Never Used Substance and Sexual Activity ??? Alcohol use: Yes ? Comment: 2 beers per week ??? Drug use: No ??? Sexual activity: Not Currently ? Partners: Male ? control/protection: Condom Other Topics Concern ??? Not on file Social History Narrative ??? Not on file ? Family history: Pertinent for??Mom just 2017, was very healthy. ??Dads history unknown. ? The Family History was reviewed and is non-contributory for a past history of infection or immunocompromised state. ?? Physical Exam AAO x3 self-reported 196 pounds today.??(self reported weight Mar 2021 is 189).?139lbs was her lowest 2019? . ? February 2019??VL??3939 February 2019??CD4??63 at 6% ?? August 2019 VL 28,000 August 2019 CD4 51 ?? Feb 2020 VL 10,000 Feb 2020??CD4??27 ?? May 2020 viral load 1007 May 2020 CD4 178 ?? Dec 2020 VL 56,400 Dec 2020 CD4 71 ?? Jan 2021 VL 25 ?? Mar 2021 VL < 18 Apr 2021 CD4 145 ?? June 2021 VL <16 Jul 2021 CD4 134 ?? Assessment and Plan: ?? 1) HIV - ART:??Dolutegravir 50mg po BID,??3TC??150 mg twice daily??tablet,??25mg??TAF??daily,??now with perfect adherence through the mail order pharmacy. Greatly appreciate our pharmacist assistance in making this work as it had a remarkable impact on the patient's life. -Most recent CD4 count??June 2021 134 -Most recent HIV??VL??June 2021 < 20 - OI prophylaxis:??Keep up liquid bactrim. CD4 recovery seems to be plateaued. - Compliance:??perfect now that mail order is working. - Sexual activity:??None - HBV/HCV: ??Hep C Ab neg 2014, hep B surface ab neg/hep B surface ag neg. ? - PCM??is??at [facility], not recently however. -??Plan will be to stay with current ART??as it is clearly working. - Patient is due for CD4 count and viral load but as she has what sounds like a viral URI, will hold off on this until December timeframe. ?? 2) Health maintenance - Colonoscopy:??2020 - Immunizations:Prevnar 13 in 2012, pneumovax 2009??and 2019. ??Tdap in??2019.?Covid vaccine 2020??#3 and #4 all UTD.?Flu Dec 2020 - Pap:??Last pap??Joanie??2020, normal by report - Mammogram:In 2020, normal by report ?? 3) Seizures??that have been recalcitrant to medications and required a craniectomy-partial lobectomy at [facility]??that was complicated by a postop bleed??several years ago. ??She is??now back with her original neurologist from [facility].?Having infrequent breakthrough seizures??but they seem improved recently probably related to better adherence with her meds.?Neurology plan for now is to stay the course. ??She does not drive a car.?Follow up with neurology in [facility]??summer 2021. Due to the URI over the past week, patient has had 3 separate seizures. In addition, she ran out of her seizure medication so Brittanie will drive her to the [facility] today to pick that up. ?? 4)??Depression,??always??her largest problem??that has made all other clinical concerns difficult for her to manage.? Seems OK now but her living situation is always a challenge (little to no friends, no family etc.). Were hoping at some point that the patient would be willing to move into a living situation that offers more social stimulation. ?? 5)??PCM,??seen at??[facility].?Sees Sarah Alejo. ?? 6) Active smoking,??pt??not interested in quitting now. ?? 7)??Esophageal strictures have been a massive hindrance to good adherence with Sz/HIV meds in past.?Treated with esophageal dilatation several times in 2015 at [facility]??and??after a long hiatusof being lost to follow-up, she was??dilated in January 2020 and again in March 2020??where were incredibly helpful.?Today,??is stable but we're always vigilant about new problems. ?She feels comfortable with just staying the course for now. ??She also feels her neurologist in [facility] can easily prompt a visit with [facility] GI if needed. ? 8) Poor dentition, this has been a problem for years and is always been a challenge to get the patient into see a dentist. 9) fevers and cough over the past few days. Mentating well. They seem to be globally improving but patient also seems clinically dehydrated. We asked her to please go to the ER but the patient refused and she is reluctant to go to her PCM as well. Patient states that she is globally feeling better compared to several days ago so maybe this is just influenza/COVID running its course. Brittanie will touch bases with her via phone call over the next few days. Patient appreciated our concern but reiterated that she did not want to go to the ER. ?? Antony Myers DO Pager [phone] ?? Currently employed:??No ?? Adherence counseling:??Yes ?? Linguistic services:?No ?? Patient with HIV (-) partner:??Not applicable ?? HIV (-) partner tested within the last 12 months:??Not applicable ?? Partner notification discussed:??Not applicable ?? Social History Social History ? Tobacco Use Smoking Status Current Every Day Smoker ??? Packs/day: 0.50 Smokeless Tobacco Never Used ? Smoking cessation discussed:?Yes ?? Gonorrhea and chlamydia testing done in the past year:??No, not sexually active in the past 12 mos ?? Oral exam done at this visit:??No ?? Seen by dentist in the past year.?No ?? Referred to dentist at this visit:?No ?? Housing:??Stable ?? HIV risk reduction counseling:??Yes ?? Screened for mental health:??Yes ?? Screened for substance abuse:??Yes ?? Current substance use (used more than once in the past 12 months):??none ?? documented in this encounter Plan of Treatment Not on file documented as of this encounter Visit Diagnoses Diagnosis AIDS (acquired immune deficiency syndrome) ([facility])- Primary Human immunodeficiency virus [HIV] disease documented in this encounter Care Teams Product Development Manager Relationship Specialty Start Date End Date Sarah Alejo, [address] [place] [address] PCP - General 09/20/18 documented as of this encounter
--- OUTSIDE RECORDS SUMMARY | 2023-12-04 16:37 | XMS_ITS | Encounter Summary ---
Author Organization [facility] Address [address] [place] [address] Care Team Providers Care Cigar Patcher Name Role Phone Sarah Alejo LINSEED CAKE TRIMMER Primary Care Provider [phone] Reason for Visit * Reason Onset Date Comments Follow-up 11/14/2022 Encounter Details Date Type Department Care Team (Late Contact Info) Description 11/14/2022 Telephone [facility] Infectious Disease - [address] [id number] Antony Myers, 111 [facility], [address] [place] [address] Follow-up Social History Tobacco Use [...] Miscellaneous Notes * Telephone Encounter - Antony Myers DO - 11/14/2022 1601 EDT I have been discussing patient with Brittanie (HIV LINSEED CAKE TRIMMER from [facility]) over the past few weeks. At her lastmeeting in June, patient noticed difficulty in swallowing again and told us that she would be reaching out to GI at [facility] to get her esophageal strictures dilated again but it appears she did not do that. Brittanie made a home visit several weeks ago and again last week. Patient unable to consistently take all her p.o. medications despite some being liquid and very small pills. Patient now also has significant diarrhea and more recent labs show potassium 2.9. Most recent HIV labs drawn October 2022, show HIV viral load 65,000 and CD4 count down to 86. Back in March, her HIV viral load was 88 and CD4 count of 228 so these changes are somewhat acute and again based on her inability to consistently take her ART. Her current ART is dolutegravir 50mg BID,??3TC 150mg tablet BID??and??TAF??25 mg??daily;?? Patient not consistently taking her seizure medications either. She has no transportation on her own so requires assistance from RTC and it sounds like she has been quite reluctant to engage in her primary care provider to help address her depression. HIV genotype is pending but with a viral load of 65,000, suspected will show wild-type. Patient very consistently does well from an HIV standpoint when she is able to take her meds. Patient also very consistently does not advocate for herself. Brittanie has been communicating with [facility] healthcare providers to see if they can connect patient with [facility] GI efficiently and get her scheduled for an esophageal dilatation MARISELA. This will take considerable coordination with RTC as well considering she will need a ride. Brittanie will try to do some baseline ID diarrhea work-up studies out of [facility] lab. We have also ordered some liquid potassium 20 mEq p.o. daily and then repeat her chemistries next week. We will see if patient for her HIV evaluation Monday of next week. Brittanie is currently, a s we have both many many times in the past, trying to talk patient into moving in to some type of assisted living/group living facility locally where she would not be so socially isolated and people would make sure she is keeping up with her medications etc. [facility] Myers staff documented in this encounter Plan of Treatment Not on file documented as of this encounter Visit Diagnoses Not on filedocumented in this encounter Care Teams Cigar Patcher Relationship Specialty Start Date End Date Sarah Alejo NP [address] [place] [address] PCP - General 09/20/18 documented as of this encounter
--- OUTSIDE RECORDS SUMMARY | 2023-12-04 16:37 | XMS_ITS | Encounter Summary ---
Author Organization [facility] Address [address] [place] [address] Care Team Providers Care Quill Layer Name Role Phone Sarah Alejo PORTABLE ROUTER OPERATOR Primary Care Provider [phone] Encounter Details Date Type Department Care Team (Latest Contact Info) Description 03/22/2023 Specialty Pharmacy [facility] [address] [place], [place] [phone] Michael Herrera RPH Refill Coordination Outreach for HIV Social History [...] tablet Take 1 Tablet by mouth daily. 30 Tablet 03/28/2023 07/03/2023 lamiVUDine (EPIVIR) 150 mg tablet Take 1 Tablet by mouth 2 times daily. 60 Tablet 03/28/2023 07/03/2023 dolutegravir (TIVICAY) 50 mg tablet Take 1 Tablet by mouth 2 times daily. 60 Tablet 11 03/28/2023 07/03/2023 documented in this encounter Progress Notes * Michael Herrera RPH - 03/22/2023 5787 EST Refill request received for DOLUTEGRAVIR, LAMIVUDINE, TENOFOVIR ALAFENAMIDE from PHARMACY. Last office visit on 02/13/23 (telemedicine) with Dr. Antony Myers. Next office visit not yet scheduled. Labs: Renal function WNL per outside labs from 10/24/22 Refill request processed and sent electronically to patient's preferred pharmacy. Michael Herrera, PharmD Ambulatory Pharmacist [facility] Infectious Disease 03/28/2023 Med Orders Placed This Visit and Additions to the Medication List Medications dolutegravir (TIVICAY) 50 mg tablet Sig: Take 1 Tablet by mouth 2 times daily. Dispense: 60 Tablet Refill: 11 Specialty Pharmacy lamiVUDine (EPIVIR) 150 mg tablet Sig: Take 1 Tablet by mouth 2 times daily. Dispense: 60 Tablet Refill: 11 tenofovir alafenamide (VEMLIDY) 25 mg tablet Sig: Take 1 Tablet by mouth daily. Dispense: 30 Tablet Refill: 11 Specialty Pharmacy documented in this encounter Plan of Treatment Not on file documented as of this encounter Visit Diagnoses Not on filedocumented in this encounter Discontinued Medications Medication Sig Discontinue Reason Start Date End Da te dolutegravir (TIVICAY) 50 mg tablet Take 1 Tablet by mouth 2 times daily. Reorder 10/13/2022 03/28/2023 lamiVUDine (EPIVIR) 150 mg tablet Take 1 Tablet by mouth 2 times daily. Reorder 10/13/2022 03/28/2023 tenofovir alafenamide (VEMLIDY) 25 mg tablet Take 1 Tablet by mouth daily. Reorder 10/13/2022 03/28/2023 documented as of this encounter Care Teams Quill Layer Relationship Specialty Start Date End Date Sarah Alejo NP [address] [place] [id number] PCP - General 09/20/18 documented as of this encounter
--- OUTSIDE RECORDS SUMMARY | 2023-12-04 16:37 | XMS_ITS | Encounter Summary ---
Author Organization [facility] Address [address] [place] [address] Care Team Providers Care Fender Mechanic Apprentice Name Role Phone Sarah Alejo GEOLOGICAL DRAFTER Primary Care Provider [phone] Encounter Details Date Type Department Care Team (Late st Contact Info) Description 04/12/2023 Lab Requisition [facility] Pathology & Laboratory Medicine - [facility] [address] [place] [address] Outr Resulting Lab, Provider Social History Tobacco [...] Priority Date/Time Associated Diagnosis Comments HIV 1 RNA QUANTITATION Routine 04/12/2023 10:30 EST documented in this encounter Results * (ABNORMAL) HIV 1 RNA QUANTITATION (04/12/2023 10:30 EST) HIV RNA Detection, Qual Detected( A) Undetected copies/mL 04/13/2023 12:[address] [facility] HIV 1 RNA Quant <20(H) Undetected copies/mL 04/13/2023 12:[address] [facility] Comment:HIV-1 RNA level is < 20 copies/mL. This assay cannot accurately quantify HIV-1RNA below this level. Blood VENOUS BLOOD / Unknown 04/12/2023 10:30 EST 04/12/2023 17:[address] [facility] - 04/13/2023 12:11 EST The quantification range of this assay is 20 IU/mL to 10,000,000 IU/mL. ??Testing was performed using the Diamond HIV test ([employer] with the diamond Amitree0 System. Provider Outr Resulting Lab CHEMISTRY & BLOOD GAS ORDERABLES [facility] [address] [place] [address] documented in this encounter Visit Diagnoses Not on filedocumented in this encounter Care Teams Fender Mechanic Apprentice Relationship Specialty Start Date End Date Sarah Alejo NP [address] [place] [address] PCP - General 09/20/18 documented as of this encounter
--- OUTSIDE RECORDS SUMMARY | 2023-12-04 16:37 | XMS_ITS | Encounter Summary ---
Author Organization [facility] Address [address] [place] [address] Care Team Providers Care [place] Technician Name Role Phone Sarah Alejo MARKET ANALYSIS DIRECTOR Primary Care Provider [phone] Reason for Visit * Reason Onset Date Comments Follow-up 01/27/2023 Encounter Details Date Type Department Care Team (Late st Contact Info) Description 01/27/2023 Telephone [facility] Infectious Disease - [address] [phone] Antony Myers, [address] [facility], [address] [place] [address] Follow-up Social History Tobacco Use [...] Telephone Encounter - Antony Myers DO - 01/27/2023 1152 EST Case discussed with Brittanie our HIV nurse practitioner multiple times midweek, and at length again today. Brittanie did a home visit on 25 January and found patient to appear wasting. Patient was reporting concerns for what sounded like melenic diarrhea as well as trace hematemesis. She continues to have significant difficulty eating, drinking water, taking medications etc. Her last esophageal dilatation back in October appears to have not worked well. Brittanie darcy labs on 25 January showing creatinine 1.4, potassium 3.3, AST 47, ALT 40, sodium 135. CBC showed WBC 1.64, hematocrit 20.2 and platelets 61. All 3 blood lines are down compared to previous CBC drawn earlier 2022. Case discussed with patient via phone call this morning, she reports that on the night of 25 January, based on these lab results, a hospitalist from [facility] already called her and recommended her come to the ER for at least repeat CBC and possible admission etc. Patient refused. Hospitalist even sent police to her door for a wellness check that evening and patientsent them away. This morning, patient sounded her usual self. She was mentating well. Patient reported the pharmacydelivered Ensure and patient was hoping that by trying to drink Ensure, she would be able to correct these lab findings. I also asked patient if she would consider going to the ER and she refused. I asked patient what she would do if she genuinely felt ill and needed help and patient states she hasno problem calling 911. As background, patient has essentially zero friends or family, she no longer sees her primary care provider locally so has essentially no safety net around her which we have discussed at length and have tried to get her into different housing but she always refuses. As patient is mentating well, she knows to call 911 if she gets acutely ill and she is already had 1 wellness check from police thisweek, I am not sure there is too much we can do in the short-term. Brittanie will check on her again next week to see if she be more amenable to at least an ER visit. Based on patient's prior interactions with the healthcare system and her approach to her own care, we really do need to discuss goals of care with her and at least a CODE STATUS in her next interaction. [facility] Myers staff documented in this encounter Plan of Treatment Not on file documented as of this encounter Visit Diagnoses Not on filedocumented in this encounter Care Teams [place] Technician Relationship Specialty Start Date End Date Sarah Alejo NP [address] [place] [address] PCP - General 09/20/18 documented as of this encounter
--- OUTSIDE RECORDS SUMMARY | 2023-12-04 16:37 | XMS_ITS | Encounter Summary ---
Author Organization [facility] Address [address] [place] [address] Care Team Providers Care Buckle Wire Inserter Name Role Phone Sarah Alejo NURSING CLINICAL DIRECTOR Primary Care Provider [phone] Encounter Details Date Type Department Care Team (Late st Contact Info) Description 09/28/2021 Specialty Pharmacy [facility] - Main [place] [address] [place], [place] [phone] Licha Chua, [facility] Social History Tobacco Use Types Packs/Day Years [...] on filedocumented in this encounter Care Teams Buckle Wire Inserter Relationship Specialty Start Date End Date Sarah Alejo NP [address] [place] [address] PCP - General 09/20/18 documented as of this encounter
--- OUTSIDE RECORDS SUMMARY | 2023-12-04 16:37 | XMS_ITS | Encounter Summary ---
Author Organization [facility] Address [address] [place] [address] Care Team Providers Care Colorist Dyer Name Role Phone Sarah Alejo MEDICAL ASSISTANT SECRETARY Primary Care Provider [phone] Encounter Details Date Type Department Care Team (Late st Contact Info) Description 04/11/2022 Specialty Pharmacy [facility] Ambulatory Pharmacy - [facility] [address] [place], [place] [id number] Licha Chua, [facility] Social History Tobacco Use Types [...] as of this encounter Progress Notes * Quyen Hinkle - 04/11/2022 1249 EST I have checked all of the boxes everywhere except in billing/shipping because once I told PT about copays she expressed concern. She has medicaid, which I believe automatically qualifies her for HAP so I referred her to HAP. She has ~9-10 days of med on hand giving us time to get HAP coverage for her in the meantime. She will call HAP today & I will email them, we put off scheduling her delivery until 04/13 to check in and see if she has HAP by then (at least temporary coverage until she gets her docs in). * María Rivers - 04/11/2022 1249 EST [facility] Specialty Pharmacy Delivery Information Hours: Monday-Monday 8:30am - 5:00pm *Pharmacist available production engineer 19/09 Delivery Service: [facility] Delivery Window: 10am - 2pm Date of Delivery: 04/19/22 Tracking # : [id number] documented in this encounter Plan of Treatment Not on file documented as of this encounter Visit Diagnoses Not on filedocumented in this encounter Care Teams Colorist Dyer Relationship Specialty Start Date End Date Sarah Alejo NP [address] [place] [address] PCP - General 09/20/18 documented as of this encounter
--- OUTSIDE RECORDS SUMMARY | 2023-12-04 16:37 | XMS_ITS | Encounter Summary ---
Author Organization [facility] Address [address] [place] [address] Care Team Providers Care Pairing Machine Operator Name Role Phone Sarah Alejo ASPHALT TAR AND GRAVEL ROOFER Primary Care Provider [phone] Reason for Visit * Reason Comments Other Encounter Details Date Type Department Care Team (Late st Contact Info) Description 09/14/2021 [facility] Infectious Disease - [address] [id number] Antony Myers, DO [address] [facility], [address] [place] [phone] Other Social History Tobacco Use Types Packs/Day [...] on filedocumented in this encounter Care Teams Pairing Machine Operator Relationship Specialty Start Date End Date Sarah Alejo ASPHALT TAR AND GRAVEL ROOFER [address] [place] [address] PCP - General 09/20/18 documented as of this encounter
--- OUTSIDE RECORDS SUMMARY | 2023-12-04 16:37 | XMS_ITS | Encounter Summary ---
Author Organization [facility] Address [address] [place] [address] Care Team Providers Care Infant Nanny Name Role Phone Sarah Alejo KELP CUTTER Primary Care Provider [phone] Encounter Details Date Type Department Care Team (Latest Contact Info) Description 05/17/2023 Specialty Pharmacy [facility] [address] [place], [place] [phone] Michael Herrera [facility] Refill Coordination Outreach for HIV Social History [...] on filedocumented in this encounter Care Teams Infant Nanny Relationship Specialty Start Date End Date Sarah Alejo NP [address] [place] [address] PCP - General 09/20/18 documented as of this encounter
--- OUTSIDE RECORDS SUMMARY | 2023-12-04 16:37 | XMS_ITS | Encounter Summary ---
Author Organization [facility] Address [address] [place] [address] Care Team Providers Care Phone Operator Name Role Phone Sarah Alejo REFORMATORY ATTENDANT Primary Care Provider [phone] Encounter Details Date Type Department Care Team (Late st Contact Info) Description 01/13/2022 Specialty Pharmacy [facility] Ambulatory Pharmacy - Main [place] [address] [place], [place] [phone] Licha Chua, [facility] Social History [...] as of this encounter Progress Notes * Brigette Ross - 01/13/2022 1433 EST [facility] Specialty Pharmacy Delivery Information Hours: Monday-Monday 8:30am - 5:00pm *Pharmacist available slag production worker 19/09 Delivery Service: [facility] Delivery Window: 10am - 2pm Date of Delivery: 01/18/22 Tracking # : [id number] documented in this encounter Plan of Treatment Not on file documented as of this encounter Visit Diagnoses Not on filedocumented in this encounter Care Teams Phone Operator Relationship Specialty Start Date End Date Sarah Alejo, [address] [place] [address] PCP - General 09/20/18 documented as of this encounter
--- OUTSIDE RECORDS SUMMARY | 2023-12-04 16:37 | XMS_ITS | Encounter Summary ---
Author Organization [facility] Address [address] [place] [address] Care Team Providers Care Office Services Assistant Name Role Phone Sarah Alejo SMALL PACKAGE AND BUNDLE SORTER CLERK Primary Care Provider [phone] Encounter Details Date Type Department Care Team (Late st Contact Info) Description 08/23/2021 Orders Only [facility] Infectious Disease - [address] [address] Antony Myers, DO [address] [facility], [address] [place] [phone] AIDS (acquired immune deficiency syndrome) (HCC-CMS) (HCC) (Primary Dx); Symptomatic HIV infection (HCC-CMS) (HCC) Social History Tobacco Use Types Packs/Day Years [...] Dispensed Refills Start Date End Da te lamiVUDine (EPIVIR) 150 mg tabletIndications:AIDS (acquired immune deficiency syndrome) (HCC-CMS),Symptomatic HIV infection (HCC-CMS) Take 1 Tablet by mouth every 12 hours. 60 Tablet 1 08/23/2021 10/18/2021 documented in this encounter Progress Notes * Licha Chua RPH - 08/23/2021 1048 EDT Sent 60 day supply of lamivudine 150mg tablet 1BID to [facility] Pharmacy per Dr. Myers. [facility] but Dr. Myers is on service at [facility] today and the electronic request by the specialty pharmacy was not successful. In September, will ask Dr. Myers to renew lamivudine, TAF, and dolutegravir via electronic scripts with [facility] address if possible. Licha Brown, PharmD Ambulatory Pharmacist [facility] Infectious Disease 08/23/2021 documented in this encounter Plan of Treatment Not on file documented as of this encounter Visit Diagnoses Diagnosis AIDS (acquired immune deficiency syndrome) ([facility])- Primary Human immunodeficiency virus [HIV] disease Symptomatic HIV infection ([facility]) Human immunodeficiency virus [HIV] disease documented in this encounter Discontinued Medications Medication Sig Discontinue Reason Start Date End Da te lamiVUDine (EPIVIR) 150 mg tablet Take 1 Tablet by mouth every 12 hours. Reorder 03/03/2021 08/23/2021 documented as of this encounter Care Teams Office Services Assistant Relationship Specialty Start Date End Date Sarah Alejo NP [address] [place] [address] PCP - General 09/20/18 documented as of this encounter
--- OUTSIDE RECORDS SUMMARY | 2023-12-04 16:37 | XMS_ITS | Encounter Summary ---
Author Organization [facility] Address [address] [place] [address] Care Team Providers Care Side Show Entertainer Name Role Phone Sarah Alejo SKEET OPERATOR Primary Care Provider [phone] Reason for Visit * Reason Onset Date Comments Medications Refill 10/12/2022 Lamivudine, T ivicay, Vemlidy Encounter Details Date Type Department Care Team (Late st Contact Info) Description 10/12/2022 Telephone [facility] Infectious Disease - [facility] [address] [place], [place] [phone] Antony Myers, DO [address] [facility], [address] [place] [address] Medications Refill (Lamivudine, Tivicay, Vemlidy) Social History Tobacco Use Types Packs/Day Years [...] 1 Tablet by mouth daily. 90 Tablet 1 10/13/2022 03/28/2023 lamiVUDine (EPIVIR) 150 mg tablet Take 1 Tablet by mouth 2 times daily. 180 Tablet 1 10/13/2022 03/28/2023 dolutegravir (TIVICAY) 50 mg tablet Take 1 Tablet by mouth 2 times daily. 180 Tablet 1 10/13/2022 03/28/2023 documented in this encounter Miscellaneous Notes * Telephone Encounter - DanniemichelleNiall - 10/12/2022 1142 EDT Medication Refill Request Medication: Lamivudine, Vemlidy, Tivicay Patient needs medication by: now Scheduled outreach date: 10/12/22 Pharmacy: [facility] [address] [facility] Next appt: Visit date not found documented in this encounter Plan of Treatment Not on file documented as of this encounter Visit Diagnoses Not on filedocumented in this encounter Discontinued Medications Medication Sig Discontinue Reason Start Date End Da te lamiVUDine (EPIVIR) 150 mg tablet Take 1 Tablet by mouth 2 times daily. Reorder 10/18/2021 10/13/2022 dolutegravir (TIVICAY) 50 mg tablet Take 1 Tablet by mouth 2 times daily. Reorder 10/18/2021 10/13/2022 tenofovir alafenamide (VEMLIDY) 25 mg tablet Take 1 Tablet by mouth daily. Reorder 10/18/2021 10/13/2022 documented as of this encounter Care Teams Side Show Entertainer Relationship Specialty Start Date End Date Sarah Alejo NP [address] [place] [address] PCP - General 09/20/18 documented as of this encounter
--- OUTSIDE RECORDS SUMMARY | 2023-12-04 16:37 | XMS_ITS | Encounter Summary ---
Author Organization [facility] Address [address] [place] [address] Care Team Providers Care Chief Concierge Name Role Phone Sarah Alejo CATHOLIC PRIEST Primary Care Provider [phone] Reason for Visit * Reason Comments Follow-up Encounter Details Date Type Department Care Team (Late st Contact Info) Description 11/21/2022 11:30 EDT Telemedicine [facility] Infectious Disease - [address] [phone] Antony Myers, [address] [facility], [address] [place] [address] AIDS (acquired immune deficiency syndrome) ([facility]) (Primary Dx) Social History Tobacco Use [...] Progress Notes * Antony Myers DO - 11/21/2022 1130 EDT Images from the original note were not included. I spent a total of 50 minutes on the date of this encounter meeting with the patient and reviewing documentation/coordinating care as described in the above note. No procedures were performed at the time of the visit. Division of Infectious Disease Follow up/Progress Note 11/21/22 TELEMEDICINE VIDEO VISIT Today's visit was provided through telemedicine video conferencing: The location of the patient : Home The location of the provider: Office [facility] [...] in patient???s medical or mental health care. ?? HPI:??Ms.??Pacheco??is a 67y.o.??female??with history significant for HIV/AIDS??diagnosed 1990, recalcitrant seizure disorder, severe??untreated??depression??and esophageal dysmotility/strictures??who presents with routine HIV??follow up. ??We are trying to see her frequently to continue to work onthe challenge of her adherence with her ART in the setting of her depression and esophageal dysmotility. ?? With pharmacy assistance in facilitating mail order, direct home delivery, patient made a remarkable rebound in [phone]. However, due to return of esophageal strictures and poor adherence to all her meds, most recent Labs from??Sep/Oct 2022 show HIV VL 65,200 and CD4 86. ?? Pt on Dolutegravir 50mg BID,??3TC 150mg tablet BID??and??TAF??25 mg??daily;??a regimen that was slected for the small size of tablets.?Dolutegravir is BID as her seizure medications may lower levels. ?She is also on??bactrim suspension for PJP prophy ? As background: ?? In the 2016 timeframe, patient transferred her care from [facility] ID clinic to the[facility]?A lengthy review of ID notes from [facility] indicate that patient would frequently have viremia, [...] was swallowing difficulties.?She is??finally?plugged back into??GI at [facility] again which has been??incredibly??helpful??as they have dilated her esophagus several times.?At this point in time, patient states she has no problem swallowing an y of her medications. ?? After her brief admission to??[facility]??back in February 2020??for diarrhea and dehydration??she??transferred to a local SNF??but unfortunately,??she signed out AMA??but globally is doing much better now. ?? Returned to neurology at [facility]??in 2020. ??Most recent visit in Nov 2020, the plan was to stay the course. ??Pt was reporting about 1 seizure per month which was improved/stable which resulted??in pt falling on floor/contusion to her forehead.?She does not drive a car. ?She remains without any social supports, lives alone,??does not have transportation so relies on walking for groceries etc.??and most interactions with [facility] recently have been home visits that [place]. ??When she started utilizing the mail order pharmacy [phone] time frame, and Brittanie continued making house calls to draw blood, perform adherence checks etc., patient made a remarkable rebound. However, patient's overall health is taken a downturn in the past 6 months of 2022. ? July 2022 update: Unfortunately, patient seems to [...] she has good access to GI at [facility] to let them know this. ?? October 2022 update: Unfortunately, patient never followed [...] setting of AIDS is obviously quite extensive. ? Past Medical History: Epilepsy with refractory seizures and required surgery??for partial??temporal??lobectomy, followed??neurology at [facility]. Cervical dysplasia Obesity HLD Esophageal stricture, requiring dilation??x 2 in past at [facility], and again more recently??in March2020.. Herpes zoster 2011 Anal fissures ? Etoh abuse, this is always been a concern. Poor adherence with ART??chronically, largely to 2 esophageal motility disorder??and underlying depression. Severe, untreated??depression Active smoker ? Past Surgical History:?? 2017??Craniotomy for seizures complicated by subdural hematoma Shira botox injections for headaches [place] x??4, last one at??[facility] 2020?? Epiglottis surgery x 3 Hemorrhoid banding 2014 Esophageal dilatation??[facility]??2019 and again in March 2020 ?? Med list Oct 2022 ?? No Known Allergies ?? Social History Tobacco:??2??packs/week. Alcohol:??After years of denying use, it sounds like patient is drinking beer/wine again. Recreational drugs:??Marijuana, last use about 2 months ago. Herbal:none Professional:??Not working, suspect patient is on disability Relationships / Living Situation:??Living alone,??essentially??no local support.?Son is estranged.?After years of Brittanie and I recommending patient change her apartment to get a safer, friendly in her environment, patient finally agreed in spring 2022 but she has failed to make the steps needed to change her environment. Sexual:??Not currently sexually active Exercise:??Limited Travel:??From [place],??went to college in [place],??then went to [place] and now in [place]. ??[place] on vacation. ?? Animal exposure:??no pets ?? Physical Exam AAO x3??, tired appearing. Patient seen in her living room via telehealth video. . ? February 2019??VL??3939 February 2019??CD4??63 at [...] VL <16 Jul 2021 CD4 134 ?? December 2021 viral load < 16 January 2022 CD4 count 120 ?? March 2022 CD4 count 228 March 2022 viral load 88 ?? June 2022 viral load 1280 Oct 2022 CD4 86 Oct 2022 VL 65,200, genotype: no resistance genes ?? Assessment and Plan: ?? 1) HIV - ART:??Dolutegravir 50mg po BID,??3TC??150 mg twice daily??tablet,??25mg??TAF??daily,??in the past, had perfect adherence??through the mail order pharmacy.?Greatly appreciate our pharmacist assistance in making this work as it had a remarkable impact on the patient's life but with esophageal strictures, her adherence is dropped to 0 at this point. -Most recent CD4 count??Sep 2022 86 -Most recent HIV??VL Oct 2022 65,200 - OI prophylaxis:??Keep up liquid bactrim.?? Patient with poor adherence with liquid Bactrim until restarted October 2022. - Compliance:??Very poor secondary to esophageal strictures in the past 6 months - Sexual activity:??None - HBV/HCV: ??Hep C Ab neg 2014, hep B surface ab neg/hep B surface ag neg. ? - PCM??is??at [facility] but patient has not been engaging in primary care which obviously is a detriment. It sounds like the patient has not been seen in several years by her primary. Brittanie will work with her primary care office to see if patient might be more responsive/engaged if we got her a different primary care provider. -??Disappointing to see patient's current labs. Surely viral load 65,000 and CD4 count 86 are related to her inability to consistently take her ART due to her esophageal stricture. Patient has shown that when she actually takes her meds, she does very well so the plan will be to get her esophageal strictures taking care of tomorrow, restart all her ART, repeat labs in a month, then 3 months and if we are able to get the patient undetectable, consider ART injectables. ?? 2) Health maintenance - Colonoscopy:??2020 - Immunizations:Prevnar 13 in 2012, pneumovax 2009??and 2019. ??Tdap in??2019.?Covid vaccine 2020??#3 and #4 all UTD.?Flu Dec 2020. Patient needs influenza, RSV and COVID-vaccine when available this fall 2022. - Pap:??Last pap??May??2020, normal by report - Mammogram:In 2020, normal by report ?? 3) Seizures??that have been recalcitrant to medications and required a craniectomy-partial lobectomy at [facility]??that was complicated by a postop bleed??several years ago. ??She is??now back with her original neurologist from [facility].?Having infrequent breakthrough seizures??but they seem improved recently probably related to better adherence with her meds.?Neurology plan for now is to stay the course. ??She does not drive a car.?Follow up with neurology in [facility]??as scheduled ?? 4)??Depression,??always??will be her largest problem??that has made all other clinical concerns difficult for her to manage.? Patient does not follow-up with her primary care provider regarding depression. Brittanie and I have spoken with her at length for many years now about the importance of looking into a different living circumstance where she is around people who can help her with ADLs etc. and it looks like patient is finally willing to accept this help. Currently, [facility] is working on the logistics of helping her move. ?? 5)??PCM,??see above with regards to trying to find a new primary. ?? 6) Active smoking,??pt??not interested in quitting now. ?? 7)??Esophageal strictures have been a massive hindrance to good adherence with Sz/HIV meds in past.?Treated with esophageal dilatation several times in 2015 at [facility]??and??after a long hiatusof being lost to follow-up, she was??dilated in January 2020 and again in March 2020??where were incredibly helpful but symptoms returned this spring and despite assuring us that she would check with GI to get her strictures dilated, she never followed through. Currently, her strictures are making it so that she cannot take her medications or obtain enough nutrition. She has follow up set with GI at [facility] tomorrow. We encouraged pt to please get a follow up appt when she is there as well. Ifpt is left to her own devices to set up a follow up visit PRN in the future, she will not follow through. ? 8)??Poor dentition, this has been a problem for years??and is always been a challenge to get the patient into see a dentist. ?? 9) Diarrhea, differential very broad and symptoms have been chronic, almost for years. No fevers orabdominal pain. In the setting of AIDS, the differential diagnosis is really quite extensive but considering her living circumstances, I think the best we can do is to get her esophageal strictures taking care of, do what we can to replete her potassium, restart her HIV medications and seizure medications and see if her symptoms improved. ?? 10) Hypokalemia. Probably related to diarrhea. Very difficult to replace acutely and monitor EKG etc as pt is so reluctant to engage with PCM.. Brittanie started liquid KCl 20 mill equivalents twice daily last week with a plan to repeat a potassium level next week. Again, patient's reluctance to engagewith care makes this process difficult but we are doing what we can to try to approach this safely and carefully considering the patient's reluctance to engage in primary care. We will not bill for this visit because patient has [employer] insurance, and they will not cover zoom visits Antony Myers DO Pager [phone] ?? Currently employed:??No ?? Adherence counseling:??Yes ?? [...] more than once in the past 12 months):??Alcohol ?? documented in this encounter Plan of Treatment Not on file documented as of this encounter Visit Diagnoses Diagnosis AIDS (acquired immune deficiency syndrome) ([facility])- Primary Human immunodeficiency virus [HIV] disease documented in this encounter Care Teams Chief Concierge Relationship Specialty Start Date End Date Sarah Alejo NP [address] [place] [id number] PCP - General 09/20/18 documented as of this encounter
--- OUTSIDE RECORDS SUMMARY | 2023-12-04 16:37 | XMS_ITS | Encounter Summary ---
Author Organization [facility] Address [address] [place] [address] Care Team Providers Care Cargo Broker Name Role Phone Sarah Alejo DOOR PATCHER Primary Care Provider [phone] Reason for Visit * Reason Comments Follow-up Encounter Details Date Type Department Care Team (Late st Contact Info) Description 02/13/2023 11:30 EST Telemedicine [facility] Infectious Disease - [address] [phone] Antony Myers, DO [address] [facility], [address] [place] [address] AIDS (acquired immune deficiency syndrome) ([facility]) (Primary Dx) Social History Tobacco Use Types [...] Progress Notes * Antony Myers DO - 02/13/2023 1130 EST Images from the original note were not included. I spent a total of 55 minutes on the date of this encounter meeting with the patient and reviewing documentation/coordinating care as described in the above note. No procedures were performed at the time of the visit. Pt has [employer] insurance so we cannot bill for this [...] delivery, patient made a remarkable rebound in [phone]. However, due to return of esophageal strictures and poor adherence to all her meds, most recent Labs from Oct 2022 show HIV VL 65,200 and CD4 86 and repeat studies 01/25/2023 showed viral load 867, CD4 count 50 at 4%. Pt on Dolutegravir 50mg BID, 3TC 150mg tablet BID and TAF 25 mg daily; a regimen that was slected for the small size of tablets. Dolutegravir is BID as her seizure medications may lower levels. She is also on bactrim suspension for PJP prophy As background: In the 2016 timeframe, patient transferred her care from [facility] ID clinic to the [facility] in [facility]. A lengthy review of ID notes from [facility] [...] is finally plugged back into GI at [facility] again which has been incredibly helpful as they have dilated her esophagus several times. At this point in time, patient states she has no problem swallowing any of her medic ations. After her brief admission to [facility] back in February 2020 for diarrhea and dehydration she transferredto a local SNF but unfortunately, she signed out AMA but globally is doing much better now. Returned to neurology at [facility] in 2020. Most recent visit in Nov [...] for groceries etc. and most interactions with [facility] recently have been home visits that Brittanie makes. When she started utilizing the mail order pharmacy [phone] time frame, and Brittanie continued makinghouse calls [...] she has good access to GI at [facility] to let them know this. October 2022 [...] Due to these values, a hospitalist at [facility] called the patient that evening and recommended she come to the ER for admission etc. Patient refused. Hospitalist then called police for a wellness check and per the patient report, she sent the police away. More recently, patient sounded much more interactive and globally felt better when talking to her on the phone today. She continues to have chronic diarrhea which has been present for years. Her p.o.intake seems to be improved although it is always very frustrating to try to quantify exactly what percentage of her HIV medications she actually keeps down. Past Medical History: Epilepsy with refractory seizures and required surgery for partial temporal lobectomy, followed neurology at [facility]. Cervical dysplasia Obesity HLD Esophageal stricture, requiring dilation x 2 in past at [facility], and again more recently in March 2020.. Herpes zoster 2011 Anal fissures ? Etoh abuse, this is always been a concern. Poor adherence with ART chronically, largely to 2 esophageal motility disorder and underlying depression. Severe, untreated depression Active smoker Past Surgical History: 2017 Craniotomy for seizures complicated by subdural hematoma Shira botox injections for headaches [place] x 4, last one at [facility] 2020 Epiglottis surgery x 3 Hemorrhoid banding 2014 Esophageal dilatation [facility] 2019 and again in March 2020 Med list Oct 2022 No Known Allergies [...] currently sexually active Exercise: Limited Travel: From [place], went to college in [place], then went to [place] and now in [place]. [place] on vacation. Animal exposure: no pets Physical Exam AAO x3 , patient appeared bright and interactive over the phone. . February 2019 VL 3939 February 2019 CD4 [...] 10% December 2022 HIV viral load 867 Routine labs December 2022: Creatinine 1.4, potassium 3.3, AST 47, ALT 40, sodium 135, WBC 1.64, hematocrit 20.2, platelets 61. Patient was informed of these critical values on the evening of 01/25/2023 and refused admission/further workup. Assessment and Plan: 1) HIV - ART: Dolutegravir 50mg po BID, 3TC 150 mg twice daily tablet, 25mg TAF daily, in the past, had perfect adherence through the mail order pharmacy. Greatly appreciate our pharmacist assistance in making this work as it had a remarkable impact on the patient's life but with esophageal strictures, her adherence is dropped to 0 at this point. -Most recent CD4 count December 2022 50 at 10% -Most recent HIV VL December 2022 867 - OI prophylaxis: Keep up liquid bactrim. Patient with poor adherence with liquid Bactrim until restarted October 2022. - Compliance: Very poor secondary to esophageal strictures in the past 6 months - Sexual activity: None - HBV/HCV: Hep C Ab neg 2014, hep B surface ab neg/hep B surface ag neg. - PCM is at [facility] but patient has not been engaging in primary care which obviously is a detriment. Patient now is scheduled for a new primary care provider at the [facility]. - Disappointing to see patient's current labs collected December 2022, especially from a metabolic standpoint. It somewhat encouraging to see her viral load drop. Her lab findings are related to her inability to consistently take her ART due to her esophageal stricture. Patient has shown that when she actually takes her meds, she does very well but she cannot be relied upon to do this consistently and I think would benefit from IM ART once we get her viral load a little bit lower if this is possible. 2) Health maintenance - Colonoscopy: 2020 - Immunizations:Prevnar 13 in 2012, pneumovax 2009 and 2018. Tdap in 2018. Covid vaccine 2020 #3 and #4 all UTD. Flu Dec 2020. Patient needs influenza, RSV and COVID-vaccine this fall but has not gotten them yet.. - Pap: Last pap May 2020, normal by report - Mammogram:In 2020, normal by report 3) Seizures that have been recalcitrant to medications and required a [facility]ectomy[facility] that was complicated by a postop bleed several years ago. She is now back with her original neurologist from [facility]. Having infrequent breakthrough seizures but they seem improved recently probably related to better adherence with her meds. Neurology plan for now is to stay the course. She does not drive a car. Follow up with neurology in [facility] as scheduled 28 February 2023 4) Depression, always will be her largest problem that has made all other clinical concerns difficult for her to manage. Patient does not follow-up with her primary care provider regarding depression. Brittanie and I have spoken with her at length for many years now about the importance of looking intoa different living circumstance where she is around people who can help her with ADLs etc. and excepting care at least from a primary care provider who could restart antidepressants, and ideally, a psychiatrist. 5) PCM, see above with regards to trying to find a new primary in the [facility] clinic. 6) Active smoking, pt not interested in quitting now. 7) Esophageal strictures have been a massive hindrance to good adherence with Sz/HIV meds in past. Treated with esophageal dilatation several times in 2016 at [facility] and after a long hiatus of being lost to follow-up, she was dilated in January 2020 and again in March 2020 where were incredibly helpful but symptoms returned this spring 2022 and despite assuring us that she would check withGI to get her strictures dilated, she never followed through. Currently, her strictures are making it so that she cannot take her medications or obtain enough nutrition. [facility] Would defer to GI but I am wondering at some point if she would benefit from PEG tube placement if the patient was willing as her recurrent strictures and her inconsistent follow-up has made her ability to take medications/nutrition consistently. 8) Poor dentition, this has been a [...] get her esophageal strictures taking care of and then see what happens with regards to her diarrhea. 10) Hypokalemia noted several 2022. Probably related to diarrhea. Very difficult to replace acutely and monitor EKG etc as pt is so reluctant to engage with PCM.. Brittanie started liquid KCl 20 mill equivalents twice daily last week with a plan to repeat a potassium level next week. Again, patient'sreluctance to engage with care makes this process difficult but we are doing what we can to try to approach this safely and carefully considering the patient's reluctance to engage in primary care. 11) Severe anemia. Suggest possible GI bleed based on symptoms of questionable melenic stools but with advanced AIDS, differential is a little bit broader. Patient has been informed that her anemia places her at risk for DE etc. 12) Mild CHASE on most recent labs checked December 2022 with a creatinine of 1.4. Suspect this is related to dehydration 13) Significant thrombocytopenia, differential broad. We will not bill for this visit because patient has [employer] insurance, and they will not cover telehealth visits Antony Myers DO Pager [phone] Currently employed: No Adherence counseling: Yes Linguistic [...] Diagnoses Diagnosis AIDS (acquired immune deficiency syndrome) ([facility])- Primary Human immunodeficiency virus [HIV] disease documented in this encounter Care Teams Cargo Broker Relationship Specialty Start Date End Date Sarah Alejo NP [address] [place] [address] PCP - General 09/20/18 documented as of this encounter
--- OUTSIDE RECORDS SUMMARY | 2023-12-04 16:37 | XMS_ITS | Referral Summary ---
Author Organization [facility] Address [address] [place] [address] Care Team Providers Care Certified Master Safe Technician Name Role Phone Gina Alejoyce Nancy ASSOCIATE BRAND MANAGER Primary Care Provider [phone] Encounters Date Type Department Care Team Description 10/10/2023 Specialty Pharmacy [facility] [address] [place], [place] [address] Michael Herrera FOR[facility]LY [facility] Refill Coordination Outreach for HIV 09/25/2023 9:30 EDT Telemedicine [facility] Infectious Disease - [address] [address] Antony Myers, AIDS (acquired immune deficiency syndrome) ([facility]) (Primary Dx) from Last 3 Months Allergies No known active allergies Medications Medication [...] Diagnosed Date HIV (human immunodeficiency virus infection) (HC C-CMS) 05/15/2023 Immunizations Name Administration Dates Next Due Covid-19 [...] Mass Index - - Plan of Treatment Not on file road Street [address] [place] [address] Josiane Pacheco Personal/Family Self [address] [place], [place] [address] [place] [address] Josiane Pacheco Personal/Family Self [address] [place], [place] [address]road [place] [address] [place] [address] Josiane Pacheco Personal/Family Self 1955 [facility] [address] [place] [address] Josiane Pacheco Personal/Family Self [address] [place], [place] [address] [place] [address]Josiane Parry Personal/Family Self 1955 [facility] [address] [place] [address] [place] [address] Josiane Pacheco Personal/Family Self [address] [place] [address] [address] [place] [address] Josiane Pacheco Personal/Family Self [address] [place] [address] [address] [place] [address] Care Teams Certified Master Safe Technician Relationship Specialty Start Date End Date Sarah Alejo NP [address] [place] [address] PCP - General 09/20/18
--- OUTSIDE RECORDS SUMMARY | 2023-12-04 16:37 | XMS_ITS | Encounter Summary ---
Author Organization [facility] Address [address] [place] [address] Care Team Providers Care Animal Tech Name Role Phone MeloGinaSarah A LUMBER PULLER Primary Care Provider [phone] Encounter Details Date Type Department Care Team (Latest Contact Info) Description 04/19/2023 Specialty Pharmacy [facility] [address] [place], [place] [id number] Michael Herrera RPH Patient Education for HIV, Prospective Review for HIV, Refill Coordination Outreach for HIV Social History [...] as of this encounter Progress Notes * Michael Herrera RPH - 04/19/2023 1524 EST Called Josiane and reviewed injectable cabotegravir/rilpivirine (Cabenuva) therapy with her, includingdosing, administration, common side effects and the importance of not missing or delaying injections to avoid drug resistance. Josiane expressed understanding and stated that she is looking forward to her first Cabenuva injection. She has no questions or concerns at this time. Michael Herrera, PharmD Ambulatory Pharmacist [facility] Infectious Disease 05/16/2023 documented in this encounter Plan of Treatment Not on file documented as of this encounter Visit Diagnoses Not on filedocumented in this encounter Care Teams Animal Tech Relationship Specialty Start Date End Date Sarah Alejo, [address] [place] [address] PCP - General 09/20/18 documented as of this encounter
--- OUTSIDE RECORDS SUMMARY | 2023-12-04 16:37 | XMS_ITS | Encounter Summary ---
Author Organization [facility] Address [address] [place] [address] Care Team Providers Care Dry Heat Cabinet Attendant Name Role Phone Sarah Alejo SENIOR SOFTWARE QA ANALYST Primary Care Provider [phone] Reason for Visit * Reason Onset Date Comments Prior Auth, Medication 04/18/2023 Cabenuva (new start) Encounter Details Date Type Department Care Team ([facility] Contact Info) Description 04/18/2023 Telephone [facility] Infectious Disease - [facility] [address] [place], [place] [address] Antony Myers, DO [address] [facility], [address] [place] [address] Prior Auth, Medication (Cabenuva (new start) ) Social History Tobacco Use Types Packs/Day Years [...] 600 mg/3 mL- 900 mg/3 mL injectable suspensionIndications:Symp tomatic HIV infection (HCC-CMS) Inject 6 mL into the muscle every 4 weeks. 6 mL 1 04/19/2023 07/03/2023 documented in this encounter Miscellaneous Notes * Telephone Encounter - Lyndsay Zamora - 04/18/2023 1157 EST Prior Authorization Approval Medication: Cabenuva 900-600mg, inject once every 4 weeks for two months, then inject once every 8 weeks thereafter Insurance: FANNY Insurance Type: Medicare Part D Approval Dates: 04/19/23--until further notice Authorization Number: [id number] Required Pharmacy: No requirement [facility] able to fill?: YES Additional Info/Other Notes: approval letter in scans Prior Authorization Submission Process - Urgent New Medication: Cabenuva 900-600mg, inject once every 4 weeks for two months, then inject once every 8 weeks thereafter Insurance: FANNY Insurance Type: Medicare Part D PA Request Received: 04/17/23 PA Submission Date: 04/19/23 CMM: [id number] Notes: Submitted by: Lyndsay Cruz Phone: [phone] documented in this encounter Plan of Treatment Not on file documented as of this encounter Visit Diagnoses Diagnosis Symptomatic HIV infection ([facility])- Primary Human immunodeficiency virus [HIV] disease documented in this encounter Care Teams Dry Heat Cabinet Attendant Relationship Specialty Start Date End Date Sarah Alejo NP [address] [place] [address] PCP - General 09/20/18 documented as of this encounter
--- OUTSIDE RECORDS SUMMARY | 2023-12-04 16:37 | XMS_ITS | Encounter Summary ---
Author Organization [facility] Address [address] [place] [address] Care Team Providers Care Education Department Chair Name Role Phone Sarah Alejo VAT CLEANER Primary Care Provider [phone] Encounter Details Date Type Department Care Team (Late st Contact Info) Description 07/27/2022 Lab Requisition [facility] Pathology & Laboratory Medicine - [facility] [address] [place] [address] Outr Resulting Lab, Provider Social History Tobacco [...] Diagnosis Comments HIV 1 RNA QUANTITATION Routine 07/27/2022 10:10 EDT documented in this encounter Results * (ABNORMAL) HIV 1 RNA QUANTITATION (07/27/2022 10:10 EDT) HIV RNA Detection, Qual Detected( A) Undetected copies/mL 07/28/2022 11:39 EDT [facility] HIV 1 RNA Quant 1,280(H) Undetected copies/mL 07/28/2022 11:39 EDT [facility] Blood VENOUS BLOOD / Unknown 07/27/2022 10:10 EDT 07/27/2022 17:01 EDT Narrative [facility] - 07/28/2022 11:39 EDT The quantification range of this assay is 20 IU/mL to 10,000,000 IU/mL. ??Testing was performed using the Diamond HIV test ([employer] with the diamond Shape Collage0 System. Provider Outr Resulting Lab CHEMISTRY & BLOOD GAS ORDERABLES [facility] [address] [place] [address] documented in this encounter Visit Diagnoses Not on filedocumented in this encounter Care Teams Education Department Chair Relationship Specialty Start Date End Date Sarah Alejo NP [address] [place] [address] PCP - General 09/20/18 documented as of this encounter
--- OUTSIDE RECORDS SUMMARY | 2023-12-04 16:37 | XMS_ITS | Encounter Summary ---
Author Organization [facility] Address [address] [place] [address] Care Team Providers Care Bone Char Kiln Operator Name Role Phone Sarah Alejo ARCHITECTURE INTERN Primary Care Provider [phone] Encounter Details Date Type Department Care Team (Late st Contact Info) Description 03/14/2022 Specialty Pharmacy [facility] Ambulatory Pharmacy - Main [place] [address] [place], [place] [address] Licha Chua, [facility] Social History Tobacco Use Types Packs/Day Years [...] on filedocumented in this encounter Care Teams Bone Char Kiln Operator Relationship Specialty Start Date End Date Sarah Alejo NP [address] [place] [address] PCP - General 09/20/18 documented as of this encounter
--- OUTSIDE RECORDS SUMMARY | 2023-12-04 16:37 | XMS_ITS | Encounter Summary ---
Author Organization [facility] Address [address] [place] [address] Care Team Providers Care Medical Assistant Cardiology Name Role Phone Sarah Alejo BALANCE STAFF INSPECTOR Primary Care Provider [phone] Encounter Details Date Type Department Care Team (Late st Contact Info) Description 08/01/2023 Lab Requisition [facility] Pathology & Laboratory Medicine - [facility] [address] [place] [address] Outr Resulting Lab, Provider Social History Tobacco [...] Diagnosis Comments HIV 1 RNA QUANTITATION Routine 07/31/2023 14:00 EDT documented in this encounter Results * (ABNORMAL) HIV 1 RNA QUANTITATION (07/31/2023 14:00 EDT) HIV RNA Detection, Qual Detected( A) Undetected copies/mL 2023 11:43 EDT [facility] HIV 1 RNA Quant <20(H) Undetected copies/mL 2023 11:43 EDT [facility] Comment:HIV-1 RNA level is < 20 copies/mL. This assay cannot accurately quantify HIV-1RNA below this level. Blood VENOUS BLOOD / Unknown 07/31/2023 14:00 EDT 08/01/2023 17:04 EDT Narrative [facility] - 2023 11:43 EDT The quantification range of this assay is 20 IU/mL to 10,000,000 IU/mL. ??Testing was performed using the Diamond HIV test ([employer] with the diamond [employer] System. Provider Outr Resulting Lab CHEMISTRY & BLOOD GAS ORDERABLES [facility] [address] [place], [place] [id number] documented in this encounter Visit Diagnoses Not on filedocumented in this encounter Care Teams Medical Assistant Cardiology Relationship Specialty Start Date End Date Sarah Alejo NP [address] [place] [address] PCP - General 09/20/18 documented as of this encounter
--- OUTSIDE RECORDS SUMMARY | 2023-12-04 16:37 | XMS_ITS | Encounter Summary ---
Author Organization [facility] Address [address] [place] [address] Care Team Providers Care Supervisor Estimator And Drafter Name Role Phone Sarah Alejo NET WASHER Primary Care Provider [phone] Encounter Details Date Type Department Care Team (Late st Contact Info) Description 12/15/2021 Specialty Pharmacy [facility] Ambulatory Pharm[facility] - Main [place] [address] [place], [place] [address] Licha Chua, [facility] Social History Tobacco Use Types [...] as of this encounter Progress Notes * Derba Gillette - 12/15/2021 1621 EDT [facility] Specialty Pharmacy Delivery Information Hours: Monday-Monday 8:30am - 5:00pm *Pharmacist available network pricing consultant 19/09 Delivery Service: [facility] Delivery Window: 10am - 2pm Date of Delivery: 12/23/21 Tracking # [id number] documented in this encounter Plan of Treatment Not on file documented as of this encounter Visit Diagnoses Not on filedocumented in this encounter Care Teams Supervisor Estimator And Drafter Relationship Specialty Start Date End Date Sarah Alejo NP [address] [place] [address] PCP - General 09/20/18 documented as of this encounter
--- OUTSIDE RECORDS SUMMARY | 2023-12-04 16:37 | XMS_ITS | Encounter Summary ---
Author Organization [facility] Address [address] [place] [address] Care Team Providers Care Extracorporeal Technician Name Role Phone Sarah Alejo ASTRONOMY TEACHER Primary Care Provider [phone] Reason for Visit * Reason Comments Follow-up Encounter Details Date Type Department Care Team (Late st Contact Info) Description 08/08/2022 13:30 EDT Telemedicine [facility] Infectious Disease - [address] [id number] Antony Ramsey, [address] [facility], [address] [place] [address] Symptomatic HIV infection ([facility]) (Primary Dx) Social History Tobacco Use [...] of this encounter Progress Notes * Antony Ramsey DO - 08/08/2022 1330 EDT Images from the original note were not included. I spent a total of 30 minutes on the date of this encounter meeting with the patient and reviewing documentation/coordinating care as described in the above note. No procedures were performed at the time of the visit. Division of Infectious Disease Follow up/Progress Note Telephone visit 08/08/22 12:25 The concept of ???Telemedicine?? has been described [...] in patient???s medical or mental health care. I spent a total of 30 minutes with Josiane Pacheco today and 30 minutes of that time was spent in counseling and coordination of care as described in the progress note. HPI:??.??Junior??is a 67y.o.??female??with history significant for HIV/AIDS??diagnosed 1990, [...] rebound in the past few months. ??Labs from??May??2021 show CD4 count 134??and a viral load??<20. ?? Pt on Dolutegravir 50mg BID,??3TC 150mg tablet BID??and??TAF??25 mg??daily;??a regimen that was slected for the small size of tablets.?Dolutegravir is BID as her seizure medications may lower levels. ?She is also on??bactrim suspension for PJP prophy ? As background: ?? In the 2016 timeframe, patient transferred her care from [facility] ID clinic to the??[facility].?A lengthy review of ID notes from [facility] indicate that patient would frequently have viremia, [...] was swallowing difficulties.?She is??finally?plugged back into??GI at [facility] again which has been??incredibly??helpful??as they have dilated her esophagus several times.?At this point in time, patient states she has no problem swallowing an y of her medications. ?? [facility]back in February 2020??for diarrhea and dehydration??she??transferred to a local SNF??but unfortunately,??she signed out AMA??but globally is doing much better now. ?? Returned to neurology at [facility]??in 2020. ??Most recent visit in Nov 2020, the plan was to stay the course. ??Pt was reporting about 1 seizure per month which was improved/stable which resulted??in pt falling on floor/contusion to her forehead.?She does not drive a car. ?She remains without any social supports, lives alone,??does not have transportation so relies on walking for groceries etc.??and most interactions with [facility] recently have been home visits that [place]. ?? Since utilizing the mail order pharmacy and Brittanie going to her house for blood draws, adherence checks etc., patient made a remarkable rebound.?Esophageal problems seemed much improved.??Patient made a phenomenal turnaround once her esophagitis was fixed and mail order pharmacy started delivering her ART without any further gaps in care.? July 2022 update: Unfortunately, patient seems to have taken a downward turn again. It is always been a concern of ours but her esophageal strictures have come back and she has not informed anyone soit sounds like she is gone for significant period of time not being able to tolerate her pills. It is unclear why she waits until her visit for this to come to light that [facility]. She also admits to some diarrhea. No weight change. The pharmacy across the street from her house closed so it is somewhat harder for her to get routine medications but her HIV supply has been perfect through the mail. ?? Review of Systems: 10-point review of systems is negative except as noted in the HPI. ?? Past Medical History: Epilepsy with refractory seizures and required surgery??for partial??temporal??lobectomy, followed??neurology at [facility]. Cervical dysplasia Obesity HLD Esophageal stricture, requiring dilation??x 2 in past at [facility], and again more recently??in March2020.. Herpes zoster 2011 Anal fissures ? Etoh abuse, this is always been a concern. Poor adherence with ART??chronically, largely to 2 esophageal motility disorder??and underlying depression. Severe, untreated??depression Active smoker ? Past Surgical History:?? 2017??Craniotomy for seizures complicated by subdural hematoma Shira botox injections for headaches [place] x??4, last one at??[facility] 2020?? Epiglottis surgery x 3 Hemorrhoid banding 2014 Esophageal dilatation??[facility]??2020 and again in March 2020 ?? Current [...] friendly in her environment, patient finally agreed but she has failed to make the steps needed to change her environment. Sexual:??Not currently sexually active Exercise:??Limited Travel:??From [place],??went to college in [place],??then went to [place] and now in [place]. ??[place] on vacation. ?? Animal exposure:??no pets ?? Physical Exam AAO x3?? . ? February 2019??VL??3939 February 2019??CD4??63 at [...] 2022 viral load June viral load 1280 ?? Assessment and Plan: ?? 1) HIV - ART:??Dolutegravir 50mg po BID,??3TC??150 mg twice daily??tablet,??25mg??TAF??daily,??now with perfect adherence??through the mail order pharmacy.?Greatly appreciate our pharmacist assistance inmaking this work as it had a remarkable impact on the patient's life. -Most recent CD4 count??March 2022 228 -Most recent HIV??VL June 2022 1280 - OI prophylaxis:??Keep up liquid bactrim.?CD4 recovery seems to be plateaued. - Compliance:??perfect now that mail order is working. - Sexual activity:??None - HBV/HCV: ??Hep C Ab neg 2014, hep B surface ab neg/hep B surface ag neg. ? - PCM??is??at [facility], not recently however. -??Plan will be to stay with current ART??as it is clearly working. - Disappointing to see patient's viral load creeping back up. Surely this is related to her inability to consistently take her ART due to her esophageal stricture. What has always been frustrating isthat patient does not seem to recognize when she gets in trouble and does not have the insight to call gastroenterology on her own to set up another dilatation. Now that we have had this conversationtoday, patient states she will call [facility] GI this afternoon, then call us back to let us know when they can see her. In the past, once patient is dilated, everything gets better with regards to her HIV and seizures. When she gets dilated, we will repeat labs 2 to 3 months later to assure everything is working again. We will see again in about 6 weeks-8 weeks to get an update on how things aregoing and when she gets dilated, will get repeat labs a month or 2 later. ?? 2) Health maintenance - Colonoscopy:??2020 - Immunizations:Prevnar 13 in 2012, pneumovax 2009??and 2019. ??Tdap in??2019.?Covid vaccine 2020??#3 and #4 all UTD.?Flu Dec 2020 - Pap:??Last pap??May??2020, normal by report - Mammogram:In 2020, normal by report ?? 3) Seizures??that have been recalcitrant to medications and required a craniectomy-partial lobectomy at [facility]??that was complicated by a postop bleed??several years ago. ??She is??now back with her original neurologist from [facility].?Having infrequent breakthrough seizures??but they seem improved recently probably related to better adherence with her meds.?Neurology plan for now is to stay the course. ??She does not drive a car.?Follow up with neurology in [facility]??summer??2021. Patient still having small seizures and she knows to call [facility] for follow-up. Seizures could be related to poor p.o. intake of her seizure medications.. ?? 4)??Depression,??always??will be her largest problem??that has made all other clinical concerns difficult for her to manage.? Patient does not seem to consistently follow-up with her primary care provider regarding depression. Brittanie and I have spoken with her at length for many years now about the importance of looking into a different living circumstance where she is around people who can help her with ADLs etc. but patient has never been willing to accept the concept that maybe she would be better off in a custodial etc. ?? 5)??PCM,??seen at??[facility].?Sees Sarah Alejo. ?? 6) Active smoking,??pt??not interested in quitting now. ?? 7)??Esophageal strictures have been a massive hindrance to good adherence with Sz/HIV meds in past.?Treated with esophageal dilatation several times in 2015 at [facility]??and??after a long hiatusof being lost to follow-up, she was??dilated in January 2020 and again in March 2020??where were incredibly helpful.?Today,??patient is clearly going backwards again with significant vomiting and inability to keep her pills down. Patient will call [facility] today to schedule a follow-up visit and then let us know when that is. It would help if patient had standing visits at least every 6 months so that problems are identified earlier and she does not get behind with her stricture. ? 8) Poor dentition, this has been a problem for years and is always been a challenge to get the patient into see a dentist. ?? 9) diarrhea, differential very broad. No fevers and weight seems stable. I have asked patient to please touch bases with GI at [facility] if she is there anyway's for esophageal dilatation. ?? Antony Ramsey DO Pager [phone] ?? Currently employed:??No ?? Adherence counseling:??Yes ?? [...] than once in the past 12 months):??none ? documented in this encounter Miscellaneous Notes * Addendum Note - Antony Ramsey DO - 08/08/2022 1330 EDTAddended by: ANTONY RAMSEY on: 08/08/2022 12:57 Modules accepted: Level of Service documented in this encounter Plan of Treatment Not on file documented as of this encounter Visit Diagnoses Diagnosis Symptomatic HIV infection ([facility])- Primary Human immunodeficiency virus [HIV] disease documented in this encounter Care Teams Extracorporeal Technician Relationship Specialty Start Date End Date Sarah Alejo NP [address] [place] [address] PCP - General 09/20/18 documented as of this encounter
--- OUTSIDE RECORDS SUMMARY | 2023-12-04 16:37 | XMS_ITS | Encounter Summary ---
Author Organization [facility] Address [address] [place] [address] Care Team Providers Care Staff Trainer Name Role Phone Sarah Alejo ROTOR COIL TAPER Primary Care Provider [phone] Reason for Referral * Consult (Urgent) - Authorized Specialty Diagnoses / Procedures [facility] Diagnoses HIV infection, unspecified symptom status ([facility]) Antony Myers DO [address] [facility], [facility] [address] [place] [address] [facility] [address] [place] [address] Referral ID Status Reason Start Date Expiration Date Visits Requested Visits Authorized [id number] Authorized Specialty Services Required 04/17/2023 1 1 Question Answer PA Type: New Medication to be Prior Authorized: Cabenuva 900-600 mg, inject once every 4 weeks for two months, then inject once every 8 weeks thereafter Comments The purpose of this request is to inform precertification staff that the requested service needs to be reviewed for prior-authorization. Encounter Details Date Type Department Care Team ([facility] Contact Info) Description 04/17/2023 Telephone [facility] [address] [place], [place] [id number] Michael Herrera [facility] Social History Tobacco Use Types Packs/Day Years [...] Progress Notes * Michael Herrera RPH - 04/17/2023 1451 EST Received request from Dr. Antony Myers regarding Cabenuva, which would be administered at the [facility] where Josiane is seen for HIV care. Placed prior authorization request to investigate coverage through Josiane's pharmacy benefit via [facility]. Michael Herrera, PharmD Ambulatory Pharmacist [facility] Infectious Disease 04/17/2023 documented in this encounter Plan of Treatment Scheduled Referrals Name Type Priority Associated Diagnoses Orde r Schedule AMB CONS/FOLLOW UP SPECIALTY PHARMACY Outpatient Referral Urgent HIV infection, unspecified symptom status (HCC-CMS) Expected: 04/19/2023 (Approximate), Expires: 04/17/2024 documented as of this encounter Visit Diagnoses Diagnosis HIV infection, unspecified symptom status (HCC-CMS)- Primary documented in this encounter Care Teams Staff Trainer Relationship Specialty Start Date End Date Sarah Alejo NP [address] [place] [address] PCP - General 09/20/18 documented as of this encounter
--- OUTSIDE RECORDS SUMMARY | 2023-12-04 16:37 | XMS_ITS | Encounter Summary ---
Author Organization [facility] Address [address] [place] [address] Care Team Providers Care Jailer/Training Officer Name Role Phone Sarah Alejo SKYDIVING INSTRUCTOR Primary Care Provider [phone] Encounter Details Date Type Department Care Team (Late st Contact Info) Description 07/11/2022 Specialty Pharmacy [facility] Ambulatory Pharm[facility] - Main [employer] [address] [place], [place] [address] Licha hCua, [facility] Social History Tobacco Use Types Packs/Day [...] on filedocumented in this encounter Care Teams Jailer/Training Officer Relationship Specialty Start Date End Date Sarah Alejo NP [address] [place] [address] PCP - General 09/20/18 documented as of this encounter
--- OUTSIDE RECORDS SUMMARY | 2023-12-04 16:37 | XMS_ITS | Encounter Summary ---
Author Organization [facility] Address [address] [place] [address] Care Team Providers Care Inhalation Therapist Name Role Phone Sarah Alejo ARTIST MANAGER Primary Care Provider [phone] Encounter Details Date Type Department Care Team (Latest Contact Info) Description 06/21/2023 Specialty Pharmacy [facility] [address] [place], [place] [address] Michael Herrera RPH Refill Coordination Outreach for HIV, Initial Clinical Follow-up (by 6 weeks) for HIV Social History Tobacco Use Types [...] Progress Notes * Michael Herrera RPH - 06/21/2023 0905 EDT [facility] Infectious Disease Clinic Josiane Pacheco is a 67 y.o. female being treated with injectable cabotegravir/rilpivirine (Cabenuva) for HIV. The patient will continue this therapy until lack of efficacy after an adequate medication trial or unacceptable adverse effects support discontinuation. Spoke with Josiane barnes via telephone, who reports doing well on Cabenuva. She confirms no missed doses and no perceived side effects besides some minor injection site swelling that self-resolves. She feels that Cabenuva has given her a new freedom and means that she does not have to struggle with pills every day. She is happy with how this is going for her so far. She confirms that she will be having repeat bloodwork next month to assess therapeutic efficacy. Josiane has no questions or concerns for [facility] today. Contact Method for Follow Up: Telephone Medications: Current Outpatient Medications Medication Instructions cabotegravir-rilpivirine (CABENUVA) 600 mg/3 mL- 900 mg/3 mL injectable suspension 6 mL, intramuscular, EVERY 4 WEEKS clonazePAM (KLONOPIN) 1 mg, oral, 2 TIMES DAILY CYANOCOBALAMIN, VITAMIN B-12, ORAL oral dolutegravir (TIVICAY) 50 mg, oral, 2 TIMES DAILY hydrOXYzine (ATARAX) 25 mg, oral, 3 TIMES DAILY, PRN Anxiety lamiVUDine (EPIVIR) 150 mg, oral, 2 TIMES DAILY Multivitamins with Iron tablet 1 Tablet, oral, DAILY potassium chloride (KAYCIEL) 20 mEq/15 mL oral solution 20 mEq, oral, 2 TIMES DAILY sulfamethoxazole-trimethoprim (BACTRIM) 200-40 mg/5 mL suspension 10 mL, oral, DAILY sulfamethoxazole-trimethoprim (BACTRIM) 200-40 mg/5 mL suspension 10 mL, oral, DAILY Vemlidy 25 mg, oral, DAILY Vimpat 150 mg, oral, 2 TIMES DAILY I completed a complete review of the patient's current medical record, including medications, allergies and immunizations. There are no pertinent drug-drug interaction(s) at this time. Therapeutic Goals: suppress plasma HIV RNA and restore immunologic function, as measured by CD4 count Labs: HIV RNA Detection, Qual (copies/mL) Date Value 04/12/2023 Detected (A) 01/25/2023 Detected (A) 11/07/2022 Detected (A) HIV 1 RNA Quant (copies/mL) Date Value 04/12/2023 <20 (H) 01/25/2023 867 (H) 11/07/2022 65,200 (H) Absolute CD4 (Cells/uL) Date Value 01/25/2023 50 (L) 10/25/2022 86 (L) 04/06/2022 228 (L) % CD4 (%) Date Value 01/25/2023 4 (L) 10/25/2022 5 (L) 04/06/2022 6 (L) No results found for: CREATININE, CALCGFR No results found for: AST, ALT, ALKPHOS, TBIL, LABALBU, TP Adherence: Patient has missed no doses since last follow-up, as determined via patient self-report. Side effects/toxicities: Patient has had no perceived side effects or toxicities, besides minor injection site reactions, asdetermined via patient self-report. Health Maintenance: Health Maintenance Due Topic Date Due Hepatitis C Screen Never done RSV Immunization ( or 60+ Years) (1 - 1-dose 60+ series) Never done COVID-19 Vaccine (3 - Moderna risk series) 11/25/2020 Fall Risk Screening Never done Assessment: Josiane Pacheco is meeting goals of therapy and therapeutic benefit is too soon to assess. Provider to assess with next labs. Education Provided: Continue Cabenuva 600-900 mg every 2 months, administered by a healthcare professional (ID Nurse Brittanie Pina) Follow-up planned: - Clinic appointment: not yet scheduled - Laboratory monitoring: to be ordered by Dr. Antony Myers - Next refill due by 08/21/23 Michael Herrera, PharmD Ambulatory Pharmacist [facility] Infectious Disease 07/03/2023 Electronically signed by Michael Herrera [facility] at 07/03/2023 9:48 EDT documented in this encounter Plan of Treatment Not on file documented as of this encounter Visit Diagnoses Not on filedocumented in this encounter Care Teams Inhalation Therapist Relationship Specialty Start Date End Date Sarah Alejo NP [address] [place] [address] PCP - General 09/20/18 documented as of this encounter
--- OUTSIDE RECORDS SUMMARY | 2023-12-04 16:37 | XMS_ITS | Encounter Summary ---
Author Organization [facility] Address [address] [place] [address] Care Team Providers Care Relay Mechanic Name Role Phone Sraah Alejo BAKERY SUPERVISOR Primary Care Provider [phone] Reason for Visit * Reason Onset Date Comments Prior Auth, Medication 08/24/2021 Vemlidy ( re-auth) Encounter Details Date Type Department Care Team (Late st Contact Info) Description 08/24/2021 Telephone [facility] Infectious Disease - [facility] [address] [place], [place] [address] Antony Myers, DO [address] [facility], Level [address] [place] [address] Prior Auth, Medication (Vemlidy (re-auth)) Social History Tobacco Use Types Packs/Day Years [...] on filedocumented in this encounter Care Teams Relay Mechanic Relationship Specialty Start Date End Date Sarah Alejo NP [address] [place] [id number] PCP - General 09/20/18 documented as of this encounter
--- OUTSIDE RECORDS SUMMARY | 2023-12-04 16:37 | XMS_ITS | Encounter Summary ---
Author Organization [facility] Address [address] [place] [address] Care Team Providers Care Area Development Consultant Name Role Phone Sarah Alejo SLIP TENDER Primary Care Provider [phone] Encounter Details Date Type Department Care Team (Late st Contact Info) Description 03/04/[address] [facility] Ambulatory Pharm[facility] - Main [place] [address] [place], [place] [address] Licha Chua, [facility] Social History Tobacco Use Types [...] filedocumented in this encounter Care Teams Area Development Consultant Relationship Specialty Start Date End Date Sarah Alejo NP [address] [place] [address] PCP - General 09/20/18 documented as of this encounter
--- OUTSIDE RECORDS SUMMARY | 2023-12-04 16:37 | XMS_ITS | Encounter Summary ---
Author Organization [facility] Address [address] [place] [address] Care Team Providers Care Permastone Applicator Name Role Phone Sarah Alejo GIFT PACKER Primary Care Provider [phone] Encounter Details Date Type Department Care Team (Latest Contact Info) Description 10/10/2023 Specialty Pharmacy [facility] Specialty [facility] [address] [place], [place] [address] Michael Herrera [facility] Refill Coordination Outreach for HIV [...] on filedocumented in this encounter Care Teams Permastone Applicator Relationship Specialty Start Date End Date Sarah Alejo NP [address] [place] [address] PCP - General 09/20/18 documented as of this encounter
--- OUTSIDE RECORDS SUMMARY | 2023-12-04 16:37 | XMS_ITS | Encounter Summary ---
Author Organization [facility] Address [address] [place] [address] Care Team Providers Care Sap Grc Security Name Role Phone Sarah Alejo FIRE EXTINGUISHER INSTALLER Primary Care Provider [phone] Encounter Details Date Type Department Care Team (Late st Contact Info) Description 08/11/2022 Specialty Pharmacy [facility] Ambulatory Pharmacy - Main [place] [address] [place], [place] [address] Licha Chua, [facility] [...] filedocumented in this encounter Care Teams Sap Grc Security Relationship Specialty Start Date End Date Sarah Alejo NP [address] [place] [address] PCP - General 09/20/18 documented as of this encounter
--- OUTSIDE RECORDS SUMMARY | 2023-12-04 16:37 | XMS_ITS | Encounter Summary ---
Author Organization [facility] Address [address] [place] [address] Care Team Providers Care District Agent Name Role Phone Sarah Alejo WEB PRESSMAN Primary Care Provider [phone] Encounter Details Date Type Department Care Team (Late st Contact Info) Description 10/25/2022 Lab Requisition [facility] Pathology & Laboratory Medicine - [facility] [address] [place] [address] Outr Resulting Lab, Provider Social History Tobacco [...] Associated Diagnosis Comments T CELL SUBSETS Routine 10/25/2022 14:00 EDT documented in this encounter Results * (ABNORMAL) T CELL SUBSETS (10/25/2022 14:00 EDT) % CD3 90(H) 56 - 84 % 10/26/2022 14:31 EDT [facility] % CD4 5(L) 31 - 64 % 10/26/2022 14:31 EDT [facility] % CD8 84(H) 9 - 39 % 10/26/2022 14:31 EDT [facility] Absolute CD3 1,652 840 - 2,669 Cells/uL 10/26/2022 14:31 EDT [facility] Absolute CD4 86(L) 488 - 1,734 Cells/uL 10/26/2022 14:31 EDT [facility] Absolute CD8 1,554(H) 154 - 1,097 Cells/uL 10/26/2022 14:31 T [facility] 4/8 Ratio 0.06(L) >=0.90 10/26/2022 14:31 EDT [facility] Blood VENOUS BLOOD / Unknown 10/25/2022 14:00 EDT 10/25/2022 21:28 EDT Provider Outr Resulting Lab IMMUNOLOGY A ND SEROLOGY ORDERABLES Performing Organization Address City/State/[facility] Co de Phone Number [facility] [address] [place] [address] documented in this encounter Visit Diagnoses Not on filedocumented in this encounter Care Teams District Agent Relationship Specialty Start Date End Date Sarah Alejo, [place] [address] [place] [address] PCP - General 09/20/18 documented as of this encounter
--- OUTSIDE RECORDS SUMMARY | 2023-12-04 16:37 | XMS_ITS | Encounter Summary ---
Author Organization [facility] Address [address] [place] [address] Care Team Providers Care Database Support Name Role Phone Sarah Alejo ACTING TEACHER Primary Care Provider [phone] Reason for Visit * Reason Onset Date Comments Prior Auth, Medication 08/23/2021 Vemlidy ( re-auth) Encounter Details Date Type Department Care Team (Late st Contact Info) Description 08/23/2021 Telephone [facility] Infectious Disease - [facility] [address] [place] [address] Antony Myers, DO [address] [facility], Level [address] [place] [address] Prior Auth, Medication (Vemlidy (re-auth)) [...] encounter Miscellaneous Notes * Telephone Encounter - Debra Gillette - 08/23/2021 1705 EDT [facility] Request for PA/Funding Drug Name: Vemlidy 25mg tabs RX Insurance: [id number] Remaining: Left VM for PT PA Required: Yes Funding Needed: No documented in this encounter Plan of Treatment Not on file documented as of this encounter Visit Diagnoses Not on filedocumented in this encounter Care Teams Database Support Relationship Specialty Start Date End Date Sarah Alejo NP [address] [place] [address] PCP - General 09/20/18 documented as of this encounter
--- OUTSIDE RECORDS SUMMARY | 2023-12-04 16:37 | XMS_ITS | Encounter Summary ---
Author Organization [facility] Address [address] [place] [address] Care Team Providers Care Putter In Name Role Phone Sarah Alejo POCKET MAKER Primary Care Provider [phone] Encounter Details Date Type Department Care Team (Late st Contact Info) Description 11/12/2022 Specialty Pharmacy [facility] Ambulatory Pharmacy - Main [place] [address] [place], [place] [address] Licha Chua, [facility] Social History Tobacco Use [...] on filedocumented in this encounter Care Teams Putter In Relationship Specialty Start Date End Date Sarah Alejo NP [address] [place] [address] PCP - General 09/20/18 documented as of this encounter
--- OUTSIDE RECORDS SUMMARY | 2023-12-04 16:37 | XMS_ITS | Encounter Summary ---
Author Organization [facility] Address [address] [place] [address] Care Team Providers Care Towboat Engineer Name Role Phone Sarah Alejo SCRAP SEPARATOR Primary Care Provider [phone] Reason for Visit * Reason Onset Date Comments Medications Refill 08/23/2021 Encounter Details Date Type Department Care Team (Late st Contact Info) Description 08/23/2021 Refill [facility] Infectious Disease [address] [address] Antony Myers, DO [address] [facility], [facility] [address] [place] [address] Medications Refill Social History Tobacco Use Types Packs/Day [...] Diagnoses Diagnosis AIDS (acquired immune deficiency syndrome) ([facility])- Primary Human immunodeficiency virus [HIV] disease documented in this encounter Care Teams Towboat Engineer Relationship Specialty Start Date End Date Sarah Alejo NP [address] [place] [phone] PCP - General 09/20/18 documented as of this encounter
--- OUTSIDE RECORDS SUMMARY | 2023-12-04 16:38 | XMS_ITS | Encounter Summary ---
Author Organization [facility] Address [address] [place] [address] Care Team Providers Care Repair Supervisor Name Role Phone Sarah Alejo MOTORS ASSEMBLER Primary Care Provider [phone] Encounter Details Date Type Department Care Team (Late st Contact Info) Description 02/17/2021 Lab Requisition [facility] Pathology & Laboratory Medicine - [facility] [address] [place] [address] Outr Resulting Lab, Provider Social History Tobacco [...] Diagnosis Comments HIV 1 RNA QUANTITATION Routine 02/16/2021 15:50 EST documented in this encounter Results * (ABNORMAL) HIV 1 RNA QUANTITATION (02/16/2021 15:50 EST) HIV RNA Detection, Qual Detected( A) Undetected copies/mL 02/18/2021 14:16 EST [facility] HIV 1 RNA Quant 25(H) Undetected copies/mL 02/18/2021 14:16 EST [facility] Blood VENOUS BLOOD / Unknown 02/16/2021 15:50 EST 02/17/2021 16:53 EST Narrative [facility] - 02/18/2021 14:16 EST New platform in use 09/21/2020 The quantification range of this assay is 20 IU/mL to 10,000,000 IU/mL. ??Testing was performed using the Diamond HIV test ([employer] with the diamond [employer] System. Provider Outr Resulting Lab CHEMISTRY & BLOOD GAS ORDERABLES [facility] [address] [place] [address] documented in this encounter Visit Diagnoses Not on filedocumented in this encounter Care Teams Repair Supervisor Relationship Specialty Start Date End Date Sarah Alejo NP [address] [place] [address] PCP - General 09/20/18 documented as of this encounter
--- OUTSIDE RECORDS SUMMARY | 2023-12-04 16:38 | XMS_ITS | Encounter Summary ---
Author Organization [facility] Address [address] [place] [address] Care Team Providers Care Naval Architect Name Role Phone MeloGinaSarah A ASSISTANT TODDLER TEACHER Primary Care Provider [phone] Encounter Details Date Type Department Care Team (Late st Contact Info) Description 03/11/2020 Lab Requisition [facility] Pathology & Laboratory Medicine - [facility] [address] [place] [address] Outr Resulting Lab, Provider Social History Tobacco [...] Procedure Name Priority Date/Time Associated Diagnosis Comments ZZCOVID-19 TEST [facility] PCR Today 03/11/2020 15:45 EST COVID-19 TESTING Routine 03/11/2020 15:4 5 EST documented in this encounter Results * COVID-19 TEST [facility] PCR (03/11/2020 15:45 EST) Swab ENTIRE NASOPHARYNX / Unknown 03/11/2020 15:45 EST 03/11/2020 20:46 EST Provider Outr Resulting Lab MICROBIOLOGY - GENERAL ORDERABLES Performing Organization Address [facility] Co de Phone Number [facility] [address] [place] [address] * COVID-19 TESTING (03/11/2020 15:45 EST) COVID-19 rt-PCR Result Negative Negative 03/11/2020 23:53 EST [facility] Comment: This test has not been FDA cleared or approved. This test has been authorized by FDA under an EUA for use by authorized laboratories. This test has been authorized only for detection of nucleic acid from 2019-nCoV, not for any other viruses or pathogens. This test is only authorized for the duration of the declaration that circumstances exist justifying the authorization of emergency use of in vitro diagnostic tests for detection and/or diagnosis of 2019-nCoV under section 564(b)(1) of Act, 21 U.S.C ?? 360bbb-3(b) (1), unless the authorization is terminated or revoked sooner. Negative results do not preclude 2019-nCoV infection and should not be used as the sole basis for treatment or other patient management decisions. Negative results must be combined with clinical observations, patient history, and epidemiological information. Performed on the [employer] Fusion instrument Performing Lab [place] [facility] Lab 03/11/2020 23:53 EST [facility] Swab 03/11/2020 15:4 5 EST 03/11/2020 20:46 EST Provider Outr Resulting Lab MICROBIOLOGY - GENERAL ORDERABLES Performing Organization Address City/[facility]/ZIP Co de Phone Number [facility] [address] [place] [address] documented in this encounter Visit Diagnoses Not on filedocumented in this encounter Care Teams Naval Architect Relationship Specialty Start Date End Date Sarah Alejo NP [address] [place] [address] PCP - General 09/20/18 documented as of this encounter
--- OUTSIDE RECORDS SUMMARY | 2023-12-04 16:38 | XMS_ITS | Encounter Summary ---
Author Organization [facility] Address [address] [place] [address] Care Team Providers Care Lactation Coordinator Name Role Phone Sarah Alejo CLINICAL NURSING COORDINATOR Primary Care Provider [phone] Reason for Visit * Reason Comments Follow-up Encounter Details Date Type Department Care Team (Late st Contact Info) Description 04/12/2021 11:00 EST Telemedicine [facility] Infectious Disease - [address] [id number] Antony Myers, [address] [facility], [address] [place] [address] AIDS (acquired immune deficiency syndrome) [...] Progress Notes * Antony Myers DO - 04/12/2021 1100 EST Images from the original note were not included. I spent a total of 30 minutes on the date of this encounter meeting with the patient and reviewing documentation/coordinating care as described in the above note. No procedures were performed at the time of the visit. Division of Infectious Disease Follow up/Progress Note Telephone visit 04/12/21 11:27 The concept of ???Telemedicine?? has been described [...] described in the progress note. HPI:??.??Junior??is a 65y.o.??female??with history significant for HIV/AIDS diagnosed 1990, recalcitrant seizure disorder, severe untreated depression??and esophageal dysmotility??who presents with routine HIV??follow up. ??We are trying to see her frequently to continue to work on the challengeof her adherence with her ART in the setting of her depression and esophageal dysmotility. With pharmacy assistance in facilitating mail order, direct home delivery, patient has made a remarkable rebound in the past few months. Labs from March 2021 show CD4 count 145 and a viral load <20. ?? Pt on Dolutegravir 50mg BID,??3TC 150mg tablet BID??and??TAF 25 mg daily;??a regimen that was slected for the small size of tablets.?Dolutegravir is BID as her seizure medications may lower levels. ?She is also on bactrim suspension for PJP prophy ? As background: ?? In the 2016 timeframe, patient transferred her care from [facility] to the [facility]. ??A lengthy review of ID notes from [facility] indicate that patient would frequently have viremia, genotypes alwaysshowed wild-type virus so it was presumed she just wasn't taking her meds.?There is always a question over the years of significant alcohol use as well but that does not seem to be a problem in the last few years. ?? Her main difficulty for years in adhering to her ART was swallowing difficulties.?She is??finally?? plugged back into GI at [facility] again which has been??incredibly??helpful??as they have dilated heresophagus several times. At this point in time, patient states she has no problem swallowing any ofher medications. ?? After her brief admission to??[facility]??back in February 2020??for diarrhea and dehydration??she??transferred to a local SNF??but unfortunately,??she signed out AMA but globally is doing much better now. ?? Returned to neurology at [facility] in 2020. Most recent visit in Nov 2020, the plan was to stay the course. Pt was reporting about 1 seizure per month which was improved/stable which resulted in pt falling on floor/contusion to her forehead. She does not drive a car. ?? She remains without any social supports, lives alone, does not have transportation so relies on walking for groceries etc. and most interactions with [facility] recently have been home visits that Brittanie makes. ?? Since utilizing the mail order pharmacy and Brittanie going to her house for blood draws, adherence checks etc., patient has made a remarkable rebound. Esophageal problems seem OK. Patient made a phenomenal turnaround once her esophagitis was fixed and mail order pharmacy started delivering her ART without any further gaps in care. Review of Systems: 10-point review of systems is negative except as noted in the HPI. ?? Past Medical History: Epilepsy with refractory seizures and required surgery??for partial temporal lobectomy, followed??neurology at [facility]. Cervical dysplasia Obesity HLD Esophageal stricture, requiring dilation??x 2 in past at [facility], and again more recently??in 2020.. Herpes zoster 2011 Anal fissures ? Etoh abuse, this is always been a concern based on prior notes??but she denies recent use. Poor adherence with ART??chronically, largely to 2 esophageal motility disorder??and underlying depression. Severe, untreated??depression Active smoker ? Past Surgical History:?? 2017??Craniotomy for seizures complicated by subdural hematoma Shira botox injections for headaches Mcdonald x 4, last one at [facility] 2020 Epiglottis surgery x 3 Hemorrhoid banding 2014 Esophageal dilatation??[facility]??2019 and again in March 2020 ?? Current Outpatient Medications: Updated Dec 2020 ?? No Known Allergies ?? Social History Tobacco:??1 pack/week Alcohol:??There have always been questions of alcohol use in the past in her record, patient??continues to deny recent use Recreational drugs:none Herbal:none Professional:??Not working Relationships / Living Situation:??Living alone,??essentially no local support. Son is estranged. ??Brittanie??and I have recommended over the years that she would benefit from living in some type of fdc to improve her socialization?? but she always declines. Patient does admit that she feels safe in her current apartment. Sexual:??Not currently sexually active Exercise:??Limited Travel:??From [place],??went to college in [place],??then went to [place] and now in [place]. ??[place] on vacation. [...] or immunocompromised state. ?? Physical Exam AAO x3,??181 lbs in 2020 (self reported Mar 2021 is 189). 139lbs was her lowest 2019 ?? . ? February 2019??VL??3939 February 2019??CD4??63 at 6% ?? August 2019 VL 28,000 August 2019 CD4 51 ?? Feb 2020 VL 10,000 Feb 2020??CD4??27 ?? May 2020 viral load 1007 May 2020 CD4 178 ?? Dec 2020 VL 56,400 Dec 2020 CD4 Jan VL 23 Apr 2021 VL < 18 Apr 2021 CD4 145 ?? Assessment and Plan: ?? 1) HIV ? - ART:??Dolutegravir 50mg po BID,??3TC??150 mg twice daily tablet,??25mg??TAF??daily, now with perfect adherence. -Most recent CD4 count Mar 2021 145 -Most recent HIV VL Mar 2021 < 20 - OI prophylaxis:??Keep up liquid bactrim. If viral load undetectable in June 2021 and CD4 count > 200, I think we can stop her Bactrim. - Compliance:??perfect now that mail order is working. - Sexual activity:??None - HBV/HCV: ??Hep C Ab neg 2014, hep B surface ab neg/hep B surface ag neg. ? - PCM??is??at [facility], not recently however. - Plan will be to stay with current ART as it is clearly working. -Close follow-up in 3 months to assure patient does not develop esophageal problems which hinders her adherence with ART. We'll repeat labs June 2021. ?? 2) Health maintenance - Cholesterol:??LDL 117 in Mar 2018 - Diabetes:??FSBS 95 in Mar 2018 - Colonoscopy:??2020 - Immunizations:Prevnar 13 in 2012, pneumovax 2009??and 2019. ??Tdap in??2019.?Covid vaccine 2020 #3 UTD. ??Flu Dec 2020 - Pap:??Last pap??May??2020, normal by report - Mammogram:In 2020, normal by report ?? 3) Seizures??that have been recalcitrant to medications and required a craniectomy-partial lobectomy at [facility]??that was complicated by a postop bleed??several years ago. ??She is??now back with her original neurologist from [facility].?It is discouraging to hear she continues to have breakthrough seizures but they seem improved recently probably related to better adherence with her meds. Neurology plan for now is to stay the course. ??Patient states this is a lifelong problem and does not seem alarmed by it. ??She does not drive a car. ??Follow up with neurology in [facility] March 2021 ?? 4)??Depression,??always??her largest problem??that has made all other clinical concerns difficult for her to manage.? Seems OK now. ?? 5)??PCM,??seen at??[facility]. Sees Sarah Alejo. ?? 6) Active smoking,??pt??not interested in quitting now. ?? 7)??Esophageal strictures have been a massive hindrance to good adherence with Sz/HIV meds in past.?Treated with esophageal dilatation several times in 2016 at [facility]??and after a long hiatus of being lost to follow-up, she was??dilated in January 2020 and again in March 2020 where were incredibly helpful. Today, is stable but we're always vigilant about new problems. She feels comfortable with just staying the course for now. She also feels her neurologist in [facility] can easily prompt a visit with [facility] GI if needed. ?? 8)?? Very limited, essentially none, social support. All interactions with HIV clinic are in personvisits when Brittanie drives to her apartment. Patient declines opportunities to live in a fdc type setting. ?? Antony Myers DO Pager [phone] ?? Currently employed:??No ?? Adherence counseling:??Yes ?? [...] 12 months):??none ? documented in this encounter Plan of Treatment Not on file documented as of this encounter Visit Diagnoses Diagnosis AIDS (acquired immune deficiency syndrome) ([facility])- Primary Human immunodeficiency virus [HIV] disease documented in this encounter Care Teams Lactation Coordinator Relationship Specialty Start Date End Date Sarah Alejo NP [address] [place] [address] PCP - General 09/20/18 documented as of this encounter
--- OUTSIDE RECORDS SUMMARY | 2023-12-04 16:38 | XMS_ITS | Encounter Summary ---
Author Organization [facility] Address [address] [place] [address] Care Team Providers Care Fisher Seal Name Role Phone Melo Sarah Cruz DIRECTOR COLLEGE Primary Care Provider [phone] Encounter Details Date Type Department Care Team (Late st Contact Info) Description 12/04/2019 Orders Only [facility] Pathology & Laboratory Medicine - [facility] [address] [place] [address] Outr Resulting Lab, Provider Social History Tobacco [...] Name Priority Date/Time Associated Diagnosis Comments MISCELLANEOUS TESTFRANCISCO Routine 11/12/2019 14:55 EDT documented in this encounter Results * MARIA ISABELCELLANEOUS TESTFRANCISCO (11/12/2019 14:55 EDT) Dayananeous TestFrancisco HIV-1 Genotype 12/04/2019 9:12 EDT [facility] Comment:See scanned/suppleme ntary report. Blood VENOUS BLOOD / Unknown Venipuncture / Unknown 11/12/2019 14:55 EDT 12/04/2019 7:52 EDT Provider Outr Resulting Lab CHEMISTRY & BLOOD GAS ORDERABLES [facility] [address] [place] [address] documented in this encounter Visit Diagnoses Not on filedocumented in this encounter Care Teams Fisher Seal Relationship Specialty Start Date End Date Sarah Alejo, CAROLE [address] [place] [id number] PCP - General 09/20/18 documented as of this encounter
--- OUTSIDE RECORDS SUMMARY | 2023-12-04 16:38 | XMS_ITS | Encounter Summary ---
Author Organization [facility] Address [address] [place] [address] Care Team Providers Care Bioinformatics Specialist Name Role Phone Sarah Alejo DRY BOSS Primary Care Provider [phone] Reason for Visit * Reason Onset Date Comments Follow-up 10/30/2019 Encounter Details Date Type Department Care Team (Late st Contact Info) Description 10/30/2019 Telephone [facility] Infectious Disease - [address] [id number] Antony Myers, [address] [facility], [address] [place] [address] Follow-up Social History Tobacco Use [...] Telephone Encounter - Antony Myers DO - 10/30/2019 1611 EDT I connected with Elva who is the nurse practitioner that is covering for Sarah (her PCM) in [facility] this morning. Elva had access to my notes so was able to get a sense of what had been going on with the patient over the past year. She stated she will try to review some of the baldwin concerns wehave for the patient from a primary care standpoint including her depression, her inability to maintain adequate nutrition and take her medications appropriately due to her esophageal stricture and her intractable seizures. She will make sure that the patient has a follow-up appointment with Sarah to keep working on these problems in November. Brittanie was contacted by the [facility] for [employer] who she had reached out to last week to seeif we could get a home safety assessment. The technical service representative from the [facility] unfortunately stated that Josiane refused to have them come to her home for safety evaluation. And paraphrasing what Josiane told to the technical service representative, she stated I am all right now. This is very discouraging as the patient continues to avoid/refuse efforts that are being designed to help her. We will schedule her for a follow-up with the HIV clinic in November. We will try to reconnect with Elva sometime this week just to see how the visit went this morning. I am very concerned with the way the patient refuses help for her inability to swallow, her depression, her seizures, her HIV medications and home safety evaluations. documented in this encounter Plan of Treatment Not on file documented as of this encounter Visit Diagnoses Not on filedocumented in this encounter Care Teams Bioinformatics Specialist Relationship Specialty Start Date End Date Sarah Alejo NP [address] [place] [id number] PCP - General 09/20/18 documented as of this encounter
--- OUTSIDE RECORDS SUMMARY | 2023-12-04 16:38 | XMS_ITS | Encounter Summary ---
Author Organization [facility] Address [address] [place] [address] Care Team Providers Care Review Coordinator Name Role Phone Sarah Alejo JAVA ORACLE DEVELOPER Primary Care Provider [phone] Encounter Details Date Type Department Care Team (Late st Contact Info) Description 04/01/2021 Lab Requisition [facility] Pathology & Laboratory Medicine - [facility] [address] [place] [address] Outr Resulting Lab, Provider Social History Tobacco [...] Associated Diagnosis Comments T CELL SUBSETS Routine 03/31/2021 12:30 EST HIV 1 RNA QUANTITATION Routine 03/31/2021 12:30 EST documented in this encounter Results * (ABNORMAL) HIV 1 RNA QUANTITATION (03/31/2021 12:30 EST) HIV RNA Detection, Qual Detected( A) Undetected copies/mL 04/05/2021 14:55 EST [facility] HIV 1 RNA Quant <20(H) Undetected copies/mL 04/05/2021 14:55 [facility] Comment:HIV-1 RNA level is < 20 copies/mL. This assay cannot accurately quantify HIV-1RNA below this level. Blood VENOUS BLOOD / Unknown 03/31/2021 12:30 EST 04/01/2021 17:22 EST Narrative [facility] - 04/05/2021 14:55 EST New platform in use 09/21/2020 The quantification range of this assay is 20 IU/mL to 10,000,000 IU/mL. ??Testing was performed using the Diamond HIV test ([employer] with the diamond DashBurst0 System. Provider Outr Resulting Lab CHEMISTRY & BLOOD GAS ORDERABLES [facility] [address] [place] [address] * (ABNORMAL) T CELL SUBSETS (03/31/2021 12:30 EST) % CD3 90(H) 56 - 84 % 04/02/2021 14:20 [facility] % CD4 6(L) 31 - 64 % 04/02/2021 14:20 [facility] % CD8 84(H) 9 - 39 % 04/02/2021 14:20 [facility] Absolute CD3 2,165 840-2,669 Cells/uL 04/02/2021 14:20 [facility] Absolute CD4 145(L) 488-1,734 Cells/uL 04/02/2021 14:20 [facility] Absolute CD8 2,015(H) 154-1,097 Cells/uL 04/02/2021 14:20 [facility] 4/8 Ratio 0.07(L) >=0.90 04/02/2021 14:20 [facility] Blood VENOUS BLOOD / Unknown 03/31/2021 12:30 EST 04/01/2021 17:14 EST Provider Outr Resulting Lab IMMUNOLOGY A ND SEROLOGY ORDERABLES [facility] [address] [place] [address] documented in this encounter Visit Diagnoses Not on filedocumented in this encounter Care Teams Review Coordinator Relationship Specialty Start Date End Date Sarah Alejo NP [address] [place] [id number] PCP - General 09/20/18 documented as of this encounter
--- OUTSIDE RECORDS SUMMARY | 2023-12-04 16:38 | XMS_ITS | Encounter Summary ---
Author Organization [facility] Address [address] [place] [address] Care Team Providers Care Chief Quality Officer Name Role Phone Sarah Alejo SITE LEASING AGENT Primary Care Provider [phone] Encounter Details Date Type Department Care Team (Late st Contact Info) Description 04/28/2021 Specialty Pharmacy [facility] - Main [place] [address], [place] [address] Licha Chua, [facility] - [...] on filedocumented in this encounter Care Teams Chief Quality Officer Relationship Specialty Start Date End Date Sarah Alejo NP [address] [place] [address] PCP - General 09/20/18 documented as of this encounter
--- OUTSIDE RECORDS SUMMARY | 2023-12-04 16:38 | XMS_ITS | Encounter Summary ---
Author Organization [facility] Address [address] [place] [address] Care Team Providers Care Conditioner Tumbler Name Role Phone Sarah Alejo PRODUCT DESIGN ENGINEER Primary Care Provider [phone] Encounter Details Date Type Department Care Team (Late st Contact Info) Description 03/26/2021 Specialty Pharmacy [facility] - Main [place] [address] [place], [place] [id number] Licha Chua, [facility] Social History Tobacco Use Types [...] on filedocumented in this encounter Care Teams Conditioner Tumbler Relationship Specialty Start Date End Date Sarah Alejo NP [address] [place] [address] PCP - General 09/20/18 documented as of this encounter
--- OUTSIDE RECORDS SUMMARY | 2023-12-04 16:38 | XMS_ITS | Encounter Summary ---
Author Organization [facility] Address [address] [place] [address] Care Team Providers Care Blind Aide Name Role Phone Sarah Alejo SHORTS SIFTER Primary Care Provider [phone] Reason for Visit * Reason Comments Follow-up Encounter Details Date Type Department Care Team (Late st Contact Info) Description 11/23/2020 12:00 EDT Telemedicine [facility] Infectious Disease - [address] [id number] Antony Myers, [address] [facility], [address] [place] [address] Symptomatic HIV infection ([facility]) (Primary Dx) Social History Tobacco Use Types [...] Progress Notes * Antony Myers DO - 11/23/2020 1200 EDT Images from the original note were not included. I spent a total of 30 minutes on the date of this encounter meeting with the patient and reviewing documentation/coordinating care as described in the above note. No procedures were performed at the time of the visit. Division of Infectious Disease Follow up/Progress Note 11/20/20 14:09 TELEMEDICINE VIDEO VISIT Today's visit was provided through telemedicine video conferencing: The location of the patient : Home The location of the provider: Office The following staff and their role did [...] medical or mental health care. HPI:??Ms.??Pacheco??is a 65y.o.??female??with history significant for HIV/AIDS, recalcitrant seizure disorder, severe depression??and esophageal dysmotility??who presents with routine HIV??follow up.?Her last visit was in?July??2019 via phone call. ??We are trying to see her frequently to cont inue to work on the challenge of her adherence with her ART in the setting of her depression and eso phageal dysmotility. ??Labs in??Feb 2020 show CD4 27 at 6% , VL 10,069 but when repeated on 10 June, CD4 178 at 8% and viral load 1007 after excellent adherence for the past few months. ?? HIV diagnosed in 1990??and most of her care for HIV occurred down in [facility] until about??4??years ago. ?? Pt on Dolutegravir 50mg BID,??liquid??3TC??150mg BID??and??25 mg??TAF??daily,??a regimen that was slected for the small size of tablets of availability of liquid formulation due to difficulty in swallowing in past.?Dolutegravir is BID as her seizure medications may lower levels. ?She is also on bactrim suspension for PCP prophy??but unfortunately,??due some confusion over her refill status/a vailability of ART and pharmacy stocks in [facility], patient ran out of her ART for about 2 weeks thismonth. Brittanie identified this problem about a week ago and made sure she got a fresh supply and is now back on them. ?? As background: Pt cared for at both [facility] and [facility] in past with difficulties in adherence. ??A lengthy review of ID notes from [facility] indicate that patient would frequently have viremia, genotypes always showed wild-type virus so it was presumed she just wasn't taking her meds. There is always a question over the years of significant alcohol use as well. ??After years in [facility] system, she returned to [facility] HIV clin ic in 2017. ?? Her main difficulty for years in adhering to her ART was swallowing difficulties.?She is finallyseeing GI at [facility] again which has been incredibly helpful as they have dilated her esophagus several times and she can finally be adherent with all her medications again in addition to improving her caloric intake. ?? In the past, she had always been incredibly nonspecific and tangential when we try to clarify exactly how much of her ART she is actually able to keep down? She has transferred her neurology care back to neurology at [facility] which I think has been helpful as patient appears to have a therapeutic relationship with them. After her brief admission to??[facility]??back in February 2020??for diarrhea and dehydration??she??transferred to a local SNF??but unfortunately,??she signed out AMA and arrived back home with limited foodetc. At first but primary care provider assured she had good support, visiting nurses, and evaluation by palliative care etc. which was helpful. ?? At her most recent visit with us in June, she looks globally much improved with regards to depression, outlook on life, adherence with medications etc. She continues to have breakthrough seizures, themost recent 1 resulting in her falling to the floor and suffering a contusion on her forehead. Breakthrough seizures have been a life long problem for patient so it does not seem to phase her. Otherwise, her weight is much improved (currently weighs 176 pounds). The only other concerning thing on her review of systems is that it sounds like it is becoming difficult to swallow pills again. ? Review of Systems: 10-point review of systems is negative except as noted in the HPI. ?? Past Medical History: Epilepsy with refractory seizures and required surgery??for partial lobectomy, followed neurology at [facility]. Cervical dysplasia Obesity HLD Esophageal stricture, requiring dilation??x 2 in past at [facility], and again more recently in 2020.. Herpes zoster 2011 Anal fissures ? Etoh abuse, this is always been a concern but she denies recent use. Poor adherence with ART??chronically, largely to 2 esophageal motility disorder??and underlying depression. Severe, untreated??depression Active smoker ?? Past Surgical History:?? 2017??Craniotomy for seizures complicated by subdural hematoma Shira botox injections for headaches [place] x 3, last one at [facility] 2013 where she had polyps removed Epiglottis surgery x 3 Hemorrhoid banding 2014 Esophageal dilatation??[facility]??2019 and again in March 2020. [place] [facility]??March 2020 ?? Current Outpatient Medications: clonazePAM (KLONOPIN) 1 mg tablet Take 1 mg by mouth 2 times daily. dolutegravir 50 mg tablet Take 1 Tab by mouth 2 times daily. eslicarbazepine (APTIOM) 400 mg tablet Take 800 mg by mouth 2 times daily. hydrOXYzine (ATARAX) 25 mg tablet Take 25 mg by mouth 2 times daily. lacosamide (VIMPAT) 200 mg tablet Take 200 mg by mouth every 12 hours. lamiVUDine (EPIVIR) 10 mg/mL solution 15 ml ( 150 mg) twice daily meloxicam (MOBIC) 7.5 mg tablet Take 7.5 mg by mouth daily as needed for Pain. sulfamethoxazole-trimethoprim (BACTRIM,SEPTRA) 200-40 mg/5 mL suspension Take 10 mL by mouth daily. tenofovir alafenamide fumarate (VEMLIDY) 25 mg tablet Take 25 mg by mouth daily. ? No Known Allergies ?? Social History Tobacco:??1 pack/week Alcohol:??There have always been questions of alcohol use in the past, patient??continues to deny recent use Recreational drugs:none Herbal:none Professional:??Not working Relationships / Living Situation:??Living alone,??seems to have little to no local support. ??Yanely Quigley have recommended over the years that she would benefit from living in some type of group hometo improve her socialization and we reinforced this again today.. Sexual:??Not currently sexually active??none Exercise:??Limited Travel:??From [place],??went to college in [place],??then went to [place] and now in [place]. ??[place] on vacation. ?? Animal exposure:??no pets [...] file ? Family history: Pertinent for??Mom just 2018, was very healthy. ??Dads history unknown. ? The Family History was reviewed and is non-contributory for a past history of infection or immunocompromised state. ?? Physical Exam AAO x3, 176 lbs. Globally markedly improved in general appearance . ? February 2019??VL??3939 February 2019??CD4??63 at 6% ?? August 2019 VL 28,000 August 2019 CD4 51 ?? Feb 2020 VL 10,000 Feb 2020??CD4??27 ?? May 2020 viral load 1007 May 2020 CD4 178 ?? Assessment and Plan: ?? 1) HIV ?? - Currently on??Dolutegravir 50mg po BID,??liquid??3TC??150 mg twice daily,??25mg??TAF??daily,??was??doing very well??briefly??in 2018??on this new regimen??but she had??significant??difficulties over the next few years.?Her VL had??been??<??20 most recently in Oct 2017 with a slight??blip to 89 in Mar 2018 but then due to poor adherence with ART, her CD4 count got all the way down to 27 and her viral load up to 28,000 but this year, she seems back on track with improving numbers when they were collected in May 2020. 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 ??In reviewing old genotypes from [facility], she had always had wild- type in the past. ?? - ART: Dolutegravir 50mg po BID,??liquid??3TC??150 mg twice daily,??25mg??TAF??daily,-was off her ART briefly earlier in October due to pharmacy supply concerns. Patient is back on track. -Most recent CD4 count: 178 in May 2020 -Most recent HIV viral load 1007 in May 2020 - OI prophylaxis:??Keep up liquid bactrim. - Compliance:??Much better in the past 2-4 months or so as Brittanie has been doing frequent home visits - Sexual activity:??None - HBV/HCV: ??Hep C Ab neg 2014, hep B surface ab neg/hep B surface ag neg. ? - Dental exam: ?Patient was unhappy with prior dental care in the past??and has not seen a dentist in at least the past??2??years. Will see if [facility] can help coordinate with new dentist. - PCM??is??at [facility] -Repeat labs in about a month so that patient would have been back on her ART consistently for >4 weeks at that time. Would like to see in clinic in follow-up in the Dec-January timeframe to continue to monitor her adherence. ?? 2) Health maintenance - Cholesterol:??LDL 117 in Mar 2018 - Diabetes:??FSBS 95 in Mar 2018 - Colonoscopy:??2020 - Immunizations:Prevnar 13 in 2012, pneumovax 2009??and 2019. ??Flu 2019. ??Tdap in??2019.?Covid vaccine 2020. Brittanie will give her a flu shot next week. - Pap:??Last pap??May??2020, normal by report - Mammogram:In 2020, normal by report ?? 3) Seizures??that have been recalcitrant to medications and required a craniectomy-partial lobectomy at [facility]??that was complicated by a postop bleed??several years ago. ??She is??now back with her original neurologist from [facility]. It is discouraging to hear she continues to have breakthrough seizures. Patient states this is a lifelong problem and does not seem alarmed by it. She does not drive a car. We have asked her to keep in close touch with neurology from [facility]. ?? 4)??Depression,??always??her largest problem that has made all other clinical concerns difficult for her to manage. Seems improved recently. ?? 5)??PCM,??seen at??[facility]. ?? 6) Active smoking,??pt??not interested in quitting now. ?? 7)??Esophageal strictures much improved. She is up to 176 pounds at this time which is a huge improvement. Treated with esophageal dilatation several times in 2015 at [facility]??and dilated in January 2020 and again in March 2020. ?? Patient is finally able to consistently take pills which is ahuge improvement but she is starting to notice the stricture worsen again. We have asked her to please call [facility] GI today MARISELA to schedule follow-up appointment in case she needs to be redilatedas her ability to swallow her seizure/HIV medication is the most critical aspect of her health careat this time. Patient voiced understanding with plan. 8) Lives alone, has no friends or family locally and she continues to have seizures while home alone. She has no means of transportation. We have implored her multiple times to look for different housing (may be group housing etc.) but the patient is a very private person and is reluctant to move. We will keep trying with follow-up visits. ?? It has been a pleasure??talking to Ms. Pacheco over the phone today. ?? Antony Myers DO Pager [phone] ?? Currently employed:??No ?? Adherence counseling:??Yes ?? [...] HIV infection ([facility])- Primary Human immunodeficiency virus [HIV] disease documented in this encounter Care Teams Blind Aide Relationship Specialty Start Date End Date Sarah Alejo NP [address] [place] [address] PCP - General 09/20/18 documented as of this encounter
--- OUTSIDE RECORDS SUMMARY | 2023-12-04 16:38 | XMS_ITS | Encounter Summary ---
Author Organization [facility] Address [address] [place] [address] Care Team Providers Care Frog Catcher Name Role Phone Gina Alejokaylyn Cruz PATIENT ADMITTING REPRESENTATIVE Primary Care Provider [phone] Encounter Details Date Type Department Care Team (Late st Contact Info) Description 03/14/2020 Lab Requisition [facility] Pathology & Laboratory Medicine - [facility] [address] [place] [address] Outr Resulting Lab, Provider Social History Tobacco [...] Comments ZZCOVID-19 TEST [facility] PCR Today 03/13/2020 14:45 EST COVID-19 TESTING Routine 03/13/2020 14:4 5 EST documented in this encounter Results * COVID-19 TEST [facility] PCR (03/13/2020 14:45 EST) Swab ENTIRE NASOPHARYNX / Unknown 03/13/2020 14:45 EST 03/14/2020 21:53 EST Provider Outr Resulting Lab MICROBIOLOGY - GENERAL ORDERABLES [facility] [address] [place] [address] * COVID-19 TESTING (03/13/2020 14:45 EST) COVID-19 rt-PCR Result Negative Negative 03/16/2020 12:44 EST [facility] Comment: This test has [...] clinical observations, patient history, and epidemiological information. Testing was performed using the diamond SARS-CoV-2 assay ([employer] on the Diamond 6800 System Performing Lab Diamond [address] [facility] Lab 03/16/2020 12:44 EST [facility] Swab 03/13/2020 14:4 5 EST 03/14/2020 21:53 EST Provider Outr Resulting Lab MICROBIOLOGY - GENERAL ORDERABLES [facility] [address] [place] [address] documented in this encounter Visit Diagnoses Not on filedocumented in this encounter Care Teams Frog Catcher Relationship Specialty Start Date End Date Sarah Alejo NP [address] [place] [id number] PCP - General 09/20/18 documented as of this encounter
--- OUTSIDE RECORDS SUMMARY | 2023-12-04 16:38 | XMS_ITS | Encounter Summary ---
Author Organization [facility] Address [address] [place] [address] Care Team Providers Care Book Author Name Role Phone Sarah Alejo CLOTHING SORTER Primary Care Provider [phone] Encounter Details Date Type Department Care Team (Late st Contact Info) Description 05/27/2021 Specialty Pharmacy [facility] - [address] [place] [address] [place] [address] Licha Chua, [facility] Social History Tobacco Use Types Packs/Day [...] Sig Dispensed Refills Start Date End Date CYANOCOBALAMIN, VITAMIN B-12, ORAL Take by mouth. added in this encounter Care Teams Book Author Relationship Specialty Start Date End Date Sarah Alejo NP [address] [place] [id number] PCP - General 09/20/18 documented as of this encounter
--- OUTSIDE RECORDS SUMMARY | 2023-12-04 16:38 | XMS_ITS | Encounter Summary ---
Author Organization [facility] Address [address] [place] [address] Care Team Providers Care Shingle Cutter Name Role Phone Gina Alejokaylyn Cruz CARDIOLOGY NURSE PRACTITIONER Primary Care Provider [phone] Reason for Visit * Reason Onset Date Comments Discuss Possible Transfer 03/12/2020 Encounter Details Date Type Department Care Team (Late st Contact Info) Description 03/12/2020 Telephone [facility] [address] [place] [phone] Anat Magaña MD [address] [address] Discuss Possible Transfer Social History Tobacco Use Types Packs/Day Years [...] encounter Miscellaneous Notes * Telephone Encounter - Anat Magaña MD - 03/12/2020 1124 EST Hospitalist Patient Transfer Request Requesting Facility: [facility]) Requesting Provider: Dr. Curiel Date: 03/12/20 Time of Call: 11:25 History: 65 yo with HIV (being treated by Dr. Myers), seizure disorder, severe depression, esophageal stricture s/p dilation at [facility] 02/15, medication noncompliance who was admitted to hospital there 03/11/20 with several months history of nausea, vomiting, diarrhea. She has lost weight, unable to keep down POs, symptoms now worsening. Workup there reveals pancytopenia. WBC 1800, HGB 7.8, plt 103. Na 140 K 3.1 (up from 2.7), CL 106, CO2 26, BUN 6, Cr. 0.73 Case was discussed on telephone with their hospitalist and Dr. Myers. Dr. Myers notes she requires veras with hematology for bone marrow biopsy, also GI consult for need for ?repeat dilation -- note this was done by [facility] group last month. His overall sense is that her condition is likely to be very difficult to reverse given her HIV, severe seizure disorder with inability to take her sz and HIV meds, depression and failure to thrive. In the course of our conversation he states that he thinks she is most appropriate for Palliative care consult and move in comfort directed care direction. I brought up question of whether this needs to be worked up as inpatient-- both note that given hernoncompliance and lack of support, they do not feel she would be able to pursue workup as outpatient.. Together the 3 of us decided on the plan of palliative care consultation at their hospital with 's recommendation. If not able to make progress on GOC conversations, or she is not amenable to this approach, then hewould like us to transfer her here to pursue BMBx with heme consult, and GI workup. If not able to manage her symptoms he questions whether we may need to move in direction of PEG tube. PLAN Dr. Curiel will call back once palliative care and GOC conversations complete. Discussed that if she is transferred here for specialty services, likely will plan to move back to sending hospital once these are complete. He agrees with this plan. - Patient is not accepted to Adult Hospital Medicine service. Awaiting discussions with pall care and further supportive care at their hospital today. Anat Magaña MD Internal Medicine Hospitalist 03/12/2020 11:53 documented in this encounter Plan of Treatment Not on file documented as of this encounter Visit Diagnoses Not on filedocumented in this encounter Care Teams Shingle Cutter Relationship Specialty Start Date End Date Sarah Alejo NP [address] [place] [phone] PCP - General 09/20/18 documented as of this encounter
--- OUTSIDE RECORDS SUMMARY | 2023-12-04 16:38 | XMS_ITS | Encounter Summary ---
Author Organization [facility] Address [address] [place] [address] Care Team Providers Care Inhalation Therapy Teacher Name Role Phone MeloGinaSarah A TUBE WINDER HAND Primary Care Provider [phone] Encounter Details Date Type Department Care Team (Late st Contact Info) Description 11/13/2019 Lab Requisition [facility] Pathology & Laboratory Medicine - [facility] [address] [place] [address] Outr Resulting Lab, Provider Social History Tobacco [...] Associated Diagnosis Comments HIV 1 RNA QUANTITATION Today 0 14:55 EDT MISCELLANEOUS TEST, SAYRE Today 11/12/2019 14:55 EDT documented in this encounter Results * MISCELLANEOUS TEST, SAYRE (11/12/2019 14:55 EDT) Miscellaneous Test, [place] HIV-1 Integrase Genotype 12/04/2019 9:14 EDT [facility] Comment:See scanned/suppleme ntary report. Result 12/04/2019 9:14 EDT [facility] Comment:Specimen quantity no t sufficient for analysis. Blood VENOUS BLOOD / Unknown 11/12/2019 14:55 EDT 11/13/2019 16:59 EDT Provider Outr Resulting Lab CHEMISTRY & BLOOD GAS ORDERABLES Performing Organization Address City/[facility]/ZIP Co de Phone Number [facility] [address] [place] [address] * (ABNORMAL) HIV 1 RNA QUANTITATION (11/12/2019 14:55 EDT) HIV RNA Detection, Qual Detected( A) Undetected copies/mL 11/14/2019 15:22 EDT [facility] HIV 1 RNA Quant 18,437(H) Undetected copies/mL 11/14/2019 15:22 EDT [facility] Blood VENOUS BLOOD / Unknown 11/12/2019 14:55 EDT 11/13/2019 16:59 EDT Narrative [facility] - 11/14/2019 15:22 EDT The quantification range of this assay is 20 IU/mL to 10,000,000 IU/mL. ??Testing was performed on the ORLIN Ampliprep/ORLIN TaqMan HIV v2.0 ([employer] Provider Outr Resulting Lab CHEMISTRY & BLOOD GAS ORDERABLES [facility] [address] [place] [address] documented in this encounter Visit Diagnoses Not on filedocumented in this encounter Care Teams Inhalation Therapy Teacher Relationship Specialty Start Date End Date Sarah Alejo NP [address] [place] [phone] PCP - General 09/20/18 documented as of this encounter
--- OUTSIDE RECORDS SUMMARY | 2023-12-04 16:38 | XMS_ITS | Encounter Summary ---
Author Organization [facility] Address [address] [place] [address] Care Team Providers Care Ordnance Handler Name Role Phone Sarah Alejo JACK WINDER Primary Care Provider [phone] Reason for Visit * Reason Onset Date Comments Follow-up 07/18/2019 Encounter Details Date Type Department Care Team (Late st Contact Info) Description 07/18/2019 Telephone [facility] Infectious Disease - [address] [id number] Antony Myers, [address] [facility], [address] [place] [address] Follow-up Social History Tobacco Use Types Packs/Day Years Used Date Smoking Tobacco: Every Day Cigarettes Smokeless Tobacco: Never Alcohol Use Standard Drinks/Week Comments Yes 0 (1 standard drink = 0.6 oz pur e alcohol) 2 beers per week Sex and Gender Information Value Date Recorded Sex Assigned at Not on file Gender Identity Not on file Sexual Orientation Not on file documented as of this encounter Miscellaneous Notes * Telephone Encounter - Antony Myers DO - 07/18/2019 4593 EDT Case reviewed at length. Her VL has been difficult to control 2nd to inability to consistently takepill ART 2nd to esophageal strictures, depression, unwillingness to follow up with GI to address esophageal and drug-drug interactions with seizure meds. In reviewing options, IM ART options just are not available yet and wont be any time soon. Liquid options might include DRV/RTV, RAL BID and then FTC-TDF if she is willing to try. The only concern might be with drug drug interactions with DRV/RTV and seizure meds. We will try to clarify her full neurology list of meds and I will discuss case with her neurologist in [facility] and our pharmacyteam to see what options might be avail. documented in this encounter Plan of Treatment Not on file documented as of this encounter Visit Diagnoses Not on filedocumented in this encounter Care Teams Ordnance Handler Relationship Specialty Start Date End Date Sarah Alejo NP [address] [place] [id number] PCP - General 09/20/18 documented as of this encounter
--- OUTSIDE RECORDS SUMMARY | 2023-12-04 16:38 | XMS_ITS | Encounter Summary ---
Author Organization [facility] Address [address] [place] [address] Care Team Providers Care Pre Certification Specialist Name Role Phone Sarah Alejo OPEN HEARTH MELTER Primary Care Provider [phone] Encounter Details Date Type Department Care Team (Late st Contact Info) Description 06/22/2021 Specialty Pharmacy [facility] - [address] [place] [address] [place], [place] [id number] Licha Chua, [facility] Social History Tobacco Use Types [...] on filedocumented in this encounter Care Teams Pre Certification Specialist Relationship Specialty Start Date End Date Sarah Alejo NP [address] [place] [address] PCP - General 09/20/18 documented as of this encounter
--- OUTSIDE RECORDS SUMMARY | 2023-12-04 16:38 | XMS_ITS | Encounter Summary ---
Author Organization [facility] Address [address] [place] [address] Care Team Providers Care Electrical Engineering Intern Name Role Phone Melo Sarah A FORENSIC INVESTIGATOR Primary Care Provider [phone] Reason for Visit * Reason Onset Date Comments Follow-up 11/19/2019 Encounter Details Date Type Department Care Team (Late st Contact Info) Description 11/19/2019 Telephone [facility] Infectious Disease - [address] [id number] Antony Myers, [address] [facility], [address] [place] [address] Follow-up Social History Tobacco Use [...] Telephone Encounter - Antony Myers DO - 11/19/2019 6392 EDT We went through pretty significant lengths last week with both nursing staff at [place], nursing staff at [facility] and lab support services here as well as up there to see if we could get integrates inhibitor resistance testing and a tropism assay drawn when she went to the lab on 11 November. She clearly had an HIV viral load which was drawn but I cannot find documentation of the other 2 labtests. This is very frustrating considering how much coordination went into this process. I called patient, she seems more depressed today, she states the liquid antidepressant she was given by her primary care provider does not seem to be working. Brittanie was able to visit her home about aweek ago to give her a flu shot. Patient is [facility] and corrected an esophageal stricture in the 2015 timeframe. At this point, patient appears to be only taking liquids due to her esophageal symptoms. She does admit that I know I have to get this taken care of Initial plan was for her primary in [facility] to reconnect her with gastroenterology to get herevaluation moving. I have left a message with the nurse voicemail at the [facility] GI clinic introducing myself and asked for a call back to see if we could help arrange a consult. Getting sophisticated HIV labs drawn locally for her is always been a significant challenge just due to logistics, (lack of transportation, complexity of lab ordering system in a hospital [facility] We might be stuck just getting whatever liquid formulations we can collect that may work and get her off the pills. The last hanging up might be her ability to grind up some of her medications and mix with water (not sure if she has the best dexterity). Will let her know when GI calls me back. The patient sees her primary care clinic on 04 December in follow-up. documented in this encounter Plan of Treatment Not on file documented as of this encounter Visit Diagnoses Not on filedocumented in this encounter Care Teams Electrical Engineering Intern Relationship Specialty Start Date End Date Sarah Alejo NP [address] [place] [id number] PCP - General 09/20/18 documented as of this encounter
--- OUTSIDE RECORDS SUMMARY | 2023-12-04 16:38 | XMS_ITS | Encounter Summary ---
Author Organization [facility] Address [address] [place] [address] Care Team Providers Care Naphthalene Still Operator Name Role Phone Sarah Alejo AUTOMOTIVE PARTS SALESPERSON Primary Care Provider [phone] Reason for Visit * Reason Comments Follow-up Encounter Details Date Type Department Care Team (Late st Contact Info) Description 01/25/2021 12:00 EST Telemedicine [facility] Infectious Disease - [address] [phone] Antony Myers, DO [address] [facility], [address] [place] [address] AIDS (acquired immune deficiency syndrome) [...] Progress Notes * Antony Myers DO - 01/25/2021 1200 EST Images from the original note were not included. I spent a total of 60 minutes on the date of this encounter meeting with the patient and reviewing documentation/coordinating care as described in the above note. No procedures were performed at the time of the visit. Division of Infectious Disease Follow up/Progress Note 01/19/21 11:51 TELEMEDICINE VIDEO VISIT Today's visit was provided through telemedicine video conferencing: The location of the patient : [facility] The location of the provider: Office The [...] care. HPI:??Ms.??Pacheco??is a 65y.o.??female??with history significant for HIV/AIDS diagnosed 1990, recalcitrant seizure disorder, severe untreated depression??and esophageal dysmotility??who presents with routine HIV??follow up. ??We are trying to see her frequently to continue to work on the challengeof her adherence with her ART in the setting of her depression and eso phageal dysmotility. ??Labs in 10 June were encouraging for the first time in a long time with, CD4 178 at 8% and viral load 1007??after excellent adherence. Unfortunately, labs Dec 2020 show CD4 71 at 6% and VL back up to 56,400. Pt on Dolutegravir 50mg BID,??liquid??3TC??150mg BID??and??TAF 25 mg daily;??a regimen that was slected for the small size of tablets and availability of liquid formulation due to difficulty in swallowing in past.?Dolutegravir is BID as her seizure medications may lower levels. ?She is also on bactrim suspension for PJP prophy Patient initially communicated with us that she was without ART for about 14 days in both June 2020 and Oct 2020 due to communication break down with local pharmacy. However, on further questioning today, it sounds like she is perpetually missing about 7 days a month of her ART as she just cannot seem to coordinate a consistent supply with the Functional Neuromodulations that she can walk to. Patient is tangentialand always has difficulty with details but it sounds like the pharmacy has limited supply, will only allow 30 days at a time, and needs about a 2-week heads up about getting the next month supply of medications. As is the usual pattern, pt has a difficult time advocating for herself whenever there are logistical problems with resupply. ?? As background: ?? In the 2016 timeframe, patient transferred her care from [facility] ID clinic to the [facility]. ??A lengthy review of ID notes from [facility] indicate that patient would frequently have viremia, [...] to her ART was swallowing difficulties.?She is finallyplugged back into GI at [facility] again which has been incredibly helpful as they have dilated her esophagus several times. At this point in time, patient states she has no problem swallowing any of her me dications. ?? After her brief admission to??[facility]??back in February 2020??for diarrhea and dehydration??she??transferred to a local SNF??but unfortunately,??she signed out AMA and arrived back home with limited food, no support etc. Primary care provider worked hard to assure she had good support, visiting nurses,and evaluation by palliative care etc. which was helpful. Pt no longer getting home visits, she does not see her primary care provider routinely. She elected to stop seeing her neurologist in and returned to neurology at [facility] in 2020. Most recent visit in Nov [...] for groceries etc. and most interactions with [facility] recently have been home visits that Brittanie makes. Review of Systems: 10-point review of systems is negative except as noted in the HPI. ?? Past Medical History: Epilepsy with refractory seizures and required surgery??for partial temporal lobectomy, followed neurology at [facility]. Cervical dysplasia Obesity HLD Esophageal stricture, requiring dilation??x 2 in past at [facility], and again more recently in 2020.. Herpes zoster 2011 Anal fissures ? Etoh abuse, this is always been a concern based on prior notes but she denies recent use. Poor adherence with ART??chronically, largely to 2 esophageal motility disorder??and underlying depression. Severe, untreated??depression Active smoker ? Past Surgical History:?? 2017??Craniotomy for seizures complicated by subdural hematoma Shira botox injections for headaches [place] x 4, last one at [facility] 2020 Epiglottis surgery x 3 Hemorrhoid banding 2014 Esophageal dilatation??[facility]??2019 and again in March 2020 Current Outpatient Medications: Updated Dec 2020 ?? No Known Allergies ?? Social History Tobacco:??1 pack/week Alcohol:??There have always been questions of alcohol use in the past in her record, patient??continues to deny recent use Recreational drugs:none Herbal:none Professional:??Not working Relationships / Living Situation:??Living alone,??essentially no local support. Son is estranged. ??Brittanie and I have recommended over the years that she would benefit from living in some type of fdc to improve her socialization but she always declines. Patient does admit that she feels safe in her current apartment. Sexual:??Not currently sexually active Exercise:??Limited Travel:??From [place],??went to college in [place],??then went to [place] and now in [place]. ??[place] on vacation. [...] state. ?? Physical Exam AAO x3,??181 lbs (self reported). Globally markedly improved in general appearance compared to 2019. . ? February 2019??VL??3939 February 2019??CD4??63 at 6% ?? August 2019 VL 28,000 August 2019 CD4 51 ?? Feb 2020 VL 10,000 Feb 2020??CD4??27 ?? May 2020 viral load 1007 May 2020 CD4 178 Dec 2020 VL 56,400 Dec 2020 CD4 71 ?? Assessment and Plan: ?? 1) HIV ?? - Currently on??Dolutegravir 50mg po BID,??liquid??3TC??150 mg twice daily,??25mg??TAF??daily,??was??doing very well??briefly??in 2018??on this new regimen??but she??had??significant??difficulties??over the next few years.?With her esophageal dilations, she showed a brief improvement in her viral load and CD4 count in May 2020 but it looks like she is back sliding again. 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 ??In reviewing old genotypes from [facility], she had always had wild- type in the past. ?? - ART: Dolutegravir 50mg po BID,??liquid??3TC??150 mg twice daily,??25mg??TAF??daily,-was off her ART what sounds like about 7 days a month for the past several months. -Most recent CD4 count Dec 2020 71 -Most recent HIV VL Dec 2020 56,400 - OI prophylaxis:??Keep up liquid bactrim. - Compliance:??Admits to missing about a week of HIV medication per month - Sexual activity:??None - HBV/HCV: ??Hep C Ab neg 2014, hep B surface ab neg/hep B surface ag neg. ? - Dental exam: ?Patient was unhappy with prior dental care in the past??and has not seen a dentist in at least the past??several??years. - PCM??is??at [facility], not recently however. - Plan will be to stay with current ART as we get genotype and integrase resistance testing. Greatly appreciate pharmacy assistance in turning her dolutegravir/lamivudine/TAF to the mail order systemso that there is no more perpetual confusion with the pharmacy/patient at [facility]. We will also change her lamivudine from liquid to tablet (will continue 150 mg p.o. twice daily) to avoid any confusion in the patient measuring the liquid/dosing herself. After a month on this mail order supply regimen and reviewing the genotype/integrase inhibitor resistance testing, will consider potential move to a new regimen. ?? 2) Health maintenance - Cholesterol:??LDL 117 in Mar 2018 - Diabetes:??FSBS 95 in Mar 2018 - Colonoscopy:??2020 - Immunizations:Prevnar 13 in 2012, pneumovax 2009??and 2019. ??Tdap in??2019.?Covid vaccine 2020 #3 UTD. Flu Dec 2020 - Pap:??Last pap??May??2020, normal by report - Mammogram:In 2020, normal by report ?? 3) Seizures??that have been recalcitrant to medications and required a craniectomy-partial lobectomy at [facility]??that was complicated by a postop bleed??several years ago. ??She is??now back with her original neurologist from [facility]. It is discouraging to hear she continues to have breakthrough seizures. Neurology plan for now is to stay the course. Patient states this is a lifelong problem and does not seem alarmed by it. She does not drive a car. Follow up with neurology in [facility] March 2021 ?? 4)??Depression,??always??her largest problem that has made all other clinical concerns difficult for her to manage. Seems improved and admits that she is much less angry more recently about life circumstances than in the past. ?? 5)??PCM,??seen at??[facility]. ?? 6) Active smoking,??pt??not interested in quitting now. ?? 7)??Esophageal strictures have been a massive hindrance to good adherence with Sz/HIV meds in past.Treated with esophageal dilatation several times in 2015 at [facility]??and after a long hiatus of being lost to follow-up, she was dilated in January 2020 and again in March 2020 where were incredibly helpful. As of December 2020, patient states that she has no difficulty in swallowing and her w eight is up about 5 pounds compared to her last visit. ?? 8) Very limited, essentially none, social support. All interactions with HIV clinic are in person visits when Brittanie drives to her apartment. Patient declines opportunities to live in a fdc type setting. ?? Antony Myers DO Pager [phone] ?? Currently employed:??No ?? Adherence counseling:??Yes ?? [...] Diagnoses Diagnosis AIDS (acquired immune deficiency syndrome) ([facility])- Primary Human immunodeficiency virus [HIV] disease documented in this encounter Care Teams Naphthalene Still Operator Relationship Specialty Start Date End Date Sarah Alejo NP [address] [place] [address] PCP - General 09/20/18 documented as of this encounter
--- OUTSIDE RECORDS SUMMARY | 2023-12-04 16:38 | XMS_ITS | Encounter Summary ---
Author Organization [facility] Address [address] [place] [address] Care Team Providers Care Product Development Assistant Name Role Phone Sarah Alejo GREIGE GOODS INSPECTOR Primary Care Provider [phone] Reason for Visit * Reason Onset Date Comments Medications Refill 08/18/2021 Medications Refill 08/19/2021 Medications Refill 08/20/2021 Encounter Details Date Type Department Care Team (Late st Contact Info) Description 08/18/2021 Refill [facility] Infectious Disease - [facility] [address] [place], [place] [address] Antony Myers, DO [address] [facility], [address] [place] [address] Medications Refill; Medications Refill; Medications Refill Social History Tobacco Use Types [...] as of this encounter Progress Notes * Saba Thakkar - 08/19/2021 0959 EDT Covering for Licha Brown - refill request for Lamivudine pended to [facility] ID clinic. Tom and Rahel have 2 refills left at this time per [facility] Specialty Pharmacy patient special needs child caregiver ADDEN: Patient is seen in [facility] - will have Specialty Pharmacy request refill via [employer] pharmacy software. Saba Thakkar, PharmD, BCACP Pharmacist Clinician - Gastroenterology/Hepatology [phone] 08/19/2021 documented in this encounter Miscellaneous Notes * Telephone Encounter - Debra Gillette - 08/18/2021 1632 EDT Medication Request Medication: Lamivudine 150mg tab Medication refill: yes Medication dose change: no Refill due: 08/18/21 Date of last fill: 07/22/21 Pharmacy: [facility] Next appt: Visit date not found documented in this encounter Plan of Treatment Not on file documented as of this encounter Visit Diagnoses Not on filedocumented in this encounter Care Teams Product Development Assistant Relationship Specialty Start Date End Date Sarah Alejo, [address] [place] [address] PCP - General 09/20/18 documented as of this encounter
--- OUTSIDE RECORDS SUMMARY | 2023-12-04 16:38 | XMS_ITS | Encounter Summary ---
Author Organization [facility] Address [address] [place] [address] Care Team Providers Care Fence Erector Supervisor Name Role Phone Sarah Alejo BACK TACKER Primary Care Provider Reason for Visit * Reason Onset Date Comments Follow-up 03/25/2020 Encounter Details Date Type Department Care Team (Late Contact Info) Description 03/25/2020 Telephone [facility] Infectious Disease - [address] [phone] Antony Myers DO [address] [facility], [address] [place] [address] Follow-up Social History Tobacco Use [...] Telephone Encounter - Antony Myers DO - 03/25/2020 0917 EST Case discussed with precision lens polisher from [facility] about 2 weeks ago as well as hospitalist at [facility] about a week and a half ago when she was admitted for nausea and vomiting and electrolyte abnormalities it looked like patient may need transfer to higher levels of care. Course appears to have stabilized at [facility] and patient was sent to rehab center locally with eventual plans to transfer to [facility] presumably to address her ongoing problems of esophageal strictures but patient signed out [facility] in [facility] late last week. Per reports, when she returned home, her living situation was complicated as she had no food, needed help with ADLs etc. Per third-republican report, her primarycare provider was working with a telephonic case manager locally who is doing home visits now to assess for safety. Brittanie will try to do the same at some point this week. Unfortunately, patient continues to show that she is not ready to engage consistently in care. Overthe past 6 months alone, she is no showed for our appointments via Zoom in November and would not answer my phone call attempts in January/early February. In February 2020, her CD4 count is down to 27 and her viral load is stable in the 10,000 range. She has been prescribed Dolutegravir 50mg BID,??liquid??3TC??150mg BID??and??25 mg??TAF??daily but due to esophageal strictures, she is not taking anythem with consistency which worries me as well about her inability to take anti-seizure medications. Cabotegravir and Rilpivirine are both now available IM but prior studies used these medications only after patient had become nondetectable with p.o. regimens. Based on patient's inability to engage consistently with care, it is highly unlikely we're ever gone to get her undetectable in hopes of eventually transferring her to IM based regimens. As always, I am reluctant to move forward with changing her to liquid regimens as again, patient cannot consistently take her medications, inform us about changes in her status or engage in care. Of note, even when she was given a liquid SSRI back in the fall, she discontinued that as well. We will try to put her on the schedule in early March/April for a phone call if she is willing to at least talk with us. GALEN Myers staff documented in this encounter Plan of Treatment Not on file documented as of this encounter Visit Diagnoses Not on filedocumented in this encounter Care Teams Fence Erector Supervisor Relationship Specialty Start Date End Date Sarah Alejo NP [address] [place] [address] PCP - General 09/20/18 documented as of this encounter
--- OUTSIDE RECORDS SUMMARY | 2023-12-04 16:38 | XMS_ITS | Encounter Summary ---
Author Organization [facility] Address [address] [place] [address] Care Team Providers Care Glycerin Operator Name Role Phone Sarah Alejo CORPORATE TRAVEL COUNSELOR Primary Care Provider [phone] Reason for Visit * Reason Onset Date Comments Follow-up 10/22/2019 Encounter Details Date Type Department Care Team (Late st Contact Info) Description 10/22/2019 Telephone [facility] Infectious Disease - [facility] [address] [place] [address] [place] [address] Follow-up Social History Tobacco Use Types Packs/Day [...] encounter Miscellaneous Notes * Telephone Encounter - Suri Cabello RD - 10/22/2019 0947 EDT LM for Josiane zhao/VELASQUEZ # - Dr Myers requested consult for sig wt loss documented in this encounter Plan of Treatment Not on file documented as of this encounter Visit Diagnoses Not on filedocumented in this encounter Care Teams Glycerin Operator Relationship Specialty Start Date End Date Sarah Alejo NP [address] [place] [address] PCP - General 09/20/18 documented as of this encounter
--- OUTSIDE RECORDS SUMMARY | 2023-12-04 16:38 | XMS_ITS | Encounter Summary ---
Author Organization [facility] Address [address] [place] [address] Care Team Providers Care Owner Consulting Engineer Name Role Phone Sarah Alejo ACADEMY DIRECTOR Primary Care Provider [phone] Reason for Visit * Reason Comments Follow-up Encounter Details Date Type Department Care Team (Late st Contact Info) Description 07/06/2020 12:00 EDT Telemedicine [facility] Infectious Disease - [address] [id number] Antony Myers, [address] [facility], [address] [place] [address] AIDS (acquired immune deficiency syndrome) ([facility]) (Primary Dx) Social History Tobacco Use Types [...] Progress Notes * Antony Myers DO - 07/06/2020 1200 EDT Images from the original note were not included. I spent a total of 30 minutes on the date of this encounter meeting with the patient and reviewing documentation/coordinating care as described in the above note. This was separate from any procedures performed at the time of the visit. Division of Infectious Disease Follow up/Progress Note 07/06/20 14:41 TELEMEDICINE VIDEO VISIT Today's visit was provided [...] medical or mental health care. HPI:??Ms.??Pacheco??is a 64y.o.??female??with history significant for HIV/AIDS, recalcitrant seizure disorder, severe depression??and esophageal dysmotility??who presents with routine HIV??follow up.?Her last visit was in?July??2019 via phone call. ??We are [facility] to [facility] her [facility] to [facility] to work on the challenge of her adherence with her ART in the setting of her depression and eso phageal dysmotility. ??Labs in Feb 2020 show CD4 27 at 6% , VL 10,069 but when repeated on 10 June, CD4 178 at 8% and viral load 1007 after excellent adherence for the past few months. ?? HIV diagnosed in 1990??and most of her care for HIV occurred down in [facility] until about 3 years ago. ?? Pt on Dolutegravir 50mg BID,??liquid??3TC??150mg BID??and??25 mg??TAF??daily,??a regimen that was slected for the small size of tablets of availability of liquid formulation due to difficulty in swallowing in past.?Dolutegravir is BID as her seizure medications may lower levels. ?She is also on bactrim suspension for PCP prophy??but unfortunately, due to ongoing waxing and waning of adherence problems, she had been off her Bactrim and ART sounds like over the past 2 weeks at least. ?? Pt cared for at both [facility] and [facility] in past with difficulties in adherence. ??A lengthy review of ID notes from [facility] indicate that patient would frequently have viremia, genotypes always showed wild-type virus so it was presumed she just wasn't taking her meds. ??After years in [facility] system, she returned to [facility] HIV clinic in 2017. ?? Her main difficulty for years in adhering to her ART was swallowing difficulties. ??She is seeing GI at [facility] again which has been helpful. ??She continues to be incredibly nonspecific and tangential when we try to clarify exactly how much of her ART she is actually able to keep down She has re-engaged with GI at [facility] and some time in late 2019, and again per her report in early Mar 2020, she had EGD with balloon dilatation of her esophagus again and colo as well. Next follow-up is in a few months. ?? She had break through seizures in April was found to be confused by several visiting providers but seems more clear recently. Local neurologist is aware of most recent seizures and we suspect is fromher poor adherence with her antiseizure medication. Patient states she will be transferring her neurology care back to [facility] next month. ?? We have been thinking hard about better ART regimens for the patient that would be completely liquid??and ideally get her undetectable again. ??Case discussed at length with [facility] pharmacist??in the past??spring and we were??considering liquid darunavir, ritonavir, raltegravir, and emtricitabine-tenofovir but unfortunately??these would have drug drug interactions with her seizure medications,??mostspecifically??Eslicarbizepine.?Case discussed with her neurologist who stated she could considerchanging her antiseizure medications if this made treating her HIV more feasible. ??However, when discussing case with patient??in the spring 2019, she refused to change any of her seizure medications. ?? After her brief admission to [facility] back in February 2020 for diarrhea and dehydration she transferredto a local SNF but unfortunately, she signed out AMA and arrived back home with limited food etc. She was able to get multiple secondary social studies teacher from her primary care provider [facility] she seem to be improving as she was getting frequent visiting nurses/home physical therapy etc. Unfortunately, she continues to struggle with adherence with her seizure medications and ART in the April timeframe but in the last 6-8 weeks, she has made remarkable improvements. ?? Today, she seems remarkably different compared to past encounters. Brittanie has been making home visits to assure her adherence the patient states her esophageal dilatations by [facility] have made a remarkable improvement in her ability to consistently take her medications. She seems markedly less depressed than she usually is and she recognizes what a good spot that she is currently in. Review of Systems: 10-point review of systems is negative except as noted in the HPI. ?? Past Medical History: Epilepsy with refractory seizures and required surgery??for partial lobectomy, followed by [facility]??inpast, now by neurology at [facility] Cervical dysplasia Obesity HLD Esophageal stricture, requiring dilation??x 2 in past at [facility] which pt describes as a negative experience Herpes zoster 2011 Anal fissures ? Etoh abuse Poor adherence with ART??chronically, largely to 2 esophageal motility disorder??and underlying depression. Severe, untreated depression Active smoker ?? Past Surgical History:?? 2017??Craniotomy for seizures complicated by subdural hematoma Shira botox injections for headaches [place] x 3, last one at [facility] 2013 where she had polyps removed Epiglottis surgery x 3 Hemorrhoid banding 2014 Esophageal dilatation [facility] 2019 and again in March 2020. [place] [facility] March 2020 ?? Current Outpatient Medications: clonazePAM (KLONOPIN) [...] questions of alcohol use in the past, patient continues to deny recent use Recreational drugs:none Herbal:none Professional:??Not working Relationships / Living Situation:??Living alone,??seems to have little to no local support. ??Son is pastry chef in [place]??but she has zero contact with him. No other living relatives. She does have local friends that enjoyed bird watching with her. Sexual:??Not currently sexually active none Exercise: Limited this winter Travel:??From [place],??went to college in [place],??then went to [place] and now in [place]. ??[place] on vacation. ?? Animal exposure:??no pets [...] immunocompromised state. ?? Physical Exam AAO x3, much less monotone and her affect was no longer so flat. 112/70, weight 147#. ? February 2019??VL??3939 February 2019??CD4??63 at 6% ?? August 2019 VL 28,000 August 2019 CD4 51 ?? Feb 2020 VL 10,000 Feb 2020 CD4 23 June 2020 viral load 1007 May 2020 CD4 178 ?? Assessment and Plan: ?? 1) HIV ?? - Currently on??Dolutegravir 50mg po BID,??liquid??3TC??150 mg twice daily,??25mg??TAF??daily,??was??doing very well??briefly??in 2018??on this new regimen??but she had??significant??difficulties over the next few years.?Her VL had??been??<??20 in??Jul 2017 and Oct 2017 with a slight??blip to 89 in Mar 2018.??Since then, her CD4 was falling steadily and VL steady in the 10,000 range until she had a great turnaround in May 2020 due to finally getting her esophageal strictures addressed in her depression making a remarkable improvement. ?? 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 ??In reviewing old genotypes from [facility], she had always had wild- type in the past. ?? The patient's case raises the question about whether she would benefit from intramuscular, long acting cabotegravir/rilpivirine but we could never get her viral load to be undetectable. Fortunately for now, she is actually able to take her liquid medication/pills without problems. She is also remarkably more open and with much better insight of her depression which is very encouraging to see. - OI prophylaxis:??Keep up liquid bactrim. - Compliance:??Much better in the past 2 months or so as Brittanie has been doing frequent home visits - Sexual activity:??None - HBV/HCV: ??Hep C Ab neg 2014, hep B surface ab neg/hep B surface ag neg. ? - Dental exam: ?Patient was unhappy with prior dental care in the past??and has not seen a dentist in at least the past 2 years. - PCM??is??at [facility] - Follow up with us in July after the next blood draw. ?? 2) Health maintenance - Cholesterol:??LDL 117 in Mar 2018 - Diabetes:??FSBS 95 in Mar 2018 - Colonoscopy:??2020 - Immunizations:Prevnar 13 in 2012, pneumovax 2009??and 2019. ??Flu 2019. ??Tdap in??2019.?She is non hep B immune so may benefit from the new hep B vaccine in the future??when it becomes avail.?Covid vaccine 2020 - Pap:??Last pap??May??2018, normal by report - Mammogram:In 2018, normal by report ?? 3) Seizures??that have been recalcitrant to medications and required a craniectomy-partial lobectomy at [facility]??that was complicated by a postop bleed??several years ago. ??She is??followed by neurology in??. She had more breakthrough seizures the spring which seem to be related to her nothaving a good supply of her antiseizure medications at home. Patient states she will be transferring her neurology care back to [facility] and has an appointment set up next month. ?? 4)??Depression,??always her largest problem. This is remarkably improved since her past few visits.Patient has excellent insight and almost seems like a different person during this evaluation whichis so encouraging to see? 5)??PCM,??seen at??[facility]. ?? 6) Active smoking,??pt??not interested in quitting now. ?? 7) Esophageal strictures. ??In reviewing records, she has been treated with esophageal dilatation several times in [address] [facility] and is now reengaged with her services and reports she has been dilated in January 2020 and again in March 2020. Patient is finally able to consistently take pills. Patient has follow-up scheduled with [facility]. ?? It has been a pleasure??talking to Ms. Pacheco over the phone today. ?? Antony Myers DO Pager [phone] ?? Currently employed:??No ?? Adherence counseling:??Yes ?? [...] Diagnoses Diagnosis AIDS (acquired immune deficiency syndrome) ([facility] Primary Human immunodeficiency virus [HIV] disease documented in this encounter Care Teams Owner Consulting Engineer Relationship Specialty Start Date End Date Sarah Alejo NP [address] [place] [id number] PCP - General 09/20/18 documented as of this encounter
--- OUTSIDE RECORDS SUMMARY | 2023-12-04 16:38 | XMS_ITS | Encounter Summary ---
Author Organization [facility] Address [address] [place] [address] Care Team Providers Care Learning And Development Director Name Role Phone Sarah Alejo MANAGER SITE Primary Care Provider [phone] Encounter Details Date Type Department Care Team (Late st Contact Info) Description 03/01/2021 Specialty Pharmacy [facility] - [address] [place] [address] [place], [place] [phone] Licha Chua, [facility] Social History Tobacco Use Types Packs/Day [...] on filedocumented in this encounter Care Teams Learning And Development Director Relationship Specialty Start Date End Date Sarah Alejo NP [address] [place] [address] PCP - General 09/20/18 documented as of this encounter
--- OUTSIDE RECORDS SUMMARY | 2023-12-04 16:38 | XMS_ITS | Encounter Summary ---
Author Organization [facility] Address [address] [place] [address] Care Team Providers Care Tar Leveler Name Role Phone Sarah Alejo MACHINE SHOP WORKER Primary Care Provider [phone] Reason for Visit * Reason Comments HIV Positive/AIDS Encounter Details Date Type Department Care Team (Late st Contact Info) Description 01/27/2021 Specialty Pharmacy [facility] Ambulatory [facility] - Main [place] [address] [place] [address] Licha Chua RPH Social History Tobacco Use Types Packs/Day [...] of this encounter Progress Notes * Licha Chua RPH - 01/27/2021 1608 EST [facility] Infectious Disease Clinic Josiane Pacheco is a 65 y.o. female presenting for [facility] Specialty Pharmacy services to fill lamivudine, tenofovir alafenamide, and dolutegravir for treatment of HIV. Provider: Dr. Antony Myers Regimen: dolutegravir 50mg BID, lamivudine 150mg BID, TAF 25mg daily Treatment History: darunavir, atazanavir, abacavir-lamivudine Labs: 12/28/20 Laboratory Test Result / Comments CD4 count 71 cells/uL HIV VL 56,400 copies/mL Resistance testing M184V (see note from 01/25/21) Current Outpatient Medications Medication ??? clonazePAM (KLONOPIN) 1 mg tablet ??? dolutegravir 50 mg tablet ??? hydrOXYzine (ATARAX) 10 mg/5 mL syrup ??? lacosamide (VIMPAT) 10 mg/mL oral solution ??? lamiVUDine (EPIVIR) 150 mg tablet ??? Multivitamins with Iron tablet ??? sulfamethoxazole-trimethoprim (BACTRIM) 200-40 mg/5 mL suspension ??? sulfamethoxazole-trimethoprim (BACTRIM) 200-40 mg/5 mL suspension ??? tenofovir alafenamide fumarate (VEMLIDY) 25 mg tablet No current facility-administered medications for this visit. Renal Function Assessment: (03/13/20) CrCl: 95 ml/min Assessment: Female of childbearing potential: N Coinfection/Vaccination Assessment: Date Result HAV --- HBV Surface ab neg, surface ag neg HCV 2015 Ab neg Influenza 12/2020 vaccinated Pneumococcal PCV13 2012; PPSV23 2009 & 2018 Tdap 2019 COVID 3 doses in 2020 Notes: Patient has had difficulty filling her HIV medications reliably at [facility]. We are going to utilize [facility] to deliver to her door. She is very thankful forthis opportunity, but understands that this is only for her HIV medications. She will continue to get her other medications from [facility]. I decided this is likely the best option since she is in [facility] and I worry that the mail order service at [facility] would be an issue for her. She will receive her first delivery from us on 02/05/21. Patient verbalized understanding to all of my instruction regarding [facility] to schedule refills or answering our calls, and that she will now take lamivudine as a 150mg tablet twice daily, stopping the liquid. Licha Brown, PharmD Ambulatory Pharmacist Clinician [facility] Specialty Pharmacy 02/03/2021 documented in this encounter Plan of Treatment Not on file documented as of this encounter Visit Diagnoses Not on filedocumented in this encounter Discontinued Medications Medication Sig Discontinue Reason Start Date End Da te eslicarbazepine (APTIOM) 400 mg tablet Take 800 mg by mouth 2 times daily. Alternate therapy 02/03/2021 hydrOXYzine (ATARAX) 25 mg tablet Take 25 mg by mouth 2 times daily. Dose adjustment 02/03/2021 meloxicam (MOBIC) 7.5 mg tablet Take 7.5 mg by mouth daily as needed for Pain. Therapy completed 02/03/2021 lacosamide (VIMPAT) 200 mg tablet Take 200 mg by mouth every 12 hours. Dose adjustment 02/03/2021 documented as of this encounter Historical Medications * This list may reflect changes made after this encounter. Medication Sig Dispensed Refills Start Date End Date Multivitamins with Iron tablet Take 1 Tablet by mouth daily. 01/20/2020 hydrOXYzine (ATARAX) 10 mg/5 mL syrup Take 25 mg by mouth 3 times daily. PRN Anxiety lacosamide (VIMPAT) 10 mg/mL oral solution Take 150 mg by mouth 2 times daily. added in this encounter Care Teams Tar Leveler Relationship Specialty Start Date End Date Sarah Alejo NP [address] [place] [address] PCP - General 09/20/18 documented as of this encounter
--- OUTSIDE RECORDS SUMMARY | 2023-12-04 16:38 | XMS_ITS | Encounter Summary ---
Author Organization [facility] Address [address] [place] [address] Care Team Providers Care Forming Fixer Name Role Phone Gina Alejoyce Nancy NATURAL SCIENCE MANAGER Primary Care Provider [phone] Reason for Visit * Reason Onset Date Comments Labs Only 11/08/2019 Encounter Details Date Type Department Care Team (Late st Contact Info) Description 11/08/2019 Telephone [facility] Infectious Disease - [facility] [address] [place], [place] [id number] Ben Ruiz, RN Labs Only Social History Tobacco Use Types Packs/Day [...] encounter Miscellaneous Notes * Telephone Encounter - Ben Ruiz, RN - 11/08/[address] Myers called and spoke with Fouzia at [facility] lab asking if theyare able to draw the miscellaneous tests Dr. Myers ordered to be sent to [place]: 1. trofile Co-receptor tropism assay and 2. HIV-Integrase Genotyping (as well as 3. HIV quant with reflex to genotype). Per Fouzia at the lab, they are able to draw these labs to be sent to [facility]. Faxed orders to [facility] lab. Dr. Myers notified. BEN RUIZ, RN documented in this encounter Plan of Treatment Not on file documented as of this encounter Visit Diagnoses Not on filedocumented in this encounter Care Teams Forming Fixer Relationship Specialty Start Date End Date Sarah Alejo NP [address] [place] [address] PCP - General 09/20/18 documented as of this encounter
--- OUTSIDE RECORDS SUMMARY | 2023-12-04 16:38 | XMS_ITS | Encounter Summary ---
Author Organization [facility] Address [address] [place] [address] Care Team Providers Care Nut Roaster Name Role Phone Sarah Alejo GYROSCOPIC ENGINEERING TECHNICIAN Primary Care Provider [phone] Reason for Visit * Reason Onset Date Comments Follow-up 11/21/2019 Encounter Details Date Type Department Care Team (Late st Contact Info) Description 11/21/2019 Telephone [facility] Infectious Disease - [address] [phone] Antony Myers, [address] [facility], [address] [place] [address] Follow-up Social History Tobacco Use [...] Telephone Encounter - Antony Myers DO - 11/21/2019 1322 EDT Case discussed extensively with HIV team over the past week. We are working to get her connected with GI at [facility] but I suspect with back logs, it will be a significant amount of time before we are able to address her esophageal stricture. Patient confirmed with me that she is willing to take liquid medications. In looking at our options, and knowing we need to avoid protease inhibitors, one combination could be etravirine, continued dolutegravir and Truvada. All can be ground up and mixed with water. In doing a drug drug interaction check, it does not look like there is major problems with her seizure medications with these HIV medications. The patient confirmed that she is willing to grind up these medications and used to own a motor and pestle that she used for spices so she knows how to use 1. She will walk to [employer] to buy a new one. Our pharmacy will enter prior authorization paperwork for these medications if they are needed. Finally, I have asked the patient to please notify both us and her primary care provider when she finds out about her GI appointment in [facility] as we will have to have the primary care provider help with the logistics involved in getting a Medicaid ride. documented in this encounter Plan of Treatment Not on file documented as of this encounter Visit Diagnoses Not on filedocumented in this encounter Care Teams Nut Roaster Relationship Specialty Start Date End Date Sarah Alejo NP [address] [place] [id number] PCP - General 09/20/18 documented as of this encounter
--- OUTSIDE RECORDS SUMMARY | 2023-12-04 16:38 | XMS_ITS | Encounter Summary ---
Author Organization [facility] Address [address] [place] [address] Care Team Providers Care Market Intelligence Consultant Name Role Phone Sarah Alejo ADMINISTRATION ASSISTANT Primary Care Provider [phone] Reason for Visit * Reason Onset Date Comments Follow-up 04/30/2020 Encounter Details Date Type Department Care Team (Late st Contact Info) Description 04/30/2020 Telephone [facility] Infectious Disease - [address] [phone] Antony Myers, [address] [facility], [address] [place] [address] Follow-up Social History Tobacco Use [...] Telephone Encounter - Antony Myers DO - 04/30/2020 0957 EST Case discussed with our [facility] ADMINISTRATION ASSISTANT Brittanie barnes. She reports the patient has been more confused this week as noted during the visit and the patient states that she has been off her antiseizure medication and HIV medications for an unclear period of time. Patient stated that some of her confusion was secondary to a recent seizure. Patient admits to continued poor p.o. intake as well. She continues to get Meals on Wheels but does not seem to be eating. She was released from home health care visits as at some point in March, she met her goals and therefore was discharged. She appears to be backsliding again. She lives alone, she has no family that we are aware of. She is known to Dr. Josiane Ovalle of palliative care in [place] who has made visits in the past and ideally, can reengage next week. Patient has always refused to move out of her apartment and into an assisted living type setting but I suspect, if she continues to be poorly adherent to her seizure medication and HIV medications, she eventually will not be able to live on her own. We have her scheduled for a phone call follow-up visit on Monday so we will reassess at that time. Brittanie has gone to the pharmacy in [facility] and picked up all the medications and try to teach Josiane how to use a weekly pillbox but it isunclear if the patient will follow through with this assistance. documented in this encounter Plan of Treatment Not on file documented as of this encounter Visit Diagnoses Not on filedocumented in this encounter Care Teams Market Intelligence Consultant Relationship Specialty Start Date End Date Sarah Alejo NP [address] [place] [address] PCP - General 09/20/18 documented as of this encounter
--- OUTSIDE RECORDS SUMMARY | 2023-12-04 16:38 | XMS_ITS | Encounter Summary ---
Author Organization [facility] Address [address] [place] [address] Care Team Providers Care Ep Tech Name Role Phone Sarah Alejo MONITOR TECHNICIAN Primary Care Provider Reason for Referral * Medication Prior Authorization (48 Hrs (Urgent)) - Closed Specialty Diagnoses / Procedures [facility] Diagnoses Symptomatic HIV infection ([facility]) Antony Myers DO [address] [facility], [address] [place] [address] [facility] [address] [place] [address] Referral ID Status Reason Start Date Expiration Date Visits Requested Visits Authorized [id number] Closed Medication Prior Authorization 11/21/2019 1 1 Question Answer Medication to be Prior Authorized: etravirine 200 mg BID, dolutegravir 50 mg BID, and Truvada once daily Comments The purpose of this consult request is to inform the scheduling staff that a medication needs to be prior-authorized before it is prescribed and/or administered. Reason for Visit * Reason Onset Date Comments Prior Auth, Medication 11/21/2019 Intelence /Tivicay/Truvada Encounter Details Date Type Department Care Team (Late st Contact Info) Description 11/21/2019 Telephone [facility] Infectious Disease [facility] [address] [place] [address] Antony Myers DO [address] [facility], [address] [place] [address] Prior Auth, Medication (Intelence/Tivicay/Nehemiah yoav) Social History Tobacco Use Types Packs/Day Years [...] encounter Miscellaneous Notes * Telephone Encounter - Elias Petit - 11/22/2019 1148 EDT Prior Authorization Not Required Medication: Intelence/Tivicay/Truvada Insurance Response: med/product is on your plan's list of covered drugs Pharmacy: [facility]? Prior Authorization Submission Process Medication: Intelence/Tivicay/Truvada Insurance: [employer] MedD/VTM secondary Date PA Request Received: 11/21/19 PA Submission Date: 11/22/19 CMM Angel: [id number] Submitted by: Elias * Telephone Encounter - Saba Thakkar - 11/21/[address] Myers - patient may require change in HIV regimen to regimen she can crush to aid in administration. Once MD confirms patient is able to crush medications, will evaluate if any of these medications require a PA. Saba Thakkar, PharmD Pharmacist Clinician - Gastroenterology/Hepatology 11/21/2019 documented in this encounter Plan of Treatment Scheduled Referrals Name Type Priority Associated Diagnoses Order Schedule AMB MEDICATION PRIOR AUTHORIZATION Outpatient Referral Routine Symptomatic HIV infection (HCC-CMS) Ordered: 11/21/2019 documented as of this encounter Visit Diagnoses Diagnosis Symptomatic HIV infection ([facility])- Primary Human immunodeficiency virus [HIV] disease documented in this encounter Care Teams Ep Tech Relationship Specialty Start Date End Date Sarah Alejo NP [address] [place] [address] PCP - General 09/20/18 documented as of this encounter
--- OUTSIDE RECORDS SUMMARY | 2023-12-04 16:38 | XMS_ITS | Encounter Summary ---
Author Organization Health system Address [address] [place] [address] Care Team Providers Care Sales Promotion Officer Name Role Phone Sarah Alejo METER/RELAY TECHNICIAN Primary Care Provider [phone] Encounter Details Date Type Department Care Team (Late st Contact Info) Description 03/12/2020 Lab Requisition [facility] Pathology & Laboratory Medicine - [facility] [address] [place] [address] Outr Resulting Lab, Provider Social History Tobacco [...] Associated Diagnosis Comments T CELL SUBSETS Routine 03/12/2020 10:45 EST documented in this encounter Results * (ABNORMAL) IMMUNODEFICIENCY PANEL (03/12/2020 10:45 EST) % CD3 86 62 - 87 % 03/16/2020 16:06 EST [facility] % CD4 6(L) 35 - 63 % 03/16/2020 16:06 EST [facility] % CD8 81(H) 10 - 35 % 03/16/2020 16:06 EST [facility] Absolute CD4 27.0(L) 329-1,427 Cells/uL 03/16/2020 16:06 EST [facility] Blood VENOUS BLOOD / Unknown 03/12/2020 10:45 EST 03/12/2020 16:11 EST Provider Outr Resulting Lab IMMUNOLOGY A ND SEROLOGY ORDERABLES Performing Organization Address City/State/[facility] Co de Phone Number [facility] [address] [place] [address] documented in this encounter Visit Diagnoses Not on filedocumented in this encounter Care Teams Sales Promotion Officer Relationship Specialty Start Date End Date Sarah Alejo, CAROLE [address] [place] [id number] PCP - General 09/20/18 documented as of this encounter
--- OUTSIDE RECORDS SUMMARY | 2023-12-04 16:38 | XMS_ITS | Encounter Summary ---
Author Organization [facility] Address [address] [place] [address] Care Team Providers Care Inventory Assistant Name Role Phone Sarah Alejo CREDIT VERIFICATION CLERK Primary Care Provider [phone] Reason for Visit * Reason Comments HIV Positive/AIDS Encounter Details Date Type Department Care Team (Late st Contact Info) Description 05/04/2020 10:00 EST Telemedicine [facility] Infectious Disease - [address] [phone] Antony Myers, [address] [facility], [address] [place] [address] AIDS (acquired immune deficiency syndrome) ([facility]) (Primary Dx) Social History Tobacco Use Types [...] Progress Notes * Antony Myers DO - 05/04/2020 1000 EST Images from the original note were not included. Division of Infectious Disease Follow up/Progress Note Telephone visit 05/04/20 10:00 The concept of ???Telemedicine?? has been described [...] care as described in the progress note. I spent a total of 30 minutes on the date of this encounter meeting with the patient and reviewing documentation/coordinating care as described in the above note. No procedures were performed at the time of the visit. HPI:??Ms.??Junior??is a 64y.o.??female??with history significant for HIV/AIDS, recalcitrant seizure disorder, severe depression??and esophageal dysmotility??who presents with routine HIV??follow up.?Her last visit was in?July 2019 via phone call. ??We are trying to see her frequently to alberto little to work on the challenge of her adherence with her ART in the setting of her depression and esophageal dysmotility. ??Most recent labs in Feb 2020 show CD4 27 at 6% , VL 10,069 ?? HIV diagnosed in 1990??and most of her care for HIV occurred down in [facility] until about 3 years ago. ?? Pt on Dolutegravir 50mg BID,??liquid??3TC??150mg BID??and??25 mg??TAF??daily, a regimen that was slected for the small size of tablets of availability of liquid formulation due to difficulty in swallowing in past.?Dolutegravir is BID as her seizure medications may lower levels. ?She is also on bactrim suspension for PCP prophy but unfortunately, due to ongoing waxing and waning of adherence problems, she had been off her Bactrim and ART sounds like over the past 2 weeks at least. ?? Pt cared for at both [facility] and [facility] in past with difficulties in adherence. ??A lengthy review of ID notes from [facility] indicate that patient would frequently have viremia, genotypes always showed wild-type virus so it was presumed she just wasn't taking her meds. ??After years in [facility] system, she returned to [facility] HIV clinic in 2017. ?? Her main difficulty for years in adhering to her ART was swallowing difficulties. She is seeing GI at [facility] again which has been helpful. ??She continues to be incredibly nonspecific and tangential when we try to clarify exactly how much of her ART she is actually able to keep down She has re-engaged with GI at [facility] and some time in late 2019, and again per her report in early Mar 2020, she had EGD with balloon dilatation of her esophagus again and colo as well. Next follow-up is in a few months. ?? She had break through seizures last week was found to be confused by several visiting providers butseems clear this week. Local neurologist is aware of most recent seizures and we suspect is from her poor adherence with her antiseizure medication ?? We have been thinking hard about better ART regimens for the patient that would be completely liquid??and ideally get her undetectable again. ??Case discussed at length with [facility] pharmacist in the past spring and we were considering liquid darunavir, ritonavir, raltegravir, and emtricitabine-tenofovir but unfortunately these would have drug drug interactions with her seizure medications, most speci fically??Eslicarbizepine.?Case discussed with her neurologist who stated she could consider changing her antiseizure medications if this made treating her HIV more feasible. ??However, when discussing case with patient in the spring 2019, she refused to change any of her seizure medications. After her brief admission to [facility] back in February 2020 for diarrhea and dehydration she transferredto a local SNF but unfortunately, she signed out AMA and arrived back home with limited food etc. She was able to get multiple social media specialist from her primary care provider that started entering [facility] she seem to be improving as she was getting frequent visiting nurses/home physical therapy etc. Unfortunately, as she was doing well in the services, she was released from them and appears to have been on her own for the last 2 weeks. During this time, her adherence with her ART has declined again. Brittanie has made 2 separate house-visits last week for safety assessments. She reports that her a partment is clean and that her post ictal confusion seemed to be improving over the course of the week. Today, she seems sharp over the phone. She continues to have difficulty in consistently swallowing medications and food. Her weight loss continues. Diarrhea has improved. She has not been getting outof her apartment for exercise due to the weather. Review of Systems: 10-point review of systems is negative except as noted in the HPI. ?? Past Medical History: Epilepsy with refractory seizures and required surgery for partial lobectomy, followed by [facility]??in past, now by neurology at [facility] Cervical dysplasia Obesity HLD Esophageal stricture, requiring dilation??x 2 in past at [facility] which pt describes as a negative experience Herpes zoster 2011 Anal fissures ? Etoh abuse Poor adherence with ART??chronically, largely to 2 esophageal motility disorder and underlying depression. Severe, untreated depression Active smoker ?? Past Surgical History:?? 2017??Craniotomy for seizures complicated by subdural hematoma Shira botox injections for headaches [place] x 3, last one at [facility] 2013 where she had polyps removed Epiglottis surgery x 3 Hemorrhoid banding 2014 Esophageal dilatation [facility] 2019 and again in March 2020. [place] [facility] March 2020 ?? Current Outpatient Medications: clonazePAM [...] Herbal:none Professional:??Not working Relationships / Living Situation:??Living alone, seems to have little to no local support. ??Son lei in [place]??but she has zero contact with him. No other living relatives. Sexual:??Not currently sexually active none Exercise: Limited this winter Travel:??From [place],??went to college in [place],??then went to [place] and now in [place]. ??[place] on vacation. ?? Animal exposure:??no pets [...] immunocompromised state. ?? Physical Exam AAO x3, monotone with a flat affect (baseline) ? February 2019 VL 3939 February 2019 CD4 63 at 6% ?? August 2019 VL 28,000 August 2019 CD4 51 ?? Feb 2020 VL 10,000 Feb 2020 CD4 27 Assessment and Plan: ?? 1) HIV ?? - Currently on??Dolutegravir 50mg po BID,??liquid??3TC??150 mg twice daily (for unclear reasons, patient states she stopped her 3TC),??25mg??TAF??daily,??was??doing very well briefly??in 2018??on this new regimen but she is having significant difficulties since then.?Her VL had??been??<??20 in??Jul 2017 and Oct 2017 with a slight??blip to 89 in Mar 2018.??Since then, her CD4 is falling steadily and VL steady in the 10,000 range. ?? 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 ??In reviewing old genotypes from [facility], she had always had wild- type in the past. The patient's case raises the question about whether she would benefit from intramuscular, long acting cabotegravir/rilpivirine. ??However, based on all her other problems, and current viremia, and the necessity to at least start off with a solid month of p.o. ??cabotegravir/rilpivirine??prior to changing to IM, I do not think she is a good candidate for this right now. The other thing that I think were getting to the point of is the placement of a feeding tube if she is willing to go through this. ?? - Last VL in??Feb 2020 10,000 - Last CD4 count??Feb 2020 ?? - OI prophylaxis:??Keep up liquid bactrim. - Compliance:??Constant problem for the past 2 years. Sometimes clearly related to her inability toswallow, sometimes related to her inability to picker tender helper her refills and stay organized. More recently, patient has relied on Brittanie to physically picker tender helper her medications and bring them into her home. - Sexual activity:??None - HBV/HCV: ??Hep C Ab neg 2014, hep B surface ab neg/hep B surface ag neg. ? - Dental exam: ?Patient was unhappy with prior dental care in the past and has not seen a dentist in at least the past 2 years. - PCM??is??at [facility]??but pt not seeing them routinely. - Follow up with us in May. If we can ever get her on her ART consistently, would like to get follow on VL and CD4. 2) Health maintenance - Cholesterol:??LDL 117 in Mar 2018 - Diabetes:??FSBS 95 in Mar 2018 - Colonoscopy:??2020 - Immunizations:Prevnar 13 in 2012, pneumovax 2009??and 2019. ??Flu 2019. ??Tdap in??2019.?She is non hep B immune so may benefit from the new hep B vaccine in the future??when it becomes avail. Needs Shingrix #2 with next [id number]??visit. - Pap:??Last pap??May??2018, normal by report - Mammogram:In 2018, normal by report ?? 3) Seizures that have been recalcitrant to medications and required a [facility] that was complicated by a postop bleed several years ago. [facility] has been in contact with her neurologist who is aware of more recent seizures andpt having gone without seizure meds recently due to lack of meds at home. Brittanie personally picked up her supply from the pharmacy and delivered to her home. Pt refused to use the weekly pill box Brittanie gave her so I suspect she will continue to struggle with her seizures. ?? 4)??Depression,??always her largest problem. Patient has poor insight. ??She sees PCM in [facility] but not consistently.? 5)??PCM,??seen at??[facility]. ?? 6) Active smoking,??pt??not interested in quitting now. ?? 7) Esophageal strictures. ??In reviewing records, she has been treated with esophageal dilatation several times in 2016 at [facility] and is now reengaged with her services and reports she has been dilated in January 2020 and again in March 2020. Is unclear if these processes are having a long-term positive impact on her ability to take pills and food. ?? It has been a pleasure??talking to Ms. Pacheco over the phone today. ?? Antony Myers DO Pager [phone] ?? Currently employed:??No ?? Adherence counseling:??Yes ?? [...] Diagnoses Diagnosis AIDS (acquired immune deficiency syndrome) ([facility])- Primary Human immunodeficiency virus [HIV] disease documented in this encounter Care Teams Inventory Assistant Relationship Specialty Start Date End Date Sarah Alejo NP [address] [place] [address] PCP - General 09/20/18 documented as of this encounter
--- OUTSIDE RECORDS SUMMARY | 2023-12-04 16:38 | XMS_ITS | Encounter Summary ---
Author Organization [facility] Address [address] [place] [address] Care Team Providers Care Litigation Specialist Name Role Phone Sarah Alejo HOSPITALITY ASSOCIATE Primary Care Provider [phone] Reason for Visit * Reason Comments Other Encounter Details Date Type Department Care Team (Late st Contact Info) Description 08/19/2021 Refill [facility] Infectious Disease - [address] [id number] Antony Myers, DO [address] [facility] [address] [place] [id number] Other Social History Tobacco Use Types Packs/Day [...] on filedocumented in this encounter Care Teams Litigation Specialist Relationship Specialty Start Date End Date Sarah Alejo HOSPITALITY ASSOCIATE [address] [place], [place] [address] PCP - General 09/20/18 documented as of this encounter
--- OUTSIDE RECORDS SUMMARY | 2023-12-04 16:38 | XMS_ITS | Encounter Summary ---
Author Organization [facility] Address [address] [place] [address] Care Team Providers Care Roping Machine Tender Name Role Phone Sarah Alejo BANDAGE MAKER Primary Care Provider [phone] Reason for Visit * Reason Onset Date Comments Follow-up 02/18/2020 Encounter Details Date Type Department Care Team (Late st Contact Info) Description 02/18/2020 Telephone [facility] Infectious Disease - [address] [phone] Antony Myers, [address] [facility], [address] [place] [address] Follow-up Social History Tobacco Use [...] Telephone Encounter - Antony Myers DO - 02/18/2020 1350 EST Patient no showed at her last scheduled appointment in November. I was able to get 2 more recent neurology notes faxed to me that indicated the patient was now being evaluated by gastroenterology at [facility] and having her esophagitis dilated. This is fantastic news. I am wondering at this point what she is able to take with regards to her medications. The initial plan was to switch her to liquidagents but it was complicated and involved her grinding up medications etc. If she is able to take pills, this would make her HIV care much easier. I called the patient today to get an update on how she was doing and only got her voicemail. I let the patient know I will try to contact her again tomorrow. documented in this encounter Plan of Treatment Not on file documented as of this encounter Visit Diagnoses Not on filedocumented in this encounter Care Teams Roping Machine Tender Relationship Specialty Start Date End Date Sarah Alejo NP [address] [place] [address] PCP - General 09/20/18 documented as of this encounter
--- OUTSIDE RECORDS SUMMARY | 2023-12-04 16:38 | XMS_ITS | Encounter Summary ---
Author Organization [facility] Address [address] [place] [address] Care Team Providers Care Inspector Material Disposition Name Role Phone Sarah Alejo DRYING CAN WORKER Primary Care Provider [phone] Encounter Details Date Type Department Care Team (Late st Contact Info) Description 03/12/2020 Lab Requisition [facility] Pathology & Laboratory Medicine - [facility] [address] [place] [address] Outr Resulting Lab, Provider Social History Tobacco [...] Diagnosis Comments HIV 1 RNA QUANTITATION Routine 03/12/2020 6:10 EST documented in this encounter Results * (ABNORMAL) HIV 1 RNA QUANTITATION (03/12/2020 6:10 EST) HIV RNA Detection, Qual Detected( A) Undetected copies/mL 03/16/2020 14:55 EST [facility] HIV 1 RNA Quant 10,069(H) Undetected copies/mL 03/16/2020 14:55 EST [facility] Blood VENOUS BLOOD / Unknown 03/12/2020 6:10 EST 03/12/2020 16:11 EST Narrative [facility] - 03/16/2020 14:55 EST The quantification range of this assay is 20 IU/mL to 10,000,000 IU/mL. ??Testing was performed on the ORLIN Ampliprep/ORLIN TaqMan HIV v2.0 ([employer] Provider Outr Resulting Lab CHEMISTRY & BLOOD GAS ORDERABLES [facility] [address] [place] [address] documented in this encounter Visit Diagnoses Not on filedocumented in this encounter Care Teams Inspector Material Disposition Relationship Specialty Start Date End Date Sarah Alejo NP [address] [place] [address] PCP - General 09/20/18 documented as of this encounter
--- OUTSIDE RECORDS SUMMARY | 2023-12-04 16:38 | XMS_ITS | Encounter Summary ---
Author Organization [facility] Address [address] [place] [address] Care Team Providers Care Driver License Examiner Name Role Phone Sarah Alejo SUPERVISOR [employer] Primary Care Provider Reason for Visit * Reason Onset Date Comments Follow-up 10/19/2020 Encounter Details Date Type Department Care Team (Late st Contact Info) Description 10/19/2020 Telephone [facility] Infectious Disease - [address] [phone] Antony Myers, [address] [facility], [address] [place] [address] Follow-up Social History Tobacco Use [...] Telephone Encounter - Antony Myers DO - 10/19/2020 1107 EDT We will be seeing patient next month for her routine HIV. Patient needed refills of the following which were called into [facility] today: Dolutegravir 50 mg 1 tablet p.o. twice daily TAF 25 mg 1 tablet p.o. daily Lamivudine 10 mg/mL solution. Take 15 mL (150 mg) twice daily Bactrim 200 mg-40 mg/5 mL solution. Take 10 mL p.o. daily We tried to get patient a 3-month supply of all of the above with 3 refills. documented in this encounter Plan of Treatment Not on file documented as of this encounter Visit Diagnoses Not on filedocumented in this encounter Care Teams Driver License Examiner Relationship Specialty Start Date End Date Sarah Alejo NP [address] [place] [address] PCP - General 09/20/18 documented as of this encounter
--- OUTSIDE RECORDS SUMMARY | 2023-12-04 16:38 | XMS_ITS | Encounter Summary ---
Author Organization [facility] Address [address] [place] [address] Care Team Providers Care Athletic Equipment Custodian Name Role Phone Sarah Alejo DISPLAY SPECIALIST Primary Care Provider [phone] Encounter Details Date Type Department Care Team (Late st Contact Info) Description 01/28/2021 Orders Only [facility] Infectious Disease - [address] [phone] Antony Myers, DO [address] [facility], [address] [place] [phone] AIDS (acquired immune deficiency syndrome) ([facility] ([facility]) (Primary Dx) Social History Tobacco Use Types [...] Diagnoses Diagnosis AIDS (acquired immune deficiency syndrome) ([facility])- Primary Human immunodeficiency virus [HIV] disease documented in this encounter Care Teams Athletic Equipment Custodian Relationship Specialty Start Date End Date Sarah Alejo NP [address] [place] [address] PCP - General 09/20/18 documented as of this encounter
--- OUTSIDE RECORDS SUMMARY | 2023-12-04 16:38 | XMS_ITS | Encounter Summary ---
Author Organization [facility] Address [address] [place] [address] Care Team Providers Care Channel Development Director Name Role Phone Sarah Alejo CONSUMER INSIGHTS INTERN Primary Care Provider [phone] Encounter Details Date Type Department Care Team (Late st Contact Info) Description 07/19/2021 Specialty Pharmacy [facility] - Main [place] [address], [place] [address] Licha Chua, [facility] Social History Tobacco Use Types Packs/Day Years [...] on filedocumented in this encounter Care Teams Channel Development Director Relationship Specialty Start Date End Date Sarah Alejo NP [address] [place] [address] PCP - General 09/20/18 documented as of this encounter
--- OUTSIDE RECORDS SUMMARY | 2023-12-04 16:38 | XMS_ITS | Encounter Summary ---
Author Organization [facility] Address [address] [place] [address] Care Team Providers Care Acoustical Engineer Name Role Phone Sarah Alejo COTTONSEED MEAT PRESSER Primary Care Provider [phone] Reason for Visit * Reason Comments Follow-up Encounter Details Date Type Department Care Team (Late st Contact Info) Description 08/12/2019 10:00 EDT Telemedicine [facility] Infectious Disease - [address] [phone] Antony Myers, [address] [facility], [address] [place] [address] Symptomatic HIV infection ([facility]) (Primary Dx) Social History Tobacco Use Types [...] of this encounter Progress Notes * Antony Myers, - 08/12/2019 1000 EDT Images from the original note were not included. Division of Infectious Disease Follow up/Progress Note Telephone visit 08/12/19 10:24 The concept of ???Telemedicine?? has been described [...] care as described in the progress note. ?? HPI:??Ms.??Junior??is a 64y.o.??female??with history significant for HIV/AIDS, recalcitrant seizure disorder, severe depression and esophageal dysmotility??who presents with routine HIV??follow up.?Her last visit was in May 2019 via phone call. We are trying to see her frequently to continue to work on the challenge of her adherence with her ART in the setting of her depression and esophageal dysmotility. Most recent labs in February 2019 show a HIV viral load of 3939 (stable), and a CD4 count of 63 at 6%. ?? HIV diagnosed in 1990 and most of her care for HIV occurred down in [facility] until about 2 years ago. ?? Pt on Dolutegravir 50mg BID,??liquid??3TC??150mg BID??and??25 mg??TAF??daily, a regimen that was slected for the small size of tablets of availability of liquid formulation due to difficulty in swallowing in past.?Dolutegravir is BID as her seizure medications may lower levels. ?She is also on bactrim suspension for PCP prophy. ? Pt cared for at both [facility] and [facility] in past with difficulties in adherence. ??A lengthy review of ID notes from [facility] indicate that patient would frequently have viremia, genotypes always showed wild-type virus so it was presumed she just wasn't taking her meds. ??After years in [facility] system, she returned to [facility] HIV clinic in 2017. ?? Her main difficulty for years in adhering to her ART was swallowing difficulties and this problem persists. ?? She had two break-through seizures in past year. ??She met with her neurologist at [facility] who recommend considering moving to an assisted living/retirement type setting which upset pt and she is now is considering moving her neurology care back to [facility]. She continues to be incredibly nonspecific and tangential when we try to clarify exactly how much of her ART she is actually able to keep down but clearly states that pills keep getting stuck. ?? She seemed again on his phone call that included both Brittanie and myself to be less distraught and tearful compared to her last interface in clinic visit back in the winter. Patient states she is able to get outside of her bird watching but she enjoys and she seems to have good insight on her overallclinical picture which she admits is quite complicated. We have been thinking hard about better ART regimens for the patient that would be completely liquid and ideally get her undetectable again. Patient stated that this would be feasible and would be a nice improvement. Case discussed at length with [facility] pharmacist, when considering liquid darunavir, ritonavir, raltegravir, and emtricitabine-tenofovir, these would have drug drug interactions with her seizure medications most specifically Eslicarbizepine. Case discussed with her neurologist who stated she could consider changing her antiseizure medications if this made treating her HIV more feasible. However, when discussing case with patient today, patient adamantly refused to make any changes in her seizure medications as is been such a long road to get her therapeutic. In addition, patient does not seem to have the most therapeutic relationship with her neurologist and has been always reluctant to return to neurology at [facility] so we are in the situation of probably just leaving [facility] for now. ?? Review of Systems: 10-point review of systems is negative except as noted in the HPI. ?? Past Medical History: Epilepsy with refractory seizures and required surgery, [facility] Cervical [facility] Obesity HLD Esophageal stricture, requiring dilation??x 2 in past at [facility] which pt describes as a negative experience Herpes zoster 2011 Anal fissures ? Etoh abuse Poor adherence with ART chronically, largely to 2 esophageal motility disorder. ? Past Surgical History:?? 2017??Craniotomy for seizures complicated by subdural hematoma Shira botox injections for headaches [place] x 3, last one at [facility] 2013 where she had polyps removed Epiglottis surgery x 3 Hemorrhoid banding 2013 ?? Current Outpatient Medications: clonazePAM (KLONOPIN) 1 [...] ? No Known Allergies ?? Social History Tobacco:??down to about a pack a week. Alcohol:??2 beers weekly Recreational drugs:none Herbal:none Professional:??Not working Relationships / Living Situation:??Living alone, has RCT to help with driving. ??Son is chef's assistant in [place]??but contact seems very limited??which is discouraging to patient and she is not even sure where he is now. Sexual:??Not currently sexually active Exercise:??Seems to have good exercise regimen Travel:??From [place],??[place] to college in [place],??then went to [place] and now in [place]. ??[place] on vacation. ?? Animal exposure:??no pets [...] immunocompromised state. ?? Physical Exam AAO x3, pleasant, monotone with a flat affect (baseline) ? February 2019 CD4 3939 February 2019 viral load 63 at 6% ?? Assessment and Plan: ?? 1) HIV ?? - Currently on??Dolutegravir 50mg po BID,??liquid??3TC??150 mg twice daily,??25mg??TAF??daily,??was??doing very well??in 2018??but she is having difficulties since then.?Her VL had??been??<??20in??Jul 2017 and Oct 2017 with a slight??blip to 89 in Mar 2018.??Since then, her CD4 is falling steadily down to 63 at 6% and her viral load remains stable at 3939. 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 ??In reviewing old genotypes from [facility], she had always had wild- type in the past. ??Her most recent one checked was in 2012. ??Patient is adamant that she really does like her current ART does not want to go backto her old formulations.?? Based on her current genotype, if she consistently took her medications,this should be working. Patient refuses to go back to her old ART as she could not tolerate taking them. ?? Of note, pt refused to follow up with GI in [facility] to address esophageal concerns and we don't have GI locally and at this point, I dont think she would be willing to see one anyway. ?? The patient's case raises the question about whether she would benefit from intramuscular, long acting cabotegravir/ rilpivirine. However, based on all her other problems, and current viremia, and the necessity to atleast start of with a solid month of p.o. cabotegravir/rilpivirine prior to changing to IM and the need to have an undetectable viral load when starting, I do not think she is a good candidate for this right now. ?? - Last VL in??Feb 2019??3939 (stable) - Last CD4 count??Feb 2019??is 63??at 6%?? - OI prophylaxis:??Keep up liquid bactrim - Compliance:??It continues to be very difficult for pt to quantify how many doses of ART she cannot tolerate due to GI concerns. Past attempts at getting the patient to keep a diary have failed. Today, she continues to state a lot of pills just stay stuck when she tries to swallow. - Sexual activity:??None - HBV/HCV: ??Hep C Ab neg 2014, hep B surface ab neg/hep B surface ag neg. ? - Dental exam: ??The need for better dental care is something we talk about at every visit. ?? Patient was unhappy with prior dental care in the past. - PCM??is??at [facility] IM??but pt not seeing them routinely?? -Would like to at least draw labs now to see where she is standing. Brittanie try to set this up the patient struggled with trying to make an appointment and get a ride. She will try to do this again over the next few weeks. -A possible all liquid regimen could include ritonavir, darunavir, raltegravir, emtricitabine and tenofovir but the protease inhibitors have significant drug drug interactions with her seizure medications and she is not willing to change her seizure medications so were kind of stuck just staying onher current course. IM options may be available in the future to consider. Brittanie will see if we can get labs drawn next month or so, then we will see her again via a phone visit at the 3-month marya. Patient appreciated our call is comfortable with the plan. 2) Health maintenance - Cholesterol:??LDL 117 in Mar 2018 - Diabetes:??FSBS 95 in Mar 2018 - Colonoscopy:??2014??with tubular adenoma so recommended a repeat in 2019.?Pt will bring this up with PCM - Immunizations:Prevnar 13 in 2013, pneumovax 2010??and 2019. ??Flu 2019. ??Tdap in??2019.?She is non hep B immune so may benefit from the new hep B vaccine in the future??when it becomes avail.?Shingrix #1 2019, needs #2 with next [id number] visit. - Pap:??Last pap??May??2019, normal by report - Mammogram:In 2019, normal by report ?? 3) Seizures, followed by neurology in[facility] now but this has not been a good experience for her. The patient would like to return to her neurologist down in [facility] but she never finishes the joband schedules the appointment. She left the [facility] system due to the distance but I generally feel she be better off if she returned to it as she seemed to like her neurologist down there and we do not have gastroenterology up here. ?? 4)??Depression,??is now her largest problem. ??She sees PCM in [facility] for this but not consistently. ?? She continues to complain about, she does not like her apartment, but she is unwilling to move.She will not see psychiatry routinely and has been relying on primary care to manage this. She doeshave good insight into her situation globally seems improved compared to her last visit. She does keep some interests such as bird watching and states she has a lot of friends online that share musicwith her. ?? 5)??PCM,??seen at[facility] ?? 6) Active smoking,??pt??not interested in quitting now. ?? 7) Frequent??vomiting and patient with a known history of esophageal strictures. ??In reviewing records, she has been treated with esophageal dilatation several times in 2016 at [facility] and did notlike the experience. ??Patient refuses to return to [facility] GI. If we can get patient to follow-up with neurology down in [facility], that might be stopping soon to get her to see GI as well. In the meantime, she continues just to proceed with continued symptoms. ? It has been a pleasure talking to Ms. Pacheco over the phone today. ?? Antony Myers DO Pager [phone] ?? Currently employed: No ?? Adherence counseling: Yes ?? Linguistic services: No ?? Patient with HIV (-) partner: Not applicable ?? HIV (-) partner tested within the last 12 months: Not applicable ?? Partner notification discussed: Not applicable ?? Social History Social History ?? Tobacco Use Smoking Status Current Every Day Smoker ??? Packs/day: 0.50 Smokeless Tobacco Never Used ? Smoking cessation discussed: Yes ?? Gonorrhea and chlamydia testing done in the past year: No, not sexually active in the past 12 mos ?? Oral exam done at this visit: No ?? Seen by dentist in the past year. No ?? Referred to dentist at this visit: No ?? Housing: Stable ?? HIV risk reduction counseling: Yes ?? Screened for mental health: Yes ?? Screened for substance abuse: Yes ?? Current substance use (used more than once in the past 12 months): none ? documented in this encounter Plan of Treatment Not on file documented as of this encounter Visit Diagnoses Diagnosis Symptomatic HIV infection ([facility])- Primary Human immunodeficiency virus [HIV] disease documented in this encounter Care Teams Acoustical Engineer Relationship Specialty Start Date End Date Sarah Alejo NP [address] [place] [address] PCP - General 09/20/18 documented as of this encounter
--- OUTSIDE RECORDS SUMMARY | 2023-12-04 16:38 | XMS_ITS | Encounter Summary ---
Author Organization [facility] Address [address] [place] [address] Care Team Providers Care Oven Equipment Repairer Name Role Phone Sarah Alejo RUBBER PRESS TENDER Primary Care Provider [phone] Encounter Details Date Type Department Care Team (Late st Contact Info) Description 08/29/2019 Lab Requisition [facility] - [facility] [address] [place] [address] Outr Resulting Lab, Provider Social History Tobacco [...] Procedure Name Priority Date/Time Associated Diagnosis Comments HOLD LAVENDER TOP Routine 08/29/2019 16: 22 EDT HIV 1 RNA QUANTITATION Routine 08/29/2019 9:50 EDT T CELL SUBSETS Routine 08/29/2019 9:50 EDT documented in this encounter Results * HOLD LAVENDER TOP (08/29/2019 16:22 EDT) Hold Hold 08/29/2019 17:31 EDT [facility] Blood VENOUS BLOOD / Unknown 08/29/2019 16:22 EDT 08/29/2019 16:22 EDT Provider Outr Resulting Lab LAB INFO SER VICE AND SUPPORT & PHONE RESULT Performing Organization Address [facility] Co de Phone Number [facility] [address] [place] [address] * (ABNORMAL) HIV 1 RNA QUANTITATION (08/29/2019 9:50 EDT) HIV RNA Detection, Qual Detected( A) Undetected 09/02/2019 14:27 EDT [facility] HIV 1 RNA Quant 28,814(H) Undetected copies/mL 09/02/2019 14:27 EDT [facility] Blood VENOUS BLOOD / Unknown 08/29/2019 9:50 EDT 08/29/2019 16:20 EDT Narrative [facility] - 09/02/2019 14:27 EDT The quantification range of this assay is 20 IU/mL to 10,000,000 IU/mL. ??Testing was performed on the ORLIN Ampliprep/ORLIN TaqMan HIV v2.0 ([employer] Provider Outr Resulting Lab CHEMISTRY & BLOOD GAS ORDERABLES Performing Organization Address [facility]/ZIP Co de Phone Number [facility] [address] [place] [phone] * (ABNORMAL) IMMUNODEFICIENCY PANEL (08/29/2019 9:50 EDT) % CD3 90(H) 62 - 87 % 08/31/2019 12:05 EDT [facility] % CD4 4(L) 35 - 63 % 08/31/2019 12:05 EDT [facility] % CD8 86(H) 10 - 35 % 08/31/2019 12:05 EDT [facility] Absolute CD4 51(L) 329-1,427 Cells/uL 08/31/2019 12:05 EDT [facility] Blood VENOUS BLOOD / Unknown 08/29/2019 9:50 EDT 08/29/2019 16:29 EDT Provider Outr Resulting Lab IMMUNOLOGY A ND SEROLOGY ORDERABLES [facility] [address] [place] [address] documented in this encounter Visit Diagnoses Not on filedocumented in this encounter Care Teams Oven Equipment Repairer Relationship Specialty Start Date End Date Sarah Alejo, [address] [place] [address] PCP - General 09/20/18 documented as of this encounter
--- OUTSIDE RECORDS SUMMARY | 2023-12-04 16:38 | XMS_ITS | Encounter Summary ---
Author Organization [facility] Address [address] [place] [address] Care Team Providers Care Deck Mechanic Name Role Phone Sarah Alejo FARM OPERATIONS MANAGER Primary Care Provider [phone] Reason for Visit * Reason Onset Date Comments Follow-up 10/28/2019 Encounter Details Date Type Department Care Team (Late st Contact Info) Description 10/28/2019 Telephone [facility] Infectious Disease - [address] [phone] Antony Myers, [address] [facility], [address] [place] [address] Follow-up Social History Tobacco Use [...] Telephone Encounter - Antony Myers DO - 10/28/2019 4227 EDT I left a message with the patient's primary care provider, Elva GRISSOM, at [facility] internal medicine. The patient is scheduled to see her later on this week. I asked Elva to please call me back so that I could bring her up to speed with how the patient has been doing for the last few months. documented in this encounter Plan of Treatment Not on file documented as of this encounter Visit Diagnoses Not on filedocumented in this encounter Care Teams Deck Mechanic Relationship Specialty Start Date End Date Sarah Alejo NP [address] [place] [id number] PCP - General 09/20/18 documented as of this encounter
--- OUTSIDE RECORDS SUMMARY | 2023-12-04 16:38 | XMS_ITS | Encounter Summary ---
Author Organization [facility] Address [address] [place] [address] Care Team Providers Care Law Librarian Name Role Phone Sarah Alejo RIVER RAT Primary Care Provider [phone] Encounter Details Date Type Department Care Team (Late st Contact Info) Description 08/18/2021 Specialty Pharmacy [facility] - Main [place] [address] [place], [place] [phone] Licha Chua, [facility] Social History Tobacco Use Types Packs/Day Years [...] as of this encounter Progress Notes * Debra Gillette - 08/18/2021 162 EDT Specialty Pharmacy Non-Outreach Documentation Medication: Lamivudine Clinic: HIV Reason for Encounter: Outreach Notes: Refill requested for Lamivudine Follow up date: 08/19/21 Follow up reason: Outreach * Debra Gillette - 08/18/2021 1627 EDT Still requires PA 08/26 documented in this encounter Plan of Treatment Not on file documented as of this encounter Visit Diagnoses Not on filedocumented in this encounter Care Teams Law Librarian Relationship Specialty Start Date End Date Sarah Alejo, CAROLE [address] [place] [id number] PCP - General 09/20/18 documented as of this encounter
--- OUTSIDE RECORDS SUMMARY | 2023-12-04 16:38 | XMS_ITS | Encounter Summary ---
Author Organization [facility] Address [address] [place] [address] Care Team Providers Care Sas Programmer Name Role Phone Sarah Alejo NUCLEAR INSTRUCTOR Primary Care Provider [phone] Reason for Visit * Reason Comments Follow-up Encounter Details Date Type Department Care Team (Late st Contact Info) Description 07/19/2021 13:00 EDT Telemedicine [facility] Infectious Disease - [address] [phone] Antony Myers, [address] [facility], [address] [place] [address] AIDS (acquired immune deficiency syndrome) [...] Progress Notes * Antony Myers DO - 07/19/2021 1300 EDT Images from the original note were not included. I spent a total of 30 minutes on the date of this encounter meeting with the patient and reviewing documentation/coordinating care as described in the above note. No procedures were performed at the time of the visit. Division of Infectious Disease Follow up/Progress Note Telephone visit 07/19/21 12:53 The concept of ???Telemedicine?? has been described [...] care as described in the progress note. HPI:?Junior??is a 65y.o.??female??with history significant for HIV/AIDS??diagnosed 1990, recalcitrant seizure [...] in the past few months. Labs from June 2021 show CD4 count 134 and a viral load <20. ?? Pt on Dolutegravir 50mg BID,??3TC 150mg tablet BID??and??TAF??25 mg??daily;??a regimen that was slected for the small size of tablets.?Dolutegravir is BID as her seizure medications may lower levels. ?She is also on??bactrim suspension for PJP prophy ? As background: ?? In the 2016 timeframe, patient transferred her care from [facility] ID clinic to the??[facility].?A lengthy review of ID notes from [facility] indicate that patient would frequently have viremia, [...] was swallowing difficulties.?She is??finally?plugged back into??GI at [facility] again which has been??incredibly??helpful??as they have dilated her esophagus several times.?At this point in time, patient states she has no problem swallowing an y of her medications. ?? After her brief admission to??[facility]??back in February 2020??for diarrhea and dehydration??she??transferred to a local SNF??but unfortunately,??she signed out AMA but globally is doing much better now. ?? Returned to neurology at [facility]??in 2020. ??Most recent visit in Nov 2020, the plan was to stay the course. ??Pt was reporting about 1 seizure per month which was improved/stable which resulted??in pt falling on floor/contusion to her forehead.?She does not drive a car. ?She remains without any social supports, lives alone,??does not have transportation so relies on walking for groceries etc.??and most interactions with [facility] recently have been home visits that [place]. ?? Since utilizing the mail order pharmacy and Brittanie going to her house for blood draws, adherence checks etc., patient has made a remarkable rebound. Esophageal problems seem OK. Patient made a phenomenal turnaround once her esophagitis was fixed and mail order pharmacy started delivering her ART without any further gaps in care. Her weight is up to about 200 pounds, no recent seizure activity, no difficulty swallowing. Patientmain complaint now seems to be related to dissatisfaction with her living situation (current apartment currently has a lot of drug dealing going on and disruptive neighbors). ?? Review of Systems: 10-point review of systems is negative except as noted in the HPI. ?? Past Medical History: Epilepsy with refractory seizures and required surgery??for partial??temporal??lobectomy, followed??neurology at [facility]. Cervical dysplasia Obesity HLD Esophageal stricture, requiring dilation??x 2 in past at [facility], and again more recently??in 2020.. Herpes zoster 2011 Anal fissures ? Etoh abuse, this is always been a concern??based on prior notes??but she denies recent use. Poor adherence with ART??chronically, largely to 2 esophageal motility disorder??and underlying depression. Severe, untreated??depression Active smoker ? Past Surgical History:?? 2017??Craniotomy for seizures complicated by subdural hematoma Shira botox injections for headaches [place] x??4, last one at??[facility] 2020?? Epiglottis surgery x 3 Hemorrhoid banding 2014 Esophageal dilatation??[facility]??2019 and again in March 2020 ?? Current [...] agreed. Sexual:??Not currently sexually active Exercise:??Limited Travel:??From [place],??went to college in [place],??then went to [place] and now in [place]. ??[place] on vacation. ?? Animal exposure:??no pets [...] state. ?? Physical Exam AAO x3 self-reported 200 pounds today. (self reported weight Mar 2021 is 189). 139lbs was her [...] 2021 VL <16 Jul 2021 CD4 134 Assessment and Plan: ?? 1) HIV - ART:??Dolutegravir 50mg po BID,??3TC??150 mg twice daily tablet,??25mg??TAF??daily, now with perfect adherence through the mail order pharmacy. Greatly appreciate our pharmacist assistance in making this work as it had a remarkable impact on the patient's life. -Most recent CD4 count??June 2021 134 -Most recent HIV??VL June 2021 < 20 - OI prophylaxis:??Keep up liquid bactrim. CD4 recovery seems to be plateaued. - Compliance:??perfect now that mail order is working. - Sexual activity:??None - HBV/HCV: ??Hep C Ab neg 2014, hep B surface ab neg/hep B surface ag neg. ? - PCM??is??at [facility], not recently however. -??Plan will be to stay with current ART as it is clearly working. -Close follow-up in 3 months to assure patient does not develop esophageal problems which hinders her adherence with ART. We'll repeat labs September/October 2021 timeframe ?? 2) Health maintenance - Colonoscopy:??2020 - Immunizations:Prevnar 13 in 2012, pneumovax 2009??and 2019. ??Tdap in??2019.?Covid vaccine 2020??#3 UTD, #4 due now, we will ask Unique if she can transport patient to a pharmacy for the booster.?Flu Dec 2020 - Pap:??Last pap??Joanie??2020, normal by report - Mammogram:In 2020, normal by report ?? 3) Seizures??that have been recalcitrant to medications and required a craniectomy-partial lobectomy at [facility]??that was complicated by a postop bleed??several years ago. ??She is??now back with her original neurologist from [facility].?Having infrequent breakthrough seizures but they seem improved recently probably related to better adherence with her meds.?Neurology plan for now is to stay the course. ??She does not drive a car.?Follow up with neurology in [facility]??summer 2021 ?? 4)??Depression,??always??her largest problem??that has made all other clinical concerns difficult for her to manage.? Seems OK now. ?? 5)??PCM,??seen at??[facility]. Sees Sarah Alejo. ?? 6) Active smoking,??pt??not interested in quitting now. ?? 7)??Esophageal strictures have been a massive hindrance to good adherence with Sz/HIV meds in past.?Treated with esophageal dilatation several times in 2015 at [facility]??and??after a long hiatusof being lost to follow-up, she was??dilated in January 2020 and again in March 2020??where were incredibly helpful.?Today, is stable but we're always vigilant about new problems. She feels comfortable with just staying the course for now. She also feels her neurologist in [facility] can easily prompt a visit with [facility] GI if needed. ?? 8)?Very limited, essentially none, social support. ??All interactions with HIV clinic are in person visits when Brittanie drives to her apartment. ??After years of encouraging patient to move out of her current apartment, she finally agreed so we will ask [facility] to visit her with some options. 9) poor dentition, this has been a problem for years. We will ask Unique if she can connect patient with a dentist who can provide dentures. ?? Antony Myers DO Pager [phone] ?? Currently employed:??No ?? Adherence counseling:??Yes ?? [...] than once in the past 12 months):??none documented in this encounter Plan of Treatment Not on file documented as of this encounter Visit Diagnoses Diagnosis AIDS (acquired immune deficiency syndrome) ([facility])- Primary Human immunodeficiency virus [HIV] disease documented in this encounter Care Teams Sas Programmer Relationship Specialty Start Date End Date Sarah Alejo NP [address] [place] [address] PCP - General 09/20/18 documented as of this encounter
--- OUTSIDE RECORDS SUMMARY | 2023-12-04 16:38 | XMS_ITS | Encounter Summary ---
Author Organization [facility] Address [address] [place] [address] Care Team Providers Care Construction Lineman Name Role Phone Sarah Alejo TICKET SCHEDULER Primary Care Provider [phone] Encounter Details Date Type Department Care Team (Late st Contact Info) Description 03/03/2021 Specialty Pharmacy [facility] - [address] [place] [address] [place], [place] [phone] Licha Chua, [facility] Social History Tobacco Use Types Packs/Day [...] on filedocumented in this encounter Care Teams Construction Lineman Relationship Specialty Start Date End Date Sarah Alejo NP [address] [place] [address] PCP - General 09/20/18 documented as of this encounter
--- OUTSIDE RECORDS SUMMARY | 2023-12-04 16:38 | XMS_ITS | Encounter Summary ---
Author Organization [facility] Address [address] [place] [address] Care Team Providers Care Director Of Food And Nutrition Services Name Role Phone Sarah Alejo HYDRO PLANT SITE MANAGER Primary Care Provider [phone] Encounter Details Date Type Department Care Team (Late st Contact Info) Description 03/03/2021 Orders Only [facility] [address] [place], [place] [phone] Licha Chua, [facility] [...] in this encounter Care Teams Director Of Food And Nutrition Services Relationship Specialty Start Date End Date Sarah Alejo NP [address] [place] [address] PCP - General 09/20/18 documented as of this encounter
--- OUTSIDE RECORDS SUMMARY | 2023-12-04 16:38 | XMS_ITS | Encounter Summary ---
Author Organization [facility] Address [address] [place] [address] Care Team Providers Care Reed Repairer Name Role Phone Sarah Alejo MANAGER COSTING Primary Care Provider Reason for Visit * Reason Onset Date Comments Follow-up 02/27/2020 Encounter Details Date Type Department Care Team (Late st Contact Info) Description 02/27/2020 Telephone [facility] Infectious Disease - [address] [phone] Antony Myers, [address] [facility], [address] [place] [address] Follow-up Social History Tobacco Use [...] Telephone Encounter - Antony Myers DO - 02/27/2020 1343 EST I called patient again today, and [facility] I let her know that we are trying to connect with her to discuss HIV treatment options now that (hopefully) her esophageal strictures have been addressed by [facility]. I let her know I will try to call her again on Monday. documented in this encounter Plan of Treatment Not on file documented as of this encounter Visit Diagnoses Not on filedocumented in this encounter Care Teams Reed Repairer Relationship Specialty Start Date End Date Sarah Alejo NP [address] [place] [address] PCP - General 09/20/18 documented as of this encounter
--- OUTSIDE RECORDS SUMMARY | 2023-12-04 16:38 | XMS_ITS | Encounter Summary ---
Author Organization [facility] Address [address] [place] [address] Care Team Providers Care Channel Marketing Coordinator Name Role Phone Sarah Alejo GENERAL PASSENGER AGENT Primary Care Provider [phone] Encounter Details Date Type Department Care Team (Late st Contact Info) Description 12/29/2020 Lab Requisition [facility] Pathology & Laboratory Medicine - [facility] [address] [place] [address] Outr Resulting Lab, Provider Social History Tobacco [...] Associated Diagnosis Comments T CELL SUBSETS Routine 12/28/2020 14:30 EDT HIV 1 RNA QUANTITATION Routine 12/28/2020 14:30 EDT documented in this encounter Results * (ABNORMAL) HIV 1 RNA QUANTITATION (12/28/2020 14:30 EDT) HIV RNA Detection, Qual Detected( A) Undetected copies/mL 12/31/2020 14:46 EDT [facility] HIV 1 RNA Quant 56,400(H) Undetected copies/mL 12/31/2020 14:46 EDT [facility] Blood VENOUS BLOOD / Unknown 12/28/2020 14:30 EDT 12/29/2020 16:09 EDT Narrative [facility] - 12/31/2020 14:46 EDT New platform in use 09/21/2020 The quantification range of this assay is 20 IU/mL to 10,000,000 IU/mL. ??Testing was performed using the Diamond HIV test ([employer] with the diamond [employer] System. Provider Outr Resulting Lab CHEMISTRY & BLOOD GAS ORDERABLES Performing Organization Address City/State/[facility] Co de Phone Number [facility] [address] [place] [address] * (ABNORMAL) T CELL SUBSETS (12/28/2020 14:30 EDT) % CD3 90(H) 56 - 84 % 12/30/2020 15:37 [facility] % CD4 6(L) 31 - 64 % 12/30/2020 15:37 [facility] % CD8 83(H) 9 - 39 % 12/30/2020 15:37 [facility] Absolute CD3 1,133 840-2,669 Cells/uL 12/30/2020 15:37 [facility] Absolute CD4 71(L) 488-1,734 Cells/uL 12/30/2020 15:37 [facility] Absolute CD8 1,052 154-1,097 Cells/uL 12/30/2020 15:37 [facility] 4/8 Ratio 0.07(L) >=0.90 12/30/2020 15:37 [facility] Blood VENOUS BLOOD / Unknown 12/28/2020 14:30 EDT 12/29/2020 16:11 EDT Provider Outr Resulting Lab IMMUNOLOGY A ND SEROLOGY ORDERABLES [facility] [address] [place] [address] documented in this encounter Visit Diagnoses Not on filedocumented in this encounter Care Teams Channel Marketing Coordinator Relationship Specialty Start Date End Date Sarah Alejo, [address] [place] [address] PCP - General 09/20/18 documented as of this encounter
--- OUTSIDE RECORDS SUMMARY | 2023-12-04 16:38 | XMS_ITS | Encounter Summary ---
Author Organization [facility] Address [address] [place] [address] Care Team Providers Care Vp Research Name Role Phone Sarah Alejo EMBOSSOGRAPH OPERATOR Primary Care Provider [phone] Reason for Visit * Reason Onset Date Comments Follow-up 11/07/2019 Encounter Details Date Type Department Care Team (Late st Contact Info) Description 11/07/2019 Telephone [facility] Infectious Disease - [address] [phone] Antony Ramsey DO [address] [facility], [address] [place] [address] Follow-up Social History Tobacco Use [...] Addendum Note - Antony Ramsey DO - 11/07/2019 1619 EDTAddended by: ANTONY RAMSEY on: 11/07/2019 16:19 Modules accepted: Orders * Telephone Encounter - Antony Ramsey DO - 11/07/2019 1540 EDT Elva called me last week after the patient's visit and stated that the patient was willing to accept a referral to gastroenterology at [facility] which is fantastic news as she is always refused tothis in the past. Elva was also able to start her on an antidepressant (liquid) which hopefully will start to address her depression. Brittanie met with her yesterday as a home visit to give the influenza vaccine and do a safety check. It is unclear when her appointment with GI at [facility] can be scheduled but as she is willing to accept help now (we were almost to the point of a palliative care discussion as she would never accept help to improve her living situation or her health) we really have to move as soon as possible for a gastroenterology evaluation/consideration of a PEG tube placement. As we are moving away from the direction of palliative care, and to active intervention, now seeingthat her viral load is up to 29,000, will go ahead and get another genotype and add integrase inhibitor genotype testing as well. If patient is willing, and we can trust her reliably, to take a liquid formulation, will try to develop an ART regimen that does not include protease inhibitors to avoiddrug drug interactions with her seizure medications. We will also try to order a tropism assay but unclear if the lab up there can do it. documented in this encounter Plan of Treatment Not on file documented as of this encounter Visit Diagnoses Diagnosis AIDS (acquired immune deficiency syndrome) ([facility])- Primary Human immunodeficiency virus [HIV] disease documented in this encounter Care Teams Vp Research Relationship Specialty Start Date End Date Sarah Alejo NP [address] [place] [address] PCP - General 09/20/18 documented as of this encounter
--- OUTSIDE RECORDS SUMMARY | 2023-12-04 16:38 | XMS_ITS | Encounter Summary ---
Author Organization [facility] Address [address] [place] [address] Care Team Providers Care Senior Sql Dba Name Role Phone Sarah Alejo PERFORATOR OPERATOR OIL WELL Primary Care Provider [phone] Encounter Details Date Type Department Care Team (Late st Contact Info) Description 03/17/2020 Lab Requisition [facility] Pathology & Laboratory Medicine - [facility] [address] [place] [address] Outr Resulting Lab, Provider Social History Tobacco [...] Procedure Name Priority Date/Time Associated Diagnosis Comments DO NOT ORDER STANDALONE - MARVIN COVID TESTING Today 03/17/2020 9:30 EST COVID-19 TESTING Routine 03/17/2020 9:30 EST documented in this encounter Results * DO NOT ORDER STANDALONE - MARVIN COVID TESTING (03/17/2020 9:30 EST) COVID-19 rt-PCR Result Not Detected Not Detected 03/18/2020 16:02 EST [facility] Comment: This test has not been FDA cleared or approved. This test has been authorized by FDA under an EUA for use by authorized laboratories. ??This test has been authorized only for the detection of nucleic acid from SARS-CoV-2, not for any other viruses or pathogens. ??This test is only authorized for the duration of the declaration that circumstances exist justifying the authorization of emergency use of in vitro diagnostic tests for detection and/or diagnosis of COVID-19 under Section 564(b)(1) of the Act, 21 U.S.C. Section 360bbb-3(b)(1), unless the authorization is terminated or revoked sooner. ??Factsheets for healthcare providers: ??https://www.fda.gov/media/392044/download Factsheets for patients: https://www.fda.gov/media/503464/download Negative results do not preclude infection with SARS-CoV-2 virus, and should not be the sole basis of a patient management decision. Swab ENTIRE NASOPHARYNX / Unknown 03/17/2020 9:30 EST 03/17/2020 21:06 EST Provider Outr Resulting Lab MICROBIOLOGY - GENERAL ORDERABLES Performing Organization Address City/State/[facility] Co de Phone Number [facility] [address] [place] [address] * COVID-19 TESTING (03/17/2020 9:30 EST) COVID-19 rt-PCR Result Not Detected Not Detected 03/18/2020 16:22 EST [facility] Comment: This test has not been FDA cleared or approved. This test has been authorized by FDA under an EUA for use by authorized laboratories. ??This test has been authorized only for the detection of nucleic acid from SARS-CoV-2, not for any other viruses or pathogens. ??This test is only authorized for the duration of the declaration that circumstances exist justifying the authorization of emergency use of in vitro diagnostic tests for detection and/or diagnosis of COVID-19 under Section 564(b)(1) of the Act, 21 U.S.C. Section 360bbb-3(b)(1), unless the authorization is terminated or revoked sooner. ??Factsheets for healthcare providers: ??https://www.fda.gov/media/286169/download Factsheets for patients: https://www.fda.gov/media/497895/download Negative results do not preclude infection with SARS-CoV-2 virus, and should not be the sole basis of a patient management decision. Performing Lab [facility] 03/18/2020 16:22 EST [facility] Swab 03/17/2020 9:30 EST 03/17/2020 21:06 EST Provider Outr Resulting Lab MICROBIOLOGY - GENERAL ORDERABLES [facility] [address] [place] [address] documented in this encounter Visit Diagnoses Not on filedocumented in this encounter Care Teams Senior Sql Dba Relationship Specialty Start Date End Date Sarah Alejo NP [address] [place] [address] PCP - General 09/20/18 documented as of this encounter
--- OUTSIDE RECORDS SUMMARY | 2023-12-04 16:38 | XMS_ITS | Encounter Summary ---
Author Organization [facility] Address [address] [place] [address] Care Team Providers Care Banking Services Officer Name Role Phone Sarah Alejo SECTION SUPERVISOR Primary Care Provider Encounter Details Date Type Department Care Team (Late st Contact Info) Description 06/10/2020 Lab Requisition [facility] Pathology & Laboratory Medicine - [facility] [address] [place] [address] Outr Resulting Lab, Provider Social History Tobacco [...] Diagnosis Comments HIV 1 RNA QUANTITATION Routine 06/10/2020 11:30 EDT T CELL SUBSETS Routine 06/10/2020 11:30 EDT documented in this encounter Results * (ABNORMAL) HIV 1 RNA QUANTITATION (06/10/2020 11:30 EDT) HIV RNA Detection, Qual Detected( A) Undetected copies/mL 06/11/2020 14:[address] [facility] HIV 1 RNA Quant 1,007(H) Undetected copies/mL 06/11/2020 14:[address] [facility] Blood VENOUS BLOOD / Unknown 06/10/2020 11:30 EDT 06/10/2020 21:[address] [facility] - 06/11/2020 14:46 EDT The quantification range of this assay is 20 IU/mL to 10,000,000 IU/mL. ??Testing was performed on the ORLIN Ampliprep/ORLIN TaqMan HIV v2.0 ([employer] Provider Outr Resulting Lab CHEMISTRY & BLOOD GAS ORDERABLES Performing Organization Address [facility] Co de Phone Number [facility] [address] [place] [address] * (ABNORMAL) IMMUNODEFICIENCY PANEL (06/10/2020 11:30 EDT) % CD3 90(H) 62 - 87 % 06/11/2020 17:[address] [facility] % CD4 8(L) 35 - 63 % 06/11/2020 17:18 [facility] % CD8 82(H) 10 - 35 % 06/11/2020 17:18 [facility] Absolute CD4 178(L) 329-1,427 Cells/uL 06/11/2020 17:[address] [facility] Blood VENOUS BLOOD / Unknown 06/10/2020 11:30 EDT 06/10/2020 21:36 EDT Provider Outr Resulting Lab IMMUNOLOGY A ND SEROLOGY ORDERABLES Performing Organization Address City/[facility]/ZIP Co de Phone Number [facility] [address] [place] [address] documented in this encounter Visit Diagnoses Not on filedocumented in this encounter Care Teams Banking Services Officer Relationship Specialty Start Date End Date Sarah Alejo NP [address] [place] [address] PCP - General 09/20/18 documented as of this encounter
--- OUTSIDE RECORDS SUMMARY | 2023-12-04 16:38 | XMS_ITS | Encounter Summary ---
Author Organization [facility] Address [address] [place] [address] Care Team Providers Care Epoxy Fabrication Supervisor Name Role Phone Sarah Alejo TAPPER BIT Primary Care Provider Reason for Visit * Reason Onset Date Comments Medications Refill 01/27/2021 Encounter Details Date Type Department Care Team (Late st Contact Info) Description 01/27/2021 Refill [facility] Infectious Disease - [facility] [address], [place] [id number] Antony Myers, DO [address] [facility], [address] [place] [address] Medications Refill Social History Tobacco [...] by mouth every 12 hours. 60 Tablet 01/28/2021 03/03/2021 documented in this encounter Plan of Treatment Not on file documented as of this encounter Visit Diagnoses Not on filedocumented in this encounter Discontinued Medications Medication Sig Discontinue Reason Start Date End Da te lamiVUDine (EPIVIR) 10 mg/mL solution 15 ml ( 150 mg) twice daily Order modification 08/09/2017 01/27/2021 documented as of this encounter Care Teams Epoxy Fabrication Supervisor Relationship Specialty Start Date End Date Sarah Alejo NP [address] [place] [id number] PCP - General 09/20/18 documented as of this encounter
--- OUTSIDE RECORDS SUMMARY | 2023-12-04 16:38 | XMS_ITS | Encounter Summary ---
Author Organization [facility] Address [address] [place] [address] Care Team Providers Care Animal Physiology Teacher Name Role Phone Melo Sarah Cruz POLYMERIZATION ENGINEER Primary Care Provider [phone] Encounter Details Date Type Department Care Team (Late st Contact Info) Description 07/12/2021 Lab Requisition [facility] Pathology & Laboratory Medicine - [facility] [address] [place] [address] Outr Resulting Lab, Provider Social History Tobacco [...] Associated Diagnosis Comments T CELL SUBSETS Routine 07/12/2021 12:45 EDT HIV 1 RNA QUANTITATION Routine 07/12/2021 12:45 EDT documented in this encounter Results * HIV 1 RNA QUANTITATION (07/12/2021 12:45 EDT) HIV RNA Detection, Qual Undetected Undetected copies/mL 07/15/2021 15:09 EDT [facility] Blood VENOUS BLOOD / Unknown 07/12/2021 12:45 EDT 07/12/2021 22:00 EDT Narrative [facility] - 07/15/2021 15:09 EDT The quantification range of this assay is 20 IU/mL to 10,000,000 IU/mL. ??Testing was performed using the Diamond HIV test ([employer] with the diamond Newvem0 System. Provider Outr Resulting Lab CHEMISTRY & BLOOD GAS ORDERABLES Performing Organization Address City/[facility] Co de Phone Number [facility] [address] [place] [address] * (ABNORMAL) T CELL SUBSETS (07/12/2021 12:45 EDT) % CD3 90(H) 56 - 84 % 07/13/2021 15:09 [facility] % CD4 7(L) 31 - 64 % 07/13/2021 15:09 [facility] % CD8 83(H) 9 - 39 % 07/13/2021 15:09 [facility] Absolute CD3 1,802 840-2,669 Cells/uL 07/13/2021 15:09 [facility] Absolute CD4 134(L) 488-1,734 Cells/uL 07/13/2021 15:09 [facility] Absolute CD8 1,664(H) 154-1,097 Cells/uL 07/13/2021 15:09 [facility] 4/8 Ratio 0.08(L) >=0.90 07/13/2021 15:09 [facility] Blood VENOUS BLOOD / Unknown 07/12/2021 12:45 EDT 07/12/2021 21:33 EDT Provider Outr Resulting Lab IMMUNOLOGY A ND SEROLOGY ORDERABLES Performing Organization Address [facility] Co de Phone Number [facility] [address] [place] [address] documented in this encounter Visit Diagnoses Not on filedocumented in this encounter Care Teams Animal Physiology Teacher Relationship Specialty Start Date End Date Sarah Alejo, [address] [place] [address] PCP - General 09/20/18 documented as of this encounter
--- OUTSIDE RECORDS SUMMARY | 2023-12-04 16:38 | XMS_ITS | Encounter Summary ---
Author Organization [facility] Address [address] [place] [address] Care Team Providers Care Regional Branch Manager Name Role Phone Sarah Alejo DIRECT SERVICE PROFESSIONAL Primary Care Provider [phone] Encounter Details Date Type Department Care Team (Late st Contact Info) Description 10/19/2020 Orders Only [facility] Infectious Disease - [address] [id number] Antony Myers, DO [address] [facility], [address] [place] [id number] Social History Tobacco Use Types Packs/Day Years [...] on filedocumented in this encounter Care Teams Regional Branch Manager Relationship Specialty Start Date End Date Sarah Alejo DIRECT SERVICE PROFESSIONAL [address] [place] [id number] PCP - General 09/20/18 documented as of this encounter
--- OUTSIDE RECORDS SUMMARY | 2023-12-04 16:38 | XMS_ITS | Encounter Summary ---
Author Organization [facility] Address [address] [place] [address] Care Team Providers Care Claims Adjuster Crop Name Role Phone Sarah Alejo Nancy LIEUTENANT FIRE FIGHTER Primary Care Provider [phone] Reason for Visit * Reason Onset Date Comments Medications Refill 03/03/2021 Encounter Details Date Type Department Care Team (Late st Contact Info) Description 03/03/2021 Refill [facility] Infectious Disease - [facility] [address] [place], [place] [phone] Antony Myers, DO [address] [facility], [address] [place] [address] Medications Refill Social History Tobacco [...] by mouth every 12 hours. 60 Tablet 5 03/03/2021 08/23/2021 documented in this encounter Progress Notes * Licha Chua, [facility] - 03/03/2021 [address] Myers that Josiane will stay on the current regiment (dolutegravir 50mg BID, tenofovir alafenamide 25mg daily, lamivudine 150mg BID). He okay'ed 6 month refill of lamivudine for today. Dolutegravir and TAF have refills on file already. Licha Brown, PharmD Ambulatory Pharmacist Clinician [facility] Specialty Pharmacy 03/03/2021 documented in this encounter Miscellaneous Notes * Telephone Encounter - Josiane Lawson - 03/03/2021 1023 EST Medication Request Medication: Lamivudine Medication refill: Yes Medication dose change: No Refill due: 03/03/2021 Pharmacy: [facility] Next appt: Visit date not found documented in this encounter Plan of Treatment Not on file documented as of this encounter Visit Diagnoses Not on filedocumented in this encounter Discontinued Medications Medication Sig Discontinue Reason Start Date End Da te lamiVUDine (EPIVIR) 150 mg tablet Take 1 Tablet by mouth every 12 hours. Reorder 01/28/2021 03/03/2021 documented as of this encounter Care Teams Claims Adjuster Crop Relationship Specialty Start Date End Date Sarah Alejo NP [address] [place] [address] PCP - General 09/20/18 documented as of this encounter
--- OUTSIDE RECORDS SUMMARY | 2023-12-04 16:38 | XMS_ITS | Encounter Summary ---
Author Organization [facility] Address [address] [place] [address] Care Team Providers Care Dementia Program Director Name Role Phone Sarah Alejo PRINT MANAGER Primary Care Provider [phone] Reason for Visit * Reason Comments Follow-up Encounter Details Date Type Department Care Team (Late st Contact Info) Description 10/21/2019 10:30 EDT Telemedicine [facility] Infectious Disease - [address] [id number] Antony Ramsey, DO [address] [facility], [address] [place] [address] Symptomatic HIV infection ([facility]) (Primary Dx) Social History [...] Dispensed Refills Start Date End Da te sulfamethoxazole-trimethopr im (BACTRIM) 200-40 mg/5 mL suspension Take 10 mL by mouth daily. 300 mL 5 10/21/2019 sulfamethoxazole-trimethopr im (BACTRIM) 200-40 mg/5 mL suspension Take 10 mL by mouth daily. 300 mL 11 10/21/2019 documented in this encounter Progress Notes * Antony Ramsey, DO - 10/21/2019 1030 EDT Images from the original note were not included. Division of Infectious Disease Follow up/Progress Note Telephone visit 02/18/20 10:00 THIS IS A PHONE VISIT. PT WAS AT HER HOME, I WAS IN MY OFFICE. The concept of ???Telemedicine?? has been described [...] care as described in the progress note. 21 October 2019 ?? The concept of ???Telemedicine?? has been described [...] in patient???s medical or mental health care. ? I spent a total of 30 minutes with Josiane Pacheco today and 30 minutes of that time was spent in counseling and coordination of care as described in the progress note. ?? HPI:??Ms.??Junior??is a 64y.o.??female??with history significant for HIV/AIDS, recalcitrant seizure disorder, severe depression and esophageal dysmotility??who presents with routine HIV??follow up.?Her last visit was in?? July 2019 via phone call. ??We are trying to see her frequently to continue to work on the challenge of her adherence with her ART in the setting of her depression and esophageal dysmotility. ??Most recent labs in August 2019 unfortunately show a HIV viral load of that is now up to 28,000, and a CD4 count down to 51. ?? HIV diagnosed in 1990??and most of her care for HIV occurred down in [facility] until about 2 years ago. ?? Pt on Dolutegravir 50mg BID,??liquid??3TC??150mg BID??and??25 mg??TAF??daily, a regimen that was slected for the small size of tablets of availability of liquid formulation due to difficulty in swallowing in past.?Dolutegravir is BID as her seizure medications may lower levels. ?She is also on bactrim suspension for PCP prophy but unfortunately, due to some type of breakdown, patient is taki ng neither her liquid 3TC nor her liquid Bactrim. ?? Pt cared for at both [facility] and [facility] in past with difficulties in adherence. ??A lengthy review of ID notes from [facility] indicate that patient would frequently have viremia, genotypes always showed wild-type virus so it was presumed she just wasn't taking her meds. ??After years in [facility] system, she returned to [facility] HIV clinic in 2017. ?? Her main difficulty for years in adhering to her ART was swallowing difficulties. This problem persists and appears to be worsening. ??She continues to be incredibly nonspecific and tangential when we try to clarify exactly how much of her ART she is actually able to keep down but clearly states that pills keep getting stuck which is been an ongoing concern for all her medications for the past few years. ?? She had two break-through seizures in past??year. ??She met with her neurologist at [facility] in 2019 who (by the patient's report) recommend considering moving to an assisted living/nursing home type setting which upset pt??and she is now is considering moving her neurology care back to [facility] but she is taken no action to do this. ? She seemed more down today compared to past phone calls mainly due to her esophageal difficulties. In addition, patient seems frustrated with her dyspnea on exertion, especially when walking stairs which are a challenge to her. She also complains of my knee shakingwhen trying to walk upstairs andnotes that is getting harder for her to live in the apartment due to the stairs. On a positive note, she seems to be getting along with her neighbors better compared to last year. ?? We have been thinking hard about better ART regimens for the patient that would be completely liquid and ideally get her undetectable again. Case discussed at length with [facility] pharmacist in the past spring and we were considering liquid darunavir, ritonavir, raltegravir, and emtricitabine-tenofovir but unfortunately these would have drug drug interactions with her seizure medications, most specifically Eslicarbizepine. Case discussed with her neurologist who stated she could consider changing her antiseizure medications if this made treating her HIV more feasible. However, when discussing casewith patient in the spring, patient adamantly refused to make any changes in her seizure medications as is been such a long road to get her therapeutic. In addition, patient does not seem to want to return to the new neurologist in [facility] and has been always reluctant to return to neurology at [facility] so we were in the situation of leaving her alone and hope that she could at least get a majority of her medications past her esophagitis but with a viral load of 28,000 now, and the followingCD4 count we are going to have to be more proactive if patient wants to get HIV under control. ?? Patient admits to what she estimates to be a 40 pound weight loss in the past 6 months due to poor p.o. intake. She admits to nausea and frequently vomits after she eats even a small meal. No fevers,chills or night sweats. She does admit to some degree of dyspnea on exertion but no chest pain. Review of Systems: 10-point review of systems is negative except as noted in the HPI. ?? Past Medical History: Epilepsy with refractory seizures and required surgery for partial lobectomy, followed by [facility]??in past, now by neurology at [facility] Cervical dysplasia Obesity HLD Esophageal stricture, requiring dilation??x 2 in past at [facility] which pt describes as a negative experience Herpes zoster 2011 Anal fissures ? Etoh abuse Poor adherence with ART??chronically, largely to 2 esophageal motility disorder and underlying depression. Severe depression Active smoker Past Surgical History:?? 2017??Craniotomy for seizures complicated by subdural hematoma Shira botox injections for headaches [place] x 3, last one at [facility] 2014 where she had polyps removed Epiglottis surgery [...] Social History Tobacco:??down to about a pack every 2 weeks. Alcohol:??There have always been questions of alcohol use in the past, patient denies current drinking stating beer is too heavy for me to carry from the store Recreational drugs:none Herbal:none Professional:??Not working Relationships / Living Situation:??Living alone, seems to have little to no local support. ??Son lei in [place]??but contact seems very limited??which is discouraging to patient and she is noteven sure where he is now. Sexual:??Not currently sexually active Exercise:??Seems to have good exercise regimen, she lifts weights in her apartment. Travel:??From [place],??went to college in [place],??then went to [place] and now in [place]. ??[place] on vacation. ?? Animal exposure:??no pets [...] VL 28,000 August 2019 CD4 51 ?? Assessment and Plan: ?? 1) HIV ?? - Currently on??Dolutegravir 50mg po BID,??liquid??3TC??150 mg twice daily (for unclear reasons, patient states she stopped her 3TC),??25mg??TAF??daily,??was??doing very well briefly??in 2018??on this new regimen but she is having significant difficulties since then.?Her VL had??been??<??20 in??Jul 2017 and Oct 2017 with a slight??blip to 89 in Mar 2018.??Since then, her CD4 is falling steadily down 51 and VL up to 28,000. Her HIV regimen is clearly failing secondary to her inability to consistently take it. ?? 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 ??In reviewing old genotypes from [facility], she had always had wild- type in the past. ??Her most recent one checked was in 2012. ??Patient is adamant that she would never go back to her old formulations of ART and is clear due to her esophageal dysmotility, she is not consistently taking any of her medications atthis point. ?? Of note, pt refused to follow up with GI in [facility] to address esophageal concerns in the past despiteour trying to convince her to do this and we don't have GI locally and at this point, I dont think she would be willing to see one anyway.?The patient's case raises the question about whether [...] point of is the placement of a f eeding tube if she is willing to go through this. ?? - Last VL in??August 2019 28,000 - Last CD4 count??August 2019 51 - OI prophylaxis:??Keep up liquid bactrim. For some reason, patient is not on her liquid Bactrim sowe called Keisha today to fix this problem. - Compliance:??It continues to be very difficult for pt to quantify how many doses of ART she cannot tolerate due to GI concerns but it appears she is globally doing worse recently. ??Past attempts at getting the patient to keep a diary have failed. - Sexual activity:??None - HBV/HCV: ??Hep C Ab neg 2014, hep B surface ab neg/hep B surface ag neg. ? - Dental exam: ?Patient was unhappy with prior dental care in the past and has not seen a dentist in at least the past year. - PCM??is??at [facility]??but pt not seeing them routinely. Last visit was fall 2018. -A possible all liquid regimen could include ritonavir, darunavir, raltegravir, emtricitabine and tenofovir but the protease inhibitors have significant drug drug interactions with her seizure medications and she is not willing to change her seizure medications so were kind of stuck just staying onher current course. Another option as she is losing weight is to consider a feeding tube at some point as watchful waiting is clearly not working. We will try to discuss this with the patient's primary care provider at [facility] internal medicine and neurology again (with regards to other options for seizure medications) but it sounds unclear if the patient would be willing to accept this over having her esophagitis dilated again. ?? 2) Health maintenance - Cholesterol:??LDL 117 in Mar 2018 - Diabetes:??FSBS 95 in Mar 2018 - Colonoscopy:??2014??with tubular adenoma so recommended a repeat in 2019.?Pt will bring this up with PCM - Immunizations:Prevnar 13 in 2012, pneumovax 2009??and 2019. ??Flu 2019. ??Tdap in??2019.?She is non hep B immune so may benefit from the new hep B vaccine in the future??when it becomes avail. Needs Shingrix #2 with next [id number]??visit. - Pap:??Last pap??May??2019, normal by report - Mammogram:In 2019, normal by report ?? 3) Seizures that have been recalcitrant to medications and required a craniectomy-partial lobectomyat [facility] that was complicated by a postop bleed several years ago. She is followed by neurologyin??[facility]'s now??but this has not been a good experience for her per her report. ??The patient wouldlike to return to her neurologist down in [facility] but she never follows through and schedules theappointment. She left the [facility] system due to the distance but I generally feel she be better off if she returned to it as she seemed to like her neurologist down there and we do not have gastroenterology up here. ?? 4)??Depression,??is now her largest problem. ??She sees PCM in [facility]'s for this but not consistently.? She continues to complain about how she does not like her apartment, but she is unwilling to move. She will not see psychiatry routinely. She appears to have no social support in the community. Brittanie will try to connect her with [facility] to see if they could have some some options of support locally. Transportation is a challenge as well as patient does not have a car and relies heavily on Medicaid rides in the past which for some reason she no longer has access to. [facility] can assist with this as well. ?? 5)??PCM,??seen at[facility]. I left a message with her new PCM Elva to see if we could connectand talk about patient's big picture. We have asked the patient to call her PCM and set up a follow-up appointment which I later learned that she did indeed do and this will be on 29 October. It is going to take a multidisciplinary effort to get patient back on track. ?? 6) Active smoking,??pt??not interested in quitting now. ?? 7) Frequent??vomiting and patient with a known history of esophageal strictures. ??In reviewing records, she has been treated with esophageal dilatation several times in 2016 at [facility] and did notlike the experience. ??Patient refuses to return to [facility] GI and there are no GI resources locally. Patient's unwillingness to look at other treatment options for her esophageal dysmotility presents a marked barrier to her success in controlling both her seizures and her HIV. We will try to discuss this with her primary care provider. Again, with weight loss, it almost seems like she is at the point of needing a feeding tube but she will need to see GI at some point about this. ?? It has been a pleasure??talking to Ms. Pacheco over the phone today. ?? Antony Ramsey DO Pager [phone] ?? Currently employed:??No ?? Adherence counseling:??Yes ?? [...] Addendum Note - Antony Ramsey DO - 10/21/2019 1030 EDTAddended by: ANTONY RAMSEY on: 10/21/2019 16:22 Modules accepted: Orders documented in this encounter Plan of Treatment Not on file documented as of this encounter Visit Diagnoses Diagnosis Symptomatic HIV infection ([facility])- Primary Human immunodeficiency virus [HIV] disease documented in this encounter Discontinued Medications Medication Sig Discontinue Reason Start Date End Da te sulfamethoxazole-trimetho prim (BACTRIM,SEPTRA) 200-40 mg/5 mL suspension Take 10 mL by mouth daily. Reorder 08/09/2017 10/21/2019 documented as of this encounter Care Teams Dementia Program Director Relationship Specialty Start Date End Date Sarah Alejo NP [address] [place] [address] PCP - General 09/20/18 documented as of this encounter
--- OUTSIDE RECORDS SUMMARY | 2023-12-04 16:39 | XMS_ITS | Encounter Summary ---
Author Organization [facility] Address [address] [place] [address] Care Team Providers Care Platform Engineer Name Role Phone Bryce Dobbins DO Primary Care Provider [phone] Reason for Visit * Reason Comments New Patient Visit Encounter Details Date Type Department Care Team (Late st Contact Info) Description 03/29/2017 15:00 EST Office Visit [facility] - [address] [address] Josiane Hopkins MD AIDS (acquired immune deficiency syndrome) (CMS-HCC) (HCC-CMS) (Primary Dx); Cough Social History Tobacco Use Types Packs/Day Years Used Date Smoking Tobacco: Former Smokeless Tobacco: Never Tobacco Cessation:Counseling Given: No Alcohol Use Standard Drinks/Week Comments Yes 0 [...] documented in this encounter Progress Notes * Josiane Hopkins MD - 03/29/2017 1500 EST [facility] DOS: 03/29/2017 Last seen: 09/12/2007 Subjective: Josiane Pacheco is sent by Dr Bryce Dobbins to establish care for her HIV/AIDS. She is known to me as she was seen in the [facility] in [facility] in 10/2008. she received all of her medical care at [facility] it made nosense for her to be followed in the [facility] in [facility]. She has been followed by Dr Drew Heaton in the ID clinic at [facility] since that time. She recently decided to move all of her health care closer to home so she wants to establish at the [facility] in [facility] for ongoing HIV care. She was last seen by Dr. Heaton 04/2016. She was supposed to have blood work at that time but she never went to have the blood drawn as she said the lab by the time she left the office. The notes say she was supposed to have blood work done closer to home but does not sound like that was ever done until recently. She says that since she was last seen by me she is continued on antiretroviral therapy, although she does admit to having trouble taking her medications regularly because of swallowing difficulties. She has had no known documented resistance. She denies any HIV related illnesses since she was last seen. She says that she has been on her present HAART regimen for about a year (RTV/TDF/ABC/3TC/DRV). Although her last CD4 count was <200 she has not been on Bactrim for pneumocystis prophylaxis. At present she is not feeling well as she has had a cough for the past 2 weeks. She also complains of rhinorrhea, nasal congestion, and some mild sore throat. The cough is productive of scant amount of thin fluid. The cough is worse when she lies on her right side. She denies chest pain or shortness of breath. Denies fever or chills. She has had no known ill contacts. Allergies she says she is allergic to some seizure medications but she cannot tell me the name Medications were reviewed and documented in prism. HAART regimen as mentioned above PMH HIV positive since 1990. She has been on numerous different regimens in the past. Does not sound like her medications were ever changed to be because of failure or intolerance. She did have medications adjusted because of drug interactions with her seizure medications. When she was here in 2007 shewas on ATV/ABC/3TC/RTV. She has been on her present regimen for just about a year. Notes from Dr. Heaton state that the patient has had repeated resistance testing because of elevated viral load but has never had any documented resistance mutations so the presumption was that she was not taking her medications as prescribed. She has a long history of epilepsy which is been refractory. She has been followed by neurology at [facility]. She has even had surgery for refractory seizures but has continued to have seizures followingthat procedure. Craniotomy complicated by subdural hematoma History of bacterial pneumonia History of cervical dysplasia History of tubular adenoma of the colon Depression. She has a history of suicide attempt in the past Obesity Hyperlipidemia No history of STI's History of esophageal stricture requiring repeated dilatation Zoster 11/2010 History of anal fissure PSH Cholecystectomy Craniotomy for seizure control Botox injections for headaches Had colonoscopy x 3 (Last colo at [facility]) Epiglottis surgery ??3 Hemorrhoid banding 2013 SH Lives alone in [facility] Reports that she had quit tobacco and then restarted but with her recent illness she has been unable to tolerate cigarettes She says she uses EtOH about twice a week (3 beers) (notes from [facility] mention EtOH abuse interfering with adherence) Uses marijuana but not daily She has a 20 [id number] son, Josh, who lives in [place] Her mother in April of last year She says she lifts weights daily Says she walks on a regular basis Last sexually active this past fall but reports that she always uses condoms Has [facility], Medicare/ Medicaid No pets FH But she knows her father is still living in his late 80s Mother 2017 of lung cancer 1 sister in good health ROS Pain with defecation secondary to a fissue Recent ophtho appt Has not dentist in > 1 yr Pruritis - using triamcinolone Wt was down to 180 but gained weight PE: Wt 87 kg (191 lb 12.8 oz) Patient alert but poor historian. Nontoxic and in no acute distress but did have repeated wet coughthroughout the visit. Was blowing her nose repeatedly throughout the visit Pupils dilated, conjunctivae pink without hemorrhages, anicteric sclera, patchy erythematous macules on the buccal mucosa and palate. No white exudate. 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 Fair dentition. No cervical or supraclavicular lymphadenopathy Lungs with coarse rhonchi and wheezing at the bases bilaterally Heart with a regular rhythm, not tachycardic, no murmur appreciated Abdomen is obese + BS, soft, NT no HSM or mass appreciated Extremities are without edema, no embolic lesions, no cyanosis or clubbing No axillary lymphadenopathy Rest of exam was deferred as the patient had to leave to get her Medicaid ride Labs: From 01/17/2017 HIV PCR 25,460 WBC 4.1 hemoglobin 15.7 PLTs 164k CD4 = 64 (6%) Electrolytes unremarkable Glucose 109 Creatinine 0.78 AST/ALT 42/33 alkaline phosphatase 63 Lipid panel: Triglycerides 167 HDL 76 LDL 152 TSH 2.11 UA with trace blood, and trace protein, 0-3 RBC, no leukocytes, 4-6 epithelial cells Review of labs via care everywhere notable for CD4 <200 since 02/10/2015 Most of her HIV PCR results were elevated anywhere from 300 copies to 25,000 copies. Viral load is low as 59 copies 05/2013. 11/2015 HIV PCR <20, 02/2016 HIV PCR <20. All other viral loads with detectable virus Last Pap 02/2013 was normal (had normal Pap 2010 and 2012 Mammogram 02/2014 Last colonoscopy ?Date. Had colonoscopy at [facility] 2010 which was significant for tubular adenoma HB s Ag neg, HBs Ab neg, HCV Ab neg - 2014 PPD neg 2012 Flu vaccine 02/2016 A/P AIDS with CD4 count <200 but no history of opportunistic infection. Per the records from [facility] the patient has been nonadherent with her HAART. She says that she has been taking her HAART regularly since her prescriptions were refilled by Dr. Dobbins. She says she was off medication for >1 month as she said her prescriptions were not being refilled by [facility]. If she is truly been taking her medications regularly she should have repeat blood work with HIV PCR and chemistries including phosphorus. We will need to try to get more information from [facility] regarding how she ended up on her present regimen. It does sound like she is having some issues swallowing large pills so I surely am concerned about the Prezista. I would have thought it would have been easier for her to swallow the Reyataz capsules so unclear why she was changed from Reyataz to Prezista. Does not sound like she has had any documented resistance. If he truly is having difficulty swallowing large pills we may need to change her to a regimen with smaller pills. [facility] Unclear if she has NNRTI resistance. As it is really unclear why she has decided to transfer her care I would not be surprised if she does not return to [facility] for her HIV care in the future. Also unclear why the patient has not been on Bactrim for pneumocystis prophylaxis. She has no allergy to sulfa. Her CD4 count has been <200 since 2014. As she has difficulty swallowing large tablets most likely would need to give her a single strength daily or could give her the equivalent dose to suspension formulation. Cough ??2 weeks. Doubt we are dealing with influenza in the absence of any fever. She does have rhinorrhea so I am concerned about viral respiratory illness. Persistent cough in a patient with a CD4 count <200 on no pneumocystis prophylaxis raises concern for pneumocystis. Would like her to havea chest x-ray and an O2 sat.. She is not acutely ill or in any respiratory distress at the present time so I do not think she needs to go to the ED. Instructed her however that she needs to go to theED for evaluation if she develops shortness of breath, chest pain, fevers or chills. Await results of chest x-ray and O2 sat to determine the need for further evaluation. Seizure disorder -very complicated history of uncontrolled seizures. Unfortunately she is transferring her neurology care to a new neurologist. Stressed the fact that she needs to ensure that her past records are sent to him as she has had a very complicated history Depression -she is still grieving the loss of her mother but she does not think her depression is worse. Denies suicidal ideation Anal fissure unable to evaluate -today but will need to examine at a future visit Health maintenance -not sure that I have a complete immunization history. She was not immune to hepatitis B on her serologies in 2014. Unclear if she is received immunization since that time. I do not see any record of hepatitis A serology. She is HCV negative. PPD negative in 2012 and no risk factors for TB exposure. She has a history of cervical dysplasia but last 3 Paps (2010, 2012, [address] Dobbins is referring her to [place] for follow-up. She refuses to see the dentist that she had a bad experience the last time she was there. She has a history of tubular adenoma on colonoscopy in 2010 and I do not see any records of it being repeated at [facility] but she may have hadit repeated closer to home so we will need to investigate this further. Last mammogram in her outside records was 2014 but again she may have had a mammogram more recently at [facility]. She had a primary care physician here in [facility] but he is since retired. [facility]. Unclear if those were transferred to Dr. Dobbins. I do not have any record that she is received Prevnar or an updated Pneumovax. Unclear if she received a flu vaccine this season. She did have a Tdap in 2008. REC Continue present HAART repeat blood work with HIV PCR, CMP, phosphorus Check chest x-ray and O2 sat Need to obtain additional history regarding prior HAART Need to obtain records of last colonoscopy and mammogram Need to obtain immunization records documented in this encounter Plan of Treatment Not on file documented as of this encounter Visit Diagnoses Diagnosis AIDS (acquired immune deficiency syndrome) ([facility])- Primary Human immunodeficiency virus [HIV] disease Cough documented in this encounter Historical Medications * This list may reflect changes made after this encounter. Medication Sig Dispensed Refills Start Date End Date clonazePAM (KLONOPIN) 1 mg tablet Take 1 mg by mouth 2 times daily. hydrOXYzine (ATARAX) 25 mg tablet Take 25 mg by mouth 2 times daily. 02/03/2021 meloxicam (MOBIC) 7.5 mg tablet Take 7.5 mg by mouth daily as needed for Pain. 02/03/2021 eslicarbazepine (APTIOM) 400 mg tablet Take 800 mg by mouth 2 times daily. 02/03/2021 lacosamide (VIMPAT) 200 mg tablet Take 200 mg by mouth every 12 hours. 02/03/2021 darunavir (PREZISTA) 800 mg tablet Take 800 mg by mouth daily. 07/07/2017 abacavir-lamiVUDine (EPZICOM) 600-300 mg per tablet Take 1 Tab by mouth daily. 07/07/2017 tenofovir (VIREAD) 300 mg tablet Take 300 mg by mouth daily. 07/07/2017 ritonavir (NORVIR) 100 mg capsule capsule Take 100 mg by mouth daily. 07/07/2017 added in this encounter Care Teams Platform Engineer Relationship Specialty Start Date End Date Bryce Dobbins DO [address] [place] [address] PCP - General 03/28/17 03/15/18 documented as of this encounter
--- OUTSIDE RECORDS SUMMARY | 2023-12-04 16:39 | XMS_ITS | Encounter Summary ---
Author Organization [facility] Address [address] [place] [address] Care Team Providers Care Workers Compensation Consultant Name Role Phone Unavailable Primary Care Provider Unavailabl e Encounter Details Date Type Department Care Team (Latest Contact Info) Description 12/09/2013 13:18 EDT - 12/09/2013 23:59 EDT Hospital Encounter [address] [address] Unknown, Provider, Discharge Disposition: Home or Self Care Social History Tobacco Use Types Packs/Day Years Used Date Smoking Tobacco: Never Assessed Sex and Gender Information Value Date Recorded Sex Assigned at Not on file Gender Identity Not on file Sexual Orientation Not on file documented as of this encounter Discharge Disposition Disposition Code Departure Means Destination Home or Self Fdc documented in this encounter Plan of Treatment Not on file documented as of this encounter Visit Diagnoses Not on filedocumented in this encounter
--- OUTSIDE RECORDS SUMMARY | 2023-12-04 16:39 | XMS_ITS | Encounter Summary ---
Author Organization [facility] Address [address] [place] [address] Care Team Providers Care Nursing Technician Name Role Phone Bryce Dobbins Primary Care Provider [phone] Reason for Visit * Reason Comments Follow-up Encounter Details Date Type Department Care Team (Late st Contact Info) Description 08/09/2017 10:30 EDT Office Visit [facility] - [address] [address] Josiane Hopkins MD AIDS (acquired immune deficiency syndrome) ([facility]) (Primary Dx); Lower abdominal pain; Rash Social History Tobacco Use Types Packs/Day Years [...] Dispensed Refills Start Date End Da te sulfamethoxazole-trimethop rim (BACTRIM,SEPTRA) 200-40 mg/5 mL suspension Take 10 mL by mouth daily. 300 mL 5 08/09/2017 10/21/2019 tenofovir alafenamide fumarate (VEMLIDY) 25 mg tablet Take 25 mg by mouth daily. 30 Tab 5 08/09/2017 10/18/2021 lamiVUDine (EPIVIR) 10 mg/mL solution 15 ml ( 150 mg) twice daily 900 mL 5 08/09/2017 01/27/2021 dolutegravir 50 mg tablet Take 1 Tab by mouth 2 times daily. 60 Tab 5 08/09/2017 10/18/2021 documented in this encounter Progress Notes * Josiane Hopkins MD - 08/09/2017 1030 EDT [facility] DOS: 08/09/2017 Last seen: 06/14/2017 Subjective: Josiane presents for reevaluation of her HIV disease/AIDS. After her last visit we made a plan to start her on Bactrim suspension. She tolerated the Bactrim for 2 weeks so she started a new HAART regimen ~ 07/07. She is having no problems swallowing the medications. She says that she has not missed any doses and feels that she is tolerating the medications well. 2 nights ago developed crampy abd pain - originally localized to mid abd. She has never had any episodes of abd pain like this before. No nausea or vomiting. No diarrhea. Denied using ETOH that day. Happened ~ 2 hrs after eating. Had some chills but no documented fever. Had residual discomfort yesterday but much less severe that when it started. She still has some abdominal complaints today. C/O bloating. C/O pain in lower quadrant bilaterally. She has not been sexually active in about a month but practiced safer sex. No vaginal DC. No urinary complaints. No other illness since last seen Saw her PMD last week for FU visit No other acute complaints today Under stress as went to [place] to see her son who had broken his collar bone, but despite beingthere all day she was never able to connect with him. They are not talking at present. Son blocked her on facebook. Her partner, Fabio, was the one who took her to [place] but it sounds like they are no longer together She denies worsening depression or suicidal ideation but is going to see the therapist, Elva Rodriguez, tomorrow in [place] ROS - 10 point ROS was performed and is significant for the findings mentioned above and for the follwoing Lifting weights everyday Walking regularly Sleeping ok Appetite ok Completing living will (aunt is designee but she is in her 70's) Occasional cough but denies CP or SOB HAs w/o change Poor vision but cannot afford glasses No oral lesions. No worsening swallowing sx Still with pruritis but thinks that the rash is better. Noted a hyperpigmented lesion on her left shoulder area - not pruritic or raised Allergies she says she is intolerant to some seizure medications but she cannot tell me the name Medications were reviewed and documented in prism. HAART regimen: Dolutegravir/3TC/TAF She is also on Bactrim suspension 10 cc daily PMH HIV positive since 1990. She has been on numerous different regimens in the past. Does not sound like her medications were ever changed to be because of virologic failure. She did have medications adjusted because of drug interactions with her seizure medications and because of intolerance. When she was here in 2007 she was on ATV/ABC/3TC/RTV. She has been on her [...] She has been followed by neurology at [facility]. She has even had surgery for refractory seizures but has continued to have seizures followingthat procedure. Craniotomy complicated by subdural hematoma History of bacterial pneumonia x 2 History of cervical dysplasia History of tubular adenoma of the colon Depression. She has a history of suicide attempt in the past Obesity Hyperlipidemia No history of STI's History of esophageal stricture requiring repeated dilatation Zoster 11/2010 History of anal fissure ? ETOH abuse [facility] Cholecystectomy Craniotomy for seizure control Botox injections for headaches Had colonoscopy x 3 (Last colo at [facility] 2013-I can see that she had 2 polyps removed. Pathology from11/2013 is significant for fragments of a tubular adenoma Epiglottis surgery ??3 Hemorrhoid banding 2013 REGGIE Lives alone in [facility] Smokes <1/2 ppd Recent partner (Fabio - who she has known for 19 yrs and who recently came back into her life) - they are no longer together Last sexually active about a month ago but practiced safer sex Using ETOH once a week ( 2 beers) No marijuana Denies other drug use She has a 20 [id number] son, Josh, who lives in [place] Her mother in April 2016 She says she lifts weights daily Says she walks on a regular basis Has [facility], Medicare/ Medicaid No pets FH she knows her father is still living and in his late 80s, but does not know his health history Mother 2016 of lung cancer 1 sister in good health PE: Patient alert. Nontoxic, no acute distress, comfortable on room air. Occasional cough during the visit. Affect not depressed Pupils equal, anicteric sclerae, conjunctivae pink No oral lesions. No cervical or supraclavicular adenopathy Lungs - with wheeze in right anterior lung field Heart - regular, tachycardic, no murmur abd - + BS, soft, tender to palpation over the bladder, no mass Ext - no edema Skin - irregular hyperpigmented lesion in the left supraclavicular region. Not raised. Multiple wart like lesions om UEs bilat. Appear as small ( 0.5 cm) firm keratotic nodules. SHe has 2 similar lesion on her left ankle and rare lesion on her posterior trunk Very dry skin with evidence of excoriations on her UEs bilat. Labs: 08/02/2017: CHemistries signif for: Na 131 glc nl Cr 0.71 AST/ALT 45/41 HIV PCR 20 05/02/2017: CD4 = 73 (5.6%) Review of labs via care everywhere notable for CD4 <200 since 02/10/2015 Most of her HIV PCR results were elevated anywhere from 300 copies to 25,000 copies. Viral load wasas low as 59 copies 05/2013. 11/2015 HIV PCR <20, 02/2016 HIV PCR <20. All other viral loads with detectable virus Last Pap 02/2013 was normal (had normal Pap 2010 and 2012) Mammogram 02/2014 Last colonoscopy 11/2013 -with tubular adenoma HB s Ag neg, HBs Ab neg, HCV Ab neg - 2014 PPD neg 2012 Flu vaccine 02/2016 A/P 1. AIDS with CD4 count <200 but no history of opportunistic infection. Per the records from [facility] the patient has been nonadherent with her HAART. When I saw her in February she said she has been taking her medications regularly since they were refilled by Dr. Dobbins. Repeat HIV PCR in March demonstrated a viral load of over 9000 copies. In review of the records from [facility] she had frequent det ectable viral load sometimes at high levels despite the fact that she said she was taking her medications regularly. She had genotypic resistance testing performed on more than one occasion and no mutations were identified. Unclear why she was not adherent with her medications. At the time of her last visit she stated that swallowing issues were the main barrier. We started her on Bactrim suspension fro pneumocystis prophylaxis. We made a plan to put her on a HAART regimen with liquid formulation or small pills ( TAF/3TC/ dolutegravir). SHe is on the dolutegravir BID as there is an interaction with her seizure medication which can decrease the dolutegravir levels. She has been on the regimen about a month and seems to be tolerating it well. He HIV PCR is down to 20 copies. WOuld plan to continue the present regimen. She should have repeat blood work after she has been on the regimen for3-4 months. Brittanie Martinez will check in with Josiane monthly. Instructed the pt to call if any problems. With her history of intermittent nonadherence she would be at high risk for resistance although shehas never been documented to have any resistant mutations. 2. Recent GI complaints - have been present for > 48 hrs but are improving w/o change in her medication so doubt AE form her HAART. Continue to follow for improvement. SHe knows to call if she hasworsening GI sx. 3. Seizure disorder - no seizures since last seen. Followed by neurology in [place]. 4. Depression -she is upset about recent events with her son but denies increased depression or suicidal ideation. SHe has not seen her therapist in a while but plans to see her this week. 5. h/o Anal fissure - not evaluated today 6. Health maintenance -not sure that I have a complete immunization history. She was not immune to hepatitis B on her serologies in 2014. Unclear if she is received immunization since that time. I donot see any record of hepatitis A serology. She is HCV negative. PPD negative in 2012 and no risk factors for TB exposure. She has a history of cervical dysplasia but last 3 Paps (2010, 2012, 2013) were all normal. Dr. Dobbins is referring her to [facility] for follow-up. She refuses to see the dentist ulices had a bad experience the last time she was there. Last colonoscopy in 2013 was significant for tubular adenoma so she would be due for repeat colonoscopy in 2019. Last mammogram in her outside records was 2014 but again she may have had a mammogram more recently in [place]. She had a primary care physician here in [facility] but he is since retired. Would be worth getting her records from thatoffice to look at her immunization history. Unclear if those were transferred to Dr. Dobbins. In [facility] I can see that she has a Prevnar in 2012 but I do not see that she has had a repeat pneumovax since then. Last pneumovax was in 2009. She did have a Tdap in 2008. Would like her to be on HAARFT before we give her additional vasccines. SHe is a candidate for repeat HBV vaccine. COuld consider new HBV vaccine. SHe also should have a repeat pneumovax. 7. Skin lesion over left supraclavicular region. Not palpable. Does not malathi with pressure. Couldbe early seborrheic keratosis with secondary trauma vs melanoma vs? I think that she should have itevaluated by dermatology 8. Multiple wart like skin lesions - ? Warts. She saw Dr Teixeira for this 02/2017 and bx of a lesion was unrevealing. documented in this encounter Plan of Treatment Not on file documented as of this encounter Visit Diagnoses Diagnosis AIDS (acquired immune deficiency syndrome) ([facility])- Primary Human immunodeficiency virus [HIV] disease Lower abdominal pain Abdominal pain, other specified site Rash Rash and other nonspecific skin eruption documented in this encounter Discontinued Medications Medication Sig Discontinue Reason Start Date End Da te dolutegravir 50 mg tablet Take 1 Tab by mouth 2 times daily. Reorder 07/07/2017 08/09/2017 lamiVUDine (EPIVIR) 10 mg/mL solution 15 ml ( 150 mg) twice daily Reorder 07/07/2017 08/09/2017 tenofovir alafenamide fumarate (VEMLIDY) 25 mg tablet Take 25 mg by mouth daily. Reorder 07/07/2017 08/09/2017 sulfamethoxazole-trimetho prim (BACTRIM,SEPTRA) 200-40 mg/5 mL suspension Take 10 mL by mouth daily. Reorder 06/14/2017 08/09/2017 documented as of this encounter Care Teams Nursing Technician Relationship Specialty Start Date End Date Bryce Dobbins DO [address] [place] [address] PCP - General 03/28/17 03/15/18 documented as of this encounter
--- OUTSIDE RECORDS SUMMARY | 2023-12-04 16:39 | XMS_ITS | Encounter Summary ---
Author Organization [facility] Address [address] [place] [address] Care Team Providers Care Energy Advisor Name Role Phone Unavailable Primary Care Provider Unavailabl e Encounter Details Date Type Department Care Team (Late st Contact Info) Description 09/12/2007 Before PRISM Converted Visit (Maple) [facility] - Maple conversion [address] [place] [address] Josiane Hopkins MD Social History Tobacco Use Types Packs/Day Years Used Date Smoking Tobacco: Never Assessed Sex and Gender Information Value Date Recorded Sex Assigned at Not on file Gender Identity Not on file Sexual Orientation Not on file documented as of this encounter Consult Notes * Josiane Hopkins MD - 11/24/2008 1527 EDT DIVISION OF INFECTIOUS DISEASE CONSULTATION - 09/12/2007 A consultation was requested by Dr. Rosas for evaluation of HIV. BARI Joshua presents to sim in the [facility] in [facility]. She was last here in 1999. Since she was last seen, she has been followed by Dr. Derw Heaton at the HIV clinic at [facility]. It is really unclear why she is transferring her care to the [facility] in [facility]. 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 She is sentby her primary care physician, Dr. Rosas, for HIV care here in the [facility] in [facility]. Basically, the patient reports that she has continued on antiretroviral therapy since she was last seen. She says she has been on numerous different regimens. She does not think she has ever failed any of the regimens and has never had documented resistance; however, the medications were changed because of intolerance or because of concerns for interaction with her seizure medicines. She says shehas been on her present regimen since 2003 and has been doing well. Since she was last seen she has not had any HIV-related complications. She does say she was treatedfor pneumonia as an outpatient on two occasions since she was last seen.No other documented infections. 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 Postopcourse was complicated by a subdural collection, but it sounds like that gradually resolved. Unfortunately, following the surgery she has continued to have seizures, although I did review a note fromDr. Wills that says that she was hospitalized at [facility] recently for a week. They took her offall her seizures medicines and she did not have any documented seizures during thattime. The patient reports that she continues to have regular seizures. She says she also was diagnosed with some form of meningitis. She denies that it was cryptococcal disease, and it sounds like she required repeated taps. Again, it is unclear if this was HIV related. It does not sound like she has had any other issues that have been felt to be secondary to her HIV. She was last seen by Dr. Heaton at [facility] in April. At that time, it sounds like her viral load was undetectable and her CD4 count was fairly stable, and there were no specific concerns. The patient presents today saying that she has been taking her medications regularly. It does not sound like she has really been feeling well. She continues to struggle with the seizures. Over the last few weeks, she has been in the emergency room in [facility] on two occasions because of shortness of breath. It sounds like it came on rather abruptly. With one episode, she woke up in the middle of the night with a seizure and then subsequently suffered with shortness of breath. She was not having chest pain, diaphoresis or nausea. She was seen in the emergency room in [facility] and it sounds like a chest x-ray was negative and blood work was unremarkable, although I do see a note that says her bicarb was low. It was felt that this was most likely anxiety related. She had had another episode, but she says that now her shortness of breath has improved. She continues to struggle with the chronic headaches and she says she has been under a lot of stress related to her son who is going to be 19. He is living at home with her, but her landlord wants him out of the apartment, although she feels that she would rather have him around to be of assistance to her with her chronic seizures. It sounds like her son was recently arrested for shoplifting and all of this has caused a greatdeal of stress for her. She denies suicidal ideation. ALLERGIES SHE REPORTS SHE IS ALLERGIC TO A SEIZURE MEDICINE, BUT DOES NOT REMEMBER THE NAME. IT CAUSES PRURITUS AND RASH. She thinks that her shortness of breath recently was related to Zoloft that had been started by , and she also says she had a lot of facial swelling when she used DEET in the past. CURRENT MEDICATIONS She provided a list, which really did not coincide with the list in her last notes from Dr. Heaton and Dr. Wills. She says she is using an albuterol inhaler and that was given to her by Dr. Wills.She is on Lyrica; his notes say 75 three times a day, but her list says 75 mg one in the morning and two at night. She does use a stool softener, although it does not sound like that has been regularly. 1. She is on ritonavir 100 mg once a day. 2. Reyataz 400 mg once a day. 3. Epzicom 1 a day. 4. Lamictal 200 mg 2 each day. 5. Klonopin 2 mg, 1 in the morning and 2 at bedtime. 6. She is using Prochlorperazine 10 mg three times a day for nausea as necessary. 7. She is no longer using ibuprofen. PAST MEDICAL HISTORY Past medical history is as mentioned above. She has been HIV positive since 1990 and really has been remarkably asymptomatic. She has had bacterial pneumonia in the past, although it is unclear how well this was documented. She has had a history of an abnormal Pap and conization. She has a long history of seizures. She has been hospitalized for a suicide attempt in the past. She has hyperlipidemia, obesity, and is status post cholecystectomy. She is also status post the surgery for seizures, asmentioned above. SOCIAL HISTORY She lives alone. Her sons father had moved back to the area since I last saw Josiane and I guess he was living in the apartment above her. He was found in 2002. She says she really has not had a regular sexual partner since that time. She is not sexually active at the present time. She smokes about a pack every three or four days. She rarely uses alcohol; she says she is really not using any now. She has not used intravenous drugs. She has not worked since she was last seen by me. She has been disabled since the . 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 FAMILY HISTORY Noncontributory. REVIEW OF SYSTEMS As above. She complains of poor memory, especially short-term memory, but she had difficulty givinga history today. She sees a therapist on a regular basis. She does not see a psychiatrist. She has the chronic headaches, as mentioned above. She has had double vision since her surgery. She denies oral lesions, dysphagia or odynophagia. She has not had prior chronic respiratory symptoms. She has never had issues like the recent episodes of shortness of breath. She has no known underlying lung disease. No history of a heart murmur. No history of any heart problems. No diabetes or hypertension. No history of asthma. She has lost about 75 pounds since she was last seen by me. She says she has lost her appetite,but she also did work out. She says that after her seizure surgery, she had even worsening decrease in her appetite and has lost a significant amount of weight. No fevers, chills. Shedoes have occasional night sweats. She has not had any sexually transmitted diseases. Her most recent Pap was in February 2006 and was normal, although she has a history of abnormal Pap in the past. She has had no urinary symptoms. Her menses have been irregular. She feels that she is going through menopause. She has not had any problems with chronic rashes. No joint complaints. No new neuromuscular complaints. She has not noted any adenopathy. No abdominal pain, nausea, vomiting. No problems with diarrhea, although she has had chronic diarrhea in the past. She says she has had two Pneumovax. She has had yearly flu shots. She is due for a mammogram. She has not had a colonoscopy. OBJECTIVE On physical examination, her weight was 79 kg, temperature 98.3. Her heart rate was 78 and regular,blood pressure 132/80. She looks much thinner than when I saw her last. She was calm, did not seem to have a depressed affect. She was alert and appropriate, although had difficulty providing historybecause of poor memory. Pupils equal. Extraocular movements intact without nystagmus. Sclerae nonicteric. Conjunctivae pink without hemorrhages. She has no oral lesions. She has fair dentition. She had no cervical or supraclavicular lymphadenopathy. She had no axillary, femoral or inguinal lymphadenopathy. Her lungs were clear to auscultation and percussion. Cardiac exam revealed a regular rhythmwith a question of a soft, 2/6 systolic murmur at the left sternal border, heard best when she was upright. Abdomen was obese. Bowel sounds were present. Abdomen was soft, nontender. No hepatosplenomegaly ormasses appreciated. She has a well- healed scar in the right upper quadrant. Extremities: Shehas no edema, cyanosis or clubbing. Skin is without acute rash. Pulses are 2+ bilaterally. Neurological examination: Motor strength is 5/5, reflexes are 1+ bilaterally. Sensory examination is intact. LABORATORY Laboratory studies done in preparation for this visit include chemistries. Her calcium was normal, as was her glucose. Creatinine was 0.8, normal alkaline phosphatase. Her AST was 19, ALT 47. Anion gap was 14. Her bicarb was 23. CBC: White count 6.3 with hemoglobin of 15 and a platelet count of 249,000. Her CD4 count was 253 and 11%. Her viral load was undetectable at less than 400 copies. Cholesterol 211, triglycerides 46, HDL 67, LDL 126. ASSESSMENT/PLAN 1. HIV positive. It is unclear if she has had AIDS. It does not sound like she has had an opportunistic infection, although I do not quite follow the history of meningitis. It does not sound like sheever received intravenous medication for this. She says she did not get any antimicrobials, and said she had repeated taps. I wonder if there was something else going on. It does not sound like she had an opportunistic infection. It sounds like her CD4 count has been less than 200 on some occasionsand it does not sound like her CD4 count has gone up significantly on medication. I have none of the information as to her past medication history. Again, it sounds like her medications were changed on more than one occasion for multiple intolerances. It sounds likeshe has been on her present regimen for at least [id number]-pni-[id number]-half years, although she is not sure. There are some notes from Dr. Heaton referring to a detectable viral load just last year, but again her most recent viral loads have beenundetectable. Her [id number] is fairly stable. I am not quite sure why she is on the 400 mg dose of ritonavir with boosting. It sounds like she initially started on unboosted, and then they boosted her. Her other medications, in terms of her seizure medicines, have been changedrepeatedly, and I wonder if her dose was higher because of drug interactions. She seems to be tolerating the medications fairly well. Her blood work otherwise is unremarkable. I would plan to continue her present regimen of Epzicom and boosted atazanavir.She would be due for repeat blood work in about four months with a CBC, CD4 count, ultrasensitive viral load, liver panel and creatinine. Again, it is unclear if she plans to follow regularly with the clinic here. She clearly does not need to have two HIVphysicians. She has not gotten back to see Dr. Heaton for unclear reasons and says she was definitely due for a followup, but unclear if she will coming to the clinic here regularly. If she plans to return, she would be due to come back in about three to four months. She can have her blood work done prior to thatvisit. 2. Persistent seizures post surgery for refractory seizures. She is followed regularly by Dr. Wills at [facility] for this. 3. Chronic headaches. Again, she is followed regularly by neurology for this. She does not take medications regularly as they have not been helpful. 4. Recent episodes of shortness of breath. She seems to feel that it is better since she stopped the Zoloft. We will just follow that. I am a little bit concerned about the history of low bicarb. Shecould have lactic acidosis from her antiretrovirals that could surely cause shortness of breath, although the abrupt nature would be a bit atypical. She is not symptomatic now, so we will follow her for a recurrence. 5. Tobacco use. She is not really interested in quitting at the present time. 6. Health maintenance. Her last Pap was in February, so she is overdue. It sounds like she sees a aviation technician aircraft for this at [facility]. I do not know why it cannot be done closer to home. We would be able to do it in the clinic. It is unclear why she does not have it done through her primary care physicianoffice, but she is overdue for a Pap. She is due for a mammogram. She is now 52 and so she shoul d be scheduled for a colonoscopy. In addition, there is a history of hyperlipidemia, but her recentlipid panel is acceptable. She does not have diabetes or hypertension. Although she is a smoker, she has no other risk factors for heart disease. ADDENDUM I did ask her to sign a release to get her records from [facility]. If she is going to be followed here in the clinic, would like to have the history of her prior antiretroviral therapies and why those medications were changed. Signed by Josiane Hopkins MD 10/16/2007 14:30 Josiane Hopkins MD - Josiane Hopkins MD - Job ID: [id number] Doc ID: [id number] cc: CAROLE Gamez MD Doc ID: [id number] cc: CAROLE Gamez MD documented in this encounter Plan of Treatment Not on file documented as of this encounter Visit Diagnoses Not on filedocumented in this encounter
--- OUTSIDE RECORDS SUMMARY | 2023-12-04 16:39 | XMS_ITS | Encounter Summary ---
Author Organization [facility] Address [address] [place] [address] Care Team Providers Care Etl Database Developer Name Role Phone Bryce Dobbins DO Primary Care Provider [phone] Encounter Details Date Type Department Care Team (Late st Contact Info) Description 07/03/2017 Orders Only [facility] Infectious Disease - [facility] [address] [place] [address] Josiane Hopkins MD Social History Tobacco Use Types Packs/Day Years Used Date Smoking Tobacco: Former Smokeless Tobacco: Never Alcohol Use Standard Drinks/Week [...] on filedocumented in this encounter Care Teams Etl Database Developer Relationship Specialty Start Date End Date Bryce Dobbins DO [address] [place] [id number] PCP - General 03/28/17 03/15/18 documented as of this encounter
--- OUTSIDE RECORDS SUMMARY | 2023-12-04 16:39 | XMS_ITS | Encounter Summary ---
Author Organization [facility] Address [address] [place] [address] Care Team Providers Care Instructor [employer] Name Role Phone Sarah Alejo ASSISTANT SALES DIRECTOR Primary Care Provider [phone] Encounter Details Date Type Department Care Team (Late st Contact Info) Description 03/27/2019 Lab Requisition [facility] Pathology & Laboratory Medicine - [facility] [address] [place] [address] Unknown, Provider, Social History Tobacco Use Types Packs/Day Years [...] Associated Diagnosis Comments T CELL SUBSETS Routine 03/27/2019 11:15 EST HIV 1 RNA QUANTITATION Routine 03/27/2019 11:15 EST documented in this encounter Results * (ABNORMAL) HIV 1 RNA QUANTITATION (03/27/2019 11:15 EST) HIV 1 RNA Quant 3,939(H) Undetected copies/mL 03/28/2019 15:51 EST [facility] Comment:Detected Blood VENOUS BLOOD / Unknown 03/27/2019 11:15 EST 03/27/2019 15:23 EST Narrative [facility] - 03/28/2019 15:51 EST The quantification range of this assay is 20 IU/mL to 10,000,000 IU/mL. ??Testing was performed on the ORLIN Ampliprep/ORLIN TaqMan HIV v2.0 ([employer] Provider Unknown CHEMISTRY & BLOOD GA S ORDERABLES Performing Organization Address [facility] Co de Phone Number [facility] [address] [place] [address] * (ABNORMAL) IMMUNODEFICIENCY PANEL (03/27/2019 11:15 EST) % CD3 92(H) 62 - 87 % 03/28/2019 16:48 EST [facility] % CD4 6(L) 35 - 63 % 03/28/2019 16:48 EST [facility] % CD8 85(H) 10 - 35 % 03/28/2019 16:48 EST [facility] Absolute CD4 63(L) 329-1,427 cells/uL 03/28/2019 16:48 EST [facility] Blood VENOUS BLOOD / Unknown 03/27/2019 11:15 EST 03/27/2019 15:22 EST Provider Unknown IMMUNOLOGY AND SEROL OGY ORDERABLES Performing Organization Address [facility] Co de Phone Number [facility] [address] [place] [phone] documented in this encounter Visit Diagnoses Not on filedocumented in this encounter Care Teams Instructor [employer] Relationship Specialty Start Date End Date Sarah Alejo NP [address] [place] [address] PCP - General 09/20/18 documented as of this encounter
--- OUTSIDE RECORDS SUMMARY | 2023-12-04 16:39 | XMS_ITS | Encounter Summary ---
Author Organization [facility] Address [address] [place] [address] Care Team Providers Care Wood Machinist Apprentice Name Role Phone Sarah Alejo SCREEN PRINTING CLOTH SPREADER Primary Care Provider [phone] Reason for Visit * Reason Comments Follow-up Encounter Details Date Type Department Care Team (Late st Contact Info) Description 10/15/2018 11:15 EDT Office Visit [facility] Infectious Disease - [address] [id number] Antony Myers, DO [address] [facility], [address] [place] [address] Symptomatic HIV infection ([facility]) (Primary Dx) Social History Tobacco [...] Progress Notes * Antony Myers DO - 10/15/2018 1117 EDT Images from the original note were not included. ?? Chief Complaint: HIV follow-up care ?? HPI:??Ms.??Junior??is a 62 y.o.??female??with history significant for HIV??who presents with routine HIV follow up after noted to have VL blip up to 3000 last month. ? HIV diagnosed in 1990. ??Most recent CD4 done in August is stable at 152 at 5% but??HIV VL unfortunately up to 3109 in August 2018 .?Last VL in??Mar 2018 was??89. ?? Pt on Dolutegravir 50mg BID, liquid 3TC 150mg BID and 25 mg TAF daily, a regimen that was slected for the small size of tablets of availability of liquid formulation due to difficulty in swallowing in past.?Dolutegravir is BID as her seizure medications may lower levels. ?She is also on bactrim suspension for PCP prophy. ??Notes indicate pt cared for at both [facility] and [facility] in past with difficulties in adherence but in our last visit in Mar, she seemed to be doing better until are more than visit in August when patient seemed to be moving backwards. ?Patient is very tangential and vague when trying to clarify details or review of systems. However, patient stated at her last visit that she frequently felt like her pills were getting stuck whenshe was swallowing them. She also admitted, and had a difficult time quantifying or qualifying, frequent bouts of vomiting. With viral load up to 3000 her last visit, we got a genotype and for the meantime recommended the patient keep trying to take her current regimen as it was designed to be the most tolerant with her history of difficulty swallowing. We also asked her to keep a diary that reviewed only time she vomited during the day. Patient forgot to bring this diary to clinic visit today. Since her last visit, patient seems to be doing better job getting all her HIV meds taken daily. She admits to vomiting about 4 times a week into the kitchen sink. She also admits to changing her diet considerably to accommodate for her frequent vomiting. She does not eat vegetables anymore. ?? She continues to exercise by lifting weights and walking everywhere? Review of Systems: 10-point review of systems is negative except as noted in the HPI. ? Past Medical History: Epilepsy with refractory seizures and required surgery, followed by [facility] Cervical dysplasia Obesity HLD Esophageal stricture, requiring dilation Herpes zoster 2011 Anal fissures ? Etoh abuse ? Poor adherence with ART in past ? Past Surgical History:?? 2017??Craniotomy for seizures complicated by subdural hematoma Shira botox injections for headaches [place] x 3, last one at [facility] 2013 where she had polyps removed Epiglottis surgery x 3 Hemorrhoid banding 2013 ? Current Outpatient Medications: clonazePAM (KLONOPIN) 1 mg [...] with driving. ??Son is chef's assistant in [place] but contact seems very limited. Sexual:??Not currently sexually active Exercise:??Seems to have good exercise regimen Travel:??From [place], went to college in [place], then went to [place] and now in [place]. ??[place] on vacation. ?? Animal exposure:??no pets Food:??diet is pretty Social History ? Socioeconomic History ??? Marital [...] infection or immunocompromised state. ?? Physical Exam Wt 200 pounds, blood pressure 146/80 General: NAD, seems brighter and more engaged than in her last visit. Skin: no rashes or lesions HEENT and oral exam: AT/NC. EOMI. PERRL. Sclera anicteric. Oropharnyx w/o erythema or exudates.?Somewhat poor dentition Neck: supple, no LAD CV: RRR, no MRG, S1 + S2 normal Pulm: CTAB, no wheezes, rales, or rhonchi Abd: BS+, soft, non-tender, non-distended, no hepatosplenomegaly Ext: Warm, well-perfused, no edema, 2+ pulses globally Neuro: A+Ox3, CN2-12 intact, sensation intact, gait stable ?? Assessment and Plan: ?? 1) HIV ?? - Currently on??Dolutegravir 50mg po BID, liquid 3TC 150 mg twice daily, 25mg TAF daily, doing verywell in 2018 but she is having difficulties at this point. ??Her VL had been < 20 in Jul 2017 and Oct 2017 with a slight blip to 89 in Mar 2018. 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 In reviewing old genotypes from [facility], she had always had wild- type in the past. Her most recent one checked was in 2012. Patient is adamant that she really does like her current ART does not want to go back to her old formulations. She admits that the smaller pills as well as the liquid lamivudine are workable at this time and she is done a better job over the past month and making sure sheis able to swallow them. At this point, we will see if going back on her dolutegravir,TAF and 3TC with good attention to detail to adherence will get the patient undetectable again. It is concerning that she is developed a M184 V mutation but from a pill standpoint, her current regimen has the smallest pills available. We will repeat CD4 count and viral load in mid October timeframe. - Last VL in August 2018 3109. - Last CD4 count??August 2018 is 152 at 5% which is baseline. - OI prophylaxis:??Keep up liquid bactrim - Compliance:??Vague with regards to pt being consistently able to take her ART but she seems to have done a better job over the past month. - Sexual activity:??None - HBV/HCV: ??Hep C Ab neg 2014, hep B surface ab neg/hep B surface ag neg. ? - Dental exam??Needs to get a new dentist, she had a bad experience with dentist in past and we talked about her needed to get a new one at our last visit. - PCM??is??at [facility] -If next viral load is declining, will repeat another one in 1 month. If it stays elevated, we willhave to think of a new regimen ?? 2) Health maintenance - Cholesterol:??LDL 117 in Mar 2018 - Diabetes:??FSBS 95 in Mar 2018 - Colonoscopy:??2014??with tubular adenoma so recommended a repeat in 2019. Pt will bring this up with PCM - Immunizations:Prevnar 13 in 2012, pneumovax 2009 and 2018. Flu 2019. ??Tdap in 2019.?She is non hep B immune so may benefit from the new hep B vaccine in the future when it becomes avail.?Shingrix No. 1 given today - Pap:??Last pap 2018, normal by report - Mammogram:In 2019, normal by report ?? 3) Seizures, followed by neurology in [place]. ?? 4)??Depression, has seen a therapist in the past but does not want to see one now as talking about her depression does not make her feel better. She does show interest in some things. 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 This was a hobby of hers in the past which she has enjoyed and she looks forward to starting to do this again. ?? 5)??PCM, seen at [facility] ?? 6) Active smoking, pt down to just 1 pack per week so making progress. ?? 7) Frequent vomiting and patient with a known history of esophageal strictures. In reviewing records, she has been treated with esophageal dilatation several times in 2016 at [facility] and did not like the experience. Patient refuses to return to [facility], in the setting, I have recommended patient seeing if she can get referred by her PCM to a fruit thinner machine operator in [place]. I think patient would feel better if her esophageal problems were addressed and she be more adherent with her medications. It has been a pleasure seeing??Ms.??Pacheco??in clinic today. ?? Antony Myers DO Pager [phone] documented in this encounter Plan of Treatment Not on file documented as of this encounter Visit Diagnoses Diagnosis Symptomatic HIV infection ([facility])- Primary Human immunodeficiency virus [HIV] disease documented in this encounter Care Teams Wood Machinist Apprentice Relationship Specialty Start Date End Date Sarah Alejo NP [address] [place] [id number] PCP - General 09/20/18 documented as of this encounter
--- OUTSIDE RECORDS SUMMARY | 2023-12-04 16:39 | XMS_ITS | Encounter Summary ---
Author Organization [facility] Address [address] [place] [address] Care Team Providers Care Nurse Discharge Name Role Phone Sarah Alejo KILN CAR REPAIRER Primary Care Provider [phone] Reason for Visit * Reason Comments Follow-up Encounter Details Date Type Department Care Team (Late st Contact Info) Description 05/30/2019 14:00 EDT Telemedicine [facility] Infectious Disease - [address] [phone] Antony Myers, DO [address] [facility], [address] [place] [address] Symptomatic HIV infection ([facility]) (Primary Dx) Social History Tobacco Use [...] encounter Progress Notes * Antony Myers, - 05/30/2019 1400 EDT Images from the original note were not included. Chief Complaint: HIV follow-up care. This visit was done via telehealth due to the moss pandemic Date of visit 31 May 2019. ? HPI:??Ms.??Pacheco??is a 63y.o.??female??with history significant for HIV/AIDS, recalcitrant seizure disorder and esophageal dysmotility who presents with routine HIV follow up. Her last visit was inFebruary 2018. We are trying to see her frequently [...] her care for HIV occurred down in [facility] until about 2 years ago. ?? [...] both [facility] and [facility] in past with difficulties in adherence. A lengthy review of IDnotes from [facility] indicate that patient would frequently have viremia, genotypes always showed wild-type virus so it was presumed she just wasn't taking her meds. After years in [facility] system, she returned to [facility] HIV clinic in 2016. ?? Her main difficulty for years in adhering to her ART was swallowing difficulties. ?? She had two break-through seizures in past year. She met with her neurologist at [facility] who recommend considering moving to an assisted living/shelter type setting which upset pt and she is now isconsidering moving her neurology care back to [facility]. She continues to be incredibly nonspecificand tangential when we try to clarify exactly how much of her ART she is actually able to keep down. She seemed less tearful during this visit compared to her March visit where she was visibly distraught about how unhappy she was living in her apartment building. She has made no changes to her current living situation. ?? Review of Systems: 10-point review of systems is negative except as noted in the HPI. ?? Past Medical History: Epilepsy with refractory seizures and required surgery, followed by [facility] in past, now by neurology at [facility] Cervical dysplasia Obesity HLD Esophageal stricture, requiring dilation x 2 in past at [facility] which pt describes as a negative experience Herpes zoster 2011 Anal fissures ? Etoh abuse Poor adherence with ART chronically ? Past Surgical History:?? 2017??Craniotomy for seizures complicated by subdural hematoma Shira botox injections for headaches [place] x 3, last one at [facility] 2013 where she had polyps removed [...] RCT to help with driving. ??Son is celebrity chef entrepreneur media personality in [place]??but contact seems very limited which is discouraging to patient and she is not even sure where he is now. Sexual:??Not currently sexually active Exercise:??Seems to have good exercise regimen Travel:??From [place],??went to college in [place],??then went to [place] and now in [place]. ??[place] on vacation. ?? Animal exposure:??no pets [...] February 2019 viral load 63 at 6% Assessment and Plan: ?? 1) HIV ?? - Currently on??Dolutegravir 50mg po BID,??liquid??3TC??150 mg twice daily,??25mg??TAF??daily, was doing very well??in 2018??but she is having difficulties since then.?Her VL had??been??< 20 in??Jul 2017 and Oct 2017 with a slight??blip to 89 in Mar 2018. Since then, her CD4 is falling steadily down to 63 at 6% and her viral load remains stable at 3939. 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 ??In reviewing old genotypes from [facility], she had always had wild- type in the past. ??Her most recent one checked was in 2012. ??Patient is adamant that she really does like her current ART does not want to go backto her old formulations. Based on her current genotype, if she consistently took her medications, this should be working. Patient refuses to go back to her old ART as she could not tolerate taking them. ?? Of note, pt refused to follow up with GI in [facility] to address esophageal concerns and we don't have GI locally and at this point, I dont think she would be willing to see one anyway. The patient's caseraises the question about whether she would benefit from intramuscular, long acting cabotegravir/rilpivirine. However, based on all her other problems, and current viremia, and the necessity to at least start of with a solid month of p.o. cabotegravir/rilpivirine prior to changing to IM, I do not think she is a good candidate for this right now. ?? - Last VL in Feb 2019 3939 (stable) - Last CD4 count??Feb 2019 is 63 at 6%?? - OI prophylaxis:??Keep up liquid bactrim [...] surface ag neg. ? - Dental exam: The need for better dental care is something we talk about at every visit. Patient was unhappy with prior dental care in the past. - PCM??is??at [facility] but pt not seeing them routinely -Would like to at least draw labs in the June timeframe to see where she is standing. ?? 2) Health maintenance - Cholesterol:??LDL 117 [...] avail.?Shingrix #1 2019, needs #2 with next [id number] visit. - Pap:??Last pap May 2018, normal by report - Mammogram:In 2019, normal by report ?? 3) Seizures, followed by neurology in[facility] now but this has not been a good experience for her. The patient would like to return to her neurologist down in [facility]. I think this would be a good idea and would aid in her continuity. Once neurology clinics open up again after the pandemic, I would recommend the patient return there for her neurology follow-up. ?? 4)??Depression, is now her largest problem. She sees PCM in [facility]'s for this but not consistently. [facility] getting into adifferent [facility]-environment but I would suspect that what could be supplied in the setting would probably be a similar environment to what she is in now. We discussed patient moving into more of a shelter setting at her last visit but she was very recalcitrant to this citing what sounds likeprivacy concerns. ?? 5)??PCM,??seen at[facility] ?? 6) Active smoking,??pt not interested in quitting now. ?? 7) Frequent??vomiting and patient with a known history of esophageal strictures. ??In reviewing records, she has been treated with esophageal dilatation several times in 2016 at [facility] and did notlike the experience. ??Patient refuses to return to [facility] GI. If we can get patient to follow-up with neurology down in [facility], that might be stopping soon to get her to see GI as well. In the meantime, she continues just to proceed with continued symptoms. It has been a pleasure talking to Ms. Pacheco over the phone today. ?? Antony Myers DO Pager [phone] Currently employed: No Adherence counseling: Yes Linguistic services: No Patient with HIV (-) partner: Not applicable HIV (-) partner tested within the last 12 months: Not applicable Partner notification discussed: Not applicable Social History Social History Tobacco Use Smoking Status Current Every Day Smoker ??? Packs/day: 0.50 Smokeless Tobacco Never Used Smoking [...] once in the past 12 months): none documented in this encounter Plan of Treatment Not on file documented as of this encounter Visit Diagnoses Diagnosis Symptomatic HIV infection ([facility])- Primary Human immunodeficiency virus [HIV] disease documented in this encounter Care Teams Nurse Discharge Relationship Specialty Start Date End Date Sarah Alejo NP [address] [place] [id number] PCP - General 09/20/18 documented as of this encounter
--- OUTSIDE RECORDS SUMMARY | 2023-12-04 16:39 | XMS_ITS ---
Author Organization [facility] Address [address] [place] [address] Care Team Providers Care Project Administrator Name Role Phone Sarah Alejo FOREST PRODUCTS TEACHER Primary Care Provider [phone] HIV Status:Enrolled (Active) Start date:01/27/2021 Enrollment date:01/27/2021 Current support & services provided:Clinical Management, Refill Management Linked medications:cabotegravir/rilpivirine (Active) Linked problems:HIV (human immunodeficiency virus infection) ([facility]) (Active) Case Team Name Relationship Phone Micheal Herrera [facility] (Responsible Staff) Continued Care and Services Coordination
--- OUTSIDE RECORDS SUMMARY | 2023-12-04 16:39 | XMS_ITS | Encounter Summary ---
Author Organization [facility] Address [address] [place] [address] Care Team Providers Care Chief Passenger Ship Steward/Stewardess Name Role Phone Michael Shannen Sendy VENEGAS Primary Care Provider [phone] Encounter Details Date Type Department Care Team (Late st Contact Info) Description 06/26/2018 Results Only [facility] [phone] Sarah Alejo, HAND PRINTED CIRCUIT BOARD ASSEMBLER [address] [place], [place] [phone] Social History Tobacco Use Types Packs/Day Years [...] Procedure Name Priority Date/Time Associated Diagnosis Comments PAP TEST- RESULT ONLY Routine 06/26/2018 0:00 EDT documented in this encounter Results * PAP TEST- RESULT ONLY (06/26/2018 0:00 EDT) Pathology Report: CYTOPATHOLOGY REPORT Reports generated via electronic interface contain original data; however they are lacking the format of the original report. Caution should be taken when reading/interpreti ng unformatted reports. Name: ? ANNIE PACHECO ? Accession #: ? [id number] ? : ? 1955 (Age: 62) ??F ?Collect Date: ? 06/26/2018 ? Location: ? [facility] ? Receive Date: ? 06/27/2018 ? Provider: SARAH ALEJO HAND PRINTED CIRCUIT BOARD ASSEMBLER Copy to: ? Final Report SPECIMEN ADEQUACY ? Satisfactory for Evaluation - transformation zone component absent GENERAL CATEGORIZATION ? Negative for Intraepithelial Lesion or Malignancy ?? Last Menstrual Period: 2014 Hormonal/Contracep tive status: Condoms Specimen/Source: ??Pap Test, Endocervix, ThinPrep Imaging System with manual evaluation Document reviewed and electronically signed by: ? Sheri Ovalle [facility](ASCP) ? Report ??Date: 06/29/2018 09:20 HPV with Pap Test ? Date Ordered: ? 06/29/2018 ? Status: ?? Signed Out ?Date Complete: ? 07/03/2018 ? By: ??System Interface ? Date Reported: ? 07/03/2018 ? Interpretation RESULT: Negative for HPV. No E6 or E7 mRNA is detected from HPV types 16,18,31,33,35, 39,45,51,52,56,58, 59,66, and 68 by hatchery man mediated amplification. Comments Document reviewed and electronically signed by: ? System Interface ? Report date: 07/03/2018 By the signature above, the attending physician certifies that he/she has personally conducted a gross and/or microscopic examination of the described specimens and rendered or confirmed the above diagnosis. End of Report [facility] 06/26/2018 06/27/2018 Sarah Alejo HAND PRINTED CIRCUIT BOARD ASSEMBLER PATHOLOGY ORDERABLES [facility] [address] [place] [address] documented in this encounter Visit Diagnoses Not on filedocumented in this encounter Care Teams Chief Passenger Ship Steward/Stewardess Relationship Specialty Start Date End Date Shannen Rodriguez DO [address] [place] [address] PCP - General 03/16/18 09/19/18 documented as of this encounter
--- OUTSIDE RECORDS SUMMARY | 2023-12-04 16:39 | XMS_ITS | Encounter Summary ---
Author Organization [facility] Address [address] [place] [address] Care Team Providers Care Advertising Sales Associate Name Role Phone Sarah Alejo RETAIL PARTS PROFESSIONAL Primary Care Provider [phone] Reason for Visit * Reason Comments HIV Positive/AIDS Encounter Details Date Type Department Care Team (Late st Contact Info) Description 04/01/2019 9:30 EST Office Visit [facility] Infectious Disease - [address] [phone] Antony Myers, DO [address] [facility], [address] [place] [address] Symptomatic HIV infection ([facility]) (Primary Dx) Social History Tobacco Use [...] encounter Progress Notes * Antony Myers, - 04/01/2019 0686 EST Images from the original note were not included. Chief Complaint: HIV follow-up care Date of visit 01 April 2019 HPI:??Ms.??Junior??is a 62 y.o.??female??with history significant for HIV, recalcitrant seizure disorder and esophageal dysmotility who presents with routine HIV follow up. Her last visit was in September 2018 when we had a long discussion about adherence concerns, her seizures and GI concerns. She was failing her ART at that time due to what we presumed was inability to consistently take her ART due to GI concerns (inability to tolerate meds due to swallowing difficulty/vomiting) ?? HIV diagnosed in 1990. ??Most recent CD4 done in??Feb 2019 was falling to 63 and VL unfortunately is remaining detectable at 3939 which is discouraging. At our last visit in September, we asked pt to return in the Oct 2018 to discuss her failing HIV regimen and way forward but she didn't return untiltoday. ?? Pt on Dolutegravir 50mg BID,??liquid??3TC 150mg BID and??25 mg??TAF??daily, a regimen that was slected for the small size of tablets of availability of liquid formulation due to difficulty in swallowing in past.?Dolutegravir is BID as her seizure medications may lower levels. ?She is also on bactrim suspension for PCP prophy. ?? Pt cared for at both [facility] and [facility] in past with difficulties in adherence. A lengthy review of IDnotes from [facility] indicate that patient would frequently have viremia, genotypes always showed wild-type virus so it was presumed she just wasn't taking her meds. After years in [facility] system, she returned to [facility] HIV clinic in 2016. ?? Her main difficulty for years in adhering to her ART was swallowing difficulties. ?? With viral load up to 3000 her last visit in September, we got a genotype and for the meantime recommended the patient keep trying to take her current regimen as it was designed to be the most tolerant with her history of difficulty swallowing. We also asked her to keep a diary that reviewed only timeshe vomited during the day. Patient didn't keep a diary or her f/w up appt in Oct. ?? Since her last visit, things at home seem to have gotten worse. We spent 40 minutes of this visit reviewing how pt denies SI but is very discouraged with life. She doesn't like her landlord, neighbors or appt building. She mentions many have significant drug problems. She was very tearful throughout visit. She is also discouraged with how I just go from doctor to doctor and I never feel better. She had two break-through seizures in past 6 months. She met with her neurologist at [facility] who recommend considering moving to an assisted living/chcf type setting which upset pt. ?? Despite her difficulties, she continues to exercise by lifting weights??and walking everywhere. No cough, SOB, nausea or diarrhea. She states she misses 2 doses of ART per month due to inability to swallow but we suspect this number is higher. ?? Review of Systems: 10-point review of systems is negative except as noted in the HPI. ? Past Medical History: Epilepsy with refractory seizures and required surgery, followed by [facility] in past, now by neurology at [facility] Cervical dysplasia Obesity HLD Esophageal stricture, requiring dilation x 2 in past at [facility] which pt describes as a negative experience Herpes zoster 2011 Anal fissures ? Etoh abuse ? Poor adherence with ART in past ? Past Surgical History:?? 2017??Craniotomy for seizures complicated by subdural hematoma Shira botox injections for headaches [place] x 3, last one at [facility] 2013 where she had polyps removed [...] RCT to help with driving. ??Son is physical therapist in [place]??but contact seems very limited which is discouraging to patient and she is not even sure where he is now. Sexual:??Not currently sexually active Exercise:??Seems to have good exercise regimen Travel:??From [place],??went to college in ,??then went to [place] and now in [place]. ??[place] on vacation. ?? Animal exposure:??no pets Social History ? Socioeconomic History ??? Marital [...] infection or immunocompromised state. ?? Physical Exam Wt?? 200 pounds, blood pressure 146/80 General: NAD, seems very depressed during this visit with life Skin: no rashes or lesions HEENT and oral exam: AT/NC. EOMI. PERRL. Sclera anicteric. Oropharnyx w/o erythema or exudates.?Somewhat poor dentition. R upper canine missing Neck: supple, no LAD CV: RRR, no MRG, S1 + S2 normal Pulm: CTAB, no wheezes, rales, or rhonchi Abd: BS+, soft, non-tender, non-distended, no hepatosplenomegaly Ext: Warm, well-perfused, no edema, 2+ pulses globally Neuro: A+Ox3, CN2-12 intact, sensation intact, gait stable ? Assessment and Plan: ?? 1) HIV ?? - Currently on??Dolutegravir 50mg po BID,??liquid??3TC 150 mg twice daily,??25mg??TAF??daily, was doing very well??in 2018??but she is having difficulties since then.?Her VL had??been < 20 in Jul 2017 and Oct 2017 with a slight??blip to 89 in Mar 2018. Since then, her CD4 is falling steadilydown to 63 at 6% and VL is remaining in the 3000 range.? 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 In reviewing old genotypes from [facility], she had always had wild-type in the past. Her most recent one checked was in 2012. Patient is adamant that she really does like her current ART does not want to go back to her old formulations. In September 2018, we tried to focus on being consistent with her ART and at least keeping a diary about how well she was keeping her ART down with the plan to repeat VL a month later and she failed to follow up after that point. Now, her life seems to have taken a very negative turn and she is very discouraged about her place in life. She clearly denies SI, but admits she gets no francisco from anything in life which has to be weighing heavily on her consistency with ART. Of note, pt refused to follow up with GI in [facility] to address esophageal concerns and we don't have GI locally and at this point, I dont think she would be willing to see one anyway. ?? - Last VL in Feb 2019 3939 (stable) - Last CD4 count??Feb 2019 is 63 at 6%??which is down slightly from summer 2018 - OI prophylaxis:??Keep up liquid bactrim - Compliance:??It continues to be very difficult for pt to quantify how many doses of ART she cannot tolerate weekly due to GI concerns - Sexual activity:??None - HBV/HCV: ??Hep C Ab neg 2014, hep B surface ab neg/hep B surface ag neg. ? - Dental exam: The need for better dental care is something we talk about at every visit. Now that she lost her tooth during recent seizure, will ask Hamida again to help pt get plugged in. - PCM??is??at [facility] but pt not seeing them routinely - Would like to see in one month to review how she is doing. Reluctant to make any changes in ART as pt's main problem is her depression, seizures and esophageal concerns that she needs other providers to assist with before we can address HIV ?? 2) Health maintenance - Cholesterol:??LDL 117 [...] avail.?Shingrix #1 2019, needs #2 with next visit. - Pap:??Last pap May 2018, normal by report - Mammogram:In 2019, normal by report ?? 3) Seizures, followed by neurology in[facility] now. Pt encourage to keep following up routinely. ?? 4)??Depression, is now her largest problem. She sees PCM in [facility] for this but not consistently. She really needs a change of living situation so will ask Hamida to assist in looking for something like [facility] where she can socialize, have her privacy and get away from current appt which seems toxic. Until we can get her sx under control and she starts to feel better, will just leave her on her current ART. ?? 5)??PCM,??seen at??[facility] ?? 6) Active smoking,??pt not interested in quitting now. ?? 7) Frequent vomiting and patient with a known history of esophageal strictures. In reviewing records, she has been treated with esophageal dilatation several times in 2016 at [facility] and did not like the experience. Patient refuses to return to [facility]. Her depression is overwhelming everythingright now so will have to reconsider the next step after she gets through this period. If she cant take pills consisently, I am wondering where a PEG placement comes into plan. ?? It has been a pleasure seeing??Ms.??Pacheco??in clinic today. ?? Antony Myers DO Pager [phone] documented in this encounter Plan of Treatment Not on file documented as of this encounter Visit Diagnoses Diagnosis Symptomatic HIV infection ([facility])- Primary Human immunodeficiency virus [HIV] disease documented in this encounter Care Teams Advertising Sales Associate Relationship Specialty Start Date End Date Sarah Alejo NP [address] [place] [phone] PCP - General 09/20/18 documented as of this encounter
--- OUTSIDE RECORDS SUMMARY | 2023-12-04 16:39 | XMS_ITS | Encounter Summary ---
Author Organization [facility] Address [address] [place] [address] Care Team Providers Care Body Man Name Role Phone Bryce Dobbins Primary Care Provider [phone] Encounter Details Date Type Department Care Team (Late st Contact Info) Description 07/07/2017 Orders Only [facility] Infectious Disease - [facility] [address] [place], [place] [phone] Josiane Hopkins MD Social History Tobacco Use [...] ( 150 mg) twice daily 900 mL 1 07/07/2017 08/09/2017 dolutegravir 50 mg tablet Take 1 Tab by mouth 2 times daily. 60 Tab 1 07/07/2017 08/09/2017 tenofovir alafenamide fumarate (VEMLIDY) 25 mg tablet Take 25 mg by mouth daily. 30 Tab 1 07/07/2017 08/09/2017 documented in this encounter Plan of Treatment Not on file documented as of this encounter Visit Diagnoses Not on filedocumented in this encounter Discontinued Medications Medication Sig Discontinue Reason Start Date End Da te abacavir-lamiVUDine (EPZICOM) 600-300 mg per tablet Take 1 Tab by mouth daily. 07/07/2017 darunavir (PREZISTA) 800 mg tablet Take 800 mg by mouth daily. Alternate therapy 07/07/2017 ritonavir (NORVIR) 100 mg capsule capsule Take 100 mg by mouth daily. Alternate therapy 07/07/2017 tenofovir (VIREAD) 300 mg tablet Take 300 mg by mouth daily. Alternate therapy 07/07/2017 documented as of this encounter Care Teams Body Man Relationship Specialty Start Date End Date Bryce Dobbins DO [address] [place] [address] PCP - General 03/28/17 03/15/18 documented as of this encounter
--- OUTSIDE RECORDS SUMMARY | 2023-12-04 16:39 | XMS_ITS | Encounter Summary ---
Author Organization [facility] Address [address] [place] [address] Care Team Providers Care Billposting Supervisor Name Role Phone Unavailable Primary Care Provider Unavailabl e Encounter Details Date Type Department Care Team (Late st Contact Info) Description 12/09/2013 Results Only [facility] [phone] Erlin Ahuja MD [address] [place] [address] Social History Tobacco Use Types Packs/Day Years Used Date Smoking Tobacco: Never Assessed Sex and Gender Information Value Date Recorded Sex Assigned at Not on file Gender Identity Not on file Sexual Orientation Not on file documented as of this encounter Plan of Treatment Not on file documented as of this encounter Procedures Procedure Name Priority Date/Time Associated Diagnosis Comments SURGICAL PATHOLOGY Routine 12/09/2013 19 :28 EDT documented in this encounter Results * SURGICAL PATHOLOGY (12/09/2013 19:28 EDT) Pathology Report: SURGICAL PATHOLOGY REPORT Reports generated via electronic interface contain original data; however they are lacking the format of the original report. Caution should be taken when reading/interpreti ng unformatted reports. Name: ? ANNIE PACHECO ? Accession #: ? [id number] ? : ? 1955 (Age: 58) ??F ? Collect Date: ? 12/09/2013 ? Location: ? [facility] ? Receive Date: ? 12/09/2013 ? Provider: ERLIN AHUJA MD Copy to: ELIAS LAWSON MD ? Final Pathologic Diagnosis: A. ??RECTUM, POLYPECTOMY: - Surface hyperplastic change with mucosal prolapse. B. ??COLON, ASCENDING, POLYPECTOMY: - Fragments of tubular adenoma. Document reviewed and electronically signed by: JUAN RODRIGUEZ MD Report ??Date: 12/11/2013 10:56 By the signature above, the attending physician certifies that he/she has personally conducted a gross and/or microscopic examination of the described specimens and rendered or confirmed the above diagnosis. Specimen(s) Received: A. ??Rectal polyp B. ??Ascending colon polyp x3 Clinical History: H/O colon adenomas Gross Description: A. ?Received in formalin labelled with proper patient identification (initials T, M) and #1 rectal polyp are two pink-argueta tissues (0.4 x 0.3 x 0.2 cm and 0.5 x 0.4 x 0.3 cm). Entirely submitted in A1. B. ?Received in formalin labelled with proper patient identification (initials T, M) and #2 ascending colon polyp x3 are three pink-argueta tissues (0.4 x 0.3 x 0.2 cm to 0.5 x 0.4 x 0.2 cm). Entirely submitted in B1. Radha Mccauley 12/10/2013 08:39 AM End of Report APOLONIA SPIVEY 12/09/2013 19:2 8 EDT 12/09/2013 19:28 EDT Erlin Ahuja MD PATHOLOGY [facility] Organization Address City/State/ZIP Co de Phone Number APOLONIA SPIVEY [address] [place] [address] documented in this encounter Visit Diagnoses Not on filedocumented in this encounter
--- OUTSIDE RECORDS SUMMARY | 2023-12-04 16:39 | XMS_ITS | Encounter Summary ---
Author Organization [facility] Address [address] [place] [address] Care Team Providers Care Jewelry Mold Maker Name Role Phone Sarah Alejo DICER MACHINE OPERATOR Primary Care Provider [phone] Reason for Visit * Reason Comments Follow-up Encounter Details Date Type Department Care Team (Late st Contact Info) Description 09/24/2018 9:45 EDT Office Visit [facility] Infectious Disease [address] [phone] Antony Myers DO [address] [facility], [address] [place] [address] Asymptomatic HIV infection (HCC-CMS) (Primary Dx) Social History Tobacco Use Types [...] Progress Notes * Antony Myers DO - 09/24/2018 0945 EDT Images from the original note were not included. Office Visit 04/16/2018 [facility] Infectious Disease [facility] Antony Myers DO HIV (human immunodeficiency virus infection) (HCC-CMS) Dx Follow-up Reason for Visit Progress Notes Expand All Collapse All INFECTIOUS DISEASE CLINIC VISIT ?? Patient name: Josiane Pacheco Today's date: 04/16/2018 ?? Chief Complaint: HIV follow-up care ?? HPI: Ms. Pacheco is a 62 y.o. female with history significant for HIV who presents with routine HIVfollow up. HIV diagnosed in 1990. Most recent CD4 done in August is stable at 152 at 5% but HIV VL unfortunately up to 3109 in August 2018 . Last VL in Mar 2018 was 89. Pt on Dolutegravir 50mg BID, liquid 3TC and 25 mg TAF daily, a regimen that was slected for the small size of tablets of availability of liquid formulation due to difficulty in swallowing in past. Dolutegravir is BID as her seizure medications may lower levels. She is also on bactrim suspension forPCP prophy. Notes indicate pt cared for at both [facility] and [facility] in past with difficulties in adherence but in our last visit, she seemed to be doing better ?? Pt started our visit today indicating she had some type of stomach upset earlier this month and resulted in nausea and vomiting but as visit progressed and we reviewed our concern for VL 3109, pt's story on her adherence to ART became very tangential. Pt focuses on having difficulty taking even these smaller pill recently and frequently complaints of pills getting stuck as she is starting to swallow. She cannot quantify how much of her ART she is not taking due to this. She continues to exercise by lifting weights and walking everywhere ?? Review of Systems: 10-point review of systems is negative except as noted in the HPI. ? Past Medical History: Epilepsy with refractory seizures and required surgery, followed by [facility] Cervical dysplasia Obesity HLD Esophageal stricture, requiring dilation Herpes zoster 2011 Anal fissures ? Etoh abuse ? Poor adherence with ART in past ? Past Surgical History: 2017 Craniotomy for seizures complicated by subdural hematoma Shira botox injections for headaches [place] x 3, last one at [facility] 2014 where she had polyps removed Epiglottis surgery x 3 Hemorrhoid banding 2014 ? Current Outpatient Medications: clonazePAM (KLONOPIN) 1 [...] ? No Known Allergies ?? Social History Tobacco: down to about a pack a week. Alcohol: 2 beers weekly Recreational drugs:none Herbal:none Professional: Not working Relationships / Living Situation: Living alone, has RCT to help with driving. Son is sushi chef in [place] but contact seems very limited. Sexual: Not currently sexually active Exercise: Seems to have good exercise regimen Travel: From [place], went to college in [place], then went to [place] and now in [place]. [place] on vacation. Animal exposure: no pets Food: diet is pretty Social History ?? Socioeconomic History ??? Marital status: ? Spouse [...] Not on file ? Family history: Pertinent for Mom just 2018, was very healthy. Dads history unknown. ? The Family History was reviewed and is non-contributory for a past history of infection or immunocompromised state. ?? Physical Exam Wt General: NAD Skin: no rashes or lesions HEENT and oral exam: AT/NC. EOMI. PERRL. Sclera anicteric. Oropharnyx w/o erythema or exudates. Somewhat poor dentition Neck: supple, no LAD CV: RRR, no MRG, S1 + S2 normal Pulm: CTAB, no wheezes, rales, or rhonchi Abd: BS+, soft, non-tender, non-distended, no hepatosplenomegaly Ext: Warm, well-perfused, no edema, 2+ pulses globally Neuro: A+Ox3, CN2-12 intact, sensation intact, gait stable ?? Assessment and Plan: ?? 1) HIV ?? - Currently on Dolutegravir 50mg po BID, liquid 3TC, 25mg TAF daily, doing very well in 2018 but she is having difficulties at this point. Her VL had been great in Jul 2017 and Oct 2017 at < 20 with a slight blip to 89 in Mar 2018. Then, continued problems with VL 3109 in August 2018 which is concerning. Has good supply of ART. 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 She is tangential and vague at baseline and has flat affect so difficult to read. With VL up to 3109, we need to get a genotype which we will try to do at [facility] later this week. We encouraged pt in the meantime to try to consistently take her meds. In the future, we might ask pt to bring ART to clinic to watch her take it to observe what she is describing with regards to difficulty swallowing ART. We recommended she get follow up with her GI MD (at [facility] but pt didn't seem interested. Would like to see her in one month to assess progress. We have asked her to keep a diary to list the days she can/can not take her ART. - Last VL in August 2018 3109. - Last CD4 count August 2018 is 152 at 5% which is baseline. - OI prophylaxis: Keep up liquid bactrim - Compliance: Vague with regards to pt being consistently able to take her ART due to vomiting and quantify the number of doses she misses. (pills have always been a problem) - Sexual activity: None - HBV/HCV: Hep C Ab neg 2014, hep B surface ab neg/hep B surface ag neg. - Dental exam Needs to get a new dentist, she had a bad experience with dentist in past and we talked about her needed to get a new one at our last visit. - PCM is at [facility] - Needs to see me in one month to check on adherence with ART and other meds. In the mean time, Brittanie will see if local volunteer can check in with patient to help socialize and check on home life ?? 2) Health maintenance - Cholesterol: LDL 117 in Mar 2018 - Diabetes: FSBS 95 in Mar 2018 - Colonoscopy: 2013 with tubular adenoma so recommended a repeat in 2019. Pt will bring this up with PCM - Immunizations:Prevnar 13 in 2012, pneumovax 2009 and 2018. Flu 2019. Tdap in 2019. She is non hepB immune so may benefit from the new hep B vaccine in the future when it becomes avail. - Pap: Last pap 2018, normal by report - Mammogram:In 2019, normal by report ?? 3) Seizures, followed by neurology in . ?? 4) Depression, has seen a therapist in the past. She had a falling out with her son in 2018 which added to stress. Pt really needs to get plugged back in with therapist as her affect seems flatter than during last visits. ?? 5) PCM, seen at [facility] ?? 6) Active smoking, pt down to just 1 pack per week so making progress. ?? It has been a pleasure seeing Ms. Pacheco in clinic today. ?? Antony Myers DO Pager [phone] Josiane Pacheco is a 63 y.o. female [facility] Infectious Diseases Instructions After Visit Summary (Automatic SnapShot taken 04/16/2018) Additional Documentation Vitals: ?? LMP 11/26/2010 Encounter Info: ?? Billing Info, History, Allergies, Detailed Report Orders Placed None Medication Changes eslicarbazepine acetate 800 mg oral 2 TIMES DAILY 400 mg oral 2 TIMES DAILY Medication List Visit Diagnoses HIV (human immunodeficiency virus infection) ([facility]) Problem List documented in this encounter Plan of Treatment Not on file documented as of this encounter Visit Diagnoses Diagnosis Asymptomatic HIV infection ([facility])- Primary Asymptomatic human immunodeficiency virus (HIV) infection status documented in this encounter Care Teams Jewelry Mold Maker Relationship Specialty Start Date End Date Sarah Alejo NP [address] [place] [id number] PCP - General 09/20/18 documented as of this encounter
--- OUTSIDE RECORDS SUMMARY | 2023-12-04 16:39 | XMS_ITS | Encounter Summary ---
Author Organization [facility] Address [address] [place] [address] Care Team Providers Care Offset Machine Operator Name Role Phone Bryce Dobbins Primary Care Provider [phone] Reason for Visit * Reason Comments Follow-up Encounter Details Date Type Department Care Team (Late st Contact Info) Description 06/14/2017 14:15 EDT Office Visit [facility] Infectious Disease - [id number] [place] [address] Josiane Hopkins MD AIDS (acquired immune deficiency syndrome) ([facility]) (Primary Dx); Seizure disorder ([facility]) Social History Tobacco Use Types Packs/Day Years [...] 10 mL by mouth daily. 300 mL 2 06/14/2017 08/09/2017 documented in this encounter Progress Notes * Josiane Hopkins MD - 06/14/2017 1415 EDT [facility] DOS: 06/14/2017 Last seen: 03/29/2017 Subjective: Josiane presents for reevaluation of her HIV disease/AIDS She was seen by me in February of this year to establish care in the [facility] in [facility]. She had previously been followed by Dr. Heaton at [facility]. The time of her last visit she had acute respiratory complaints and I was concerned that she could have pneumocystis as she had not been on pneumocystis prophylaxis despite having a CD4 count of less than 200 since 2014. I asked for her to go in for O2 sat exa mination and a chest x-ray. In addition we plan to repeat her blood work. I did not get any recordsafter the visit so I presumed that she did not follow through with the plan. She did eventually have blood work and the O2 sat exam performed. She comes in today to discuss results and to make a planin terms of antiretroviral therapy. She says that her respiratory symptoms resolved completely since she was last seen. Denies cough, chest pain, shortness of breath at present. Review of systems is significant for ongoing swallowing issues. She has had EGD with esophageal dilatation on 2 occasions at [facility]. I do not see any record that she is ever had a swallow study. She says she struggles to swallow her medications. She often throws up the medications. She says this hasbeen a long- term issue. She also has trouble swallowing food. No odynophagia. She says that the swallowing issues interfere with her ability to take her HAART regularly Depression is about the same. She denies any new complaints Allergies she says she is allergic to some seizure medications but she cannot tell me the name Medications were reviewed and documented in prism. HAART regimen: RTV/TDF/ABC/3TC/DRV PMH HIV positive since 1990. She has [...] She has been followed by neurology at [facility]. She has even had surgery for refractory [...] History of anal fissure ? ETOH abuse PSH Cholecystectomy Craniotomy for seizure control Botox injections for headaches Had colonoscopy x 3 (Last colo at [facility] 2013-I can see that she had 2 polyps removed. Pathology from11/2013 is significant for fragments of a tubular adenoma Epiglottis surgery ??3 Hemorrhoid banding 2013 SH Lives alone in [facility] smokes1/2 ppd New sexual partner (Fabio - who she has known for 19 yrs and who recently came back into her life) they practice safer sex Using ETOH once a month No marijuana Denies other drug use She has a 20 [id number] son, Josh, who lives in [place] Her mother in April of last year She says she lifts weights daily Says she walks on a regular basis Has [facility], Medicare/ Medicaid No pets FH But she knows her father is still living in his late 80s Mother 2016 of lung cancer 1 sister in good health PE: Patient alert. Nontoxic, no acute distress, comfortable on room air. Affect not depressed No other physical exam performed as almost the entire 60 minute visit was spent on counseling regarding antiretroviral therapy 05/10/2017: O2 sat at rest 93% with a heart rate of 94 with walking O2 sat decreased to 89% with an increase in her heart rate 234 Within 2 minutes her O2 sat recovered to 92% and heart rate came down to 99 No chest x-ray performed Labs: 04/10/2017: HIV PCR 9310 TSH 5.18 Creatinine 0.67 Glucose 87 AST/ALT 36/38 Phosphorus 3.9 05/02/2017: WBC 3.5 HCT 43.2 PLT 142k AST/ALT 44/50 Creatinine 0.69 CD4 = 73 (5.6%) Review of labs [...] of opportunistic infection. Per the records from [facility] the patient has been nonadherent with her HAART. When I saw her in February she said she has been taking her medications regularly since they were refilled by Dr. Dobbins. Repeat HIV PCR in March demonstrated a viral load of over 9000 copies. In review of the records from [facility] she had frequent det ectable viral load sometimes at high levels despite the fact that she said she was taking her medications regularly. She had genotypic resistance testing performed on more than one occasion and no mutations were identified. Unclear why she is not adherent with her medications. Notes in the [facility] records suggest that EtOH use may be contributing to her nonadherence although she denies regular alcohol use. She has a long history of depression and unclear if depression is playing some role in her medication nonadherence. She also has had ongoing swallowing issues which may be affecting her ability to take her medications regularly. Her present regimen involves some very large pills which wouldbe a problem in terms of dysphasia. Her last esophageal dilatation was 12/2015. I think we need to workup her swallowing issues further but in the meantime would consider getting her on a regimen of smaller pills or liquid medications to see if that may help her to take her medications regularly. She really does not remember her prior ART regimens. She was seen [facility] back in the late 1990s and was on AZT and ddC at one- point. She does not remember any treatment with any of the NNRTIs. She has never been on in integrates inhibitor. With her history of intermittent nonadherence she would be at high risk for resistance although she has never been documented to have any resistant mutations. She is not having any ongoing respiratory complaints but she is at high risk for opportunistic infection in view of her low CD4 count. Unclear why she was not on Bactrim for pneumocystis prophylaxis.Her CD4 count has been <200 since 2014. She does have trouble swallowing large tablets but we can give her her Bactrim as a suspension. In terms of HAART we discussed transitioning her to a regimen that would entail liquid formulation or smaller pills. We could change her TDF to TAF in the form of Vemlidy as the tablets are small. Wecould replace her darunavir/ritonavir with dolutegravir which also is a small tablet. We could continue EPIVIR using oral suspension. There is some risk to making a change without any documented resistance in the past but with her long history of nonadherence. I think we need to weigh the potentialbenefit of being able to swallow smaller tablets with possible improved adherence versus risk of giving her a regimen that is not powerful enough to suppress her viral load fully. In terms of drug interactions there appears to be a drug interaction between her seizure meds and the dolutegravir can result in decreased dolutegravir levels. Although she is not integrates experienced because of this interaction we could consider giving her dolutegravir twice daily. With the use of the Epivir suspension I also think we would need to give her twice daily dosing. She does not think that twice a day d osing is a problem as some of her seizure meds are twice daily. 2. Seizure disorder -very complicated history of uncontrolled seizures. 3. Depression -she is still grieving the loss of her mother but she does not think her depression is worse. Denies suicidal ideation 4. h/o Anal fissure - not evaluated today 5. Health maintenance -not sure that I have [...] normal. Dr. Dobbins is referring her to [facility] for follow-up. She refuses to see the dentist thatt[facility]os had a bad experience the last time she was there. Last colonoscopy in 2013 was significant for tubular adenoma so she would be due for repeat colonoscopy in 2019. Last mammogram in her outside records was 2014 but again she may have had a mammogram more recently in [place]. She had a primary care physician here in [facility] but he is since retired. Would be worth getting her records from thatoffice to look at her immunization history. Unclear if those were transferred to Dr. Dobbins. I do not have any record that she is received Prevnar or an updated Pneumovax. Unclear if she received a flu vaccine this season. She did have a Tdap in 2008. PLAN Start Bactrim suspension 10 mL's once daily Would have her stop her present HAART as I do not think she is taking it regularly because of swallowing issues Would favor a formal swallow study -will discuss with Dr. Dobbins If she tolerates the liquid Bactrim ??2 weeks would plan to start a new HAART regimen with: Vemlidy (TAF) 25 mg tab daily Tivicay ( dolutegravir) 50 mg TWICE daily Epivir oral solution 10mg/cc to take 15 cc (150 mg ) twice daily repeat blood work with HIV PCR, CMP, phosphorus after she has been on her new regimen for 4 weeks Brittanie Martinez will follow up with Josiane every week during this transition FU with me in [facility] in July documented in this encounter Plan of Treatment Not on file documented as of this encounter Visit Diagnoses Diagnosis AIDS (acquired immune deficiency syndrome) (HCC-CMS)- Primary Human immunodeficiency virus [HIV] disease Seizure disorder (HCC-CMS) Unspecified epilepsy without mention of intractable epilepsy documented in this encounter Care Teams Offset Machine Operator Relationship Specialty Start Date End Date Bryce Dobbins DO [address] [place] [address] PCP - General 03/28/17 03/15/18 documented as of this encounter
--- OUTSIDE RECORDS SUMMARY | 2023-12-04 16:39 | XMS_ITS | Encounter Summary ---
Author Organization [facility] Address [address] [place] [address] Care Team Providers Care Dope House Operator Helper Name Role Phone Shannen Rodriguez DO Primary Care Provider [phone] Reason for Visit * Reason Comments Follow-up Encounter Details Date Type Department Care Team (Late st Contact Info) Description 04/16/2018 14:15 EST Office Visit [facility] Infectious Disease - [address] [phone] Antony Myers DO [address] [facility] [place] [address] HIV (human immunodeficiency virus infection) ([facility]) (Primary Dx) Social History Tobacco Use [...] Dispensed Refills Start Date End Da te eslicarbazepine (APTIOM) 400 mg tablet Take 1 Tab by mouth 2 times daily for 30 days. 60 Tab 04/16/2018 05/16/2018 documented in this encounter Progress Notes * Antony Myers DO - 04/16/2018 1415 EST INFECTIOUS DISEASE CLINIC VISIT Patient name: Josiane Pacheco Today's date: 04/16/2018 Chief Complaint: HIV follow-up care HPI: Ms. Pacheco is a 62 y.o. female with history significant for HIV who presents with routine HIVfollow up. HIV diagnosed in 1990. Most recent CD4 done in Mar 2018 was 107 (down a little from 141 in Oct 2017) and HIV VL still pending. Last VL in Oct 2017 was < 20. Pt on Dolutegravir 50mg BID, 3TC and TAF, a regimen that was slected for the small size of tablets of availability of liquid formulation due to difficulty in swallowing in past. Dolutegravir is BID as her seizure medications may lower levels. She is also on bactrim suspension for PCP prophy. Notes indicate pt cared for at both [facility] and [facility] in past with difficulties in adherence but seems to be back on course. Seems to be doing well. Exercises by lifting weights. Wt is a little elevated, she's working on it.Had what sounded like a viral URI with fevers in mid Feb but has recovered. Review of Systems: 10-point review of systems is negative except as noted in the HPI. Past Medical History: Epilepsy with refractory seizures and required surgery, followed by [facility] Cervical dysplasia Obesity HLD Esophageal stricture, requiring dilation Herpes zoster 2011 Anal fissures ? Etoh abuse ? Poor adherence with ART in past Past Surgical History: 2017 Craniotomy for seizures complicated by subdural hematoma Shira botox injections for headaches [place] x 3, last one at [facility] 2013 where she had polyps removed Epiglottis surgery x 3 Hemorrhoid banding 2013 Current Outpatient Medications: clonazePAM (KLONOPIN) 1 mg [...] tablet Take 25 mg by mouth daily. No Known Allergies Social History Tobacco: 1/2 PPD Alcohol: 2 beers weekly Recreational drugs:none Herbal:none Professional: Not working Relationships / Living Situation: Living alone, has RCT to help with driving. Son is drip pumper in [place] Sexual: Not currently sexually active Exercise: Seems to have good exercise regimen Travel: From [place], then went to [place] and now in [place]. [place] on vacation. Animal exposure: no pets Food: diet is pretty Social History Socioeconomic History ??? Marital status: Spouse name: Not on file ??? Number [...] Smoking status: Current Every Day Smoker Packs/day: 0.50 ??? Smokeless tobacco: Never Used Substance and Sexual Activity ??? Alcohol use: Yes Comment: 2 beers per week ??? Drug use: No ??? Sexual activity: Not Currently Partners: Male control/protection: Condom Other Topics Concern ??? Not on file Social History Narrative ??? Not on file Family history: Pertinent for Mom just 2018, was very healthy. Dads history unknown. The Family History was reviewed and is non-contributory for a past history of infection or immunocompromised state. Physical Exam P 84 r 16 124/80 General: NAD Skin: no rashes or lesions [...] A+Ox3, CN2-12 intact, sensation intact, gait stable Assessment and Plan: 1) HIV - Currently on Dolutegravir 50mg po BID, 3TC, TAF, doing very well. CD4 seems a little stalled in its recovery. Her VL have been great in Jul 2017 and Oct 2017 with today's pending so suspect good adherence. Has good supply of ART. - Last CD4 count Mar 2018 107 (down a little from last one in Oct 2017 of 141) - Last HIV viral load Pending, was < 20 in Oct 2017 - OI prophylaxis: Keep up liquid bactrim until we can get CD4 > 200 for 3 months while pt VL stays < 20 - Compliance: Perfect - Sexual activity: None - HBV/HCV: Hep C Ab neg 2014, hep B surface ab neg/hep B surface ag neg. - Dental exam Needs to get a new dentist, she had a bad experience with dentist in past so will look for new one. - PCM is prior Dr Dobbins but pt without a PCP now. We recommenced she get a PCP at [facility] and ptgiven number to call - Needs to follow up with me in 6 months for next routine eval at which time we'll need CD4, VL, lipids and chemistries 2) Health maintenance - Cholesterol: LDL 117 in Mar 2018 - Diabetes: FSBS 95 in Mar 2018 - Colonoscopy: 2013 with tubular adenoma so recommended a repeat in 2019. - Immunizations:Prevnar 13 in 2012, pneumovax 2009 so needs pneumovax today and flu today. Tdap in 2008 so needs Td at [facility] when avail along with shingrix. She is non hep B immune so may benefit from the new hep B vaccine in the future. - Pap: Last pap 2013, Pt will get new PCM to get PAP or a referral to local advertising dispatch clerk - Mammogram:In 2014 per records, needs repeat with PCM. 3) Seizures, followed by neurology in [place]. I recommended she follow up with him at least annually. I gave her a month of aptiom to hold her over until she gets a follow up. 4) Depression, has seen a therapist in the past. She had a falling out with her son in 2018 which added to stress. Pt to follow up with therapist prn. 5) PCM, needs to get a new one at [facility]. Birttanie gave pt number to call to assist with mammogram/PAP etc. 6) Active smoking, we recommend she at least try to cut down. It has been a pleasure seeing Ms. Pacheco in clinic today. Antony Myers DO Pager [phone] Infectious Diseases documented in this encounter Plan of Treatment Not on file documented as of this encounter Visit Diagnoses Diagnosis HIV (human immunodeficiency virus infection) ([facility])- Primary Asymptomatic human immunodeficiency virus (HIV) infection status documented in this encounter Care Teams Dope House Operator Helper Relationship Specialty Start Date End Date Shannen Rodriguez DO [address] [place] [address] PCP - General 03/16/18 09/19/18 documented as of this encounter
[2023-12-04 19:41] LABS: Abs Immature Grans 0.01 10^3/uL (0.0-0.06); Absolute Basophil Count 0.03 10^3/uL (0.0-0.2); Absolute Eosinophil Count 0.13 10^3/uL (0.0-0.7); Absolute Lymphocyte Count 1.75 10^3/uL (1.2-3.4); Absolute Monocyte Count 0.21 10^3/uL (0.1-0.8); Absolute Neutrophil Count 3.07 10^3/uL (1.2-6.7); Basophils % 0.6 %; Eosinophils % 2.5 %; HCT 38.3 % (36.0-46.0); HGB 13.8 g/dL (11.2-15.7); Immature Grans % 0.2 %; Lymphocytes % 33.7 %; MCH 41.7 pg (27.0-33.0); MCV 116 fL (80-95); MPV 8.9 fL (8.0-11.0); Platelet Count 189 10^3/uL (130-400); RBC 3.31 10^6/uL (3.93-5.22); RDW 14.3 % (11.7-14.6); RDW-SD 61.7 fL
[2023-12-04 19:52] LABS: Diff Comment RBC Morph Reviewed; Macrocytosis 2+
[2023-12-04 19:53] LABS: ALT 40 U/L (14-59); AST 55 U/L (15-37); Albumin 3.4 g/dL (3.4-5.0); Alkaline Phosphatase 84 U/L (46-116); BUN 8 mg/dL (7-18); Bilirubin, Total 0.41 mg/dL (0.2-1.0); Chloride 102 mmol/L (98-107); Estimated GFR 62.13 (mL/min/1.73m2); Glucose 92 mg/dL (74-106); Sodium 137 mmol/L (136-145); Total Protein 7.6 g/dL (6.4-8.2)
[2023-12-06 14:55] LABS: 4/8 Ratio 0.08 (>=0.90); Absolute CD3 1844 Cells/uL (840-2669); Absolute CD8 1710 Cells/uL (154-1097); CD3 86 % (56-84); CD4 6 % (31-64); CD8 80 % (9-39)
[2023-12-07 12:29] LABS: HIV 1 RNA Qualitative Undetected Copys/mL (Undetected)
== END 2023-12-04 16:27 | disposition home or self-care (01) ==
LOC: LBN 16:26
PROVIDERS: PCP Nurse Practitioner; Visit Provider Nurse Practitioner Family
DX: B20 Human immunodeficiency virus [HIV] disease (principal)
CPT/HCPCS: 80053; 87536; 85025; 86359; 86360

== ENCOUNTER 2024-02-23 14:52 | Outpatient (CLI) | payer OTHER, MEDICAID, SELFPAY ==
--- NOTE | 2024-02-23 14:57 | W.CCNOTE ---
Comprehensive Care Clinic Note Note: Josiane is seen at home today for F/U of HIV/AIDS and a H/O esophageal stricture and severe dysphasia now getting q 2 month ART injections with Cabenuva. She has wasting and failure to thrive when RXd po ART which for extended stretches she was unable to swallow. She has done remarkably well with the injectable HIV meds. She transitioned to the injectable HIV meds this summer and has had no side effects. She states she feels well and has very little injection site soreness. Her last lab work in early November,, showed normal LFTs and an undetectable VL. Her CD4 count remains below 200 at 138. She is taking PJP prophylaxis. ROS Constitutional: denies fever, chills, night sweats Skin: Denies rash Head: Denies trauma, head pain Eyes: Denies visual disturbance, has reading glasses Ear/Nose/Throat: Negative Mouth/Teeth: Poor dentition Neck: No pain or stiffness CV: Denies chest pain, pressure, palpitations Respiratory: denies dyspnea, hemoptysis GI: No N/V/D/C or rectal bleeding : Negative Musculoskeletal: She had a seizure last week and has aching and contusion of her right shoulder. Denies other joint and back pain Endocrine: No polyuria, polydipsia; heat or cold intolerance Lymphatic: Has not noted any enlarged nodes Hematologic: No unusual bleeding, bruising Immunologic: CD4 count 138 w a undetectable VL on 12/04/23 Neurological: No seizures in Nov or Dec, but had a big one last week? last before this was in October. Denies tics or tremor Psychiatric: Feels her depression is better Allergies/Sensitivities: NKDA Current Medications: Cabenuva (Cabotegravir/Raltegravir) Bactrim Suspension Antiseizure medications as RXd by Satya Wills MD, [facility] Neuro Medical / Surgical History Update: Nothing new Psychiatric History Update: Feeling less isolated and depressed with still having visits from neighbors Social History Update: Nothing significant Employment: Diabled Health Insurance: Well Care/Medicare Advantage, Medicaid Substance Use: ? Tobacco: quit ? ETOH: Denies ? Drug Use: Denies Family History Update: ?Nothing new Immunization Needed? Getting at PCP Health Maintenance: Getting at PCP OBJECTIVE Weight: 206# ?Height:5?8? Temp: 98.6, Pulse: 86, Respirations: 14, Blood Pressure: 128/70 General: ?WDWNL Skin: ?W/D, no rash or lesions noted Head: ?NCAT Eyes: non icteric Ears, Nose, Mouth: NE due to masking Teeth: Missing teeth Neck: Supple, Thyroid non palp, no swelling/crepitus Chest: Full, equal expansion, Lungs clear on all lobes CV: RRR, No MCRG, extremity pulses 2/4 w symmetry Abdomen: NABS, ND, NT, No OGM or masses felt, No Bruits : NE Neuro: Gait strong and steady, No tics or tremor, Strength 5/5 all extremities, DTRs 2/4 Lymphatic: No palpable enlarged nodes Ortho: FROM of her right shoulder with tenderness in the bicepts tendon area and over lying contusion Psychiatric: Mood euthymic, affect normal, eye contact good ASSESSMENT/PLAN ? HIV/AIDS ? Undetectable with long acting injectable medication but T cells still below 200 necessitating PJP prophylaxis to continue Cabenuva injections administered IM - RVG Cabotegravir, LVG Raltegravir. MD visit scheduled: In Spring 2024, & prn Lab work ordered: UTD will be due in spring, sooner if there is symptom changes AIDS Wasting - Josiane has gained weight since now able to swallow following the esophageal dilatations. Her Total Protein and Albumin are once again normal. Her muscle mass/fat ratio remains low. Provider of Care:? Brittanie Pina, MSN, OPERATIONS BUSINESS PARTNER
== END 2024-02-23 14:53 | disposition home or self-care (01) ==
LOC: CCC 14:54
PROVIDERS: PCP Nurse Practitioner; Visit Provider Nurse Practitioner Family
DX: B20 Human immunodeficiency virus [HIV] disease (principal); Z79.899 Other long term (current) drug therapy
CPT/HCPCS: 99214

== ENCOUNTER 2024-04-22 11:44 | Outpatient (CLI) | payer MEDICARE, MEDICAID, SELFPAY ==
--- NOTE | 2024-04-22 12:39 | CCCE_ITS ---
Comprehensive Care Clinic Note Note: [facility] [address] [place], [place]? [address] [facility] Visit for Medical Follow Up Name: Josiane Pacheco Medical Record [id number]? Date of :? 1955? Primary Care Provider: [facility] Date of Service: 04/22/2024 SUBJECTIVE CC: Home Visit for status check due to Active HIV/AIDS disease with low CD4, high viral load, wasting and anemia fall 2022, due to unable to consistently swallow medication nor food. 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 She had esophageal dilatations and endoscopies during that time with Dr. Cordova @ at [facility], was able then to swallow her HIV medications consistently and reach an undetectable viral load. She then transitioned to the injectable HIV medication Cabenuva in the summer of 2023. She is now on a q 8 week schedule for the injections of the Cabenuva (Cabotegravir/Raltegravir). HPI: Josiane has been feeling fairly well but not leaving her home due to the icy winter conditions. She has her medications delivered tot her home and the Cabenuva injections are delivered by cassia to the [facility] the morning of the day of her home visit for administration. they were delivered today at 11:30am from the [facility]. She is taking the Bactrim liquid daily for her low T cell count. She had been above 200 for a time and stopped it. She went below 80 but in November her CD4 was up to 138 w a %of 6 and an undetectable viral load, the first undetectable in a couple years. It is critical that she be able to swallow the HIV medications as well as her anti-seizure medication. Since we had a conversation with Dr. Wills and he said she may crush her Vimpat tabs, she has been trying to do so without much success as she does not have a pill car lubricator. One will be provided for her through this clinic. It is stressed to her to take all her medications to stop seizures so she does not have one during the procedure on Monday. She thinks she will be able to do this now that they can be crushed. ROS Constitutional: Easily fatigued, better appetite but still ?I don?t taste much?, interrupted sleep. Weight is up some. Skin: dry on arms, trunk and legs, very little puretic sensation Head: Denies trauma, has post seizure headaches. Eyes: Denies visual disturbance, has reading glasses Ear/Nose/Throat: +Rhinorrhea ? clear, frequent nose blowing, Mouth/Teeth: Missing teeth and needs dental attention, no lesions/exudate Neck: No pain or stiffness CV: Denies chest pain or pressure, gets palpitations with exertion Respiratory: Some smokers cough in the morning, + dyspnea w exertion, frequently will have to sit down if she does stair climbing, denies hemoptysis GI: intermittent N/V/D, no rectal bleeding : no frequency or dysuria/ burning with urination Musculoskeletal: She continues to have left shoulder pain after a seizure and falling 2 months ago. No other joint or back pain Endocrine: No polyuria, polydipsia; Has both heat and cold intolerance Lymphatic: Has not noted any enlarged nodes Hematologic: No unusual bleeding, bruising Immunologic: CD4 count has been below 200 numerous times, was below 80 1 1/2 years ago but now is up to 138, + risk for OI - taking prophylactic antibiotic for PJP prevention Psychiatric: + Anxiety, Depression, Denies SI/HI Allergies/Sensitivities: NKDA Current Medications: (reconciliation done today) ? she is not consistently keeping these down other than the liquids. Cabenuva (Cabotegravir/Raltegravir) q 8 weeks but injections Sulfametethozole 200 mg/40 mg/5 ml ? 400/800 mg (1o ml) daily Neurology meds lacosamide (Vimpat) 100 mg q AM, 200mg q PM Clonazepam 1 mg bid Hydroxizine 10 mg/ 5 ml ? 12.5 ml (125 mg) tid prn anxiety meloxicam 7.5 mg bid Medical / Surgical History Update: She now has appointments at [facility] for esophegeal dilatations q 6 months Psychiatric History Update: Chronic depression ? she says now she feels more hopeful Social History Update: Wants to move but has been voicing this for a few years Employment:? Disabled Health Insurance: [employer] [place], Medicare, and Medicaid Substance Use: ? Tobacco: stopped smoking she says ? ETOH: Denies now ? Drug Use: Never Immunization Needed? She is UTD at present Health Maintenance: UTD w PCP OBJECTIVE Height: 5?6?Weight: 200 Temp: 97.5 F ?Pulse: 80 Respirations: 16 @ rest ? Blood Pressure: 114/72, Ambulatory SAO2% 96 General:? WDWNL, Ambulatory INAD Skin:? W/D, follicular rash on arms, trunk and legs, no petechial rash noted today Head:? NCAT Eyes: non icteric Ears, Nose, Mouth: NE due to masking Sinuses: Tender frontal facial sinus area w/o boggy feel, maxillary neg. Teeth: NE Neck: Supple, Thyroid non palp, no swelling/crepitus Chest: Full, equal expansion, some scattered wheezes on expiration and diminished breath sounds in the right base CV: RRR, No MCRG, extremity pulses 2/4 w symmetry Abdomen: NABS, ND, NT, No OGM or masses felt, No Bruits : NE Neuro: Gait strong and steady, No tics or tremor, Strength 5/5 all extremities, DTRs 2/4 Lymphatic: No palpable enlarged nodes Ortho: She has limited ROM of her left shoulder ? rotator cuff injury, FROM all other joints w/o swelling or erythema Psychiatric: - appearance: well groomed - eye contact: fair - attitude: cooperative - speech: normal for her usual aki - affect: appropriate - mood: depressed - memory: short term intact, manager long term care intact - self-perception: WNL - motor activity: normal - orientation: intact - attention: intact - thought process: logical - thought content: normal - perceptions: WNL - judgement: intact - insight: good ASSESSMENT/PLAN HIV/AIDS - She has had improvement with the injectable HIV medication with some recovery of her CD4 count and in November an undetectable viral load. Today she had the Cabenuva (Cabotegravir/Raltegravir) injections and will be due on the end of May for the next injections. [facility] will arrange for Cassia delivery of the medication to the [facility]. She will continue the other medications including the Bactrim Suspension and the anti- seizure medications as RXd by Satya Wills MD, [facility]. MD visit will be scheduled: June 2024 Lab work ordered:? In May 2024 these will be drawn at a home visit follow up. Provider of Care:? Brittanie Pina, MSN, ELECTRICAL LINEMAN
== END 2024-04-22 11:45 | disposition home or self-care (01) ==
LOC: CCC 12:35
PROVIDERS: PCP Nurse Practitioner; Visit Provider Nurse Practitioner Family
DX: B20 Human immunodeficiency virus [HIV] disease (principal); Z79.899 Other long term (current) drug therapy; M62.50 Muscle wasting and atrophy, not elsewhere classified, unspecified site; Z86.2 Personal history of diseases of the blood and blood-forming organs and certain disorders involving the immune mechanism; G40.909 Epilepsy, unspecified, not intractable, without status epilepticus
CPT/HCPCS: 96372; 99214

== ENCOUNTER 2024-06-24 14:13 | Outpatient (CLI) | payer MEDICARE, MEDICAID, SELFPAY ==
[2024-06-24 13:31] LABS: Abs Immature Grans 0.02 10^3/uL (0.0-0.06); Absolute Basophil Count 0.03 10^3/uL (0.0-0.2); Absolute Eosinophil Count 0.04 10^3/uL (0.0-0.7); Absolute Lymphocyte Count 1.41 10^3/uL (1.2-3.4); Absolute Monocyte Count 0.35 10^3/uL (0.1-0.8); Absolute Neutrophil Count 4.68 10^3/uL (1.2-6.7); Basophils % 0.5 %; Eosinophils % 0.6 %; HCT 36.6 % (36.0-46.0); Immature Grans % 0.3 %; Lymphocytes % 21.6 %; MCH 41.5 pg (27.0-33.0); MCHC 35.5 % (32.0-36.0); MCV 117 fL (80-95); Monocytes % 5.4 %; Neutrophils % 71.6 %; Platelet Count 140 10^3/uL (130-400); RBC 3.13 10^6/uL (3.93-5.22); RDW 13.8 % (11.7-14.6); RDW-SD 59.5 fL; WBC 6.53 10^3/uL (4.4-10.8)
[2024-06-24 14:22] LABS: ALT 21 U/L (14-59); AST 29 U/L (15-37); Albumin 3.2 g/dL (3.4-5.0); Alkaline Phosphatase 80 U/L (46-116); Anion Gap 10.1 mmol/L (3-11); BUN 10 mg/dL (7-18); Bilirubin, Total 1.1 mg/dL (0.2-1.0); CO2 29.9 mmol/L (21.0-32.0); Calcium 9.1 mg/dL (8.5-10.1); Chloride 106 mmol/L (98-107); Estimated GFR 62.13 (mL/min/1.73m2); Glucose 112 mg/dL (74-106); Potassium 3.3 mmol/L (3.5-5.1); Sodium 146 mmol/L (136-145); Total Protein 6.9 g/dL (6.4-8.2)
[2024-06-25 13:37] LABS: 4/8 Ratio 0.09 (>=0.90); Absolute CD3 1433 Cells/uL (840-2669); Absolute CD8 1319 Cells/uL (154-1097); CD3 85 % (56-84); CD4 7 % (31-64); CD8 79 % (9-39)
[2024-06-27 15:06] LABS: HIV 1 RNA Qualitative Undetected Copys/mL (Undetected)
== END 2024-06-24 14:14 | disposition home or self-care (01) ==
LOC: LBO 14:13
PROVIDERS: PCP Nurse Practitioner; Visit Provider Nurse Practitioner Family
DX: B20 Human immunodeficiency virus [HIV] disease (principal); Z79.899 Other long term (current) drug therapy
CPT/HCPCS: 36415; 80053; 87536; 85025; 86359; 86360

== ENCOUNTER 2024-06-26 14:19 | Outpatient (CLI) | payer MEDICARE, MEDICAID, SELFPAY ==
--- NOTE | 2024-07-03 14:24 | CCCE_ITS ---
Comprehensive Care Clinic Note Note: [facility] ?[address] ?[place], [place]? [address] [facility] Visit for Medical Follow Up Name: Josiane Pacheco? Medical Record [id number]? Date of :? 1955? Primary Care Provider: [facility] Date of Service: 06/26/2024 SUBJECTIVE CC: In office visit for status check due to Active HIV/AIDS disease. Josiane has had a remarkable comeback from a low CD4, high viral load, wasting and anemia fall 2022, due to an inability to consistently swallow medication nor food therefore she was not getting at least 50% of her HIV medications staying down when she would swallow them. 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 She had esophageal dilatations and endoscopies during that time with Dr. Cordova @ at [facility], was able then to swallow her HIV medications consistently and reach an undetectable viral load. She then transitioned to the injectable HIV medication Cabenuva (Cabotegravir/Raltegravir) in the summer of 2023. She is now on a q 8 week schedule for the injections of the Cabenuva. She is due today and the medication was delivered to the office by cassia from the [facility]. She had a follow up telehealth visit with Dr. Myers 2 days ago. HPI: Some days, Josiane feels fairly well but others she stays home due to diarrhea, some of which is bloody. She does not have abdominal pain but when she gets the urge to pass gas or defecate, she must run to the bathroom or she will be incontinent of stool. She says she is eating mostly a soft or liquid diet due to her poor dentition. She says she is taking all of her oral medications as RXd. She is taking the liquid Bactrim. Her other medications are either liquid or very small tabs. Dr. Wills, her neurologist, said she may crush her Vimpat tabs A Cassia delivers the Cabenuva injections to the [facility] the morning of the day of the scheduled visit for administration and her other medications delivered to her home. She is taking the Bactrim liquid daily for her low T cell count. She had been above 200 for a time and stopped it. She went below 80 earlier in 2023 and started it again. In November her CD4 was up to 138 w a %of 6 and an undetectable viral load, the first undetectable in a couple years. The Bactrim will continue until she is above 200 of the CD4 for 6 months or so. ROS Constitutional: Easily fatigued, better appetite but still ?I don?t taste much?, interrupted sleep. Weight is up some. Skin: dry on arms, trunk and legs, very little puretic sensation Head: Denies trauma, has post seizure headaches. Eyes: Denies visual disturbance, has reading glasses Ear/Nose/Throat: +Rhinorrhea ? clear, frequent nose blowing, Mouth/Teeth: Missing teeth and needs dental attention at some pain, no lesions/exudate Neck: No pain or stiffness CV: Denies chest pain or pressure, gets palpitations with exertion Respiratory: Some smokers cough in the morning, + dyspnea w exertion, frequently will have to sit down if she does stair climbing, denies hemoptysis GI: Rare N/V now but daily diarrhea that is bloody at times. : no frequency or dysuria/ burning with urination Musculoskeletal: She continues to have left shoulder pain after a seizure and falling 2 months ago. She C/O limited ROM but states it is better. No other joint or back pain Endocrine: No polyuria, polydipsia; does have both heat and cold intolerance Lymphatic: Has not noted any enlarged nodes Hematologic: No unusual bleeding, bruising other the bloody stools Immunologic: CD4 count has been below 200 numerous times, was below 80 1 1/2 years ago but now is up to 138, + risk for OI - taking prophylactic antibiotic for PJP prevention. Blood work was drawn Monday when she saw Dr. Myers. Psychiatric: + Anxiety, Depression, Denies SI/HI Allergies/Sensitivities: NKDA Current Medications: (reconciliation done today) ? she is not consistently keeping these down other than the liquids. Cabenuva (Cabotegravir/Raltegravir) q 8 weeks but injections Sulfametethozole 200 mg/40 mg/5 ml ? 400/800 mg (1o ml) daily Neurology meds lacosamide (Vimpat) 100 mg q AM, 200mg q PM Clonazepam 1 mg bid Hydroxizine 10 mg/ 5 ml ? 12.5 ml (125 mg) tid prn anxiety meloxicam 7.5 mg bid Medical / Surgical History Update: She is supposed to have appointments at [facility] for esophageal dilatations q 6 months but none has been set up. She called on Monday and is waiting for a call back to see if she can get one on the same day she had an appointment with her neurologist I early July Psychiatric History Update: Chronic depression ? she says now she feels more hopeful Social History Update: Wants to move but has been voicing this for a few years. Mostly she feels comfortable and does not want change. ?Employment:? Disabled ?Health Insurance: [employer] [place], Medicare and Medicaid Substance Use: ? Tobacco: quit again ? ETOH: Denies now ? Drug Use: Never Immunization She is UTD at present and will need flu and Covid booster in November ?Health Maintenance: UTD w PCP OBJECTIVE Height: 5?6?Weight: 192 Temp: 98.5 F ?Pulse: 84 Respirations: 16 @ rest ? Blood Pressure: 110/70, Ambulatory SAO2% 98 ?General:? WDWNL, Ambulatory INAD ?Skin:? W/D, follicular rash on arms, trunk and legs, no petechial rash noted today ?Head:? NCAT ?Eyes: non icteric ?Ears, Nose, Mouth: NE due to masking Sinuses: Nontender. ?Teeth: NE ?Neck: Supple, Thyroid non palp, no swelling/crepitus ?Chest: Full, equal expansion, some diminished breath sounds in the right base ? no wheezes or crackles ?CV: RRR, No MCRG, extremity pulses 2/4 w symmetry ?Abdomen: NABS, ND, NT, No OGM or masses felt, No Bruits ?: NE ?Neuro: Gait strong and steady, No tics or tremor, Strength 5/5 all extremities, DTRs 2/4 ?Lymphatic: No palpable enlarged nodes ?Ortho: She has limited abduction of her left arm/shoulder FROM all other joints w/o swelling or erythema ?Psychiatric: ?- appearance: well groomed ?- eye contact: fair - attitude: cooperative ?- speech: normal for her usual aki ?- affect: appropriate ?- mood: depressed ?- memory: short term intact, detention intact ?- self-perception: WNL ?- motor activity: normal ?- orientation: intact ?- attention: intact ?- thought process: logical - thought content: normal ?- perceptions: WNL ?- judgement: intact ?- insight: good ASSESSMENT/PLAN HIV/AIDS - She has had improvement with the injectable HIV medication with a good recovery of her CD4 count in November an undetectable viral load. Awaiting the results of the blood work done 2 days ago. Today she had the Cabenuva (Cabotegravir/Raltegravir) injections and will be due on the end of July for the next injections. [facility] will arrange for cassia delivery of the medication to the [facility]. She will continue the other medications including the Bactrim Suspension and the Antiseizure medications as RXd by Satya Wills MD, [facility]. MD visit will be scheduled: October 2024 Lab work ordered:? Drawn 2 days ago. Provider of Care:? Brittanie Pina, MSN, SAMPLE PREP TECHNICIAN
== END 2024-06-26 14:20 | disposition home or self-care (01) ==
LOC: CCC 07-03 14:22
PROVIDERS: PCP Nurse Practitioner; Visit Provider Nurse Practitioner Family
DX: B20 Human immunodeficiency virus [HIV] disease (principal); Z79.899 Other long term (current) drug therapy
CPT/HCPCS: 99214

== ENCOUNTER 2024-08-14 15:55 | Outpatient (CLI) | payer MEDICARE, MEDICAID, SELFPAY ==
--- NOTE | 2024-08-14 16:26 | W.CCNOTE ---
Comprehensive Care Clinic Note Note: [facility] ?[address] ?[place], [place]? [address] [facility] Visit for Medical Follow Up Name: Josiane Pacheco? Medical Record [id number]? Date of :? 1955? Primary Care Provider: [facility] Date of Service: 08/14/2024 SUBJECTIVE CC: Home Visit for status check due to Active HIV/AIDS disease. Josiane has been transitioned from oral medication to Injectable due to dysphasia which interfered with her taking oral HIV medications and resulted in a low CD4, high viral load, wasting and anemia fall 2022. 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 She had esophageal dilatations and endoscopies during that time with Dr. Cordova @ at [facility], was able then to swallow her HIV medications consistently and reach an undetectable viral load. She then transitioned to the injectable HIV medication Cabenuva in the summer. She is now on a q 8 week schedule for the injections of the Cabenuva (Cabotegravir/Raltegravir) and is due today. HPI: Josiane has? been feeling fairly well despite ongoing diarrhea and some recurrent dysphasia. She has her oral antiseizure medications delivered to her home from [email or web address] in [facility] and the Cabenuva injections are delivered by cassia to the [facility] the morning of the day of her home visit for administration from the [facility]. She is taking the Bactrim liquid daily for her low T cell count. She had been above 200 for a time and stopped it. She went below 80 but in November of 2023 her CD4 was up to 138 w a % of 6 and an undetectable viral load, the first undetectable in a couple years. The last blood work was done 06/24/2024 with a CD4 of 114, a % of 7 and less than 20 copies per dL = to an undetectable viral load. She had follow up with Dr. Feliciano the day the blood work was drawn and no changes were made to her medications or F/U plans. Josiane has been having nocturnal seizures. Since she was seen 2 months ago, she says she has had [address] Wills, her neurologist @ [facility], on 08/26/2024. It is critical that she be able to swallow her anti-seizure medication. Since we had a conversation with Dr. Wills last fall and he said she may crush her Vimpat tabs. She says she does not like the feeling of the increased dose of the Lamictal and will discuss this with him. She has not made an appointment with the GI clinic for f/u and will contact them when she is down there on 08/26 for an appointment to discuss when to have another esophageal dilatation. ROS Constitutional: Easily fatigued, better appetite but still ?I don?t taste much?, interrupted sleep. Weight is stable at this point. She is walking short distances a couple times a week and feeling encouraged by this. Skin: dry on arms, trunk and legs, very little puretic sensation, The contusion from this past winter?s seizure on her upper left arm is resolved Head: Denies trauma, has post seizure headaches. Eyes: Denies visual disturbance, has reading glasses Ear/Nose/Throat: Denies symptoms Mouth/Teeth: Missing teeth and needs dental attention Neck: No pain or stiffness CV: Denies chest pain or pressure, gets palpitations with exertion Respiratory: Some smokers cough in the morning, + dyspnea w exertion, frequently will have to sit down if she does stair climbing, denies hemoptysis GI: intermittent diarrhea, no rectal bleeding : no frequency or dysuria/ burning with urination Musculoskeletal: She continues to have left shoulder pain after a seizure and falling 2 months ago. No other joint or back pain Endocrine: No polyuria, polydipsia; Has both heat and cold intolerance Lymphatic: Has not noted any enlarged nodes Hematologic: No unusual bleeding, bruising Immunologic: CD4 count has been below 200 numerous times, was below 80 1 1/2 years ago but now is up to 138, + risk for OI - taking prophylactic antibiotic for PJP prevention Psychiatric: + Anxiety, Depression, Denies SI/HI Allergies/Sensitivities: NKDA Current Medications: (reconciliation done today) ? she is not consistently keeping these down other than the liquids. Cabenuva (Cabotegravir/Raltegravir) q 8 weeks but injections Sulfametethozole 200 mg/40 mg/5 ml ? 400/800 mg (1o ml) daily Neurology meds lacosamide (Vimpat) 100 mg q AM, 200mg q PM Clonazepam 1 mg bid Hydroxizine 10 mg/ 5 ml ? 12.5 ml (125 mg) tid prn anxiety meloxicam 7.5 mg bid Medical / Surgical History Update: She had been having appointments at [facility] for esophageal dilatations q 6 months. Sees her neurologist there about every 6 months as well. Psychiatric History Update: Chronic depression ?? she says now she feels up and down daily Social History Update: Wants to move but has been voicing this for a few years ?Employment:? Disabled ?Health Insurance: [employer] [place], Medicare and Medicaid Substance Use: ? Tobacco: Denies smoking and her apartment does not smell of cigarette smoke ? ETOH: Denies now ? Drug Use: Never Immunization Needed? She is UTD at present and will need flu and Covid booster in the? fall ?Health Maintenance: UTD w PCP OBJECTIVE Height: 5?6?Weight: 208 Temp: 97.5 F ?Pulse: 76 Respirations: 14 @ rest ? Blood Pressure: 118/72, Ambulatory SAO2% 97 ?General:? WDWNL, Ambulatory INAD ?Skin:? W/D, clear ?Head:? NCAT ?Eyes: non icteric ?Ears, Nose, Mouth: clear, missing teeth Neck: Supple, Thyroid non palp ?Chest: Full, equal expansion, clear breath sounds ?CV: RRR, No MCRG, extremity pulses 2/4 w symmetry ?Abdomen: NABS, ND, NT, No OGM or masses felt, No Bruits ?: NE ?Neuro: Gait strong and steady, No tics or tremor, Strength 5/5 all extremities, DTRs 2/4 ?Lymphatic: No palpable enlarged nodes ?Ortho: FROM all joints ?Psychiatric: ?- appearance: well groomed ?- eye contact: fair - attitude: cooperative ?- speech: normal for her usual aki ?- affect: appropriate ?- mood: depressed ?- memory: short term intact, technician terminal and repeater intact ?- self-perception: WNL ?- motor activity: normal ?- orientation: intact ?- attention: intact ?- thought process: logical - thought content: normal ?- perceptions: WNL ?- judgement: intact ?- insight: good ASSESSMENT/PLAN HIV/AIDS - She has had improvement with the injectable HIV medication with some recovery of her CD4 count and is remaining with an undetectable viral load. Today she had the Cabenuva (Cabotegravir/Raltegravir) injections and will be due on the end of September for the next injections. [facility] will arrange for cassia delivery of the medication to the [facility]. She will continue the other medications including the Bactrim Suspension for PCP prophylaxis and the antiseizure medications as RXd by Satya Wills MD, [facility]. She remains frail but the walking may help her build up some stamina and she is encouraged to continue this. MD visit will be scheduled: December 23, 2024 and she will be due for injections then as well. Lab work ordered:? In September 2024 these will be drawn at the home visit follow up. Provider of Care:? Brittanie Pina, MSN, TAX AUDIT MANAGER
== END 2024-08-14 15:56 | disposition home or self-care (01) ==
LOC: CCC 15:58
PROVIDERS: PCP Nurse Practitioner; Visit Provider Nurse Practitioner Family
DX: B20 Human immunodeficiency virus [HIV] disease (principal); Z79.899 Other long term (current) drug therapy
CPT/HCPCS: 99214

== ENCOUNTER 2024-10-09 12:49 | Outpatient (REF) | payer MEDICARE, MEDICAID, SELFPAY ==
[2024-10-09 13:10] LABS: Abs Immature Grans 0.06 10^3/uL (0.0-0.06); HCT 37.9 % (36.0-46.0); HGB 13.2 g/dL (11.2-15.7); Immature Grans % 0.5 %; MCH 35.3 pg (27.0-33.0); MCHC 34.8 % (32.0-36.0); MCV 101 fL (80-95); MPV 9.6 fL (8.0-11.0); Platelet Count 284 10^3/uL (130-400); RBC 3.74 10^6/uL (3.93-5.22); RDW 11.9 % (11.7-14.6); RDW-SD 44.8 fL; WBC 12.77 10^3/uL (4.4-10.8)
[2024-10-09 13:24] LABS: ALT 14 U/L (14-59); AST 19 U/L (15-37); Albumin 2.5 g/dL (3.4-5.0); Alkaline Phosphatase 67 U/L (46-116); Anion Gap 13.4 mmol/L (3-11); BUN 17 mg/dL (7-18); Bilirubin, Total 1.3 mg/dL (0.2-1.0); CO2 25.6 mmol/L (21.0-32.0); Calcium 8.9 mg/dL (8.5-10.1); Chloride 100 mmol/L (98-107); Estimated GFR 49.61 (mL/min/1.73m2); Glucose 101 mg/dL (74-106); Sodium 139 mmol/L (136-145); Total Protein 6.6 g/dL (6.4-8.2)
[2024-10-09 13:32] LABS: Potassium 2.9 mmol/L (3.5-5.1)
[2024-10-10 11:25] LABS: CD3 88 % (56-84); CD4 7 % (31-64); CD8 81 % (9-39)
== END 2024-10-09 12:50 | disposition home or self-care (01) ==
LOC: LBN 12:49
PROVIDERS: PCP Nurse Practitioner; Visit Provider Nurse Practitioner Family
DX: B20 Human immunodeficiency virus [HIV] disease (principal); Z79.899 Other long term (current) drug therapy
CPT/HCPCS: 80053; 87536; 85025; 86359; 86360

== ENCOUNTER 2024-10-09 14:33 | Outpatient (CLI) | payer MEDICARE, MEDICAID, SELFPAY ==
--- NOTE | 2024-10-09 14:45 | W.CCNOTE ---
[facility] Clinic Note Note: [facility] Home Visit for Medical Follow Up Name: Josiane Pacheco Medical Record [id number] Date of : 1955 Primary Care Provider: April Hutson MD, [facility] Date of Service: 10/09/2024 SUBJECTIVE CC: Home Visit for status check due to Active HIV/AIDS disease. Josiane has been transitioned from oral medication to Injectable due to dysphasia which interfered with her taking oral HIV medications and resulted in a low CD4, high viral load, wasting and anemia fall 2022. 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 She had esophageal dilatations and endoscopies during that time with Dr. Cordova @ at [facility], was able then to swallow her HIV medications consistently and reach an undetectable viral load. She then transitioned to the injectable HIV medication Cabenuva on May 29, 2023. She is now on a q 8 week schedule for the injections of the Cabenuva (Cabotegravir 600 mg/Raltegravir 900 mg) and is due today. Dates of administration of Cabenuva injectable ART: 05/29/2023 - initial injections, next in 1 month (4 weeks) 06/26/2023 - all subsequent injection q 2 months (about 8 weeks) 08/24/2023 10/25/2023 12/19/2024 02/19/2024 04/22/2024 06/24/2024 08/14/2024 10/09/2024 – done today HPI: Jsoiane has been having diarrhea and recurrent dysphasia w vomiting. She says she has an appointment with [facility] coming up soon but is unsure of the date. She says she is not eating many solids, and some days will have 10 BMs which range from watery to very soft. She has not had bloody diarrhea or dark, blackish stool. She describes that she will get onset of abdominal cramping and will start coughing, vomit and then frequently get the diarrhea. She also says that over the past week or so she has been having dark bloody discharge from her vagina with a different sensation of cramping “like menstrual cramps”. This is new and she has no history of this in the past. She has an intact uterus and is many years post-menopausal. She has her oral antiseizure medications delivered to her home from [facility] [facility] in [facility] and the Cabenuva injections are delivered by cassia to the [facility] from the [facility]. She is taking the Bactrim liquid daily for her low T cell count. She had been above 200 for a time and stopped it. She went below 80 but in November of 2023 her CD4 was up to 138 w a % of 6 and an undetectable viral load, the first undetectable in a couple years. The last blood work was done 06/24/2024 with a CD4 of 114, a % of 7 and an undetectable viral load. She had follow-up with Dr. Feliciano, her ID specialist, the day the blood work was drawn, and no changes were made to her medications or F/U plans. She is due for blood work today and F/U in October w ID. Josiane has nocturnal seizures despite taking her antiepileptics daily. She saw Dr. Wills, her neurologist @ [facility] last week and was told he is retiring at the end of the year and her F/U appointment in 3 months will be her last with him. She will be reassigned to another neurologist, but she is sad about this change. Since we had a conversation with Dr. Wills last fall and he said she may crush her Vimpat tabs. It is critical that she be able to swallow her anti-seizure medication and she is aware of this. ROS Constitutional: Easily fatigued, appetite poor, interrupted sleep. Weight may be down a bit. She is walking short distances a couple times a week and feeling encouraged by this. Skin: c/o dry on arms, trunk and legs Head: Denies trauma, has post seizure headaches. 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 Also C/O knee aching and stiffness. Endocrine: No polyuria, polydipsia; Has both heat and cold intolerance Lymphatic: Has not noted any enlarged nodes Hematologic: No unusual bruising Immunologic: CD4 count has been below 200 numerous times, was below 80 1 1/2 years ago but now is up above 100, + risk for OI - taking prophylactic antibiotic for PJP prevention. Psychiatric: + Anxiety, Depression, Denies SI/HI Allergies/Sensitivities: NKDA Current Medications: (reconciliation done today) – she is not consistently keeping these down other than the liquids and crushed meds. Cabenuva (Cabotegravir/Raltegravir) q 8 weeks but injections Sulfametethozole 200 mg/40 mg/5 ml – 400/800 mg (1o ml) daily Neurology meds lacosamide (Vimpat) 100 mg q AM, 200mg q PM Clonazepam 1 mg bid Hydroxizine 10 mg/ 5 ml – 12.5 ml (125 mg) tid prn anxiety meloxicam 7.5 mg bid Medical / Surgical History Update: She had been having appointments at [facility] for esophageal dilatations q 6 months. Sees her neurologist there about every 3 to 6 months as well. Psychiatric History Update: Chronic depression – nothing new Social History Update: Wants to move but has been voicing this for a few years Employment: Disabled Health Insurance: [employer] [place] Medicare and Medicaid Substance Use: Tobacco: Denies smoking and her apartment does not smell of cigarette smoke ETOH: Denies now Drug Use: Never Immunization Needed? She is UTD at present and will need flu and Covid booster in the fall Health Maintenance: She will start with a new PCP in October OBJECTIVE Weight: unable to weigh today no scale, Temp: 97.9 F Pulse: 106 Respirations: 16 @ rest, Blood Pressure: 104/70, sitting SAO2% 97 General: WDWNL, Ambulatory INAD, appearing chronic ill, pale and gaunt. Skin: W/D, pale and clear of rash or lesions Head: NCAT, face w sunken cheeks Eyes: non icteric Ears, Nose, Mouth: clear, missing teeth Neck: Supple, Thyroid non palp Chest: Full, equal expansion, some crackles at the bases CV: RRR, No MCRG, extremity pulses 2/4 w symmetry Abdomen: NABS, ND, NT, No OGM or masses felt, No Bruits : NE Neuro: Gait steady, No tics or tremor, Strength 5/5 all extremities, DTRs 2/4 Lymphatic: No palpable enlarged nodes Ortho: FROM all joints Psychiatric: - appearance: well groomed - eye contact: fair - attitude: cooperative - speech: normal for her usual aki - affect: appropriate - mood: depressed - memory: short term intact, retirement intact - self-perception: WNL - motor activity: normal - orientation: intact - attention: intact - thought process: logical - thought content: normal - perceptions: WNL - judgement: intact - insight: fair ASSESSMENT/PLAN HIV/AIDS - She has had improvement in her HIV status with the injectable HIV medication with some recovery of her CD4 count and is remaining with an undetectable viral load. Today she had the Cabenuva (Cabotegravir/Raltegravir) injections and will be due about the second week in November time for the next injections. [facility] will arrange for cassia delivery of the medication to the [facility] in [facility] as that is where she will be having her primary care. She will continue the other medications including the Bactrim Suspension for PCP prophylaxis and needs a refill of the RX for this as well as continuing the antiseizure medications as RXd by Satya Wills MD, [facility]. - ID MD visit will be scheduled: November 25, 2024. - Lab work ordered & drawn at the home visit follow up today – CBCD, CMP, HIV1 RNA PCR Quant, CD4 immunodeficiency panel. Post menopausal vaginal bleeding – With her worsening ill appearance today, new bloody vaginal D/C w cramping, the N, V, D and worsening of her esophageal stricture symptoms, no eating, etc, I wanted her to go to the hospital today. She refused stating she would not want to go to [facility] and when it was suggested to go to [facility], she refused. She did agree for me to call her if there was critical blood work results and reconsider going to the hospital. She is of sound mind and autonomous to make her own decisions and I will call her with the results as I get them. Needs Primary Care and refuses to return to [facility] Internal Medicine – She has been accepted at the [facility] to establish care with April Hutson MD, and an introductory appointment has been made for Tuesday, November 19, 2024, at 2:[address] Hutson has agreed to have her every 2-month Cabenuva injections delivered to the [facility] and administered there by the nurses. Josiane will need a RCT ride to and from the [facility] for these injections. Josiane has agreed to all this new care since the [facility] is closing at the end of October, and we made the initial appointment together today. Provider of Care: Brittanie Pina, MSN, FOUNDATION COORDINATOR (sgt) Addendum: [facility] Lab called with a critical lab value of 2.9. Her Hbg was 13.2. No other values are available at this time. Jsoiane was called and on her answering machine told the value, advised again to have the ER at the local hospital evaluate her and that she would need IV replacement of K+, and told of the potential risks in delaying care. I asked her to call me when she got the message. sgt
== END 2024-10-09 14:34 | disposition home or self-care (01) ==
LOC: CCC 14:38
PROVIDERS: PCP Family Medicine; Visit Provider Nurse Practitioner Family
DX: B20 Human immunodeficiency virus [HIV] disease (principal); Z79.899 Other long term (current) drug therapy; E88.A Wasting disease (syndrome) due to underlying condition
CPT/HCPCS: 96372; 99214

== ENCOUNTER 2024-10-09 16:04 | Emergency (ER) | payer MEDICARE, MEDICAID, SELFPAY ==
[2024-10-09] VITALS (28 sets, daily range): BP systolic 103–134; BP diastolic 70–92; PULSE 75–92; RESP 12–28; TEMP 36.9; O2SAT 93–98
--- NOTE | 2024-10-09 16:00 | RT.EKG_ITS ---
APPROVED REPORT Exam: Resting ECG Reason for Exam: weak, lethargic Patient Location: E HR:85 bpm ECG Measurements Heart Rate 85 AXIS PA 132 P 8 QRSd 89 QRS -13 QT 443 T 49 QTc 526 Conclusion Sinus rhythm...normal P axis, V-rate 60- 99 Low voltage, extremity leads...all extremity leads <0.5mV Prolonged QT interval...QTc >500mS
--- NOTE | 2024-10-09 16:15 | W.ED.GENAD ---
Discharge Plan Disposition Patient Disposition: Home Condition: Improving Discharge Details Clinical Impression: Diarrhea, Gastroenteritis and colitis, viral, Acute hypokalemia, Peptic stricture of esophagus Primary Care Provider: April Hutson V ED Provider: Adam Chanel Home Meds and New Rx's Prescriptions: Continued Tivicay 50 mg tablet 50 mg PO BID omeprazole 20 mg capsule,delayed release(DR/EC) 20 mg PO DAILY PRN lacosamide 10 mg/mL solution 100 mg PO BID 30 Days Qty: 600 5RF clonazepam 1 mg tablet,disintegrating 1 mg PO BID Qty: 60 2RF Rx Instructions: ODT only due to severe dysphagia meloxicam 7.5 mg tablet 7.5 mg PO DAILY PRN (Reason: pain) Qty: 90 0RF lamivudine 10 mg/mL solution 150 mg PO BID multivitamin with iron Tablet 1 tab PO DAILY Patient Comments: 01/20/20 - not taking per pt hydroxyzine HCl 10 mg/5 mL solution 25 mg PO TID Qty: 1000 3RF Rx Instructions: 25 mg PO TID plus extra 25mg once daily prn anxiety; cyanocobalamin (vitamin B-12) 1,000 mcg tablet 1,000 mcg PO DAILY Rx Instructions: 03/2021 [facility] [place] [facility] sulfamethoxazole-trimethoprim 200-40 mg/5 mL suspension 10 ml PO DAILY Rx Instructions: 03/2021 [facility] [place] [facility] lacosamide 100 mg tablet 100 mg PO DAILY AM Patient Comments: 04/20/[address] Wills () Rx Instructions: and 2 tabs in pm omeprazole magnesium [Prilosec OTC] 20 mg tablet,delayed release (DR/EC) 20 mg PO DAILY levetiracetam [Keppra] 500 mg tablet 500 mg PO BID Vemlidy 25 mg tablet 25 mg PO DAILY Patient Comments: TK 1 T PO QD Rx Instructions: rx last filled at pharmacy 07/25/19 Discharge Instructions Instructions: Hypokalemia, Esophageal Stricture (DC), Diarrhea, Adult ED Referrals: April Hutson MD [Primary Care Provider, Medicine] - 10/10/24 Discharge Data Discharge Physician: Adam Chanel HPI General Date/Time Provider Initiated Documentation: 10/09/24 16:15. HPI Narrative: Patient presents emergency department sent by her HIV clinic for she is has esophageal stricture has been unable to eat solids but drinks and can eat soft foods but for the last 3 days has been having diarrhea and the nausea her potassium was 2.9. Patient denies any cough shortness of breath or anything she states that she is at her HIV medication which is injected every 2 months without a problem. Related Data Home Medications ?Medication ?Instructions ?Recorded ?Confirmed lamivudine 10 mg/mL oral solution 150 mg PO BID 01/20/20 10/09/24 multivitamin with iron 1 tab PO DAILY 01/20/20 10/09/24 tenofovir alafenamide 25 mg tablet 25 mg PO DAILY 03/12/20 10/09/24 (Vemlidy) dolutegravir 50 mg tablet (Tivicay) 50 mg PO BID 03/23/20 10/09/24 meloxicam 7.5 mg tablet 7.5 mg PO DAILY PRN pain #90 tabs 05/15/20 10/09/24 hydroxyzine HCl 10 mg/5 mL oral 25 mg (12.5 mL) PO TID itching or 05/27/20 10/09/24 solution anxiety #1,000 mL clonazepam 1 mg disintegrating 1 mg PO BID #60 tabs 06/02/20 10/09/24 tablet lacosamide 10 mg/mL oral solution 100 mg (10 mL) PO BID 30 days #600 06/02/20 10/09/24 mL omeprazole 20 mg capsule,delayed 20 mg PO DAILY PRN 06/02/20 10/09/24 release cyanocobalamin (vitamin B-12) 1,000 mcg PO DAILY 04/20/21 10/09/24 1,000 mcg tablet sulfamethoxazole 200 10 ml PO DAILY 04/20/21 10/09/24 mg-trimethoprim 40 mg/5 mL oral suspension lacosamide 100 mg tablet 100 mg PO DAILY AM 04/21/22 10/09/24 omeprazole magnesium 20 mg 20 mg PO DAILY 11/24/22 10/09/24 tablet,delayed release (Prilosec OTC) levetiracetam 500 mg tablet 500 mg PO BID 09/17/24 10/09/24 (Keppra) Previous Rx's ?Medication ?Instructions ?Recorded meloxicam 7.5 mg tablet 7.5 mg PO DAILY PRN pain #90 tabs 05/15/20 hydroxyzine HCl 10 mg/5 mL oral 25 mg (12.5 mL) PO TID itching or 05/27/20 solution anxiety #1,000 mL clonazepam 1 mg disintegrating 1 mg PO BID #60 tabs 06/02/20 tablet lacosamide 10 mg/mL oral solution 100 mg (10 mL) PO BID 30 days #600 06/02/20 mL Allergies Allergy/AdvReac Type Severity Reaction Status Date / Time topiramate Allergy Intermediate rash, Verified 06/22/20 14:39 itching lamotrigine (From Lamictal) AdvReac Intermediate dizzy, Verified 06/22/20 14:39 double vision General FANNY: 3 Review of Systems Narrative: Review of Systems: Constitutional: No fevers, chills, sweats Eye: No recent visual problems ENT: No ear pain, nasal congestion, sore throat Respiratory: No shortness of breath, cough Cardiovascular: No Chest pain, palpitations, syncope Gastrointestinal: No nausea, vomiting, diarrhea Genitourinary: No hematuria Zaid/Lymph: Negative for bruising tendency, swollen lymph glands Endocrine: Negative for excessive thirst, excessive hunger Musculoskeletal: No back pain, neck pain, joint pain, muscle pain, decreased range of motion Integumentary: No rash, pruritus, abrasions Neurologic: Alert & oriented X 4 Psychiatric: No anxiety, depression Exam Narrative Exam Narrative: Exam; vitals signs as reported above normal Constitutional; In no acute distress, afebrile General: cooperative, healthy appearing, comfortable and no acute distress HEENT: Head: normal to inspection, no palpable skull fracture and normocephalic atraumatic Eyes: : appearance normal, both eyes and all related structures EOM intact bilaterally Pupils: PERRL : conjunctiva normal Direct ophthalmoscopy: normal light reflex, normal conjunctiva, normal visual acuity Ears: Normal TM, normal external canal Nose: normal no rhinorreha Neck no JVD, supple non tender Neck: normal visual inspection, full ROM and no lymphadenopathy Chest: normal inspection of the chest Respiratory : normal respiratory effort and able to speak in complete sentences scant wheezing Cardio Rate: regular rate, rhythm: regular rhythm normal heart sounds S1 and S2 no murmurs, gallops, or rubs GI : normal to inspection, normal bowel sounds, soft, non tender, non distended, no organomegaly Back/Spine/ no CVA tenderness Thoracic/Lumbar Spine: no tenderness or deformities Skin no rashes or lesions Neuro: patient alert oriented x 4 and no meningeal signs, Cranial Nerves: CN's II-XI intact bilaterally, Cognition: normal cognition, Speech: speech normal, Gait: normal gait, Depp tendon reflexes normal 2+ muscle strength 5/5 bilaterally Extremities, no edema, full range of motion, normal strength Medical Decision Making MDM: Summary: Patient who presents emergency department stating that she has a dislocated fracture in her right hand. Today she was having excessive diarrhea. Labs were done in the show hypokalemia patient was interested initially to the level of 2.4. She has not had other recent levels of. Denies nausea and she is feeling hydration also 200 mL equivalents of potassium was given immediately. She feels fine and will be discharged home with close follow-up. I spoke with her HIV physician who feels that at this time she is okay and she has been safe to discharge home with close follow-up with her PCP Data Review Analysis All the data on this patient was reviewed by me including laboratory and imaging studies as well as bedside studies performed by me Independent review of Studies Imaging Lab: Hypokalemia Risk Stratification: Patient with gastroenteritis and hypokalemia will be discharged home and will be also follow-up with GI if she has esophageal stricture Differential Diagnosis: 1. Gastroenteritis diarrhea 2. Hypokalemia 3. Esophageal stricture 4. 5. Consultants: Spoke with Tonja in the H&P: Shared disposition: Patient understands disposition and will follow accordingly Impression: Medical Records Medical records reviewed: Yes I reviewed the patient's medical records. Lab Data Lab results reviewed: Yes I reviewed the patient's lab results. ECG Data Attestation: I personally reviewed and interpreted this ECG (s) as follows: Prior ECG tracings: available for review Interpretation: Heart rate 85 normal sinus rhythm no acute ST-T changes PFSH All Active Problems (Updated 10/09/24 @ 19:08 by Adam Chanel MD) Acute hypokalemia (Acute) Gastroenteritis and colitis, viral (Acute) Diarrhea (Acute) Peptic stricture of esophagus (Acute) 11/22/22 dilated at GI Partial epilepsy with impairment of consciousness, intractable (Acute) Housing or economic problem (Acute) AIDS (Acute) Family estrangement (Chronic) cut of from sister and son Aunt Alyssa Lund only family in touch Chronic diarrhea (Chronic) Seizure disorder (Chronic) complex partial seizures Goals of care, counseling/discussion (Acute) wants aggressive care would want chemo and surgery Full code status (Chronic) wants aggressive treatment for all health issues Colonic thickening (Acute) Diverticula of colon (Acute) Diarrhea (Acute) Renal cyst (Acute) Abnormal CT of the abdomen (Chronic) Electrolyte depletion (Acute) Pancytopenia (Acute) Colitis, acute (Acute) Esophagitis determined by biopsy (Chronic) 01/22/[place] [facility] [place] 02/05/20, repeat 6 mos or sooner prn. Dysphagia (Acute) Esophageal stricture (Acute) 02/05/20 [facility] [place] Endoscopy - moderate distal esophageal stenosis by UGI. Balloon dilation to 15mm. Mild cognitive impairment (Acute) Insomnia (Chronic) Medication overuse headache (Chronic) Migraine headache with aura (Chronic) Focal epilepsy with impairment of consciousness, intractable (Chronic) Vitamin D deficiency (Acute) Temporal sclerosis (Acute) Anxiety (Chronic) Gastroesophageal reflux disease with esophagitis (Acute 02/10/12) LA grade D esophagitis Upper GI [place]noscopy 06/23/15 [place] [facility] [place] [place]-benign appearing esophageal stenosis 01/14/20-Upper GI endoscopy-biopsies taken HH (hiatus hernia) (Acute 10/16/15) Dr Ramesh Johnson, [facility] [place]20 [facility] [place] Endo 4 cm by UGI 03/03/23[place] [place] Endo 2 cm Human immunodeficiency virus infection (Chronic 02/26/90) Dr. Antony Myers, DO, [facility] ID CD 4 count improved 07/17 Hyperlipidemia (Acute 02/10/12) Nicotine dependence (Chronic 10/15/13) not interested in quitting Rosacea (Acute 07/17/12) dr lopez Tubular adenoma of colon (Acute 05/08/10) Colon polyposis (Chronic) Anal fissure (Chronic) Dysphagia (Chronic) Hyperlipidemia (Chronic) Depression (Chronic) Medical History Left-sided weakness subjective, not objectively confirmed Unintentional weight loss Palliative care patient Weight loss Pruritus Hx of meningitis Seizures, generalized convulsive Surgical History H/O endoscopy (~11/22/22) 03/03/23-dilation performed. path: mid esophagus bx, (multiple): Esophageal squamos mucosa with reactive changes. 09/28/2352-[id number] of recurrent strictures S/P brain surgery temporal lobectomy for refractory epilepsy Endoscopy (10/16/15) Dr Ramesh Johnson [facility] [place] Upper Endoscopy [facility] [place]. esophagus with crepe paper appearance with distal rings s/p dilation to 15 mm Colonoscopy - MAC (12/09/13) per Dr. Wren , hemorroids banded, 3 polyps biopsied Family History Sister Headache Family estrangement Mother , age 87 from lung cancer Lung cancer Father Parent-child estrangement nec Son Parent-child estrangement nec Aunt Health care proxy on file Social History Smoking/Tobacco Use Status: Current every day Tobacco Type: cigarettes Tobacco: How many years used: 45 Smoking risk assessment performed?: Yes Alcohol Intake: former Year quit: 2019 Drug use: Never Substance use type: does not use Details: smokes 4 packs per week no alcohol for over 3 months Caregiver/Support person: No Household members: none Housing: apartment Number of Children: 1 Education Level: high school Do you need help understanding health information?: Always current occupation: disabled Do you think of yourself as: straight/heterosexual What is your relationship status?: How often do you talk on the phone with friends or family?: never How often do you get together with friends or relatives?: three or more times per week Panel score (0-1 are the most socially isolated patients): 1 What type of physical activity do you participate in: walking and independent ambulation Duration: 15-30 minutes/day Frequency: daily Special kingsley needs: No Agree to transfusion: Yes Seatbelt use: always Helmet use: Yes Drive intox or ride w/intox charter and tour bus driver: No Water heater temp set <120 deg: Yes Working smoke detector in home: Yes Fire extinguisher in home: Yes Carbon monox detector in home: Yes Firearms in home: No In current or past relationships, have you been: made to feel afraid Do you feel safe at home: Yes Do you feel safe in your relationship?: Yes Additional Social history: lives alone on the 3rd floor (top floor) in apt building. - As of spring 2020, able to go up and down steep stairs, walk up steep hill. Doing much better re: strength and stamina. In October, reported numerous housing issues: ceiling in living room fell in, hastily and messily patched. Moisture palpable around top of diaz, where they meet ceiling. Josiane reports both mold and electricity issues. She was very agitated over her living situation. Says neighbors have walked into her home while she was across the street. Used to leave house unlocked. No longer does. Altercation with landlord. Still loves the 6 yo girl who lives next door, but doesn't like interacting with her parents. Doesn't feel safe at home. Interested in bird-watching. Involved with Cory. She is fully vaccinated now against COVID-19--had her booster on 10/28/20. We did call [facility] while I was present. [facility] will help her with housing. Advised Josiane needs to move [facility] for both her physical and mental health.
--- NOTE | 2024-10-09 16:30 | DI.RAD_ITS ---
Exam(s) XR PORTABLE CHEST AP EXAM: XR PORTABLE CHEST AP CLINICAL HISTORY: COUGH TECHNIQUE: 2D digital imaging was performed. COMPARISON: CR CHEST 2 VIEWS PA,LAT from 10/18/2013 FINDINGS: LUNGS: Clear. No pleural abnormality seen. HEART: Normal size. AORTA: Normal diameter. Calcification at arch. BONES: Old left humeral head fracture. Soft tissues: Unremarkable. IMPRESSION: No acute findings. DATA REPOSITORY: RADIATION DOSE DELIVERED:
[2024-10-09 16:48] LABS: Abs Immature Grans 0.07 10^3/uL (0.0-0.06); HCT 34.2 % (36.0-46.0); HGB 12.1 g/dL (11.2-15.7); Immature Grans % 0.5 %; MCH 36.2 pg (27.0-33.0); MCHC 35.4 % (32.0-36.0); MCV 102 fL (80-95); MPV 9.7 fL (8.0-11.0); Platelet Count 278 10^3/uL (130-400); RBC 3.34 10^6/uL (3.93-5.22); RDW 11.9 % (11.7-14.6); RDW-SD 45.1 fL; WBC 13.35 10^3/uL (4.4-10.8)
[2024-10-09] MEDS: Normal Saline 1,000 ML 1000 ML IV (16:50)
[2024-10-09 16:58] LABS: INR 1.1 (0.9-1.1); Prothrombin Time 11.3 sec (9.1-11.1)
[2024-10-09 17:14] LABS: ALT 9 U/L (14-59); AST 17 U/L (15-37); Albumin 2.2 g/dL (3.4-5.0); Alkaline Phosphatase 56 U/L (46-116); Anion Gap 13.9 mmol/L (3-11); BUN 19 mg/dL (7-18); Bilirubin, Total 1.1 mg/dL (0.2-1.0); CO2 23.1 mmol/L (21.0-32.0); Calcium 8.5 mg/dL (8.5-10.1); Chloride 102 mmol/L (98-107); Estimated GFR 49.61 (mL/min/1.73m2); Glucose 111 mg/dL (74-106); Magnesium 1.4 mg/dL (1.8-2.4); Sodium 139 mmol/L (136-145); Total Protein 6.4 g/dL (6.4-8.2); Troponin I 9 ng/L (<or=51)
[2024-10-09 17:15] LABS: Potassium 2.4 mmol/L (3.5-5.1)
[2024-10-09] MEDS: MAGNESIUM SULFATE 1 GM/100 ML BAG IV_INF (17:50)
[2024-10-09] MEDS: POTASSIUM CHLORIDE 10 MEQ/100 ML BAG 100 MEQ IV_INF (17:50)
== END 2024-10-09 19:46 | disposition home or self-care (01) ==
PROVIDERS: Emergency Provider Emergency Medicine Emergency Medical Services; PCP Family Medicine
DX: K52.9 Noninfective gastroenteritis and colitis, unspecified (principal); E87.6 Hypokalemia; K22.2 Esophageal obstruction
CPT/HCPCS: 80053; 93005; 96361; 96365; 96368; 96372; 99214; 99285; 71045; 83735; 84484; 85025; 85610; 93010; 99284; J3475; J3480

== ENCOUNTER 2024-10-16 09:30 | Outpatient (CLI) | payer MEDICARE, MEDICAID, SELFPAY ==
--- NOTE | 2024-10-16 12:43 | CCCE_ITS ---
Comprehensive Care Clinic Note Note: [facility] [address] [place] [address] [facility] Home Visit for Medical Follow Up Name: Josiane Pacheco [facility] Medical Record [id number] Date of : 1955 Primary Care Provider: April Hutson MD Date of Service: 10/16/2024 SUBJECTIVE CC: Home Visit for status check due to Chronic Diarrhea & Dysphasia resulting in hypomagnesia, hypokalemia and a low albumin of 2.4 Found on blood work done on 10/09/2024 prompting an ambulance transfer from her apartment to the [facility] ER for hydration, mineral repletion and further evaluation. No stool samples were collected there and today we will get a sample of the diarrhea stool for various testing, in particular C-Diff due to her chronic prophylactic Bactrim for a T cell count of under 200 and a detectable viral load which became undetectable about a year ago now that she is getting injectable ART, Cabenuva q 2 months. It is now protocol that if the viral load is undetectable, the PJP prophylactic antibiotics may be D/Cd. Josiane was advised to stop the Bactrim last week at the home visit since she has been undetectable for over a year now. When I called her this AM to let her know I was coming with specimen cups for stool, she recounted that on Monday she got into the shower at 2 pm, fell and laid on the floor for 4 hours unable to get up. She scooted herself over to her bed and got in at 6 pm. She “didn’t want to bother anyone or have to leave her apartment so did not call. She denies hitting her head and did not loos consciousness. “I’m just so weak I can’t get up fast and if I fall down I can’t get back up easily,” she says. HPI: Josiane has been transitioned from oral medication to Injectable due to dysphasia which interfered with her taking oral HIV medications and resulted in a low CD4, high viral load, wasting and anemia fall 2022. 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 She had esophageal dilatations and endoscopies during that time with Dr. Cordova @ at [facility], was able then to swallow her HIV medications consistently and reach an undetectable viral load. She then transitioned to the injectable HIV medication Cabenuva on May 29, 2023. She is now on a q 8 week schedule for the injections of the Cabenuva (Cabotegravir 600 mg/Raltegravir 900 mg) and received these last week on 10/09/2024. Dates of administration of Cabenuva injectable ART: 05/29/2023 06/26/2023 08/24/2023 10/25/2023 12/19/2024 02/19/2024 04/22/2024 06/24/2024 08/14/2024 10/09/2024 Josiane has been having diarrhea and recurrent dysphasia w vomiting. She says she has an appointment with [facility] coming up soon but is unsure of the date. She says she is not eating many solids, and some days will have 10 BMs which range from watery to very soft. She has not had bloody diarrhea or dark, blackish stool. She describes that she will get onset of abdominal cramping and will start coughing, vomit and then frequently get the diarrhea. She also says that over the past week or so she has been having dark bloody discharge from her vagina with a different sensation of cramping “like menstrual cramps”. This is new and she has no history of this in the past. She has an intact uterus and is many years post-menopausal. She has her oral antiseizure medications delivered to her home from [employer] in [facility] due for delivery today and the Cabenuva injections are delivered by cassia to the [facility] from the [facility]. The last blood work to check her CD4 cells and HIV viral load (VL) was done 10/09/2024 with results of CD4 161 and an undetectable VL, the prior resuls were on 06/24/2024 with a CD4 of 114, a % of 7 and an undetectable viral load. She had follow-up with Dr. Feliciano, her ID specialist, the day the blood work was drawn, and no changes were made to her medications or F/U plans. She is due for blood work today and F/U in October w ID. Josiane has occasional nocturnal seizures despite taking her antiepileptics daily. She saw Dr. Wills, her neurologist @ [facility], last week and was told he is retiring at the end of the year and her F/U appointment in 3 months will be her last with him. She will be reassigned to another neurologist, but she is sad about this change. Since we had a conversation with Dr. Wills last fall and he said she may crush her Vimpat tabs. It is critical that she be able to swallow her anti-seizure medication and she is aware of this. ROS Constitutional: Easily fatigued, appetite poor & C/O unable to chew solid food enough due to missing teeth, interrupted sleep. Weight is down. She is walking short distances a couple times a week and feeling encouraged by this. Skin: c/o dry on arms, trunk and legs Head: Denies trauma, has post seizure headaches. Eyes: Denies visual disturbance, has reading glasses Ear/Nose/Throat: Denies symptoms Mouth/Teeth: C/O hating the missing teeth and needing dental attention Neck: No pain or stiffness CV: Denies chest pain or pressure, gets palpitations with exertion Respiratory: Some smokers cough in the morning, + dyspnea w exertion, frequently will have to sit down if she does stair climbing, denies hemoptysis GI: intermittent N/V/D, no rectal bleeding : no frequency or dysuria/ burning with urination TRAINING ADMINISTRATOR: New C/O dark, bloody vaginal D/C and pelvic cramping Musculoskeletal: She continues to have left shoulder pain after a seizure and falling 2 months ago. Also C/O elbows & knees aching after scooting on the floor on Monday, knee aching and stiffness. Endocrine: No polyuria, polydipsia; Has both heat and cold intolerance Lymphatic: Has no noted any enlarged nodes Hematologic: No unusual bruising Immunologic: CD4 count has been below 200 numerous times, was below 80 1 1/2 years ago but now is up above 161 w a viral load <20 for over a year – stopped taking prophylactic antibiotic last week for PJP prevention. Psychiatric: + Anxiety, Depression, Denies SI/HI Allergies/Sensitivities: NKDA Current HIV Medications: Cabenuva (Cabotegravir/Raltegravir) q 8 weeks but injection. Neurology meds - she is not consistently keeping these down other than the liquids and crushed meds. lacosamide (Vimpat) 100 mg q AM, 200mg q PM Clonazepam 1 mg bid Hydroxizine 10 mg/ 5 ml – 12.5 ml (125 mg) tid prn anxiety meloxicam 7.5 mg bid Medical / Surgical History Update: She had been having appointments at [facility] for esophageal dilatations q 6 months. Does not have F/U scheduled. Sees her neurologist there about every 3 to 6 months as well. Psychiatric History Update: Chronic depression – nothing new Social History Update: Wants to move but has been voicing this for a few years - Employment: Disabled - Health Insurance: [employer] [place] Medicare and Medicaid - Substance Use: Tobacco: Denies smoking and her apartment does not smell of cigarette smoke ETOH: Denies now Drug Use: Never Immunization Needed? She is UTD at present and will need flu and Covid booster in the fall Health Maintenance: She will start with a new PCP in October OBJECTIVE Weight: 180# - (was 208# a few months ago), Temp: 97.9 F, Pulse: 106 Respirations: 18 @ rest, Blood Pressure: 104/70, sitting SAO2% 97 General: WDWNL, Ambulatory INAD, appearing chronic ill, pale and gaunt. Skin: W/D, pale, dry and clear of rash or lesions, no contusions noted Head: NCAT, face w sunken cheeks Eyes: non icteric Ears, Nose, Mouth: clear, missing teeth Neck: Supple, Thyroid non palp Chest: Full, equal expansion, some crackles at the bases CV: RRR, No MCRG, extremity pulses 2/4 w symmetry Abdomen: NABS, ND, NT, No OGM or masses felt, No Bruits : NE Neuro: Gait steady for short distances, No tics or tremor, Strength 5/5 all extremities, DTRs 2/4 Lymphatic: No palpable enlarged nodes Ortho: FROM all joints Psychiatric: - appearance: in her nightgown for easy access to the toilet - eye contact: fair - attitude: cooperative - speech: normal for her usual aki - affect: appropriate - mood: depressed - memory: short term intact, snf intact - self-perception: WNL - motor activity: normal - orientation: intact - attention: intact - thought process: logical - thought content: normal - perceptions: WNL - judgement: intact - insight: fair ASSESSMENT/PLAN *Chronic Diarrhea w acute worsening starting about a month ago and gradual worsening of her dysphagia due to esophageal stricture needing another dilatation. She says she will make an appointment to go down to [facility] for the p rocedure when the diarrhea is back under better control. In the meantime she has given a stool sample for analysis at [facility] and send out for C-Diff PCR, Fecal bacterial patogens PCR, Microsporidia PCR, Giargia Antigen, Crypsporidium Antigen, and reflex to O&P. Since she has lost weight and shows signs of wasting again with an Albumin of 2.5, a PA to [place] Medicaid is done for Ensure Plus, 2 cans daily. I will ask [facility] to deliver this to her door as they do with her seizure meds and other personal items. *HIV/AIDS - She has had improvement in her HIV status with the injectable HIV medication with some recovery of her CD4 count and is remaining with an undetectable viral load now over a year. Last week she had the Cabenuva (Cabotegravir/Raltegravir) injections and will be due about the second week in November time for the next injections. [facility] will arrange for cassia delivery of the medication to the [facility] in [place], [place], as that is where she will be having her primary care. She will continue the antiseizure medications as RXd by Satya Wills MD, [facility]. - ID MD visit will be scheduled: November 25, 2024. - Lab work ordered & drawn at the home visit follow up today – CBCD, CMP, HIV1 RNA PCR Quant, CD4 immunodeficiency panel. *Post menopausal vaginal bleeding – With her worsening ill appearance today, new bloody vaginal D/C w cramping will need a TRAINING ADMINISTRATOR follow up evaluation. I suggested getting her an appointment w a TRAINING ADMINISTRATOR MD at the [facility] but she is reluctant to leave the house due to the diarrhea. She will consider this when the diarrhea is more under control. *Needs Primary Care and refuses to return to [facility] Medicine – She has been accepted at the [facility] to establish care with April Hutson MD, and an introductory appointment has been made for Tuesday, November 19, 2024, at 2:[address] Hutson has agreed to have her every 2-month Cabenuva injections delivered [facility] and administered there by the nurses. Josiane will need a RCT ride to and from the [facility] for these injections. Josiane has agreed to all this new care since the [facility] is closing at the end of October, and we made the initial appointment together last week. Provider of Care: Brittanie Pina, MSN, SAMPLE MAKER (sgt)
== END 2024-10-16 09:31 | disposition home or self-care (01) ==
LOC: CCC 11:52
PROVIDERS: PCP Family Medicine; Visit Provider Nurse Practitioner Family
DX: B20 Human immunodeficiency virus [HIV] disease (principal); Z79.899 Other long term (current) drug therapy; R19.7 Diarrhea, unspecified; E83.42 Hypomagnesemia; E87.6 Hypokalemia
CPT/HCPCS: 99214

== ENCOUNTER 2024-10-16 19:48 | Outpatient (REF) | payer MEDICARE, MEDICAID, SELFPAY ==
[2024-10-16 12:39] LABS: EPI 027-NAP1-B1 PRESUMPTIVE NEGATIVE
[2024-10-17 13:30] LABS: Campylobacter PCR Negative (Negative); Shiga Toxin PCR Negative (Negative); Shigella/Enteroinvasive Ecoli Negative (Negative)
== END 2024-10-16 19:49 | disposition home or self-care (01) ==
LOC: LBN 19:48
PROVIDERS: PCP Family Medicine; Visit Provider Nurse Practitioner Family
DX: B20 Human immunodeficiency virus [HIV] disease (principal); R19.7 Diarrhea, unspecified; E83.42 Hypomagnesemia; E87.6 Hypokalemia
CPT/HCPCS: 87015; 87269; 87272; 87505

== ENCOUNTER 2024-10-27 10:40 | Observation (INO) | payer MEDICARE, MEDICAID, SELFPAY ==
[2024-10-27] VITALS (40 sets, daily range): BP systolic 94–113; BP diastolic 54–84; PULSE 59–104; RESP 11–27; TEMP 35.9–36.8; O2SAT 94–100
--- NOTE | 2024-10-27 10:30 | RT.EKG_ITS ---
APPROVED REPORT Exam: Resting ECG Reason for Exam: rapid heartrate, weakness Patient Location: E HR:87 bpm ECG Measurements Heart Rate 87 AXIS MN 142 P 12 QRSd 76 QRS -17 QT 367 T 52 QTc 442 Conclusion Sinus rhythm...normal P axis, V-rate 60- 99 Low voltage, extremity leads...all extremity leads <0.5mV No Occlusion ME
--- NOTE | 2024-10-27 10:45 | ED.GENADUL_ITS ---
Discharge Plan Disposition Patient Disposition: Admit to [facility] Discharge Details Clinical Impression: Aortic root dilatation, Weakness, Tachycardia, Bronchitis, Macrocytic anemia Primary Care Provider: April Hutson V ED Provider: Andrew Cervantes [place] Meds and New Rx's Prescriptions: No Action clonazepam 1 mg tablet,disintegrating 1 mg PO BID Qty: 60 2RF Rx Instructions: ODT only due to severe dysphagia cyanocobalamin (vitamin B-12) 1,000 mcg tablet 1,000 mcg PO DAILY Rx Instructions: 03/2021 [facility] [place] levetiracetam [Keppra] 500 mg tablet 500 mg PO BID potassium chloride 20 mEq/15 mL liquid 20 meq PO DAILY Patient Comments: TAKE 15ML BY MOUTH EVERY DAY FOR LOW POTASSIUM magnesium oxide 250 mg magnesium tablet 250 mg PO DAILY Patient Comments: TAKE ONE TABLET BY MOUTH EVERY DAY FOR LOW MAGNESIUM lacosamide 200 mg tablet 200 mg PO BID Patient Comments: TAKE ONE TABLET BY MOUTH TWICE A DAY Cabenuva 600 mg/3 mL- 900 mg/3 mL suspension,extended release 6 ml IM .every 2 months meloxicam 7.5 mg tablet 7.5 mg PO BID PRN (Reason: pain) HPI General Date/Time Provider Initiated Documentation: 10/27/24 10:45 . HPI Narrative: MDM This is an uncomfortable appearing afebrile and not tachycardic 69-year-old HIV- positive female with weakness and A-fib RVR now back in sinus rhythm with shortness of breath for which patient will undergo emergency department evaluation. Given shortness of breath age and sex ACS is on the differential though patient's ECG shows narrow complex sinus rhythm at a rate of 87. She does have low voltage tracing the possibility of pericardial effusion. She is not tachycardic hypotensive nor hypoxic to suggest tamponade. She did have a ECG performed earlier this month which showed similar low voltage. She has no acute injury pattern. I considered sepsis however the patient denies fevers and is not tachycardic nor tachypneic so I did not order broad-spectrum antibiotics nor blood cultures nor a lactate. She is not PERC negative but given her shortness of breath will obtain D-dimer to assess for PE. No cough to suggest p neumonia. No lower extremity edema to suggest acute heart failure. No pain out of proportion to suggest necrotizing soft tissue infection. Will assess CBC to evaluate for anemia. Patient did report some black stools however is not anticoagulated. She reports adherence with her HIV medications. She has no focal neurological deficits to suggest CVA so do not feel that she would be a TNK candidate. No tonic-clonic activity to suggest seizure. Soft nontender abdomen so not suspicious for appendicitis or diverticulitis. Though she reports vomiting and diarrhea she has soft abdomen with no fever so not suspicious for C. difficile so I did not send C. difficile screen. Given reported undetectable viral level I was not suspicious for opportunistic infections from AIDS. Will monitor on telemetry and reassess. 11:45 AM Positive D-dimer based on years criteria for which patient will undergo CT angiogram. Mild hypocalcemia. Very mild hyperglycemia. No CHASE. No anion gap. Normal bicarbonate. Reassuring normal lipase. CBC with no leukocytosis. New anemia compared to prior hemoglobin at 9.8 macrocytic. She is not anticoagulated though she does take meloxicam as needed for pain. No thrombocytopenia. Reassuring initial troponin. Chart review indicates patient had a colonoscopy performed at [facility] [place] when she had six 3 to 5 mm polyps in the descending colon. She was recommended to have repeat colonoscopy in 3 years. Her polyps were found to be benign tubular adenomas. 2:40 PM Patient became short of breath working with physical therapy. She also became markedly tachycardic. She reportedly has 3 flights of steps to get home where she lives alone and has no family in the area. I advised her that her CT angiogram was concerning for an enlarged ascending aorta for which she would benefit from echocardiogram. There is no echo in our system. Will reach out to hospitalist team with request for hospitalization given unsafe discharge in setting of bronchitis weakness. 3:20 PM Was in touch with Dr. Jaime who graciously agreed to accept the patient for hospitalization. Chronic conditions affecting the care of the patient: AIDS History obtained from an outside historian: Paramedics External record review: N/A Diagnostic interpretations performed by me: Per my independent interpretation chest x-ray shows: No acute cardiopulmonary process Per my independent interpretation EKG shows: See above ]Medications: Will continue prehospital IV fluids total 1 L Social determinants of health affecting disposition: N/A Management discussed with: Dr. Jaime Treatment/interventions considered: N/A Response to therapies provided: N/A HPI This is a patient with a history of atrial fibrillation presenting with dizziness, weakness, and a fall. The patient experienced a fall due to weakness, necessitating a lift assist. This led to the involvement of BLS and paramedics, who diagnosed her with atrial fibrillation with rapid ventricular response with heart rates peaking at 140. The paramedics administered 20 mg of diltiazem, which successfully converted her heart rhythm to normal sinus rhythm, reducing her heart rate to the 90s. However, her heart rhythm continues to fluctuate between normal sinus rhythm and A-fib. Her blood pressure is currently 95/70, which is consistent with her historically low blood pressure readings. The patient reports feeling dizzy and weak, symptoms she has been experiencing for several months. She was watching the news this morning when she felt weak and went to check her mail. She fell while going back out. She reports shortness of breath, vomiting, and severe diarrhea. She has no known heart conditions and is not on any blood thinners. She has been compliant with her medication regimen at home. Exam General: Elderly-appearing in no acute distress speaking in complete sentences. Head: Normocephalic, atraumatic. Eye: Extraocular eye movements intact. No conjunctival injection. No scleral icterus. Ear, nose, mouth, throat: Grossly normal inspection. Normal voice, handling secretions normally. Neck: Trachea midline. Cardiovascular: Well-perfused distal extremities. Regular rate and rhythm Respiratory: Nonlabored respiration. Clear lungs bilaterally Gastrointestinal: Nondistended abdomen. Soft nontender. Musculoskeletal: No significant lower extremity pitting edema. Moving all 4 extremities spontaneously. Skin: Normal for age and race, grossly normal temperature and turgor. No acute rash. Neurologic: Alert and appropriate, no apparent acute deficits. Psychiatric: Mood and manner are appropriate. Grooming and personal hygiene are appropriate. Related Data Home Medications ?Medication ?Instructions ?Recorded ?Confirmed clonazepam 1 mg disintegrating 1 mg PO BID #60 tabs 10/27/24 tablet cyanocobalamin (vitamin B-12) 1,000 mcg PO DAILY 04/2010/27/24 1,000 mcg tablet levetiracetam 500 mg tablet 500 mg PO BID 09/17/24 (Keppra) cabotegravir ER 600 mg/3 6 ml IM .every 2 months 09/2910/27/24 mL-rilpivirine ER 900 mg/3mL IM suspension,ER (Cabenuva) lacosamide 200 mg tablet 200 mg PO BID 10/27/2410/27 magnesium oxide 250 mg PO DAILY 10/27/24 meloxicam 7.5 mg tablet 7.5 mg PO BID PRN pain 10/2710/27/24 potassium chloride 20 mEq/15 mL 20 meq PO DAILY 10/27/24 oral liquid Previous Rx's ?Medication ?Instructions ?Recorded clonazepam 1 mg disintegrating 1 mg PO BID #60 tabs tablet Allergies Allergy/AdvReac Type Severity Reaction Status Date / Time topiramate Allergy Intermediate rash, Verified 06/22/20 14:39 itching lamotrigine (From Lamictal) AdvReac Intermediate dizzy, Verified 06/22/20 14:39 double vision General FANNY: 3 PFSH All Active Problems (Updated 10/27/24 @ 15:43 by [place] Jaime MD) D-dimer, elevated (Acute) Folate deficiency (Acute) Macrocytic anemia (Acute) Bronchitis (Acute) Tachycardia (Acute) Weakness (Acute) Aortic root dilatation (Acute) Acute hypokalemia (Acute) Gastroenteritis and colitis, viral (Acute) Diarrhea (Acute) Peptic stricture of esophagus (Acute) 11/22/22 dilated at GI Partial epilepsy with impairment of consciousness, intractable (Acute) Housing or economic problem (Acute) AIDS (Acute) Family estrangement (Chronic) cut of from sister and son Aunt Alyssa Lund only family in touch Chronic diarrhea (Chronic) Seizure disorder (Chronic) complex partial seizures Goals of care, counseling/discussion (Acute) wants aggressive care would want chemo and surgery Full code status (Chronic) wants aggressive treatment for all health issues Colonic thickening (Acute) Diverticula of colon (Acute) Diarrhea (Acute) Renal cyst (Acute) Abnormal CT of the abdomen (Chronic) Electrolyte depletion (Acute) Pancytopenia (Acute) Colitis, acute (Acute) Esophagitis determined by biopsy (Chronic) 01/22/20 at [facility], repeated endoscopy 02/05/20, repeat 6 mos or sooner prn. Dysphagia (Acute) Esophageal stricture (Acute) 02/05/20 [facility] Endoscopy - moderate distal esophageal stenosis by UGI. Balloon dilation to 15mm. Mild cognitive impairment (Acute) Insomnia (Chronic) Medication overuse headache (Chronic) Migraine headache with aura (Chronic) Focal epilepsy with impairment of consciousness, intractable (Chronic) Vitamin D deficiency (Acute) Temporal sclerosis (Acute) Anxiety (Chronic) Gastroesophageal reflux disease with esophagitis (Acute 02/10/12) LA grade D esophagitis Upper GI ednoscopy 06/23/15 at [facility] [place]/15[place] [place] GI endoscopy-benign appearing esophageal stenosis 01/14/20-Upper GI endoscopy-biopsies taken HH (hiatus hernia) (Acute 10/16/15) Dr Ramesh Johnson, [facility] [place]/05/20 [facility] Endo 4 cm by UGI 03/03/23-[facility] [place] GI Endo 2 cm Human immunodeficiency virus infection (Chronic 02/26/90) Dr. Antony Myers, , [facility] ID CD 4 count improved 07/17 Hyperlipidemia (Acute 02/10/12) Nicotine dependence (Chronic 10/15/13) not interested in quitting Rosacea (Acute 07/17/12) dr lopez Tubular adenoma of colon (Acute 05/08/10) Colon polyposis (Chronic) Anal fissure (Chronic) Dysphagia (Chronic) Hyperlipidemia (Chronic) Depression (Chronic) Medical History Left-sided weakness subjective, not objectively confirmed Unintentional weight loss Palliative care patient Weight loss Pruritus Hx of meningitis Seizures, generalized convulsive Surgical History H/O endoscopy (~11/22/22) 03/03/23-dilation performed. path: mid esophagus bx, (multiple): Esophageal squamos mucosa with reactive changes. 09/28/2360-[id number] of recurrent strictures S/P brain surgery temporal lobectomy for refractory epilepsy Endoscopy (10/16/15) Dr Ramesh Johnson [facility] [place]/20 Upper Endoscopy [facility]. esophagus with crepe paper appearance with distal rings s/p dilation to 15 mm Colonoscopy - MAC (12/09/13) per Dr. Wren , hemorroids banded, 3 polyps biopsied Family History Sister Headache Family estrangement Mother , age 87 from lung cancer Lung cancer Father Parent-child estrangement nec Son Parent-child estrangement nec Aunt Health care proxy on file Social History Smoking/Tobacco Use Status: Current every day Tobacco Type: cigarettes Tobacco: How many years used: 45 Smoking risk assessment performed?: Yes Alcohol Intake: former Year quit: 2019 Drug use: Never Substance use type: does not use Details: smokes 4 packs per week no alcohol for over 3 months Caregiver/Support person: No Household members: none Housing: apartment Number of Children: 1 Education Level: high school Do you need help understanding health information?: Always current occupation: disabled Do you think of yourself as: straight/heterosexual What is your relationship status?: How often do you talk on the phone with friends or family?: never How often do you get together with friends or relatives?: three or more times per week Panel score (0-1 are the most socially isolated patients): 1 What type of physical activity do you participate in: walking and independent ambulation Duration: 15-30 minutes/day Frequency: daily Special kingsley needs: No Agree to transfusion: Yes Seatbelt use: always Helmet use: Yes Drive intox or ride w/intox line haul driver: No Water heater temp set <120 deg: Yes Working smoke detector in home: Yes Fire extinguisher in home: Yes Carbon monox detector in home: Yes Firearms in home: No In current or past relationships, have you been: made to feel afraid Do you feel safe at home: Yes Do you feel safe in your relationship?: Yes Additional Social history: lives alone on the 3rd floor (top floor) [facility]. - As of spring 2020, able to go up and down steep stairs, walk up steep hill. Doing much better re: strength and stamina. In October, reported numerous housing issues: ceiling in living room fell in, hastily and messily patched. Moisture palpable around top of diaz, where they meet ceiling. Josiane reports both mold and electricity issues. She was very agitated over her living situation. Says neighbors have walked into her home while she was across the street. Used to leave house unlocked. No longer does. Altercation with landlord. Still loves the 6 yo girl who lives next door, but doesn't like interacting with her parents. Doesn't feel safe at home. Interested in bird-watching. Involved with [employer]. She is fully vaccinated now against COVID-19--had her booster on 10/28/20. We did call [facility] while I was present. [facility]lem will help her with housing. Advised Josiane needs to move [facility] for both her physical and mental health.
--- NOTE | 2024-10-27 10:53 | DI.RAD_ITS ---
Exam(s) XR PORTABLE CHEST AP EXAM: XR PORTABLE CHEST AP CLINICAL HISTORY: Shortness of breath TECHNIQUE: 2D digital imaging was performed of the chest. One image was obtained. An AP view was obtained. COMPARISON: CR CHEST 2 VIEWS PA,LAT from 09/08/2008 CR CHEST 2 VIEWS PA,LAT from 10/18/2013 CR XR PORTABLE CHEST AP from 10/09/2024 FINDINGS: MEDIASTINUM: Normal. HEART: Normal. PULMONARY VASCULATURE: Normal. LUNGS: There are no focal consolidating infiltrates. PLEURAL SPACE: No pleural effusion or pneumothorax. BONE:Within normal limits for the patient's age. OTHER FINDINGS:Normal. IMPRESSION: No acute pulmonary findings. DATA REPOSITORY: RADIATION DOSE DELIVERED:
[2024-10-27 11:05] LABS: Abs Immature Grans 0.05 10^3/uL (0.0-0.06); HCT 30.3 % (36.0-46.0); HGB 9.8 g/dL (11.2-15.7); Immature Grans % 0.5 %; MCH 34.1 pg (27.0-33.0); MCHC 32.3 % (32.0-36.0); MCV 106 fL (80-95); MPV 9.0 fL (8.0-11.0); Platelet Count 306 10^3/uL (130-400); RBC 2.87 10^6/uL (3.93-5.22); RDW 12.8 % (11.7-14.6); RDW-SD 49.0 fL; WBC 9.60 10^3/uL (4.4-10.8)
[2024-10-27 11:20] LABS: Anion Gap 9.6 mmol/L (3-11); BUN 14 mg/dL (7-18); CO2 26.4 mmol/L (21.0-32.0); Calcium 8.4 mg/dL (8.5-10.1); Chloride 102 mmol/L (98-107); Estimated GFR 61.75 (mL/min/1.73m2); Glucose 143 mg/dL (74-106); Lipase 41 U/L (<78); Potassium 4.4 mmol/L (3.5-5.1); Sodium 138 mmol/L (136-145); Troponin I 9 ng/L (<or=51)
--- NOTE | 2024-10-27 11:26 | TELEP.MEDREC ---
Date of service: 10/27/24 Time of Service: 11:26 [facility] Allergies Allergies: topiramate Allergy (Intermediate, Verified 06/22/20 14:39) rash, itching lamotrigine (From Lamictal) Adverse Reaction (Intermediate, Verified 06/22/20 14:39) dizzy, double vision Interview Person Interviewed: Patient Quality Quality of Interview/Accuracy of Medication List: Excellent Sources Sources used to compile medication list: [employer] Medication List, Retail Pharmacy and Patient List Changes made to Home Medication List: ADDITIONS: Cabenuva Lacosamide 200 mg Mg++ K+ DELETIONS: Hydroxyzine MVI Omeprazole x 2 Bactrim Tnofovir Lamivudine Lacosamide 100 mg x 2 Tiv[place]ay CHANGES: Meloxicam to BID prn Recommended Changes Attestation: The home medication list is now updated to the best of my knowledge and is ready to be reconciled by the provider. [facility]ist at for any questions.
[2024-10-27 11:27] LABS: D-Dimer 1312 ng/mlFEU (<500)
--- NOTE | 2024-10-27 11:45 | DI.CT_ITS ---
Exam(s) CT CHEST PE CTA EXAM: CT CHEST PE CTA CLINICAL HISTORY: Shortness of breath positive dimer. TECHNIQUE: Imaging Protocol: Axial CT angiography was performed with multi- slice acquisition and multi-planar and/or 3D reconstructions. Lung Computer Aided Detection (CAD) was utilized. CONTRAST MATERIAL: Intravenous: Omnipaque 350 contrast volume:100 mL COMPARISON: CT CT CHEST/ABD/PEL W from 03/11/2020 CR XR PORTABLE CHEST AP from 10/27/2024 FINDINGS: Tracheobronchial tree: Patent where visualized. No bronchiectasis. There is mild bronchial wall thickening. There is no mucous plugging. Pulmonary parenchyma: No consolidation or dominant measurable mass. No architectural distortion. Pulmonary Arteries: No evidence of filling defect to suggest pulmonary emboli. Mediastinum and Venus: No dominant adenopathy or fluid collection. The esophagus is unremarkable. Visualized thyroid gland: Unremarkable. Pleura: No effusion or pneumothorax. Heart: The heart is not dilated. Mild three-vessel coronary artery calcification is present. No pericardial effusion. Aorta: The ascending thoracic aorta measures 4.4 x 4.1 cm. Atherosclerotic calcification is present. Upper abdomen: No acute process is seen in the upper abdomen. Soft tissues: Unremarkable. Bones: Within normal limits for the patient's age.No acute abnormality is present. IMPRESSION: 1. There is no evidence of a pulmonary embolism. 2. The ascending thoracic aorta measures 4.4 x 4.1 cm. 3. There are no acute pulmonary infiltrates. 4. There is mild bilateral bronchial wall thickening. This can be seen with bronchitis. Please correlate clinically. RADIATION DOSE DELIVERED: 108.39mGy.cm Total DLP DATA REPOSITORY: All CT scans at this facility are submitted to the National Radiology Data Registry (NRDR) Dose Index Registry (DIR) with the [employer] (ACR). RADIATION OPTIMIZATION: All CT scans at this facility use at least one of these dose optimization techniques: automated exposure control; mA and/or kV adjustment per patient size (includes targeted exams where dose is matched to clinical indication); or iterative reconstruction.
[2024-10-27 12:01] LABS: COVID-19 PCR Negative (Negative); RSV PCR Negative (Negative)
[2024-10-27] MEDS: Normal Saline - Diluent 50 ML VIAL IJ (12:18)
[2024-10-27] MEDS: Omnipaque 350 MG/ML 100 ML BTL IJ (12:19)
[2024-10-27] MEDS: Normal Saline Flush 10 ML SYR IVP (12:21)
[2024-10-27 12:48] LABS: Troponin I 9 ng/L (<or=51)
--- NOTE | 2024-10-27 14:13 | IN_ITS ---
PT Notes Visit Reasons: [facility] Physical Therapy Inpatient Initial Evaluation Date: 10/27/2024 Referring Doctor: Andrew Cervantes MD PT Orders: PT CONSULT: Eval/Treat Precautions: Fall. Standard. Activity as tolerated. Patient Profile/Admitting Diagnosis: Josiane is a 69-year-old female with past medical history significant for seizure disorder, AIDS, and mild cognitive impairement who presented to the ED today with complaints of worsening confusion, weakness, gait instability resulting to a fall, shortness of breath, vomiting, and diarrhea. She is admitted to med surg under observation status for continued monitoring of symptoms with referral for PT to assess mobility level and fall risk. PMHX: All Active Problems (Updated 10/27/24 @ 15:43 by South Jaime MD) D-dimer, elevated (Acute) Folate deficiency (Acute) Macrocytic anemia (Acute) Bronchitis (Acute) Tachycardia (Acute) Weakness (Acute) Aortic root dilatation (Acute) Acute hypokalemia (Acute) Gastroenteritis and colitis, viral (Acute) Diarrhea (Acute) Peptic stricture of esophagus (Acute) 11/22/22 dilated at GI Partial epilepsy with impairment of consciousness, intractable (Acute) Housing or economic problem (Acute) AIDS (Acute) Family estrangement (Chronic) cut of from sister and son Aunt Alyssa Lund only family in touch Chronic diarrhea (Chronic) Seizure disorder (Chronic) complex partial seizures Goals of care, counseling/discussion (Acute) wants aggressive care would want chemo and surgery Full code status (Chronic) wants aggressive treatment for all health issues Colonic thickening (Acute) Diverticula of colon (Acute) Diarrhea (Acute) Renal cyst (Acute) Abnormal CT of the abdomen (Chronic) Electrolyte depletion (Acute) Pancytopenia (Acute) Colitis, acute (Acute) Esophagitis determined by biopsy (Chronic) 01/22/20 at [facility] [place], repeated endoscopy 02/05/20, repeat 6 mos or sooner prn. Dysphagia (Acute) Esophageal stricture (Acute) [place] [facility] [place] moderate distal esophageal stenosis by UGI. Balloon dilation to 15mm. Mild cognitive impairment (Acute) Insomnia (Chronic) Medication overuse headache (Chronic) Migraine headache with aura (Chronic) Focal epilepsy with impairment of consciousness, intractable (Chronic) Vitamin D deficiency (Acute) Temporal sclerosis (Acute) Anxiety (Chronic) Gastroesophageal reflux disease with esophagitis (Acute 02/10/12) LA grade D esophagitis Upper GI ednoscopy 06/23/15 at [facility] 07/31/15-[facility] upper GI endoscopy-benign appearing esophageal stenosis 01/14/20-Upper GI endoscopy-biopsies taken HH (hiatus hernia) (Acute 10/16/15) Dr Ramesh Johnson, [facility] [place] [facility] [place]GI 03/03/23-[facility] upper GI Endo 2 cm Human immunodeficiency virus infection (Chronic 02/26/90) Dr. Antony Myers, DO, [facility] ID CD 4 count improved 07/17 Hyperlipidemia (Acute 02/10/12) Nicotine dependence (Chronic 10/15/13) not interested in quitting Rosacea (Acute 07/17/12) dr lopez Tubular adenoma of colon (Acute 05/08/10) Colon polyposis (Chronic) Anal fissure (Chronic) Dysphagia (Chronic) Hyperlipidemia (Chronic) Depression (Chronic) Medical History Left-sided weakness subjective, not objectively confirmed Unintentional weight loss Palliative care patient Weight loss Pruritus Hx of meningitis Seizures, generalized convulsive Surgical History H/O endoscopy (~11/22/22) 03/03/23-dilation performed. path: mid esophagus bx, (multiple): Esophageal squamos mucosa with reactive changes. 09/28/2330-[id number] of recurrent strictures S/P brain surgery temporal lobectomy for refractory epilepsy Endoscopy (10/16/15) Dr Ramesh Johnson [facility] 04/21/20 [place] [facility] [place] esophagus with crepe paper appearance with distal rings s/p dilation to 15 mm Colonoscopy - MAC (12/09/13) per Dr. Wren , hemorroids banded, 3 polyps biopsied Social History/Home Situation: Josiane stated that she lives alone on the third floor of an apartment building with 30 steps to enter with a rail on one side. Josiane has not been going out of the house and has had her downstairs neighbor help out with all her outdoor errands. Equipment Owned/DME: [employer] Subjective: Agreeable e to PT consult. Unable to fully express answers and connect her thoughts due to confusion. Complains of weakness and fatigue. Denies headache, chest pain, and dizziness throughout session. Does not feel safe moving on her own and getting up her three flights of steps to her apartment. Worried about being alone. Objective: General Observation: Supine in bed. Unkempt, hair dishevelled. Kept on holding head with both hands when she forgets what she needed to say. Antithromboembolic pumps on. Telemetry monitoring in place. Mental Status: Alert and oriented to person and place. Thoughts fragmented and disconnected, unable to respond to questions due to confusion. Pain: 10 out of 10 pain in the left knee with weight bearing 6?7/10 pain in the abdominal and anal area ROM: Right Upper Extremity: Grossly WFL Left Upper Extremity: Grossly WFL Right Lower Extremity: Grossly WFL Left Lower Extremity: Grossly WFL Strength: Right Upper Extremity: Grossly 3/5 Left Upper Extremity: Grossly 3/5 Right Lower Extremity: Grossly 3/5 Left Lower Extremity: Grossly 3/5 Sensation: Intact as to pain and pressure on bilateral lower extremities Bed Mobility/Transfers: Minimal cueing provided for use of B hands as needed for support, movement sequence, AD management, and posture to reduce fall risk and minimize pain report Supine to sit SBA with HOB at 30 degrees Sit to supine contact-guard assist Sit to stand contact-guard assist Stand to sit contact-guard assist Bed to chair contact-guard assist Gait: Guided patient through level surface ambulation of up to 45 feet using a standard walker with full weight bearing on bilateral lower extremities with minimal assist. MInimal path deviation as well as one episode of near LOB during a turn needed minimal assist of PT for stabilization. Fatigued after w alking, refused any further activities and requested to lie back down in bed. Balance: Static Sitting: Normal Dynamic Sitting: Normal Static Standing: Fair Dynamic Standing: Fair Special Tests: Mobility Limitations Standardized Measure [facility] AM-PAC 6 clicks Basic Mobility Inpatient Short Form: Raw Score: 18 CMS Score: 47% deficit Informed Consent/Education: Patient was instructed in purpose of PT consult and plan of care. Assessment: Josiane demonstrated functional mobility decline and decreased activity tolerance due to admitting diagnoses complicated by worsening confusion that decrease her ability to thrive safely at home and increase significantly her risk for repeated falls and injury. She will benefit from supervised setting, supervised housing vs SNF for assiatnce with ADL performance and for safety. Patient presents with clinical signs and symptoms consistent with current/admitting diagnoses that have resulted to mobility limitations, gait instability, generalized weakness, and impairment of motor control as demonstrated by the following impairment level findings: 1. Decreased strength to B UE/LE major muscle groups 2. Impaired sitting/standing balance 3. Impaired activity tolerance 4. Easy fatigability Impairments are contributing to the following functional limitations: 1. Increased dependence with transfers 2. Inability to safely ambulate without assistive device and physical assistance 3. Increase completion time for mobility ADL performance 4. Increased fall risk 5. Inability to negotiate steps alone safely Patient is assessed as a [id number] moderate complexity based on the following: History: 64 [id number] with impairment level findings, functional limitations, and past medical history as indicated above Examination: Demonstrable impairment in strength, balance, and mobility level with underlying impairments and functional limitations as documented above Presentation: Evolving Decision Makin moderate complexity Goals: Goals X1 week 1. Supine-Sit independent 2. Sit-Supine independent 3. Sit-Stand independent with FWW 4. Stand-Sit independent with FWW 5. Bed-Chair independent with FWW 6. Chair-Bed independent with FWW 7. Independent gait on level surface with use of front wheeled walker for at least 300 feet without report of pain nor dyspnea 8. Independent stair negotiation while holding onto unilateral rail plus SPC for at least 30 steps without report of pain nor dyspnea 9. Good static and dynamic standing balance/tolerance Plan of Care/Treatment Plan: 1-2x/day, 7 days/week x 1 week. Plan of care has been reviewed with the [employer] providing the service under Physical Therapy direction. Initiate Physical Therapy intervention for strengthening, bed mobility, transfers, gait, stairs, balance training, use of assistive device. DISCHARGE RECOMMENDATIONS: Patient will benefit from detention facility placement vs supervised home setting for continued skilled physical therapy services in order to progress mobility level, strength, and balance. Will benefit from the use of a front wheeled walker. TREATMENT CODE/TIME: 90988 x 20 minutes, for 1 unit (14:13-14:33). Thank you for the opportunity to participate in the care of this patient. Stacy Dalal PT, DPT, CLT [facility] [place], [place]
[2024-10-27 15:24] LABS: Lab Add On Test DONE
--- NOTE | 2024-10-27 15:33 | W.PM.HP.N ---
Date of service: 10/27/24 Time of Service: 15:33 Assessment and Plan Assessment and plan (1) Weakness: Status: Acute Assessment and plan: Exact etiology is unknown although does appear to have a psychiatric component. I will check a mag level, Keppra level, B12 level, folate level, iron level, lead level, CK. Will also order a TSH. Continue with physical therapy. (2) Nicotine dependence: Status: Chronic Assessment and plan: Continue with NicoDerm as needed. (3) Aortic root dilatation: Status: Acute Assessment and plan: Patient will need outpatient follow-up with her PCP and vascular surgery. (4) Tachycardia: Status: Acute Assessment and plan: There is mention of A-fib but this is not improving. Considering her multiple falls would be hesitant to start her on anticoagulation unless it is proven to have A-fib. I will put her on telemetry and check a TSH. An echocardiogram is also pending. (5) Depression: Status: Chronic Assessment and plan: Continue with medical management (6) Vitamin D deficiency: Status: Acute Assessment and plan: Multiple labs are pending. Patient does have an elevated MCV which makes vitamin deficiency certainly possible. (7) Esophageal stricture: Status: Acute Assessment and plan: Outpatient follow-up (8) Chronic diarrhea: Status: Chronic Assessment and plan: Outpatient follow-up (9) Human immunodeficiency virus infection: Status: Chronic Assessment and plan: Continue with medical management and follow-up with ID. (10) Seizure disorder: Status: Chronic Assessment and plan: Patient does have significant history of seizure disorder including brain surgery. I will check a Keppra level. (11) S/P brain surgery: (12) Folate deficiency: Status: Acute Assessment and plan: In reviewing home labs her folate levels were as low as 2.6 with 8.6 being normal. Will recheck this level. This certainly could add to her feelings of weakness (13) D-dimer, elevated: Status: Acute Assessment and plan: CT scan was negative for PE. I will order bilateral lower extremity ultrasounds to rule out DVTs. Patient is on Lovenox for DVT prophylaxis History of Present Illness History of Present Illness Chief Complaint: weakness Narrative: This is a 69-year-old female with a known history of HIV for which she takes her medication as prescribed. Patient presents with a 1 month history of worsening fatigue weakness and multiple falls. Patient went to [place] also letters today and her home is on the third floor states that she fell all the way down the stairs and EMS was activated and brought her to the ED for further evaluation and treatment. Patient states she has had multiple falls over the last month. Patient states that her appetite has decreased. There was not anything particularly different today except for the fall. Patient states that her muscles hurt all over. She was seen by physical therapy and they did not think she was safe to be discharged home. While in the field, there is report of A-fib but I did not see the strip nor did the ER physician. Patient denies history of A-fib. In reviewing her clinical data she is noted to have an elevated MCV at 106 as well as mild anemia with a hemoglobin of 9.8 hematocrit of 30. Approximate month ago her hemoglobin was 11. D-dimer was 1312. Her viral panel was negative. CT of her chest was done which showed a ascending aortic aneurysm 4.4 x 4.1 cm. Chest x-ray was negative. In reviewing past history she has a history of an esophageal stricture as well as significant folate deficiencies. Patient does not have a specific diet. Patient does want to be a full code. CT did not show pulmonary emboli. Review of Systems All systems reviewed & are unremarkable except as noted in HPI and below PFSH All Active Problems (Updated 10/27/24 @ 15:43 by South Jaime MD) D-dimer, elevated (Acute) Folate deficiency (Acute) Macrocytic anemia (Acute) Bronchitis (Acute) Tachycardia (Acute) Weakness (Acute) Aortic root dilatation (Acute) Acute hypokalemia (Acute) Gastroenteritis and colitis, viral (Acute) Diarrhea (Acute) Peptic stricture of esophagus (Acute) 11/22/22 dilated at GI Partial epilepsy with impairment of consciousness, intractable (Acute) Housing or economic problem (Acute) AIDS (Acute) Family estrangement (Chronic) cut of from sister and son Aunt Alyssa Lund only family in touch Chronic diarrhea (Chronic) Seizure disorder (Chronic) complex partial seizures Goals of care, counseling/discussion (Acute) wants aggressive care would want chemo and surgery Full code status (Chronic) wants aggressive treatment for all health issues Colonic thickening (Acute) Diverticula of colon (Acute) Diarrhea (Acute) Renal cyst (Acute) Abnormal CT of the abdomen (Chronic) Electrolyte depletion (Acute) Pancytopenia (Acute) Colitis, acute (Acute) Esophagitis determined by biopsy (Chronic) 01/22/20 at [facility] [place], repeated endoscopy 02/05/20, repeat 6 mos or sooner prn. Dysphagia (Acute) Esophageal stricture (Acute) 02/05/20 [facility] [place] - moderate distal esophageal stenosis by UGI. Balloon dilation to 15mm. Mild cognitive impairment (Acute) Insomnia (Chronic) Medication overuse headache (Chronic) Migraine headache with aura (Chronic) Focal epilepsy with impairment of consciousness, intractable (Chronic) Vitamin D deficiency (Acute) Temporal sclerosis (Acute) Anxiety (Chronic) Gastroesophageal reflux disease with esophagitis (Acute 02/10/12) LA grade D esophagitis Upper GI ednoscopy 06/23/15 at [facility] 07/31/15-[facility] [place] upper GI endoscopy-benign appearing esophageal stenosis 01/14/20-Upper GI endoscopy-biopsies taken HH (hiatus hernia) (Acute 10/16/15) Dr Ramesh Johnson, [facility] [place] 02/05/20 [facility] [place] 4 cm by UGI 03/03/23-[facility] upper GI Endo 2 cm Human immunodeficiency virus infection (Chronic 02/26/90) Dr. Antony Myers, , [facility] ID CD 4 count improved 07/17 Hyperlipidemia (Acute 02/10/12) Nicotine dependence (Chronic 10/15/13) not interested in quitting Rosacea (Acute 07/17/12) dr lopez Tubular adenoma of colon (Acute 05/08/10) Colon polyposis (Chronic) Anal fissure (Chronic) Dysphagia (Chronic) Hyperlipidemia (Chronic) Depression (Chronic) Medical History Left-sided weakness subjective, not objectively confirmed Unintentional weight loss Palliative care patient Weight loss Pruritus Hx of meningitis Seizures, generalized convulsive Surgical History H/O endoscopy (~11/22/22) 03/03/23-dilation performed. path: mid esophagus bx, (multiple): Esophageal squamos mucosa with reactive changes. 09/28/2321-[id number] of recurrent strictures S/P brain surgery temporal lobectomy for refractory epilepsy Endoscopy (10/16/15) Dr Ramesh Johnson [facility] 04/21/20 [place] [facility] [place]. esophagus with crepe paper appearance with distal rings s/p dilation to 15 mm Colonoscopy - MAC (12/09/13) per Dr. Wren , hemorroids banded, 3 polyps biopsied Family History Sister Headache Family estrangement Mother , age 87 from lung cancer Lung cancer Father Parent-child estrangement nec Son Parent-child estrangement nec Aunt Health care proxy on file Social History Smoking/Tobacco Use Status: Current every day Tobacco Type: cigarettes Tobacco: How many years used: 45 Smoking risk assessment performed?: Yes Alcohol Intake: former Year quit: 2019 Drug use: Never Substance use type: does not use Details: smokes 4 packs per week no alcohol for over 3 months Caregiver/Support person: No Household members: none Housing: apartment Number of Children: 1 Education Level: high school Do you need help understanding health information?: Always current occupation: disabled Do you think of yourself as: straight/heterosexual What is your relationship status?: How often do you talk on the phone with friends or family?: never How often do you get together with friends or relatives?: three or more times per week Panel score (0-1 are the most socially isolated patients): 1 What type of physical activity do you participate in: walking and independent ambulation Duration: 15-30 minutes/day Frequency: daily Special kingsley needs: No Agree to transfusion: Yes Seatbelt use: always Helmet use: Yes Drive intox or ride w/intox flag car driver: No Water heater temp set <120 deg: Yes Working smoke detector in home: Yes Fire extinguisher in home: Yes Carbon monox detector in home: Yes Firearms in home: No In current or past relationships, have you been: made to feel afraid Do you feel safe at home: Yes Do you feel safe in your relationship?: Yes Additional Social history: lives alone on the 3rd floor (top floor) in apt building. - As of spring 2020, able to go up and down steep stairs, walk up steep hill. Doing much better re: strength and stamina. In October, reported numerous housing issues: ceiling in living room fell in, hastily and messily patched. Moisture palpable around top of diaz, where they meet ceiling. Josiane reports both mold and electricity issues. She was very agitated over her living situation. Says neighbors have walked into her home while she was across the street. Used to leave house unlocked. No longer does. Altercation with landlord. Still loves the 6 yo girl who lives next door, but doesn't like interacting with her parents. Doesn't feel safe at home. Interested in bird-watching. Involved with Cory. She is fully vaccinated now against COVID-19--had her booster on 10/28/20. We did call [facility] while I was present. [facility] will help her with housing. Advised Josiane needs to move [place] for both her physical and mental health. Meds Allergies and Home Medications Allergies Allergy/AdvReac Type Severity Reaction Status Date / Time topiramate Allergy Intermediate rash, Verified 06/22/20 14:39 itching lamotrigine (From Lamictal) AdvReac Intermediate dizzy, Verified 06/22/20 14:39 double vision Home Medications ?Medication ?Instructions ?Recorded ?Confirmed ?Type clonazepam 1 mg disintegrating 1 mg PO BID #60 tabs 06/02/20 10/27/24 Rx tablet cyanocobalamin (vitamin B-12) 1,000 mcg PO DAILY 04/20/21 10/27/24 History 1,000 mcg tablet levetiracetam 500 mg tablet 500 mg PO BID 09/17/24 10/27/24 History (Keppra) cabotegravir ER 600 mg/3 6 ml IM .every 2 months 10/27/24 10/27/24 History mL-rilpivirine ER 900 mg/3mL IM suspension,ER (Cabenuva) lacosamide 200 mg tablet 200 mg PO BID 10/27/24 10/27/24 History magnesium oxide 250 mg PO DAILY 10/27/24 10/27/24 History meloxicam 7.5 mg tablet 7.5 mg PO BID PRN pain 10/27/24 10/27/24 History potassium chloride 20 mEq/15 mL 20 meq PO DAILY 10/27/24 10/27/24 History oral liquid Exam Narrative Exam Narrative: HEENT-normocephalic atraumatic mucous membranes moist does have mild exophthalmos Neck-no lymphadenopathy no JVD or thyromegaly Cardiovascular-regular rate and rhythm no murmurs gallops Lungs-clear to auscultation bilaterally with good air exchange no accessory muscle use Abdomen-soft nontender nondistended bowel sounds active Neurologic-cranial nerves II through XII intact as tested reflexes normal extremity was tested Psych-patient does have depressed mood. She is alert and oriented x 3 Results Labs 10/27/24 10:55 10/27/24 10:55 Labs: Laboratory Results - last 24 hr 10/27/24 10/27/24 10/27/24 10:55 11:15 12:26 WBC 9.60 RBC 2.87 L Hgb 9.8 L Hct 30.3 L MCV 106 H MCH 34.1 H MCHC 32.3 RDW 12.8 Plt Count 306 MPV 9.0 Immature Gran % 0.5 Neutrophils % 74.6 Lymphocytes % 16.8 Monocytes % 7.0 Eosinophils % 0.6 Basophils % 0.5 Nucleated RBC % 0.0 Absolute Neutrophils 7.16 H Absolute Lymphocytes 1.61 Absolute Monocytes 0.67 Absolute Eosinophils 0.06 Absolute Basophils 0.05 D-Dimer 1312 H Sodium 138 Potassium 4.4 Chloride 102 Carbon Dioxide 26.4 Anion Gap 9.6 BUN 14 Creatinine 1.0 Est GFR (CKD-EPI 2020) 61.75 Glucose 143 H Calcium 8.4 L Troponin I 9 9 Lipase 41 COVID-19 Source Nasopharynx SARS-CoV-2 (PCR) Negative Influenza Type A (PCR) Negative Influenza Type B (PCR) Negative RSV (PCR) Negative Add-On Test Request 10/27/24 15:12 WBC RBC Hgb Hct MCV MCH MCHC RDW Plt Count MPV Immature Gran % Neutrophils % Lymphocytes % Monocytes % Eosinophils % Basophils % Nucleated RBC % Absolute Neutrophils Absolute Lymphocytes Absolute Monocytes Absolute Eosinophils Absolute Basophils D-Dimer Sodium Potassium Chloride Carbon Dioxide Anion Gap BUN Creatinine Est GFR (CKD-EPI 2020) Glucose Calcium Troponin I Lipase COVID-19 Source SARS-CoV-2 (PCR) Influenza Type A (PCR) Influenza Type B (PCR) RSV (PCR) Add-On Test Request DONE Last Vital Signs Temp 36.3 C L 10/27/24 10:40 Pulse 78 10/27/24 12:50 Resp 15 10/27/24 12:50 BP 111/78 10/27/24 12:01 Pulse Ox 100 10/27/24 12:50 Time Spent Time spent with Patient: 40-54 minutes Time was spent: preparing to see the patient(eg.review tests), obtaining and/or reviewing separately otained hiistory, ordering medications,tests, procedures, referring, communicating with other health healthcare facility administrator, indepentently interpreting results, counseling the patient and care coordination
[2024-10-27] MEDS: Acetaminophen 500 MG TAB 1000 MG PO (15:37)
[2024-10-27] MEDS: Enoxaparin 40 MG/0.4 ML SYR SC (15:37)
[2024-10-27 15:53] LABS: TSH (W/Ref FT4) 4.17 uIU/mL (0.36-3.74)
[2024-10-27] MEDS: Lactated Ringers 1,000 ML 100 ML IV (17:41)
[2024-10-27] MEDS: Multivitamin TAB 1 TAB PO (20:55)
[2024-10-27] MEDS: Lacosamide 100 MG TAB 200 MG PO (20:55)
[2024-10-27] MEDS: levETIRAcetam 500 MG TAB PO (20:56)
[2024-10-28] MEDS: Lactated Ringers 1,000 ML 100 ML IV ×2 (03:12→13:57)
[2024-10-28 07:21] LABS: Abs Immature Grans 0.02 10^3/uL (0.0-0.06); HCT 25.1 % (36.0-46.0); HGB 8.3 g/dL (11.2-15.7); Immature Grans % 0.4 %; MCH 34.6 pg (27.0-33.0); MCHC 33.1 % (32.0-36.0); MCV 105 fL (80-95); MPV 8.8 fL (8.0-11.0); Platelet Count 274 10^3/uL (130-400); RBC 2.40 10^6/uL (3.93-5.22); RDW 13.0 % (11.7-14.6); RDW-SD 49.4 fL; WBC 5.16 10^3/uL (4.4-10.8)
--- NOTE | 2024-10-28 07:34 | W.PC.ACHO ---
Registration Status: ADM CARTER Primary Language: Preferred Language: Bengali ED Information & Data Chief Complaint Palpitatns 10/27/24 10:49 Chief Complaint Palpitatns 10/27/24 10:40 Triage Note pt called for lift assist 10/27/24 10:40 and was weak and found to have afib with RVR converted from rate 140s to intermittent sinus in the 80 's Medical / Surgical History (Last Reviewed 10/09/24 @ 19:04 by Adam Chanel MD) Left-sided weakness Unintentional weight loss Palliative care patient Weight loss Pruritus Hx of meningitis Seizures, generalized convulsive (Last Reviewed 10/09/24 @ 19:04 by Adam hCanel MD) H/O endoscopy (~11/22/22) S/P brain surgery Endoscopy (10/16/15) Colonoscopy - MAC (12/09/13) Most Recent Vital Signs Temperature 36.4 C L 10/27/24 20:00 Temperature Source Temporal Artery Scan 10/27/24 20:00 Pulse 70 10/27/24 20:00 Pulse 104 H 10/27/24 16:30 Respiratory Rate 18 10/27/24 20:00 Respiratory Effort Normal 10/27/24 17:10 Respiratory Depth Normal 10/27/24 17:10 Respiratory Pattern Normal 10/27/24 17:10 Blood Pressure 100/67 10/27/24 20:00 Blood Pressure Mean 78 10/27/24 20:00 Pulse Oximetry 98 10/27/24 20:00 Oxygen Delivery Method Room Air 10/27/24 20:00 Oxygen Flow Rate 0 10/27/24 20:00 Pain Level 8 10/27/24 17:10 Comment PT asleep refused vitals 10/28/24 03:31 Allergies topiramate Allergy (Intermediate, Verified 06/22/20 14:39) rash, itching lamotrigine (From Lamictal) Adverse Reaction (Intermediate, Verified 06/22/20 14:39) dizzy, double vision Active Medications Generic Name Dose Route Start Last Admin Trade Name Freq PRN Reason Stop Dose Admin Enoxaparin Sodium 40 mg 10/27/24 16:00 10/27/24 15:37 Enoxaparin 40 Mg/0.4 Ml Syr SC 40 mg Q24H PRESTON Administration Ringer's Solution 1,000 mls @ 100 mls/hr 10/27/24 15:30 10/28/24 03:12 IV 100 mls/hr INFUSION PRESTON Administration Iohexol 100 ml 10/27/24 12:15 10/27/24 12:19 Omnipaque 350 Mg/Ml 100 Ml Btl IJ 11/26/24 23:59 100 ml DIRECTED PRESTON Administration Lacosamide 200 mg 10/27/24 20:00 10/27/24 20:55 Lacosamide 100 Mg Tab PO 200 mg BID PRESTON Administration Levetiracetam 500 mg 10/27/24 20:00 10/27/24 20:56 Levetiracetam 500 Mg Tab PO 500 mg BID PRESTON Administration Multivitamins 1 tab 10/27/24 20:00 10/27/24 20:55 Multivitamin Tab PO 1 tab BID PRESTON Administration Sodium Chloride 0 ml 10/27/24 12:14 10/27/24 12:21 Normal Saline Flush 10 Ml Syr IVP 10 ml PRN PRN Administration Sodium Chloride 50 ml 10/27/24 12:30 10/27/24 12:18 Normal Saline - Diluent 50 Ml Vial IJ 50 ml DIRECTED PRESTON Administration IV IV Catheter Type [Left Saline Lock Antecubital] IV Catheter Gauge [Left 20 Antecubital] Diagnostics 10/28/24 10/27/24 10/27/24 Range/Units 06:50 15:12 12:26 WBC 5.16 (4.4-10.8) 10^3/uL RBC 2.40 L (3.93-5.22) 10^6/uL Hgb 8.3 L (11.2-15.7) g/dL Hct 25.1 L (36.0-46.0) % MCV 105 H (80-95) fL MCH 34.6 H (27.0-33.0) pg MCHC 33.1 (32.0-36.0) % RDW 13.0 (11.7-14.6) % Plt Count 274 (130-400) 10^3/uL MPV 8.8 (8.0-11.0) fL Immature Gran % 0.4 % Neutrophils % 70.2 % Lymphocytes % 20.7 % Monocytes % 6.0 % Eosinophils % 2.1 % Basophils % 0.6 % Nucleated RBC % 0.0 (0.0-0.3) % Absolute Neutrophils 3.62 (1.2-6.7) 10^3/uL Absolute Lymphocytes 1.07 L (1.2-3.4) 10^3/uL Absolute Monocytes 0.31 (0.1-0.8) 10^3/uL Absolute Eosinophils 0.11 (0.0-0.7) 10^3/uL Absolute Basophils 0.03 (0.0-0.2) 10^3/uL D-Dimer (<500) ng/mlFEU Sodium Pending (136-145) mmol/L Potassium Pending (3.5-5.1) mmol/L Chloride Pending (98-107) mmol/L Carbon Dioxide Pending (21.0-32.0) mmol/L Anion Gap Pending (3-11) mmol/L BUN Pending (7-18) mg/dL Creatinine Pending (0.55-1.02) mg/dL Est GFR (CKD-EPI 2020) Pending (mL/min/1.73m2) Glucose Pending (74-106) mg/dL Calcium Pending (8.5-10.1) mg/dL Magnesium Pending Iron Pending TIBC Pending Transferrin % Sat Pending Total Bilirubin Pending AST Pending ALT Pending Alkaline Phosphatase Pending Creatine Kinase Pending Troponin I 9 (<or=51) ng/L Total Protein Pending Albumin Pending Lipase (<78) U/L Vitamin B12 Pending Folate Pending TSH 4.17 H (0.36-3.74) uIU/mL Free T4 0.94 (0.76-1.46) ng/dL Levetiracetam Pending Venous Lead Pending COVID-19 Source SARS-CoV-2 (PCR) (Negative) Influenza Type A (PCR) (Negative) Influenza Type B (PCR) (Negative) RSV (PCR) (Negative) Add-On Test Request DONE 10/27/24 10/27/24 Range/Units 11:15 10:55 WBC 9.60 (4.4-10.8) 10^3/uL RBC 2.87 L (3.93-5.22) 10^6/uL Hgb 9.8 L (11.2-15.7) g/dL Hct 30.3 L (36.0-46.0) % MCV 106 H (80-95) fL MCH 34.1 H (27.0-33.0) pg MCHC 32.3 (32.0-36.0) % RDW 12.8 (11.7-14.6) % Plt Count 306 (130-400) 10^3/uL MPV 9.0 (8.0-11.0) fL Immature Gran % 0.5 % Neutrophils % 74.6 % Lymphocytes % 16.8 % Monocytes % 7.0 % Eosinophils % 0.6 % Basophils % 0.5 % Nucleated RBC % 0.0 (0.0-0.3) % Absolute Neutrophils 7.16 H (1.2-6.7) 10^3/uL Absolute Lymphocytes 1.61 (1.2-3.4) 10^3/uL Absolute Monocytes 0.67 (0.1-0.8) 10^3/uL Absolute Eosinophils 0.06 (0.0-0.7) 10^3/uL Absolute Basophils 0.05 (0.0-0.2) 10^3/uL D-Dimer 1312 H (<500) ng/mlFEU Sodium 138 (136-145) mmol/L Potassium 4.4 (3.5-5.1) mmol/L Chloride 102 (98-107) mmol/L Carbon Dioxide 26.4 (21.0-32.0) mmol/L Anion Gap 9.6 (3-11) mmol/L BUN 14 (7-18) mg/dL Creatinine 1.0 (0.55-1.02) mg/dL Est GFR (CKD-EPI 2020) 61.75 (mL/min/1.73m2) Glucose 143 H (74-106) mg/dL Calcium 8.4 L (8.5-10.1) mg/dL Magnesium Iron TIBC Transferrin % Sat Total Bilirubin AST ALT Alkaline Phosphatase Creatine Kinase Troponin I 9 (<or=51) ng/L Total Protein Albumin Lipase 41 (<78) U/L Vitamin B12 Folate TSH (0.36-3.74) uIU/mL Free T4 (0.76-1.46) ng/dL Levetiracetam Venous Lead COVID-19 Source Nasopharynx SARS-CoV-2 (PCR) Negative (Negative) Influenza Type A (PCR) Negative (Negative) Influenza Type B (PCR) Negative (Negative) RSV (PCR) Negative (Negative) Add-On Test Request Intake and Output - 24 Hour Total 10/27/24 10:35 thru 10/28/24 06:00 Intake Total 2855.001 Balance 2855.001 Weight 76.402 kg Intake: IV 2855.001 Other: Urine Color Yellow Urine Appearance Clear Urine Odor Normal Falls Risk Assessment History of Falls Previous History 10/27/24 17:10 Contributing Factors Confusion 10/27/24 17:10 Ambulatory Aids Independent 10/27/24 17:10 Tubes/Lines None 10/27/24 17:10 Gait Evaluation No gait disturbance 10/27/24 17:10 Cognition No cognitive impairment 10/27/24 10:57 Fall Total Score 18 10/27/24 17:10 Level of Risk Standard/Low Risk 10/27/24 17:10 Problems (Last Reviewed 10/09/24 @ 19:04 by Adam Chanel MD) D-dimer, elevated (Acute) Folate deficiency (Acute) Macrocytic anemia (Acute) Bronchitis (Acute) Tachycardia (Acute) Weakness (Acute) Aortic root dilatation (Acute) Chronic diarrhea (Chronic) Seizure disorder (Chronic) Esophageal stricture (Acute) Vitamin D deficiency (Acute) Human immunodeficiency virus infection (Chronic 02/26/90) Nicotine dependence (Chronic 10/15/13) Depression (Chronic) v v v v v v v v v Sending and/or Receiving Nurses: Please use comment section below to note any information pertinent to the patient hand-off not included above. Information / Comments: Report received from: RNJosiane, received report from Alana in the Emergency Room at 1627. Patient was brought to room 209 and was assessed and stabilized. RN will continue to monitor.
[2024-10-28 07:48] LABS: Iron 51 ug/dL (50-170); Total Iron Binding Capacity 126 ug/dL (250-450); Transferrin Sat 40 % (15-50)
[2024-10-28 07:54] VITALS: BP 102/67; PULSE 82; RESP 26; TEMP 36.1; O2SAT 98
[2024-10-28 08:05] LABS: ALT 11 U/L (14-59); AST 17 U/L (15-37); Albumin 1.7 g/dL (3.4-5.0); Alkaline Phosphatase 50 U/L (46-116); Anion Gap 3.4 mmol/L (3-11); BUN 11 mg/dL (7-18); Bilirubin, Total 0.5 mg/dL (0.2-1.0); CO2 31.6 mmol/L (21.0-32.0); Calcium 8.4 mg/dL (8.5-10.1); Chloride 105 mmol/L (98-107); Estimated GFR 70.07 (mL/min/1.73m2); Glucose 95 mg/dL (74-106); Magnesium 1.8 mg/dL (1.8-2.4); Potassium 3.5 mmol/L (3.5-5.1); Sodium 140 mmol/L (136-145); Total Protein 5.3 g/dL (6.4-8.2); Vitamin B12 709 pg/mL (193-986)
[2024-10-28 08:06] LABS: Folate > 20.0 ng/mL (8.6-20.0)
[2024-10-28 08:30] LABS: Creatine Kinase 11 U/L (26-192)
[2024-10-28] MEDS: Magnesium Oxide 400 MG TAB PO (10:13)
[2024-10-28] MEDS: Lacosamide 100 MG TAB 200 MG PO ×2 (10:13→21:12)
[2024-10-28] MEDS: Potassium Chloride Liquid 20 MEQ PKT PO (10:14)
[2024-10-28] MEDS: levETIRAcetam 500 MG TAB PO ×2 (10:14→21:12)
[2024-10-28] MEDS: Multivitamin TAB 1 TAB PO ×2 (10:14→21:11)
[2024-10-28] MEDS: Cyanocobalamin 500 MCG TAB 1000 MCG PO (10:14)
--- NOTE | 2024-10-28 12:26 | PT.INTREAT ---
PT Notes Visit Reasons: Weakness Inpatient Physical Therapy Treatment Note [facility] Date: 10/28/24 PRECAUTIONS: Fall. Standard. Activity as tolerated. SUBJECTIVE: She reports that she is very worried about being able to do the stairs at her home. c/o being light headed with ambulation. OBJECTIVE: Pt presented sitting in chair at beginning of PT session. ? Therapeutic Activities (31531r[1]): Direct one-on-one instruction in dynamic activities to improve functional performance. ? BED MOBILITY/TRANSFERS? Stand-sit: with CG of 1 and FFW for UE support once standing. Stand to sit: CG of 1 required verbal instructions for safety ?Provided skilled cues and instruction on performance and technique throughout. Gait : Pt was able to ambulate 40 ft with FFW and CG of 1, 2nd person to manage IV pole Provided instruction for FWW management and technique, negotiating turns and to decrease pace for safety. ? Ther ex: Seated: marching x 10 FAQ x 10 Heel raises/toe raises x 10 ? ASSESSMENT:?Pt moves very quickly and required multiple cues for safety. Unable to attempt stairs today due to pt being lightheaded with ambulation. PLAN: Continued PT to address mobility, gait and balance impairments. Try stairs if able TREATMENT CODE/TIME: 74441 x 20 minutes 11:45-12:05 DISCHARGE RECOMMENDATION: care home facility placement vs supervised home setting
--- NOTE | 2024-10-28 13:40 | W.PM.PROGNOT ---
Date of Service Date of service: 10/28/24 Time of Service: 13:41 Assessment and Plan Assessment and plan (1) Weakness: Status: Acute Assessment and plan: Exact etiology is unknown although does appear to have a psychiatric component. I will check a mag level, Keppra level, B12 level, folate level, iron level, lead level, CK. Will also order a TSH. Continue with physical therapy. 10/28/24 Folate wnl/iron low normal/tsh elevated but FT4 wnl/b12 wnl lead and keppra pending as well as echo and BLE usn to rule out dvt (2) Nicotine dependence: Status: Chronic Assessment and plan: Continue with NicoDerm as needed. (3) Aortic root dilatation: Status: Acute Assessment and plan: Patient will need outpatient follow-up with her PCP and vascular surgery. (4) Tachycardia: Status: Acute Assessment and plan: There is mention of A-fib but this is not improving. Considering her multiple falls would be hesitant to start her on anticoagulation unless it is proven to have A-fib. I will put her on telemetry and check a TSH. An echocardiogram is also pending. (5) Depression: Status: Chronic Assessment and plan: Continue with medical management (6) Vitamin D deficiency: Status: Acute Assessment and plan: Multiple labs are pending. Patient does have an elevated MCV which makes vitamin deficiency certainly possible. (7) Esophageal stricture: Status: Acute Assessment and plan: Outpatient follow-up (8) Chronic diarrhea: Status: Chronic Assessment and plan: Outpatient follow-up (9) Human immunodeficiency virus infection: Status: Chronic Assessment and plan: Continue with medical management and follow-up with ID. (10) Seizure disorder: Status: Chronic Assessment and plan: Patient does have significant history of seizure disorder including brain surgery. I will check a Keppra level. (11) S/P brain surgery: (12) Folate deficiency: Status: Acute Assessment and plan: In reviewing home labs her folate levels were as low as 2.6 with 8.6 being normal. Will recheck this level. This certainly could add to her feelings of weakness (13) D-dimer, elevated: Status: Acute Assessment and plan: CT scan was negative for PE. I will order bilateral lower extremity ultrasounds to rule out DVTs. Patient is on Lovenox for DVT prophylaxis Subjective Subjective Interval history since last seen: Pt in bed resting comfortably. Did not wake Exam Narrative Exam Narrative: NCAT MMM NO RESPIRATORY DISTRESS NO VISIBLE JVD WELL GROOMED NO AUDIBLE WHEEZE Objective Last Vital Signs Temp 36.1 C L 10/28/24 07:54 Pulse 82 10/28/24 07:54 Resp 26 H 10/28/24 07:54 BP 102/67 10/28/24 07:54 Pulse Ox 98 10/28/24 07:54 Laboratory Results - last 24 hr 10/27/24 10/27/24 10/28/24 12:26 15:12 06:50 WBC 5.16 RBC 2.40 L Hgb 8.3 L Hct 25.1 L MCV 105 H MCH 34.6 H MCHC 33.1 RDW 13.0 Plt Count 274 MPV 8.8 Immature Gran % 0.4 Neutrophils % 70.2 Lymphocytes % 20.7 Monocytes % 6.0 Eosinophils % 2.1 Basophils % 0.6 Nucleated RBC % 0.0 Absolute Neutrophils 3.62 Absolute Lymphocytes 1.07 L Absolute Monocytes 0.31 Absolute Eosinophils 0.11 Absolute Basophils 0.03 Sodium 140 Potassium 3.5 Chloride 105 Carbon Dioxide 31.6 Anion Gap 3.4 BUN 11 Creatinine 0.9 Est GFR (CKD-EPI 2020) 70.07 Glucose 95 Calcium 8.4 L Magnesium 1.8 Iron 51 TIBC 126 L Transferrin % Sat 40 Total Bilirubin 0.5 AST 17 ALT 11 L Alkaline Phosphatase 50 Creatine Kinase 11 L Total Protein 5.3 L Albumin 1.7 L Vitamin B12 709 Folate > 20.0 H TSH 4.17 H Free T4 0.94 Add-On Test Request DONE Time Spent with Patient Time Spent with Patient: 35-49 minutes Time was spent: preparing to see the patient(eg.review tests), obtaining and/or reviewing separately otained hiistory, ordering medications,tests, procedures, referring, communicating with other health healthcare corporate account director, indepentently interpreting results, counseling the patient and care coordination
[2024-10-28] MEDS: Enoxaparin 40 MG/0.4 ML SYR SC (18:15)
[2024-10-28 22:51] VITALS: BP 105/61; PULSE 83; RESP 20; TEMP 36.3; O2SAT 97
--- NOTE | 2024-10-29 | DI.US_ITS ---
Exam(s) US EXTREMITY VENOUS BI EXAM: US EXTREMITY VENOUS BI CLINICAL HISTORY: pain and elevated dimer. TECHNIQUE: Bilateral lower extremity venous ultrasound performed using grayscale, color-flow, and spectral Doppler analysis. COMPARISON: No exams were available for comparison FINDINGS: The bilateral common femoral, femoral and popliteal veins demonstrate normal compressibility, augmentation, and color Doppler. The posterior tibial and peroneal veins are patent. IMPRESSION: Right: Negative for DVT Left: Negative for DVT DATA REPOSITORY:
[2024-10-29 06:59] LABS: Abs Immature Grans 0.02 10^3/uL (0.0-0.06); HCT 26.2 % (36.0-46.0); HGB 8.4 g/dL (11.2-15.7); Immature Grans % 0.4 %; MCH 34.4 pg (27.0-33.0); MCHC 32.1 % (32.0-36.0); MCV 107 fL (80-95); MPV 8.8 fL (8.0-11.0); Platelet Count 308 10^3/uL (130-400); RBC 2.44 10^6/uL (3.93-5.22); RDW 13.2 % (11.7-14.6); RDW-SD 51.5 fL; WBC 5.37 10^3/uL (4.4-10.8)
[2024-10-29 07:59] LABS: ALT 11 U/L (14-59); AST 16 U/L (15-37); Albumin 1.8 g/dL (3.4-5.0); Alkaline Phosphatase 54 U/L (46-116); Anion Gap 6.7 mmol/L (3-11); BUN 9 mg/dL (7-18); Bilirubin, Total 0.4 mg/dL (0.2-1.0); CO2 27.3 mmol/L (21.0-32.0); Calcium 8.4 mg/dL (8.5-10.1); Chloride 109 mmol/L (98-107); Estimated GFR 70.07 (mL/min/1.73m2); Glucose 101 mg/dL (74-106); Potassium 4.1 mmol/L (3.5-5.1); Sodium 143 mmol/L (136-145); Total Protein 5.3 g/dL (6.4-8.2)
[2024-10-29 08:15] LABS: Anisocytosis 1+; Basophilic Stippling 1+; Macrocytosis 2+
[2024-10-29 08:46] VITALS: BP 112/65; PULSE 82; RESP 16; TEMP 36.1; O2SAT 97
[2024-10-29] MEDS: Magnesium Oxide 400 MG TAB PO (09:06)
[2024-10-29] MEDS: levETIRAcetam 500 MG TAB PO ×2 (09:06→21:26)
[2024-10-29] MEDS: Potassium Chloride Liquid 20 MEQ PKT PO (09:06)
[2024-10-29] MEDS: Cyanocobalamin 500 MCG TAB 1000 MCG PO (09:06)
[2024-10-29] MEDS: Multivitamin TAB 1 TAB PO ×2 (09:06→21:26)
[2024-10-29] MEDS: Lacosamide 100 MG TAB 200 MG PO ×2 (09:06→21:26)
--- NOTE | 2024-10-29 13:35 | DI.US_ITS ---
APPROVED REPORT EXAM: Comprehensive 2D, Doppler, and color-flow Echocardiogram Patient Location: In-Patient Room/Bed: 209 Incubator Machine Operator: Domingo Patel RDCS (AE) Indications: Afib Other Information Study Quality: Adequate. Technically limited study due to body habitus. Conclusion Normal left ventricular wall thickness and chamber size. Ejection fraction is 60%. Wall motion is normal Normal right ventricular size and function Both atria are normal in size Aortic valve is calcified and trileaflet. There is mild to moderate aortic stenosis. Peak gradient is 37, mean 22 mmHg. Calculated aortic valve area is 1.8 cm?? .there is no aortic regurgitation Wall motion Left Ventricle The left ventricle is normal size. The left ventricular systolic function is normal. The left ventricular ejection fraction is within the normal range. There is normal left ventricular wall thickness. There is normal LV segmental wall motion. There is no ventricular septal defect visualized. LVEF is 60%. Right Ventricle The right ventricle is normal size. The right ventricular systolic function is normal. Atria The left atrium size is normal. The right atrium size is normal. The interatrial septum is intact with no evidence for an atrial septal defect. Aortic Valve Aortic valve is calcified. Aortic valve is trileaflet. Mild to moderate aortic stenosis. Peak aortic valve gradient is 37.02 mmHg. Highest mean aortic valve gradient is 22.23 mmHg. Calculated JONATHON by the continuity equation is 1.8 cm2. No aortic regurgitation is present. Mitral Valve The mitral valve is normal in structure. No evidence of mitral valve stenosis. There is no mitral valve regurgitation noted. Tricuspid Valve The tricuspid valve is normal in structure. There is no tricuspid valve stenosis. Trace tricuspid regurgitation. Pulmonic Valve The pulmonary valve is normal in structure. There is no pulmonic valvular stenosis. There is no pulmonic valvular regurgitation. Great Vessels The aortic root is normal in size. Ascending aorta is not well visualized. Aortic arch is normal in caliber. IVC is normal in size and collapses >50% with inspiration. Pericardium There is no pericardial effusion. 2D Dimensions IVSD d PLAX 0.85 cm F: 0.6-1.0 Ao Root d 2.95 cm F: 2.7 - 3.3 LVPW d PLAX 0.87 cm F: 0.6 - 1.0 LVID d PLAX 4.57 cm F: 3.8 - 5.2 LVDs 3.28 cm F: 2.2 - 3.5 LV EF Teichholz 54.8 % FS 28.33 % LV EDV (Teich) 95.8 mL LV ESV (Teich) 43.3 mL Stroke Vol Index (Teich) 28.70 M-Mode TAPSE 2.34 cm (M/F) >1.7 Auto EF LV EDV A4C 65.9 mL LV EDV A2C 54.3 mL LV EDV BP LV ESV A4C 25.6 mL LV ESV A2C 21.9 mL LV ESV BP LVEF(%) A4C 61.1 % LVEF(%) A2C 59.6 % LVEF(%) BP LV SV A4C 40.3 ml LV SV A2C 32.3 ml LV SV BP LV CO A4C 3.5 L/min LV CO A2C 2.8 L/min LV CO BP HR A4C 87.77 BPM HR A2C 87.18 BPM LV EDV Index (BP) LA Volume LA Length A4C 4.1 cm LA Length A2C LA Area A4C s 7.42 cm2 LA Area A2C s LA Vol A4C A-L 11.32 mL LA Vol A2C A-L LA Vol Biplane A-L LA Vol A4C MOD 10.4 mL LA Vol A2C MOD LA Vol BP MOD RA Volume RA Area A4C 5.1 cm2 RA ESV A4C (A-L) 6.7mL RA Vol/BSA A4C A-L RA Length A4C 3.3 cm RA ESV A4C (MOD) 6.4mL LV Diastology MV E' medial 0.082 (>0.07 m/s) MV E Vmax 0.83 (0.4-1.3 m/s) MV E/E' MED 10.06 (<14) MV A Vmax 1.20 (0.4-1.3 m/s) MV E' lateral 0.099 (>0.1 m/s) E/A Ratio 0.7 MV E/E' LAT 8.33 (<14) MV E' Average 0.091 m/s MV E/E'(average) 9.11 Aortic Valve AoV Vmax 3.04 m/s LVOT Vmax 1.35 m/s AoV Peak Grad 37.0 mmHg LVOT Peak Grad 7.3 mmHg AoV Area (Vmax) 1.58 cm2 LVOT VTI 0.271 m AoV VTI 0.535 m LVOT Mean Grad 3.6 mmHg AoV Mean Paulie. 2.20 m/s LVOT SV 96.25 mL AoV Mean Grad 22.2 mmHg LVOT Diam s 2.10 cm AoV Area (VTI) 1.80 cm2 AV Regurg Peak Gr. 37.02 mmHg Velocity Ratio 0.44 Pulmonary Valve PV Vmax 1.42 (0.5-1.5 m/s) RVOT Vmax 1.04 m/s PV Peak Grad 8.1 mmHg RVOT Peak Gr. 4.4 mmHg PV Mean Paulie 0.96 m/s RVOT VTI 0.181 m PV Mean Grad 4.2 mmHg RVOT Mean Gr. 2.5 mmHg
--- NOTE | 2024-10-29 14:00 | CHAPLAIN ---
Josiane was in bed when I visited. She is here for weakness. Josiane said she doesn't have any family or friends in the area. She shared some personal history, telling me that she was born in [facility], lived there, in [place], in [place] before moving to [place] which I like very much. According to ED notes, Josiane lives alone in an apartment and has three sets of stairs to get to her place. I explained my role and offered support and will continue to visit.
[2024-10-29] MEDS: Scopolamine 1 MG/3 DAYS PATCH TD (14:40)
--- NOTE | 2024-10-29 17:09 | INITIAL_ITS ---
Date of service: 10/29/24 Time of Service: 12:00 Care Management Initial Assmt Initial Assessment Reason for Hospitalization: weakness Functional Status/Living Situation Patient Presentation: Josiane presented to the ED on the afternoon of 10/27 with c/o weakness and shortness of breath. She was admitted to observation, requiring echocardiogram to complete her work up. Echo was not able to be completed until today, due to the weekend. Josiane was lying in bed when CM met with her today. She seemed tired, but was willing to talk. Josiane was noted to have some trouble with word finding, but she stated that this is not new. Josiane lives alone in a 3rd floor walk up apartment. She has no real supports in the area. Her neighbors will sometimes help, but she has no one she can really count on. She is not able to climb the stairs to her apartment without significant shortness of breath. PT is recommending SNF for Josiane, but she has been admitted in observation, and is not ACO attributed. Also, she does not want to go to SNF, but prefers to stay home. Josiane receives home visits from her [facility], and is scheduled for such on 11/01. [place] [facility] referral was sent. Looking to get a student finance specialist, someone to help with groceries, and options counseling. Had a call back from them almost immediately. Josiane just had her choices for care application filed last week, and she has already been accepted in terms of her financials, but it is not clear if she has had her medical needs looked at as of yet. Josiane also has 3 squares, fuel assistance, and traditional medicaid. Referral to [facility] was also placed. CM reached out to the manager long term care at her PCP office, but it was after hours. Will f/u on that tomorrow. 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) Instrumental Activities of Daily Living (ADLs): Independent Medications Medication Management: No Issues/Barriers identified Physical Functioning/Mobility Assistive Device: unable to ambulate up stairs, FWW Advance Directives Advance Directives: Do you have an Advance Directive: N , 08:51 AD On File at [facility]: N 07/20/20, 08:51 Date Asked 10/27/24 10/27/24, 10:46 AD Date Reviewed COLST On File at [facility] No 07/20/20, 08:51 COLST Date Scanned Code Status Resuscitation Status Full Code Insurance Coverage/Financial Issues Insurance: Medicare Part A & B - Medicaid of [place] Care Team Visit Care Team Role Provider Type April Hutson MD Primary Care Provider [facility] STAFF PHYSICIAN InPatient Saud Callahan Other Providers OTHER Andrew Cervantes MD Emergency Provider [facility] STAFF PHYSICIAN South Jaime MD Admit Provider [facility] STAFF PHYSICIAN Attending Provider Discharge Potential Discharge Needs: PCP F/U Appt and Other (Has an in-home visit scheduled for 11/01 with the [facility], Brittanie Pina MD on 11/01) Anticipated Barriers to Discharge: None Identified Patient/Family Education Needs: Review discharge instructions, discuss Ask Me Three Transportation: [facility] Transportation: Private vechicle (will need lift assist to help her get in her house) Plan: Anticipate that Josiane will discharge home with new services of [facility] RN, PT/OT. She will f/u with her PCP and the [facility] as above. She will transport home via [facility] and require a lift assist once home. CM will assure she has a to go bag of food from the cafeteria upond discharge. CM will continue to follow. Social Determinants of Health Screening Social Determinants of health last assessed in clinic: 10/29/24 Will the Patient Participate in the Screening?: Yes Do you worry about having a steady place to live?: yes What is your living situation today?: I have housing today, but am worried about losing it Problems where you live: no known problems In the past 12 months, have you had to go without electric, gas, oil or water in your home?: no 1. Within the past 12 months, we worried whether our food would run out before we got money to buy more.: Sometimes true 2. Within the past 12 months, the food we bought just didn't last and we didn't have money to get more.: Sometimes true Has lack of transportation kept you from medical appointments or from doing things needed for daily living?: yes Has anyone in your life made you feel unsafe or unsupported?: no How hard is it for you to pay for the very basics like food, housing, medical care, and heating? Would you say it is:: Somewhat hard Do you want help finding or keeping work or a job?: I do not need or want help If for any reason you need help with day-to-day activities such as bathing, preparing meals, shopping, managing finances, etc., do you get the help you need?: I could use a little more help How often do you feel lonely or isolated from those around you?: Always Do you speak a language other than Romansh at home?: No Does the patient want assistance with any of the above?: No Health Related Social Needs Health related social needs: housing instability, housed, with risk of homelessness (Z59.811), food insecurity (Z59.41), transportation insecurity (Z59.82), problems related to housing/economic circumstances (Z59.89), problems with daily activities (Z73.9) and feeling lonely/isolated (Z60.8) Health related social needs details: Needing support with shopping for groceries PFS All Active Problems (Updated 10/27/24 @ 15:43 by South Jaime MD) D-dimer, elevated (Acute) Folate deficiency (Acute) Macrocytic anemia (Acute) Bronchitis (Acute) Tachycardia (Acute) Weakness (Acute) Aortic root dilatation (Acute) Acute hypokalemia (Acute) Gastroenteritis and colitis, viral (Acute) Diarrhea (Acute) Peptic stricture of esophagus (Acute) 11/22/22 dilated at GI Partial epilepsy with impairment of consciousness, intractable (Acute) Housing or economic problem (Acute) AIDS (Acute) Family estrangement (Chronic) cut of from sister and son Aunt Alyssa Lund only family in touch Chronic diarrhea (Chronic) Seizure disorder (Chronic) complex partial seizures Goals of care, counseling/discussion (Acute) wants aggressive care would want chemo and surgery Full code status (Chronic) wants aggressive treatment for all health issues Colonic thickening (Acute) Diverticula of colon (Acute) Diarrhea (Acute) Renal cyst (Acute) Abnormal CT of the abdomen (Chronic) Electrolyte depletion (Acute) Pancytopenia (Acute) Colitis, acute (Acute) Esophagitis determined by biopsy (Chronic) [place] [facility] 02/05/20, repeat 6 mos or sooner prn. Dysphagia (Acute) Esophageal stricture (Acute) 02/05/20 [facility] Endoscopy - moderate distal esophageal stenosis by UGI. Balloon dilation to 15mm. Mild cognitive impairment (Acute) Insomnia (Chronic) Medication overuse headache (Chronic) Migraine headache with aura (Chronic) Focal epilepsy with impairment of consciousness, intractable (Chronic) Vitamin D deficiency (Acute) Temporal sclerosis (Acute) Anxiety (Chronic) Gastroesophageal reflux disease with esophagitis (Acute 02/10/12) LA grade D esophagitis Upper GI [place]noscopy [place] [facility] [place] [place]-benign appearing esophageal stenosis 01/14/20-Upper GI endoscopy-biopsies taken HH (hiatus hernia) (Acute 10/16/15) Dr Ramesh Johnson, [facility] [place] [facility] Endo 4 cm by UGI 03/03/23[place] [place] Endo 2 cm Human immunodeficiency virus infection (Chronic 02/26/90) Dr. Antony Myers, , [facility] ID CD 4 count improved 07/17 Hyperlipidemia (Acute 02/10/12) Nicotine dependence (Chronic 10/15/13) not interested in quitting Rosacea (Acute 07/17/12) dr lopez Tubular adenoma of colon (Acute 05/08/10) Colon polyposis (Chronic) Anal fissure (Chronic) Dysphagia (Chronic) Hyperlipidemia (Chronic) Depression (Chronic) Medical History Left-sided weakness subjective, not objectively confirmed Unintentional weight loss Palliative care patient Weight loss Pruritus Hx of meningitis Seizures, generalized convulsive Surgical History H/O endoscopy (~11/22/22) 03/03/23-dilation performed. path: mid esophagus bx, (multiple): Esophageal squamos mucosa with reactive changes. 09/28/[id number] of recurrent strictures S/P brain surgery temporal lobectomy for refractory epilepsy Endoscopy (10/16/15) Dr Ramesh Johnson [facility] [place] Upper Endoscopy [facility]. esophagus with crepe paper appearance with distal rings s/p dilation to 15 mm Colonoscopy - MAC (12/09/13) per Dr. Wren , hemorroids banded, 3 polyps biopsied Family History Sister Headache Family estrangement Mother , age 87 from lung cancer Lung cancer Father Parent-child estrangement nec Son Parent-child estrangement nec Aunt Health care proxy on file Social History Smoking/Tobacco Use Status: Current every day Tobacco Type: cigarettes Tobacco: How many years used: 45 Smoking risk assessment performed?: Yes Alcohol Intake: former Year quit: 2019 Drug use: Never Substance use type: does not use Details: smokes 4 packs per week no alcohol for over 3 months Caregiver/Support person: No Household members: none Housing: apartment Number of Children: 1 Education Level: high school Do you need help understanding health information?: Always current occupation: disabled Do you think of yourself as: straight/heterosexual What is your relationship status?: How often do you talk on the phone with friends or family?: never How often do you get together with friends or relatives?: three or more times per week Panel score (0-1 are the most socially isolated patients): 1 What type of physical activity do you participate in: walking and independent ambulation Duration: 15-30 minutes/day Frequency: daily Special kingsley needs: No Agree to transfusion: Yes Seatbelt use: always Helmet use: Yes Drive intox or ride w/intox solo truck driver: No Water heater temp set <120 deg: Yes Working smoke detector in home: Yes Fire extinguisher in home: Yes Carbon monox detector in home: Yes Firearms in home: No In current or past relationships, have you been: made to feel afraid Do you feel safe at home: Yes Do you feel safe in your relationship?: Yes Additional Social history: lives alone on the 3rd floor (top floor) in apt building. - As of spring 2020, able to go up and down steep stairs, walk up steep hill. Doing much better re: strength and stamina. In October, reported numerous housing issues: ceiling in living room fell in, hastily and messily patched. Moisture palpable around top of diaz, where they meet ceiling. Josiane reports both mold and electricity issues. She was very agitated over her living situation. Says neighbors have walked into her home while she was across the street. Used to leave house unlocked. No longer does. Altercation with landlord. Still loves the 6 yo girl who lives next door, but doesn't like interacting with her parents. Doesn't feel safe at home. Interested in bird-watching. Involved with Cory. She is fully vaccinated now against COVID-19--had her booster on 10/28/20. We did call [facility] while I was present. [facility]lem will help her with housing. Advised Josiane needs to move [place] for both her physical and mental health. Anticipated HH Services Anticipated HH Services at Discharge [facility] Needed, OT, PT and RN Following Provider: Haresh.
[2024-10-29] MEDS: Enoxaparin 40 MG/0.4 ML SYR SC (17:26)
--- NOTE | 2024-10-29 18:26 | W.PM.PROGNOT ---
Date of Service Date of service: 10/29/24 Time of Service: 18:26 Assessment and Plan Assessment and plan (1) Weakness: Status: Acute Assessment and plan: Exact etiology is unknown although does appear to have a psychiatric component. I will check a mag level, Keppra level, B12 level, folate level, iron level, lead level, CK. Will also order a TSH. Continue with physical therapy. 10/28/24 Folate wnl/iron low normal/tsh elevated but FT4 wnl/b12 wnl lead and keppra pending as well as echo and BLE usn to rule out dvt (2) Nicotine dependence: Status: Chronic Assessment and plan: Continue with NicoDerm as needed. (3) Aortic root dilatation: Status: Acute Assessment and plan: Patient will need outpatient follow-up with her PCP and vascular surgery. (4) Tachycardia: Status: Acute Assessment and plan: There is mention of A-fib but this is not improving. Considering her multiple falls would be hesitant to start her on anticoagulation unless it is proven to have A-fib. I will put her on telemetry and check a TSH. An echocardiogram is also pending. (5) Depression: Status: Chronic Assessment and plan: Continue with medical management (6) Vitamin D deficiency: Status: Acute Assessment and plan: Multiple labs are pending. Patient does have an elevated MCV which makes vitamin deficiency certainly possible. (7) Esophageal stricture: Status: Acute Assessment and plan: Outpatient follow-up (8) Chronic diarrhea: Status: Chronic Assessment and plan: Outpatient follow-up (9) Human immunodeficiency virus infection: Status: Chronic Assessment and plan: Continue with medical management and follow-up with ID. (10) Seizure disorder: Status: Chronic Assessment and plan: Patient does have significant history of seizure disorder including brain surgery. I will check a Keppra level. (11) S/P brain surgery: (12) Folate deficiency: Status: Acute Assessment and plan: In reviewing home labs her folate levels were as low as 2.6 with 8.6 being normal. Will recheck this level. This certainly could add to her feelings of weakness (13) D-dimer, elevated: Status: Acute Assessment and plan: CT scan was negative for PE. I will order bilateral lower extremity ultrasounds to rule out DVTs. Patient is on Lovenox for DVT prophylaxis (14) Nausea & vomiting: Status: Acute Assessment and plan: scopolamine patch Subjective Subjective Interval history since last seen: no new complaints, had n/v this am Exam Narrative Exam Narrative: NCAT MMM NO RESPIRATORY DISTRESS NO VISIBLE JVD WELL GROOMED NO AUDIBLE WHEEZE Objective Last Vital Signs Temp 36.1 C L 10/29/24 08:46 Pulse 82 10/29/24 08:46 Resp 16 10/29/24 08:46 BP 112/65 10/29/24 08:46 Pulse Ox 97 10/29/24 08:46 Laboratory Results - last 24 hr 10/29/24 06:05 WBC 5.37 RBC 2.44 L Hgb 8.4 L Hct 26.2 L MCV 107 H MCH 34.4 H MCHC 32.1 RDW 13.2 Plt Count 308 MPV 8.8 Immature Gran % 0.4 Neutrophils % 60.3 Lymphocytes % 30.0 Monocytes % 7.1 Eosinophils % 1.5 Basophils % 0.7 Nucleated RBC % 0.0 Absolute Neutrophils 3.24 Absolute Lymphocytes 1.61 Absolute Monocytes 0.38 Absolute Eosinophils 0.08 Absolute Basophils 0.04 RBC Morphology See Below Basophilic Stippling 1+ Anisocytosis 1+ Macrocytosis 2+ Sodium 143 Potassium 4.1 Chloride 109 H Carbon Dioxide 27.3 Anion Gap 6.7 BUN 9 Creatinine 0.9 Est GFR (CKD-EPI 2020) 70.07 Glucose 101 Calcium 8.4 L Total Bilirubin 0.4 AST 16 ALT 11 L Alkaline Phosphatase 54 Total Protein 5.3 L Albumin 1.8 L Time Spent with Patient Time Spent with Patient: 25-34 minutes Time was spent: preparing to see the patient(eg.review tests), obtaining and/or reviewing separately otained hiistory, ordering medications,tests, procedures, referring, communicating with other health health care marketing manager, indepentently interpreting results, counseling the patient and care coordination
[2024-10-29 19:37] VITALS: BP 104/62; PULSE 81; RESP 22; TEMP 36.5; O2SAT 97
[2024-10-30 06:52] LABS: Abs Immature Grans 0.03 10^3/uL (0.0-0.06); HCT 27.1 % (36.0-46.0); HGB 8.5 g/dL (11.2-15.7); Immature Grans % 0.5 %; MCH 33.9 pg (27.0-33.0); MCHC 31.4 % (32.0-36.0); MCV 108 fL (80-95); MPV 8.6 fL (8.0-11.0); Platelet Count 299 10^3/uL (130-400); RBC 2.51 10^6/uL (3.93-5.22); RDW 13.3 % (11.7-14.6); RDW-SD 51.7 fL; WBC 5.46 10^3/uL (4.4-10.8)
[2024-10-30 07:12] LABS: ALT 12 U/L (14-59); AST 16 U/L (15-37); Albumin 1.8 g/dL (3.4-5.0); Alkaline Phosphatase 57 U/L (46-116); Anion Gap 6.8 mmol/L (3-11); BUN 10 mg/dL (7-18); Bilirubin, Total 0.3 mg/dL (0.2-1.0); CO2 27.2 mmol/L (21.0-32.0); Calcium 8.8 mg/dL (8.5-10.1); Chloride 109 mmol/L (98-107); Estimated GFR 70.07 (mL/min/1.73m2); Glucose 103 mg/dL (74-106); Potassium 4.6 mmol/L (3.5-5.1); Sodium 143 mmol/L (136-145); Total Protein 5.5 g/dL (6.4-8.2)
[2024-10-30 07:27] VITALS: BP 117/75; PULSE 81; RESP 20; TEMP 36; O2SAT 93
[2024-10-30] MEDS: Lacosamide 100 MG TAB 200 MG PO ×2 (07:41→21:14)
[2024-10-30] MEDS: Acetaminophen 325 MG TAB PO ×2 (07:42→15:04)
[2024-10-30] MEDS: Potassium Chloride Liquid 20 MEQ PKT PO (07:42)
[2024-10-30] MEDS: Multivitamin TAB 1 TAB PO ×2 (07:42→21:14)
[2024-10-30] MEDS: levETIRAcetam 500 MG TAB PO ×2 (07:42→21:14)
[2024-10-30] MEDS: Cyanocobalamin 500 MCG TAB 1000 MCG PO (07:43)
[2024-10-30] MEDS: Magnesium Oxide 400 MG TAB PO (07:43)
[2024-10-30 08:10] VITALS: PULSE 67
--- NOTE | 2024-10-30 11:06 | PHA.REVIEW2 ---
Pharmacy Admission Review Admission Clinical Review Admission Pharmacy Review: Nausea & vomiting (Acute) D-dimer, elevated (Acute) Folate deficiency (Acute) Macrocytic anemia (Acute) Bronchitis (Acute) Tachycardia (Acute) Weakness (Acute) Aortic root dilatation (Acute) Esophageal stricture (Acute) Vitamin D deficiency (Acute) topiramate Allergy (Intermediate, Verified 06/22/20 14:39) rash, itching lamotrigine (From Lamictal) Adverse Reaction (Intermediate, Verified 06/22/20 14:39) dizzy, double vision Resuscitation Status Full Code Height 5 ft 6 in Weight 74.8 kg Comments Comments/Follow Ups: Per provider medically cleared - discharge issues Pharmacy Admission Review Renal Dosing Renal Dosing: BUN 10 mg/dL (7-18) 10/30/24 06:30 Creatinine 0.9 mg/dL (0.55-1.02) 10/30/24 06:30 Medications needing adjustments: Reviewed (CrCl 56.44 mL/min) List of meds needing interventions: Current medications are okay Anticoagulation Anticoagulation: Hgb 8.5 g/dL (11.2-15.7) L 10/30/24 06:30 Hct 27.1 % (36.0-46.0) L 10/30/24 06:30 Plt Count 299 10^3/uL (130-400) 10/30/24 06:30 Creatinine 0.9 mg/dL (0.55-1.02) 10/30/24 06:30 DVT Prophylaxis: Reviewed (Hgb increased from 8.4) Medications: Enoxaparin (40mg daily) Relevant Labs Relevant Labs: Sodium 143 mmol/L (136-145) 10/30/24 06:30 Potassium 4.6 mmol/L (3.5-5.1) 10/30/24 06:30 Chloride 109 mmol/L (98-107) H 10/30/24 06:30 Magnesium 1.8 mg/dL (1.8-2.4) 10/28/24 06:50 Electrolytes, C-Reactive P, ESR: Reviewed Cardiac Review Cardiac Review: Troponin I 9 ng/L (<or=51) 10/27/24 12:26 BP, HR, EF%: Reviewed (BP and HR WNL) QTc Review QTc: Reviewed (442 from 10/27/24) IV to PO Switch IV Medications: Reviewed Home Meds Home Med List reviewed: Intervened Relevent Home Meds Not ordered & why?: Order still pending for patients Cabenuva - IM injection given every 2 months. Called nurse again this morning to see when patient is due for next dose. Waiting to hear back Current Meds Current Medication Order Review: Reviewed Comments Comments/Follow Ups: Per provider medically cleared - discharge issues
--- NOTE | 2024-10-30 12:46 | PTTR_ITS ---
PT Notes Visit Reasons: Weakness Physical Therapy Inpatient Treatment Note Date: 10/30/2024 Precautions: Fall. Standard. Activity as tolerated. Subjective: Agreeable e to PT consult. Unable to fully express answers and connect her thoughts due to confusion. Complains of weakness and fatigue. Denies headache, chest pain, and dizziness throughout session. Does not feel safe moving on her own and getting up her three flights of steps to her apartment. Worried about being alone. Objective: General Observation: Supine in bed. Unkempt, hair dishevelled. Kept on holding head with both hands when she forgets what she needed to say. Antithromboembolic pumps on. Telemetry monitoring in place. Mental Status: Alert and oriented to person and place. Thoughts fragmented and disconnected, unable to respond to questions due to confusion. Pain: 10 out of 10 pain in the left knee with weight bearing 6?7/10 pain in the abdominal and anal area Bed Mobility/Transfers: Minimal cueing provided for use of B hands as needed for support, movement sequence, AD management, and posture to reduce fall risk and minimize pain report Supine to sit SBA with HOB at 30 degrees Sit to supine contact-guard assist Sit to stand contact-guard assist Stand to sit contact-guard assist Bed to chair contact-guard assist Gait: Guided patient through level surface ambulation of up to 200 feet + 200 feet using a standard walker with full weight bearing on bilateral lower extremities with minimal assist. Three episdes of R foot crossing over in front of the foot and then loosing balance and falling to the L (ataxic gait) needing assistance from PT. Tendency to lag behind wheelchair preceded the stepping issue after Minimal path deviation with one episode of near LOB during a turn. Stairs: Up and down 2 x 6-inch steps and 6 x 4-inch steps while holding onto B rails with moderate verbal cueing needed for safe technique contact guard assist and moderate verbal cueing for safety was provided. Balance: Static Sitting: Normal Dynamic Sitting: Normal Static Standing: Fair Dynamic Standing: Fair Assessment: Safety awareness impaired, impulsivity high, gait instability still evident. Patient demonstrates high risk for falls and inability to thrive independently at home. Risk fore rehospitalization high. Had three episodes of R foot inadvertently crossing over the left foot which resulted to loss of balance to left needing minimal assist of PT for restabilization. Unable to safely plan execution of movement, i.e., leaves walker to the side to sit down or go to bed, unable to maintain safe technique despite instructions given several times with sit<>stand which can increase fall risk, was looking for a chair at bottom of practice steps to sit before realizing that chairs in the therapy room were by the door. DISCHARGE RECOMMENDATIONS: Patient will benefit from correction facility placement vs supervised home setting for continued skilled physical therapy services in order to progress mobility level, strength, and balance. Will benefit from the use of a front wheeled walker. TREATMENT CODE/TIME: 99348 x 33 minutes for 2 units (12:46-13:19).
--- NOTE | 2024-10-30 12:50 | W.SPSTE ---
Date of service: 10/30/24 Time of Service: 12:50 Subjective Clinical (Bedside) Swallow Evaluation - Inpatient Speech Language Pathology Referred by: Bianca Salas Referral Type: Routine Swallow Consult Precautions: Standard,Fall, Full Code Reason for Referral/HPI: Josiane is a 69 y/o F with HIV, seizure disorder, esophageal stricture with prior dilations, who presents after a fall down some stairs at home, and with reported 1 month history of increased weakness, increased falls, and reduced appetite. Patient is concerned with weight loss, down about 30-40 lbs in several months. SENIOR CLINICAL DATA ANALYST IMPRESSIONS & RECOMMENDATIONS: Do not appreciate any clinical sx significant for oral-pharyngeal component at this time, patient appears with largely esophageal dysphagia which is well documented at baseline. Her last dilation was 1 year ago with GI at [facility]. Her primary baseline complaint is with pills and other solid bolus, she describes a sensation of the pill sticking near the top of her chest, and she will cough to try to get this out, however, usually this is only productive of foamy secretions. With solids and purees this date, she reports sensation of proximal esophageal residue which is mildly painful, this improves somewhat with liquid wash. Self-feeding behaviors are mildly impulsive with large bite sizes. Patient appearing overall weak, slow, with delays, but overall safe swallow function. At baseline she has benefitted from liquid medication formulations in the past due to esophageal stricture. Discussed diet consistency options with the patient, she is interested in trying a pureed diet given her significant difficulty with solid foods. She would benefit from urgent GI referral for dilation given reported degree of weight loss. May also benefit from nutrition consult. RECOMMENDATIONS Diet modification is indicated as follows for the purpose of reduced esophageal stasis, patient preferences/to increase nutritional intake Diet Recommendations: ? SOLIDS: 4-Pureed Solids Diet is per patient preference/comfort, please upgrade as needed per patient request. LIQUIDS: 0-Thin Liquids MEDICATIONS: Liquid formulations when able Otherwise whole, one a time with thin liquid. RISK MANAGEMENT: Level of Assistance/Supervision: Independent Positioning and environment: Up to chair or side of bed Oral hygiene BID/2x per day Using friction with toothbrush on all oral structures as tolerated Strategies/Adaptations/Assistive Equipment: Small sips Small bites Slow rate of intake Alternate intake of liquids and solids Reflux Precautions: Small+frequent meals throughout day Maintain fully upright position at least 30 minutes after meals Avoid meals/snacks 2-3 hours prior to reclining/sleeping Sleep with head of bed elevated to reduce likelihood of nocturnal reflux FURTHER INPATIENT SENIOR CLINICAL DATA ANALYST SERVICES: No further SENIOR CLINICAL DATA ANALYST services indicated Suggested Referrals/Consults: Gastroenterology Consider the Following Procedures: Barium Esophagram/Regular Barium Swallow Study Discharge Recommendations: No further SENIOR CLINICAL DATA ANALYST services indicated/Please re-refer as needed SUBJECTIVE: Patient received: alert/awake. Agreeable to evaluation. Pain Reported n/a Baseline Swallow Function: Patient reports proximal esophageal stasis (localizes to level of clavicle). This can cause her to cough in an attempt to bring food or pills back up, but usually only productive of foamy secretions. OBJECTIVE Patient positioning: Up to chair/90 degrees Respiratory status: Room air, tolerates well. 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 Speech: WFL Oral Mechanism Examination: Dentition: Partial natural dentition Oral mucosa: WFL ? Cranial Nerve Assessment: CN V ? Trigeminal Facial Sensation WNL Jaw Strength/ROM WNL ?WNL CN VII- Facial WNL labial ROM, strength, coordination. WNL lingual sensation WNL CN IX ? Glossopharyngeal WNL palatal elevation with phonation. No evidence of nasal emissions WNL CN X ? Vagus WNL Vocal quality and volume. Strong/sharp volitional cough WNL CX XII ? Hypoglossal WNL lingual ROM, strength, coordination WNL PO Intake: Trials Assessed: IDDSI 0 Thin Liquids IDDSI 4 Puree Solid Oral Phase Findings: WFL Pharyngeal Phase Findings: WFL Esophageal Phase Findings: ?Patient reports esophageal stasis and discomfort ? [place] Swallow Protocol Results: PASS - Complete/uninterrupted without s/sx aspiration Education Provided to: Patient Topics Addressed: anatomy/physiology of swallowing mechanism definition and impacts of aspiration impact of current diagnoses on swallow function role of SENIOR CLINICAL DATA ANALYST in management of swallow disorders overt s/sx to monitor for re: potential aspiration of food / liquids relationship between reflux, GERD and swallow fxn relationship between respiratory function and deglutition rationale and instruction for additional risk management strategies as below PLAN: Frequency: 2-3x/week for 1-2 weeks No further SENIOR CLINICAL DATA ANALYST services indicated at this time. Please re-refer as needed. SENIOR CLINICAL DATA ANALYST CPT Code: 52400 Clinical Swallowing Evaluation Start time: 12:20 End time: 12:45 Total patient contact: 25 min
--- NOTE | 2024-10-30 14:03 | W.PM.PROGNOT ---
Date of Service Date of service: 10/30/24 Time of Service: 14:03 Assessment and Plan Assessment and plan (1) Weakness: Status: Acute Assessment and plan: Exact etiology is unknown although does appear to have a psychiatric component. I will check a mag level, Keppra level, B12 level, folate level, iron level, lead level, CK. Will also order a TSH. Continue with physical therapy. 10/28/24 Folate wnl/iron low normal/tsh elevated but FT4 wnl/b12 wnl lead and keppra pending as well as echo and BLE usn to rule out dvt 10/30/24 excerpt for ED documentation: Will reach out to hospitalist team with request for hospitalization given unsafe discharge in setting of bronchitis weakness. Dr. Cervantes PT Recommendations: SUBJECTIVE: She reports that she is very worried about being able to do the stairs at her home. c/o being light headed with ambulation. DISCHARGE RECOMMENDATION: nursing home facility placement vs supervised home setting It is my opinion that Ms Pacheco is not safe for dc at this time. If PT recommendations change, we can readdress the issue. Nothing significant has changed since admission, and I am not clear on what supervised home setting (2) Nicotine dependence: Status: Chronic Assessment and plan: Continue with NicoDerm as needed. (3) Aortic root dilatation: Status: Acute Assessment and plan: Patient will need outpatient follow-up with her PCP and vascular surgery. (4) Tachycardia: Status: Acute Assessment and plan: There is mention of A-fib but this is not improving. Considering her multiple falls would be hesitant to start her on anticoagulation unless it is proven to have A-fib. I will put her on telemetry and check a TSH. An echocardiogram is also pending. 10/30/24 Normal left ventricular wall thickness and chamber size. Ejection fraction is 60%. Wall motion is normal Normal right ventricular size and function Both atria are normal in size Aortic valve is calcified and trileaflet. There is mild to moderate aortic stenosis. Peak gradient is 37, mean 22 mmHg. Calculated aortic valve area is 1.8 cm?? .there is no aortic regurgitation (5) Depression: Status: Chronic Assessment and plan: Continue with medical management (6) Vitamin D deficiency: Status: Acute Assessment and plan: Multiple labs are pending. Patient does have an elevated MCV which makes vitamin deficiency certainly possible. (7) Esophageal stricture: Status: Acute Assessment and plan: Outpatient follow-up 10/30/24 Speech therapy consult has been placed, awaiting feedback (8) Chronic diarrhea: Status: Chronic Assessment and plan: Outpatient follow-up (9) Human immunodeficiency virus infection: Status: Chronic Assessment and plan: Continue with medical management and follow-up with ID. (10) Seizure disorder: Status: Chronic Assessment and plan: Patient does have significant history of seizure disorder including brain surgery. I will check a Keppra level. (11) S/P brain surgery: (12) Folate deficiency: Status: Acute Assessment and plan: In reviewing home labs her folate levels were as low as 2.6 with 8.6 being normal. Will recheck this level. This certainly could add to her feelings of weakness 10/30/24 folate level is greater than 20 (13) D-dimer, elevated: Status: Acute Assessment and plan: CT scan was negative for PE. I will order bilateral lower extremity ultrasounds to rule out DVTs. Patient is on Lovenox for DVT prophylaxis 10/30/24 BLEUSN is negative (14) Nausea & vomiting: Status: Acute Assessment and plan: scopolamine patch Subjective Subjective Interval history since last seen: Pt still complains of weakness. Exam Narrative Exam Narrative: NCAT MMM NO RESPIRATORY DISTRESS 2/6 ZACHARY NO VISIBLE JVD WELL GROOMED NO AUDIBLE WHEEZE Objective Last Vital Signs Temp 36.0 C L 10/30/24 07:27 Pulse 67 10/30/24 08:10 Resp 20 10/30/24 07:27 BP 117/75 10/30/24 07:27 Pulse Ox 93 10/30/24 07:27 Laboratory Results - last 24 hr 10/30/24 06:30 WBC 5.46 RBC 2.51 L Hgb 8.5 L Hct 27.1 L MCV 108 H MCH 33.9 H MCHC 31.4 L RDW 13.3 Plt Count 299 MPV 8.6 Immature Gran % 0.5 Neutrophils % 61.3 Lymphocytes % 28.9 Monocytes % 6.6 Eosinophils % 2.0 Basophils % 0.7 Nucleated RBC % 0.0 Absolute Neutrophils 3.34 Absolute Lymphocytes 1.58 Absolute Monocytes 0.36 Absolute Eosinophils 0.11 Absolute Basophils 0.04 Sodium 143 Potassium 4.6 Chloride 109 H Carbon Dioxide 27.2 Anion Gap 6.8 BUN 10 Creatinine 0.9 Est GFR (CKD-EPI 2020) 70.07 Glucose 103 Calcium 8.8 Total Bilirubin 0.3 AST 16 ALT 12 L Alkaline Phosphatase 57 Total Protein 5.5 L Albumin 1.8 L Time Spent with Patient Time Spent with Patient: 25-34 minutes Time was spent: preparing to see the patient(eg.review tests), obtaining and/or reviewing separately otained hiistory, ordering medications,tests, procedures, referring, communicating with other health home health aide caregiver, indepentently interpreting results, counseling the patient, care coordination and other
[2024-10-30] MEDS: Enoxaparin 40 MG/0.4 ML SYR SC (15:05)
--- NOTE | 2024-10-30 15:19 | CMPROGNOTE_ITS ---
Date of service: 10/30/24 Time of Service: 15:19 Care Management Progress Note Progress Note Text Progress Note Text: Josiane has been out of bed more today, she walked with the DECORATIVE ENGRAVER around the unit, and has worked with PT. PT is still stating some safety concerns over Josiane going home. Josiane has stated that she would like to go home. She was admitted into observation, and does not have a qualifying stay for SNF admission. Josiane was very pleasant with CM. She looked brighter today and stated feeling a little bit better. She stated that she would definitely like to go home, and is not sure why she has not been discharged. CM talked with Josiane about her the sa fety concerns we have about her not being very steady on her feet. She stated that she has been unsteady for some time, and her inability to get up her stairs is not new. 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 She is also open to [facility] for any help they can give. These referrals were sent yesterday. CM also spoke with the rental boats caretaker at her PCP office this morning. She let me know that Josiane is new to that office. She was referred by Dr. Pina at the [facility], as the clinic is closing end of October and Josiane will need a provider. CM and the rental boats caretaker at PCP office ([facility], Dr. Hutson) discussed Josiane's case and she will be keeping her eye out for Josiane's discharge and will be in touch. F/u appt for 11/05 at 10:20 for hosp ital discharge, 11/19 at 2:10 for new patient appointment. CM will arrange rides for Josiane for these appointments through [facility] should she discharge. Provider has been updated daily. Discharge Potential Discharge Needs: PCP F/U Appt (11/05 at 10:20, 11/19 at 2:10) and Other (vascular surgery referral) Anticipated Barriers to Discharge: SDOH (pt unable to climb the stairs in her apartment building and difficulty obtaining food) Patient/Family Education Needs: Review discharge instructions, discuss Ask Me Three Transportation: [facility] (with lift assist) Plan: Anticipate that Josiane will discharge home with new services of [facility] RN, PT/OT. She will f/u with her PCP and the [facility] as above. She will transport home via [facility] and require a lift assist once home. CM will assure she has a to go bag of food from the cafeteria upond discharge. CM will continue to follow. Social Determinants of Health Screening Social Determinants of health last assessed in clinic: 10/30/24 Will the Patient Participate in the Screening?: Yes Do you worry about having a steady place to live?: yes What is your living situation today?: I have housing today, but am worried about losing it Problems where you live: no known problems In the past 12 months, have you had to go without electric, gas, oil or water in your home?: no 1. Within the past 12 months, we worried whether our food would run out before we got money to buy more.: Sometimes true 2. Within the past 12 months, the food we bought just didn't last and we didn't have money to get more.: Sometimes true Has lack of transportation kept you from medical appointments or from doing things needed for daily living?: yes Has anyone in your life made you feel unsafe or unsupported?: no How hard is it for you to pay for the very basics like food, housing, medical care, and heating? Would you say it is:: Somewhat hard Do you want help finding or keeping work or a job?: I do not need or want help If for any reason you need help with day-to-day activities such as bathing, preparing meals, shopping, managing finances, etc., do you get the help you ne ed?: I could use a little more help How often do you feel lonely or isolated from those around you?: Always Do you speak a language other than Syriac at home?: No Does the patient want assistance with any of the above?: No Health Related Social Needs Health related social needs: housing instability, housed, with risk of homelessness (Z59.811), food insecurity (Z59.41), transportation insecurity (Z59.82), problems related to housing/economic circumstances (Z59.89), problems with daily activities (Z73.9) and feeling lonely/isolated (Z60.8) Health related social needs details: Needing support with shopping for groceries
[2024-10-30 15:34] VITALS: BP 125/70; PULSE 76; RESP 18; TEMP 36.5; O2SAT 95
[2024-10-31 06:17] LABS: Abs Immature Grans 0.02 10^3/uL (0.0-0.06); HCT 27.6 % (36.0-46.0); HGB 8.7 g/dL (11.2-15.7); Immature Grans % 0.3 %; MCH 33.9 pg (27.0-33.0); MCHC 31.5 % (32.0-36.0); MCV 107 fL (80-95); MPV 8.5 fL (8.0-11.0); Platelet Count 282 10^3/uL (130-400); RBC 2.57 10^6/uL (3.93-5.22); RDW 13.5 % (11.7-14.6); RDW-SD 52.9 fL; WBC 5.76 10^3/uL (4.4-10.8)
[2024-10-31 06:47] LABS: ALT 16 U/L (14-59); AST 21 U/L (15-37); Albumin 1.9 g/dL (3.4-5.0); Alkaline Phosphatase 60 U/L (46-116); Anion Gap 2.1 mmol/L (3-11); BUN 13 mg/dL (7-18); Bilirubin, Total 0.2 mg/dL (0.2-1.0); CO2 29.9 mmol/L (21.0-32.0); Calcium 8.9 mg/dL (8.5-10.1); Chloride 110 mmol/L (98-107); Estimated GFR 70.07 (mL/min/1.73m2); Glucose 102 mg/dL (74-106); Potassium 4.6 mmol/L (3.5-5.1); Sodium 142 mmol/L (136-145); Total Protein 5.8 g/dL (6.4-8.2)
[2024-10-31 07:42] VITALS: BP 120/61; PULSE 85; RESP 16; O2SAT 98
[2024-10-31] MEDS: Potassium Chloride Liquid 20 MEQ PKT PO (07:50)
[2024-10-31] MEDS: Cyanocobalamin 500 MCG TAB 1000 MCG PO (07:51)
[2024-10-31] MEDS: Lacosamide 100 MG TAB 200 MG PO ×2 (07:51→20:51)
[2024-10-31] MEDS: Multivitamin TAB 1 TAB PO ×2 (07:51→20:51)
[2024-10-31] MEDS: levETIRAcetam 500 MG TAB PO ×2 (07:51→20:51)
[2024-10-31] MEDS: Magnesium Oxide 400 MG TAB PO (07:51)
--- NOTE | 2024-10-31 09:25 | PTTR_ITS ---
PT Notes Visit Reasons: Weakness Physical Therapy Inpatient Treatment Note Date: 10/31/2024 Precautions: Fall. Standard. Activity as tolerated. Subjective: Agreeable to PT consult. She states she wants to go home but Complains of weakness and fatigue. Denies headache, chest pain, and dizziness throughout session. Does not feel safe getting up her three flights of steps to her apartment. Objective: General Observation: Seated in the chair Unkempt, hair dishevelled. Telemetry monitoring in place. Mental Status: Alert and oriented to person and place. Thoughts fragmented and disconnected, unable to respond to questions due to confusion. Pain: pain in the abdomen Bed Mobility/Transfers: Minimal cueing provided for use of B hands as needed for support, movement sequence, AD management, and posture to reduce fall risk and minimize pain report Supine to sit SBA with HOB at 30 degrees Sit to supine contact-guard assist Sit to stand contact-guard assist x 5 trails Stand to sit contact-guard assist x 5 trials Bed to chair contact-guard assist with FWW Gait: Guided patient through level surface ambulation of up to 200 feet using FWW with full weight bearing on bilateral lower extremities with CG assist. Three episodes of R foot crossing over in front of the foot pt noted with body orientation to left side of walker. . Stairs: Up and down 2 x 6-inch steps and 6 x 4-inch steps while holding onto B rails x 2 trials with moderate verbal cueing needed for safe technique contact guard assist was provided. Balance: Static Sitting: Normal Dynamic Sitting: Normal Static Standing: Fair Dynamic Standing: Fair Assessment: Safety awareness impaired, impulsivity high, gait instability still evident. Patient demonstrates high risk for falls and inability to thrive independently at home. Risk for rehospitalization high. Had 2 episodes of R foot inadvertently crossing over the left foot which resulted to loss of balance to left she did not require assistance of this PT to regain. Unable to safely plan execution of movement, i.e., leaves walker to the side to sit down or go to bed, inconsistently able to maintain safe technique despite instructions given several times with sit<>stand which can increase fall risk. Pt able to perform the practice stairs with B rails and then continue ambulating with FWW with SBA . Pt noted to have improved stability the further she ambulated on this date. Pt also able to perform oral care standing at sink and grooming at sinke with 1 LOB requiring external assist of this PT to regain LOB was posterior to the left.. DISCHARGE RECOMMENDATIONS: Patient will benefit from correction facility placement vs supervised home setting for continued skilled physical therapy services in order to progress mobility level, strength, and balance. Will benefit from the use of a front wheeled walker. TREATMENT CODE/TIME: 15963/ 916.
[2024-10-31] MEDS: Ondansetron O.D.T. 4 MG TABEF PO (09:57)
[2024-10-31] MEDS: Milk of Magnesia 30 ML CUP PO (10:56)
[2024-10-31] MEDS: Docusate Sodium 100 MG CAP PO (10:56)
[2024-10-31] MEDS: Polyethylene Glycol 3350 17 GM PACKET PO (10:57)
--- NOTE | 2024-10-31 13:57 | PGE_ITS ---
Date of Service Date of service: 10/31/24 Time of Service: 13:58 Assessment and Plan Assessment and plan (1) Weakness: Status: Acute Assessment and plan: Exact etiology is unknown although does appear to have a psychiatric component. I will check a mag level, Keppra level, B12 level, folate level, iron level, lead level, CK. Will also order a TSH. Continue with physical therapy. 10/28/24 Folate wnl/iron low normal/tsh elevated but FT4 wnl/b12 wnl lead and keppra pending as well as echo and BLE usn to rule out dvt 10/30/24 excerpt for ED documentation: Will reach out to hospitalist team with request for hospitalization given unsafe discharge in setting of bronchitis weakness. Dr. Cervantes PT Recommendations: SUBJECTIVE: She reports that she is very worried about being able to do the stairs at her home. c/o being light headed with ambulation. DISCHARGE RECOMMENDATION: [facility] vs supervised home setting It is my opinion that Ms Pacheco is not safe for dc at this time. If PT recommendations change, we can readdress the issue. Nothing significant has changed since admission, and I am not clear on what supervised home setting 10/31/24 Did discuss with PT (Mildred) who states that pt did better today, but recommendations from PT are the same. Hopefully, with continued PT, pt will be able to go home with [facility] including PT. (2) Nicotine dependence: Status: Chronic Assessment and plan: Continue with NicoDerm as needed. (3) Aortic root dilatation: Status: Acute Assessment and plan: Patient will need outpatient follow-up with her PCP and vascular surgery. IMPRESSION: 1. There is no evidence of a pulmonary embolism. 2. The ascending thoracic aorta measures 4.4 x 4.1 cm. 3. There are no acute pulmonary infiltrates. 4. There is mild bilateral bronchial wall thickening. This can be seen with bronchitis. Please correlate clinically. (4) Tachycardia: Status: Acute Assessment and plan: There is mention of A-fib but this is not improving. Considering her multiple falls would be hesitant to start her on anticoagulation unless it is proven to have A-fib. I will put her on telemetry and check a TSH. An echocardiogram is also pending. 10/30/24 Normal left ventricular wall thickness and chamber size. Ejection fraction is 60%. Wall motion is normal Normal right ventricular size and function Both atria are normal in size Aortic valve is calcified and trileaflet. There is mild to moderate aortic stenosis. Peak gradient is 37, mean 22 mmHg. Calculated aortic valve area is 1.8 cm?? .there is no aortic regurgitation (5) Depression: Status: Chronic Assessment and plan: Continue with medical management 10/31/24 Pt does present to me with depression. Pt will need optimization in the outpatient setting (6) Vitamin D deficiency: Status: Acute Assessment and plan: Multiple labs are pending. Patient does have an elevated MCV which makes vitamin deficiency certainly possible. (7) Esophageal stricture: Status: Acute Assessment and plan: Outpatient follow-up 10/30/24 Speech therapy consult has been placed, awaiting feedback Will change to pureed diet. [facility]: Reason for Referral/HPI: Josiane is a 69 y/o F with HIV, seizure disorder, esophageal stricture with prior dilations, who presents after a fall down some stairs at home, and with reported 1 month history of increased weakness, increased falls, and reduced appetite. Patient is concerned with weight loss, down about 30-40 lbs in several months. [facility] IMPRESSIONS & RECOMMENDATIONS: Do not appreciate any clinical sx significant for oral-pharyngeal component at this time, patient appears with largely esophageal dysphagia which is well documented at baseline. Her last dilation was 1 year ago with GI at [facility]. Her primary baseline complaint is with pills and other solid bolus, she describes a sensation of the pill sticking near the top of her chest, and she will cough to try to get this out, however, usually this is only productive of foamy secretions. With solids and purees this date, she reports sensation of proximal esophageal residue which is mildly painful, this improves somewhat with liquid wash. Self-feeding behaviors are mildly impulsive with large bite sizes. Patient appearing overall weak, slow, with delays, but overall safe swallow function. At baseline she has benefitted from liquid medication formulations in the past due to esophageal stricture. Discussed diet consistency options with the patient, she is interested in trying a pureed diet given her significant difficulty with solid foods. She would benefit from urgent GI referral for dilation given reported degree of weight loss. May also benefit from nutrition consult. (8) Chronic diarrhea: Status: Chronic Assessment and plan: Outpatient follow-up (9) Human immunodeficiency virus infection: Status: Chronic Assessment and plan: Continue with medical management and follow-up with ID. (10) Seizure disorder: Status: Chronic Assessment and plan: Patient does have significant history of seizure disorder including brain surgery. I will check a Keppra level. (11) S/P brain surgery: (12) Folate deficiency: Status: Acute Assessment and plan: In reviewing home labs her folate levels were as low as 2.6 with 8.6 being normal. Will recheck this level. This certainly could add to her feelings of weakness 10/30/24 folate level is greater than 20 (13) D-dimer, elevated: Status: Acute Assessment and plan: CT scan was negative for PE. I will order bilateral lower extremity ultrasounds to rule out DVTs. Patient is on Lovenox for DVT prophylaxis 10/30/24 BLEUSN is negative (14) Nausea & vomiting: Status: Acute Assessment and plan: scopolamine patch 10/31/24 Will also add zofran Subjective Subjective Interval history since last seen: Pt seen and examined in her room this am. pt did c/o of bilateral temporal headache as well as abdominal pain. Pt did have one episode of emesis this am. Pt states headache has been going on prior to her admission. Pt does not c/o vision changes or pain with mastication. Exam Narrative Exam Narrative: NCAT MMM NO RESPIRATORY DISTRESS 2/6 ZACHARY NO VISIBLE JVD WELL GROOMED NO AUDIBLE WHEEZE no TTP temporal bilat arteries Objective Last Vital Signs Temp 36.5 C 10/30/24 15:34 Pulse 85 10/31/24 07:42 Resp 16 10/31/24 07:42 BP 120/61 10/31/24 07:42 Pulse Ox 98 10/31/24 07:42 Laboratory Results - last 24 hr 10/28/24 10/31/24 06:50 06:04 WBC 5.76 RBC 2.57 L Hgb 8.7 L Hct 27.6 L MCV 107 H MCH 33.9 H MCHC 31.5 L RDW 13.5 Plt Count 282 MPV 8.5 Immature Gran % 0.3 Neutrophils % 65.6 Lymphocytes % 26.2 Monocytes % 5.6 Eosinophils % 1.4 Basophils % 0.9 Nucleated RBC % 0.0 Absolute Neutrophils 3.78 Absolute Lymphocytes 1.51 Absolute Monocytes 0.32 Absolute Eosinophils 0.08 Absolute Basophils 0.05 Sodium 142 Potassium 4.6 Chloride 110 H Carbon Dioxide 29.9 Anion Gap 2.1 L BUN 13 Creatinine 0.9 Est GFR (CKD-EPI 2020) 70.07 Glucose 102 Calcium 8.9 Total Bilirubin 0.2 AST 21 ALT 16 Alkaline Phosphatase 60 Total Protein 5.8 L Albumin 1.9 L Levetiracetam 9.3 L Venous Lead <2.0 Time Spent with Patient Time Spent with Patient: 25-34 minutes Time was spent: preparing to see the patient(eg.review tests), obtaining and/or reviewing separately otained hiistory, ordering medications,tests, procedures, referring, communicating with other health caretaker, indepentently interpreting results, counseling the patient and care coordination
--- NOTE | 2024-10-31 14:53 | PDOC.CMPRO ---
Date of service: 10/31/24 Time of Service: 14:53 Care Management Progress Note Progress Note Text Progress Note Text: Josiane was noted to be sitting on the side of the bed for breakfast this morning. CM requested with nursing that Josiane get out of bed for all meals. Josiane is still weak, and she is noted to have been sleeping a lot today. Her discharge is still on hold, per provider, as he feels that she is unsafe to go home. CM today approached Josiane about short term rehab, expressing the concerns of her provider and staff. When asked if she would be willing to go to short term rehab, she strongly stated, No, I would never step foot in one of those places. I want to go home. Referrals will not be sent. Message was left with the [facility] that Josiane will not be at home tomorrow for her appointment. Discharge Potential Discharge Needs: PCP F/U Appt (PCP F/U Appt (11/05 at 10:20, 11/19 at 2:10) and Other (vascular surgery referral)) Anticipated Barriers to Discharge: SDOH (pt unable to climb the stairs in her apartment building and difficulty obtaining food) Patient/Family Education Needs: Review discharge instructions, discuss Ask Me Three Transportation: [facility] (with lift assist) [facility] Transportation: Wheel chair van Plan: Anticipate that Josiane will discharge home with new services of [facility] RN, PT/OT. She will f/u with her PCP as above. She will transport home via [facility] and require a lift assist once home. CM will assure she has a to go bag of food from the cafeteria upon discharge. CM will continue to follow. Social Determinants of Health Screening Social Determinants of health last assessed in clinic: 10/31/24 Will the Patient Participate in the Screening?: Yes Do you worry about having a steady place to live?: yes What is your living situation today?: I have housing today, but am worried about losing it Problems where you live: no known problems In the past 12 months, have you had to go without electric, gas, oil or water in your home?: no 1. Within the past 12 months, we worried whether our food would run out before we got money to buy more.: Sometimes true 2. Within the past 12 months, the food we bought just didn't last and we didn't have money to get more.: Sometimes true Has lack of transportation kept you from medical appointments or from doing things needed for daily living?: yes Has anyone in your life made you feel unsafe or unsupported?: no How hard is it for you to pay for the very basics like food, housing, medical care, and heating? Would you say it is:: Somewhat hard Do you want help finding or keeping work or a job?: I do not need or want help If for any reason you need help with day-to-day activities such as bathing, preparing meals, shopping, managing finances, etc., do you get the help you need?: I could use a little more help How often do you feel lonely or isolated from those around you?: Always Do you speak a language other than [place] at home?: No Does the patient want assistance with any of the above?: No Health Related Social Needs Health related social needs: housing instability, housed, with risk of homelessness (Z59.811), food insecurity (Z59.41), transportation insecurity (Z59.82), problems related to housing/economic circumstances (Z59.89), problems with daily activities (Z73.9) and feeling lonely/isolated (Z60.8) Health related social needs details: Needing support with shopping for groceries
[2024-10-31] MEDS: Enoxaparin 40 MG/0.4 ML SYR SC (15:28)
[2024-10-31] MEDS: Mylanta Suspension 30 ML CUP PO (16:30)
[2024-10-31 17:14] LABS: ESR 47 mm/hr (0-30)
[2024-10-31 20:30] VITALS: BP 98/56; PULSE 72; RESP 16; TEMP 36.8; O2SAT 93
--- NOTE | 2024-11-01 | DI.CT_ITS ---
Exam(s) CT HEAD WO EXAM: CT HEAD WO CLINICAL HISTORY: fall, hit head. TECHNIQUE: Imaging Protocol: Axial computed tomography images with coronal and sagittal reformatted images were created and reviewed COMPARISON: CT HEAD WITHOUT CONTRAST from 07/14/2016 FINDINGS: Ventricles and Extra axial spaces: Normal in size and morphology for the patient's age. Hemorrhage: None. Cerebral parenchyma: No evidence of acute infarct or mass. A large area of encephalomalacia is again noted in the right temporal fossa. There is moderate to severe cerebral atrophy, disproportionate to the patient's age but relatively unchanged from the prior exam.. Midline shift: None. Brainstem/Cerebellum: Normal mild cerebellar atrophy. Bones: A right frontotemporal craniotomy is again noted. Visualized Paranasal sinuses:Clear. Mastoids: Clear. Soft Tissues: Unremarkable. ORBITS: Unremarkable. PITUITARY: Not enlarged. IMPRESSION: No acute intracranial process. RADIATION DOSE DELIVERED: 865.96mGy.cm Total DLP DATA REPOSITORY: All CT scans at this facility are submitted to the National Radiology Data Registry (NRDR) Dose Index Registry (DIR) with the [employer] ([employer]). RADIATION OPTIMIZATION: All CT scans at this facility use at least one of these dose optimization techniques: automated exposure control; mA and/or kV adjustment per patient size (includes targeted exams where dose is matched to clinical indication); or iterative reconstruction.
[2024-11-01 07:15] LABS: Abs Immature Grans 0.03 10^3/uL (0.0-0.06); HCT 27.7 % (36.0-46.0); HGB 8.8 g/dL (11.2-15.7); Immature Grans % 0.5 %; MCH 34.4 pg (27.0-33.0); MCHC 31.8 % (32.0-36.0); MCV 108 fL (80-95); MPV 8.6 fL (8.0-11.0); Platelet Count 314 10^3/uL (130-400); RBC 2.56 10^6/uL (3.93-5.22); RDW 13.6 % (11.7-14.6); RDW-SD 53.8 fL; WBC 5.79 10^3/uL (4.4-10.8)
[2024-11-01 07:36] LABS: ALT 13 U/L (14-59); AST 19 U/L (15-37); Albumin 1.9 g/dL (3.4-5.0); Alkaline Phosphatase 60 U/L (46-116); Anion Gap 6.1 mmol/L (3-11); BUN 14 mg/dL (7-18); Bilirubin, Total 0.3 mg/dL (0.2-1.0); CO2 27.9 mmol/L (21.0-32.0); Calcium 8.6 mg/dL (8.5-10.1); Chloride 109 mmol/L (98-107); Estimated GFR 80.71 (mL/min/1.73m2); Glucose 97 mg/dL (74-106); Potassium 4.2 mmol/L (3.5-5.1); Sodium 143 mmol/L (136-145); Total Protein 5.7 g/dL (6.4-8.2)
[2024-11-01 07:41] VITALS: BP 104/68; PULSE 76; RESP 17; TEMP 36.4; O2SAT 94
[2024-11-01] MEDS: Lacosamide 100 MG TAB 200 MG PO (07:44)
[2024-11-01] MEDS: Cyanocobalamin 500 MCG TAB 1000 MCG PO (07:45)
[2024-11-01] MEDS: levETIRAcetam 500 MG TAB PO (07:45)
[2024-11-01] MEDS: Magnesium Oxide 400 MG TAB PO (07:45)
[2024-11-01] MEDS: Ondansetron O.D.T. 4 MG TABEF PO (07:45)
[2024-11-01] MEDS: Multivitamin TAB 1 TAB PO (07:45)
[2024-11-01] MEDS: Potassium Chloride Liquid 20 MEQ PKT PO (07:46)
[2024-11-01 08:14] LABS: Macrocytosis 1+
--- NOTE | 2024-11-01 10:02 | PT.INTREAT ---
PT Notes Visit Reasons: Weakness Physical Therapy Inpatient Treatment Note Date: 11/01/2024 Precautions: Fall. Standard. Activity as tolerated. Subjective: She states she wants to go home but Complains of weakness and fatigue. Denies headache, chest pain, and dizziness throughout session. Does not feel safe getting up her three flights of steps to her apartment. Objective: General Observation: Seated in the chair Unkempt, hair dishevelled. Telemetry monitoring in place. Mental Status: Alert and oriented to person and place. Pain: pain in B calves after walking, cramping Bed Mobility/Transfers: Minimal cueing provided for use of B hands as needed for support, movement sequence, AD management, and posture to reduce fall risk and minimize pain report Supine to sit SBA with HOB at 30 degrees Sit to supine contact-guard assist Sit to stand contact-guard assist x 5 trails from chair with posterior weight shift resulting in need to sit and start again Stand to sit contact-guard assist x 5 trials Bed to chair contact-guard assist with FWW Gait: Guided patient through level surface ambulation of up to 200 feet x 2 using FWW with full weight bearing on bilateral lower extremities with CG assist. No episode of cross over stepping this session. pt noted with body orientation to right side of walker this session.Pt required cues to reduces speed and to keep FWW closer to her . Stairs: Up and down 2 x 6-inch steps and 6 x 4-inch steps while holding onto B rails x 2 trials with moderate verbal cueing needed for safe technique contact guard assist was provided. Balance: Static Sitting: Normal Dynamic Sitting: Normal Static Standing: Fair Dynamic Standing: Fair Therex:- pt requires cues to perform in slow eccentric control. and visual demonstration of proper technique Seated BLE exercises Marching x 10 reps, LAQ and PF/DF with knee extension. Pt requires rest between exercises. Assessment: Safety awareness impaired, impulsivity high, gait instability still evident. Patient demonstrates high risk for falls and inability to thrive independently at home. Risk for rehospitalization high. Had 2 episodes of R foot inadvertently crossing over the left foot which resulted to loss of balance to left she did not require assistance of this PT to regain. Unable to safely plan execution of movement, i.e., leaves walker to the side to sit down or go to bed, inconsistently able to maintain safe technique despite instructions given several times with sit<>stand which can increase fall risk. Pt able to perform the practice stairs with B rails and then continue ambulating with FWW with CGA . DISCHARGE RECOMMENDATIONS: Patient will benefit from retirement facility placement vs supervised home setting for continued skilled physical therapy services in order to progress mobility level, strength, and balance. Will benefit from the use of a front wheeled walker. TREATMENT CODE/TIME: 66475, [id number]/ [id number]
--- NOTE | 2024-11-01 11:24 | PDOC.HHF2F ---
Home Health Referral Home Health Orders Clinical synopsis of why skilled professionals are needed: generalized weakness, depression, aortic root dilation Physical Therapist: Check all that apply Increase strength & endurance for safe mobility at home: Ordered To design/establish home maintenance program: Ordered Fall reduction therapy program for patient with history of frequent falls: Ordered Home safety evaluation and teaching/gait training including stair management (if applicable): Ordered Mail Rider: Assist with community resources: Ordered Assist with termite exterminator helper care planning: Ordered Encounter Date and Reason: I certify that a FTF encounter for this patient was performed on November 01, 2024 and that such encounter was related to the primary reason the patient requires home health services. The encounter was conducted in the following manner: By me as the certifying physician, MEDICAL OFFICE SCHEDULER, PA or By an inpatient physician, MEDICAL OFFICE SCHEDULER or PA during an inpatient stay who communicated findings to me, Certification And Authentication I certify that I composed the above information based on my clinical judgment relating to this patient's medical condition and, if applicable, clinical findings communicated to me by the NPP or inpatient physician who performed the FTF encounter. Name of Provider that will be monitoring home health services: April Hutson
--- NOTE | 2024-11-01 11:25 | DSE_ITS ---
Date of service: 11/01/24 Time of Service: 11:25 DS: Diagnosis Discharge Diagnosis (1) Weakness: Status: Acute (2) Nicotine dependence: Status: Chronic (3) Aortic root dilatation: Status: Acute (4) Tachycardia: Status: Acute (5) Depression: Status: Chronic (6) Vitamin D deficiency: Status: Acute (7) Esophageal stricture: Status: Acute (8) Chronic diarrhea: Status: Chronic (9) Human immunodeficiency virus infection: Status: Chronic (10) Seizure disorder: Status: Chronic (11) S/P brain surgery: (12) Folate deficiency: Status: Acute (13) D-dimer, elevated: Status: Acute (14) Nausea & vomiting: Status: Acute Discharge Plan Disposition Patient Disposition: Home W/Home Health Services Condition: Good Discharge Details Reason For Visit: Weakness Admit Date/Time: 10/27/24 15:25 Admit Provider: South Jaime Attending Provider: South Jaime Primary Care Provider: April Hutson V Hospital Course Hospital Course: Patient initially presented with weakness. However, patient was at her [facility], and had worked with physical therapy. They stated that given that she was at her baseline she could be discharged home with home health services. Ultimately, was determined the patient was stable for discharge home in the morning of 11/01/2024. However, after patient's discharge order was placed as she was getting dressed she fell and hit her head in the room. She sustained a very small laceration to her right frontal lobe that stopped bleeding on its own and was less than 1 cm in size. She had a head CT that did not show any acute findings. Given that the patient had a fall it was offered that she could stay an additional night for observation, however the patient was adamant that she be discharged home, and continue to reiterate that despite recommendations she refused to go to subacute rehab facility. Home Meds and New Rx's Prescriptions: Continued clonazepam 1 mg tablet,disintegrating 1 mg PO BID Qty: 60 2RF Rx Instructions: ODT only due to severe dysphagia cyanocobalamin (vitamin B-12) 1,000 mcg tablet 1,000 mcg PO DAILY Rx Instructions: [place]20[place] [facility] [place] levetiracetam [Keppra] 500 mg tablet 500 mg PO BID potassium chloride 20 mEq/15 mL liquid 20 meq PO DAILY Patient Comments: TAKE 15ML BY MOUTH EVERY DAY FOR LOW POTASSIUM magnesium oxide 250 mg magnesium tablet 250 mg PO DAILY Patient Comments: TAKE ONE TABLET BY MOUTH EVERY DAY FOR LOW MAGNESIUM lacosamide 200 mg tablet 200 mg PO BID Patient Comments: TAKE ONE TABLET BY MOUTH TWICE A DAY Cabenuva 600 mg/3 mL- 900 mg/3 mL suspension,extended release 6 ml IM .every 2 months meloxicam 7.5 mg tablet 7.5 mg PO BID PRN (Reason: pain) Discharge Instructions Stand Alone Forms: Nursing Discharge Form Referrals: April Hutson MD [Primary Care Provider, Medicine] - 11/05/24 10:50 am Referral Note: Also a new patient appointment with same on 11/19 @ 2:10 P.M. RCT will call you set up a brain picker time Activity:: Activity as Tolerated Equipment/Supplies:: No Equipment Needed Diet:: As Tolerated Discharge Orders Discharge Orders: Discharge Order (Routine); Ordered 11/01/24 Ordered By: Kole Brooks Discharge Data Discharge Date/Time-TO BE ENTERED AT DEPARTURE: 11/01/24 14:26 DS: Summary Time Spent with Patient providing and/or coordinating discharge services: Greater than 30 minutes Status at Discharge Functional status at discharge: independent ambulation Overall status at discharge: patient is back to baseline Mental Status: mental status grossly normal Speech and Movement: speech and movement normal Mood: congruent mood Affect: normal affect Quality:SDOH Health Related Social Needs: Health related social needs risk of homeless food inse curity transpo insecurity house/econ circumstance daily activities lonely/isolated Health related social needs details Needing support wi shopping for groceries Health related social needs details: Needing support with shopping for groceries Exam Psych Mental Status: mental status grossly normal Speech and Movement: speech and movement normal Mood: congruent mood Affect: normal affect DS: Data Vitals/I&O Vitals and I&O: Vital Signs Temperature 97.5 F L 11/01/24 07:41 Temperature Source Temporal Artery Scan 11/01/24 07:41 Pulse 76 11/01/24 07:41 Pulse 104 H 10/27/24 16:30 Respiratory Rate 17 11/01/24 07:41 Respiratory Effort Normal 10/27/24 17:10 Respiratory Depth Normal 10/27/24 17:10 Respiratory Pattern Normal 10/27/24 17:10 Blood Pressure 104/68 11/01/24 07:41 Blood Pressure Mean 80 11/01/24 07:41 Pulse Oximetry 94 11/01/24 07:41 Oxygen Delivery Method Room Air 11/01/24 07:41 Oxygen Flow Rate 0 11/01/24 07:41 Pain Level 0 11/01/24 07:41 Comment Letting RN know of pain level 10/30/24 07:27 Intake & Output 10/31/24 11/01/24 11/01/24 17:59 05:59 17:59 Intake Total 440 / 440 Output Total 200 / 200 Balance 240 / 240 Weight 164 lb 3.91 oz Intake: Oral 440 / 440 Output: Urine 200 / 200 Other: Urine Color Yellow Yellow Urine Appearance Clear Clear Urine Odor Normal Comment Pt voided to toilet, not measured. in toilet no hat Data Completed and Pending Labs on day of discharge: Labs from last 24 hours 11/01/24 10/31/24 06:26 16:55 WBC 5.79 RBC 2.56 L Hgb 8.8 L Hct 27.7 L MCV 108 H MCH 34.4 H MCHC 31.8 L RDW 13.6 Plt Count 314 MPV 8.6 Immature Gran % 0.5 Neutrophils % 68.4 Lymphocytes % 23.3 Monocytes % 5.5 Eosinophils % 1.4 Basophils % 0.9 Nucleated RBC % 0.0 Absolute Neutrophils 3.96 Absolute Lymphocytes 1.35 Absolute Monocytes 0.32 Absolute Eosinophils 0.08 Absolute Basophils 0.05 RBC Morphology See Below Macrocytosis 1+ ESR 47 H Sodium 143 Potassium 4.2 Chloride 109 H Carbon Dioxide 27.9 Anion Gap 6.1 BUN 14 Creatinine 0.8 Est GFR (CKD-EPI 2020) 80.71 Glucose 97 Calcium 8.6 Total Bilirubin 0.3 AST 19 ALT 13 L Alkaline Phosphatase 60 Total Protein 5.7 L Albumin 1.9 L PFSH All Active Problems (Updated 10/29/24 @ 18:27 by South Jaime MD) Nausea & vomiting (Acute) D-dimer, elevated (Acute) Folate deficiency (Acute) Macrocytic anemia (Acute) Bronchitis (Acute) Tachycardia (Acute) Weakness (Acute) Aortic root dilatation (Acute) Acute hypokalemia (Acute) Gastroenteritis and colitis, viral (Acute) Diarrhea (Acute) Peptic stricture of esophagus (Acute) 11/22/22 dilated at GI Partial epilepsy with impairment of consciousness, intractable (Acute) Housing or economic problem (Acute) AIDS (Acute) Family estrangement (Chronic) cut of from sister and son Aunt Alyssa Lund only family in touch Chronic diarrhea (Chronic) Seizure disorder (Chronic) complex partial seizures Goals of care, counseling/discussion (Acute) wants aggressive care would want chemo and surgery Full code status (Chronic) wants aggressive treatment for all health issues Colonic thickening (Acute) Diverticula of colon (Acute) Diarrhea (Acute) Renal cyst (Acute) Abnormal CT of the abdomen (Chronic) Electrolyte depletion (Acute) Pancytopenia (Acute) Colitis, acute (Acute) Esophagitis determined by biopsy (Chronic) [place] [facility] [place] 02/05/20, repeat 6 mos or sooner prn. Dysphagia (Acute) Esophageal stricture (Acute) [place] [facility] [place] moderate distal esophageal stenosis by UGI. Balloon dilation to 15mm. Mild cognitive impairment (Acute) Insomnia (Chronic) Medication overuse headache (Chronic) Migraine headache with aura (Chronic) Focal epilepsy with impairment of consciousness, intractable (Chronic) Vitamin D deficiency (Acute) Temporal sclerosis (Acute) Anxiety (Chronic) Gastroesophageal reflux disease with esophagitis (Acute 02/10/12) LA grade D esophagitis [place] [facility] [place] [place]-benign appearing esophageal stenosis 01/14/20-Upper GI endoscopy-biopsies taken HH (hiatus hernia) (Acute 10/16/15) [place] Ramesh Johnson, [facility] [place] [facility] [place]GI [place]/03[place] [place] 2 cm Human immunodeficiency virus infection (Chronic 02/26/90) Dr. Antony Myers, DO, [facility] ID CD 4 count improved 07/17 Hyperlipidemia (Acute 02/10/12) Nicotine dependence (Chronic 10/15/13) not interested in quitting Rosacea (Acute 07/17/12) dr lopez Tubular adenoma of colon (Acute 05/08/10) Colon polyposis (Chronic) Anal fissure (Chronic) Dysphagia (Chronic) Hyperlipidemia (Chronic) Depression (Chronic) Medical History Left-sided weakness subjective, not objectively confirmed Unintentional weight loss Palliative care patient Weight loss Pruritus Hx of meningitis Seizures, generalized convulsive Surgical History H/O endoscopy (~11/22/22) 03/03/23-dilation performed. path: mid esophagus bx, (multiple): Esophageal squamos mucosa with reactive changes. 09/28/2342-[place]-caxostrp of recurrent strictures S/P brain surgery temporal lobectomy for refractory epilepsy Endoscopy (10/16/15) Dr Ramesh Johnson [facility] [place] [facility] [place] esophagus with crepe paper appearance with distal rings s/p dilation to 15 mm Colonoscopy - MAC (12/09/13) per Dr. Wren , hemorroids banded, 3 polyps biopsied Family History Sister Headache Family estrangement Mother , age 87 from lung cancer Lung cancer Father Parent-child estrangement nec Son Parent-child estrangement nec Aunt Health care proxy on file Social History Smoking/Tobacco Use Status: Current every day Tobacco Type: cigarettes Tobacco: How many years used: 45 Smoking risk assessment performed?: Yes Alcohol Intake: former Year quit: 2019 Drug use: Never Substance use type: does not use Details: smokes 4 packs per week no alcohol for over 3 months Caregiver/Support person: No Household members: none Housing: apartment Number of Children: 1 Education Level: high school Do you need help understanding health information?: Always current occupation: disabled Do you think of yourself as: straight/heterosexual What is your relationship status?: How often do you talk on the phone with friends or family?: never How often do you get together with friends or relatives?: three or more times per week Panel score (0-1 are the most socially isolated patients): 1 What type of physical activity do you participate in: walking and independent ambulation Duration: 15-30 minutes/day Frequency: daily Special kingsley needs: No Agree to transfusion: Yes Seatbelt use: always Helmet use: Yes Drive intox or ride w/intox 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 - As of spring 2020, able to go up and down steep stairs, walk up steep hill. Doing much better re: strength and stamina. In October, reported numerous housing issues: ceiling in living room fell in, hastily and messily patched. Moisture palpable around top of diaz, where they meet ceiling. Josiane reports both mold and electricity issues. She was very agitated over her living situation. Says neighbors have walked into her home while she was across the street. Used to leave house unlocked. No longer does. Altercation with landlord. Still loves the 6 yo girl who lives next door, but doesn't like interacting with her parents. Doesn't feel safe at home. Interested in bird-watching. Involved with Cory. She is fully vaccinated now against COVID-19--had her booster on 10/28/20. We did call [facility] while I was present. [facility]lem will help her with housing. Advised Josiane needs to move [facility] for both her physical and mental health. Time Spent with Patient Time Spent with Patient: <45 minutes Time was spent: preparing to see the patient(eg.review tests), obtaining and/or reviewing separately otained hiistory, ordering medications,tests, procedures, referring, communicating with other health critical care transport nurse, indepentently interpreting results, counseling the patient and care coordination
--- NOTE | 2024-11-01 12:48 | CMDISCH_ITS ---
Date of service: 11/01/24 Time of Service: 12:50 LACE Index Scoring Tool Questions: Length of Stay (in days): 4 - 6 Was the patient admitted via the E.D.?: Yes Comorbidities: AIDS E.D. Visits: 2 Answers: Total Score: 14 Risk of Readmission: High Risk Care Management Discharge Plan Reason for Hospitalization: weakness Discharge Plan: Josiane is discharging home with new HH services of PT/OT. She will f/u with her new PCP on 11/05 and again on 11/19. Transportation has been arranged via [facility] for these rides. PCP office has been notified that she will need a lift assist when she returns from her rides. [employer] is already involved with options planning, and Josiane is close to being approved for [employer], [employer] has also been referred to for assistance with groceries and companionship. Josiane will transport home today via [facility] private vehicle, and a lift assist has been arranged to get her into her home. Patient/Family Education Needs: Review of discharge instructions, activity, limitations, and discuss ask me 3. Services Needed at Discharge: Home Health Care Services (PT/OT) SDOH Health Related Social Needs: Health related social needs risk of homeless food inse curity transpo insecurity house/econ circumstance daily activities lonely/isolated Health related social needs details Needing support wi th shopping for groceries Health related social needs details: Needing support with shopping for groceries
[2024-11-01 12:50] VITALS: BP 127/71; PULSE 76; RESP 17; TEMP 36.4; O2SAT 94
[2024-11-01 12:57] VITALS: BP 127/71
--- NOTE | 2024-11-01 13:35 | OTIE_ITS ---
Occupational Therapy Notes Inpatient Occupational Therapy Evaluation Date: 11/01/24 Referring Doctor: Dr. Jaime OT Orders: Non urgent Precautions: Fall, Standard PATIENT PROFILE/ADMITTING DIAGNOSIS: Pt is a 69 year old female who was admitted to Med Surg with the dx of worsening confusion, weakness, gait instability resulting to a fall, shortness of breath, vomiting, and diarrhea. Past Medical History: All Active Problems (Updated 10/27/24 @ 15:43 by South Jaime MD) D-dimer, elevated (Acute) Folate deficiency (Acute) Macrocytic anemia (Acute) Bronchitis (Acute) Tachycardia (Acute) Weakness (Acute) Aortic root dilatation (Acute) Acute hypokalemia (Acute) Gastroenteritis and colitis, viral (Acute) Diarrhea (Acute) Peptic stricture of esophagus (Acute) 11/22/22 [facility] with impairment of consciousness, intractable (Acute) Housing or economic problem (Acute) AIDS (Acute) Family estrangement (Chronic) cut of from sister and son Aunt Alyssa Lund only family in touchChronic diarrhea (Chronic) Seizure disorder (Chronic) complex partial seizuresGoals of care, counseling/discussion (Acute) wants aggressive care would want chemo and surgeryFull code status (Chronic) wants aggressive treatment for all health issuesColonic thickening (Acute) Diverticula of colon (Acute) Diarrhea (Acute) Renal cyst (Acute) Abnormal CT of the abdomen (Chronic) Electrolyte depletion (Acute) Pancytopenia (Acute) Colitis, acute (Acute) Esophagitis determined by biopsy (Chronic) 01/22/20 at [facility], repeated endoscopy 02/05/20, repeat 6 mos or sooner prn.Dysphagia (Acute) Esophageal stricture (Acute) 02/05/20 [facility] [place] - moderate distal esophageal stenosis by UGI. Balloon dilation to 15mm.Mild cognitive impairment (Acute) Insomnia (Chronic) Medication overuse headache (Chronic) Migraine headache with aura (Chronic) Focal epilepsy with impairment of consciousness, intractable (Chronic) Vitamin D deficiency (Acute) Temporal sclerosis (Acute) Anxiety (Chronic) Gastroesophageal reflux disease with esophagitis (Acute 02/10/12) LA grade D esophagitis Upper GI ednoscopy 06/23/15 at [facility] [place] 07[place] [place] GI endoscopy-benign appearing esophageal stenosis 01/14/20-Upper GI endoscopy-biopsies taken HH (hiatus hernia) (Acute 10/16/15) Dr Ramesh Johnson, [facility] 02/05/20 [facility] [place] 4 cm by UGI 03/03/23-[facility] upper GI Endo 2 cm Human immunodeficiency virus infection (Chronic 02/26/90) Dr. Antony Myers, DO, [facility] ID CD 4 count improved 07/17Hyperlipidemia (Acute 02/10/12) Nicotine dependence (Chronic 10/15/13) not interested in quittingRosacea (Acute 07/17/12) dr lopez Tubular adenoma of colon (Acute 05/08/10) Colon polyposis (Chronic) Anal fissure (Chronic) Dysphagia (Chronic) Hyperlipidemia (Chronic) Depression (Chronic) Medical History Left-sided weakness subjective, not objectively confirmedUnintentional weight loss Palliative care patient Weight loss Pruritus Hx of meningitis Seizures, generalized convulsive Surgical History H/O endoscopy (~11/22/22) 03/03/23-dilation performed. path: mid esophagus bx, (multiple): Esophageal squamos mucosa with reactive changes. 09/28/2309-KP-ekfufjnl of recurrent stricturesS/P brain surgery temporal lobectomy for refractory epilepsyEndoscopy (10/16/15) Dr Ramesh Johnson [facility] 04/21/20 [place] End[place] [facility] [place]. esophagus with crepe paper appearance with distal rings s/p dilation to 15 mmColonoscopy - MAC (12/09/13) per Dr. Wren , hemorroids banded, 3 polyps biopsied Social History/Home Situation: Pt was unable to provide a significant home situation to OT just repeated that she wanted to return home as soon as possible. 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 Equipment owned/DME: [facility] SUBJECTIVE: Pt was sitting in chair when OT arrived with nursing in her room. Nursing noted that pt had hit her head it is unclear as to if this was recently or prior. Pt states that she is wanting to go home. She was packed up but agreeable to going over assessment of adaptive equipment needs before she left. OBJECTIVE: General Observation: Pleasant, anxious Mental Status: A&ox3 Pain: c/o pain in head she states that her head hurts ROM: RUE AROM WFL L UE AROM WFL STRENGTH: RUE 3+/5 throughout LUE 4/5 throughout FUNCTIONAL MOBILITY/ADLS: Transfers with (S) BATHING standing at sink with max (A) set up Bathing UE (I) washing face and (B) UE. She denies LE Bathing LE NT DRESSING seated in chair Dressing UE (I) don and doffing shirt Dressing LE (I) don and doffing shoes. Pt states that she does not wear socks GROOMING Standing at sink (I) TOILETING NT EATING NT BALANCE: Static sitting Good Dynamic Sitting Good Static Standing Good Dynamic Standing Good SPECIAL TESTS: Daily Activity Limitations Standardized Measure [facility] AM -PAC ?6 clicks? Daily Activity Inpatient Short Form: Raw score: 21 Standardized score: 44.27 CMS score: 32.79% INFORMED CONSENT/EDUCATION: Pt instructed in purpose of OT Consult and plan of care. ASSESSMENT: Patient is a 69-year-old female referred to occupational therapy services with diagnosis of worsening confusion, weakness, gait instability resulting to a fall, shortness of breath, vomiting, and diarrhea. Patient presents with clinical signs and symptoms consistent with dx. She is getting ready to discharge today. OT and pt went over adaptive equipment that OT has for increased safety and (I) with ADL routines which pt denies. She notes that she is interested in HH services but overall feels like she is just ready to go home. Patient is assessed as a Low [id number] complexity based on the following: History: see above Examination: see functional limitationsd as noted above Presentation: evolving Decision Making: [facility] score 21 GOALS N/A seen for OT consult only. PLAN OF CARE/TREATMENT PLAN: Discharge from skilled OT services. DISCHARGE RECOMMENDATIONS OT recommends that pt return home with HH OT for increased (I) and safety in the home setting. TREATMENT TIME/MINUTES/CODES 50236, 20 minutes [facility] [place], [place]
== END 2024-11-01 14:26 | disposition home health service (06) ==
LOC: ER 15:21 → MS 16:40
PROVIDERS: Admitting Provider Hospitalist; Emergency Provider Emergency Medicine; PCP Family Medicine; Responsible Provider Family Medicine; Visit Provider Hospitalist
DX: R53.1 Weakness (principal); I77.810 Thoracic aortic ectasia; R00.0 Tachycardia, unspecified; K22.2 Esophageal obstruction; B20 Human immunodeficiency virus [HIV] disease; E53.8 Deficiency of other specified B group vitamins; R79.1 Abnormal coagulation profile; R29.6 Repeated falls; D53.9 Nutritional anemia, unspecified; E87.6 Hypokalemia; G40.109 Localization-related (focal) (partial) symptomatic epilepsy and epileptic syndromes with simple partial seizures, not intractable, without status epilepticus; K21.00 Gastro-esophageal reflux disease with esophagitis, without bleeding; E78.5 Hyperlipidemia, unspecified; G43.109 Migraine with aura, not intractable, without status migrainosus; F32.A Depression, unspecified; Z79.899 Other long term (current) drug therapy; K52.9 Noninfective gastroenteritis and colitis, unspecified; K57.30 Diverticulosis of large intestine without perforation or abscess without bleeding; W10.9XXA Fall (on) (from) unspecified stairs and steps, initial encounter; F17.210 Nicotine dependence, cigarettes, uncomplicated; Z59.89 Other problems related to housing and economic circumstances; S01.01XA Laceration without foreign body of scalp, initial encounter
CPT/HCPCS: 00123; 36415; 71275; 80048; 80053; 82550; 83690; 85652; 87637; 93005; 93306; 96372; 97110; 97162; 97165; 97530; 99285; J1650; 70450; 71045; 80177; 82607; 82746; 83540; 83550; 83655; 83735; 84439; 84443; 84484; 85025; 85379; 93010; 93970; 99222; 99231; 99232; 99238; G0378; J3490

== ENCOUNTER 2024-11-18 15:52 | Outpatient (REF) | payer MEDICARE, MEDICAID, SELFPAY ==
[2024-11-18 15:40] LABS: Abs Immature Grans 0.02 10^3/uL (0.0-0.06); HCT 36.4 % (36.0-46.0); HGB 11.3 g/dL (11.2-15.7); Immature Grans % 0.3 %; MCH 32.9 pg (27.0-33.0); MCHC 31.0 % (32.0-36.0); MCV 106 fL (80-95); MPV 9.2 fL (8.0-11.0); Platelet Count 400 10^3/uL (130-400); RBC 3.43 10^6/uL (3.93-5.22); RDW 13.8 % (11.7-14.6); RDW-SD 54.1 fL; WBC 7.42 10^3/uL (4.4-10.8)
[2024-11-18 16:22] LABS: Macrocytosis 1+
[2024-11-18 16:48] LABS: Anion Gap 10.0 mmol/L (3-11); BUN 7 mg/dL (7-18); CO2 28.0 mmol/L (21.0-32.0); Calcium 9.3 mg/dL (8.5-10.1); Chloride 102 mmol/L (98-107); Estimated GFR 80.71 (mL/min/1.73m2); Glucose 80 mg/dL (74-106); Magnesium 1.8 mg/dL (1.8-2.4); Potassium 4.2 mmol/L (3.5-5.1); Sodium 140 mmol/L (136-145)
[2024-11-18 16:49] LABS: Ferritin 1328 ng/mL (8-252)
[2024-11-19 14:36] LABS: CD3 87 % (56-84); CD4 6 % (31-64); CD8 81 % (9-39)
== END 2024-11-18 15:53 | disposition home or self-care (01) ==
LOC: NCHCN 15:52
PROVIDERS: PCP Family Medicine; Visit Provider Family Medicine
DX: B20 Human immunodeficiency virus [HIV] disease (principal)
CPT/HCPCS: 80048; 82728; 83735; 85025; 86359; 86360

== ENCOUNTER 2024-11-26 15:56 | Outpatient (CLI) | payer MEDICARE, MEDICAID, SELFPAY ==
--- NOTE | 2024-11-26 15:58 | W.CCNOTE ---
Comprehensive Care Clinic Note Note: Comprehensive Care Clinic Note [facility] [address] [place] [address] [facility] Visit for Medical Follow Up Name: Josiane Pacheco Date of : 1955 Primary Care Provider: Dr. Nancy Hutson Date of Service: 11/26/2024 SUBJECTIVE CC: Josiane has been feeling very weak and has not gained much in strength since her D/C from [facility] earlier this month where she was hospitalized for hypokalemia and hypomagnesemia and failure to thrive. She had been so weak that she was falling and has not been able to get out of her apartment. She says she cannot manage the stairs from and back to her 3rd floor apartment. HPI: Josiane has a H/O esophageal stricture and inability to swallow or keep down po HIV medications. She transitioned to injectable HIV meds 06/26/2023 and has had no adverse side effects. She states she feels well and has very little injection site soreness. Her lab work has continued to show an undetectable VL. Her CD4 count was repeated this fall and was 151. She is no linger taking PJP prophylaxis. She also says she has very little food and cannot get out to shop. We called Sally from [facility] and she will come over on Monday and do a food shopping for her. 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 Musculoskeletal: Denies joint and back pain Endocrine: No polyuria, polydipsia; heat or cold intolerance Lymphatic: Has not noted any enlarged nodes Hematologic: No unusual bleeding, bruising Immunologic: Will be due for repeat lab work for CD4 and HIV RNA PCR in the early spring Neurological: Had a few seizures in late July and early August, no seizures since Dr. Wills changed some of the doses of her medications. She will get “auras”. 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 She denies and active suicidal ideation/plan but states she does not want to be alive anymore. She is willing to continue to have the Cabenuva shots every 2 months. Allergies/Sensitivities: NKDA Current Medications: Cabenuva (Cabotegravir/Raltegravir) Bactrim Suspension Antiseizure medications as RXd by Satya Wills MD, [facility] Neuro Medical / Surgical History Update: Nothing new Psychiatric History Update: Very depressed and feeling hopeless Social History Update: Nothing significant. Employment: Disabled Health Insurance: [employer], Medicaid Substance Use: Tobacco: says she quit ETOH: Denies Drug Use: Denies Family History Update: Nothing new Immunization Needed? Getting at PCP if she is able to go there Health Maintenance: Getting at PCP when she is able to go there OBJECTIVE NO scale to weight her during the home visit Temp: 98.9, Pulse: 90, Respirations: 20, Blood Pressure: 100/66 General: WDWNL appearing pale and ill Skin: pale, W/D, no rash Head: NCAT Eyes: non icteric Ears, Nose, Mouth: NE Teeth: Missing teeth Neck: Supple, Thyroid non palp, no swelling/crepitus Chest: Full, equal expansion, Lungs clear on all lobes CV: RRR, No MCRG, extremity pulses 2/4 w symmetry Abdomen: NABS, ND, NT, No OGM or masses felt, No Bruits : NE Neuro: Gait strong and steady, there is a fine intention tremor, Strength 5/5 all extremities, DTRs 2/4 Lymphatic: No palpable enlarged nodes Ortho: FROM all joints w/o swelling or erythema Psychiatric: Mood is depressed, affect flat, eye contact poor ASSESSMENT/PLAN – HIV/AIDS – Undetectable with long acting injectable medication and off PJP prophylaxis. Cabenuva injections to be continues to be administered IM and next injections are due next week. MD visit scheduled: had a telehealth visit w Dr. Myers yesterday and will be due in 6 months, sooner prn Lab work ordered: UTD Electrolyte imbalance -She continues the po Mag and K+. PCP will monitor levels.Vag D/C w reddish brown tinge and periods of acute lower abdominal pain. And Abdominal US is ordered for next , 12/05/24 when she is also to have a PCP appointment and get the Cabenuva injections. None of this may be possible as ordered and scheduled due to her debilitated state as she is unable to walk down the stairs. Will contact Dr. Hutson and discuss alternative plan, particularly for the Cabenuva injections which will be couriered to from [facility]. I will let Josiane know the plan. Provider of Care: Brittanie Pina, MSN, TECHNICAL SALES DIRECTOR
== END 2024-11-26 15:57 | disposition home or self-care (01) ==
LOC: CCC 15:57
PROVIDERS: PCP Family Medicine; Visit Provider Nurse Practitioner Family
DX: B20 Human immunodeficiency virus [HIV] disease (principal); Z79.899 Other long term (current) drug therapy
CPT/HCPCS: 99214